=== PATIENT | male | born 2000 | race African-American/Black ===

== ENCOUNTER 2023-04-16 11:56 | Outpatient (OUT) | payer MEDICARE, MEDICAID, SELFPAY ==
[2023-04-16 12:46] LABS: Basophils Percent Auto 0.5 % (0.2-2.0); Eosinophils Percent Auto 0.3 % (0.9-7.0); Hematocrit 32.7 % (42.0-54.0); Hemoglobin 8.5 g/dL (14.0-18.0); Immature Granulocytes Abs Auto 0.02 10^3/uL (0.00-0.03); Immature Granulocytes Pct Auto 0.2 % (0.0-0.5); Lymphocytes Absolute Auto 1.8 10^3/uL (1.2-3.8); Lymphocytes Percent Auto 20.7 % (20.5-60.0); Mean Corpuscular Hemoglobin 15.6 pg (25.9-34.0); Mean Platelet Volume 9.3 fL (9.5-13.5); Monocytes Absolute Auto 0.9 10^3/uL (0.3-0.8); Monocytes Percent Auto 10.2 % (1.7-12.0); Neutrophils Percent Auto 68.1 % (43.0-75.0); Platelet Count 405 10^3/uL (150-450); Red Blood Count 5.44 10^6/uL (4.70-6.10); White Blood Count 8.9 10^3/uL (4.0-11.0)
[2023-04-16 12:59] LABS: Mean Corpuscular Volume 60.1 fL (80.0-94.0); Red Cell Distribution Width 22.6 % (11.0-15.0)
== END 2023-04-16 11:57 ==
LOC: LAB 12:01
PROVIDERS: PCP Family Medicine
DX: Z79.899 Other long term (current) drug therapy (principal)
CPT/HCPCS: 36415; 85025

== ENCOUNTER 2023-05-14 09:09 | Outpatient (OUT) | payer MEDICARE, MEDICAID, SELFPAY ==
[2023-05-14 10:25] LABS: Hematocrit 33.2 % (42.0-54.0); Hemoglobin 8.7 g/dL (14.0-18.0); Mean Corpuscular HGB Conc 26.2 g/dL (29.9-35.2); Mean Corpuscular Hemoglobin 15.7 pg (25.9-34.0); Mean Corpuscular Volume 59.9 fL (80.0-94.0); Platelet Count 377 10^3/uL (150-450); Red Blood Count 5.54 10^6/uL (4.70-6.10); Red Cell Distribution Width 22.2 % (11.0-15.0); White Blood Count 4.6 10^3/uL (4.0-11.0)
[2023-05-14 10:46] LABS: Eosinophils Absolute Manual 0.04 10^3/uL (0.00-0.70); Lymphocytes Absolute Manual 0.82 10^3/uL (1.20-3.80); Monocytes Absolute Manual 0.55 10^3/uL (0.30-0.80); Segmented Neut Absolute Manual 3.08 10^3/uL (1.4-6.5)
[2023-05-14 10:47] LABS: Acanthocytes 1+; Anisocytosis 2+; Hypochromasia 3+; Microcytosis 3+; Ovalocytes 2+
== END 2023-05-14 09:10 | disposition home or self-care (01) ==
LOC: LAB 09:11
PROVIDERS: PCP Family Medicine
DX: Z79.899 Other long term (current) drug therapy (principal)
CPT/HCPCS: 36415; 85007; 85025; 85027

== ENCOUNTER 2023-06-18 10:48 | Outpatient (OUT) | payer MEDICARE, MEDICAID, SELFPAY ==
[2023-06-18 11:33] LABS: Basophils Percent Auto 0.4 % (0.2-2.0); Eosinophils Percent Auto 0.2 % (0.9-7.0); Hematocrit 31.6 % (42.0-54.0); Hemoglobin 8.2 g/dL (14.0-18.0); Immature Granulocytes Abs Auto 0.02 10^3/uL (0.00-0.03); Immature Granulocytes Pct Auto 0.4 % (0.0-0.5); Lymphocytes Absolute Auto 0.9 10^3/uL (1.2-3.8); Lymphocytes Percent Auto 16.3 % (20.5-60.0); Mean Corpuscular HGB Conc 25.9 g/dL (29.9-35.2); Mean Platelet Volume 9.9 fL (9.5-13.5); Monocytes Absolute Auto 0.6 10^3/uL (0.3-0.8); Monocytes Percent Auto 11.4 % (1.7-12.0); Neutrophils Absolute Auto 3.9 10^3/uL (1.4-6.5); Neutrophils Percent Auto 71.3 % (43.0-75.0); Platelet Count 365 10^3/uL (150-450); Red Blood Count 5.13 10^6/uL (4.70-6.10); White Blood Count 5.5 10^3/uL (4.0-11.0)
[2023-06-18 11:37] LABS: Mean Corpuscular Volume 61.6 fL (80.0-94.0); Red Cell Distribution Width 22.6 % (11.0-15.0)
== END 2023-06-18 10:49 | disposition home or self-care (01) ==
PROVIDERS: PCP Family Medicine
DX: Z79.899 Other long term (current) drug therapy (principal)
CPT/HCPCS: 36415; 85025

== ENCOUNTER 2023-07-28 15:38 | Outpatient (OUT) | payer MEDICARE, MEDICAID, SELFPAY ==
[2023-07-28 16:18] LABS: Basophils Percent Auto 0.4 % (0.2-2.0); Eosinophils Percent Auto 0.6 % (0.9-7.0); Hematocrit 33.6 % (42.0-54.0); Hemoglobin 8.7 g/dL (14.0-18.0); Immature Granulocytes Abs Auto 0.01 10^3/uL (0.00-0.03); Immature Granulocytes Pct Auto 0.1 % (0.0-0.5); Lymphocytes Absolute Auto 1.6 10^3/uL (1.2-3.8); Lymphocytes Percent Auto 22.9 % (20.5-60.0); Mean Corpuscular HGB Conc 25.9 g/dL (29.9-35.2); Mean Platelet Volume 8.9 fL (9.5-13.5); Monocytes Absolute Auto 0.7 10^3/uL (0.3-0.8); Monocytes Percent Auto 10.6 % (1.7-12.0); Neutrophils Absolute Auto 4.5 10^3/uL (1.4-6.5); Neutrophils Percent Auto 65.4 % (43.0-75.0); Platelet Count 355 10^3/uL (150-450); Red Blood Count 5.41 10^6/uL (4.70-6.10); Red Cell Distribution Width 21.5 % (11.0-15.0); White Blood Count 6.9 10^3/uL (4.0-11.0)
[2023-07-28 16:19] LABS: Mean Corpuscular Hemoglobin 16.1 pg (25.9-34.0); Mean Corpuscular Volume 62.1 fL (80.0-94.0)
== END 2023-07-28 15:39 | disposition home or self-care (01) ==
LOC: LAB 15:39
PROVIDERS: PCP Family Medicine
DX: Z79.899 Other long term (current) drug therapy (principal)
CPT/HCPCS: 36415; 85025

== ENCOUNTER 2023-09-03 11:34 | Outpatient (OUT) | payer MEDICARE, MEDICAID, SELFPAY ==
[2023-09-03 11:49] LABS: Basophils Percent Auto 0.4 % (0.2-2.0); Eosinophils Percent Auto 0.4 % (0.9-7.0); Hematocrit 33.7 % (42.0-54.0); Hemoglobin 8.8 g/dL (14.0-18.0); Immature Granulocytes Abs Auto 0.05 10^3/uL (0.00-0.03); Immature Granulocytes Pct Auto 0.5 % (0.0-0.5); Lymphocytes Absolute Auto 1.4 10^3/uL (1.2-3.8); Lymphocytes Percent Auto 14.2 % (20.5-60.0); Mean Corpuscular Hemoglobin 16.1 pg (25.9-34.0); Mean Platelet Volume 9.2 fL (9.5-13.5); Monocytes Absolute Auto 1.1 10^3/uL (0.3-0.8); Neutrophils Absolute Auto 7.1 10^3/uL (1.4-6.5); Neutrophils Percent Auto 73.5 % (43.0-75.0); Platelet Count 387 10^3/uL (150-450); Red Blood Count 5.47 10^6/uL (4.70-6.10); White Blood Count 9.6 10^3/uL (4.0-11.0)
[2023-09-03 12:15] LABS: Mean Corpuscular HGB Conc 26.1 g/dL (29.9-35.2); Mean Corpuscular Volume 61.6 fL (80.0-94.0); Red Cell Distribution Width 21.9 % (11.0-15.0)
== END 2023-09-03 11:35 | disposition home or self-care (01) ==
LOC: LAB 11:36
PROVIDERS: PCP Family Medicine
DX: Z79.899 Other long term (current) drug therapy (principal)
CPT/HCPCS: 36415; 85025

== ENCOUNTER 2023-10-11 09:45 | Outpatient (OUT) | payer MEDICARE, MEDICAID, SELFPAY ==
[2023-10-11 10:04] LABS: Basophils Percent Auto 0.5 % (0.2-2.0); Eosinophils Percent Auto 0.2 % (0.9-7.0); Hematocrit 34.6 % (42.0-54.0); Hemoglobin 8.9 g/dL (14.0-18.0); Immature Granulocytes Abs Auto 0.01 10^3/uL (0.00-0.03); Immature Granulocytes Pct Auto 0.2 % (0.0-0.5); Lymphocytes Absolute Auto 1.5 10^3/uL (1.2-3.8); Lymphocytes Percent Auto 26.7 % (20.5-60.0); Mean Corpuscular HGB Conc 25.7 g/dL (29.9-35.2); Mean Platelet Volume 9.7 fL (9.5-13.5); Monocytes Absolute Auto 0.7 10^3/uL (0.3-0.8); Monocytes Percent Auto 12.9 % (1.7-12.0); Neutrophils Absolute Auto 3.3 10^3/uL (1.4-6.5); Neutrophils Percent Auto 59.5 % (43.0-75.0); Platelet Count 313 10^3/uL (150-450); Red Blood Count 5.48 10^6/uL (4.70-6.10); White Blood Count 5.6 10^3/uL (4.0-11.0)
[2023-10-11 10:05] LABS: Mean Corpuscular Hemoglobin 16.2 pg (25.9-34.0)
[2023-10-11 10:06] LABS: Mean Corpuscular Volume 63.1 fL (80.0-94.0); Red Cell Distribution Width 22.2 % (11.0-15.0)
== END 2023-10-11 09:46 | disposition home or self-care (01) ==
PROVIDERS: PCP Family Medicine
DX: Z79.899 Other long term (current) drug therapy (principal)
CPT/HCPCS: 36415; 85025

== ENCOUNTER 2023-11-26 15:49 | Outpatient (OUT) | payer MEDICARE, MEDICAID, SELFPAY ==
--- OUTSIDE RECORDS SUMMARY | 2023-11-26 15:55 | XMS_ITS | CCD ---
Author Name Unknown Address [email or web address] [place] [address] Organization [facility] Care Team Providers Care Overhead Foreman Name Role Phone Salam, Shaw Unavailable Unavailable Salam, Shaw Unavailable Unavailable Salam, Shaw Unavailable Unavailable NADERER, ANGEL~[phone] UNKNOWN Unavailable Unavailable Salam, Shaw Unavailable Unavailable Salam, Shaw Unavailable Unavailable Salam, Shaw Unavailable Unavailable NADERER, ANGEL~[phone] UNKNOWN Unavailable Unavailable Unavailable Primary Care Provider Unavailabl e MISC, DR DOCTOR Attending Unavailable MISC, DR DOCTOR Admitting Unavailable MISC, DR DOCTOR Consulting Unavailable NADERER, DR ORTIZ A Primary Care Unavailable MISC, DR VALDOVINOS Consulting Unavailable MISC, DOCTOR Attending Unavailable NADERER, DR ORTIZ A Primary Care Unavailable MISC, DOCTOR Admitting Unavailable MISC, DOCTOR Attending Unavailable MISC, DR VALDOVINOS Admitting Unavailable MISC, DR DOCTOR Consulting Unavailable NADERER, DR ORTIZ A Primary Care Unavailable MISC, DR DOCTOR Attending Unavailable MISC, DOCTOR Admitting Unavailable MISC, DOCTOR Consulting Unavailable NADERER, DR ORTIZ A Primary Care Unavailable MISC, DOCTOR Attending Unavailable MISC, DOCTOR Admitting Unavailable MISC, DOCTOR Consulting Unavailable NADERERoxana, DR ORTIZ A Primary Care Unavailable MISC, DOCTOR Consulting Unavailable NADERER, DR ORTIZ A Primary Care Unavailable MISC, DOCTOR Admitting Unavailable MISC, DOCTOR Attending Unavailable MISC, DOCTOR Consulting Unavailable NADERER, DR ANGEL Gregory Attending Unavailable NADERER, DR ORTIZ A Admitting Unavailable NADERER, DR ORTIZ A Primary Care Unavailable MISC, DOCTOR Consulting Unavailable NADERER, DR ORTIZ A Primary Care Unavailable MISC, DR DOCTOR Admitting Unavailable MISC, DOCTOR Attending Unavailable MISC, DOCTOR Consulting Unavailable NADERER, DR ANGEL Gregory Attending Unavailable NADERER, DR ANGEL Gregory Admitting Unavailable NADERER, DR ANGEL Gregory Primary Care Unavailable MISC, DR VALDOVINOS Consulting Unavailable NADERERoxana, DR ANGEL Gregory Attending Unavailable NADERER, DR ANGEL Gregory Admitting Unavailable NADERER, DR ANGEL Gregory Primary Care Unavailable MISC, DR VALDOVINOS Consulting Unavailable NADERERoxana, DR ANGEL Gregory Primary Care Unavailable MISC, DOCTOR Admitting Unavailable MISC, DOCTOR Attending Unavailable MISC, DOCTOR Attending Unavailable MISC, DOCTOR Admitting Unavailable MISC, DR VALDOVINOS Consulting Unavailable NADERERoxana, DR ANGEL Gregory Primary Care Unavailable Jean Carlos Hdez Attending Unavailab Jean Carlos Powell Admitting Unavailab le NO FAMILY, PHYSICIAN Primary Care Unavailable Allergies Allergy Classification Reported Allergen(s) Allergy Type Date of Onset Reaction(s) Facility (1 source) No Known Medication Allergies; Translations: [No Known Medication Allergies] Propensity to adverse reactions (disorder) [facility] Repository Medications Current Medications Medication Drug Class(es) Dates Sig (Normalized) Sig (Original) Magnesium Carbonate powd (3 sources) Start: 03-28-2022 End: 06-26-2022 Magnesium Carbonate powd 4 g daily at bedtime. Used for constipation 28 g 3 03/28/2022 06/26/2022 Active Comment on above: 4 g daily at bedtime . Used for constipation Completed/Discontinued Medications Medication Drug Class(es) Dates Sig (Normalized) Sig (Original) acetaminophen 325 mg oral tablet (3 sources) Start: 10-17-2021 take 2 tablets by mouth every six hours acetaminophen (TYLENOL) 325 mg tablet Take 2 tablets by mouth every 6 hours. 0 10/17/2021 Active Comment on above: Take 2 tablets by [facility] every 6 hours. benztropine mesylate 2 mg oral tablet (3 sources) Anticholinergic, Antihistamine take 1 tablet by mouth twice daily benztropine (COGENTIN) 2 mg tablet Take 2 mg by mouth twice daily. 0 Active Comment on above: Take 2 mg by mouth t wice daily. calcium polycarbophil 625 mg oral tablet (3 sources) calcium polycarbophil (FIBERCON) 625 mg tablet Take 625 mg by mouth. 0 Active Comment on above: Take 625 mg by mouth . clonazePAM 1 mg oral tablet (3 sources) Benzodiazepine take 1 tablet by mouth every twelve hours as needed clonazePAM (KLONOPIN) 1 mg tablet Take 1 mg by mouth twice daily as needed. 0 Active Comment on above: Take 1 mg by mouth t wice daily as needed. cloZAPine 100 mg oral tablet (3 sources) Atypical Antipsychotic Start: 06-07-2021 cloZAPine (CLOZARIL) 100 mg tablet docusate sodium 100 mg oral capsule (3 sources) take 1 capsule by mouth twice daily docusate sodium (COLACE) 100 mg capsule Take 100 mg by mouth twice daily. 0 Active Comment on above: Take 100 mg by mouth twice daily. FLUoxetine 40 mg oral capsule (3 sources) Serotonin Reuptake Inhibitor take 1 capsule by mouth once daily FLUoxetine HCl (PROZAC) 40 mg capsule Take 40 mg by mouth once daily. 0 Active Comment on above: Take 40 mg by mouth once daily. haloperidol 10 mg oral tablet (3 sources) Typical Antipsychotic take 1 tablet by mouth four times daily haloperidol (HALDOL) 10 mg tablet Take 10 mg by mouth four times daily. 0 Active Comment on above: Take 10 mg by mouth four times daily. ibuprofen 200 mg oral tablet (3 sources) Nonsteroidal Anti-inflammatory Drug Start: 10-17-2021 take 2 tablets by mouth every four hours as needed ibuprofen (MOTRIN) 200 mg tablet Take 2 tablets by mouth every 4 hours as needed for pain. 0 10/17/2021 Active Comment on above: Take 2 tablets by mo ut every 4 hours as needed for pain. loratadine 10 mg oral tablet (3 sources) loratadine (CLARITIN) 10 mg tablet Take 10 mg by mouth. 0 Active Comment on above: Take 10 mg by mouth. polyethylene glycol 3350 67549 mg powder for oral solution (3 sources) Osmotic Laxative Start: 06-02-2018 take 1 dose by mouth once daily polyethylene glycol 3350 (MIRALAX) 17 gram packet Indications: Rectal ulcer Take 1 Packet by mouth once daily. 30 Packet 5 06/02/2018 Active Comment on above: Take 1 Packet by claribel th once daily. risperiDONE 1 mg oral tablet (3 sources) Atypical Antipsychotic risperiDONE (RISPERDAL) 1 mg tablet Take 1 mg by mouth. 0 Active Comment on above: Take 1 mg by mouth. 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] Onset: 02-19-2023 Episodic Schizophrenia and other psychotic disorders (3 sources) Schizophrenia; Translations: [Schizophrenia, unspecified] Onset: 07-10-2021 07-10-2021 Chronic Past or Other Problems Problem Classification Problem Date Documented Date Episodic/Chronic Hemorrhoids (3 sources) Hemorrhoids; Translations: [Unspecified hemorrhoids] Onset: 10-17-2021 10-17-2021 Episodic Other nutritional; endocrine; and metabolic disorders (3 sources) Developmental delay; Translations: [Unspecified lack of expected normal physiological development in childhood] Onset: 07-10-2021 07-10-2021 Episodic Results Test Name Value Interpretation Reference Range Facility CBC AUTO DIFFon 03-26-2023 BASO # 0.0 103/ul Normal 0.0-0.1 [facility] Comment on above: Performed By: #### C BC #### [facility] [address] [place] [address] Dr. Sonido Bejarano Basophils/100 WBC (Bld) 0.7 % Normal 0.2-2.0 [facility] Comment on above: Performed By: #### C BC #### [facility] [address] [place] [address] Dr. Sonido Bejarano EO # 0.1 103/ul Normal 0.0-0.7 [facility] Comment on above: Performed By: #### C BC #### [facility] [address] [place] [address] Dr. Sonido Bejarano Eosinophils/100 WBC (Bld) 1.0 % Normal 0.9-7.0 [facility] Comment on above: Performed By: #### C BC #### [facility] [address] [place] [address] Dr. Sonido Bejarano Erythrocyte distribution width (RBC) [Ratio] 22.3 % Critically high 11.0-15.0 [facility] Comment on above: Performed By: #### C BC #### [facility] [address] [place] [address] Dr. Sonido Bejarano Hematocrit (Bld) [Volume fraction] 32.0 % Critically low 42.0-54.0 [facility] Comment on above: Performed By: #### C BC #### [facility] [address] [place] [address] Dr. Sonido Bejarano Hemoglobin (Bld) [Mass/Vol] 8.3 g/dL Critically low 14.0-18.0 [facility] Comment on above: Performed By: #### C BC #### [facility] [address] [place] [address] Dr. Sonido Bejarano IG # 0.01 10e3/ul Normal 0.00-0.03 [facility] Comment on above: Performed By: #### C BC #### [facility] [address] [place] [address] Dr. Sonido Bejarano IG % 0.2 % Normal 0.0-0.5 [facility] Comment on above: Performed By: #### C BC #### [facility] [address] [place] [address] Dr. Sonido Bejarano LYMPH # 1.2 103/ul Normal 1.2-3.8 [facility] Comment on above: Performed By: #### C BC #### [facility] [address] [place] [address] Dr. Sonido Bejarano Lymphocytes/100 WBC (Bld) 20.1 % Critically low 20.5-60.0 [facility] Comment on above: Performed By: #### C BC #### [facility] [address] [place] [address] Dr. Sonido Bejarano MANUAL DIFF REQ NO Normal [facility] Comment on above: Performed By: #### C BC #### [facility] [address] [place] [address] Dr. Sonido Bejarano MCH (RBC) [Entitic mass] 15.7 pg Critically low 25.9-34.0 [facility] Comment on above: Performed By: #### C BC #### [facility] [address] [place] [address] Dr. Sonido Bejarano MCHC (RBC) [Mass/Vol] 25.9 g/dL Critically low 29.9-35.2 [facility] Comment on above: Performed By: #### C BC #### [facility] [address] [place] [address] Dr. Sonido Bejarano MCV (RBC) [Entitic vol] 60.6 fL Critically low 80.0-94.0 [facility] Comment on above: Performed By: #### C BC #### [facility] [address] [address] [address] Sonido Bejarano MONO # 0.7 103/ul Normal 0.3-0.8 [facility] Comment on above: Performed By: #### C BC #### [facility] [address] [place] [address] Dr. Sonido Bejarano Monocytes/100 WBC (Bld) 12.2 % Critically high 1.7-12.0 [facility] Comment on above: Performed By: #### C BC #### [facility] [address] [place] [address] Dr. Sonido Bejarano NEUT # 3.8 103/ul Normal 1.4-6.5 [facility] Comment on above: Performed By: #### C BC #### [facility] [address] [place] [address] Dr. Sonido Bejarano Neutrophils/100 WBC (Bld) 65.8 % Normal 43.0-75.0 [facility] Comment on above: Performed By: #### C BC #### [facility] [address] [place] [address] Dr. Sonido Bejarano Platelet mean volume (Bld) [Entitic vol] 9.2 fL Critically low 9.5-13.5 [facility] Comment on above: Performed By: #### C BC #### [facility] [address] [place] [address] Dr. Sonido Bejarano PLT 369 103/ul Normal 150-450 [facility] Comment on above: Performed By: #### C BC #### [facility] [address] [place] [address] Dr. Sonido Bejarano RBC 5.28 106/ul Normal 4.70-6.10 [facility] Comment on above: Performed By: #### C BC #### [facility] [address] [place] [address] Dr. Sonido Bejarano WBC 5.8 103/ul Normal 4.0-11.0 [facility] Comment on above: Performed By: #### C BC #### [facility] [address] [place] [address] Dr. Sonido Bejarano CBC AUTO DIFFon 02-19-2023 BASO # 0.0 103/ul Normal 0.0-0.1 [facility] Comment on above: Performed By: #### C BC #### [facility] [address] [place] [address] Dr. Sonido Bejarano Basophils/100 WBC (Bld) 0.7 % Normal 0.2-2.0 [facility] Comment on above: Performed By: #### C BC #### [facility] [address] [place] [address] Dr. Sonido Bejarano EO # 0.1 103/ul Normal 0.0-0.7 [facility] Comment on above: Performed By: #### C BC #### [facility] [address] [place] [address] Dr. Sonido Bejarano Eosinophils/100 WBC (Bld) 1.1 % Normal 0.9-7.0 [facility] Comment on above: Performed By: #### C BC #### [facility] [address] [place] [address] Dr. Sonido Bejarano Erythrocyte distribution width (RBC) [Ratio] 22.7 % Critically high 11.0-15.0 [facility] Comment on above: Performed By: #### C BC #### [facility] [address] [place] [address] Dr. Sonido Bejarano Hematocrit (Bld) [Volume fraction] 32.9 % Critically low 42.0-54.0 [facility] Comment on above: Performed By: #### C BC #### [facility] [address] [place] [address] Dr. Sonido Bejarano Hemoglobin (Bld) [Mass/Vol] 8.2 g/dL Critically low 14.0-18.0 [facility] Comment on above: Performed By: #### C BC #### [facility] [address] [place] [address] Dr. Sonido Bejarano IG # 0.02 10e3/ul Normal 0.00-0.03 [facility] Comment on above: Performed By: #### C BC #### [facility] [address] [place] [address] Dr. Sonido Bejarano IG % 0.3 % Normal 0.0-0.5 [facility] Comment on above: Performed By: #### C BC #### [facility] [address] [place] [address] Dr. Sonido Bejarano LYMPH # 1.4 103/ul Normal 1.2-3.8 [facility] Comment on above: Performed By: #### C BC #### [facility] [address] [place] [address] Dr. Sonido Bejarano Lymphocytes/100 WBC (Bld) 22.8 % Normal 20.5-60.0 [facility] Comment on above: Performed By: #### C BC #### [facility] [address] [place] [address] Dr. Sonido Bejarano MANUAL DIFF REQ NO Normal [facility] Comment on above: Performed By: #### C BC #### [facility] [address] [place] [address] Dr. Sonido Bejarano MCH (RBC) [Entitic mass] 15.3 pg Critically low 25.9-34.0 [facility] Comment on above: Performed By: #### C BC #### [facility] [address] [place] [address] Dr. Sonido Bejarano MCHC (RBC) [Mass/Vol] 24.9 g/dL Critically low 29.9-35.2 [facility] Comment on above: Performed By: #### C BC #### [facility] [address] [place] [address] Dr. Sonido Bejarano MCV (RBC) [Entitic vol] 61.3 fL Critically low 80.0-94.0 [facility] Comment on above: Performed By: #### C BC #### [facility] [address] [place] [address] Dr. Sonido Bejarano MONO # 0.7 103/ul Normal 0.3-0.8 [facility] Comment on above: Performed By: #### C BC #### [facility] [address] [place] [address] Dr. Sonido Bejarano Monocytes/100 WBC (Bld) 11.6 % Normal 1.7-12.0 [facility] Comment on above: Performed By: #### C BC #### [facility] [address] [place] [address] Dr. Sonido Bejarano NEUT # 3.9 103/ul Normal 1.4-6.5 [facility] Comment on above: Performed By: #### C BC #### [facility] [address] [place] [address] Dr. Sonido Bejarano Neutrophils/100 WBC (Bld) 63.5 % Normal 43.0-75.0 [facility] Comment on above: Performed By: #### C BC #### [facility] [address] [place] [address] Dr. Sonido eBjarano Platelet mean volume (Bld) [Entitic vol] 9.3 fL Critically low 9.5-13.5 [facility] Comment on above: Performed By: #### C BC #### [facility] [address] [place] [address] Dr. Sonido Bejarano PLT 394 103/ul Normal 150-450 [facility] Comment on above: Performed By: #### C BC #### [facility] [address] [place] [address] Dr. Sonido Bejarano RBC 5.37 106/ul Normal 4.70-6.10 [facility] Comment on above: Performed By: #### C BC #### [facility] [address] [place] [address] Dr. Sonido Bejarano WBC 6.1 103/ul Normal 4.0-11.0 [facility] Comment on above: Performed By: #### C BC #### [facility] [address] [address] [address] Sonido Bejarano CBC AUTO DIFFon 01-15-2023 BASO # 0.0 103/ul Normal 0.0-0.1 [facility] Comment on above: Performed By: #### C BC #### [facility] [address] [address] [address] Sonido Bejarano Basophils/100 WBC (Bld) 0.3 % Normal 0.2-2.0 [facility] Comment on above: Performed By: #### C BC #### [facility] [address] [address] [address] Sonido Bejarano EO # 0.0 103/ul Normal 0.0-0.7 [facility] Comment on above: Performed By: #### C BC #### [facility] [address] [place] [address] Dr. Sonido Bejarano Eosinophils/100 WBC (Bld) 0.4 % Critically low 0.9-7.0 [facility] Comment on above: Performed By: #### C BC #### [facility] [address] [place] [address] Dr. Sonido Bejarano Erythrocyte distribution width (RBC) [Ratio] 22.4 % Critically high 11.0-15.0 [facility] Comment on above: Performed By: #### C BC #### [facility] [address] [place] [address] Dr. Sonido Bejarano Hematocrit (Bld) [Volume fraction] 31.5 % Critically low 42.0-54.0 [facility] Comment on above: Performed By: #### C BC #### [facility] [address] [place] [address] Dr. Sonido Bejarano Hemoglobin (Bld) [Mass/Vol] 8.1 g/dL Critically low 14.0-18.0 [facility] Comment on above: Performed By: #### C BC #### [facility] [address] [place] [address] Dr. Sonido Bejarano IG # 0.02 10e3/ul Normal 0.00-0.03 [facility] Comment on above: Performed By: #### C BC #### [facility] [address] [address] [address] Sonido Bejarano IG % 0.3 % Normal 0.0-0.5 [facility] Comment on above: Performed By: #### C BC #### [facility] [address] [address] [address] Sonido Bejarano LYMPH # 1.3 103/ul Normal 1.2-3.8 [facility] Comment on above: Performed By: #### C BC #### [facility] [address] [place] [address] Dr. Sonido Bejarano Lymphocytes/100 WBC (Bld) 19.4 % Critically low 20.5-60.0 [facility] Comment on above: Performed By: #### C BC #### [facility] [address] [place] [address] Dr. Sonido Bejarano MANUAL DIFF REQ NO Normal [facility] Comment on above: Performed By: #### C BC #### [facility] [address] [place] [address] Dr. Sonido Bejarano MCH (RBC) [Entitic mass] 15.5 pg Critically low 25.9-34.0 [facility] Comment on above: Performed By: #### C BC #### [facility] [address] [place] [address] Dr. Sonido Bejarano MCHC (RBC) [Mass/Vol] 25.7 g/dL Critically low 29.9-35.2 [facility] Comment on above: Performed By: #### C BC #### [facility] [address] [place] [address] Dr. Sonido Bejarano MCV (RBC) [Entitic vol] 60.2 fL Critically low 80.0-94.0 [facility] Comment on above: Performed By: #### C BC #### [facility] [address] [place] [address] Dr. Sonido Bejarano MONO # 0.9 103/ul Critically high 0.3-0.8 [facility] Comment on above: Performed By: #### C BC #### [facility] [address] [place], [place] [address] Dr. Sonido Bejarano Monocytes/100 WBC (Bld) 12.9 % Critically high 1.7-12.0 [facility] Comment on above: Performed By: #### C BC #### [facility] [address] [address] [address] Sonido Bejarano NEUT # 4.5 103/ul Normal 1.4-6.5 [facility] Comment on above: Performed By: #### C BC #### [facility] [address] [address] [address] Sonido Bejarano Neutrophils/100 WBC (Bld) 66.7 % Normal 43.0-75.0 [facility] Comment on above: Performed By: #### C BC #### [facility] [address] [place] [address] Dr. Sonido Bejarano Platelet mean volume (Bld) [Entitic vol] 9.2 fL Critically low 9.5-13.5 [facility] Comment on above: Performed By: #### C BC #### [facility] [address] [address] [address] Sonido Bejarano PLT 356 103/ul Normal 150-450 [facility] Comment on above: Performed By: #### C BC #### [facility] [address] [place] [address] Dr. Sonido Bejarano RBC 5.23 106/ul Normal 4.70-6.10 [facility] Comment on above: Result Comment: 2+ P OIKILOCYTOSIS 2+ ANISOCYTOSIS 2+ OVALOCYTE 1+ TEAR DROP CELL 2+ ACANTHOCYTE Performed By: #### C BC #### [facility] [address] [place] [address] Dr. Sonido Bejarano WBC 6.8 103/ul Normal 4.0-11.0 [facility] Comment on above: Performed By: #### C BC #### [facility] [address] [address] [address] Sonido Bejarano CBC AUTO DIFFon 02-24-2023 BASO # 0.0 103/ul Normal 0.0-0.1 [facility] Comment on above: Performed By: #### C BC #### [facility] [address] [place] [address] Dr. Sonido Bejarano Basophils/100 WBC (Bld) 0.5 % Normal 0.2-2.0 [facility] Comment on above: Performed By: #### C BC #### [facility] [address] [place] [address] Dr. Sonido Bejarano EO # 0.1 103/ul Normal 0.0-0.7 [facility] Comment on above: Performed By: #### C BC #### [facility] [address] [place] [address] Dr. Sonido Bejarano Eosinophils/100 WBC (Bld) 1.3 % Normal 0.9-7.0 [facility] Comment on above: Performed By: #### C BC #### [facility] [address] [place] [address] Dr. Sonido Bejarano Erythrocyte distribution width (RBC) [Ratio] 22.8 % Critically high 11.0-15.0 [facility] Comment on above: Performed By: #### C BC #### [facility] [address] [place] [address] Dr. Sonido Bejarano Hematocrit (Bld) [Volume fraction] 34.5 % Critically low 42.0-54.0 [facility] Comment on above: Performed By: #### C BC #### [facility] [address] [place] [address] Dr. Sonido Bejarano Hemoglobin (Bld) [Mass/Vol] 8.9 g/dL Critically low 14.0-18.0 [facility] Comment on above: Performed By: #### C BC #### [facility] [address] [place] [address] Dr. Sonido Bejarano IG # 0.01 10e3/ul Normal 0.00-0.03 [facility] Comment on above: Performed By: #### C BC #### [facility] [address] [place] [address] Dr. oSnido Bejarano IG % 0.2 % Normal 0.0-0.5 [facility] Comment on above: Performed By: #### C BC #### [facility] [address] [place] [address] Dr. Sonido Bejarano LYMPH # 1.0 103/ul Critically low 1.2-3.8 [facility] Comment on above: Performed By: #### C BC #### [facility] [address] [place] [address] Dr. Sonido Bejarano Lymphocytes/100 WBC (Bld) 18.3 % Critically low 20.5-60.0 [facility] Comment on above: Performed By: #### C BC #### [facility] [address] [place] [address] Dr. Sonido Bejarano MANUAL DIFF REQ NO Normal [facility] Comment on above: Performed By: #### C BC #### [facility] [address] [place] [address] Dr. Sonido Bejarano MCH (RBC) [Entitic mass] 15.6 pg Critically low 25.9-34.0 [facility] Comment on above: Performed By: #### C BC #### [facility] [address] [place] [address] Dr. Sonido Bejarano MCHC (RBC) [Mass/Vol] 25.8 g/dL Critically low 29.9-35.2 [facility] Comment on above: Performed By: #### C BC #### [facility] [address] [place] [address] Dr. Sonido Bejarano MCV (RBC) [Entitic vol] 60.6 fL Critically low 80.0-94.0 [facility] Comment on above: Performed By: #### C BC #### [facility] [address] [place] [address] Dr. Sonido Bejarano MONO # 0.7 103/ul Normal 0.3-0.8 [facility] Comment on above: Performed By: #### C BC #### [facility] [address] [place] [address] Dr. Sonido Bejarano Monocytes/100 WBC (Bld) 13.2 % Critically high 1.7-12.0 [facility] Comment on above: Performed By: #### C BC #### [facility] [address] [place] [address] Dr. Sonido Bejarano NEUT # 3.7 103/ul Normal 1.4-6.5 [facility] Comment on above: Performed By: #### C BC #### [facility] [address] [place] [address] Dr. Sonido Bejarano Neutrophils/100 WBC (Bld) 66.5 % Normal 43.0-75.0 [facility] Comment on above: Performed By: #### C BC #### [facility] [address] [place] [address] Dr. Sonido Bejarano Platelet mean volume (Bld) [Entitic vol] 9.6 fL Normal 9.5-13.5 [facility] Comment on above: Performed By: #### C BC #### [facility] [address] [place] [address] Dr. Sonido Bejarano PLT 441 103/ul Normal 150-450 [facility] Comment on above: Performed By: #### C BC #### [facility] [address] [place] [address] Dr. Sonido Bejarano RBC 5.69 106/ul Normal 4.70-6.10 [facility] Comment on above: Result Comment: Anis ocytosis 2+ Hypochromasia 2+ Poikilocytosis 2+ Ovalocytes 1+ Tear drop cells 1+ Acanthocytes 1+ Performed By: #### C BC #### [facility] [address] [place] [address] Dr. Sonido Bejarano WBC 5.5 103/ul Normal 4.0-11.0 [facility] Comment on above: Performed By: #### C BC #### [facility] [address] [place] [address] Dr. Sonido Bejarano CBC AUTO DIFFon 11-20-2022 BASO # 0.1 103/ul Normal 0.0-0.1 [facility] Comment on above: Performed By: #### C BC #### [facility] [address] [place] [address] Dr. Sonido Bejarano Basophils/100 WBC (Bld) 1.0 % Normal 0.2-2.0 [facility] Comment on above: Performed By: #### C BC #### [facility] [address] [place] [address] Dr. Sonido Bejarano EO # 0.1 103/ul Normal 0.0-0.7 [facility] Comment on above: Performed By: #### C BC #### [facility] [address] [place] [address] Dr. Sonido Bejarano Eosinophils/100 WBC (Bld) 2.1 % Normal 0.9-7.0 [facility] Comment on above: Performed By: #### C BC #### [facility] [address] [place] [address] Dr. Sonido Bejarano Erythrocyte distribution width (RBC) [Ratio] 23.0 % Critically high 11.0-15.0 [facility] Comment on above: Performed By: #### C BC #### [facility] [address] [place] [address] Dr. oSnido Bejarano Hematocrit (Bld) [Volume fraction] 32.6 % Critically low 42.0-54.0 [facility] Comment on above: Performed By: #### C BC #### [facility] [address] [place] [address] Dr. Sonido Bejarano Hemoglobin (Bld) [Mass/Vol] 8.0 g/dL Critically low 14.0-18.0 [facility] Comment on above: Performed By: #### C BC #### [facility] [address] [place] [address] Dr. Sonido Bejarano IG # 0.01 10e3/ul Normal 0.00-0.03 [facility] Comment on above: Performed By: #### C BC #### [facility] [address] [place] [address] Dr. Sonido Bejarano IG % 0.2 % Normal 0.0-0.5 [facility] Comment on above: Performed By: #### C BC #### [facility] [address] [place] [address] Dr. Sonido Bejarano LYMPH # 1.1 103/ul Critically low 1.2-3.8 [facility] Comment on above: Performed By: #### C BC #### [facility] [address] [place] [address] Dr. Sonido Bejarano Lymphocytes/100 WBC (Bld) 22.0 % Normal 20.5-60.0 [facility] Comment on above: Performed By: #### C BC #### [facility] [address] [place] [address] Dr. Sonido Bejarano MANUAL DIFF REQ NO Normal [facility] Comment on above: Performed By: #### C BC #### [facility] [address] [place] [address] Dr. Sonido Bejarano MCH (RBC) [Entitic mass] 15.6 pg Critically low 25.9-34.0 [facility] Comment on above: Performed By: #### C BC #### [facility] [address] [place] [address] Dr. Sonido Bejarano MCHC (RBC) [Mass/Vol] 24.5 g/dL Critically low 29.9-35.2 [facility] Comment on above: Performed By: #### C BC #### [facility] [address] [place] [address] Dr. Sonido Bejarano MCV (RBC) [Entitic vol] 63.4 fL Critically low 80.0-94.0 [facility] Comment on above: Performed By: #### C BC #### [facility] [address] [place] [address] Dr. Sonido Bejarano MONO # 0.6 103/ul Normal 0.3-0.8 [facility] Comment on above: Performed By: #### C BC #### [facility] [address] [place] [address] Dr. Sonido Bejarano Monocytes/100 WBC (Bld) 13.0 % Critically high 1.7-12.0 [facility] Comment on above: Performed By: #### C BC #### [facility] [address] [place] [address] Dr. Sonido Bejarano NEUT # 3.0 103/ul Normal 1.4-6.5 [facility] Comment on above: Performed By: #### C BC #### [facility] [address] [place] [address] Dr. Sonido Bjearano Neutrophils/100 WBC (Bld) 61.7 % Normal 43.0-75.0 [facility] Comment on above: Performed By: #### C BC #### [facility] [address] [place] [address] Dr. Sonido Bejarano Platelet mean volume (Bld) [Entitic vol] 8.6 fL Critically low 9.5-13.5 [facility] Comment on above: Performed By: #### C BC #### [facility] [address] [place] [address] Dr. Sonido Bejarano PLT 333 103/ul Normal 150-450 [facility] Comment on above: Performed By: #### C BC #### [facility] [address] [place] [address] Dr. Sonido Bejarano RBC 5.14 106/ul Normal 4.70-6.10 [facility] Comment on above: Performed By: #### C BC #### [facility] [address] [place] [address] Dr. Sonido Bejarano WBC 4.9 103/ul Normal 4.0-11.0 [facility] Comment on above: Performed By: #### C BC #### [facility] [address] [place] [address] Dr. Sonido Bejarano CBC AUTO DIFFon 10-11-2022 BASO # 0.0 103/ul Normal 0.0-0.1 [facility] Comment on above: Performed By: #### C BC #### [facility] [address] [place] [address] Dr. Sonido Bejarano Basophils/100 WBC (Bld) 0.8 % Normal 0.2-2.0 [facility] Comment on above: Performed By: #### C BC #### [facility] [address] [place] [address] Dr. Sonido Bejarano EO # 0.1 103/ul Normal 0.0-0.7 [facility] Comment on above: Performed By: #### C BC #### [facility] [address] [place] [address] Dr. Sonido Bejarano Eosinophils/100 WBC (Bld) 1.5 % Normal 0.9-7.0 [facility] Comment on above: Performed By: #### C BC #### [facility] [address] [place] [address] Dr. Sonido Bejarano Erythrocyte distribution width (RBC) [Ratio] 22.4 % Critically high 11.0-15.0 [facility] Comment on above: Performed By: #### C BC #### [facility] [address] [place] [address] Dr. Sonido Bejarano Hematocrit (Bld) [Volume fraction] 32.3 % Critically low 42.0-54.0 [facility] Comment on above: Performed By: #### C BC #### [facility] [address] [place] [address] Dr. Sonido Bejarano Hemoglobin (Bld) [Mass/Vol] 8.1 g/dL Critically low 14.0-18.0 [facility] Comment on above: Performed By: #### C BC #### [facility] [address] [place] [address] Dr. Sonido Bejarano IG # 0.01 10e3/ul Normal 0.00-0.03 [facility] Comment on above: Performed By: #### C BC #### [facility] [address] [place] [address] Dr. Sonido Bejarano IG % 0.2 % Normal 0.0-0.5 [facility] Comment on above: Performed By: #### C BC #### [facility] [address] [place] [address] Dr. Sonido Bejarano LYMPH # 1.2 103/ul Normal 1.2-3.8 [facility] Comment on above: Performed By: #### C BC #### [facility] [address] [place] [address] Dr. Sonido Bejarano Lymphocytes/100 WBC (Bld) 22.8 % Normal 20.5-60.0 [facility] Comment on above: Performed By: #### C BC #### [facility] [address] [place] [address] Dr. Sonido Bejarano MANUAL DIFF REQ NO Normal [facility] Comment on above: Performed By: #### C BC #### [facility] [address] [place] [address] Dr. Sonido Bejarano MCH (RBC) [Entitic mass] 15.1 pg Critically low 25.9-34.0 [facility] Comment on above: Performed By: #### C BC #### [facility] [address] [place] [address] Dr. Sonido Bejarano MCHC (RBC) [Mass/Vol] 25.1 g/dL Critically low 29.9-35.2 [facility] Comment on above: Performed By: #### C BC #### [facility] [address] [place] [address] Dr. Sonido Bejarano MCV (RBC) [Entitic vol] 60.0 fL Critically low 80.0-94.0 [facility] Comment on above: Performed By: #### C BC #### [facility] [address] [place] [address] Dr. Sonido Bejarano MONO # 0.7 103/ul Normal 0.3-0.8 [facility] Comment on above: Performed By: #### C BC #### [facility] [address] [place] [address] Dr. Sonido Bejarano Monocytes/100 WBC (Bld) 12.5 % Critically high 1.7-12.0 [facility] Comment on above: Performed By: #### C BC #### [facility] [address] [place] [address] Dr. Sonido Bejarano NEUT # 3.2 103/ul Normal 1.4-6.5 [facility] Comment on above: Performed By: #### C BC #### [facility] [address] [place] [address] Dr. Sonido Bejarano Neutrophils/100 WBC (Bld) 62.2 % Normal 43.0-75.0 [facility] Comment on above: Performed By: #### C BC #### [facility] [address] [place] [address] Dr. Sonido Bejarano Platelet mean volume (Bld) [Entitic vol] 8.6 fL Critically low 9.5-13.5 [facility] Comment on above: Performed By: #### C BC #### [facility] [address] [place] [address] Dr. Sonido Bejarano PLT 345 103/ul Normal 150-450 [facility] Comment on above: Performed By: #### C BC #### [facility] [address] [place] [address] Dr. Sonido Bejarano RBC 5.38 106/ul Normal 4.70-6.10 [facility] Comment on above: Performed By: #### C BC #### [facility] [address] [place] [address] Dr. Sonido Bejarano WBC 5.2 103/ul Normal 4.0-11.0 [facility] Comment on above: Performed By: #### C BC #### [facility] [address] [place] [address] Dr. Sonido Bejarano CBC W MANUAL DIFFon 09-18-20 ANISOCYTOSIS 3+ Normal [facility] Comment on above: Performed By: #### C BCMAN #### [facility] [address] [place] [address] Dr. Sonido Bejarano ATYPICAL LYMPH # Normal [facility] Comment on above: Performed By: #### C BCMAN #### [facility] [address] [place] [address] Dr. Sonido Bejarano ATYPICAL LYMPH % Normal [facility] Comment on above: Performed By: #### C BCMAN #### [facility] [address] [place] [address] Dr. Sonido Bejarano BAND # Normal 0.0-0.3 [facility] Comment on above: Performed By: #### C BCMAN #### [facility] [address] [place] [address] Dr. Sonido Bejarano BAND % Normal 0-5 [facility] Comment on above: Performed By: #### C BCMAN #### [facility] [address] [place] [address] Dr. Sonido Bejarano BASOM # 0.00 103/ul Normal 0.00-0.10 [facility] Comment on above: Performed By: #### C BCKATHERINE #### [facility] [address] [place] [address] Dr. Sonido Bejarano BASOM % 0.0 % Critically low 0.2-2.0 [facility] Comment on above: Performed By: #### C BCKATHERINE #### [facility] [address] [place] [address] Dr. Sonido Bejarano BLAST # Normal [facility] Comment on above: Performed By: #### C RAMILA #### [facility] [address] [place] [address] Dr. Sonido Bejarano BLAST % Normal [facility] Comment on above: Performed By: #### C RAMILA #### [facility] [address] [place] [address] Dr. Sonido Bejarano CORRECTED WBC Normal 4.0-11.0 [facility] Comment on above: Performed By: #### C BCKATHERINE #### [facility] [address] [place] [address] Dr. Sonido Bejarano EOS # 0.08 103/ul Normal 0.00-0.70 [facility] Comment on above: Performed By: #### C BCKATHERINE #### [facility] [address] [place] [address] Dr. Sonido Bejarano EOS% 2.0 % Normal 0.9-7.0 [facility] Comment on above: Performed By: #### C RAMILA #### [facility] [address] [place] [address] Dr. Sonido Bejarano HCT 31.1 % Critically low 42.0-54.0 [facility] Comment on above: Performed By: #### C BCKATHERINE #### [facility] [address] [place] [address] Dr. Sonido Bejarano HGB 8.3 g/dl Critically low 14.0-18.0 [facility] Comment on above: Performed By: #### C RAMILA #### [facility] [address] [address] [address] Sonido Bejarano HYPOCHROMASIA SLIGHT Normal [facility] Comment on above: Performed By: #### C RAMILA #### [facility] [address] [address] [address] Sonido Bejarano LYMPHM # 1.13 103/ul Critically low 1.20-3.80 [facility] Comment on above: Performed By: #### C RAMILA #### [facility] [address] [address] [address] Sonido Bejarano LYMPHM% 27.0 % Normal 20.5-60.0 [facility] Comment on above: Performed By: #### C RAMILA #### [facility] [address] [place] [address] Dr. Sonido Bejarano MCH 15.9 pg Critically low 25.9-34.0 [facility] Comment on above: Performed By: #### C RAMILA #### [facility] [address] [address] [address] Sonido Bejarano MCHC 26.7 g/dl Critically low 29.9-35.2 [facility] Comment on above: Performed By: #### C RAMILA #### [facility] [address] [address] [address] Sonido Bejarano MCV 59.5 fL Critically low 80.0-94.0 [facility] Comment on above: Performed By: #### C RAMILA #### [facility] [address] [place] [address] Dr. Sonido Bejarano METAMYELOCYTE # Normal [facility] Comment on above: Performed By: #### C RAMILA #### [facility] [address] [place] [address] Dr. Sonido Bejarano METAMYELOCYTE % Normal [facility] Comment on above: Performed By: #### C RAMILA #### [facility] [address] [address] [address] Sonido Bejarano MICROCYTOSIS 3+ Normal [facility] Comment on above: Performed By: #### C RAMILA #### [facility] [address] [place] [address] Dr. Sonido Bejarano MONOM# 0.55 103/ul Normal 0.30-0.80 [facility] Comment on above: Performed By: #### C RAMILA #### [facility] [address] [place] [address] Dr. Sonido Bejarano MONOM% 13.0 % Critically high 1.7-12.0 [facility] Comment on above: Performed By: #### C RAMILA #### [facility] [address] [place] [address] Dr. Sonido Bejarano MPV 9.7 fL Normal 9.5-13.5 [facility] Comment on above: Performed By: #### C RAMILA #### [facility] [address] [place] [address] Dr. Sonido Bejarano MYELOCYTE # Normal [facility] Comment on above: Performed By: #### C RAMILA #### [facility] [address] [place] [address] Dr. Sonido Bejarano MYELOCYTE % Normal [facility] Comment on above: Performed By: #### C RAMILA #### [facility] [address] [place] [address] Dr. Sonido Bejarano NRBC Normal [facility] Comment on above: Performed By: #### C RAMILA #### [facility] [address] [place] [address] Dr. Sonido Bejarano PLT 421 103/ul Normal 150-450 [facility] Comment on above: Performed By: #### C RAMILA #### [facility] [address] [place] [address] Dr. Sonido Bejarano RBC 5.23 106/ul Normal 4.70-6.10 [facility] Comment on above: Performed By: #### C RAMILA #### [facility] [address] [place] [address] Dr. Sonido Bejarano RDW 22.2 % Critically high 11.0-15.0 [facility] Comment on above: Performed By: #### C BCMAN #### [facility] [address] [place] [address] Dr. Sonido Bejarano SEG # 2.44 103/ul Normal 1.40-6.50 [facility] Comment on above: Performed By: #### C BCMAN #### [facility] [address] [place] [address] Dr. Sonido Bejarano SEG % 58.0 % Normal 43.0-75.0 [facility] Comment on above: Performed By: #### C BCMAN #### [facility] [address] [place] [address] Dr. Sonido Bejarano WBC 4.2 103/ul Normal 4.0-11.0 [facility] Comment on above: Performed By: #### C BCMAN #### [facility] [address] [place] [address] Dr. Sonido Bejarano CBC AUTO DIFFon 08-21-2022 BASO # 0.0 103/ul Normal 0.0-0.1 [facility] Comment on above: Performed By: #### C BC #### [facility] [address] [place] [address] Dr. Sonido Bejarano Basophils/100 WBC (Bld) 0.6 % Normal 0.2-2.0 [facility] Comment on above: Performed By: #### C BC #### [facility] [address] [place] [address] Dr. Sonido Bejarano EO # 0.1 103/ul Normal 0.0-0.7 [facility] Comment on above: Performed By: #### C BC #### [facility] [address] [place] [address] Dr. Sonido Bejarano Eosinophils/100 WBC (Bld) 1.0 % Normal 0.9-7.0 [facility] Comment on above: Performed By: #### C BC #### [facility] [address] [place] [address] Dr. Sonido Bejarano Erythrocyte distribution width (RBC) [Ratio] 21.9 % Critically high 11.0-15.0 [facility] Comment on above: Result Comment: anis ocytosis 2+ Performed By: #### C BC #### [facility] [address] [place] [address] Dr. Sonido Bejarano Hematocrit (Bld) [Volume fraction] 32.7 % Critically low 42.0-54.0 [facility] Comment on above: Performed By: #### C BC #### [facility] [address] [place] [address] Dr. Sonido Bejarano Hemoglobin (Bld) [Mass/Vol] 8.4 g/dL Critically low 14.0-18.0 [facility] Comment on above: Performed By: #### C BC #### [facility] [address] [place] [address] Dr. Sonido Bejarano IG # 0.01 10e3/ul Normal 0.00-0.03 [facility] Comment on above: Performed By: #### C BC #### [facility] [address] [place] [address] Dr. Sonido Bejarano IG % 0.2 % Normal 0.0-0.5 [facility] Comment on above: Performed By: #### C BC #### [facility] [address] [place] [address] Dr. Sonido Bejarano LYMPH # 1.1 103/ul Critically low 1.2-3.8 [facility] Comment on above: Performed By: #### C BC #### [facility] [address] [place] [address] Dr. Sonido Bejarano Lymphocytes/100 WBC (Bld) 22.3 % Normal 20.5-60.0 [facility] Comment on above: Performed By: #### C BC #### [facility] [address] [place] [address] Dr. Sonido Bejarano MANUAL DIFF REQ NO Normal [facility] Comment on above: Performed By: #### C BC #### [facility] [address] [place] [address] Dr. Sonido Bejarano MCH (RBC) [Entitic mass] 15.3 pg Critically low 25.9-34.0 [facility] Comment on above: Performed By: #### C BC #### [facility] [address] [place] [address] Dr. Sonido Bejarano MCHC (RBC) [Mass/Vol] 25.7 g/dL Critically low 29.9-35.2 [facility] Comment on above: Result Comment: hypo chromasia 2+ Performed By: #### C BC #### [facility] [address] [place] [address] Dr. Sonido Bejarano MCV (RBC) [Entitic vol] 59.6 fL Critically low 80.0-94.0 [facility] Comment on above: Result Comment: micr ocytosis 3+ Performed By: #### C BC #### [facility] [address] [place] [address] Dr. Sonido Bejarano MONO # 0.5 103/ul Normal 0.3-0.8 [facility] Comment on above: Performed By: #### C BC #### [facility] [address] [place] [address] Dr. Sonido Bejarano Monocytes/100 WBC (Bld) 10.8 % Normal 1.7-12.0 [facility] Comment on above: Performed By: #### C BC #### [facility] [address] [place] [address] Dr. Sonido Bejarano NEUT # 3.2 103/ul Normal 1.4-6.5 [facility] Comment on above: Performed By: #### C BC #### [facility] [address] [place] [address] Dr. Sonido Bejarano Neutrophils/100 WBC (Bld) 65.1 % Normal 43.0-75.0 [facility] Comment on above: Performed By: #### C BC #### [facility] [address] [place] [address] Dr. Sonido Bejarano Platelet mean volume (Bld) [Entitic vol] 9.5 fL Normal 9.5-13.5 [facility] Comment on above: Performed By: #### C BC #### [facility] [address] [place] [address] Dr. Sonido Bejarano PLT 415 103/ul Normal 150-450 [facility] Comment on above: Performed By: #### C BC #### [facility] [address] [place] [address] Dr. Sonido Bejarano RBC 5.49 106/ul Normal 4.70-6.10 [facility] Comment on above: Performed By: #### C BC #### [facility] [address] [place] [address] Dr. Sonido Bejarano WBC 5.0 103/ul Normal 4.0-11.0 [facility] Comment on above: Performed By: #### C BC #### [facility] [address] [place] [address] Dr. Sonido Bejarano CBC AUTO DIFFon 08-02-2022 BASO # 0.0 103/ul Normal 0.0-0.1 [facility] Comment on above: Performed By: #### C BC #### [facility] [address] [place] [address] Dr. Sonido Bejarano Basophils/100 WBC (Bld) 0.3 % Normal 0.2-2.0 [facility] Comment on above: Performed By: #### C BC #### [facility] [address] [place] [address] Dr. Sonido Bejarano EO # 0.0 103/ul Normal 0.0-0.7 [facility] Comment on above: Performed By: #### C BC #### [facility] [address] [place] [address] Dr. Sonido Bejarano Eosinophils/100 WBC (Bld) 0.7 % Critically low 0.9-7.0 [facility] Comment on above: Performed By: #### C BC #### [facility] [address] [place] [address] Dr. Sonido Bejarano Erythrocyte distribution width (RBC) [Ratio] 21.9 % Critically high 11.0-15.0 [facility] Comment on above: Performed By: #### C BC #### [facility] [address] [place] [address] Dr. Sonido Bejarano Hematocrit (Bld) [Volume fraction] 30.0 % Critically low 42.0-54.0 [facility] Comment on above: Performed By: #### C BC #### [facility] [address] [address] [address] Sonido Bejarano Hemoglobin (Bld) [Mass/Vol] 7.8 g/dL Critically low 14.0-18.0 [facility] Comment on above: Performed By: #### C BC #### [facility] [address] [address] [address] Sonido Bejarano IG # 0.01 10e3/ul Normal 0.00-0.03 [facility] Comment on above: Performed By: #### C BC #### [facility] [address] [place] [address] Dr. Sonido Bejarano IG % 0.2 % Normal 0.0-0.5 [facility] Comment on above: Performed By: #### C BC #### [facility] [address] [address] [address] Sonido Bejarano LYMPH # 1.0 103/ul Critically low 1.2-3.8 [facility] Comment on above: Performed By: #### C BC #### [facility] [address] [place] [address] Dr. Sonido Bejarano Lymphocytes/100 WBC (Bld) 18.0 % Critically low 20.5-60.0 [facility] Comment on above: Performed By: #### C BC #### [facility] [address] [place] [address] Dr. Sonido Bejarano MANUAL DIFF REQ NO Normal [facility] Comment on above: Performed By: #### C BC #### [facility] [address] [address] [address] Sonido Bejarano MCH (RBC) [Entitic mass] 15.9 pg Critically low 25.9-34.0 [facility] Comment on above: Performed By: #### C BC #### [facility] [address] [place] [address] Dr. Sonido Bejarano MCHC (RBC) [Mass/Vol] 26.0 g/dL Critically low 29.9-35.2 [facility] Comment on above: Performed By: #### C BC #### [facility] [address] [place] [address] Dr. Sonido Bejarano MCV (RBC) [Entitic vol] 61.2 fL Critically low 80.0-94.0 [facility] Comment on above: Performed By: #### C BC #### [facility] [address] [place] [address] Dr. Sonido Bejarano MONO # 0.5 103/ul Normal 0.3-0.8 [facility] Comment on above: Performed By: #### C BC #### [facility] [address] [place] [address] Dr. Sonido Bejarano Monocytes/100 WBC (Bld) 8.7 % Normal 1.7-12.0 [facility] Comment on above: Performed By: #### C BC #### [facility] [address] [place] [address] Dr. Sonido Bejarano NEUT # 4.1 103/ul Normal 1.4-6.5 [facility] Comment on above: Performed By: #### C BC #### [facility] [address] [place] [address] Dr. Sonido Bejarano Neutrophils/100 WBC (Bld) 72.1 % Normal 43.0-75.0 [facility] Comment on above: Performed By: #### C BC #### [facility] [address] [place] [address] Dr. Sonido Bejarano Platelet mean volume (Bld) [Entitic vol] 9.3 fL Critically low 9.5-13.5 [facility] Comment on above: Performed By: #### C BC #### [facility] [address] [place] [address] Dr. Sonido Bejarano PLT 339 103/ul Normal 150-450 [facility] Comment on above: Performed By: #### C BC #### [facility] [address] [place] [address] Dr. Sonido Bejarano RBC 4.90 106/ul Normal 4.70-6.10 [facility] Comment on above: Performed By: #### C BC #### [facility] [address] [place] [address] Dr. Sonido Bejarano WBC 5.7 103/ul Normal 4.0-11.0 [facility] Comment on above: Performed By: #### C BC #### [facility] [address] [place] [address] Dr. Sonido Bejarano CBC AUTO DIFFon 06-17-2022 BASO # 0.0 103/ul Normal 0.0-0.1 [facility] Comment on above: Performed By: #### C BC #### [facility] [address] [place] [address] Dr. Sonido Bejarano Basophils/100 WBC (Bld) 0.7 % Normal 0.2-2.0 [facility] Comment on above: Performed By: #### C BC #### [facility] [address] [place] [address] Dr. Sonido Bejarano EO # 0.3 103/ul Normal 0.0-0.7 [facility] Comment on above: Performed By: #### C BC #### [facility] [address] [place] [address] Dr. Sonido Bejarano Eosinophils/100 WBC (Bld) 5.3 % Normal 0.9-7.0 [facility] Comment on above: Performed By: #### C BC #### [facility] [address] [place] [address] Dr. Sonido Bejarano Erythrocyte distribution width (RBC) [Ratio] 22.1 % Critically high 11.0-15.0 [facility] Comment on above: Performed By: #### C BC #### [facility] [address] [place] [address] Dr. Sonido Bejarano Hematocrit (Bld) [Volume fraction] 32.2 % Critically low 42.0-54.0 [facility] Comment on above: Performed By: #### C BC #### [facility] [address] [place] [address] Dr. Sonido Bejarano Hemoglobin (Bld) [Mass/Vol] 8.2 g/dL Critically low 14.0-18.0 [facility] Comment on above: Performed By: #### C BC #### [facility] [address] [place] [address] Dr. Sonido Bejarano IG # 0.01 10e3/ul Normal 0.00-0.03 [facility] Comment on above: Performed By: #### C BC #### [facility] [address] [place] [address] Dr. Sonido Bejarano IG % 0.2 % Normal 0.0-0.5 [facility] Comment on above: Performed By: #### C BC #### [facility] [address] [place] [address] Dr. Sonido Bejarano LYMPH # 1.1 103/ul Critically low 1.2-3.8 [facility] Comment on above: Performed By: #### C BC #### [facility] [address] [place] [address] Dr. Sonido Bejarano Lymphocytes/100 WBC (Bld) 19.3 % Critically low 20.5-60.0 [facility] Comment on above: Performed By: #### C BC #### [facility] [address] [place] [address] Dr. Sonido Bejarano MANUAL DIFF REQ NO Normal [facility] Comment on above: Performed By: #### C BC #### [facility] [address] [place] [address] Dr. Sonido Bejarano MCH (RBC) [Entitic mass] 15.8 pg Critically low 25.9-34.0 [facility] Comment on above: Performed By: #### C BC #### [facility] [address] [place] [address] Dr. Sonido Bejarano MCHC (RBC) [Mass/Vol] 25.5 g/dL Critically low 29.9-35.2 [facility] Comment on above: Performed By: #### C BC #### [facility] [address] [place] [address] Dr. Sonido Bejarano MCV (RBC) [Entitic vol] 62.0 fL Critically low 80.0-94.0 [facility] Comment on above: Performed By: #### C BC #### [facility] [address] [address] [address] Sonido Bejarano MONO # 0.9 103/ul Critically high 0.3-0.8 [facility] Comment on above: Performed By: #### C BC #### [facility] [address] [address] [address] Sonido Bejarano Monocytes/100 WBC (Bld) 16.0 % Critically high 1.7-12.0 [facility] Comment on above: Performed By: #### C BC #### [facility] [address] [place] [address] Dr. Sonido Bejarano NEUT # 3.2 103/ul Normal 1.4-6.5 [facility] Comment on above: Performed By: #### C BC #### [facility] [address] [place] [address] Dr. Sonido Bejarano Neutrophils/100 WBC (Bld) 58.5 % Normal 43.0-75.0 [facility] Comment on above: Performed By: #### C BC #### [facility] [address] [place] [address] Dr. Sonido Bejarano Platelet mean volume (Bld) [Entitic vol] 9.3 fL Critically low 9.5-13.5 [facility] Comment on above: Performed By: #### C BC #### [facility] [address] [place] [address] Dr. Sonido Bejarano PLT 335 103/ul Normal 150-450 [facility] Comment on above: Performed By: #### C BC #### [facility] [address] [place] [address] Dr. Sonido Bejarano RBC 5.19 106/ul Normal 4.70-6.10 [facility] Comment on above: Performed By: #### C BC #### [facility] [address] [place] [address] Dr. Sonido Bejarano WBC 5.5 103/ul Normal 4.0-11.0 [facility] Comment on above: Performed By: #### C BC #### [facility] [address] [address] [address] Sonido Bejarano CBC AUTO DIFFon 05-15-2022 BASO # 0.0 103/ul Normal 0.0-0.1 [facility] Comment on above: Performed By: #### C BC #### [facility] [address] [address] [address] Sonido Bejarano Basophils/100 WBC (Bld) 0.8 % Normal 0.2-2.0 [facility] Comment on above: Performed By: #### C BC #### [facility] [address] [address] [address] Sonido Bejarano EO # 0.1 103/ul Normal 0.0-0.7 [facility] Comment on above: Performed By: #### C BC #### [facility] [address] [place] [address] Dr. Sonido Bejarano Eosinophils/100 WBC (Bld) 2.3 % Normal 0.9-7.0 [facility] Comment on above: Performed By: #### C BC #### [facility] [address] [place] [address] Dr. Sonido Bejarano Erythrocyte distribution width (RBC) [Ratio] 21.5 % Critically high 11.0-15.0 [facility] Comment on above: Performed By: #### C BC #### [facility] [address] [place] [address] Dr. Sonido Bejarano Hematocrit (Bld) [Volume fraction] 30.5 % Critically low 42.0-54.0 [facility] Comment on above: Performed By: #### C BC #### [facility] [address] [address] [address] Sonido Bejaarno Hemoglobin (Bld) [Mass/Vol] 7.9 g/dL Critically low 14.0-18.0 [facility] Comment on above: Performed By: #### C BC #### [facility] [address] [place] [address] Dr. Sonido Bejarano IG # 0.01 10e3/ul Normal 0.00-0.03 [facility] Comment on above: Performed By: #### C BC #### [facility] [address] [place] [address] Dr. Sonido Bejarano IG % 0.2 % Normal 0.0-0.5 [facility] Comment on above: Performed By: #### C BC #### [facility] [address] [place] [address] Dr. Sonido Bejarano LYMPH # 1.3 103/ul Normal 1.2-3.8 [facility] Comment on above: Performed By: #### C BC #### [facility] [address] [place] [address] Dr. Sonido Bejarano Lymphocytes/100 WBC (Bld) 24.6 % Normal 20.5-60.0 [facility] Comment on above: Performed By: #### C BC #### [facility] [address] [place] [address] Dr. Sonido Bejarano MANUAL DIFF REQ NO Normal [facility] Comment on above: Performed By: #### C BC #### [facility] [address] [place] [address] Dr. Sonido Bejarano MCH (RBC) [Entitic mass] 15.6 pg Critically low 25.9-34.0 [facility] Comment on above: Performed By: #### C BC #### [facility] [address] [place] [address] Dr. Sonido Bejarano MCHC (RBC) [Mass/Vol] 25.9 g/dL Critically low 29.9-35.2 [facility] Comment on above: Performed By: #### C BC #### [facility] [address] [place] [address] Dr. Sonido Bejarano MCV (RBC) [Entitic vol] 60.4 fL Critically low 80.0-94.0 [facility] Comment on above: Performed By: #### C BC #### [facility] [address] [place] [address] Dr. Sonido Bejarano MONO # 0.6 103/ul Normal 0.3-0.8 [facility] Comment on above: Performed By: #### C BC #### [facility] [address] [place] [address] Dr. Sonido Bejarano Monocytes/100 WBC (Bld) 12.1 % Critically high 1.7-12.0 [facility] Comment on above: Performed By: #### C BC #### [facility] [address] [place] [address] Dr. Sonido Bejarano NEUT # 3.1 103/ul Normal 1.4-6.5 [facility] Comment on above: Performed By: #### C BC #### [facility] [address] [place] [address] Dr. Sonido Bejarano Neutrophils/100 WBC (Bld) 60.0 % Normal 43.0-75.0 [facility] Comment on above: Performed By: #### C BC #### [facility] [address] [place] [address] Dr. Sonido Bejarano Platelet mean volume (Bld) [Entitic vol] 9.6 fL Normal 9.5-13.5 [facility] Comment on above: Performed By: #### C BC #### [facility] [address] [place] [address] Dr. Sonido Bejarano PLT 399 103/ul Normal 150-450 [facility] Comment on above: Performed By: #### C BC #### [facility] [address] [place] [address] Dr. Sonido Bejarano RBC 5.05 106/ul Normal 4.70-6.10 [facility] Comment on above: Performed By: #### C BC #### [facility] [address] [place] [address] Dr. Sonido Bejarano WBC 5.1 103/ul Normal 4.0-11.0 [facility] Comment on above: Performed By: #### C BC #### [facility] [address] [place] [address] Dr. Sonido Bejarano CBC AUTO DIFFon 04-15-2022 BASO # 0.0 103/ul Normal 0.0-0.1 [facility] Comment on above: Performed By: #### C BC #### [facility] [address] [address] [address] Sonido Bejarano Basophils/100 WBC (Bld) 0.3 % Normal 0.2-2.0 [facility] Comment on above: Performed By: #### C BC #### [facility] [address] [address] [address] Sonido Bejarano EO # 0.1 103/ul Normal 0.0-0.7 [facility] Comment on above: Performed By: #### C BC #### [facility] [address] [address] [address] Sonido Bejarano Eosinophils/100 WBC (Bld) 1.0 % Normal 0.9-7.0 [facility] Comment on above: Performed By: #### C BC #### [facility] [address] [place] [address] Dr. Sonido Bejarano Erythrocyte distribution width (RBC) [Ratio] 21.2 % Critically high 11.0-15.0 [facility] Comment on above: Performed By: #### C BC #### [facility] [address] [place] [address] Dr. Sonido Bejarano Hematocrit (Bld) [Volume fraction] 32.2 % Critically low 42.0-54.0 [facility] Comment on above: Performed By: #### C BC #### [facility] [address] [place] [address] Dr. Sonido Bejarano Hemoglobin (Bld) [Mass/Vol] 8.3 g/dL Critically low 14.0-18.0 [facility] Comment on above: Performed By: #### C BC #### [facility] [address] [place] [address] Dr. Sonido Bejarano IG # 0.03 10e3/ul Normal 0.00-0.03 [facility] Comment on above: Performed By: #### C BC #### [facility] [address] [place] [address] Dr. Sonido Bejarano IG % 0.4 % Normal 0.0-0.5 [facility] Comment on above: Performed By: #### C BC #### [facility] [address] [address] [address] Sonido Bejarano LYMPH # 1.0 103/ul Critically low 1.2-3.8 [facility] Comment on above: Performed By: #### C BC #### [facility] [address] [address] [address] Sonido Bejarano Lymphocytes/100 WBC (Bld) 15.2 % Critically low 20.5-60.0 [facility] Comment on above: Performed By: #### C BC #### [facility] [address] [address] [address] Sonido Bejarano MANUAL DIFF REQ NO Normal [facility] Comment on above: Performed By: #### C BC #### [facility] [address] [address] [address] Sonido Bejarano MCH (RBC) [Entitic mass] 16.1 pg Critically low 25.9-34.0 [facility] Comment on above: Performed By: #### C BC #### [facility] [address] [address] [address] Sonido Bejarano MCHC (RBC) [Mass/Vol] 25.8 g/dL Critically low 29.9-35.2 [facility] Comment on above: Performed By: #### C BC #### [facility] [address] [address] [address] Sonido Bejarano MCV (RBC) [Entitic vol] 62.4 fL Critically low 80.0-94.0 [facility] Comment on above: Performed By: #### C BC #### [facility] [address] [address] [address] Sonido Bejarano MONO # 0.6 103/ul Normal 0.3-0.8 [facility] Comment on above: Performed By: #### C BC #### [facility] [address] [address] [address] Sonido Bejarano Monocytes/100 WBC (Bld) 8.5 % Normal 1.7-12.0 [facility] Comment on above: Performed By: #### C BC #### [facility] [address] [place] [address] Dr. Sonido Bejarano NEUT # 5.0 103/ul Normal 1.4-6.5 [facility] Comment on above: Performed By: #### C BC #### [facility] [address] [place] [address] Dr. Sonido Bejarano Neutrophils/100 WBC (Bld) 74.6 % Normal 43.0-75.0 [facility] Comment on above: Performed By: #### C BC #### [facility] [address] [place] [address] Dr. Sonido Bejarano Platelet mean volume (Bld) [Entitic vol] 9.9 fL Normal 9.5-13.5 [facility] Comment on above: Performed By: #### C BC #### [facility] [address] [place] [address] Dr. Sonido Bejarano PLT 355 103/ul Normal 150-450 [facility] Comment on above: Performed By: #### C BC #### [facility] [address] [place] [address] Dr. Sonido Bejarano RBC 5.16 106/ul Normal 4.70-6.10 [facility] Comment on above: Result Comment: 1+ o valocytes slight hypochromic slight microchromic Performed By: #### C BC #### [facility] [address] [place] [address] Dr. Sonido Bejarano WBC 6.7 103/ul Normal 4.0-11.0 [facility] Comment on above: Performed By: #### C BC #### [facility] [address] [place] [address] Dr. Sonido BENNETTOVon 03-28-2022 CNOV Office Visit ([facility] ) -------- RJ GONZALES ([id number]) 2000 [address] Date Time Provider Department 03/28/22 11:20 AM ARNOLD GERMAIN [facility] During your visit today, we recorded the following information about you: Pulse Blood pressure Weight Height 80/minute 108/65 90.3 kg 1.803 m Yamile JACOBY Berrios 03/28/2022 11:17 AM Signed What is the reason for your visit today? Established patient presents for hematochezia. Who is your referring physician? Are you having poor oral intake? NO Have you had unintentional weight loss of 15 lbs/7 Kg in the last 3-6 months? NO Bowels: regular Wound: None Temperature: No Drains: No Arnold Germain MD 03/28/2022 11:58 AM Signed COLORECTAL SURGERY March 28, 2022 Rj Gonzales 21 year old Chief Complaint: hematochezia History of Present Illness: Rj Gonzales is a 21 year old male presents to the office for evaluation of hematochezia. Last seen in the office on 11/16/21 with Cristal Suarez MANIPULATOR OPERATOR for follow up visit after he underwent an ablation of internal hemorrhoids in 2 columns on 10/17/21. PAST MEDICAL HISTORY Diagnosis Date - Attention deficit hyperactivity disorder - MR (mental retardation) - Schizophrenia (HCC) - Tic disorder PAST SURGICAL HISTORY Procedure Laterality Date - ABDOMINAL SURGERY HX - HEMORRHOID;BAND LIGAT, SNGL/MUL 07/12/2021 Current Outpatient Medications Medication Sig Dispense Refill - acetaminophen (TYLENOL) 325 mg tablet Take 2 tablets by mouth every 6 hours. - ibuprofen (MOTRIN) 200 mg tablet Take 2 tablets by mouth every 4 hours as needed for pain. - risperiDONE (RISPERDAL) 1 mg tablet Take 1 mg by mouth. - loratadine (CLARITIN) 10 mg tablet Take 10 mg by mouth. - calcium polycarbophil (FIBERCON) 625 mg tablet Take 625 mg by mouth. - docusate sodium (COLACE) 100 mg capsule Take 100 mg by mouth twice daily. - cloZAPine (CLOZARIL) 100 mg tablet - polyethylene glycol 3350 (MIRALAX) 17 gram packet Take 1 Packet by mouth once daily. 30 Packet 5 - benztropine (COGENTIN) 2 mg tablet Take 2 mg by mouth twice daily. - clonazePAM (KLONOPIN) 1 mg tablet Take 1 mg by mouth twice daily as needed. - FLUoxetine HCl (PROZAC) 40 mg capsule Take 40 mg by mouth once daily. - haloperidol (HALDOL) 10 mg tablet Take 10 mg by mouth four times daily. No current facility-administered medications for this visit. ALLERGIES No Known Allergies No family history on file. Social History Tobacco Use - Smoking status: Never Smoker - Smokeless tobacco: Never Used Substance Use Topics - Alcohol use: No - Drug use: No Physical Exam: There were no vitals taken for this visit. General Appearance: Well appearing, alert, in no acute distress, well-hydrated, well nourished. Skin: Skin color, texture, turgor normal Head: Normocephalic Oropharynx: Lips, mucosa, and tongue normal Neck: Supple Lungs: breathing unlabored on room air Extremities: No deformities, no weakness Neuro: Gait normal Abdomen: Normal abdominal exam Anorectal: External exam reveals: see below Diesel Scoop Operator present: yes Assessment Assessment and Plan: Rj Gonzales is a 21 year old male with straining and occasional rectal bleeding. Today, we talked about adding a magnesium supplement CALM to his regimen to decrease straining. I am of the opinion that more surgery is not the best option at this time. Arnold Gemrain MD Colorectal Surgery Charley Mcclelland RN 03/28/2022 12:12 PM Signed Calm education given for constipation. Charley Mcclelland RN 03/28/2022 2:47 PM Signed Addended by: CHARLEY MCCLELLAND on: 03/28/2022 02:47 PM Modules accepted: Orders Arnold Germain MD 03/28/2022 3:11 PM Signed Addended by: ARNOLD GERMAIN on: 03/28/2022 03:11 PM Modules accepted: Orders Referring Provider: SELF [200] Allergies As of Date: 03/28/2022 (No Known Allergies) Date Reviewed: 03/28/2022 Reviewed by: Yamile Berrios MA - Fully Assessed Reason for Visit: Established Patient Follow-Up [[id number]] Rectal Bleeding [202] Primary Visit Diagnosis:Hematochezia [K92.1] Order(s):Magnesium Carbonate powd4 g daily at bedtime. Used for constipationDisp: 28 gRfl: 3 Prescriptions as of 03/28/2022 - Magnesium Carbonate powd 4 g daily at bedtime. Used for constipation - acetaminophen (TYLENOL) 325 mg tablet Take 2 tablets by mouth every 6 hours. - ibuprofen (MOTRIN) 200 mg tablet Take 2 tablets by mouth every 4 hours as needed for pain. - risperiDONE (RISPERDAL) 1 mg tablet Take 1 mg by mouth. - loratadine (CLARITIN) 10 mg tablet Take 10 mg by mouth. - calcium polycarbophil (FIBERCON) 625 mg tablet Take 625 mg by mouth. - docusate sodium (COLACE) 100 mg capsule Take 100 mg by mouth twice daily. - cloZAPine (CLOZARIL) 100 mg tablet - polyethylene glycol 3350 (MIRALAX) 17 gram packet Take 1 Packet by mouth once daily. - benztropine (C (more content not included)... Normal [facility] 03-28-2022 CNPN Telephone ([facility]) -------- RJ GONZALES ([id number]) 2000 [address] Date Time Provider Department 03/28/22 ARNOLD GERMAIN [facility] During your visit today, we recorded the following information about you: Essiealbert Pickard Pss 03/28/2022 1:41 PM Signed Patient called and left message regarding prescription from today's visit return call to [phone] Charley Mcclelland RN 03/28/2022 2:49 PM Signed Returned call. Spoke with Rj's nurse. She states she needs a script sent to his pharmacy for the magnesium supplement for constipation. Script will be sent. No other questions or concerns at this time. Allergies As of Date: 03/28/2022 (No Known Allergies) Date Reviewed: 03/28/2022 Reviewed by: Yamile Berrios MA - Fully Assessed Reason for Visit: Patient Question [7176] Prescriptions as of 03/28/2022 - acetaminophen (TYLENOL) 325 mg tablet Take 2 tablets by mouth every 6 hours. - ibuprofen (MOTRIN) 200 mg tablet Take 2 tablets by mouth every 4 hours as needed for pain. - risperiDONE (RISPERDAL) 1 mg tablet Take 1 mg by mouth. - loratadine (CLARITIN) 10 mg tablet Take 10 mg by mouth. - calcium polycarbophil (FIBERCON) 625 mg tablet Take 625 mg by mouth. - docusate sodium (COLACE) 100 mg capsule Take 100 mg by mouth twice daily. - cloZAPine (CLOZARIL) 100 mg tablet - polyethylene glycol 3350 (MIRALAX) 17 gram packet Take 1 Packet by mouth once daily. - benztropine (COGENTIN) 2 mg tablet Take 2 mg by mouth twice daily. - clonazePAM (KLONOPIN) 1 mg tablet Take 1 mg by mouth twice daily as needed. - FLUoxetine HCl (PROZAC) 40 mg capsule Take 40 mg by mouth once daily. - haloperidol (HALDOL) 10 mg tablet Take 10 mg by mouth four times daily. Problem List As Of Date 03/28/2022 Noted Resolved Developmental delay [R62.50] 07/10/2021 Schizophrenia (HCC) [F20.9] 07/10/2021 Hemorrhoids [K64.9] 10/17/2021 Encounter Status:Closed by CHARLEY MCCLELLAND on 03/28/22 [facility] Telephone ([id number]) -------- RJ GONZALES ([id number]) 2000 Genia Reyez* Date Time Provider Department 03/28/22 ARNOLD GERMAIN [id number] During your visit today, we recorded the following information about you: Sara Rose ADM 03/28/2022 3:45 PM Signed Pharmacy, [facility], [facility], phone , any pharmacist to clarify about carbonate? CALM is snf able to order as food item? Please call to discuss. Charley Mcclelland RN 03/28/2022 4:14 PM Signed Spoke with the pharmacist and she states that she does not provide food items. She will speak with the nurse at the snf. Allergies As of Date: 03/28/2022 (No Known Allergies) Date Reviewed: 03/28/2022 Reviewed by: Yamile Berrios MA - Fully Assessed Reason for Visit: Medication Problem [65] Cmt: magnesium carbonate? vs? CALM Prescriptions as of 03/28/2022 - Magnesium Carbonate powd 4 g daily at bedtime. Used for constipation - acetaminophen (TYLENOL) 325 mg tablet Take 2 tablets by mouth every 6 hours. - ibuprofen (MOTRIN) 200 mg tablet Take 2 tablets by mouth every 4 hours as needed for pain. - risperiDONE (RISPERDAL) 1 mg tablet Take 1 mg by mouth. - loratadine (CLARITIN) 10 mg tablet Take 10 mg by mouth. - calcium polycarbophil (FIBERCON) 625 mg tablet Take 625 mg by mouth. - docusate sodium (COLACE) 100 mg capsule Take 100 mg by mouth twice daily. - cloZAPine (CLOZARIL) 100 mg tablet - polyethylene glycol 3350 (MIRALAX) 17 gram packet Take 1 Packet by mouth once daily. - benztropine (COGENTIN) 2 mg tablet Take 2 mg by mouth twice daily. - clonazePAM (KLONOPIN) 1 mg tablet Take 1 mg by mouth twice daily as needed. - FLUoxetine HCl (PROZAC) 40 mg capsule Take 40 mg by mouth once daily. - haloperidol (HALDOL) 10 mg tablet Take 10 mg by mouth four times daily. Problem List As Of Date 03/28/2022 Noted Resolved Developmental delay [R62.50] 07/10/2021 Schizophrenia (HCC) [F20.9] 07/10/2021 Hemorrhoids [K64.9] 10/17/2021 Encounter Status:Closed by CHARLEY MCCLELLAND on 03/28/22 [facility] 11-16-2021 CNOV Office Visit ([facility] ) -------- RJ GONZALES ([id number]) 2000 M [address] [place]* Date Time Provider Department 11/16/21 1:30 PM CRISTAL SUAREZ During your visit today, we recorded the following information about you: Pulse Blood pressure Weight Height 60/minute 136/80 96.2 kg 1.803 m Cristal Suarez APRN.PLUMBER 11/16/2021 12:59 PM Signed COLORECTAL SURGERY November 16, 2021 Rj Gonzales 21 year old Chief Complaint: Postop visit History of Present Illness: Rj Gonzales is a 21 year old male status post ablation of internal hemorrhoids in [address] Germain on 10/17/2021.He reports doing well since procedure. He is no longer having episodes of hemorrhoidal rectal bleeding. He reports an occasional BRB on the toilet paper after bowel movements. Patient denies anorectal pain. He continues his colace and Miralax every other day. Patient reports that he no longer has the urge to strain with a bowel movement. PAST MEDICAL HISTORY Diagnosis Date - Attention deficit hyperactivity disorder - MR (mental retardation) - Schizophrenia (HCC) - Tic disorder PAST SURGICAL HISTORY Procedure Laterality Date - ABDOMINAL SURGERY HX - HEMORRHOID;BAND LIGAT, SNGL/MUL 07/12/2021 Current Outpatient Medications Medication Sig Dispense Refill - acetaminophen (TYLENOL) 325 mg tablet Take 2 tablets by mouth every 6 hours. - ibuprofen (MOTRIN) 200 mg tablet Take 2 tablets by mouth every 4 hours as needed for pain. - risperiDONE (RISPERDAL) 1 mg tablet Take 1 mg by mouth. - loratadine (CLARITIN) 10 mg tablet Take 10 mg by mouth. - calcium polycarbophil (FIBERCON) 625 mg tablet Take 625 mg by mouth. - docusate sodium (COLACE) 100 mg capsule Take 100 mg by mouth twice daily. - cloZAPine (CLOZARIL) 100 mg tablet - polyethylene glycol 3350 (MIRALAX) 17 gram packet Take 1 Packet by mouth once daily. 30 Packet 5 - benztropine (COGENTIN) 2 mg tablet Take 2 mg by mouth twice daily. - clonazePAM (KLONOPIN) 1 mg tablet Take 1 mg by mouth twice daily as needed. - FLUoxetine HCl (PROZAC) 40 mg capsule Take 40 mg by mouth once daily. - haloperidol (HALDOL) 10 mg tablet Take 10 mg by mouth four times daily. No current facility-administered medications for this visit. ALLERGIES No Known Allergies No family history on file. Social History Tobacco Use - Smoking status: Never Smoker - Smokeless tobacco: Never Used Substance Use Topics - Alcohol use: No - Drug use: No Physical Exam: BP 136/80 Pulse 60 Ht 180.3 cm (5' 11 ) Wt 96.2 kg (212 lb) BMI 29.57 kg/m? General Appearance: Well appearing, alert, in no acute distress, well-hydrated, well nourished. Skin: Skin color, texture, turgor normal Head: Normocephalic Oropharynx: Lips, mucosa, and tongue normal Neck: Supple Lungs: breathing unlabored on room air Extremities: No deformities, no weakness Neuro: Gait normal Abdomen: deferred Anorectal: deferred Assessment Assessment and Plan: Rj Gonzales is a 21 year old male patient recovering as expected after recent hemorrhoid procedure. We discussed continuing to keep his bowels soft and drinking at least 8 to 10 glasses of water a day. He will plan to follow-up in the office in the future as needed. Medical Decision Making: Data Reviewed: - Tests AND Documents Reviewed/ordered: Review of prior operative reports - I have discussed Rj Gonzales's treatment plan and/or results with patient and POA. Cristal Suarez APRN.HUSAM Colorectal Surgery Referring Provider: ARNOLD GERMAIN [[id number]] Allergies As of Date: 11/16/2021 (No Known Allergies) Date Reviewed: 11/16/2021 Reviewed by: Cristal Suarez APRN.[facility] - Fully Assessed Reason for Visit: Post Op [174] Primary Visit Diagnosis:Hemorrhoids, internal, with bleeding [K64.8] Prescriptions as of 11/16/2021 - acetaminophen (TYLENOL) 325 mg tablet Take 2 tablets by mouth every 6 hours. - ibuprofen (MOTRIN) 200 mg tablet Take 2 tablets by mouth every 4 hours as needed for pain. - risperiDONE (RISPERDAL) 1 mg tablet Take 1 mg by mouth. - loratadine (CLARITIN) 10 mg tablet Take 10 mg by mouth. - calcium polycarbophil (FIBERCON) 625 mg tablet Take 625 mg by mouth. - docusate sodium (COLACE) 100 mg capsule Take 100 mg by mouth twice daily. - cloZAPine (CLOZARIL) 100 mg tablet - polyethylene glycol 3350 (MIRALAX) 17 gram packet Take 1 Packet by mouth once daily. - benztropine (COGENTIN) 2 mg tablet Take 2 mg by mouth twice daily. - clonazePAM (KLONOPIN) 1 mg tablet Take 1 mg by mouth twice daily as needed. - FLUoxetine HCl (PROZAC) 40 mg capsule Take 40 mg by mouth once daily. - haloperidol (HALDOL) 10 mg tablet Take 10 mg by mouth four times daily. Problem List As Of Date 11/16/2021 Noted Resolved Developmental delay [R62.50] 07/10/2021 Schizophrenia (HCC) [F20.9] 07/10/2021 Hemorrho (more content not included)... Normal [facility] ANES POSTPROC EVALon 021 ANES POSTPROC EVAL HNO ID: [id number] Author: Michael Martínez MD Service: Anesthesiology Author Type: Anesthesiologist Type: Anesthesia Postprocedure Evaluation Filed: 10/17/2021 10:23 AM Note Text: POST ANESTHESIA EVALUATION NOTE : 2000 Procedure Summary Date: 10/17/21 Room / Location: [address] Anesthesia Start: 841 Anesthesia Stop: 913 Procedure: HEMORRHOIDECTOMY EXTERNAL > 2 COLUMNS/GROUPS (N/A Anus) Diagnosis: Hemorrhoids, unspecified hemorrhoid type (Hemorrhoids, unspecified hemorrhoid type [K64.9]) Surgeons: Arnold Germain MD Responsible Provider: Michael Martínez MD Anesthesia Type: general ASA Status: 2 Anesthesia Type: general Airway Type: LMA Last Vitals Vitals Value Taken Time BP 129/88 10/17/21954 Temp 36.3 ?C (97.3 ?F) 10/17/21910 Pulse 84 10/17/21954 Resp 16 10/17/21954 SpO2 100 % 10/17/21954 Post Anesthesia Patient Status Patient Evaluation: PACU. PACU/ICU Patient Condition: stable. Anticipated Disposition: phase 2 then home. Neurological Status: aware and responsive. Pulmonary Status: breathing comfortably on room air Airway Control: returned to baseline unsupported. Cardiovascular Status: stable. Pain Management: clinically adequate - multimodal analgesia pain management approach Postoperative Hydration: acceptable. Intraoperative Events: no significant anesthesia events Post Operative Nausea/Vomiting Status: no significant post operative nausea or vomiting Anesthetic Observations: Recommendation: further care per PACU/ICU/floor team. Anesthesia Observations No Documentation SIGNATURE: Michael Martínez MD PATIENT NAME: Rj Gonzales DATE: October 17, 2021 TIME: 10:23 AM CSN: [id number] [facility] ANES PRE-OPon 10-17-2021 ANES PRE-OP HNO ID: [id number] Author: Michael Martínez MD Service: Anesthesiology Author Type: Anesthesiologist Type: Anesthesia Preprocedure Evaluation Filed: 10/17/2021 8:32 AM Note Text: ANESTHESIOLOGY DAY OF SURGERY NOTE : 2000 Procedure Information Date/Time: 10/17/21729 Procedure: HEMORRHOIDECTOMY EXTERNAL > 2 COLUMNS/GROUPS (N/A ) Location: [address] Surgeons: Arnold Germain MD Estimated body mass index is 29.7 kg/m? as calculated from the following: Height as of this encounter: 180.3 cm (5' 11 ). Weight as of this encounter: 96.6 kg (212 lb 15.4 oz). Most recent hematocrit and potassium results: Hematocrit 42.0 03/01/2015 Potassium 4.4 03/01/2015 Relevant Problems No relevant active problems I - PHYSICAL EVALUATION AIRWAY Patient intubated: No. Tracheostomy tube not present Mallampati: II. Neck ROM: full ROM without neurological symptoms. Mouth opening: adequate. Short neck: no. Thick neck: no DENTAL Dental findings: teeth intact. Additional exam findings: yes. CARDIOVASCULAR Normal cardiovascular observations. PULMONARY Normal pulmonary observations. II - ANESTHESIA PLAN ASA Score: 2 Anesthetic Plan: general Airway type: LMA Anesthetic plan additional comments: Surgical team obtained phone consent from patient's POA, Soren Pinedamalik. I placed a phone call to Mr. Duke to discuss anesthesia and address any questions, but was directed to voicemail. . The patient is not a current smoker. NPO Status: adequate Monitoring plan: standard ASA. Postoperative analgesic plan: multimodal analgesia. Anesthetic Risks, Benefits, Alternatives, Personnel Discussed. Consent obtained from: patient.Patient / Surrogate agrees to blood products: blood products not planned DNR status not reviewed with patient and/or family prior to surgery. Potential Anesthesia issues that may suggest increased risk of complications or contraindication to planned procedure: none. Vitals Value Taken Time BP 120/80 10/17/21654 Pulse 80 10/17/21654 Resp 16 10/17/21654 Temp 36.2 ?C (97.2 ?F) 10/17/21654 SpO2 100 % 10/17/21654 Facility-Administered Medications as of 10/17/2021 Medication Dose Route Frequency - lidocaine 10 mg/mL (1 %) 1-2 mg injection (XYLOCAINE) 0.1-0.2 mL INTRADERMAL PRN - lactated ringers iv infusion 5-30 mL/hr INTRAVENOUS CONTINUOUS - [COMPLETED] acetaminophen 1,000 mg tab(s) (TYLENOL) 1,000 mg ORAL ONCE Outpatient Medications as of 10/17/2021 Medication Sig - risperiDONE (RISPERDAL) 1 mg tablet Take 1 mg by mouth. - loratadine (CLARITIN) 10 mg tablet Take 10 mg by mouth. - calcium polycarbophil (FIBERCON) 625 mg tablet Take 625 mg by mouth. - docusate sodium (COLACE) 100 mg capsule Take 100 mg by mouth twice daily. - clonazePAM (KLONOPIN) 1 mg tablet Take 1 mg by mouth twice daily as needed. - FLUoxetine HCl (PROZAC) 40 mg capsule Take 40 mg by mouth once daily. - haloperidol (HALDOL) 10 mg tablet Take 10 mg by mouth four times daily. - cloZAPine (CLOZARIL) 100 mg tablet - polyethylene glycol 3350 (MIRALAX) 17 gram packet Take 1 Packet by mouth once daily. - benztropine (COGENTIN) 2 mg tablet Take 2 mg by mouth twice daily. I have interviewed and examined the patient. I have reviewed the medical record and/or the pre-anesthesia evaluation, pertinent labs, and test results. This contains updated information obtained within 48 hours of Surgery/Procedure. SIGNATURE: Michael Martínez MD PATIENT NAME: Rj Gonzales DATE: October 17, 2021 TIME: 8:27 AM CSN: [id number] [facility] BRIEF OP NOTon 10-17-2021 BRIEF OP NOT HNO ID: [id number] Author: Jared Rowe MD Service: Colorectal Author Type: Resident Type: Brief Op Note Filed: 10/17/2021 9:15 AM Note Text: BRIEF OPERATIVE / PROCEDURE NOTE LOG ID: [id number] SURGERY/PROCEDURE DATE: 10/17/2021 INCISION/PROCEDURE START TIME: 8:55 AM INCISION CLOSE/PROCEDURE END TIME: 9:02 AM SURGEON(S)/PROCEDURALIST (S) AND APPRAISAL COORDINATOR(S): Surgeon(s) and Role: * Arnold Germain MD - Primary * Jared Rowe MD - Resident - Assisting No Additional Staff SURGERY/PROCEDURE(S): Ablation of internal hemorrhoids (R posterior, L lateral) ANESTHESIA: General FINDINGS: grade 1-2 internal hemorrhoids. Mild rectal prolapse. ESTIMATED BLOOD LOSS: 2 mls SPECIMENS: None COMPLICATIONS: None PRE-OP/PRE-PROCEDURE DIAGNOSIS: rectal bleeding, hemorrhoids POST-OP/POST-PROCEDURE DIAGNOSIS: Same as Preop SIGNATURE: Jared Rowe MD PATIENT NAME: Rj Gonzales DATE: October 17, 2021 TIME: 9:13 AM [facility] HISTORY PHYSICALon HISTORY PHYSICAL HNO ID: [id number] Author: Jared Rowe MD Service: Colorectal Author Type: Resident Type: HANDP Filed: 10/17/2021 7:22 AM Note Text: -------- Attestation signed by Arnold Germain MD at 10/30/2021 11:18 AM hp -------- UPDATED HISTORY AND PHYSICAL EXAMINATION SERVICE DATE: 10/17/2021 SERVICE TIME: 7:22 AM PHYSICAL EXAM MUST BE COMPLETED ON ADMISSION The History and Physical (completed in the past 30 days) has been reviewed and the patient has been examined. The contents accurately reflect the patient's condition with the following additions or revisions since the HANDP was completed. Examination indicates no changes. This HANDP can be found in the attached. SIGNATURE: Jared Rowe MD PATIENT NAME: Rj Gonzales DATE: October 17, 2021 TIME: 7:22 AM Normal [facility] OPERATIVE NOon 10-17-2021 OPERATIVE NO HNO ID: [id number] Author: Arnold Germain MD Service: Colorectal Author Type: Physician Type: Operative Report Filed: 10/30/2021 11:21 AM Note Text: [facility] - Operative Report RJ GONZALES : 2000 AGE: 21. SEX: M PATIENT TYPE: A HOSP SVC: [facility] LOCATION: [facility] ATTENDING PHYSICIAN: Arnold Germain M.D. CSN NUMBER: [id number] DATE OF SURGERY/PROCEDURE: 10/17/2021 INCISION/PROCEDURE START TIME: 8:55 AM INCISION CLOSE/PROCEDURE END TIME: 9:02 AM PREOPERATIVE DIAGNOSIS: Hemorrhoids. POSTOPERATIVE DIAGNOSIS: Hemorrhoids. SURGEON: Arnold Germain M.D. APPRAISAL COORDINATOR: Jared. SURGERY/PROCEDURE: Ablation. ANESTHESIA: General ESTIMATED BLOOD LOSS: 2. INTRAVENOUS FLUIDS: Per Anesthesia. DESCRIPTION OF PROCEDURE: The patient was brought to the operating room, placed in lithotomy position. After anesthesia was induced, he had some mucosal prolapse of the distal aspect of the rectum and 2 engorged internal hemorrhoids, left lateral and right posterolateral position. Using the bipolar energy LigaSure, these were both ablated successfully and there was no other additional surgery at that time and the disease was overall very minor. Arnold Germain M.D. BC:[id number] [facility] HISTORY PHYSICALon HISTORY PHYSICAL HNO ID: [id number] Author: Zahira Heath APRN.PLUMBER Service: ? Author Type: Nurse Practitioner Type: HANDP Filed: 10/11/2021 11:31 AM Note Text: HISTORY AND PHYSICAL EXAMINATION SERVICE DATE: 10/11/2021 SERVICE TIME: 11:13 AM PRIMARY CARE PHYSICIAN: No primary care provider on file. REASON FOR VISIT: Rj Gonzales is a 21 year old male who is scheduled for HEMORRHOIDECTOMY EXTERNAL > 2 COLUMNS/GROUPS at the request of Dr. Arnold Germain for consultation. My final recommendation will be communicated back to the requesting physician by way of shared medical record or letter. The patient has the following: ACTIVE PROBLEM LIST Developmental Delay Schizophrenia (Hcc) Subjective CHIEF COMPLAINT: Hemorrhoids HPI: 21 year old male with a history of MR/DD and schizophrenia presents for PAT today with a caregiver from his snf. States he is having around 5 bowel movements daily. Rj denies diarrhea, but his caregiver states that he will spend a long time in the restroom, grunting and straining. He states that there is always blood in the toilet and when he wipes. Denies rectal pain. His caregiver feels that it has been getting worse recently and Rj asked to return to the office for evaluation Patient had surgery In June PAST MEDICAL HISTORY Diagnosis Date - Attention deficit hyperactivity disorder - MR (mental retardation) - Schizophrenia (HCC) - Tic disorder PAST SURGICAL HISTORY Procedure Laterality Date - ABDOMINAL SURGERY HX - HEMORRHOID;BAND LIGAT, SNGL/MUL 07/12/2021 No family history on file. SOCIAL HISTORY: Social History Tobacco Use - Smoking status: Never Smoker - Smokeless tobacco: Never Used Substance Use Topics - Alcohol use: No - Drug use: No MEDICATIONS: Prior to Admission medications as of 10/11/21 1113 Medication Sig Last Dose Taking risperiDONE (RISPERDAL) 1 mg tablet Take 1 mg by mouth. Taking Yes loratadine (CLARITIN) 10 mg tablet Take 10 mg by mouth. Taking Yes calcium polycarbophil (FIBERCON) 625 mg tablet Take 625 mg by mouth. Taking Yes docusate sodium (COLACE) 100 mg capsule Take 100 mg by mouth twice daily. Taking Yes cloZAPine (CLOZARIL) 100 mg tablet Taking Yes polyethylene glycol 3350 (MIRALAX) 17 gram packet Take 1 Packet by mouth once daily. Taking Yes benztropine (COGENTIN) 2 mg tablet Take 2 mg by mouth twice daily. Taking Yes clonazePAM (KLONOPIN) 1 mg tablet Take 1 mg by mouth twice daily as needed. Taking Yes FLUoxetine HCl (PROZAC) 40 mg capsule Take 40 mg by mouth once daily. Taking Yes haloperidol (HALDOL) 10 mg tablet Take 10 mg by mouth four times daily. Taking Yes No medication comments found. CURRENT ALLERGIES: ALLERGIES No Known Allergies COVID VACCINATION STATUS: Fully vaccinated REVIEW OF SYSTEMS: PAIN ASSESSMENT: General: No weight loss, malaise or fevers. Neuro: No history of TIA's, stroke, ENVELOPE FOLDER tumor, impaired sensorium, hemiplegia, paraplegia or quadraplegia. No neurological symptoms or problems. Respiratory: No history of current cough or dyspnea, or pneumonia in the past 6 weeks. No history of respiratory/pulmonary symptoms or problems. Cardiovascular: No history of HTN requiring medication, no history of angina, CHF, DC, cardiac surgery or stents. Denies rest pain, gangrene or revascularization/amputa tion for PVD. No history of cardiovascular symptoms or problems. GI: See HPI : No history of dysuria, frequency or incontinence,, stones or chronic kidney disease, No difficulty urinating, nocturia > 1 time per night or hematuria Endocrine: No history of diabetes. Has not taken steroids within the past 30 days. No history of endocrinological symptoms or problems. Hematology: No history of bleeding or clotting disorder. Pt is not taking anti-coagulation or platelet medications. No history of hematological symptoms or problems. Oncology: No history of CA metastasis, chemo within 30 days, or radiotherapy within 90 days. Has not lost 10% of body wt in 6 months. No history of oncological symptoms or problems. Psych: ADHD, Schizophrenia and MR Musculoskeletal: Negative for joint pain or swelling, back pain or muscle pain. Skin: Negative for lesions, rash and itching. Objective PHYSICAL EXAM: VITALS: BP 120/76 Pulse 86 Temp (Src) 97.4 (Temporal) Resp 16 Ht 5' 11 (1.80m) Wt 213 lb (96.6kg) SpO2 100% BMI 29.72 kg/(m2). General: Alert and oriented, No acute distress Skin: Normal color, no rash, no lesions. HEENT: EOM, pupils equal, round and reactive., No carotid bruits Cardiovascular: Normal S1 AND S2, no rubs, murmurs or gallops. No JVD. Pulse regular. Lungs: Normal breath sounds, no wheezes or crackles. Abdomen: Soft, non-tender, no rigidity., Positive bowel sounds Extremities: No deformity, no edema or tenderness, no joint swelling or clubbing. Neurological: Normal cognition and motor skills. Pulse (more content not included)... Normal [facility] CNOVon 08-31-2021 CNOV Office Visit (COFHAM ) -------- RJ GONZALES ([id number]) 2000 Genia Reyez* Date Time Provider Department 08/31/21 1:30 PM ARNOLD GERMAIN [facility] During your visit today, we recorded the following information about you: Pulse Blood pressure Weight 91/minute 131/80 97.5 kg Arnold Germain MD 09/02/2021 7:18 AM Signed COLORECTAL SURGERY August 31, 2021 Rj Gonzales 21 year old Chief Complaint: post op History of Present Illness: Rj Gonzales is a 21 year old male presents in the office for a post op visit after hemorrhoid banding 07/12/21. PAST MEDICAL HISTORY Diagnosis Date - Attention deficit hyperactivity disorder - MR (mental retardation) - Schizophrenia (HCC) - Tic disorder PAST SURGICAL HISTORY Procedure Laterality Date - ABDOMINAL SURGERY HX Current Outpatient Medications Medication Sig Dispense Refill - risperiDONE (RISPERDAL) 1 mg tablet Take 1 mg by mouth. - loratadine (CLARITIN) 10 mg tablet Take 10 mg by mouth. - calcium polycarbophil (FIBERCON) 625 mg tablet Take 625 mg by mouth. - docusate sodium (COLACE) 100 mg capsule Take 100 mg by mouth twice daily. - cloZAPine (CLOZARIL) 100 mg tablet - polyethylene glycol 3350 (MIRALAX) 17 gram packet Take 1 Packet by mouth once daily. 30 Packet 5 - benztropine (COGENTIN) 2 mg tablet Take 2 mg by mouth twice daily. - clonazePAM (KLONOPIN) 1 mg tablet Take 1 mg by mouth twice daily as needed. - FLUoxetine HCl (PROZAC) 40 mg capsule Take 40 mg by mouth once daily. - haloperidol (HALDOL) 10 mg tablet Take 10 mg by mouth four times daily. No current facility-administered medications for this visit. ALLERGIES No Known Allergies No family history on file. Social History Tobacco Use - Smoking status: Never Smoker - Smokeless tobacco: Never Used Substance Use Topics - Alcohol use: No - Drug use: No Physical Exam: There were no vitals taken for this visit. General Appearance: Well appearing, alert, in no acute distress, well-hydrated, well nourished. Skin: Skin color, texture, turgor normal Head: Normocephalic Oropharynx: Lips, mucosa, and tongue normal Neck: Supple Lungs: breathing unlabored on room air Extremities: No deformities, no weakness Neuro: Gait normal Abdomen: Normal abdominal exam Anorectal: External exam reveals : see below Diesel Scoop Operator present: yes Assessment Assessment and Plan: Rj Gonzales is a 21 year old male who is doing relatively well after his recent rubber band ligation. He still has some rectal bleeding and it is difficult to assess the exact amount. If the bleeding persists we will consider internal hemorrhoidectomy. Arnold Germain MD Colorectal Surgery Referring Provider: ELHAM VAN [[id number]] Allergies As of Date: 08/31/2021 (No Known Allergies) Date Reviewed: 08/31/2021 Reviewed by: Leida Ozuna Ma - Fully Assessed Reason for Visit: Post Op [174] Rectal Problem [93] Primary Visit Diagnosis:Hemorrhoids, unspecified hemorrhoid type [K64.9] Prescriptions as of 09/02/2021 - risperiDONE (RISPERDAL) 1 mg tablet Take 1 mg by mouth. - loratadine (CLARITIN) 10 mg tablet Take 10 mg by mouth. - calcium polycarbophil (FIBERCON) 625 mg tablet Take 625 mg by mouth. - docusate sodium (COLACE) 100 mg capsule Take 100 mg by mouth twice daily. - cloZAPine (CLOZARIL) 100 mg tablet - polyethylene glycol 3350 (MIRALAX) 17 gram packet Take 1 Packet by mouth once daily. - benztropine (COGENTIN) 2 mg tablet Take 2 mg by mouth twice daily. - clonazePAM (KLONOPIN) 1 mg tablet Take 1 mg by mouth twice daily as needed. - FLUoxetine HCl (PROZAC) 40 mg capsule Take 40 mg by mouth once daily. - haloperidol (HALDOL) 10 mg tablet Take 10 mg by mouth four times daily. Problem List As Of Date 08/31/2021 Noted Resolved Developmental delay [R62.50] 07/10/2021 Schizophrenia (HCC) [F20.9] 07/10/2021 Encounter Status:Closed by ARNOLD GERMAIN on 09/02/21 [facility] OPERATIVE NOon 07-17-2021 OPERATIVE NO HNO ID: [id number] Author: Arnold Germain MD Service: Colorectal Author Type: Physician Type: Operative Report Filed: 08/01/2021 1:12 PM Note Text: [facility] - Operative Report RJ GONZALES : 2000 AGE: 21. SEX: M PATIENT TYPE: A HOSP SV: [facility] LOCATION: [facility] - [place] ATTENDING PHYSICIAN: Arnold Germain M.D. CSN NUMBER: [id number] DATE OF SURGERY/PROCEDURE: 07/12/2021 INCISION/PROCEDURE START TIME: 10:55 AM INCISION CLOSE/PROCEDURE END TIME: 10:58 AM PREOPERATIVE DIAGNOSIS: Rectal bleeding. POSTOPERATIVE DIAGNOSIS: Rectal bleeding. SURGEON: Arnold Germain M.D. APPRAISAL COORDINATOR: None. SURGERY/PROCEDURE: Rubber-band ligation hemorrhoidectomy. ANESTHESIA: General DESCRIPTION OF PROCEDURE: The patient was brought to the operating room, this was actually done on July 12. He was brought to the operating room and placed in lithotomy position. The anorectal region was prepped and draped in standard surgical fashion. Attention was turned to the anal canal. At this point, we inspected the anorectal ring. He has some mildly engorged prolapsing internal hemorrhoids. Rubber band ligation was done in 2 different quadrants. There was prolapsing internal hemorrhoidal tissue. He was then transferred to recovery room in good condition. Arnold Germain M.D. BC:[id number] /[id number] [facility] 07-13-2021 [facility] Telephone ([facility]) -------- RJ GONZALES ([id number]) 2000 [place]* Date Time Provider Department 07/13/21 ARNOLD GERMAIN [facility] During your visit today, we recorded the following information about you: Essie Pryorle Pss 07/13/2021 3:27 PM Signed Patient's caregiver called with post operative hemorrhoidectomy questions and concerns of bands falling off return call to [phone] Sara Rose [facility] 07/16/2021 12:22 PM Signed Kasia, caregiver called. Patient banding undone. Called last Friday, waiting to talk to nurse about care. [phone] Nona Banks RN 07/16/2021 4:56 PM Signed Call returned to caregiver. Pt continues to have large amounts of rectal bleeding after bowel movement. It is able to stop after a few minutes. She has noticed the bands fell off the day after surgery and again this weekend. Advised to keep stools loose, continue daily miralax. Advised to make follow up appt in office for discussion/evaluation. Discussed amounts of bleeding to be concerned about. Advised if bleeding occurs again, it is recommended to go to local ED for evaluation. Allergies As of Date: 07/13/2021 (No Known Allergies) Date Reviewed: 07/12/2021 Reviewed by: Kaitlin Manzanares RN - Fully Assessed Reason for Visit: Post Op [174] Prescriptions as of 07/16/2021 - risperiDONE (RISPERDAL) 1 mg tablet Take 1 mg by mouth. - loratadine (CLARITIN) 10 mg tablet Take 10 mg by mouth. - calcium polycarbophil (FIBERCON) 625 mg tablet Take 625 mg by mouth. - docusate sodium (COLACE) 100 mg capsule Take 100 mg by mouth twice daily. - cloZAPine (CLOZARIL) 100 mg tablet - polyethylene glycol 3350 (MIRALAX) 17 gram packet Take 1 Packet by mouth once daily. - benztropine (COGENTIN) 2 mg tablet Take 2 mg by mouth twice daily. - clonazePAM (KLONOPIN) 1 mg tablet Take 1 mg by mouth twice daily as needed. - FLUoxetine HCl (PROZAC) 40 mg capsule Take 40 mg by mouth once daily. - haloperidol (HALDOL) 10 mg tablet Take 10 mg by mouth four times daily. Problem List As Of Date 07/13/2021 Noted Resolved Developmental delay [R62.50] 07/10/2021 Schizophrenia (HCC) [F20.9] 07/10/2021 Encounter Status:Closed by NONA BANKS on 07/16/21 Normal [facility] ANES POSTPROC EVALon 021 ANES POSTPROC EVAL HNO ID: [id number] Author: Jared Arriaga MD Service: Anesthesiology Author Type: Anesthesiologist Type: Anesthesia Postprocedure Evaluation Filed: 07/12/2021 12:05 PM Note Text: POST ANESTHESIA EVALUATION NOTE : 2000 Procedure Summary Date: 07/12/21 Room / Location: [address] / [facility] Anesthesia Start: 1044 Anesthesia Stop: 1110 Procedures: EXAM UNDER ANESTHESIA RECTAL (N/A Anus) BANDING HEMORRHOID (N/A Anus) Diagnosis: Grade I hemorrhoids (Grade I hemorrhoids [K64.0]) Surgeons: Arnold Germain MD Responsible Provider: Jared Arriaga MD Anesthesia Type: general ASA Status: 2 Anesthesia Type: general Last vitals Vitals Value Taken Time BP 108/79 07/12/21 1150 Temp 36.4 ?C (97.5 ?F) 07/12/21 1150 Pulse 77 07/12/21 1150 Resp 18 07/12/21 1150 SpO2 99 % 07/12/21 1150 Post Anesthesia Patient Status Patient Evaluation: PACU. PACU/ICU Patient Condition: stable. Anticipated Disposition: phase 2 then home. Neurological Status: aware and responsive. Pulmonary Status: breathing comfortably on room air Airway Control: returned to baseline unsupported. Cardiovascular Status: stable. Pain Management: clinically adequate Postoperative Hydration: acceptable. Intraoperative Events: no significant anesthesia events Recommendation: continue current plan of care. No complications documented. SIGNATURE: Jared Arriaga MD PATIENT NAME: Rj Gonzales DATE: July 12, 2021 TIME: 12:05 PM CSN: [id number] [facility] ANES PRE-OPon 07-12-2021 ANES PRE-OP HNO ID: [id number] Author: Jared Arriaga MD Service: Anesthesiology Author Type: Anesthesiologist Type: Anesthesia Preprocedure Evaluation Filed: 07/12/2021 9:21 AM Note Text: ANESTHESIOLOGY DAY OF SURGERY NOTE : 2000 Procedure(s) (LRB): EXAM UNDER ANESTHESIA RECTAL (N/A) BANDING HEMORRHOID (N/A) Surgeon(s): Arnold Germain MD Estimated body mass index is 32.14 kg/m? as calculated from the following: Height as of 07/10/21: 177.8 cm (5' 10 ). Weight as of 07/10/21: 101.6 kg (224 lb). Most recent hematocrit and potassium results: Hematocrit 42.0 03/01/2015 Potassium 4.4 03/01/2015 Relevant Problems Other (+) Developmental delay (+) Schizophrenia (HCC) I - PHYSICAL EVALUATION AIRWAY Patient intubated: No. Tracheostomy tube not present Mallampati: II. TM distance: >3 FB. Neck ROM: full ROM without neurological symptoms. Mouth opening: adequate. DENTAL Dental findings: teeth intact. II - ANESTHESIA PLAN ASA Score: 2 Anesthetic Plan: general Airway type: LMA NPO Status: adequate Monitoring plan: standard ASA. Postoperative analgesic plan: multimodal analgesia and per surgical service. Anesthetic Risks, Benefits, Alternatives, Personnel Discussed. Consent obtained from: patient.Patient / Surrogate agrees to blood products: Yes Significant changes in the patient condition since the History and Physical, not otherwise documented in primary service progress note: no. Potential Anesthesia issues that may suggest increased risk of complications or contraindication to planned procedure: none. Vitals Value Taken Time BP 118/83 07/12/21 0856 Pulse 77 07/12/21 0856 Resp 16 07/12/21 0856 Temp 36.6 ?C (97.9 ?F) 07/12/21 0856 SpO2 100 % 07/12/21 0856 Facility-Administered Medications as of 07/12/2021 Medication Dose Route Frequency - acetaminophen 1,000 mg tab(s) (TYLENOL) 1,000 mg ORAL ONCE - promethazine 12.5 mg tab(s) (PHENERGAN) 12.5 mg ORAL NOW - lactated ringers iv infusion 30 mL/hr INTRAVENOUS CONTINUOUS - lidocaine 10 mg/mL (1 %) 1-2 mg injection (XYLOCAINE) 0.1-0.2 mL INTRADERMAL PRN - lactated ringers iv infusion 5-30 mL/hr INTRAVENOUS CONTINUOUS Outpatient Medications as of 07/12/2021 Medication Sig - docusate sodium (COLACE) 100 mg capsule Take 100 mg by mouth twice daily. - cloZAPine (CLOZARIL) 100 mg tablet - polyethylene glycol 3350 (MIRALAX) 17 gram packet Take 1 Packet by mouth once daily. - benztropine (COGENTIN) 2 mg tablet Take 2 mg by mouth twice daily. - clonazePAM (KLONOPIN) 1 mg tablet Take 1 mg by mouth twice daily as needed. - FLUoxetine HCl (PROZAC) 40 mg capsule Take 40 mg by mouth once daily. - haloperidol (HALDOL) 10 mg tablet Take 10 mg by mouth four times daily. I have interviewed and examined the patient. I have reviewed the medical record and/or the pre-anesthesia evaluation, pertinent labs, and test results. This contains updated information obtained within 48 hours of Surgery/Procedure. SIGNATURE: Jared Arriaga MD PATIENT NAME: Rj Gonzales DATE: July 12, 2021 TIME: 9:18 AM CSN: [id number] [facility] HISTORY PHYSICALon HISTORY PHYSICAL HNO ID: [id number] Author: Arnold Germain MD Service: Colorectal Author Type: Physician Type: HANDP Filed: 07/12/2021 10:39 AM Note Text: PROCEDURAL SEDATION HISTORY AND PHYSICAL EXAM SERVICE DATE: 07/12/2021 SERVICE TIME: Subjective HPI: This is a 21 year old male who presents with PAST ANESTHESIA HISTORY: No history of adverse event PAST MEDICAL HISTORY Diagnosis Date - Attention deficit hyperactivity disorder - MR (mental retardation) - Schizophrenia (HCC) - Tic disorder PAST SURGICAL HISTORY Procedure Laterality Date - ABDOMINAL SURGERY HX Prior to Admission medications as of 07/12/21 0853 Medication Sig Last Dose Taking risperiDONE (RISPERDAL) 1 mg tablet Take 1 mg by mouth. 07/12/2021 at Unknown time Yes loratadine (CLARITIN) 10 mg tablet Take 10 mg by mouth. 07/11/2021 at Unknown time Yes calcium polycarbophil (FIBERCON) 625 mg tablet Take 625 mg by mouth. 07/12/2021 at Unknown time Yes docusate sodium (COLACE) 100 mg capsule Take 100 mg by mouth twice daily. 07/11/2021 at Unknown time Yes cloZAPine (CLOZARIL) 100 mg tablet 07/12/2021 at Unknown time Yes polyethylene glycol 3350 (MIRALAX) 17 gram packet Take 1 Packet by mouth once daily. 07/11/2021 at Unknown time Yes benztropine (COGENTIN) 2 mg tablet Take 2 mg by mouth twice daily. 07/12/2021 at Unknown time Yes clonazePAM (KLONOPIN) 1 mg tablet Take 1 mg by mouth twice daily as needed. 07/12/2021 at Unknown time Yes FLUoxetine HCl (PROZAC) 40 mg capsule Take 40 mg by mouth once daily. 07/12/2021 at Unknown time Yes haloperidol (HALDOL) 10 mg tablet Take 10 mg by mouth four times daily. 07/12/2021 at Unknown time Yes ALLERGIES No Known Allergies Objective PHYSICAL EXAM: The remainder of the physical exam is noncontributory. AIRWAY: LUNGS: Lungs clear to auscultation, Good diaphragmatic excursion CARDIAC: Normal S1 and S2; no rubs, murmurs, or gallops Assessment/Plan ASA Class: Active Problems: * No active hospital problems. * Resolved Problems: * No resolved hospital problems. * Provisional Diagnosis/Treatment Plan: SIGNATURE: Arnold Germain MD PATIENT NAME: Rj Gonzales DATE: July 12, 2021 TIME: 10:39 AM [facility] HISTORY PHYSICALon HISTORY PHYSICAL HNO ID: [id number] Author: Zahira Ivy PA-C Service: ? Author Type: Physician Greens Picker Type: HANDP Filed: 07/10/2021 2:28 PM Note Text: HISTORY AND PHYSICAL EXAMINATION SERVICE DATE: 07/10/2021 SERVICE TIME: 1:55 PM PRIMARY CARE PHYSICIAN: No primary care provider on file. REASON FOR VISIT: Rj Gonzales is a 21 year old male who is scheduled for RECTAL EXAM UNDER ANESTHESIA AND BANDING OF HEMORRHOID at the request of Dr. Arnold Germain for consultation. My final recommendation will be communicated back to the requesting physician by way of shared medical record or letter. The patient has the following: ACTIVE PROBLEM LIST Developmental Delay Schizophrenia (Hcc) Subjective CHIEF COMPLAINT: Rectal Bleeding HPI: 21 year old male with a history of MR/DD and schizophrenia presents for PAT today with a caregiver from his snf. States he is having around 5 bowel movements daily. Rj denies diarrhea, but his caregiver states that he will spend a long time in the restroom, grunting and straining. He states that there is always blood in the toilet and when he wipes. Denies rectal pain. His caregiver feels that it has been getting worse recently and Rj asked to return to the office for evaluation. PAST MEDICAL HISTORY Diagnosis Date - Attention deficit hyperactivity disorder - MR (mental retardation) - Schizophrenia (HCC) - Tic disorder PAST SURGICAL HISTORY Procedure Laterality Date - ABDOMINAL SURGERY HX No family history on file. SOCIAL HISTORY: Social History Tobacco Use - Smoking status: Never Smoker - Smokeless tobacco: Never Used Substance Use Topics - Alcohol use: No - Drug use: No MEDICATIONS: Prior to Admission medications as of 07/10/21 1354 Medication Sig Last Dose Taking risperiDONE (RISPERDAL) 1 mg tablet Take 1 mg by mouth. Taking Yes loratadine (CLARITIN) 10 mg tablet Take 10 mg by mouth. Taking Yes calcium polycarbophil (FIBERCON) 625 mg tablet Take 625 mg by mouth. Taking Yes docusate sodium (COLACE) 100 mg capsule Take 100 mg by mouth twice daily. Taking Yes cloZAPine (CLOZARIL) 100 mg tablet Taking Yes polyethylene glycol 3350 (MIRALAX) 17 gram packet Take 1 Packet by mouth once daily. Taking Yes benztropine (COGENTIN) 2 mg tablet Take 2 mg by mouth twice daily. Taking Yes clonazePAM (KLONOPIN) 1 mg tablet Take 1 mg by mouth twice daily as needed. Taking Yes FLUoxetine HCl (PROZAC) 40 mg capsule Take 40 mg by mouth once daily. Taking Yes haloperidol (HALDOL) 10 mg tablet Take 10 mg by mouth four times daily. Taking Yes No medication comments found. CURRENT ALLERGIES: ALLERGIES No Known Allergies COVID VACCINATION STATUS: Fully vaccinated REVIEW OF SYSTEMS: PAIN ASSESSMENT: General: No weight loss, malaise or fevers. Neuro: No history of TIA's, stroke, ENVELOPE FOLDER tumor, impaired sensorium, hemiplegia, paraplegia or quadraplegia. No neurological symptoms or problems. + MR / DD Respiratory: No history of current cough or dyspnea, or pneumonia in the past 6 weeks. No history of respiratory/pulmonary symptoms or problems. Cardiovascular: No history of HTN requiring medication, no history of angina, CHF, DC, cardiac surgery or stents. Denies rest pain, gangrene or revascularization/amputa tion for PVD. No history of cardiovascular symptoms or problems. GI: No history of GI symptoms or problems. No history of esophageal varices, recent ascites, or ETOH greater than 2 drinks per day. : No history of dysuria, frequency or incontinence,, stones or chronic kidney disease Endocrine: No history of diabetes. Has not taken steroids within the past 30 days. No history of endocrinological symptoms or problems. Hematology: No history of bleeding or clotting disorder. Pt is not taking anti-coagulation or platelet medications. No history of hematological symptoms or problems. Oncology: No history of CA metastasis, chemo within 30 days, or radiotherapy within 90 days. Has not lost 10% of body wt in 6 months. No history of oncological symptoms or problems. Psych: No history of psychiatric symptoms or problems. Musculoskeletal: Negative for joint pain or swelling, back pain or muscle pain. Skin: Negative for lesions, rash and itching. Objective PHYSICAL EXAM: VITALS: Ht 5' 10 (1.78m) Wt 224 lb (101.6kg) BMI 32.14 kg/(m2). General: Alert and oriented, No acute distress Skin: Normal color, no rash, no lesions. HEENT: EOM, pupils equal, round and reactive. Cardiovascular: Normal S1 AND S2, no rubs, murmurs or gallops. No JVD. Pulse regular. Lungs: Normal breath sounds, no wheezes or crackles. Abdomen: Soft, non-tender, no rigidity. Extremities: No deformity, no edema or tenderness, no joint swelling or clubbing. Neurological: Normal cognition and motor skills. Pulses: Carotid and radial pulses normal +2. Diagnostic tests reviewed for today's visit: No results found for: (more content not included)... 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 Call to discuss [phone] Sara Rose ADM 07/06/2021 11:12 AM Signed Ksaia nurse aware of 07/12 procedure date. Would like the nurse to call to advise any prep instructions other than fasting after midnight. Call Nurse Kasia mgr [phone] Cristal Suarez APRN.[facility] 07/06/2021 12:27 PM Signed Call returned. Reviewed NPO after midnight and scheduled PACCs appointment. Allergies As of Date: 07/05/2021 (No Known Allergies) Date Reviewed: 06/29/2021 Reviewed by: Arnold Germain MD - Fully Assessed Reason for Visit: procedure info [Other] Cmt: discuss plan Primary Visit Diagnosis:Hemorrhoids, internal, with bleeding [K64.8] Order(s):VIRTUAL CONSULT TO PACC [1650630] Order #: [id number]: 1 FUTURE Prescriptions as of 07/06/2021 - docusate sodium (COLACE) 100 mg capsule Take 100 mg by mouth twice daily. - cloZAPine (CLOZARIL) 100 mg tablet - polyethylene glycol 3350 (MIRALAX) 17 gram packet Take 1 Packet by mouth once daily. - benztropine (COGENTIN) 2 mg tablet Take 2 mg by mouth twice daily. - clonazePAM (KLONOPIN) 1 mg tablet Take 1 mg by mouth twice daily as needed. - FLUoxetine HCl (PROZAC) 40 mg capsule Take 40 mg by mouth once daily. - haloperidol (HALDOL) 10 mg tablet Take 10 mg by mouth four times daily. 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 They relate that he is having around 5 bowel movements daily. Rj denies diarrhea, but his caregiver states that he will spend a long time in the restroom, grunting and straining. He states that there is always blood in the toilet and when he wipes. It makes him very nervous and he will wipe the blood on the hebert. His caregiver feels that it has been getting worse recently and Rj asked to return to the office for evaluation PAST MEDICAL HISTORY Diagnosis Date - Attention deficit hyperactivity disorder - MR (mental retardation) - Schizophrenia (HCC) - Tic disorder PAST SURGICAL HISTORY Procedure Laterality Date - ABDOMINAL SURGERY HX Current Outpatient Medications Medication Sig Dispense Refill - docusate sodium (COLACE) 100 mg capsule Take 100 mg by mouth twice daily. - cloZAPine (CLOZARIL) 100 mg tablet - polyethylene glycol 3350 (MIRALAX) 17 gram packet Take 1 Packet by mouth once daily. 30 Packet 5 - benztropine (COGENTIN) 2 mg tablet Take 2 mg by mouth twice daily. - clonazePAM (KLONOPIN) 1 mg tablet Take 1 mg by mouth twice daily as needed. - FLUoxetine HCl (PROZAC) 40 mg capsule Take 40 mg by mouth once daily. - haloperidol (HALDOL) 10 mg tablet Take 10 mg by mouth four times daily. No current facility-administered medications for this visit. ALLERGIES No Known Allergies No family history on file. Social History Tobacco Use - Smoking status: Never Smoker - Smokeless tobacco: Never Used Substance Use Topics - Alcohol use: No - Drug use: No Physical Exam: BP 125/77 Pulse 88 Ht 177.8 cm (5' 10 ) Wt 100.8 kg (222 lb 4.8 oz) BMI 31.90 kg/m? 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 Our plan is to perform an EUA and rubber band ligation of internal hemorrhoids at the [facility]. Medical Decision Making: Arnold Germain MD Colorectal Surgery Referring Provider: ELHAM VAN [[id number]] Allergies As of Date: 06/29/2021 (No Known Allergies) Date Reviewed: 06/29/2021 Reviewed by: Arnold Germain MD - Fully Assessed Reason for Visit: Rectal Problem [93] Cmt: Rectal bleeding Primary Visit Diagnosis:Grade I hemorrhoids [K64.0] Prescriptions as of 06/29/2021 - docusate sodium (COLACE) 100 mg capsule Take 100 mg by mouth twice daily. - cloZAPine (CLOZARIL) 100 mg tablet - polyethylene glycol 3350 (MIRALAX) 17 gram packet Take 1 Packet by mouth once daily. - benztropine (COGENTIN) 2 mg tablet Take 2 mg by mouth twice daily. - clonazePAM (KLONOPIN) 1 mg tablet Take 1 mg by mouth twice daily as needed. - FLUoxetine HCl (PROZAC) 40 mg capsule Take 40 mg by mouth once daily. - haloperidol (HALDOL) 10 mg tablet Take 10 mg by mouth four times daily. Problem List As Of Date: 06/29/2021 (None) Encounter Status:Closed by ARNOLD GERMAIN on 06/29/21 [facility] -------- RJ GONZALES ([id number]) 2000 M Date Time Provider Department 05/22/21 ARNOLD GERMAIN [facility] During your visit today, we recorded the following information about you: Tamiko Sweeney 05/22/2021 3:28 PM Signed Ph. [phone] Alivia, who works for [employer], was transferred to Dr. Van's office from the appt line. Alivia needs to schedule Ryheam for rectal prolapse. Upon speaking with Alivia, Rj's prolapse only happens occasionally when he is constipated and/or sitting on the commode straining for long periods of time, sometimes for 2 hours. She stated that he is taking Miralax but is still straining. Dr. Germain, would you like me to schedule Ryheam for ARM, or would you like to follow up with him? Thank you Nona Banks RN 05/23/2021 2:21 PM Signed Will assist in scheduling pt for follow up. 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 - benztropine (COGENTIN) 2 mg tablet Take 2 mg by mouth twice daily. - clonazePAM (KLONOPIN) 1 mg tablet Take 1 mg by mouth twice daily as needed. - FLUoxetine HCl (PROZAC) 40 mg capsule Take 40 mg by mouth once daily. - haloperidol (HALDOL) 10 mg tablet Take 10 mg by mouth four times daily. Problem List As Of Date: 05/22/2021 (None) Encounter Status:Closed by NONA BANKS on 05/23/21 Normal [facility] Coding Summary.on 05-01-2018 Coding Summary. CODING DATE: 018 FINAL [facility] STATUS: Home (Routine DC) PAYOR: Medicaid EAPG DESCRIPTION 0390 LEVEL I PATHOLOGY 0149 SCREENING COLORECTAL SERVICES 0380 ANESTHESIA ADMIT DX: REASON FOR VISIT DX: K62.5 Hemorrhage of anus and rectum FINAL DX: PRINCIPAL: K62.5 Hemorrhage of anus and rectum SECONDARY: K62.3 Rectal prolapse K62.89 Other specified diseases of anus and rectum K59.00 Constipation, unspecified Z53.8 Procedure and treatment not carried out for other reasons F99 Mental disorder, not otherwise specified PYMT PROC EAPG STAT DESCRIPTION DOCTOR NAME DATE 96841 0149 Colonoscopy, flexible; Colin Shirley MD 04/17/2018 with biopsy, single or multiple 74 Discontinued [facility] Procedure After Administration of Anesthe 85696 Anesthesia for Colin Peñaloza MD 04/17/2018 intestinal endoscopic procedures, endoscope introduced distal to duodenum; not otherwise specified NOTE: The code number assigned matches the documented diagnosis and / or procedure in the patient's chart. However, the narrative phrase printed from the coding software may appear abbreviated, or result in slightly different terminology. Coded By: Sary Little Date Saved: 05/01/2018 08:02 am Normal [facility] Coding Summary. CODING DATE: 018 FINAL [facility] STATUS: Home (Routine DC) PAYOR: Medicaid EAPG DESCRIPTION 0390 LEVEL I PATHOLOGY 0149 SCREENING COLORECTAL SERVICES 0380 ANESTHESIA ADMIT DX: REASON FOR VISIT DX: K62.5 Hemorrhage of anus and rectum FINAL DX: PRINCIPAL: K62.5 Hemorrhage of anus and rectum SECONDARY: K62.3 Rectal prolapse K62.89 Other specified diseases of anus and rectum K59.00 Constipation, unspecified F99 Mental disorder, not otherwise specified PYMT PROC EAPG STAT DESCRIPTION DOCTOR NAME DATE 12262 0149 Colonoscopy, flexible; Colin Shirley MD 04/17/2018 with biopsy, single or multiple 74 Discontinued [facility] Procedure After Administration of Anesthe 48732 Anesthesia for Colin Peñaloza MD 04/17/2018 intestinal endoscopic procedures, endoscope introduced distal to duodenum; not otherwise specified NOTE: The code number assigned matches the documented diagnosis and / or procedure in the patient's chart. However, the narrative phrase printed from the coding software may appear abbreviated, or result in slightly different terminology. Coded By: Sary Little Date Saved: 04/23/2018 11:46 am Normal [facility] Progress Note-Physicianon Progress Note-Physician Patient: RJ GONZALES Age: 17 years Sex: Male : 2000 Associated Diagnoses: None Author: Quincy Ojeda Jr, DO Preoperative Information Anesthesia results Review of Systems Cardiovascular: Negative. Respiratory: Negative. Health Status Allergies: Allergic Reactions (Selected)No Known Medication Allergies Current medications: (Selected) Documented MedicationsDocumentedCol chad: 100 mg, Oral, Daily, Refills(s) 0, Constipationbenztropine: 2 mg, Oral, BID, Refills(s) 0, Spasmclonazepam: 0.5 mg, Oral, BID, Refills(s) 0, Seizureclozapine 100 mg oral tablet: 100 mg = 1 tab(s), Oral, BID, # 21 tab(s), Refills(s) 0, Psychosisfluoxetine: 40 mg, Oral, BID, Refills(s) 0, Depressionhaloperidol: 10 mg, Oral, BID, Refills(s) 0, Psychosisrisperidone: 1 mg, Oral, BID, Refills(s) 0, Psychosis, Home Medications (7) Activebenztropine 2 mg, Oral, BIDclonazepam 0.5 mg, Oral, BIDclozapine 100 mg oral tablet 100 mg = 1 tab(s), Oral, BIDColace 100 mg, Oral, Dailyfluoxetine 40 mg, Oral, BIDhaloperidol 10 mg, Oral, BIDrisperidone 1 mg, Oral, BID Problem list: No problem items selected or recorded. Histories Past Medical History: No active or resolved past medical history items have been selected or recorded. Social History Social & Psychosocial HabitsNo Data Available. Physical Examination Airway: Mallampati classification: II (soft palate, fauces, uvula visible). Respiratory: Lungs are clear to auscultation. Cardiovascular: Regular rhythm. Neurologic: Alert, Oriented. Plan [place] [employer] Anesthesiologists (ASA) physical status classification: Class II. Anesthetic Preoperative Plan Anesthesia: General. . Anesthetic plan, risks, benefits, and alternatives discussed with the patient and/or family. Communication: face to face with (patient 5 minutes, Patient educated on smoking cesstation). [facility] Comment on above: Result Comment: Elec tronically Signed By: Rusty Fagan DO, Quincy Gregory\.karen\Date and Time Signed: 04/28/18 08:15 EDT Main OR Intraoperative Recor don 04-20-2018 Main OR Intraoperative Record IntraOp Document Type FT Summary Primary Physician: Colin Shirley MD Finalized Date/Time: 04/20/18 09:38:35 Pt. Name: RJ GONZALESO.B./Sex: 2000 Male Med Rec #: [id number] Physician: Colin Shirley MD Financial #: [id number] Pt. 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 Case Attendance FT Entry 1 Entry 2 Entry 3 Case Attendee Casper GAUTAM, Colin Rene RN, Ashlee Boyd CST, Troi Role Performed Surgeon - Primary Securities Sales Associate - Primary Scrub - Primary Time In 04/17/18 13:14:00 04/17/18 13:14:00 04/17/18 13:14:00 Time Out 04/17/18 13:32:00 04/17/18 13:32:00 04/17/18 13:32:00 Procedure COLONOSCOPY(.) COLONOSCOPY(.) COLONOSCOPY(.) Comments Last Modified By: Anju RN, Ashlee Rene RN, Ashlee Rene RN, Ashlee 04/17/18 13:32:29 04/17/18 13:32:29 04/17/18 13:32:29 Entry 4 Entry 5 Entry 6 Case Attendee [facility] Zenaida Palomares Carly C Tech, Amy C Role Performed Scrub - Other Scrub - Other Anesthesiologist Greens Picker Time In 04/17/18 13:14:00 04/17/18 13:14:00 04/17/18 13:14:00 Time Out 04/17/18 13:32:00 04/17/18 13:32:00 04/17/18 13:32:00 Procedure COLONOSCOPY(.) COLONOSCOPY(.) COLONOSCOPY(.) Comments ORIENTING help in room Dr. Pineda supervising Last Modified By: Anju RN, Ashlee Rene RN, Ashlee Rene RN, Ashlee 04/17/18 13:32:29 04/17/18 13:32:29 04/17/18 13:32:29 Perioperative Protocols FT Pre-Care Text: Implements protective measures prior to operative or invasive procedure, confirms identity before the operative or invasive procedure, verifies operative procedure, surgical site, and laterality Entry 1 Procedure(s) COLONOSCOPY(.) Patient Identity Birthday, ID Band Verified (select at Check, Patient least 2): Participation Consents / H and P Anesthesia Consent, Operative Site N/A Verified HandP, Surgery/Procedure Marking Verified Consent Surgical Site Yes Laterality Verified n/a Verified Procedure Verified Yes Correct Patient Yes Position Verified Availability Equipment, Medication Prep Dry n/a Verified (If Applicable) PreOp Antibiotic No Time Out Casper GAUTAM, Colin, Given Participants Ashlee Rene RN, Brown CAA, Carly C, Rice CST, Molly, [facility] Magi Hammond Miles, Kirstyn K Time Out Complete 04/17/18 13:16:00 Outcomes Met? Yes Last Modified By: Ashlee Rene RN 04/17/18 13:22:01 Post-Care Text: The patient is free from signs and symptoms of injury caused by extraneous objects Allergy Information FT Pre-Care Text: Verifies allergies Entry 1 Allergies Reviewed? Yes Allergies Reviewed Self/Patient With Outcomes Met? Yes Last Modified By: Ashlee Rene RN 04/17/18 07:22:46 Post-Care Text: The patient received appropriate medication(s) safely administered during the perioperative period Surgical Procedures FT Entry 1 Procedure Description Procedure COLONOSCOPY Modifiers . Surgeon Description COLONOSCOPY performed up to ascending colon only d/t poor prep on right side of colon , biopsy of nodular mucosa in sigmoid colon and rectal biopsy. Primary Procedure Yes Primary Surgeon Colin Shirley MD 04/17/18 13:18:00 Stop 04/17/18 13:29:00 Anesthesia Type General Surgical Service Gastroenterology Wound Class 2 - Clean-Contaminated Last Modified By: Ashlee Rene RN 04/17/18 13:31:19 General Case Data FT Pre-Care Text: Classifies surgical wound, implements aseptic technique, initiates traffic control Entry 1 Case Information OR ENDO 1 FT Case Level Level 2 Wound Class 2 - Clean-Contaminated Specialty Gastroenterology ASA Class 2 Preop Diagnosis RECTAL HEMORRHAGE Postop Same As Preop No Postop Diagnosis Nodular mucosa in Outcomes Met? Yes sigmoid colon, proctitis, decreased anal tone and poor prep in the right side of colon. Last Modified By: Addie Oreilly CST 04/20/18 09:38:33 Post-Care Text: The patient is free from signs and symptoms of infection Skin Assessment (Pre Procedure) FT Pre-Care Text: Implements protective measures to prevent skin/ tissue injury due to thermal or mechanical sources Evaluates for signs and symptoms of physical injury to skin and tissue Entry 1 Skin Integrity Intact, Marmet, Warm, and Skin Abnormality No Dry Outcomes Met? Yes Last Modified By: Ashlee Rene RN 04/17/18 07:23:14 Post-Care Text: The patient is free from signs and symptoms of injury caused by extraneous objects Patient Positioning FT Pre-Care Text: Identifies physical alterations that require additional precautions for procedure-specific positioning, verifies presence of prosthetics or corrective devices, positions the patient, evaluates the patient for signs and symptoms of injury as a result of positioning Entry 1 Procedure COLONOSCOPY(.) Body Position Lateral, right side up Feet Uncrossed? Yes Left Arm Position Resting at Side Right Arm Position Resting at Side Left Leg Position Extended Right Leg Position Extended Positioning Device Pillow Under Head Large, Safety Strap Press Points Checked Yes By Ashlee Rene RN, Brown CAA, Carly C Outcomes Met? Yes Last Modified By: Ashlee Rene RN 04/17/18 13:22:37 Post-Care Text: The patient is free from signs and symptoms of injury related to positioning Patient Care Devices FT Pre-Care Text: Implements protective measures to prevent skin/ tissue injury due to thermal or mechanical sources Entry 1 Entry 2 Equipment Type ENDOSCOPY VIDEO MONITOR CHARGE SURGERY SYSTEM[F] [F] Equipment Number [id number] [id number] Equipment Setting Outcomes Met? Yes Yes Last Modified By: Ashlee Rene RN, RN, Angela 04/17/18 07:23:36 04/17/18 07:23:36 Post-Care Text: The patient is free from signs and symptoms of injury caused by extraneous objects Transport To OR FT Pre-Care Text: Transports according to individual needs. Evaluates for signs and symptoms of skin and tissue injury as a result of transfer or transport Entry 1 Via Cart By Ashlee Rene RN Safety Precautions Safety Strap, Side Outcomes Met? Yes Rails Up Last Modified By: Ashlee Rene RN 04/17/18 07:23:42 Post-Care Text: The patient is free from signs and symptoms of injury related to transfer/transport Departure From OR FT Pre-Care Text: Transports according to individual needs. Evaluates for signs and symptoms of skin and tissue injury as a result of transfer or transport. Entry 1 Via Cart Safety Precautions Safety Strap, Side Rails Up PostOp Destination PACU Transported By Ashlee Rene RN Patient Status Stable Skin. Condition Intact, Marmet, Warm, and Dry Airway Maintenance Oxygen in Use? No Airway Device N/A Outcomes Met? 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 Yes Verified Last Modified By: Ashlee Rene RN 04/17/18 07:24:05 Post-Care Text: The patient received appropriate medication(s) safely administered during the perioperative period For [place] please see scanned medication reconcilliation form for medications used at the field during the procedure. Cultures and Specimens FT Pre-Care Text: Manages specimen handling and disposition Manages culture specimen collection Entry 1 Cultures Ordered n/a Specimens Ordered Yes Specimen Disposition Designated OR Area Frozen Section Times Outcomes Met? Yes Last Modified By: Ashlee Rene RN 04/17/18 13:26:46 Post-Care Text: The patient is free from signs and symptoms of injury caused by extraneous objects The patient is free from signs and symptoms of infection Case Comments Finalized By: Addie Oreilly CST Document Signatures Signed By: Ashlee Rene RN 04/17/18 13:32 Addie Oreilly CST 04/20/18 09:38 Normal [facility] History and Physicalon 04-17 History and Physical Date: 03/10/2018 2:15 PMPatient Name: Rj GonzalesAccount #: [id number]: MaleDOB (age): 2000 (17)Provider: Annie Benton Complaint: Change in Bowel habits Blood in StoolHistory of Present Illness:17 years old -[place] male with multiple psychiatric problems, lives in a snf, referred to me to be evaluatedfor rectal bleeding, patient reports feeling it to show protruding out of the anal area after straining for bowel movement,typically he pushes it back in, he reports sporadic rectal bleeding, no nausea or vomiting, no fever or chills, he is on Colacedaily for chronic constipationPast Medical HistoryMedical Conditions: No Known ConditionsSurgical Procedures: No Prior ProceduresDx Studies: No Prior Diagnostic StudiesMedications: benztropine 2 mg Take 1 tablet by mouth twice a dayclonazepam 0.5 mg Take 1 tablet by mouth twice a dayclozapine 100 mg Take 1 tablet by mouth twice a dayColace 100 mg Take capsule by mouth as neededfluoxetine 40 mg Take 1 capsule by mouth twice a dayhaloperidol 10 mg Take 1 tablet by mouth twice a dayrisperidone 1 mg Take 1 tablet by mouth twice a dayAllergies: Patient has no known allergiesImmunizations: No ImmunizationsSocial HistoryAlcohol: NoneTobacco: Never smokerDrugs: NoneExercise: NoneCaffeine: NoneMarital Status: SingleFamily History No Knowledge Of Family HistoryReview of Systems:Allergic/Immunol ogic: Denies strong allergic reactions or urticaria, HIV exposure, Immune Deficiency, persistentinfections.Car diovascular: Denies chest pain, dyspnea with exercise, irregular heart beat, orthopnea, palpitations,peripheral edema, syncope.Constitutional: Denies fatigue, fever, loss of appetite, malaise, sweats, weight gain, Arthritis, weight loss,exhaustion, chills.ENMT: Denies difficulty swallowing, dizziness, ear pain, nasal obstruction, nose bleeds, sore throat, eardischarge, frequent infections, hearing loss, high pitched ringing, hoarseness, nasal discharge.Endocrine: Denies cold intolerance, excessive eating, excessive thirst, excessive urination, hair loss, heatintolerance.Eyes: Denies double vision, loss of vision, photophobia, blurred vision, pain, wearing glasses/contacts.Gastroi ntestinal: Complains of black stools, bloating, blood in stools, change in bowel habits,constipation, diarrhea, rectal bleeding, rectal urgency, stool incontinence, stomachPrinted on 04/10/2018 Rj Gonzales, [id number], 2000 Page 1 of 4Printed on 04/10/2018 Rj Gonzales, [id number], 2000cramps, straining. Denies abdominal pain, abdominal swelling, gas, heartburn, jaundice,nausea, vomiting.Genitourinary: Denies dark urine, decrease in urine flow, dysuria, frequent urinary infections, frequenturination, hematuria, impotence, nocturia, urethral discharge or incontinence, sexual difficulty,sexual transmitted diseases, kidney disease, kidney stones, pain with urination.Hematologic/Ly mphatic: Denies bleeding gums or palpable lymph nodes, easy bruising, prolonged bleeding, swollenglands.Integument ashia: Denies allergies, dryness, hives, itching, jaundice, lesions, rashes.Musculoskeletal: Denies arthritis, back pain, gout, joint deformity, joint pain, muscle weakness, stiffness, jointswelling, muscle pain.Neurological: Denies dizziness, fainting, frequent headaches, migraine, numbness or tingling, seizures,tremors, vertigo, memory disturbance.Psychiatric: Denies anxiety, depression, difficulty sleeping, hallucinations, nervousness, panic attacks,paranoia, abnormal stress, inability to concentrate, suicidal ideation.Respiratory: Denies asthma, cough, dyspnea, excessive sputum, hemoptisis, shortness of breath withexercise, wheezing, coughing up blood.Vital Signs:BP(mmHg)Pulse(ppm) Rhythm Weight (lbs/oz) Resp/min Agro619/68 82 Regular 191 / 12 98.3 (F)Physical Exam:Constitutional:Appmalik hutsonnce: well developed, well nourished, normal habitus, no deformities, in no acute distress..Skin:Inspectio n: no rashes, ulcers, icterus or other lesions; no clubbing or telangiectasias..Palpati on: no induration or subcutaneos nodules..Eyes:Conjunctiv ae/lids: normal conjunctivae and lids..Pupils/irises: symmetrical, normoreactive to light, normal accommodation and size..ENMT:Hearing: within normal limits.Lips/teeth/gums: normal oral mucosa,lips and gums; good dentition.Neck:Neck: normal motion, central trachea.Respiratory:Perc ussion: thorax normoresonant.Auscultati on: normal breath sounds; no rubs, wheezes, rale or ronchi.Cardiovascular:Au scultation: normal rhythm, S1 and S2; no rubs, murmurs or gallop.Peripheral: no edema, varicocities or cyanosis..Gastrointestin al/Abdomen:Abdomen: normal consistency and bowel sounds; no tenderness or masses..Liver/Spleen: normal size and consistency, not palpable.Hernias: no hernias appreciated.Rectal: deferred.Musculoskeletal :Gait/station: normal gait and station.Digits/nails: no clubbing, cyanosis, petechiae or other inflammatory conditions.Psychiatric:J udgment/insight: within normal limits.Orientation: oriented to time, space and person.Memory: within normal limits for recent and remote events.Mood and affect: no evidence of depression, anxiety or agitation.Impressions: Rectal hemorrhageConstipationPl an: Colonoscopy will be performed at [facility] .Printed on 04/10/2018 Rj Gonzales, [id number], 2000 Page 2 of 4Printed on 04/10/2018 Rj Gonzales, [id number], 2000Risk & Medical Necessity: Diagnosis and management options are Extensive. The amount of data reviewedand/or ordered is Moderate. The level of risk is Moderate.Colin Shirley MD Rj Gonzales, [id number], 2000 Page 3 of 4Printed on 04/10/2018 Rj Gonzales, [id number], 2000Printed on 04/10/2018 [place], 2000 Page 4 of 4Printed on 04/10/2018 Rj Gonzales, [id number], 2000no change Normal [facility] Comment on above: Result Comment: Elec tronically Signed By: Colin Shirley MD\.br\Date and Time Signed: 04/17/18 13:15 EDT Inpatient Patient Summaryon 04-17-2018 In[facility] InstructionsPERSON INFORMATION Name: RJ GONZALES PHYSICIANS Ad[facility] Phys[facility] Physician: Colin Shirley MD PCP: Murphy WEISS MD Diagnosis: Rectal prolapse Comment: PATIENT EDUCATION INFORMATIONInstructions: Medication Leaflets:Follow up:With: Address: When: Colin Shirley [facility], [address] [place], [place] [address] [address] [facility] (1) Within 1 to 2 weeks MEDICATION LISTComment: [facility] Main OR PACU I Recordon 03-28 Main OR PACU I Record PACU Phase I Document Type FT Summary Primary Physician: Colin Shirley MD Finalized Date/Time: 04/17/18 14:14:33 Pt. Name: RJ GONZALES /Sex: 2000 Male Med Rec #: [id number] Physician: Colin Shirley MD Financial #: [id number] Pt. Type: O Room/Bed: / Admit/Disch: 04/17/18 09:21:54 - Institution: Case Times PACU I FT Pre-Care Text: Identifies barriers to communication and implements measures to provide psychological support Develops individualized plan of care, and ensures continuity of care Maintains patient's dignity and privacy, and maintains patient confidentiality Identifies and reports philosophical, cultural, and spiritual beliefs and values Identifies individual values and wishes concerning care Implements aseptic technique, and administers prescribed antibiotic therapy and immunizing agents as ordered Evaluates postoperative tissue perfusion Implements thermoregulation measures, and monitors body temperature Evaluates postoperative respiratory status Evaluates postoperative cardiac status Evaluates postoperative neurological status Assesses pain control, collaborated in initiating patient-controlled analgesia and implements alternative methods of pain control Verifies allergies, administers prescribed medications and solutions, evaluates response to medications Entry 1 In PACU I 04/17/18 13:30:00 Discharge from PACU 04/17/18 14:00:00 I Outcomes Met? Yes Last Modified By: Essie Guzman RN 04/17/18 14:14:21 Post-Care Text: The patient demonstrates knowledge of the expected response to the operative or invasive procedure The patient's care is consistent with the individualized perioperative plan of care The patient's right to privacy is maintained The patient's value system, lifestyle, ethnicity, and culture are considered, respected, and incorporated into the perioperative plan of care The patient participates in decisions affecting his or her perioperative plan of care The patient is free from signs and symptoms of infection The patient has wound/tissue perfusion consistent with or improved from baseline levels established preoperatively The patient is at or returning to normothermia at the conclusion of the immediate postoperative period The patient's respiratory function is consistent with or improved from baseline levels established preoperatively The patient's cardiovascular status is consistent with or improved from baseline levels established preoperatively The patient's cardiovascular status is consistent with or improved from baseline levels established preoperatively The patient demonstrates and/or reports adequate pain control throughout the perioperative period The patient received appropriate medication(s), safely administered during the perioperative period Acuity Level PACU I FT Entry 1 Start Time 04/17/18 13:30:00 Stop Time 04/17/18 14:00:00 Acuity Level Acuity Level I Last Modified By: Essie Guzman RN 04/17/18 14:14:32 Finalized By: Essie Guzman RN Document Signatures Signed By: Essie Guzman RN 04/17/18 14:14 [facility] Main OR Preoperative Recordo n 04-17-2018 Main OR Preoperative Record Holding Area Document Type FT Summary Primary Physician: Colin Shirley MD Finalized Date/Time: 04/17/18 09:56:12 Pt. Name: RJ GONZALES /Sex: 2000 Male Med Rec #: [id number] Physician: Colin Shirley MD Financial #: [id number] Pt. Type: O Room/Bed: / Admit/Disch: 04/17/18 09:21:54 - Institution: Case Times Holding FT Pre-Care Text: Verifies consent for planned procedure, identifies individual values and wishes concerning care, includes family members in perioperative teaching Secures patient's records' belongings, and valuables, maintains patient's dignity and privacy, and maintains patient confidentiality Entry 1 In Holding 04/17/18 09:30:00 Outcomes Met? 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 CODING DATE: 018 FINAL [facility] STATUS: Home (Routine DC) PAYOR: Medicaid EAPG DESCRIPTION 0390 LEVEL I PATHOLOGY 0490 INCIDENTAL TO MEDICAL, SIGNIFICANT PROCEDURE OR THERAPY VISIT 0496 MINOR PHARMACOTHERAPY 0133 PROCTOSIGMOIDOSCOPY WITH EXCISION OR BIOPSY 0380 ANESTHESIA ADMIT DX: REASON FOR VISIT DX: K62.5 Hemorrhage of anus and rectum FINAL DX: PRINCIPAL: K62.6 Ulcer of anus and rectum SECONDARY: K62.5 Hemorrhage of anus and rectum Z53.8 Procedure and treatment not carried out for other reasons PYMT PROC EAPG STAT DESCRIPTION DOCTOR NAME DATE 27422 0133 Sigmoidoscopy, flexible; Colin Shirley MD 03/30/2018 with biopsy, single or multiple 74 Discontinued [facility] Procedure After Administration of Anesthe 90316 Anesthesia for lower Colin Shirley MD 03/30/2018 intestinal endoscopic procedures, endoscope introduced distal to duodenum; not otherwise specified NOTE: The code number assigned matches the documented diagnosis and / or procedure in the patient's chart. However, the narrative phrase printed from the coding software may appear abbreviated, or result in slightly different terminology. Coded By: Sary Little Date Saved: 04/02/2018 04:16 pm Normal [facility] Progress Note-Physicianon Progress Note-Physician Patient: RJ GONZALES Age: 17 years Sex: Male : 2000 Associated Diagnoses: None Author: Quincy Ojeda Jr, DO Preoperative Information Anesthesia results Review of Systems Cardiovascular: Negative. Respiratory: Negative. Health Status Allergies: Allergic Reactions (Selected)No Known Medication Allergies Current medications: (Selected) Inpatient MedicationsOrderedSodium Chloride 0.9% IV Madonna 1000 mL 1,000 mL: 1,000 mL, IV, 20 mL/hr, Routine, Start date 03/30/18 9:43:00 EDT, 50 hour(s), Total volume (mL): 1,000Documented MedicationsDocumentedCol chad: 100 mg, Oral, Daily, Refills(s) 0, Constipationbenztropine: 2 mg, Oral, BID, Refills(s) 0, Spasmclonazepam: 0.5 mg, Oral, BID, Refills(s) 0, Seizureclozapine 100 mg oral tablet: 100 mg = 1 tab(s), Oral, BID, # 21 tab(s), Refills(s) 0, Psychosisfluoxetine: 40 mg, Oral, BID, Refills(s) 0, Depressionhaloperidol: 10 mg, Oral, BID, Refills(s) 0, Psychosisrisperidone: 1 mg, Oral, BID, Refills(s) 0, Psychosis, Home Medications (7) Activebenztropine 2 mg, Oral, BIDclonazepam 0.5 mg, Oral, BIDclozapine 100 mg oral tablet 100 mg = 1 tab(s), Oral, BIDColace 100 mg, Oral, Dailyfluoxetine 40 mg, Oral, BIDhaloperidol 10 mg, Oral, BIDrisperidone 1 mg, Oral, BID Problem list: No problem items selected or recorded. Histories Past Medical History: No active or resolved past medical history items have been selected or recorded. Social History Social & Psychosocial HabitsNo Data Available. Physical Examination Airway: Mallampati classification: II (soft palate, fauces, uvula visible). Respiratory: Lungs are clear to auscultation. Cardiovascular: Regular rhythm. Neurologic: Alert, Oriented. Plan [place] [employer] Anesthesiologists (ASA) physical status classification: Class II. Anesthetic Preoperative Plan Anesthesia: General. . Anesthetic plan, risks, benefits, and alternatives discussed with the patient and/or family. Communication: face to face with (patient 5 minutes, Patient educated on smoking cesstation). Normal [facility] Comment on above: Result Comment: Elec tronically Signed By: Quincy Ojeda Jr, DO\.br\Date and Time Signed: 04/01/18 07:53 EDT History and Physicalon 03-30 History and Physical Date: 03/10/2018 2:15 PMPatient Name: Rj GonzalesAccount #: [id number]: MaleDOB (age): 2000 (17)Provider: Annie Benton Complaint: Change in Bowel habits Blood in StoolHistory of Present Illness:17 years old -[place] male with multiple psychiatric problems, lives in a snf, referred to me to be evaluatedfor rectal bleeding, patient reports feeling it to show protruding out of the anal area after straining for bowel movement,typically he pushes it back in, he reports sporadic rectal bleeding, no nausea or vomiting, no fever or chills, he is on Colacedaily for chronic constipationPast Medical HistoryMedical Conditions: No Known ConditionsSurgical Procedures: No Prior ProceduresDx Studies: No Prior Diagnostic StudiesMedications: benztropine 2 mg Take 1 tablet by mouth twice a dayclonazepam 0.5 mg Take 1 tablet by mouth twice a dayclozapine 100 mg Take 1 tablet by mouth twice a dayColace 100 mg Take capsule by mouth as neededfluoxetine 40 mg Take 1 capsule by mouth twice a dayhaloperidol 10 mg Take 1 tablet by mouth twice a dayrisperidone 1 mg Take 1 tablet by mouth twice a dayAllergies: Patient has no known allergiesImmunizations: No ImmunizationsSocial HistoryAlcohol: NoneTobacco: Never smokerDrugs: NoneExercise: NoneCaffeine: NoneMarital Status: SingleFamily History No Knowledge Of Family HistoryReview of Systems:Allergic/Immunol ogic: Denies strong allergic reactions or urticaria, HIV exposure, Immune Deficiency, persistentinfections.Car diovascular: Denies chest pain, dyspnea with exercise, irregular heart beat, orthopnea, palpitations,peripheral edema, syncope.Constitutional: Denies fatigue, fever, loss of appetite, malaise, sweats, weight gain, Arthritis, weight loss,exhaustion, chills.ENMT: Denies difficulty swallowing, dizziness, ear pain, nasal obstruction, nose bleeds, sore throat, eardischarge, frequent infections, hearing loss, high pitched ringing, hoarseness, nasal discharge.Endocrine: Denies cold intolerance, excessive eating, excessive thirst, excessive urination, hair loss, heatintolerance.Eyes: Denies double vision, loss of vision, photophobia, blurred vision, pain, wearing glasses/contacts.Gastroi ntestinal: Complains of black stools, bloating, blood in stools, change in bowel habits,constipation, diarrhea, rectal bleeding, rectal urgency, stool incontinence, stomachPrinted on 03/26/2018 Rj Gonzales, [id number], 2000 Page 1 of 4Printed on 03/26/2018 Rj Gonzales [id number], 2000cramps, straining. Denies abdominal pain, abdominal swelling, gas, heartburn, jaundice,nausea, vomiting.Genitourinary: Denies dark urine, decrease in urine flow, dysuria, frequent urinary infections, frequenturination, hematuria, impotence, nocturia, urethral discharge or incontinence, sexual difficulty,sexual transmitted diseases, kidney disease, kidney stones, pain with urination.Hematologic/Ly mphatic: Denies bleeding gums or palpable lymph nodes, easy bruising, prolonged bleeding, swollenglands.Integument ashia: Denies allergies, dryness, hives, itching, jaundice, lesions, rashes.Musculoskeletal: Denies arthritis, back pain, gout, joint deformity, joint pain, muscle weakness, stiffness, jointswelling, muscle pain.Neurological: Denies dizziness, fainting, frequent headaches, migraine, numbness or tingling, seizures,tremors, vertigo, memory disturbance.Psychiatric: Denies anxiety, depression, difficulty sleeping, hallucinations, nervousness, panic attacks,paranoia, abnormal stress, inability to concentrate, suicidal ideation.Respiratory: Denies asthma, cough, dyspnea, excessive sputum, hemoptisis, shortness of breath withexercise, wheezing, coughing up blood.Vital Signs:BP(mmHg)Pulse(ppm) Rhythm Weight (lbs/oz) Resp/min Rfah301/68 82 Regular 191 / 12 98.3 (F)Physical Exam:Constitutional:Appe arance: well developed, well nourished, normal habitus, no deformities, in no acute distress..Skin:Inspectio n: no rashes, ulcers, icterus or other lesions; no clubbing or telangiectasias..Palpati on: no induration or subcutaneos nodules..Eyes:Conjunctiv ae/lids: normal conjunctivae and lids..Pupils/irises: symmetrical, normoreactive to light, normal accommodation and size..ENMT:Hearing: within normal limits.Lips/teeth/gums: normal oral mucosa,lips and gums; good dentition.Neck:Neck: normal motion, central trachea.Respiratory:Perc ussion: thorax normoresonant.Auscultati on: normal breath sounds; no rubs, wheezes, rale or ronchi.Cardiovascular:Au scultation: normal rhythm, S1 and S2; no rubs, murmurs or gallop.Peripheral: no edema, varicocities or cyanosis..Gastrointestin al/Abdomen:Abdomen: normal consistency and bowel sounds; no tenderness or masses..Liver/Spleen: normal size and consistency, not palpable.Hernias: no hernias appreciated.Rectal: deferred.Musculoskeletal :Gait/station: normal gait and station.Digits/nails: no clubbing, cyanosis, petechiae or other inflammatory conditions.Psychiatric:J udgment/insight: within normal limits.Orientation: oriented to time, space and person.Memory: within normal limits for recent and remote events.Mood and affect: no evidence of depression, anxiety or agitation.Impressions: Rectal hemorrhageConstipationPl an: Colonoscopy will be performed at [facility] .Printed on 03/26/2018 Cooper Coto, 2000 Page 2 of 4Printed on 03/26/2018 Rj Gonzales, [id number], 2000Risk & Medical Necessity: Diagnosis and management options are Extensive. The amount of data reviewedand/or ordered is Moderate. The level of risk is Moderate.Colin Shirley MD Rj Gonzales, [id number], 2000 Page 3 of 4Printed on 03/26/2018 Rj Gonzales, [id number], 2000Printed on 03/26/2018 Rj Gonzales, [id number], 2000 Page 4 of 4Printed on 03/26/2018 Rj Gonzales, [id number], 2000No change Normal [facility] Comment on above: Result Comment: Elec tronically Signed By: Colin Shirley MD\.br\Date and Time Signed: 03/30/18 10:52 EDT Inpatient Patient Summaryon 03-30-2018 In[facility] InstructionsPERSON INFORMATION Name: RJ GONZALES PHYSICIANS Ad[facility] Phys[facility] Physician: Colin Shirley MD PCP: Murphy WEISS MD Diagnosis: Internal hemorrhoids Comment: PATIENT EDUCATION INFORMATIONInstructions: Medication Leaflets:Follow up:With: Address: When: Colin Shirley [facility], [address] [place] [address] Pat [facility] [place] [address] Business (1) Within 1 to 2 weeks MEDICATION LISTComment: Normal [facility] Main OR Intraoperative Recor don 03-30-2018 Main OR Intraoperative Record IntraOp Document Type FT Summary Primary Physician: Colin Shirley MD Finalized Date/Time: 03/30/18 11:37:17 Pt. Name: RJ GONZALES /Sex: 2000 Male Med Rec #: [id number] Physician: Colin Shirley MD Financial #: [id number] Pt. 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 Case Attendance FT Entry 1 Entry 2 Entry 3 Case Attendee Rusty Fagan DO, uQincy Miller RN, Tori Capellan CST Role Performed Anesthesiologist of Securities Sales Associate - Primary Scrub - Primary Record Time In 03/30/18 10:56:00 03/30/18 10:56:00 03/30/18 10:56:00 Time Out 03/30/18 11:13:00 03/30/18 11:13:00 03/30/18 11:13:00 Procedure COLONOSCOPY(.) COLONOSCOPY(.) COLONOSCOPY(.) Comments Last Modified By: Paul RN, Francy Miller RN, Francy Miller RN, Francy Gregory 03/30/18 11:14:48 03/30/18 11:14:48 03/30/18 11:14:48 Entry 4 Entry 5 Case Attendee Colin Shirley MD [place] Product Promoter Sales PersonMagi Role Performed Surgeon - Primary Scrub - Other Time In 03/30/18 10:56:00 03/30/18 10:56:00 Time Out 03/30/18 11:13:00 03/30/18 11:13:00 Procedure COLONOSCOPY(.) COLONOSCOPY(.) Comments Orienting Last Modified By: Francy Miller RN, RN, Trisha A 03/30/18 11:14:48 03/30/18 11:14:48 Perioperative Protocols FT Pre-Care Text: Implements protective measures prior to operative or invasive procedure, confirms identity before the operative or invasive procedure, verifies operative procedure, surgical site, and laterality Entry 1 Procedure(s) COLONOSCOPY(.) Patient Identity Birthday, ID Band Verified (select at Check, Patient least 2): Participation Consents / H and P Anesthesia Consent, Operative Site N/A Verified HandP, Surgery/Procedure Marking Verified Consent Surgical Site Yes Laterality Verified n/a Verified Procedure Verified Yes Correct Patient Yes Position Verified Availability Equipment, Medication Prep Dry n/a Verified (If Applicable) PreOp Antibiotic No Time Out Rusty Fagan DO, Quincy Gregory, Given Participants Francy Miller RN, Colin Shirley MD [facility], Oliver Bess CST, Tori Time Out Complete 03/30/18 10:57:00 Outcomes Met? Yes Last Modified By: Francy Miller RN 03/30/18 10:58:28 Post-Care Text: The patient is free from signs and symptoms of injury caused by extraneous objects Allergy Information FT Pre-Care Text: Verifies allergies Entry 1 Allergies Reviewed? Yes Allergies Reviewed Self/Patient With Outcomes Met? Yes Last Modified By: Francy Miller RN 03/30/18 07:35:41 Post-Care Text: The patient received appropriate medication(s) safely administered during the perioperative period Surgical Procedures FT Entry 1 Procedure Description Procedure COLONOSCOPY Modifiers . Surgeon Description Rectal ulcer biopsy, unable to complete colonoscopy due to poor bowel prep. Primary Procedure Yes Primary Surgeon Colin Shirley MD Start 03/30/18 10:59:00 Stop 03/30/18 11:09:00 Anesthesia Type General Surgical Service Gastroenterology Wound Class 2 - Clean-Contaminated Last Modified By: Francy Miller RN 03/30/18 11:11:50 General Case Data FT Pre-Care Text: Classifies surgical wound, implements aseptic technique, initiates traffic control Entry 1 Case Information OR ENDO 1 FT Case Level Level 2 Wound Class 2 - Clean-Contaminated Specialty Gastroenterology ASA Class 2 Preop Diagnosis RECTAL HEMORRHAGE, Postop Same As Preop No CONSTIPATION Postop Diagnosis Rectal ulcers, poor Outcomes Met? Yes bowel prep. Last Modified By: Francy Miller RN 03/30/18 11:10:27 Post-Care Text: The patient is free from signs and symptoms of infection Skin Assessment (Pre Procedure) FT Pre-Care Text: Implements protective measures to prevent skin/ tissue injury due to thermal or mechanical sources Evaluates for signs and symptoms of physical injury to skin and tissue Entry 1 Skin Integrity Intact, Marmet, Warm, and Skin Abnormality No Dry Outcomes Met? Yes Last Modified By: Francy Miller RN 03/30/18 07:36:08 Post-Care Text: The patient is free from signs and symptoms of injury caused by extraneous objects Patient Positioning FT Pre-Care Text: Identifies physical alterations that require additional precautions for procedure-specific positioning, verifies presence of prosthetics or corrective devices, positions the patient, evaluates the patient for signs and symptoms of injury as a result of positioning Entry 1 Procedure COLONOSCOPY(.) Body Position Lateral, right side up Feet Uncrossed? Yes Left Arm Position Resting at Side Right Arm Position Resting at Side Left Leg Position Extended Right Leg Position Extended Positioning Device Pillow Under Head Large, Safety Strap Press Points Checked Yes By Francy Miller RN, Marsh Jr DO, James A Outcomes Met? Yes Last Modified By: Francy Miller RN 03/30/18 07:36:22 Post-Care Text: The patient is free from signs and symptoms of injury related to positioning Patient Care Devices FT Pre-Care Text: Implements protective measures to prevent skin/ tissue injury due to thermal or mechanical sources Entry 1 Entry 2 Equipment Type ENDOSCOPY VIDEO MONITOR CHARGE SURGERY SYSTEM[F] [F] Equipment Number [id number] Equipment Setting Outcomes Met? Yes Yes Last Modified By: Francy Miller RN, RN, Trisha A 03/30/18 07:36:38 03/30/18 07:36:38 Post-Care Text: The patient is free from signs and symptoms of injury caused by extraneous objects Transport To OR FT Pre-Care Text: Transports according to individual needs. Evaluates for signs and symptoms of skin and tissue injury as a result of transfer or transport Entry 1 Via Cart By Francy Miller RN Safety Precautions Safety Strap, Side Outcomes Met? Yes Rails Up Last Modified By: Francy Miller RN 03/30/18 07:36:46 Post-Care Text: The patient is free from signs and symptoms of injury related to transfer/transport Departure From OR FT Pre-Care Text: Transports according to individual needs. Evaluates for signs and symptoms of skin and tissue injury as a result of transfer or transport. Entry 1 Via Cart Safety Precautions Safety Strap, Side Rails Up PostOp Destination PACU Transported By Francy Miller RN Patient Status Stable Skin. Condition Intact, Marmet, Warm, and Dry Airway Maintenance Oxygen in Use? No Airway Device N/A Outcomes Met? Yes Last Modified By: Francy Miller RN 03/30/18 07:37:17 Post-Care Text: The patient is free from signs and symptoms of injury related to transfer/transport General Comments: Report given to PACU,RN./TE,[employer] attendant Administration FT Pre-Care Text: Verifies allergies, administers prescribed medications and solutions, administers prescribed antibiotic therapy and immunizing agents as ordered, evaluates response to medications Administers prescribed medications and solutions Entry 1 Expiration Date Yes Outcomes Met? Yes Verified Last Modified By: Francy Miller RN 03/30/18 07:37:26 Post-Care Text: The patient received appropriate medication(s) safely administered during the perioperative period For [facility] please see scanned medication reconcilliation form for medications used at the field during the procedure. Cultures and Specimens FT Pre-Care Text: Manages specimen handling and disposition Manages culture specimen collection Entry 1 Cultures Ordered n/a Specimens Ordered Yes Specimen Disposition Designated OR Area Frozen Section Times Outcomes Met? Yes Last Modified By: Francy Miller RN 03/30/18 11:06:46 Post-Care Text: The patient is free from signs and symptoms of injury caused by extraneous objects The patient is free from signs and symptoms of infection Case Comments Finalized By: Addie Oreilly CST Document Signatures Signed By: Francy Miller RN 03/30/18 11:14 Addie Oreilly CST 03/30/18 11:37 [facility] Main OR PACU I Recordon Main OR PACU I Record PACU Phase I Document Type FT Summary Primary Physician: Colin Shirley MD Finalized Date/Time: 03/30/18 11:29:28 Pt. Name: RJ GONZALES /Sex: 2000 Male Med Rec #: [id number] Physician: Colin Shirley MD Financial #: [id number] Pt. Type: O Room/Bed: / Admit/Disch: 03/30/18 09:32:43 - Institution: Case Times PACU I FT Pre-Care Text: Identifies barriers to communication and implements measures to provide psychological support Develops individualized plan of care, and ensures continuity of care Maintains patient's dignity and privacy, and maintains patient confidentiality Identifies and reports philosophical, cultural, and spiritual beliefs and values Identifies individual values and wishes concerning care Implements aseptic technique, and administers prescribed antibiotic therapy and immunizing agents as ordered Evaluates postoperative tissue perfusion Implements thermoregulation measures, and monitors body temperature Evaluates postoperative respiratory status Evaluates postoperative cardiac status Evaluates postoperative neurological status Assesses pain control, collaborated in initiating patient-controlled analgesia and implements alternative methods of pain control Verifies allergies, administers prescribed medications and solutions, evaluates response to medications Entry 1 In PACU I 03/30/18 11:15:00 Discharge from PACU 03/30/18 11:45:00 I Outcomes Met? Yes Last Modified By: Essie Guzman RN 03/30/18 11:29:16 Post-Care Text: The patient demonstrates knowledge of the expected response to the operative or invasive procedure The patient's care is consistent with the individualized perioperative plan of care The patient's right to privacy is maintained The patient's value system, lifestyle, ethnicity, and culture are considered, respected, and incorporated into the perioperative plan of care The patient participates in decisions affecting his or her perioperative plan of care The patient is free from signs and symptoms of infection The patient has wound/tissue perfusion consistent with or improved from baseline levels established preoperatively The patient is at or returning to normothermia at the conclusion of the immediate postoperative period The patient's respiratory function is consistent with or improved from baseline levels established preoperatively The patient's cardiovascular status is consistent with or improved from baseline levels established preoperatively The patient's cardiovascular status is consistent with or improved from baseline levels established preoperatively The patient demonstrates and/or reports adequate pain control throughout the perioperative period The patient received appropriate medication(s), safely administered during the perioperative period Acuity Level PACU I FT Entry 1 Start Time 03/30/18 11:15:00 Stop Time 03/30/18 11:45:00 Acuity Level Acuity Level I Last Modified By: Essie Guzman RN 03/30/18 11:29:26 Finalized By: Essie Guzman RN Document Signatures Signed By: Essie Guzman RN 03/30/18 11:29 Normal [facility] Main OR Preoperative Recordo n 03-30-2018 Main OR Preoperative Record Holding Area Document Type FT Summary Primary Physician: Colin Shirley MD Finalized Date/Time: 03/30/18 10:16:59 Pt. Name: RJ GONZALES /Sex: 2000 Male Med Rec #: [id number] Physician: Colin Shirley MD Financial #: [id number] Pt. Type: O Room/Bed: / Admit/Disch: 03/30/18 09:32:43 - Institution: Case Times Holding FT Pre-Care Text: Verifies consent for planned procedure, identifies individual values and wishes concerning care, includes family members in perioperative teaching Secures patient's records' belongings, and valuables, maintains patient's dignity and privacy, and maintains patient confidentiality Entry 1 In Holding 03/30/18 09:49:00 Outcomes Met? Yes Last Modified By: Kathleen Gómez RN 03/30/18 09:51:50 Post-Care Text: The patient participates in decisions affecting his or her perioperative plan of care The patient's right to privacy is maintained Surgery Checklist FT Entry 1 Patient Birthday, ID Band Procedure History and Physical, Identification: Check, Patient Verification: Surgical Consent, With Participation Patient NPO after Midnight: Yes Results Reviewed n/a Comments: Personal Items: Jewelry Personal Items Bracelet Comment: Complaints of Pain: No Pain Comment: None Operative Site n/a Marking: Does Patient Smoke No Patient states Yes Comment - Adult Beth- care provider postop adult Supervision supervision available Case Cancelled in No Holding Area see comments below for reason Last Modified By: Kathleen Gómez RN 03/30/18 09:54:58 General Comments: Pt completed prep at 0540 and remained NPO/JANET,RN Finalized By: Kathleen Gómez RN Document Signatures Signed By: Kathleen Gómez RN 03/30/18 10:16 Normal [facility] Patient Education - Texton 0 03-30-2018 Patient Education - Text [facility] Progress Note-Physicianon Progress Note-Physician Patient: RJ GONZALES Age: 17 years Sex: Male : 2000 Associated Diagnoses: None Author: Quincy Ojeda Jr, DO Postoperative Information Post Operative Note: Post Anesthesia Care Unit. Anesthetic utilized: Monitored anesthesia care. Health Status Allergies: Allergic Reactions (Selected)No Known Medication Allergies Problem list: No problem items selected or recorded. Physical Examination Vital Signs 03/30/2018 11:30 EDT Heart Rate Monitored 72 bpm Respiratory Rate Monitored 16 br/min SpO2 99 % 03/30/2018 11:25 EDT Heart Rate Monitored 72 bpm Respiratory Rate Monitored 10 br/min Systolic Blood Pressure 122 mmHg Diastolic Blood Pressure 83 mmHg SpO2 97 % 03/30/2018 11:20 EDT Heart Rate Monitored 71 bpm Respiratory Rate Monitored 9 br/min Systolic Blood Pressure 120 mmHg Diastolic Blood Pressure 75 mmHg SpO2 98 % 03/30/2018 11:15 EDT Temperature Temporal Artery 36.5 DegC Heart Rate Monitored 67 bpm Respiratory Rate Monitored 10 br/min Systolic Blood Pressure 121 mmHg Diastolic Blood Pressure 82 mmHg Blood Pressure Location Left arm SpO2 100 % 03/30/2018 11:10 EDT Heart Rate Monitored 68 bpm bpm SpO2 100 % % 03/30/2018 11:05 EDT Heart Rate Monitored 69 bpm bpm Systolic Blood Pressure 112 mmHg mmHg Diastolic Blood Pressure 74 mmHg mmHg SpO2 100 % % 03/30/2018 11:00 EDT Heart Rate Monitored 71 bpm bpm Systolic Blood Pressure 109 mmHg mmHg Diastolic Blood Pressure 71 mmHg mmHg SpO2 100 % % 03/30/2018 10:56 EDT Systolic Blood Pressure 120 mmHg mmHg Diastolic Blood Pressure 82 mmHg mmHg 03/30/2018 10:05 EDT Temperature Temporal Artery 36.3 DegC Heart Rate Monitored 76 bpm Respiratory Rate 20 br/min Systolic Blood Pressure 127 mmHg Diastolic Blood Pressure 83 mmHg Blood Pressure Location Left arm SpO2 99 % Vitals Signs (last 24 hrs) Last Charted Minimum MaximumTemp 36.5 (MAR 30 11:15) 36.3 (MAR 30 10:05) 36.5 (MAR 30 11:15)Heart Rate 72 (MAR 30 11:30) 67 (MAR 30 11:15) 76 (MAR 30 10:05)Resp Rate 16 (MAR 30:30) 9 (MAR 30 11:20) 20 (MAR 30 10:05)SBP 122 (MAR 30:25) 109 (MAR 30 11:00) 127 (MAR 30 10:05)DBP 83 (MAR 30:25) 71 (MAR 30 11:00) 83 (MAR 30 10:05)SpO2 99 (MAR 30:30) 97 (MAR 30 11:25) 100 (MAR 30:00) Documented vital signs General: Alert and oriented, No acute distress. Respiratory: Lungs are clear to auscultation. Cardiovascular: Normal rate, Regular rhythm. Neurologic: Normal sensory. Review / Management Condition: Stable. Assessment Anesthetic outcome No anesthetic complications noted. Adequate pain relief. TOLERATING PO INTAKE. voiding w/o diff.. No Complaint of nausea and vomiting. Plan Transfer/ Discharge: Condition stable. Normal [facility] Comment on above: Result Comment: Elec tronically Signed By: Quincy Ojeda Jr, DO\.karen\Date and Time Signed: 03/30/18 11:55 EDT Vital Signs Date Time Vital Sign Value Performing Clinician Pauline mustafa 03-28-2022 11:11-0400 Body height 180.3 cm Arnold Germain MD Work Phone: [facility] 03-28-2022 11:11-0400 Body weight 90.27 kg Arnold Germain MD Work Phone: [facility] 03-28-2022 11:11-0400 Diastolic blood pressure 65 mm[Hg] Arnold Germain MD Work Phone: [facility] 03-28-2022 11:11-0400 Heart rate 80 /min Arnold Germain MD Work Phone: [facility] 03-28-2022 11:11-0400 SaO2% (BldA) [Mass fraction] 100 % Arnold Germain MD Work Phone: [facility] 03-28-2022 11:11-0400 Systolic blood pressure 108 mm[Hg] Arnold Germain MD Work Phone: [facility] Encounters Encounter Date Encounter Type Care Provider Facility Start: 09-04-2023 ambulatory Jean Carlos Boudreaux acility:[facility] Start: 03-26-[address] DOCTOR MISC Facility :[facility] Start: 02-19-2023 End: 02-20-[address] DOCTOR MISC Facility:[facility] Start: 01-15-2023 End: 01-16-[address] DOCTOR MISC Facility:[facility] Start: 12-20-2022 End: 12-21-[address] DOCTOR MISC Facility:[facility] Start: 11-20-2022 End: 11-21-[address] DOCTOR MISC Facility:[facility] Start: 10-11-2022 End: 10-12-[address] DOCTOR MISC Facility:[facility] Start: 09-18-2022 End: 09-19-[address] DOCTOR MISC Facility:[facility] Start: 08-21-2022 End: 08-22-[address] DOCTOR MISC Facility:[facility] Start: 08-02-2022 End: 08-03-[address] DOCTOR MISC Facility:[facility] Start: 06-17-2022 End: 06-18-[address] DOCTOR MISC Facility:[facility] Start: 05-15-2022 End: 05-16-[address] DOCTOR MISC Facility:[facility] Start: 04-15-2022 End: 04-16-[address] DOCTOR MISC Facility:[facility] Start: 03-28-2022 Telephone encounter Arnold Skinner MD Work Phone: Colorectal Surgery Comment on above: Opened In Error (no documentation-error) Medication Problem ( magnesium carbonate? vs? CALM) Start: 03-28-2022 End: 03-28-2022 Patient encounter procedure Arnold Germain MD Work Phone: Colorectal Surgery Comment on above: Hematochezia (Primar y Dx) Start: 04-17-2018 End: 04-18-2018 Ambulatory [facility] Facility:[facility] Start: 03-30-2018 End: 03-31-2018 Ambulatory [facility] Facility:[facility] Plan of Treatment Date Care Activity Detail Author Start: 2017 Urine microalbumin profile DTAP,TDAP ,TD (1 - Tdap) [facility] Start: 2016 HEPATITIS C SCREENING HEPATITIS C SC JORGE [facility] Start: 2016 HIV SCREENING HIV SCREENING [facility] Start: 2012 PEDS TO ADULT TRANSI TION ANNUAL ASSESSMENT PEDS TO ADULT TRANSITION ANNUAL ASSESSMENT [facility] Start: 2010 Adult depression scr eening assessment DEPRESSION SCREENING [facility] Start: 2010 PEDS TO ADULT TRANSI TION INITIAL DISCUSSION PEDS TO ADULT TRANSITION INITIAL DISCUSSION [facility] Start: 2009 HPV VACCINE (1 - Mal e 2-dose series) HPV VACCINE (1 - Male 2-dose series) 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 Payers Date Payer Category Payer Self-pay 2021 [place] [id number] 2021-Present [phone] [address] [place] [address] Medicaid [id number] 2018 Medicare MEDICARE MEDICAR E A AND B [id number] 2018-Present [phone] [address] [address] [place] [address] Medicare [id number] 1998 Unknown [id number] 2000 Unknown [id number] 1998 Unknown [id number] 1998 Unknown [id number] 1998 Unknown [id number] 1998 Unknown [id number] 1998 Unknown [id number] 1998 Unknown [id number] 1998 Unknown [id number] 1998 Unknown [id number] 1998 Unknown [id number] 1998 Unknown [id number] 1961 Medicaid [id number] 1961 Medicare [id number] Social History Date Type Detail Facility Start: 03-01-2015 Tobacco smoking stat [facility] Never smoked tobacco [facility] Start: 03-01-2015 Tobacco use and exposure Smoke less tobacco non-user [facility] Start: 03-28-2022 Alcohol intake Current non-dr shrestha of alcohol (finding) [facility] Start: 2000 Sex Assigned At Not on file C [facility] Start: 03-18-2022 End: 03-28-2022 Exposure to SARS-CoV-2 (event) Not sure [facility] Clinical Notes 06-29-2021 to 03-28-2022 Telephone Encounter - Charley Mcclelland RN - 03/28/2022 4:13 PM EDTTelephone Encounter - Sara BAEZA - 03/28/2022 3:43 PM EDTAddendum Note - Arnold Germain MD - 03/28/2022 3:11 PM EDT Note Date & Type Note Facility 03-28-2022 Miscellaneous Notes Spoke with the pharmacist and she states that she does not provide food items. She will speak with the nurse at the snf. Pharmacy, [facility], phone , any pharmacist to clarify about carbonate? CALM is snf able to order as food item? Please call to discuss. documented in this encounter [facility] 03-28-2022 Miscellaneous Notes Opened in error documented in this encounter [facility] 03-28-2022 Miscellaneous Notes Addended by: ARNOLD GERMAIN on: 03/28/2022 03:11 PM Modules accepted: Orders Addended by: CHARLEY MCCLELLAND on: 03/28/2022 02:47 PM Modules accepted: Orders documented in this encounter [facility] 03-28-2022 Note HNO ID: [id number] Author: Arnold Germain MD Service: ? Author Type: Physician Type: Progress Notes Filed: 03/28/2022 11:58 AM Note Text: COLORECTAL SURGERY March 28, 2022 Rj Gonzales 21 year old Chief Complaint: hematochezia History of Present Illness: Rj Gonzales is a 21 year old male presents to the office for evaluation of hematochezia. Last seen in the office on 11/16/21 with Cristal Suarez NP for follow up visit after he underwent an ablation of internal hemorrhoids in 2 columns on 10/17/21. PAST MEDICAL HISTORY Diagnosis Date - Attention deficit hyperactivity disorder - MR (mental retardation) - Schizophrenia (HCC) - Tic disorder PAST SURGICAL HISTORY Procedure Laterality Date - ABDOMINAL SURGERY HX - HEMORRHOID;BAND LIGMARCELL, JENNIFER/YASSINE 07/12/2021 Current Outpatient Medications Medication Sig Dispense Refill - acetaminophen (TYLENOL) 325 mg tablet Take 2 tablets by mouth every 6 hours. - ibuprofen (MOTRIN) 200 mg tablet Take 2 tablets by mouth every 4 hours as needed for pain. - risperiDONE (RISPERDAL) 1 mg tablet Take 1 mg by mouth. - loratadine (CLARITIN) 10 mg tablet Take 10 mg by mouth. - calcium polycarbophil (FIBERCON) 625 mg tablet Take 625 mg by mouth. - docusate sodium (COLACE) 100 mg capsule Take 100 mg by mouth twice daily. - cloZAPine (CLOZARIL) 100 mg tablet - polyethylene glycol 3350 (MIRALAX) 17 gram packet Take 1 Packet by mouth once daily. 30 Packet 5 - benztropine (COGENTIN) 2 mg tablet Take 2 mg by mouth twice daily. - clonazePAM (KLONOPIN) 1 mg tablet Take 1 mg by mouth twice daily as needed. - FLUoxetine HCl (PROZAC) 40 mg capsule Take 40 mg by mouth once daily. - haloperidol (HALDOL) 10 mg tablet Take 10 mg by mouth four times daily. No current facility-administered medications for this visit. ALLERGIES No Known Allergies No family history on file. Social History Tobacco Use - Smoking status: Never Smoker - Smokeless tobacco: Never Used Substance Use Topics - Alcohol use: No - Drug use: No Physical Exam: There were no vitals taken for this visit. General Appearance: Well appearing, alert, in no acute distress, well-hydrated, well nourished. Skin: Skin color, texture, turgor normal Head: Normocephalic Oropharynx: Lips, mucosa, and tongue normal Neck: Supple Lungs: breathing unlabored on room air Extremities: No deformities, no weakness Neuro: Gait normal Abdomen: Normal abdominal exam Anorectal: External exam reveals: see below Diesel Scoop Operator present: yes Assessment Assessment and Plan: Rj Gonzales is a 21 year old male with straining and occasional rectal bleeding. Today, we talked about adding a magnesium supplement CALM to his regimen to decrease straining. I am of the opinion that more surgery is not the best option at this time. Arnold Germain MD Colorectal Surgery [facility] 03-28-2022 Nurse Note Calm education given for constipation. What is the reason for your visit today? Established patient presents for hematochezia. Who is your referring physician? Are you having poor oral intake? NO Have you had unintentional weight loss of 15 lbs/7 Kg in the last 3-6 months? NO Bowels: regular Wound: None Temperature: No Drains: No documented in this encounter [facility] 03-28-2022 History of Presen t illness Narrative COLORECTAL SURGERY March 28, 2022 Rj Gonzales 21 year old Chief Complaint: hematochezia History of Present Illness: Rj Gonzales is a 21 year old male presents to the office for evaluation of hematochezia. Last seen in the office on 11/16/21 with Cristal Suarez MANIPULATOR OPERATOR for follow up visit after he underwent an ablation of internal hemorrhoids in 2 columns on 10/17/21. PAST MEDICAL HISTORY Diagnosis Date Attention deficit hyperactivity disorder MR (mental retardation) Schizophrenia (HCC) Tic disorder PAST SURGICAL HISTORY Procedure Laterality Date ABDOMINAL SURGERY HX HEMORRHOID;BAND LIGAT, SNGL/MUL 07/12/2021 Current Outpatient Medications Medication Sig Dispense Refill acetaminophen (TYLENOL) 325 mg tablet Take 2 tablets by mouth every 6 hours. ibuprofen (MOTRIN) 200 mg tablet Take 2 tablets by mouth every 4 hours as needed for pain. risperiDONE (RISPERDAL) 1 mg tablet Take 1 mg by mouth. loratadine (CLARITIN) 10 mg tablet Take 10 mg by mouth. calcium polycarbophil (FIBERCON) 625 mg tablet Take 625 mg by mouth. docusate sodium (COLACE) 100 mg capsule Take 100 mg by mouth twice daily. cloZAPine (CLOZARIL) 100 mg tablet polyethylene glycol 3350 (MIRALAX) 17 gram packet Take 1 Packet by mouth once daily. 30 Packet 5 benztropine (COGENTIN) 2 mg tablet Take 2 mg by mouth twice daily. clonazePAM (KLONOPIN) 1 mg tablet Take 1 mg by mouth twice daily as needed. FLUoxetine HCl (PROZAC) 40 mg capsule Take 40 mg by mouth once daily. haloperidol (HALDOL) 10 mg tablet Take 10 mg by mouth four times daily. No current facility-administered medications for this visit. ALLERGIES No Known Allergies No family history on file. Social History Tobacco Use Smoking status: Never Smoker Smokeless tobacco: Never Used Substance Use Topics Alcohol use: No Drug use: No Physical Exam: There were no vitals taken for this visit. General Appearance: Well appearing, alert, in no acute distress, well-hydrated, well nourished. Skin: Skin color, texture, turgor normal Head: Normocephalic Oropharynx: Lips, mucosa, and tongue normal Neck: Supple Lungs: breathing unlabored on room air Extremities: No deformities, no weakness Neuro: Gait normal Abdomen: Normal abdominal exam Anorectal: External exam reveals: see below Diesel Scoop Operator present: yes Assessment Assessment and Plan: Rj Gonzales is a 21 year old male with straining and occasional rectal bleeding. Today, we talked about adding a magnesium supplement CALM to his regimen to decrease straining. I am of the opinion that more surgery is not the best option at this time. Arnold Germain MD Colorectal Surgery documented in this encounter [facility] 11-16-2021 Note HNO ID: [id number] Author: Cristal Suarez APRN.PLUMBER Service: ? Author Type: Nurse Practitioner Type: Progress Notes Filed: 11/16/2021 12:59 PM Note Text: COLORECTAL SURGERY November 16, 2021 Rj Gonzales 21 year old Chief Complaint: Postop visit History of Present Illness: Rj Gonzales is a 21 year old male status post ablation of internal hemorrhoids in [address] Germain on 10/17/2021.He reports doing well since procedure. He is no longer having episodes of hemorrhoidal rectal bleeding. He reports an occasional BRB on the toilet paper after bowel movements. Patient denies anorectal pain. He continues his colace and Miralax every other day. Patient reports that he no longer has the urge to strain with a bowel movement. PAST MEDICAL HISTORY Diagnosis Date - Attention deficit hyperactivity disorder - MR (mental retardation) - Schizophrenia (HCC) - Tic disorder PAST SURGICAL HISTORY Procedure Laterality Date - ABDOMINAL SURGERY HX - HEMORRHOID;BAND ANTONIO, JENNIFER/YASSINE 07/12/2021 Current Outpatient Medications Medication Sig Dispense Refill - acetaminophen (TYLENOL) 325 mg tablet Take 2 tablets by mouth every 6 hours. - ibuprofen (MOTRIN) 200 mg tablet Take 2 tablets by mouth every 4 hours as needed for pain. - risperiDONE (RISPERDAL) 1 mg tablet Take 1 mg by mouth. - loratadine (CLARITIN) 10 mg tablet Take 10 mg by mouth. - calcium polycarbophil (FIBERCON) 625 mg tablet Take 625 mg by mouth. - docusate sodium (COLACE) 100 mg capsule Take 100 mg by mouth twice daily. - cloZAPine (CLOZARIL) 100 mg tablet - polyethylene glycol 3350 (MIRALAX) 17 gram packet Take 1 Packet by mouth once daily. 30 Packet 5 - benztropine (COGENTIN) 2 mg tablet Take 2 mg by mouth twice daily. - clonazePAM (KLONOPIN) 1 mg tablet Take 1 mg by mouth twice daily as needed. - FLUoxetine HCl (PROZAC) 40 mg capsule Take 40 mg by mouth once daily. - haloperidol (HALDOL) 10 mg tablet Take 10 mg by mouth four times daily. No current facility-administered medications for this visit. ALLERGIES No Known Allergies No family history on file. Social History Tobacco Use - Smoking status: Never Smoker - Smokeless tobacco: Never Used Substance Use Topics - Alcohol use: No - Drug use: No Physical Exam: BP 136/80 Pulse 60 Ht 180.3 cm (5' 11 ) Wt 96.2 kg (212 lb) BMI 29.57 kg/m? General Appearance: Well appearing, alert, in no acute distress, well-hydrated, well nourished. Skin: Skin color, texture, turgor normal Head: Normocephalic Oropharynx: Lips, mucosa, and tongue normal Neck: Supple Lungs: breathing unlabored on room air Extremities: No deformities, no weakness Neuro: Gait normal Abdomen: deferred Anorectal: deferred Assessment Assessment and Plan: Rj Gonzales is a 21 year old male patient recovering as expected after recent hemorrhoid procedure. We discussed continuing to keep his bowels soft and drinking at least 8 to 10 glasses of water a day. He will plan to follow-up in the office in the future as needed. Medical Decision Making: Data Reviewed: - Tests AND Documents Reviewed/ordered: Review of prior operative reports - I have discussed Rj Gonzales's treatment plan and/or results with patient and POA. Cristal Suarez APRN.PLUMBER Colorectal Surgery [facility] 10-17-2021 Note HNO ID: [id number] Author: Hunter Massey APRN.CRNA Service: Anesthesiology Author Type: Nurse Foreign Exchange Dealer Type: Anesthesia Procedure Notes Filed: 10/17/2021 8:55 AM Note Text: ANESTHESIOLOGY PROCEDURE NOTE Airway General Information Procedure Start Time/Medication Administration: 10/17/2021 8:49 AM Patient location during procedure: OR Timeout Performed Pre-procedure: timeout performed Consent Obtained: Yes Patient identity confirmed: arm band, care steam meter reader and patient Staffing Anesthesiologist: Michael Martínez MD VEGETABLE PREPARER: Hunter Massey APRN.VEGETABLE PREPARER Performed by: SAMAN Indications and Patient Condition Preoxygenated: yes Patient position: sniffing Manual In-Line Stabilization: No Difficult Mask: No Indications for airway management: anesthesia anesthesia circuit Method: asleep Cricoid Pressure: No Final Airway Details Final airway type: supraglottic airway Number of attempts at approach: 1 Final Supraglottic Airway: i-gel Size 4 Seal Adequate: yes Airway not difficult SIGNATURE: Hunter Massey APRN.CRNA PATIENT NAME: Rj Gonzales DATE: October 17, 2021 TIME: 8:54 AM CSN: [id number] [facility] 08-31-2021 Note HNO ID: [id number] Author: Arnold Germain MD Service: ? Author Type: Physician Type: Progress Notes Filed: 09/02/2021 7:18 AM Note Text: COLORECTAL SURGERY August 31, 2021 Rj Gonzales 21 year old Chief Complaint: post op History of Present Illness: Rj Gonzales is a 21 year old male presents in the office for a post op visit after hemorrhoid banding 07/12/21. PAST MEDICAL HISTORY Diagnosis Date - Attention deficit hyperactivity disorder - MR (mental retardation) - Schizophrenia (HCC) - Tic disorder PAST SURGICAL HISTORY Procedure Laterality Date - ABDOMINAL SURGERY HX Current Outpatient Medications Medication Sig Dispense Refill - risperiDONE (RISPERDAL) 1 mg tablet Take 1 mg by mouth. - loratadine (CLARITIN) 10 mg tablet Take 10 mg by mouth. - calcium polycarbophil (FIBERCON) 625 mg tablet Take 625 mg by mouth. - docusate sodium (COLACE) 100 mg capsule Take 100 mg by mouth twice daily. - cloZAPine (CLOZARIL) 100 mg tablet - polyethylene glycol 3350 (MIRALAX) 17 gram packet Take 1 Packet by mouth once daily. 30 Packet 5 - benztropine (COGENTIN) 2 mg tablet Take 2 mg by mouth twice daily. - clonazePAM (KLONOPIN) 1 mg tablet Take 1 mg by mouth twice daily as needed. - FLUoxetine HCl (PROZAC) 40 mg capsule Take 40 mg by mouth once daily. - haloperidol (HALDOL) 10 mg tablet Take 10 mg by mouth four times daily. No current facility-administered medications for this visit. ALLERGIES No Known Allergies No family history on file. Social History Tobacco Use - Smoking status: Never Smoker - Smokeless tobacco: Never Used Substance Use Topics - Alcohol use: No - Drug use: No Physical Exam: There were no vitals taken for this visit. General Appearance: Well appearing, alert, in no acute distress, well-hydrated, well nourished. Skin: Skin color, texture, turgor normal Head: Normocephalic Oropharynx: Lips, mucosa, and tongue normal Neck: Supple Lungs: breathing unlabored on room air Extremities: No deformities, no weakness Neuro: Gait normal Abdomen: Normal abdominal exam Anorectal: External exam reveals : see below Diesel Scoop Operator present: yes Assessment Assessment and Plan: Rj Gonzales is a 21 year old male who is doing relatively well after his recent rubber band ligation. He still has some rectal bleeding and it is difficult to assess the exact amount. If the bleeding persists we will consider internal hemorrhoidectomy. Arnold Germain MD Colorectal Surgery [facility] 07-12-2021 Note HNO ID: [id number] Author: Shanthi Chapman APRN.VEGETABLE PREPARER Service: Anesthesiology Author Type: Nurse Foreign Exchange Dealer Type: Anesthesia Procedure Notes Filed: 07/12/2021 10:54 AM Note Text: ANESTHESIOLOGY PROCEDURE NOTE Airway General Information Procedure Start Time/Medication Administration: 07/12/2021 10:48 AM Patient location during procedure: OR Patient identity confirmed: arm band, care steam meter reader and patient Staffing VEGETABLE PREPARER: Shanthi Chapman APRN.VEGETABLE PREPARER Performed by: SAMAN Indications and Patient Condition Preoxygenated: yes Patient position: sniffing Manual In-Line Stabilization: No Difficult Mask: No Indications for airway management: anesthesia anesthesia circuit Method: asleep Cricoid Pressure: No Final Airway Details Final airway type: supraglottic airway Number of attempts at approach: 1 Final Supraglottic Airway: IGEL Size 4 Seal Adequate: yes Airway trauma: none. Failed airway: no Unrecognized esophageal intubation: no Airway not difficult SIGNATURE: Shanthi Chapman APRN.VEGETABLE PREPARER PATIENT NAME: Rj Gonzales DATE: July 12, 2021 TIME: 10:53 AM CSN: [id number] [facility] 06-29-2021 Note HNO ID: [id number] Author: Arnold Germain MD Service: ? 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 They relate that he is having around 5 bowel movements daily. Rj denies diarrhea, but his caregiver states that he will spend a long time in the restroom, grunting and straining. He states that there is always blood in the toilet and when he wipes. It makes him very nervous and he will wipe the blood on the hebert. His caregiver feels that it has been getting worse recently and Rj asked to return to the office for evaluation PAST MEDICAL HISTORY Diagnosis Date - Attention deficit hyperactivity disorder - MR (mental retardation) - Schizophrenia (HCC) - Tic disorder PAST SURGICAL HISTORY Procedure Laterality Date - ABDOMINAL SURGERY HX Current Outpatient Medications Medication Sig Dispense Refill - docusate sodium (COLACE) 100 mg capsule Take 100 mg by mouth twice daily. - cloZAPine (CLOZARIL) 100 mg tablet - polyethylene glycol 3350 (MIRALAX) 17 gram packet Take 1 Packet by mouth once daily. 30 Packet 5 - benztropine (COGENTIN) 2 mg tablet Take 2 mg by mouth twice daily. - clonazePAM (KLONOPIN) 1 mg tablet Take 1 mg by mouth twice daily as needed. - FLUoxetine HCl (PROZAC) 40 mg capsule Take 40 mg by mouth once daily. - haloperidol (HALDOL) 10 mg tablet Take 10 mg by mouth four times daily. No current facility-administered medications for this visit. ALLERGIES No Known Allergies No family history on file. Social History Tobacco Use - Smoking status: Never Smoker - Smokeless tobacco: Never Used Substance Use Topics - Alcohol use: No - Drug use: No Physical Exam: BP 125/77 Pulse 88 Ht 177.8 cm (5' 10 ) Wt 100.8 kg (222 lb 4.8 oz) BMI 31.90 kg/m? 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 Our plan is to perform an EUA and rubber band ligation of internal hemorrhoids at the [facility]. Medical Decision Making: Arnold Germain MD Colorectal Surgery [facility] Evaluation note Diagnosis Hematochezia- Primary Blood in stool documented in this encounter [facility] Summary Purpose Family History No Family History Records FoundNo Family History Records FoundNo Family History Records FoundNo Family History Records FoundNo Family History Records Found Advance Directives No Advanced Directives Records FoundDocuments on File Type Date Recorded Patient Nursing Staff Development Coordinator Expl anation Advance Directive(s) 07/09/2021 9:04 AM Additional Source Comments (unrecognized sect ion and content) No Status Records FoundNo Status Records FoundNo Status Records FoundNo Status Records FoundNo Status Records Found INFORMATION SOURCE (unrecogn ized section and content) DATE CREATED AUTHOR 05/01/2018 [facility] DATE CREATED AUTHOR AUTHOR'S ORGANIZ ATION 10/31/2021 [facility] DATE CREATED AUTHOR AUTHOR'S ORGANIZ ATION 03/29/2022 [facility] DATE CREATED AUTHOR AUTHOR'S ORGANIZ ATION 04/04/2023 [facility] DATE CREATED AUTHOR AUTHOR'S ORGANIZ ATION 11/24/2023 [facility] Source Comments (unrecognize d section and content) In the event this informatio n is protected by the Federal Confidentiality of Alcohol and Drug Abuse Patient Records regulations: The Federal rules restrict any use of the information to criminally investigate or prosecute any alcohol or drug abuse patient.[facility] the event this information is protected by the Federal Confidentiality of Alcohol and Drug Abuse Patient Records regulations: The Federal rules restrict any use of the information to criminally investigate or prosecute any alcohol or drug abuse patient.[facility] the event this information is protected by the Federal Confidentiality of Alcohol and Drug Abuse Patient Records regulations: The Federal rules restrict any use of the information to criminally investigate or prosecute any alcohol or drug abuse patient.[facility] Reason for Visit (unrecogniz ed section and content) Reason Comments Established Patient Follow-Up Rectal Bleeding Reason Comments Opened In Error no documentation-err or Reason Comments Medication Problem magnesium carbonate? vs? CALM FOR RECORDS PERTAINING TO PATIENTS WHO ARE OR HAVE BEEN ENROLLED IN A CHEMICAL DEPENDENCY/SUBSTANCEABUSE PROGRAM, SOME INFORMATION MAY BE OMITTED. This clinical summary was aggregated from multiple sources. Caution should be exercised in using it in the provision of clinical care. This summary normalizes information from multiple sources, and as a consequence, information in this document may materially change the coding, format and clinical context of patient data. In addition, data may be omitted in some cases. CLINICAL DECISIONS SHOULD BE BASED ON THE PRIMARY CLINICAL RECORDS. [facility] [employer] [facility]. provides no warranty or guarantee of the accuracy or completeness of information in this document.
[2023-11-26 16:25] LABS: Hematocrit 34.1 % (42.0-54.0); Hemoglobin 8.9 g/dL (14.0-18.0); Mean Corpuscular HGB Conc 26.1 g/dL (29.9-35.2); Mean Corpuscular Hemoglobin 16.5 pg (25.9-34.0); Mean Corpuscular Volume 63.3 fL (80.0-94.0); Mean Platelet Volume 9.1 fL (9.5-13.5); Platelet Count 371 10^3/uL (150-450); Red Blood Count 5.39 10^6/uL (4.70-6.10); Red Cell Distribution Width 21.9 % (11.0-15.0); White Blood Count 6.4 10^3/uL (4.0-11.0)
[2023-11-26 18:09] LABS: Lymphocytes Absolute Manual 1.47 10^3/uL (1.20-3.80); Monocytes Absolute Manual 0.57 10^3/uL (0.30-0.80); Segmented Neut Absolute Manual 4.28 10^3/uL (1.4-6.5)
[2023-11-26 18:10] LABS: Eosinophils Absolute Manual 0.06 10^3/uL (0.00-0.70); Hypochromasia 3+
[2023-11-26 18:11] LABS: Anisocytosis 2+; Microcytosis 3+; Poikilocytosis 2+
[2023-11-26 18:17] LABS: Ovalocytes 1+
== END 2023-11-26 15:50 | disposition home or self-care (01) ==
PROVIDERS: PCP Family Medicine
DX: Z79.899 Other long term (current) drug therapy (principal)
CPT/HCPCS: 36415; 85007; 85027

== ENCOUNTER 2023-12-26 15:39 | Outpatient (OUT) | payer MEDICARE, MEDICAID, SELFPAY ==
--- OUTSIDE RECORDS SUMMARY | 2023-12-26 15:49 | XMS_ITS | CCD ---
Author Name Unknown Address [address] [place] [address] Organization [facility] Care Team Providers Care Packing Room Supervisor Name Role Phone Salam, Shaw Unavailable Unavailable Salam, Shaw Unavailable Unavailable Salam, Shaw Unavailable Unavailable NADERER, ANGEL~[phone] UNKNOWN Unavailable Unavailable Salam, Shaw Unavailable Unavailable Salam, Shaw Unavailable Unavailable Salam, Shaw Unavailable Unavailable NADERER, ANGEL~[phone] UNKNOWN Unavailable Unavailable Unavailable Primary Care Provider Unavailabl e MISC, DR DOCTOR Attending Unavailable MISC, DR DOCTOR Admitting Unavailable MISC, DR DOCTOR Consulting Unavailable NADERER, DR ORTIZ A Primary Care Unavailable MISC, DOCTOR Consulting Unavailable MISC, DOCTOR Attending Unavailable NADERER, [...] Medication Allergies] Propensity to adverse reactions (disorder) [facility] Medications Current Medications Medication Drug Class(es) [...] Comment on above: Take 2 tablets by [facility] every 6 hours. benztropine mesylate 2 mg [...] 10 mg by mouth. 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 Sonido eBjarano Basophils/100 WBC (Bld) 0.7 % Normal 0.2-2.0 [facility] Comment on above: Performed By: #### C BC #### [facility] [address] [place] [address] Dr. Sonido Bejarano EO # 0.1 103/ul Normal 0.0-0.7 [facility] Comment on above: Performed By: #### C BC #### [facility] [address] [place] [address] Dr. Sonido Bejarano Eosinophils/100 WBC (Bld) 1.0 % Normal 0.9-7.0 [facility] Comment on above: Performed By: #### C BC #### [facility] [address] [place] [address] Dr. Sonido Bejarano Erythrocyte distribution width (RBC) [Ratio] 22.3 % Critically high 11.0-15.0 [facility] Comment on above: Performed By: #### C BC #### [facility] [address] [place] [address] Dr. Sonido Bejarano Hematocrit (Bld) [Volume fraction] 32.0 % Critically low 42.0-54.0 [facility] Comment on above: Performed By: #### C BC #### [facility] [address] [place] [address] Dr. Sonido Bejarano Hemoglobin (Bld) [Mass/Vol] 8.3 g/dL Critically low 14.0-18.0 [facility] Comment on above: Performed By: #### C BC #### [facility] [address] [place] [address] Dr. Soniod Bejarano IG # 0.01 10e3/ul Normal 0.00-0.03 [facility] Comment on above: Performed By: #### C BC #### [facility] [address] [place] [address] Dr. Sonido Bejarano IG % 0.2 % Normal 0.0-0.5 [facility] Comment on above: Performed By: #### C BC #### [facility] [address] [place] [address] Dr. Sonido Bejarano LYMPH # 1.2 103/ul Normal 1.2-3.8 [facility] Comment on above: Performed By: #### C BC #### [facility] [address] [place] [address] Dr. Sonido Bejarano Lymphocytes/100 WBC (Bld) 20.1 % Critically low 20.5-60.0 [facility] Comment on above: Performed By: #### C BC #### [facility] [address] [place] [address] Dr. Sonido Bejarano MANUAL DIFF REQ NO Normal [facility] Comment on above: Performed By: #### C BC #### [facility] [address] [place] [address] Dr. Sonido Bejarano MCH (RBC) [Entitic mass] 15.7 pg Critically low 25.9-34.0 [facility] Comment on above: Performed By: #### C BC #### [facility] [address] [place] [address] Dr. Sonido Bejarano MCHC (RBC) [Mass/Vol] 25.9 g/dL Critically low 29.9-35.2 [facility] Comment on above: Performed By: #### C BC #### [facility] [address] [place] [address] Dr. Sonido Bejarano MCV (RBC) [Entitic vol] 60.6 fL Critically low 80.0-94.0 [facility] Comment on above: Performed By: #### C BC #### [facility] [address] [address] [address] Sonido Bejarano MONO # 0.7 103/ul Normal 0.3-0.8 [facility] Comment on above: Performed By: #### C BC #### [facility] [address] [place] [address] Dr. Sonido Bejarano Monocytes/100 WBC (Bld) 12.2 % Critically high 1.7-12.0 [facility] Comment on above: Performed By: #### C BC #### [facility] [address] [place] [address] Dr. Sonido Bejarano NEUT # 3.8 103/ul Normal 1.4-6.5 [facility] Comment on above: Performed By: #### C BC #### [facility] [address] [place] [address] Dr. Sonido Bejarano Neutrophils/100 WBC (Bld) 65.8 % Normal 43.0-75.0 [facility] Comment on above: Performed By: #### C BC #### [facility] [address] [place] [address] Dr. Sonido Bejarano Platelet mean volume (Bld) [Entitic vol] 9.2 fL Critically low 9.5-13.5 [facility] Comment on above: Performed By: #### C BC #### [facility] [address] [place] [address] Dr. Sonido Bejarano PLT 369 103/ul Normal 150-450 [facility] Comment on above: Performed By: #### C BC #### [facility] [address] [place] [address] Dr. Sonido Bejarano RBC 5.28 106/ul Normal 4.70-6.10 [facility] Comment on above: Performed By: #### C BC #### [facility] [address] [place] [address] Dr. Sonido Bejarano WBC 5.8 103/ul Normal 4.0-11.0 [facility] Comment on above: Performed By: #### C BC #### [facility] [address] [place] [address] Dr. Sonido Bejarano CBC AUTO DIFFon 02-19-2023 BASO # 0.0 103/ul Normal 0.0-0.1 [facility] Comment on above: Performed By: #### C BC #### [facility] [address] [place] [address] Dr. Sonido Bejarano Basophils/100 WBC (Bld) 0.7 % Normal 0.2-2.0 [facility] Comment on above: Performed By: #### C BC #### [facility] [address] [place] [address] Dr. Sonido Bejarano EO # 0.1 103/ul Normal 0.0-0.7 [facility] Comment on above: Performed By: #### C BC #### [facility] [address] [place] [address] Dr. Sonido Bejarano Eosinophils/100 WBC (Bld) 1.1 % Normal 0.9-7.0 [facility] Comment on above: Performed By: #### C BC #### [facility] [address] [place] [address] Dr. Sonido Bejarano Erythrocyte distribution width (RBC) [Ratio] 22.7 % Critically high 11.0-15.0 [facility] Comment on above: Performed By: #### C BC #### [facility] [address] [place] [address] Dr. Sonido Bejarano Hematocrit (Bld) [Volume fraction] 32.9 % Critically low 42.0-54.0 [facility] Comment on above: Performed By: #### C BC #### [facility] [address] [place] [address] Dr. Sonido Bejarano Hemoglobin (Bld) [Mass/Vol] 8.2 g/dL Critically low 14.0-18.0 [facility] Comment on above: Performed By: #### C BC #### [facility] [address] [place] [address] Dr. Sonido Bejarano IG # 0.02 10e3/ul Normal 0.00-0.03 [facility] Comment on above: Performed By: #### C BC #### [facility] [address] [place] [address] Dr. Sonido Bejarano IG % 0.3 % Normal 0.0-0.5 [facility] Comment on above: Performed By: #### C BC #### [facility] [address] [place] [address] Dr. Sonido Bejarano LYMPH # 1.4 103/ul Normal 1.2-3.8 [facility] Comment on above: Performed By: #### C BC #### [facility] [address] [place] [address] Dr. Sonido Bejarano Lymphocytes/100 WBC (Bld) 22.8 % Normal 20.5-60.0 [facility] Comment on above: Performed By: #### C BC #### [facility] [address] [place] [address] Dr. Sonido Bejarano MANUAL DIFF REQ NO Normal [facility] Comment on above: Performed By: #### C BC #### [facility] [address] [place] [address] Dr. Sonido Bejarano MCH (RBC) [Entitic mass] 15.3 pg Critically low 25.9-34.0 [facility] Comment on above: Performed By: #### C BC #### [facility] [address] [place] [address] Dr. Sonido Bejarano MCHC (RBC) [Mass/Vol] 24.9 g/dL Critically low 29.9-35.2 [facility] Comment on above: Performed By: #### C BC #### [facility] [address] [place] [address] Dr. Sonido Bejarano MCV (RBC) [Entitic vol] 61.3 fL Critically low 80.0-94.0 [facility] Comment on above: Performed By: #### C BC #### [facility] [address] [place] [address] Dr. Sonido Bejarano MONO # 0.7 103/ul Normal 0.3-0.8 [facility] Comment on above: Performed By: #### C BC #### [facility] [address] [place] [address] Dr. Sonido Bejarano Monocytes/100 WBC (Bld) 11.6 % Normal 1.7-12.0 [facility] Comment on above: Performed By: #### C BC #### [facility] [address] [place] [address] Dr. Sonido Bejarano NEUT # 3.9 103/ul Normal 1.4-6.5 [facility] Comment on above: Performed By: #### C BC #### [facility] [address] [place] [address] Dr. Sonido Bejarano Neutrophils/100 WBC (Bld) 63.5 % Normal 43.0-75.0 [facility] Comment on above: Performed By: #### C BC #### [facility] [address] [place] [address] Dr. Sonido Bejarano Platelet mean volume (Bld) [Entitic vol] 9.3 fL Critically low 9.5-13.5 [facility] Comment on above: Performed By: #### C BC #### [facility] [address] [place] [address] Dr. Sonido Bejarano PLT 394 103/ul Normal 150-450 [facility] Comment on above: Performed By: #### C BC #### [facility] [address] [place] [address] Dr. Sonido Bejarano RBC 5.37 106/ul Normal 4.70-6.10 [facility] Comment on above: Performed By: #### C BC #### [facility] [address] [place] [address] Dr. Sonido Bejarano WBC 6.1 103/ul Normal 4.0-11.0 [facility] Comment on above: Performed By: #### C BC #### [facility] [address] [address] [address] Sonido Bejarano CBC AUTO DIFFon 01-15-2023 BASO # 0.0 103/ul Normal 0.0-0.1 [facility] Comment on above: Performed By: #### C BC #### [facility] [address] [address] [address] Sonido Bejarano Basophils/100 WBC (Bld) 0.3 % Normal 0.2-2.0 [facility] Comment on above: Performed By: #### C BC #### [facility] [address] [address] [address] Sonido Bejarano EO # 0.0 103/ul Normal 0.0-0.7 [facility] Comment on above: Performed By: #### C BC #### [facility] [address] [place] [address] Dr. Sonido Bejarano Eosinophils/100 WBC (Bld) 0.4 % Critically low 0.9-7.0 [facility] Comment on above: Performed By: #### C BC #### [facility] [address] [place] [address] Dr. Sonido Bejarano Erythrocyte distribution width (RBC) [Ratio] 22.4 % Critically high 11.0-15.0 [facility] Comment on above: Performed By: #### C BC #### [facility] [address] [place] [address] Dr. Sonido Bejarano Hematocrit (Bld) [Volume fraction] 31.5 % Critically low 42.0-54.0 [facility] Comment on above: Performed By: #### C BC #### [facility] [address] [place] [address] Dr. Sonido Bejarano Hemoglobin (Bld) [Mass/Vol] 8.1 g/dL Critically low 14.0-18.0 [facility] Comment on above: Performed By: #### C BC #### [facility] [address] [place] [address] Dr. Sonido Bejarano IG # 0.02 10e3/ul Normal 0.00-0.03 [facility] Comment on above: Performed By: #### C BC #### [facility] [address] [address] [address] Sonido Bejarano IG % 0.3 % Normal 0.0-0.5 [facility] Comment on above: Performed By: #### C BC #### [facility] [address] [address] [address] Sonido Bejarano LYMPH # 1.3 103/ul Normal 1.2-3.8 [facility] Comment on above: Performed By: #### C BC #### [facility] [address] [place] [address] Dr. Sonido Bejarano Lymphocytes/100 WBC (Bld) 19.4 % Critically low 20.5-60.0 [facility] Comment on above: Performed By: #### C BC #### [facility] [address] [place] [address] Dr. Sonido Bejarano MANUAL DIFF REQ NO Normal [facility] Comment on above: Performed By: #### C BC #### [facility] [address] [place] [address] Dr. Sonido Bejarano MCH (RBC) [Entitic mass] 15.5 pg Critically low 25.9-34.0 [facility] Comment on above: Performed By: #### C BC #### [facility] [address] [place] [address] Dr. Sonido Bejarano MCHC (RBC) [Mass/Vol] 25.7 g/dL Critically low 29.9-35.2 [facility] Comment on above: Performed By: #### C BC #### [facility] [address] [place] [address] Dr. Sonido Bejarano MCV (RBC) [Entitic vol] 60.2 fL Critically low 80.0-94.0 [facility] Comment on above: Performed By: #### C BC #### [facility] [address] [place] [address] Dr. Sonido Bejarano MONO # 0.9 103/ul Critically high 0.3-0.8 [facility] Comment on above: Performed By: #### C BC #### [facility] [address] [place], [place] [address] Dr. Sonido Bejarano Monocytes/100 WBC (Bld) 12.9 % Critically high 1.7-12.0 [facility] Comment on above: Performed By: #### C BC #### [facility] [address] [address] [address] Sonido Bejarano NEUT # 4.5 103/ul Normal 1.4-6.5 [facility] Comment on above: Performed By: #### C BC #### [facility] [address] [address] [address] Sonido Bejarano Neutrophils/100 WBC (Bld) 66.7 % Normal 43.0-75.0 [facility] Comment on above: Performed By: #### C BC #### [facility] [address] [place] [address] Dr. Sonido Bejarano Platelet mean volume (Bld) [Entitic vol] 9.2 fL Critically low 9.5-13.5 [facility] Comment on above: Performed By: #### C BC #### [facility] [address] [address] [address] Sonido Bejarano PLT 356 103/ul Normal 150-450 [facility] Comment on above: Performed By: #### C BC #### [facility] [address] [place] [address] Dr. Sonido Bejarano RBC 5.23 106/ul Normal 4.70-6.10 [facility] Comment on above: Result Comment: 2+ P OIKILOCYTOSIS 2+ ANISOCYTOSIS 2+ OVALOCYTE 1+ TEAR DROP CELL 2+ ACANTHOCYTE Performed By: #### C BC #### [facility] [address] [place] [address] Dr. Sonido Bejarano WBC 6.8 103/ul Normal 4.0-11.0 [facility] Comment on above: Performed By: #### C BC #### [facility] [address] [address] [address] Sonido Bejarano CBC AUTO DIFFon 02-24-2023 BASO # 0.0 103/ul Normal 0.0-0.1 [facility] Comment on above: Performed By: #### C BC #### [facility] [address] [place] [address] Dr. Sonido Bejarano Basophils/100 WBC (Bld) 0.5 % Normal 0.2-2.0 [facility] Comment on above: Performed By: #### C BC #### [facility] [address] [place] [address] Dr. Sonido Bejarano EO # 0.1 103/ul Normal 0.0-0.7 [facility] Comment on above: Performed By: #### C BC #### [facility] [address] [place] [address] Dr. Sonido Bejarano Eosinophils/100 WBC (Bld) 1.3 % Normal 0.9-7.0 [facility] Comment on above: Performed By: #### C BC #### [facility] [address] [place] [address] Dr. Sonido Bejarano Erythrocyte distribution width (RBC) [Ratio] 22.8 % Critically high 11.0-15.0 [facility] Comment on above: Performed By: #### C BC #### [facility] [address] [place] [address] Dr. Sonido Bejarano Hematocrit (Bld) [Volume fraction] 34.5 % Critically low 42.0-54.0 [facility] Comment on above: Performed By: #### C BC #### [facility] [address] [place] [address] Dr. Sonido Bejarano Hemoglobin (Bld) [Mass/Vol] 8.9 g/dL Critically low 14.0-18.0 [facility] Comment on above: Performed By: #### C BC #### [facility] [address] [place] [address] Dr. Sonido Bejarano IG # 0.01 10e3/ul Normal 0.00-0.03 [facility] Comment on above: Performed By: #### C BC #### [facility] [address] [place] [address] Dr. Sonido Bejarano IG % 0.2 % Normal 0.0-0.5 [facility] Comment on above: Performed By: #### C BC #### [facility] [address] [place] [address] Dr. Sonido Bejarano LYMPH # 1.0 103/ul Critically low 1.2-3.8 [facility] Comment on above: Performed By: #### C BC #### [facility] [address] [place] [address] Dr. Sonido Bejarano Lymphocytes/100 WBC (Bld) 18.3 % Critically low 20.5-60.0 [facility] Comment on above: Performed By: #### C BC #### [facility] [address] [place] [address] Dr. Sonido Bejarano MANUAL DIFF REQ NO Normal [facility] Comment on above: Performed By: #### C BC #### [facility] [address] [place] [address] Dr. Sonido Bejarano MCH (RBC) [Entitic mass] 15.6 pg Critically low 25.9-34.0 [facility] Comment on above: Performed By: #### C BC #### [facility] [address] [place] [address] Dr. Sonido Bejarano MCHC (RBC) [Mass/Vol] 25.8 g/dL Critically low 29.9-35.2 [facility] Comment on above: Performed By: #### C BC #### [facility] [address] [place] [address] Dr. Sonido Bejarano MCV (RBC) [Entitic vol] 60.6 fL Critically low 80.0-94.0 [facility] Comment on above: Performed By: #### C BC #### [facility] [address] [place] [address] Dr. Sonido Bejarano MONO # 0.7 103/ul Normal 0.3-0.8 [facility] Comment on above: Performed By: #### C BC #### [facility] [address] [place] [address] Dr. Sonido Bejarano Monocytes/100 WBC (Bld) 13.2 % Critically high 1.7-12.0 [facility] Comment on above: Performed By: #### C BC #### [facility] [address] [place] [address] Dr. Sonido Bejarano NEUT # 3.7 103/ul Normal 1.4-6.5 [facility] Comment on above: Performed By: #### C BC #### [facility] [address] [place] [address] Dr. Sonido Bejarano Neutrophils/100 WBC (Bld) 66.5 % Normal 43.0-75.0 [facility] Comment on above: Performed By: #### C BC #### [facility] [address] [place] [address] Dr. Sonido Bejarano Platelet mean volume (Bld) [Entitic vol] 9.6 fL Normal 9.5-13.5 [facility] Comment on above: Performed By: #### C BC #### [facility] [address] [place] [address] Dr. Sonido Bejarano PLT 441 103/ul Normal 150-450 [facility] Comment on above: Performed By: #### C BC #### [facility] [address] [place] [address] Dr. Sonido Bejarano RBC 5.69 106/ul Normal 4.70-6.10 [facility] Comment on above: Result Comment: Anis ocytosis 2+ Hypochromasia 2+ Poikilocytosis 2+ Ovalocytes 1+ Tear drop cells 1+ Acanthocytes 1+ Performed By: #### C BC #### [facility] [address] [place] [address] Dr. Sonido Bejarano WBC 5.5 103/ul Normal 4.0-11.0 [facility] Comment on above: Performed By: #### C BC #### [facility] [address] [place] [address] Dr. Sonido Bejarano CBC AUTO DIFFon 11-20-2022 BASO # 0.1 103/ul Normal 0.0-0.1 [facility] Comment on above: Performed By: #### C BC #### [facility] [address] [place] [address] Dr. Sonido Bejarano Basophils/100 WBC (Bld) 1.0 % Normal 0.2-2.0 [facility] Comment on above: Performed By: #### C BC #### [facility] [address] [place] [address] Dr. Sonido Bejarano EO # 0.1 103/ul Normal 0.0-0.7 [facility] Comment on above: Performed By: #### C BC #### [facility] [address] [place] [address] Dr. Sonido Bejarano Eosinophils/100 WBC (Bld) 2.1 % Normal 0.9-7.0 [facility] Comment on above: Performed By: #### C BC #### [facility] [address] [place] [address] Dr. Sonido Bejarano Erythrocyte distribution width (RBC) [Ratio] 23.0 % Critically high 11.0-15.0 [facility] Comment on above: Performed By: #### C BC #### [facility] [address] [place] [address] Dr. Sonido Bejarano Hematocrit (Bld) [Volume fraction] 32.6 % Critically low 42.0-54.0 [facility] Comment on above: Performed By: #### C BC #### [facility] [address] [place] [address] Dr. Sonido Bejarano Hemoglobin (Bld) [Mass/Vol] 8.0 g/dL Critically low 14.0-18.0 [facility] Comment on above: Performed By: #### C BC #### [facility] [address] [place] [address] Dr. Sonido Bejarano IG # 0.01 10e3/ul Normal 0.00-0.03 [facility] Comment on above: Performed By: #### C BC #### [facility] [address] [place] [address] Dr. Sonido Bejarano IG % 0.2 % Normal 0.0-0.5 [facility] Comment on above: Performed By: #### C BC #### [facility] [address] [place] [address] Dr. Sonido Bejarano LYMPH # 1.1 103/ul Critically low 1.2-3.8 [facility] Comment on above: Performed By: #### C BC #### [facility] [address] [place] [address] Dr. Sonido Bejarano Lymphocytes/100 WBC (Bld) 22.0 % Normal 20.5-60.0 [facility] Comment on above: Performed By: #### C BC #### [facility] [address] [place] [address] Dr. Sonido Bejarano MANUAL DIFF REQ NO Normal [facility] Comment on above: Performed By: #### C BC #### [facility] [address] [place] [address] Dr. Sonido Bejarano MCH (RBC) [Entitic mass] 15.6 pg Critically low 25.9-34.0 [facility] Comment on above: Performed By: #### C BC #### [facility] [address] [place] [address] Dr. Sonido Bejarano MCHC (RBC) [Mass/Vol] 24.5 g/dL Critically low 29.9-35.2 [facility] Comment on above: Performed By: #### C BC #### [facility] [address] [place] [address] Dr. Sonido Bejarano MCV (RBC) [Entitic vol] 63.4 fL Critically low 80.0-94.0 [facility] Comment on above: Performed By: #### C BC #### [facility] [address] [place] [address] Dr. Sonido Bejarano MONO # 0.6 103/ul Normal 0.3-0.8 [facility] Comment on above: Performed By: #### C BC #### [facility] [address] [place] [address] Dr. Sonido Bejarano Monocytes/100 WBC (Bld) 13.0 % Critically high 1.7-12.0 [facility] Comment on above: Performed By: #### C BC #### [facility] [address] [place] [address] Dr. Sonido Bejarano NEUT # 3.0 103/ul Normal 1.4-6.5 [facility] Comment on above: Performed By: #### C BC #### [facility] [address] [place] [address] Dr. Sonido Bejarano Neutrophils/100 WBC (Bld) 61.7 % Normal 43.0-75.0 [facility] Comment on above: Performed By: #### C BC #### [facility] [address] [place] [address] Dr. Sonido Bejarano Platelet mean volume (Bld) [Entitic vol] 8.6 fL Critically low 9.5-13.5 [facility] Comment on above: Performed By: #### C BC #### [facility] [address] [place] [address] Dr. Sonido Bejarano PLT 333 103/ul Normal 150-450 [facility] Comment on above: Performed By: #### C BC #### [facility] [address] [place] [address] Dr. Sonido Bejarano RBC 5.14 106/ul Normal 4.70-6.10 [facility] Comment on above: Performed By: #### C BC #### [facility] [address] [place] [address] Dr. Sonido Bejarano WBC 4.9 103/ul Normal 4.0-11.0 [facility] Comment on above: Performed By: #### C BC #### [facility] [address] [place] [address] Dr. Sonido Bejarano CBC AUTO DIFFon 10-11-2022 BASO # 0.0 103/ul Normal 0.0-0.1 [facility] Comment on above: Performed By: #### C BC #### [facility] [address] [place] [address] Dr. Sonido Bejarano Basophils/100 WBC (Bld) 0.8 % Normal 0.2-2.0 [facility] Comment on above: Performed By: #### C BC #### [facility] [address] [place] [address] Dr. Sonido Bejarano EO # 0.1 103/ul Normal 0.0-0.7 [facility] Comment on above: Performed By: #### C BC #### [facility] [address] [place] [address] Dr. Sonido Bejarano Eosinophils/100 WBC (Bld) 1.5 % Normal 0.9-7.0 [facility] Comment on above: Performed By: #### C BC #### [facility] [address] [place] [address] Dr. Sonido Bejarano Erythrocyte distribution width (RBC) [Ratio] 22.4 % Critically high 11.0-15.0 [facility] Comment on above: Performed By: #### C BC #### [facility] [address] [place] [address] Dr. Sonido Bejarano Hematocrit (Bld) [Volume fraction] 32.3 % Critically low 42.0-54.0 [facility] Comment on above: Performed By: #### C BC #### [facility] [address] [place] [address] Dr. Sonido Bejarano Hemoglobin (Bld) [Mass/Vol] 8.1 g/dL Critically low 14.0-18.0 [facility] Comment on above: Performed By: #### C BC #### [facility] [address] [place] [address] Dr. Sonido Bejarano IG # 0.01 10e3/ul Normal 0.00-0.03 [facility] Comment on above: Performed By: #### C BC #### [facility] [address] [place] [address] Dr. Sonido Bejarano IG % 0.2 % Normal 0.0-0.5 [facility] Comment on above: Performed By: #### C BC #### [facility] [address] [place] [address] Dr. Sonido Bejarano LYMPH # 1.2 103/ul Normal 1.2-3.8 [facility] Comment on above: Performed By: #### C BC #### [facility] [address] [place] [address] Dr. Sonido Bejarano Lymphocytes/100 WBC (Bld) 22.8 % Normal 20.5-60.0 [facility] Comment on above: Performed By: #### C BC #### [facility] [address] [place] [address] Dr. Sonido Bejarano MANUAL DIFF REQ NO Normal [facility] Comment on above: Performed By: #### C BC #### [facility] [address] [place] [address] Dr. Sonido Bejarano MCH (RBC) [Entitic mass] 15.1 pg Critically low 25.9-34.0 [facility] Comment on above: Performed By: #### C BC #### [facility] [address] [place] [address] Dr. Sonido Bejarano MCHC (RBC) [Mass/Vol] 25.1 g/dL Critically low 29.9-35.2 [facility] Comment on above: Performed By: #### C BC #### [facility] [address] [place] [address] Dr. Sonido Bejarano MCV (RBC) [Entitic vol] 60.0 fL Critically low 80.0-94.0 [facility] Comment on above: Performed By: #### C BC #### [facility] [address] [place] [address] Dr. Sonido Bejarano MONO # 0.7 103/ul Normal 0.3-0.8 [facility] Comment on above: Performed By: #### C BC #### [facility] [address] [place] [address] Dr. Sonido Bejarano Monocytes/100 WBC (Bld) 12.5 % Critically high 1.7-12.0 [facility] Comment on above: Performed By: #### C BC #### [facility] [address] [place] [address] Dr. Sonido Bejarano NEUT # 3.2 103/ul Normal 1.4-6.5 [facility] Comment on above: Performed By: #### C BC #### [facility] [address] [place] [address] Dr. Sonido Bejarano Neutrophils/100 WBC (Bld) 62.2 % Normal 43.0-75.0 [facility] Comment on above: Performed By: #### C BC #### [facility] [address] [place] [address] Dr. Sonido Bejarano Platelet mean volume (Bld) [Entitic vol] 8.6 fL Critically low 9.5-13.5 [facility] Comment on above: Performed By: #### C BC #### [facility] [address] [place] [address] Dr. Sonido Bejarano PLT 345 103/ul Normal 150-450 [facility] Comment on above: Performed By: #### C BC #### [facility] [address] [place] [address] Dr. Sonido Bejarano RBC 5.38 106/ul Normal 4.70-6.10 [facility] Comment on above: Performed By: #### C BC #### [facility] [address] [place] [address] Dr. Sonido Bejarano WBC 5.2 103/ul Normal 4.0-11.0 [facility] Comment on above: Performed By: #### C BC #### [facility] [address] [place] [address] Dr. Sonido Bejarano CBC W MANUAL DIFFon 09-18-20 ANISOCYTOSIS 3+ Normal [facility] Comment on above: Performed By: #### C BCMAN #### [facility] [address] [place] [address] Dr. Sonido Bejarano ATYPICAL LYMPH # Normal [facility] Comment on above: Performed By: #### C BCMAN #### [facility] [address] [place] [address] Dr. Sonido Bejarano ATYPICAL LYMPH % Normal [facility] Comment on above: Performed By: #### C BCMAN #### [facility] [address] [place] [address] Dr. Sonido Bejarano BAND # Normal 0.0-0.3 [facility] Comment on above: Performed By: #### C BCMAN #### [facility] [address] [place] [address] Dr. Sonido Bejarano BAND % Normal 0-5 [facility] Comment on above: Performed By: #### C BCMAN #### [facility] [address] [place] [address] Dr. Sonido Bejarano BASOM # 0.00 103/ul Normal 0.00-0.10 [facility] Comment on above: Performed By: #### C BCKATHERINE #### [facility] [address] [place] [address] Dr. Sonido Bejarano BASOM % 0.0 % Critically low 0.2-2.0 [facility] Comment on above: Performed By: #### C BCKATHERINE #### [facility] [address] [place] [address] Dr. Sonido Bejarano BLAST # Normal [facility] Comment on above: Performed By: #### C RAMILA #### [facility] [address] [place] [address] Dr. Sonido Bejarano BLAST % Normal [facility] Comment on above: Performed By: #### C RAMILA #### [facility] [address] [place] [address] Dr. Sonido Bejarano CORRECTED WBC Normal 4.0-11.0 [facility] Comment on above: Performed By: #### C BCKATHERINE #### [facility] [address] [place] [address] Dr. Sonido Bejarano EOS # 0.08 103/ul Normal 0.00-0.70 [facility] Comment on above: Performed By: #### C BCKATHERINE #### [facility] [address] [place] [address] Dr. Sonido Bejarano EOS% 2.0 % Normal 0.9-7.0 [facility] Comment on above: Performed By: #### C RAMILA #### [facility] [address] [place] [address] Dr. Sonido Bejarano HCT 31.1 % Critically low 42.0-54.0 [facility] Comment on above: Performed By: #### C BCKATHERINE #### [facility] [address] [place] [address] Dr. Sonido Bejarano HGB 8.3 g/dl Critically low 14.0-18.0 [facility] Comment on above: Performed By: #### C RAMILA #### [facility] [address] [address] [address] Sonido Bejarano HYPOCHROMASIA SLIGHT Normal [facility] Comment on above: Performed By: #### C RAMILA #### [facility] [address] [address] [address] Sonido Bejarano LYMPHM # 1.13 103/ul Critically low 1.20-3.80 [facility] Comment on above: Performed By: #### C RAMILA #### [facility] [address] [address] [address] Sonido Bejarano LYMPHM% 27.0 % Normal 20.5-60.0 [facility] Comment on above: Performed By: #### C RAMILA #### [facility] [address] [place] [address] Dr. Sonido Bejarano MCH 15.9 pg Critically low 25.9-34.0 [facility] Comment on above: Performed By: #### C RAMILA #### [facility] [address] [address] [address] Sonido Bejarano MCHC 26.7 g/dl Critically low 29.9-35.2 [facility] Comment on above: Performed By: #### C RAMILA #### [facility] [address] [address] [address] Sonido Bejarano MCV 59.5 fL Critically low 80.0-94.0 [facility] Comment on above: Performed By: #### C RAMILA #### [facility] [address] [place] [address] Dr. Sonido Bejarano METAMYELOCYTE # Normal [facility] Comment on above: Performed By: #### C RAMILA #### [facility] [address] [place] [address] Dr. Sonido Bejarano METAMYELOCYTE % Normal [facility] Comment on above: Performed By: #### C RAMILA #### [facility] [address] [address] [address] Sonido Bejarano MICROCYTOSIS 3+ Normal [facility] Comment on above: Performed By: #### C RAMILA #### [facility] [address] [place] [address] Dr. Sonido Bejarano MONOM# 0.55 103/ul Normal 0.30-0.80 [facility] Comment on above: Performed By: #### C RAMILA #### [facility] [address] [place] [address] Dr. Sonido Bejarano MONOM% 13.0 % Critically high 1.7-12.0 [facility] Comment on above: Performed By: #### C RAMILA #### [facility] [address] [place] [address] Dr. Sonido Bejarano MPV 9.7 fL Normal 9.5-13.5 [facility] Comment on above: Performed By: #### C RAMILA #### [facility] [address] [place] [address] Dr. Sonido Bejarano MYELOCYTE # Normal [facility] Comment on above: Performed By: #### C RAMILA #### [facility] [address] [place] [address] Dr. Sonido Bejarano MYELOCYTE % Normal [facility] Comment on above: Performed By: #### C RAMILA #### [facility] [address] [place] [address] Dr. Sonido Bejarano NRBC Normal [facility] Comment on above: Performed By: #### C RAMILA #### [facility] [address] [place] [address] Dr. Sonido Bejarano PLT 421 103/ul Normal 150-450 [facility] Comment on above: Performed By: #### C RAMILA #### [facility] [address] [place] [address] Dr. Sonido Bejarano RBC 5.23 106/ul Normal 4.70-6.10 [facility] Comment on above: Performed By: #### C RAMILA #### [facility] [address] [place] [address] Dr. Sonido Bejarano RDW 22.2 % Critically high 11.0-15.0 [facility] Comment on above: Performed By: #### C BCMAN #### [facility] [address] [place] [address] Dr. Sonido Bejarano SEG # 2.44 103/ul Normal 1.40-6.50 [facility] Comment on above: Performed By: #### C BCMAN #### [facility] [address] [place] [address] Dr. Sonido Bejarano SEG % 58.0 % Normal 43.0-75.0 [facility] Comment on above: Performed By: #### C BCMAN #### [facility] [address] [place] [address] Dr. Sonido Bejarano WBC 4.2 103/ul Normal 4.0-11.0 [facility] Comment on above: Performed By: #### C BCMAN #### [facility] [address] [place] [address] Dr. Sonido Bejarano CBC AUTO DIFFon 08-21-2022 BASO # 0.0 103/ul Normal 0.0-0.1 [facility] Comment on above: Performed By: #### C BC #### [facility] [address] [place] [address] Dr. Sonido Bejarano Basophils/100 WBC (Bld) 0.6 % Normal 0.2-2.0 [facility] Comment on above: Performed By: #### C BC #### [facility] [address] [place] [address] Dr. Sonido Bejarano EO # 0.1 103/ul Normal 0.0-0.7 [facility] Comment on above: Performed By: #### C BC #### [facility] [address] [place] [address] Dr. Sonido Bejarano Eosinophils/100 WBC (Bld) 1.0 % Normal 0.9-7.0 [facility] Comment on above: Performed By: #### C BC #### [facility] [address] [place] [address] Dr. Sonido Bejarano Erythrocyte distribution width (RBC) [Ratio] 21.9 % Critically high 11.0-15.0 [facility] Comment on above: Result Comment: anis ocytosis 2+ Performed By: #### C BC #### [facility] [address] [place] [address] Dr. Sonido Bejarano Hematocrit (Bld) [Volume fraction] 32.7 % Critically low 42.0-54.0 [facility] Comment on above: Performed By: #### C BC #### [facility] [address] [place] [address] Dr. Sonido Bejarano Hemoglobin (Bld) [Mass/Vol] 8.4 g/dL Critically low 14.0-18.0 [facility] Comment on above: Performed By: #### C BC #### [facility] [address] [place] [address] Dr. Sonido Bejarano IG # 0.01 10e3/ul Normal 0.00-0.03 [facility] Comment on above: Performed By: #### C BC #### [facility] [address] [place] [address] Dr. Sonido Bejarano IG % 0.2 % Normal 0.0-0.5 [facility] Comment on above: Performed By: #### C BC #### [facility] [address] [place] [address] Dr. Sonido Bejarano LYMPH # 1.1 103/ul Critically low 1.2-3.8 [facility] Comment on above: Performed By: #### C BC #### [facility] [address] [place] [address] Dr. Sonido Bejarano Lymphocytes/100 WBC (Bld) 22.3 % Normal 20.5-60.0 [facility] Comment on above: Performed By: #### C BC #### [facility] [address] [place] [address] Dr. Sonido Bejarano MANUAL DIFF REQ NO Normal [facility] Comment on above: Performed By: #### C BC #### [facility] [address] [place] [address] Dr. Sonido Bejarano MCH (RBC) [Entitic mass] 15.3 pg Critically low 25.9-34.0 [facility] Comment on above: Performed By: #### C BC #### [facility] [address] [place] [address] Dr. Sonido Bejarano MCHC (RBC) [Mass/Vol] 25.7 g/dL Critically low 29.9-35.2 [facility] Comment on above: Result Comment: hypo chromasia 2+ Performed By: #### C BC #### [facility] [address] [place] [address] Dr. Sonido Bejarano MCV (RBC) [Entitic vol] 59.6 fL Critically low 80.0-94.0 [facility] Comment on above: Result Comment: micr ocytosis 3+ Performed By: #### C BC #### [facility] [address] [place] [address] Dr. Sonido Bejarano MONO # 0.5 103/ul Normal 0.3-0.8 [facility] Comment on above: Performed By: #### C BC #### [facility] [address] [place] [address] Dr. Sonido Bejarano Monocytes/100 WBC (Bld) 10.8 % Normal 1.7-12.0 [facility] Comment on above: Performed By: #### C BC #### [facility] [address] [place] [address] Dr. Sonido Bejarano NEUT # 3.2 103/ul Normal 1.4-6.5 [facility] Comment on above: Performed By: #### C BC #### [facility] [address] [place] [address] Dr. Sonido Bejarano Neutrophils/100 WBC (Bld) 65.1 % Normal 43.0-75.0 [facility] Comment on above: Performed By: #### C BC #### [facility] [address] [place] [address] Dr. Sonido Bejarano Platelet mean volume (Bld) [Entitic vol] 9.5 fL Normal 9.5-13.5 [facility] Comment on above: Performed By: #### C BC #### [facility] [address] [place] [address] Dr. Sonido Bejarano PLT 415 103/ul Normal 150-450 [facility] Comment on above: Performed By: #### C BC #### [facility] [address] [place] [address] Dr. Sonido Bejarano RBC 5.49 106/ul Normal 4.70-6.10 [facility] Comment on above: Performed By: #### C BC #### [facility] [address] [place] [address] Dr. Sonido Bejarano WBC 5.0 103/ul Normal 4.0-11.0 [facility] Comment on above: Performed By: #### C BC #### [facility] [address] [place] [address] Dr. Sonido Bejarano CBC AUTO DIFFon 08-02-2022 BASO # 0.0 103/ul Normal 0.0-0.1 [facility] Comment on above: Performed By: #### C BC #### [facility] [address] [place] [address] Dr. Sonido Bejarano Basophils/100 WBC (Bld) 0.3 % Normal 0.2-2.0 [facility] Comment on above: Performed By: #### C BC #### [facility] [address] [place] [address] Dr. Sonido Bejarano EO # 0.0 103/ul Normal 0.0-0.7 [facility] Comment on above: Performed By: #### C BC #### [facility] [address] [place] [address] Dr. Sonido Bejarano Eosinophils/100 WBC (Bld) 0.7 % Critically low 0.9-7.0 [facility] Comment on above: Performed By: #### C BC #### [facility] [address] [place] [address] Dr. Sonido Bejarano Erythrocyte distribution width (RBC) [Ratio] 21.9 % Critically high 11.0-15.0 [facility] Comment on above: Performed By: #### C BC #### [facility] [address] [place] [address] Dr. Sonido Bejarano Hematocrit (Bld) [Volume fraction] 30.0 % Critically low 42.0-54.0 [facility] Comment on above: Performed By: #### C BC #### [facility] [address] [address] [address] Sonido Bejarano Hemoglobin (Bld) [Mass/Vol] 7.8 g/dL Critically low 14.0-18.0 [facility] Comment on above: Performed By: #### C BC #### [facility] [address] [address] [address] Sonido Bejarano IG # 0.01 10e3/ul Normal 0.00-0.03 [facility] Comment on above: Performed By: #### C BC #### [facility] [address] [place] [address] Dr. Sonido Bejarano IG % 0.2 % Normal 0.0-0.5 [facility] Comment on above: Performed By: #### C BC #### [facility] [address] [address] [address] Sonido Bejarano LYMPH # 1.0 103/ul Critically low 1.2-3.8 [facility] Comment on above: Performed By: #### C BC #### [facility] [address] [place] [address] Dr. Sonido Bejarano Lymphocytes/100 WBC (Bld) 18.0 % Critically low 20.5-60.0 [facility] Comment on above: Performed By: #### C BC #### [facility] [address] [place] [address] Dr. Sonido Bejarano MANUAL DIFF REQ NO Normal [facility] Comment on above: Performed By: #### C BC #### [facility] [address] [address] [address] Sonido Bejarano MCH (RBC) [Entitic mass] 15.9 pg Critically low 25.9-34.0 [facility] Comment on above: Performed By: #### C BC #### [facility] [address] [place] [address] Dr. Sonido Bejarano MCHC (RBC) [Mass/Vol] 26.0 g/dL Critically low 29.9-35.2 [facility] Comment on above: Performed By: #### C BC #### [facility] [address] [place] [address] Dr. Sonido Bejarano MCV (RBC) [Entitic vol] 61.2 fL Critically low 80.0-94.0 [facility] Comment on above: Performed By: #### C BC #### [facility] [address] [place] [address] Dr. Sonido Bejarano MONO # 0.5 103/ul Normal 0.3-0.8 [facility] Comment on above: Performed By: #### C BC #### [facility] [address] [place] [address] Dr. Sonido Bejarano Monocytes/100 WBC (Bld) 8.7 % Normal 1.7-12.0 [facility] Comment on above: Performed By: #### C BC #### [facility] [address] [place] [address] Dr. Sonido Bejarano NEUT # 4.1 103/ul Normal 1.4-6.5 [facility] Comment on above: Performed By: #### C BC #### [facility] [address] [place] [address] Dr. Sonido Bejarano Neutrophils/100 WBC (Bld) 72.1 % Normal 43.0-75.0 [facility] Comment on above: Performed By: #### C BC #### [facility] [address] [place] [address] Dr. Sonido Bejarano Platelet mean volume (Bld) [Entitic vol] 9.3 fL Critically low 9.5-13.5 [facility] Comment on above: Performed By: #### C BC #### [facility] [address] [place] [address] Dr. Sonido Bejarano PLT 339 103/ul Normal 150-450 [facility] Comment on above: Performed By: #### C BC #### [facility] [address] [place] [address] Dr. Sonido Bejarano RBC 4.90 106/ul Normal 4.70-6.10 [facility] Comment on above: Performed By: #### C BC #### [facility] [address] [place] [address] Dr. Sonido Bejarano WBC 5.7 103/ul Normal 4.0-11.0 [facility] Comment on above: Performed By: #### C BC #### [facility] [address] [place] [address] Dr. Sonido Bejarano CBC AUTO DIFFon 06-17-2022 BASO # 0.0 103/ul Normal 0.0-0.1 [facility] Comment on above: Performed By: #### C BC #### [facility] [address] [place] [address] Dr. Sonido Bejarano Basophils/100 WBC (Bld) 0.7 % Normal 0.2-2.0 [facility] Comment on above: Performed By: #### C BC #### [facility] [address] [place] [address] Dr. Sonido Bejarano EO # 0.3 103/ul Normal 0.0-0.7 [facility] Comment on above: Performed By: #### C BC #### [facility] [address] [place] [address] Dr. Sonido Bejarano Eosinophils/100 WBC (Bld) 5.3 % Normal 0.9-7.0 [facility] Comment on above: Performed By: #### C BC #### [facility] [address] [place] [address] Dr. Sonido Bejarano Erythrocyte distribution width (RBC) [Ratio] 22.1 % Critically high 11.0-15.0 [facility] Comment on above: Performed By: #### C BC #### [facility] [address] [place] [address] Dr. Sonido Bejarano Hematocrit (Bld) [Volume fraction] 32.2 % Critically low 42.0-54.0 [facility] Comment on above: Performed By: #### C BC #### [facility] [address] [place] [address] Dr. Sonido Bejarano Hemoglobin (Bld) [Mass/Vol] 8.2 g/dL Critically low 14.0-18.0 [facility] Comment on above: Performed By: #### C BC #### [facility] [address] [place] [address] Dr. Sonido Bejarano IG # 0.01 10e3/ul Normal 0.00-0.03 [facility] Comment on above: Performed By: #### C BC #### [facility] [address] [place] [address] Dr. Sonido Bejarano IG % 0.2 % Normal 0.0-0.5 [facility] Comment on above: Performed By: #### C BC #### [facility] [address] [place] [address] Dr. Sonido Bejarano LYMPH # 1.1 103/ul Critically low 1.2-3.8 [facility] Comment on above: Performed By: #### C BC #### [facility] [address] [place] [address] Dr. Sonido Bejarano Lymphocytes/100 WBC (Bld) 19.3 % Critically low 20.5-60.0 [facility] Comment on above: Performed By: #### C BC #### [facility] [address] [place] [address] Dr. Sonido Bejarano MANUAL DIFF REQ NO Normal [facility] Comment on above: Performed By: #### C BC #### [facility] [address] [place] [address] Dr. Sonido Bejarano MCH (RBC) [Entitic mass] 15.8 pg Critically low 25.9-34.0 [facility] Comment on above: Performed By: #### C BC #### [facility] [address] [place] [address] Dr. Sonido Bejarano MCHC (RBC) [Mass/Vol] 25.5 g/dL Critically low 29.9-35.2 [facility] Comment on above: Performed By: #### C BC #### [facility] [address] [place] [address] Dr. Sonido Bejarano MCV (RBC) [Entitic vol] 62.0 fL Critically low 80.0-94.0 [facility] Comment on above: Performed By: #### C BC #### [facility] [address] [address] [address] Sonido Bejarano MONO # 0.9 103/ul Critically high 0.3-0.8 [facility] Comment on above: Performed By: #### C BC #### [facility] [address] [address] [address] Sonido Bejarano Monocytes/100 WBC (Bld) 16.0 % Critically high 1.7-12.0 [facility] Comment on above: Performed By: #### C BC #### [facility] [address] [place] [address] Dr. Sonido Bejarano NEUT # 3.2 103/ul Normal 1.4-6.5 [facility] Comment on above: Performed By: #### C BC #### [facility] [address] [place] [address] Dr. Soniod Bejarano Neutrophils/100 WBC (Bld) 58.5 % Normal 43.0-75.0 [facility] Comment on above: Performed By: #### C BC #### [facility] [address] [place] [address] Dr. Sonido Bejarano Platelet mean volume (Bld) [Entitic vol] 9.3 fL Critically low 9.5-13.5 [facility] Comment on above: Performed By: #### C BC #### [facility] [address] [place] [address] Dr. Sonido Bejarano PLT 335 103/ul Normal 150-450 [facility] Comment on above: Performed By: #### C BC #### [facility] [address] [place] [address] Dr. Sonido Bejarano RBC 5.19 106/ul Normal 4.70-6.10 [facility] Comment on above: Performed By: #### C BC #### [facility] [address] [place] [address] Dr. Sonido Bejarano WBC 5.5 103/ul Normal 4.0-11.0 [facility] Comment on above: Performed By: #### C BC #### [facility] [address] [address] [address] Sonido Bejarano CBC AUTO DIFFon 05-15-2022 BASO # 0.0 103/ul Normal 0.0-0.1 [facility] Comment on above: Performed By: #### C BC #### [facility] [address] [address] [address] Sonido Bejarano Basophils/100 WBC (Bld) 0.8 % Normal 0.2-2.0 [facility] Comment on above: Performed By: #### C BC #### [facility] [address] [address] [address] Sonido Bejarano EO # 0.1 103/ul Normal 0.0-0.7 [facility] Comment on above: Performed By: #### C BC #### [facility] [address] [place] [address] Dr. Sonido Bejarano Eosinophils/100 WBC (Bld) 2.3 % Normal 0.9-7.0 [facility] Comment on above: Performed By: #### C BC #### [facility] [address] [place] [address] Dr. Sonido Bejarano Erythrocyte distribution width (RBC) [Ratio] 21.5 % Critically high 11.0-15.0 [facility] Comment on above: Performed By: #### C BC #### [facility] [address] [place] [address] Dr. Sonido Bejarano Hematocrit (Bld) [Volume fraction] 30.5 % Critically low 42.0-54.0 [facility] Comment on above: Performed By: #### C BC #### [facility] [address] [address] [address] Sonido Bejarano Hemoglobin (Bld) [Mass/Vol] 7.9 g/dL Critically low 14.0-18.0 [facility] Comment on above: Performed By: #### C BC #### [facility] [address] [place] [address] Dr. Sonido Bejarano IG # 0.01 10e3/ul Normal 0.00-0.03 [facility] Comment on above: Performed By: #### C BC #### [facility] [address] [place] [address] Dr. Sonido Bejarano IG % 0.2 % Normal 0.0-0.5 [facility] Comment on above: Performed By: #### C BC #### [facility] [address] [place] [address] Dr. Sonido Bejarano LYMPH # 1.3 103/ul Normal 1.2-3.8 [facility] Comment on above: Performed By: #### C BC #### [facility] [address] [place] [address] Dr. Sonido Bejarano Lymphocytes/100 WBC (Bld) 24.6 % Normal 20.5-60.0 [facility] Comment on above: Performed By: #### C BC #### [facility] [address] [place] [address] Dr. Sonido Bejarano MANUAL DIFF REQ NO Normal [facility] Comment on above: Performed By: #### C BC #### [facility] [address] [place] [address] Dr. Sonido Bejarano MCH (RBC) [Entitic mass] 15.6 pg Critically low 25.9-34.0 [facility] Comment on above: Performed By: #### C BC #### [facility] [address] [place] [address] Dr. Sonido Bejarano MCHC (RBC) [Mass/Vol] 25.9 g/dL Critically low 29.9-35.2 [facility] Comment on above: Performed By: #### C BC #### [facility] [address] [place] [address] Dr. Sonido Bejarano MCV (RBC) [Entitic vol] 60.4 fL Critically low 80.0-94.0 [facility] Comment on above: Performed By: #### C BC #### [facility] [address] [place] [address] Dr. Sonido Bejarano MONO # 0.6 103/ul Normal 0.3-0.8 [facility] Comment on above: Performed By: #### C BC #### [facility] [address] [place] [address] Dr. Sonido Bejarano Monocytes/100 WBC (Bld) 12.1 % Critically high 1.7-12.0 [facility] Comment on above: Performed By: #### C BC #### [facility] [address] [place] [address] Dr. Sonido Bejarano NEUT # 3.1 103/ul Normal 1.4-6.5 [facility] Comment on above: Performed By: #### C BC #### [facility] [address] [place] [address] Dr. Sonido Bejarano Neutrophils/100 WBC (Bld) 60.0 % Normal 43.0-75.0 [facility] Comment on above: Performed By: #### C BC #### [facility] [address] [place] [address] Dr. Sonido Bejarano Platelet mean volume (Bld) [Entitic vol] 9.6 fL Normal 9.5-13.5 [facility] Comment on above: Performed By: #### C BC #### [facility] [address] [place] [address] Dr. Sonido Bejarano PLT 399 103/ul Normal 150-450 [facility] Comment on above: Performed By: #### C BC #### [facility] [address] [place] [address] Dr. Sonido Bejarano RBC 5.05 106/ul Normal 4.70-6.10 [facility] Comment on above: Performed By: #### C BC #### [facility] [address] [place] [address] Dr. Sonido Bejarano WBC 5.1 103/ul Normal 4.0-11.0 [facility] Comment on above: Performed By: #### C BC #### [facility] [address] [place] [address] Dr. Sonido Bejarano CBC AUTO DIFFon 04-15-2022 BASO # 0.0 103/ul Normal 0.0-0.1 [facility] Comment on above: Performed By: #### C BC #### [facility] [address] [address] [address] Sonido Bejarano Basophils/100 WBC (Bld) 0.3 % Normal 0.2-2.0 [facility] Comment on above: Performed By: #### C BC #### [facility] [address] [address] [address] Sonido Bejarano EO # 0.1 103/ul Normal 0.0-0.7 [facility] Comment on above: Performed By: #### C BC #### [facility] [address] [address] [address] Sonido Bejarano Eosinophils/100 WBC (Bld) 1.0 % Normal 0.9-7.0 [facility] Comment on above: Performed By: #### C BC #### [facility] [address] [place] [address] Dr. Sonido Bejarano Erythrocyte distribution width (RBC) [Ratio] 21.2 % Critically high 11.0-15.0 [facility] Comment on above: Performed By: #### C BC #### [facility] [address] [place] [address] Dr. Sonido Bejarano Hematocrit (Bld) [Volume fraction] 32.2 % Critically low 42.0-54.0 [facility] Comment on above: Performed By: #### C BC #### [facility] [address] [place] [address] Dr. Sonido Bejarano Hemoglobin (Bld) [Mass/Vol] 8.3 g/dL Critically low 14.0-18.0 [facility] Comment on above: Performed By: #### C BC #### [facility] [address] [place] [address] Dr. Sonido Bejarano IG # 0.03 10e3/ul Normal 0.00-0.03 [facility] Comment on above: Performed By: #### C BC #### [facility] [address] [place] [address] Dr. Sonido Bejarano IG % 0.4 % Normal 0.0-0.5 [facility] Comment on above: Performed By: #### C BC #### [facility] [address] [address] [address] Sonido Bejarano LYMPH # 1.0 103/ul Critically low 1.2-3.8 [facility] Comment on above: Performed By: #### C BC #### [facility] [address] [address] [address] Sonido Bejarano Lymphocytes/100 WBC (Bld) 15.2 % Critically low 20.5-60.0 [facility] Comment on above: Performed By: #### C BC #### [facility] [address] [address] [address] Sonido Bejarano MANUAL DIFF REQ NO Normal [facility] Comment on above: Performed By: #### C BC #### [facility] [address] [address] [address] Sonido Bejarano MCH (RBC) [Entitic mass] 16.1 pg Critically low 25.9-34.0 [facility] Comment on above: Performed By: #### C BC #### [facility] [address] [address] [address] Sonido Bejarano MCHC (RBC) [Mass/Vol] 25.8 g/dL Critically low 29.9-35.2 [facility] Comment on above: Performed By: #### C BC #### [facility] [address] [address] [address] Sonido Bejarano MCV (RBC) [Entitic vol] 62.4 fL Critically low 80.0-94.0 [facility] Comment on above: Performed By: #### C BC #### [facility] [address] [address] [address] Sonido Bejarano MONO # 0.6 103/ul Normal 0.3-0.8 [facility] Comment on above: Performed By: #### C BC #### [facility] [address] [address] [address] Sonido Bejarano Monocytes/100 WBC (Bld) 8.5 % Normal 1.7-12.0 [facility] Comment on above: Performed By: #### C BC #### [facility] [address] [place] [address] Dr. Sonido Bejarano NEUT # 5.0 103/ul Normal 1.4-6.5 [facility] Comment on above: Performed By: #### C BC #### [facility] [address] [place] [address] Dr. Sonido Bejarano Neutrophils/100 WBC (Bld) 74.6 % Normal 43.0-75.0 [facility] Comment on above: Performed By: #### C BC #### [facility] [address] [place] [address] Dr. Sonido Bejarano Platelet mean volume (Bld) [Entitic vol] 9.9 fL Normal 9.5-13.5 [facility] Comment on above: Performed By: #### C BC #### [facility] [address] [place] [address] Dr. Sonido Bejarano PLT 355 103/ul Normal 150-450 [facility] Comment on above: Performed By: #### C BC #### [facility] [address] [place] [address] Dr. Sonido Bejarano RBC 5.16 106/ul Normal 4.70-6.10 [facility] Comment on above: Result Comment: 1+ o valocytes slight hypochromic slight microchromic Performed By: #### C BC #### [facility] [address] [place] [address] Dr. Sonido Bejarano WBC 6.7 103/ul Normal 4.0-11.0 [facility] Comment on above: Performed By: #### C BC #### [facility] [address] [place] [address] Dr. Sonido BENNETTOVon 03-28-2022 CNOV Office Visit ([facility] ) -------- RJ GONZALES ([id number]) 2000 [address] [place] Date Time Provider Department 03/28/22 11:20 AM ARNOLD GERMAIN [facility] During your visit today, we recorded the [...] the office on 11/16/21 with Cristal Suarez MONOTYPE MECHANIC for follow up visit after he underwent [...] exam Anorectal: External exam reveals: see below Machine Attendant present: yes Assessment Assessment and Plan: Rj Gonzales is a 21 year old male with straining and occasional rectal bleeding. Today, we talked about adding a magnesium supplement CALM to his regimen to decrease straining. I am of the opinion that more surgery is not the best option at this time. Arnold Germain MD Colorectal Surgery Charley Mcclelland RN 03/28/2022 [...] Assessed Reason for Visit: Established Patient Follow-Up [[id number]] Rectal Bleeding [202] Primary Visit Diagnosis:Hematochezia [K92.1] [...] benztropine (C (more content not included)... Normal [facility] 03-28-2022 CNPN Telephone ([facility]) -------- RJ GONZALES ([id number]) 2000 [address] Date Time Provider Department 03/28/22 ARNOLD GERMAIN [facility] During your visit today, we recorded the following information about you: Essiealbert Pickard Pss 03/28/2022 1:41 PM Signed Patient called and left message regarding prescription from today's visit return call to [phone] Charley Mcclelland RN 03/28/2022 2:49 PM Signed [...] Fully Assessed Reason for Visit: Patient Question [7196] Prescriptions as of 03/28/2022 - acetaminophen (TYLENOL) [...] Encounter Status:Closed by CHARLEY MCCLELLAND on 03/28/22 [facility] Telephone ([id number]) -------- RJ GONZALES ([id number]) 2000 [address] [place]* Date Time Provider Department 03/28/22 ARNOLD GERMAIN [id number] During your visit today, we recorded the following information about you: Sara Rose ADM 03/28/2022 3:45 PM Signed Pharmacy, [facility], phone , any pharmacist to clarify about carbonate? CALM is care home able to order as food item? Please call to discuss. Charley Mcclelland RN 03/28/2022 4:14 PM Signed Spoke with the pharmacist and she states that she does not provide food items. She will speak with the nurse at the care home. Allergies As of Date: 03/28/2022 (No Known [...] Encounter Status:Closed by CHARLEY MCCLELLAND on 03/28/22 [facility] 11-16-2021 CNOV Office Visit ([facility] ) -------- RJ GONZALES ([id number]) 2000 [place] Date Time Provider Department 11/16/21 1:30 PM CIRSTAL SUAREZ During your visit today, we recorded the following information about you: Pulse Blood pressure Weight Height 60/minute 136/80 96.2 kg 1.803 m Cristal Suarez APRN.CONSULTING DATABASE ADMINISTRATOR 11/16/2021 12:59 PM Signed COLORECTAL SURGERY November [...] APRN.HUSAM Colorectal Surgery Referring Provider: ARNOLD GERMAIN [[id number]] Allergies As of Date: 11/16/2021 (No Known Allergies) Date Reviewed: 11/16/2021 Reviewed by: Cristal Suarez APRN.[facility] - Fully Assessed Reason for Visit: [...] 07/10/2021 Hemorrho (more content not included)... Normal [facility] ANES POSTPROC EVALon 021 ANES POSTPROC EVAL HNO ID: [id number] Author: Michael Martínez MD Service: Anesthesiology Author Type: Anesthesiologist Type: Anesthesia Postprocedure Evaluation Filed: 10/17/2021 10:23 AM Note Text: POST ANESTHESIA EVALUATION NOTE : 2000 Procedure Summary Date: 10/17/21 Room / Location: [address] Anesthesia Start: 841 Anesthesia Stop: 913 [...] October 17, 2021 TIME: 10:23 AM CSN: [id number] [facility] ANES PRE-OPon 10-17-2021 ANES PRE-OP HNO ID: [id number] Author: Michael Martínez MD Service: Anesthesiology Author Type: Anesthesiologist Type: Anesthesia Preprocedure Evaluation Filed: 10/17/2021 8:32 AM Note Text: ANESTHESIOLOGY DAY OF SURGERY NOTE : 2000 Procedure Information Date/Time: 10/17/21729 Procedure: HEMORRHOIDECTOMY EXTERNAL > 2 COLUMNS/GROUPS (N/A ) Location: [address] Surgeons: Arnold Germain MD Estimated body [...] October 17, 2021 TIME: 8:27 AM CSN: [id number] [facility] BRIEF OP NOTon 10-17-2021 BRIEF OP NOT HNO ID: [id number] Author: Jared Rowe MD Service: Colorectal Author Type: Resident Type: Brief Op Note Filed: 10/17/2021 9:15 AM Note Text: BRIEF OPERATIVE / PROCEDURE NOTE LOG ID: [id number] SURGERY/PROCEDURE DATE: 10/17/2021 INCISION/PROCEDURE START TIME: 8:55 AM INCISION CLOSE/PROCEDURE END TIME: 9:02 AM SURGEON(S)/PROCEDURALIST (S) AND CLINIC MGR(S): Surgeon(s) and Role: * Arnold Germain MD [...] DATE: October 17, 2021 TIME: 9:13 AM [facility] HISTORY PHYSICALon HISTORY PHYSICAL HNO ID: [id number] Author: Jared Rowe MD Service: Colorectal Author [...] October 17, 2021 TIME: 7:22 AM Normal [facility] OPERATIVE NOon 10-17-2021 OPERATIVE NO HNO ID: [id number] Author: Arnold Germain MD Service: Colorectal Author Type: Physician Type: Operative Report Filed: 10/30/2021 11:21 AM Note Text: [facility] - Operative Report RJ GONZALES : 2000 AGE: 21. SEX: M PATIENT TYPE: A HOSP SVC: [facility] LOCATION: [facility] [place] ATTENDING PHYSICIAN: Arnold Germain M.D. CSN NUMBER: [id number] DATE OF SURGERY/PROCEDURE: 10/17/2021 INCISION/PROCEDURE START TIME: 8:55 AM INCISION CLOSE/PROCEDURE END TIME: 9:02 AM PREOPERATIVE DIAGNOSIS: Hemorrhoids. POSTOPERATIVE DIAGNOSIS: Hemorrhoids. SURGEON: Arnold Germain M.D. CLINIC MGR: Jared. SURGERY/PROCEDURE: Ablation. ANESTHESIA: General ESTIMATED BLOOD [...] was overall very minor. Arnold Germain M.D. BC:[id number] /[id number] [facility] HISTORY PHYSICALon HISTORY PHYSICAL HNO ID: [id number] Author: Zahira Heath APRN.CONSULTING DATABASE ADMINISTRATOR Service: ? Author Type: Nurse Practitioner Type: HANDP Filed: 10/11/2021 11:31 AM Note Text: HISTORY AND PHYSICAL EXAMINATION SERVICE DATE: 10/11/2021 SERVICE TIME: 11:13 AM PRIMARY CARE PHYSICIAN: No primary care provider on file. REASON FOR VISIT: jR Gonzales is a 21 year old male [...] PAT today with a caregiver from his care home. States he is having around 5 bowel [...] fevers. Neuro: No history of TIA's, stroke, CLEANING PROFESSIONAL tumor, impaired sensorium, hemiplegia, paraplegia or quadraplegia. No neurological symptoms or problems. Respiratory: No history of current cough or dyspnea, or pneumonia in the past 6 weeks. No history of respiratory/pulmonary symptoms or problems. Cardiovascular: No history of HTN requiring medication, no history of angina, CHF, PA, cardiac surgery or stents. Denies rest pain, [...] skills. Pulse (more content not included)... Normal [facility] CNOVon 08-31-2021 CNOV Office Visit (COFHAM ) -------- RJ GONZALES ([id number]) 2000 Genia Reyez* Date Time Provider Department 08/31/21 1:30 PM ARNOLD GERMAIN [facility] During your visit today, we recorded the [...] Anorectal: External exam reveals : see below Machine Attendant present: yes Assessment Assessment and Plan: Rj Gonzales is a 21 year old male who is doing relatively well after his recent rubber band ligation. He still has some rectal bleeding and it is difficult to assess the exact amount. If the bleeding persists we will consider internal hemorrhoidectomy. Arnold Germain MD Colorectal Surgery Referring Provider: ELHAM VAN [[id number]] Allergies As of Date: 08/31/2021 (No Known [...] Encounter Status:Closed by ARNOLD GERMAIN on 09/02/21 [facility] OPERATIVE NOon 07-17-2021 OPERATIVE NO HNO ID: [id number] Author: Arnold Germain MD Service: Colorectal Author Type: Physician Type: Operative Report Filed: 08/01/2021 1:12 PM Note Text: [facility] - Operative Report RJ GONZALES : 2000 AGE: 21. SEX: M PATIENT TYPE: A HOSP SV: [facility] LOCATION: [facility] ATTENDING PHYSICIAN: Arnold Germain M.D. CSN NUMBER: [id number] DATE OF SURGERY/PROCEDURE: 07/12/2021 INCISION/PROCEDURE START TIME: 10:55 AM INCISION CLOSE/PROCEDURE END TIME: 10:58 AM PREOPERATIVE DIAGNOSIS: Rectal bleeding. POSTOPERATIVE DIAGNOSIS: Rectal bleeding. SURGEON: Arnold Germain M.D. CLINIC MGR: None. SURGERY/PROCEDURE: Rubber-band ligation hemorrhoidectomy. ANESTHESIA: General [...] room in good condition. Arnold Germain M.D. BC:[id number] /[id number] [facility] 07-13-2021 [facility] Telephone ([facility]) -------- RJ GONZALES ([id number]) 2000 Genia Leigh Co* Date Time Provider Department 07/13/21 ARNOLD GERMAIN [facility] During your visit today, we recorded the following information about you: Essie Pryorle Pss 07/13/2021 3:27 PM Signed Patient's caregiver called with post operative hemorrhoidectomy questions and concerns of bands falling off return call to [phone] Sara Rose [facility] 07/16/2021 12:22 PM Signed Kasia, caregiver called. Patient banding undone. Called last Friday, waiting to talk to nurse about care. [phone] Nona Banks RN 07/16/2021 4:56 PM Signed [...] Status:Closed by NONA BANKS on 07/16/21 Normal [facility] ANES POSTPROC EVALon 021 ANES POSTPROC EVAL HNO ID: [id number] Author: Jared Arriaga MD Service: Anesthesiology Author Type: Anesthesiologist Type: Anesthesia Postprocedure Evaluation Filed: 07/12/2021 12:05 PM Note Text: POST ANESTHESIA EVALUATION NOTE : 2000 Procedure Summary Date: 07/12/21 Room / Location: [address] / [facility] Anesthesia Start: 1044 Anesthesia Stop: 1110 Procedures: [...] July 12, 2021 TIME: 12:05 PM CSN: [id number] [facility] ANES PRE-OPon 07-12-2021 ANES PRE-OP HNO ID: [id number] Author: Jared Arriaga MD Service: Anesthesiology Author [...] July 12, 2021 TIME: 9:18 AM CSN: [id number] [facility] HISTORY PHYSICALon HISTORY PHYSICAL HNO ID: [id number] Author: Arnold Germain MD Service: Colorectal Author [...] DATE: July 12, 2021 TIME: 10:39 AM [facility] HISTORY PHYSICALon HISTORY PHYSICAL HNO ID: [id number] Author: Zahira Ivy PA-C Service: ? Author Type: Physician Stereoplotter Operator Type: HANDP Filed: 07/10/2021 2:28 PM Note [...] PAT today with a caregiver from his care home. States he is having around 5 bowel [...] fevers. Neuro: No history of TIA's, stroke, CLEANING PROFESSIONAL tumor, impaired sensorium, hemiplegia, paraplegia or quadraplegia. No neurological symptoms or problems. + MR / DD Respiratory: No history of current cough or dyspnea, or pneumonia in the past 6 weeks. No history of respiratory/pulmonary symptoms or problems. Cardiovascular: No history of HTN requiring medication, no history of angina, CHF, PA, cardiac surgery or stents. Denies rest pain, [...] found for: (more content not included)... [facility] Telephone ([id number]) -------- RJ GONZALES ([id number]) 2000 M Date Time Provider Department 07/05/21 ARNOLD GERMAIN [id number] During your visit today, we recorded the following information about you: Sara Rose ADM 07/05/2021 3:26 PM Signed Kasia Nurse Licensed Veterinary Technician at care home where patient resides called to discuss procedure information and date. Call to discuss [phone] Sara Rose ADM 07/06/2021 11:12 AM Signed Kasia nurse aware of 07/12 procedure date. Would like the nurse to call to advise any prep instructions other than fasting after midnight. Call Nurse Kasia mgr [phone] Cristal Suarez APRN.[facility] 07/06/2021 12:27 PM Signed Call returned. Reviewed NPO after midnight and scheduled PACCs appointment. Allergies As of Date: 07/05/2021 (No Known Allergies) Date Reviewed: 06/29/2021 Reviewed by: Arnold Germain MD - Fully Assessed Reason for Visit: procedure info [Other] Cmt: discuss plan Primary Visit Diagnosis:Hemorrhoids, internal, with bleeding [K64.8] Order(s):VIRTUAL CONSULT TO PACC [[id number]] Order #: [id number]: 1 FUTURE Prescriptions as of 07/06/2021 - [...] Encounter Status:Closed by CRISTAL SUAREZ on 07/06/21 [facility] 06-29-2021 CNOV Office Visit (COFHAM ) -------- RJ GONZALES ([id number]) 2000 M Date Time Provider Department 06/29/21 [...] clinic today with a caregiver from his care home. They relate that he is having around [...] (222 lb 4.8 oz) BMI 31.90 kg/m? Machine Attendant present: Yes Rj Gonzales is a 21 year old male presents with complaint of rectal bleeding with prolapsing Grade 3 internal hemorrhoids on exam. Our plan is to perform an EUA and rubber band ligation of internal hemorrhoids at the [facility]. Medical Decision Making: Arnold Germain MD Colorectal Surgery Referring Provider: ELHAM VAN [[id number]] Allergies As of Date: 06/29/2021 (No Known [...] Encounter Status:Closed by ARNOLD GERMAIN on 06/29/21 [facility] 05-22-2021 [facility] -------- RJ GONZALES ([id number]) 2000 M Date Time Provider Department 05/22/21 ARNOLD GERMAIN [facility] During your visit today, we recorded the following information about you: Tamiko Sweeney 05/22/2021 3:28 PM Signed Ph. [phone] Alivia, who works for [email or web address], was transferred to Dr. Van's [...] Known Allergies) Date Reviewed: 06/02/2018 Reviewed by: Arnold Germain - Fully Assessed Reason for Visit: Ring Sewer - Other [[id number]] Cmt: appointment Prescriptions as of 05/23/2021 - [...] Status:Closed by NONA BANKS on 05/23/21 Normal [facility] Coding Summary.on 05-01-2018 Coding Summary. CODING DATE: 018 FINAL [facility] STATUS: Home (Routine DC) PAYOR: Medicaid EAPG [...] PROC EAPG STAT DESCRIPTION DOCTOR NAME DATE 76127 0149 Colonoscopy, flexible; Colin Shirley MD 04/17/2018 with biopsy, single or multiple 74 Discontinued [facility] Procedure After Administration of Anesthe 06387 Anesthesia for Colin Peñaloza MD 04/17/2018 intestinal endoscopic procedures, endoscope introduced distal to duodenum; not otherwise specified NOTE: The code number assigned matches the documented diagnosis and / or procedure in the patient's chart. However, the narrative phrase printed from the coding software may appear abbreviated, or result in slightly different terminology. Coded By: Sary Little Date Saved: 05/01/2018 08:02 am Normal [facility] Coding Summary. CODING DATE: 018 FINAL [facility] STATUS: Home (Routine DC) PAYOR: Medicaid EAPG [...] PROC EAPG STAT DESCRIPTION DOCTOR NAME DATE 91249 0149 Colonoscopy, flexible; Colin Shirley MD 04/17/2018 with biopsy, single or multiple 74 Discontinued [facility] ([facility] Procedure After Administration of Anesthe 14372 Anesthesia for Colin Peñaloza MD 04/17/2018 intestinal endoscopic procedures, endoscope introduced distal to duodenum; not otherwise specified NOTE: The code number assigned matches the documented diagnosis and / or procedure in the patient's chart. However, the narrative phrase printed from the coding software may appear abbreviated, or result in slightly different terminology. Coded By: Sary Little Date Saved: 04/23/2018 11:46 am Normal [facility] Progress Note-Physicianon Progress Note-Physician Patient: RJ GONZALES [...] Cardiovascular: Regular rhythm. Neurologic: Alert, Oriented. Plan [place] Society of Anesthesiologists (ASA) physical status classification: Class II. Anesthetic Preoperative Plan Anesthesia: General. . Anesthetic plan, risks, benefits, and alternatives discussed with the patient and/or family. Communication: face to face with (patient 5 minutes, Patient educated on smoking cesstation). [facility] Comment on above: Result Comment: Elec tronically Signed By: Rusty Fagan DO, Quincy Gregory\.karen\Date and Time Signed: 04/28/18 08:15 EDT Main OR Intraoperative Recor don 04-20-2018 Main OR Intraoperative Record IntraOp Document Type FT Summary Primary Physician: Colin Shirley MD Finalized Date/Time: 04/20/18 09:38:35 Pt. Name: RJ GONZALESO.B./Sex: 2000 Male Med Rec #: [id number] Physician: Colin Shirley MD Financial #: [id number] Pt. Type: O Room/Bed: / Admit/Disch: 04/17/18 09:21:54 - 04/17/18 23:59:59 Institution: Case Times FT Entry 1 Patient Times In Room 04/17/18 13:14:00 Out Room 04/17/18 13:32:00 Procedure Times Start 04/17/18 13:18:00 Stop 04/17/18 13:29:00 Anesthesia Times Start 04/17/18 13:14:00 Stop 04/17/18 13:32:00 Last Modified By: Addie Oreilly CST 04/17/18 13:32:23 General Comments: 04/20/2018 Chart opened to review and send charges Marika Pineda COLOR GRINDER Case Attendance FT Entry 1 Entry 2 Entry 3 Case Attendee Casper GAUTAM, Colin Rene RN, Ashlee Boyd CST, Tori Role Performed Surgeon - Primary Supervisor Metalizing - Primary Scrub - Primary Time In 04/17/18 13:14:00 04/17/18 13:14:00 04/17/18 13:14:00 Time Out 04/17/18 13:32:00 04/17/18 13:32:00 04/17/18 13:32:00 Procedure COLONOSCOPY(.) COLONOSCOPY(.) COLONOSCOPY(.) Comments Last Modified By: Anju RN, Ashlee Rene RN, Ashlee Rene RN, Ashlee 04/17/18 13:32:29 04/17/18 13:32:29 04/17/18 13:32:29 Entry 4 Entry 5 Entry 6 Case Attendee [facility] Zenaida Palomares Carly C Tech, Amy C Role Performed Scrub - Other Scrub - Other Anesthesiologist Stereoplotter Operator Time In 04/17/18 13:14:00 04/17/18 13:14:00 04/17/18 [...] Brown CAA, Carly C, Rice CST, Molly, [facility] Magi Hammond Miles, Kirstyn K Time [...] and tissue Entry 1 Skin Integrity Intact, [place], Warm, and Skin Abnormality No Dry Outcomes [...] RN Patient Status Stable Skin. Condition Intact, [place], Warm, and Dry Airway Maintenance Oxygen in Use? No Airway Device N/A Outcomes Met? Yes Last Modified By: Ashlee Rene RN 04/17/18 07:23:58 Post-Care Text: The patient is free from signs and symptoms of injury related to transfer/transport General Comments: REPORT GIVEN TO REPORTS DEVELOPER/ AW career counselor Administration FT Pre-Care Text: Verifies allergies, administers prescribed medications and solutions, administers prescribed antibiotic therapy and immunizing agents as ordered, evaluates response to medications Administers prescribed medications and solutions Entry 1 Expiration Date Yes Outcomes Met? Yes Verified Last Modified By: Ashlee Rene RN 04/17/18 07:24:05 Post-Care Text: The patient received appropriate medication(s) safely administered during the perioperative period For [place] please see scanned medication reconcilliation form for medications used at the field during the procedure. Cultures and Specimens FT Pre-Care Text: Manages specimen handling and disposition Manages culture specimen collection Entry 1 Cultures Ordered n/a Specimens Ordered Yes Specimen Disposition Designated OR Area Frozen Section Times Outcomes Met? Yes Last Modified By: Ashlee Rnee RN 04/17/18 13:26:46 Post-Care Text: The patient is free from signs and symptoms of injury caused by extraneous objects The patient is free from signs and symptoms of infection Case Comments Finalized By: Addie Oreilly CST Document Signatures Signed By: Ashlee Rene RN 04/17/18 13:32 Addie Oreilly CST 04/20/18 09:38 Normal [facility] History and Physicalon 04-17 History and Physical Date: 03/10/2018 2:15 PMPatient Name: Rj GonzalesAccount #: [id number]: MaleDOB (age): 2000 (17)Provider: Annie Benton Complaint: Change in Bowel habits Blood in StoolHistory of Present Illness:17 years old -Israeli male with multiple psychiatric problems, lives in a care home, referred to me to be evaluatedfor rectal [...] stool incontinence, stomachPrinted on 04/10/2018 Rj Gonzales, 34025, 2000 Page 1 of 4Printed on 04/10/2018 Rj Gonzales, 56577, 1998cramps, straining. Denies abdominal pain, abdominal swelling, [...] up blood.Vital Signs:BP(mmHg)Pulse(ppm) Rhythm Weight (lbs/oz) Resp/min Ptbx536/68 82 Regular 191 / 12 98.3 (F)Physical [...] hemorrhageConstipationPl an: Colonoscopy will be performed at [facility] .Printed on 04/10/2018 Rj Gonzales, 80232, 2000 Page 2 of 4Printed on 04/10/2018 Rj Gonzales, 47229, 2000Risk & Medical Necessity: Diagnosis and management options are Extensive. The amount of data reviewedand/or ordered is Moderate. The level of risk is Moderate.Colin Shirley MD Rj Gonzales, 79670, 2000 Page 3 of 4Printed on 04/10/2018 Rj Gonzales, 64056, 1998Printed on 04/10/2018 [place], 2000 Page 4 of 4Printed on 04/10/2018 Rj Gonzales, 92227, 1998no change Normal [facility] Comment on above: Result Comment: Elec tronically Signed By: Colin Shirley MD\.br\Date and Time Signed: 04/17/18 13:15 EDT Inpatient Patient Summaryon 04-17-2018 Inpatient [facility] InstructionsPERSON INFORMATION Name: RJ GONZALES PHYSICIANS Admitting Physician: [facility] Physician: Colin Shirley MD PCP: Murphy WEISS MD Diagnosis: Rectal prolapse Comment: PATIENT EDUCATION INFORMATIONInstructions: Medication Leaflets:Follow up:With: Address: When: Colin Shirley [facility], [address] [place], [place] [address], [place] [address] [facility] (1) Within 1 to 2 weeks MEDICATION LISTComment: [facility] Main OR PACU I Recordon 03-28 Main OR PACU I Record PACU Phase I Document Type FT Summary Primary Physician: Colin Shirley MD Finalized Date/Time: 04/17/18 14:14:33 Pt. Name: RJ GONZALES /Sex: 2000 Male Med Rec #: [id number] Physician: Colin Shirley MD Financial #: [id number] Pt. Type: O Room/Bed: / Admit/Disch: 04/17/18 [...] Signed By: Essie Guzman RN 04/17/18 14:14 [facility] Main OR Preoperative Recordo n 04-17-2018 Main OR Preoperative Record Holding Area Document Type FT Summary Primary Physician: Colin Shirley MD Finalized Date/Time: 04/17/18 09:56:12 Pt. Name: RJ GONZALES /Sex: 2000 Male Med Rec #: [id number] Physician: Colin Shirley MD Financial #: [id number] Pt. Type: O Room/Bed: / Admit/Disch: 04/17/18 [...] By: Viki James RN 04/17/18 09:56 Normal [facility] Patient Education - Texton 0 04-17-2018 Patient Education - Text Normal [facility] Coding Summary.on 04-02-2018 Coding Summary. CODING DATE: 018 FINAL [facility] STATUS: Home (Routine DC) PAYOR: Medicaid EAPG [...] PROC EAPG STAT DESCRIPTION DOCTOR NAME DATE 76996 0133 Sigmoidoscopy, flexible; Colin Shirley MD 03/30/2018 with biopsy, single or multiple 74 Discontinued [facility] ([facility]) Procedure After Administration of Anesthe 07984 Anesthesia for lower Colin Shirley MD 03/30/2018 intestinal endoscopic procedures, endoscope introduced distal to duodenum; not otherwise specified NOTE: The code number assigned matches the documented diagnosis and / or procedure in the patient's chart. However, the narrative phrase printed from the coding software may appear abbreviated, or result in slightly different terminology. Coded By: Sary Little Date Saved: 04/02/2018 04:16 pm Normal [facility] Progress Note-Physicianon Progress Note-Physician Patient: RJ GONZALES [...] Cardiovascular: Regular rhythm. Neurologic: Alert, Oriented. Plan [place] Society of Anesthesiologists (ASA) physical status classification: Class II. Anesthetic Preoperative Plan Anesthesia: General. . Anesthetic plan, risks, benefits, and alternatives discussed with the patient and/or family. Communication: face to face with (patient 5 minutes, Patient educated on smoking cesstation). Normal [facility] Comment on above: Result Comment: Elec tronically Signed By: Quincy Ojeda Jr, DO\.br\Date and Time Signed: 04/01/18 07:53 EDT History and Physicalon 03-30 History and Physical Date: 03/10/2018 2:15 PMPatient Name: Rj GonzalesAccount #: [id number]: MaleDOB (age): 2000 (17)Provider: Annie Benton Complaint: Change in Bowel habits Blood in StoolHistory of Present Illness:17 years old -Israeli male with multiple psychiatric problems, lives in a care home, referred to me to be evaluatedfor rectal [...] stool incontinence, stomachPrinted on 03/26/2018 Rj Gonzales, 86237, 2000 Page 1 of 4Printed on 03/26/2018 Rj Gonzales 08215, 1998cramps, straining. Denies abdominal pain, abdominal swelling, [...] up blood.Vital Signs:BP(mmHg)Pulse(ppm) Rhythm Weight (lbs/oz) Resp/min Ohkn227/68 82 Regular 191 / 12 98.3 (F)Physical [...] hemorrhageConstipationPl an: Colonoscopy will be performed at [facility] .Printed on 03/26/2018 [place], 2000 Page 2 of 4Printed on 03/26/2018 Rj Gonzales, 57435, 2000Risk & Medical Necessity: Diagnosis and management options are Extensive. The amount of data reviewedand/or ordered is Moderate. The level of risk is Moderate.Colin Shirley MD Rj Gonzales, 46960, 2000 Page 3 of 4Printed on 03/26/2018 Rj Gonzales, 75586, 1998Printed on 03/26/2018 Rj Gonzales, 71574, 2000 Page 4 of 4Printed on 03/26/2018 Rj Gonzales, 33912, 1998No change Normal [facility] Comment on above: Result Comment: Elec tronically Signed By: Colin Shirley MD\.br\Date and Time Signed: 03/30/18 10:52 EDT Inpatient Patient Summaryon 03-30-2018 Inpatient Patient Summary [facility] Dis[facility] InstructionsPERSON INFORMATION Name: RJ GONZALES PHYSICIANS Admitting Physician: Debbi [facility] Physician: Colin Shirley MD PCP: Murphy WEISS MD Diagnosis: Internal hemorrhoids Comment: PATIENT EDUCATION INFORMATIONInstructions: Medication Leaflets:Follow up:With: Address: When: Colin Shirley [facility], [address] [place] [address] [facility] [place] [address] Business (1) Within 1 to 2 weeks MEDICATION LISTComment: Normal [facility] Main OR Intraoperative Recor don 03-30-2018 Main OR Intraoperative Record IntraOp Document Type FT Summary Primary Physician: Colin Shirley MD Finalized Date/Time: 03/30/18 11:37:17 Pt. Name: RJ GONZALES /Sex: 2000 Male Med Rec #: [id number] Physician: Colin Shirley MD Financial #: [id number] Pt. Type: O Room/Bed: / Admit/Disch: 03/30/18 09:32:43 - Institution: Case Times FT Entry 1 Patient Times In Room 03/30/18 10:56:00 Out Room 03/30/18 11:13:00 Procedure Times Start 03/30/18 10:59:00 Stop 03/30/18 11:09:00 Anesthesia Times Start 03/30/18 10:56:00 Stop 03/30/18 11:13:00 Last Modified By: Addie Oreilly CST 03/30/18 11:14:43 General Comments: 03/30/2018 Chart opened to review and send charges Marika Pineda COLOR GRINDER Case Attendance FT Entry 1 Entry 2 Entry 3 Case Attendee Rusty Fagan DO, Quincy Miller RN, Tori Capellan CST Role Performed Anesthesiologist of Supervisor Metalizing - Primary Scrub - Primary Record Time In 03/30/18 10:56:00 03/30/18 10:56:00 03/30/18 10:56:00 Time Out 03/30/18 11:13:00 03/30/18 11:13:00 03/30/18 11:13:00 Procedure COLONOSCOPY(.) COLONOSCOPY(.) COLONOSCOPY(.) Comments Last Modified By: Paul RN, Francy Miller RN, Francy Miller RN, Francy Gregory 03/30/18 11:14:48 03/30/18 11:14:48 03/30/18 11:14:48 Entry 4 Entry 5 Case Attendee Colin Shirley MD [employer] TeacherMagi Role Performed Surgeon - Primary Scrub - [...] Participants Francy Miller RN, Colin Shirley MD [facility], Oliver Bess CST, Tori Time Out Complete [...] and tissue Entry 1 Skin Integrity Intact, [place], Warm, and Skin Abnormality No Dry Outcomes [...] RN Patient Status Stable Skin. Condition Intact, [place], Warm, and Dry Airway Maintenance Oxygen in Use? No Airway Device N/A Outcomes Met? Yes Last Modified By: Francy Miller RN 03/30/18 07:37:17 Post-Care Text: The patient is free from signs and symptoms of injury related to transfer/transport General Comments: Report given to PACU,RN./TE,career counselor Administration FT Pre-Care Text: Verifies allergies, administers prescribed medications and solutions, administers prescribed antibiotic therapy and immunizing agents as ordered, evaluates response to medications Administers prescribed medications and solutions Entry 1 Expiration Date Yes Outcomes Met? Yes Verified Last Modified By: Francy Miller RN 03/30/18 07:37:26 Post-Care Text: The patient received appropriate medication(s) safely administered during the perioperative period For [facility] please see scanned medication reconcilliation form [...] 03/30/18 11:14 Addie Oreilly CST 03/30/18 11:37 [facility] Main OR PACU I Recordon Main OR PACU I Record PACU Phase I Document Type FT Summary Primary Physician: Colin Shirley MD Finalized Date/Time: 03/30/18 11:29:28 Pt. Name: RJ GONZALES /Sex: 2000 Male Med Rec #: [id number] Physician: Colin Shirley MD Financial #: [id number] Pt. Type: O Room/Bed: / Admit/Disch: 03/30/18 [...] By: Essie Guzman RN 03/30/18 11:29 Normal [facility] Main OR Preoperative Recordo n 03-30-2018 Main OR Preoperative Record Holding Area Document Type FT Summary Primary Physician: Colin Shirley MD Finalized Date/Time: 03/30/18 10:16:59 Pt. Name: RJ GONZALES /Sex: 2000 Male Med Rec #: [id number] Physician: Colin Shirley MD Financial #: [id number] Pt. Type: O Room/Bed: / Admit/Disch: 03/30/18 [...] By: Kathleen Gómez RN 03/30/18 10:16 Normal [facility] Patient Education - Texton 0 03-30-2018 Patient Education - Text [facility] Progress Note-Physicianon Progress Note-Physician Patient: RJ GONZALES [...] vomiting. Plan Transfer/ Discharge: Condition stable. Normal [facility] Comment on above: Result Comment: Elec tronically Signed By: Quincy Ojeda Jr, DO\.karen\Date and Time Signed: 03/30/18 11:55 EDT Vital Signs Date Time Vital Sign Value Performing Clinician Pauline mustafa 03-28-2022 11:11-0400 Body height 180.3 cm Arnold Germain MD Work Phone: [facility] 03-28-2022 11:11-0400 Body weight 90.27 kg Arnold Germain MD Work Phone: [facility] 03-28-2022 11:11-0400 Diastolic blood pressure 65 mm[Hg] Arnold Germain MD Work Phone: [facility] 03-28-2022 11:11-0400 Heart rate 80 /min Arnold Germain MD Work Phone: [facility] 03-28-2022 11:11-0400 SaO2% (BldA) [Mass fraction] 100 % Arnold Geramin MD Work Phone: [facility] 03-28-2022 11:11-0400 Systolic blood pressure 108 mm[Hg] Arnold Germain MD Work Phone: [facility] Encounters Encounter Date Encounter Type Care Provider Facility Start: 09-04-2023 ambulatory Jean Carlos Boudreaux acility:[facility] Start: 03-26-[address] DOCTOR MISC [...] y Dx) Start: 04-17-2018 End: 04-18-2018 Ambulatory [facility] Facility:[facility] Start: 03-30-2018 End: 03-31-2018 Ambulatory [facility] Facility:[facility] Plan of Treatment Date Care Activity Detail Author Start: 2017 Urine microalbumin profile DTAP,TDAP ,TD (1 - Tdap) [facility] Start: 2016 HEPATITIS C SCREENING HEPATITIS C SC JORGE [facility] Start: 2016 HIV SCREENING HIV SCREENING [facility] Start: 2012 PEDS TO ADULT TRANSI TION ANNUAL ASSESSMENT PEDS TO ADULT TRANSITION ANNUAL ASSESSMENT [facility] Start: 2010 Adult depression scr eening assessment DEPRESSION SCREENING [facility] Start: 2010 PEDS TO ADULT TRANSI TION INITIAL DISCUSSION PEDS TO ADULT TRANSITION INITIAL DISCUSSION [facility] Start: 2009 HPV VACCINE (1 - Mal e 2-dose series) HPV VACCINE (1 - Male 2-dose series) [facility] Start: 2008 MENINGOCOCCAL 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 based 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 (1 of 2 - Risk Bexsero 2-dose series) MENINGOCOCCAL B: Consider based on risk (1 of 2 - Risk Bexsero 2-dose series) [facility] Payers Date Payer Category Payer Self-pay 2021 [place] [id number] 2021-Present [phone] [address] [place] [address] Medicaid [id number] 2018 Medicare MEDICARE MEDICAR E A AND B [id number] 2018-Present [phone] [address] [address] [place] [address] Medicare [id number] 1998 Unknown [id number] 1998 Unknown [id number] 1998 Unknown [id number] [id number] 1998 Unknown [id number] [id number] 1998 Unknown [id number] [id number] 1998 Unknown [id number] [id number] 1998 Unknown [id number] [id number] 1998 Unknown [id number] [id number] 1998 Unknown [id number] 2.16.840.1.840654.3.579.2.593 1998 Unknown [id number] [id number] 1998 Unknown [id number] [id number] 1998 Unknown [id number] 1959 Medicaid [id number] 1961 Medicare [id number] Social History Date Type Detail Facility Start: 03-01-2015 Tobacco smoking stat [facility] Never smoked tobacco [facility] Start: 03-01-2015 Tobacco use and exposure Smoke less tobacco non-user [facility] Start: 03-28-2022 Alcohol intake Current non-dr shrestha of alcohol (finding) [facility] Start: 1998 Sex Assigned At Not on file [facility] Start: 03-18-2022 End: 03-28-2022 Exposure to SARS-CoV-2 (event) Not sure [facility] Clinical Notes 06-29-2021 to 03-28-2022 Telephone [...] will speak with the nurse at the care home. Pharmacy, [facility], phone , any pharmacist to clarify about carbonate? CALM is care home able to order as food item? Please call to discuss. documented in this encounter [facility] 03-28-2022 Miscellaneous Notes Opened in error documented in this encounter [facility] 03-28-2022 Miscellaneous Notes Addended by: ARNOLD GERMAIN on: 03/28/2022 03:11 PM Modules accepted: Orders Addended by: CHARLEY MCCLELLAND on: 03/28/2022 02:47 PM Modules accepted: Orders documented in this encounter [facility] 03-28-2022 Note HNO ID: [id number] Author: Arnold Germain MD Service: ? Author [...] exam Anorectal: External exam reveals: see below Machine Attendant present: yes Assessment Assessment and Plan: Rj Gonzales is a 21 year old male with straining and occasional rectal bleeding. Today, we talked about adding a magnesium supplement CALM to his regimen to decrease straining. I am of the opinion that more surgery is not the best option at this time. Arnold Germain MD Colorectal Surgery [facility] 03-28-2022 Nurse Note Calm education given for constipation. What is the reason for your visit today? Established patient presents for hematochezia. Who is your referring physician? Are you having poor oral intake? NO Have you had unintentional weight loss of 15 lbs/7 Kg in the last 3-6 months? NO Bowels: regular Wound: None Temperature: No Drains: No documented in this encounter [facility] 03-28-2022 History of Presen t illness Narrative COLORECTAL SURGERY March 28, 2022 Rj Gonzales 21 year old Chief Complaint: hematochezia History of Present Illness: Rj Gonzales is a 21 year old male presents to the office for evaluation of hematochezia. Last seen in the office on 11/16/21 with Cristal Suarez MONOTYPE MECHANIC for follow up visit after he underwent [...] exam Anorectal: External exam reveals: see below Machine Attendant present: yes Assessment Assessment and Plan: Rj Gonzales is a 21 year old male with straining and occasional rectal bleeding. Today, we talked about adding a magnesium supplement CALM to his regimen to decrease straining. I am of the opinion that more surgery is not the best option at this time. Arnold Germain MD Colorectal Surgery documented in this encounter [facility] 11-16-2021 Note HNO ID: [id number] Author: Cristal Suarez APRN.CONSULTING DATABASE ADMINISTRATOR Service: ? Author Type: Nurse Practitioner Type: [...] results with patient and POA. Cristal Suarez APRN.CONSULTING DATABASE ADMINISTRATOR Colorectal Surgery [facility] 10-17-2021 Note HNO ID: [id number] Author: Hunter Massey APRN.CRNA Service: Anesthesiology Author Type: Nurse Beading Machine Operator Type: Anesthesia Procedure Notes Filed: 10/17/2021 8:55 AM Note Text: ANESTHESIOLOGY PROCEDURE NOTE Airway General Information Procedure Start Time/Medication Administration: 10/17/2021 8:49 AM Patient location during procedure: OR Timeout Performed Pre-procedure: timeout performed Consent Obtained: Yes Patient identity confirmed: arm band, care call center team leader and patient Staffing Anesthesiologist: Michael Martínez MD BUFFERER: Hunter Massey APRN.BUFFERER Performed by: SAMAN Indications and Patient Condition [...] October 17, 2021 TIME: 8:54 AM CSN: [id number] [facility] 08-31-2021 Note HNO ID: [id number] Author: Arnold Germain MD Service: ? Author [...] Anorectal: External exam reveals : see below Machine Attendant present: yes Assessment Assessment and Plan: Rj Gonzales is a 21 year old male who is doing relatively well after his recent rubber band ligation. He still has some rectal bleeding and it is difficult to assess the exact amount. If the bleeding persists we will consider internal hemorrhoidectomy. Arnold Germain MD Colorectal Surgery [facility] 07-12-2021 Note HNO ID: [id number] Author: Shanthi Chapman APRN.BUFFERER Service: Anesthesiology Author Type: Nurse Beading Machine Operator Type: Anesthesia Procedure Notes Filed: 07/12/2021 10:54 AM Note Text: ANESTHESIOLOGY PROCEDURE NOTE Airway General Information Procedure Start Time/Medication Administration: 07/12/2021 10:48 AM Patient location during procedure: OR Patient identity confirmed: arm band, care call center team leader and patient Staffing BUFFERER: Shanthi Chapman APRN.BUFFERER Performed by: SAMAN Indications and Patient Condition [...] no Airway not difficult SIGNATURE: Shanthi Chapman APRN.BUFFERER PATIENT NAME: Rj Gonzales DATE: July 12, 2021 TIME: 10:53 AM CSN: [id number] [facility] 06-29-2021 Note HNO ID: [id number] Author: Arnold Germain MD Service: ? 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 They relate that he is having around [...] (222 lb 4.8 oz) BMI 31.90 kg/m? Machine Attendant present: Yes Rj Gonzales is a 21 year old male presents with complaint of rectal bleeding with prolapsing Grade 3 internal hemorrhoids on exam. Our plan is to perform an EUA and rubber band ligation of internal hemorrhoids at the [facility]. Medical Decision Making: Arnold Germain MD Colorectal Surgery [facility] Evaluation note Diagnosis Hematochezia- Primary Blood in stool documented in this encounter [facility] Summary Purpose Family History No Family History Records FoundNo Family History Records FoundNo Family History Records FoundNo Family History Records FoundNo Family History Records Found Advance Directives No Advanced Directives Records FoundDocuments on File Type Date Recorded Patient Toe Former [employer] Expl anation Advance Directive(s) 07/09/2021 9:04 AM Additional Source Comments (unrecognized sect ion and content) No Status Records FoundNo Status Records FoundNo Status Records FoundNo Status Records FoundNo Status Records Found INFORMATION SOURCE (unrecogn ized section and content) DATE CREATED AUTHOR 05/01/2018 [facility] DATE CREATED AUTHOR AUTHOR'S ORGANIZ ATION 10/31/2021 [facility] DATE CREATED AUTHOR AUTHOR'S ORGANIZ ATION 03/29/2022 [facility] DATE CREATED AUTHOR AUTHOR'S ORGANIZ ATION 04/04/2023 [facility] DATE CREATED AUTHOR AUTHOR'S ORGANIZ ATION 11/24/2023 [facility] Source Comments (unrecognize d section and content) In the event this informatio n is protected by the Federal Confidentiality of Alcohol and Drug Abuse Patient Records regulations: The Federal rules restrict any use of the information to criminally investigate or prosecute any alcohol or drug abuse patient.[facility] the event this information is protected by the Federal Confidentiality of Alcohol and Drug Abuse Patient Records regulations: The Federal rules restrict any use of the information to criminally investigate or prosecute any alcohol or drug abuse patient.[facility] the event this information is protected by the Federal Confidentiality of Alcohol and Drug Abuse Patient Records regulations: The Federal rules restrict any use of the information to criminally investigate or prosecute any alcohol or drug abuse patient.[facility] Reason for Visit (unrecogniz ed section [...] BE BASED ON THE PRIMARY CLINICAL RECORDS. [facility] provides no warranty or guarantee of the accuracy or completeness of information in this document.
[2023-12-26 15:57] LABS: Hematocrit 38.3 % (42.0-54.0); Mean Corpuscular HGB Conc 26.1 g/dL (29.9-35.2); Mean Corpuscular Hemoglobin 16.6 pg (25.9-34.0); Mean Corpuscular Volume 63.6 fL (80.0-94.0); Mean Platelet Volume 9.4 fL (9.5-13.5); Platelet Count 342 10^3/uL (150-450); Red Blood Count 6.02 10^6/uL (4.70-6.10); Red Cell Distribution Width 21.5 % (11.0-15.0); White Blood Count 5.4 10^3/uL (4.0-11.0)
[2023-12-26 17:08] LABS: Monocytes Absolute Manual 0.54 10^3/uL (0.30-0.80); Segmented Neut Absolute Manual 3.45 10^3/uL (1.4-6.5)
[2023-12-26 17:11] LABS: Anisocytosis 2+; Hypochromasia 2+; Microcytosis 2+; Ovalocytes 1+; Poikilocytosis 2+
== END 2023-12-26 15:40 | disposition home or self-care (01) ==
PROVIDERS: PCP Family Medicine
DX: Z79.899 Other long term (current) drug therapy (principal)
CPT/HCPCS: 36415; 85007; 85027

== ENCOUNTER 2024-01-23 11:03 | Outpatient (OUT) | payer MEDICARE, MEDICAID, SELFPAY ==
--- OUTSIDE RECORDS SUMMARY | 2024-01-23 11:15 | XMS_ITS | CCD ---
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 Name Role Phone Salam, Shaw Unavailable Unavailable Salam, Shaw Unavailable Unavailable Salam, Shaw Unavailable Unavailable NADERER ANGEL~[phone] UNKNOWN Unavailable Unavailable Salam, Shaw Unavailable Unavailable Salam, Shaw Unavailable Unavailable Salam, Shaw Unavailable Unavailable NADERER, ANGEL~[phone] UNKNOWN Unavailable Unavailable Unavailable Primary Care Provider Unavailabl e MISC, DR DOCTOR Attending Unavailable MISC, DR DOCTOR Admitting Unavailable MISC, DOCTOR Consulting Unavailable NADERER, DR ORTIZ A Primary Care Unavailable MISC, DOCTOR Consulting Unavailable MISC, DOCTOR Attending Unavailable NADERER, DR ORTIZ A Primary Care Unavailable MISC, DOCTOR Admitting Unavailable MISC, DOCTOR Attending Unavailable MISC, DOCTOR Admitting Unavailable MISC, DR VALDOVINOS Consulting Unavailable NADERER, DR ANGEL Gregory Primary Care Unavailable MISC, DOCTOR Attending Unavailable MISC, DOCTOR Admitting Unavailable MISC, DOCTOR Consulting Unavailable NADERERoxana, DR ANGEL Gregory Primary Care Unavailable MISC, DOCTOR Attending Unavailable MISC, DOCTOR Admitting Unavailable MISC, DOCTOR Consulting Unavailable NADERER, DR ORTIZ A Primary Care Unavailable MISC, DOCTOR Consulting Unavailable NADERER, DR ANGEL Gregory Primary Care Unavailable MISC, DOCTOR Admitting Unavailable MISC, DOCTOR Attending Unavailable MISC, DOCTOR Consulting Unavailable NADERER, DR ANGEL Gregory Attending Unavailable NADERER, DR ANGEL Gregory Admitting Unavailable NADERER, DR ANGEL Gregory Primary Care Unavailable MISC, DOCTOR Consulting Unavailable NADERERoxana, DR ANGEL Gregory Primary Care Unavailable MISC, DOCTOR Admitting Unavailable MISC, DR DOCTOR Attending Unavailable MISC, DR DOCTOR Consulting Unavailable NADERER, DR ANGEL Gregory Attending Unavailable NADERER, DR ANGEL Gregory Admitting Unavailable NADERER, DR ANGEL Gregory Primary Care Unavailable MISC, DR VALDOVINOS Consulting Unavailable NADERERoxana, DR ANGEL Gregory Attending Unavailable NADERER, DR ANGEL Gregory Admitting Unavailable NADERER, DR ANGEL Gregory Primary Care Unavailable MISC, DR VALDOVINOS Consulting Unavailable NADERER, DR ANGEL Gregory Primary Care Unavailable MISC, DOCTOR Admitting Unavailable MISC, DOCTOR Attending Unavailable MISC, DOCTOR Attending Unavailable MISC, DOCTOR Admitting Unavailable MISC, DR VALDOVINOS Consulting Unavailable NADERER, DR ANGEL Gregory Primary Care Unavailable Ketty, Jean Carlos Attending Unavailab le Ketty, Jean Carlos Admitting Unavailab le NO FAMILY, PHYSICIAN Primary Care Unavailable NADMALIHA, ANGEL Attending Unavailable NADERERoxana, ANGEL Primary Care Unavailable ZOË POOL Attending Unavailable NADERER, ANGEL Primary Care Unavailable TABITHA MERINO Attending Unavailable DARLINGPUSHPA Knight Admitting Unavailable PAUL, JOHN DEL ROSARIO Attending Unavailable NADERER, ANGEL Primary Care Unavailable Allergies Allergy Classification Reported Allergen(s) Allergy Type Date of Onset Reaction(s) Facility (1 source) No Known Medication Allergies; Translations: [No Known Medication Allergies] Propensity to adverse reactions (disorder) [facility] Medications Current Medications Medication Drug Class(es) [...] on above: Take 2 tablets by [facility] every 6 hours. benztropine mesylate 2 mg [...] on above: Take 2 tablets by [facility] every 4 hours as needed for pain. loratadine 10 mg oral tablet (3 sources) loratadine (CLARITIN) 10 mg tablet Take 10 mg by mouth. 0 Active Comment on above: Take 10 mg by mouth. polyethylene glycol 3350 10798 mg powder for oral solution (3 sources) Osmotic Laxative Start: 06-02-2018 take 1 dose by mouth once daily polyethylene glycol 3350 (MIRALAX) 17 gram packet Indications: Rectal ulcer Take 1 Packet by mouth once daily. 30 Packet 5 06/02/2018 Active Comment on above: Take 1 Packet by claribel once daily. risperiDONE 1 mg oral tablet (3 sources) Atypical Antipsychotic risperiDONE (RISPERDAL) 1 mg tablet Take 1 mg by mouth. 0 Active Comment on above: Take 1 mg by mouth. Problems Active Problems Problem Classification Problem Date Documented Da te Episodic/Chronic Anal and rectal conditions (4 sources) Rectal prolapse; Translations: [Rectal pain] Onset: 01-08-2024 Episodic Gastrointestinal hemorrhage (1 source) Blood-tinged feces; Translations: [Melena] Episodic Other aftercare (4 sources) Other residential (current) drug therapy; Translations: [OTH [facility] CURRENT DRUG THERAPY] Onset: 02-19-2023 Episodic Schizophrenia and other psychotic disorders (3 sources) Schizophrenia; Translations: [Schizophrenia, unspecified] Onset: 07-10-2021 07-10-2021 Chronic Unclassified (1 source) Bowel Issue Onset: 01-08-2024 Unclassified (1 source) Medical Problem Onset: 01-09-2024 Unclassified (1 source) [place] transfer Onset: 01-09-2024 Past or Other Problems Problem Classification Problem Date Documented Date Episodic/Chronic Hemorrhoids (3 sources) Hemorrhoids; Translations: [Unspecified hemorrhoids] Onset: 10-17-2021 10-17-2021 Episodic Other nutritional; endocrine; and metabolic disorders (3 sources) Developmental delay; Translations: [Unspecified lack of expected normal physiological development in childhood] Onset: 07-10-2021 07-10-2021 Episodic Results Test Name Value Interpretation Reference Range Facility BASIC METABOLIC PANLon 01-09 Anion gap [Moles/Vol] 8 mmol/L Normal 5-15 [facility] Comment on above: Performed By: #### C ANDRES BRYANT, 49004-1 #### [facility] ([id number]) [address] [place] [address] Calcium [Mass/Vol] 8.5 mg/dL Normal 8.5-10.5 [facility] Comment on above: Performed By: #### C ANDRES BRYANT, 72161-8 #### [facility] ([id number]) [address] [place] [address] Chloride [Moles/Vol] 106 mmol/L Normal 98-109 [facility] Comment on above: Performed By: #### C MANNY [facility], #### [facility] ([id number]) [address], [address] [place] [address] CO2 [Moles/Vol] 28 mmol/L Normal 22-32 [facility] Comment on above: Performed By: #### C MANNY [facility], #### [facility] ([id number]) [address], [address] [place] [address] Creatinine [Mass/Vol] 0.93 mg/dL Normal 0.60-1.30 [facility] Comment on above: Result Comment: METH OD TRACEABLE TO IDMS STANDARD Performed By: #### C ANDRES BRYANT, #### [facility] ([id number]) [address], [address] [place] [address] eGFR (CKD-EPI) NON-RACE DEPENDENT >90 Normal >59 [facility] Comment on above: Result Comment: Reported eGFR is based on the CKD-EPI 2020 equation that does not use a race coefficient. Performed By: #### C ANDRES BRYANT, #### [facility] ([id number]) [address], [address] [place] [address] Glucose [Mass/Vol] 87 mg/dL Normal 65-99 [facility] Comment on above: Performed By: #### C ANDRES BRYANT, #### [facility] ([id number]) [address], [address] [place] [address] Potassium [Moles/Vol] 3.9 mmol/L Normal 3.5-5.0 [facility] Comment on above: Performed By: #### C ANDRES BRYANT, #### [facility] ([id number]) [address], [address] [place] [address] Sodium [Moles/Vol] 142 mmol/L Normal 134-146 [facility] Comment on above: Performed By: #### C ANDRES BRYANT, #### [facility] ([id number]) [address], [address] [place] [address] Urea nitrogen [Mass/Vol] 13 mg/dL Normal 5-23 [facility] Comment on above: Performed By: #### C ANDRES BRYANT, #### [facility] ([id number]) [address], [address] [place] [address] CBC AND AUTO DIFFon 01-10-20 24 ABSOLUTE BASOPHIL 0.0 X10E9/L Normal 0.0-0.2 [facility] Comment on above: Performed By: #### C ANDRES BRYANT, #### [facility] ([id number]) [address], [address] [place] [address] ABSOLUTE NEUTROPHIL 7.9 X10E9/L High 1.5-6.6 [facility] Comment on above: Performed By: #### Brigitte BRYANT BMP, #### [facility] ([id number]) [address], [address] [place] [address] Basophils/100 WBC (Bld) 0.2 % Normal [facility] Comment on above: Performed By: #### ANDRES Briggs BCA, #### [facility] ([id number]) [address], [address] [place] [address] Eosinophils (Bld) [#/Vol] 0.0 10*3/uL Normal 0.0-0.4 [facility] Comment on above: Performed By: #### C MANNY BMP, #### [facility] ([id number]) [address], [address] [place] [address] Eosinophils/100 WBC (Bld) 0.2 % Normal [facility] Comment on above: Performed By: #### Brigitte BRYANT BMP, #### [facility] ([id number]) [address], [address] [place] [address] Erythrocyte distribution width (RBC) [Ratio] 20.7 % High 11.5-15.0 [facility] Comment on above: Performed By: #### ANDRES Briggs BCA, #### [facility] ([id number]) [address], [address] [place] [address] FRAGMENT 1+ Abnormal NONE [facility] Comment on above: Performed By: #### ANDRES Briggs BCA, #### [facility] ([id number]) [address], [address] [place] [address] Hematocrit (Bld) [Volume fraction] 30.0 % Low 39-49 [facility] Comment on above: Performed By: #### ANDRES Briggs BCA, #### [facility] ([id number]) [address], [address] [place] [address] Hemoglobin (Bld) [Mass/Vol] 8.7 g/dL Low 13.0-17.0 [facility] Comment on above: Performed By: #### ANDRES Briggs BCA, #### [facility] ([id number]) [address], [address] [place] [address] HYPOCHROMIA 2+ Abnormal NONE [facility] Comment on above: Performed By: #### ANDRES Briggs BCA, #### [facility] ([id number]) [address], [address] [place] [address] Lymphocytes (Bld) [#/Vol] 2.6 10*3/uL Normal 1.0-3.5 [facility] Comment on above: Performed By: #### ANDRES Briggs BCA, #### [facility] ([id number]) [address], [address] [place] [address] Lymphocytes/100 WBC (Bld) 22.1 % Normal [facility] Comment on above: Performed By: #### C ANDRES BRYANT, #### [facility] ([id number]) [address], [address] [place] [address] MCH (RBC) [Entitic mass] 16.7 pg Low 27-34 [facility] Comment on above: Performed By: #### ANDRES Briggs BCA, #### [facility] ([id number]) [address], [address] [place] [address] MCHC (RBC) [Mass/Vol] 29.1 g/dL Low 32-36 [facility] Comment on above: Performed By: #### ANDRES Briggs BCA, #### [facility] ([id number]) [address], [address] [place] [address] MCV (RBC) [Entitic vol] 58 fL Low 80-100 [facility] Comment on above: Performed By: #### ANDRES Briggs BCA, #### [facility] ([id number]) [address], [address] [place] [address] Monocytes (Bld) [#/Vol] 1.3 10*3/uL High 0-0.9 [facility] Comment on above: Performed By: #### ANDRES Briggs BCA, #### [facility] ([id number]) [address], [address] [place] [address] Monocytes/100 WBC (Bld) 11.2 % Normal [facility] Comment on above: Performed By: #### ANDRES Briggs BCA, #### [facility] ([id number]) [address], [address] [place] [address] Neutrophils/100 WBC (Bld) 66.3 % Normal [facility] Comment on above: Performed By: #### ANDRES Briggs BCA, #### [facility] ([id number]) [address], [address] [place] [address] OVALOCYTE 2+ Abnormal NONE [facility] Comment on above: Performed By: #### C ANDRES BRYANT, #### [facility] ([id number]) [address], [address] [place] [address] Platelet mean volume (Bld) [Entitic vol] 8.7 fL Normal 7-12 [facility] Comment on above: Performed By: #### C ANDRES BRYANT, #### [facility] ([id number]) [address], [address] [place] [address] Platelets (Bld) [#/Vol] 326 10*3/uL Normal 150-450 [facility] Comment on above: Performed By: #### ANDRES Briggs BCA, #### [facility] ([id number]) [address], [address] [place] [address] RBC COUNT 5.21 X10E12/L Normal 4.10-5.70 [facility] Comment on above: Performed By: #### ANDRES Briggs BCA, #### [facility] ([id number]) [address], [address] [place] [address] WBC (Bld) [#/Vol] 11.9 10*3/uL High 4.0-11.0 [facility] Comment on above: Performed By: #### ANDRES Briggs BCA, #### [facility] ([id number]) [address], [address] [place] [address] MAGNESIUMon 01-10-2024 Magnesium [Mass/Vol] 2.0 mg/dL Normal 1.8-2.6 [facility] Comment on above: Performed By: #### ANDRES Briggs BCA, #### [facility] ([id number]) [address], [address] [place] [address] BASIC METABOLIC PANLon 01-08 Anion gap [Moles/Vol] 9 mmol/L Normal 5-15 [facility] Comment on above: Performed By: #### C MANNY BMP, #### [facility] ([id number]) [address], [address] [place] [address] Calcium [Mass/Vol] 8.8 mg/dL Normal 8.5-10.5 [facility] Comment on above: Performed By: #### C MANNY BMP, #### [facility] ([id number]) [address], [address] [place] [address] Chloride [Moles/Vol] 107 mmol/L Normal 98-109 [facility] Comment on above: Performed By: #### C MANNY BMP, #### [facility] ([id number]) [address], [address] [place] [address] CO2 [Moles/Vol] 25 mmol/L Normal 22-32 [facility] Comment on above: Performed By: #### C MANNY BMP, #### [facility] ([id number]) [address] [facility] [address] [place] [address] Creatinine [Mass/Vol] 0.96 mg/dL Normal 0.60-1.30 [facility] Comment on above: Result Comment: METH OD TRACEABLE TO IDMS STANDARD Performed By: #### C MANNY, BMP, #### [facility] ([id number]) [address] [address] [place] [address] eGFR (CKD-EPI) NON-RACE DEPENDENT >90 Normal >59 [facility] Comment on above: Result Comment: Reported eGFR is based on the CKD-EPI 2020 equation that does not use a race coefficient. Performed By: #### C MANNY BMP, #### [facility] ([id number]) [address], [address] [place] [address] Glucose [Mass/Vol] 117 mg/dL High 65-99 [facility] Comment on above: Performed By: #### C MANNY [facility], #### [facility] ([id number]) [address], [address] [place] [address] Potassium [Moles/Vol] 4.5 mmol/L Normal 3.5-5.0 [facility] Comment on above: Performed By: #### C MANNY [facility], #### [facility] ([id number]) [address], [address] [place] [address] Sodium [Moles/Vol] 141 mmol/L Normal 134-146 [facility] Comment on above: Performed By: #### Brigitte BRYANT [facility], #### [facility] ([id number]) [address], [address] [place] [address] Urea nitrogen [Mass/Vol] 19 mg/dL Normal 5-23 [facility] Comment on above: Performed By: #### Brigitte BRYANT [facility], #### [facility] ([id number]) [address], [address] [place] [address] CBC AND AUTO DIFFon 01-09-20 24 ACANTHOCYTE 2+ Abnormal NONE [facility] Comment on above: Performed By: #### C MANNY [facility], #### [facility] ([id number]) [address], [address] [place] [address] Erythrocyte distribution width (RBC) [Ratio] 21.0 % High 11.5-15.0 [facility] Comment on above: Performed By: #### ANDRES Briggs BCA, #### [facility] ([id number]) [address], [address] [place] [address] FRAGMENT 1+ Abnormal NONE [facility] Comment on above: Performed By: #### C ANDRES BRYANT, #### [facility] ([id number]) [address], [address] [place] [address] Hematocrit (Bld) [Volume fraction] 32.9 % Low 39-49 [facility] Comment on above: Performed By: #### ANDRES Briggs BCA, #### [facility] ([id number]) [address], [facility] [address] [place] [address] Hemoglobin (Bld) [Mass/Vol] 9.4 g/dL Low 13.0-17.0 [facility] Comment on above: Performed By: #### ANDRES Briggs BCA, #### [facility] ([id number]) [address], [facility] [address] [place] [address] HYPOCHROMIA 2+ Abnormal NONE [facility] Comment on above: Performed By: #### ANDRES Briggs BCA, #### [facility] ([id number]) [address], [facility] [address] [place] [address] Lymphocytes (Bld) [#/Vol] 0.6 10*3/uL Low 1.0-3.5 [facility] Comment on above: Performed By: #### ANDRES Briggs BCA, #### [facility] ([id number]) [address], [facility] [address] [place] [address] Lymphocytes/100 WBC (Bld) 4.0 % Normal [facility] Comment on above: Performed By: #### ANDRES Briggs BCA, #### [facility] ([id number]) [address], [address] [place] [address] MCH (RBC) [Entitic mass] 16.4 pg Low 27-34 [facility] Comment on above: Performed By: #### C ANDRES BRYANT, #### [facility] ([id number]) [address], [address] [place] [address] MCHC (RBC) [Mass/Vol] 28.6 g/dL Low 32-36 [facility] Comment on above: Performed By: #### C MANNY BMP, #### [facility] ([id number]) [address], [address] [place] [address] MCV (RBC) [Entitic vol] 57 fL Low 80-100 [facility] Comment on above: Performed By: #### C MANNY BMP, #### [facility] ([id number]) [address], [address] [place] [address] Monocytes (Bld) [#/Vol] 0.5 10*3/uL Normal 0-0.9 [facility] Comment on above: Performed By: #### Brigitte BRYANT BMP, #### [facility] ([id number]) [address], [address] [place] [address] Monocytes/100 WBC (Bld) 3.0 % Normal [facility] Comment on above: Performed By: #### Brigitte BRYANT BMP, #### [facility] ([id number]) [address], [address] [place] [address] Neutrophils (Bld) [#/Vol] 14.5 10*3/uL High 1.5-6.6 [facility] Comment on above: Performed By: #### Brigitte BRYANT, BMP, #### [facility] ([id number]) [address], [address] [place] [address] OVALOCYTE 2+ Abnormal NONE [facility] Comment on above: Performed By: #### Brigitte BRYANT, BMP, #### [facility] ([id number]) [address], [address] [place] [address] Platelet mean volume (Bld) [Entitic vol] 8.7 fL Normal 7-12 [facility] Comment on above: Performed By: #### ANDRES Briggs BCA, #### [facility] ([id number]) [address], [address] [place] [address] Platelets (Bld) [#/Vol] 347 10*3/uL Normal 150-450 [facility] Comment on above: Performed By: #### ANDRES Briggs BCA, #### [facility] ([id number]) [address], [address] [place] [address] POLYCHROMASIA 1+ Abnormal NONE [facility] Comment on above: Performed By: #### ANDRES Briggs BCA, #### [facility] ([id number]) [address], [address] [place] [address] RBC COUNT 5.76 X10E12/L High 4.10-5.70 [facility] Comment on above: Performed By: #### ANDRES Briggs BCA, #### [facility] ([id number]) [address], [address] [place] [address] SEG NEUTROPHIL 93.0 % Normal [facility] Comment on above: Performed By: #### ANDRES Briggs BCA, #### [facility] ([id number]) [address] [place] [address] TEARDROP 1+ Abnormal NONE [facility] Comment on above: Performed By: #### ANDRES Briggs BCA, #### [facility] ([id number]) [address], [address] [place] [address] WBC (Bld) [#/Vol] 15.6 10*3/uL High 4.0-11.0 [facility] Comment on above: Performed By: #### Brigitte BRYANT BMP, 14682-8 #### [facility] ([id number]) [address] [place] [address], [address] [place] [address] MAGNESIUMon 01-09-2024 Magnesium [Mass/Vol] 2.0 mg/dL Normal 1.8-2.6 [facility] Comment on above: Performed By: #### C BCA, BMP, 84418-9 #### [facility] ([id number]) [address] [place] [address], [address] [place] [address] Surgical Pathologyon 024 Surgical Pathology Normal [facility] Comment on above: Result Comment: [facility] [address] [place] [address] Surgical Pathology Consultation Patient Name:SASCHA COLBERTMDOB:2000 (Age: 23)Gender:MTaken:01/09/2024eported:01/13/2024hysician(s):Pushpa Silva MD ([phone])Copy To: Rec. #:[id number]: #[id number] Final Pathologic Diagnosis Rectosigmoidectomy: Mucosal ischemic change with superficial mucosal necrosis, acute inflammation, hyalinization of lamina propria and atrophic crypts. Strands of smooth muscle extending into lamina propria with surface erosion compatible with prolapse changes. No malignancy identified. Report Electronically Signed Out ssi/01/13/2024Calvin Cortez M.D. Interpretation performed at [facility], [address] [place] [address], License number: [id number]. Clinical History Rectal prolapse, ischemic rectum. Gross Description Received in formalin labeled FILEMON, rectum, sigmoid is an unoriented prolapsed segment of colon, received opened at both ends. The specimen is received inverted with red-brown dull and dusky mucosa on the outer aspect. The specimen is then flipped upright to reveal pale pink serosa. The specimen is 22 cm in length ranging from 3 cm to 15 cm in diameter. The distal aspect of the specimen exhibits a rim of possible mcbride skin up to 0.1 cm in thickness. The 15 distal centimeters of mucosa is entirely red-brown dull and dusky however the proximal 7.5 cm exhibits glistening folded mucosa. The colon wall is 0.2 cm at the proximal aspect and up to 2.5 cm in thickness within the distal aspect. Within the thickest aspect, the wall is markedly edematous. No lesions or perforations are identified. Cassettes A-B perpendicular sections of distal margin C-E dull/dusky mucosa with adjacent smooth and glistening mucosa F perpendicular sections of proximal margin G edematous wall (7,ss,[id number], m1) /01/09/2024 Specimen(s) Received Rectum and sigmoid Fee Codes(s): 1; 67585 CBC AND AUTO DIFFon 01-08-20 24 ABSOLUTE BASOPHIL 0.1 X10E9/L Normal 0.0-0.2 [facility] Comment on above: Performed By: #### P INR, 57367-3, CMP, CBCA #### [facility] ([id number]) [address] [place] [address] ABSOLUTE NEUTROPHIL 14.8 X10E9/L High 1.5-6.6 [facility] Comment on above: Performed By: #### P INR, 90392-8, CMP, CBCA #### [facility] ([id number]) [address] [place] [address] Basophils/100 WBC (Bld) 0.3 % Normal [facility] Comment on above: Performed By: #### P INR, 28757-3, CMP, CBCA #### [facility] ([id number]) [address] [place] [address] Eosinophils (Bld) [#/Vol] 0.0 10*3/uL Normal 0.0-0.4 [facility] Comment on above: Performed By: #### P INR, 66073-0, CMP, CBCA #### [facility] [facility] ([id number]) [address] [place] [address] 62776 Eosinophils/100 WBC (Bld) 0.0 % Normal [facility] Comment on above: Performed By: #### P INR, 12221-9, CMP, CBCA #### [facility] ([id number]) [address] [place] [address] 27055 Erythrocyte distribution width (RBC) [Ratio] 20.9 % High 11.5-15.0 [facility] Comment on above: Performed By: #### P INR, 09984-9, CMP, CBCA #### [facility] ([id number]) [address] [place] [address] 68992 Hematocrit (Bld) [Volume fraction] 33.4 % Low 39-49 [facility] Comment on above: Performed By: #### P INR, 69337-9, CMP, CBCA #### [facility] ([id number]) [address] [place] [address] 11554 Hemoglobin (Bld) [Mass/Vol] 9.5 g/dL Low 13.0-17.0 [facility] Comment on above: Performed By: #### P INR, 59539-7, CMP, CBCA #### [facility] ([id number]) [address] [place] [address] 87086 Lymphocytes (Bld) [#/Vol] 0.4 10*3/uL Low 1.0-3.5 [facility] Comment on above: Performed By: #### P INR, 12493-0, CMP, CBCA #### [facility] ([id number]) [address] [place] [address] 25294 Lymphocytes/100 WBC (Bld) 2.6 % Normal [facility] Comment on above: Performed By: #### P INR, 01237-5, CMP, CBCA #### [facility] ([id number]) [address] [place] [address] 00602 MCH (RBC) [Entitic mass] 16.4 pg Low 27-34 [facility] Comment on above: Performed By: #### P INR, 21371-5, CMP, CBCA #### [facility] ([id number]) [address] [place] [address] 84597 MCHC (RBC) [Mass/Vol] 28.6 g/dL Low 32-36 [facility] Comment on above: Performed By: #### P INR, 33951-7, CMP, CBCA #### [facility] ([id number]) [address] [place] [address] 67720 MCV (RBC) [Entitic vol] 58 fL Low 80-100 [facility] Comment on above: Performed By: #### P INR, 99630-6, CMP, CBCA #### [facility] ([id number]) [address] [place] [address] 03453 Monocytes (Bld) [#/Vol] 1.4 10*3/uL High 0-0.9 [facility] Comment on above: Performed By: #### P INR, 65408-6, CMP, CBCA #### [facility] ([id number]) [address] [place] [address] 26990 Monocytes/100 WBC (Bld) 8.5 % Normal [facility] Comment on above: Performed By: #### P INR, 57174-7, CMP, CBCA #### [facility] ([id number]) [address] [place] [address] 72941 Neutrophils/100 WBC (Bld) 88.6 % Normal [facility] Comment on above: Performed By: #### P INR, 11129-6, CMP, CBCA #### [facility] ([id number]) [address] [place] [address] 11650 Platelet mean volume (Bld) [Entitic vol] 8.7 fL Normal 7-12 [facility] Comment on above: Performed By: #### P INR, 19849-0, CMP, CBCA #### [facility] ([id number]) [address] [place] [address] 49480 Platelets (Bld) [#/Vol] 366 10*3/uL Normal 150-450 [facility] Comment on above: Performed By: #### P INR, 95272-2, CMP, CBCA #### [facility] ([id number]) [address] [place] [address] 14151 RBC COUNT 5.81 X10E12/L High 4.10-5.70 [facility] Comment on above: Performed By: #### P INR, 96214-4, CMP, CBCA #### [facility] ([id number]) [address] [place] [address] 55247 WBC (Bld) [#/Vol] 16.7 10*3/uL High 4.0-11.0 [facility] Comment on above: Performed By: #### P INR, 24059-3, CMP, CBCA #### [facility] ([id number]) [address] [place] [address] 15900 COMPREHENSIVE METABOLIC PANE Angel 01-08-2024 Albumin [Mass/Vol] 4.3 g/dL Normal 3.2-5.3 [facility] Comment on above: Performed By: #### P INR, 77548-4, CMP, CBCA #### [facility] ([id number]) [address] [place] [address] 20541 ALP [Catalytic activity/Vol] 67 U/L Normal 39-130 [facility] Comment on above: Performed By: #### P INR, 04375-5, CMP, CBCA #### [facility] ([id number]) [address] [place] [address] 00887 ALT [Catalytic activity/Vol] 19 U/L Normal 0-40 [facility] Comment on above: Performed By: #### P INR, 48233-2, CMP, CBCA #### [facility] ([id number]) [address] [place] [address] 38733 Anion gap [Moles/Vol] 6 mmol/L Normal 5-15 [facility] Comment on above: Performed By: #### P INR, 28409-3, CMP, CBCA #### [facility] ([id number]) [address] [place] [address] 13438 AST [Catalytic activity/Vol] 26 U/L Normal 0-41 [facility] Comment on above: Performed By: #### P INR, 79524-1, CMP, CBCA #### [facility] ([id number]) [address] [place] [address] 00063 Bilirubin [Mass/Vol] 0.5 mg/dL Normal 0.3-1.2 [facility] Comment on above: Performed By: #### P INR, 98838-2, CMP, CBCA #### [facility] ([id number]) [address] [place] [address] 71136 Calcium [Mass/Vol] 8.8 mg/dL Normal 8.5-10.5 [facility] Comment on above: Performed By: #### P INR, 44596-8, CMP, CBCA #### [facility] ([id number]) [address] [place] [address] 96888 Chloride [Moles/Vol] 102 mmol/L Normal 98-109 [facility] Comment on above: Performed By: #### P INR, 36888-7, CMP, CBCA #### [facility] ([id number]) [address] [place] [address] 07082 CO2 [Moles/Vol] 23 mmol/L Normal 22-32 [facility] Comment on above: Performed By: #### P INR, 48151-2, CMP, CBCA #### [facility] ([id number]) [address] [place] [address] 00035 Creatinine [Mass/Vol] 1.03 mg/dL Normal 0.70-1.20 [facility] Comment on above: Result Comment: METH OD TRACEABLE TO IDMS STANDARD Performed By: #### P INR, 33663-7, CMP, CBCA #### [facility] ([id number]) [address] [place] [address] 98307 eGFR (CKD-EPI) NON-RACE DEPENDENT >90 Normal >59 [facility] Comment on above: Result Comment: Reported eGFR is based on the CKD-EPI 2020 equation that does not use a race coefficient. Performed By: #### P INR, 61410-8, CMP, CBCA #### [facility] ([id number]) [address] [place] [address] 61027 Glucose [Mass/Vol] 114 mg/dL High 65-99 [facility] Comment on above: Performed By: #### P INR, 85099-8, CMP, CBCA #### [facility] ([id number]) [address] [place] [address] 66022 Potassium [Moles/Vol] 4.0 mmol/L Normal 3.5-5.0 [facility] Comment on above: Performed By: #### P INR, 64975-7, CMP, CBCA #### [facility] ([id number]) [address] [place] [address] 81196 Protein [Mass/Vol] 6.9 g/dL Normal 6.0-8.0 [facility] Comment on above: Performed By: #### P INR, 88043-7, CMP, CBCA #### [facility] ([id number]) [address] [place] [address] 20804 Sodium [Moles/Vol] 131 mmol/L Low 134-146 [facility] Comment on above: Performed By: #### P INR, 97637-1, CMP, CBCA #### [facility] ([id number]) [address] [place] [address] 64871 Urea nitrogen [Mass/Vol] 17 mg/dL Normal 5-23 [facility] Comment on above: Performed By: #### P INR, 70508-9, CMP, CBCA #### [facility] ([id number]) [address] [place] [address] 09491 PROTIME AND INRon 01-08-2024 INR Coag (PPP) [Relative time] 1.0 {INR} Normal 0.8-1.1 [facility] Comment on above: Performed By: #### P INR, 80746-0, CMP, CBCA #### [facility] ([id number]) [address] [place] [address] 12104 PT Coag (PPP) [Time] 12.0 s Normal 9.8-13.2 [facility] Comment on above: Result Comment: NEW REFERENCE RANGE Performed By: #### P INR, 81449-3, CMP, CBCA #### [facility] ([id number]) [address] [place] [address] 43299 aPTT Coag (PPP) [Time]on aPTT Coag (Bld) [Time] 37 s Normal 26-37 [facility] Comment on above: Result Comment: NEW REFERENCE RANGE Performed By: #### P INR, 16246-3, CMP, CBCA #### [facility] ([id number]) [address] [place] [address] 91827 CBC AUTO DIFFon 03-26-2023 BASO # 0.0 103/ul Normal 0.0-0.1 [facility] Comment on above: Performed By: #### C BC #### [facility] [address] [place] [address] Dr. Sonido Bejarano Basophils/100 WBC (Bld) 0.7 % Normal 0.2-2.0 [facility] Comment on above: Performed By: #### C BC #### [facility] [address] [place] [address] Dr. Sonido Bejarano EO # 0.1 103/ul Normal 0.0-0.7 [facility] Comment on above: Performed By: #### C BC #### [facility] [address] [place] [address] Dr. Sonido Bejarano Eosinophils/100 WBC (Bld) 1.0 % Normal 0.9-7.0 [facility] Comment on above: Performed By: #### C BC #### [facility] [address] [place] [address] Dr. Sonido Bejarano Erythrocyte distribution width (RBC) [Ratio] 22.3 % Critically high 11.0-15.0 [facility] Comment on above: Performed By: #### C BC #### [facility] [address] [place] [address] Dr. Sonido Bejarano Hematocrit (Bld) [Volume fraction] 32.0 % Critically low 42.0-54.0 [facility] Comment on above: Performed By: #### C BC #### [facility] [address] [place] [address] Dr. Sonido Bejarano Hemoglobin (Bld) [Mass/Vol] 8.3 g/dL Critically low 14.0-18.0 [facility] Comment on above: Performed By: #### C BC #### [facility] [address] [place] [address] Dr. Sonido Bejarano IG # 0.01 10e3/ul Normal 0.00-0.03 [facility] Comment on above: Performed By: #### C BC #### [facility] [address] [place] [address] Dr. Sonido Bejarano IG % 0.2 % Normal 0.0-0.5 [facility] Comment on above: Performed By: #### C BC #### [facility] [address] [address] [address] Sonido Bejarano LYMPH # 1.2 103/ul Normal 1.2-3.8 [facility] Comment on above: Performed By: #### C BC #### [facility] [address] [place] [address] Dr. Sonido Bejarano Lymphocytes/100 WBC (Bld) 20.1 % Critically low 20.5-60.0 [facility] Comment on above: Performed By: #### C BC #### [facility] [address] [place] [address] Dr. Sonido Bejarano MANUAL DIFF REQ NO Normal [facility] Comment on above: Performed By: #### C BC #### [facility] [address] [place] [address] Dr. Sonido Bejarano MCH (RBC) [Entitic mass] 15.7 pg Critically low 25.9-34.0 [facility] Comment on above: Performed By: #### C BC #### [facility] [address] [place] [address] Dr. Sonido Bejarano MCHC (RBC) [Mass/Vol] 25.9 g/dL Critically low 29.9-35.2 [facility] Comment on above: Performed By: #### C BC #### [facility] [address] [place] [address] Dr. Sonido Bejarano MCV (RBC) [Entitic vol] 60.6 fL Critically low 80.0-94.0 [facility] Comment on above: Performed By: #### C BC #### [facility] [address] [place] [address] Dr. Sonido Bejarano MONO # 0.7 103/ul Normal 0.3-0.8 [facility] Comment on above: Performed By: #### C BC #### [facility] [address] [place] [address] Dr. Sonido Bejarano Monocytes/100 WBC (Bld) 12.2 % Critically high 1.7-12.0 [facility] Comment on above: Performed By: #### C BC #### [facility] [address] [place] [address] Dr. Sonido Bejarano NEUT # 3.8 103/ul Normal 1.4-6.5 [facility] Comment on above: Performed By: #### C BC #### [facility] [address] [place] [address] Dr. Sonido Bejarano Neutrophils/100 WBC (Bld) 65.8 % Normal 43.0-75.0 [facility] Comment on above: Performed By: #### C BC #### [facility] [address] [place] [address] Dr. Sonido Bejarano Platelet mean volume (Bld) [Entitic vol] 9.2 fL Critically low 9.5-13.5 [facility] Comment on above: Performed By: #### C BC #### [facility] [address] [place] [address] Dr. Sonido Bejarano PLT 369 103/ul Normal 150-450 [facility] Comment on above: Performed By: #### C BC #### [facility] [address] [place] [address] Dr. Sonido Bejarano RBC 5.28 106/ul Normal 4.70-6.10 [facility] Comment on above: Performed By: #### C BC #### [facility] [address] [place] [address] Dr. Sonido Bejarano WBC 5.8 103/ul Normal 4.0-11.0 [facility] Comment on above: Performed By: #### C BC #### [facility] [address] [place] [address] Dr. Sonido Bejarano CBC AUTO DIFFon 02-19-2023 BASO # 0.0 103/ul Normal 0.0-0.1 [facility] Comment on above: Performed By: #### C BC #### [facility] [address] [place] [address] Dr. Sonido Bejarano Basophils/100 WBC (Bld) 0.7 % Normal 0.2-2.0 [facility] Comment on above: Performed By: #### C BC #### [facility] [address] [place] [address] Dr. Sonido Bejarano EO # 0.1 103/ul Normal 0.0-0.7 [facility] Comment on above: Performed By: #### C BC #### [facility] [address] [place] [address] Dr. Sonido Bejarano Eosinophils/100 WBC (Bld) 1.1 % Normal 0.9-7.0 [facility] Comment on above: Performed By: #### C BC #### [facility] [address] [place] [address] Dr. Sonido Bejarano Erythrocyte distribution width (RBC) [Ratio] 22.7 % Critically high 11.0-15.0 [facility] Comment on above: Performed By: #### C BC #### [facility] [address] [place] [address] Dr. Sonido Bejarano Hematocrit (Bld) [Volume fraction] 32.9 % Critically low 42.0-54.0 [facility] Comment on above: Performed By: #### C BC #### [facility] [address] [place] [address] Dr. Sonido Bejarano Hemoglobin (Bld) [Mass/Vol] 8.2 g/dL Critically low 14.0-18.0 [facility] Comment on above: Performed By: #### C BC #### [facility] [address] [place] [address] Dr. Sonido Bejarano IG # 0.02 10e3/ul Normal 0.00-0.03 [facility] Comment on above: Performed By: #### C BC #### [facility] [address] [place] [address] Dr. Sonido Bejarano IG % 0.3 % Normal 0.0-0.5 [facility] Comment on above: Performed By: #### C BC #### [facility] [address] [place] [address] Dr. Sonido Bejarano LYMPH # 1.4 103/ul Normal 1.2-3.8 [facility] Comment on above: Performed By: #### C BC #### [facility] [address] [place] [address] Dr. Sonido Bejarano Lymphocytes/100 WBC (Bld) 22.8 % Normal 20.5-60.0 [facility] Comment on above: Performed By: #### C BC #### [facility] [address] [place] [address] Dr. Sonido Bejarano MANUAL DIFF REQ NO Normal [facility] Comment on above: Performed By: #### C BC #### [facility] [address] [place] [address] Dr. Sonido Bejarano MCH (RBC) [Entitic mass] 15.3 pg Critically low 25.9-34.0 [facility] Comment on above: Performed By: #### C BC #### [facility] [address] [place] [address] Dr. Sonido Bejarano MCHC (RBC) [Mass/Vol] 24.9 g/dL Critically low 29.9-35.2 [facility] Comment on above: Performed By: #### C BC #### [facility] [address] [place] [address] Dr. Sonido Bejarano MCV (RBC) [Entitic vol] 61.3 fL Critically low 80.0-94.0 [facility] Comment on above: Performed By: #### C BC #### [facility] [address] [place] [address] Dr. Sonido Bejarano MONO # 0.7 103/ul Normal 0.3-0.8 [facility] Comment on above: Performed By: #### C BC #### [facility] [address] [place] [address] Dr. Sonido Bejarano Monocytes/100 WBC (Bld) 11.6 % Normal 1.7-12.0 [facility] Comment on above: Performed By: #### C BC #### [facility] [address] [place] [address] Dr. Sonido Bejarano NEUT # 3.9 103/ul Normal 1.4-6.5 [facility] Comment on above: Performed By: #### C BC #### [facility] [address] [place] [address] Dr. Sonido Bejarano Neutrophils/100 WBC (Bld) 63.5 % Normal 43.0-75.0 [facility] Comment on above: Performed By: #### C BC #### [facility] [address] [place] [address] Dr. Sonido Bejarano Platelet mean volume (Bld) [Entitic vol] 9.3 fL Critically low 9.5-13.5 [facility] Comment on above: Performed By: #### C BC #### [facility] [address] [place] [address] Dr. Sonido Bejarano PLT 394 103/ul Normal 150-450 [facility] Comment on above: Performed By: #### C BC #### [facility] [address] [place] [address] Dr. Sonido Bejarano RBC 5.37 106/ul Normal 4.70-6.10 [facility] Comment on above: Performed By: #### C BC #### [facility] [address] [place] [address] Dr. Sonido Bejarano WBC 6.1 103/ul Normal 4.0-11.0 [facility] Comment on above: Performed By: #### C BC #### [facility] [address] [place] [address] Dr. Sonido Bejarano CBC AUTO DIFFon 01-15-2023 BASO # 0.0 103/ul Normal 0.0-0.1 [facility] Comment on above: Performed By: #### C BC #### [facility] [address] [place] [address] Dr. Sonido Bejarano Basophils/100 WBC (Bld) 0.3 % Normal 0.2-2.0 [facility] Comment on above: Performed By: #### C BC #### [facility] [address] [place] [address] Dr. Sonido Bejarano EO # 0.0 103/ul Normal 0.0-0.7 [facility] Comment on above: Performed By: #### C BC #### [facility] [address] [place] [address] Dr. Sonido Bejarano Eosinophils/100 WBC (Bld) 0.4 % Critically low 0.9-7.0 [facility] Comment on above: Performed By: #### C BC #### [facility] [address] [place] [address] Dr. Sonido Bejarano Erythrocyte distribution width (RBC) [Ratio] 22.4 % Critically high 11.0-15.0 [facility] Comment on above: Performed By: #### C BC #### [facility] [address] [place] [address] Dr. Sonido Bejarano Hematocrit (Bld) [Volume fraction] 31.5 % Critically low 42.0-54.0 [facility] Comment on above: Performed By: #### C BC #### [facility] [address] [place] [address] Dr. Sonido Bejarano Hemoglobin (Bld) [Mass/Vol] 8.1 g/dL Critically low 14.0-18.0 [facility] Comment on above: Performed By: #### C BC #### [facility] [address] [place] [address] Dr. Sonido Bejarano IG # 0.02 10e3/ul Normal 0.00-0.03 [facility] Comment on above: Performed By: #### C BC #### [facility] [address] [place] [address] Dr. Sonido Bejarano IG % 0.3 % Normal 0.0-0.5 [facility] Comment on above: Performed By: #### C BC #### [facility] [address] [place] [address] Dr. Sonido Bejarano LYMPH # 1.3 103/ul Normal 1.2-3.8 [facility] Comment on above: Performed By: #### C BC #### [facility] [address] [place] [address] Dr. Sonido Bejarano Lymphocytes/100 WBC (Bld) 19.4 % Critically low 20.5-60.0 [facility] Comment on above: Performed By: #### C BC #### [facility] [address] [place] [address] Dr. Sonido Bejarano MANUAL DIFF REQ NO Normal [facility] Comment on above: Performed By: #### C BC #### [facility] [address] [address] [address] Sonido Bejarano MCH (RBC) [Entitic mass] 15.5 pg Critically low 25.9-34.0 [facility] Comment on above: Performed By: #### C BC #### [facility] [address] [place] [address] Dr. Sonido Bejarano MCHC (RBC) [Mass/Vol] 25.7 g/dL Critically low 29.9-35.2 [facility] Comment on above: Performed By: #### C BC #### [facility] [address] [place] [address] Dr. Sonido Bejarano MCV (RBC) [Entitic vol] 60.2 fL Critically low 80.0-94.0 [facility] Comment on above: Performed By: #### C BC #### [facility] [address] [place] [address] Dr. Sonido Bejarano MONO # 0.9 103/ul Critically high 0.3-0.8 [facility] Comment on above: Performed By: #### C BC #### [facility] [address] [place] [address] Dr. Sonido Bejarano Monocytes/100 WBC (Bld) 12.9 % Critically high 1.7-12.0 [facility] Comment on above: Performed By: #### C BC #### [facility] [address] [place] [address] Dr. Sonido Bejarano NEUT # 4.5 103/ul Normal 1.4-6.5 [facility] Comment on above: Performed By: #### C BC #### [facility] [address] [place] [address] Dr. Sonido Bejarano Neutrophils/100 WBC (Bld) 66.7 % Normal 43.0-75.0 [facility] Comment on above: Performed By: #### C BC #### [facility] [address] [place] [address] Dr. Sonido Bejarano Platelet mean volume (Bld) [Entitic vol] 9.2 fL Critically low 9.5-13.5 [facility] Comment on above: Performed By: #### C BC #### [facility] [address] [place] [address] Dr. Sonido Bejarano PLT 356 103/ul Normal 150-450 [facility] Comment on above: Performed By: #### C BC #### [facility] [address] [place] [address] Dr. Sonido Bejarano RBC 5.23 106/ul Normal 4.70-6.10 [facility] Comment on above: Result Comment: 2+ P OIKILOCYTOSIS 2+ ANISOCYTOSIS 2+ OVALOCYTE 1+ TEAR DROP CELL 2+ ACANTHOCYTE Performed By: #### C BC #### [facility] [address] [place] [address] Dr. Sonido Bejarano WBC 6.8 103/ul Normal 4.0-11.0 [facility] Comment on above: Performed By: #### C BC #### [facility] [address] [place] [address] Dr. Sonido Bejarano CBC AUTO DIFFon 12-20-2022 BASO # 0.0 103/ul Normal 0.0-0.1 [facility] Comment on above: Performed By: #### C BC #### [facility] [address] [place] [address] Dr. Sonido Bejarano Basophils/100 WBC (Bld) 0.5 % Normal 0.2-2.0 [facility] Comment on above: Performed By: #### C BC #### [facility] [address] [place] [address] Dr. Sonido Bejarano EO # 0.1 103/ul Normal 0.0-0.7 [facility] Comment on above: Performed By: #### C BC #### [facility] [address] [place] [address] Dr. Sonido Bejarano Eosinophils/100 WBC (Bld) 1.3 % Normal 0.9-7.0 [facility] Comment on above: Performed By: #### C BC #### [facility] Laboratory [address] [place] [address] Dr. Sonido Bejarano Erythrocyte distribution width (RBC) [Ratio] 22.8 % Critically high 11.0-15.0 [facility] Comment on above: Performed By: #### C BC #### [facility] [address] [place] [address] Dr. Sonido Bejarano Hematocrit (Bld) [Volume fraction] 34.5 % Critically low 42.0-54.0 [facility] Comment on above: Performed By: #### C BC #### [facility] [address] [place] [address] Dr. Sonido Bejarano Hemoglobin (Bld) [Mass/Vol] 8.9 g/dL Critically low 14.0-18.0 [facility] Comment on above: Performed By: #### C BC #### [facility] [address] [place] [address] Dr. Sonido Bejarano IG # 0.01 10e3/ul Normal 0.00-0.03 [facility] Comment on above: Performed By: #### C BC #### [facility] [address] [place] [address] Dr. Sonido Bejarano IG % 0.2 % Normal 0.0-0.5 [facility] Comment on above: Performed By: #### C BC #### [facility] [address] [place] [address] Dr. Sonido Bejarano LYMPH # 1.0 103/ul Critically low 1.2-3.8 [facility] Comment on above: Performed By: #### C BC #### [facility] [address] [place] [address] Dr. Sonido Bejarano Lymphocytes/100 WBC (Bld) 18.3 % Critically low 20.5-60.0 [facility] Comment on above: Performed By: #### C BC #### [facility] [address] [place] [address] Dr. Sonido Bejarano MANUAL DIFF REQ NO Normal [facility] Comment on above: Performed By: #### C BC #### [facility] [address] [place] [address] Dr. Sonido Bejarano MCH (RBC) [Entitic mass] 15.6 pg Critically low 25.9-34.0 [facility] Comment on above: Performed By: #### C BC #### [facility] [address] [place] [address] Dr. Sonido Bejarano MCHC (RBC) [Mass/Vol] 25.8 g/dL Critically low 29.9-35.2 [facility] Comment on above: Performed By: #### C BC #### [facility] [address] [place] [address] Dr. Sonido Bejarano MCV (RBC) [Entitic vol] 60.6 fL Critically low 80.0-94.0 [facility] Comment on above: Performed By: #### C BC #### [facility] [address] [place] [address] Dr. Sonido Bejarano MONO # 0.7 103/ul Normal 0.3-0.8 [facility] Comment on above: Performed By: #### C BC #### [facility] [address] [place] [address] Dr. Sonido Bejarano Monocytes/100 WBC (Bld) 13.2 % Critically high 1.7-12.0 [facility] Comment on above: Performed By: #### C BC #### [facility] [address] [place] [address] Dr. Sonido Bejarano NEUT # 3.7 103/ul Normal 1.4-6.5 [facility] Comment on above: Performed By: #### C BC #### [facility] [address] [place] [address] Dr. Sonido Bejarano Neutrophils/100 WBC (Bld) 66.5 % Normal 43.0-75.0 [facility] Comment on above: Performed By: #### C BC #### [facility] [address] [place] [address] Dr. Sonido Bejarano Platelet mean volume (Bld) [Entitic vol] 9.6 fL Normal 9.5-13.5 [facility] Comment on above: Performed By: #### C BC #### [facility] [address] [place] [address] Dr. Sonido Bejarano PLT 441 103/ul Normal 150-450 [facility] Comment on above: Performed By: #### C BC #### [facility] [address] [place] [address] Dr. Sonido Bejarano RBC 5.69 106/ul Normal 4.70-6.10 [facility] Comment on above: Result Comment: Anis ocytosis 2+ Hypochromasia 2+ Poikilocytosis 2+ Ovalocytes 1+ Tear drop cells 1+ Acanthocytes 1+ Performed By: #### C BC #### [facility] [address] [place] [address] Dr. Sonido Bejarano WBC 5.5 103/ul Normal 4.0-11.0 [facility] Comment on above: Performed By: #### C BC #### [facility] [address] [place] [address] Dr. Sonido Bejarano CBC AUTO DIFFon 11-20-2022 BASO # 0.1 103/ul Normal 0.0-0.1 [facility] Comment on above: Performed By: #### C BC #### [facility] [address] [place] [address] Dr. Sonido Bejarano Basophils/100 WBC (Bld) 1.0 % Normal 0.2-2.0 [facility] Comment on above: Performed By: #### C BC #### [facility] [address] [place] [address] Dr. Sonido Bejarano EO # 0.1 103/ul Normal 0.0-0.7 [facility] Comment on above: Performed By: #### C BC #### [facility] [address] [place] [address] Dr. Sonido Bejarano Eosinophils/100 WBC (Bld) 2.1 % Normal 0.9-7.0 [facility] Comment on above: Performed By: #### C BC #### [facility] [address] [place] [address] Dr. Sonido Bejarano Erythrocyte distribution width (RBC) [Ratio] 23.0 % Critically high 11.0-15.0 [facility] Comment on above: Performed By: #### C BC #### [facility] [address] [address] [address] Sonido Bejarano Hematocrit (Bld) [Volume fraction] 32.6 % Critically low 42.0-54.0 [facility] Comment on above: Performed By: #### C BC #### [facility] [address] [place] [address] Dr. Sonido Bejarano Hemoglobin (Bld) [Mass/Vol] 8.0 g/dL Critically low 14.0-18.0 [facility] Comment on above: Performed By: #### C BC #### [facility] [address] [place] [address] Dr. Sonido Bejarano IG # 0.01 10e3/ul Normal 0.00-0.03 [facility] Comment on above: Performed By: #### C BC #### [facility] [address] [place] [address] Dr. Sonido Bejarano IG % 0.2 % Normal 0.0-0.5 [facility] Comment on above: Performed By: #### C BC #### [facility] [address] [place] [address] Dr. Sonido Bejarano LYMPH # 1.1 103/ul Critically low 1.2-3.8 [facility] Comment on above: Performed By: #### C BC #### [facility] [address] [place] [address] Dr. Sonido Bejarano Lymphocytes/100 WBC (Bld) 22.0 % Normal 20.5-60.0 [facility] Comment on above: Performed By: #### C BC #### [facility] [address] [place] [address] Dr. Sonido Bejarano MANUAL DIFF REQ NO Normal [facility] Comment on above: Performed By: #### C BC #### [facility] [address] [place] [address] Dr. Sonido Bejarano MCH (RBC) [Entitic mass] 15.6 pg Critically low 25.9-34.0 [facility] Comment on above: Performed By: #### C BC #### [facility] [address] [place] [address] Dr. Sonido Bejarano MCHC (RBC) [Mass/Vol] 24.5 g/dL Critically low 29.9-35.2 [facility] Comment on above: Performed By: #### C BC #### [facility] [address] [place] [address] Dr. Sonido Bejarano MCV (RBC) [Entitic vol] 63.4 fL Critically low 80.0-94.0 [facility] Comment on above: Performed By: #### C BC #### [facility] [address] [place] [address] Dr. Sonido Bejarano MONO # 0.6 103/ul Normal 0.3-0.8 [facility] Comment on above: Performed By: #### C BC #### [facility] [address] [place] [address] Dr. Sonido Bejarano Monocytes/100 WBC (Bld) 13.0 % Critically high 1.7-12.0 [facility] Comment on above: Performed By: #### C BC #### [facility] [address] [place] [address] Dr. Sonido Bejarano NEUT # 3.0 103/ul Normal 1.4-6.5 [facility] Comment on above: Performed By: #### C BC #### [facility] [address] [place] [address] Dr. Sonido Bejarano Neutrophils/100 WBC (Bld) 61.7 % Normal 43.0-75.0 [facility] Comment on above: Performed By: #### C BC #### [facility] [address] [place] [address] Dr. Sonido Bejarano Platelet mean volume (Bld) [Entitic vol] 8.6 fL Critically low 9.5-13.5 [facility] Comment on above: Performed By: #### C BC #### [facility] [address] [place] [address] Dr. Sonido Bejarano PLT 333 103/ul Normal 150-450 [facility] Comment on above: Performed By: #### C BC #### [facility] [address] [place] [address] Dr. Sonido Bejarano RBC 5.14 106/ul Normal 4.70-6.10 [facility] Comment on above: Performed By: #### C BC #### [facility] [address] [place] [address] Dr. Sonido Bejarano WBC 4.9 103/ul Normal 4.0-11.0 [facility] Comment on above: Performed By: #### C BC #### [facility] [address] [place] [address] Dr. Sonido Bejarano CBC AUTO DIFFon 10-11-2022 BASO # 0.0 103/ul Normal 0.0-0.1 [facility] Comment on above: Performed By: #### C BC #### [facility] [address] [place] [address] Dr. Sonido Bejarano Basophils/100 WBC (Bld) 0.8 % Normal 0.2-2.0 [facility] Comment on above: Performed By: #### C BC #### [facility] [address] [place] [address] Dr. Sonido Bejarano EO # 0.1 103/ul Normal 0.0-0.7 [facility] Comment on above: Performed By: #### C BC #### [facility] [address] [place] [address] Dr. oSnido Bejarano Eosinophils/100 WBC (Bld) 1.5 % Normal 0.9-7.0 [facility] Comment on above: Performed By: #### C BC #### [facility] [address] [place] [address] Dr. Sonido Bejarano Erythrocyte distribution width (RBC) [Ratio] 22.4 % Critically high 11.0-15.0 [facility] Comment on above: Performed By: #### C BC #### [facility] [address] [place] [address] Dr. Sonido Bejarano Hematocrit (Bld) [Volume fraction] 32.3 % Critically low 42.0-54.0 [facility] Comment on above: Performed By: #### C BC #### [facility] [address] [place] [address] Dr. Sonido Bejarano Hemoglobin (Bld) [Mass/Vol] 8.1 g/dL Critically low 14.0-18.0 [facility] Comment on above: Performed By: #### C BC #### [facility] [address] [place] [address] Dr. Sonido Bejarano IG # 0.01 10e3/ul Normal 0.00-0.03 [facility] Comment on above: Performed By: #### C BC #### [facility] [address] [place] [address] Dr. Sonido Bejarano IG % 0.2 % Normal 0.0-0.5 [facility] Comment on above: Performed By: #### C BC #### [facility] [address] [place] [address] Dr. Sonido Bejarano LYMPH # 1.2 103/ul Normal 1.2-3.8 [facility] Comment on above: Performed By: #### C BC #### [facility] [address] [place] [address] Dr. Sonido Bejarano Lymphocytes/100 WBC (Bld) 22.8 % Normal 20.5-60.0 [facility] Comment on above: Performed By: #### C BC #### [facility] [address] [place] [address] Dr. Sonido Bejarano MANUAL DIFF REQ NO Normal [facility] Comment on above: Performed By: #### C BC #### [facility] [address] [place] [address] Dr. Sonido Bejarano MCH (RBC) [Entitic mass] 15.1 pg Critically low 25.9-34.0 [facility] Comment on above: Performed By: #### C BC #### [facility] [address] [place] [address] Dr. Sonido Bejarano MCHC (RBC) [Mass/Vol] 25.1 g/dL Critically low 29.9-35.2 [facility] Comment on above: Performed By: #### C BC #### [facility] [address] [place] [address] Dr. Sonido Bejarano MCV (RBC) [Entitic vol] 60.0 fL Critically low 80.0-94.0 [facility] Comment on above: Performed By: #### C BC #### [facility] [address] [place] [address] Dr. Sonido Bejarano MONO # 0.7 103/ul Normal 0.3-0.8 [facility] Comment on above: Performed By: #### C BC #### [facility] [address] [place] [address] Dr. Sonido Bejarano Monocytes/100 WBC (Bld) 12.5 % Critically high 1.7-12.0 [facility] Comment on above: Performed By: #### C BC #### [facility] [address] [place] [address] Dr. Sonido Bejarano NEUT # 3.2 103/ul Normal 1.4-6.5 [facility] Comment on above: Performed By: #### C BC #### [facility] [address] [place] [address] Dr. Sonido Bejarano Neutrophils/100 WBC (Bld) 62.2 % Normal 43.0-75.0 [facility] Comment on above: Performed By: #### C BC #### [facility] [address] [place] [address] Dr. Sonido Bejarano Platelet mean volume (Bld) [Entitic vol] 8.6 fL Critically low 9.5-13.5 [facility] Comment on above: Performed By: #### C BC #### [facility] [address] [place] [address] Dr. Sonido Bejarano PLT 345 103/ul Normal 150-450 [facility] Comment on above: Performed By: #### C BC #### [facility] [address] [place] [address] Dr. Sonido Bejarano RBC 5.38 106/ul Normal 4.70-6.10 [facility] Comment on above: Performed By: #### C BC #### [facility] [address] [place] [address] Dr. Sonido Bejarano WBC 5.2 103/ul Normal 4.0-11.0 [facility] Comment on above: Performed By: #### C BC #### [facility] [address] [address] [address] Sonido Bejarano CBC W MANUAL DIFFon 09-18-20 ANISOCYTOSIS 3+ Normal [facility] Comment on above: Performed By: #### C BCMAN #### [facility] [address] [place] [address] Dr. Sonido Bejarano ATYPICAL LYMPH # Normal [facility] Comment on above: Performed By: #### C BCMAN #### [facility] [address] [place] [address] Dr. Sonido Bejarano ATYPICAL LYMPH % Normal [facility] Comment on above: Performed By: #### C BCMAN #### [facility] [address] [place] [address] Dr. Sonido Bejarano BAND # Normal 0.0-0.3 [facility] Comment on above: Performed By: #### C BCMAN #### [facility] [address] [place] [address] Dr. Sonido Bejarano BAND % Normal 0-5 [facility] Comment on above: Performed By: #### C RAMILA #### [facility] [address] [place] [address] Dr. Sonido Bejarano BASOM # 0.00 103/ul Normal 0.00-0.10 [facility] Comment on above: Performed By: #### C RAMILA #### [facility] [address] [place] [address] Dr. Sonido Bejarano BASOM % 0.0 % Critically low 0.2-2.0 [facility] Comment on above: Performed By: #### C BCKATHERINE #### [facility] [address] [place] [address] Dr. Sonido Bejarano BLAST # Normal [facility] Comment on above: Performed By: #### C BCMAN #### [facility] [address] [place] [address] Dr. Sonido Bejarano BLAST % Normal [facility] Comment on above: Performed By: #### C BCMAN #### [facility] [address] [address] [address] Sonido Bejarano CORRECTED WBC Normal 4.0-11.0 [facility] Comment on above: Performed By: #### C RAMILA #### [facility] [address] [place] [address] Dr. Sonido Bejarano EOS # 0.08 103/ul Normal 0.00-0.70 [facility] Comment on above: Performed By: #### C RAMILA #### [facility] [address] [address] [address] Sonido Bejarano EOS% 2.0 % Normal 0.9-7.0 [facility] Comment on above: Performed By: #### C RAMILA #### [facility] [address] [place] [address] Dr. Sonido Bejarano HCT 31.1 % Critically low 42.0-54.0 [facility] Comment on above: Performed By: #### C RAMILA #### [facility] [address] [place] [address] Dr. Sonido Bejarano HGB 8.3 g/dl Critically low 14.0-18.0 [facility] Comment on above: Performed By: #### C RAMILA #### [facility] [address] [place] [address] Dr. Sonido Bejarano HYPOCHROMASIA SLIGHT Normal [facility] Comment on above: Performed By: #### C RAMILA #### [facility] [address] [place] [address] Dr. Sonido Bejarano LYMPHM # 1.13 103/ul Critically low 1.20-3.80 [facility] Comment on above: Performed By: #### C RAMILA #### [facility] [address] [place] [address] Dr. Sonido Bejarano LYMPHM% 27.0 % Normal 20.5-60.0 [facility] Comment on above: Performed By: #### C RAMILA #### [facility] [address] [place] [address] Dr. Sonido Bejarano MCH 15.9 pg Critically low 25.9-34.0 [facility] Comment on above: Performed By: #### C BCKATHERINE #### [facility] [address] [address] [address] Sonido Bejarano MCHC 26.7 g/dl Critically low 29.9-35.2 [facility] Comment on above: Performed By: #### C BCKATHERINE #### [facility] [address] [address] [address] Sonido Bejarano MCV 59.5 fL Critically low 80.0-94.0 [facility] Comment on above: Performed By: #### C BCKATHERINE #### [facility] [address] [place] [address] Dr. Sonido Bejarano METAMYELOCYTE # Normal [facility] Comment on above: Performed By: #### C RAMILA #### [facility] [address] [place] [address] Dr. Sonido Bejarano METAMYELOCYTE % Normal [facility] Comment on above: Performed By: #### C RAMILA #### [facility] [address] [place] [address] Dr. Sonido Bejarano MICROCYTOSIS 3+ Normal [facility] Comment on above: Performed By: #### C BCKATHERINE #### [facility] [address] [place] [address] Dr. Sonido Bejarano MONOM# 0.55 103/ul Normal 0.30-0.80 [facility] Comment on above: Performed By: #### C BCKATHERINE #### [facility] [address] [place] [address] Dr. Sonido Bejarano MONOM% 13.0 % Critically high 1.7-12.0 [facility] Comment on above: Performed By: #### C BCKATHERINE #### [facility] [address] [place] [address] Dr. Sonido Bejarano MPV 9.7 fL Normal 9.5-13.5 [facility] Comment on above: Performed By: #### C BCKATHERINE #### [facility] [address] [place] [address] Dr. Sonido Bejarano MYELOCYTE # Normal [facility] Comment on above: Performed By: #### C RAMILA #### [facility] [address] [address] [address] Sonido Bejarano MYELOCYTE % Normal [facility] Comment on above: Performed By: #### C RAMILA #### [facility] [address] [place] [address] Dr. Sonido Bejarano NRBC Normal [facility] Comment on above: Performed By: #### C RAMILA #### [facility] [address] [place] [address] Dr. Sonido Bejarano PLT 421 103/ul Normal 150-450 [facility] Comment on above: Performed By: #### C RAMILA #### [facility] [address] [place] [address] Dr. Sonido Bejarano RBC 5.23 106/ul Normal 4.70-6.10 [facility] Comment on above: Performed By: #### C RAMILA #### [facility] [address] [place] [address] Dr. Sonido Bejarano RDW 22.2 % Critically high 11.0-15.0 [facility] Comment on above: Performed By: #### C RAMILA #### [facility] [address] [place] [address] Dr. Sonido Bejarano SEG # 2.44 103/ul Normal 1.40-6.50 [facility] Comment on above: Performed By: #### C RAMILA #### [facility] [address] [place] [address] Dr. Sonido Bejarano SEG % 58.0 % Normal 43.0-75.0 [facility] Comment on above: Performed By: #### C RAMILA #### [facility] [address] [place] [address] Dr. Sonido Bejarano WBC 4.2 103/ul Normal 4.0-11.0 [facility] Comment on above: Performed By: #### C RAMILA #### [facility] [address] [place] [address] Dr. Sonido Bejarano CBC AUTO DIFFon 08-21-2022 BASO # 0.0 103/ul Normal 0.0-0.1 [facility] Comment on above: Performed By: #### C BC #### [facility] [address] [place] [address] Dr. Sonido Bejarano Basophils/100 WBC (Bld) 0.6 % Normal 0.2-2.0 [facility] Comment on above: Performed By: #### C BC #### [facility] [address] [place] [address] Dr. Sonido Bejarano EO # 0.1 103/ul Normal 0.0-0.7 [facility] Comment on above: Performed By: #### C BC #### [facility] [address] [place] [address] Dr. Sonido Bejarano Eosinophils/100 WBC (Bld) 1.0 % Normal 0.9-7.0 [facility] Comment on above: Performed By: #### C BC #### [facility] [address] [place] [address] Dr. Sonido Bejarano Erythrocyte distribution width (RBC) [Ratio] 21.9 % Critically high 11.0-15.0 [facility] Comment on above: Result Comment: anis ocytosis 2+ Performed By: #### C BC #### [facility] [address] [place] [address] Dr. Sonido Bejarano Hematocrit (Bld) [Volume fraction] 32.7 % Critically low 42.0-54.0 [facility] Comment on above: Performed By: #### C BC #### [facility] [address] [place] [address] Dr. Sonido Bejarano Hemoglobin (Bld) [Mass/Vol] 8.4 g/dL Critically low 14.0-18.0 [facility] Comment on above: Performed By: #### C BC #### [facility] [address] [place] [address] Dr. Sonido Bejarano IG # 0.01 10e3/ul Normal 0.00-0.03 [facility] Comment on above: Performed By: #### C BC #### [facility] [address] [place] [address] Dr. Sonido Bejarano IG % 0.2 % Normal 0.0-0.5 [facility] Comment on above: Performed By: #### C BC #### [facility] [address] [place] [address] Dr. Sonido Bejarano LYMPH # 1.1 103/ul Critically low 1.2-3.8 [facility] Comment on above: Performed By: #### C BC #### [facility] [address] [address] [address] Sonido Bejarano Lymphocytes/100 WBC (Bld) 22.3 % Normal 20.5-60.0 [facility] Comment on above: Performed By: #### C BC #### [facility] [address] [place] [address] Dr. Sonido Bejarano MANUAL DIFF REQ NO Normal [facility] Comment on above: Performed By: #### C BC #### [facility] [address] [place] [address] Dr. Sonido Bejarano MCH (RBC) [Entitic mass] 15.3 pg Critically low 25.9-34.0 [facility] Comment on above: Performed By: #### C BC #### [facility] [address] [place] [address] Dr. Sonido Bejarano MCHC (RBC) [Mass/Vol] 25.7 g/dL Critically low 29.9-35.2 [facility] Comment on above: Result Comment: hypo chromasia 2+ Performed By: #### C BC #### [facility] [address] [place] [address] Dr. Sonido Bejarano MCV (RBC) [Entitic vol] 59.6 fL Critically low 80.0-94.0 [facility] Comment on above: Result Comment: micr ocytosis 3+ Performed By: #### C BC #### [facility] [address] [place] [address] Dr. Sonido Bejarano MONO # 0.5 103/ul Normal 0.3-0.8 [facility] Comment on above: Performed By: #### C BC #### [facility] [address] [place] [address] Dr. Sonido Bejarano Monocytes/100 WBC (Bld) 10.8 % Normal 1.7-12.0 [facility] Comment on above: Performed By: #### C BC #### [facility] [address] [place] [address] Dr. Sonido Bejarano NEUT # 3.2 103/ul Normal 1.4-6.5 [facility] Comment on above: Performed By: #### C BC #### [facility] [address] [place] [address] Dr. Sonido Bejarano Neutrophils/100 WBC (Bld) 65.1 % Normal 43.0-75.0 [facility] Comment on above: Performed By: #### C BC #### [facility] [address] [place] [address] Dr. Sonido Bejarano Platelet mean volume (Bld) [Entitic vol] 9.5 fL Normal 9.5-13.5 [facility] Comment on above: Performed By: #### C BC #### [facility] [address] [place] [address] Dr. Sonido Bejarano PLT 415 103/ul Normal 150-450 [facility] Comment on above: Performed By: #### C BC #### [facility] [address] [place] [address] Dr. Sonido Bejarano RBC 5.49 106/ul Normal 4.70-6.10 [facility] Comment on above: Performed By: #### C BC #### [facility] [address] [place] [address] Dr. Sonido Bejarano WBC 5.0 103/ul Normal 4.0-11.0 [facility] Comment on above: Performed By: #### C BC #### [facility] [address] [place] [address] Dr. Sonido Bejarano CBC AUTO DIFFon 08-02-2022 BASO # 0.0 103/ul Normal 0.0-0.1 [facility] Comment on above: Performed By: #### C BC #### [facility] [address] [place] [address] Dr. Sonido Bejarano Basophils/100 WBC (Bld) 0.3 % Normal 0.2-2.0 [facility] Comment on above: Performed By: #### C BC #### [facility] [address] [place] [address] Dr. Sonido Bejarano EO # 0.0 103/ul Normal 0.0-0.7 [facility] Comment on above: Performed By: #### C BC #### [facility] [address] [place] [address] Dr. Sonido Bejarano Eosinophils/100 WBC (Bld) 0.7 % Critically low 0.9-7.0 [facility] Comment on above: Performed By: #### C BC #### [facility] [address] [place] [address] Dr. Sonido Bejarano Erythrocyte distribution width (RBC) [Ratio] 21.9 % Critically high 11.0-15.0 [facility] Comment on above: Performed By: #### C BC #### [facility] [address] [place] [address] Dr. Sonido Bejarano Hematocrit (Bld) [Volume fraction] 30.0 % Critically low 42.0-54.0 [facility] Comment on above: Performed By: #### C BC #### [facility] [address] [place] [address] Dr. Sonido Bejarano Hemoglobin (Bld) [Mass/Vol] 7.8 g/dL Critically low 14.0-18.0 [facility] Comment on above: Performed By: #### C BC #### [facility] [address] [place] [address] Dr. Sonido Bejarano IG # 0.01 10e3/ul Normal 0.00-0.03 [facility] Comment on above: Performed By: #### C BC #### [facility] [address] [place] [address] Dr. Sonido Bejarano IG % 0.2 % Normal 0.0-0.5 [facility] Comment on above: Performed By: #### C BC #### [facility] [address] [place] [address] Dr. Sonido Bejarano LYMPH # 1.0 103/ul Critically low 1.2-3.8 [facility] Comment on above: Performed By: #### C BC #### [facility] [address] [place] [address] Dr. Sonido Bejarano Lymphocytes/100 WBC (Bld) 18.0 % Critically low 20.5-60.0 [facility] Comment on above: Performed By: #### C BC #### [facility] [address] [place] [address] Dr. Sonido Bejarano MANUAL DIFF REQ NO Normal [facility] Comment on above: Performed By: #### C BC #### [facility] [address] [place] [address] Dr. Sonido Bejarano MCH (RBC) [Entitic mass] 15.9 pg Critically low 25.9-34.0 [facility] Comment on above: Performed By: #### C BC #### [facility] [address] [place] [address] Dr. Sonido Bejarano MCHC (RBC) [Mass/Vol] 26.0 g/dL Critically low 29.9-35.2 [facility] Comment on above: Performed By: #### C BC #### [facility] [address] [place] [address] Dr. Sonido Bejarano MCV (RBC) [Entitic vol] 61.2 fL Critically low 80.0-94.0 [facility] Comment on above: Performed By: #### C BC #### [facility] [address] [place] [address] Dr. Sonido Bejarano MONO # 0.5 103/ul Normal 0.3-0.8 [facility] Comment on above: Performed By: #### C BC #### [facility] [address] [place] [address] Dr. Sonido Bejarano Monocytes/100 WBC (Bld) 8.7 % Normal 1.7-12.0 [facility] Comment on above: Performed By: #### C BC #### [facility] [address] [place] [address] Dr. Sonido Bejarano NEUT # 4.1 103/ul Normal 1.4-6.5 [facility] Comment on above: Performed By: #### C BC #### [facility] [address] [place] [address] Dr. Sonido Bejarano Neutrophils/100 WBC (Bld) 72.1 % Normal 43.0-75.0 [facility] Comment on above: Performed By: #### C BC #### [facility] [address] [place] [address] Dr. Sonido Bejarano Platelet mean volume (Bld) [Entitic vol] 9.3 fL Critically low 9.5-13.5 [facility] Comment on above: Performed By: #### C BC #### [facility] [address] [place] [address] Dr. Sonido Bejarano PLT 339 103/ul Normal 150-450 [facility] Comment on above: Performed By: #### C BC #### [facility] [address] [place] [address] Dr. Sonido Bejarano RBC 4.90 106/ul Normal 4.70-6.10 [facility] Comment on above: Performed By: #### C BC #### [facility] [address] [place] [address] Dr. Sonido Bejarano WBC 5.7 103/ul Normal 4.0-11.0 [facility] Comment on above: Performed By: #### C BC #### [facility] [address] [place] [address] Dr. Sonido Bejarano CBC AUTO DIFFon 06-17-2022 BASO # 0.0 103/ul Normal 0.0-0.1 [facility] Comment on above: Performed By: #### C BC #### [facility] [address] [place] [address] Dr. Sonido Bejarano Basophils/100 WBC (Bld) 0.7 % Normal 0.2-2.0 [facility] Comment on above: Performed By: #### C BC #### [facility] [address] [place] [address] Dr. Sonido Bejarano EO # 0.3 103/ul Normal 0.0-0.7 [facility] Comment on above: Performed By: #### C BC #### [facility] [address] [place] [address] Dr. Sonido Bejarano Eosinophils/100 WBC (Bld) 5.3 % Normal 0.9-7.0 [facility] Comment on above: Performed By: #### C BC #### [facility] [address] [place] [address] Dr. Sonido Bejarano Erythrocyte distribution width (RBC) [Ratio] 22.1 % Critically high 11.0-15.0 [facility] Comment on above: Performed By: #### C BC #### [facility] [address] [place] [address] Dr. Sonido Bejarano Hematocrit (Bld) [Volume fraction] 32.2 % Critically low 42.0-54.0 [facility] Comment on above: Performed By: #### C BC #### [facility] [address] [place] [address] Dr. Sonido Bejarano Hemoglobin (Bld) [Mass/Vol] 8.2 g/dL Critically low 14.0-18.0 [facility] Comment on above: Performed By: #### C BC #### [facility] [address] [place] [address] Dr. Sonido Bejarano IG # 0.01 10e3/ul Normal 0.00-0.03 [facility] Comment on above: Performed By: #### C BC #### [facility] [address] [place] [address] Dr. Sonido Bejarano IG % 0.2 % Normal 0.0-0.5 [facility] Comment on above: Performed By: #### C BC #### [facility] [address] [place] [address] Dr. Sonido Bejarano LYMPH # 1.1 103/ul Critically low 1.2-3.8 [facility] Comment on above: Performed By: #### C BC #### [facility] [address] [place] [address] Dr. Sonido Bejarano Lymphocytes/100 WBC (Bld) 19.3 % Critically low 20.5-60.0 [facility] Comment on above: Performed By: #### C BC #### [facility] [address] [place] [address] Dr. Sonido Bejarano MANUAL DIFF REQ NO Normal [facility] Comment on above: Performed By: #### C BC #### [facility] [address] [place] [address] Dr. Sonido Bejarano MCH (RBC) [Entitic mass] 15.8 pg Critically low 25.9-34.0 [facility] Comment on above: Performed By: #### C BC #### [facility] [address] [place] [address] Dr. Sonido Bejarano MCHC (RBC) [Mass/Vol] 25.5 g/dL Critically low 29.9-35.2 [facility] Comment on above: Performed By: #### C BC #### [facility] [address] [place] [address] Dr. Sonido Bejarano MCV (RBC) [Entitic vol] 62.0 fL Critically low 80.0-94.0 [facility] Comment on above: Performed By: #### C BC #### [facility] [address] [place] [address] Dr. Sonido Bejarano MONO # 0.9 103/ul Critically high 0.3-0.8 [facility] Comment on above: Performed By: #### C BC #### [facility] [address] [place] [address] Dr. Sonido Bejarano Monocytes/100 WBC (Bld) 16.0 % Critically high 1.7-12.0 [facility] Comment on above: Performed By: #### C BC #### [facility] [address] [place] [address] Dr. Sonido Bejarano NEUT # 3.2 103/ul Normal 1.4-6.5 [facility] Comment on above: Performed By: #### C BC #### [facility] [address] [place] [address] Dr. Sonido Bejarano Neutrophils/100 WBC (Bld) 58.5 % Normal 43.0-75.0 [facility] Comment on above: Performed By: #### C BC #### [facility] [address] [place] [address] Dr. Sonido Bejarano Platelet mean volume (Bld) [Entitic vol] 9.3 fL Critically low 9.5-13.5 [facility] Comment on above: Performed By: #### C BC #### [facility] [address] [place] [address] Dr. Sonido Bejarano PLT 335 103/ul Normal 150-450 [facility] Comment on above: Performed By: #### C BC #### [facility] [address] [place] [address] Dr. Sonido Bejarano RBC 5.19 106/ul Normal 4.70-6.10 [facility] Comment on above: Performed By: #### C BC #### [facility] [address] [place] [address] Dr. Sonido Bejarano WBC 5.5 103/ul Normal 4.0-11.0 [facility] Comment on above: Performed By: #### C BC #### [facility] [address] [place] [address] Dr. Sonido Bejarano CBC AUTO DIFFon 05-15-2022 BASO # 0.0 103/ul Normal 0.0-0.1 [facility] Comment on above: Performed By: #### C BC #### [facility] [address] [place] [address] Dr. Sonido Bejarano Basophils/100 WBC (Bld) 0.8 % Normal 0.2-2.0 [facility] Comment on above: Performed By: #### C BC #### [facility] [address] [place] [address] Dr. Sonido Bejarano EO # 0.1 103/ul Normal 0.0-0.7 [facility] Comment on above: Performed By: #### C BC #### [facility] [address] [place] [address] Dr. Sonido Bejarano Eosinophils/100 WBC (Bld) 2.3 % Normal 0.9-7.0 [facility] Comment on above: Performed By: #### C BC #### [facility] [address] [place] [address] Dr. Sonido Bejarano Erythrocyte distribution width (RBC) [Ratio] 21.5 % Critically high 11.0-15.0 [facility] Comment on above: Performed By: #### C BC #### [facility] [address] [place] [address] Dr. Sonido Bejarano Hematocrit (Bld) [Volume fraction] 30.5 % Critically low 42.0-54.0 [facility] Comment on above: Performed By: #### C BC #### [facility] [address] [place] [address] Dr. Sonido Bejarano Hemoglobin (Bld) [Mass/Vol] 7.9 g/dL Critically low 14.0-18.0 [facility] Comment on above: Performed By: #### C BC #### [facility] [address] [place] [address] Dr. Sonido Bejarano IG # 0.01 10e3/ul Normal 0.00-0.03 [facility] Comment on above: Performed By: #### C BC #### [facility] [address] [place] [address] Dr. Sonido Bejarano IG % 0.2 % Normal 0.0-0.5 [facility] Comment on above: Performed By: #### C BC #### [facility] [address] [place] [address] Dr. Sonido Bejarano LYMPH # 1.3 103/ul Normal 1.2-3.8 [facility] Comment on above: Performed By: #### C BC #### [facility] [address] [place] [address] Dr. Sonido Bejarano Lymphocytes/100 WBC (Bld) 24.6 % Normal 20.5-60.0 [facility] Comment on above: Performed By: #### C BC #### [facility] [address] [place] [address] Dr. Sonido Bejarano MANUAL DIFF REQ NO Normal [facility] Comment on above: Performed By: #### C BC #### [facility] [address] [address] [address] Sonido Bejarano MCH (RBC) [Entitic mass] 15.6 pg Critically low 25.9-34.0 [facility] Comment on above: Performed By: #### C BC #### [facility] [address] [place] [address] Dr. Sonido Bejarano MCHC (RBC) [Mass/Vol] 25.9 g/dL Critically low 29.9-35.2 [facility] Comment on above: Performed By: #### C BC #### [facility] [address] [place] [address] Dr. Sonido Bejarano MCV (RBC) [Entitic vol] 60.4 fL Critically low 80.0-94.0 [facility] Comment on above: Performed By: #### C BC #### [facility] [address] [place] [address] Dr. Sonido Bejarano MONO # 0.6 103/ul Normal 0.3-0.8 [facility] Comment on above: Performed By: #### C BC #### [facility] [address] [place] [address] Dr. Sonido Bejarano Monocytes/100 WBC (Bld) 12.1 % Critically high 1.7-12.0 [facility] Comment on above: Performed By: #### C BC #### [facility] [address] [place] [address] Dr. Sonido Bejarano NEUT # 3.1 103/ul Normal 1.4-6.5 [facility] Comment on above: Performed By: #### C BC #### [facility] [address] [place] [address] Dr. Sonido Bejarano Neutrophils/100 WBC (Bld) 60.0 % Normal 43.0-75.0 [facility] Comment on above: Performed By: #### C BC #### [facility] [address] [place] [address] Dr. Sonido Bejarano Platelet mean volume (Bld) [Entitic vol] 9.6 fL Normal 9.5-13.5 [facility] Comment on above: Performed By: #### C BC #### [facility] [address] [place] [address] Dr. Sonido Bejarano PLT 399 103/ul Normal 150-450 [facility] Comment on above: Performed By: #### C BC #### [facility] [address] [place] [address] Dr. Sonido Bejarano RBC 5.05 106/ul Normal 4.70-6.10 [facility] Comment on above: Performed By: #### C BC #### [facility] [address] [place] [address] Dr. Sonido Bejarano WBC 5.1 103/ul Normal 4.0-11.0 [facility] Comment on above: Performed By: #### C BC #### [facility] [address] [place] [address] Dr. Sonido Bejarano CBC AUTO DIFFon 04-15-2022 BASO # 0.0 103/ul Normal 0.0-0.1 [facility] Comment on above: Performed By: #### C BC #### [facility] [address] [place] [address] Dr. Sonido Bejarano Basophils/100 WBC (Bld) 0.3 % Normal 0.2-2.0 [facility] Comment on above: Performed By: #### C BC #### [facility] [address] [place] [address] Dr. Sonido Bejarano EO # 0.1 103/ul Normal 0.0-0.7 [facility] Comment on above: Performed By: #### C BC #### [facility] [address] [place] [address] Dr. Sonido Bejarano Eosinophils/100 WBC (Bld) 1.0 % Normal 0.9-7.0 [facility] Comment on above: Performed By: #### C BC #### [facility] [address] [place] [address] Dr. Sonido Bejarano Erythrocyte distribution width (RBC) [Ratio] 21.2 % Critically high 11.0-15.0 [facility] Comment on above: Performed By: #### C BC #### [facility] [address] [address] [address] Sonido Bejarano Hematocrit (Bld) [Volume fraction] 32.2 % Critically low 42.0-54.0 [facility] Comment on above: Performed By: #### C BC #### [facility] [address] [address] [address] Sonido Bejarano Hemoglobin (Bld) [Mass/Vol] 8.3 g/dL Critically low 14.0-18.0 [facility] Comment on above: Performed By: #### C BC #### [facility] [address] [place] [address] Dr. Sonido Bejarano IG # 0.03 10e3/ul Normal 0.00-0.03 [facility] Comment on above: Performed By: #### C BC #### [facility] [address] [place] [address] Dr. Sonido Bejarano IG % 0.4 % Normal 0.0-0.5 [facility] Comment on above: Performed By: #### C BC #### [facility] [address] [place] [address] Dr. Sonido Bejarano LYMPH # 1.0 103/ul Critically low 1.2-3.8 [facility] Comment on above: Performed By: #### C BC #### [facility] [address] [place] [address] Dr. Sonido Bejarano Lymphocytes/100 WBC (Bld) 15.2 % Critically low 20.5-60.0 [facility] Comment on above: Performed By: #### C BC #### [facility] [address] [place] [address] Dr. Sonido Bejarano MANUAL DIFF REQ NO Normal [facility] Comment on above: Performed By: #### C BC #### [facility] [address] [place] [address] Dr. Sonido Bejarano MCH (RBC) [Entitic mass] 16.1 pg Critically low 25.9-34.0 [facility] Comment on above: Performed By: #### C BC #### [facility] [address] [address] [address] Sonido Bejarano MCHC (RBC) [Mass/Vol] 25.8 g/dL Critically low 29.9-35.2 [facility] Comment on above: Performed By: #### C BC #### [facility] [address] [place] [address] Dr. Sonido Bejarano MCV (RBC) [Entitic vol] 62.4 fL Critically low 80.0-94.0 [facility] Comment on above: Performed By: #### C BC #### [facility] [address] [place] [address] Dr. Sonido Bejarano MONO # 0.6 103/ul Normal 0.3-0.8 [facility] Comment on above: Performed By: #### C BC #### [facility] [address] [place] [address] Dr. Sonido Bejarano Monocytes/100 WBC (Bld) 8.5 % Normal 1.7-12.0 [facility] Comment on above: Performed By: #### C BC #### [facility] [address] [place] [address] Dr. Sonido Bejarano NEUT # 5.0 103/ul Normal 1.4-6.5 [facility] Comment on above: Performed By: #### C BC #### [facility] [address] [place] [address] Dr. Sonido Bejarano Neutrophils/100 WBC (Bld) 74.6 % Normal 43.0-75.0 [facility] Comment on above: Performed By: #### C BC #### [facility] [address] [place] [address] Dr. Sonido Bejarano Platelet mean volume (Bld) [Entitic vol] 9.9 fL Normal 9.5-13.5 [facility] Comment on above: Performed By: #### C BC #### [facility] [address] [place] [address] Dr. Sonido Bejarano PLT 355 103/ul Normal 150-450 [facility] Comment on above: Performed By: #### C BC #### [facility] [address] [place], [place] [address] Dr. Sonido Bejarano RBC 5.16 106/ul Normal 4.70-6.10 [facility] Comment on above: Result Comment: 1+ o valocytes slight hypochromic slight microchromic Performed By: #### C BC #### [facility] [address] [address] [address] Sonido Bejarano WBC 6.7 103/ul Normal 4.0-11.0 [facility] Comment on above: Performed By: #### C BC #### [facility] [address] [address] [address] Sonido BENNETTOVon 03-28-2022 CNOV Office Visit ([facility] ) -------- RJ COLBERT ([id number]) [address] Date Time Provider Department 03/28/22 11:20 AM ARNOLD GENAO [facility] During your visit today, we recorded the following information about you: Pulse Blood pressure Weight Height 80/minute 108/65 90.3 kg 1.803 m Yamile Berrios MA 03/28/2022 11:17 AM Signed What is the reason for your visit today? Established patient presents for hematochezia. Who is your referring physician? Are you having poor oral intake? NO Have you had unintentional weight loss of 15 lbs/7 Kg in the last 3-6 months? NO Bowels: regular Wound: None Temperature: No Drains: No Arnold Genao MD 03/28/2022 11:58 AM Signed COLORECTAL SURGERY March 28, 2022 Rj Colbert 21 year old Chief Complaint: hematochezia History of Present Illness: Rj Colbert is a 21 year old male presents to the office for evaluation of hematochezia. Last seen in the office on 11/16/21 with Cristal Nava NP for follow up visit after he underwent an ablation of internal hemorrhoids in 2 columns on 10/17/21. PAST MEDICAL HISTORY Diagnosis Date - Attention deficit hyperactivity disorder - MR (mental retardation) - Schizophrenia (HCC) - Tic disorder PAST SURGICAL HISTORY Procedure Laterality Date - ABDOMINAL SURGERY HX - HEMORRHOID;BAND LIGAT, JENNIFER/MUL 07/12/2021 Current Outpatient Medications Medication Sig Dispense [...] exam Anorectal: External exam reveals: see below Child Day Care Provider present: yes Assessment Assessment and Plan: Rj Colbert is a 21 year old male with straining and occasional rectal bleeding. Today, we talked about adding a magnesium supplement CALM to his regimen to decrease straining. I am of the opinion that more surgery is not the best option at this time. Arnold Genao MD Colorectal Surgery Charley Mcclelland RN 03/28/2022 12:12 PM Signed Calm education given for constipation. Charley Mcclelland RN 03/28/2022 2:47 PM Signed Addended by: CHARLEY MCCLELLAND on: 03/28/2022 02:47 PM Modules accepted: Orders Arnold Genao MD 03/28/2022 3:11 PM Signed Addended by: ARNOLD GENAO on: 03/28/2022 03:11 PM Modules accepted: Orders Referring Provider: SELF [200] Allergies As of Date: 03/28/2022 (No Known Allergies) Date Reviewed: 03/28/2022 Reviewed by: Yamile Berrios MA - Fully Assessed Reason for Visit: Established Patient Follow-Up [[id number]] Rectal Bleeding [202] Primary Visit Diagnosis:Hematochezia [K92.1] [...] benztropine (C (more content not included)... Normal [facility] Lisa 03-28-2022 CNPN Telephone ([facility]) -------- FILEMONRJ ([id number]) [address] Date Time Provider Department 03/28/22 [facility] GE[facility]O [facility] HEALTH CARE During your visit today, we recorded the following information about you: Essie Pickard Pss 03/28/2022 1:41 PM Signed Patient called and left message regarding prescription from today's visit return call to [phone] Charley Mcclelland RN 03/28/2022 2:49 PM Signed Returned call. Spoke with Jamieginger's nurse. She states she needs a script sent to his pharmacy for the magnesium supplement for constipation. Script will be sent. No other questions or concerns at this time. Allergies As of Date: 03/28/2022 (No Known Allergies) Date Reviewed: 03/28/2022 Reviewed by: Yamile Berrios MA - Fully Assessed Reason for Visit: Patient Question [2944] Prescriptions as of 03/28/2022 - acetaminophen (TYLENOL) [...] Encounter Status:Closed by CHARLEY MCCLELLAND on 03/28/[address] [facility] Telephone ([id number]) -------- RJ COLBERT ([id number]) 2000 Genia Reyez* Date Time Provider Department 03/28/22 ARNOLD GENAO [id number] During your visit today, we recorded the following information about you: Sara Rose [facility] 03/28/2022 3:45 PM Signed Pharmacy, [facility], phone , any pharmacist to clarify about carbonate? CALM is shelter able to order as food item? Please call to discuss. Charley Mcclelland, RN 03/28/2022 4:14 PM Signed Spoke with the pharmacist and she states that she does not provide food items. She will speak with the nurse at the shelter. Allergies As of Date: 03/28/2022 (No Known [...] Encounter Status:Closed by CHARLEY MCCLELLAND on 03/28/22 [facility] CNOVdavid 11-16-2021 CNOV Office Visit (COFHAM ) -------- RJ COLBERT ([id number]) 2000 Genia Joseph Date Time Provider Department 11/16/21 1:30 PM CRISTAL NAVA During your visit today, we recorded the following information about you: Pulse Blood pressure Weight Height 60/minute 136/80 96.2 kg 1.803 m Cristal Nava APRN.FILENET DEVELOPER 11/16/2021 12:59 PM Signed COLORECTAL SURGERY November 16, 2021 Rj Colbert 21 year old Chief Complaint: Postop visit History of Present Illness: Rj Colbert is a 21 year old male status post ablation of internal hemorrhoids in [address] Genao on 10/17/2021.He reports doing well since procedure. [...] Anorectal: deferred Assessment Assessment and Plan: Rj Colbert is a 21 year old male patient [...] operative reports - I have discussed Rj Colbert's treatment plan and/or results with patient and POA. Cristal Nava APRN.HUSAM Colorectal Surgery Referring Provider: ARNOLD GENAO [[id number]] Allergies As of Date: 11/16/2021 (No Known Allergies) Date Reviewed: 11/16/2021 Reviewed by: Cristal Nava APRN.[facility] - Fully Assessed Reason for Visit: Post [...] 07/10/2021 Hemorrho (more content not included)... Normal [facility] ANES POSTPROC EVALon 021 ANES POSTPROC EVAL HNO ID: [id number] Author: Michael Martínez MD Service: Anesthesiology Author Type: Anesthesiologist Type: Anesthesia Postprocedure Evaluation Filed: 10/17/2021 10:23 AM Note Text: POST ANESTHESIA EVALUATION NOTE : 2000 Procedure Summary Date: 10/17/21 Room / Location: [address] / [facility] Anesthesia Start: 841 Anesthesia Stop: 913 Procedure: HEMORRHOIDECTOMY EXTERNAL > 2 COLUMNS/GROUPS (N/A Anus) Diagnosis: Hemorrhoids, unspecified hemorrhoid type (Hemorrhoids, unspecified hemorrhoid type [K64.9]) Surgeons: Arnold Genao MD Responsible Provider: Michael Martínez MD Anesthesia Type: general ASA Status: 2 Anesthesia Type: general Airway Type: LMA Last Vitals Vitals Value Taken Time BP 129/88 10/17/21 0955 Temp 36.3 ?C (97.3 ?F) 10/17/21910 Pulse 84 10/17/21 0955 Resp 16 10/17/21 09 SpO2 100 % 10/17/21954 Post Anesthesia Patient [...] SIGNATURE: Michael Martínez MD PATIENT NAME: Rj Colbert DATE: October 17, 2021 TIME: 10:23 AM CSN: [id number] [facility] ANES PRE-OPon 10-17-2021 ANES PRE-OP HNO ID: [id number] Author: Michael Martíenz MD Service: Anesthesiology Author Type: Anesthesiologist Type: Anesthesia Preprocedure Evaluation Filed: 10/17/2021 8:32 AM Note Text: ANESTHESIOLOGY DAY OF SURGERY NOTE : 2000 Procedure Information Date/Time: 10/17/21 0730 Procedure: HEMORRHOIDECTOMY EXTERNAL > 2 COLUMNS/GROUPS (N/A ) Location: [address] / [facility] Surgeons: Arnold Genao MD Estimated body mass index is 29.7 [...] obtained phone consent from patient's POA, Soren Duke. I placed a phone call to Mr. [...] none. Vitals Value Taken Time BP 120/80 10/17/21 0655 Pulse 80 10/17/21 0655 Resp 16 10/17/21 0655 Temp 36.2 ?C (97.2 ?F) 10/17/21 0655 SpO2 100 % 10/17/21 0655 Facility-Administered Medications as of 10/17/2021 Medication Dose [...] SIGNATURE: Michael Martínez MD PATIENT NAME: Rj Colbert DATE: October 17, 2021 TIME: 8:27 AM CSN: [id number] [facility] BRIEF OP NOTon 10-17-2021 BRIEF OP NOT HNO ID: [id number] Author: Jared Rowe MD Service: Colorectal Author Type: Resident Type: Brief Op Note Filed: 10/17/2021 9:15 AM Note Text: BRIEF OPERATIVE / PROCEDURE NOTE LOG ID: [id number] SURGERY/PROCEDURE DATE: 10/17/2021 INCISION/PROCEDURE START TIME: 8:55 AM INCISION CLOSE/PROCEDURE END TIME: 9:02 AM SURGEON(S)/PROCEDURALIST (S) AND CROSS CUT SAWYER(S): Surgeon(s) and Role: * Arnold Genao MD - Primary * Jared Rowe MD - Resident - Assisting No Additional Staff SURGERY/PROCEDURE(S): Ablation of internal hemorrhoids (R posterior, L lateral) ANESTHESIA: General FINDINGS: grade 1-2 internal hemorrhoids. Mild rectal prolapse. ESTIMATED BLOOD LOSS: 2 mls SPECIMENS: None COMPLICATIONS: None PRE-OP/PRE-PROCEDURE DIAGNOSIS: rectal bleeding, hemorrhoids POST-OP/POST-PROCEDURE DIAGNOSIS: Same as Preop SIGNATURE: Jraed Rowe MD PATIENT NAME: Rj Colbert DATE: October 17, 2021 TIME: 9:13 AM [facility] HISTORY PHYSICALon HISTORY PHYSICAL HNO ID: [id number] Author: Jared Rowe MD Service: Colorectal Author Type: Resident Type: HANDP Filed: 10/17/2021 7:22 AM Note Text: -------- Attestation signed by Arnold Genao MD at 10/30/2021 11:18 AM hp -------- [...] SIGNATURE: Jared Rowe MD PATIENT NAME: Rj Colbert DATE: October 17, 2021 TIME: 7:22 AM [facility] OPERATIVE NOon 10-17-2021 OPERATIVE NO HNO ID: [id number] Author: Arnold Genao MD Service: Colorectal Author Type: Physician Type: Operative Report Filed: 10/30/2021 11:21 AM Note Text: [facility] - Operative Report RJ COLBERT : 2000 AGE: 21. SEX: M PATIENT TYPE: A HOSP SVC: [facility] LOCATION: [facility] ATTENDING PHYSICIAN: Arnold Genao M.D. CSN NUMBER: [id number] DATE OF SURGERY/PROCEDURE: 10/17/2021 INCISION/PROCEDURE START TIME: 8:55 AM INCISION CLOSE/PROCEDURE END TIME: 9:02 AM PREOPERATIVE DIAGNOSIS: Hemorrhoids. POSTOPERATIVE DIAGNOSIS: Hemorrhoids. SURGEON: Arnold Genao M.D. CROSS CUT SAWYER: Jared. SURGERY/PROCEDURE: Ablation. ANESTHESIA: General ESTIMATED BLOOD [...] the disease was overall very minor. Arnold Genao M.D. BC:[id number] /[id number] Normal [facility] HISTORY PHYSICALon HISTORY PHYSICAL HNO ID: [id number] Author: Zahira Heath APRN.FILENET DEVELOPER Service: ? Author Type: Nurse Practitioner Type: HANDP Filed: 10/11/2021 11:31 AM Note Text: HISTORY AND PHYSICAL EXAMINATION SERVICE DATE: 10/11/2021 SERVICE TIME: 11:13 AM PRIMARY CARE PHYSICIAN: No primary care provider on file. REASON FOR VISIT: Rj Colbert is a 21 year old male who is scheduled for HEMORRHOIDECTOMY EXTERNAL > 2 COLUMNS/GROUPS at the request of Dr. Arnold Genao for consultation. My final recommendation will be communicated back to the requesting physician by way of shared medical record or letter. The patient has the following: ACTIVE PROBLEM LIST Developmental Delay Schizophrenia (Hcc) Subjective CHIEF COMPLAINT: Hemorrhoids HPI: 21 year old male with a history of MR/DD and schizophrenia presents for PAT today with a caregiver from his shelter. States he is having around 5 bowel [...] fevers. Neuro: No history of TIA's, stroke, BOOK CLEANER tumor, impaired sensorium, hemiplegia, paraplegia or quadraplegia. No neurological symptoms or problems. Respiratory: No history of current cough or dyspnea, or pneumonia in the past 6 weeks. No history of respiratory/pulmonary symptoms or problems. Cardiovascular: No history of HTN requiring medication, no history of angina, CHF, AR, cardiac surgery or stents. Denies rest pain, [...] skills. Pulse (more content not included)... Normal [facility] CNOVon 08-31-2021 CNOV Office Visit (COFHAM ) -------- RJ COLBERT ([id number]) 2000 Genia Joseph Date Time Provider Department 08/31/21 1:30 PM ARNOLD GENAO COKYLER During your visit today, we recorded the following information about you: Pulse Blood pressure Weight 91/minute 131/80 97.5 kg Arnold Genao MD 09/02/2021 7:18 AM Signed COLORECTAL SURGERY August 31, 2021 Rj Colbert 21 year old Chief Complaint: post op History of Present Illness: Rj Colbert is a 21 year old male presents [...] Anorectal: External exam reveals : see below Child Day Care Provider present: yes Assessment Assessment and Plan: Rj Colbert is a 21 year old male who is doing relatively well after his recent rubber band ligation. He still has some rectal bleeding and it is difficult to assess the exact amount. If the bleeding persists we will consider internal hemorrhoidectomy. Arnold Genao MD Colorectal Surgery Referring Provider: ELHAM VAN [[id number]] Allergies As of Date: 08/31/2021 (No Known [...] (HCC) [F20.9] 07/10/2021 Encounter Status:Closed by ARNOLD GENAO on 09/02/21 [facility] OPERATIVE NOon 07-17-2021 OPERATIVE NO HNO ID: [id number] Author: Arnold Genao MD Service: Colorectal Author Type: Physician Type: Operative Report Filed: 08/01/2021 1:12 PM Note Text: [facility] - Operative Report RJ COLBERT : 2000 AGE: 21. SEX: M PATIENT TYPE: A HOSP SVC: [facility] LOCATION: [facility] ATTENDING PHYSICIAN: Arnold Genao M.D. CSN NUMBER: [id number] DATE OF SURGERY/PROCEDURE: 07/12/2021 INCISION/PROCEDURE START TIME: 10:55 AM INCISION CLOSE/PROCEDURE END TIME: 10:58 AM PREOPERATIVE DIAGNOSIS: Rectal bleeding. POSTOPERATIVE DIAGNOSIS: Rectal bleeding. SURGEON: Arnold Genao M.D. CROSS CUT SAWYER: None. SURGERY/PROCEDURE: Rubber-band ligation hemorrhoidectomy. ANESTHESIA: General [...] to recovery room in good condition. Arnold Genao M.D. BC:[id number] /[phone] [facility] 07-13-2021 [facility] Telephone ([facility]) -------- JAMIE COLBERTGINGER ([id number]) 2000 Genia Joseph Date Time Provider Department 07/13/21 ARNOLD GENAO [facility] During your visit today, we recorded the following information about you: Essie Pickard Pss 07/13/2021 3:27 PM Signed Patient's caregiver called with post operative hemorrhoidectomy questions and concerns of bands falling off return call to [phone] Sara Rose [facility] 07/16/2021 12:22 PM Signed Kasia caregiver called. Patient banding undone. Called last Friday, waiting to talk to nurse about care. [phone] Nona Banks RN 07/16/2021 4:56 PM Signed [...] Status:Closed by NONA BANKS on 07/16/21 Normal [facility] ANES POSTPROC EVALon 021 ANES POSTPROC EVAL HNO ID: [id number] Author: Jared Arriaga MD Service: Anesthesiology Author Type: Anesthesiologist Type: Anesthesia Postprocedure Evaluation Filed: 07/12/2021 12:05 PM Note Text: POST ANESTHESIA EVALUATION NOTE : 2000 Procedure Summary Date: 07/12/21 Room / Location: [address] / [facility] Anesthesia Start: 1044 Anesthesia Stop: 1110 Procedures: EXAM UNDER ANESTHESIA RECTAL (N/A Anus) BANDING HEMORRHOID (N/A Anus) Diagnosis: Grade I hemorrhoids (Grade I hemorrhoids [K64.0]) Surgeons: Arnold Genao MD Responsible Provider: Jared Arriaga MD Anesthesia [...] SIGNATURE: Jared Arriaga MD PATIENT NAME: Rj Colbert DATE: July 12, 2021 TIME: 12:05 PM CSN: [id number] [facility] ANES PRE-OPon 07-12-2021 ANES PRE-OP HNO ID: [id number] Author: Jared Arriaga MD Service: Anesthesiology Author Type: Anesthesiologist Type: Anesthesia Preprocedure Evaluation Filed: 07/12/2021 9:21 AM Note Text: ANESTHESIOLOGY DAY OF SURGERY NOTE : 2000 Procedure(s) (LRB): EXAM UNDER ANESTHESIA RECTAL (N/A) BANDING HEMORRHOID (N/A) Surgeon(s): Arnold Genao MD Estimated body mass index is 32.14 [...] Vitals Value Taken Time BP 118/83 07/12/21 08 Pulse 77 07/12/21855 Resp 16 07/12/21855 Temp 36.6 ?C (97.9 ?F) 07/12/21855 SpO2 100 % 07/12/21855 Facility-Administered Medications as of 07/12/2021 Medication Dose [...] SIGNATURE: Jared Arriaga MD PATIENT NAME: Rj Colbert DATE: July 12, 2021 TIME: 9:18 AM CSN: [id number] [facility] HISTORY PHYSICALon HISTORY PHYSICAL HNO ID: [id number] Author: Arnold Genao MD Service: Colorectal Author Type: Physician Type: [...] problems. * Provisional Diagnosis/Treatment Plan: SIGNATURE: Arnold Genao MD PATIENT NAME: Rj Colbert DATE: July 12, 2021 TIME: 10:39 AM [facility] HISTORY PHYSICALon HISTORY PHYSICAL HNO ID: [id number] Author: Zahira Ivy PA-C Service: ? Author Type: Physician Business Applications Analyst Type: HANDP Filed: 07/10/2021 2:28 PM Note Text: HISTORY AND PHYSICAL EXAMINATION SERVICE DATE: 07/10/2021 SERVICE TIME: 1:55 PM PRIMARY CARE PHYSICIAN: No primary care provider on file. REASON FOR VISIT: Rj Colbert is a 21 year old male who is scheduled for RECTAL EXAM UNDER ANESTHESIA AND BANDING OF HEMORRHOID at the request of Dr. Arnold Genao for consultation. My final recommendation will be communicated back to the requesting physician by way of shared medical record or letter. The patient has the following: ACTIVE PROBLEM LIST Developmental Delay Schizophrenia (Hcc) Subjective CHIEF COMPLAINT: Rectal Bleeding HPI: 21 year old male with a history of MR/DD and schizophrenia presents for PAT today with a caregiver from his shelter. States he is having around 5 bowel [...] fevers. Neuro: No history of TIA's, stroke, BOOK CLEANER tumor, impaired sensorium, hemiplegia, paraplegia or quadraplegia. No neurological symptoms or problems. + MR / DD Respiratory: No history of current cough or dyspnea, or pneumonia in the past 6 weeks. No history of respiratory/pulmonary symptoms or problems. Cardiovascular: No history of HTN requiring medication, no history of angina, CHF, AR, cardiac surgery or stents. Denies rest pain, [...] found for: (more content not included)... Normal [facility] 07-05-2021 [facility] Telephone ([id number]) -------- RJ COLBERT ([id number]) 2000 Date Time Provider Department 07/05/21 ARNOLD GENAO [id number] During your visit today, we recorded the following information about you: Sara Rose [facility] 07/05/2021 3:26 PM Signed Nurse Kasia Sales Representative [employer] at shelter where patient resides called to discuss procedure information and date. Call to discuss [phone] Sara Rose [facility] 07/06/2021 11:12 AM Signed Kasia nurse aware of 07/12 procedure date. Would like the nurse to call to advise any prep instructions other than fasting after midnight. Call Nurse Kasia mgr [phone] Cristal Nava APRN.[facility] 07/06/2021 12:27 PM Signed Call returned. Reviewed NPO after midnight and scheduled PACCs appointment. Allergies As of Date: 07/05/2021 (No Known Allergies) Date Reviewed: 06/29/2021 Reviewed by: Arnold Genao MD - Fully Assessed Reason for Visit: procedure info [Other] Cmt: discuss plan Primary Visit Diagnosis:Hemorrhoids, internal, with bleeding [K64.8] Order(s):VIRTUAL CONSULT TO PACC [[id number]] Order #: [id number]: 1 FUTURE Prescriptions as of 07/06/2021 - [...] Date: 07/05/2021 (None) Encounter Status:Closed by CRISTAL NAVA on 07/06/21 [facility] 06-29-2021 CNOV Office Visit (COFHAM ) -------- RJ COLBERT ([id number]) 2000 M Date Time Provider Department 06/29/21 12:45 PM ARNOLD GENAO During your visit today, we recorded the following information about you: Pulse Blood pressure Weight Height 88/minute 125/77 100.8 kg 1.778 m Arnold Genao MD 06/29/2021 1:29 PM Signed COLORECTAL SURGERY June 29, 2021 Rj Colbert is a 21 year old male presents with complaint of rectal bleeding 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 They relate that he is having around [...] (222 lb 4.8 oz) BMI 31.90 kg/m? Child Day Care Provider present: Yes Rj Colbert is a 21 year old male presents with complaint of rectal bleeding with prolapsing Grade 3 internal hemorrhoids on exam. Our plan is to perform an EUA and rubber band ligation of internal hemorrhoids at the [facility]. Medical Decision Making: Arnold Genao MD Colorectal Surgery Referring Provider: ELHAM VAN [[id number]] Allergies As of Date: 06/29/2021 (No Known Allergies) Date Reviewed: 06/29/2021 Reviewed by: Arnold Genao MD - Fully Assessed Reason for Visit: [...] Date: 06/29/2021 (None) Encounter Status:Closed by ARNOLD GENAO on 06/29/21 [facility] 05-22-2021 [facility] ([facility]) -------- RJ COLBERT ([id number]) 2000 M Date Time Provider Department 05/22/21 ARNOLD GENAO [facility] During your visit today, we recorded the following information about you: Tamikokofi Sweeney 05/22/2021 3:28 PM Signed Ph. [phone] Alivia, who works for [employer], was transferred to Dr. Van's office from the [facility] line. Alivia needs to schedule Ryheam for rectal prolapse. Upon speaking with Alivia, Rj's prolapse only happens occasionally when he is constipated and/or sitting on the commode straining for long periods of time, sometimes for 2 hours. She stated that he is taking Miralax but is still straining. Dr. Genao, would you like me to schedule Ryheam for ARM, or would you like to follow up with him? Thank you Nona Banks RN 05/23/2021 2:21 PM Signed Will assist in scheduling pt for follow up. Allergies As of Date: 05/22/2021 (No Known Allergies) Date Reviewed: 06/02/2018 Reviewed by: Arnold Genao - Fully Assessed Reason for Visit: Machine Lacer - Other [3602] Cmt: appointment Prescriptions as of 05/23/2021 - [...] Status:Closed by NONA BANKS on 05/23/21 Normal [facility] Coding Summary.on 05-01-2018 Coding Summary. CODING DATE: 018 FINAL [facility] STATUS: Home (Routine DC) PAYOR: Medicaid [...] PROC EAPG STAT DESCRIPTION DOCTOR NAME DATE 21276 0149 Colonoscopy, flexible; Colin Shirley MD 04/17/2018 with biopsy, single or multiple 74 Discontinued [facility] Procedure After Administration of Anesthe 03675 Anesthesia for lower Colin Shirley MD 04/17/2018 intestinal endoscopic procedures, endoscope introduced distal to duodenum; not otherwise specified NOTE: The code number assigned matches the documented diagnosis and / or procedure in the patient's chart. However, the narrative phrase printed from the coding software may appear abbreviated, or result in slightly different terminology. Coded By: Sary Little Date Saved: 05/01/2018 08:02 am [facility] Coding Summary. CODING DATE: 018 FINAL [facility] STATUS: Home (Routine DC) PAYOR: Medicaid EA DESCRIPTION 0390 LEVEL I PATHOLOGY 0149 SCREENING COLORECTAL SERVICES 0380 ANESTHESIA ADMIT DX: REASON FOR VISIT DX: K62.5 Hemorrhage of anus and rectum FINAL DX: PRINCIPAL: K62.5 Hemorrhage of anus and rectum SECONDARY: K62.3 Rectal prolapse K62.89 Other specified diseases of anus and rectum K59.00 Constipation, unspecified F99 Mental disorder, not otherwise specified PYMT PROC EA STAT DESCRIPTION DOCTOR NAME DATE 37789 0149 Colonoscopy, flexible; Colin Shirley MD 04/17/2018 with biopsy, single or multiple 74 Discontinued [facility] Procedure After Administration of Anesthe 16865 Anesthesia for lower Colin Shirley MD 04/17/2018 intestinal endoscopic procedures, endoscope introduced distal to duodenum; not otherwise specified NOTE: The code number assigned matches the documented diagnosis and / or procedure in the patient's chart. However, the narrative phrase printed from the coding software may appear abbreviated, or result in slightly different terminology. Coded By: Sary Little Date Saved: 04/23/2018 11:46 am [facility] Progress Note-Physicianon Progress Note-Physician Patient: RJ COLBERT Age: 17 years Sex: Male : 2000 [...] Cardiovascular: Regular rhythm. Neurologic: Alert, Oriented. Plan [place] Society of Anesthesiologists (ASA) physical status classification: Class II. Anesthetic Preoperative Plan Anesthesia: General. . Anesthetic plan, risks, benefits, and alternatives discussed with the patient and/or family. Communication: face to face with (patient 5 minutes, Patient educated on smoking cesstation). [facility] Comment on above: Result Comment: Elec tronically Signed By: Quincy Ojeda Jr, DO\.br\Date and Time Signed: 04/28/18 08:15 EDT Main OR Intraoperative Recor don 04-20-2018 Main OR Intraoperative Record IntraOp Document Type FT Summary Primary Physician: Colin Shirley MD Finalized Date/Time: 04/20/18 09:38:35 Pt. Name: RJ COLBERT/Sex: 2000 Male Med Rec #: [id number] Physician: Colin Shirley MD Financial #: [id number] Pt. Type: O Room/Bed: / Admit/Disch: 04/17/18 09:21:54 - 04/17/18 23:59:59 Institution: Case Times FT Entry 1 Patient Times In Room 04/17/18 13:14:00 Out Room 04/17/18 13:32:00 Procedure Times Start 04/17/18 13:18:00 Stop 04/17/18 13:29:00 Anesthesia Times Start 04/17/18 13:14:00 Stop 04/17/18 13:32:00 Last Modified By: Addie Oreilly CST 04/17/18 13:32:23 General Comments: 04/20/2018 Chart opened to review and send charges Marika Pineda STATISTICAL CONSULTANT Case Attendance FT Entry 1 Entry 2 Entry 3 Case Attendee Casper GAUTAM, Colin Rene RN, Ashlee Boyd CST, Tori Role Performed Surgeon - Primary Bone Drier - Primary Scrub - Primary Time In 04/17/18 13:14:00 04/17/18 13:14:00 04/17/18 13:14:00 Time Out 04/17/18 13:32:00 04/17/18 13:32:00 04/17/18 13:32:00 Procedure COLONOSCOPY(.) COLONOSCOPY(.) COLONOSCOPY(.) Comments Last Modified By: Anju RN, Ashlee Rene RN, Ashlee Rene RN, Ashlee 04/17/18 13:32:29 04/17/18 13:32:29 04/17/18 13:32:29 Entry 4 Entry 5 Entry 6 Case Attendee Stas Palomares, Zenaida Mortensen CAA, Yvonne Hammond, Magi Briggs Role Performed Scrub - Other Scrub - Other Anesthesiologist Business Applications Analyst Time In 04/17/18 13:14:00 04/17/18 13:14:00 04/17/18 [...] (If Applicable) PreOp Antibiotic No Time Out Colin Shirley MD, Given Participants Anju TREVINO, Ashlee, Festus DEVLIN, Oliver Krishna CST, Stas Valle Mortgage Banker, Jelani Bess Kirstyn K Time Out Complete 04/17/18 13:16:00 [...] Yes Primary Surgeon Colin Shirley MD Start 04/17/18 13:18:00 Stop 04/17/18 13:29:00 Anesthesia Type [...] right side of colon. Last Modified By: Addei Oreilly CST 04/20/18 09:38:33 Post-Care Text: The patient is free from signs and symptoms of infection Skin Assessment (Pre Procedure) FT Pre-Care Text: Implements protective measures to prevent skin/ tissue injury due to thermal or mechanical sources Evaluates for signs and symptoms of physical injury to skin and tissue Entry 1 Skin Integrity Intact, [place], Warm, and Skin Abnormality No Dry Outcomes [...] RN Patient Status Stable Skin. Condition Intact, [place], Warm, and Dry Airway Maintenance Oxygen in Use? No Airway Device N/A Outcomes Met? Yes Last Modified By: Ashlee Rene RN 04/17/18 07:23:58 Post-Care Text: The patient is free from signs and symptoms of injury related to transfer/transport General Comments: REPORT GIVEN TO RN ORTHOPAEDICS/ AW recycling attendant Administration FT Pre-Care Text: Verifies allergies, administers prescribed medications and solutions, administers prescribed antibiotic therapy and immunizing agents as ordered, evaluates response to medications Administers prescribed medications and solutions Entry 1 Expiration Date Yes Outcomes Met? Yes Verified Last Modified By: Ashlee Rene RN 04/17/18 07:24:05 Post-Care Text: The patient received appropriate medication(s) safely administered during the perioperative period For [facility] please see scanned medication reconcilliation form [...] 13:32 Addie Oreilly CST 04/20/18 09:38 Normal [facility] History and Physicalon 04-17 History and Physical Date: 03/10/2018 2:15 PMPatient Name: Rj Lepe #: [id number]: MaleDOB (age): 2000 (17)Provider: Annie Benton Complaint: Change in Bowel habits Blood in StoolHistory of Present Illness:17 years old -Finnish male with multiple psychiatric problems, lives in a shelter, referred to me to be evaluatedfor rectal [...] urgency, stool incontinence, stomachPrinted on 04/10/2018 Rj Colbert [id number], 2000 Page 1 of 4Printed on 04/10/2018 Rj Colbert 36284, 1998cramps, straining. Denies abdominal pain, abdominal swelling, [...] up blood.Vital Signs:BP(mmHg)Pulse(ppm) Rhythm Weight (lbs/oz) Resp/min Wjlt710/68 82 Regular 191 / 12 98.3 (F)Physical [...] hemorrhageConstipationPl an: Colonoscopy will be performed at [facility] .Printed on 04/10/2018 Rj Colbert, [id number], 2000 Page 2 of 4Printed on 04/10/2018 Rj Colbert, 14631, 2000Risk & Medical Necessity: Diagnosis and management options are Extensive. The amount of data reviewedand/or ordered is Moderate. The level of risk is Moderate.Colin Shirley MD Rj Colbert, 21610, 2000 Page 3 of 4Printed on 04/10/2018 Rj Colbert, 06806, 1998Printed on 04/10/2018 Rj Colbert, 51758, 2000 Page 4 of 4Printed on 04/10/2018 Rj Colbert, 76598, 1998no change Normal [facility] Comment on above: Result Comment: Elec tronically Signed By: Colin Shirley MD\.br\Date and Time Signed: 04/17/18 13:15 EDT Inpatient Patient Summaryon 04-17-2018 In[facility] InstructionsPERSON INFORMATION Name: RJ COLBERT PHYSICIANS Admitting Physician: Debbi Shirley MDending Physician: Colin Shirley MD PCP: Murphy WEISS MD Diagnosis: Rectal prolapse Comment: PATIENT EDUCATION INFORMATIONInstructions: Medication Leaflets:Follow up:With: Address: When: [facility], [address] [place] [address] Business (1) Within 1 to 2 weeks MEDICATION LISTComment: Normal [facility] Main OR PACU I Recordon 03-28 Main OR PACU I Record PACU Phase I Document Type FT Summary Primary Physician: Colin Shirley MD Finalized Date/Time: 04/17/18 14:14:33 Pt. Name: RJ COLBERT /Sex: 2000 Male Med Rec #: [id number] Physician: Colin Shirley MD Financial #: [id number] Pt. Type: O Room/Bed: / Admit/Disch: 04/17/18 [...] Signed By: Essie Guzman RN 04/17/18 14:14 Normal [facility] Main OR Preoperative Recordo n 04-17-2018 Main OR Preoperative Record Holding Area Document Type FT Summary Primary Physician: Colin Shirley MD Finalized Date/Time: 04/17/18 09:56:12 Pt. Name: RJ COLBERTO.B./Sex: 2000 Male Med Rec #: [id number] Physician: Colin Shirley MD Financial #: [id number] Pt. Type: O Room/Bed: / Admit/Disch: 04/17/18 09:21:54 - Institution: Case Times Holding FT Pre-Care Text: Verifies consent for planned procedure, identifies individual values and wishes concerning care, includes family members in perioperative teaching Secures patient's records' belongings, and valuables, maintains patient's dignity and privacy, and maintains patient confidentiality Entry 1 In Holding 04/17/18 09:30:00 Outcomes Met? Yes Last Modified By: Viki Jaems RN 04/17/18 09:52:43 Post-Care Text: The patient [...] Viki James RN 04/17/18 09:56:10 General Comments: drjuwan [address] to hospital, informed dr ojeda, placed at the Finalized By: Viki James RN Document Signatures Signed By: Viki James RN 04/17/18 09:56 Normal [facility] Patient Education - Texton 0 04-17-2018 Patient Education - Text [facility] Coding Summary.on 04-02-2018 Coding Summary. CODING DATE: 018 FINAL [facility] STATUS: Home (Routine DC) PAYOR: Medicaid [...] PROC EAPG STAT DESCRIPTION DOCTOR NAME DATE 17130 0133 Sigmoidoscopy, flexible; Colin Shirley MD 03/30/2018 with biopsy, single or multiple 74 Discontinued [facility] Procedure After Administration of Anesthe 60725 Anesthesia for lower Colin Shirley MD 03/30/2018 intestinal endoscopic procedures, endoscope introduced distal to duodenum; not otherwise specified NOTE: The code number assigned matches the documented diagnosis and / or procedure in the patient's chart. However, the narrative phrase printed from the coding software may appear abbreviated, or result in slightly different terminology. Coded By: Sary Little Date Saved: 04/02/2018 04:16 pm Normal [facility] Progress Note-Physicianon Progress Note-Physician Patient: RJ COLBERT Age: 17 years Sex: Male : 2000 [...] Cardiovascular: Regular rhythm. Neurologic: Alert, Oriented. Plan [place] Society [employer] Anesthesiologists (ASA) physical status classification: Class II. Anesthetic Preoperative Plan Anesthesia: General. . Anesthetic plan, risks, benefits, and alternatives discussed with the patient and/or family. Communication: face to face with (patient 5 minutes, Patient educated on smoking cesstation). Normal [facility] Comment on above: Result Comment: Elec tronically Signed By: Quincy Ojeda Jr, DO\alin\Date and Time Signed: 04/01/18 07:53 EDT History and Physicalon 03-30 History and Physical Date: 03/10/2018 2:15 PMPatient Name: Rj ColbertAccount #: [id number]: MaleDOB (age): 2000 (17)Provider: Annie Benton Complaint: Change in Bowel habits Blood in StoolHistory of Present Illness:17 years old -Finnish male with multiple psychiatric problems, lives in a shelter, referred to me to be evaluatedfor rectal [...] urgency, stool incontinence, stomachPrinted on 03/26/2018 Rj Colbert, 53613, 2000 Page 1 of 4Printed on 03/26/2018 Rj Colbert, 85330, 1998cramps, straining. Denies abdominal pain, abdominal swelling, [...] up blood.Vital Signs:BP(mmHg)Pulse(ppm) Rhythm Weight (lbs/oz) Resp/min Rzsj798/68 82 Regular 191 / 12 98.3 (F)Physical [...] hemorrhageConstipationPl an: Colonoscopy will be performed at [facility] .Printed on 03/26/2018 Rj Colbert 01837, 2000 Page 2 of 4Printed on 03/26/2018 Rj Colbert 07764, 2000Risk & Medical Necessity: Diagnosis and management options are Extensive. The amount of data reviewedand/or ordered is Moderate. The level of risk is Moderate.Colin Shirley MD Rj Colbert 40738, 2000 Page 3 of 4Printed on 03/26/2018 Brittaney Coto03, 1998Printed on 03/26/2018 Brittaney Coto03, 2000 Page 4 of 4Printed on 03/26/2018 Cooper Coto, 1998No change Normal [facility] Comment on above: Result Comment: Elec tronically Signed By: Colin Shirley MD\.br\Date and Time Signed: 03/30/18 10:52 EDT Inpatient Patient Summaryon 03-30-2018 Inpatient [facility] Dis[facility] InstructionsPERSON INFORMATION Name: RJ COLBERT PHYSICIANS Ad[facility] Phys[facility] Physician: Colin Shirley MD PCP: Murphy WEISS MD Diagnosis: Internal hemorrhoids Comment: PATIENT EDUCATION INFORMATIONInstructions: Medication Leaflets:Follow up:With: Address: When: [facility], [address] [place], [place] [id number] Business () Within 1 to 2 weeks MEDICATION LISTComment: [facility] Main OR Intraoperative Recor don 03-30-2018 Main OR Intraoperative Record IntraOp Document Type FT Summary Primary Physician: Colin Shirley MD Finalized Date/Time: 03/30/18 11:37:17 Pt. Name: RJ COLBERT /Sex: 2000 Male Med Rec #: [id number] Physician: Colin Shirley MD Financial #: [id number] Pt. Type: O Room/Bed: / Admit/Disch: 03/30/18 09:32:43 - Institution: Case Times FT Entry 1 Patient Times In Room 03/30/18 10:56:00 Out Room 03/30/18 11:13:00 Procedure Times Start 03/30/18 10:59:00 Stop 03/30/18 11:09:00 Anesthesia Times Start 03/30/18 10:56:00 Stop 03/30/18 11:13:00 Last Modified By: Addie Oreilly CST 03/30/18 11:14:43 General Comments: 03/30/2018 Chart opened to review and send charges Marika Pineda CST Case Attendance FT Entry 1 Entry 2 Entry 3 Case Attendee Quincy Ojeda Jr, DO, RN, Francy Boyd CST, Tori Role Performed Anesthesiologist of Bone Drier - Primary Scrub - Primary Record Time In 03/30/18 10:56:00 03/30/18 10:56:00 03/30/18 10:56:00 Time Out 03/30/18 11:13:00 03/30/18 11:13:00 03/30/18 11:13:00 Procedure COLONOSCOPY(.) COLONOSCOPY(.) COLONOSCOPY(.) Comments Last Modified By: Paul RN, Francy Miller RN, Francy Miller RN, Francy Gregory 03/30/18 11:14:48 03/30/18 11:14:48 03/30/18 11:14:48 Entry 4 Entry 5 Case Attendee Casper GAUTAM, Colin [place], Magi Briggs Role Performed Surgeon - Primary Scrub - Other Time In 03/30/18 10:56:00 03/30/18 10:56:00 Time Out 03/30/18 11:13:00 03/30/18 11:13:00 Procedure COLONOSCOPY(.) COLONOSCOPY(.) Comments Orienting Last Modified By: Paul TREVINO, Francy Miller RN, Francy Gregory 03/30/18 11:14:48 03/30/18 11:14:48 Perioperative Protocols FT [...] (If Applicable) PreOp Antibiotic No Time Out Quincy Ojeda Jr, DO, Given Participants Paul TREVINO, Casper Toussaint MD, Colin [employer] [employer], Oliver Bess CST, Tori Time Out Complete [...] Procedure Yes Primary Surgeon Colin Shirley MD 03/30/18 10:59:00 Stop 03/30/18 11:09:00 Anesthesia Type [...] and tissue Entry 1 Skin Integrity Intact, [place], Warm, and Skin Abnormality No Dry Outcomes [...] RN Patient Status Stable Skin. Condition Intact, [place], Warm, and Dry Airway Maintenance Oxygen in Use? No Airway Device N/A Outcomes Met? Yes Last Modified By: Francy Miller RN 03/30/18 07:37:17 Post-Care Text: The patient is free from signs and symptoms of injury related to transfer/transport General Comments: Report given to PACU,RN./TE,recycling attendant Administration FT Pre-Care Text: Verifies allergies, administers prescribed medications and solutions, administers prescribed antibiotic therapy and immunizing agents as ordered, evaluates response to medications Administers prescribed medications and solutions Entry 1 Expiration Date Yes Outcomes Met? Yes Verified Last Modified By: Francy Miller RN 03/30/18 07:37:26 Post-Care Text: The patient received appropriate medication(s) safely administered during the perioperative period [facility] please see scanned medication reconcilliation form for [...] 03/30/18 11:14 Addie Oreilly CST 03/30/18 11:37 Normal [facility] Main OR PACU I Recordon Main OR PACU I Record PACU Phase I Document Type FT Summary Primary Physician: Colin Shirley MD Finalized Date/Time: 03/30/18 11:29:28 Pt. Name: RJ COLBERT.O.B./Sex: 2000 Male Med Rec #: [id number] Physician: Colin Shirley MD Financial #: [id number] Pt. Type: O Room/Bed: / Admit/Disch: 03/30/18 [...] By: Essie Guzman RN 03/30/18 11:29 Normal [facility] Main OR Preoperative Recordo n 03-30-2018 Main OR Preoperative Record Holding Area Document Type FT Summary Primary Physician: Colin Shirley MD Finalized Date/Time: 03/30/18 10:16:59 Pt. Name: RJ COLBERT/Sex: 2000 Male Med Rec #: [id number] Physician: Colin Shirley MD Financial #: [id number] Pt. Type: O Room/Bed: / Admit/Disch: 03/30/18 [...] No Patient states Yes Comment - Adult [facility]- care provider postop adult Supervision supervision available Case Cancelled in No Holding Area see comments below for reason Last Modified By: Kathleen Gómez RN 03/30/18 09:54:58 General Comments: Pt completed prep at 0540 and remained NPO/KS,RN Finalized By: Kathleen Gómez RN Document Signatures Signed By: Kathleen Gómez RN 03/30/18 10:16 Normal [facility] Patient Education - Texton 0 03-30-2018 Patient Education - Text Normal [facility] Progress Note-Physicianon Progress Note-Physician Patient: RJ COLBERT Age: 17 years Sex: Male : 2000 [...] 76 (MAR 30 10:05)Resp Rate 16 (MAR 30 11:30) 9 (MAR 30 11:20) 20 (MAR 30 10:05)SBP 122 (MAR 30 11:25) 109 (MAR 30 11:00) 127 (MAR 30 10:05)DBP 83 (MAR 30 11:25) 71 (MAR 30 11:00) 83 (MAR 30 10:05)SpO2 99 (MAR 30 11:30) 97 (MAR 30 11:25) 100 (MAR 30 11:00) Documented vital signs General: Alert and oriented, No acute distress. Respiratory: Lungs are clear to auscultation. Cardiovascular: Normal rate, Regular rhythm. Neurologic: Normal sensory. Review / Management Condition: Stable. Assessment Anesthetic outcome No anesthetic complications noted. Adequate pain relief. TOLERATING PO INTAKE. voiding w/o diff.. No Complaint of nausea and vomiting. Plan Transfer/ Discharge: Condition stable. Normal [facility] Comment on above: Result Comment: Elec tronically Signed By: Quincy Ojeda Jr, DO\Date and Time Signed: 03/30/18 11:55 EDT Vital Signs Date Time Vital Sign Value Performing Clinician Pauline mustafa 03-28-2022 11:11-0400 Body height 180.3 cm Arnold Genao MD Work Phone: [facility] 03-28-2022 11:11-0400 Body weight 90.27 kg Arnold Genao MD Work Phone: [facility] 03-28-2022 11:11-0400 Diastolic blood pressure 65 mm[Hg] Arnold Genao MD Work Phone: [facility] 03-28-2022 11:11-0400 Heart rate 80 /min Arnold Genao MD Work Phone: [facility] 03-28-2022 11:11-0400 SaO2% (BldA) [Mass fraction] 100 % Arnold Genao MD Work Phone: [facility] 03-28-2022 11:11-0400 Systolic blood pressure 108 mm[Hg] Arnold Genao MD Work Phone: [facility] Encounters Encounter Date Encounter Type Care Provider Facility Start: 01-10-2024 End: 01-10-2024 Evaluation and management of inpatient JOHN DEL ROSARIO [facility] Start: 01-09-2024 End: 01-10-2024 [facility] Start: 01-08-2024 End: 01-08-2024 Emergency department patient visit ANGEL WEISS [facility] Start: 01-07-2024 End: 01-07-2024 ambulatory ANGEL WEISS Not Available Start: 09-04-2023 ambulatory Jean Carlos Boudreaux acility:[facility] Start: 03-26-[address] DOCTOR NEGRON Facility :[facility] Start: 02-19-2023 End: 02-20-[address] DOCTOR NEGRON Facility:[facility] Start: 01-15-2023 End: 01-16-[address] [...] 03-28-2022 End: 03-28-2022 Patient encounter procedure Arnold Genao MD Work Phone: Colorectal Surgery Comment on above: Hematochezia (Primar y Dx) Start: 04-17-2018 End: 04-18-2018 Ambulatory [facility] Facility:[facility] Start: 03-30-2018 End: 03-31-2018 Ambulatory [facility] Facility:[facility] Plan of Treatment Date Care Activity Detail Author Start: 2017 Urine microalbumin profile DTAP,TDAP ,TD (1 - Tdap) [facility] Start: 2016 HEPATITIS C SCREENING HEPATITIS C SC REENING [facility] Start: 2016 HIV SCREENING HIV SCREENING [facility] Start: 2012 PEDS TO ADULT TRANSI TION ANNUAL ASSESSMENT PEDS TO ADULT TRANSITION ANNUAL ASSESSMENT [facility] Start: 2010 Adult depression scr eening assessment DEPRESSION SCREENING [facility] Start: 2010 PEDS TO ADULT TRANSI TION INITIAL DISCUSSION PEDS TO ADULT TRANSITION INITIAL DISCUSSION [facility] Start: 2009 HPV VACCINE (1 - Mal e 2-dose series) HPV VACCINE (1 - Male 2-dose series) [facility] Start: 2008 MENINGOCOCCAL B: Con electrophysiology tech based on risk (1 of 2 - Risk Bexsero 2-dose series) MENINGOCOCCAL B: Consider based on risk (1 of 2 - Risk Bexsero 2-dose series) [facility] Payers Date Payer Category Payer Medicaid [id number] 2023 Self-pay 2021 Medicaid MEDICAID [facility] MEDICAID [id number] 2021-Present [phone] [address] [place] [address] Medicaid [id number] 2018 Medicare MEDICARE MEDICAR E A AND B [id number] 2018-Present [phone] [address] [address] [place] [address] Medicare [id number] 1998 Unknown [id number] 2.16.840.1.880131.3.579.2.593 1998 Unknown [id number] 2.16.840.1.461394.3.579.2.593 1998 Unknown [id number] 2.16.840.1.497924.3.579.2.593 1998 Unknown [id number] 2.16.840.1.779136.3.579.2.593 1998 Unknown [id number] 2.16.840.1.350077.3.579.2.593 1998 Unknown [id number] 2.16.840.1.304880.3.579.2.593 1998 Unknown [id number] 2.16.840.1.538258.3.579.2.593 1998 Unknown [id number] 2.16.840.1.179249.3.579.2.593 1998 Unknown [id number] 2.16.840.1.242718.3.579.2.593 1998 Unknown [id number] 2.16.840.1.279343.3.579.2.593 1998 Unknown [id number] 2.16.840.1.839770.3.579.2.593 1998 Unknown [id number] 2.16.840.1.530170.3.579.2.593 1998 Unknown [id number] 2.16.840.1.915461.3.579.2.1259 1998 Unknown [id number] 2.16.840.1.612983.3.579.2.1286 1998 Unknown [id number] 2.16.840.1.219282.3.579.2.1286 1998 Unknown [id number] 2.16.840.1.278652.3.579.2.1286 1998 Unknown [id number] 2.16.840.1.957473.3.579.2.1286 1961 Medicaid [id number] 1961 Medicare [id number] Social History Date Type Detail Facility [facility]: [facility]-01-[facility] Start: 03-01-2015 Tobacco use and exposure Smoke less tobacco non-user [facility] Start: 03-28-2022 Alcohol intake Current non-dr shrestha of alcohol (finding) [facility] Start: 2000 Sex Assigned At Not on file [facility] Start: 03-18-2022 End: 03-28-2022 Exposure to SARS-CoV-2 (event) Not sure [facility] Clinical Notes 06-29-2021 to 03-28-2022 Telephone Encounter - Charley Mcclelland RN - 03/28/2022 4:13 PM EDTTelephone Encounter - Sara Rose ADM - 03/28/2022 3:43 PM EDTAddendum Note - Arnold Genao MD - 03/28/2022 3:11 PM EDT Note Date & Type Note Facility 03-28-2022 Miscellaneous Notes Spoke with the pharmacist and she states that she does not provide food items. She will speak with the nurse at the shelter. Pharmacy, [facility], [facility], phone , any pharmacist to clarify about carbonate? CALM is shelter able to order as food item? Please call to discuss. documented in this encounter [facility] 03-28-2022 Miscellaneous Notes Opened in error documented in this encounter [facility] 03-28-2022 Miscellaneous Notes Addended by: ARNOLD GENAO on: 03/28/2022 03:11 PM Modules accepted: Orders Addended by: CHARLEY MCCLELLAND on: 03/28/2022 02:47 PM Modules accepted: Orders documented in this encounter [facility] 03-28-2022 Note HNO ID: [id number] Author: Arnold Genao MD Service: ? Author Type: Physician Type: Progress Notes Filed: 03/28/2022 11:58 AM Note Text: COLORECTAL SURGERY March 28, 2022 Rj Colbert 21 year old Chief Complaint: hematochezia History of Present Illness: Rj Colbert is a 21 year old male presents to the office for evaluation of hematochezia. Last seen in the office on 11/16/21 with Cristal Nava AVIATION OPERATIONS SPECIALIST for follow up visit after he underwent [...] exam Anorectal: External exam reveals: see below Child Day Care Provider present: yes Assessment Assessment and Plan: Rj Colbert is a 21 year old male with straining and occasional rectal bleeding. Today, we talked about adding a magnesium supplement CALM to his regimen to decrease straining. I am of the opinion that more surgery is not the best option at this time. Arnold Genao MD Colorectal Surgery [facility] 03-28-2022 Nurse Note Calm education given for constipation. What is the reason for your visit today? Established patient presents for hematochezia. Who is your referring physician? Are you having poor oral intake? NO Have you had unintentional weight loss of 15 lbs/7 Kg in the last 3-6 months? NO Bowels: regular Wound: None Temperature: No Drains: No documented in this encounter [facility] 03-28-2022 History of Presen t illness Narrative COLORECTAL SURGERY March 28, 2022 Rj Colbert 21 year old Chief Complaint: hematochezia History of Present Illness: Rj Colbert is a 21 year old male presents to the office for evaluation of hematochezia. Last seen in the office on 11/16/21 with Cristal Nava AVIATION OPERATIONS SPECIALIST for follow up visit after he underwent [...] exam Anorectal: External exam reveals: see below Child Day Care Provider present: yes Assessment Assessment and Plan: Rj Colbert is a 21 year old male with straining and occasional rectal bleeding. Today, we talked about adding a magnesium supplement CALM to his regimen to decrease straining. I am of the opinion that more surgery is not the best option at this time. Arnold Genao MD Colorectal Surgery documented in this encounter [facility] 11-16-2021 Note HNO ID: [id number] Author: Cristal Nava APRN.FILENET DEVELOPER Service: ? Author Type: Nurse Practitioner Type: Progress Notes Filed: 11/16/2021 12:59 PM Note Text: COLORECTAL SURGERY November 16, 2021 Rj Colbert 21 year old Chief Complaint: Postop visit History of Present Illness: Rj Colbert is a 21 year old male status post ablation of internal hemorrhoids in [address] Genao on 10/17/2021.He reports doing well since procedure. [...] Anorectal: deferred Assessment Assessment and Plan: Rj Colbert is a 21 year old male patient [...] operative reports - I have discussed Rj Colbert's treatment plan and/or results with patient and POA. 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 Anesthesiologist: Michael Martínez MD WINERY CELLAR HAND: Hunter Massey APRN.WINERY CELLAR HAND Performed by: WINERY CELLAR HAND Indications and Patient Condition Preoxygenated: yes Patient position: sniffing Manual In-Line Stabilization: No Difficult Mask: No Indications for airway management: anesthesia anesthesia circuit Method: asleep Cricoid Pressure: No Final Airway Details Final airway type: supraglottic airway Number of attempts at approach: 1 Final Supraglottic Airway: i-gel Size 4 Seal Adequate: yes Airway not difficult SIGNATURE: Hunter Massey APRN.CRNA PATIENT NAME: Rj Colbert DATE: October 17, 2021 TIME: 8:54 AM CSN: [id number] [facility] 08-31-2021 Note HNO ID: [id number] Author: Arnold Genao MD Service: ? Author Type: Physician Type: Progress Notes Filed: 09/02/2021 7:18 AM Note Text: COLORECTAL SURGERY August 31, 2021 Rj Colbert 21 year old Chief Complaint: post op History of Present Illness: Rj Colbert is a 21 year old male presents [...] Anorectal: External exam reveals : see below Child Day Care Provider present: yes Assessment Assessment and Plan: Rj Colbert is a 21 year old male who is doing relatively well after his recent rubber band ligation. He still has some rectal bleeding and it is difficult to assess the exact amount. If the bleeding persists we will consider internal hemorrhoidectomy. 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 They relate that he is having around [...] (222 lb 4.8 oz) BMI 31.90 kg/m? Child Day Care Provider present: Yes Rj Colbert is a 21 year old male presents with complaint of rectal bleeding with prolapsing Grade 3 internal hemorrhoids on exam. Our plan is to perform an EUA and rubber band ligation of internal hemorrhoids at the [facility]. 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 Advance Directive(s) 07/09/2021 9:04 AM Additional Source Comments (unrecognized sect ion and content) No Status Records FoundNo Status Records FoundNo Status Records FoundNo Status Records FoundNo Status Records FoundNo Status Records FoundNo Status Records FoundNo Status Records Found INFORMATION SOURCE (unrecogn ized section and content) DATE CREATED AUTHOR 05/01/2018 Elio Ordonez [facility] DATE CREATED AUTHOR AUTHOR'S ORGANIZ ATION 10/31/2021 [facility] DATE CREATED AUTHOR AUTHOR'S ORGANIZ ATION 03/29/2022 [facility] DATE CREATED AUTHOR AUTHOR'S ORGANIZ ATION 04/04/2023 [facility] DATE CREATED AUTHOR AUTHOR'S ORGANIZ ATION 11/24/2023 [facility] DATE CREATED AUTHOR AUTHOR'S ORGANIZ ATION 01/08/2024 [facility] DATE CREATED AUTHOR AUTHOR'S ORGANIZ ATION 01/10/2024 [facility] DATE CREATED AUTHOR AUTHOR'S ORGANIZ ATION 01/14/2024 [facility] Source Comments (unrecognize d section and content) In the event this informatio n is protected by the Federal Confidentiality of Alcohol and Drug Abuse Patient Records regulations: The Federal rules restrict any use of the information to criminally investigate or prosecute any alcohol or drug abuse patient.[facility] the event this information is protected by the Federal Confidentiality of Alcohol and Drug Abuse Patient Records regulations: The Federal rules restrict any use of the information to criminally investigate or prosecute any alcohol or drug abuse patient.[facility] the event this information is protected by the Federal Confidentiality of Alcohol and Drug Abuse Patient Records regulations: The Federal rules restrict any use of the information to criminally investigate or prosecute any alcohol or drug abuse patient.[facility] Reason for Visit (unrecogniz ed section [...] BE BASED ON THE PRIMARY CLINICAL RECORDS. [employer] provides no warranty or guarantee of the accuracy or completeness of information in this document.
[2024-01-23 11:40] LABS: Hematocrit 31.4 % (42.0-54.0); Mean Corpuscular HGB Conc 25.5 g/dL (29.9-35.2); Mean Corpuscular Hemoglobin 16.3 pg (25.9-34.0); Mean Corpuscular Volume 63.8 fL (80.0-94.0); Mean Platelet Volume 9.2 fL (9.5-13.5); Platelet Count 523 10^3/uL (150-450); Red Blood Count 4.92 10^6/uL (4.70-6.10); Red Cell Distribution Width 20.3 % (11.0-15.0); White Blood Count 16.3 10^3/uL (4.0-11.0)
[2024-01-23 12:05] LABS: Lymphocytes Absolute Manual 0.81 10^3/uL (1.20-3.80); Monocytes Absolute Manual 1.79 10^3/uL (0.30-0.80); Segmented Neut Absolute Manual 13.69 10^3/uL (1.4-6.5)
[2024-01-23 12:06] LABS: Anisocytosis 2+; Hypochromasia 2+; Microcytosis 2+; Ovalocytes 2+; Poikilocytosis 2+
== END 2024-01-23 11:04 | disposition home or self-care (01) ==
LOC: LAB 11:04
PROVIDERS: PCP Family Medicine
DX: Z79.899 Other long term (current) drug therapy (principal)
CPT/HCPCS: 36415; 85007; 85027

== ENCOUNTER 2024-03-02 15:27 | Outpatient (OUT) | payer MEDICARE, MEDICAID, SELFPAY ==
[2024-03-02 16:08] LABS: Basophils Percent Auto 0.4 % (0.2-2.0); Eosinophils Absolute Auto 0.1 10^3/uL (0.0-0.7); Eosinophils Percent Auto 0.6 % (0.9-7.0); Hematocrit 31.9 % (42.0-54.0); Hemoglobin 8.3 g/dL (14.0-18.0); Immature Granulocytes Abs Auto 0.03 10^3/uL (0.00-0.03); Immature Granulocytes Pct Auto 0.3 % (0.0-0.5); Lymphocytes Absolute Auto 1.5 10^3/uL (1.2-3.8); Lymphocytes Percent Auto 15.4 % (20.5-60.0); Mean Corpuscular Hemoglobin 16.1 pg (25.9-34.0); Mean Corpuscular Volume 61.7 fL (80.0-94.0); Mean Platelet Volume 9.2 fL (9.5-13.5); Monocytes Absolute Auto 0.8 10^3/uL (0.3-0.8); Monocytes Percent Auto 8.6 % (1.7-12.0); Neutrophils Absolute Auto 7.1 10^3/uL (1.4-6.5); Neutrophils Percent Auto 74.7 % (43.0-75.0); Platelet Count 334 10^3/uL (150-450); Red Blood Count 5.17 10^6/uL (4.70-6.10); White Blood Count 9.5 10^3/uL (4.0-11.0)
== END 2024-03-02 15:28 | disposition home or self-care (01) ==
PROVIDERS: PCP Family Medicine
DX: F20.9 Schizophrenia, unspecified (principal); Z79.899 Other long term (current) drug therapy
CPT/HCPCS: 36415; 85025

== ENCOUNTER 2024-04-16 15:55 | Outpatient (OUT) | payer MEDICARE, MEDICAID, SELFPAY ==
--- OUTSIDE RECORDS SUMMARY | 2024-04-16 16:01 | XMS_ITS | CCD ---
Author Organization [facility] Care Team Providers Care Lean Facilitator Name Role Phone Salam, Shaw Unavailable Unavailable Salam, Shaw Unavailable Unavailable Salam, Shaw Unavailable Unavailable NADERER BENSON~[phone] UNKNOWN Unavailable Unavailable Salam, Shaw Unavailable Unavailable Salam, Shaw Unavailable Unavailable Salam, Shaw Unavailable Unavailable NADERER BENSON~[phone] UNKNOWN Unavailable Unavailable Unavailable Primary Care Provider Unavailabl e MISC, DR DOCTOR Attending Unavailable MISC, DR DOCTOR Admitting Unavailable MISC, DR DOCTOR Consulting Unavailable NADERER, DR ORTIZ A Primary Care Unavailable MISC, DR DOCTOR Consulting Unavailable MISC, DR DOCTOR Attending Unavailable NADERER, DR ORTIZ A Primary Care Unavailable MISC, DOCTOR Admitting Unavailable MISC, DOCTOR Attending Unavailable MISC, DOCTOR Admitting Unavailable MISC, DR DOCTOR Consulting Unavailable NADERER, DR ORTIZ A Primary Care Unavailable MISC, DR DOCTOR Attending Unavailable MISC, DR DOCTOR Admitting Unavailable MISC, DR DOCTOR Consulting Unavailable NADERER, DR ORTIZ A Primary Care Unavailable MISC, DR DOCTOR Attending Unavailable MISC, DR DOCTOR Admitting Unavailable MISC, DR DOCTOR Consulting Unavailable NADERER, DR ORTIZ A Primary Care Unavailable MISC, DR DOCTOR Consulting Unavailable NADERER, DR ORTIZ A Primary Care Unavailable MISC, DOCTOR Admitting Unavailable MISC, DR DOCTOR Attending Unavailable MISC, DOCTOR Consulting Unavailable NADERER, DR ORTIZ A Attending Unavailable NADERER, DR BENSON Gregory Admitting Unavailable NADERER, DR ORTIZ A Primary Care Unavailable MISC, DOCTOR Consulting Unavailable NADERER, DR ORTIZ A Primary Care Unavailable MISC, DOCTOR Admitting Unavailable MISC, DR DOCTOR Attending Unavailable MISC, DR DOCTOR Consulting Unavailable NADERERoxana, DR BENSON Gregory Attending Unavailable NADERER, DR BENSON Gregory Admitting Unavailable NADERER, DR BENSON Gregory Primary Care Unavailable MISC, DR VALDOVINOS Consulting Unavailable NADERER, DR BENSON Gregory Attending Unavailable NADERER, DR BENSON Gregory Admitting Unavailable NADERER, DR BENSON Gregory Primary Care Unavailable MISC, DR VALDOVINOS Consulting Unavailable NADERER, DR BENSON Gregory Primary Care Unavailable MISC, DOCTOR Admitting Unavailable MISC, DOCTOR Attending Unavailable MISC, DOCTOR Attending Unavailable MISC, DOCTOR Admitting Unavailable MISC, DOCTOR Consulting Unavailable NADERER, DR BENSON Gregory Primary Care Unavailable NADERERoxana, BENSON Attending Unavailable NADERERoxana, BENSON Primary Care Unavailable ZOË POOL Attending Unavailable Benson Weiss MD Primary Care Provider [phone] ISELA, BENSON Primary Care Unavailable TABITHA MERINO Attending Unavailable DARLINGPUSHPA Admitting Unavailable PAUL, JOHN DEL ROSARIO Attending Unavailable ISELA, BENSON Primary Care Unavailable REYNOLD KUO Attending Unavailable NADERER, BENSON Referring Unavailable NADERERoxana, BENSON Primary Care Unavailable Jean Carlos Hdez Attending Unavailab Jean Carlos Powell Admitting Unavailab le NO FAMILY, PHYSICIAN Primary Care Unavailable Allergies Allergy Classification Reported Allergen(s) Allergy Type Date of Onset Reaction(s) Facility (1 source) No Known Medication Allergies; Translations: [No Known Medication Allergies] Propensity to adverse reactions (disorder) [facility] Repository Medications Current Medications Medication Drug Class(es) Dates Sig (Normalized) Sig (Original) acetaminophen 500 mg oral tablet (4 sources) Start: 01-10-2024 take 2 tablets by mouth every six hours as needed for pain acetaminophen (TYLENOL EXTRA STRENGTH) 500 mg tablet Take 2 tablets (1,000 mg total) by mouth every 6 (six) hours as needed for pain. 30 tablet 0 01/10/2024 Active Start: 10-17-2021 take 2 tablets by mo [facility] every six hours acetaminophen (TYLENOL) 325 mg tablet Take 2 tablets by mouth every 6 hours. 0 10/17/2021 Active Comment on above: Take 2 tablets by mo [facility] every 6 hours. benztropine mesylate 2 mg oral tablet (4 sources) Anticholinergic, Antihistamine take 1 tablet by mouth in the morning, then take 1 tablet by mouth at bedtime benztropine (COGENTIN) 2 mg tablet Take 1 tablet (2 mg total) by mouth in the morning and 1 tablet (2 mg total) before bedtime. 0 Active Comment on above: Take 2 mg by mouth t wice daily. calcium polycarbophil 625 mg oral tablet (4 sources) take 1 tablet by mouth in the morning, then take 1 tablet by mouth at bedtime polycarbophil (FIBERCON) 625 mg tablet Take 1 tablet (625 mg total) by mouth in the morning and 1 tablet (625 mg total) before bedtime. 0 Active Comment on above: Take 625 mg by mouth . clonazePAM 0.5 mg oral tablet (4 sources) Benzodiazepine take 1 tablet by mouth three times daily clonazePAM (KlonoPIN) 0.5 mg tablet Take 1 tablet (0.5 mg total) by mouth 3 (three) times a day. 0 Active take 1 tablet by claribel th every twelve hours as needed clonazePAM (KLONOPIN) 1 mg tablet Take 1 mg by mouth twice daily as needed. 0 Active Comment on above: Take 1 mg by mouth t wice daily as needed. docusate sodium 100 mg oral capsule (4 sources) take 1 capsule by mouth in the morning docusate sodium (COLACE) 100 mg capsule Take 1 capsule (100 mg total) by mouth in the morning. 0 Active Comment on above: Take 100 mg by mouth twice daily. FLUoxetine 40 mg oral capsule (4 sources) Serotonin Reuptake Inhibitor take 1 capsule by mouth twice daily FLUoxetine (PROzac) 40 MG capsule Take 40 mg by mouth 2 (two) times a day. 0 Active take 1 capsule by mouth once cathy ly FLUoxetine HCl (PROZAC) 40 mg capsule Take 40 mg by mouth once daily. 0 Active Comment on above: Take 40 mg by mouth once daily. haloperidol 10 mg oral tablet (4 sources) Typical Antipsychotic take 1 tablet by mouth twice daily haloperidol (HALDOL) 10 mg tablet Take 10 mg by mouth 2 (two) times a day. 0 Active take 1 tablet by mouth four time s daily haloperidol (HALDOL) 10 mg tablet Take 10 mg by mouth four times daily. 0 Active Comment on above: Take 10 mg by mouth four times daily. ibuprofen 800 mg oral tablet (4 sources) Nonsteroidal Anti-inflammatory Drug Start: 01-16-2023 take 1 tablet by mouth every eight hours as needed for pain ibuprofen (MOTRIN) 800 mg tablet Take 1 tablet (800 mg total) by mouth every 8 (eight) hours as needed for pain. 30 tablet 0 01/16/2023 Active Start: 10-17-2021 take 2 tablets by mo [facility] every four hours as needed ibuprofen (MOTRIN) 200 mg tablet Take 2 tablets by mouth every 4 hours as needed for pain. 0 10/17/2021 Active Comment on above: Take 2 tablets by mo [facility] every 4 hours as needed for pain. loratadine 10 mg oral tablet (4 sources) take 1 tablet by mouth in the morning loratadine (CLARITIN) 10 mg tablet Take 1 tablet (10 mg total) by mouth in the morning. 0 Active Comment on above: Take 10 mg by mouth. Magnesium Carbonate powd (3 sources) Start: 03-28-20 End: 06-26-20 Magnesium Carbonate powd 4 g daily at bedtime. Used for constipation 28 g 3 03/28/2022 06/26/2022 Active Comment on above: 4 g daily at bedtime . Used for constipation risperiDONE 1 mg oral tablet (4 sources) Atypical Antipsychotic take 1 tablet by mouth twice daily risperiDONE (RisperDAL) 1 mg tablet Take 1 mg by mouth 2 (two) times a day. 0 Active Comment on above: Take 1 mg by mouth. Completed/Discontinued Medications Medication Drug Class(es) Dates Sig (Normalized) Sig (Original) cloZAPine 100 mg oral tablet (4 sources) Atypical Antipsychotic Start: 06-07-2021 cloZAPine (CLOZARIL) 100 mg tablet take 1.5 tablets by mouth once d aily cloZAPine (CLOZARIL) 200 mg tablet Take 1.5 tablets (300 mg total) by mouth nightly. 0 Active polyethylene glycol 3350 51269 mg powder for oral solution (4 sources) Osmotic Laxative Start: 06-02-2018 take 1 dose by mouth once daily polyethylene glycol 3350 (MIRALAX) 17 gram packet Indications: Rectal ulcer Take 1 Packet by mouth once daily. 30 Packet 5 06/02/2018 Active polyethylene gly col (GLYCOLAX) 17 gram packet Take 17 g by mouth in the morning. 0 Active Comment on above: [facility] Problems Active Problems Problem Classification Problem Date Documented Da te Episodic/Chronic Anal and rectal conditions (6 sources) Rectal prolapse; Translations: [Rectal pain] Onset: 01-08-2024 01-26-2024 Episodic Gastrointestinal hemorrhage (1 source) Blood-tinged feces; Translations: [Melena] Episodic Other aftercare (4 sources) Other parts counterman (current) drug therapy; Translations: [OTH DIRECTOR OF ONLINE MERCHANDISING CURRENT DRUG THERAPY] Onset: 02-19-2023 Episodic Schizophrenia and other psychotic disorders (3 sources) Schizophrenia; Translations: [Schizophrenia, unspecified] Onset: 07-10-2021 07-10-2021 Chronic Unclassified (1 source) Bowel Issue Onset: 01-08-2024 Unclassified (1 source) Post-op Onset: 01-26-2024 Unclassified (1 source) Medical Problem Onset: 01-09-2024 [...] Anion gap [Moles/Vol] 8 mmol/L Normal 5-15 [facility] Comment on above: Performed By: #### C ANDRES BRYANT, 99846-0 #### [facility] ([id number]) [address], [address] [place] [address] Calcium [Mass/Vol] 8.5 mg/dL Normal 8.5-10.5 [facility] Comment on above: Performed By: #### C MANNY BMP, 32051-8 #### [facility] ([id number]) [address], [address] [place] [address] Chloride [Moles/Vol] 106 mmol/L Normal 98-109 [facility] Comment on above: Performed By: #### C MANNY BMP, 84662-5 #### [facility] ([id number]) [address], [address] [place] [address] CO2 [Moles/Vol] 28 mmol/L Normal 22-32 [facility] Comment on above: Performed By: #### C ANDRES BRYANT, #### [facility] ([id number]) [address], [address] [place] [address] Creatinine [Mass/Vol] 0.93 mg/dL Normal 0.60-1.30 [facility] Comment on above: Result Comment: METH OD TRACEABLE TO IDMS STANDARD Performed By: #### C ANDRES BRYANT, #### [facility] ([id number]) [address], [address] [place] [address] eGFR (CKD-EPI) NON-RACE DEPENDENT >90 Normal >59 [facility] Comment on above: Result Comment: Reported eGFR is based on the CKD-EPI 2020 equation that does not use a race coefficient. Performed By: #### C ANDRES BRYANT, #### [facility] ([id number]) [address], [address] [place] [address] Glucose [Mass/Vol] 87 mg/dL Normal 65-99 [facility] Comment on above: Performed By: #### C ANDRES BRYANT, #### [facility] ([id number]) [address], [address] [place] [address] Potassium [Moles/Vol] 3.9 mmol/L Normal 3.5-5.0 [facility] Comment on above: Performed By: #### C ANDRES BRYANT, #### [facility] ([id number]) [address], [address] [place] [address] Sodium [Moles/Vol] 142 mmol/L Normal 134-146 [facility] Comment on above: Performed By: #### C ANDRES BRYANT, #### [facility] ([id number]) [address], [address] [place] [address] Urea nitrogen [Mass/Vol] 13 mg/dL Normal 5-23 [facility] Comment on above: Performed By: #### C ANDRES BRYANT, #### [facility] ([id number]) [address], [address] [place] [address] CBC AND AUTO DIFFon 01-10-20 24 ABSOLUTE BASOPHIL 0.0 X10E9/L Normal 0.0-0.2 [facility] Comment on above: Performed By: #### ANDRES Briggs BCA, #### [facility] ([id number]) [address], [facility] [address] [place] [address] ABSOLUTE NEUTROPHIL 7.9 X10E9/L High 1.5-6.6 [facility] Comment on above: Performed By: #### ANDRES Briggs BCA, #### [facility] ([id number]) [address], [address] [place] [address] Basophils/100 WBC (Bld) 0.2 % Normal [facility] Comment on above: Performed By: #### ANDRES Briggs BCA, #### [facility] ([id number]) [address], [address] [place] [address] Eosinophils (Bld) [#/Vol] 0.0 10*3/uL Normal 0.0-0.4 [facility] Comment on above: Performed By: #### ANDRES Briggs BCA, #### [facility] ([id number]) [address], [address] [place] [address] Eosinophils/100 WBC (Bld) 0.2 % Normal [facility] Comment on above: Performed By: #### ANDRES Briggs BCA, #### [facility] ([id number]) [address], [address] [place] [address] Erythrocyte distribution width (RBC) [Ratio] 20.7 % High 11.5-15.0 [facility] Comment on above: Performed By: #### ANDRES Briggs BCA, #### [facility] ([id number]) [address], [address] [place] [address] FRAGMENT 1+ Abnormal NONE [facility] Comment on above: Performed By: #### ANDRES Briggs BCA, #### [facility] ([id number]) [address], [address] [place] [address] Hematocrit (Bld) [Volume fraction] 30.0 % Low 39-49 [facility] Comment on above: Performed By: #### ANDRES Briggs BCA, #### [facility] ([id number]) [address], [address] [place] [address] Hemoglobin (Bld) [Mass/Vol] 8.7 g/dL Low 13.0-17.0 [facility] Comment on above: Performed By: #### ANDRES Briggs BCA, #### [facility] ([id number]) [address], [address] [place] [address] HYPOCHROMIA 2+ Abnormal NONE [facility] Comment on above: Performed By: #### ANDRES Briggs BCA, #### [facility] ([id number]) [address], [address] [place] [address] Lymphocytes (Bld) [#/Vol] 2.6 10*3/uL Normal 1.0-3.5 [facility] Comment on above: Performed By: #### ANDRES Briggs BCA, #### [facility] ([id number]) [address], [address] [place] [address] Lymphocytes/100 WBC (Bld) 22.1 % Normal [facility] Comment on above: Performed By: #### ANDRES Briggs BCA, #### [facility] ([id number]) [address], [address] [place] [address] MCH (RBC) [Entitic mass] 16.7 pg Low 27-34 [facility] Comment on above: Performed By: #### C MANNY, BMP, #### [facility] ([id number]) [address], [address] [place] [address] MCHC (RBC) [Mass/Vol] 29.1 g/dL Low 32-36 [facility] Comment on above: Performed By: #### Brigitte BRYANT, BMP, #### [facility] ([id number]) [address], [address] [place] [address] MCV (RBC) [Entitic vol] 58 fL Low 80-100 [facility] Comment on above: Performed By: #### Brigitte BRYANT BMP, #### [facility] ([id number]) [address], [address] [place] [address] Monocytes (Bld) [#/Vol] 1.3 10*3/uL High 0-0.9 [facility] Comment on above: Performed By: #### Brigitte BRYANT BMP, #### [facility] ([id number]) [address], [address] [place] [address] Monocytes/100 WBC (Bld) 11.2 % Normal [facility] Comment on above: Performed By: #### Brigitte BRYANT, BMP, #### [facility] ([id number]) [address], [address] [place] [address] Neutrophils/100 WBC (Bld) 66.3 % Normal [facility] Comment on above: Performed By: #### Brigitte BRYANT, BMP, #### [facility] ([id number]) [address], [address] [place] [address] OVALOCYTE 2+ Abnormal NONE [facility] Comment on above: Performed By: #### ANDRES Briggs BCA, #### [facility] ([id number]) [address], [address] [place] [address] Platelet mean volume (Bld) [Entitic vol] 8.7 fL Normal 7-12 [facility] Comment on above: Performed By: #### ANDRES Briggs BCA, #### [facility] ([id number]) [address], [address] [place] [address] Platelets (Bld) [#/Vol] 326 10*3/uL Normal 150-450 [facility] Comment on above: Performed By: #### ANDRES Briggs BCA, #### [facility] ([id number]) [address], [address] [place] [address] RBC COUNT 5.21 X10E12/L Normal 4.10-5.70 [facility] Comment on above: Performed By: #### ANDRES Briggs BCA, #### [facility] ([id number]) [address], [address] [place] [address] WBC (Bld) [#/Vol] 11.9 10*3/uL High 4.0-11.0 [facility] Comment on above: Performed By: #### ANDRES Briggs BCA, #### [facility] ([id number]) [address], [address] [place] [address] MAGNESIUMon 01-10-2024 Magnesium [Mass/Vol] 2.0 mg/dL Normal 1.8-2.6 [facility] Comment on above: Performed By: #### ANDRES Briggs BCA, #### [facility] ([id number]) [address], [address] [place] [address] BASIC METABOLIC PANLon 01-08 Anion gap [Moles/Vol] 9 mmol/L Normal 5-15 [facility] Comment on above: Performed By: #### C ANDRES BRYANT, #### [facility] ([id number]) [address], [address] [place] [address] Calcium [Mass/Vol] 8.8 mg/dL Normal 8.5-10.5 [facility] Comment on above: Performed By: #### C MANNY BMP, #### [facility] ([id number]) [address], [address] [place] [address] Chloride [Moles/Vol] 107 mmol/L Normal 98-109 [facility] Comment on above: Performed By: #### C MANNY BMP, #### [facility] ([id number]) [address], [address] [place] [address] CO2 [Moles/Vol] 25 mmol/L Normal 22-32 [facility] Comment on above: Performed By: #### C MANNY BMP, #### [facility] ([id number]) [address], [address] [place] [address] Creatinine [Mass/Vol] 0.96 mg/dL Normal 0.60-1.30 [facility] Comment on above: Result Comment: METH OD TRACEABLE TO IDMS STANDARD Performed By: #### C MANNY BMP, #### [facility] ([id number]) [address], [address] [place] [address] eGFR (CKD-EPI) NON-RACE DEPENDENT >90 Normal >59 [facility] Comment on above: Result Comment: Reported eGFR is based on the CKD-EPI 2020 equation that does not use a race coefficient. Performed By: #### C MANNY, BMP, #### [facility] ([id number]) [address], [address] [place] [address] Glucose [Mass/Vol] 117 mg/dL High 65-99 [facility] Comment on above: Performed By: #### ANDRES Briggs BCA, #### [facility] ([id number]) [address], [address] [place] [address] Potassium [Moles/Vol] 4.5 mmol/L Normal 3.5-5.0 [facility] Comment on above: Performed By: #### ANDRES Briggs BCA, #### [facility] ([id number]) [address], [facility] [address] [place] [address] Sodium [Moles/Vol] 141 mmol/L Normal 134-146 [facility] Comment on above: Performed By: #### ANDRES Briggs BCA, #### [facility] ([id number]) [address], [facility] [address] [place] [address] Urea nitrogen [Mass/Vol] 19 mg/dL Normal 5-23 [facility] Comment on above: Performed By: #### ANDRES Briggs BCA, #### [facility] ([id number]) [address], [facility] [address] [place] [address] CBC AND AUTO DIFFon 15-20 24 ACANTHOCYTE 2+ Abnormal NONE [facility] Comment on above: Performed By: #### ANDRES Briggs BCA, #### [facility] ([id number]) [address], [facility] [address] [place] [address] Erythrocyte distribution width (RBC) [Ratio] 21.0 % High 11.5-15.0 [facility] Comment on above: Performed By: #### ANDRES Briggs BCA, #### [facility] ([id number]) [address], [facility] [address] [place] [address] FRAGMENT 1+ Abnormal NONE [facility] Comment on above: Performed By: #### ANDRES Briggs BCA, #### [facility] ([id number]) [address], [address] [place] [address] Hematocrit (Bld) [Volume fraction] 32.9 % Low 39-49 [facility] Comment on above: Performed By: #### C ANDRES BRYANT, #### [facility] ([id number]) [address], [address] [place] [address] Hemoglobin (Bld) [Mass/Vol] 9.4 g/dL Low 13.0-17.0 [facility] Comment on above: Performed By: #### ANDRES Briggs BCA, #### [facility] ([id number]) [address], [address] [place] [address] HYPOCHROMIA 2+ Abnormal NONE [facility] Comment on above: Performed By: #### ANDRES Briggs BCA, #### [facility] ([id number]) [address], [address] [place] [address] Lymphocytes (Bld) [#/Vol] 0.6 10*3/uL Low 1.0-3.5 [facility] Comment on above: Performed By: #### ANDRES Briggs BCA, #### [facility] ([id number]) [address], [address] [place] [address] Lymphocytes/100 WBC (Bld) 4.0 % Normal [facility] Comment on above: Performed By: #### ANDRES Briggs BCA, #### [facility] ([id number]) [address], [address] [place] [address] MCH (RBC) [Entitic mass] 16.4 pg Low 27-34 [facility] Comment on above: Performed By: #### Brigitte BRYANT BMP, #### [facility] ([id number]) [address], [address] [place] [address] MCHC (RBC) [Mass/Vol] 28.6 g/dL Low 32-36 [facility] Comment on above: Performed By: #### ANDRES Briggs BCA, #### [facility] ([id number]) [address], [address] [place] [address] MCV (RBC) [Entitic vol] 57 fL Low 80-100 [facility] Comment on above: Performed By: #### ANDRES Briggs BCA, #### [facility] ([id number]) [address], [address] [place] [address] Monocytes (Bld) [#/Vol] 0.5 10*3/uL Normal 0-0.9 [facility] Comment on above: Performed By: #### ANDRES Briggs BCA, #### [facility] ([id number]) [address], [address] [place] [address] Monocytes/100 WBC (Bld) 3.0 % Normal [facility] Comment on above: Performed By: #### ANDRES Briggs BCA, #### [facility] ([id number]) [address], [address] [place] [address] Neutrophils (Bld) [#/Vol] 14.5 10*3/uL High 1.5-6.6 [facility] Comment on above: Performed By: #### ANDRES Briggs BCA, #### [facility] ([id number]) [address], [address] [place] [address] OVALOCYTE 2+ Abnormal NONE [facility] Comment on above: Performed By: #### ANDRES Briggs BCA, #### [facility] ([id number]) [address], [address] [place] [address] Platelet mean volume (Bld) [Entitic vol] 8.7 fL Normal 7-12 [facility] Comment on above: Performed By: #### Brigitte BRYANT, BMP, #### [facility] ([id number]) [address], [address] [place] [address] Platelets (Bld) [#/Vol] 347 10*3/uL Normal 150-450 [facility] Comment on above: Performed By: #### Brigitte BRYANT, BMP, #### [facility] ([id number]) [address], [address] [place] [address] POLYCHROMASIA 1+ Abnormal NONE [facility] Comment on above: Performed By: #### Brigitte BRYANT, BMP, #### [facility] ([id number]) [address], [address] [place] [address] RBC COUNT 5.76 X10E12/L High 4.10-5.70 [facility] Comment on above: Performed By: #### Brigitte BRYANT, BMP, #### [facility] ([id number]) [address], [address] [place] [address] SEG NEUTROPHIL 93.0 % Normal [facility] Comment on above: Performed By: #### Brigitte BRYANT, BMP, #### [facility] ([id number]) [address], [address] [place] [address] TEARDROP 1+ Abnormal NONE [facility] Comment on above: Performed By: #### Brigitte BRYANT, BMP, #### [facility] ([id number]) [address], [address] [place] [address] WBC (Bld) [#/Vol] 15.6 10*3/uL High 4.0-11.0 [facility] Comment on above: Performed By: #### Brigitte BRYANT, BMP, #### [facility] ([id number]) [address], [address] [place] [address] MAGNESIUMon 01-09-2024 Magnesium [Mass/Vol] 2.0 mg/dL Normal 1.8-2.6 [facility] Comment on above: Performed By: #### C [facility], [facility], 62494-2 #### [facility] ([id number]) [address] [place] [address] Surgical Pathologyon 024 Surgical Pathology Normal [facility] Comment on above: Result Comment: [facility] [address] [place] [address] Surgical Pathology Consultation Patient Name:SASCHA COLBERTMDOB:2000 (Age: 23)Gender:MTaken:01/09/2024eported:01/13/2024hysician(s):Pushpa Silva MD ([phone])Copy To: Rec. #:[id number]: #[id number] Final Pathologic Diagnosis Rectosigmoidectomy: Mucosal ischemic change with superficial mucosal necrosis, acute inflammation, hyalinization of lamina propria and atrophic crypts. Strands of smooth muscle extending into lamina propria with surface erosion compatible with prolapse changes. No malignancy identified. Report Electronically Signed Out formerly [facility]/01/13/2024Suangelita Cortze M.D. [place] [address], License number: [id number]. Clinical History Rectal prolapse, ischemic rectum. Gross [...] sections of proximal margin G edematous wall (7,ss,J32-38144, m1) . /01/09/2024 Specimen(s) Received Rectum and sigmoid Fee Codes(s): 1; 90234 CBC AND AUTO DIFFon 01-08-20 24 ABSOLUTE BASOPHIL 0.1 X10E9/L Normal 0.0-0.2 [facility] Comment on above: Performed By: #### P INR, 28397-2, CMP, CBCA #### [facility] ([id number]) [address] [place] [address] ABSOLUTE NEUTROPHIL 14.8 X10E9/L High 1.5-6.6 [facility] Comment on above: Performed By: #### P INR, 37332-4, CMP, CBCA #### [facility] ([id number]) [address] [place] [address] 69480 Basophils/100 WBC (Bld) 0.3 % Normal [facility] Comment on above: Performed By: #### P INR, 01485-8, CMP, CBCA #### [facility] ([id number]) [address] [place] [address]182 Eosinophils (Bld) [#/Vol] 0.0 10*3/uL Normal 0.0-0.4 [facility] Comment on above: Performed By: #### P INR, 53665-3, CMP, CBCA #### [facility] ([id number]) [address] [place] [address] Eosinophils/100 WBC (Bld) 0.0 % Normal [facility] Comment on above: Performed By: #### P INR, 21601-7, CMP, CBCA #### [facility] ([id number]) [address] [place] [address] Erythrocyte distribution width (RBC) [Ratio] 20.9 % High 11.5-15.0 [facility] Comment on above: Performed By: #### P INR, 98457-9, CMP, CBCA #### [facility] ([id number]) [address] [place] [address] 84542 Hematocrit (Bld) [Volume fraction] 33.4 % Low 39-49 [facility] Comment on above: Performed By: #### P INR, 22665-9, CMP, CBCA #### [facility] ([id number]) [address] [place] [address] Hemoglobin (Bld) [Mass/Vol] 9.5 g/dL Low 13.0-17.0 [facility] Comment on above: Performed By: #### P INR, 79791-3, CMP, CBCA #### [facility] ([id number]) [address] [place] [address] 21649 Lymphocytes (Bld) [#/Vol] 0.4 10*3/uL Low 1.0-3.5 [facility] Comment on above: Performed By: #### P INR, 13626-9, CMP, CBCA #### [facility] ([id number]) [address] [place] [address] 95009 Lymphocytes/100 WBC (Bld) 2.6 % Normal [facility] Comment on above: Performed By: #### P INR, 77213-5, CMP, CBCA #### [facility] ([id number]) [address] [place] [address] 02810 MCH (RBC) [Entitic mass] 16.4 pg Low 27-34 [facility] Comment on above: Performed By: #### P INR, 39479-7, CMP, CBCA #### [facility] ([id number]) [address] [place] [address] 73205 MCHC (RBC) [Mass/Vol] 28.6 g/dL Low 32-36 [facility] Comment on above: Performed By: #### P INR, 50407-1, CMP, CBCA #### [facility] ([id number]) [address] [place] [address] 66305 MCV (RBC) [Entitic vol] 58 fL Low 80-100 [facility] Comment on above: Performed By: #### P INR, 27075-3, CMP, CBCA #### [facility] ([id number]) [address] [place] [address] 28812 Monocytes (Bld) [#/Vol] 1.4 10*3/uL High 0-0.9 [facility] Comment on above: Performed By: #### P INR, 88259-7, CMP, CBCA #### [facility] ([id number]) [address] [place] [address] 33376 Monocytes/100 WBC (Bld) 8.5 % Normal [facility] Comment on above: Performed By: #### P INR, 18263-6, CMP, CBCA #### [facility] ([id number]) [address] [place] [address] 12538 Neutrophils/100 WBC (Bld) 88.6 % Normal [facility] Comment on above: Performed By: #### P INR, 16767-6, CMP, CBCA #### [facility] ([id number]) [address] [place] [address] 27682 Platelet mean volume (Bld) [Entitic vol] 8.7 fL Normal 7-12 [facility] Comment on above: Performed By: #### P INR, 66069-6, CMP, CBCA #### [facility] ([id number]) [address] [place] [address] 54743 Platelets (Bld) [#/Vol] 366 10*3/uL Normal 150-450 [facility] Comment on above: Performed By: #### P INR, 77650-7, CMP, CBCA #### [facility] ([id number]) [address] [place] [address] 98005 RBC COUNT 5.81 X10E12/L High 4.10-5.70 [facility] Comment on above: Performed By: #### P INR, 46037-7, CMP, CBCA #### [facility] ([id number]) [address] [place] [address] 62452 WBC (Bld) [#/Vol] 16.7 10*3/uL High 4.0-11.0 [facility] Comment on above: Performed By: #### P INR, 81687-7, CMP, CBCA #### [facility] ([id number]) [address] [place] [address] 10060 COMPREHENSIVE METABOLIC PANE Angel 01-08-2024 Albumin [Mass/Vol] 4.3 g/dL Normal 3.2-5.3 [facility] Comment on above: Performed By: #### P INR, 66837-0, CMP, CBCA #### [facility] ([id number]) [address] [place] [address] 86811 ALP [Catalytic activity/Vol] 67 U/L Normal 39-130 [facility] Comment on above: Performed By: #### P INR, 83876-9, CMP, CBCA #### [facility] ([id number]) [address] [place] [address] 11353 ALT [Catalytic activity/Vol] 19 U/L Normal 0-40 [facility] Comment on above: Performed By: #### P INR, 45660-0, CMP, CBCA #### [facility] ([id number]) [address] [place] [address] 06316 Anion gap [Moles/Vol] 6 mmol/L Normal 5-15 [facility] Comment on above: Performed By: #### P INR, 31278-6, CMP, CBCA #### [facility] ([id number]) [address] [place] [address] 24193 AST [Catalytic activity/Vol] 26 U/L Normal 0-41 [facility] Comment on above: Performed By: #### P INR, 85809-9, CMP, CBCA #### [facility] ([id number]) [address] [place] [address] 11934 Bilirubin [Mass/Vol] 0.5 mg/dL Normal 0.3-1.2 [facility] Comment on above: Performed By: #### P INR, 66556-2, CMP, CBCA #### [facility] ([id number]) [address] [place] [address] 19500 Calcium [Mass/Vol] 8.8 mg/dL Normal 8.5-10.5 [facility] Comment on above: Performed By: #### P INR, 39318-8, CMP, CBCA #### [facility] ([id number]) [address] [place] [address] 54086 Chloride [Moles/Vol] 102 mmol/L Normal 98-109 [facility] Comment on above: Performed By: #### P INR, 18608-7, CMP, CBCA #### [facility] ([id number]) [address] [place] [address] 66459 CO2 [Moles/Vol] 23 mmol/L Normal 22-32 [facility] Comment on above: Performed By: #### P INR, 44446-0, CMP, CBCA #### [facility] ([id number]) [address] [place] [address] 82329 Creatinine [Mass/Vol] 1.03 mg/dL Normal 0.70-1.20 [facility] Comment on above: Result Comment: METH OD TRACEABLE TO IDMS STANDARD Performed By: #### P INR, 15924-7, CMP, CBCA #### [facility] ([id number]) [address] [place] [address] 26759 eGFR (CKD-EPI) NON-RACE DEPENDENT >90 Normal >59 [facility] Comment on above: Result Comment: Reported eGFR is based on the CKD-EPI 2020 equation that does not use a race coefficient. Performed By: #### P INR, 04369-7, CMP, CBCA #### [facility] ([id number]) [address] [place] [address] 89055 Glucose [Mass/Vol] 114 mg/dL High 65-99 [facility] Comment on above: Performed By: #### P INR, 22323-0, CMP, CBCA #### [facility] ([id number]) [address] [place] [address] 55120 Potassium [Moles/Vol] 4.0 mmol/L Normal 3.5-5.0 [facility] Comment on above: Performed By: #### P INR, 79839-9, CMP, CBCA #### [facility] ([id number]) [address] [place] [address] 85628 Protein [Mass/Vol] 6.9 g/dL Normal 6.0-8.0 [facility] Comment on above: Performed By: #### P INR, 62315-6, CMP, CBCA #### [facility] ([id number]) [address] [place] [address] 33045 Sodium [Moles/Vol] 131 mmol/L Low 134-146 [facility] Comment on above: Performed By: #### P INR, 42341-6, CMP, CBCA #### [facility] ([id number]) [address] [place] [address] 87677 Urea nitrogen [Mass/Vol] 17 mg/dL Normal 5-23 [facility] Comment on above: Performed By: #### P INR, 90586-9, CMP, CBCA #### [facility] ([id number]) [address] [place] [address] 60866 PROTIME AND INRon 01-08-2024 INR Coag (PPP) [Relative time] 1.0 {INR} Normal 0.8-1.1 [facility] Comment on above: Performed By: #### P INR, 38164-4, CMP, CBCA #### [facility] ([id number]) [address] [place] [address] 11151 PT Coag (PPP) [Time] 12.0 s Normal 9.8-13.2 [facility] Comment on above: Result Comment: NEW REFERENCE RANGE Performed By: #### P INR, 28556-7, CMP, CBCA #### [facility] ([id number]) [address] [place] [address] 03501 aPTT Coag (PPP) [Time]on aPTT Coag (Bld) [Time] 37 s Normal 26-37 [facility] Comment on above: Result Comment: NEW REFERENCE RANGE Performed By: #### P INR, 98602-9, CMP, CBCA #### [facility] ([id number]) [address] [place] [address] 10586 CBC AUTO DIFFon 03-26-2023 BASO # 0.0 103/ul Normal 0.0-0.1 [facility] Comment on above: Performed By: #### C BC #### [facility] [address] [address] [address] Sonido Bejarano Basophils/100 WBC (Bld) 0.7 % Normal 0.2-2.0 [facility] Comment on above: Performed By: #### C BC #### [facility] [address] [place] [address] Dr. Sonido Bejarano EO # 0.1 103/ul Normal 0.0-0.7 [facility] Comment on above: Performed By: #### C BC #### [facility] [address] [place] [address] Dr. Sonido Bejarano Eosinophils/100 WBC (Bld) 1.0 % Normal 0.9-7.0 [facility] Comment on above: Performed By: #### C BC #### [facility] [address] [place] [address] Dr. Sonido Bejarano Erythrocyte distribution width (RBC) [Ratio] 22.3 % Critically high 11.0-15.0 [facility] Comment on above: Performed By: #### C BC #### [facility] [address] [place] [address] Dr. Sonido Bejarano Hematocrit (Bld) [Volume fraction] 32.0 % Critically low 42.0-54.0 [facility] Comment on above: Performed By: #### C BC #### [facility] [address] [place] [address] Dr. Sonido Bejarano Hemoglobin (Bld) [Mass/Vol] 8.3 g/dL Critically low 14.0-18.0 [facility] Comment on above: Performed By: #### C BC #### [facility] [address] [place] [address] Dr. Sonido Bejarano IG # 0.01 10e3/ul Normal 0.00-0.03 [facility] Comment on above: Performed By: #### C BC #### [facility] [address] [place] [address] Dr. Sonido Bejarano IG % 0.2 % Normal 0.0-0.5 [facility] Comment on above: Performed By: #### C BC #### [facility] [address] [place] [address] Dr. Sonido Bejarano LYMPH # 1.2 103/ul Normal 1.2-3.8 [facility] Comment on above: Performed By: #### C BC #### [facility] [address] [place] [address] Dr. Sonido Bejarano Lymphocytes/100 WBC (Bld) 20.1 % Critically low 20.5-60.0 [facility] Comment on above: Performed By: #### C BC #### [facility] [address] [place] [address] Dr. Sonido Bejarano MANUAL DIFF REQ NO Normal [facility] Comment on above: Performed By: #### C BC #### [facility] [address] [place] [address] Dr. Sonido Bejarano MCH (RBC) [Entitic mass] 15.7 pg Critically low 25.9-34.0 [facility] Comment on above: Performed By: #### C BC #### [facility] [address] [place] [address] Dr. Sonido Bejarano MCHC (RBC) [Mass/Vol] 25.9 g/dL Critically low 29.9-35.2 [facility] Comment on above: Performed By: #### C BC #### [facility] [address] [place] [address] Dr. Sonido Bejarano MCV (RBC) [Entitic vol] 60.6 fL Critically low 80.0-94.0 [facility] Comment on above: Performed By: #### C BC #### [facility] [address] [place] [address] Dr. Sonido Bejarano MONO # 0.7 103/ul Normal 0.3-0.8 [facility] Comment on above: Performed By: #### C BC #### [facility] [address] [place] [address] Dr. Sonido Bejarano Monocytes/100 WBC (Bld) 12.2 % Critically high 1.7-12.0 [facility] Comment on above: Performed By: #### C BC #### [facility] [address] [place] [address] Dr. Sonido Bejarano NEUT # 3.8 103/ul Normal 1.4-6.5 [facility] Comment on above: Performed By: #### C BC #### [facility] [address] [place] [address] Dr. Sonido Bejarano Neutrophils/100 WBC (Bld) 65.8 % Normal 43.0-75.0 [facility] Comment on above: Performed By: #### C BC #### [facility] [address] [place] [address] Dr. Sonido Bejarano Platelet mean volume (Bld) [Entitic vol] 9.2 fL Critically low 9.5-13.5 [facility] Comment on above: Performed By: #### C BC #### [facility] [address] [place] [address] Dr. Sonido Bejarano PLT 369 103/ul Normal 150-450 [facility] Comment on above: Performed By: #### C BC #### [facility] [address] [place] [address] Dr. Sonido Bejarano RBC 5.28 106/ul Normal 4.70-6.10 [facility] Comment on above: Performed By: #### C BC #### [facility] [address] [place] [address] Dr. Sonido Bejarano WBC 5.8 103/ul Normal 4.0-11.0 [facility] Comment on above: Performed By: #### C BC #### [facility] [address] [place] [address] Dr. Sonido Bejarano CBC AUTO DIFFon 02-19-2023 BASO # 0.0 103/ul Normal 0.0-0.1 [facility] Comment on above: Performed By: #### C BC #### [facility] [address] [place] [address] Dr. Sonido Bejarano Basophils/100 WBC (Bld) 0.7 % Normal 0.2-2.0 [facility] Comment on above: Performed By: #### C BC #### [facility] [address] [place] [address] Dr. Sonido Bejarano EO # 0.1 103/ul Normal 0.0-0.7 [facility] Comment on above: Performed By: #### C BC #### [facility] [address] [place] [address] Dr. Sonido Bejarano Eosinophils/100 WBC (Bld) 1.1 % Normal 0.9-7.0 [facility] Comment on above: Performed By: #### C BC #### [facility] [address] [place] [address] Dr. Sonido Bejarano Erythrocyte distribution width (RBC) [Ratio] 22.7 % Critically high 11.0-15.0 [facility] Comment on above: Performed By: #### C BC #### [facility] [address] [place] [address] Dr. Sonido Bejarano Hematocrit (Bld) [Volume fraction] 32.9 % Critically low 42.0-54.0 [facility] Comment on above: Performed By: #### C BC #### [facility] [address] [place] [address] Dr. Sonido Bejarano Hemoglobin (Bld) [Mass/Vol] 8.2 g/dL Critically low 14.0-18.0 [facility] Comment on above: Performed By: #### C BC #### [facility] [address] [place] [address] Dr. Sonido Bejarano IG # 0.02 10e3/ul Normal 0.00-0.03 [facility] Comment on above: Performed By: #### C BC #### [facility] [address] [place] [address] Dr. Sonido Bejarano IG % 0.3 % Normal 0.0-0.5 [facility] Comment on above: Performed By: #### C BC #### [facility] [address] [place] [address] Dr. Sonido Bejarano LYMPH # 1.4 103/ul Normal 1.2-3.8 [facility] Comment on above: Performed By: #### C BC #### [facility] [address] [place] [address] Dr. Sonido Bejarano Lymphocytes/100 WBC (Bld) 22.8 % Normal 20.5-60.0 [facility] Comment on above: Performed By: #### C BC #### [facility] [address] [place] [address] Dr. Sonido Bejarano MANUAL DIFF REQ NO Normal [facility] Comment on above: Performed By: #### C BC #### [facility] [address] [place] [address] Dr. Sonido Bejarano MCH (RBC) [Entitic mass] 15.3 pg Critically low 25.9-34.0 [facility] Comment on above: Performed By: #### C BC #### [facility] [address] [place] [address] Dr. Sonido Bejarano MCHC (RBC) [Mass/Vol] 24.9 g/dL Critically low 29.9-35.2 [facility] Comment on above: Performed By: #### C BC #### [facility] [address] [place] [address] Dr. Sonido Bejarano MCV (RBC) [Entitic vol] 61.3 fL Critically low 80.0-94.0 [facility] Comment on above: Performed By: #### C BC #### [facility] [address] [place] [address] Dr. Sonido Bejarano MONO # 0.7 103/ul Normal 0.3-0.8 [facility] Comment on above: Performed By: #### C BC #### [facility] [address] [place] [address] Dr. Sonido Bejarano Monocytes/100 WBC (Bld) 11.6 % Normal 1.7-12.0 [facility] Comment on above: Performed By: #### C BC #### [facility] [address] [place] [address] Dr. Sonido Bejarano NEUT # 3.9 103/ul Normal 1.4-6.5 [facility] Comment on above: Performed By: #### C BC #### [facility] [address] [place] [address] Dr. Sonido Bejarano Neutrophils/100 WBC (Bld) 63.5 % Normal 43.0-75.0 [facility] Comment on above: Performed By: #### C BC #### [facility] [address] [place] [address] Dr. Sonido Bejarano Platelet mean volume (Bld) [Entitic vol] 9.3 fL Critically low 9.5-13.5 [facility] Comment on above: Performed By: #### C BC #### [facility] [address] [place] [address] Dr. Sonido Bejarano PLT 394 103/ul Normal 150-450 [facility] Comment on above: Performed By: #### C BC #### [facility] [address] [place] [address] Dr. Sonido Bejarano RBC 5.37 106/ul Normal 4.70-6.10 [facility] Comment on above: Performed By: #### C BC #### [facility] [address] [place] [address] Dr. Sonido Bejarano WBC 6.1 103/ul Normal 4.0-11.0 [facility] Comment on above: Performed By: #### C BC #### [facility] [address] [place] [address] Dr. Sonido Bejarano CBC AUTO DIFFon 01-15-2023 BASO # 0.0 103/ul Normal 0.0-0.1 [facility] Comment on above: Performed By: #### C BC #### [facility] [address] [place] [address] Dr. Sonido Bejarano Basophils/100 WBC (Bld) 0.3 % Normal 0.2-2.0 [facility] Comment on above: Performed By: #### C BC #### [facility] [address] [place] [address] Dr. Sonido Bejarano EO # 0.0 103/ul Normal 0.0-0.7 [facility] Comment on above: Performed By: #### C BC #### [facility] [address] [place] [address] Dr. Sonido Bejarano Eosinophils/100 WBC (Bld) 0.4 % Critically low 0.9-7.0 [facility] Comment on above: Performed By: #### C BC #### [facility] [address] [place] [address] Dr. Sonido Bejarano Erythrocyte distribution width (RBC) [Ratio] 22.4 % Critically high 11.0-15.0 [facility] Comment on above: Performed By: #### C BC #### [facility] [address] [place] [address] Dr. Sonido Bejarano Hematocrit (Bld) [Volume fraction] 31.5 % Critically low 42.0-54.0 [facility] Comment on above: Performed By: #### C BC #### [facility] [address] [place] [address] Dr. Sonido Bejarano Hemoglobin (Bld) [Mass/Vol] 8.1 g/dL Critically low 14.0-18.0 [facility] Comment on above: Performed By: #### C BC #### [facility] [address] [place] [address] Dr. Sonido Bejarano IG # 0.02 10e3/ul Normal 0.00-0.03 [facility] Comment on above: Performed By: #### C BC #### [facility] [address] [place] [address] Dr. Sonido Bejarano IG % 0.3 % Normal 0.0-0.5 [facility] Comment on above: Performed By: #### C BC #### [facility] [address] [place] [address] Dr. Sonido Bejarano LYMPH # 1.3 103/ul Normal 1.2-3.8 [facility] Comment on above: Performed By: #### C BC #### [facility] [address] [place] [address] Dr. Sonido Bejarano Lymphocytes/100 WBC (Bld) 19.4 % Critically low 20.5-60.0 [facility] Comment on above: Performed By: #### C BC #### [facility] [address] [place] [address] Dr. Sonido Bejarano MANUAL DIFF REQ NO Normal [facility] Comment on above: Performed By: #### C BC #### [facility] [address] [place] [address] Dr. Sonido Bejarano MCH (RBC) [Entitic mass] 15.5 pg Critically low 25.9-34.0 [facility] Comment on above: Performed By: #### C BC #### [facility] [address] [address] [address] Sonido Bejarano MCHC (RBC) [Mass/Vol] 25.7 g/dL Critically low 29.9-35.2 [facility] Comment on above: Performed By: #### C BC #### [facility] [address] [address] [address] Sonido Bejarano MCV (RBC) [Entitic vol] 60.2 fL Critically low 80.0-94.0 [facility] Comment on above: Performed By: #### C BC #### [facility] [address] [place] [address] Dr. Sonido Bejarano MONO # 0.9 103/ul Critically high 0.3-0.8 [facility] Comment on above: Performed By: #### C BC #### [facility] [address] [place] [address] Dr. Sonido Bejarano Monocytes/100 WBC (Bld) 12.9 % Critically high 1.7-12.0 [facility] Comment on above: Performed By: #### C BC #### [facility] [address] [place] [address] Dr. Sonido Bejarano NEUT # 4.5 103/ul Normal 1.4-6.5 [facility] Comment on above: Performed By: #### C BC #### [facility] [address] [place] [address] Dr. Sonido Bejarano Neutrophils/100 WBC (Bld) 66.7 % Normal 43.0-75.0 [facility] Comment on above: Performed By: #### C BC #### [facility] [address] [place] [address] Dr. Sonido Bejarano Platelet mean volume (Bld) [Entitic vol] 9.2 fL Critically low 9.5-13.5 [facility] Comment on above: Performed By: #### C BC #### [facility] [address] [place] [address] Dr. Sonido Bejarano PLT 356 103/ul Normal 150-450 [facility] Comment on above: Performed By: #### C BC #### [facility] [address] [place] [address] Dr. Sonido Bejarano RBC 5.23 106/ul Normal 4.70-6.10 [facility] Comment on above: Result Comment: 2+ P OIKILOCYTOSIS 2+ ANISOCYTOSIS 2+ OVALOCYTE 1+ TEAR DROP CELL 2+ ACANTHOCYTE Performed By: #### C BC #### [facility] [address] [place] [address] Dr. Sonido Bejarano WBC 6.8 103/ul Normal 4.0-11.0 [facility] Comment on above: Performed By: #### C BC #### [facility] [address] [place] [address] Dr. Sonido Bejarano CBC AUTO DIFFon 12-20-2022 BASO # 0.0 103/ul Normal 0.0-0.1 [facility] Comment on above: Performed By: #### C BC #### [facility] [address] [place] [address] Dr. Sonido Bejarano Basophils/100 WBC (Bld) 0.5 % Normal 0.2-2.0 [facility] Comment on above: Performed By: #### C BC #### [facility] [address] [place] [address] Dr. Sonido Bejarano EO # 0.1 103/ul Normal 0.0-0.7 [facility] Comment on above: Performed By: #### C BC #### [facility] [address] [place] [address] Dr. Sonido Bejarano Eosinophils/100 WBC (Bld) 1.3 % Normal 0.9-7.0 [facility] Comment on above: Performed By: #### C BC #### [facility] [address] [place] [address] Dr. Sonido Bejarano Erythrocyte distribution width (RBC) [Ratio] 22.8 % Critically high 11.0-15.0 [facility] Comment on above: Performed By: #### C BC #### [facility] [address] [place] [address] Dr. Sonido Bejarano Hematocrit (Bld) [Volume fraction] 34.5 % Critically low 42.0-54.0 [facility] Comment on above: Performed By: #### C BC #### [facility] [address] [place] [address] Dr. Sonido Bejarano Hemoglobin (Bld) [Mass/Vol] 8.9 g/dL Critically low 14.0-18.0 [facility] Comment on above: Performed By: #### C BC #### [facility] [address] [place] [address] Dr. Sonido Bejarano IG # 0.01 10e3/ul Normal 0.00-0.03 [facility] Comment on above: Performed By: #### C BC #### [facility] [address] [place] [address] Dr. Sonido Bejarano IG % 0.2 % Normal 0.0-0.5 [facility] Comment on above: Performed By: #### C BC #### [facility] [address] [place] [address] Dr. Sonido Bejarano LYMPH # 1.0 103/ul Critically low 1.2-3.8 [facility] Comment on above: Performed By: #### C BC #### [facility] [address] [place] [address] Dr. Sonido Bejarano Lymphocytes/100 WBC (Bld) 18.3 % Critically low 20.5-60.0 [facility] Comment on above: Performed By: #### C BC #### [facility] [address] [place] [address] Dr. Sonido Bejarano MANUAL DIFF REQ NO Normal [facility] Comment on above: Performed By: #### C BC #### [facility] [address] [place] [address] Dr. Sonido Bejarano MCH (RBC) [Entitic mass] 15.6 pg Critically low 25.9-34.0 [facility] Comment on above: Performed By: #### C BC #### [facility] [address] [address] [address] Sonido Bejarano MCHC (RBC) [Mass/Vol] 25.8 g/dL Critically low 29.9-35.2 [facility] Comment on above: Performed By: #### C BC #### [facility] [address] [place] [address] Dr. Sonido Bejarano MCV (RBC) [Entitic vol] 60.6 fL Critically low 80.0-94.0 [facility] Comment on above: Performed By: #### C BC #### [facility] [address] [place] [address] Dr. Sonido Bejarano MONO # 0.7 103/ul Normal 0.3-0.8 [facility] Comment on above: Performed By: #### C BC #### [facility] [address] [place] [address] Dr. Sondio Bejarano Monocytes/100 WBC (Bld) 13.2 % Critically high 1.7-12.0 [facility] Comment on above: Performed By: #### C BC #### [facility] [address] [place] [address] Dr. Sonido Bejarano NEUT # 3.7 103/ul Normal 1.4-6.5 [facility] Comment on above: Performed By: #### C BC #### [facility] [address] [place] [address] Dr. Sonido Bejarano Neutrophils/100 WBC (Bld) 66.5 % Normal 43.0-75.0 [facility] Comment on above: Performed By: #### C BC #### [facility] [address] [place] [address] Dr. Sonido Bejarano Platelet mean volume (Bld) [Entitic vol] 9.6 fL Normal 9.5-13.5 [facility] Comment on above: Performed By: #### C BC #### [facility] [address] [place] [address] Dr. Sonido Bejarano PLT 441 103/ul Normal 150-450 [facility] Comment on above: Performed By: #### C BC #### [facility] [address] [place] [address] Dr. Sonido Bejarano RBC 5.69 106/ul Normal 4.70-6.10 [facility] Comment on above: Result Comment: Anis ocytosis 2+ Hypochromasia 2+ Poikilocytosis 2+ Ovalocytes 1+ Tear drop cells 1+ Acanthocytes 1+ Performed By: #### C BC #### [facility] [address] [place] [address] Dr. Sonido Bejarano WBC 5.5 103/ul Normal 4.0-11.0 [facility] Comment on above: Performed By: #### C BC #### [facility] [address] [place] [address] Dr. Sonido Bejarano CBC AUTO DIFFon 11-20-2022 BASO # 0.1 103/ul Normal 0.0-0.1 [facility] Comment on above: Performed By: #### C BC #### [facility] [address] [place] [address] Dr. Sonido Bejarano Basophils/100 WBC (Bld) 1.0 % Normal 0.2-2.0 [facility] Comment on above: Performed By: #### C BC #### [facility] [address] [place] [address] Dr. Sonido Bejarano EO # 0.1 103/ul Normal 0.0-0.7 [facility] Comment on above: Performed By: #### C BC #### [facility] [address] [place] [address] Dr. Sonido Bejarano Eosinophils/100 WBC (Bld) 2.1 % Normal 0.9-7.0 [facility] Comment on above: Performed By: #### C BC #### [facility] [address] [place] [address] Dr. Sonido Bejarano Erythrocyte distribution width (RBC) [Ratio] 23.0 % Critically high 11.0-15.0 [facility] Comment on above: Performed By: #### C BC #### [facility] [address] [place] [address] Dr. Sonido Bejarano Hematocrit (Bld) [Volume fraction] 32.6 % Critically low 42.0-54.0 [facility] Comment on above: Performed By: #### C BC #### [facility] [address] [place] [address] Dr. Sonido Bejaarno Hemoglobin (Bld) [Mass/Vol] 8.0 g/dL Critically low 14.0-18.0 [facility] Comment on above: Performed By: #### C BC #### [facility] [address] [place] [address] Dr. Sonido Bejarano IG # 0.01 10e3/ul Normal 0.00-0.03 [facility] Comment on above: Performed By: #### C BC #### [facility] [address] [place] [address] Dr. Sonido Bejarano IG % 0.2 % Normal 0.0-0.5 [facility] Comment on above: Performed By: #### C BC #### [facility] [address] [place] [address] Dr. Sonido Bejarano LYMPH # 1.1 103/ul Critically low 1.2-3.8 [facility] Comment on above: Performed By: #### C BC #### [facility] [address] [place] [address] Dr. Sonido Bejarano Lymphocytes/100 WBC (Bld) 22.0 % Normal 20.5-60.0 [facility] Comment on above: Performed By: #### C BC #### [facility] [address] [place] [address] Dr. Sonido Bejarano MANUAL DIFF REQ NO Normal [facility] Comment on above: Performed By: #### C BC #### [facility] [address] [place] [address] Dr. Sonido Bejarano MCH (RBC) [Entitic mass] 15.6 pg Critically low 25.9-34.0 [facility] Comment on above: Performed By: #### C BC #### [facility] [address] [place] [address] Dr. Sonido Bejarano MCHC (RBC) [Mass/Vol] 24.5 g/dL Critically low 29.9-35.2 [facility] Comment on above: Performed By: #### C BC #### [facility] [address] [address] [address] Sonido Bejarano MCV (RBC) [Entitic vol] 63.4 fL Critically low 80.0-94.0 [facility] Comment on above: Performed By: #### C BC #### [facility] [address] [address] [address] Sonido Bejarano MONO # 0.6 103/ul Normal 0.3-0.8 [facility] Comment on above: Performed By: #### C BC #### [facility] [address] [place] [address] Dr. Sonido Bejarano Monocytes/100 WBC (Bld) 13.0 % Critically high 1.7-12.0 [facility] Comment on above: Performed By: #### C BC #### [facility] [address] [place] [address] Dr. Sonido Bejarano NEUT # 3.0 103/ul Normal 1.4-6.5 [facility] Comment on above: Performed By: #### C BC #### [facility] [address] [place] [address] Dr. Sonido Bejarano Neutrophils/100 WBC (Bld) 61.7 % Normal 43.0-75.0 [facility] Comment on above: Performed By: #### C BC #### [facility] [address] [place] [address] Dr. Sonido Bejarano Platelet mean volume (Bld) [Entitic vol] 8.6 fL Critically low 9.5-13.5 [facility] Comment on above: Performed By: #### C BC #### [facility] [address] [place] [address] Dr. Sonido Bejarano PLT 333 103/ul Normal 150-450 [facility] Comment on above: Performed By: #### C BC #### [facility] [address] [place] [address] Dr. Sonido Bejarano RBC 5.14 106/ul Normal 4.70-6.10 [facility] Comment on above: Performed By: #### C BC #### [facility] [address] [address] [address] Sonido Bejarano WBC 4.9 103/ul Normal 4.0-11.0 [facility] Comment on above: Performed By: #### C BC #### [facility] [address] [place], [place] [id number] Dr. Sonido Bejarano CBC AUTO DIFFon 10-11-2022 BASO # 0.0 103/ul Normal 0.0-0.1 [facility] Comment on above: Performed By: #### C BC #### [facility] [address] [place] [address] Dr. Sonido Bejarano Basophils/100 WBC (Bld) 0.8 % Normal 0.2-2.0 [facility] Comment on above: Performed By: #### C BC #### [facility] [address] [place] [address] Dr. Sonido Bejarano EO # 0.1 103/ul Normal 0.0-0.7 [facility] Comment on above: Performed By: #### C BC #### [facility] [address] [place] [address] Dr. Sonido Bejarano Eosinophils/100 WBC (Bld) 1.5 % Normal 0.9-7.0 [facility] Comment on above: Performed By: #### C BC #### [facility] [address] [place] [address] Dr. Sonido Bejarano Erythrocyte distribution width (RBC) [Ratio] 22.4 % Critically high 11.0-15.0 [facility] Comment on above: Performed By: #### C BC #### [facility] [address] [place] [address] Dr. Sonido Bejarano Hematocrit (Bld) [Volume fraction] 32.3 % Critically low 42.0-54.0 [facility] Comment on above: Performed By: #### C BC #### [facility] [address] [place] [address] Dr. Sonido Bejarano Hemoglobin (Bld) [Mass/Vol] 8.1 g/dL Critically low 14.0-18.0 [facility] Comment on above: Performed By: #### C BC #### [facility] [address] [place] [address] Dr. Sonido Bejarano IG # 0.01 10e3/ul Normal 0.00-0.03 [facility] Comment on above: Performed By: #### C BC #### [facility] [address] [place] [address] Dr. Sonido Bejarano IG % 0.2 % Normal 0.0-0.5 [facility] Comment on above: Performed By: #### C BC #### [facility] [address] [place] [address] Dr. Sonido Bejarano LYMPH # 1.2 103/ul Normal 1.2-3.8 [facility] Comment on above: Performed By: #### C BC #### [facility] [address] [place] [address] Dr. Sonido Bejarano Lymphocytes/100 WBC (Bld) 22.8 % Normal 20.5-60.0 [facility] Comment on above: Performed By: #### C BC #### [facility] [address] [place] [address] Dr. Sonido Bejarano MANUAL DIFF REQ NO Normal [facility] Comment on above: Performed By: #### C BC #### [facility] [address] [place] [address] Dr. Sonido Bejarano MCH (RBC) [Entitic mass] 15.1 pg Critically low 25.9-34.0 [facility] Comment on above: Performed By: #### C BC #### [facility] [address] [place] [address] Dr. Sonido Bejarano MCHC (RBC) [Mass/Vol] 25.1 g/dL Critically low 29.9-35.2 [facility] Comment on above: Performed By: #### C BC #### [facility] [address] [place] [address] Dr. Sonido Bejarano MCV (RBC) [Entitic vol] 60.0 fL Critically low 80.0-94.0 [facility] Comment on above: Performed By: #### C BC #### [facility] [address] [place] [address] Dr. Sonido Bejarano MONO # 0.7 103/ul Normal 0.3-0.8 [facility] Comment on above: Performed By: #### C BC #### [facility] [address] [place] [address] Dr. Sonido Bejarano Monocytes/100 WBC (Bld) 12.5 % Critically high 1.7-12.0 [facility] Comment on above: Performed By: #### C BC #### [facility] [address] [place] [address] Dr. Sonido Bejarano NEUT # 3.2 103/ul Normal 1.4-6.5 [facility] Comment on above: Performed By: #### C BC #### [facility] [address] [place] [address] Dr. Sonido Bejarano Neutrophils/100 WBC (Bld) 62.2 % Normal 43.0-75.0 [facility] Comment on above: Performed By: #### C BC #### [facility] [address] [place] [address] Dr. Sonido Bejarano Platelet mean volume (Bld) [Entitic vol] 8.6 fL Critically low 9.5-13.5 [facility] Comment on above: Performed By: #### C BC #### [facility] [address] [place] [address] Dr. Sonido Bejarano PLT 345 103/ul Normal 150-450 [facility] Comment on above: Performed By: #### C BC #### [facility] [address] [place] [address] Dr. Sonido Bejarano RBC 5.38 106/ul Normal 4.70-6.10 [facility] Comment on above: Performed By: #### C BC #### [facility] [address] [place] [address] Dr. Sonido Bejarano WBC 5.2 103/ul Normal 4.0-11.0 [facility] Comment on above: Performed By: #### C BC #### [facility] [address] [address] [address] Sonido Bejarano CBC W MANUAL DIFFon 09-18-20 ANISOCYTOSIS 3+ Normal [facility] Comment on above: Performed By: #### C BCMAN #### [facility] [address] [place] [address] Dr. Sonido Bejarano ATYPICAL LYMPH # Normal [facility] Comment on above: Performed By: #### C BCMAN #### [facility] [address] [place] [address] Dr. Sonido Bejarano ATYPICAL LYMPH % Normal [facility] Comment on above: Performed By: #### C BCMAN #### [facility] [address] [place] [address] Dr. Sonido Bejarano BAND # Normal 0.0-0.3 [facility] Comment on above: Performed By: #### C BCMAN #### [facility] [address] [place] [address] Dr. Sonido Bejarano BAND % Normal 0-5 [facility] Comment on above: Performed By: #### C BCMAN #### [facility] [address] [place] [address] Dr. Sonido Bejarano BASOM # 0.00 103/ul Normal 0.00-0.10 [facility] Comment on above: Performed By: #### C BCMAN #### [facility] [address] [place] [address] Dr. Sonido Bejarano BASOM % 0.0 % Critically low 0.2-2.0 [facility] Comment on above: Performed By: #### C BCMAN #### [facility] [address] [place] [address] Dr. Sonido Bejarano BLAST # Normal [facility] Comment on above: Performed By: #### C BCMAN #### [facility] [address] [place] [address] Dr. Sonido Bejarano BLAST % Normal [facility] Comment on above: Performed By: #### C BCMAN #### [facility] [address] [place] [address] Dr. Sonido Bejarano CORRECTED WBC Normal 4.0-11.0 [facility] Comment on above: Performed By: #### C BCKATHERINE #### [facility] [address] [address] [address] Sonido Bejarano EOS # 0.08 103/ul Normal 0.00-0.70 [facility] Comment on above: Performed By: #### C BCKATHERINE #### [facility] [address] [address] [address] Sonido Bejarano EOS% 2.0 % Normal 0.9-7.0 [facility] Comment on above: Performed By: #### C BCKATHERINE #### [facility] [address] [address] [address] Sonido Bejarano HCT 31.1 % Critically low 42.0-54.0 [facility] Comment on above: Performed By: #### C RAMILA #### [facility] [address] [place] [address] Dr. Sonido Bejarano HGB 8.3 g/dl Critically low 14.0-18.0 [facility] Comment on above: Performed By: #### C RAMILA #### [facility] [address] [address] [address] Sonido Bejarano HYPOCHROMASIA SLIGHT Normal [facility] Comment on above: Performed By: #### C BCKATHERINE #### [facility] [address] [address] [address] Sonido Bejarano LYMPHM # 1.13 103/ul Critically low 1.20-3.80 [facility] Comment on above: Performed By: #### C BCKATHERINE #### [facility] [address] [address] [address] Sonido Bejarano LYMPHM% 27.0 % Normal 20.5-60.0 [facility] Comment on above: Performed By: #### C BCKATHERINE #### [facility] [address] [place] [address] Dr. Sonido Bejarano MCH 15.9 pg Critically low 25.9-34.0 [facility] Comment on above: Performed By: #### C BCKATHERINE #### [facility] [address] [address] [address] Sonido Bejarano MCHC 26.7 g/dl Critically low 29.9-35.2 [facility] Comment on above: Performed By: #### C RAMILA #### [facility] [address] [place] [address] Dr. Sonido Bejarano MCV 59.5 fL Critically low 80.0-94.0 [facility] Comment on above: Performed By: #### C BCKATHERINE #### [facility] [address] [place] [address] Dr. Sonido Bejarano METAMYELOCYTE # Normal [facility] Comment on above: Performed By: #### C RAMILA #### [facility] [address] [place] [address] Dr. Sonido Bejarano METAMYELOCYTE % Normal [facility] Comment on above: Performed By: #### C RAMILA #### [facility] [address] [place] [address] Dr. Sonido Bejarano MICROCYTOSIS 3+ Normal [facility] Comment on above: Performed By: #### C RAMILA #### [facility] [address] [place] [address] Dr. Sonido Bejarano MONOM# 0.55 103/ul Normal 0.30-0.80 [facility] Comment on above: Performed By: #### C RAMILA #### [facility] [address] [place] [address] Dr. Sonido Bejarano MONOM% 13.0 % Critically high 1.7-12.0 [facility] Comment on above: Performed By: #### C RAMILA #### [facility] [address] [place] [address] Dr. Sonido Bejarano MPV 9.7 fL Normal 9.5-13.5 [facility] Comment on above: Performed By: #### C BCKATHERINE #### [facility] [address] [place] [address] Dr. Sonido Bejarano MYELOCYTE # Normal [facility] Comment on above: Performed By: #### C BCKATHERINE #### [facility] [address] [address] [address] Sonido Bejarano MYELOCYTE % Normal [facility] Comment on above: Performed By: #### C RAMILA #### [facility] [address] [place] [address] Dr. Sonido Bejarano NRBC Normal [facility] Comment on above: Performed By: #### C OSWALDOMAN #### [facility] [address] [address] [address] Sonido Bejarano PLT 421 103/ul Normal 150-450 [facility] Comment on above: Performed By: #### C RAMILA #### [facility] [address] [place] [address] Dr. Sonido Bejarano RBC 5.23 106/ul Normal 4.70-6.10 [facility] Comment on above: Performed By: #### C RAMILA #### [facility] [address] [place] [address] Dr. Sonido Bejarano RDW 22.2 % Critically high 11.0-15.0 [facility] Comment on above: Performed By: #### C RAMILA #### [facility] [address] [place] [address] Dr. Sonido Bejarano SEG # 2.44 103/ul Normal 1.40-6.50 [facility] Comment on above: Performed By: #### C OSWALDOMAN #### [facility] [address] [place] [address] Dr. Sonido Bejarano SEG % 58.0 % Normal 43.0-75.0 [facility] Comment on above: Performed By: #### C BCMAN #### [facility] [address] [place] [address] Dr. Sonido Bejarano WBC 4.2 103/ul Normal 4.0-11.0 [facility] Comment on above: Performed By: #### C OSWALDOMAN #### [facility] [address] [place] [address] Dr. Sonido Bejarano CBC AUTO DIFFon 08-21-2022 BASO # 0.0 103/ul Normal 0.0-0.1 [facility] Comment on above: Performed By: #### C BC #### [facility] [address] [place] [address] Dr. Sonido Bejarano Basophils/100 WBC (Bld) 0.6 % Normal 0.2-2.0 [facility] Comment on above: Performed By: #### C BC #### [facility] [address] [place] [address] Dr. Sonido Bejarano EO # 0.1 103/ul Normal 0.0-0.7 [facility] Comment on above: Performed By: #### C BC #### [facility] [address] [place] [address] Dr. Sonido Bejarano Eosinophils/100 WBC (Bld) 1.0 % Normal 0.9-7.0 [facility] Comment on above: Performed By: #### C BC #### [facility] [address] [place] [address] Dr. Sonido Bejarano Erythrocyte distribution width (RBC) [Ratio] 21.9 % Critically high 11.0-15.0 [facility] Comment on above: Result Comment: anis ocytosis 2+ Performed By: #### C BC #### [facility] [address] [place] [address] Dr. Sonido Bejarano Hematocrit (Bld) [Volume fraction] 32.7 % Critically low 42.0-54.0 [facility] Comment on above: Performed By: #### C BC #### [facility] [address] [place] [address] Dr. Sonido Bejarano Hemoglobin (Bld) [Mass/Vol] 8.4 g/dL Critically low 14.0-18.0 [facility] Comment on above: Performed By: #### C BC #### [facility] [address] [place] [address] Dr. Sonido Bejarano IG # 0.01 10e3/ul Normal 0.00-0.03 [facility] Comment on above: Performed By: #### C BC #### [facility] [address] [place] [address] Dr. Sonido Bejarano IG % 0.2 % Normal 0.0-0.5 [facility] Comment on above: Performed By: #### C BC #### [facility] [address] [address] [address] Sonido Bejarano LYMPH # 1.1 103/ul Critically low 1.2-3.8 [facility] Comment on above: Performed By: #### C BC #### [facility] [address] [address] [address] Sonido Bejarano Lymphocytes/100 WBC (Bld) 22.3 % Normal 20.5-60.0 [facility] Comment on above: Performed By: #### C BC #### [facility] [address] [address] [address] Sonido Bejarano MANUAL DIFF REQ NO Normal [facility] Comment on above: Performed By: #### C BC #### [facility] [address] [place] [address] Dr. Sonido Bejarano MCH (RBC) [Entitic mass] 15.3 pg Critically low 25.9-34.0 [facility] Comment on above: Performed By: #### C BC #### [facility] [address] [place] [address] Dr. Sonido Bejarano MCHC (RBC) [Mass/Vol] 25.7 g/dL Critically low 29.9-35.2 [facility] Comment on above: Result Comment: hypo chromasia 2+ Performed By: #### C BC #### [facility] [address] [place] [address] Dr. Sonido Bejarano MCV (RBC) [Entitic vol] 59.6 fL Critically low 80.0-94.0 [facility] Comment on above: Result Comment: micr ocytosis 3+ Performed By: #### C BC #### [facility] [address] [place] [address] Dr. Sonido Bejarano MONO # 0.5 103/ul Normal 0.3-0.8 [facility] Comment on above: Performed By: #### C BC #### [facility] [address] [place] [address] Dr. Sonido Bejarano Monocytes/100 WBC (Bld) 10.8 % Normal 1.7-12.0 [facility] Comment on above: Performed By: #### C BC #### [facility] [address] [place] [address] Dr. Sonido Bejarano NEUT # 3.2 103/ul Normal 1.4-6.5 [facility] Comment on above: Performed By: #### C BC #### [facility] [address] [place] [address] Dr. Sonido Bejarano Neutrophils/100 WBC (Bld) 65.1 % Normal 43.0-75.0 [facility] Comment on above: Performed By: #### C BC #### [facility] [address] [place] [address] Dr. Sonido Bejarano Platelet mean volume (Bld) [Entitic vol] 9.5 fL Normal 9.5-13.5 [facility] Comment on above: Performed By: #### C BC #### [facility] [address] [place] [address] Dr. Sonido Bejarano PLT 415 103/ul Normal 150-450 [facility] Comment on above: Performed By: #### C BC #### [facility] [address] [place] [address] Dr. Sonido Bejarano RBC 5.49 106/ul Normal 4.70-6.10 [facility] Comment on above: Performed By: #### C BC #### [facility] [address] [place] [address] Dr. Sonido Bejarano WBC 5.0 103/ul Normal 4.0-11.0 [facility] Comment on above: Performed By: #### C BC #### [facility] [address] [place] [address] Dr. Sonido Bejarano CBC AUTO DIFFon 08-02-2022 BASO # 0.0 103/ul Normal 0.0-0.1 [facility] Comment on above: Performed By: #### C BC #### [facility] [address] [place] [address] Dr. Sonido Bejarano Basophils/100 WBC (Bld) 0.3 % Normal 0.2-2.0 [facility] Comment on above: Performed By: #### C BC #### [facility] [address] [address] [address] Sonido Bejarano EO # 0.0 103/ul Normal 0.0-0.7 [facility] Comment on above: Performed By: #### C BC #### [facility] [address] [place] [address] Dr. Sonido Bejarano Eosinophils/100 WBC (Bld) 0.7 % Critically low 0.9-7.0 [facility] Comment on above: Performed By: #### C BC #### [facility] [address] [place] [address] Dr. Sonido Bejarano Erythrocyte distribution width (RBC) [Ratio] 21.9 % Critically high 11.0-15.0 [facility] Comment on above: Performed By: #### C BC #### [facility] [address] [place] [address] Dr. Sonido Bejarano Hematocrit (Bld) [Volume fraction] 30.0 % Critically low 42.0-54.0 [facility] Comment on above: Performed By: #### C BC #### [facility] [address] [place] [address] Dr. Sonido Bejarano Hemoglobin (Bld) [Mass/Vol] 7.8 g/dL Critically low 14.0-18.0 [facility] Comment on above: Performed By: #### C BC #### [facility] [address] [place] [address] Dr. Sonido Bejarano IG # 0.01 10e3/ul Normal 0.00-0.03 [facility] Comment on above: Performed By: #### C BC #### [facility] [address] [place] [address] Dr. Sonido Bejarano IG % 0.2 % Normal 0.0-0.5 [facility] Comment on above: Performed By: #### C BC #### [facility] [address] [place] [address] Dr. Sonido Bejarano LYMPH # 1.0 103/ul Critically low 1.2-3.8 [facility] Comment on above: Performed By: #### C BC #### [facility] [address] [address] [address] Sonido Bejarano Lymphocytes/100 WBC (Bld) 18.0 % Critically low 20.5-60.0 [facility] Comment on above: Performed By: #### C BC #### [facility] [address] [place] [address] Dr. Sonido Bejarano MANUAL DIFF REQ NO Normal [facility] Comment on above: Performed By: #### C BC #### [facility] [address] [address] [address] Sonido Bejarano MCH (RBC) [Entitic mass] 15.9 pg Critically low 25.9-34.0 [facility] Comment on above: Performed By: #### C BC #### [facility] [address] [place] [address] Dr. Sonido Bejarano MCHC (RBC) [Mass/Vol] 26.0 g/dL Critically low 29.9-35.2 [facility] Comment on above: Performed By: #### C BC #### [facility] [address] [place] [address] Dr. Sonido Bejarano MCV (RBC) [Entitic vol] 61.2 fL Critically low 80.0-94.0 [facility] Comment on above: Performed By: #### C BC #### [facility] [address] [place] [address] Dr. Sonido Bejarano MONO # 0.5 103/ul Normal 0.3-0.8 [facility] Comment on above: Performed By: #### C BC #### [facility] [address] [place] [address] Dr. Sonido Bejarano Monocytes/100 WBC (Bld) 8.7 % Normal 1.7-12.0 [facility] Comment on above: Performed By: #### C BC #### [facility] [address] [place] [address] Dr. Sonido Bejarano NEUT # 4.1 103/ul Normal 1.4-6.5 [facility] Comment on above: Performed By: #### C BC #### [facility] [address] [place] [address] Dr. Sonido Bejarano Neutrophils/100 WBC (Bld) 72.1 % Normal 43.0-75.0 [facility] Comment on above: Performed By: #### C BC #### [facility] [address] [place] [address] Dr. Sonido Bejarano Platelet mean volume (Bld) [Entitic vol] 9.3 fL Critically low 9.5-13.5 [facility] Comment on above: Performed By: #### C BC #### [facility] [address] [place] [address] Dr. Sonido Bejarano PLT 339 103/ul Normal 150-450 [facility] Comment on above: Performed By: #### C BC #### [facility] [address] [place] [address] Dr. Sonido Bejarano RBC 4.90 106/ul Normal 4.70-6.10 [facility] Comment on above: Performed By: #### C BC #### [facility] [address] [place] [address] Dr. Sonido Bejarano WBC 5.7 103/ul Normal 4.0-11.0 [facility] Comment on above: Performed By: #### C BC #### [facility] [address] [place] [address] Dr. Sonido Bejarano CBC AUTO DIFFon 06-17-2022 BASO # 0.0 103/ul Normal 0.0-0.1 [facility] Comment on above: Performed By: #### C BC #### [facility] [address] [place] [address] Dr. Sonido Bejarano Basophils/100 WBC (Bld) 0.7 % Normal 0.2-2.0 [facility] Comment on above: Performed By: #### C BC #### [facility] [address] [place] [address] Dr. Sonido Bejarano EO # 0.3 103/ul Normal 0.0-0.7 [facility] Comment on above: Performed By: #### C BC #### [facility] [address] [place] [address] Dr. Sonido Bejarano Eosinophils/100 WBC (Bld) 5.3 % Normal 0.9-7.0 [facility] Comment on above: Performed By: #### C BC #### [facility] [address] [place] [address] Dr. Sonido Bejarano Erythrocyte distribution width (RBC) [Ratio] 22.1 % Critically high 11.0-15.0 [facility] Comment on above: Performed By: #### C BC #### [facility] [address] [place] [address] Dr. Sonido Bejarano Hematocrit (Bld) [Volume fraction] 32.2 % Critically low 42.0-54.0 [facility] Comment on above: Performed By: #### C BC #### [facility] [address] [place] [address] Dr. Sonido Bejarano Hemoglobin (Bld) [Mass/Vol] 8.2 g/dL Critically low 14.0-18.0 [facility] Comment on above: Performed By: #### C BC #### [facility] [address] [place] [address] Dr. Sonido Bejarano IG # 0.01 10e3/ul Normal 0.00-0.03 [facility] Comment on above: Performed By: #### C BC #### [facility] [address] [place] [address] Dr. Sonido Bejarano IG % 0.2 % Normal 0.0-0.5 [facility] Comment on above: Performed By: #### C BC #### [facility] [address] [place] [address] Dr. Sonido Bejarano LYMPH # 1.1 103/ul Critically low 1.2-3.8 [facility] Comment on above: Performed By: #### C BC #### [facility] [address] [place] [address] Dr. Sonido Bejarano Lymphocytes/100 WBC (Bld) 19.3 % Critically low 20.5-60.0 [facility] Comment on above: Performed By: #### C BC #### [facility] [address] [address] [address] Sonido Bejarano MANUAL DIFF REQ NO Normal [facility] Comment on above: Performed By: #### C BC #### [facility] [address] [place] [address] Dr. Sonido Bejarano MCH (RBC) [Entitic mass] 15.8 pg Critically low 25.9-34.0 [facility] Comment on above: Performed By: #### C BC #### [facility] [address] [place] [address] Dr. Sonido Bejarano MCHC (RBC) [Mass/Vol] 25.5 g/dL Critically low 29.9-35.2 [facility] Comment on above: Performed By: #### C BC #### [facility] [address] [place] [address] Dr. Sonido Bejarano MCV (RBC) [Entitic vol] 62.0 fL Critically low 80.0-94.0 [facility] Comment on above: Performed By: #### C BC #### [facility] [address] [place] [address] Dr. Sonido Bejarano MONO # 0.9 103/ul Critically high 0.3-0.8 [facility] Comment on above: Performed By: #### C BC #### [facility] [address] [place] [address] Dr. Sonido Bejarano Monocytes/100 WBC (Bld) 16.0 % Critically high 1.7-12.0 [facility] Comment on above: Performed By: #### C BC #### [facility] [address] [place] [address] Dr. Sonido Bejarano NEUT # 3.2 103/ul Normal 1.4-6.5 [facility] Comment on above: Performed By: #### C BC #### [facility] [address] [place] [address] Dr. Sonido Bejarano Neutrophils/100 WBC (Bld) 58.5 % Normal 43.0-75.0 [facility] Comment on above: Performed By: #### C BC #### [facility] [address] [place] [address] Dr. Sonido Bejraano Platelet mean volume (Bld) [Entitic vol] 9.3 fL Critically low 9.5-13.5 [facility] Comment on above: Performed By: #### C BC #### [facility] [address] [place] [address] Dr. Sonido Bejarano PLT 335 103/ul Normal 150-450 [facility] Comment on above: Performed By: #### C BC #### [facility] [address] [place] [address] Dr. Sonido Bejarano RBC 5.19 106/ul Normal 4.70-6.10 [facility] Comment on above: Performed By: #### C BC #### [facility] [address] [place] [address] Dr. Sonido Bejarano WBC 5.5 103/ul Normal 4.0-11.0 [facility] Comment on above: Performed By: #### C BC #### [facility] [address] [place] [address] Dr. Sonido Bejraano CBC AUTO DIFFon 05-15-2022 BASO # 0.0 103/ul Normal 0.0-0.1 [facility] Comment on above: Performed By: #### C BC #### [facility] [address] [place] [address] Dr. Sonido Bejarano Basophils/100 WBC (Bld) 0.8 % Normal 0.2-2.0 [facility] Comment on above: Performed By: #### C BC #### [facility] [address] [place] [address] Dr. Sonido Bejarano EO # 0.1 103/ul Normal 0.0-0.7 [facility] Comment on above: Performed By: #### C BC #### [facility] [address] [place] [address] Dr. Sonido Bejarano Eosinophils/100 WBC (Bld) 2.3 % Normal 0.9-7.0 [facility] Comment on above: Performed By: #### C BC #### [facility] [address] [place] [address] Dr. Sonido Bejarano Erythrocyte distribution width (RBC) [Ratio] 21.5 % Critically high 11.0-15.0 [facility] Comment on above: Performed By: #### C BC #### [facility] [address] [place] [address] Dr. Sonido Bejarano Hematocrit (Bld) [Volume fraction] 30.5 % Critically low 42.0-54.0 [facility] Comment on above: Performed By: #### C BC #### [facility] [address] [place] [address] Dr. Sonido Bejarano Hemoglobin (Bld) [Mass/Vol] 7.9 g/dL Critically low 14.0-18.0 [facility] Comment on above: Performed By: #### C BC #### [facility] [address] [place] [address] Dr. Sonido Bejarano IG # 0.01 10e3/ul Normal 0.00-0.03 [facility] Comment on above: Performed By: #### C BC #### [facility] [address] [place] [address] Dr. Sonido Bejarano IG % 0.2 % Normal 0.0-0.5 [facility] Comment on above: Performed By: #### C BC #### [facility] [address] [place] [address] Dr. Sonido Bejarano LYMPH # 1.3 103/ul Normal 1.2-3.8 [facility] Comment on above: Performed By: #### C BC #### [facility] [address] [place] [address] Dr. Sonido Bejarano Lymphocytes/100 WBC (Bld) 24.6 % Normal 20.5-60.0 [facility] Comment on above: Performed By: #### C BC #### [facility] [address] [place] [address] Dr. Sonido Bejarano MANUAL DIFF REQ NO Normal [facility] Comment on above: Performed By: #### C BC #### [facility] [address] [place] [address] Dr. Sonido Bejarano MCH (RBC) [Entitic mass] 15.6 pg Critically low 25.9-34.0 [facility] Comment on above: Performed By: #### C BC #### [facility] [address] [place] [address] Dr. Sonido Bejarano MCHC (RBC) [Mass/Vol] 25.9 g/dL Critically low 29.9-35.2 [facility] Comment on above: Performed By: #### C BC #### [facility] [address] [place] [address] Dr. Sonido Bejarano MCV (RBC) [Entitic vol] 60.4 fL Critically low 80.0-94.0 [facility] Comment on above: Performed By: #### C BC #### [facility] [address] [place] [address] Dr. Sonido Bejarano MONO # 0.6 103/ul Normal 0.3-0.8 [facility] Comment on above: Performed By: #### C BC #### [facility] [address] [place] [address] Dr. Sonido Bejarano Monocytes/100 WBC (Bld) 12.1 % Critically high 1.7-12.0 [facility] Comment on above: Performed By: #### C BC #### [facility] [address] [place] [address] Dr. Sonido Bejarano NEUT # 3.1 103/ul Normal 1.4-6.5 [facility] Comment on above: Performed By: #### C BC #### [facility] [address] [place] [address] Dr. Sonido Bejarano Neutrophils/100 WBC (Bld) 60.0 % Normal 43.0-75.0 [facility] Comment on above: Performed By: #### C BC #### [facility] [address] [place] [address] Dr. Sonido Bejarano Platelet mean volume (Bld) [Entitic vol] 9.6 fL Normal 9.5-13.5 [facility] Comment on above: Performed By: #### C BC #### [facility] [address] [place] [address] Dr. Sonido Bejarano PLT 399 103/ul Normal 150-450 [facility] Comment on above: Performed By: #### C BC #### [facility] [address] [place] [address] Dr. Sonido Bejarano RBC 5.05 106/ul Normal 4.70-6.10 [facility] Comment on above: Performed By: #### C BC #### [facility] [address] [place] [address] Dr. Sonido Bejarano WBC 5.1 103/ul Normal 4.0-11.0 [facility] Comment on above: Performed By: #### C BC #### [facility] [address] [place] [address] Dr. Sonido Bejarano CBC AUTO DIFFon 04-15-2022 BASO # 0.0 103/ul Normal 0.0-0.1 [facility] Comment on above: Performed By: #### C BC #### [facility] [address] [place] [address] Dr. Sonido Bejarano Basophils/100 WBC (Bld) 0.3 % Normal 0.2-2.0 [facility] Comment on above: Performed By: #### C BC #### [facility] [address] [place] [address] Dr. Sonido Bejarano EO # 0.1 103/ul Normal 0.0-0.7 [facility] Comment on above: Performed By: #### C BC #### [facility] [address] [place] [address] Dr. Sonido Bejarano Eosinophils/100 WBC (Bld) 1.0 % Normal 0.9-7.0 [facility] Comment on above: Performed By: #### C BC #### [facility] [address] [place] [address] Dr. Sonido Bejarano Erythrocyte distribution width (RBC) [Ratio] 21.2 % Critically high 11.0-15.0 [facility] Comment on above: Performed By: #### C BC #### [facility] [address] [place] [address] Dr. Sonido Bejarano Hematocrit (Bld) [Volume fraction] 32.2 % Critically low 42.0-54.0 [facility] Comment on above: Performed By: #### C BC #### [facility] [address] [place] [address] Dr. Sonido Bejarano Hemoglobin (Bld) [Mass/Vol] 8.3 g/dL Critically low 14.0-18.0 [facility] Comment on above: Performed By: #### C BC #### [facility] [address] [address] [address] Sonido Bejarano IG # 0.03 10e3/ul Normal 0.00-0.03 [facility] Comment on above: Performed By: #### C BC #### [facility] [address] [place] [address] Dr. Sonido Bejarano IG % 0.4 % Normal 0.0-0.5 [facility] Comment on above: Performed By: #### C BC #### [facility] [address] [place] [address] Dr. Sonido Bejarano LYMPH # 1.0 103/ul Critically low 1.2-3.8 [facility] Comment on above: Performed By: #### C BC #### [facility] [address] [place] [address] Dr. Sonido Bejarano Lymphocytes/100 WBC (Bld) 15.2 % Critically low 20.5-60.0 [facility] Comment on above: Performed By: #### C BC #### [facility] [address] [place] [address] Dr. Sonido Bejarano MANUAL DIFF REQ NO Normal [facility] Comment on above: Performed By: #### C BC #### [facility] [address] [place] [address] Dr. Sonido Bejarano MCH (RBC) [Entitic mass] 16.1 pg Critically low 25.9-34.0 [facility] Comment on above: Performed By: #### C BC #### [facility] [address] [place] [address] Dr. Sonido Bejarano MCHC (RBC) [Mass/Vol] 25.8 g/dL Critically low 29.9-35.2 [facility] Comment on above: Performed By: #### C BC #### [facility] [address] [place] [address] Dr. Sonido Bejarano MCV (RBC) [Entitic vol] 62.4 fL Critically low 80.0-94.0 [facility] Comment on above: Performed By: #### C BC #### [facility] [address] [place] [address] Dr. Sonido Bejarano MONO # 0.6 103/ul Normal 0.3-0.8 [facility] Comment on above: Performed By: #### C BC #### [facility] [address] [place] [address] Dr. Sonido Bejarano Monocytes/100 WBC (Bld) 8.5 % Normal 1.7-12.0 [facility] Comment on above: Performed By: #### C BC #### [facility] [address] [place] [address] Dr. Sonido Bejarano NEUT # 5.0 103/ul Normal 1.4-6.5 [facility] Comment on above: Performed By: #### C BC #### [facility] [address] [place] [address] Dr. Sonido Bejarano Neutrophils/100 WBC (Bld) 74.6 % Normal 43.0-75.0 [facility] Comment on above: Performed By: #### C BC #### [facility] [address] [place] [address] Dr. Sonido Bejarano Platelet mean volume (Bld) [Entitic vol] 9.9 fL Normal 9.5-13.5 [facility] Comment on above: Performed By: #### C BC #### [facility] [address] [place] [address] Dr. Sonido Bejarano PLT 355 103/ul Normal 150-450 [facility] Comment on above: Performed By: #### C BC #### [facility] [address] [place] [address] Dr. Sonido Bejarano RBC 5.16 106/ul Normal 4.70-6.10 [facility] Comment on above: Result Comment: 1+ o valocytes slight hypochromic slight microchromic Performed By: #### C BC #### [facility] [address] [address] [address] Sonido Bejarano WBC 6.7 103/ul Normal 4.0-11.0 [facility] Comment on above: Performed By: #### C BC #### [facility] [address] [id number] [address] Sonido Diana 03-28-2022 CNOV Office Visit ([facility] ) -------- RJ COLBERT ([id number]) 2000 [address] [facility] Date Time Provider Department 03/28/22 11:20 AM ARNOLD GENAO [facility] During your visit today, we recorded [...] Laterality Date - ABDOMINAL SURGERY HX - HEMORRHOID;WILL ALVAREZ, JENNIFER/YASSINE 07/12/2021 Current Outpatient Medications Medication Sig [...] exam Anorectal: External exam reveals: see below Sanitary Landfill Supervisor present: yes Assessment Assessment and Plan: Rj [...] Assessed Reason for Visit: Established Patient Follow-Up [[id number]] Rectal Bleeding [202] Primary Visit Diagnosis:Hematochezia [K92.1] [...] benztropine (C (more content not included)... Normal [facility] Lisa 03-28-2022 CNPN Telephone ([facility]) -------- RJ COLBERT ([id number]) 2000 [place] Date Time Provider Department 03/28/22 ARNOLD GENAO [facility] During your visit today, we recorded the following information about you: Essie Pickard Pss 03/28/2022 1:41 PM Signed Patient called and left message regarding prescription from today's visit return call to [phone] Charley Mcclelland RN 03/28/2022 2:49 PM Signed [...] Fully Assessed Reason for Visit: Patient Question [1440] Prescriptions as of 03/28/2022 - acetaminophen (TYLENOL) [...] Encounter Status:Closed by CHARLEY MCCLELLAND on 03/28/22 [id number] -------- RJ COLBERT ([id number]) 2000 Genia Reyez* Date Time Provider Department 03/28/22 ARNOLD GENAO [id number] During your visit today, we recorded the following information about you: Sara Rose ADM 03/28/2022 3:45 PM Signed Pharmacy, [facility], [facility], phone , any pharmacist to clarify about carbonate? CALM is detention able to order as food item? Please call to discuss. Charley Mcclelland, RN 03/28/2022 4:14 PM Signed Spoke with the pharmacist and she states that she does not provide food items. She will speak with the nurse at the detention. Allergies As of Date: 03/28/2022 (No Known [...] Encounter Status:Closed by CHARLEY MCCLELLAND on 03/28/22 [facility] CNOVon 11-16-2021 CNOV Office Visit ([facility] ) -------- RJ COLBERT ([id number]) 2000 [place] Date Time Provider Department 11/16/21 1:30 PM CRISTAL NAVA During your visit today, we recorded the following information about you: Pulse Blood pressure Weight Height 60/minute 136/80 96.2 kg 1.803 m Cristal Nava APRN.MANAGER VAN 11/16/2021 12:59 PM Signed COLORECTAL SURGERY November [...] results with patient and POA. Cristal Nava APRN.UHSAM Colorectal Surgery Referring Provider: ARNOLD GENAO [[id number]] Allergies As of Date: 11/16/2021 (No Known Allergies) Date Reviewed: 11/16/2021 Reviewed by: Cristal Nava APRN.MANAGER VAN - Fully Assessed Reason for Visit: Post [...] 07/10/2021 Hemorrho (more content not included)... Normal [facility] ANES POSTPROC EVALon 021 ANES POSTPROC EVAL HNO ID: [id number] Author: Michael Martínez MD Service: Anesthesiology Author Type: Anesthesiologist Type: Anesthesia Postprocedure Evaluation Filed: 10/17/2021 10:23 AM Note Text: POST ANESTHESIA EVALUATION NOTE : 2000 Procedure Summary Date: 10/17/21 Room / Location: [address] / [facility] Anesthesia Start: 841 Anesthesia Stop: 913 Procedure: [...] October 17, 2021 TIME: 10:23 AM CSN: [id number] [facility] ANES PRE-OPon 10-17-2021 ANES PRE-OP HNO ID: [id number] Author: Michael Martínez MD Service: Anesthesiology Author Type: Anesthesiologist Type: Anesthesia Preprocedure Evaluation Filed: 10/17/2021 8:32 AM Note Text: ANESTHESIOLOGY DAY OF SURGERY NOTE : 2000 Procedure Information Date/Time: 10/17/21729 Procedure: HEMORRHOIDECTOMY EXTERNAL > 2 COLUMNS/GROUPS (N/A ) Location: [address] / [facility] Surgeons: Arnold Genao MD Estimated body mass [...] ?F) 10/17/21 0655 SpO2 100 % 10/17/21 06 Facility-Administered Medications as of 10/17/2021 Medication Dose [...] October 17, 2021 TIME: 8:27 AM CSN: [id number] [facility] BRIEF OP NOTon 10-17-2021 BRIEF OP NOT HNO ID: [id number] Author: Jared Rowe MD Service: Colorectal Author Type: Resident Type: Brief Op Note Filed: 10/17/2021 9:15 AM Note Text: BRIEF OPERATIVE / PROCEDURE NOTE LOG ID: [id number] SURGERY/PROCEDURE DATE: 10/17/2021 INCISION/PROCEDURE START TIME: 8:55 AM INCISION CLOSE/PROCEDURE END TIME: 9:02 AM SURGEON(S)/PROCEDURALIST (S) AND PUBLICATION DESIGNER(S): Surgeon(s) and Role: * Arnold Genao MD [...] DATE: October 17, 2021 TIME: 9:13 AM [facility] HISTORY PHYSICALon HISTORY PHYSICAL HNO ID: [id number] Author: Jared Rowe MD Service: Colorectal Author [...] October 17, 2021 TIME: 7:22 AM Normal [facility] OPERATIVE NOon 10-17-2021 OPERATIVE NO HNO ID: [id number] Author: Arnold Genao MD Service: Colorectal Author Type: Physician Type: Operative Report Filed: 10/30/2021 11:21 AM Note Text: [facility] - Operative Report RJ COLBERT : 2000 AGE: 21. SEX: M PATIENT TYPE: A HOSP SVC: CORS LOCATION: [facility] ATTENDING PHYSICIAN: Arnold Genao M.D. CSN NUMBER: [id number] DATE OF SURGERY/PROCEDURE: 10/17/2021 INCISION/PROCEDURE START TIME: 8:55 AM INCISION CLOSE/PROCEDURE END TIME: 9:02 AM PREOPERATIVE DIAGNOSIS: Hemorrhoids. POSTOPERATIVE DIAGNOSIS: Hemorrhoids. SURGEON: Arnold Genao M.D. PUBLICATION DESIGNER: Jared. SURGERY/PROCEDURE: Ablation. ANESTHESIA: General ESTIMATED BLOOD [...] was overall very minor. Arnold Genao M.D. BC:[id number] /[id number] Normal [facility] HISTORY PHYSICALon HISTORY PHYSICAL HNO ID: [id number] Author: Zahira Heath APRN.MANAGER VAN Service: ? Author Type: Nurse Practitioner Type: [...] PAT today with a caregiver from his detention. States he is having around 5 bowel [...] - ABDOMINAL SURGERY HX - HEMORRHOID;BAND ANTONIO, SNJERSON/MUL 07/12/2021 No family history on file. SOCIAL [...] fevers. Neuro: No history of TIA's, stroke, LABELER tumor, impaired sensorium, hemiplegia, paraplegia or quadraplegia. [...] skills. Pulse (more content not included)... Normal [facility] CNOVon 08-31-2021 CNOV Office Visit ([facility] ) -------- RJ COLBERT ([id number]) 2000 [place] Date Time Provider Department 08/31/21 1:30 PM ARNOLD GENAO [facility] During your visit today, we recorded [...] Anorectal: External exam reveals : see below Sanitary Landfill Supervisor present: yes Assessment Assessment and Plan: Rj Colbert is a 21 year old male who is doing relatively well after his recent rubber band ligation. He still has some rectal bleeding and it is difficult to assess the exact amount. If the bleeding persists we will consider internal hemorrhoidectomy. Arnold Genao MD Colorectal Surgery Referring Provider: ELHAM VAN [[id number]] Allergies As of Date: 08/31/2021 (No Known [...] Encounter Status:Closed by ARNOLD GENAO on 09/02/21 [facility] OPERATIVE NOon 07-17-2021 OPERATIVE NO HNO ID: [id number] Author: Arnold Genao MD Service: Colorectal Author Type: Physician Type: Operative Report Filed: 08/01/2021 1:12 PM Note Text: [facility] - Operative Report RJ COLBERT : 2000 AGE: 21. SEX: M PATIENT TYPE: A HOSP SVC: CORS LOCATION: [facility] ATTENDING PHYSICIAN: Arnold Genao M.D. CSN NUMBER: [id number] DATE OF SURGERY/PROCEDURE: 07/12/2021 INCISION/PROCEDURE START TIME: 10:55 AM INCISION CLOSE/PROCEDURE END TIME: 10:58 AM PREOPERATIVE DIAGNOSIS: Rectal bleeding. POSTOPERATIVE DIAGNOSIS: Rectal bleeding. SURGEON: Arnold Genao M.D. PUBLICATION DESIGNER: None. SURGERY/PROCEDURE: Rubber-band ligation hemorrhoidectomy. ANESTHESIA: General [...] room in good condition. Arnold Genao M.D. BC:[id number] /[id number] [facility] 07-13-2021 [facility] Telephone ([facility]) -------- RJ COLBERT ([id number]) 2000 Genia Reyez* Date Time Provider Department 07/13/21 ARNOLD GENAO [facility] During your visit today, we recorded the following information about you: Essie Pickard Pss 07/13/2021 3:27 PM Signed Patient's caregiver called with post operative hemorrhoidectomy questions and concerns of bands falling off return call to [phone] Sara Rose ADM 07/16/2021 12:22 PM Signed Kasia, caregiver called. Patient banding undone. Called last Friday, waiting to talk to nurse about care. [phone] Nona Banks RN 07/16/2021 4:56 PM Signed [...] Encounter Status:Closed by NONA BANKS on 07/16/21 [facility] ANES POSTPROC EVALon 021 ANES POSTPROC EVAL HNO ID: [id number] Author: Jared Arriaga MD Service: Anesthesiology Author Type: Anesthesiologist Type: Anesthesia Postprocedure Evaluation Filed: 07/12/2021 12:05 PM Note Text: POST ANESTHESIA EVALUATION NOTE : 2000 Procedure Summary Date: 07/12/21 Room / Location: [address] / [facility] Anesthesia Start: 1044 Anesthesia Stop: 1110 [...] of care. No complications documented. SIGNATURE: Jared Arriaag MD PATIENT NAME: Rj Colbert DATE: July 12, 2021 TIME: 12:05 PM CSN: [id number] [facility] ANES PRE-OPon 07-12-2021 ANES PRE-OP HNO ID: [id number] Author: Jared Arriaga MD Service: Anesthesiology Author [...] none. Vitals Value Taken Time BP 118/83 07/12/21855 Pulse 77 07/12/21855 Resp 16 07/12/21855 Temp [...] July 12, 2021 TIME: 9:18 AM CSN: [id number] Normal [facility] HISTORY PHYSICALon HISTORY PHYSICAL HNO ID: [id number] Author: Arnold Genao MD Service: Colorectal Author [...] DATE: July 12, 2021 TIME: 10:39 AM [facility] HISTORY PHYSICALon HISTORY PHYSICAL HNO ID: [id number] Author: Zahira Ivy PA-C Service: ? Author Type: Physician Inhalation Therapy Aides Teacher Type: HANDP Filed: 07/10/2021 2:28 PM Note [...] PAT today with a caregiver from his detention. States he is having around 5 bowel [...] fevers. Neuro: No history of TIA's, stroke, LABELER tumor, impaired sensorium, hemiplegia, paraplegia or quadraplegia. [...] found for: (more content not included)... Normal [facility] 07-05-2021 [facility] Telephone ([id number]) -------- RJ COLBERT ([id number]) 2000 M Date Time Provider Department 07/05/21 ARNOLD GENAO [id number] During your visit today, we recorded the following information about you: Sara Rose [facility] 07/05/2021 3:26 PM Signed Kasia Nurse Cost Controller at detention where patient resides called to discuss procedure information and date. Call to discuss [phone] Sara Rose [facility] 07/06/2021 11:12 AM Signed Kasia nurse aware of 07/12 procedure date. Would like the nurse to call to advise any prep instructions other than fasting after midnight. Call Nurse Kasia mgr [phone] Cristal Nava APRN.[facility] 07/06/2021 12:27 PM Signed Call returned. Reviewed NPO after midnight and scheduled PACCs appointment. Allergies As of Date: 07/05/2021 (No Known Allergies) Date Reviewed: 06/29/2021 Reviewed by: Arnold Genao MD - Fully Assessed Reason for Visit: procedure info [Other] Cmt: discuss plan Primary Visit Diagnosis:Hemorrhoids, internal, with bleeding [K64.8] Order(s):VIRTUAL CONSULT TO [facility] [[id number]] Order #: [id number]: 1 FUTURE Prescriptions as of 07/06/2021 - [...] Encounter Status:Closed by CRISTAL NAVA on 07/06/21 [facility] CNOVon 06-29-2021 CNOV Office Visit ([facility] ) -------- RJ COLBERT ([id number]) 2000 M Date Time Provider Department 06/29/21 12:45 PM ARNOLD GENAO COJOHANA During your visit today, we recorded the [...] clinic today with a caregiver from his detention. They relate that he is having around [...] (222 lb 4.8 oz) BMI 31.90 kg/m? Sanitary Landfill Supervisor present: Yes Rj Colbert is a 21 year old male presents with complaint of rectal bleeding with prolapsing Grade 3 internal hemorrhoids on exam. Our plan is to perform an EUA and rubber band ligation of internal hemorrhoids at the [facility]. Medical Decision Making: Arnold Genao MD Colorectal Surgery Referring Provider: ELHAM VAN [[id number]] Allergies As of Date: 06/29/2021 (No Known [...] Encounter Status:Closed by ARNOLD GENAO on 06/29/21 [facility] -------- RJ COLBERT ([id number]) 2000 M Date Time Provider Department 05/22/21 ARNOLD GENAO [facility] During your visit today, we recorded the following information about you: Tamiko Sweeney 05/22/2021 3:28 PM Signed Ph. [phone] Alivia, who works for [employer], [facility]. 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 CODING DATE: 018 FINAL [facility] STATUS: Home (Routine [place]) PAYOR: Medicaid EAPG DESCRIPTION 0390 LEVEL I [...] PROC EAPG STAT DESCRIPTION DOCTOR NAME DATE 19805 0149 Colonoscopy, flexible; Colin Shirley MD 04/17/2018 with biopsy, single or multiple 74 Discontinued [facility] Procedure After Administration of Anesthe 05464 Anesthesia for lower Colin Shirley MD 04/17/2018 [...] Saved: 05/01/2018 08:02 am Normal [facility] Coding Summary. CODING DATE: 018 FINAL [facility] STATUS: Home (Routine [place]) PAYOR: Medicaid EAPG [...] PROC EAPG STAT DESCRIPTION DOCTOR NAME DATE 55597 0149 Colonoscopy, flexible; Colin Shirley MD 04/17/2018 with biopsy, single or multiple 74 Discontinued [facility] Procedure After Administration of Anesthe 34234 Anesthesia for lower Colin Shirley MD 04/17/2018 intestinal endoscopic procedures, endoscope introduced distal to duodenum; not otherwise specified NOTE: The code number assigned matches the documented diagnosis and / or procedure in the patient's chart. However, the narrative phrase printed from the coding software may appear abbreviated, or result in slightly different terminology. Coded By: Sary Little Date Saved: 04/23/2018 11:46 am [facility] Progress Note-Physicianon Progress Note-Physician Patient: RJ COLBERT [...] Cardiovascular: Regular rhythm. Neurologic: Alert, Oriented. Plan [place] [employer] Anesthesiologists (ASA) physical status classification: Class II. Anesthetic Preoperative Plan Anesthesia: General. . Anesthetic plan, risks, benefits, and alternatives discussed with the patient and/or family. Communication: face to face with (patient 5 minutes, Patient educated on smoking cesstation). Normal [facility] Comment on above: Result Comment: Elec tronically Signed By: Quincy Ojeda Jr, DO\.br\Date and Time Signed: 04/28/18 08:15 EDT Main OR Intraoperative Recor don 04-20-2018 Main OR Intraoperative Record IntraOp Document Type FT Summary Primary Physician: Colin Shirley MD Finalized Date/Time: 04/20/18 09:38:35 Pt. Name: RJ COLBERT/Sex: 2000 Male Med Rec #: [id number] Physician: Colin Shirley MD Financial #: [id number] Pt. Type: O Room/Bed: / Admit/Disch: 04/17/18 09:21:54 - 04/17/18 23:59:59 Institution: Case Times FT Entry 1 Patient Times In Room 04/17/18 13:14:00 Out Room 04/17/18 13:32:00 Procedure Times Start 04/17/18 13:18:00 Stop 04/17/18 13:29:00 Anesthesia Times Start 04/17/18 13:14:00 Stop 04/17/18 13:32:00 Last Modified By: Addie Oreilly CST 04/17/18 13:32:23 General Comments: 04/20/2018 Chart opened to review and send charges Marika Pineda PARAPROFESSIONAL AIDE TEACHER Case Attendance FT Entry 1 Entry 2 Entry 3 Case Attendee Casper GAUTAM, Colin Rene RN, Ashlee Boyd CST, Tori Role Performed Surgeon - Primary Outpatient Program Coordinator - Primary Scrub - Primary Time In 04/17/18 13:14:00 04/17/18 13:14:00 04/17/18 13:14:00 Time Out 04/17/18 13:32:00 04/17/18 13:32:00 04/17/18 13:32:00 Procedure COLONOSCOPY(.) COLONOSCOPY(.) COLONOSCOPY(.) Comments Last Modified By: Anju RN, Ashlee Rene RN, Ashlee Rene RN, Ashlee 04/17/18 13:32:29 04/17/18 13:32:29 04/17/18 13:32:29 Entry 4 Entry 5 Entry 6 Case Attendee Stas Palomares, Zenaida Mortensen CAA, Magi Garrett Role Performed Scrub - Other Scrub - Other Anesthesiologist Inhalation Therapy Aides Teacher Time In 04/17/18 13:14:00 04/17/18 13:14:00 04/17/18 [...] Time Out Colin Shirley MD, Given Participants Ashlee Rene RN, Brown CAA, Yvonne Briggs, Oliver ZARATE, Stas Valle Cigar Head Piercer, Jelani Bess Kirstyn K Time Out Complete [...] and tissue Entry 1 Skin Integrity Intact, [place], Warm, and Skin Abnormality No Dry Outcomes [...] caused by extraneous objects Transport To OR Pre-Care Text: Transports according to individual needs. Evaluates for signs and symptoms of skin and tissue injury as a result of transfer or transport Entry 1 Via Cart By Ashlee Rene RN Safety Precautions Safety Strap, Side Outcomes Met? Yes Rails Up Last Modified By: Ahslee Rene RN 04/17/18 07:23:42 Post-Care Text: The patient is free from signs and symptoms of injury related to transfer/transport Departure From OR Pre-Care Text: Transports according to individual needs. Evaluates for signs and symptoms of skin and tissue injury as a result of transfer or transport. Entry 1 Via Cart Safety Precautions Safety Strap, Side Rails Up PostOp Destination PACU Transported By Ashlee Rene RN Patient Status Stable Skin. Condition Intact, [place], Warm, and Dry Airway Maintenance Oxygen in Use? No Airway Device N/A Outcomes Met? Yes Last Modified By: Ashlee Rene RN 04/17/18 07:23:58 Post-Care Text: The patient is free from signs and symptoms of injury related to transfer/transport General Comments: REPORT GIVEN TO ACETYLENE TORCH BURNER/ AW computer networker Administration FT Pre-Care Text: Verifies allergies, administers prescribed medications and solutions, administers prescribed antibiotic therapy and immunizing agents as ordered, evaluates response to medications Administers prescribed medications and solutions Entry 1 Expiration Date Yes Outcomes Met? Yes Verified Last Modified By: Ashlee Rene RN 04/17/18 07:24:05 Post-Care Text: The patient received appropriate medication(s) safely administered during the perioperative period For [facility] please see scanned medication reconcilliation form [...] Oreilly CST 04/20/18 09:38 Normal [facility] History and Physicalon 04-17 History and Physical Date: 03/10/2018 2:15 PMPatient Name: Rj ColbertAccopallavi #: [id number]: MaleDOB (age): 2000 (17)Provider: Annie Benton Complaint: Change in Bowel habits Blood in StoolHistory of Present Illness:17 years old -[place] male with multiple psychiatric problems, lives in a detention, referred to me to be evaluatedfor rectal [...] urgency, stool incontinence, stomachPrinted on 04/10/2018 Rj Colbert, [id number], 2000 Page 1 of 4Printed on 04/10/2018 Rj Colbert, [id number], 1998cramps, straining. Denies abdominal pain, abdominal swelling, [...] up blood.Vital Signs:BP(mmHg)Pulse(ppm) Rhythm Weight (lbs/oz) Resp/min Zapn042/68 82 Regular 191 / 12 98.3 (F)Physical [...] Colonoscopy will be performed at [facility] .Printed on 04/10/2018 [place], 2000 Page 2 of 4Printed on 04/10/2018 Rj Colbert, 92275, 2000Risk & Medical Necessity: Diagnosis and management options are Extensive. The amount of data reviewedand/or ordered is Moderate. The level of risk is Moderate.Colin Shirley MD Rj Colbert, 05333, 2000 Page 3 of 4Printed on 04/10/2018 Rj Colbert, 79608, 1998Printed on 04/10/2018 Rj Colbert, 26577, 2000 Page 4 of 4Printed on 04/10/2018 Rj Colbert, 15373, 1998no change Normal [facility] Comment on above: Result Comment: Elec tronically Signed By: Colin Shirley MD\.br\Date and Time Signed: 04/17/18 13:15 EDT Inpatient Patient Summaryon 04-17-2018 Inpatient [facility] Instructions[facility] INFORMATION Name: RJ COLBERT PHYSICIANS Admitting Physician: Javier Shirley MD Physician: Colin Shirley MD PCP: Murphy WEISS MD Diagnosis: Rectal prolapse Comment: PATIENT EDUCATION INFORMATIONInstructions: Medication Leaflets:Follow up:With: Address: When: [facility], [address] [place] [address] Business (1) Within 1 to 2 weeks MEDICATION LISTComment: [place] [facility] Main OR PACU I Recordon 03-28 Main OR PACU I Record PACU Phase I Document Type FT Summary Primary Physician: Colin Shirley MD Finalized Date/Time: 04/17/18 14:14:33 Pt. Name: RJ COLBERT /Sex: 2000 Male Med Rec #: [id number] Physician: Colin Shirley MD Financial #: [id number] Pt. Type: O Room/Bed: / Admit/Disch: 04/17/18 [...] By: Essie Guzman RN 04/17/18 14:14 Normal [facility] Main OR Preoperative Recordo n 04-17-2018 Main OR Preoperative Record Holding Area Document Type FT Summary Primary Physician: Colin Shirley MD Finalized Date/Time: 04/17/18 09:56:12 Pt. Name: SASCHA COLBRETGenia TrimbleB./Sex: 2000 Male Med Rec #: [id number] Physician: Colin Shirley MD Financial #: [id number] Pt. Type: O Room/Bed: / Admit/Disch: 04/17/18 [...] Signed By: Viki James RN 04/17/18 09:56 [facility] Patient Education - Texton 0 04-17-2018 Patient Education - Text [facility] Coding Summary.on 04-02-2018 Coding Summary. CODING DATE: 018 [facility] STATUS: Home (Routine DC) PAYOR: Medicaid EAPG [...] PROC EAPG STAT DESCRIPTION DOCTOR NAME DATE 06507 0133 Sigmoidoscopy, flexible; Colin Shirley MD 03/30/2018 with biopsy, single or multiple 74 Discontinued [facility] Procedure After Administration of Anesthe 07590 Anesthesia for lower Colin Shirley MD 03/30/2018 intestinal endoscopic procedures, endoscope introduced distal to duodenum; not otherwise specified NOTE: The code number assigned matches the documented diagnosis and / or procedure in the patient's chart. However, the narrative phrase printed from the coding software may appear abbreviated, or result in slightly different terminology. Coded By: Sary Little Date Saved: 04/02/2018 04:16 pm [facility] Progress Note-Physicianon Progress Note-Physician Patient: RJ COLBERT [...] Cardiovascular: Regular rhythm. Neurologic: Alert, Oriented. Plan [place] [employer] Anesthesiologists (ASA) physical status classification: Class II. Anesthetic Preoperative Plan Anesthesia: General. . Anesthetic plan, risks, benefits, and alternatives discussed with the patient and/or family. Communication: face to face with (patient 5 minutes, Patient educated on smoking cesstation). Normal [facility] Comment on above: Result Comment: Elec tronically Signed By: Quincy Ojeda Jr, DO\Date and Time Signed: 04/01/18 07:53 EDT History and Physicalon 03-30 History and Physical Date: 03/10/2018 2:15 PMPatient Name: Rj Lepe #: [id number]: MaleDOB (age): 2000 (17)Provider: Annie Benton Complaint: Change in Bowel habits Blood in StoolHistory of Present Illness:17 years old -[place] male with multiple psychiatric problems, lives in a detention, referred to me to be evaluatedfor rectal [...] stool incontinence, stomachPrinted on 03/26/2018 Rj Colbert, 23305, 2000 Page 1 of 4Printed on 03/26/2018 Rj Colbert, 86755, 1998cramps, straining. Denies abdominal pain, abdominal swelling, [...] up blood.Vital Signs:BP(mmHg)Pulse(ppm) Rhythm Weight (lbs/oz) Resp/min Eqsy817/68 82 Regular 191 / 12 98.3 (F)Physical [...] Colonoscopy will be performed at [facility] .Printed on 03/26/2018 Rj Colbert [id number], 2000 Page 2 of 4Printed on 03/26/2018 Rj Colbert [id number], 1998Risk & Medical Necessity: Diagnosis and management options are Extensive. The amount of data reviewedand/or ordered is Moderate. The level of risk is Moderate.Colin Shirley MD Rj Colbert [id number], 2000 Page 3 of 4Printed on 03/26/2018 Rj Colbert [id number], 1998Printed on 03/26/2018 Rj Colbert [id number], 2000 Page 4 of 4Printed on 03/26/2018 Rj Colbert, 93422, 1998No change Normal [facility] Comment on above: Result Comment: Elec tronically Signed By: Colin Shirley MD\.br\Date and Time Signed: 03/30/18 10:52 EDT Inpatient Patient Summaryon 03-30-2018 [facility] Instructions[facility]ERSON INFORMATION Name: RJ COLBERT PHYSICIANS Admitting Physician: Debbi Shirley MDending Physician: Colin Shirley MD PCP: Murphy WEISS MD Diagnosis: Internal hemorrhoids Comment: PATIENT EDUCATION INFORMATIONInstructions: Medication Leaflets:Follow up:With: Address: When: [facility], [address] [place] [address], [place] [phone] Business (1) Within 1 to 2 weeks MEDICATION LISTComment: Normal [facility] Main OR Intraoperative Recor don 03-30-2018 Main OR Intraoperative Record IntraOp Document Type FT Summary Primary Physician: Colin Shirley MD Finalized Date/Time: 03/30/18 11:37:17 Pt. Name: RJ COLBERT /Sex: 2000 Male Med Rec #: [id number] Physician: Colin Shirley MD Financial #: [id number] Pt. Type: O Room/Bed: / Admit/Disch: 03/30/18 [...] Boyd CST, Tori Role Performed Anesthesiologist of Outpatient Program Coordinator - Primary Scrub - Primary Record Time In 03/30/18 10:56:00 03/30/18 10:56:00 03/30/18 10:56:00 Time Out 03/30/18 11:13:00 03/30/18 11:13:00 03/30/18 11:13:00 Procedure COLONOSCOPY(.) COLONOSCOPY(.) COLONOSCOPY(.) Comments Last Modified By: Paul RN, Francy Miller RN, Francy Miller RN, Francy Gregory 03/30/18 11:14:48 03/30/18 11:14:48 03/30/18 11:14:48 Entry 4 Entry 5 Case Attendee Casper GAUTAM, Colin [facility] Tech, Magi Briggs Role Performed Surgeon - Primary [...] Participants Paul TREVINO, Casper Toussaint MD, Colin Hyder Cigar Head Piercer, Oliver Bess CST, Tori Time Out Complete [...] and tissue Entry 1 Skin Integrity Intact, [place], Warm, and Skin Abnormality No Dry Outcomes [...] Safety Strap Press Points Checked Yes By Paul Francy TREVINO Marsh Jr DO, James A Outcomes Met? [...] RN Patient Status Stable Skin. Condition Intact, [place], Warm, and Dry Airway Maintenance Oxygen in Use? No Airway Device N/A Outcomes Met? Yes Last Modified By: Francy Miller RN 03/30/18 07:37:17 Post-Care Text: The patient is free from signs and symptoms of injury related to transfer/transport General Comments: Report given to PACU,RN./RICHARD,computer networker Administration FT Pre-Care Text: Verifies allergies, administers prescribed medications and solutions, administers prescribed antibiotic therapy and immunizing agents as ordered, evaluates response to medications Administers prescribed medications and solutions Entry 1 Expiration Date Yes Outcomes Met? Yes Verified Last Modified By: Francy Miller RN 03/30/18 07:37:26 Post-Care Text: The patient received appropriate medication(s) safely administered during the perioperative period For [place] please see scanned medication reconcilliation form for [...] 11:14 Addie Oreilly CST 03/30/18 11:37 Normal [facility] Main OR PACU I Recordon Main OR PACU I Record PACU Phase I Document Type FT Summary Primary Physician: Colin Shirley MD Finalized Date/Time: 03/30/18 11:29:28 Pt. Name: RJ COLBERT /Sex: 2000 Male Med Rec #: [id number] Physician: Colin Shirley MD Financial #: [id number] Pt. Type: O Room/Bed: / Admit/Disch: 03/30/18 [...] Guzman RN 03/30/18 11:29 Normal [facility] Main OR Preoperative Recordo n 03-30-2018 Main OR Preoperative Record Holding Area Document Type FT Summary Primary Physician: Colin Shirley MD Finalized Date/Time: 03/30/18 10:16:59 Pt. Name: RJ COLBERT/Sex: 2000 Male Med Rec #: [id number] Physician: Colin Shirley MD Financial #: [id number] Pt. Type: O Room/Bed: / Admit/Disch: 03/30/18 [...] Gómez RN 03/30/18 10:16 Normal [facility] Patient Education - Texton 0 03-30-2018 Patient Education - Text [facility] Progress Note-Physicianon Progress Note-Physician Patient: RJ COLBERT [...] Transfer/ Discharge: Condition stable. Normal [facility] Comment on above: Result Comment: Elec tronically Signed By: Rusty Fagan DO, Quincy Gregory\.karen\Date and Time Signed: 03/30/18 11:55 EDT Vital Signs Date Time Vital Sign Value Performing Clinician Faci lity 01-26-2024 14:240400 Body height 177.8 cm Reynold Kuo MD Work Phone: [facility] 01-26-2024 14:24-0400 Body mass index (BMI) [Ratio] 25.75 kg/m2 Reynold Kuo MD Work Phone: [facility] 01-26-2024 14:24040 Body weight 81.4 kg Reynold Kuo MD Work Phone: [facility] 03-28-2022 11:11-0400 Body height 180.3 cm Arnold Genao MD Work Phone: [facility] 03-28-2022 11:11-0400 Body weight 90.27 kg Arnold Genao MD Work Phone: [facility] 03-28-2022 11:11-0400 Diastolic blood pressure 65 mm[Hg] Arnold Genao MD Work Phone: [facility] 03-28-2022 11:11-0400 Heart rate 80 /min Arnold Genao MD Work Phone: [facility] 03-28-2022 11:11-0400 SaO2% (BldA) [Mass fraction] 100 % Arnold Genao MD Work Phone: [facility] 03-28-2022 11:11-0400 Systolic blood pressure 108 mm[Hg] Arnold Genao MD Work Phone: [facility] Encounters Encounter Date Encounter Type Care Provider Facility Start: 04-08-2024 ambulatory Jean Carlos Boudreaux [facility]ility[facility] Start: 01-26-2024 End: 01-26-2024 ambulatory REYNOLD KUO [facility] Start: 01-26-2024 End: 01-26-2024 Postop follow up visit related to original px Reynold Kuo MD Work Phone: [facility] Comment on above: Rectal prolapse (Charlee hortensia Dx) Start: 01-10-2024 End: 01-10-2024 [facility] Start: 01-09-2024 End: 01-10-2024 Evaluation and management of inpatient BENSON WEISS [facility] Start: 01-08-2024 End: 01-08-2024 Emergency department patient visit BENSON WEISS [facility] Start: 01-07-2024 End: 01-07-2024 ambulatory BENSON WEISS Not Available Start: 03-26-[address] DOCTOR MISC Facility [...] y Dx) Start: 04-17-2018 End: 04-18-2018 Ambulatory [facility] Start: 03-30-2018 End: 03-31-2018 Ambulatory [facility] Plan of Treatment Date Care Activity Detail Author Start: 08-05-2029 DTaP,Tdap and Td Vaccines (8 - Td or Tdap) DTaP,Tdap and Td Vaccines (8 - Td or Tdap) [facility] Start: 01-25-2025 Adult BMI Screening Adult BMI Screening [facility] Start: 01-25-2025 Tobacco Screening Tobacco Screening [facility] Start: 06-27-2024 Influenza vaccination Influenza Vaccine [facility] Start: 06-27-2023 COVID-19 Vaccine ( season) COVID-19 Vaccine ( season) [facility] Start: 2017 Urine microalbumin profile DTAP,TDAP,TD (1 - Tdap) [facility] Start: 2016 Adult BMI Follow Up Plan Adult BMI Follow Up Plan [facility] Start: 2016 HEPATITIS C SCREENING HEPATITIS C SCREENING [facility] Start: 2016 HIV SCREENING HIV SCREENING [facility] Start: 2012 PEDS TO ADULT TRANSITION ANNUAL ASSESSMENT PEDS TO ADULT TRANSITION ANNUAL ASSESSMENT [facility] Start: 2010 Adult depression screening assessment DEPRESSION SCREENING [facility] Start: 2010 PEDS TO ADULT TRANSITION INITIAL DISCUSSION PEDS TO ADULT TRANSITION INITIAL DISCUSSION [facility] Start: 2009 HPV VACCINE (1 - Male 2-dose series) HPV VACCINE (1 - Male 2-dose series) [facility] Start: 2008 MENINGOCOCCAL B: Consider based on risk (1 of 2 - Risk Bexsero 2-dose series) MENINGOCOCCAL B: Consider based on risk (1 of 2 - Risk Bexsero 2-dose series) [facility] Immunizations Immunization Date Immunization Notes Care Provider Fa jordin 12-08-2020 COVID-19, mRNA, LNP- S, PF, 30mcg/0.3mL Dose Reynold Kuo MD Work Phone: [facility] 11-17-2020 COVID-19, mRNA, LNP- S, PF, 30mcg/0.3mL Dose Reynold Kuo MD Work Phone: [facility] 08-31-2020 influenza, injectabl e, quadrivalent, preservative free Reynold Kuo MD Work Phone: [facility] 08-31-2020 influenza virus vacc ine, unspecified formulation Reynold Kuo MD Work Phone: [facility] 08-18-2019 influenza, injectabl e, quadrivalent, preservative free Reynold Kuo MD Work Phone: [facility] 08-05-2019 tetanus toxoid, redu diamond diphtheria toxoid, and acellular pertussis vaccine, adsorbed Reynold Kuo MD Work Phone: [facility] 12-02-2017 tetanus toxoid, redu diamond diphtheria toxoid, and acellular pertussis vaccine, adsorbed Reynold Kuo MD Work Phone: [facility] 08-21-2017 influenza, injectabl e, quadrivalent, preservative free Reynold Kuo MD Work Phone: [facility] 08-28-2016 influenza, injectable,quadrivalent, preservative free, pediatric Reynold Kuo MD Work Phone: [facility] 08-28-2016 meningococcal polysaccharide (groups A, C, Y and W-135) diphtheria toxoid conjugate vaccine (MCV4P) Reynold Kuo MD Work Phone: [facility] 08-16-2015 influenza, seasonal, injectable Reynold Kuo MD Work Phone: [facility] 08-07-2011 tetanus toxoid, redu diamond diphtheria toxoid, and acellular pertussis vaccine, adsorbed Reynold Kuo MD Work Phone: [facility] 08-17-2008 hepatitis A vaccine, pediatric/adolescent dosage, 2 dose schedule Reynold Kou MD Work Phone: [facility] 02-02-2008 hepatitis A vaccine, pediatric/adolescent dosage, 2 dose schedule Reynold Kuo MD Work Phone: [facility] 02-02-2008 varicella virus vaccine Edwin Kuo MD Work Phone: [facility] 01-18-2005 diphtheria, tetanus toxoids and acellular pertussis vaccine Reynold Kuo MD Work Phone: [facility] 07-18-2004 DTaP-hepatitis B and poliovirus vaccine Reynold Kuo MD Work Phone: [facility] 07-17-2004 measles, mumps and rubella virus vaccine Reynold Kuo MD Work Phone: [facility] 02-08-2003 diphtheria, tetanus toxoids and acellular pertussis vaccine, unspecified formulation Reynold Kuo MD Work Phone: [facility] 02-08-2003 haemophilus influenz ae type b vaccine, conjugate unspecified formulation Reynold Kuo MD Work Phone: [facility] 02-08-2003 hepatitis B vaccine, pediatric or pediatric/adolescent dosage Reynold Kuo MD Work Phone: [facility] 02-08-2003 measles, mumps and rubella virus vaccine Reynold Kuo MD Work Phone: [facility] 02-08-2003 poliovirus vaccine, unspecified formulation Reynold Kuo MD Work Phone: [facility] 02-08-2003 varicella virus vaccine Edwin Kuo MD Work Phone: [facility] 2000 diphtheria, tetanus toxoids and acellular pertussis vaccine, unspecified formulation Reynold Kuo MD Work Phone: [facility] 2000 haemophilus influenz ae type b vaccine, conjugate unspecified formulation Reynold Kuo MD Work Phone: [facility] 2000 poliovirus vaccine, unspecified formulation Reynold Kuo MD Work Phone: [facility] 2000 hepatitis B vaccine, pediatric or pediatric/adolescent dosage Reynold Kuo MD Work Phone: [facility] 2000 hepatitis B vaccine, pediatric or pediatric/adolescent dosage Reynold Kuo MD Work Phone: [facility] Payers Date Payer Category Payer Medicaid [id number] 2023 Self-pay 2021 [place] [id number] 2021-Present [phone] [address] [place] [address] Medicaid [id number] 2018 Medicare MEDICARE MEDICAR E A AND B [id number] 2018-Present [phone] [address] [address] [place] [address] Medicare [id number] 2018 Medicare MEDICARE MEDICAR E PART A & B [id number] 2018-Present [phone] [address] [place] [address] [id number] 2018 [place] [id number] 2018-Present [phone] [address] [place] [address] [id number] 1998 Unknown [id number] 1998 Unknown [id number] [id number] 1998 Unknown [id number] [id number] 1998 Unknown [id number] [id number] 1998 Unknown [id number] [id number] 1998 Unknown [id number] [id number] 1998 Unknown [id number] 2.16.840.1.459925.3.579.2.593 1998 Unknown [id number] 2.16.840.1.714411.3.579.2.593 1998 Unknown [id number] 2.16.840.1.476518.3.579.2.593 1998 Unknown [id number] 2.16.840.1.019323.3.579.2.593 1998 Unknown [id number] 2.16.840.1.994273.3.579.2.593 1998 Unknown [id number] 2.16.840.1.078206.3.579.2.593 1998 Unknown [id number] 2.16.840.1.504505.3.579.2.1259 1998 Unknown [id number] 2.16.840.1.107668.3.579.2.1286 1998 Unknown [id number] 2.16.840.1.714893.3.579.2.1286 1998 Unknown [id number] 2.16.840.1.362333.3.579.2.1286 1998 Unknown [id number] 2.16.840.1.902347.3.579.2.1286 1998 Unknown [id number] 1961 Medicaid [id number] 1961 Medicare [id number] Social History Date Type Detail Facility Start: 03-01-2015 End: 01-26-2024 Tobacco smoking status NHIS Never smoked tobacco [facility] Start: 03-01-2015 End: 01-26-2024 Tobacco use and exposure Smokeless tobacco non-user [facility] Start: 03-28-2022 Alcohol intake 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 (finding) [facility] Start: 2000 Sex Assigned At Not on file [facility] Start: 03-18-2022 End: 03-28-2022 Exposure to SARS-CoV-2 (event) Not sure [facility] Start: 01-26-2024 Alcohol intake Lifetime non-d juan (finding) [facility] Start: 11-20-2020 End: 01-09-2024 History of Social function [facility] Start: 11-20-2020 End: 01-09-2024 [facility] Utilities [facility] Has the electric, [employer], oil, or water [employer] threatened to shut off services in your home in past 12Mo [facility] How often to you hav e a drink containing alcohol? Never [facility] How many standard drinks containing alcohol do you have on a typical day? Patient does not drink [facility] Goals Date Patient Goal Desired Activity /State Personal health goal Comment on above: Formatting of this n ote might be different from the original. Evaluation of progress towards goal: Soren Conner, back to detention. Clinical Notes 06-29-2021 to 01-26-2024 Reynold Kuo MD - 01/26/2024 3:15 PM EDTTelephone Encounter - Charley Mcclelland RN - 03/28/2022 4:13 PM EDTTelephone Encounter - Sara BAEZA - 03/28/2022 3:43 PM EDT Note Date & Type Note Facility 01-26-2024 History of Presen t illness Narrative Images from the original note were not included. [facility] [address] [id number] Patient: Rj Colbert Date of : 2000 Encounter Date: 01/26/2024 History of Present Illness: The patient is 23 y.o. male and presents for postoperative follow-up s/p repair of rectal prolapse. Patient presented with incarcerated prolapse. He underwent Altemeier procedure. Patient now follows up. Patient is accompanied by quality assurance supervisor. He is doing well. He denies any abdominal pain. He reports he is having good bowel function. He has no complaints. Physical Exam: No evidence of prolapse Assessment and Plan: There are no diagnoses linked to this encounter. Follow-up: Patient follows up after surgery. Patient is doing well at this time. I discussed that bowel function will continue to change with some time. He can return to full activity Reynold Kuo MD documented in this encounter [facility] 03-28-2022 Miscellaneous Notes Spoke with the pharmacist and she states that she does not provide food items. She will speak with the nurse at the detention. Pharmacy, [facility], [facility], phone , any pharmacist to clarify about carbonate? CALM is detention able to order as food item? Please call to discuss. documented in this encounter [facility] 03-28-2022 Miscellaneous Notes Opened in error documented in this encounter [facility] 03-28-2022 Miscellaneous Notes Addended by: ARNOLD GENAO on: 03/28/2022 03:11 PM Modules accepted: Orders Addended by: CHARLEY MCCLELLAND on: 03/28/2022 02:47 PM Modules accepted: Orders documented in this encounter [facility] 03-28-2022 Note HNO ID: [id number] Author: Arnold Genao MD Service: ? Author Type: Physician Type: Progress Notes Filed: 03/28/2022 11:58 AM Note Text: COLORECTAL SURGERY March 28, 2022 Rj Colbert 21 year old Chief Complaint: hematochezia History of Present Illness: Rj Colbert is a 21 year old male presents to the office for evaluation of hematochezia. Last seen in the office on 11/16/21 with Cristal Nava SPECIAL EDUCATION RESOURCE ROOM TEACHER for follow up visit after he underwent [...] exam Anorectal: External exam reveals: see below Sanitary Landfill Supervisor present: yes Assessment Assessment and Plan: Rj Colbert is a 21 year old male with straining and occasional rectal bleeding. Today, we talked about adding a magnesium supplement CALM to his regimen to decrease straining. I am of the opinion that more surgery is not the best option at this time. Arnold Genao MD Colorectal Surgery [facility] 03-28-2022 Nurse Note Calm education given for constipation. What is the reason for your visit today? Established patient presents for hematochezia. Who is your referring physician? Are you having poor oral intake? NO Have you had unintentional weight loss of 15 lbs/7 Kg in the last 3-6 months? NO Bowels: regular Wound: None Temperature: No Drains: No documented in this encounter [facility] 03-28-2022 History of Presen t [...] exam Anorectal: External exam reveals: see below Sanitary Landfill Supervisor present: yes Assessment Assessment and Plan: Rj Colbert is a 21 year old male with straining and occasional rectal bleeding. Today, we talked about adding a magnesium supplement CALM to his regimen to decrease straining. I am of the opinion that more surgery is not the best option at this time. Arnold Genao MD Colorectal Surgery documented in this encounter [facility] 11-16-2021 Note HNO ID: [id number] Author: Cristal Nava APRN.MANAGER VAN Service: ? Author Type: Nurse Practitioner Type: [...] results with patient and POA. Cristal Nava APRN.MANAGER VAN Colorectal Surgery [facility] 10-17-2021 Note HNO ID: [id number] Author: Hunter Massey APRN.AVIATION PROGRAM MANAGER Service: Anesthesiology Author Type: Nurse Swimming Pool Serviceperson Type: Anesthesia Procedure Notes Filed: 10/17/2021 8:55 AM Note Text: ANESTHESIOLOGY PROCEDURE NOTE Airway General Information Procedure Start Time/Medication Administration: 10/17/2021 8:49 AM Patient location during procedure: OR Timeout Performed Pre-procedure: timeout performed Consent Obtained: Yes Patient identity confirmed: arm band, care juice bar team member and patient Staffing Anesthesiologist: Michael Martínez MD AVIATION PROGRAM MANAGER: Hunter Massey APRN.AVIATION PROGRAM MANAGER Performed by: SAMAN Indications and Patient Condition Preoxygenated: yes Patient position: sniffing Manual In-Line Stabilization: No Difficult Mask: No Indications for airway management: anesthesia anesthesia circuit Method: asleep Cricoid Pressure: No Final Airway Details Final airway type: supraglottic airway Number of attempts at approach: 1 Final Supraglottic Airway: i-gel Size 4 Seal Adequate: yes Airway not difficult SIGNATURE: Hunter Massey APRN.AVIATION PROGRAM MANAGER PATIENT NAME: Rj Colbert DATE: October 17, 2021 TIME: 8:54 AM CSN: [id number] [facility] 08-31-2021 Note HNO ID: [id number] Author: Arnold Genao MD Service: ? Author [...] Anorectal: External exam reveals : see below Sanitary Landfill Supervisor present: yes Assessment Assessment and Plan: Rj Colbert is a 21 year old male who is doing relatively well after his recent rubber band ligation. He still has some rectal bleeding and it is difficult to assess the exact amount. If the bleeding persists we will consider internal hemorrhoidectomy. Arnold Genao MD Colorectal Surgery [facility] 07-12-2021 Note HNO ID: [id number] Author: Shanthi Chapman APRN.AVIATION PROGRAM MANAGER Service: Anesthesiology Author Type: Nurse Swimming Pool Serviceperson Type: Anesthesia Procedure Notes Filed: 07/12/2021 10:54 AM Note Text: ANESTHESIOLOGY PROCEDURE NOTE Airway General Information Procedure Start Time/Medication Administration: 07/12/2021 10:48 AM Patient location during procedure: OR Patient identity confirmed: arm band, care juice bar team member and patient Staffing AVIATION PROGRAM MANAGER: Shanthi Chapman APRN.AVIATION PROGRAM MANAGER Performed by: AVIATION PROGRAM MANAGER Indications and Patient Condition Preoxygenated: yes Patient [...] no Airway not difficult SIGNATURE: Shanthi Chapman APRN.CRNA PATIENT NAME: Rj Colbert DATE: July 12, 2021 TIME: 10:53 AM CSN: [id number] [facility] 06-29-2021 Note HNO ID: [id number] Author: Arnold Genao MD Service: ? 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 They relate that he is having around [...] (222 lb 4.8 oz) BMI 31.90 kg/m? Sanitary Landfill Supervisor present: Yes Rj Colbert is a 21 year old male presents with complaint of rectal bleeding with prolapsing Grade 3 internal hemorrhoids on exam. Our plan is to perform an EUA and rubber band ligation of internal hemorrhoids at the [facility]. Medical Decision Making: Arnold Genao MD Colorectal Surgery [facility] Evaluation note Diagnosis Hematochezia- Primary Blood in stool [facility] Rectal prolapse- Primary [facility] filed[facility] Summary Purpose Family History No Family History Records FoundNo Family History Records FoundNo Family History Records FoundNo Family History Records FoundNo Family History Records FoundNo Family History Records FoundNo Family History Records FoundNo Family History Records Found Advance Directives No Advanced Directives Records FoundDocuments on File Type Date 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 Advance Directive(s) 07/09/2021 9:04 AM Latest Code Status on File Code Status Date Activated Date Inactivated Comments Full Code 01/09/2024 4:52 AM 01/10/2024 3:12 PM Additional Source Comments (unrecognized sect ion and content) No Status Records FoundNo Status Records FoundNo Status Records FoundNo Status Records FoundNo Status Records FoundNo Status Records FoundNo Status Records FoundNo Status Records Found INFORMATION SOURCE (unrecogn ized section and content) DATE CREATED AUTHOR 05/01/2018 Elio Ordonez [facility] DATE CREATED AUTHOR AUTHOR'S ORGANIZ ATION [facility] DATE CREATED AUTHOR AUTHOR'S ORGANIZ ATION 03/29/2022 [facility] DATE CREATED AUTHOR AUTHOR'S ORGANIZ ATION 04/04/2023 [facility] DATE CREATED AUTHOR AUTHOR'S ORGANIZ ATION 01/08/2024 [facility] EPIC DATE CREATED AUTHOR AUTHOR'S ORGANIZ ATION 01/10/2024 [facility] DATE CREATED AUTHOR AUTHOR'S ORGANIZ ATION 01/27/2024 [facility] DATE CREATED AUTHOR AUTHOR'S ORGANIZ ATION 04/09/2024 [facility] Source Comments (unrecognize d section and content) In the event this informatio n is protected by the Federal Confidentiality of Alcohol and Drug Abuse Patient Records regulations: The Federal rules restrict any use of the information to criminally investigate or prosecute any alcohol or drug abuse patient.[facility] the event this information is protected by the Federal Confidentiality of Alcohol and Drug Abuse Patient Records regulations: The Federal rules restrict any use of the information to criminally investigate or prosecute any alcohol or drug abuse patient.[facility] the event this information is protected by the Federal Confidentiality of Alcohol and Drug Abuse Patient Records regulations: The Federal rules restrict any use of the information to criminally investigate or prosecute any alcohol or drug abuse patient.[facility] Reason for Visit (unrecogniz ed section and content) Reason Comments Established Patient Follow-Up Rectal Bleeding Reason Comments Opened In Error no documentation-err or Reason Comments Medication Problem magnesium carbonate? vs? CALM Reason Comments Post-op 2 week Care Teams (unrecognized sec tion and content) Lean Facilitator Relationship Specialty Start Date End Date Benson Weiss MD [address] [place] [address] PCP - General Family Medicine 01/08/24 FOR RECORDS PERTAINING TO PATIENTS WHO ARE [...] BE BASED ON THE PRIMARY CLINICAL RECORDS. [employer] [facility]. provides no warranty or guarantee of the accuracy or completeness of information in this document.
[2024-04-16 16:30] LABS: Basophils Percent Auto 0.4 % (0.2-2.0); Eosinophils Absolute Auto 0.1 10^3/uL (0.0-0.7); Eosinophils Percent Auto 0.8 % (0.9-7.0); Hematocrit 34.3 % (42.0-54.0); Hemoglobin 8.9 g/dL (14.0-18.0); Immature Granulocytes Abs Auto 0.02 10^3/uL (0.00-0.03); Immature Granulocytes Pct Auto 0.3 % (0.0-0.5); Lymphocytes Absolute Auto 1.7 10^3/uL (1.2-3.8); Lymphocytes Percent Auto 22.9 % (20.5-60.0); Mean Corpuscular HGB Conc 25.9 g/dL (29.9-35.2); Mean Corpuscular Volume 61.8 fL (80.0-94.0); Mean Platelet Volume 9.4 fL (9.5-13.5); Monocytes Percent Auto 12.7 % (1.7-12.0); Neutrophils Absolute Auto 4.7 10^3/uL (1.4-6.5); Neutrophils Percent Auto 62.9 % (43.0-75.0); Platelet Count 321 10^3/uL (150-450); Red Cell Distribution Width 21.7 % (11.0-15.0); White Blood Count 7.5 10^3/uL (4.0-11.0)
[2024-04-16 17:13] LABS: Red Blood Count 5.55 10^6/uL (4.70-6.10)
== END 2024-04-16 15:56 | disposition home or self-care (01) ==
LOC: LAB 15:57
PROVIDERS: PCP Family Medicine
DX: F20.9 Schizophrenia, unspecified (principal)
CPT/HCPCS: 36415; 85025

== ENCOUNTER 2024-05-29 08:07 | Outpatient (OUT) | payer MEDICARE, MEDICAID, SELFPAY ==
--- OUTSIDE RECORDS SUMMARY | 2024-05-29 08:11 | XMS_ITS ---
Patient Summarization (C-CDA 2.1 CCD) Created on: May 29, 2024 Rj Colbert : 2000 Sex: Male Author Organization Sample organization Care Team Providers Care Data Processing Systems Project Planner Name Role Phone Salam, Shaw Unavailable Unavailable Salam, Shaw Unavailable Unavailable Salam, Shaw Unavailable Unavailable NADERER, BENSON~[phone] UNKNOWN Unavailable Unavailable Salam, Shaw Unavailable Unavailable Salam, Shaw Unavailable Unavailable Salam, Shaw Unavailable Unavailable NADERER, BENSON~[id number] UNKNOWN Unavailable Unavailable Unavailable Primary Care Provider [...] MISC, DR VALDOVINOS Consulting Unavailable NADERER, DR ORTIZ A Primary [...] DOCTOR Consulting Unavailable NADERER, DR BENSON Gregory Attending Unavailable NADERER, DR BENSON Gregory Admitting Unavailable NADERER, DR BENSON Gregory Primary Care Unavailable MISC, DOCTOR Consulting Unavailable NADERER, DR BENSON Gregory Primary Care Unavailable MISC, DOCTOR Admitting Unavailable MISC, DR DOCTOR Attending Unavailable MISC, DR DOCTOR Consulting Unavailable NADERER, DR BENSON Gregory Attending Unavailable NADERER, DR BENSON Gregory Admitting Unavailable NADERER, DR BENSON Gregory Primary Care Unavailable MISC, DR VALDOVINOS Consulting Unavailable NADERER, DR BENSON Gregory Attending Unavailable NADERER, DR BENSON Gregory Admitting Unavailable NADERER, DR BENSON Gregory Primary Care Unavailable MISC, DR VALDOVINOS Consulting Unavailable NADERER, DR BENSON Gregory Primary Care Unavailable MISC, DR VALDOVINOS Admitting Unavailable MISC, DOCTOR Attending Unavailable MISC, DOCTOR Attending Unavailable MISC, DOCTOR Admitting Unavailable MISC, DR VALDOVINOS Consulting Unavailable NADERER, DR BENSON Gregory Primary Care Unavailable NADERER, BENSON Attending Unavailable NADERER, BENSON Primary Care Unavailable CORINE, ZOË Schmidt Attending Unavailable Isela GAUTAM, Benson Primary Care Provider [phone] ISELA, BENSON Primary Care Unavailable TABITHA MERINO Attending Unavailable DARLING, PUSHPA Kong Admitting Unavailable PAUL, JOHN MIGUEL ÁNGEL Attending Unavailable NADERERoxana, BENSON Primary Care Unavailable REYNOLD KUO Attending Unavailable NADERER, BENSON Referring Unavailable NADERER, BENSON Primary Care Unavailable Jean Carlos Hdez Attending Unavailab Jean Carlos Powell Admitting Unavailab karen NO FAMILY, PHYSICIAN Primary Care Unavailable Allergies Allergy Classification Reported Allergen(s) Allergy Type Date of Onset Reaction(s) Facility (1 source) No Known Medication Allergies; Translations: [No Known Medication Allergies] Propensity to adverse reactions (disorder) [facility] Repository Encounters Encounter Date Encounter Type Care Provider Facility Start: 04-08-2024 ambulatory Jean Carlos Boudreaux acility:[facility] Start: 01-26-2024 End: 01-26-2024 ambulatory REYNOLD KUO [facility] Start: 01-26-2024 End: 01-26-2024 Postop follow up visit related to original px Reynold Kuo MD Work Phone: [facility] Comment on above: Rectal prolapse (Charlee hortensia Dx) Start: 01-10-2024 End: 01-10-2024 Evaluation and management of inpatient JOHN MIGUEL ÁNGEL PAUL [facility] Start: 01-09-2024 End: 01-10-2024 Evaluation and management of inpatient BENSON MIGUEL ANGELR [facility] Start: 01-08-2024 End: 01-08-2024 Emergency department patient visit BENSON WEISS [facility] Start: 01-07-2024 End: 01-07-2024 ambulatory BENSON WEISS [...] Dx) Start: 04-17-2018 End: 04-18-2018 Ambulatory [facility] Facility:[facility] Start: 03-30-2018 End: 03-31-2018 Ambulatory [facility] Facility:[facility] Goals Date Patient Goal Desired Activity /State Personal health goal Comment on above: Formatting of this n ote might be different from the original. Evaluation of progress towards goal: Guardian, Soren, states [facility]. Immunizations Immunization Date Immunization Notes Care Provider Fa cility 12-08-2020 COVID-19, mRNA, LNP- S, PF, 30mcg/0.3mL Dose Reynold Kuo MD Work Phone: [facility] 11-17-2020 COVID-19, mRNA, LNP- S, PF, 30mcg/0.3mL Dose Reynold Kuo MD Work Phone: [facility] 08-31-2020 influenza, injectabl e, quadrivalent, preservative free Reynold Kuo MD Work Phone: [facility] 08-31-2020 influenza virus vacc ine, unspecified formulation Reynold Kuo MD Work Phone: [facility] 08-18-2019 influenza, injectabl e, quadrivalent, preservative free Reynold Kuo MD Work Phone: [facility] 08-05-2019 tetanus toxoid, redu diamond diphtheria toxoid, and acellular pertussis vaccine, adsorbed Reynold Kuo MD Work Phone: [facility] 12-02-2017 tetanus toxoid, redu diamond diphtheria toxoid, and acellular pertussis vaccine, adsorbed Reynold Kuo MD Work Phone: [facility] 08-21-2017 influenza, injectabl e, quadrivalent, preservative free Reynold Kuo MD Work Phone: [facility] 08-28-2016 influenza, injectable,quadrivalent, preservative free, pediatric Reynold Kuo MD Work Phone: [facility] 08-28-2016 meningococcal polysaccharide (groups A, C, Y and W-135) diphtheria toxoid conjugate vaccine (MCV4P) Reynold Kuo MD Work Phone: [facility] 08-16-2015 influenza, seasonal, injectable Reynold Kuo MD Work Phone: [facility] 08-07-2011 tetanus toxoid, redu diamond diphtheria toxoid, and acellular pertussis vaccine, adsorbed Reynold Kuo MD Work Phone: [facility] 08-17-2008 hepatitis A vaccine, pediatric/adolescent dosage, 2 dose schedule Reynold Kuo MD Work Phone: [facility] 02-02-2008 hepatitis A vaccine, pediatric/adolescent dosage, 2 dose schedule Reynold Kuo MD Work Phone: [facility] 02-02-2008 varicella virus vaccine Edwin Kuo MD Work Phone: [facility] 01-18-2005 diphtheria, tetanus toxoids and acellular pertussis vaccine Reynold Kuo MD Work Phone: [facility] 07-18-2004 DTaP-hepatitis B and poliovirus vaccine Reynold Kuo MD Work Phone: [facility] 07-17-2004 measles, mumps and rubella virus vaccine Reynold Kuo MD Work Phone: [facility] 02-08-2003 diphtheria, tetanus toxoids and acellular pertussis vaccine, unspecified formulation Reynold Kuo MD Work Phone: [facility] 02-08-2003 haemophilus influenz ae type b vaccine, conjugate unspecified formulation Reynold Kuo MD Work Phone: [facility] 02-08-2003 hepatitis B vaccine, pediatric or pediatric/adolescent dosage Reynold Kuo MD Work Phone: [facility] 02-08-2003 measles, mumps and rubella virus vaccine Reynold Kuo MD Work Phone: [facility] 02-08-2003 poliovirus vaccine, unspecified formulation Reynold Kuo MD Work Phone: [facility] 02-08-2003 varicella virus vaccine Edwin Kuo MD Work Phone: [facility] 2000 diphtheria, tetanus toxoids and acellular pertussis vaccine, unspecified formulation Reynold Kuo MD Work Phone: [facility] 2000 haemophilus influenz ae type b vaccine, conjugate unspecified formulation Reynold Kuo MD Work Phone: [facility] 2000 poliovirus vaccine, unspecified formulation Reynold Kuo MD Work Phone: [facility] 2000 hepatitis B vaccine, pediatric or pediatric/adolescent dosage Reynold Kuo MD Work Phone: [facility] 2000 hepatitis B vaccine, pediatric or pediatric/adolescent dosage Reynold Kuo MD Work Phone: [facility] Medications Current Medications Medication Drug Class(es) Dates [...] Start: 10-17-2021 take 2 tablets by mo [facility] every six hours acetaminophen (TYLENOL) 325 mg tablet Take 2 tablets by mouth every 6 hours. 0 10/17/2021 Active Comment on above: Take 2 tablets by mo ut every 6 hours. benztropine mesylate 2 mg [...] day. 0 Active [facility] needed clonazePAM (KLONOPIN) [...] Start: 10-17-2021 take 2 tablets by mo [facility] every four hours as needed ibuprofen (MOTRIN) 200 mg tablet Take 2 tablets by mouth every 4 hours as needed for pain. 0 10/17/2021 Active Comment on above: Take 2 tablets by mo uth every 4 hours as needed for pain. [...] mouth nightly. 0 Active polyethylene glycol 3350 94849 mg powder for oral solution (4 sources) [...] 1 Packet by claribel th once daily. Payers Date Payer Category Payer Medicaid [id number] 2023 Self-pay 2021 [place] [id number] 2021-Present [phone] [address] [place] [address] Medicaid [id number] 2018 Medicare MEDICARE MEDICAR E A AND B [id number] 2018-Present [phone] [address] [address] [place] [address] Medicare [id number] 2018 Medicare MEDICARE MEDICAR E PART A & B [id number] 2018-Present [phone] [address] [place] [address] [id number] 2018 Medicaid MEDICAID [facility] EDICAID [id number] 2018-Present [phone] [address] [place] [address] [id number] 1998 Unknown [id number] 1998 Unknown [id number] 2.16.840.1.974985.3.579.2.593 1998 Unknown [id number] 2.16.840.1.562814.3.579.2.593 1998 Unknown [id number] 2.16.840.1.268271.3.579.2.593 1998 Unknown [id number] 2.16.840.1.516141.3.579.2.593 1998 Unknown [id number] 2.16.840.1.665093.3.579.2.593 1998 Unknown [id number] 2.16.840.1.679379.3.579.2.593 1998 Unknown [id number] 2.16.840.1.870574.3.579.2.593 1998 Unknown [id number] 2.16.840.1.848828.3.579.2.593 1998 Unknown [id number] 2.16.840.1.295485.3.579.2.593 1998 Unknown [id number] 2.16.840.1.655512.3.579.2.593 1998 Unknown [id number] 2.16.840.1.133643.3.579.2.593 1998 Unknown [id number] 2.16.840.1.723357.3.579.2.1259 1998 Unknown [id number] 2.16.840.1.065683.3.579.2.1286 1998 Unknown [id number] 2.16.840.1.765895.3.579.2.1286 1998 Unknown [id number] 2.16.840.1.679666.3.579.2.1286 1998 Unknown [id number] 2.16.840.1.372147.3.579.2.1286 1998 Unknown [id number] 2.16.840.1.109807.3.579.2.1286 1961 Medicaid [id number] 1961 Medicare [id number] Plan of Treatment Date Care Activity Detail Author Start: 08-05-2029 DTaP,Tdap and Td Vaccines (8 - Td or Tdap) DTaP,Tdap and Td Vaccines (8 - Td or Tdap) [facility] Start: 01-25-2025 Adult BMI Screening Adult BMI Screening [facility] Start: 01-25-2025 Tobacco Screening Tobacco Screening [facility] Start: 06-27-2024 Influenza vaccination Influenza Vaccine [facility] Start: 06-27-2023 COVID-19 Vaccine ( season) COVID-19 Vaccine ( season) [facility] Start: 2017 Urine microalbumin profile DTAP,TDAP,TD (1 - Tdap) [facility] Start: 2016 Adult BMI Follow Up Plan Adult BMI Follow Up Plan [facility] Start: 2016 HEPATITIS C SCREENING HEPATITIS C SCREENING [facility] Start: 2016 HIV SCREENING HIV SCREENING [facility] Start: 2012 PEDS TO ADULT TRANSITION ANNUAL ASSESSMENT PEDS TO ADULT TRANSITION ANNUAL ASSESSMENT [facility] Start: 2010 Adult depression screening assessment DEPRESSION SCREENING [facility] Start: 2010 PEDS TO ADULT TRANSITION INITIAL DISCUSSION PEDS TO ADULT TRANSITION INITIAL DISCUSSION [facility] Start: 2009 HPV VACCINE (1 - Male 2-dose series) HPV VACCINE (1 - Male 2-dose series) [facility] Start: 2008 MENINGOCOCCAL B: Consider based on risk (1 of 2 - Risk Bexsero 2-dose series) MENINGOCOCCAL B: Consider based on risk (1 of 2 - Risk Bexsero 2-dose series) [facility] Problems Active Problems Problem Classification Problem Date Documented Da te Episodic/Chronic Anal and rectal conditions (6 sources) Rectal prolapse; Translations: [Rectal pain] Onset: 01-08-2024 01-26-2024 Episodic Gastrointestinal hemorrhage (1 source) Blood-tinged feces; Translations: [Melena] Episodic Other aftercare (4 sources) Other alf (current) drug therapy; Translations: [[employer] CURRENT DRUG THERAPY] Onset: 02-19-2023 Episodic Schizophrenia [...] Anion gap [Moles/Vol] 8 mmol/L Normal 5-15 [facility] Comment on above: Performed By: #### C ANDRES BRYANT, #### [facility] ([id number]) [address], [address] [place] [address] Calcium [Mass/Vol] 8.5 mg/dL Normal 8.5-10.5 [facility] Comment on above: Performed By: #### C ANDRES BRYANT, #### [facility] ([id number]) [address], [address] [place] [address] Chloride [Moles/Vol] 106 mmol/L Normal 98-109 [facility] Comment on above: Performed By: #### C MANNY [facility], #### [facility] ([id number]) [address], [address] [place] [address] CO2 [Moles/Vol] 28 mmol/L Normal 22-32 [facility] Comment on above: Performed By: #### C MANNY [facility], #### [facility] ([id number]) [address], [address] [place] [address] Creatinine [Mass/Vol] 0.93 mg/dL Normal 0.60-1.30 [facility] Comment on above: Result Comment: METH OD TRACEABLE TO IDMS STANDARD Performed By: #### C MANNY [facility], #### [facility] ([id number]) [address], [address] [place] [address] eGFR (CKD-EPI) NON-RACE DEPENDENT >90 Normal >59 [facility] Comment on above: Result Comment: Reported eGFR is based on the CKD-EPI 1 equation that does not use a race coefficient. Performed By: #### C ANDRES BRYANT, #### [facility] ([id number]) [address], [address] [place] [address] Glucose [Mass/Vol] 87 mg/dL Normal 65-99 [facility] Comment on above: Performed By: #### C ANDRES BRYANT, #### [facility] ([id number]) [address], [address] [place] [address] Potassium [Moles/Vol] 3.9 mmol/L Normal 3.5-5.0 [facility] Comment on above: Performed By: #### C ANDRES BRYANT, #### [facility] ([id number]) [address], [address] [place] [address] Sodium [Moles/Vol] 142 mmol/L Normal 134-146 [facility] Comment on above: Performed By: #### C ANDRES BRYANT, #### [facility] ([id number]) [address], [address] [place] [address] Urea nitrogen [Mass/Vol] 13 mg/dL Normal 5-23 [facility] Comment on above: Performed By: #### ANDRES Briggs BCA, #### [facility] ([id number]) [address], [address] [place] [address] CBC AND AUTO DIFFon 1620 24 ABSOLUTE BASOPHIL 0.0 X10E9/L Normal 0.0-0.2 [facility] Comment on above: Performed By: #### Brigitte BRYANT [facility], #### [facility] ([id number]) [address], [address] [place] [address] ABSOLUTE NEUTROPHIL 7.9 X10E9/L High 1.5-6.6 [facility] Comment on above: Performed By: #### ANDRES Briggs BCA, #### [facility] ([id number]) [address], [address] [place] [address] Basophils/100 WBC (Bld) 0.2 % Normal [facility] Comment on above: Performed By: #### ANDRES Briggs BCA, [id number] #### [facility] ([id number]) [address] [place] [address] Eosinophils (Bld) [#/Vol] 0.0 10*3/uL Normal 0.0-0.4 [facility] Comment on above: Performed By: #### ANDRES Briggs BCA, #### [facility] ([id number]) [address] [place] [address] Eosinophils/100 WBC (Bld) 0.2 % Normal [facility] Comment on above: Performed By: #### ANDRES Briggs BCA, #### [facility] ([id number]) [address], [address] [place] [address] Erythrocyte distribution width (RBC) [Ratio] 20.7 % High 11.5-15.0 [facility] Comment on above: Performed By: #### ANDRES Briggs BCA, #### [facility] ([id number]) [address], [address] [place] [address] FRAGMENT 1+ Abnormal NONE [facility] Comment on above: Performed By: #### ANDRES Briggs BCA, #### [facility] ([id number]) [address] [place] [address] Hematocrit (Bld) [Volume fraction] 30.0 % Low 39-49 [facility] Comment on above: Performed By: #### ANDRES Briggs BCA, #### [facility] ([id number]) [address], [address] [place] [address] Hemoglobin (Bld) [Mass/Vol] 8.7 g/dL Low 13.0-17.0 [facility] Comment on above: Performed By: #### ANDRES Briggs BCA, #### [facility] ([id number]) [address], [address] [place] [address] HYPOCHROMIA 2+ Abnormal NONE [facility] Comment on above: Performed By: #### ANDRES Briggs BCA, #### [facility] ([id number]) [address] [place] [address] Lymphocytes (Bld) [#/Vol] 2.6 10*3/uL Normal 1.0-3.5 [facility] Comment on above: Performed By: #### ANDRES Briggs BCA, #### [facility] ([id number]) [address], [address] [place] [address] Lymphocytes/100 WBC (Bld) 22.1 % Normal [facility] Comment on above: Performed By: #### ANDRES Briggs BCA, #### [facility] ([id number]) [address] [place] [address] MCH (RBC) [Entitic mass] 16.7 pg Low 27-34 [facility] Comment on above: Performed By: #### ANDRES Briggs BCA, #### [facility] ([id number]) [address], [address] [place] [address] MCHC (RBC) [Mass/Vol] 29.1 g/dL Low 32-36 [facility] Comment on above: Performed By: #### C ANDRES BRYANT, #### [facility] ([id number]) [address] [place] [address] MCV (RBC) [Entitic vol] 58 fL Low 80-100 [facility] Comment on above: Performed By: #### ANDRES Briggs BCA, #### [facility] ([id number]) [address] [place] [address] Monocytes (Bld) [#/Vol] 1.3 10*3/uL High 0-0.9 [facility] Comment on above: Performed By: #### ANDRES Briggs BCA, #### [facility] ([id number]) [address], [address] [place] [address] Monocytes/100 WBC (Bld) 11.2 % Normal [facility] Comment on above: Performed By: #### ANDRES Briggs BCA, #### [facility] ([id number]) [address], [address] [place] [address] Neutrophils/100 WBC (Bld) 66.3 % Normal [facility] Comment on above: Performed By: #### ANDRES Briggs BCA, #### [facility] ([id number]) [address], [address] [place] [address] OVALOCYTE 2+ Abnormal NONE [facility] Comment on above: Performed By: #### ANDRES Briggs BCA, #### [facility] ([id number]) [address], [address] [place] [address] Platelet mean volume (Bld) [Entitic vol] 8.7 fL Normal 7-12 [facility] Comment on above: Performed By: #### ANDRES Briggs BCA, #### [facility] ([id number]) [address], [address] [place] [address] Platelets (Bld) [#/Vol] 326 10*3/uL Normal 150-450 [facility] Comment on above: Performed By: #### ANDRES Briggs BCA, #### [facility] ([id number]) [address], [address] [place] [address] RBC COUNT 5.21 X10E12/L Normal 4.10-5.70 [facility] Comment on above: Performed By: #### ANDRES Briggs BCA, #### [facility] ([id number]) [address], [address] [place] [address] WBC (Bld) [#/Vol] 11.9 10*3/uL High 4.0-11.0 [facility] Comment on above: Performed By: #### ANDRES Briggs BCA, #### [facility] ([id number]) [address], [address] [place] [address] MAGNESIUMon 01-10-2024 Magnesium [Mass/Vol] 2.0 mg/dL Normal 1.8-2.6 [facility] Comment on above: Performed By: #### C ANDRES BRYANT, #### [facility] ([id number]) [address], [address] [place] [address] BASIC METABOLIC PANLon 01-08 Anion gap [Moles/Vol] 9 mmol/L Normal 5-15 [facility] Comment on above: Performed By: #### C ANDRES BRYANT, #### [facility] ([id number]) [address], [address] [place] [address] Calcium [Mass/Vol] 8.8 mg/dL Normal 8.5-10.5 [facility] Comment on above: Performed By: #### C ANDRES BRYANT, #### [facility] ([id number]) [address], [address] [place] [address] Chloride [Moles/Vol] 107 mmol/L Normal 98-109 [facility] Comment on above: Performed By: #### C ANDRSE BRYANT, #### [facility] ([id number]) [address], [address] [place] [address] CO2 [Moles/Vol] 25 mmol/L Normal 22-32 [facility] Comment on above: Performed By: #### C MANNY BMP, #### [facility] ([id number]) [address], [address] [place] [address] Creatinine [Mass/Vol] 0.96 mg/dL Normal 0.60-1.30 [facility] Comment on above: Result Comment: METH OD TRACEABLE TO IDMS STANDARD Performed By: #### C ANDRES BRYANT, #### [facility] ([id number]) [address], [address] [place] [address] eGFR (CKD-EPI) NON-RACE DEPENDENT >90 Normal >59 [facility] Comment on above: Result Comment: Reported eGFR is based on the CKD-EPI 2020 equation that does not use a race coefficient. Performed By: #### C ANDRES BRYANT, #### [facility] ([id number]) [address] [place] [address] Glucose [Mass/Vol] 117 mg/dL High 65-99 [facility] Comment on above: Performed By: #### C ANDRES BRYANT, #### [facility] ([id number]) [address] [address] Potassium [Moles/Vol] 4.5 mmol/L Normal 3.5-5.0 [facility] Comment on above: Performed By: #### ANDRES Briggs BCA, #### [facility] ([id number]) [address] [address] Sodium [Moles/Vol] 141 mmol/L Normal 134-146 [facility] Comment on above: Performed By: #### Brigitte BRYANT [facility], #### [facility] ([id number]) [address] [address] Urea nitrogen [Mass/Vol] 19 mg/dL Normal 5-23 [facility] Comment on above: Performed By: #### Brigitte BRYANT [facility], #### [facility] ([id number]) [address] [address] CBC AND AUTO DIFFon 01-09-20 24 ACANTHOCYTE 2+ Abnormal NONE [facility] Comment on above: Performed By: #### ANDRES Briggs BCA, #### [facility] ([id number]) [address] [address] Erythrocyte distribution width (RBC) [Ratio] 21.0 % High 11.5-15.0 [facility] Comment on above: Performed By: #### C ANDRES BRYANT, #### [facility] ([id number]) [address], [address] [place] [address] FRAGMENT 1+ Abnormal NONE [facility] Comment on above: Performed By: #### C ANDRES BRYANT, #### [facility] ([id number]) [address] [place] [address] Hematocrit (Bld) [Volume fraction] 32.9 % Low 39-49 [facility] Comment on above: Performed By: #### ANDRES Briggs BCA, #### [facility] ([id number]) [address] [place] [address] Hemoglobin (Bld) [Mass/Vol] 9.4 g/dL Low 13.0-17.0 [facility] Comment on above: Performed By: #### ANDRES Briggs BCA, #### [facility] ([id number]) [address] [place] [address] HYPOCHROMIA 2+ Abnormal NONE [facility] Comment on above: Performed By: #### ANDRES Briggs BCA, #### [facility] ([id number]) [address] [place] [address] Lymphocytes (Bld) [#/Vol] 0.6 10*3/uL Low 1.0-3.5 [facility] Comment on above: Performed By: #### ANDRES Briggs BCA, #### [facility] ([id number]) [address], [address] [place] [address] Lymphocytes/100 WBC (Bld) 4.0 % Normal [facility] Comment on above: Performed By: #### ANDRES Briggs BCA, #### [facility] ([id number]) [address], [address] [place] [address] MCH (RBC) [Entitic mass] 16.4 pg Low 27-34 [facility] Comment on above: Performed By: #### C ANDRES BRYANT, #### [facility] ([id number]) [address] [place] [address] MCHC (RBC) [Mass/Vol] 28.6 g/dL Low 32-36 [facility] Comment on above: Performed By: #### ANDRES Briggs BCA, #### [facility] ([id number]) [address], [address] [place] [address] MCV (RBC) [Entitic vol] 57 fL Low 80-100 [facility] Comment on above: Performed By: #### ANDRES Briggs BCA, #### [facility] ([id number]) [address] [place] [address] Monocytes (Bld) [#/Vol] 0.5 10*3/uL Normal 0-0.9 [facility] Comment on above: Performed By: #### ANDRES Briggs BCA, #### [facility] ([id number]) [address], [address] [place] [address] Monocytes/100 WBC (Bld) 3.0 % Normal [facility] Comment on above: Performed By: #### ANDRES Briggs BCA, #### [facility] ([id number]) [address] [place] [address] Neutrophils (Bld) [#/Vol] 14.5 10*3/uL High 1.5-6.6 [facility] Comment on above: Performed By: #### ANDRES Briggs BCA, #### [facility] ([id number]) [address], [address] [place] [address] OVALOCYTE 2+ Abnormal NONE [facility] Comment on above: Performed By: #### ANDRES Briggs BCA, #### [facility] ([id number]) [address] [place] [address] Platelet mean volume (Bld) [Entitic vol] 8.7 fL Normal 7-12 [facility] Comment on above: Performed By: #### ANDRES Briggs BCA, #### [facility] ([id number]) [address] [place] [address] Platelets (Bld) [#/Vol] 347 10*3/uL Normal 150-450 [facility] Comment on above: Performed By: #### ANDRES Briggs BCA, #### [facility] ([id number]) [address] [place] [address] POLYCHROMASIA 1+ Abnormal NONE [facility] Comment on above: Performed By: #### ANDRES Briggs BCA, #### [facility] ([id number]) [address] [place] [address] RBC COUNT 5.76 X10E12/L High 4.10-5.70 [facility] Comment on above: Performed By: #### ANDRES Briggs BCA, #### [facility] ([id number]) [address] [place] [address] SEG NEUTROPHIL 93.0 % Normal [facility] Comment on above: Performed By: #### ANDRES Briggs BCA, #### [facility] ([id number]) [address] [place] [address] TEARDROP 1+ Abnormal NONE [facility] Comment on above: Performed By: #### ANDRES Briggs BCA, #### [facility] ([id number]) [address] [place] [address] WBC (Bld) [#/Vol] 15.6 10*3/uL High 4.0-11.0 [facility] Comment on above: Performed By: #### C BCA, BMP, 30684-1 #### [facility] ([id number]) [address] [place] [address] MAGNESIUMon 01-09-2024 Magnesium [Mass/Vol] 2.0 mg/dL Normal 1.8-2.6 [facility] Comment on above: Performed By: #### C BCA, BMP, 70176-2 #### [facility] ([id number]) [address] [place] [address] Surgical Pathologyon 024 Surgical Pathology Normal [facility] Comment on above: Result Comment: [facility] [address] [place] [address] Surgical Pathology Consultation Patient Name:SASCHA COLBERTMDOB:2000 (Age: 23)Gender:MTaken:4Reported:01/13/2024hysician(s):Pushpa Silva MD ([phone])Copy To: Rec. #:[id number]: #[id number] Final Pathologic Diagnosis Rectosigmoidectomy: Mucosal ischemic change with superficial mucosal necrosis, acute inflammation, hyalinization of lamina propria and atrophic crypts. Strands of smooth muscle extending into lamina propria with surface erosion compatible with prolapse changes. No malignancy identified. Report Electronically Signed Out ssi/01/13/2024Calvin Cortez M.D. Interpretation performed at [facility], [address] [place], [place] [address], License number: [id number]. Clinical History Rectal prolapse, ischemic rectum. Gross [...] sections of proximal margin G edematous wall (7,ss,Q40-28568, m1) . /01/09/2024 Specimen(s) Received Rectum and sigmoid Fee Codes(s): 1; 18876 CBC AND AUTO DIFFon 01-08-20 24 ABSOLUTE BASOPHIL 0.1 X10E9/L Normal 0.0-0.2 [facility] Comment on above: Performed By: #### P INR, 33037-8, CMP, CBCA #### [facility] ([id number]) [address] [place] [address] ABSOLUTE NEUTROPHIL 14.8 X10E9/L High 1.5-6.6 [facility] Comment on above: Performed By: #### P INR, 88638-6, CMP, CBCA #### [facility] ([id number]) [address] [place] [address] Basophils/100 WBC (Bld) 0.3 % Normal [facility] Comment on above: Performed By: #### P INR, 79943-7, CMP, CBCA #### [facility] ([id number]) [address] [place] [address] Eosinophils (Bld) [#/Vol] 0.0 10*3/uL Normal 0.0-0.4 [facility] Comment on above: Performed By: #### P INR, 54611-1, CMP, CBCA #### [facility] ([id number]) [address] [place] [address] Eosinophils/100 WBC (Bld) 0.0 % Normal [facility] Comment on above: Performed By: #### P INR, 63328-0, CMP, CBCA #### [facility] ([id number]) [address] [place] [address] Erythrocyte distribution width (RBC) [Ratio] 20.9 % High 11.5-15.0 [facility] Comment on above: Performed By: #### P INR, 09006-4, CMP, CBCA #### [facility] ([id number]) [address] [place] [address] Hematocrit (Bld) [Volume fraction] 33.4 % Low 39-49 [facility] Comment on above: Performed By: #### P INR, 05126-3, CMP, CBCA #### [facility] ([id number]) [address] [place] [address] Hemoglobin (Bld) [Mass/Vol] 9.5 g/dL Low 13.0-17.0 [facility] Comment on above: Performed By: #### P INR, 06726-3, CMP, CBCA #### [facility] ([id number]) [address] [place] [address] Lymphocytes (Bld) [#/Vol] 0.4 10*3/uL Low 1.0-3.5 [facility] Comment on above: Performed By: #### P INR, 35350-0, CMP, CBCA #### [facility] ([id number]) [address] [place] [address] Lymphocytes/100 WBC (Bld) 2.6 % Normal [facility] Comment on above: Performed By: #### P INR, 58188-4, CMP, CBCA #### [facility] ([id number]) [address] [place] [address] MCH (RBC) [Entitic mass] 16.4 pg Low 27-34 [facility] Comment on above: Performed By: #### P INR, 00166-2, CMP, CBCA #### [facility] ([id number]) [address] [place] [address] MCHC (RBC) [Mass/Vol] 28.6 g/dL Low 32-36 [facility] Comment on above: Performed By: #### P INR, 41727-4, CMP, CBCA #### [facility] ([id number]) [address] [place] [address] MCV (RBC) [Entitic vol] 58 fL Low 80-100 [facility] Comment on above: Performed By: #### P INR, 03416-3, CMP, CBCA #### [facility] ([id number]) [address] [place] [address] Monocytes (Bld) [#/Vol] 1.4 10*3/uL High 0-0.9 [facility] Comment on above: Performed By: #### P INR, 73462-3, CMP, CBCA #### [facility] ([id number]) [address] [place] [address] Monocytes/100 WBC (Bld) 8.5 % Normal [facility] Comment on above: Performed By: #### P INR, 81151-4, CMP, CBCA #### [facility] ([id number]) [address] [place] [address]385 Neutrophils/100 WBC (Bld) 88.6 % Normal [facility] Comment on above: Performed By: #### P INR, 62042-8, CMP, CBCA #### [facility] ([id number]) [address] [place] [address] 39195 Platelet mean volume (Bld) [Entitic vol] 8.7 fL Normal 7-12 [facility] Comment on above: Performed By: #### P INR, 67204-3, CMP, CBCA #### [facility] ([id number]) [address] [place] [address] 25663 Platelets (Bld) [#/Vol] 366 10*3/uL Normal 150-450 [facility] Comment on above: Performed By: #### P INR, 73392-0, CMP, CBCA #### [facility] ([id number]) [address] [place] [address] 55566 RBC COUNT 5.81 X10E12/L High 4.10-5.70 [facility] Comment on above: Performed By: #### P INR, 10947-7, CMP, CBCA #### [facility] ([id number]) [address] [place] [address] 61512 WBC (Bld) [#/Vol] 16.7 10*3/uL High 4.0-11.0 [place] Comment on above: Performed By: #### P INR, 30682-8, CMP, CBCA #### [facility] ([id number]) [address] [place] [address]237 COMPREHENSIVE METABOLIC PANE Angel 01-08-2024 Albumin [Mass/Vol] 4.3 g/dL Normal 3.2-5.3 [facility] Comment on above: Performed By: #### P INR, 81685-3, CMP, CBCA #### [facility] ([id number]) [address] [place] [address] 93402 ALP [Catalytic activity/Vol] 67 U/L Normal 39-130 [facility] Comment on above: Performed By: #### P INR, 94355-8, CMP, CBCA #### [facility] ([id number]) [address] [place] [address] 72305 ALT [Catalytic activity/Vol] 19 U/L Normal 0-40 [facility] Comment on above: Performed By: #### P INR, 53820-4, CMP, CBCA #### [facility] ([id number]) [address] [place] [address] 60483 Anion gap [Moles/Vol] 6 mmol/L Normal 5-15 [facility] Comment on above: Performed By: #### P INR, 29077-3, CMP, CBCA #### [facility] ([id number]) [address] [place] [address] 44759 AST [Catalytic activity/Vol] 26 U/L Normal 0-41 [facility] Comment on above: Performed By: #### P INR, 30037-6, CMP, CBCA #### [facility] ([id number]) [address] [place] [address] 07478 Bilirubin [Mass/Vol] 0.5 mg/dL Normal 0.3-1.2 [facility] Comment on above: Performed By: #### P INR, 31306-2, CMP, CBCA #### [facility] ([id number]) [address] [place] [address] 67801 Calcium [Mass/Vol] 8.8 mg/dL Normal 8.5-10.5 [facility] Comment on above: Performed By: #### P INR, 71353-1, CMP, CBCA #### [facility] ([id number]) [address] [place] [address] 42823 Chloride [Moles/Vol] 102 mmol/L Normal 98-109 [facility] Comment on above: Performed By: #### P INR, 56126-1, CMP, CBCA #### [facility] ([id number]) [address] [place] [address] 36574 CO2 [Moles/Vol] 23 mmol/L Normal 22-32 [facility] Comment on above: Performed By: #### P INR, 36160-4, CMP, CBCA #### [facility] ([id number]) [address] [place] [address] 42869 Creatinine [Mass/Vol] 1.03 mg/dL Normal 0.70-1.20 [facility] Comment on above: Result Comment: METH OD TRACEABLE TO IDMS STANDARD Performed By: #### P INR, 57068-7, CMP, CBCA #### [facility] ([id number]) [address] [place] [address] 72392 eGFR (CKD-EPI) NON-RACE DEPENDENT >90 Normal >59 [facility] Comment on above: Result Comment: Reported eGFR is based on the CKD-EPI 1 equation that does not use a race coefficient. Performed By: #### P INR, 42628-9, CMP, CBCA #### [facility] ([id number]) [address] [place] [address] 47605 Glucose [Mass/Vol] 114 mg/dL High 65-99 [facility] Comment on above: Performed By: #### P INR, 31033-6, CMP, CBCA #### [facility] ([id number]) [address] [place] [address] 10390 Potassium [Moles/Vol] 4.0 mmol/L Normal 3.5-5.0 [facility] Comment on above: Performed By: #### P INR, 60545-6, CMP, CBCA #### [facility] ([id number]) [address] [place] [address] 60328 Protein [Mass/Vol] 6.9 g/dL Normal 6.0-8.0 [facility] Comment on above: Performed By: #### P INR, 82433-0, CMP, CBCA #### [facility] ([id number]) [address] [place] [address] 15652 Sodium [Moles/Vol] 131 mmol/L Low 134-146 [facility] Comment on above: Performed By: #### P INR, 57628-2, CMP, CBCA #### [facility] ([id number]) [address] [place] [address] 93861 Urea nitrogen [Mass/Vol] 17 mg/dL Normal 5-23 [facility] Comment on above: Performed By: #### P INR, 03005-2, CMP, CBCA #### [facility] ([id number]) [address] [place] [address] 54204 PROTIME AND INRon 01-08-2024 INR Coag (PPP) [Relative time] 1.0 {INR} Normal 0.8-1.1 [facility] Comment on above: Performed By: #### P INR, 33669-5, CMP, CBCA #### [facility] ([id number]) [address] [place] [address] 24892 PT Coag (PPP) [Time] 12.0 s Normal 9.8-13.2 [facility] Comment on above: Result Comment: NEW REFERENCE RANGE Performed By: #### P INR, 44408-7, CMP, CBCA #### [facility] ([id number]) [address] [place] [address] [place] [address] aPTT Coag (PPP) [Time]on aPTT Coag (Bld) [Time] 37 s Normal 26-37 [facility] Comment on above: Result Comment: NEW REFERENCE RANGE Performed By: #### P INR, 00324-0, CMP, CBCA #### [facility] ([id number]) [address] [place] [address], [place] [address] CBC AUTO DIFFon 03-26-2023 BASO # 0.0 103/ul Normal 0.0-0.1 [facility] Comment on above: Performed By: #### C BC #### [facility] [address] [place] [address] Dr. Sonido Bejarano Basophils/100 WBC (Bld) 0.7 % Normal 0.2-2.0 [facility] Comment on above: Performed By: #### C BC #### [facility] [address] [place] [address] Dr. Sonido Bejarano EO # 0.1 103/ul Normal 0.0-0.7 [facility] Comment on above: Performed By: #### C BC #### [facility] [address] [place] [address] Dr. Sonido Bejarano Eosinophils/100 WBC (Bld) 1.0 % Normal 0.9-7.0 [facility] Comment on above: Performed By: #### C BC #### [facility] [address] [place] [address] Dr. Sonido Bejarano Erythrocyte distribution width (RBC) [Ratio] 22.3 % Critically high 11.0-15.0 [facility] Comment on above: Performed By: #### C BC #### [facility] [address] [place] [address] Dr. Sonido Bejarano Hematocrit (Bld) [Volume fraction] 32.0 % Critically low 42.0-54.0 [facility] Comment on above: Performed By: #### C BC #### [facility] [address] [place] [address] Dr. Sonido Bejarano Hemoglobin (Bld) [Mass/Vol] 8.3 g/dL Critically low 14.0-18.0 [facility] Comment on above: Performed By: #### C BC #### [facility] [address] [place] [address] Dr. Sonido Bejarano IG # 0.01 10e3/ul Normal 0.00-0.03 [facility] Comment on above: Performed By: #### C BC #### [facility] [address] [place] [address] Dr. Sonido Bejarano IG % 0.2 % Normal 0.0-0.5 [facility] Comment on above: Performed By: #### C BC #### [facility] [address] [place] [address] Dr. Sonido Bejarano LYMPH # 1.2 103/ul Normal 1.2-3.8 [facility] Comment on above: Performed By: #### C BC #### [facility] [address] [place] [address] Dr. Sonido Bejarano Lymphocytes/100 WBC (Bld) 20.1 % Critically low 20.5-60.0 [facility] Comment on above: Performed By: #### C BC #### [facility] [address] [place] [address] Dr. Sonido Bejarano MANUAL DIFF REQ NO Normal [facility] Comment on above: Performed By: #### C BC #### [facility] [address] [place] [address] Dr. Sonido Bejarano MCH (RBC) [Entitic mass] 15.7 pg Critically low 25.9-34.0 [facility] Comment on above: Performed By: #### C BC #### [facility] [address] [place] [address] Dr. Sonido Bejarano MCHC (RBC) [Mass/Vol] 25.9 g/dL Critically low 29.9-35.2 [facility] Comment on above: Performed By: #### C BC #### [facility] [address] [place] [address] Dr. Sonido Bejarano MCV (RBC) [Entitic vol] 60.6 fL Critically low 80.0-94.0 [facility] Comment on above: Performed By: #### C BC #### [facility] [address] [place] [address] Dr. Sonido Bejarano MONO # 0.7 103/ul Normal 0.3-0.8 [facility] Comment on above: Performed By: #### C BC #### [facility] [address] [place] [address] Dr. Sonido Bejarano Monocytes/100 WBC (Bld) 12.2 % Critically high 1.7-12.0 [facility] Comment on above: Performed By: #### C BC #### [facility] [address] [place] [address] Dr. Sonido Bejarano NEUT # 3.8 103/ul Normal 1.4-6.5 [facility] Comment on above: Performed By: #### C BC #### [facility] [address] [place] [address] Dr. Sonido Bejarano Neutrophils/100 WBC (Bld) 65.8 % Normal 43.0-75.0 [facility] Comment on above: Performed By: #### C BC #### [facility] [address] [place] [address] Dr. Sonido Bejarano Platelet mean volume (Bld) [Entitic vol] 9.2 fL Critically low 9.5-13.5 [facility] Comment on above: Performed By: #### C BC #### [facility] [address] [place] [address] Dr. Sonido Bejarano PLT 369 103/ul Normal 150-450 [facility] Comment on above: Performed By: #### C BC #### [facility] [address] [place] [address] Dr. Sonido Bejarano RBC 5.28 106/ul Normal 4.70-6.10 [facility] Comment on above: Performed By: #### C BC #### [facility] [address] [place] [address] Dr. Sonido Bejarano WBC 5.8 103/ul Normal 4.0-11.0 [facility] Comment on above: Performed By: #### C BC #### [facility] [address] [place] [address] Dr. Sonido Bejarano CBC AUTO DIFFon 02-19-2023 BASO # 0.0 103/ul Normal 0.0-0.1 [facility] Comment on above: Performed By: #### C BC #### [facility] [address] [place] [address] Dr. Sonido Bejarano Basophils/100 WBC (Bld) 0.7 % Normal 0.2-2.0 [facility] Comment on above: Performed By: #### C BC #### [facility] [address] [place] [address] Dr. Sonido Bejarano EO # 0.1 103/ul Normal 0.0-0.7 [facility] Comment on above: Performed By: #### C BC #### [facility] [address] [place] [address] Dr. Sonido Bejarano Eosinophils/100 WBC (Bld) 1.1 % Normal 0.9-7.0 [facility] Comment on above: Performed By: #### C BC #### [facility] [address] [place] [address] Dr. Sonido Bejarano Erythrocyte distribution width (RBC) [Ratio] 22.7 % Critically high 11.0-15.0 [facility] Comment on above: Performed By: #### C BC #### [facility] [address] [place] [address] Dr. Sonido Bejarano Hematocrit (Bld) [Volume fraction] 32.9 % Critically low 42.0-54.0 [facility] Comment on above: Performed By: #### C BC #### [facility] [address] [place] [address] Dr. Sonido Bejarano Hemoglobin (Bld) [Mass/Vol] 8.2 g/dL Critically low 14.0-18.0 [facility] Comment on above: Performed By: #### C BC #### [facility] [address] [place] [address] Dr. Sonido Bejarano IG # 0.02 10e3/ul Normal 0.00-0.03 [facility] Comment on above: Performed By: #### C BC #### [facility] [address] [place] [address] Dr. Sonido Bejarano IG % 0.3 % Normal 0.0-0.5 [facility] Comment on above: Performed By: #### C BC #### [facility] [address] [place] [address] Dr. Sonido Bejarano LYMPH # 1.4 103/ul Normal 1.2-3.8 [facility] Comment on above: Performed By: #### C BC #### [facility] [address] [place] [address] Dr. Sonido Bejarano Lymphocytes/100 WBC (Bld) 22.8 % Normal 20.5-60.0 [facility] Comment on above: Performed By: #### C BC #### [facility] [address] [place] [address] Dr. Sonido Bejarano MANUAL DIFF REQ NO Normal [facility] Comment on above: Performed By: #### C BC #### [facility] [address] [place] [address] Dr. Sonido Bejarano MCH (RBC) [Entitic mass] 15.3 pg Critically low 25.9-34.0 [facility] Comment on above: Performed By: #### C BC #### [facility] [address] [place] [address] Dr. Sonido Bejarano MCHC (RBC) [Mass/Vol] 24.9 g/dL Critically low 29.9-35.2 [facility] Comment on above: Performed By: #### C BC #### [facility] [address] [place] [address] Dr. Sonido Bejarano MCV (RBC) [Entitic vol] 61.3 fL Critically low 80.0-94.0 [facility] Comment on above: Performed By: #### C BC #### [facility] [address] [place] [address] Dr. Sonido Bejarano MONO # 0.7 103/ul Normal 0.3-0.8 [facility] Comment on above: Performed By: #### C BC #### [facility] [address] [place] [address] Dr. Sonido Bejarano Monocytes/100 WBC (Bld) 11.6 % Normal 1.7-12.0 [facility] Comment on above: Performed By: #### C BC #### [facility] [address] [place] [address] Dr. Sonido Bejarano NEUT # 3.9 103/ul Normal 1.4-6.5 [facility] Comment on above: Performed By: #### C BC #### [facility] [address] [place] [address] Dr. Sonido Bejarano Neutrophils/100 WBC (Bld) 63.5 % Normal 43.0-75.0 [facility] Comment on above: Performed By: #### C BC #### [facility] [address] [place] [address] Dr. Sonido Bejarano Platelet mean volume (Bld) [Entitic vol] 9.3 fL Critically low 9.5-13.5 [facility] Comment on above: Performed By: #### C BC #### [facility] [address] [place] [address] Dr. Sonido Bejarano PLT 394 103/ul Normal 150-450 [facility] Comment on above: Performed By: #### C BC #### [facility] [address] [place] [address] Dr. Sonido Bejarano RBC 5.37 106/ul Normal 4.70-6.10 [facility] Comment on above: Performed By: #### C BC #### [facility] [address] [place] [address] Dr. Sonido Bejarano WBC 6.1 103/ul Normal 4.0-11.0 [facility] Comment on above: Performed By: #### C BC #### [facility] [address] [place] [address] Dr. Sonido Bejarano CBC AUTO DIFFon 01-15-2023 BASO # 0.0 103/ul Normal 0.0-0.1 [facility] Comment on above: Performed By: #### C BC #### [facility] [address] [place] [address] Dr. Sonido Bejarano Basophils/100 WBC (Bld) 0.3 % Normal 0.2-2.0 [facility] Comment on above: Performed By: #### C BC #### [facility] [address] [place] [address] Dr. Sonido Bejarano EO # 0.0 103/ul Normal 0.0-0.7 [facility] Comment on above: Performed By: #### C BC #### [facility] [address] [place] [address] Dr. Sonido Bejarano Eosinophils/100 WBC (Bld) 0.4 % Critically low 0.9-7.0 [facility] Comment on above: Performed By: #### C BC #### [facility] [address] [place] [address] Dr. Sonido Bejarano Erythrocyte distribution width (RBC) [Ratio] 22.4 % Critically high 11.0-15.0 [facility] Comment on above: Performed By: #### C BC #### [facility] [address] [place] [address] Dr. Sonido Bejarano Hematocrit (Bld) [Volume fraction] 31.5 % Critically low 42.0-54.0 [facility] Comment on above: Performed By: #### C BC #### [facility] [address] [place] [address] Dr. Sonido Bejarano Hemoglobin (Bld) [Mass/Vol] 8.1 g/dL Critically low 14.0-18.0 [facility] Comment on above: Performed By: #### C BC #### [facility] [address] [place] [address] Dr. Sonido Bejarano IG # 0.02 10e3/ul Normal 0.00-0.03 [facility] Comment on above: Performed By: #### C BC #### [facility] [address] [place] [address] Dr. Sonido Bejarano IG % 0.3 % Normal 0.0-0.5 [facility] Comment on above: Performed By: #### C BC #### [facility] [address] [place] [address] Dr. Sonido Bejarano LYMPH # 1.3 103/ul Normal 1.2-3.8 [facility] Comment on above: Performed By: #### C BC #### [facility] [address] [place] [address] Dr. Sonido Bejarano Lymphocytes/100 WBC (Bld) 19.4 % Critically low 20.5-60.0 [facility] Comment on above: Performed By: #### C BC #### [facility] [address] [place] [address] Dr. Sonido Bejarano MANUAL DIFF REQ NO Normal [facility] Comment on above: Performed By: #### C BC #### [facility] [address] [place] [address] Dr. Sonido Bejarano MCH (RBC) [Entitic mass] 15.5 pg Critically low 25.9-34.0 [facility] Comment on above: Performed By: #### C BC #### [facility] [address] [place] [address] Dr. Sonido Bejarano MCHC (RBC) [Mass/Vol] 25.7 g/dL Critically low 29.9-35.2 [facility] Comment on above: Performed By: #### C BC #### [facility] [address] [place] [address] Dr. Sonido Bejarano MCV (RBC) [Entitic vol] 60.2 fL Critically low 80.0-94.0 [facility] Comment on above: Performed By: #### C BC #### [facility] [address] [place] [address] Dr. Sonido Bejarano MONO # 0.9 103/ul Critically high 0.3-0.8 [facility] Comment on above: Performed By: #### C BC #### [facility] [address] [place] [address] Dr. Sonido Bejarano Monocytes/100 WBC (Bld) 12.9 % Critically high 1.7-12.0 [facility] Comment on above: Performed By: #### C BC #### [facility] [address] [place] [address] Dr. Sonido Bejarano NEUT # 4.5 103/ul Normal 1.4-6.5 [facility] Comment on above: Performed By: #### C BC #### [facility] [address] [place] [address] Dr. Sonido Bejarano Neutrophils/100 WBC (Bld) 66.7 % Normal 43.0-75.0 [facility] Comment on above: Performed By: #### C BC #### [facility] [address] [place] [address] Dr. Sonido Bejarano Platelet mean volume (Bld) [Entitic vol] 9.2 fL Critically low 9.5-13.5 [facility] Comment on above: Performed By: #### C BC #### [facility] [address] [place] [address] Dr. Sonido Bejarano PLT 356 103/ul Normal 150-450 [facility] Comment on above: Performed By: #### C BC #### [facility] [address] [place] [address] Dr. Sonido Bejarano RBC 5.23 106/ul Normal 4.70-6.10 [facility] Comment on above: Result Comment: 2+ P OIKILOCYTOSIS 2+ ANISOCYTOSIS 2+ OVALOCYTE 1+ TEAR DROP CELL 2+ ACANTHOCYTE Performed By: #### C BC #### [facility] [address] [place] [address] Dr. Sonido Bejarano WBC 6.8 103/ul Normal 4.0-11.0 [facility] Comment on above: Performed By: #### C BC #### [facility] [address] [place] [address] Dr. Sonido Bejarano CBC AUTO DIFFon 12-20-2022 BASO # 0.0 103/ul Normal 0.0-0.1 [facility] Comment on above: Performed By: #### C BC #### [facility] [address] [place] [address] Dr. Sonido Bejraano Basophils/100 WBC (Bld) 0.5 % Normal 0.2-2.0 [facility] Comment on above: Performed By: #### C BC #### [facility] [address] [place] [address] Dr. Sonido Bejarano EO # 0.1 103/ul Normal 0.0-0.7 [facility] Comment on above: Performed By: #### C BC #### [facility] [address] [place] [address] Dr. Sonido Bejarano Eosinophils/100 WBC (Bld) 1.3 % Normal 0.9-7.0 [facility] Comment on above: Performed By: #### C BC #### [facility] [address] [place] [address] Dr. Sonido Bejarano Erythrocyte distribution width (RBC) [Ratio] 22.8 % Critically high 11.0-15.0 [facility] Comment on above: Performed By: #### C BC #### [facility] [address] [place] [address] Dr. Sonido Bejarano Hematocrit (Bld) [Volume fraction] 34.5 % Critically low 42.0-54.0 [facility] Comment on above: Performed By: #### C BC #### [facility] [address] [place] [address] Dr. oSnido Bejarano Hemoglobin (Bld) [Mass/Vol] 8.9 g/dL Critically low 14.0-18.0 [facility] Comment on above: Performed By: #### C BC #### [facility] [address] [place] [address] Dr. Sonido Bejarano IG # 0.01 10e3/ul Normal 0.00-0.03 [facility] Comment on above: Performed By: #### C BC #### [facility] [address] [place] [address] Dr. Sonido Bejarano IG % 0.2 % Normal 0.0-0.5 [facility] Comment on above: Performed By: #### C BC #### [facility] [address] [place] [address] Dr. Sonido Bejarano LYMPH # 1.0 103/ul Critically low 1.2-3.8 [facility] Comment on above: Performed By: #### C BC #### [facility] [address] [place] [address] Dr. Sonido Bejarano Lymphocytes/100 WBC (Bld) 18.3 % Critically low 20.5-60.0 [facility] Comment on above: Performed By: #### C BC #### [facility] [address] [place] [address] Dr. Sonido Bejarano MANUAL DIFF REQ NO Normal [facility] Comment on above: Performed By: #### C BC #### [facility] [address] [place] [address] Dr. Sonido Bejarano MCH (RBC) [Entitic mass] 15.6 pg Critically low 25.9-34.0 [facility] Comment on above: Performed By: #### C BC #### [facility] [address] [place] [address] Dr. Sonido Bejarano MCHC (RBC) [Mass/Vol] 25.8 g/dL Critically low 29.9-35.2 [facility] Comment on above: Performed By: #### C BC #### [facility] [address] [place] [address] Dr. Sonido Bejarano MCV (RBC) [Entitic vol] 60.6 fL Critically low 80.0-94.0 [facility] Comment on above: Performed By: #### C BC #### [facility] [address] [place] [address] Dr. Sonido Bejarano MONO # 0.7 103/ul Normal 0.3-0.8 [facility] Comment on above: Performed By: #### C BC #### [facility] [address] [place] [address] Dr. Sonido Bejarano Monocytes/100 WBC (Bld) 13.2 % Critically high 1.7-12.0 [facility] Comment on above: Performed By: #### C BC #### [facility] [address] [place] [address] Dr. Sonido Bejarano NEUT # 3.7 103/ul Normal 1.4-6.5 [facility] Comment on above: Performed By: #### C BC #### [facility] [address] [place] [address] Dr. Sonido Bejarano Neutrophils/100 WBC (Bld) 66.5 % Normal 43.0-75.0 [facility] Comment on above: Performed By: #### C BC #### [facility] [address] [place] [address] Dr. Sonido Bejarano Platelet mean volume (Bld) [Entitic vol] 9.6 fL Normal 9.5-13.5 [facility] Comment on above: Performed By: #### C BC #### [facility] [address] [place] [address] Dr. Sonido Bejarano PLT 441 103/ul Normal 150-450 [facility] Comment on above: Performed By: #### C BC #### [facility] [address] [place] [address] Dr. Sonido Bejarano RBC 5.69 106/ul Normal 4.70-6.10 [facility] Comment on above: Result Comment: Anis ocytosis 2+ Hypochromasia 2+ Poikilocytosis 2+ Ovalocytes 1+ Tear drop cells 1+ Acanthocytes 1+ Performed By: #### C BC #### [facility] [address] [place] [address] Dr. Sonido Bejarano WBC 5.5 103/ul Normal 4.0-11.0 [facility] Comment on above: Performed By: #### C BC #### [facility] [address] [place] [address] Dr. Sonido Bejarano CBC AUTO DIFFon 11-20-2022 BASO # 0.1 103/ul Normal 0.0-0.1 [facility] Comment on above: Performed By: #### C BC #### [facility] [address] [place] [address] Dr. Sonido Bejarano Basophils/100 WBC (Bld) 1.0 % Normal 0.2-2.0 [facility] Comment on above: Performed By: #### C BC #### [facility] [address] [place] [address] Dr. Sonido Bejarano EO # 0.1 103/ul Normal 0.0-0.7 [facility] Comment on above: Performed By: #### C BC #### [facility] [address] [place] [address] Dr. Sonido Bejarano Eosinophils/100 WBC (Bld) 2.1 % Normal 0.9-7.0 [facility] Comment on above: Performed By: #### C BC #### [facility] [address] [place] [address] Dr. Sonido Bejarano Erythrocyte distribution width (RBC) [Ratio] 23.0 % Critically high 11.0-15.0 [facility] Comment on above: Performed By: #### C BC #### [facility] [address] [place] [address] Dr. Sonido Bejarano Hematocrit (Bld) [Volume fraction] 32.6 % Critically low 42.0-54.0 [facility] Comment on above: Performed By: #### C BC #### [facility] [address] [place] [address] Dr. Sonido Bejarano Hemoglobin (Bld) [Mass/Vol] 8.0 g/dL Critically low 14.0-18.0 [facility] Comment on above: Performed By: #### C BC #### [facility] [address] [place] [address] Dr. Sonido Bejarano IG # 0.01 10e3/ul Normal 0.00-0.03 [facility] Comment on above: Performed By: #### C BC #### [facility] [address] [place] [address] Dr. Sonido Bejarano IG % 0.2 % Normal 0.0-0.5 [facility] Comment on above: Performed By: #### C BC #### [facility] [address] [place] [address] Dr. Sonido Bejarano LYMPH # 1.1 103/ul Critically low 1.2-3.8 [facility] Comment on above: Performed By: #### C BC #### [facility] [address] [place] [address] Dr. Sonido Bejarano Lymphocytes/100 WBC (Bld) 22.0 % Normal 20.5-60.0 [facility] Comment on above: Performed By: #### C BC #### [facility] [address] [place] [address] Dr. Sonido Bejarano MANUAL DIFF REQ NO Normal [facility] Comment on above: Performed By: #### C BC #### [facility] [address] [address] [address] Sonido Bejarano MCH (RBC) [Entitic mass] 15.6 pg Critically low 25.9-34.0 [facility] Comment on above: Performed By: #### C BC #### [facility] [address] [place] [address] Dr. Sonido Bejarano MCHC (RBC) [Mass/Vol] 24.5 g/dL Critically low 29.9-35.2 [facility] Comment on above: Performed By: #### C BC #### [facility] [address] [place] [address] Dr. Sonido Bejarano MCV (RBC) [Entitic vol] 63.4 fL Critically low 80.0-94.0 [facility] Comment on above: Performed By: #### C BC #### [facility] [address] [place] [address] Dr. Sonido Bejarano MONO # 0.6 103/ul Normal 0.3-0.8 [facility] Comment on above: Performed By: #### C BC #### [facility] [address] [place] [address] Dr. Sonido Bejarano Monocytes/100 WBC (Bld) 13.0 % Critically high 1.7-12.0 [facility] Comment on above: Performed By: #### C BC #### [facility] [address] [place] [address] Dr. Sonido Bejarano NEUT # 3.0 103/ul Normal 1.4-6.5 [facility] Comment on above: Performed By: #### C BC #### [facility] [address] [place] [address] Dr. Sonido Bejarano Neutrophils/100 WBC (Bld) 61.7 % Normal 43.0-75.0 [facility] Comment on above: Performed By: #### C BC #### [facility] [address] [place] [address] Dr. Sonido Bejarano Platelet mean volume (Bld) [Entitic vol] 8.6 fL Critically low 9.5-13.5 [facility] Comment on above: Performed By: #### C BC #### [facility] [address] [place] [address] Dr. Sonido Bejarano PLT 333 103/ul Normal 150-450 [facility] Comment on above: Performed By: #### C BC #### [facility] [address] [place] [address] Dr. Sonido Bejarano RBC 5.14 106/ul Normal 4.70-6.10 [facility] Comment on above: Performed By: #### C BC #### [facility] [address] [place] [address] Dr. Sonido Bejarano WBC 4.9 103/ul Normal 4.0-11.0 [facility] Comment on above: Performed By: #### C BC #### [facility] [address] [place] [address] Dr. Sonido Bejarano CBC AUTO DIFFon 10-11-2022 BASO # 0.0 103/ul Normal 0.0-0.1 [facility] Comment on above: Performed By: #### C BC #### [facility] [address] [place] [address] Dr. Sonido Bejarano Basophils/100 WBC (Bld) 0.8 % Normal 0.2-2.0 [facility] Comment on above: Performed By: #### C BC #### [facility] [address] [place] [address] Dr. Sonido Bejarano EO # 0.1 103/ul Normal 0.0-0.7 [facility] Comment on above: Performed By: #### C BC #### [facility] [address] [place] [address] Dr. Sonido Bejarano Eosinophils/100 WBC (Bld) 1.5 % Normal 0.9-7.0 [facility] Comment on above: Performed By: #### C BC #### [facility] [address] [place] [address] Dr. Sonido Bejarano Erythrocyte distribution width (RBC) [Ratio] 22.4 % Critically high 11.0-15.0 [facility] Comment on above: Performed By: #### C BC #### [facility] [address] [place] [address] Dr. Sonido Bejarano Hematocrit (Bld) [Volume fraction] 32.3 % Critically low 42.0-54.0 [facility] Comment on above: Performed By: #### C BC #### [facility] [address] [place] [address] Dr. Sonido Bejarano Hemoglobin (Bld) [Mass/Vol] 8.1 g/dL Critically low 14.0-18.0 [facility] Comment on above: Performed By: #### C BC #### [facility] [address] [place] [address] Dr. Sonido Bejarano IG # 0.01 10e3/ul Normal 0.00-0.03 [facility] Comment on above: Performed By: #### C BC #### [facility] [address] [place] [address] Dr. Sonido Bejarano IG % 0.2 % Normal 0.0-0.5 [facility] Comment on above: Performed By: #### C BC #### [facility] [address] [place] [address] Dr. Sonido Bejarano LYMPH # 1.2 103/ul Normal 1.2-3.8 [facility] Comment on above: Performed By: #### C BC #### [facility] [address] [place] [address] Dr. Sonido Bejarano Lymphocytes/100 WBC (Bld) 22.8 % Normal 20.5-60.0 [facility] Comment on above: Performed By: #### C BC #### [facility] [address] [place] [address] Dr. Sonido Bejarano MANUAL DIFF REQ NO Normal [facility] Comment on above: Performed By: #### C BC #### [facility] [address] [place] [address] Dr. Sonido Bejarano MCH (RBC) [Entitic mass] 15.1 pg Critically low 25.9-34.0 [facility] Comment on above: Performed By: #### C BC #### [facility] [address] [place] [address] Dr. Sonido Bejarano MCHC (RBC) [Mass/Vol] 25.1 g/dL Critically low 29.9-35.2 [facility] Comment on above: Performed By: #### C BC #### [facility] [address] [address] [address] Sonido Bejarano MCV (RBC) [Entitic vol] 60.0 fL Critically low 80.0-94.0 [facility] Comment on above: Performed By: #### C BC #### [facility] [address] [address] [address] Sonido Bejarano MONO # 0.7 103/ul Normal 0.3-0.8 [facility] Comment on above: Performed By: #### C BC #### [facility] [address] [place] [address] Dr. Sonido Bejarano Monocytes/100 WBC (Bld) 12.5 % Critically high 1.7-12.0 [facility] Comment on above: Performed By: #### C BC #### [facility] [address] [place] [address] Dr. Sonido Bejarano NEUT # 3.2 103/ul Normal 1.4-6.5 [facility] Comment on above: Performed By: #### C BC #### [facility] [address] [place] [address] Dr. Sonido Bejarano Neutrophils/100 WBC (Bld) 62.2 % Normal 43.0-75.0 [facility] Comment on above: Performed By: #### C BC #### [facility] [address] [place] [address] Dr. Sonido Bejarano Platelet mean volume (Bld) [Entitic vol] 8.6 fL Critically low 9.5-13.5 [facility] Comment on above: Performed By: #### C BC #### [facility] [address] [place] [address] Dr. Sonido Bejarano PLT 345 103/ul Normal 150-450 [facility] Comment on above: Performed By: #### C BC #### [facility] [address] [place] [address] Dr. Sonido Bejarano RBC 5.38 106/ul Normal 4.70-6.10 [facility] Comment on above: Performed By: #### C BC #### [facility] [address] [place] [address] Dr. Sonido Bejarano WBC 5.2 103/ul Normal 4.0-11.0 [facility] Comment on above: Performed By: #### C BC #### [facility] [address] [place] [address] Dr. Sonido Bejarano CBC W MANUAL DIFFon 09-18-20 22 ANISOCYTOSIS 3+ Normal [facility] Comment on above: Performed By: #### C BCMAN #### [facility] [address] [place] [address] Dr. Sonido Bejarano ATYPICAL LYMPH # Normal [facility] Comment on above: Performed By: #### C BCMAN #### [facility] [address] [place] [address] Dr. Sonido Bejarano ATYPICAL LYMPH % Normal [facility] Comment on above: Performed By: #### C BCMAN #### [facility] [address] [place] [address] Dr. Sonido Bejarano BAND # Normal 0.0-0.3 [facility] Comment on above: Performed By: #### C BCMAN #### [facility] [address] [place] [address] Dr. Sonido Bejarano BAND % Normal 0-5 [facility] Comment on above: Performed By: #### C BCMAN #### [facility] [address] [place] [address] Dr. Sonido Bejarano BASOM # 0.00 103/ul Normal 0.00-0.10 [facility] Comment on above: Performed By: #### C BCMAN #### [facility] [address] [place] [address] Dr. Sonido Bejarano BASOM % 0.0 % Critically low 0.2-2.0 [facility] Comment on above: Performed By: #### C BCMAN #### [facility] [address] [place] [address] Dr. Sonido Bejarano BLAST # Normal [facility] Comment on above: Performed By: #### C RAMILA #### [facility] [address] [address] [address] Sonido Bejarano BLAST % Normal [facility] Comment on above: Performed By: #### C RAMILA #### [facility] [address] [address] [address] Sonido Bejarano CORRECTED WBC Normal 4.0-11.0 [facility] Comment on above: Performed By: #### C RAMILA #### [facility] [address] [place] [address] Dr. Sonido Bejarano EOS # 0.08 103/ul Normal 0.00-0.70 [facility] Comment on above: Performed By: #### C RAMILA #### [facility] [address] [place] [address] Dr. Sonido Bejarano EOS% 2.0 % Normal 0.9-7.0 [facility] Comment on above: Performed By: #### Brigitte MCGRATH #### [facility] [address] [place] [address] Dr. Sonido Bejarano HCT 31.1 % Critically low 42.0-54.0 [facility] Comment on above: Performed By: #### C RAMILA #### [facility] [address] [place] [address] Dr. Sonido Bejarano HGB 8.3 g/dl Critically low 14.0-18.0 [facility] Comment on above: Performed By: #### C RAMILA #### [facility] [address] [place] [address] Dr. Sonido Bejarano HYPOCHROMASIA SLIGHT Normal [facility] Comment on above: Performed By: #### C RAMILA #### [facility] [address] [place] [address] Dr. Sonido Bejarano LYMPHM # 1.13 103/ul Critically low 1.20-3.80 [facility] Comment on above: Performed By: #### Brigitte MCGRATH #### [facility] [address] [place] [address] Dr. Sonido Bejarano LYMPHM% 27.0 % Normal 20.5-60.0 [facility] Comment on above: Performed By: #### C RAMILA #### [facility] [address] [place] [address] Dr. Sonido Bejarano MCH 15.9 pg Critically low 25.9-34.0 [facility] Comment on above: Performed By: #### C RAMILA #### [facility] [address] [place] [address] Dr. Sonido Bejarano MCHC 26.7 g/dl Critically low 29.9-35.2 [facility] Comment on above: Performed By: #### C RAMILA #### [facility] [address] [place] [address] Dr. Sonido Bejarano MCV 59.5 fL Critically low 80.0-94.0 [facility] Comment on above: Performed By: #### C RAMILA #### [facility] [address] [place] [address] Dr. Sonido Bejarano METAMYELOCYTE # Normal [facility] Comment on above: Performed By: #### C RAMILA #### [facility] [address] [place] [address] Dr. Sonido Bejarano METAMYELOCYTE % Normal [facility] Comment on above: Performed By: #### C RAMILA #### [facility] [address] [place] [address] Dr. Sonido Bejarano MICROCYTOSIS 3+ Normal [facility] Comment on above: Performed By: #### C BCKATHERINE #### [facility] [address] [place] [address] Dr. Sonido Bejarano MONOM# 0.55 103/ul Normal 0.30-0.80 [facility] Comment on above: Performed By: #### C RAMILA #### [facility] [address] [place] [address] Dr. Sonido Bejarano MONOM% 13.0 % Critically high 1.7-12.0 [facility] Comment on above: Performed By: #### C RAMILA #### [facility] [address] [place] [address] Dr. Sonido Bejarano MPV 9.7 fL Normal 9.5-13.5 [facility] Comment on above: Performed By: #### C RAMILA #### [facility] [address] [place] [address] Dr. Sonido Bejarano MYELOCYTE # Normal [facility] Comment on above: Performed By: #### C RAMILA #### [facility] [address] [place] [address] Dr. Sonido Bejarano MYELOCYTE % Normal [facility] Comment on above: Performed By: #### C RAMILA #### [facility] [address] [place] [address] Dr. Sonido Bejarano NRBC Normal [facility] Comment on above: Performed By: #### C RAMILA #### [facility] [address] [place] [address] Dr. Sonido Bejarano PLT 421 103/ul Normal 150-450 [facility] Comment on above: Performed By: #### C RAMILA #### [facility] [address] [place] [address] Dr. Sonido Bejarano RBC 5.23 106/ul Normal 4.70-6.10 [facility] Comment on above: Performed By: #### C RAMILA #### [facility] [address] [place] [address] Dr. Sonido Bejarano RDW 22.2 % Critically high 11.0-15.0 [facility] Comment on above: Performed By: #### C RAMILA #### [facility] [address] [place] [address] Dr. Sonido Bejarano SEG # 2.44 103/ul Normal 1.40-6.50 [facility] Comment on above: Performed By: #### C RAMILA #### [facility] [address] [place] [address] Dr. Sonido Bejarano SEG % 58.0 % Normal 43.0-75.0 [facility] Comment on above: Performed By: #### C RAMILA #### [facility] [address] [place] [address] Dr. Sonido Bejarano WBC 4.2 103/ul Normal 4.0-11.0 [facility] Comment on above: Performed By: #### C BCMAN #### [facility] [address] [place] [address] Dr. Sonido Bejarano CBC AUTO DIFFon 08-21-2022 BASO # 0.0 103/ul Normal 0.0-0.1 [facility] Comment on above: Performed By: #### C BC #### [facility] [address] [place] [address] Dr. Sonido Bejarano Basophils/100 WBC (Bld) 0.6 % Normal 0.2-2.0 [facility] Comment on above: Performed By: #### C BC #### [facility] [address] [place] [address] Dr. Sonido Bejarano EO # 0.1 103/ul Normal 0.0-0.7 [facility] Comment on above: Performed By: #### C BC #### [facility] [address] [place] [address] Dr. Sonido Bejarano Eosinophils/100 WBC (Bld) 1.0 % Normal 0.9-7.0 [facility] Comment on above: Performed By: #### C BC #### [facility] [address] [place] [address] Dr. Sonido Bejarano Erythrocyte distribution width (RBC) [Ratio] 21.9 % Critically high 11.0-15.0 [facility] Comment on above: Result Comment: anis ocytosis 2+ Performed By: #### C BC #### [facility] [address] [place] [address] Dr. Sonido Bejarano Hematocrit (Bld) [Volume fraction] 32.7 % Critically low 42.0-54.0 [facility] Comment on above: Performed By: #### C BC #### [facility] [address] [place] [address] Dr. Sonido Bejarano Hemoglobin (Bld) [Mass/Vol] 8.4 g/dL Critically low 14.0-18.0 [facility] Comment on above: Performed By: #### C BC #### [facility] [address] [address] [address] Sonido Bejarano IG # 0.01 10e3/ul Normal 0.00-0.03 [facility] Comment on above: Performed By: #### C BC #### [facility] [address] [place] [address] Dr. Sonido Bejarano IG % 0.2 % Normal 0.0-0.5 [facility] Comment on above: Performed By: #### C BC #### [facility] [address] [place] [address] Dr. Sonido Bejarano LYMPH # 1.1 103/ul Critically low 1.2-3.8 [facility] Comment on above: Performed By: #### C BC #### [facility] [address] [place] [address] Dr. Sonido Bejarano Lymphocytes/100 WBC (Bld) 22.3 % Normal 20.5-60.0 [facility] Comment on above: Performed By: #### C BC #### [facility] [address] [place] [address] Dr. Sonido Bejarano MANUAL DIFF REQ NO Normal [facility] Comment on above: Performed By: #### C BC #### [facility] [address] [place] [address] Dr. Sonido Bejarano MCH (RBC) [Entitic mass] 15.3 pg Critically low 25.9-34.0 [facility] Comment on above: Performed By: #### C BC #### [facility] [address] [place] [address] Dr. Sonido Bejarano MCHC (RBC) [Mass/Vol] 25.7 g/dL Critically low 29.9-35.2 [facility] Comment on above: Result Comment: hypo chromasia 2+ Performed By: #### C BC #### [facility] [address] [place] [address] Dr. Sonido Bejarano MCV (RBC) [Entitic vol] 59.6 fL Critically low 80.0-94.0 [facility] Comment on above: Result Comment: micr ocytosis 3+ Performed By: #### C BC #### [facility] [address] [place] [address] Dr. Sonido Bejarano MONO # 0.5 103/ul Normal 0.3-0.8 [facility] Comment on above: Performed By: #### C BC #### [facility] [address] [place] [address] Dr. Sonido Bejarano Monocytes/100 WBC (Bld) 10.8 % Normal 1.7-12.0 [facility] Comment on above: Performed By: #### C BC #### [facility] [address] [place] [address] Dr. Sonido Bejarano NEUT # 3.2 103/ul Normal 1.4-6.5 [facility] Comment on above: Performed By: #### C BC #### [facility] [address] [place] [address] Dr. Sonido Bejarano Neutrophils/100 WBC (Bld) 65.1 % Normal 43.0-75.0 [facility] Comment on above: Performed By: #### C BC #### [facility] [address] [place] [address] Dr. Sonido Bejarano Platelet mean volume (Bld) [Entitic vol] 9.5 fL Normal 9.5-13.5 [facility] Comment on above: Performed By: #### C BC #### [facility] [address] [place] [address] Dr. Sonido Bejarano PLT 415 103/ul Normal 150-450 [facility] Comment on above: Performed By: #### C BC #### [facility] [address] [place] [address] Dr. Sonido Bejarano RBC 5.49 106/ul Normal 4.70-6.10 [facility] Comment on above: Performed By: #### C BC #### [facility] [address] [place] [address] Dr. Sonido Bejarano WBC 5.0 103/ul Normal 4.0-11.0 [facility] Comment on above: Performed By: #### C BC #### [facility] [address] [place] [address] Dr. Sonido Bejarano CBC AUTO DIFFon 08-02-2022 BASO # 0.0 103/ul Normal 0.0-0.1 [facility] Comment on above: Performed By: #### C BC #### [facility] [address] [place] [address] Dr. Sonido Bejarano Basophils/100 WBC (Bld) 0.3 % Normal 0.2-2.0 [facility] Comment on above: Performed By: #### C BC #### [facility] [address] [place] [address] Dr. Sonido Bejarano EO # 0.0 103/ul Normal 0.0-0.7 [facility] Comment on above: Performed By: #### C BC #### [facility] [address] [place] [address] Dr. Sonido Bejarano Eosinophils/100 WBC (Bld) 0.7 % Critically low 0.9-7.0 [facility] Comment on above: Performed By: #### C BC #### [facility] [address] [place] [address] Dr. Sonido Bejarano Erythrocyte distribution width (RBC) [Ratio] 21.9 % Critically high 11.0-15.0 [facility] Comment on above: Performed By: #### C BC #### [facility] [address] [place] [address] Dr. Sonido Bejarano Hematocrit (Bld) [Volume fraction] 30.0 % Critically low 42.0-54.0 [facility] Comment on above: Performed By: #### C BC #### [facility] [address] [place] [address] Dr. Sonido Bejarano Hemoglobin (Bld) [Mass/Vol] 7.8 g/dL Critically low 14.0-18.0 [facility] Comment on above: Performed By: #### C BC #### [facility] [address] [place] [address] Dr. Sonido Bejarano IG # 0.01 10e3/ul Normal 0.00-0.03 [facility] Comment on above: Performed By: #### C BC #### [facility] [address] [place] [address] Dr. Sonido Bejarano IG % 0.2 % Normal 0.0-0.5 [facility] Comment on above: Performed By: #### C BC #### [facility] [address] [place] [address] Dr. Sonido Bejarano LYMPH # 1.0 103/ul Critically low 1.2-3.8 [facility] Comment on above: Performed By: #### C BC #### [facility] [address] [place] [address] Dr. Sonido Bejarano Lymphocytes/100 WBC (Bld) 18.0 % Critically low 20.5-60.0 [facility] Comment on above: Performed By: #### C BC #### [facility] [address] [place] [address] Dr. Sonido Bejarano MANUAL DIFF REQ NO Normal [facility] Comment on above: Performed By: #### C BC #### [facility] [address] [place] [address] Dr. Sonido Bejarano MCH (RBC) [Entitic mass] 15.9 pg Critically low 25.9-34.0 [facility] Comment on above: Performed By: #### C BC #### [facility] [address] [place] [address] Dr. Sonido Bejarano MCHC (RBC) [Mass/Vol] 26.0 g/dL Critically low 29.9-35.2 [facility] Comment on above: Performed By: #### C BC #### [facility] [address] [place] [address] Dr. Sonido Bejarano MCV (RBC) [Entitic vol] 61.2 fL Critically low 80.0-94.0 [facility] Comment on above: Performed By: #### C BC #### [facility] [address] [place] [address] Dr. Sonido Bejarano MONO # 0.5 103/ul Normal 0.3-0.8 [facility] Comment on above: Performed By: #### C BC #### [facility] [address] [place] [address] Dr. Sonido Bejarano Monocytes/100 WBC (Bld) 8.7 % Normal 1.7-12.0 [facility] Comment on above: Performed By: #### C BC #### [facility] [address] [place] [address] Dr. Sonido Bejarano NEUT # 4.1 103/ul Normal 1.4-6.5 [facility] Comment on above: Performed By: #### C BC #### [facility] [address] [place] [address] Dr. Sonido Bejarano Neutrophils/100 WBC (Bld) 72.1 % Normal 43.0-75.0 [facility] Comment on above: Performed By: #### C BC #### [facility] [address] [place] [address] Dr. Sonido Bejarano Platelet mean volume (Bld) [Entitic vol] 9.3 fL Critically low 9.5-13.5 [facility] Comment on above: Performed By: #### C BC #### [facility] [address] [place] [address] Dr. Sonido Bejarano PLT 339 103/ul Normal 150-450 [facility] Comment on above: Performed By: #### C BC #### [facility] [address] [place] [address] Dr. Sonido Bejarano RBC 4.90 106/ul Normal 4.70-6.10 [facility] Comment on above: Performed By: #### C BC #### [facility] [address] [place] [address] Dr. Sonido Bejarano WBC 5.7 103/ul Normal 4.0-11.0 [facility] Comment on above: Performed By: #### C BC #### [facility] [address] [place] [address] Dr. Sonido Bejarano CBC AUTO DIFFon 06-17-2022 BASO # 0.0 103/ul Normal 0.0-0.1 [facility] Comment on above: Performed By: #### C BC #### [facility] [address] [place] [address] Dr. Sonido Bejarano Basophils/100 WBC (Bld) 0.7 % Normal 0.2-2.0 [facility] Comment on above: Performed By: #### C BC #### [facility] [address] [place] [address] Dr. Sonido Bejarano EO # 0.3 103/ul Normal 0.0-0.7 [facility] Comment on above: Performed By: #### C BC #### [facility] [address] [place] [address] Dr. Sonido Bejarano Eosinophils/100 WBC (Bld) 5.3 % Normal 0.9-7.0 [facility] Comment on above: Performed By: #### C BC #### [facility] [address] [place] [address] Dr. Sonido Bejarano Erythrocyte distribution width (RBC) [Ratio] 22.1 % Critically high 11.0-15.0 [facility] Comment on above: Performed By: #### C BC #### [facility] [address] [place] [address] Dr. Sonido Bejarano Hematocrit (Bld) [Volume fraction] 32.2 % Critically low 42.0-54.0 [facility] Comment on above: Performed By: #### C BC #### [facility] [address] [place] [address] Dr. Sonido Bejarano Hemoglobin (Bld) [Mass/Vol] 8.2 g/dL Critically low 14.0-18.0 [facility] Comment on above: Performed By: #### C BC #### [facility] [address] [place] [address] Dr. Sonido Bejarano IG # 0.01 10e3/ul Normal 0.00-0.03 [facility] Comment on above: Performed By: #### C BC #### [facility] [address] [place] [address] Dr. Sonido Bejarano IG % 0.2 % Normal 0.0-0.5 [facility] Comment on above: Performed By: #### C BC #### [facility] [address] [place] [address] Dr. Sonido Bejarano LYMPH # 1.1 103/ul Critically low 1.2-3.8 [facility] Comment on above: Performed By: #### C BC #### [facility] [address] [place] [address] Dr. Sonido Bejarano Lymphocytes/100 WBC (Bld) 19.3 % Critically low 20.5-60.0 [facility] Comment on above: Performed By: #### C BC #### [facility] [address] [place] [address] Dr. Sonido Bejarano MANUAL DIFF REQ NO Normal [facility] Comment on above: Performed By: #### C BC #### [facility] [address] [place] [address] Dr. Sonido Bejarano MCH (RBC) [Entitic mass] 15.8 pg Critically low 25.9-34.0 [facility] Comment on above: Performed By: #### C BC #### [facility] [address] [place] [address] Dr. Sonido Bejarano MCHC (RBC) [Mass/Vol] 25.5 g/dL Critically low 29.9-35.2 [facility] Comment on above: Performed By: #### C BC #### [facility] [address] [place] [address] Dr. Sonido Bejarano MCV (RBC) [Entitic vol] 62.0 fL Critically low 80.0-94.0 [facility] Comment on above: Performed By: #### C BC #### [facility] [address] [place] [address] Dr. Sonido Bejarano MONO # 0.9 103/ul Critically high 0.3-0.8 [facility] Comment on above: Performed By: #### C BC #### [facility] [address] [place] [address] Dr. Sonido Bejarano Monocytes/100 WBC (Bld) 16.0 % Critically high 1.7-12.0 [facility] Comment on above: Performed By: #### C BC #### [facility] [address] [place] [address] Dr. Sonido Bejarano NEUT # 3.2 103/ul Normal 1.4-6.5 [facility] Comment on above: Performed By: #### C BC #### [facility] [address] [place] [address] Dr. Sonido Bejarano Neutrophils/100 WBC (Bld) 58.5 % Normal 43.0-75.0 [facility] Comment on above: Performed By: #### C BC #### [facility] [address] [place] [address] Dr. Sonido Bejarano Platelet mean volume (Bld) [Entitic vol] 9.3 fL Critically low 9.5-13.5 [facility] Comment on above: Performed By: #### C BC #### [facility] [address] [place] [address] Dr. Sonido Bejarano PLT 335 103/ul Normal 150-450 [facility] Comment on above: Performed By: #### C BC #### [facility] [address] [place] [address] Dr. Sonido Bejarano RBC 5.19 106/ul Normal 4.70-6.10 [facility] Comment on above: Performed By: #### C BC #### [facility] [address] [place] [address] Dr. Sonido Bejarano WBC 5.5 103/ul Normal 4.0-11.0 [facility] Comment on above: Performed By: #### C BC #### [facility] [address] [place] [address] Dr. Sonido Bejarano CBC AUTO DIFFon 05-15-2022 BASO # 0.0 103/ul Normal 0.0-0.1 [facility] Comment on above: Performed By: #### C BC #### [facility] [address] [place] [address] Dr. Sonido Bejarano Basophils/100 WBC (Bld) 0.8 % Normal 0.2-2.0 [facility] Comment on above: Performed By: #### C BC #### [facility] [address] [place] [address] Dr. Sonido Bejarano EO # 0.1 103/ul Normal 0.0-0.7 [facility] Comment on above: Performed By: #### C BC #### [facility] [address] [place] [address] Dr. Sonido Bejarano Eosinophils/100 WBC (Bld) 2.3 % Normal 0.9-7.0 [facility] Comment on above: Performed By: #### C BC #### [facility] [address] [place] [address] Dr. Sonido Bejarano Erythrocyte distribution width (RBC) [Ratio] 21.5 % Critically high 11.0-15.0 [facility] Comment on above: Performed By: #### C BC #### [facility] [address] [place] [address] Dr. Sonido Bejarano Hematocrit (Bld) [Volume fraction] 30.5 % Critically low 42.0-54.0 [facility] Comment on above: Performed By: #### C BC #### [facility] [address] [place] [address] Dr. Sonido Bejarano Hemoglobin (Bld) [Mass/Vol] 7.9 g/dL Critically low 14.0-18.0 [facility] Comment on above: Performed By: #### C BC #### [facility] [address] [place] [address] Dr. Sonido Bejarano IG # 0.01 10e3/ul Normal 0.00-0.03 [facility] Comment on above: Performed By: #### C BC #### [facility] [address] [place] [address] Dr. Sonido Bejarano IG % 0.2 % Normal 0.0-0.5 [facility] Comment on above: Performed By: #### C BC #### [facility] [address] [place] [address] Dr. Sonido Bejarano LYMPH # 1.3 103/ul Normal 1.2-3.8 [facility] Comment on above: Performed By: #### C BC #### [facility] [address] [place] [address] Dr. Sonido Bejarano Lymphocytes/100 WBC (Bld) 24.6 % Normal 20.5-60.0 [facility] Comment on above: Performed By: #### C BC #### [facility] [address] [place] [address] Dr. Sonido Bejarano MANUAL DIFF REQ NO Normal [facility] Comment on above: Performed By: #### C BC #### [facility] [address] [place] [address] Dr. Sonido Bejarano MCH (RBC) [Entitic mass] 15.6 pg Critically low 25.9-34.0 [facility] Comment on above: Performed By: #### C BC #### [facility] [address] [place] [address] Dr. Sonido Bejarnao MCHC (RBC) [Mass/Vol] 25.9 g/dL Critically low 29.9-35.2 [facility] Comment on above: Performed By: #### C BC #### [facility] [address] [place] [address] Dr. Sonido Bejarano MCV (RBC) [Entitic vol] 60.4 fL Critically low 80.0-94.0 [facility] Comment on above: Performed By: #### C BC #### [facility] [address] [place] [address] Dr. Sonido Bejarano MONO # 0.6 103/ul Normal 0.3-0.8 [facility] Comment on above: Performed By: #### C BC #### [facility] [address] [place] [address] Dr. Sonido Bejarano Monocytes/100 WBC (Bld) 12.1 % Critically high 1.7-12.0 [facility] Comment on above: Performed By: #### C BC #### [facility] [address] [place] [address] Dr. Sonido Bejarano NEUT # 3.1 103/ul Normal 1.4-6.5 [facility] Comment on above: Performed By: #### C BC #### [facility] [address] [place] [address] Dr. Sonido Bejarano Neutrophils/100 WBC (Bld) 60.0 % Normal 43.0-75.0 [facility] Comment on above: Performed By: #### C BC #### [facility] [address] [place] [address] Dr. Sonido Bejarano Platelet mean volume (Bld) [Entitic vol] 9.6 fL Normal 9.5-13.5 [facility] Comment on above: Performed By: #### C BC #### [facility] [address] [place] [address] Dr. Sonido Bejarano PLT 399 103/ul Normal 150-450 [facility] Comment on above: Performed By: #### C BC #### [facility] [address] [place] [address] Dr. Sonido Bejarano RBC 5.05 106/ul Normal 4.70-6.10 [facility] Comment on above: Performed By: #### C BC #### [facility] [address] [place] [address] Dr. Sonido Bejarano WBC 5.1 103/ul Normal 4.0-11.0 [facility] Comment on above: Performed By: #### C BC #### [facility] [address] [place] [address] Dr. Sonido Bejarano CBC AUTO DIFFon 04-15-2022 BASO # 0.0 103/ul Normal 0.0-0.1 [facility] Comment on above: Performed By: #### C BC #### [facility] [address] [place] [address] Dr. Sonido Bejarano Basophils/100 WBC (Bld) 0.3 % Normal 0.2-2.0 [facility] Comment on above: Performed By: #### C BC #### [facility] [address] [place] [address] Dr. Sonido Bejarano EO # 0.1 103/ul Normal 0.0-0.7 [facility] Comment on above: Performed By: #### C BC #### [facility] [address] [place] [address] Dr. Sonido Bejarano Eosinophils/100 WBC (Bld) 1.0 % Normal 0.9-7.0 [facility] Comment on above: Performed By: #### C BC #### [facility] [address] [place] [address] Dr. Sonido Bejarano Erythrocyte distribution width (RBC) [Ratio] 21.2 % Critically high 11.0-15.0 [facility] Comment on above: Performed By: #### C BC #### [facility] [address] [place] [address] Dr. Sonido Bejarano Hematocrit (Bld) [Volume fraction] 32.2 % Critically low 42.0-54.0 [facility] Comment on above: Performed By: #### C BC #### [facility] [address] [place] [address] Dr. Sonido Bejarano Hemoglobin (Bld) [Mass/Vol] 8.3 g/dL Critically low 14.0-18.0 [facility] Comment on above: Performed By: #### C BC #### [facility] [address] [place] [address] Dr. Sonido Bejarano IG # 0.03 10e3/ul Normal 0.00-0.03 [facility] Comment on above: Performed By: #### C BC #### [facility] [address] [place] [address] Dr. Sonido Bejarano IG % 0.4 % Normal 0.0-0.5 [facility] Comment on above: Performed By: #### C BC #### [facility] [address] [place] [address] Dr. Sonido Bejarano LYMPH # 1.0 103/ul Critically low 1.2-3.8 The [facility] Comment on above: Performed By: #### C BC #### [facility] [address] [place] [address] Dr. Sonido Bejarano Lymphocytes/100 WBC (Bld) 15.2 % Critically low 20.5-60.0 [facility] Comment on above: Performed By: #### C BC #### [facility] [address] [place] [address] Dr. Sondio Bejarano MANUAL DIFF REQ NO Normal [facility] Comment on above: Performed By: #### C BC #### [facility] [address] [place] [address] Dr. Sonido Bejarano MCH (RBC) [Entitic mass] 16.1 pg Critically low 25.9-34.0 [facility] Comment on above: Performed By: #### C BC #### [facility] [address] [place] [address] Dr. Sonido Bejarano MCHC (RBC) [Mass/Vol] 25.8 g/dL Critically low 29.9-35.2 [facility] Comment on above: Performed By: #### C BC #### [facility] [address] [place] [address] Dr. Sonido Bejarano MCV (RBC) [Entitic vol] 62.4 fL Critically low 80.0-94.0 [facility] Comment on above: Performed By: #### C BC #### [facility] [address] [place] [address] Dr. Sonido Bejarano MONO # 0.6 103/ul Normal 0.3-0.8 [facility] Comment on above: Performed By: #### C BC #### [facility] [address] [place] [address] Dr. Sonido Bejarano Monocytes/100 WBC (Bld) 8.5 % Normal 1.7-12.0 [facility] Comment on above: Performed By: #### C BC #### [facility] [address] [place] [address] Dr. Sonido Bejarano NEUT # 5.0 103/ul Normal 1.4-6.5 [facility] Comment on above: Performed By: #### C BC #### [facility] [address] [place] [address] Dr. Sonido Bejarano Neutrophils/100 WBC (Bld) 74.6 % Normal 43.0-75.0 [facility] Comment on above: Performed By: #### C BC #### [facility] [address] [place] [address] Dr. Sonido Bejarano Platelet mean volume (Bld) [Entitic vol] 9.9 fL Normal 9.5-13.5 [facility] Comment on above: Performed By: #### C BC #### [facility] [address] [address] [address] Sonido Bejarano PLT 355 103/ul Normal 150-450 [facility] Comment on above: Performed By: #### C BC #### [facility] [address] [address] [address] Sonido Bejarano RBC 5.16 106/ul Normal 4.70-6.10 [facility] Comment on above: Result Comment: 1+ o valocytes slight hypochromic slight microchromic Performed By: #### C BC #### [facility] [address] [address] [address] Sonido Bejarano WBC 6.7 103/ul Normal 4.0-11.0 [facility] Comment on above: Performed By: #### C BC #### [facility] [address] [address] [address] Sonido Bejarano CNOVon 03-28-2022 CNOV Office Visit ([facility] ) -------- RJ COLBERT ([id number]) 2000 M Reese De* Date Time Provider Department 03/28/22 11:20 AM ARNOLD GENAO [facility] During your visit today, we recorded the [...] the office on 11/16/21 with Cristal Nava [employer] for follow up visit after he underwent [...] exam Anorectal: External exam reveals: see below Montessori Teacher present: yes Assessment Assessment and Plan: Rj [...] Assessed Reason for Visit: Established Patient Follow-Up [35903903] Rectal Bleeding [202] Primary Visit Diagnosis:Hematochezia [K92.1] [...] benztropine (C (more content not included)... Normal [facility] Lisa 03-28-2022 [facility] Tele[facility] ([facility]) -------- RJ COLBERT ([id number]) 2000 Genia Reyez* Date Time Provider Department 03/28/22 ARNOLD GENAO [facility] During your visit today, we recorded the following information about you: Essie Pryorle Pss 03/28/2022 1:41 PM Signed Patient called and left message regarding prescription from today's visit return call to [phone] Charley Mcclelland, BELINDA 03/28/2022 2:49 PM Signed Returned call. Spoke with Rj's nurse. She states she needs a script sent to his pharmacy for the magnesium supplement for constipation. Script will be sent. No other questions or concerns at this time. Allergies As of Date: 03/28/2022 (No Known Allergies) Date Reviewed: 03/28/2022 Reviewed by: Yamile Berrios MA - Fully Assessed Reason for Visit: Patient Question [7037] Prescriptions as of 03/28/2022 - acetaminophen (TYLENOL) [...] Encounter Status:Closed by CHARLEY MCCLELLAND on 03/28/22 [facility] Telephone ([id number]) -------- RJ COLBERT ([id number]) 2000 Genia Reyez* Date Time Provider Department 03/28/22 ARNOLD GENAO [id number] During your visit today, we recorded the following information about you: Sara Rose [facility] 03/28/2022 3:45 PM Signed Pharmacy, [facility], [facility], phone , any pharmacist to clarify about carbonate? [place] [facility] able to order as food item? Please call to discuss. Charley Mcclelland, RN 03/28/2022 4:14 PM Signed Spoke with the pharmacist and she states that she does not provide food items. She will speak with the nurse at the [place] [facility]. Allergies As of Date: 03/28/2022 (No Known [...] by CHARLEY MCCLELLAND on 03/28/22 [facility] CNOVon 11-16-2021 CNOV Office Visit ([facility] ) -------- RJ COLBERT ([id number]) 2000 Genia Reyez* Date Time Provider Department 11/16/21 1:30 PM CRISTAL NAVA During your visit today, we recorded the following information about you: Pulse Blood pressure Weight Height 60/minute 136/80 96.2 kg 1.803 m Cristal Nava APRN.SENIOR SCHEDULER 11/16/2021 12:59 PM Signed COLORECTAL SURGERY November [...] results with patient and POA. Cristal Nava APRN.SENIOR SCHEDULER Colorectal Surgery Referring Provider: ARNOLD GENAO [[id number]] Allergies As of Date: 11/16/2021 (No Known Allergies) Date Reviewed: 11/16/2021 Reviewed by: Cristal Nava APRN.SENIOR SCHEDULER - Fully Assessed Reason for Visit: Post [...] 07/10/2021 Hemorrho (more content not included)... Normal [facility] ANES POSTPROC EVALon 021 ANES POSTPROC EVAL HNO ID: [id number] Author: Michael Martínez MD Service: Anesthesiology Author Type: Anesthesiologist Type: Anesthesia Postprocedure Evaluation Filed: 10/17/2021 10:23 AM Note Text: POST ANESTHESIA EVALUATION NOTE : 2000 Procedure Summary Date: 10/17/21 Room / Location: [address] Anesthesia Start: 841 Anesthesia Stop: 913 Procedure: HEMORRHOIDECTOMY EXTERNAL > 2 COLUMNS/GROUPS (N/A Anus) Diagnosis: Hemorrhoids, unspecified hemorrhoid type (Hemorrhoids, unspecified hemorrhoid type [K64.9]) Surgeons: Arnold Genao MD Responsible Provider: Michael Martínez MD Anesthesia Type: general ASA Status: 2 Anesthesia Type: general Airway Type: LMA Last Vitals Vitals Value Taken Time BP 129/88 10/17/21 0955 Temp 36.3 ?C (97.3 ?F) 10/17/21 0911 Pulse 84 10/17/21 0955 Resp 16 10/17/21 0955 SpO2 100 % 10/17/21 0955 Post Anesthesia Patient Status Patient Evaluation: PACU. [...] October 17, 2021 TIME: 10:23 AM CSN: [id number] [facility] ANES PRE-OPon 10-17-2021 ANES PRE-OP HNO ID: [id number] Author: Michael Martínez MD Service: Anesthesiology Author Type: Anesthesiologist Type: Anesthesia Preprocedure Evaluation Filed: 10/17/2021 8:32 AM Note Text: ANESTHESIOLOGY DAY OF SURGERY NOTE : 2000 Procedure Information Date/Time: 10/17/21729 Procedure: HEMORRHOIDECTOMY EXTERNAL > 2 COLUMNS/GROUPS (N/A ) Location: [address] / [facility] Surgeons: Arnold Genao MD Estimated [...] BP 120/80 10/17/21 0655 Pulse 80 10/17/21 06 Resp 16 10/17/21 06 Temp 36.2 ?C (97.2 ?F) 10/17/21 06 SpO2 100 % 10/17/21 06 Facility-Administered Medications [...] October 17, 2021 TIME: 8:27 AM CSN: [id number] [facility] BRIEF OP NOTon 10-17-2021 BRIEF OP NOT HNO ID: [id number] Author: Jared Rowe MD Service: Colorectal Author Type: Resident Type: Brief Op Note Filed: 10/17/2021 9:15 AM Note Text: BRIEF OPERATIVE / PROCEDURE NOTE LOG ID: [id number] SURGERY/PROCEDURE DATE: 10/17/2021 INCISION/PROCEDURE START TIME: 8:55 AM INCISION CLOSE/PROCEDURE END TIME: 9:02 AM SURGEON(S)/PROCEDURALIST (S) AND SOURCING INTERN(S): Surgeon(s) and Role: * Arnold Genao MD [...] DATE: October 17, 2021 TIME: 9:13 AM Normal [facility] HISTORY PHYSICALon HISTORY PHYSICAL HNO ID: [id number] Author: Jared Rowe MD Service: Colorectal Author [...] October 17, 2021 TIME: 7:22 AM Normal [facility] OPERATIVE NOon 10-17-2021 OPERATIVE NO HNO ID: [id number] Author: Arnold Genao MD Service: Colorectal Author Type: Physician Type: Operative Report Filed: 10/30/2021 11:21 AM Note Text: [facility] - Operative Report RJ COLBERT : 2000 AGE: 21. SEX: M PATIENT [place]: [place] [facility] [place] [facility] LOCATION: [facility] ATTENDING PHYSICIAN: Arnold Genao M.D. [facility] NUMBER: [id number] DATE OF SURGERY/PROCEDURE: 10/17/2021 INCISION/PROCEDURE START TIME: 8:55 AM INCISION CLOSE/PROCEDURE END TIME: 9:02 AM PREOPERATIVE DIAGNOSIS: Hemorrhoids. POSTOPERATIVE DIAGNOSIS: Hemorrhoids. SURGEON: Arnold Genao M.D. SOURCING INTERN: Jared. SURGERY/PROCEDURE: Ablation. ANESTHESIA: General ESTIMATED BLOOD [...] was overall very minor. Arnold Genao M.D. BC:[id number] /[id number] Normal [facility] HISTORY PHYSICALon HISTORY PHYSICAL HNO ID: [id number] Author: Zahira Heath APRN.HUSAM Service: ? Author Type: Nurse Practitioner Type: [...] PAT today with a caregiver from [place] [facility] [place]. States he is having around 5 bowel [...] fevers. Neuro: No history of TIA's, stroke, POWERHOUSE OPERATOR tumor, impaired sensorium, hemiplegia, paraplegia or quadraplegia. No neurological symptoms or problems. Respiratory: No history of current cough or dyspnea, or pneumonia in the past 6 weeks. No history of respiratory/pulmonary symptoms or problems. Cardiovascular: No history of HTN requiring medication, no history of angina, CHF, LA, cardiac surgery or stents. Denies rest pain, [...] skills. Pulse (more content not included)... Normal [facility] CNOVon 08-31-2021 CNOV Office Visit ([facility] ) -------- RJ COLBERT ([id number]) 2000 Genia [place] Co* Date Time Provider Department 08/31/21 1:30 PM ARNOLD GENAO During your visit today, we recorded the following information about you: Pulse Blood pressure Weight 91/minute 131/80 97.5 kg Arnold Genao MD 09/02/2021 7:18 AM Signed COLORECTAL SURGERY August 31, 2021 Rj Colbert 21 year old Chief Complaint: post op History of Present Illness: Rj Clobert is a 21 year old male presents [...] Anorectal: External exam reveals : see below Montessori Teacher present: yes Assessment Assessment and Plan: Rj Colbert is a 21 year old male who is doing relatively well after his recent rubber band ligation. He still has some rectal bleeding and it is difficult to assess the exact amount. If the bleeding persists we will consider internal hemorrhoidectomy. Arnold Genao MD Colorectal Surgery Referring Provider: ELHAM VAN [[id number]] Allergies As of Date: 08/31/2021 (No Known [...] Encounter Status:Closed by ARNOLD GENAO on 09/02/21 Normal [facility] OPERATIVE NOon 07-17-2021 OPERATIVE NO HNO ID: [id number] Author: Arnold Genao MD Service: Colorectal Author Type: Physician Type: Operative Report Filed: 08/01/2021 1:12 PM Note Text: [facility] - Operative Report RJ COLBERT : 2000 AGE: 21. SEX: M PATIENT TYPE: [place] [facility] [place] [facility] LOCATION: [facility] ATTENDING PHYSICIAN: Arnold Genao M.D. CSN NUMBER: [id number] DATE OF SURGERY/PROCEDURE: 07/12/2021 INCISION/PROCEDURE START TIME: 10:55 AM INCISION CLOSE/PROCEDURE END TIME: 10:58 AM PREOPERATIVE DIAGNOSIS: Rectal bleeding. POSTOPERATIVE DIAGNOSIS: Rectal bleeding. SURGEON: Arnold Genao M.D. SOURCING INTERN: None. SURGERY/PROCEDURE: Rubber-band ligation hemorrhoidectomy. ANESTHESIA: General [...] room in good condition. Arnold Genao M.D. BC:[id number] /[id number] [facility] 07-13-2021 [facility] Telephone ([facility]) -------- FILEMONRJ ([id number]) 2000 Genia Joseph Date Time Provider Department 07/13/21 ARNOLD GENAO [facility] During your visit today, we recorded the following information about you: Essie Pickard Pss 07/13/2021 3:27 PM Signed Patient's caregiver called with post operative hemorrhoidectomy questions and concerns of bands falling off return call to [phone] Sara Rose ADM 07/16/2021 12:22 PM Signed Kasia, caregiver called. Patient banding undone. Called last Friday, waiting to talk to nurse about care. [phone] Nona Banks RN 07/16/2021 4:56 PM Signed [...] Status:Closed by NONA BANKS on 07/16/21 Normal [facility] ANES POSTPROC EVALon 021 ANES POSTPROC EVAL HNO ID: [id number] Author: Jared Arriaga MD Service: Anesthesiology Author Type: Anesthesiologist Type: Anesthesia Postprocedure Evaluation Filed: 07/12/2021 12:05 PM Note Text: POST ANESTHESIA EVALUATION NOTE : 2000 Procedure Summary Date: 07/12/21 Room / Location: [address] Anesthesia Start: 1044 Anesthesia Stop: 1110 Procedures: [...] July 12, 2021 TIME: 12:05 PM CSN: [id number] [facility] ANES PRE-OPon 07-12-2021 ANES PRE-OP HNO ID: [id number] Author: Jared Arriaga MD Service: Anesthesiology Author [...] July 12, 2021 TIME: 9:18 AM CSN: [id number] [facility] HISTORY PHYSICALon HISTORY PHYSICAL HNO ID: [id number] Author: Arnold Genao MD Service: Colorectal Author [...] DATE: July 12, 2021 TIME: 10:39 AM [facility] HISTORY PHYSICALon HISTORY PHYSICAL HNO ID: [id number] Author: Zahira Ivy PA-C Service: ? Author Type: Physician Accounts Specialist Type: HANDP Filed: 07/10/2021 2:28 PM Note [...] PAT today with a caregiver from [place]. States he is having around 5 bowel [...] fevers. Neuro: No history of TIA's, stroke, POWERHOUSE OPERATOR tumor, impaired sensorium, hemiplegia, paraplegia or quadraplegia. No neurological symptoms or problems. + MR / DD Respiratory: No history of current cough or dyspnea, or pneumonia in the past 6 weeks. No history of respiratory/pulmonary symptoms or problems. Cardiovascular: No history of HTN requiring medication, no history of angina, CHF, LA, cardiac surgery or stents. Denies rest pain, [...] found for: (more content not included)... Normal [facility] 07-05-2021 [facility] Telephone ([id number]) -------- RJ COLBERT ([id number]) 2000 M Date Time Provider Department 07/05/21 ARNOLD GENAO [id number] During your visit today, we recorded the following information about you: Sara Rose ADM 07/05/2021 3:26 PM Signed Kasia Nurse [employer] Ax Consultant at [place] [facility] called to discuss procedure information and date. Call to discuss [phone] Sara Rose ADM 07/06/2021 11:12 AM Signed Kasia nurse aware of 07/12 procedure date. Would like the nurse to call to advise any prep instructions other than fasting after midnight. Call Nurse Kasia mgr [phone] Cristal Nava APRN.CNP 07/06/2021 12:27 PM Signed Call returned. Reviewed NPO after midnight and scheduled PACCs appointment. Allergies As of Date: 07/05/2021 (No Known Allergies) Date Reviewed: 06/29/2021 Reviewed by: Arnold Genao MD - Fully Assessed Reason for Visit: procedure info [Other] Cmt: discuss plan Primary Visit Diagnosis:Hemorrhoids, internal, with bleeding [K64.8] Order(s):VIRTUAL CONSULT TO PACC [[id number]] Order #: [id number]: 1 FUTURE Prescriptions as of 07/06/2021 - [...] Encounter Status:Closed by CRISTAL NAVA on 07/06/21 [facility] CNOVon 06-29-2021 CNOV Office Visit ([facility] ) -------- RJ COLBERT ([id number]) 2000 M Date Time Provider Department 06/29/21 [...] clinic today with a caregiver from [place]. They relate that he is having around [...] (222 lb 4.8 oz) BMI 31.90 kg/m? Montessori Teacher present: Yes Rj Colbert is a 21 year old male presents with complaint of rectal bleeding with prolapsing Grade 3 internal hemorrhoids on exam. Our plan is to perform an EUA and rubber band ligation of internal hemorrhoids at the [facility]. Medical Decision Making: Arnold Genao MD Colorectal Surgery Referring Provider: ELHAM VAN [[id number]] Allergies As of Date: 06/29/2021 (No Known [...] Encounter Status:Closed by ARNOLD GENAO on 06/29/21 [facility] 05-22-2021 [facility] Telephone ([facility]) -------- RJ COLBERT ([id number]) 2000 M Date Time Provider Department 05/22/21 ARNOLD GENAO [facility] During your visit today, we recorded the following information about you: Tamiko Sweeney 05/22/2021 3:28 PM Signed Ph. [phone] Alivia, who works for [employer], was transferred to Dr. Van's office [...] Genao - Fully Assessed Reason for Visit: Caster Helper - Other [2875] Cmt: appointment Prescriptions as of 05/23/2021 - [...] Status:Closed by NONA BANKS on 05/23/21 Normal [facility] Coding Summary.on 05-01-2018 Coding Summary. CODING DATE: 018 FINAL [facility] STATUS: Home (Routine OR) PAYOR: Medicaid EAPG DESCRIPTION 0390 LEVEL I [...] PROC EAPG STAT DESCRIPTION DOCTOR NAME DATE 10157 0149 Colonoscopy, flexible; Colin Shirley MD 04/17/2018 with biopsy, single or multiple 74 Discontinued [facility] Procedure After Administration of Anesthe 27215 Anesthesia for Colin Peñaloza MD 04/17/2018 intestinal endoscopic procedures, endoscope introduced distal to duodenum; not otherwise specified NOTE: The code number assigned matches the documented diagnosis and / or procedure in the patient's chart. However, the narrative phrase printed from the coding software may appear abbreviated, or result in slightly different terminology. Coded By: Sary Little Date Saved: 04/23/2018 11:46 am Normal [facility] Coding Summary. CODING DATE: 018 FINAL [facility] STATUS: Home (Routine DC) PAYOR: Medicaid EA [...] PROC EAPG STAT DESCRIPTION DOCTOR NAME DATE 64145 0149 Colonoscopy, flexible; Colin Shirley MD 04/17/2018 with biopsy, single or multiple 74 Discontinued [facility] Procedure After Administration of Anesthe 85504 Anesthesia for Colin Peñaloza MD 04/17/2018 intestinal endoscopic procedures, endoscope introduced distal to duodenum; not otherwise specified NOTE: The code number assigned matches the documented diagnosis and / or procedure in the patient's chart. However, the narrative phrase printed from the coding software may appear abbreviated, or result in slightly different terminology. Coded By: Sary Little Date Saved: 05/01/2018 08:02 am Normal [facility] Progress Note-Physicianon Progress Note-Physician Patient: RJ COLBERT [...] Cardiovascular: Regular rhythm. Neurologic: Alert, Oriented. Plan [place] Society of Anesthesiologists (ASA) physical status classification: Class II. Anesthetic Preoperative Plan Anesthesia: General. . Anesthetic plan, risks, benefits, and alternatives discussed with the patient and/or family. Communication: face to face with (patient 5 minutes, Patient educated on smoking cesstation). Normal [facility] Comment on above: Result Comment: Elec tronically Signed By: Quincy Ojeda Jr, DO\.karen\Date and Time Signed: 04/28/18 08:15 EDT Main OR Intraoperative Recor sheila 04-20-2018 Main OR Intraoperative Record IntraOp Document Type FT Summary Primary Physician: Colin Shirley MD Finalized Date/Time: 04/20/18 09:38:35 Pt. Name: RJ COLBERT/Sex: 2000 Male Med Rec #: [id number] Physician: Colin Shirley MD Financial #: [id number] Pt. Type: O Room/Bed: / Admit/Disch: 04/17/18 09:21:54 - 04/17/18 23:59:59 Institution: Case Times FT Entry 1 Patient Times In Room 04/17/18 13:14:00 Out Room 04/17/18 13:32:00 Procedure Times Start 04/17/18 13:18:00 Stop 04/17/18 13:29:00 Anesthesia Times Start 04/17/18 13:14:00 Stop 04/17/18 13:32:00 Last Modified By: Addie Oreilly CST 04/17/18 13:32:23 General Comments: 04/20/2018 Chart opened to review and send charges Marika Pineda PLAYERS ASSISTANT Case Attendance FT Entry 1 Entry 2 Entry 3 Case Attendee Casper GAUTAM, Colin Rene RN, Ashlee Boyd CST, Tori Role Performed Surgeon - Primary Infertility Medical Assistant - Primary Scrub - Primary Time In 04/17/18 13:14:00 04/17/18 13:14:00 04/17/18 13:14:00 Time Out 04/17/18 13:32:00 04/17/18 13:32:00 04/17/18 13:32:00 Procedure COLONOSCOPY(.) COLONOSCOPY(.) COLONOSCOPY(.) Comments Last Modified By: Anju RN, Ashlee Rene RN, Ashlee Jeffers RN 04/17/18 13:32:29 04/17/18 13:32:29 04/17/18 13:32:29 Entry 4 Entry 5 Entry [address] [facility], Zenaida Mortensen CAA, Magi Garrett C Role Performed Scrub - Other Scrub - Other Anesthesiologist Accounts Specialist Time In 04/17/18 13:14:00 04/17/18 13:14:00 04/17/18 13:14:00 Time Out 04/17/18 13:32:00 04/17/18 13:32:00 04/17/18 13:32:00 Procedure COLONOSCOPY(.) COLONOSCOPY(.) COLONOSCOPY(.) Comments ORIENTING help in room Dr. Pineda supervising Last Modified By: Ashlee Rene RN, RN, Ashlee Jeffers RN 04/17/18 13:32:29 04/17/18 13:32:29 04/17/18 13:32:29 Perioperative [...] MD, Given Participants Anju TREVINO, Ashlee, Festus CAA, Yvonne Briggs, Oliver ZARATE, Stas Valel Chemical Production Machine Operator, Jelani Bess Kirstyn K Time Out Complete [...] and tissue Entry 1 Skin Integrity Intact, [employer], Warm, and Skin Abnormality No Dry Outcomes [...] RN Patient Status Stable Skin. Condition Intact, [employer], Warm, and Dry Airway Maintenance Oxygen in Use? No Airway Device N/A Outcomes Met? Yes Last Modified By: Ashlee Rene RN 04/17/18 07:23:58 Post-Care Text: The patient is free from signs and symptoms of injury related to transfer/transport General Comments: REPORT GIVEN TO EMERGENCY SERVICES DIRECTOR/ AW neon electrician Administration FT Pre-Care Text: Verifies allergies, administers prescribed medications and solutions, administers prescribed antibiotic therapy and immunizing agents as ordered, evaluates response to medications Administers prescribed medications and solutions Entry 1 Expiration Date Yes Outcomes Met? Yes Verified Last Modified By: Ashlee Rene RN 04/17/18 07:24:05 Post-Care Text: The patient received appropriate medication(s) safely administered during the perioperative period For [facility] please see scanned medication reconcilliation form [...] 13:32 Addie Oreilly CST 04/20/18 09:38 Normal [facility] History and Physicalon 04-17 History and Physical Date: 03/10/2018 2:15 PMPatient Name: Rj Lepe #: [id number]: MaleDOB (age): 2000 (17)Provider: Annie Benton Complaint: Change in Bowel habits Blood in StoolHistory of Present Illness:17 years old -[place] male with multiple psychiatric problems, lives [place], referred to me to be evaluatedfor rectal [...] stool incontinence, stomachPrinted on 04/10/2018 Rj Colbert, [id number], 2000 Page 1 of 4Printed on 04/10/2018 Rj Colbert 13934, 2000cramps, straining. Denies abdominal pain, abdominal swelling, [...] up blood.Vital Signs:BP(mmHg)Pulse(ppm) Rhythm Weight (lbs/oz) Resp/min Bhgj207/68 82 Regular 191 / 12 98.3 (F)Physical [...] hemorrhageConstipationPl an: Colonoscopy will be performed at [facility] .Printed on 04/10/2018 Rj Filemon, [id number], 2000 Page 2 of 4Printed on 04/10/2018 Rj Colbert, [id number], 2000Risk & Medical Necessity: Diagnosis and management options are Extensive. The amount of data reviewedand/or ordered is Moderate. The level of risk is Moderate.Colin Shirley MD Rj Colbert, [id number], 2000 Page 3 of 4Printed on 04/10/2018 Rj Colbert, [id number], 2000Printed on 04/10/2018 Rj Filemon, 18641, 2000 Page 4 of 4Printed on 04/10/2018 Rj Colbert, [id number], 2000no change Normal [facility] Comment on above: Result Comment: Elec tronically Signed By: Casper GAUTAM, Colin\.br\Date and Time Signed: 04/17/18 13:15 EDT Inpatient Patient Summaryon 04-17-2018 [facility] InstructionsPERSON INFORMATION Name: RJ COLBERT PHYSICIANS Admitting Physician: Ronnell Shirley MDttending Physician: Colin Shirley MD PCP: Murphy WEISS MD Diagnosis: Rectal prolapse Comment: PATIENT EDUCATION INFORMATIONInstructions: Medication Leaflets:Follow up:With: Address: When: [facility], [address], [place] [address] Business (1) Within 1 to 2 weeks MEDICATION LISTComment: Normal [facility] Main OR PACU I Recordon 03-28 Main OR PACU I Record PACU Phase I Document Type FT Summary Primary Physician: Colin Shirley MD Finalized Date/Time: 04/17/18 14:14:33 Pt. Name: RJ COLBERT /Sex: 2000 Male Med Rec #: [id number] Physician: Colin Shirley MD Financial #: [id number] Pt. Type: O Room/Bed: / Admit/Disch: 04/17/18 [...] By: Essie Guzman RN 04/17/18 14:14 Normal [facility] Main OR Preoperative Recordo n 04-17-2018 Main OR Preoperative Record Holding Area Document Type FT Summary Primary Physician: Colin Shirley MD Finalized Date/Time: 04/17/18 09:56:12 Pt. Name: RJ COLBERT/Sex: 2000 Male Med Rec #: [id number] Physician: Colin Shirley MD Financial #: [id number] Pt. Type: O Room/Bed: / Admit/Disch: 04/17/18 [...] By: Viki James RN 04/17/18 09:56 Normal [facility] Patient Education - Texton 0 04-17-2018 Patient Education - Text [facility] Coding Summary.on 04-02-2018 Coding Summary. CODING DATE: 018 FINAL [facility] STATUS: Home (Routine DC) PAYOR: [...] PROC EAPG STAT DESCRIPTION DOCTOR NAME DATE [id number] Sigmoidoscopy, flexible; Colin Shirley MD 03/30/2018 with biopsy, single or multiple 74 Discontinued [facility] Procedure After Administration of Anesthe 69577 Anesthesia for lower Colin Shirley MD 03/30/2018 intestinal endoscopic procedures, endoscope introduced distal to duodenum; not otherwise specified NOTE: The code number assigned matches the documented diagnosis and / or procedure in the patient's chart. However, the narrative phrase printed from the coding software may appear abbreviated, or result in slightly different terminology. Coded By: Sary Little Date Saved: 04/02/2018 04:16 pm Normal [facility] Progress Note-Physicianon Progress Note-Physician Patient: RJ COLBERT [...] Cardiovascular: Regular rhythm. Neurologic: Alert, Oriented. Plan [place] Society of Anesthesiologists (ASA) physical status classification: Class II. Anesthetic Preoperative Plan Anesthesia: General. . Anesthetic plan, risks, benefits, and alternatives discussed with the patient and/or family. Communication: face to face with (patient 5 minutes, Patient educated on smoking cesstation). Normal [facility] Comment on above: Result Comment: Elec tronically Signed By: Quincy Ojeda Jr, DO\.karen\Date and Time Signed: 04/01/18 07:53 EDT History and Physicalon 03-30 History and Physical Date: 03/10/2018 2:15 PMPatient Name: Rj ColbertAccount #: [id number]: MaleDOB (age): 2000 (17)Provider: Annie Benton Complaint: Change in Bowel habits Blood in StoolHistory of Present Illness:17 years old -[place] male with multiple psychiatric problems, [place], referred to me to be evaluatedfor rectal [...] stool incontinence, stomachPrinted on 03/26/2018 Rj Colbert, [id number], 2000 Page 1 of 4Printed on 03/26/2018 Rj Colbert, [id number], 2000cramps, straining. Denies abdominal pain, abdominal swelling, [...] up blood.Vital Signs:BP(mmHg)Pulse(ppm) Rhythm Weight (lbs/oz) Resp/min Hhmx138/68 82 Regular 191 / 12 98.3 (F)Physical [...] hemorrhageConstipationPl an: Colonoscopy will be performed at [facility] .Printed on 03/26/2018 Rj Colbert [address], 2000 Page 2 of 4Printed on 03/26/2018 Rj Colbert 100[address], 2000Risk & Medical Necessity: Diagnosis and management options are Extensive. The amount of data reviewedand/or ordered is Moderate. The level of risk is Moderate.Colin Shirley MD Rj Colbert, [id number], 2000 Page 3 of 4Printed on 03/26/2018 Rj Colbert, [id number], 2000Printed on 03/26/2018 o[place]oper [place], 2000 Page 4 of 4Printed on 03/26/2018 Rj Colbert, [id number], 2000No change [facility] Comment on above: Result Comment: Elec tronically Signed By: Colin Shirley MD\.br\Date and Time Signed: 03/30/18 10:52 EDT Inpatient Patient Summaryon 03-30-2018 Inpatient [facility] InstructionsPERSON INFORMATION Name: RJ COLBERT PHYSICIANS Admitting Physician: Javier Shirley MD Physician: Colin Shirley MD PCP: Murphy WEISS MD Diagnosis: Internal hemorrhoids Comment: PATIENT EDUCATION INFORMATIONInstructions: Medication Leaflets:Follow up:With: Address: When: Colin Shirley [facility], [address] [place] [phone] Business (1) Within 1 to 2 weeks MEDICATION LISTComment: [facility] Main OR Intraoperative Recor don 03-30-2018 Main OR Intraoperative Record IntraOp Document Type FT Summary Primary Physician: Colin Shirley MD Finalized Date/Time: 03/30/18 11:37:17 Pt. Name: RJ COLBERT /Sex: 2000 Male Med Rec #: [id number] Physician: Colin Shirley MD Financial #: [id number] Pt. Type: O Room/Bed: / Admit/Disch: 03/30/18 09:32:43 - Institution: Case Times FT Entry 1 Patient Times In Room 03/30/18 10:56:00 Out Room 03/30/18 11:13:00 Procedure Times Start 03/30/18 10:59:00 Stop 03/30/18 11:09:00 Anesthesia Times Start 03/30/18 10:56:00 Stop 03/30/18 11:13:00 Last Modified By: Addie Oreilly CST 03/30/18 11:14:43 General Comments: 03/30/2018 Chart opened to review and send charges Marika Pineda PLAYERS ASSISTANT Case Attendance FT Entry 1 Entry 2 Entry 3 Case Attendee Rusty Fagan DO, Quincy Miller RN, Tori Capellan CST Role Performed Anesthesiologist of Infertility Medical Assistant - Primary Scrub - Primary Record Time In 03/30/18 10:56:00 03/30/18 10:56:00 03/30/18 10:56:00 Time Out 03/30/18 11:13:00 03/30/18 11:13:00 03/30/18 11:13:00 Procedure COLONOSCOPY(.) COLONOSCOPY(.) COLONOSCOPY(.) Comments Last Modified By: Paul RN, Francy Miller RN, Francy Miller RN, Francy Gregory 03/30/18 11:14:48 03/30/18 11:14:48 03/30/18 11:14:48 Entry 4 Entry 5 Case Attendee Casper GAUTAM, [facility] Role Performed Surgeon - Primary Scrub - Other Time In 03/30/18 10:56:00 03/30/18 10:56:00 Time Out 03/30/18 11:13:00 03/30/18 11:13:00 Procedure COLONOSCOPY(.) COLONOSCOPY(.) Comments Orienting Last Modified By: Paul RN, Francy Miller RN, Francy Gregory 03/30/18 [...] No Time Out Rusty Fagan DO, Quincy A, Given Participants Francy Miller RN, Casper GAUTAM, Colin [facility], Oliver Bess CST, Molly Time Out Complete 03/30/18 10:57:00 Outcomes Met? [...] and tissue Entry 1 Skin Integrity Intact, [employer], Warm, and Skin Abnormality No Dry Outcomes [...] RN Patient Status Stable Skin. Condition Intact, [employer], Warm, and Dry Airway Maintenance Oxygen in Use? No Airway Device N/A Outcomes Met? Yes Last Modified By: Francy Miller RN 03/30/18 07:37:17 Post-Care Text: The patient is free from signs and symptoms of injury related to transfer/transport General Comments: Report given to PACU,RN./RICHARD,neon electrician Administration FT Pre-Care Text: Verifies allergies, administers prescribed medications and solutions, administers prescribed antibiotic therapy and immunizing agents as ordered, evaluates response to medications Administers prescribed medications and solutions Entry 1 Expiration Date Yes Outcomes Met? Yes Verified Last Modified By: Francy Miller RN 03/30/18 07:37:26 Post-Care Text: The patient received appropriate medication(s) safely administered during the perioperative period For [facility] please see scanned medication reconcilliation form [...] 11:14 Addie Oreilly CST 03/30/18 11:37 Normal [facility] Main OR PACU I Recordon Main OR PACU I Record PACU Phase I Document Type FT Summary Primary Physician: Colin Shirley MD Finalized Date/Time: 03/30/18 11:29:28 Pt. Name: RJ COLBERT/Sex: 2000 Male Med Rec #: [id number] Physician: Colin Shirley MD Financial #: [id number] Pt. Type: O Room/Bed: / Admit/Disch: 03/30/18 [...] Guzman RN Document Signatures Signed By: Essie Guzmna RN 03/30/18 11:29 Normal [facility] Main OR Preoperative Recordo n 03-30-2018 Main OR Preoperative Record Holding Area Document Type FT Summary Primary Physician: Colin Shirley MD Finalized Date/Time: 03/30/18 10:16:59 Pt. Name: RJ COLBERT /Sex: 2000 Male Med Rec #: [id number] Physician: Colin Shirley MD Financial #: [id number] Pt. Type: O Room/Bed: / Admit/Disch: 03/30/18 [...] No Patient states Yes Comment - Adult [facility]- care provider postop adult Supervision supervision available Case Cancelled in No Holding Area see comments below for reason Last Modified By: Kathleen Gómez RN 03/30/18 09:54:58 General Comments: Pt completed prep at 0540 and remained NPO/JANET,RN Finalized By: Kathleen Gómez RN Document Signatures Signed By: Kathleen Gómez RN 03/30/18 10:16 Normal [facility] Patient Education - Texton 0 03-30-2018 Patient Education - Text [facility] Progress Note-Physicianon Progress Note-Physician Patient: RJ COLBERT [...] vomiting. Plan Transfer/ Discharge: Condition stable. 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 non-dr baker chef of alcohol (finding) [facility] Start: 03-18-2022 End: 03-28-2022 Exposure to SARS-CoV-2 (event) Not sure [facility] Start: 03-01-2015 End: 01-26-2024 Tobacco smoking status NHIS Never smoked tobacco [facility] Start: 03-01-2015 End: 01-26-2024 Tobacco use and exposure Smokeless tobacco non-user [facility] Start: 2000 Sex Assigned At Not on file [facility] Has the [employer], [employer], [employer], or [employer] threatened to shut off services in your home in past 12Mo No [facility] [employer] How often to you hav e a drink containing alcohol? Never [facility] [employer] [facility] How many standard drinks containing alcohol do you have on a typical day? Patient does not drink [facility] Vital Signs Date Time Vital Sign Value Performing Clinician Faci lity 01-26-2024 14: Body height 177.8 cm Reynold Kuo MD [facility] 01-26-2024 14:24-040 Body mass index (BMI) [Ratio] 25.75 kg/m2 Reynold Kuo MD [facility] 01-26-2024 14:24-040 Body weight 81.4 kg Reynold Kuo MD Work Phone: [facility] 03-28-2022 11:110400 Body height 180.3 cm Arnold Genao MD Work Phone: [facility] 03-28-2022 11:11-0400 Body weight 90.27 kg Arnold Genao MD Work Phone: [facility] 03-28-2022 11:11-0400 Diastolic blood pressure 65 mm[Hg] Arnold Genao MD Work Phone: [facility] 03-28-2022 11:11-0400 Heart rate 80 /min Arnold Genao MD Work Phone: [facility] 03-28-2022 11:11-0400 SaO2% (BldA) [Mass fraction] 100 % Arnold Genao MD Work Phone: [facility] 03-28-2022 11:11-0400 Systolic blood pressure 108 mm[Hg] Arnold Genao MD Work Phone: [facility] Clinical Notes 06-29-2021 to 01-26-2024 Reynold Kuo MD - 01/26/2024 3:15 PM EDTTelephone Encounter - Charley Mcclelland RN - 03/28/2022 4:13 PM EDTTelephone Encounter - Sara BAEZA - 03/28/2022 3:43 PM EDT Note Date & Type Note Facility 01-26-2024 History of Presen t illness Narrative Images from the original note were not included. [facility] [address] [place] [address] [phone] Patient: Rj Colbert Date of : 2000 Encounter Date: 01/26/2024 History of Present Illness: The patient is 23 y.o. male and presents for postoperative follow-up s/p repair of rectal prolapse. Patient presented with incarcerated prolapse. He underwent Altemeier procedure. Patient now follows up. Patient is accompanied by caustic pump operator. He is doing well. He denies any [...] Reynold Kuo MD documented in this encounter [facility] 03-28-2022 Miscellaneous Notes Spoke with the pharmacist and she states that she does not provide food items. She will speak with the nurse at the [place] [facility] [place]. [facility], [facility], phone , any pharmacist to clarify about carbonate? [place] [facility] [place] able to order as food item? Please call to discuss. documented in this encounter [facility] 03-28-2022 Miscellaneous Notes Opened in error documented in this encounter [facility] 03-28-2022 Miscellaneous Notes Addended by: ARNOLD GENAO on: 03/28/2022 03:11 PM Modules accepted: Orders Addended by: CHARLEY MCCLELLAND on: 03/28/2022 02:47 PM Modules accepted: Orders documented in this encounter [facility] 03-28-2022 Note HNO ID: [id number] Author: Arnold Genao MD Service: ? Author Type: Physician Type: Progress Notes Filed: 03/28/2022 11:58 AM Note Text: COLORECTAL SURGERY March 28, 2022 Rj Colbert 21 year old Chief Complaint: hematochezia History of Present Illness: Rj Colbert is a 21 year old male presents to the office for evaluation of hematochezia. Last seen in the office on 11/16/21 with Cristal [address] [employer]IATE JUSTICE for follow up visit after he underwent [...] exam Anorectal: External exam reveals: see below Montessori Teacher present: yes Assessment Assessment and Plan: Rj Colbert is a 21 year old male with straining and occasional rectal bleeding. Today, we talked about adding a magnesium supplement CALM to his regimen to decrease straining. I am of the opinion that more surgery is not the best option at this time. Arnold Genao MD Colorectal Surgery [facility] 03-28-2022 Nurse Note Calm education given for constipation. What is the reason for your visit today? Established patient presents for hematochezia. Who is your referring physician? Are you having poor oral intake? NO Have you had unintentional weight loss of 15 lbs/7 Kg in the last 3-6 months? NO Bowels: regular Wound: None Temperature: No Drains: No documented in this encounter [facility] 03-28-2022 History of Presen t illness Narrative [...] exam Anorectal: External exam reveals: see below Montessori Teacher present: yes Assessment Assessment and Plan: Rj Colbert is a 21 year old male with straining and occasional rectal bleeding. Today, we talked about adding a magnesium supplement CALM to his regimen to decrease straining. I am of the opinion that more surgery is not the best option at this time. Arnold Genao MD Colorectal Surgery documented in this encounter [facility] 11-16-2021 Note HNO ID: [id number] Author: Cristal Nava APRN.SENIOR SCHEDULER Service: ? Author Type: Nurse Practitioner Type: [...] results with patient and POA. Cristal Nava APRN.[facility] Colorectal Surgery [facility] 10-17-2021 Note HNO ID: [id number] Author: Hunter Massey APRN.CRNA Service: Anesthesiology Author Type: Nurse Blocker [employer] Forms Type: Anesthesia Procedure Notes Filed: 10/17/2021 8:55 AM Note Text: ANESTHESIOLOGY PROCEDURE NOTE Airway General Information Procedure Start Time/Medication Administration: 10/17/2021 8:49 AM Patient location during procedure: OR Timeout Performed Pre-procedure: timeout performed Consent Obtained: Yes Patient identity confirmed: arm band, care team supervisor and patient Staffing Anesthesiologist: Michael Martínez MD TECH INTERN: Hunter Massey APRN.TECH INTERN Performed by: SAMAN Indications and Patient Condition Preoxygenated: yes Patient position: sniffing Manual In-Line Stabilization: No Difficult Mask: No Indications for airway management: anesthesia anesthesia circuit Method: asleep Cricoid Pressure: No Final Airway Details Final airway type: supraglottic airway Number of attempts at approach: 1 Final Supraglottic Airway: i-gel Size 4 Seal Adequate: yes Airway not difficult SIGNATURE: Hunter Massey APRN.TECH INTERN PATIENT NAME: Rj Colbert DATE: October 17, 2021 TIME: 8:54 AM CSN: [id number] [facility] 08-31-2021 Note HNO ID: [id number] Author: Arnold Genao MD Service: ? Author [...] Anorectal: External exam reveals : see below Montessori Teacher present: yes Assessment Assessment and Plan: Rj Colbert is a 21 year old male who is doing relatively well after his recent rubber band ligation. He still has some rectal bleeding and it is difficult to assess the exact amount. If the bleeding persists we will consider internal hemorrhoidectomy. Arnold Genao MD Colorectal Surgery [facility] 07-12-2021 Note HNO ID: [id number] Author: Shanthi Chapman APRN.TECH INTERN Service: Anesthesiology Author Type: Nurse Blocker [employer]ated [employer] Forms Type: Anesthesia Procedure Notes Filed: 07/12/2021 10:54 AM Note Text: ANESTHESIOLOGY PROCEDURE NOTE Airway General Information Procedure Start Time/Medication Administration: 07/12/2021 10:48 AM Patient location during procedure: OR Patient identity confirmed: arm band, care team supervisor and patient Staffing TECH INTERN: Shanthi Chapman APRN.TECH INTERN Performed by: TECH INTERN Indications and Patient Condition Preoxygenated: yes Patient [...] no Airway not difficult SIGNATURE: Shanthi Chapman APRN.TECH INTERN PATIENT NAME: Rj Colbert DATE: July 12, 2021 TIME: 10:53 AM CSN: [id number] [facility] 06-29-2021 Note HNO ID: [id number] Author: Arnold Genao MD Service: ? 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 They relate that he is having around [...] (222 lb 4.8 oz) BMI 31.90 kg/m? Montessori Teacher present: Yes Rj Colbert is a 21 year old male presents with complaint of rectal bleeding with prolapsing Grade 3 internal hemorrhoids on exam. Our plan is to perform an EUA and rubber band ligation of internal hemorrhoids at the [facility]. Medical Decision Making: Arnold Genao MD Colorectal Surgery [facility] Evaluation note Diagnosis Hematochezia- Primary Blood in stool documented [facility] Diagnosis Rectal prolapse- Primary documented in this encounter [facility] SystemInstructionsNot on filedocumented in this encounter [facility] Summary Purpose Family History No Family History Records FoundNo Family History Records FoundNo Family History Records FoundNo Family History Records FoundNo Family History Records FoundNo Family History Records FoundNo Family History Records FoundNo Family History Records Found Advance Directives No Advanced Directives Records FoundDocuments on File Type Date Recorded Patient Psychologist Private Practice Expl anation Advance Directive(s) 07/09/2021 9:04 AM [...] Elio Ordonez [facility] DATE CREATED AUTHOR AUTHOR'S ORGANIZ ATION 10/31/2021 [facility] DATE CREATED AUTHOR AUTHOR'S ORGANIZ ATION 03/29/2022 [facility] DATE CREATED AUTHOR AUTHOR'S ORGANIZ ATION 04/04/2023 [facility] DATE CREATED AUTHOR AUTHOR'S ORGANIZ ATION 01/08/2024 [facility] EPIC DATE CREATED AUTHOR AUTHOR'S ORGANIZ ATION [facility] DATE CREATED AUTHOR AUTHOR'S ORGANIZ ATION 01/27/2024 [facility] DATE CREATED AUTHOR AUTHOR'S ORGANIZ ATION 04/09/2024 [facility] ysician Group Source Comments (unrecognize d section and content) In the event this informatio n is protected by the Federal Confidentiality of Alcohol and Drug Abuse Patient Records regulations: The Federal rules restrict any use of the information to criminally investigate or prosecute any alcohol or drug abuse patient.[facility] the event this information is protected by the Federal Confidentiality of Alcohol and Drug Abuse Patient Records regulations: The Federal rules restrict any use of the information to criminally investigate or prosecute any alcohol or drug abuse patient.[facility] Center[facility] the event this information is protected by the Federal Confidentiality of Alcohol and Drug Abuse Patient Records regulations: The Federal rules restrict any use of the information to criminally investigate or prosecute any alcohol or drug abuse patient.[facility] Reason for Visit (unrecogniz ed section and content) Reason Comments Established Patient Follow-Up Rectal Bleeding Reason Comments Opened In Error no documentation-err or Reason Comments Medication Problem magnesium carbonate? vs? CALM Reason Comments Post-op 2 week Care Teams (unrecognized sec tion and content) [employer] Project Planner Relationship Specialty Start Date End Date Benson Weiss MD [address] [place] [address] PCP - General Family Medicine 01/08/24 FOR [...] BE BASED ON THE PRIMARY CLINICAL RECORDS. [facility]. provides no warranty or guarantee of the accuracy or completeness of information in this document.
[2024-05-29 08:28] LABS: Basophils Percent Auto 0.5 % (0.2-2.0); Eosinophils Percent Auto 0.7 % (0.9-7.0); Hematocrit 38.2 % (42.0-54.0); Hemoglobin 9.9 g/dL (14.0-18.0); Immature Granulocytes Abs Auto 0.01 10^3/uL (0.00-0.03); Immature Granulocytes Pct Auto 0.2 % (0.0-0.5); Lymphocytes Absolute Auto 1.4 10^3/uL (1.2-3.8); Mean Corpuscular HGB Conc 25.9 g/dL (29.9-35.2); Mean Corpuscular Hemoglobin 16.4 pg (25.9-34.0); Mean Corpuscular Volume 63.3 fL (80.0-94.0); Mean Platelet Volume 8.9 fL (9.5-13.5); Monocytes Absolute Auto 0.9 10^3/uL (0.3-0.8); Monocytes Percent Auto 14.2 % (1.7-12.0); Neutrophils Absolute Auto 3.8 10^3/uL (1.4-6.5); Neutrophils Percent Auto 61.4 % (43.0-75.0); Platelet Count 263 10^3/uL (150-450); Red Blood Count 6.03 10^6/uL (4.70-6.10); White Blood Count 6.1 10^3/uL (4.0-11.0)
[2024-05-29 09:12] LABS: Red Cell Distribution Width 22.2 % (11.0-15.0)
== END 2024-05-29 08:08 | disposition home or self-care (01) ==
PROVIDERS: PCP Family Medicine
DX: F20.9 Schizophrenia, unspecified (principal)
CPT/HCPCS: 36415; 85025

== ENCOUNTER 2024-06-18 15:47 | Outpatient (RCR) | payer MEDICARE, MEDICAID, SELFPAY ==
[2024-06-18 16:01] LABS: Basophils Percent Auto 0.5 % (0.2-2.0); Eosinophils Percent Auto 0.2 % (0.9-7.0); Hematocrit 36.2 % (42.0-54.0); Hemoglobin 9.7 g/dL (14.0-18.0); Immature Granulocytes Abs Auto 0.01 10^3/uL (0.00-0.03); Immature Granulocytes Pct Auto 0.2 % (0.0-0.5); Lymphocytes Absolute Auto 1.6 10^3/uL (1.2-3.8); Lymphocytes Percent Auto 26.3 % (20.5-60.0); Mean Corpuscular HGB Conc 26.8 g/dL (29.9-35.2); Mean Corpuscular Hemoglobin 16.8 pg (25.9-34.0); Mean Corpuscular Volume 62.7 fL (80.0-94.0); Mean Platelet Volume 9.3 fL (9.5-13.5); Monocytes Absolute Auto 0.7 10^3/uL (0.3-0.8); Neutrophils Absolute Auto 3.6 10^3/uL (1.4-6.5); Neutrophils Percent Auto 60.8 % (43.0-75.0); Platelet Count 331 10^3/uL (150-450); Red Cell Distribution Width 22.5 % (11.0-15.0)
[2024-06-18 16:49] LABS: Red Blood Count 5.77 10^6/uL (4.70-6.10)
== END 2024-06-26 23:59 | disposition home or self-care (01) ==
LOC: LAB 15:47
PROVIDERS: PCP Family Medicine
DX: F20.9 Schizophrenia, unspecified (principal); Z79.899 Other long term (current) drug therapy
CPT/HCPCS: 36415; 85025

== ENCOUNTER 2024-07-23 16:29 | Outpatient (OUT) | payer MEDICARE, MEDICAID, SELFPAY ==
--- OUTSIDE RECORDS SUMMARY | 2024-07-23 16:43 | XMS_ITS | CCD ---
Author Organization [facility] Care Team Providers Care Transportation Economics Teacher Name Role Phone Salam, Shaw Unavailable Unavailable Salam, Shaw Unavailable Unavailable Salam, Shaw Unavailable Unavailable NADERERBENSON~[phone] UNKNOWN Unavailable Unavailable Salam, Shaw Unavailable Unavailable Salam, Shaw Unavailable Unavailable Salam, Shaw Unavailable Unavailable NADERER BENSON~[phone] UNKNOWN Unavailable Unavailable Unavailable Primary Care Provider Unavailabl e MISC, DR DOCTOR Attending Unavailable MISC, DOCTOR Admitting Unavailable MISC, DOCTOR Consulting Unavailable NADERER, DR OTRIZ A Primary Care Unavailable MISC, DR VALDOVINOS Consulting Unavailable MISC, DOCTOR Attending Unavailable NADERER, DR ORTIZ A Primary Care Unavailable MISC, DOCTOR Admitting Unavailable MISC, DOCTOR Attending Unavailable MISC, DOCTOR Admitting Unavailable MISC, DR VALDOVINOS Consulting Unavailable NADERER, DR BENSON Gregory Primary Care Unavailable MISC, DOCTOR Attending [...] Unavailable NADERER, DR BENSON Gregory Attending Unavailable NADERERoxana, DR BENSON Gregory Admitting Unavailable NADERER, DR BENSON Gregory Primary Care Unavailable MISC, DOCTOR Consulting Unavailable NADERERoxana, DR BENSON Gregory Attending Unavailable NADERER, DR BENSON Gregory Admitting Unavailable NADERER, DR BENSON Gregory Primary Care Unavailable MISC, DOCTOR Consulting Unavailable NADERER, DR BENSON Gregory Primary Care Unavailable MISC, DOCTOR Admitting Unavailable MISC, DOCTOR Attending Unavailable MISC, DOCTOR Attending Unavailable MISC, DOCTOR Admitting Unavailable MISC, DOCTOR Consulting Unavailable NADERERoxana, DR BENSON Gregory Primary Care Unavailable NADERERoxana, BENSON Primary Care Unavailable ZOË POOL Attending Unavailable Benson Weiss MD Primary Care Provider BENSON WEISS Primary Care Unavailable TABITHA MERINO Attending Unavailable PUSHPA SILVA Admitting Unavailable PAUL, JOHN DEL ROSARIO Attending Unavailable ISELA, BENSON Primary Care Unavailable REYNOLD KUO Attending Unavailable ISELA, BENSON Referring Unavailable ISELA, BENSON Primary Care Unavailable Jean Carlos Hdez Attending Unavailab Jean Carlos Powell Admitting Unavailab karen NO FAMILY, PHYSICIAN Primary Care Unavailable ISELA, BENSON Attending Unavailable NADERERoxana, BENSON Attending Unavailable Allergies Allergy Classification Reported Allergen(s) Allergy Type Date of Onset Reaction(s) Facility (1 source) No Known Medication Allergies; Translations: [No Known Medication Allergies] Propensity to adverse reactions (disorder) [facility] Repository Medications Current Medications Medication Drug [...] Start: 10-17-2021 take 2 tablets by mo ut every six hours acetaminophen (TYLENOL) 325 mg tablet Take 2 tablets by mouth every 6 hours. 0 10/17/2021 Active Comment on above: Take 2 tablets by mo [facility] every 6 hours. benztropine mesylate 2 [...] Active take 1 capsule by mouth once catyh ly FLUoxetine HCl (PROZAC) 40 mg capsule [...] Start: 10-17-2021 take 2 tablets by mo [facility] every four hours as needed ibuprofen (MOTRIN) 200 mg tablet Take 2 tablets by mouth every 4 hours as needed for pain. 0 10/17/2021 Active Comment on above: Take 2 tablets by mo [facility] every 4 hours as needed for [...] mouth nightly. 0 Active polyethylene glycol 3350 69366 mg powder for oral solution (4 sources) [...] Comment on above: [facility]. 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] Onset: 02-19-2023 Episodic Schizophrenia [...] Anion gap [Moles/Vol] 8 mmol/L Normal 5-15 [facility] Comment on above: Performed By: #### C ANDRES BRYANT, 95903-4 #### [facility] ([id number]) [address], [address] [place] [address] Calcium [Mass/Vol] 8.5 mg/dL Normal 8.5-10.5 [facility] Comment on above: Performed By: #### C MANNY BMP, 17608-8 #### [facility] ([id number]) [address], [address] [place] [address] Chloride [Moles/Vol] 106 mmol/L Normal 98-109 [facility] Comment on above: Performed By: #### C MANNY BMP, 90358-5 #### [facility] ([id number]) [address], [address] [place] [address] CO2 [Moles/Vol] 28 mmol/L Normal 22-32 [facility] Comment on above: Performed By: #### C ANDRES BRYANT, #### [facility] ([id number]) [address], [address] [place] [address] Creatinine [Mass/Vol] 0.93 mg/dL Normal 0.60-1.30 [facility] Comment on above: Result Comment: METH OD TRACEABLE TO IDMS STANDARD Performed By: #### C ANDRES BRYANT, #### [facility] ([id number]) [address], [address] [place] [address] eGFR (CKD-EPI) NON-RACE DEPENDENT >90 Normal >59 [facility] Comment on above: Result Comment: Reported eGFR is based on the CKD-EPI 2020 equation that does not use a race coefficient. Performed By: #### C ANDRES BRYANT, #### [facility] ([id number]) [address], [address] [place] [address] Glucose [Mass/Vol] 87 mg/dL Normal 65-99 [facility] Comment on above: Performed By: #### C ANDRES BRYANT, #### [facility] ([id number]) [address], [address] [place] [address] Potassium [Moles/Vol] 3.9 mmol/L Normal 3.5-5.0 [facility] Comment on above: Performed By: #### C ANDRES BRYANT, #### [facility] ([id number]) [address], [address] [place] [address] Sodium [Moles/Vol] 142 mmol/L Normal 134-146 [facility] Comment on above: Performed By: #### C ANDRES BRYANT, #### [facility] ([id number]) [address], [address] [place] [address] Urea nitrogen [Mass/Vol] 13 mg/dL Normal 5-23 [facility] Comment on above: Performed By: #### C ANDRES BRYANT, #### [facility] ([id number]) [address], [address] [place] [address] CBC AND AUTO DIFFon 01-10-20 24 ABSOLUTE BASOPHIL 0.0 X10E9/L Normal 0.0-0.2 [facility] Comment on above: Performed By: #### ANDRES Briggs BCA, #### [facility] ([id number]) [address], [facility] [address] [place] [address] ABSOLUTE NEUTROPHIL 7.9 X10E9/L High 1.5-6.6 [facility] Comment on above: Performed By: #### ANDRES Briggs BCA, #### [facility] ([id number]) [address], [address] [place] [address] Basophils/100 WBC (Bld) 0.2 % Normal [facility] Comment on above: Performed By: #### ANDRES Briggs BCA, #### [facility] ([id number]) [address], [address] [place] [address] Eosinophils (Bld) [#/Vol] 0.0 10*3/uL Normal 0.0-0.4 [facility] Comment on above: Performed By: #### ANDRES Briggs BCA, #### [facility] ([id number]) [address], [address] [place] [address] Eosinophils/100 WBC (Bld) 0.2 % Normal [facility] Comment on above: Performed By: #### ANDRES Briggs BCA, #### [facility] ([id number]) [address], [address] [place] [address] Erythrocyte distribution width (RBC) [Ratio] 20.7 % High 11.5-15.0 [facility] Comment on above: Performed By: #### ANDRES Briggs BCA, #### [facility] ([id number]) [address], [address] [place] [address] FRAGMENT 1+ Abnormal NONE [facility] Comment on above: Performed By: #### ANDRES Briggs BCA, #### [facility] ([id number]) [address], [address] [place] [address] Hematocrit (Bld) [Volume fraction] 30.0 % Low 39-49 [facility] Comment on above: Performed By: #### ANDRES Briggs BCA, #### [facility] ([id number]) [address], [address] [place] [address] Hemoglobin (Bld) [Mass/Vol] 8.7 g/dL Low 13.0-17.0 [facility] Comment on above: Performed By: #### ANDRES Briggs BCA, #### [facility] ([id number]) [address], [address] [place] [address] HYPOCHROMIA 2+ Abnormal NONE [facility] Comment on above: Performed By: #### ANDRES Briggs BCA, #### [facility] ([id number]) [address], [address] [place] [address] Lymphocytes (Bld) [#/Vol] 2.6 10*3/uL Normal 1.0-3.5 [facility] Comment on above: Performed By: #### ANDRES Briggs BCA, #### [facility] ([id number]) [address], [address] [place] [address] Lymphocytes/100 WBC (Bld) 22.1 % Normal [facility] Comment on above: Performed By: #### ANDRES Briggs BCA, #### [facility] ([id number]) [address], [address] [place] [address] MCH (RBC) [Entitic mass] 16.7 pg Low 27-34 [facility] Comment on above: Performed By: #### C MANNY, BMP, #### [facility] ([id number]) [address], [address] [place] [address] MCHC (RBC) [Mass/Vol] 29.1 g/dL Low 32-36 [facility] Comment on above: Performed By: #### Brigitte BRYANT, BMP, #### [facility] ([id number]) [address], [address] [place] [address] MCV (RBC) [Entitic vol] 58 fL Low 80-100 [facility] Comment on above: Performed By: #### Brigitte BRYANT BMP, #### [facility] ([id number]) [address], [address] [place] [address] Monocytes (Bld) [#/Vol] 1.3 10*3/uL High 0-0.9 [facility] Comment on above: Performed By: #### Brigitte BRYANT BMP, #### [facility] ([id number]) [address], [address] [place] [address] Monocytes/100 WBC (Bld) 11.2 % Normal [facility] Comment on above: Performed By: #### Brigitte BRYANT, BMP, #### [facility] ([id number]) [address], [address] [place] [address] Neutrophils/100 WBC (Bld) 66.3 % Normal [facility] Comment on above: Performed By: #### Brigitte BRYANT, BMP, #### [facility] ([id number]) [address], [address] [place] [address] OVALOCYTE 2+ Abnormal NONE [facility] Comment on above: Performed By: #### ANDRES Briggs BCA, #### [facility] ([id number]) [address], [address] [place] [address] Platelet mean volume (Bld) [Entitic vol] 8.7 fL Normal 7-12 [facility] Comment on above: Performed By: #### ANDRES Briggs BCA, #### [facility] ([id number]) [address], [address] [place] [address] Platelets (Bld) [#/Vol] 326 10*3/uL Normal 150-450 [facility] Comment on above: Performed By: #### ANDRES Briggs BCA, #### [facility] ([id number]) [address], [address] [place] [address] RBC COUNT 5.21 X10E12/L Normal 4.10-5.70 [facility] Comment on above: Performed By: #### ANDRES Briggs BCA, #### [facility] ([id number]) [address], [address] [place] [address] WBC (Bld) [#/Vol] 11.9 10*3/uL High 4.0-11.0 [facility] Comment on above: Performed By: #### ANDRES Briggs BCA, #### [facility] ([id number]) [address], [address] [place] [address] MAGNESIUMon 01-10-2024 Magnesium [Mass/Vol] 2.0 mg/dL Normal 1.8-2.6 [facility] Comment on above: Performed By: #### ANDRES Briggs BCA, #### [facility] ([id number]) [address], [address] [place] [address] BASIC METABOLIC PANLon 01-08 Anion gap [Moles/Vol] 9 mmol/L Normal 5-15 [facility] Comment on above: Performed By: #### C ANDRES BRYANT, #### [facility] ([id number]) [address], [address] [place] [address] Calcium [Mass/Vol] 8.8 mg/dL Normal 8.5-10.5 [facility] Comment on above: Performed By: #### C MANNY BMP, #### [facility] ([id number]) [address], [address] [place] [address] Chloride [Moles/Vol] 107 mmol/L Normal 98-109 [facility] Comment on above: Performed By: #### C MANNY BMP, #### [facility] ([id number]) [address], [address] [place] [address] CO2 [Moles/Vol] 25 mmol/L Normal 22-32 [facility] Comment on above: Performed By: #### C MANNY BMP, #### [facility] ([id number]) [address], [address] [place] [address] Creatinine [Mass/Vol] 0.96 mg/dL Normal 0.60-1.30 [facility] Comment on above: Result Comment: METH OD TRACEABLE TO IDMS STANDARD Performed By: #### C MANNY BMP, #### [facility] ([id number]) [address], [address] [place] [address] eGFR (CKD-EPI) NON-RACE DEPENDENT >90 Normal >59 [facility] Comment on above: Result Comment: Reported eGFR is based on the CKD-EPI 2020 equation that does not use a race coefficient. Performed By: #### C MANNY, BMP, #### [facility] ([id number]) [address], [address] [place] [address] Glucose [Mass/Vol] 117 mg/dL High 65-99 [facility] Comment on above: Performed By: #### ANDRES Briggs BCA, #### [facility] ([id number]) [address], [address] [place] [address] Potassium [Moles/Vol] 4.5 mmol/L Normal 3.5-5.0 [facility] Comment on above: Performed By: #### ANDRES Briggs BCA, #### [facility] ([id number]) [address], [facility] [address] [place] [address] Sodium [Moles/Vol] 141 mmol/L Normal 134-146 [facility] Comment on above: Performed By: #### ANDRES Briggs BCA, #### [facility] ([id number]) [address], [facility] [address] [place] [address] Urea nitrogen [Mass/Vol] 19 mg/dL Normal 5-23 [facility] Comment on above: Performed By: #### ANDRES Briggs BCA, #### [facility] ([id number]) [address], [facility] [address] [place] [address] CBC AND AUTO DIFFon 15-20 24 ACANTHOCYTE 2+ Abnormal NONE [facility] Comment on above: Performed By: #### ANDRES Briggs BCA, #### [facility] ([id number]) [address], [facility] [address] [place] [address] Erythrocyte distribution width (RBC) [Ratio] 21.0 % High 11.5-15.0 [facility] Comment on above: Performed By: #### ANDRES Briggs BCA, #### [facility] ([id number]) [address], [facility] [address] [place] [address] FRAGMENT 1+ Abnormal NONE [facility] Comment on above: Performed By: #### ANDRES Briggs BCA, #### [facility] ([id number]) [address], [address] [place] [address] Hematocrit (Bld) [Volume fraction] 32.9 % Low 39-49 [facility] Comment on above: Performed By: #### C ANDRES BRYANT, #### [facility] ([id number]) [address], [address] [place] [address] Hemoglobin (Bld) [Mass/Vol] 9.4 g/dL Low 13.0-17.0 [facility] Comment on above: Performed By: #### ANDRES Briggs BCA, #### [facility] ([id number]) [address], [address] [place] [address] HYPOCHROMIA 2+ Abnormal NONE [facility] Comment on above: Performed By: #### ANDRES Briggs BCA, #### [facility] ([id number]) [address], [address] [place] [address] Lymphocytes (Bld) [#/Vol] 0.6 10*3/uL Low 1.0-3.5 [facility] Comment on above: Performed By: #### ANDRES Briggs BCA, #### [facility] ([id number]) [address], [address] [place] [address] Lymphocytes/100 WBC (Bld) 4.0 % Normal [facility] Comment on above: Performed By: #### ANDRES Briggs BCA, #### [facility] ([id number]) [address], [address] [place] [address] MCH (RBC) [Entitic mass] 16.4 pg Low 27-34 [facility] Comment on above: Performed By: #### Brigitte BRYANT BMP, #### [facility] ([id number]) [address], [address] [place] [address] MCHC (RBC) [Mass/Vol] 28.6 g/dL Low 32-36 [facility] Comment on above: Performed By: #### ANDRES Briggs BCA, #### [facility] ([id number]) [address], [address] [place] [address] MCV (RBC) [Entitic vol] 57 fL Low 80-100 [facility] Comment on above: Performed By: #### ANDRES Briggs BCA, #### [facility] ([id number]) [address], [address] [place] [address] Monocytes (Bld) [#/Vol] 0.5 10*3/uL Normal 0-0.9 [facility] Comment on above: Performed By: #### ANDRES Briggs BCA, #### [facility] ([id number]) [address], [address] [place] [address] Monocytes/100 WBC (Bld) 3.0 % Normal [facility] Comment on above: Performed By: #### ANDRES Briggs BCA, #### [facility] ([id number]) [address], [address] [place] [address] Neutrophils (Bld) [#/Vol] 14.5 10*3/uL High 1.5-6.6 [facility] Comment on above: Performed By: #### ANDRES Briggs BCA, #### [facility] ([id number]) [address], [address] [place] [address] OVALOCYTE 2+ Abnormal NONE [facility] Comment on above: Performed By: #### ANDRES Briggs BCA, #### [facility] ([id number]) [address], [address] [place] [address] Platelet mean volume (Bld) [Entitic vol] 8.7 fL Normal 7-12 [facility] Comment on above: Performed By: #### Brigitte BRYANT, BMP, #### [facility] ([id number]) [address], [address] [place] [address] Platelets (Bld) [#/Vol] 347 10*3/uL Normal 150-450 [facility] Comment on above: Performed By: #### Brigitte BRYANT, BMP, #### [facility] ([id number]) [address], [address] [place] [address] POLYCHROMASIA 1+ Abnormal NONE [facility] Comment on above: Performed By: #### Brigitte BRYANT, BMP, #### [facility] ([id number]) [address], [address] [place] [address] RBC COUNT 5.76 X10E12/L High 4.10-5.70 [facility] Comment on above: Performed By: #### Brigitte BRYANT, BMP, #### [facility] ([id number]) [address], [address] [place] [address] SEG NEUTROPHIL 93.0 % Normal [facility] Comment on above: Performed By: #### Brigitte BRYANT, BMP, #### [facility] ([id number]) [address], [address] [place] [address] TEARDROP 1+ Abnormal NONE [facility] Comment on above: Performed By: #### Brigitte BRYANT, BMP, #### [facility] ([id number]) [address], [address] [place] [address] WBC (Bld) [#/Vol] 15.6 10*3/uL High 4.0-11.0 [facility] Comment on above: Performed By: #### Brigitte BRYANT, BMP, #### [facility] ([id number]) [address] [place] [address] MAGNESIUMon 01-09-2024 Magnesium [Mass/Vol] 2.0 mg/dL Normal 1.8-2.6 [facility] Comment on above: Performed By: #### C BCA, [facility], [address]-3 #### [facility] ([id number]) [address] [place] [address] Surgical Pathologyon 024 Surgical Pathology Normal [facility] Comment on above: Result Comment: [facility] [address] [place] [id number] Surgical Pathology Consultation Patient Name:SASCHA COLBERTMDOB:2000 (Age: 23)Gender:MTaken:01/09/2024eported:01/13/2024hysician(s):Pushpa Silva MD ([phone])Copy To: Rec. #:[id number]: #[id number] Final Pathologic Diagnosis Rectosigmoidectomy: Mucosal ischemic change with superficial mucosal necrosis, acute inflammation, hyalinization of lamina propria and atrophic crypts. Strands of smooth muscle extending into lamina propria with surface erosion compatible with prolapse changes. No malignancy identified. Report Electronically Signed [facility]/01/13/2024Suangelita Cortez M.D. [place] [address], License number: [id number]. Clinical History Rectal prolapse, ischemic rectum. Gross [...] sections of proximal margin G edematous wall (7,ss,[id number], m1) . /01/09/2024 Specimen(s) Received Rectum and sigmoid Fee Codes(s): 1; 18817 CBC AND AUTO DIFFon 01-08-20 24 ABSOLUTE BASOPHIL 0.1 X10E9/L Normal 0.0-0.2 [facility] Comment on above: Performed By: #### P INR, 63852-7, CMP, CBCA #### [facility] ([id number]) [address] [place] [address] ABSOLUTE NEUTROPHIL 14.8 X10E9/L High 1.5-6.6 [facility] Comment on above: Performed By: #### P INR, 21832-6, CMP, CBCA #### [facility] ([id number]) [address] [place] [address] Basophils/100 WBC (Bld) 0.3 % Normal [facility] Comment on above: Performed By: #### P INR, 30694-3, CMP, CBCA #### [facility] ([id number]) [address] [place] [address] Eosinophils (Bld) [#/Vol] 0.0 10*3/uL Normal 0.0-0.4 [facility] Comment on above: Performed By: #### P INR, 61232-7, CMP, CBCA #### [facility] ([id number]) [address] [place] [address] Eosinophils/100 WBC (Bld) 0.0 % Normal [facility] Comment on above: Performed By: #### P INR, 27458-5, CMP, CBCA #### [facility] ([id number]) [address] [place] [address] Erythrocyte distribution width (RBC) [Ratio] 20.9 % High 11.5-15.0 [facility] Comment on above: Performed By: #### P INR, 27128-6, CMP, CBCA #### [facility] ([id number]) [address] [place] [address] Hematocrit (Bld) [Volume fraction] 33.4 % Low 39-49 [facility] Comment on above: Performed By: #### P INR, 40725-6, CMP, CBCA #### [facility] ([id number]) [address] [place] [address] Hemoglobin (Bld) [Mass/Vol] 9.5 g/dL Low 13.0-17.0 [facility] Comment on above: Performed By: #### P INR, 50135-1, CMP, CBCA #### [facility] ([id number]) [address] [place] [address] Lymphocytes (Bld) [#/Vol] 0.4 10*3/uL Low 1.0-3.5 [facility] Comment on above: Performed By: #### P INR, 74430-9, CMP, CBCA #### [facility] ([id number]) [address] [place] [address] 58324 Lymphocytes/100 WBC (Bld) 2.6 % Normal [facility] Comment on above: Performed By: #### P INR, 83765-8, CMP, CBCA #### [facility] ([id number]) [address] [place] [address] 57304 MCH (RBC) [Entitic mass] 16.4 pg Low 27-34 [facility] Comment on above: Performed By: #### P INR, 38206-6, CMP, CBCA #### [facility] ([id number]) [address] [place] [address] 97759 MCHC (RBC) [Mass/Vol] 28.6 g/dL Low 32-36 [facility] Comment on above: Performed By: #### P INR, 67146-7, CMP, CBCA #### [facility] ([id number]) [address] [place] [address] 31955 MCV (RBC) [Entitic vol] 58 fL Low 80-100 [facility] Comment on above: Performed By: #### P INR, 00158-9, CMP, CBCA #### [facility] ([id number]) [address] [place] [address] 80937 Monocytes (Bld) [#/Vol] 1.4 10*3/uL High 0-0.9 [facility] Comment on above: Performed By: #### P INR, 31970-0, CMP, CBCA #### [facility] ([id number]) [address] [place] [address] 17545 Monocytes/100 WBC (Bld) 8.5 % Normal [facility] Comment on above: Performed By: #### P INR, 85085-1, CMP, CBCA #### [facility] ([id number]) [address] [place] [address] 36749 Neutrophils/100 WBC (Bld) 88.6 % Normal [facility] Comment on above: Performed By: #### P INR, 77517-7, CMP, CBCA #### [facility] ([id number]) [address] [place] [address] 57284 Platelet mean volume (Bld) [Entitic vol] 8.7 fL Normal 7-12 [facility] Comment on above: Performed By: #### P INR, 48838-5, CMP, CBCA #### [facility] ([id number]) [address] [place] [address] 33822 Platelets (Bld) [#/Vol] 366 10*3/uL Normal 150-450 [facility] Comment on above: Performed By: #### P INR, 90304-9, CMP, CBCA #### [facility] ([id number]) [address] [place] [address] 93822 RBC COUNT 5.81 X10E12/L High 4.10-5.70 [facility] Comment on above: Performed By: #### P INR, 16801-0, CMP, CBCA #### [facility] ([id number]) [address] [place] [address] 98014 WBC (Bld) [#/Vol] 16.7 10*3/uL High 4.0-11.0 [facility] Comment on above: Performed By: #### P INR, 36401-2, CMP, CBCA #### [facility] ([id number]) [address] [place] [address] 57109 COMPREHENSIVE METABOLIC PANE [place] 01-08-2024 Albumin [Mass/Vol] 4.3 g/dL Normal 3.2-5.3 [facility] Comment on above: Performed By: #### P INR, 79961-5, CMP, CBCA #### [facility] ([id number]) [address] [place] [address] 57521 ALP [Catalytic activity/Vol] 67 U/L Normal 39-130 [facility] Comment on above: Performed By: #### P INR, 45745-5, CMP, CBCA #### [facility] ([id number]) [address] [place] [address] 95475 ALT [Catalytic activity/Vol] 19 U/L Normal 0-40 [facility] Comment on above: Performed By: #### P INR, 62832-8, CMP, CBCA #### [facility] ([id number]) [address] [place] [address] 84747 Anion gap [Moles/Vol] 6 mmol/L Normal 5-15 [facility] Comment on above: Performed By: #### P INR, 10825-3, CMP, CBCA #### [facility] ([id number]) [address] [place] [address] 14837 AST [Catalytic activity/Vol] 26 U/L Normal 0-41 [facility] Comment on above: Performed By: #### P INR, 09106-8, CMP, CBCA #### [facility] ([id number]) [address] [place] [address] 46340 Bilirubin [Mass/Vol] 0.5 mg/dL Normal 0.3-1.2 [facility] Comment on above: Performed By: #### P INR, 55436-3, CMP, CBCA #### [facility] ([id number]) [address] [place] [address] 63916 Calcium [Mass/Vol] 8.8 mg/dL Normal 8.5-10.5 [facility] Comment on above: Performed By: #### P INR, 98584-8, CMP, CBCA #### [facility] ([id number]) [address] [place] [address] 58479 Chloride [Moles/Vol] 102 mmol/L Normal 98-109 [facility] Comment on above: Performed By: #### P INR, 24034-8, CMP, CBCA #### [facility] ([id number]) [address] [place] [address] 67864 CO2 [Moles/Vol] 23 mmol/L Normal 22-32 [facility] Comment on above: Performed By: #### P INR, 18511-9, CMP, CBCA #### [facility] ([id number]) [address] [place] [address] 51603 Creatinine [Mass/Vol] 1.03 mg/dL Normal 0.70-1.20 [facility] Comment on above: Result Comment: METH OD TRACEABLE TO IDMS STANDARD Performed By: #### P INR, 82644-9, CMP, CBCA #### [facility] ([id number]) [address] [place] [address] 12751 eGFR (CKD-EPI) NON-RACE DEPENDENT >90 Normal >59 [facility] Comment on above: Result Comment: Reported eGFR is based on the CKD-EPI 2020 equation that does not use a race coefficient. Performed By: #### P INR, 33344-6, CMP, CBCA #### [facility] ([id number]) [address] [place] [address] 95552 Glucose [Mass/Vol] 114 mg/dL High 65-99 [facility] Comment on above: Performed By: #### P INR, 39170-5, CMP, CBCA #### [facility] ([id number]) [address] [place] [address] 42619 Potassium [Moles/Vol] 4.0 mmol/L Normal 3.5-5.0 [facility] Comment on above: Performed By: #### P INR, 68274-7, CMP, CBCA #### [facility] ([id number]) [address] [place] [address] 03981 Protein [Mass/Vol] 6.9 g/dL Normal 6.0-8.0 [facility] Comment on above: Performed By: #### P INR, 98502-2, CMP, CBCA #### [facility] ([id number]) [address] [place] [address] 82516 Sodium [Moles/Vol] 131 mmol/L Low 134-146 [facility] Comment on above: Performed By: #### P INR, 47384-6, CMP, CBCA #### [facility] ([id number]) [address] [place] [address] 65614 Urea nitrogen [Mass/Vol] 17 mg/dL Normal 5-23 [facility] Comment on above: Performed By: #### P INR, 03243-5, CMP, CBCA #### [facility] ([id number]) [address] [place] [address] 04688 PROTIME AND INRon 01-08-2024 INR Coag (PPP) [Relative time] 1.0 {INR} Normal 0.8-1.1 [facility] Comment on above: Performed By: #### P INR, 61067-4, CMP, CBCA #### [facility] ([id number]) [address] [place] [address] 41609 PT Coag (PPP) [Time] 12.0 s Normal 9.8-13.2 [facility] Comment on above: Result Comment: NEW REFERENCE RANGE Performed By: #### P INR, 56041-0, CMP, CBCA #### [facility] ([id number]) [address] [place] [address] 75727 aPTT Coag (PPP) [Time]on aPTT Coag (Bld) [Time] 37 s Normal 26-37 [facility] Comment on above: Result Comment: NEW REFERENCE RANGE Performed By: #### P INR, 32409-9, CMP, CBCA #### [facility] ([id number]) [address] [place] [address] 12479 CBC AUTO DIFFon 03-26-2023 BASO # 0.0 103/ul Normal 0.0-0.1 [facility] Comment on above: Performed By: #### C BC #### [facility] [address] [address] [address] Sonido Bejarano Basophils/100 WBC (Bld) 0.7 % Normal 0.2-2.0 [facility] Comment on above: Performed By: #### C BC #### [facility] [address] [place] [address] Dr. Sonido Bejarano EO # 0.1 103/ul Normal 0.0-0.7 [facility] Comment on above: Performed By: #### C BC #### [facility] [address] [place] [address] Dr. Sonido Bejarano Eosinophils/100 WBC (Bld) 1.0 % Normal 0.9-7.0 [facility] Comment on above: Performed By: #### C BC #### [facility] [address] [place] [address] Dr. Sonido Bejarano Erythrocyte distribution width (RBC) [Ratio] 22.3 % Critically high 11.0-15.0 [facility] Comment on above: Performed By: #### C BC #### [facility] [address] [place] [address] Dr. Sonido Bejarano Hematocrit (Bld) [Volume fraction] 32.0 % Critically low 42.0-54.0 [facility] Comment on above: Performed By: #### C BC #### [facility] [address] [place] [address] Dr. Sonido Bejarano Hemoglobin (Bld) [Mass/Vol] 8.3 g/dL Critically low 14.0-18.0 [facility] Comment on above: Performed By: #### C BC #### [facility] [address] [place] [address] Dr. Sonido Bejarano IG # 0.01 10e3/ul Normal 0.00-0.03 [facility] Comment on above: Performed By: #### C BC #### [facility] [address] [place] [address] Dr. Sonido Bejarano IG % 0.2 % Normal 0.0-0.5 [facility] Comment on above: Performed By: #### C BC #### [facility] [address] [place] [address] Dr. Sonido Bejarano LYMPH # 1.2 103/ul Normal 1.2-3.8 [facility] Comment on above: Performed By: #### C BC #### [facility] [address] [place] [address] Dr. Sonido Bejarano Lymphocytes/100 WBC (Bld) 20.1 % Critically low 20.5-60.0 [facility] Comment on above: Performed By: #### C BC #### [facility] [address] [place] [address] Dr. Sonido Bejarano MANUAL DIFF REQ NO Normal [facility] Comment on above: Performed By: #### C BC #### [facility] [address] [place] [address] Dr. Sonido Bejarano MCH (RBC) [Entitic mass] 15.7 pg Critically low 25.9-34.0 [facility] Comment on above: Performed By: #### C BC #### [facility] [address] [place] [address] Dr. Sonido Bejarano MCHC (RBC) [Mass/Vol] 25.9 g/dL Critically low 29.9-35.2 [facility] Comment on above: Performed By: #### C BC #### [facility] [address] [place] [address] Dr. Sonido Bejarano MCV (RBC) [Entitic vol] 60.6 fL Critically low 80.0-94.0 [facility] Comment on above: Performed By: #### C BC #### [facility] [address] [place] [address] Dr. Sonido Bejarano MONO # 0.7 103/ul Normal 0.3-0.8 [facility] Comment on above: Performed By: #### C BC #### [facility] [address] [place] [address] Dr. Sonido Bejarano Monocytes/100 WBC (Bld) 12.2 % Critically high 1.7-12.0 [facility] Comment on above: Performed By: #### C BC #### [facility] [address] [place] [address] Dr. Sonido Bejarano NEUT # 3.8 103/ul Normal 1.4-6.5 [facility] Comment on above: Performed By: #### C BC #### [facility] [address] [place] [address] Dr. Sonido Bejarano Neutrophils/100 WBC (Bld) 65.8 % Normal 43.0-75.0 [facility] Comment on above: Performed By: #### C BC #### [facility] [address] [place] [address] Dr. Sonido Bejarano Platelet mean volume (Bld) [Entitic vol] 9.2 fL Critically low 9.5-13.5 [facility] Comment on above: Performed By: #### C BC #### [facility] [address] [place] [address] Dr. Sonido Bejarano PLT 369 103/ul Normal 150-450 [facility] Comment on above: Performed By: #### C BC #### [facility] [address] [place] [address] Dr. Sonido Bejarano RBC 5.28 106/ul Normal 4.70-6.10 [facility] Comment on above: Performed By: #### C BC #### [facility] [address] [place] [address] Dr. Sonido Bejarano WBC 5.8 103/ul Normal 4.0-11.0 [facility] Comment on above: Performed By: #### C BC #### [facility] [address] [place] [address] Dr. Sonido Bejarano CBC AUTO DIFFon 02-19-2023 BASO # 0.0 103/ul Normal 0.0-0.1 [facility] Comment on above: Performed By: #### C BC #### [facility] [address] [place] [address] Dr. Sonido Bejarano Basophils/100 WBC (Bld) 0.7 % Normal 0.2-2.0 [facility] Comment on above: Performed By: #### C BC #### [facility] [address] [place] [address] Dr. Sonido Bejarano EO # 0.1 103/ul Normal 0.0-0.7 [facility] Comment on above: Performed By: #### C BC #### [facility] [address] [place] [address] Dr. Sonido Bejarano Eosinophils/100 WBC (Bld) 1.1 % Normal 0.9-7.0 [facility] Comment on above: Performed By: #### C BC #### [facility] [address] [place] [address] Dr. Sonido Bejarano Erythrocyte distribution width (RBC) [Ratio] 22.7 % Critically high 11.0-15.0 [facility] Comment on above: Performed By: #### C BC #### [facility] [address] [place] [address] Dr. Sonido Bejarano Hematocrit (Bld) [Volume fraction] 32.9 % Critically low 42.0-54.0 [facility] Comment on above: Performed By: #### C BC #### [facility] [address] [place] [address] Dr. Sonido Bejarano Hemoglobin (Bld) [Mass/Vol] 8.2 g/dL Critically low 14.0-18.0 [facility] Comment on above: Performed By: #### C BC #### [facility] [address] [place] [address] Dr. Sonido Bejarano IG # 0.02 10e3/ul Normal 0.00-0.03 [facility] Comment on above: Performed By: #### C BC #### [facility] [address] [place] [address] Dr. Sonido Bejarano IG % 0.3 % Normal 0.0-0.5 [facility] Comment on above: Performed By: #### C BC #### [facility] [address] [place] [address] Dr. Sonido Bejarano LYMPH # 1.4 103/ul Normal 1.2-3.8 [facility] Comment on above: Performed By: #### C BC #### [facility] [address] [place] [address] Dr. Sonido Bejarano Lymphocytes/100 WBC (Bld) 22.8 % Normal 20.5-60.0 [facility] Comment on above: Performed By: #### C BC #### [facility] [address] [place] [address] Dr. Sonido Bejarano MANUAL DIFF REQ NO Normal [facility] Comment on above: Performed By: #### C BC #### [facility] [address] [place] [address] Dr. Sonido Bejarano MCH (RBC) [Entitic mass] 15.3 pg Critically low 25.9-34.0 [facility] Comment on above: Performed By: #### C BC #### [facility] [address] [place] [address] Dr. Sonido Bejarano MCHC (RBC) [Mass/Vol] 24.9 g/dL Critically low 29.9-35.2 [facility] Comment on above: Performed By: #### C BC #### [facility] [address] [place] [address] Dr. Sonido Bejarano MCV (RBC) [Entitic vol] 61.3 fL Critically low 80.0-94.0 [facility] Comment on above: Performed By: #### C BC #### [facility] [address] [place] [address] Dr. Sonido Bejarano MONO # 0.7 103/ul Normal 0.3-0.8 [facility] Comment on above: Performed By: #### C BC #### [facility] [address] [place] [address] Dr. Sonido Bejarano Monocytes/100 WBC (Bld) 11.6 % Normal 1.7-12.0 [facility] Comment on above: Performed By: #### C BC #### [facility] [address] [place] [address] Dr. Sonido Bejarano NEUT # 3.9 103/ul Normal 1.4-6.5 [facility] Comment on above: Performed By: #### C BC #### [facility] [address] [place] [address] Dr. Sonido Bejarano Neutrophils/100 WBC (Bld) 63.5 % Normal 43.0-75.0 [facility] Comment on above: Performed By: #### C BC #### [facility] [address] [place] [address] Dr. Sonido Bejarano Platelet mean volume (Bld) [Entitic vol] 9.3 fL Critically low 9.5-13.5 [facility] Comment on above: Performed By: #### C BC #### [facility] [address] [place] [address] Dr. Sonido Bejarano PLT 394 103/ul Normal 150-450 [facility] Comment on above: Performed By: #### C BC #### [facility] [address] [place] [address] Dr. Sonido Bejarano RBC 5.37 106/ul Normal 4.70-6.10 [facility] Comment on above: Performed By: #### C BC #### [facility] [address] [place] [address] Dr. Sonido Bejarano WBC 6.1 103/ul Normal 4.0-11.0 [facility] Comment on above: Performed By: #### C BC #### [facility] [address] [place] [address] Dr. Sonido Bejarano CBC AUTO DIFFon 01-15-2023 BASO # 0.0 103/ul Normal 0.0-0.1 [facility] Comment on above: Performed By: #### C BC #### [facility] [address] [place] [address] Dr. Sonido Bejarano Basophils/100 WBC (Bld) 0.3 % Normal 0.2-2.0 [facility] Comment on above: Performed By: #### C BC #### [facility] [address] [place] [address] Dr. Sonido Bejarano EO # 0.0 103/ul Normal 0.0-0.7 [facility] Comment on above: Performed By: #### C BC #### [facility] [address] [place] [address] Dr. Sonido Bejarano Eosinophils/100 WBC (Bld) 0.4 % Critically low 0.9-7.0 [facility] Comment on above: Performed By: #### C BC #### [facility] [address] [place] [address] Dr. Sonido Bejarano Erythrocyte distribution width (RBC) [Ratio] 22.4 % Critically high 11.0-15.0 [facility] Comment on above: Performed By: #### C BC #### [facility] [address] [place] [address] Dr. Sonido Bejarano Hematocrit (Bld) [Volume fraction] 31.5 % Critically low 42.0-54.0 [facility] Comment on above: Performed By: #### C BC #### [facility] [address] [place] [address] Dr. Sonido Bejarano Hemoglobin (Bld) [Mass/Vol] 8.1 g/dL Critically low 14.0-18.0 [facility] Comment on above: Performed By: #### C BC #### [facility] [address] [place] [address] Dr. Sonido Bejarano IG # 0.02 10e3/ul Normal 0.00-0.03 [facility] Comment on above: Performed By: #### C BC #### [facility] [address] [place] [address] Dr. Sonido Bejarano IG % 0.3 % Normal 0.0-0.5 [facility] Comment on above: Performed By: #### C BC #### [facility] [address] [place] [address] Dr. Sonido Bejarano LYMPH # 1.3 103/ul Normal 1.2-3.8 [facility] Comment on above: Performed By: #### C BC #### [facility] [address] [place] [address] Dr. Sonido Bejarano Lymphocytes/100 WBC (Bld) 19.4 % Critically low 20.5-60.0 [facility] Comment on above: Performed By: #### C BC #### [facility] [address] [place] [address] Dr. Sonido Bejarano MANUAL DIFF REQ NO Normal [facility] Comment on above: Performed By: #### C BC #### [facility] [address] [place] [address] Dr. Sonido Bejarano MCH (RBC) [Entitic mass] 15.5 pg Critically low 25.9-34.0 [facility] Comment on above: Performed By: #### C BC #### [facility] [address] [address] [address] Sonido Bejarano MCHC (RBC) [Mass/Vol] 25.7 g/dL Critically low 29.9-35.2 [facility] Comment on above: Performed By: #### C BC #### [facility] [address] [address] [address] Sonido Bejarano MCV (RBC) [Entitic vol] 60.2 fL Critically low 80.0-94.0 [facility] Comment on above: Performed By: #### C BC #### [facility] [address] [place] [address] Dr. Sonido Bejarano MONO # 0.9 103/ul Critically high 0.3-0.8 [facility] Comment on above: Performed By: #### C BC #### [facility] [address] [place] [address] Dr. Sonido Bejarano Monocytes/100 WBC (Bld) 12.9 % Critically high 1.7-12.0 [facility] Comment on above: Performed By: #### C BC #### [facility] [address] [place] [address] Dr. Sonido Bejarano NEUT # 4.5 103/ul Normal 1.4-6.5 [facility] Comment on above: Performed By: #### C BC #### [facility] [address] [place] [address] Dr. Sonido Bejarano Neutrophils/100 WBC (Bld) 66.7 % Normal 43.0-75.0 [facility] Comment on above: Performed By: #### C BC #### [facility] [address] [place] [address] Dr. Sonido Bejarano Platelet mean volume (Bld) [Entitic vol] 9.2 fL Critically low 9.5-13.5 [facility] Comment on above: Performed By: #### C BC #### [facility] [address] [place] [address] Dr. Sonido Bejarano PLT 356 103/ul Normal 150-450 [facility] Comment on above: Performed By: #### C BC #### [facility] [address] [place] [address] Dr. Sonido Bejarano RBC 5.23 106/ul Normal 4.70-6.10 [facility] Comment on above: Result Comment: 2+ P OIKILOCYTOSIS 2+ ANISOCYTOSIS 2+ OVALOCYTE 1+ TEAR DROP CELL 2+ ACANTHOCYTE Performed By: #### C BC #### [facility] [address] [place] [address] Dr. Sonido Bejarano WBC 6.8 103/ul Normal 4.0-11.0 [facility] Comment on above: Performed By: #### C BC #### [facility] [address] [place] [address] Dr. Sonido Bejarano CBC AUTO DIFFon 12-20-2022 BASO # 0.0 103/ul Normal 0.0-0.1 [facility] Comment on above: Performed By: #### C BC #### [facility] [address] [place] [address] Dr. Sonido Bejarano Basophils/100 WBC (Bld) 0.5 % Normal 0.2-2.0 [facility] Comment on above: Performed By: #### C BC #### [facility] [address] [place] [address] Dr. Sonido Bejarano EO # 0.1 103/ul Normal 0.0-0.7 [facility] Comment on above: Performed By: #### C BC #### [facility] [address] [place] [address] Dr. Sonido Bejarano Eosinophils/100 WBC (Bld) 1.3 % Normal 0.9-7.0 [facility] Comment on above: Performed By: #### C BC #### [facility] [address] [place] [address] Dr. Sonido Bejarano Erythrocyte distribution width (RBC) [Ratio] 22.8 % Critically high 11.0-15.0 [facility] Comment on above: Performed By: #### C BC #### [facility] [address] [place] [address] Dr. Sonido Bejarano Hematocrit (Bld) [Volume fraction] 34.5 % Critically low 42.0-54.0 [facility] Comment on above: Performed By: #### C BC #### [facility] [address] [place] [address] Dr. Sonido Bejarano Hemoglobin (Bld) [Mass/Vol] 8.9 g/dL Critically low 14.0-18.0 [facility] Comment on above: Performed By: #### C BC #### [facility] [address] [place] [address] Dr. Sonido Bejarano IG # 0.01 10e3/ul Normal 0.00-0.03 [facility] Comment on above: Performed By: #### C BC #### [facility] [address] [place] [address] Dr. Sonido Bejarano IG % 0.2 % Normal 0.0-0.5 [facility] Comment on above: Performed By: #### C BC #### [facility] [address] [place] [address] Dr. Sonido Bejarano LYMPH # 1.0 103/ul Critically low 1.2-3.8 [facility] Comment on above: Performed By: #### C BC #### [facility] [address] [place] [address] Dr. Sonido Bejarano Lymphocytes/100 WBC (Bld) 18.3 % Critically low 20.5-60.0 [facility] Comment on above: Performed By: #### C BC #### [facility] Laboratory [address] [place] [address] Dr. Sonido Bejarano MANUAL DIFF REQ NO Normal [facility] Comment on above: Performed By: #### C BC #### [facility] [address] [place] [address] Dr. Sonido Bejarano MCH (RBC) [Entitic mass] 15.6 pg Critically low 25.9-34.0 [facility] Comment on above: Performed By: #### C BC #### [facility] [address] [address] [address] Sonido Bejarano MCHC (RBC) [Mass/Vol] 25.8 g/dL Critically low 29.9-35.2 [facility] Comment on above: Performed By: #### C BC #### [facility] [address] [place] [address] Dr. Sonido Bejarano MCV (RBC) [Entitic vol] 60.6 fL Critically low 80.0-94.0 [facility] Comment on above: Performed By: #### C BC #### [facility] [address] [place] [address] Dr. Sonido Bejarano MONO # 0.7 103/ul Normal 0.3-0.8 [facility] Comment on above: Performed By: #### C BC #### [facility] [address] [place] [address] Dr. Sonido Bejarano Monocytes/100 WBC (Bld) 13.2 % Critically high 1.7-12.0 [facility] Comment on above: Performed By: #### C BC #### [facility] [address] [place] [address] Dr. Sonido Bejarano NEUT # 3.7 103/ul Normal 1.4-6.5 [facility] Comment on above: Performed By: #### C BC #### [facility] [address] [place] [address] Dr. Sonido Bejarano Neutrophils/100 WBC (Bld) 66.5 % Normal 43.0-75.0 [facility] Comment on above: Performed By: #### C BC #### [facility] [address] [place] [address] Dr. Sonido Bejarano Platelet mean volume (Bld) [Entitic vol] 9.6 fL Normal 9.5-13.5 [facility] Comment on above: Performed By: #### C BC #### [facility] [address] [place] [address] Dr. Sonido Bejarano PLT 441 103/ul Normal 150-450 [facility] Comment on above: Performed By: #### C BC #### [facility] [address] [place] [address] Dr. Sonido Bejarano RBC 5.69 106/ul Normal 4.70-6.10 [facility] Comment on above: Result Comment: Anis ocytosis 2+ Hypochromasia 2+ Poikilocytosis 2+ Ovalocytes 1+ Tear drop cells 1+ Acanthocytes 1+ Performed By: #### C BC #### [facility] [address] [place] [address] Dr. Sonido Bejarano WBC 5.5 103/ul Normal 4.0-11.0 [facility] Comment on above: Performed By: #### C BC #### [facility] [address] [place] [address] Dr. Sonido eBjarano CBC AUTO DIFFon 11-20-2022 BASO # 0.1 103/ul Normal 0.0-0.1 [facility] Comment on above: Performed By: #### C BC #### [facility] [address] [place] [address] Dr. Sonido Bejarano Basophils/100 WBC (Bld) 1.0 % Normal 0.2-2.0 [facility] Comment on above: Performed By: #### C BC #### [facility] [address] [place] [address] Dr. Sonido Bejarano EO # 0.1 103/ul Normal 0.0-0.7 [facility] Comment on above: Performed By: #### C BC #### [facility] [address] [place] [address] Dr. Sonido Bejarano Eosinophils/100 WBC (Bld) 2.1 % Normal 0.9-7.0 [facility] Comment on above: Performed By: #### C BC #### [facility] [address] [place] [address] Dr. Sonido Bejarano Erythrocyte distribution width (RBC) [Ratio] 23.0 % Critically high 11.0-15.0 [facility] Comment on above: Performed By: #### C BC #### [facility] [address] [place] [address] Dr. Sonido Bejarano Hematocrit (Bld) [Volume fraction] 32.6 % Critically low 42.0-54.0 [facility] Comment on above: Performed By: #### C BC #### [facility] [address] [place] [address] Dr. Sonido Bejarano Hemoglobin (Bld) [Mass/Vol] 8.0 g/dL Critically low 14.0-18.0 [facility] Comment on above: Performed By: #### C BC #### [facility] [address] [place] [address] Dr. Sonido Bejarano IG # 0.01 10e3/ul Normal 0.00-0.03 [facility] Comment on above: Performed By: #### C BC #### [facility] [address] [place] [address] Dr. Sonido Bejarano IG % 0.2 % Normal 0.0-0.5 [facility] Comment on above: Performed By: #### C BC #### [facility] [address] [place] [address] Dr. Sonido Bejarano LYMPH # 1.1 103/ul Critically low 1.2-3.8 [facility] Comment on above: Performed By: #### C BC #### [facility] [address] [place] [address] Dr. Sonido Bejarano Lymphocytes/100 WBC (Bld) 22.0 % Normal 20.5-60.0 [facility] Comment on above: Performed By: #### C BC #### [facility] [address] [place] [address] Dr. Sonido Bejarano MANUAL DIFF REQ NO Normal [facility] Comment on above: Performed By: #### C BC #### [facility] [address] [place] [address] Dr. Sonido Bejarano MCH (RBC) [Entitic mass] 15.6 pg Critically low 25.9-34.0 [facility] Comment on above: Performed By: #### C BC #### [facility] [address] [place] [address] Dr. Sonido Bejarano MCHC (RBC) [Mass/Vol] 24.5 g/dL Critically low 29.9-35.2 [facility] Comment on above: Performed By: #### C BC #### [facility] [address] [address] [address] Sonido Bejarano MCV (RBC) [Entitic vol] 63.4 fL Critically low 80.0-94.0 [facility] Comment on above: Performed By: #### C BC #### [facility] [address] [address] [address] Sonido Bejarano MONO # 0.6 103/ul Normal 0.3-0.8 [facility] Comment on above: Performed By: #### C BC #### [facility] [address] [place] [address] Dr. Sonido Bejarano Monocytes/100 WBC (Bld) 13.0 % Critically high 1.7-12.0 [facility] Comment on above: Performed By: #### C BC #### [facility] [address] [place] [address] Dr. Sonido Bejarano NEUT # 3.0 103/ul Normal 1.4-6.5 [facility] Comment on above: Performed By: #### C BC #### [facility] [address] [place] [address] Dr. Sonido Bejarano Neutrophils/100 WBC (Bld) 61.7 % Normal 43.0-75.0 [facility] Comment on above: Performed By: #### C BC #### [facility] [address] [place] [address] Dr. Sonido Bejarano Platelet mean volume (Bld) [Entitic vol] 8.6 fL Critically low 9.5-13.5 [facility] Comment on above: Performed By: #### C BC #### [facility] [address] [place] [address] Dr. Sonido Bejarano PLT 333 103/ul Normal 150-450 [facility] Comment on above: Performed By: #### C BC #### [facility] [address] [place] [address] Dr. Sonido Bejarano RBC 5.14 106/ul Normal 4.70-6.10 [facility] Comment on above: Performed By: #### C BC #### [facility] [address] [address] [address] Sonido Bejarano WBC 4.9 103/ul Normal 4.0-11.0 [facility] Comment on above: Performed By: #### C BC #### [facility] [address] [place], [place] [id number] Dr. Sonido Bejarano CBC AUTO DIFFon 10-11-2022 BASO # 0.0 103/ul Normal 0.0-0.1 [facility] Comment on above: Performed By: #### C BC #### [facility] [address] [place] [address] Dr. Sonido Bejarano Basophils/100 WBC (Bld) 0.8 % Normal 0.2-2.0 [facility] Comment on above: Performed By: #### C BC #### [facility] [address] [place] [address] Dr. Sonido Bejarano EO # 0.1 103/ul Normal 0.0-0.7 [facility] Comment on above: Performed By: #### C BC #### [facility] [address] [place] [address] Dr. Sonido Bejarano Eosinophils/100 WBC (Bld) 1.5 % Normal 0.9-7.0 [facility] Comment on above: Performed By: #### C BC #### [facility] [address] [place] [address] Dr. Sonido Bejarano Erythrocyte distribution width (RBC) [Ratio] 22.4 % Critically high 11.0-15.0 [facility] Comment on above: Performed By: #### C BC #### [facility] [address] [place] [address] Dr. Sonido Bejarano Hematocrit (Bld) [Volume fraction] 32.3 % Critically low 42.0-54.0 [facility] Comment on above: Performed By: #### C BC #### [facility] [address] [place] [address] Dr. Sonido Bejarano Hemoglobin (Bld) [Mass/Vol] 8.1 g/dL Critically low 14.0-18.0 [facility] Comment on above: Performed By: #### C BC #### [facility] [address] [place] [address] Dr. Sonido Bejarano IG # 0.01 10e3/ul Normal 0.00-0.03 [facility] Comment on above: Performed By: #### C BC #### [facility] [address] [place] [address] Dr. Sonido Bejarano IG % 0.2 % Normal 0.0-0.5 [facility] Comment on above: Performed By: #### C BC #### [facility] [address] [place] [address] Dr. Sonido Bejarano LYMPH # 1.2 103/ul Normal 1.2-3.8 [facility] Comment on above: Performed By: #### C BC #### [facility] [address] [place] [address] Dr. Sonido Bejarano Lymphocytes/100 WBC (Bld) 22.8 % Normal 20.5-60.0 [facility] Comment on above: Performed By: #### C BC #### [facility] [address] [place] [address] Dr. Sonido Bejarano MANUAL DIFF REQ NO Normal [facility] Comment on above: Performed By: #### C BC #### [facility] [address] [place] [address] Dr. Sonido Bejarano MCH (RBC) [Entitic mass] 15.1 pg Critically low 25.9-34.0 [facility] Comment on above: Performed By: #### C BC #### [facility] [address] [place] [address] Dr. Sonido Bejarano MCHC (RBC) [Mass/Vol] 25.1 g/dL Critically low 29.9-35.2 [facility] Comment on above: Performed By: #### C BC #### [facility] [address] [place] [address] Dr. Sonido Bejarano MCV (RBC) [Entitic vol] 60.0 fL Critically low 80.0-94.0 [facility] Comment on above: Performed By: #### C BC #### [facility] [address] [place] [address] Dr. Sonido Bejarano MONO # 0.7 103/ul Normal 0.3-0.8 [facility] Comment on above: Performed By: #### C BC #### [facility] [address] [place] [address] Dr. Sonido Bejarano Monocytes/100 WBC (Bld) 12.5 % Critically high 1.7-12.0 [facility] Comment on above: Performed By: #### C BC #### [facility] [address] [place] [address] Dr. Sonido Bejarano NEUT # 3.2 103/ul Normal 1.4-6.5 [facility] Comment on above: Performed By: #### C BC #### [facility] [address] [place] [address] Dr. Sonido Bejarano Neutrophils/100 WBC (Bld) 62.2 % Normal 43.0-75.0 [facility] Comment on above: Performed By: #### C BC #### [facility] [address] [place] [address] Dr. Sonido Bejarano Platelet mean volume (Bld) [Entitic vol] 8.6 fL Critically low 9.5-13.5 [facility] Comment on above: Performed By: #### C BC #### [facility] [address] [place] [address] Dr. Sonido Bejarano PLT 345 103/ul Normal 150-450 [facility] Comment on above: Performed By: #### C BC #### [facility] [address] [place] [address] Dr. Sonido Bejarano RBC 5.38 106/ul Normal 4.70-6.10 [facility] Comment on above: Performed By: #### C BC #### [facility] [address] [place] [address] Dr. Sonido Bejarano WBC 5.2 103/ul Normal 4.0-11.0 [facility] Comment on above: Performed By: #### C BC #### [facility] [address] [address] [address] Sonido Bejarano CBC W MANUAL DIFFon 09-18-20 ANISOCYTOSIS 3+ Normal [facility] Comment on above: Performed By: #### C BCMAN #### [facility] [address] [place] [address] Dr. Sonido Bejarano ATYPICAL LYMPH # Normal [facility] Comment on above: Performed By: #### C BCMAN #### [facility] [address] [place] [address] Dr. Sonido Bejarano ATYPICAL LYMPH % Normal [facility] Comment on above: Performed By: #### C BCMAN #### [facility] [address] [place] [address] Dr. Sonido Bejarano BAND # Normal 0.0-0.3 [facility] Comment on above: Performed By: #### C BCMAN #### [facility] [address] [place] [address] Dr. Sonido Bejarano BAND % Normal 0-5 [facility] Comment on above: Performed By: #### C BCMAN #### [facility] [address] [place] [address] Dr. Sonido Bejarano BASOM # 0.00 103/ul Normal 0.00-0.10 [facility] Comment on above: Performed By: #### C BCMAN #### [facility] [address] [place] [address] Dr. Sonido Bejarano BASOM % 0.0 % Critically low 0.2-2.0 [facility] Comment on above: Performed By: #### C BCMAN #### [facility] [address] [place] [address] Dr. Sonido Bejarano BLAST # Normal [facility] Comment on above: Performed By: #### C BCMAN #### [facility] [address] [place] [address] Dr. Sonido Bejarano BLAST % Normal [facility] Comment on above: Performed By: #### C BCMAN #### [facility] [address] [place] [address] Dr. Sonido Bejarano CORRECTED WBC Normal 4.0-11.0 [facility] Comment on above: Performed By: #### C BCKATHERINE #### [facility] [address] [address] [address] Sonido Bejarano EOS # 0.08 103/ul Normal 0.00-0.70 [facility] Comment on above: Performed By: #### C BCKATHERINE #### [facility] [address] [address] [address] Sonido Bejarano EOS% 2.0 % Normal 0.9-7.0 [facility] Comment on above: Performed By: #### C BCKATHERINE #### [facility] [address] [address] [address] Sonido Bejarano HCT 31.1 % Critically low 42.0-54.0 [facility] Comment on above: Performed By: #### C RAMILA #### [facility] [address] [place] [address] Dr. Sonido Bejarano HGB 8.3 g/dl Critically low 14.0-18.0 [facility] Comment on above: Performed By: #### C RAMILA #### [facility] [address] [address] [address] Sonido Bejarano HYPOCHROMASIA SLIGHT Normal [facility] Comment on above: Performed By: #### C BCKATHERINE #### [facility] [address] [address] [address] Sonido Bejarano LYMPHM # 1.13 103/ul Critically low 1.20-3.80 [facility] Comment on above: Performed By: #### C BCKATHERINE #### [facility] [address] [address] [address] Sonido Bejarano LYMPHM% 27.0 % Normal 20.5-60.0 [facility] Comment on above: Performed By: #### C BCKATHERINE #### [facility] [address] [place] [address] Dr. Sonido Bejarano MCH 15.9 pg Critically low 25.9-34.0 [facility] Comment on above: Performed By: #### C BCKATHERINE #### [facility] [address] [address] [address] Sonido Bejarano MCHC 26.7 g/dl Critically low 29.9-35.2 [facility] Comment on above: Performed By: #### C RAMILA #### [facility] [address] [place] [address] Dr. Sonido Bejarano MCV 59.5 fL Critically low 80.0-94.0 [facility] Comment on above: Performed By: #### C BCKATHERINE #### [facility] [address] [place] [address] Dr. Sonido Bejarano METAMYELOCYTE # Normal [facility] Comment on above: Performed By: #### C RAMILA #### [facility] [address] [place] [address] Dr. Sonido Bejarano METAMYELOCYTE % Normal [facility] Comment on above: Performed By: #### C RAMILA #### [facility] [address] [place] [address] Dr. Sonido Bejarano MICROCYTOSIS 3+ Normal [facility] Comment on above: Performed By: #### C RAMILA #### [facility] [address] [place] [address] Dr. Sonido Bejarano MONOM# 0.55 103/ul Normal 0.30-0.80 [facility] Comment on above: Performed By: #### C RAMILA #### [facility] [address] [place] [address] Dr. Sonido Bejarano MONOM% 13.0 % Critically high 1.7-12.0 [facility] Comment on above: Performed By: #### C RAMILA #### [facility] [address] [place] [address] Dr. Sonido Bejarano MPV 9.7 fL Normal 9.5-13.5 [facility] Comment on above: Performed By: #### C BCKATHERINE #### [facility] [address] [place] [address] Dr. Sonido Bejarano MYELOCYTE # Normal [facility] Comment on above: Performed By: #### C BCKATHERINE #### [facility] [address] [address] [address] Sonido Bejarano MYELOCYTE % Normal [facility] Comment on above: Performed By: #### C RAMILA #### [facility] [address] [place] [address] Dr. Sonido Bejarano NRBC Normal [facility] Comment on above: Performed By: #### C OSWALDOMAN #### [facility] [address] [address] [address] Sonido Bejarano PLT 421 103/ul Normal 150-450 [facility] Comment on above: Performed By: #### C RAMILA #### [facility] [address] [place] [address] Dr. Sonido Bejarano RBC 5.23 106/ul Normal 4.70-6.10 [facility] Comment on above: Performed By: #### C RAMILA #### [facility] [address] [place] [address] Dr. Sonido Bejarano RDW 22.2 % Critically high 11.0-15.0 [facility] Comment on above: Performed By: #### C RAMILA #### [facility] [address] [place] [address] Dr. Sonido Bejarano SEG # 2.44 103/ul Normal 1.40-6.50 [facility] Comment on above: Performed By: #### C OSWALDOMAN #### [facility] [address] [place] [address] Dr. Sonido Bejarano SEG % 58.0 % Normal 43.0-75.0 [facility] Comment on above: Performed By: #### C BCMAN #### [facility] [address] [place] [address] Dr. Sonido Bejarano WBC 4.2 103/ul Normal 4.0-11.0 [facility] Comment on above: Performed By: #### C OSWALDOMAN #### [facility] [address] [place] [address] Dr. Sonido Bejarano CBC AUTO DIFFon 08-21-2022 BASO # 0.0 103/ul Normal 0.0-0.1 [facility] Comment on above: Performed By: #### C BC #### [facility] [address] [place] [address] Dr. Sonido Bejarano Basophils/100 WBC (Bld) 0.6 % Normal 0.2-2.0 [facility] Comment on above: Performed By: #### C BC #### [facility] [address] [place] [address] Dr. Sonido Bejarano EO # 0.1 103/ul Normal 0.0-0.7 [facility] Comment on above: Performed By: #### C BC #### [facility] [address] [place] [address] Dr. Sonido Bejarano Eosinophils/100 WBC (Bld) 1.0 % Normal 0.9-7.0 [facility] Comment on above: Performed By: #### C BC #### [facility] [address] [place] [address] Dr. Sonido Bejarano Erythrocyte distribution width (RBC) [Ratio] 21.9 % Critically high 11.0-15.0 [facility] Comment on above: Result Comment: anis ocytosis 2+ Performed By: #### C BC #### [facility] [address] [place] [address] Dr. Sonido Bejarano Hematocrit (Bld) [Volume fraction] 32.7 % Critically low 42.0-54.0 [facility] Comment on above: Performed By: #### C BC #### [facility] [address] [place] [address] Dr. Sonido Bejarano Hemoglobin (Bld) [Mass/Vol] 8.4 g/dL Critically low 14.0-18.0 [facility] Comment on above: Performed By: #### C BC #### [facility] [address] [place] [address] Dr. Sonido Bejarano IG # 0.01 10e3/ul Normal 0.00-0.03 [facility] Comment on above: Performed By: #### C BC #### [facility] [address] [place] [address] Dr. Sonido Bejarano IG % 0.2 % Normal 0.0-0.5 [facility] Comment on above: Performed By: #### C BC #### [facility] [address] [address] [address] Sonido Bejarano LYMPH # 1.1 103/ul Critically low 1.2-3.8 [facility] Comment on above: Performed By: #### C BC #### [facility] [address] [address] [address] Sonido Bejarano Lymphocytes/100 WBC (Bld) 22.3 % Normal 20.5-60.0 [facility] Comment on above: Performed By: #### C BC #### [facility] [address] [address] [address] Sonido Bejarano MANUAL DIFF REQ NO Normal [facility] Comment on above: Performed By: #### C BC #### [facility] [address] [place] [address] Dr. Sonido Bejarano MCH (RBC) [Entitic mass] 15.3 pg Critically low 25.9-34.0 [facility] Comment on above: Performed By: #### C BC #### [facility] [address] [place] [address] Dr. Sonido Bejarano MCHC (RBC) [Mass/Vol] 25.7 g/dL Critically low 29.9-35.2 [facility] Comment on above: Result Comment: hypo chromasia 2+ Performed By: #### C BC #### [facility] [address] [place] [address] Dr. Sonido Bejarano MCV (RBC) [Entitic vol] 59.6 fL Critically low 80.0-94.0 [facility] Comment on above: Result Comment: micr ocytosis 3+ Performed By: #### C BC #### [facility] [address] [place] [address] Dr. Sonido Bejarano MONO # 0.5 103/ul Normal 0.3-0.8 [facility] Comment on above: Performed By: #### C BC #### [facility] [address] [place] [address] Dr. Sonido Bejarano Monocytes/100 WBC (Bld) 10.8 % Normal 1.7-12.0 [facility] Comment on above: Performed By: #### C BC #### [facility] [address] [place] [address] Dr. Sonido Bejarano NEUT # 3.2 103/ul Normal 1.4-6.5 [facility] Comment on above: Performed By: #### C BC #### [facility] [address] [place] [address] Dr. Sonido Bejarano Neutrophils/100 WBC (Bld) 65.1 % Normal 43.0-75.0 [facility] Comment on above: Performed By: #### C BC #### [facility] [address] [place] [address] Dr. Sonido Bejarano Platelet mean volume (Bld) [Entitic vol] 9.5 fL Normal 9.5-13.5 [facility] Comment on above: Performed By: #### C BC #### [facility] [address] [place] [address] Dr. Sonido Bejarano PLT 415 103/ul Normal 150-450 [facility] Comment on above: Performed By: #### C BC #### [facility] [address] [place] [address] Dr. Sonido Bejarano RBC 5.49 106/ul Normal 4.70-6.10 [facility] Comment on above: Performed By: #### C BC #### [facility] [address] [place] [address] Dr. Sonido Bejarano WBC 5.0 103/ul Normal 4.0-11.0 [facility] Comment on above: Performed By: #### C BC #### [facility] [address] [place] [address] Dr. Sonido Bejarano CBC AUTO DIFFon 08-02-2022 BASO # 0.0 103/ul Normal 0.0-0.1 [facility] Comment on above: Performed By: #### C BC #### [facility] [address] [place] [address] Dr. Sonido Bejarano Basophils/100 WBC (Bld) 0.3 % Normal 0.2-2.0 [facility] Comment on above: Performed By: #### C BC #### [facility] [address] [address] Dr. Sonido Bejarano EO # 0.0 103/ul Normal 0.0-0.7 [facility] Comment on above: Performed By: #### C BC #### [facility] [address] [place] [address] Dr. Sonido Bejarano Eosinophils/100 WBC (Bld) 0.7 % Critically low 0.9-7.0 [facility] Comment on above: Performed By: #### C BC #### [facility] [address] [place] [address] Dr. Sonido Bejarano Erythrocyte distribution width (RBC) [Ratio] 21.9 % Critically high 11.0-15.0 [facility] Comment on above: Performed By: #### C BC #### [facility] [address] [place] [address] Dr. Sonido Bejarano Hematocrit (Bld) [Volume fraction] 30.0 % Critically low 42.0-54.0 [facility] Comment on above: Performed By: #### C BC #### [facility] [address] [place] [address] Dr. Sonido Bejarano Hemoglobin (Bld) [Mass/Vol] 7.8 g/dL Critically low 14.0-18.0 [facility] Comment on above: Performed By: #### C BC #### [facility] [address] [place] [address] Dr. Sonido Bejarano IG # 0.01 10e3/ul Normal 0.00-0.03 [facility] Comment on above: Performed By: #### C BC #### [facility] [address] [place] [address] Dr. Sonido Bejarano IG % 0.2 % Normal 0.0-0.5 [facility] Comment on above: Performed By: #### C BC #### [facility] [address] [place] [address] Dr. Sonido Bejarano LYMPH # 1.0 103/ul Critically low 1.2-3.8 [facility] Comment on above: Performed By: #### C BC #### [facility] [address] [address] [address] Sonido Bejarano Lymphocytes/100 WBC (Bld) 18.0 % Critically low 20.5-60.0 [facility] Comment on above: Performed By: #### C BC #### [facility] [address] [place] [address] Dr. Sonido Bejarano MANUAL DIFF REQ NO Normal [facility] Comment on above: Performed By: #### C BC #### [facility] [address] [address] [address] Sonido Bejarano MCH (RBC) [Entitic mass] 15.9 pg Critically low 25.9-34.0 [facility] Comment on above: Performed By: #### C BC #### [facility] [address] [place] [address] Dr. Sonido Bejarano MCHC (RBC) [Mass/Vol] 26.0 g/dL Critically low 29.9-35.2 [facility] Comment on above: Performed By: #### C BC #### [facility] [address] [place] [address] Dr. Sonido Bejarano MCV (RBC) [Entitic vol] 61.2 fL Critically low 80.0-94.0 [facility] Comment on above: Performed By: #### C BC #### [facility] [address] [place] [address] Dr. Sonido Bejarano MONO # 0.5 103/ul Normal 0.3-0.8 [facility] Comment on above: Performed By: #### C BC #### [facility] [address] [place] [address] Dr. Sonido Bejarano Monocytes/100 WBC (Bld) 8.7 % Normal 1.7-12.0 [facility] Comment on above: Performed By: #### C BC #### [facility] [address] [place] [address] Dr. Sonido Bejarano NEUT # 4.1 103/ul Normal 1.4-6.5 [facility] Comment on above: Performed By: #### C BC #### [facility] [address] [place] [address] Dr. Sonido Bejarano Neutrophils/100 WBC (Bld) 72.1 % Normal 43.0-75.0 [facility] Comment on above: Performed By: #### C BC #### [facility] [address] [place] [address] Dr. Sonido Bejarano Platelet mean volume (Bld) [Entitic vol] 9.3 fL Critically low 9.5-13.5 [facility] Comment on above: Performed By: #### C BC #### [facility] [address] [place] [address] Dr. Sonido Bejarano PLT 339 103/ul Normal 150-450 [facility] Comment on above: Performed By: #### C BC #### [facility] [address] [place] [address] Dr. Sonido Bejarano RBC 4.90 106/ul Normal 4.70-6.10 [facility] Comment on above: Performed By: #### C BC #### [facility] [address] [place] [address] Dr. Sonido Bejarano WBC 5.7 103/ul Normal 4.0-11.0 [facility] Comment on above: Performed By: #### C BC #### [facility] [address] [place] [address] Dr. Sonido Bejarano CBC AUTO DIFFon 06-17-2022 BASO # 0.0 103/ul Normal 0.0-0.1 [facility] Comment on above: Performed By: #### C BC #### [facility] [address] [place] [address] Dr. Sonido Bejarano Basophils/100 WBC (Bld) 0.7 % Normal 0.2-2.0 [facility] Comment on above: Performed By: #### C BC #### [facility] [address] [place] [address] Dr. Sonido Bejarano EO # 0.3 103/ul Normal 0.0-0.7 [facility] Comment on above: Performed By: #### C BC #### [facility] [address] [place] [address] Dr. Sonido Bejarano Eosinophils/100 WBC (Bld) 5.3 % Normal 0.9-7.0 [facility] Comment on above: Performed By: #### C BC #### [facility] [address] [place] [address] Dr. Sonido Bejarano Erythrocyte distribution width (RBC) [Ratio] 22.1 % Critically high 11.0-15.0 [facility] Comment on above: Performed By: #### C BC #### [facility] [address] [place] [address] Dr. Sonido Bejarano Hematocrit (Bld) [Volume fraction] 32.2 % Critically low 42.0-54.0 [facility] Comment on above: Performed By: #### C BC #### [facility] [address] [place] [address] Dr. Sonido Bejarano Hemoglobin (Bld) [Mass/Vol] 8.2 g/dL Critically low 14.0-18.0 [facility] Comment on above: Performed By: #### C BC #### [facility] [address] [place] [address] Dr. Sonido Bejarano IG # 0.01 10e3/ul Normal 0.00-0.03 [facility] Comment on above: Performed By: #### C BC #### [facility] [address] [place] [address] Dr. Sonido Bejarano IG % 0.2 % Normal 0.0-0.5 [facility] Comment on above: Performed By: #### C BC #### [facility] [address] [place] [address] Dr. Sonido Bejarano LYMPH # 1.1 103/ul Critically low 1.2-3.8 [facility] Comment on above: Performed By: #### C BC #### [facility] [address] [place] [address] Dr. Sonido Bejarano Lymphocytes/100 WBC (Bld) 19.3 % Critically low 20.5-60.0 [facility] Comment on above: Performed By: #### C BC #### [facility] [address] [address] [address] Sonido Bejarano MANUAL DIFF REQ NO Normal [facility] Comment on above: Performed By: #### C BC #### [facility] [address] [place] [address] Dr. Sonido Bejarano MCH (RBC) [Entitic mass] 15.8 pg Critically low 25.9-34.0 [facility] Comment on above: Performed By: #### C BC #### [facility] [address] [place] [address] Dr. Sonido Bejarano MCHC (RBC) [Mass/Vol] 25.5 g/dL Critically low 29.9-35.2 [facility] Comment on above: Performed By: #### C BC #### [facility] [address] [place] [address] Dr. Sonido Bejarano MCV (RBC) [Entitic vol] 62.0 fL Critically low 80.0-94.0 [facility] Comment on above: Performed By: #### C BC #### [facility] [address] [place] [address] Dr. Sonido Bejarano MONO # 0.9 103/ul Critically high 0.3-0.8 [facility] Comment on above: Performed By: #### C BC #### [facility] [address] [place] [address] Dr. Sonido Bejarano Monocytes/100 WBC (Bld) 16.0 % Critically high 1.7-12.0 [facility] Comment on above: Performed By: #### C BC #### [facility] [address] [place] [address] Dr. Sonido Bejarano NEUT # 3.2 103/ul Normal 1.4-6.5 [facility] Comment on above: Performed By: #### C BC #### [facility] [address] [place] [address] Dr. Sonido Bejarano Neutrophils/100 WBC (Bld) 58.5 % Normal 43.0-75.0 [facility] Comment on above: Performed By: #### C BC #### [facility] [address] [place] [address] Dr. Sonido Bejarano Platelet mean volume (Bld) [Entitic vol] 9.3 fL Critically low 9.5-13.5 [facility] Comment on above: Performed By: #### C BC #### [facility] [address] [place] [address] Dr. Sonido Bejarano PLT 335 103/ul Normal 150-450 [facility] Comment on above: Performed By: #### C BC #### [facility] [address] [place] [address] Dr. Sonido Bejarano RBC 5.19 106/ul Normal 4.70-6.10 [facility] Comment on above: Performed By: #### C BC #### [facility] [address] [place] [address] Dr. Sonido Bejarano WBC 5.5 103/ul Normal 4.0-11.0 [facility] Comment on above: Performed By: #### C BC #### [facility] [address] [place] [address] Dr. Sonido Bejarano CBC AUTO DIFFon 05-15-2022 BASO # 0.0 103/ul Normal 0.0-0.1 [facility] Comment on above: Performed By: #### C BC #### [facility] [address] [place] [address] Dr. Sonido Bejarano Basophils/100 WBC (Bld) 0.8 % Normal 0.2-2.0 [facility] Comment on above: Performed By: #### C BC #### [facility] [address] [place] [address] Dr. Sonido Bejarano EO # 0.1 103/ul Normal 0.0-0.7 [facility] Comment on above: Performed By: #### C BC #### [facility] [address] [place] [address] Dr. Sonido Bejarano Eosinophils/100 WBC (Bld) 2.3 % Normal 0.9-7.0 [facility] Comment on above: Performed By: #### C BC #### [facility] [address] [place] [address] Dr. Sonido Bejarano Erythrocyte distribution width (RBC) [Ratio] 21.5 % Critically high 11.0-15.0 [facility] Comment on above: Performed By: #### C BC #### [facility] [address] [place] [address] Dr. Sonido Bejarano Hematocrit (Bld) [Volume fraction] 30.5 % Critically low 42.0-54.0 [facility] Comment on above: Performed By: #### C BC #### [facility] [address] [place] [address] Dr. Sonido Bejarano Hemoglobin (Bld) [Mass/Vol] 7.9 g/dL Critically low 14.0-18.0 [facility] Comment on above: Performed By: #### C BC #### [facility] [address] [place] [address] Dr. Sonido Bejarano IG # 0.01 10e3/ul Normal 0.00-0.03 [facility] Comment on above: Performed By: #### C BC #### [facility] [address] [place] [address] Dr. Sonido Bejarano IG % 0.2 % Normal 0.0-0.5 [facility] Comment on above: Performed By: #### C BC #### [facility] [address] [place] [address] Dr. Sonido Bejarano LYMPH # 1.3 103/ul Normal 1.2-3.8 [facility] Comment on above: Performed By: #### C BC #### [facility] [address] [place] [address] Dr. Sonido Bejarano Lymphocytes/100 WBC (Bld) 24.6 % Normal 20.5-60.0 [facility] Comment on above: Performed By: #### C BC #### [facility] [address] [place] [address] Dr. Sonido Bejarano MANUAL DIFF REQ NO Normal [facility] Comment on above: Performed By: #### C BC #### [facility] [address] [place] [address] Dr. Sonido Bejarano MCH (RBC) [Entitic mass] 15.6 pg Critically low 25.9-34.0 [facility] Comment on above: Performed By: #### C BC #### [facility] [address] [place] [address] Dr. Sonido Bejarano MCHC (RBC) [Mass/Vol] 25.9 g/dL Critically low 29.9-35.2 [facility] Comment on above: Performed By: #### C BC #### [facility] [address] [place] [address] Dr. Sonido Bejarano MCV (RBC) [Entitic vol] 60.4 fL Critically low 80.0-94.0 [facility] Comment on above: Performed By: #### C BC #### [facility] [address] [place] [address] Dr. Sonido Bejarano MONO # 0.6 103/ul Normal 0.3-0.8 [facility] Comment on above: Performed By: #### C BC #### [facility] [address] [place] [address] Dr. Sonido Bejarano Monocytes/100 WBC (Bld) 12.1 % Critically high 1.7-12.0 [facility] Comment on above: Performed By: #### C BC #### [facility] [address] [place] [address] Dr. Sonido Bejarano NEUT # 3.1 103/ul Normal 1.4-6.5 [facility] Comment on above: Performed By: #### C BC #### [facility] [address] [place] [address] Dr. Sonido Bejarano Neutrophils/100 WBC (Bld) 60.0 % Normal 43.0-75.0 [facility] Comment on above: Performed By: #### C BC #### [facility] [address] [place] [address] Dr. Sonido Bejarano Platelet mean volume (Bld) [Entitic vol] 9.6 fL Normal 9.5-13.5 [facility] Comment on above: Performed By: #### C BC #### [facility] [address] [place] [address] Dr. Sonido Bejarano PLT 399 103/ul Normal 150-450 [facility] Comment on above: Performed By: #### C BC #### [facility] [address] [place] [address] Dr. Sonido Bejarano RBC 5.05 106/ul Normal 4.70-6.10 [facility] Comment on above: Performed By: #### C BC #### [facility] [address] [place] [address] Dr. Sonido Bejarano WBC 5.1 103/ul Normal 4.0-11.0 [facility] Comment on above: Performed By: #### C BC #### [facility] [address] [place] [address] Dr. Sonido Bejarano CBC AUTO DIFFon 04-15-2022 BASO # 0.0 103/ul Normal 0.0-0.1 [facility] Comment on above: Performed By: #### C BC #### [facility] [address] [place] [address] Dr. Sonido Bejarano Basophils/100 WBC (Bld) 0.3 % Normal 0.2-2.0 [facility] Comment on above: Performed By: #### C BC #### [facility] [address] [place] [address] Dr. Sonido Bejarano EO # 0.1 103/ul Normal 0.0-0.7 [facility] Comment on above: Performed By: #### C BC #### [facility] [address] [place] [address] Dr. Sonido Bejarano Eosinophils/100 WBC (Bld) 1.0 % Normal 0.9-7.0 [facility] Comment on above: Performed By: #### C BC #### [facility] [address] [place] [address] Dr. Sonido Bejarano Erythrocyte distribution width (RBC) [Ratio] 21.2 % Critically high 11.0-15.0 [facility] Comment on above: Performed By: #### C BC #### [facility] [address] [place] [address] Dr. Sonido Bejarano Hematocrit (Bld) [Volume fraction] 32.2 % Critically low 42.0-54.0 [facility] Comment on above: Performed By: #### C BC #### [facility] [address] [place] [address] Dr. Sonido Bejarano Hemoglobin (Bld) [Mass/Vol] 8.3 g/dL Critically low 14.0-18.0 [facility] Comment on above: Performed By: #### C BC #### [facility] [address] [address] [address] Sonido Bejarano IG # 0.03 10e3/ul Normal 0.00-0.03 [facility] Comment on above: Performed By: #### C BC #### [facility] [address] [place] [address] Dr. Sonido Bejarano IG % 0.4 % Normal 0.0-0.5 [facility] Comment on above: Performed By: #### C BC #### [facility] [address] [place] [address] Dr. Sonido Bejarano LYMPH # 1.0 103/ul Critically low 1.2-3.8 [facility] Comment on above: Performed By: #### C BC #### [facility] [address] [place] [address] Dr. Sonido Bejarano Lymphocytes/100 WBC (Bld) 15.2 % Critically low 20.5-60.0 [facility] Comment on above: Performed By: #### C BC #### [facility] [address] [place] [address] Dr. Sonido Bejarano MANUAL DIFF REQ NO Normal [facility] Comment on above: Performed By: #### C BC #### [facility] [address] [place] [address] Dr. Sonido Bejarano MCH (RBC) [Entitic mass] 16.1 pg Critically low 25.9-34.0 [facility] Comment on above: Performed By: #### C BC #### [facility] [address] [place] [address] Dr. Sonido Bejarano MCHC (RBC) [Mass/Vol] 25.8 g/dL Critically low 29.9-35.2 [facility] Comment on above: Performed By: #### C BC #### [facility] [address] [place] [address] Dr. Sonido Bejarano MCV (RBC) [Entitic vol] 62.4 fL Critically low 80.0-94.0 [facility] Comment on above: Performed By: #### C BC #### [facility] [address] [place] [address] Dr. Sonido Bejarano MONO # 0.6 103/ul Normal 0.3-0.8 [facility] Comment on above: Performed By: #### C BC #### [facility] [address] [place] [address] Dr. Sonido Bejarano Monocytes/100 WBC (Bld) 8.5 % Normal 1.7-12.0 [facility] Comment on above: Performed By: #### C BC #### [facility] [address] [place] [address] Dr. Sonido Bejarano NEUT # 5.0 103/ul Normal 1.4-6.5 [facility] Comment on above: Performed By: #### C BC #### [facility] [address] [place] [address] Dr. Sonido Bejarano Neutrophils/100 WBC (Bld) 74.6 % Normal 43.0-75.0 [facility] Comment on above: Performed By: #### C BC #### [facility] [address] [place] [address] Dr. Sonido Bejarano Platelet mean volume (Bld) [Entitic vol] 9.9 fL Normal 9.5-13.5 [facility] Comment on above: Performed By: #### C BC #### [facility] [address] [place] [address] Dr. Sonido Bejarano PLT 355 103/ul Normal 150-450 [facility] Comment on above: Performed By: #### C BC #### [facility] [address] [place] [address] Dr. Sonido Bejarano RBC 5.16 106/ul Normal 4.70-6.10 [facility] Comment on above: Result Comment: 1+ o valocytes slight hypochromic slight microchromic Performed By: #### C BC #### [facility] [address] [address] [address] Sonido Bejarano WBC 6.7 103/ul Normal 4.0-11.0 [facility] Comment on above: Performed By: #### C BC #### [facility] [address] [address] [address] Sonido Diana 03-28-2022 CNOV Office Visit ([facility] ) -------- RJ COLBERT ([id number]) 2000 [place] [facility] [place] Department 03/28/22 11:20 AM ARNOLD GENAO [facility] During your visit today, we recorded [...] exam Anorectal: External exam reveals: see below Supervisor Pile Driving present: yes Assessment Assessment and Plan: Rj [...] Assessed Reason for Visit: Established Patient Follow-Up [[id number]] Rectal Bleeding [202] Primary Visit Diagnosis:Hematochezia [K92.1] [...] benztropine (C (more content not included)... Normal [facility] Lisa 03-28-2022 CNPN Telephone ([facility]) -------- RJ COLBERT ([id number]) 2000 [place] Date Time Provider Department 03/28/22 ARNOLD GENAO [facility] During your visit today, we recorded the following information about you: Essie Pickard Pss 03/28/2022 1:41 PM Signed Patient called and left message regarding prescription from today's visit return call to [phone] Charley Mcclelland RN 03/28/2022 2:49 PM Signed Returned call. Spoke with Rj's nurse. She states she needs a script sent to his pharmacy for the magnesium supplement for constipation. Script will be sent. No other questions or concerns at this time. Allergies As of Date: 03/28/2022 (No Known Allergies) Date Reviewed: 03/28/2022 Reviewed by: Yamiel Berrios MA - Fully Assessed Reason for Visit: Patient Question [2188] Prescriptions as of 03/28/2022 - acetaminophen (TYLENOL) [...] Status:Closed by CHARLEY MCCLELLAND on 03/28/22 [id number] RJ COLBERT ([id number]) 2000 [address]* Date Time Provider Department 03/28/22 ARNOLD GENAO [id number] During your visit today, we recorded the following information about you: Sara Rose ADM 03/28/2022 3:45 PM Signed Pharmacy, [facility], [facility], phone , any pharmacist to clarify about carbonate? CALM is retirement able to order as food item? Please call to discuss. Charley Mcclelland, RN 03/28/2022 4:14 PM Signed Spoke with the pharmacist and she states that she does not provide food items. She will speak with the nurse at the retirement. Allergies As of Date: 03/28/2022 (No Known [...] by CHARLEY MCCLELLAND on 03/28/22 [facility] CNOVon 11-16-2021 CNOV Office Visit ([facility] ) -------- RJ COLBERT ([id number]) 2000 [place] Date Time Provider Department 11/16/21 1:30 PM CRISTAL NAVA During your visit today, we recorded the following information about you: Pulse Blood pressure Weight Height 60/minute 136/80 96.2 kg 1.803 m Cristal Nava APRN.STAVE LOG RIPSAW OPERATOR 11/16/2021 12:59 PM Signed COLORECTAL SURGERY November [...] APRN.HUSAM Colorectal Surgery Referring Provider: ARNOLD GENAO [[id number]] Allergies As of Date: 11/16/2021 (No Known Allergies) Date Reviewed: 11/16/2021 Reviewed by: Cristal Nava APRN.STAVE LOG RIPSAW OPERATOR - Fully Assessed Reason for Visit: Post [...] 07/10/2021 Hemorrho (more content not included)... Normal [facility] ANES POSTPROC EVALon 021 ANES POSTPROC EVAL HNO ID: [id number] Author: Michael Martínez MD Service: Anesthesiology Author Type: Anesthesiologist Type: Anesthesia Postprocedure Evaluation Filed: 10/17/2021 10:23 AM Note Text: POST ANESTHESIA EVALUATION NOTE : 2000 Procedure Summary Date: 10/17/21 Room / Location: [address] / [facility] Anesthesia Start: 841 Anesthesia Stop: 913 Procedure: [...] October 17, 2021 TIME: 10:23 AM CSN: [id number] [facility] ANES PRE-OPon 10-17-2021 ANES PRE-OP HNO ID: [id number] Author: Michael Martínez MD Service: Anesthesiology Author Type: Anesthesiologist Type: Anesthesia Preprocedure Evaluation Filed: 10/17/2021 8:32 AM Note Text: ANESTHESIOLOGY DAY OF SURGERY NOTE : 2000 Procedure Information Date/Time: 10/17/21729 Procedure: HEMORRHOIDECTOMY EXTERNAL > 2 COLUMNS/GROUPS (N/A ) Location: [address] / [facility] Surgeons: Arnold Genao MD Estimated body mass [...] October 17, 2021 TIME: 8:27 AM CSN: [id number] [facility] BRIEF OP NOTon 10-17-2021 BRIEF OP NOT HNO ID: [id number] Author: Jared Rowe MD Service: Colorectal Author Type: Resident Type: Brief Op Note Filed: 10/17/2021 9:15 AM Note Text: BRIEF OPERATIVE / PROCEDURE NOTE LOG ID: [id number] SURGERY/PROCEDURE DATE: 10/17/2021 INCISION/PROCEDURE START TIME: 8:55 AM INCISION CLOSE/PROCEDURE END TIME: 9:02 AM SURGEON(S)/PROCEDURALIST (S) AND EDGE INKER UPPERS(S): Surgeon(s) and Role: * Arnold Genao MD [...] DATE: October 17, 2021 TIME: 9:13 AM [facility] HISTORY PHYSICALon HISTORY PHYSICAL HNO ID: [id number] Author: Jared Rowe MD Service: Colorectal Author [...] October 17, 2021 TIME: 7:22 AM Normal [facility] OPERATIVE NOon 10-17-2021 OPERATIVE NO HNO ID: [id number] Author: Arnold Genao MD Service: Colorectal Author Type: Physician Type: Operative Report Filed: 10/30/2021 11:21 AM Note Text: [facility] - Operative Report RJ COLBERT : 2000 AGE: 21. SEX: M PATIENT TYPE: A HOSP SVC: CORS LOCATION: [facility] ATTENDING PHYSICIAN: Arnold Genao M.D. CSN NUMBER: [id number] DATE OF SURGERY/PROCEDURE: 10/17/2021 INCISION/PROCEDURE START TIME: 8:55 AM INCISION CLOSE/PROCEDURE END TIME: 9:02 AM PREOPERATIVE DIAGNOSIS: Hemorrhoids. POSTOPERATIVE DIAGNOSIS: Hemorrhoids. SURGEON: Arnold Genao M.D. EDGE INKER UPPERS: Jared. SURGERY/PROCEDURE: Ablation. ANESTHESIA: General ESTIMATED BLOOD [...] was overall very minor. Arnold Genao M.D. BC:[id number] /[id number] Normal [facility] HISTORY PHYSICALon HISTORY PHYSICAL HNO ID: [id number] Author: Zahira Heath APRN.STAVE LOG RIPSAW OPERATOR Service: ? Author Type: Nurse Practitioner Type: [...] PAT today with a caregiver from his retirement. States he is having around 5 bowel [...] fevers. Neuro: No history of TIA's, stroke, GRANT COORDINATOR tumor, impaired sensorium, hemiplegia, paraplegia or quadraplegia. No neurological symptoms or problems. Respiratory: No history of current cough or dyspnea, or pneumonia in the past 6 weeks. No history of respiratory/pulmonary symptoms or problems. Cardiovascular: No history of HTN requiring medication, no history of angina, CHF, UT, cardiac surgery or stents. Denies rest pain, [...] skills. Pulse (more content not included)... Normal [facility] CNOVon 08-31-2021 CNOV Office Visit (COFHAM ) -------- RJ COLBERT ([id number]) 2000 [place]* Date Time Provider Department 08/31/21 1:30 PM ARNOLD GENAO [facility] During your visit today, we recorded [...] Anorectal: External exam reveals : see below Supervisor Pile Driving present: yes Assessment Assessment and Plan: Rj Colbert is a 21 year old male who is doing relatively well after his recent rubber band ligation. He still has some rectal bleeding and it is difficult to assess the exact amount. If the bleeding persists we will consider internal hemorrhoidectomy. Arnold Genao MD Colorectal Surgery Referring Provider: ELHAM VAN [[id number]] Allergies As of Date: 08/31/2021 (No Known [...] Encounter Status:Closed by ARNOLD GENAO on 09/02/21 [facility] OPERATIVE NOon 07-17-2021 OPERATIVE NO HNO ID: [id number] Author: Arnold Genao MD Service: Colorectal Author Type: Physician Type: Operative Report Filed: 08/01/2021 1:12 PM Note Text: [facility] - Operative Report RJ COLBERT : 2000 AGE: 21. SEX: M PATIENT TYPE: A HOSP SVC: CORS LOCATION: [facility] ATTENDING PHYSICIAN: Arnold Genao M.D. CSN NUMBER: [id number] DATE OF SURGERY/PROCEDURE: 07/12/2021 INCISION/PROCEDURE START TIME: 10:55 AM INCISION CLOSE/PROCEDURE END TIME: 10:58 AM PREOPERATIVE DIAGNOSIS: Rectal bleeding. POSTOPERATIVE DIAGNOSIS: Rectal bleeding. SURGEON: Arnold Genao M.D. EDGE INKER UPPERS: None. SURGERY/PROCEDURE: Rubber-band ligation hemorrhoidectomy. ANESTHESIA: General [...] room in good condition. Arnold Genao M.D. BC:[id number] /[id number] [facility] 07-13-2021 [facility] Telephone ([facility]) -------- RJ COLBERT ([id number]) 2000 Genia Reyez* Date Time Provider Department 07/13/21 ARNOLD GENAO [facility] During your visit today, we recorded the following information about you: Essie Pickard Pss 07/13/2021 3:27 PM Signed Patient's caregiver called with post operative hemorrhoidectomy questions and concerns of bands falling off return call to [phone] Sara Rose ADM 07/16/2021 12:22 PM Signed Kasia, caregiver called. Patient banding undone. Called last Friday, waiting to talk to nurse about care. [phone] Nona Banks RN 07/16/2021 4:56 PM Signed [...] Encounter Status:Closed by NONA BANKS on 07/16/21 [facility] ANES POSTPROC EVALon 021 ANES POSTPROC EVAL HNO ID: [id number] Author: Jared Arriaga MD Service: Anesthesiology Author Type: Anesthesiologist Type: Anesthesia Postprocedure Evaluation Filed: 07/12/2021 12:05 PM Note Text: POST ANESTHESIA EVALUATION NOTE : 2000 Procedure Summary Date: 07/12/21 Room / Location: [address] / [facility] Anesthesia Start: 1044 Anesthesia Stop: 1110 Procedures: [...] July 12, 2021 TIME: 12:05 PM CSN: [id number] [facility] ANES PRE-OPon 07-12-2021 ANES PRE-OP HNO ID: [id number] Author: Jared Arriaga MD Service: Anesthesiology Author [...] July 12, 2021 TIME: 9:18 AM CSN: [id number] Normal [facility] HISTORY PHYSICALon HISTORY PHYSICAL HNO ID: [id number] Author: Arnold Genao MD Service: Colorectal Author [...] DATE: July 12, 2021 TIME: 10:39 AM [facility] HISTORY PHYSICALon HISTORY PHYSICAL HNO ID: [id number] Author: Zahira Ivy PA-C Service: ? Author Type: Physician Electrical Assembler Type: HANDP Filed: 07/10/2021 2:28 PM Note [...] PAT today with a caregiver from his retirement. States he is having around 5 bowel [...] fevers. Neuro: No history of TIA's, stroke, GRANT COORDINATOR tumor, impaired sensorium, hemiplegia, paraplegia or quadraplegia. No neurological symptoms or problems. + MR / DD Respiratory: No history of current cough or dyspnea, or pneumonia in the past 6 weeks. No history of respiratory/pulmonary symptoms or problems. Cardiovascular: No history of HTN requiring medication, no history of angina, CHF, UT, cardiac surgery or stents. Denies rest pain, [...] for: (more content not included)... Normal [facility] 07-05-2021 [facility] Telephone ([id number]) -------- RJ COLBERT ([id number]) 2000 M Date Time Provider Department 07/05/21 ARNOLD GENAO [id number] During your visit today, we recorded the following information about you: Sara Rose [facility] 07/05/2021 3:26 PM Signed Kasia Nurse Second Shift Supervisor at retirement where patient resides called to discuss procedure information and date. Call to discuss [phone] Sara Rose [facility] 07/06/2021 11:12 AM Signed Kasia nurse aware of 07/12 procedure date. Would like the nurse to call to advise any prep instructions other than fasting after midnight. Call Nurse Kasia mgr [phone] Cristal Nava APRN.[facility] 07/06/2021 12:27 PM Signed Call returned. Reviewed NPO after midnight and scheduled PACCs appointment. Allergies As of Date: 07/05/2021 (No Known Allergies) Date Reviewed: 06/29/2021 Reviewed by: Arnold Genao MD - Fully Assessed Reason for Visit: procedure info [Other] Cmt: discuss plan Primary Visit Diagnosis:Hemorrhoids, internal, with bleeding [K64.8] Order(s):VIRTUAL CONSULT TO [facility] [[id number]] Order #: [id number]: 1 FUTURE Prescriptions as of 07/06/2021 - [...] by CRISTAL NAVA on 07/06/21 [facility] CNOVon 06-29-2021 CNOV Office Visit (COFHAM ) -------- RJ COLBERT ([id number]) 2000 M Date Time Provider Department 06/29/21 [...] clinic today with a caregiver from his retirement. They relate that he is having around [...] (222 lb 4.8 oz) BMI 31.90 kg/m? Supervisor Pile Driving present: Yes Rj Colbert is a 21 year old male presents with complaint of rectal bleeding with prolapsing Grade 3 internal hemorrhoids on exam. Our plan is to perform an EUA and rubber band ligation of internal hemorrhoids at the [facility]. Medical Decision Making: Arnold Genao MD Colorectal Surgery Referring Provider: ELHAM VAN [[id number]] Allergies As of Date: 06/29/2021 (No Known [...] Encounter Status:Closed by ARNOLD GENAO on 06/29/21 [facility]22-20[facility] -------- RJ COLBERT ([id number]) 2000 M Date Time Provider Department 05/22/21 ARNOLD GENAO [facility] During your visit today, we recorded the following information about you: Tamiko Sweeney 05/22/2021 3:28 PM Signed Ph. [phone] Alivia, who works for [employer], was transferred to Dr. Van's office [facility]. 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 CODING DATE: 018 FINAL [facility] STATUS: Home [place]Routine [place] PAYOR: Medicaid EAPG DESCRIPTION 0390 LEVEL I [...] PROC EAPG STAT DESCRIPTION DOCTOR NAME DATE 71384 0149 Colonoscopy, flexible; Colin Shirley MD 04/17/2018 with biopsy, single or multiple 74 Discontinued [facility] Procedure After Administration of Anesthe 80041 Anesthesia for lower Colin Shirley MD 04/17/2018 intestinal endoscopic procedures, endoscope introduced distal to duodenum; not otherwise specified NOTE: The code number assigned matches the documented diagnosis and / or procedure in the patient's chart. However, the narrative phrase printed from the coding software may appear abbreviated, or result in slightly different terminology. Coded By: Sary Little Date Saved: 05/01/2018 08:02 am Normal [facility] Coding Summary. CODING DATE: 018 FINAL [facility] STATUS: Home (Routine [place]) PAYOR: [...] PROC EAPG STAT DESCRIPTION DOCTOR NAME DATE 03757 0149 Colonoscopy, flexible; Colin Shirley MD 04/17/2018 with biopsy, single or multiple 74 Discontinued [facility] Procedure After Administration of Anesthe 32725 Anesthesia for lower Colin Shirley MD 04/17/2018 intestinal endoscopic procedures, endoscope introduced distal to duodenum; not otherwise specified NOTE: The code number assigned matches the documented diagnosis and / or procedure in the patient's chart. However, the narrative phrase printed from the coding software may appear abbreviated, or result in slightly different terminology. Coded By: Sary Little Date Saved: 04/23/2018 11:46 am [facility] Progress Note-Physicianon Progress Note-Physician Patient: RJ COLBERT [...] Cardiovascular: Regular rhythm. Neurologic: Alert, Oriented. Plan [place] Society of Anesthesiologists (ASA) physical status classification: Class II. Anesthetic Preoperative Plan Anesthesia: General. . Anesthetic plan, risks, benefits, and alternatives discussed with the patient and/or family. Communication: face to face with (patient 5 minutes, Patient educated on smoking cesstation). Normal [facility] Comment on above: Result Comment: Elec tronically Signed By: Quincy Ojeda Jr, DO\.br\Date and Time Signed: 04/28/18 08:15 EDT Main OR Intraoperative Recor don 04-20-2018 Main OR Intraoperative Record IntraOp Document Type FT Summary Primary Physician: Colin Shirley MD Finalized Date/Time: 04/20/18 09:38:35 Pt. Name: RJ COLBERT/Sex: 2000 Male Med Rec #: [id number] Physician: Colin Shirley MD Financial #: [id number] Pt. Type: O Room/Bed: / Admit/Disch: 04/17/18 09:21:54 - 04/17/18 23:59:59 Institution: Case Times FT Entry 1 Patient Times In Room 04/17/18 13:14:00 Out Room 04/17/18 13:32:00 Procedure Times Start 04/17/18 13:18:00 Stop 04/17/18 13:29:00 Anesthesia Times Start 04/17/18 13:14:00 Stop 04/17/18 13:32:00 Last Modified By: Addie Oreilly CST 04/17/18 13:32:23 General Comments: 04/20/2018 Chart opened to review and send charges Marika Pineda SKIVER WELT END Case Attendance FT Entry 1 Entry 2 Entry 3 Case Attendee Casper GAUTAM, Colin Rene RN, Ashlee Boyd CST, Tori Role Performed Surgeon - Primary Station Chief - Primary Scrub - Primary Time In [...] Scrub - Other Scrub - Other Anesthesiologist Electrical Assembler Time In 04/17/18 13:14:00 04/17/18 13:14:00 04/17/18 [...] CAA, Yvonne Briggs, Oliver ZARATE, Stas Valle Adjunct English Instructor, Jelani Bess Kirstyn K Time Out Complete [...] and tissue Entry 1 Skin Integrity Intact, Seeley, Warm, and Skin Abnormality No Dry Outcomes [...] RN Patient Status Stable Skin. Condition Intact, Seeley, Warm, and Dry Airway Maintenance Oxygen in Use? No Airway Device N/A Outcomes Met? 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 Administration FT Pre-Care Text: Verifies allergies, administers [...] 13:32 Addie Oreilly CST 04/20/18 09:38 Normal [facility] History and Physicalon 04-17 History and Physical Date: 03/10/2018 2:15 PMPatient Name: Rj ColbertAccopallavi #: [id number]: MaleDOB (age): 2000 (17)Provider: Annie Benton Complaint: Change in Bowel habits Blood in StoolHistory of Present Illness:17 years old -[place] male with multiple psychiatric problems, lives in a retirement, referred to me to be evaluatedfor rectal [...] stool incontinence, stomachPrinted on 04/10/2018 Rj Colbert, 10582, 2000 Page 1 of 4Printed on 04/10/2018 Rj oClbert, 09362, 1998cramps, straining. Denies abdominal pain, abdominal swelling, [...] up blood.Vital Signs:BP(mmHg)Pulse(ppm) Rhythm Weight (lbs/oz) Resp/min Zbmq077/68 82 Regular 191 / 12 98.3 (F)Physical [...] hemorrhageConstipationPl an: Colonoscopy will be performed at [facility] .Printed on 04/10/2018 [place], 2000 Page 2 of 4Printed on 04/10/2018 Rj Colbert, 70340, 2000Risk & Medical Necessity: Diagnosis and management options are Extensive. The amount of data reviewedand/or ordered is Moderate. The level of risk is Moderate.Colin Shirley MD Rj Colbert, 42423, 2000 Page 3 of 4Printed on 04/10/2018 Rj Colbert, 57564, 1998Printed on 04/10/2018 Rj Colbert, 73737, 2000 Page 4 of 4Printed on 04/10/2018 Rj Colbert, 55320, 1998no change Normal [facility] Comment on above: Result Comment: Elec tronically Signed By: Colin Shirley MD\.br\Date and Time Signed: 04/17/18 13:15 EDT Inpatient Patient Summaryon 04-17-2018 Inpatient [facility] InstructionsPERSON INFORMATION Name: RJ COLBERT PHYSICIANS Admitting Physician: Javier Shirley MD Physician: Colin Shirley MD PCP: Murphy WEISS MD Diagnosis: Rectal prolapse Comment: PATIENT EDUCATION INFORMATIONInstructions: Medication Leaflets:Follow up:With: Address: When: [facility], [address] [place] [address] Business (1) Within 1 to 2 weeks MEDICATION LISTComment: Irlanda [facility] Main OR PACU I Recordon 03-28 Main OR PACU I Record PACU Phase I Document Type FT Summary Primary Physician: Colin Shirley MD Finalized Date/Time: 04/17/18 14:14:33 Pt. Name: RJ COLBERT /Sex: 2000 Male Med Rec #: [id number] Physician: Colin Shirley MD Financial #: [id number] Pt. Type: O Room/Bed: / Admit/Disch: 04/17/18 [...] By: Essie Guzman RN 04/17/18 14:14 Normal [facility] Main OR Preoperative Recordo n 04-17-2018 Main OR Preoperative Record Holding Area Document Type FT Summary Primary Physician: Colin Shirley MD Finalized Date/Time: 04/17/18 09:56:12 Pt. Name: SASCHA COLBERTGenia TrimbleB./Sex: 2000 Male Med Rec #: [id number] Physician: Colin Shirley MD Financial #: [id number] Pt. Type: O Room/Bed: / Admit/Disch: 04/17/18 [...] Signed By: Viki James RN 04/17/18 09:56 [facility] Patient Education - Texton 0 04-17-2018 Patient Education - Text [facility] Coding Summary.on 04-02-2018 Coding Summary. CODING DATE: 018 [facility] STATUS: Home (Routine [place]) PAYOR: Medicaid EAPG [...] PROC EAPG STAT DESCRIPTION DOCTOR NAME DATE 84657 0133 Sigmoidoscopy, flexible; Colin Shirley MD 03/30/2018 with biopsy, single or multiple 74 Discontinued [facility] Procedure After Administration of Anesthe 31963 Anesthesia for lower Colin Shirley MD 03/30/2018 intestinal endoscopic procedures, endoscope introduced distal to duodenum; not otherwise specified NOTE: The code number assigned matches the documented diagnosis and / or procedure in the patient's chart. However, the narrative phrase printed from the coding software may appear abbreviated, or result in slightly different terminology. Coded By: Sary Little Date Saved: 04/02/2018 04:16 pm [facility] Progress Note-Physicianon Progress Note-Physician Patient: RJ COLBERT [...] Cardiovascular: Regular rhythm. Neurologic: Alert, Oriented. Plan [place] Society of Anesthesiologists (ASA) physical status classification: Class II. Anesthetic Preoperative Plan Anesthesia: General. . Anesthetic plan, risks, benefits, and alternatives discussed with the patient and/or family. Communication: face to face with (patient 5 minutes, Patient educated on smoking cesstation). Normal [facility] Comment on above: Result Comment: Elec tronically Signed By: Quincy Ojeda Jr, DO\Date and Time Signed: 04/01/18 07:53 EDT History and Physicalon 03-30 History and Physical Date: 03/10/2018 2:15 PMPatient Name: Rj Lepe #: [id number]: MaleDOB (age): 2000 (17)Provider: Annie Benton Complaint: Change in Bowel habits Blood in StoolHistory of Present Illness:17 years old -[place] male with multiple psychiatric problems, lives in a retirement, referred to me to be evaluatedfor rectal [...] stool incontinence, stomachPrinted on 03/26/2018 Rj Colbert, 69564, 2000 Page 1 of 4Printed on 03/26/2018 Rj Colbert, 83664, 1998cramps, straining. Denies abdominal pain, abdominal swelling, [...] up blood.Vital Signs:BP(mmHg)Pulse(ppm) Rhythm Weight (lbs/oz) Resp/min Bwjm866/68 82 Regular 191 / 12 98.3 (F)Physical [...] hemorrhageConstipationPl an: Colonoscopy will be performed at [facility] .Printed on 03/26/2018 Rj Colbert 76190, 2000 Page 2 of 4Printed on 03/26/2018 Rj Colbert 43511, 2000Risk & Medical Necessity: Diagnosis and management options are Extensive. The amount of data reviewedand/or ordered is Moderate. The level of risk is Moderate.Colin Shirley MD Rj Colbert 85029, 2000 Page 3 of 4Printed on 03/26/2018 Rj Colbert 44619, 1998Printed on 03/26/2018 Rj Colbert 15490, 2000 Page 4 of 4Printed on 03/26/2018 Rj Colbert, 64771, 2000No change Normal [facility] Comment on above: Result Comment: Elec tronically Signed By: Colin Shirley MD\.br\Date and Time Signed: 03/30/18 10:52 EDT Inpatient Patient Summaryon 03-30-2018 Inpatient Patient Summary [facility]Clinical Dis[facility] InstructionsPERSON INFORMATION Name: RJ COLBERT PHYSICIANS Admitting Physician: Debbi Shirley MDending Physician: Colin Shirley MD PCP: Murphy WEISS MD Diagnosis: Internal hemorrhoids Comment: PATIENT EDUCATION INFORMATIONInstructions: Medication Leaflets:Follow up:With: Address: When: [facility], [address] [place] [address], [place] [phone] Business (1) Within 1 to 2 weeks MEDICATION LISTComment: Normal [facility] Main OR Intraoperative Recor don 03-30-2018 Main OR Intraoperative Record IntraOp Document Type FT Summary Primary Physician: Colin Shirley MD Finalized Date/Time: 03/30/18 11:37:17 Pt. Name: RJ COLBERT /Sex: 2000 Male Med Rec #: [id number] Physician: oClin Shirley MD Financial #: [id number] Pt. Type: O Room/Bed: / Admit/Disch: 03/30/18 [...] Boyd CST, Tori Role Performed Anesthesiologist of Station Chief - Primary Scrub - Primary Record Time In 03/30/18 10:56:00 03/30/18 10:56:00 03/30/18 10:56:00 Time Out 03/30/18 11:13:00 03/30/18 11:13:00 03/30/18 11:13:00 Procedure COLONOSCOPY(.) COLONOSCOPY(.) COLONOSCOPY(.) Comments Last Modified By: Paul RN, Francy Miller RN, Francy Miller RN, Francy Gregory 03/30/18 11:14:48 03/30/18 11:14:48 03/30/18 11:14:48 Entry 4 Entry 5 Case Attendee Casper GAUTAM, Colin [facility] Tech, Magi Briggs Role Performed Surgeon - [...] Participants Paul TREVINO, Casper Toussaint MD, Colin [place] Adjunct English Instructor, Oliver Bess CST, Tori Time Out Complete [...] and tissue Entry 1 Skin Integrity Intact, Seeley, Warm, and Skin Abnormality No Dry Outcomes [...] RN Patient Status Stable Skin. Condition Intact, Seeley, Warm, and Dry Airway Maintenance Oxygen in Use? No Airway Device N/A Outcomes Met? 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 Yes Verified Last Modified By: Francy Miller RN 03/30/18 07:37:26 Post-Care Text: The patient received appropriate medication(s) safely administered during the perioperative period For [place] please see scanned medication reconcilliation form for [...] 11:14 Addie Oreilly CST 03/30/18 11:37 Normal [facility] Main OR PACU I Recordon Main OR PACU I Record PACU Phase I Document Type FT Summary Primary Physician: Colin Shirley MD Finalized Date/Time: 03/30/18 11:29:28 Pt. Name: RJ COLBERT /Sex: 2000 Male Med Rec #: [id number] Physician: Colin Shirley MD Financial #: [id number] Pt. Type: O Room/Bed: / Admit/Disch: 03/30/18 [...] By: Essie Guzman RN 03/30/18 11:29 Normal [facility] Main OR Preoperative Recordo n 03-30-2018 Main OR Preoperative Record Holding Area Document Type FT Summary Primary Physician: Colin Shirley MD Finalized Date/Time: 03/30/18 10:16:59 Pt. Name: RJ COLBERT/Sex: 2000 Male Med Rec #: [id number] Physician: Colin Shirley MD Financial #: [id number] Pt. Type: O Room/Bed: / Admit/Disch: 03/30/18 [...] By: Kathleen Gómez RN 03/30/18 10:16 Normal [facility] Patient Education - Texton 0 03-30-2018 Patient Education - Text [facility] Progress Note-Physicianon Progress Note-Physician Patient: RJ COLBERT [...] vomiting. Plan Transfer/ Discharge: Condition stable. Normal [facility] Comment on above: Result Comment: Elec tronically Signed By: Rusty Fagan DO, Quincy Gregory\.karen\Date and Time Signed: 03/30/18 11:55 EDT Vital Signs Date Time Vital Sign Value Performing Clinician Faci lity 01-26-2024 14:240400 Body height 177.8 cm Reynold Kuo MD Work Phone: [facility] 01-26-2024 14:24-0400 Body mass index (BMI) [Ratio] 25.75 kg/m2 Reynold Kuo MD Work Phone: [facility] 01-26-2024 14:240400 Body weight 81.4 kg Reynold Kuo MD Work Phone: [facility] 03-28-2022 11:11-0400 Body height 180.3 cm Arnold Genao MD Work Phone: [facility] 03-28-2022 11:11-0400 Body weight 90.27 kg Arnold Genao MD Work Phone: [facility] 03-28-2022 11:11-0400 Diastolic blood pressure 65 mm[Hg] Arnold Genao MD Work Phone: [facility] 03-28-2022 11:11-0400 Heart rate 80 /min Arnlod Genao MD Work Phone: [facility] 03-28-2022 11:11-0400 SaO2% (BldA) [Mass fraction] 100 % Arnold Genao MD Work Phone: [facility] 03-28-2022 11:11-0400 Systolic blood pressure 108 mm[Hg] Arnold Genao MD Work Phone: [facility] Encounters Encounter Date Encounter Type Care Provider Facility Start: 07-14-2024 End: 07-14-2024 ambulatory BENSON WEISS Not Available Start: 04-08-2024 ambulatory Jean Carlos Boudreaux acility:[facility] Start: 01-26-2024 End: 01-26-2024 ambulatory REYNOLD KUO [facility] Start: 01-26-2024 End: 01-26-2024 Postop follow up visit related to original px Reynold Kuo MD Work Phone: [facility] Comment on above: Rectal prolapse (Charlee hortensia Dx) Start: 01-10-2024 End: 01-10-2024 Evaluation and management of inpatient JOHN MILLER [facility] Start: 01-09-2024 End: 01-10-2024 Evaluation and management of inpatient BENSON WEISS [facility] Start: 01-08-2024 End: 01-08-2024 Emergency department patient visit BENSON WEISS [facility] Start: 01-07-2024 End: 01-07-2024 ambulatory BENSON WEISS [...] y Dx) Start: 04-17-2018 End: 04-18-2018 Ambulatory [facility] Facility:[facility] [place] Start: 03-30-2018 End: 03-31-2018 [facility] Facility:[facility] Plan of Treatment Date Care Activity Detail Author Start: 08-05-2029 DTaP,Tdap and Td Vaccines (8 - Td or Tdap) DTaP,Tdap and Td Vaccines (8 - Td or Tdap) [facility] Start: 01-25-2025 Adult BMI Screening Adult BMI Screening [facility] Start: 01-25-2025 Tobacco Screening Tobacco Screening [facility] Start: 06-27-2024 Influenza vaccination Influenza Vaccine [facility] Start: 06-27-2023 COVID-19 Vaccine ( season) COVID-19 Vaccine () [facility] Start: 2017 Urine microalbumin profile DTAP,TDAP,TD (1 - Tdap) [facility] Start: 2016 Adult BMI Follow Up Plan Adult BMI Follow Up Plan [facility] Start: 2016 HEPATITIS C SCREENING HEPATITIS C SCREENING [facility] Start: 2016 HIV SCREENING HIV SCREENING [facility] Start: 2012 PEDS TO ADULT TRANSITION ANNUAL ASSESSMENT PEDS TO ADULT TRANSITION ANNUAL ASSESSMENT [facility] Start: 2010 Adult depression screening assessment DEPRESSION SCREENING [facility] Start: 2010 PEDS TO ADULT TRANSITION INITIAL DISCUSSION PEDS TO ADULT TRANSITION INITIAL DISCUSSION [facility] Start: 2009 HPV VACCINE (1 - Male 2-dose series) HPV VACCINE (1 - Male 2-dose series) [facility] Start: 2008 MENINGOCOCCAL B: Consider based on risk (1 of 2 - Risk Bexsero 2-dose series) MENINGOCOCCAL B: Consider based on risk (1 of 2 - Risk Bexsero 2-dose series) [facility] Immunizations Immunization Date Immunization Notes Care Provider Fa cility 12-08-2020 COVID-19, mRNA, LNP- S, PF, 30mcg/0.3mL Dose Reynold Kuo MD Work Phone: [facility] 11-17-2020 COVID-19, mRNA, LNP- S, PF, 30mcg/0.3mL Dose Reynold Kuo MD Work Phone: [facility] 08-31-2020 influenza, injectabl e, quadrivalent, preservative free Reynold Kuo MD Work Phone: [facility] 08-31-2020 influenza virus vacc ine, unspecified formulation Reynold Kuo MD Work Phone: [facility] 08-18-2019 influenza, injectabl e, quadrivalent, preservative free Reynold Kuo MD Work Phone: [facility] 08-05-2019 tetanus toxoid, redu diamond diphtheria toxoid, and acellular pertussis vaccine, adsorbed Reynold Kuo MD Work Phone: [facility] 12-02-2017 tetanus toxoid, redu diamond diphtheria toxoid, and acellular pertussis vaccine, adsorbed Reynold Kuo MD Work Phone: [facility] 08-21-2017 influenza, injectabl e, quadrivalent, preservative free Reynold Kuo MD Work Phone: [facility] 08-28-2016 influenza, injectable,quadrivalent, preservative free, pediatric Reynold Kuo MD Work Phone: [facility] 08-28-2016 meningococcal polysaccharide (groups A, C, Y and W-135) diphtheria toxoid conjugate vaccine (MCV4P) Reynold Kuo MD Work Phone: [facility] 08-16-2015 influenza, seasonal, injectable Reynold Kuo MD Work Phone: [facility] 08-07-2011 tetanus toxoid, redu diamond diphtheria toxoid, and acellular pertussis vaccine, adsorbed Reynold Kuo MD Work Phone: [facility] 08-17-2008 hepatitis A vaccine, pediatric/adolescent dosage, 2 dose schedule Reynold Kuo MD Work Phone: [facility] 02-02-2008 hepatitis A vaccine, pediatric/adolescent dosage, 2 dose schedule Reynold Kuo MD Work Phone: [facility] 02-02-2008 varicella virus vaccine Edwin Kuo MD Work Phone: [facility] 01-18-2005 diphtheria, tetanus toxoids and acellular pertussis vaccine Reynold Kuo MD Work Phone: [facility] 07-18-2004 DTaP-hepatitis B and poliovirus vaccine Reynold Kuo MD Work Phone: [facility] 07-17-2004 measles, mumps and rubella virus vaccine Reynold Kuo MD Work Phone: [facility] 02-08-2003 diphtheria, tetanus toxoids and acellular pertussis vaccine, unspecified formulation Reynold Kuo MD Work Phone: [facility] 02-08-2003 haemophilus influenz ae type b vaccine, conjugate unspecified formulation Reynold Kuo MD Work Phone: [facility] 02-08-2003 hepatitis B vaccine, pediatric or pediatric/adolescent dosage Reynold Kuo MD Work Phone: [facility] 02-08-2003 measles, mumps and rubella virus vaccine Reynold Kuo MD Work Phone: [facility] 02-08-2003 poliovirus vaccine, unspecified formulation Reynold Kuo MD Work Phone: [facility] 02-08-2003 varicella virus vaccine Edwin Kuo MD Work Phone: [facility] 1998 diphtheria, tetanus toxoids and acellular pertussis vaccine, unspecified formulation Reynold Kuo MD Work Phone: [facility] 1998 haemophilus influenz ae type b vaccine, conjugate unspecified formulation Reynold Kuo MD Work Phone: [facility] 1998 poliovirus vaccine, unspecified formulation Reynold Kuo MD Work Phone: [facility] 1998 hepatitis B vaccine, pediatric or pediatric/adolescent dosage Reynold Kuo MD Work Phone: [facility] 1998 hepatitis B vaccine, pediatric or pediatric/adolescent dosage Reynold Kuo MD [facility] Payers Date Payer Category Payer Medicaid [id number] 2023 Self-pay 2021 Medicaid MEDICAID [facility] MEDICAID [id number] 2021-Present [phone] [address] [place] [address] Medicaid [id number] 2018 Medicare MEDICARE MEDICAR E A AND B [id number] 2018-Present [phone] [address] [address] [place] [address] Medicare [id number] 2018 Medicare MEDICARE MEDICAR E PART A & B [id number] 2018-Present [phone] [address] [place] [address] [id number] 2018 Medicaid [place] EDICAID [id number] 2018-Present [phone] [address] [place] [address] [id number] 1998 Unknown [id number] 1998 Unknown [id number] 2.16.840.1.210089.3.579.2.593 1998 Unknown [id number] 2.16.840.1.348788.3.579.2.593 1998 Unknown [id number] 2.16.840.1.736445.3.579.2.593 1998 Unknown [id number] 2.16.840.1.547459.3.579.2.593 1998 Unknown [id number] 2.16.840.1.323867.3.579.2.593 1998 Unknown [id number] 2.16.840.1.843436.3.579.2.593 1998 Unknown [id number] 2.16.840.1.285906.3.579.2.593 1998 Unknown [id number] 2.16.840.1.885067.3.579.2.593 1998 Unknown [id number] 2.16.840.1.396223.3.579.2.593 1998 Unknown [id number] 2.16.840.1.541376.3.579.2.593 1998 Unknown [id number] 2.16.840.1.805830.3.579.2.593 1998 Unknown [id number] 2.16.840.1.536496.3.579.2.1286 1998 Unknown [id number] 2.16.840.1.498121.3.579.2.1286 1998 Unknown [id number] 2.16.840.1.009353.3.579.2.1286 1998 Unknown [id number] 2.16.840.1.532444.3.579.2.1286 1998 Unknown [id number] 2.16.840.1.521520.3.579.2.1286 1998 Unknown [id number] 2.16.840.1.971430.3.579.2.1259 1998 Unknown [id number] 2.16.840.1.655745.3.579.2.1259 1959 Medicaid [id number] 1961 Medicare [id number] Social History Date Type Detail Facility Start: 03-01-2015 End: 01-26-2024 Tobacco smoking status NHIS Never smoked tobacco [facility] Start: 03-01-2015 End: 01-26-2024 Tobacco use and exposure Smokeless tobacco non-user [facility] Start: 03-28-2022 Alcohol intake Current non-dr mail examiner of alcohol (finding) [facility] Start: 2000 Sex Assigned At Not on file [facility] Start: 03-18-2022 End: 03-28-2022 Exposure to SARS-CoV-2 (event) Not sure [facility] Start: 01-26-2024 Alcohol intake Lifetime non-d juan (finding) [facility] Start: 11-20-2020 End: 01-09-2024 History of Social function [facility] Start: 11-20-2020 End: 01-09-2024 [facility] Utilities [facility] Has the electric, [employer], oil, or water company threatened to shut off services in your home in past 12Mo No [facility] How often to you hav e a drink containing alcohol? Never [facility] How many standard drinks containing alcohol do you have on a typical day? Patient does not drink [facility] Goals Date Patient Goal Desired Activity /State Personal health goal Comment on above: Formatting of this n ote might be different from the original. Evaluation of progress towards goal: Soren Conner, back to retirement. Clinical Notes 06-29-2021 to 01-26-2024 Reynold Kuo MD - 01/26/2024 3:15 PM EDTTelephone Encounter - Charley Mcclelland RN - 03/28/2022 4:13 PM EDTTelephone Encounter - Sara BAEZA - 03/28/2022 3:43 PM EDT Note Date & Type Note Facility 01-26-2024 History of Presen t illness Narrative Images from the original note were not included. [facility] Colorectal Surgery [address] [place] [id number] Patient: Rj Colbert Date of : 2000 Encounter Date: 01/26/2024 History of Present Illness: The patient is 23 y.o. male and presents for postoperative follow-up s/p repair of rectal prolapse. Patient presented with incarcerated prolapse. He underwent Altemeier procedure. Patient now follows up. Patient is accompanied by hadoop engineer. He is doing well. He denies any [...] Reynold Kuo MD documented in this encounter [facility] 03-28-2022 Miscellaneous Notes Spoke with the pharmacist and she states that she does not provide food items. She will speak with the nurse at the retirement. Pharmacy, [facility], [facility], phone , any pharmacist to clarify about carbonate? CALM is retirement able to order as food item? Please call to discuss. documented in this encounter [facility] 03-28-2022 Miscellaneous Notes Opened in error documented in this encounter [facility] 03-28-2022 Miscellaneous Notes Addended by: ARNOLD GENAO on: 03/28/2022 03:11 PM Modules accepted: Orders Addended by: CHARLEY MCCLELLAND on: 03/28/2022 02:47 PM Modules accepted: Orders documented in this encounter [facility] 03-28-2022 Note HNO ID: [id number] Author: Arnold Genao MD Service: ? Author Type: Physician Type: Progress Notes Filed: 03/28/2022 11:58 AM Note Text: COLORECTAL SURGERY March 28, 2022 Rj Colbert 21 year old Chief Complaint: hematochezia History of Present Illness: Rj Colbert is a 21 year old male presents to the office for evaluation of hematochezia. Last seen in the office on 11/16/21 with Cristal Nava GARNETT MACHINE OPERATOR for follow up visit after he [...] exam Anorectal: External exam reveals: see below Supervisor Pile Driving present: yes Assessment Assessment and Plan: Rj Colbert is a 21 year old male with straining and occasional rectal bleeding. Today, we talked about adding a magnesium supplement CALM to his regimen to decrease straining. I am of the opinion that more surgery is not the best option at this time. Arnold Genao MD Colorectal Surgery [facility] 03-28-2022 Nurse Note Calm education given for constipation. What is the reason for your visit today? Established patient presents for hematochezia. Who is your referring physician? Are you having poor oral intake? NO Have you had unintentional weight loss of 15 lbs/7 Kg in the last 3-6 months? NO Bowels: regular Wound: None Temperature: No Drains: No documented in this encounter [facility] 03-28-2022 History of Presen t illness [...] exam Anorectal: External exam reveals: see below Supervisor Pile Driving present: yes Assessment Assessment and Plan: Rj Colbert is a 21 year old male with straining and occasional rectal bleeding. Today, we talked about adding a magnesium supplement CALM to his regimen to decrease straining. I am of the opinion that more surgery is not the best option at this time. Arnold Genao MD Colorectal Surgery documented in this encounter [facility] 11-16-2021 Note HNO ID: [id number] Author: Cristal Nava APRN.[employer] RIPSAW OPERATOR Service: ? Author Type: Nurse Practitioner Type: [...] results with patient and POA. Cristal Nava APRN.[facility] Colorectal Surgery [facility] 10-17-2021 Note HNO ID: [id number] Author: Hunter Massey APRN.CRNA Service: Anesthesiology Author Type: Nurse Potable Water Treatment Operator Type: Anesthesia Procedure Notes Filed: 10/17/2021 8:55 AM Note Text: ANESTHESIOLOGY PROCEDURE NOTE Airway General Information Procedure Start Time/Medication Administration: 10/17/2021 8:49 AM Patient location during procedure: OR Timeout Performed Pre-procedure: timeout performed Consent Obtained: Yes Patient identity confirmed: arm band, care service team leader and patient Staffing Anesthesiologist: Michael Martínez MD EMPLOYMENT PROGRAM REPRESENTATIVE: Hunter Massey APRN.EMPLOYMENT PROGRAM REPRESENTATIVE Performed by: SAMAN Indications and Patient Condition [...] October 17, 2021 TIME: 8:54 AM CSN: [id number] [facility] 08-31-2021 Note HNO ID: [id number] Author: Arnold Genao MD Service: ? Author Type: Physician Type: Progress Notes Filed: 09/02/2021 7:18 AM Note Text: COLORECTAL SURGERY August 31, 2021 Rj Colbetr 21 year old Chief Complaint: post op [...] Anorectal: External exam reveals : see below Supervisor Pile Driving present: yes Assessment Assessment and Plan: Rj Colbert is a 21 year old male who is doing relatively well after his recent rubber band ligation. He still has some rectal bleeding and it is difficult to assess the exact amount. If the bleeding persists we will consider internal hemorrhoidectomy. Arnold Genao MD Colorectal Surgery [facility] 07-12-2021 Note HNO ID: [id number] Author: Shanthi Chapman APRN.EMPLOYMENT PROGRAM REPRESENTATIVE Service: Anesthesiology Author Type: Nurse Potable Water Treatment Operator Type: Anesthesia Procedure Notes Filed: 07/12/2021 10:54 AM Note Text: ANESTHESIOLOGY PROCEDURE NOTE Airway General Information Procedure Start Time/Medication Administration: 07/12/2021 10:48 AM Patient location during procedure: OR Patient identity confirmed: arm band, care service team leader and patient Staffing EMPLOYMENT PROGRAM REPRESENTATIVE: Shanthi Chapman APRN.EMPLOYMENT PROGRAM REPRESENTATIVE Performed by: SAMAN Indications and Patient Condition [...] no Airway not difficult SIGNATURE: Shanthi Chapman APRN.EMPLOYMENT PROGRAM REPRESENTATIVE PATIENT NAME: Rj Colbert DATE: July 12, 2021 TIME: 10:53 AM CSN: [id number] [facility] 06-29-2021 Note HNO ID: [id number] Author: Arnold Genao MD Service: ? 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 They relate that he is having around [...] (222 lb 4.8 oz) BMI 31.90 kg/m? Supervisor Pile Driving present: Yes Rj Colbert is a 21 year old male presents with complaint of rectal bleeding with prolapsing Grade 3 internal hemorrhoids on exam. Our plan is to perform an EUA and rubber band ligation of internal hemorrhoids at the [facility]. Medical Decision Making: Arnold Genao MD Colorectal Surgery [facility] Evaluation note Diagnosis Hematochezia- Primary Blood in stool [facility] Rectal prolapse- Primary [facility]Not on filedocumented in this encounter [facility] Summary Purpose Family History No Family History Records FoundNo Family History Records FoundNo Family History Records FoundNo Family History Records FoundNo Family History Records FoundNo Family History Records FoundNo Family History Records FoundNo Family History Records Found Advance Directives No Advanced Directives Records FoundDocuments on File Type Date Recorded Patient Concrete Rubber Expl anation Advance Directive(s) 07/09/2021 9:04 AM [...] section and content) DATE CREATED AUTHOR 05/01/2018 [facility] DATE CREATED AUTHOR AUTHOR'S ORGANIZ ATION 10/31/2021 [facility] DATE CREATED AUTHOR AUTHOR'S ORGANIZ ATION 03/29/2022 [facility] DATE CREATED AUTHOR AUTHOR'S ORGANIZ ATION 04/04/2023 [facility] DATE CREATED AUTHOR AUTHOR'S ORGANIZ ATION 01/10/2024 [facility] DATE CREATED AUTHOR AUTHOR'S ORGANIZ ATION 01/27/2024 [facility] DATE CREATED AUTHOR AUTHOR'S ORGANIZ ATION 04/09/2024 [facility] DATE CREATED AUTHOR AUTHOR'S ORGANIZ ATION 07/16/2024 [facility] EPIC Source Comments (unrecognize d section and content) In the event this informatio n is protected by the Federal Confidentiality of Alcohol and Drug Abuse Patient Records regulations: The Federal rules restrict any use of the information to criminally investigate or prosecute any alcohol or drug abuse patient.[facility] the event this information is protected by the Federal Confidentiality of Alcohol and Drug Abuse Patient Records regulations: The Federal rules restrict any use of the information to criminally investigate or prosecute any alcohol or drug abuse patient.[facility] the event this information is protected by the Federal Confidentiality of Alcohol and Drug Abuse Patient Records regulations: The Federal rules restrict any use of the information to criminally investigate or prosecute any alcohol or drug abuse patient.[facility] Reason for Visit (unrecogniz ed section and content) Reason Comments Established Patient Follow-Up Rectal Bleeding Reason Comments Opened In Error no documentation-err or Reason Comments Medication Problem magnesium carbonate? vs? CALM Reason Comments Post-op 2 week Care Teams (unrecognized sec tion and content) Transportation Economics Teacher Relationship Specialty Start Date End Date Benson Weiss MD [address] [place] [address] PCP - General Family Medicine 01/08/24 FOR [...] BE BASED ON THE PRIMARY CLINICAL RECORDS. [facility]. provides no warranty or guarantee of the accuracy or completeness of information in this document.
[2024-07-23 16:47] LABS: Basophils Percent Auto 0.4 % (0.2-2.0); Eosinophils Percent Auto 0.4 % (0.9-7.0); Hematocrit 38.7 % (42.0-54.0); Hemoglobin 10.5 g/dL (14.0-18.0); Immature Granulocytes Abs Auto 0.01 10^3/uL (0.00-0.03); Immature Granulocytes Pct Auto 0.2 % (0.0-0.5); Lymphocytes Absolute Auto 1.8 10^3/uL (1.2-3.8); Lymphocytes Percent Auto 31.6 % (20.5-60.0); Mean Corpuscular HGB Conc 27.1 g/dL (29.9-35.2); Mean Corpuscular Hemoglobin 17.5 pg (25.9-34.0); Mean Corpuscular Volume 64.4 fL (80.0-94.0); Mean Platelet Volume 9.2 fL (9.5-13.5); Monocytes Absolute Auto 0.7 10^3/uL (0.3-0.8); Monocytes Percent Auto 11.5 % (1.7-12.0); Neutrophils Absolute Auto 3.2 10^3/uL (1.4-6.5); Neutrophils Percent Auto 55.9 % (43.0-75.0); Platelet Count 284 10^3/uL (150-450); Red Blood Count 6.01 10^6/uL (4.70-6.10); Red Cell Distribution Width 22.1 % (11.0-15.0); White Blood Count 5.7 10^3/uL (4.0-11.0)
== END 2024-07-23 16:30 | disposition home or self-care (01) ==
PROVIDERS: PCP Family Medicine
DX: Z79.899 Other long term (current) drug therapy (principal)
CPT/HCPCS: 36415; 85025

== ENCOUNTER 2024-08-18 16:04 | Outpatient (OUT) | payer MEDICARE, MEDICAID, SELFPAY ==
--- OUTSIDE RECORDS SUMMARY | 2024-08-18 16:15 | XMS_ITS | CCD ---
Author Organization [facility] Care Team Providers [employer] Counterperson Name Role Phone Salam, Shaw Unavailable Unavailable Salam, Shaw Unavailable Unavailable Salam, Shaw Unavailable Unavailable NADERERBENSON~[phone] UNKNOWN Unavailable Unavailable Salam, Shaw Unavailable Unavailable Salam, Shaw Unavailable Unavailable Salam, Shaw Unavailable Unavailable NADERER BENSON~[phone] UNKNOWN Unavailable Unavailable Unavailable Primary Care Provider [...] Medication Allergies] Propensity to adverse reactions (disorder) [facility] Repository Medications Current Medications Medication Drug Class(es) [...] Take 2 tablets by mo [facility] every 6 hours. benztropine mesylate 2 mg [...] Start: 10-17-2021 take 2 tablets by mo [facility] every four hours as needed ibuprofen (MOTRIN) 200 mg tablet Take 2 tablets by mouth every 4 hours as needed for pain. 0 10/17/2021 Active Comment on above: Take 2 tablets by mo [facility] every 4 hours as needed for pain. [...] mouth nightly. 0 Active polyethylene glycol 3350 38991 mg powder for oral solution (4 sources) [...] Comment on above: [facility]. 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; Translations: [OTH FCI CURRENT [...] Anion gap [Moles/Vol] 8 mmol/L Normal 5-15 [facility] Comment on above: Performed By: #### C ANDRES BRYANT, 46565-5 #### [facility] ([id number]) [address], [address] [place] [address] Calcium [Mass/Vol] 8.5 mg/dL Normal 8.5-10.5 [facility] Comment on above: Performed By: #### C MANNY BMP, 55431-3 #### [facility] ([id number]) [address], [address] [place] [address] Chloride [Moles/Vol] 106 mmol/L Normal 98-109 [facility] Comment on above: Performed By: #### C MANNY BMP, 11332-8 #### [facility] ([id number]) [address], [address] [place] [address] CO2 [Moles/Vol] 28 mmol/L Normal 22-32 [facility] Comment on above: Performed By: #### C ANDRES BRYANT, #### [facility] ([id number]) [address], [address] [place] [address] Creatinine [Mass/Vol] 0.93 mg/dL Normal 0.60-1.30 [facility] Comment on above: Result Comment: METH OD TRACEABLE TO IDMS STANDARD Performed By: #### C ANDRES BRYANT, #### [facility] ([id number]) [address], [address] [place] [address] eGFR (CKD-EPI) NON-RACE DEPENDENT >90 Normal >59 [facility] Comment on above: Result Comment: Reported eGFR is based on the CKD-EPI 2020 equation that does not use a race coefficient. Performed By: #### C ANDRES BRYANT, #### [facility] ([id number]) [address], [address] [place] [address] Glucose [Mass/Vol] 87 mg/dL Normal 65-99 [facility] Comment on above: Performed By: #### C ANDRES BRYANT, #### [facility] ([id number]) [address], [address] [place] [address] Potassium [Moles/Vol] 3.9 mmol/L Normal 3.5-5.0 [facility] Comment on above: Performed By: #### C ANDRES BRYANT, #### [facility] ([id number]) [address], [address] [place] [address] Sodium [Moles/Vol] 142 mmol/L Normal 134-146 [facility] Comment on above: Performed By: #### C ANDRES BRYANT, #### [facility] ([id number]) [address], [address] [place] [address] Urea nitrogen [Mass/Vol] 13 mg/dL Normal 5-23 [facility] Comment on above: Performed By: #### C ANDRES BRYANT, #### [facility] ([id number]) [address], [address] [place] [address] CBC AND AUTO DIFFon 01-10-20 24 ABSOLUTE BASOPHIL 0.0 X10E9/L Normal 0.0-0.2 [facility] Comment on above: Performed By: #### ANDRES Briggs BCA, #### [facility] ([id number]) [address], [facility] [address] [place] [address] ABSOLUTE NEUTROPHIL 7.9 X10E9/L High 1.5-6.6 [facility] Comment on above: Performed By: #### ANDRES Briggs BCA, #### [facility] ([id number]) [address], [address] [place] [address] Basophils/100 WBC (Bld) 0.2 % Normal [facility] Comment on above: Performed By: #### ANDRES Briggs BCA, #### [facility] ([id number]) [address], [address] [place] [address] Eosinophils (Bld) [#/Vol] 0.0 10*3/uL Normal 0.0-0.4 [facility] Comment on above: Performed By: #### ANDRES Briggs BCA, #### [facility] ([id number]) [address], [address] [place] [address] Eosinophils/100 WBC (Bld) 0.2 % Normal [facility] Comment on above: Performed By: #### ANDRES Briggs BCA, #### [facility] ([id number]) [address], [address] [place] [address] Erythrocyte distribution width (RBC) [Ratio] 20.7 % High 11.5-15.0 [facility] Comment on above: Performed By: #### ANDRES Briggs BCA, #### [facility] ([id number]) [address], [address] [place] [address] FRAGMENT 1+ Abnormal NONE [facility] Comment on above: Performed By: #### ANDRES Briggs BCA, #### [facility] ([id number]) [address], [address] [place] [address] Hematocrit (Bld) [Volume fraction] 30.0 % Low 39-49 [facility] Comment on above: Performed By: #### ANDRES Briggs BCA, #### [facility] ([id number]) [address], [address] [place] [address] Hemoglobin (Bld) [Mass/Vol] 8.7 g/dL Low 13.0-17.0 [facility] Comment on above: Performed By: #### ANDRES Briggs BCA, #### [facility] ([id number]) [address], [address] [place] [address] HYPOCHROMIA 2+ Abnormal NONE [facility] Comment on above: Performed By: #### ANDRES Briggs BCA, #### [facility] ([id number]) [address] [place] [address] Lymphocytes (Bld) [#/Vol] 2.6 10*3/uL Normal 1.0-3.5 [facility] Comment on above: Performed By: #### ANDRES Briggs BCA, #### [facility] ([id number]) [address], [address] [place] [address] Lymphocytes/100 WBC (Bld) 22.1 % Normal [facility] Comment on above: Performed By: #### ANDRES Briggs BCA, #### [facility] ([id number]) [address], [address] [place] [address] MCH (RBC) [Entitic mass] 16.7 pg Low 27-34 [facility] Comment on above: Performed By: #### C MANNY, BMP, #### [facility] ([id number]) [address], [address] [place] [address] MCHC (RBC) [Mass/Vol] 29.1 g/dL Low 32-36 [facility] Comment on above: Performed By: #### Brigitte BRYANT, BMP, #### [facility] ([id number]) [address], [address] [place] [address] MCV (RBC) [Entitic vol] 58 fL Low 80-100 [facility] Comment on above: Performed By: #### Brigitte BRYANT BMP, #### [facility] ([id number]) [address], [address] [place] [address] Monocytes (Bld) [#/Vol] 1.3 10*3/uL High 0-0.9 [facility] Comment on above: Performed By: #### Brigitte BRYANT BMP, #### [facility] ([id number]) [address] [place] [address] Monocytes/100 WBC (Bld) 11.2 % Normal [facility] Comment on above: Performed By: #### Brigitte BRYANT, BMP, #### [facility] ([id number]) [address], [address] [place] [address] Neutrophils/100 WBC (Bld) 66.3 % Normal [facility] Comment on above: Performed By: #### Brigitte BRYANT, BMP, #### [facility] ([id number]) [address], [address] [place] [address] OVALOCYTE 2+ Abnormal NONE [facility] Comment on above: Performed By: #### ANDRES Briggs BCA, #### [facility] ([id number]) [address], [address] [place] [address] Platelet mean volume (Bld) [Entitic vol] 8.7 fL Normal 7-12 [facility] Comment on above: Performed By: #### ANDRES Briggs BCA, #### [facility] ([id number]) [address], [address] [place] [address] Platelets (Bld) [#/Vol] 326 10*3/uL Normal 150-450 [facility] Comment on above: Performed By: #### ANDRES Briggs BCA, #### [facility] ([id number]) [address], [address] [place] [address] RBC COUNT 5.21 X10E12/L Normal 4.10-5.70 [facility] Comment on above: Performed By: #### ANDRES Briggs BCA, #### [facility] ([id number]) [address], [address] [place] [address] WBC (Bld) [#/Vol] 11.9 10*3/uL High 4.0-11.0 [facility] Comment on above: Performed By: #### ANDRES Briggs BCA, #### [facility] ([id number]) [address], [address] [place] [address] MAGNESIUMon 01-10-2024 Magnesium [Mass/Vol] 2.0 mg/dL Normal 1.8-2.6 [facility] Comment on above: Performed By: #### ANDRES Briggs BCA, #### [facility] ([id number]) [address], [address] [place] [address] BASIC METABOLIC PANLon 01-08 Anion gap [Moles/Vol] 9 mmol/L Normal 5-15 [facility] Comment on above: Performed By: #### C ANDRES BRYANT, #### [facility] ([id number]) [address], [address] [place] [address] Calcium [Mass/Vol] 8.8 mg/dL Normal 8.5-10.5 [facility] Comment on above: Performed By: #### C MANNY BMP, #### [facility] ([id number]) [address], [address] [place] [address] Chloride [Moles/Vol] 107 mmol/L Normal 98-109 [facility] Comment on above: Performed By: #### C MANNY BMP, #### [facility] ([id number]) [address], [address] [place] [address] CO2 [Moles/Vol] 25 mmol/L Normal 22-32 [facility] Comment on above: Performed By: #### C MANNY BMP, #### [facility] ([id number]) [address], [address] [place] [address] Creatinine [Mass/Vol] 0.96 mg/dL Normal 0.60-1.30 [facility] Comment on above: Result Comment: METH OD TRACEABLE TO IDMS STANDARD Performed By: #### C MANNY BMP, #### [facility] ([id number]) [address], [address] [place] [address] eGFR (CKD-EPI) NON-RACE DEPENDENT >90 Normal >59 [facility] Comment on above: Result Comment: Reported eGFR is based on the CKD-EPI 2020 equation that does not use a race coefficient. Performed By: #### C MANNY, BMP, #### [facility] ([id number]) [address], [address] [place] [address] Glucose [Mass/Vol] 117 mg/dL High 65-99 [facility] Comment on above: Performed By: #### ANDRES Briggs BCA, #### [facility] ([id number]) [address], [address] [place] [address] Potassium [Moles/Vol] 4.5 mmol/L Normal 3.5-5.0 [facility] Comment on above: Performed By: #### ANDRES Briggs BCA, #### [facility] ([id number]) [address], [facility] [address] [place] [address] Sodium [Moles/Vol] 141 mmol/L Normal 134-146 [facility] Comment on above: Performed By: #### ANDRES Briggs BCA, #### [facility] ([id number]) [address], [facility] [address] [place] [address] Urea nitrogen [Mass/Vol] 19 mg/dL Normal 5-23 [facility] Comment on above: Performed By: #### ANDRES Briggs BCA, #### [facility] ([id number]) [address], [facility] [address] [place] [address] CBC AND AUTO DIFFon 15-20 24 ACANTHOCYTE 2+ Abnormal NONE [facility] Comment on above: Performed By: #### ANDRES Briggs BCA, #### [facility] ([id number]) [address], [facility] [address] [place] [address] Erythrocyte distribution width (RBC) [Ratio] 21.0 % High 11.5-15.0 [facility] Comment on above: Performed By: #### ANDRES Briggs BCA, #### [facility] ([id number]) [address], [facility] [address] [place] [address] FRAGMENT 1+ Abnormal NONE [facility] Comment on above: Performed By: #### ANDRES Briggs BCA, #### [facility] ([id number]) [address], [address] [place] [address] Hematocrit (Bld) [Volume fraction] 32.9 % Low 39-49 [facility] Comment on above: Performed By: #### C ANDRES BRYANT, #### [facility] ([id number]) [address], [address] [place] [address] Hemoglobin (Bld) [Mass/Vol] 9.4 g/dL Low 13.0-17.0 [facility] Comment on above: Performed By: #### ANDRES Briggs BCA, #### [facility] ([id number]) [address], [address] [place] [address] HYPOCHROMIA 2+ Abnormal NONE [facility] Comment on above: Performed By: #### ANDRES Briggs BCA, #### [facility] ([id number]) [address], [address] [place] [address] Lymphocytes (Bld) [#/Vol] 0.6 10*3/uL Low 1.0-3.5 [facility] Comment on above: Performed By: #### ANDRES Briggs BCA, #### [facility] ([id number]) [address], [address] [place] [address] Lymphocytes/100 WBC (Bld) 4.0 % Normal [facility] Comment on above: Performed By: #### ANDRES Briggs BCA, #### [facility] ([id number]) [address], [address] [place] [address] MCH (RBC) [Entitic mass] 16.4 pg Low 27-34 [facility] Comment on above: Performed By: #### Brigitte BRYANT BMP, #### [facility] ([id number]) [address], [address] [place] [address] MCHC (RBC) [Mass/Vol] 28.6 g/dL Low 32-36 [facility] Comment on above: Performed By: #### ANDRES Briggs BCA, #### [facility] ([id number]) [address], [address] [place] [address] MCV (RBC) [Entitic vol] 57 fL Low 80-100 [facility] Comment on above: Performed By: #### ANDRES Briggs BCA, #### [facility] ([id number]) [address], [address] [place] [address] Monocytes (Bld) [#/Vol] 0.5 10*3/uL Normal 0-0.9 [facility] Comment on above: Performed By: #### ANDRES Briggs BCA, #### [facility] ([id number]) [address], [address] [place] [address] Monocytes/100 WBC (Bld) 3.0 % Normal [facility] Comment on above: Performed By: #### ANDRES Briggs BCA, #### [facility] ([id number]) [address], [address] [place] [address] Neutrophils (Bld) [#/Vol] 14.5 10*3/uL High 1.5-6.6 [facility] Comment on above: Performed By: #### ANDRES Briggs BCA, #### [facility] ([id number]) [address], [address] [place] [address] OVALOCYTE 2+ Abnormal NONE [facility] Comment on above: Performed By: #### ANDRES Briggs BCA, #### [facility] ([id number]) [address] [place] [address] Platelet mean volume (Bld) [Entitic vol] 8.7 fL Normal 7-12 [facility] Comment on above: Performed By: #### Brigitte BRYANT, BMP, #### [facility] ([id number]) [address] [place] [address] Platelets (Bld) [#/Vol] 347 10*3/uL Normal 150-450 [facility] Comment on above: Performed By: #### Brigitte BRYANT, BMP, #### [facility] ([id number]) [address] [place] [address] POLYCHROMASIA 1+ Abnormal NONE [facility] Comment on above: Performed By: #### Brigitte BRYANT, BMP, #### [facility] ([id number]) [address], [address] [place] [address] RBC COUNT 5.76 X10E12/L High 4.10-5.70 [facility] Comment on above: Performed By: #### Brigitte BRYANT, BMP, #### [facility] ([id number]) [address] [place] [address] SEG NEUTROPHIL 93.0 % Normal [facility] Comment on above: Performed By: #### Brigitte BRYANT, BMP, #### [facility] ([id number]) [address] [place] [address] TEARDROP 1+ Abnormal NONE [facility] Comment on above: Performed By: #### Brigitte BRYANT, BMP, #### [facility] ([id number]) [address], [address] [place] [address] WBC (Bld) [#/Vol] 15.6 10*3/uL High 4.0-11.0 [facility] Comment on above: Performed By: #### Brigitte BRYANT, BMP, #### [facility] ([id number]) [address] [place] [address] MAGNESIUMon 01-09-2024 Magnesium [Mass/Vol] 2.0 mg/dL Normal 1.8-2.6 [facility] Comment on above: Performed By: #### C BCA, [facility], 36528-1 #### [facility] ([id number]) [address] [place] [address] Surgical Pathologyon 024 Surgical Pathology Normal [facility] Comment on above: Result Comment: [facility] [address] [place] [address] Surgical Pathology Consultation Patient Name:SASCHA COLBERTMDOB:2000 (Age: 23)Gender:MTaken:01/09/2024eported:01/13/2024hysician(s):Pushpa Silva MD ([phone])Copy To: Rec. #:[id number]: #[id number] Final Pathologic Diagnosis Rectosigmoidectomy: Mucosal ischemic change with superficial mucosal necrosis, acute inflammation, hyalinization of lamina propria and atrophic crypts. Strands of smooth muscle extending into lamina propria with surface erosion compatible with prolapse changes. No malignancy identified. Report Electronically Signed Out [facility]/01/13/2024Suangelita Cortez M.D. [place] [address], License number: [id number]. Clinical History Rectal prolapse, ischemic rectum. Gross [...] sections of proximal margin G edematous wall (7,ss,[id number], m1) . /01/09/2024 Specimen(s) Received Rectum and sigmoid Fee Codes(s): 1; 34965 CBC AND AUTO DIFFon 01-08-20 24 ABSOLUTE BASOPHIL 0.1 X10E9/L Normal 0.0-0.2 [facility] Comment on above: Performed By: #### P INR, 65015-1, CMP, CBCA #### [facility] ([id number]) [address] [place] [address] ABSOLUTE NEUTROPHIL 14.8 X10E9/L High 1.5-6.6 [facility] Comment on above: Performed By: #### P INR, 84267-3, CMP, CBCA #### [facility] ([id number]) [address] [place] [address] Basophils/100 WBC (Bld) 0.3 % Normal [facility] Comment on above: Performed By: #### P INR, 44495-8, CMP, CBCA #### [facility] ([id number]) [address] [place] [address] Eosinophils (Bld) [#/Vol] 0.0 10*3/uL Normal 0.0-0.4 [facility] Comment on above: Performed By: #### P INR, 37882-9, CMP, CBCA #### [facility] ([id number]) [address] [place] [address] Eosinophils/100 WBC (Bld) 0.0 % Normal [facility] Comment on above: Performed By: #### P INR, 27672-4, CMP, CBCA #### [facility] ([id number]) [address] [place] [address] Erythrocyte distribution width (RBC) [Ratio] 20.9 % High 11.5-15.0 [facility] Comment on above: Performed By: #### P INR, 02221-7, CMP, CBCA #### [facility] ([id number]) [address] [place] [address] Hematocrit (Bld) [Volume fraction] 33.4 % Low 39-49 [facility] Comment on above: Performed By: #### P INR, 10653-7, CMP, CBCA #### [facility] ([id number]) [address] [place] [address] Hemoglobin (Bld) [Mass/Vol] 9.5 g/dL Low 13.0-17.0 [facility] Comment on above: Performed By: #### P INR, 37745-2, CMP, CBCA #### [facility] ([id number]) [address] [place] [address] Lymphocytes (Bld) [#/Vol] 0.4 10*3/uL Low 1.0-3.5 [facility] Comment on above: Performed By: #### P INR, 06269-0, CMP, CBCA #### [facility] ([id number]) [address] [place] [address] Lymphocytes/100 WBC (Bld) 2.6 % Normal [facility] Comment on above: Performed By: #### P INR, 74428-9, CMP, CBCA #### [facility] ([id number]) [address] [place] [address] MCH (RBC) [Entitic mass] 16.4 pg Low 27-34 [facility] Comment on above: Performed By: #### P INR, 85590-3, CMP, CBCA #### [facility] ([id number]) [address] [place] [address] MCHC (RBC) [Mass/Vol] 28.6 g/dL Low 32-36 [facility] Comment on above: Performed By: #### P INR, 64542-6, CMP, CBCA #### [facility] ([id number]) [address] [place] [address] MCV (RBC) [Entitic vol] 58 fL Low 80-100 [facility] Comment on above: Performed By: #### P INR, 57790-5, CMP, CBCA #### [facility] ([id number]) [address] [place] [address] Monocytes (Bld) [#/Vol] 1.4 10*3/uL High 0-0.9 [facility] Comment on above: Performed By: #### P INR, 39715-1, CMP, CBCA #### [facility] ([id number]) [address] [place] [address] Monocytes/100 WBC (Bld) 8.5 % Normal [facility] Comment on above: Performed By: #### P INR, 58808-6, CMP, CBCA #### [facility] ([id number]) [address] [place] [address] Neutrophils/100 WBC (Bld) 88.6 % Normal [facility] Comment on above: Performed By: #### P INR, 17520-9, CMP, CBCA #### [facility] ([id number]) [address] [place] [address] Platelet mean volume (Bld) [Entitic vol] 8.7 fL Normal 7-12 [facility] Comment on above: Performed By: #### P INR, 81829-4, CMP, CBCA #### [facility] ([id number]) [address] [place] [address] Platelets (Bld) [#/Vol] 366 10*3/uL Normal 150-450 [facility] Comment on above: Performed By: #### P INR, 84618-4, CMP, CBCA #### [facility] ([id number]) [address] [place] [address] 40994 RBC COUNT 5.81 X10E12/L High 4.10-5.70 [facility] Comment on above: Performed By: #### P INR, 78292-7, CMP, CBCA #### [facility] ([id number]) [address] [place] [address] 47263 WBC (Bld) [#/Vol] 16.7 10*3/uL High 4.0-11.0 [facility] Comment on above: Performed By: #### P INR, 86173-8, CMP, CBCA #### [facility] ([id number]) [address] [place] [address] 10357 COMPREHENSIVE METABOLIC PANE Angel 01-08-2024 Albumin [Mass/Vol] 4.3 g/dL Normal 3.2-5.3 [facility] Comment on above: Performed By: #### P INR, 51233-1, CMP, CBCA #### [facility] ([id number]) [address] [place] [address] 47611 ALP [Catalytic activity/Vol] 67 U/L Normal 39-130 [facility] Comment on above: Performed By: #### P INR, 73685-6, CMP, CBCA #### [facility] ([id number]) [address] [place] [address] 35933 ALT [Catalytic activity/Vol] 19 U/L Normal 0-40 [facility] Comment on above: Performed By: #### P INR, 15958-2, CMP, CBCA #### [facility] ([id number]) [address] [place] [address] 99190 Anion gap [Moles/Vol] 6 mmol/L Normal 5-15 [facility] Comment on above: Performed By: #### P INR, 50809-7, CMP, CBCA #### [facility] ([id number]) [address] [place] [address] 79816 AST [Catalytic activity/Vol] 26 U/L Normal 0-41 [facility] Comment on above: Performed By: #### P INR, 67683-2, CMP, CBCA #### [facility] ([id number]) [address] [place] [address] 90264 Bilirubin [Mass/Vol] 0.5 mg/dL Normal 0.3-1.2 [facility] Comment on above: Performed By: #### P INR, 79371-0, CMP, CBCA #### [facility] ([id number]) [address] [place] [address] 53093 Calcium [Mass/Vol] 8.8 mg/dL Normal 8.5-10.5 [facility] Comment on above: Performed By: #### P INR, 93632-8, CMP, CBCA #### [facility] ([id number]) [address] [place] [address] 19882 Chloride [Moles/Vol] 102 mmol/L Normal 98-109 [facility] Comment on above: Performed By: #### P INR, 53812-8, CMP, CBCA #### [facility] ([id number]) [address] [place] [address] 16079 CO2 [Moles/Vol] 23 mmol/L Normal 22-32 [facility] Comment on above: Performed By: #### P INR, 90947-6, CMP, CBCA #### [facility] ([id number]) [address] [place] [address] 04764 Creatinine [Mass/Vol] 1.03 mg/dL Normal 0.70-1.20 [facility] Comment on above: Result Comment: METH OD TRACEABLE TO IDMS STANDARD Performed By: #### P INR, 69819-0, CMP, CBCA #### [facility] ([id number]) [address] [place] [address] 74009 eGFR (CKD-EPI) NON-RACE DEPENDENT >90 Normal >59 [facility] Comment on above: Result Comment: Reported eGFR is based on the CKD-EPI 2020 equation that does not use a race coefficient. Performed By: #### P INR, 05858-1, CMP, CBCA #### [facility] ([id number]) [address] [place] [address] 12452 Glucose [Mass/Vol] 114 mg/dL High 65-99 [facility] Comment on above: Performed By: #### P INR, 08369-6, CMP, CBCA #### [facility] ([id number]) [address] [place] [address] 65965 Potassium [Moles/Vol] 4.0 mmol/L Normal 3.5-5.0 [facility] Comment on above: Performed By: #### P INR, 09456-0, CMP, CBCA #### [facility] ([id number]) [address] [place] [address] 87330 Protein [Mass/Vol] 6.9 g/dL Normal 6.0-8.0 [facility] Comment on above: Performed By: #### P INR, 07032-9, CMP, CBCA #### [facility] ([id number]) [address] [place] [address] 87496 Sodium [Moles/Vol] 131 mmol/L Low 134-146 [facility] Comment on above: Performed By: #### P INR, 08425-6, CMP, CBCA #### [facility] ([id number]) [address] [place] [address] 17109 Urea nitrogen [Mass/Vol] 17 mg/dL Normal 5-23 [facility] Comment on above: Performed By: #### P INR, 95102-3, CMP, CBCA #### [facility] ([id number]) [address] [place] [address] 81323 PROTIME AND INRon 01-08-2024 INR Coag (PPP) [Relative time] 1.0 {INR} Normal 0.8-1.1 [facility] Comment on above: Performed By: #### P INR, 61732-2, CMP, CBCA #### [facility] ([id number]) [address] [place] [address] 48609 PT Coag (PPP) [Time] 12.0 s Normal 9.8-13.2 [facility] Comment on above: Result Comment: NEW REFERENCE RANGE Performed By: #### P INR, 25201-5, CMP, CBCA #### [facility] ([id number]) [address] [place] [address] 03840 aPTT Coag (PPP) [Time]on aPTT Coag (Bld) [Time] 37 s Normal 26-37 [facility] Comment on above: Result Comment: NEW REFERENCE RANGE Performed By: #### P INR, 88227-8, CMP, CBCA #### [facility] ([id number]) [address] [place] [address] 40485 CBC AUTO DIFFon 03-26-2023 BASO # 0.0 103/ul Normal 0.0-0.1 [facility] Comment on above: Performed By: #### C BC #### [facility] [address] [address] [address] Sonido Bejarano Basophils/100 WBC (Bld) 0.7 % Normal 0.2-2.0 [facility] Comment on above: Performed By: #### C BC #### [facility] [address] [place] [address] Dr. Sonido Bejarano EO # 0.1 103/ul Normal 0.0-0.7 [facility] Comment on above: Performed By: #### C BC #### [facility] [address] [place] [address] Dr. Sonido Bejarano Eosinophils/100 WBC (Bld) 1.0 % Normal 0.9-7.0 [facility] Comment on above: Performed By: #### C BC #### [facility] [address] [place] [address] Dr. Sonido Bejarano Erythrocyte distribution width (RBC) [Ratio] 22.3 % Critically high 11.0-15.0 [facility] Comment on above: Performed By: #### C BC #### [facility] [address] [place] [address] Dr. Sonido Bejarano Hematocrit (Bld) [Volume fraction] 32.0 % Critically low 42.0-54.0 [facility] Comment on above: Performed By: #### C BC #### [facility] [address] [place] [address] Dr. Sonido Bejarano Hemoglobin (Bld) [Mass/Vol] 8.3 g/dL Critically low 14.0-18.0 [facility] Comment on above: Performed By: #### C BC #### [facility] [address] [place] [address] Dr. Sonido Bejarano IG # 0.01 10e3/ul Normal 0.00-0.03 [facility] Comment on above: Performed By: #### C BC #### [facility] [address] [place] [address] Dr. Sonido Bejarano IG % 0.2 % Normal 0.0-0.5 [facility] Comment on above: Performed By: #### C BC #### [facility] [address] [place] [address] Dr. Sonido Bejarano LYMPH # 1.2 103/ul Normal 1.2-3.8 [facility] Comment on above: Performed By: #### C BC #### [facility] [address] [place] [address] Dr. Sonido Bejarano Lymphocytes/100 WBC (Bld) 20.1 % Critically low 20.5-60.0 [facility] Comment on above: Performed By: #### C BC #### [facility] [address] [place] [address] Dr. Sonido Bejarano MANUAL DIFF REQ NO Normal [facility] Comment on above: Performed By: #### C BC #### [facility] [address] [place] [address] Dr. Sonido Bejarano MCH (RBC) [Entitic mass] 15.7 pg Critically low 25.9-34.0 [facility] Comment on above: Performed By: #### C BC #### [facility] [address] [place] [address] Dr. Sonido Bejarano MCHC (RBC) [Mass/Vol] 25.9 g/dL Critically low 29.9-35.2 [facility] Comment on above: Performed By: #### C BC #### [facility] [address] [place] [address] Dr. Sonido Bejarano MCV (RBC) [Entitic vol] 60.6 fL Critically low 80.0-94.0 [facility] Comment on above: Performed By: #### C BC #### [facility] [address] [place] [address] Dr. Sonido Bejarano MONO # 0.7 103/ul Normal 0.3-0.8 [facility] Comment on above: Performed By: #### C BC #### [facility] [address] [place] [address] Dr. Sonido Bejarano Monocytes/100 WBC (Bld) 12.2 % Critically high 1.7-12.0 [facility] Comment on above: Performed By: #### C BC #### [facility] [address] [place] [address] Dr. Sonido Bejarano NEUT # 3.8 103/ul Normal 1.4-6.5 [facility] Comment on above: Performed By: #### C BC #### [facility] [address] [place] [address] Dr. Sonido eBjarano Neutrophils/100 WBC (Bld) 65.8 % Normal 43.0-75.0 [facility] Comment on above: Performed By: #### C BC #### [facility] [address] [place] [address] Dr. Sonido Bejarano Platelet mean volume (Bld) [Entitic vol] 9.2 fL Critically low 9.5-13.5 [facility] Comment on above: Performed By: #### C BC #### [facility] [address] [place] [address] Dr. Sonido Bejarano PLT 369 103/ul Normal 150-450 [facility] Comment on above: Performed By: #### C BC #### [facility] [address] [place] [address] Dr. Sonido Bejarano RBC 5.28 106/ul Normal 4.70-6.10 [facility] Comment on above: Performed By: #### C BC #### [facility] [address] [place] [address] Dr. Sonido Bejarano WBC 5.8 103/ul Normal 4.0-11.0 [facility] Comment on above: Performed By: #### C BC #### [facility] [address] [place] [address] Dr. Sonido Bejarano CBC AUTO DIFFon 02-19-2023 BASO # 0.0 103/ul Normal 0.0-0.1 [facility] Comment on above: Performed By: #### C BC #### [facility] [address] [place] [address] Dr. Sonido Bejarano Basophils/100 WBC (Bld) 0.7 % Normal 0.2-2.0 [facility] Comment on above: Performed By: #### C BC #### [facility] [address] [place] [address] Dr. Sonido Bejarano EO # 0.1 103/ul Normal 0.0-0.7 [facility] Comment on above: Performed By: #### C BC #### [facility] [address] [place] [address] Dr. Sonido Bejarano Eosinophils/100 WBC (Bld) 1.1 % Normal 0.9-7.0 [facility] Comment on above: Performed By: #### C BC #### [facility] [address] [place] [address] Dr. Sonido Bejarano Erythrocyte distribution width (RBC) [Ratio] 22.7 % Critically high 11.0-15.0 [facility] Comment on above: Performed By: #### C BC #### [facility] [address] [place] [address] Dr. Sonido Bejarano Hematocrit (Bld) [Volume fraction] 32.9 % Critically low 42.0-54.0 [facility] Comment on above: Performed By: #### C BC #### [facility] [address] [place] [address] Dr. Sonido Bejarano Hemoglobin (Bld) [Mass/Vol] 8.2 g/dL Critically low 14.0-18.0 [facility] Comment on above: Performed By: #### C BC #### [facility] [address] [place] [address] Dr. Sonido Bejarano IG # 0.02 10e3/ul Normal 0.00-0.03 [facility] Comment on above: Performed By: #### C BC #### [facility] [address] [place] [address] Dr. Sonido Bejarano IG % 0.3 % Normal 0.0-0.5 [facility] Comment on above: Performed By: #### C BC #### [facility] [address] [place] [address] Dr. Sonido Bejarano LYMPH # 1.4 103/ul Normal 1.2-3.8 [facility] Comment on above: Performed By: #### C BC #### [facility] [address] [place] [address] Dr. Sonido Bejarano Lymphocytes/100 WBC (Bld) 22.8 % Normal 20.5-60.0 [facility] Comment on above: Performed By: #### C BC #### [facility] [address] [place] [address] Dr. Sonido Bejarano MANUAL DIFF REQ NO Normal [facility] Comment on above: Performed By: #### C BC #### [facility] [address] [place] [address] Dr. Sonido Bejarano MCH (RBC) [Entitic mass] 15.3 pg Critically low 25.9-34.0 [facility] Comment on above: Performed By: #### C BC #### [facility] [address] [place] [address] Dr. Sonido Bejarano MCHC (RBC) [Mass/Vol] 24.9 g/dL Critically low 29.9-35.2 [facility] Comment on above: Performed By: #### C BC #### [facility] [address] [place] [address] Dr. Sonido Bejarano MCV (RBC) [Entitic vol] 61.3 fL Critically low 80.0-94.0 [facility] Comment on above: Performed By: #### C BC #### [facility] [address] [place] [address] Dr. Sonido Bejarano MONO # 0.7 103/ul Normal 0.3-0.8 [facility] Comment on above: Performed By: #### C BC #### [facility] [address] [place] [address] Dr. Sonido Bejarano Monocytes/100 WBC (Bld) 11.6 % Normal 1.7-12.0 [facility] Comment on above: Performed By: #### C BC #### [facility] [address] [place] [address] Dr. Sonido Bejarano NEUT # 3.9 103/ul Normal 1.4-6.5 [facility] Comment on above: Performed By: #### C BC #### [facility] [address] [place] [address] Dr. Sonido Bejarano Neutrophils/100 WBC (Bld) 63.5 % Normal 43.0-75.0 [facility] Comment on above: Performed By: #### C BC #### [facility] [address] [place] [address] Dr. Sonido Bejarano Platelet mean volume (Bld) [Entitic vol] 9.3 fL Critically low 9.5-13.5 [facility] Comment on above: Performed By: #### C BC #### [facility] [address] [place] [address] Dr. Sonido Bejarano PLT 394 103/ul Normal 150-450 [facility] Comment on above: Performed By: #### C BC #### [facility] [address] [place] [address] Dr. Sonido Bejarano RBC 5.37 106/ul Normal 4.70-6.10 [facility] Comment on above: Performed By: #### C BC #### [facility] [address] [place] [address] Dr. Sonido Bejarano WBC 6.1 103/ul Normal 4.0-11.0 [facility] Comment on above: Performed By: #### C BC #### [facility] [address] [place] [address] Dr. Sonido Bejarano CBC AUTO DIFFon 01-15-2023 BASO # 0.0 103/ul Normal 0.0-0.1 [facility] Comment on above: Performed By: #### C BC #### [facility] [address] [place] [address] Dr. Sonido Bejarano Basophils/100 WBC (Bld) 0.3 % Normal 0.2-2.0 [facility] Comment on above: Performed By: #### C BC #### [facility] [address] [place] [address] Dr. Sonido Bejarano EO # 0.0 103/ul Normal 0.0-0.7 [facility] Comment on above: Performed By: #### C BC #### [facility] [address] [place] [address] Dr. Sonido Bejarano Eosinophils/100 WBC (Bld) 0.4 % Critically low 0.9-7.0 [facility] Comment on above: Performed By: #### C BC #### [facility] [address] [place] [address] Dr. Snoido Bejarano Erythrocyte distribution width (RBC) [Ratio] 22.4 % Critically high 11.0-15.0 [facility] Comment on above: Performed By: #### C BC #### [facility] [address] [place] [address] Dr. Sonido Bejarano Hematocrit (Bld) [Volume fraction] 31.5 % Critically low 42.0-54.0 [facility] Comment on above: Performed By: #### C BC #### [facility] [address] [place] [address] Dr. Sonido Bejarano Hemoglobin (Bld) [Mass/Vol] 8.1 g/dL Critically low 14.0-18.0 [facility] Comment on above: Performed By: #### C BC #### [facility] [address] [place] [address] Dr. Sonido Bejarano IG # 0.02 10e3/ul Normal 0.00-0.03 [facility] Comment on above: Performed By: #### C BC #### [facility] [address] [place] [address] Dr. Sonido Bejarano IG % 0.3 % Normal 0.0-0.5 [facility] Comment on above: Performed By: #### C BC #### [facility] [address] [place] [address] Dr. Sonido Bejarano LYMPH # 1.3 103/ul Normal 1.2-3.8 [facility] Comment on above: Performed By: #### C BC #### [facility] [address] [place] [address] Dr. Sonido Bejarano Lymphocytes/100 WBC (Bld) 19.4 % Critically low 20.5-60.0 [facility] Comment on above: Performed By: #### C BC #### [facility] [address] [place] [address] Dr. Sonido Bejarano MANUAL DIFF REQ NO Normal [facility] Comment on above: Performed By: #### C BC #### [facility] [address] [place] [address] Dr. Sonido Bejarano MCH (RBC) [Entitic mass] 15.5 pg Critically low 25.9-34.0 [facility] Comment on above: Performed By: #### C BC #### [facility] [address] [address] [address] Sonido Bejarano MCHC (RBC) [Mass/Vol] 25.7 g/dL Critically low 29.9-35.2 [facility] Comment on above: Performed By: #### C BC #### [facility] [address] [address] [address] Sonido Bejarano MCV (RBC) [Entitic vol] 60.2 fL Critically low 80.0-94.0 [facility] Comment on above: Performed By: #### C BC #### [facility] [address] [place] [address] Dr. Sonido Bejarano MONO # 0.9 103/ul Critically high 0.3-0.8 [facility] Comment on above: Performed By: #### C BC #### [facility] [address] [place] [address] Dr. Sonido Bejarano Monocytes/100 WBC (Bld) 12.9 % Critically high 1.7-12.0 [facility] Comment on above: Performed By: #### C BC #### [facility] [address] [place] [address] Dr. Sonido Bejarano NEUT # 4.5 103/ul Normal 1.4-6.5 [facility] Comment on above: Performed By: #### C BC #### [facility] [address] [place] [address] Dr. Sonido Bejarano Neutrophils/100 WBC (Bld) 66.7 % Normal 43.0-75.0 [facility] Comment on above: Performed By: #### C BC #### [facility] [address] [place] [address] Dr. Sonido Bejarano Platelet mean volume (Bld) [Entitic vol] 9.2 fL Critically low 9.5-13.5 [facility] Comment on above: Performed By: #### C BC #### [facility] [address] [place] [address] Dr. Sonido Bejarano PLT 356 103/ul Normal 150-450 [facility] Comment on above: Performed By: #### C BC #### [facility] [address] [place] [address] Dr. Sonido Bejarano RBC 5.23 106/ul Normal 4.70-6.10 [facility] Comment on above: Result Comment: 2+ P OIKILOCYTOSIS 2+ ANISOCYTOSIS 2+ OVALOCYTE 1+ TEAR DROP CELL 2+ ACANTHOCYTE Performed By: #### C BC #### [facility] [address] [place] [address] Dr. Sonido Bejarano WBC 6.8 103/ul Normal 4.0-11.0 [facility] Comment on above: Performed By: #### C BC #### [facility] [address] [place] [address] Dr. Sonido Bejarano CBC AUTO DIFFon 12-20-2022 BASO # 0.0 103/ul Normal 0.0-0.1 [facility] Comment on above: Performed By: #### C BC #### [facility] [address] [place] [address] Dr. Sonido Bejarano Basophils/100 WBC (Bld) 0.5 % Normal 0.2-2.0 [facility] Comment on above: Performed By: #### C BC #### [facility] [address] [place] [address] Dr. Sonido Bejarano EO # 0.1 103/ul Normal 0.0-0.7 [facility] Comment on above: Performed By: #### C BC #### [facility] [address] [place] [address] Dr. Sonido Bejarano Eosinophils/100 WBC (Bld) 1.3 % Normal 0.9-7.0 [facility] Comment on above: Performed By: #### C BC #### [facility] [address] [place] [address] Dr. Sonido Bejarano Erythrocyte distribution width (RBC) [Ratio] 22.8 % Critically high 11.0-15.0 [facility] Comment on above: Performed By: #### C BC #### [facility] [address] [place] [address] Dr. Sonido Bejarano Hematocrit (Bld) [Volume fraction] 34.5 % Critically low 42.0-54.0 [facility] Comment on above: Performed By: #### C BC #### [facility] [address] [place] [address] Dr. Sonido Bejarano Hemoglobin (Bld) [Mass/Vol] 8.9 g/dL Critically low 14.0-18.0 [facility] Comment on above: Performed By: #### C BC #### [facility] [address] [place] [address] Dr. Sonido Bejarano IG # 0.01 10e3/ul Normal 0.00-0.03 [facility] Comment on above: Performed By: #### C BC #### [facility] [address] [place] [address] Dr. Sonido Bejarano IG % 0.2 % Normal 0.0-0.5 [facility] Comment on above: Performed By: #### C BC #### [facility] [address] [place] [address] Dr. Sonido Bejarano LYMPH # 1.0 103/ul Critically low 1.2-3.8 [facility] Comment on above: Performed By: #### C BC #### [facility] [address] [place] [address] Dr. Sonido Bejarano Lymphocytes/100 WBC (Bld) 18.3 % Critically low 20.5-60.0 [facility] Comment on above: Performed By: #### C BC #### [facility] [address] [place] [address] Dr. Sonido Bejarano MANUAL DIFF REQ NO Normal [facility] Comment on above: Performed By: #### C BC #### [facility] [address] [place] [address] Dr. Sonido Bejarano MCH (RBC) [Entitic mass] 15.6 pg Critically low 25.9-34.0 [facility] Comment on above: Performed By: #### C BC #### [facility] [address] [address] [address] Sonido Bejarano MCHC (RBC) [Mass/Vol] 25.8 g/dL Critically low 29.9-35.2 [facility] Comment on above: Performed By: #### C BC #### [facility] [address] [place] [address] Dr. Sonido Bejarano MCV (RBC) [Entitic vol] 60.6 fL Critically low 80.0-94.0 [facility] Comment on above: Performed By: #### C BC #### [facility] [address] [place] [address] Dr. Sonido Bejarano MONO # 0.7 103/ul Normal 0.3-0.8 [facility] Comment on above: Performed By: #### C BC #### [facility] [address] [place] [address] Dr. Sonido Bejarano Monocytes/100 WBC (Bld) 13.2 % Critically high 1.7-12.0 [facility] Comment on above: Performed By: #### C BC #### [facility] [address] [place] [address] Dr. Sonido Bejarano NEUT # 3.7 103/ul Normal 1.4-6.5 [facility] Comment on above: Performed By: #### C BC #### [facility] [address] [place] [address] Dr. Sonido Bejarano Neutrophils/100 WBC (Bld) 66.5 % Normal 43.0-75.0 [facility] Comment on above: Performed By: #### C BC #### [facility] [address] [place] [address] Dr. Sonido Bejarano Platelet mean volume (Bld) [Entitic vol] 9.6 fL Normal 9.5-13.5 [facility] Comment on above: Performed By: #### C BC #### [facility] [address] [place] [address] Dr. Sonido Bejarano PLT 441 103/ul Normal 150-450 [facility] Comment on above: Performed By: #### C BC #### [facility] [address] [place] [address] Dr. Sonido Bejarano RBC 5.69 106/ul Normal 4.70-6.10 [facility] Comment on above: Result Comment: Anis ocytosis 2+ Hypochromasia 2+ Poikilocytosis 2+ Ovalocytes 1+ Tear drop cells 1+ Acanthocytes 1+ Performed By: #### C BC #### [facility] [address] [place] [address] Dr. Sonido Bejarano WBC 5.5 103/ul Normal 4.0-11.0 [facility] Comment on above: Performed By: #### C BC #### [facility] [address] [place] [address] Dr. Sonido Bejarano CBC AUTO DIFFon 11-20-2022 BASO # 0.1 103/ul Normal 0.0-0.1 [facility] Comment on above: Performed By: #### C BC #### [facility] [address] [place] [address] Dr. Sonido Bejarano Basophils/100 WBC (Bld) 1.0 % Normal 0.2-2.0 [facility] Comment on above: Performed By: #### C BC #### [facility] [address] [place] [address] Dr. Sonido Bejarano EO # 0.1 103/ul Normal 0.0-0.7 [facility] Comment on above: Performed By: #### C BC #### [facility] [address] [place] [address] Dr. Sonido Bejarano Eosinophils/100 WBC (Bld) 2.1 % Normal 0.9-7.0 [facility] Comment on above: Performed By: #### C BC #### [facility] [address] [place] [address] Dr. Sonido Bejarano Erythrocyte distribution width (RBC) [Ratio] 23.0 % Critically high 11.0-15.0 [facility] Comment on above: Performed By: #### C BC #### [facility] [address] [place] [address] Dr. Sonido Bejarano Hematocrit (Bld) [Volume fraction] 32.6 % Critically low 42.0-54.0 [facility] Comment on above: Performed By: #### C BC #### [facility] [address] [place] [address] Dr. Sonido Bejarano Hemoglobin (Bld) [Mass/Vol] 8.0 g/dL Critically low 14.0-18.0 [facility] Comment on above: Performed By: #### C BC #### [facility] [address] [place] [address] Dr. Sonido Bejarano IG # 0.01 10e3/ul Normal 0.00-0.03 [facility] Comment on above: Performed By: #### C BC #### [facility] [address] [place] [address] Dr. Sonido Bejarano IG % 0.2 % Normal 0.0-0.5 [facility] Comment on above: Performed By: #### C BC #### [facility] [address] [place] [address] Dr. Sonido Bejarano LYMPH # 1.1 103/ul Critically low 1.2-3.8 [facility] Comment on above: Performed By: #### C BC #### [facility] [address] [place] [address] Dr. Sonido Bejarano Lymphocytes/100 WBC (Bld) 22.0 % Normal 20.5-60.0 [facility] Comment on above: Performed By: #### C BC #### [facility] [address] [place] [address] Dr. Sonido Bejarano MANUAL DIFF REQ NO Normal [facility] Comment on above: Performed By: #### C BC #### [facility] [address] [place] [address] Dr. Sonido Bejarano MCH (RBC) [Entitic mass] 15.6 pg Critically low 25.9-34.0 [facility] Comment on above: Performed By: #### C BC #### [facility] [address] [place] [address] Dr. Sonido Bejarano MCHC (RBC) [Mass/Vol] 24.5 g/dL Critically low 29.9-35.2 [facility] Comment on above: Performed By: #### C BC #### [facility] [address] [address] [address] Sonido Bejarano MCV (RBC) [Entitic vol] 63.4 fL Critically low 80.0-94.0 [facility] Comment on above: Performed By: #### C BC #### [facility] [address] [address] [address] Sonido Bejarano MONO # 0.6 103/ul Normal 0.3-0.8 [facility] Comment on above: Performed By: #### C BC #### [facility] [address] [place] [address] Dr. Sonido Bejarano Monocytes/100 WBC (Bld) 13.0 % Critically high 1.7-12.0 [facility] Comment on above: Performed By: #### C BC #### [facility] [address] [place] [address] Dr. Sonido Bejarano NEUT # 3.0 103/ul Normal 1.4-6.5 [facility] Comment on above: Performed By: #### C BC #### [facility] [address] [place] [address] Dr. Sonido Bejarano Neutrophils/100 WBC (Bld) 61.7 % Normal 43.0-75.0 [facility] Comment on above: Performed By: #### C BC #### [facility] [address] [place] [address] Dr. Sonido Bejarano Platelet mean volume (Bld) [Entitic vol] 8.6 fL Critically low 9.5-13.5 [facility] Comment on above: Performed By: #### C BC #### [facility] [address] [place] [address] Dr. Sonido Bejarano PLT 333 103/ul Normal 150-450 [facility] Comment on above: Performed By: #### C BC #### [facility] [address] [place] [address] Dr. Sonido Bejarano RBC 5.14 106/ul Normal 4.70-6.10 [facility] Comment on above: Performed By: #### C BC #### [facility] [address] [address] [address] Sonido Bejarano WBC 4.9 103/ul Normal 4.0-11.0 [facility] Comment on above: Performed By: #### C BC #### [facility] [address] [place], [place] [id number] Dr. Sonido Bejarano CBC AUTO DIFFon 10-11-2022 BASO # 0.0 103/ul Normal 0.0-0.1 [facility] Comment on above: Performed By: #### C BC #### [facility] [address] [place] [address] Dr. Sonido Bejarano Basophils/100 WBC (Bld) 0.8 % Normal 0.2-2.0 [facility] Comment on above: Performed By: #### C BC #### [facility] [address] [place] [address] Dr. Sonido Bejarano EO # 0.1 103/ul Normal 0.0-0.7 [facility] Comment on above: Performed By: #### C BC #### [facility] [address] [place] [address] Dr. Sonido Bejarano Eosinophils/100 WBC (Bld) 1.5 % Normal 0.9-7.0 [facility] Comment on above: Performed By: #### C BC #### [facility] [address] [place] [address] Dr. Sonido Bejarano Erythrocyte distribution width (RBC) [Ratio] 22.4 % Critically high 11.0-15.0 [facility] Comment on above: Performed By: #### C BC #### [facility] [address] [place] [address] Dr. Sonido Bejarano Hematocrit (Bld) [Volume fraction] 32.3 % Critically low 42.0-54.0 [facility] Comment on above: Performed By: #### C BC #### [facility] [address] [place] [address] Dr. Sonido Bejarano Hemoglobin (Bld) [Mass/Vol] 8.1 g/dL Critically low 14.0-18.0 [facility] Comment on above: Performed By: #### C BC #### [facility] [address] [place] [address] Dr. Sonido Bejarano IG # 0.01 10e3/ul Normal 0.00-0.03 [facility] Comment on above: Performed By: #### C BC #### [facility] [address] [place] [address] Dr. Sonido Bejarano IG % 0.2 % Normal 0.0-0.5 [facility] Comment on above: Performed By: #### C BC #### [facility] [address] [place] [address] Dr. Sonido Bejarano LYMPH # 1.2 103/ul Normal 1.2-3.8 [facility] Comment on above: Performed By: #### C BC #### [facility] [address] [place] [address] Dr. Sonido Bejarano Lymphocytes/100 WBC (Bld) 22.8 % Normal 20.5-60.0 [facility] Comment on above: Performed By: #### C BC #### [facility] [address] [place] [address] Dr. Sonido Bejarano MANUAL DIFF REQ NO Normal [facility] Comment on above: Performed By: #### C BC #### [facility] [address] [place] [address] Dr. Sonido Bejarano MCH (RBC) [Entitic mass] 15.1 pg Critically low 25.9-34.0 [facility] Comment on above: Performed By: #### C BC #### [facility] [address] [place] [address] Dr. Sonido Bejarano MCHC (RBC) [Mass/Vol] 25.1 g/dL Critically low 29.9-35.2 [facility] Comment on above: Performed By: #### C BC #### [facility] [address] [place] [address] Dr. Sonido Bejarano MCV (RBC) [Entitic vol] 60.0 fL Critically low 80.0-94.0 [facility] Comment on above: Performed By: #### C BC #### [facility] [address] [place] [address] Dr. Sonido Bejarano MONO # 0.7 103/ul Normal 0.3-0.8 [facility] Comment on above: Performed By: #### C BC #### [facility] [address] [place] [address] Dr. Sonido Bejarano Monocytes/100 WBC (Bld) 12.5 % Critically high 1.7-12.0 [facility] Comment on above: Performed By: #### C BC #### [facility] [address] [place] [address] Dr. Sonido Bejarano NEUT # 3.2 103/ul Normal 1.4-6.5 [facility] Comment on above: Performed By: #### C BC #### [facility] [address] [place] [address] Dr. Sonido Bejarano Neutrophils/100 WBC (Bld) 62.2 % Normal 43.0-75.0 [facility] Comment on above: Performed By: #### C BC #### [facility] [address] [place] [address] Dr. Sonido Bejarano Platelet mean volume (Bld) [Entitic vol] 8.6 fL Critically low 9.5-13.5 [facility] Comment on above: Performed By: #### C BC #### [facility] [address] [place] [address] Dr. Sonido Bejarano PLT 345 103/ul Normal 150-450 [facility] Comment on above: Performed By: #### C BC #### [facility] [address] [place] [address] Dr. Sonido Bejarano RBC 5.38 106/ul Normal 4.70-6.10 [facility] Comment on above: Performed By: #### C BC #### [facility] [address] [place] [address] Dr. Sonido Bejarano WBC 5.2 103/ul Normal 4.0-11.0 [facility] Comment on above: Performed By: #### C BC #### [facility] [address] [address] [address] Sonido Bejarano CBC W MANUAL DIFFon 09-18-20 ANISOCYTOSIS 3+ Normal [facility] Comment on above: Performed By: #### C BCMAN #### [facility] [address] [place] [address] Dr. Sonido Bejarano ATYPICAL LYMPH # Normal [facility] Comment on above: Performed By: #### C BCMAN #### [facility] [address] [place] [address] Dr. Sonido Bejarano ATYPICAL LYMPH % Normal [facility] Comment on above: Performed By: #### C BCMAN #### [facility] [address] [place] [address] Dr. Sonido Bejarano BAND # Normal 0.0-0.3 [facility] Comment on above: Performed By: #### C BCMAN #### [facility] [address] [place] [address] Dr. Sonido Bejarano BAND % Normal 0-5 [facility] Comment on above: Performed By: #### C BCMAN #### [facility] [address] [place] [address] Dr. Sonido Bejarano BASOM # 0.00 103/ul Normal 0.00-0.10 [facility] Comment on above: Performed By: #### C BCMAN #### [facility] [address] [place] [address] Dr. Sonido Bejarano BASOM % 0.0 % Critically low 0.2-2.0 [facility] Comment on above: Performed By: #### C BCMAN #### [facility] [address] [place] [address] Dr. Sonido Bejarano BLAST # Normal [facility] Comment on above: Performed By: #### C BCMAN #### [facility] [address] [place] [address] Dr. Sonido Bejarano BLAST % Normal [facility] Comment on above: Performed By: #### C BCMAN #### [facility] [address] [place] [address] Dr. Sonido Bejarano CORRECTED WBC Normal 4.0-11.0 [facility] Comment on above: Performed By: #### C BCKATHERINE #### [facility] [address] [address] [address] Sonido Bejarano EOS # 0.08 103/ul Normal 0.00-0.70 [facility] Comment on above: Performed By: #### C BCKATHERINE #### [facility] [address] [address] [address] Sonido Bejarano EOS% 2.0 % Normal 0.9-7.0 [facility] Comment on above: Performed By: #### C BCKATHERINE #### [facility] [address] [address] [address] Sonido Bejarano HCT 31.1 % Critically low 42.0-54.0 [facility] Comment on above: Performed By: #### C RAMILA #### [facility] [address] [place] [address] Dr. Sonido Bejarano HGB 8.3 g/dl Critically low 14.0-18.0 [facility] Comment on above: Performed By: #### C RAMILA #### [facility] [address] [address] [address] Sonido Bejarano HYPOCHROMASIA SLIGHT Normal [facility] Comment on above: Performed By: #### C BCKATHERINE #### [facility] [address] [address] [address] Sonido Bejarano LYMPHM # 1.13 103/ul Critically low 1.20-3.80 [facility] Comment on above: Performed By: #### C BCKATHERINE #### [facility] [address] [address] [address] Sonido Bejarano LYMPHM% 27.0 % Normal 20.5-60.0 [facility] Comment on above: Performed By: #### C BCKATHERINE #### [facility] [address] [place] [address] Dr. Sonido Bejarano MCH 15.9 pg Critically low 25.9-34.0 [facility] Comment on above: Performed By: #### C BCKATHERINE #### [facility] [address] [address] [address] Sonido Bejarano MCHC 26.7 g/dl Critically low 29.9-35.2 [facility] Comment on above: Performed By: #### C RAMILA #### [facility] [address] [place] [address] Dr. Sonido Bejarano MCV 59.5 fL Critically low 80.0-94.0 [facility] Comment on above: Performed By: #### C BCKATHERINE #### [facility] [address] [place] [address] Dr. Sonido Bejarano METAMYELOCYTE # Normal [facility] Comment on above: Performed By: #### C RAMILA #### [facility] [address] [place] [address] Dr. Sonido Bejarano METAMYELOCYTE % Normal [facility] Comment on above: Performed By: #### C RAMILA #### [facility] [address] [place] [address] Dr. Sonido Bejarano MICROCYTOSIS 3+ Normal [facility] Comment on above: Performed By: #### C RAMILA #### [facility] [address] [place] [address] Dr. Sonido Bejarano MONOM# 0.55 103/ul Normal 0.30-0.80 [facility] Comment on above: Performed By: #### C RAMILA #### [facility] [address] [place] [address] Dr. Sonido Bejarano MONOM% 13.0 % Critically high 1.7-12.0 [facility] Comment on above: Performed By: #### C RAMILA #### [facility] [address] [place] [address] Dr. Sonido Bejarano MPV 9.7 fL Normal 9.5-13.5 [facility] Comment on above: Performed By: #### C BCKATHERINE #### [facility] [address] [place] [address] Dr. Sonido Bejarano MYELOCYTE # Normal [facility] Comment on above: Performed By: #### C BCKATHERINE #### [facility] [address] [address] [address] Sonido Bejarano MYELOCYTE % Normal [facility] Comment on above: Performed By: #### C RAMILA #### [facility] [address] [place] [address] Dr. Sonido Bejarano NRBC Normal [facility] Comment on above: Performed By: #### C OSWALDOMAN #### [facility] [address] [address] [address] Sonido Bejarano PLT 421 103/ul Normal 150-450 [facility] Comment on above: Performed By: #### C RAMILA #### [facility] [address] [place] [address] Dr. Sonido Bejarano RBC 5.23 106/ul Normal 4.70-6.10 [facility] Comment on above: Performed By: #### C RAMILA #### [facility] [address] [place] [address] Dr. Sonido Bejarano RDW 22.2 % Critically high 11.0-15.0 [facility] Comment on above: Performed By: #### C RAMIAL #### [facility] [address] [place] [address] Dr. Sonido Bejarano SEG # 2.44 103/ul Normal 1.40-6.50 [facility] Comment on above: Performed By: #### C OSWALDOMAN #### [facility] [address] [place] [address] Dr. Sonido Bejarano SEG % 58.0 % Normal 43.0-75.0 [facility] Comment on above: Performed By: #### C BCMAN #### [facility] [address] [place] [address] Dr. Sonido Bejarano WBC 4.2 103/ul Normal 4.0-11.0 [facility] Comment on above: Performed By: #### C OSWALDOMAN #### [facility] [address] [place] [address] Dr. Sonido Bejarano CBC AUTO DIFFon 08-21-2022 BASO # 0.0 103/ul Normal 0.0-0.1 [facility] Comment on above: Performed By: #### C BC #### [facility] [address] [place] [address] Dr. Sonido Bejarano Basophils/100 WBC (Bld) 0.6 % Normal 0.2-2.0 [facility] Comment on above: Performed By: #### C BC #### [facility] [address] [place] [address] Dr. Sonido Bejarano EO # 0.1 103/ul Normal 0.0-0.7 [facility] Comment on above: Performed By: #### C BC #### [facility] [address] [place] [address] Dr. Sonido Bejarano Eosinophils/100 WBC (Bld) 1.0 % Normal 0.9-7.0 [facility] Comment on above: Performed By: #### C BC #### [facility] [address] [place] [address] Dr. Sonido Bejarano Erythrocyte distribution width (RBC) [Ratio] 21.9 % Critically high 11.0-15.0 [facility] Comment on above: Result Comment: anis ocytosis 2+ Performed By: #### C BC #### [facility] [address] [place] [address] Dr. Sonido Bejarano Hematocrit (Bld) [Volume fraction] 32.7 % Critically low 42.0-54.0 [facility] Comment on above: Performed By: #### C BC #### [facility] [address] [place] [address] Dr. Sonido Bejarano Hemoglobin (Bld) [Mass/Vol] 8.4 g/dL Critically low 14.0-18.0 [facility] Comment on above: Performed By: #### C BC #### [facility] [address] [place] [address] Dr. Sonido Bejarano IG # 0.01 10e3/ul Normal 0.00-0.03 [facility] Comment on above: Performed By: #### C BC #### [facility] [address] [place] [address] Dr. Sonido Bejarano IG % 0.2 % Normal 0.0-0.5 [facility] Comment on above: Performed By: #### C BC #### [facility] [address] [address] [address] Sonido Bejarano LYMPH # 1.1 103/ul Critically low 1.2-3.8 [facility] Comment on above: Performed By: #### C BC #### [facility] [address] [address] [address] Sonido Bejarano Lymphocytes/100 WBC (Bld) 22.3 % Normal 20.5-60.0 [facility] Comment on above: Performed By: #### C BC #### [facility] [address] [address] [address] Sonido Bejarano MANUAL DIFF REQ NO Normal [facility] Comment on above: Performed By: #### C BC #### [facility] [address] [place] [address] Dr. Sonido Bejarano MCH (RBC) [Entitic mass] 15.3 pg Critically low 25.9-34.0 [facility] Comment on above: Performed By: #### C BC #### [facility] [address] [place] [address] Dr. Sonido Bejarano MCHC (RBC) [Mass/Vol] 25.7 g/dL Critically low 29.9-35.2 [facility] Comment on above: Result Comment: hypo chromasia 2+ Performed By: #### C BC #### [facility] [address] [place] [address] Dr. Sonido Bejarano MCV (RBC) [Entitic vol] 59.6 fL Critically low 80.0-94.0 [facility] Comment on above: Result Comment: micr ocytosis 3+ Performed By: #### C BC #### [facility] [address] [place] [address] Dr. Sonido Bejarano MONO # 0.5 103/ul Normal 0.3-0.8 [facility] Comment on above: Performed By: #### C BC #### [facility] [address] [place] [address] Dr. Sonido Bejarano Monocytes/100 WBC (Bld) 10.8 % Normal 1.7-12.0 [facility] Comment on above: Performed By: #### C BC #### [facility] [address] [place] [address] Dr. Sonido Bejarano NEUT # 3.2 103/ul Normal 1.4-6.5 [facility] Comment on above: Performed By: #### C BC #### [facility] [address] [place] [address] Dr. Sonido Bejarano Neutrophils/100 WBC (Bld) 65.1 % Normal 43.0-75.0 [facility] Comment on above: Performed By: #### C BC #### [facility] [address] [place] [address] Dr. Sonido Bejarano Platelet mean volume (Bld) [Entitic vol] 9.5 fL Normal 9.5-13.5 [facility] Comment on above: Performed By: #### C BC #### [facility] [address] [place] [address] Dr. Sonido Bejarano PLT 415 103/ul Normal 150-450 [facility] Comment on above: Performed By: #### C BC #### [facility] [address] [place] [address] Dr. Sonido Bejarano RBC 5.49 106/ul Normal 4.70-6.10 [facility] Comment on above: Performed By: #### C BC #### [facility] [address] [place] [address] Dr. Sonido Bejarano WBC 5.0 103/ul Normal 4.0-11.0 [facility] Comment on above: Performed By: #### C BC #### [facility] [address] [place] [address] Dr. Sonido Bejarano CBC AUTO DIFFon 08-02-2022 BASO # 0.0 103/ul Normal 0.0-0.1 [facility] Comment on above: Performed By: #### C BC #### [facility] [address] [place] [address] Dr. Sonido Bejarano Basophils/100 WBC (Bld) 0.3 % Normal 0.2-2.0 [facility] Comment on above: Performed By: #### C BC #### [facility] [address] [address] [address] Sonido Bejarano EO # 0.0 103/ul Normal 0.0-0.7 [facility] Comment on above: Performed By: #### C BC #### [facility] [address] [place] [address] Dr. Sonido Bejarano Eosinophils/100 WBC (Bld) 0.7 % Critically low 0.9-7.0 [facility] Comment on above: Performed By: #### C BC #### [facility] [address] [place] [address] Dr. Sonido Bejarano Erythrocyte distribution width (RBC) [Ratio] 21.9 % Critically high 11.0-15.0 [facility] Comment on above: Performed By: #### C BC #### [facility] [address] [place] [address] Dr. Sonido Bejarano Hematocrit (Bld) [Volume fraction] 30.0 % Critically low 42.0-54.0 [facility] Comment on above: Performed By: #### C BC #### [facility] [address] [place] [address] Dr. Sonido Bejarano Hemoglobin (Bld) [Mass/Vol] 7.8 g/dL Critically low 14.0-18.0 [facility] Comment on above: Performed By: #### C BC #### [facility] [address] [place] [address] Dr. Sonido Bejarano IG # 0.01 10e3/ul Normal 0.00-0.03 [facility] Comment on above: Performed By: #### C BC #### [facility] [address] [place] [address] Dr. Sonido Bejarano IG % 0.2 % Normal 0.0-0.5 [facility] Comment on above: Performed By: #### C BC #### [facility] [address] [place] [address] Dr. Sonido Bejarano LYMPH # 1.0 103/ul Critically low 1.2-3.8 [facility] Comment on above: Performed By: #### C BC #### [facility] [address] [address] [address] Sonido Bejarano Lymphocytes/100 WBC (Bld) 18.0 % Critically low 20.5-60.0 [facility] Comment on above: Performed By: #### C BC #### [facility] [address] [place] [address] Dr. Sonido Bejarano MANUAL DIFF REQ NO Normal [facility] Comment on above: Performed By: #### C BC #### [facility] [address] [address] [address] Sonido Bejarano MCH (RBC) [Entitic mass] 15.9 pg Critically low 25.9-34.0 [facility] Comment on above: Performed By: #### C BC #### [facility] [address] [place] [address] Dr. Sonido Bejarano MCHC (RBC) [Mass/Vol] 26.0 g/dL Critically low 29.9-35.2 [facility] Comment on above: Performed By: #### C BC #### [facility] [address] [place] [address] Dr. Sonido Bejarano MCV (RBC) [Entitic vol] 61.2 fL Critically low 80.0-94.0 [facility] Comment on above: Performed By: #### C BC #### [facility] [address] [place] [address] Dr. Sonido Bejarano MONO # 0.5 103/ul Normal 0.3-0.8 [facility] Comment on above: Performed By: #### C BC #### [facility] [address] [place] [address] Dr. Sonido Bejarano Monocytes/100 WBC (Bld) 8.7 % Normal 1.7-12.0 [facility] Comment on above: Performed By: #### C BC #### [facility] [address] [place] [address] Dr. Sonido Bejarano NEUT # 4.1 103/ul Normal 1.4-6.5 [facility] Comment on above: Performed By: #### C BC #### [facility] [address] [place] [address] Dr. Sonido Bejarano Neutrophils/100 WBC (Bld) 72.1 % Normal 43.0-75.0 [facility] Comment on above: Performed By: #### C BC #### [facility] [address] [place] [address] Dr. Sonido Bejarano Platelet mean volume (Bld) [Entitic vol] 9.3 fL Critically low 9.5-13.5 [facility] Comment on above: Performed By: #### C BC #### [facility] [address] [place] [address] Dr. Sonido Bejarano PLT 339 103/ul Normal 150-450 [facility] Comment on above: Performed By: #### C BC #### [facility] [address] [place] [address] Dr. Sonido Bejarano RBC 4.90 106/ul Normal 4.70-6.10 [facility] Comment on above: Performed By: #### C BC #### [facility] [address] [place] [address] Dr. Sonido Bejarano WBC 5.7 103/ul Normal 4.0-11.0 [facility] Comment on above: Performed By: #### C BC #### [facility] [address] [place] [address] Dr. Sonido Bejarano CBC AUTO DIFFon 06-17-2022 BASO # 0.0 103/ul Normal 0.0-0.1 [facility] Comment on above: Performed By: #### C BC #### [facility] [address] [place] [address] Dr. Sonido Bejarano Basophils/100 WBC (Bld) 0.7 % Normal 0.2-2.0 [facility] Comment on above: Performed By: #### C BC #### [facility] [address] [place] [address] Dr. Sonido Bejarano EO # 0.3 103/ul Normal 0.0-0.7 [facility] Comment on above: Performed By: #### C BC #### [facility] [address] [place] [address] Dr. Sonido Bejarano Eosinophils/100 WBC (Bld) 5.3 % Normal 0.9-7.0 [facility] Comment on above: Performed By: #### C BC #### [facility] [address] [place] [address] Dr. Sonido Bejarano Erythrocyte distribution width (RBC) [Ratio] 22.1 % Critically high 11.0-15.0 [facility] Comment on above: Performed By: #### C BC #### [facility] [address] [place] [address] Dr. Sonido Bejarano Hematocrit (Bld) [Volume fraction] 32.2 % Critically low 42.0-54.0 [facility] Comment on above: Performed By: #### C BC #### [facility] [address] [place] [address] Dr. Sonido Bejarano Hemoglobin (Bld) [Mass/Vol] 8.2 g/dL Critically low 14.0-18.0 [facility] Comment on above: Performed By: #### C BC #### [facility] [address] [place] [address] Dr. Sonido Bejarano IG # 0.01 10e3/ul Normal 0.00-0.03 [facility] Comment on above: Performed By: #### C BC #### [facility] [address] [place] [address] Dr. Sonido Bejarano IG % 0.2 % Normal 0.0-0.5 [facility] Comment on above: Performed By: #### C BC #### [facility] [address] [place] [address] Dr. Sonido Bejarano LYMPH # 1.1 103/ul Critically low 1.2-3.8 [facility] Comment on above: Performed By: #### C BC #### [facility] [address] [place] [address] Dr. Sonido Bejarano Lymphocytes/100 WBC (Bld) 19.3 % Critically low 20.5-60.0 [facility] Comment on above: Performed By: #### C BC #### [facility] [address] [address] [address] Sonido Bejarano MANUAL DIFF REQ NO Normal [facility] Comment on above: Performed By: #### C BC #### [facility] [address] [place] [address] Dr. Sonido Bejarano MCH (RBC) [Entitic mass] 15.8 pg Critically low 25.9-34.0 [facility] Comment on above: Performed By: #### C BC #### [facility] [address] [place] [address] Dr. Sonido Bejarano MCHC (RBC) [Mass/Vol] 25.5 g/dL Critically low 29.9-35.2 [facility] Comment on above: Performed By: #### C BC #### [facility] [address] [place] [address] Dr. Sonido Bejarano MCV (RBC) [Entitic vol] 62.0 fL Critically low 80.0-94.0 [facility] Comment on above: Performed By: #### C BC #### [facility] [address] [place] [address] Dr. Sonido Bejarano MONO # 0.9 103/ul Critically high 0.3-0.8 [facility] Comment on above: Performed By: #### C BC #### [facility] [address] [place] [address] Dr. Sonido Bejarano Monocytes/100 WBC (Bld) 16.0 % Critically high 1.7-12.0 [facility] Comment on above: Performed By: #### C BC #### [facility] [address] [place] [address] Dr. Sonido Bejarano NEUT # 3.2 103/ul Normal 1.4-6.5 [facility] Comment on above: Performed By: #### C BC #### [facility] [address] [place] [address] Dr. Sonido Bejarano Neutrophils/100 WBC (Bld) 58.5 % Normal 43.0-75.0 [facility] Comment on above: Performed By: #### C BC #### [facility] [address] [place] [address] Dr. Sonido Bejarano Platelet mean volume (Bld) [Entitic vol] 9.3 fL Critically low 9.5-13.5 [facility] Comment on above: Performed By: #### C BC #### [facility] [address] [place] [address] Dr. Sonido Bejarano PLT 335 103/ul Normal 150-450 [facility] Comment on above: Performed By: #### C BC #### [facility] [address] [place] [address] Dr. Sonido Bejarano RBC 5.19 106/ul Normal 4.70-6.10 [facility] Comment on above: Performed By: #### C BC #### [facility] [address] [place] [address] Dr. Sonido Bejarano WBC 5.5 103/ul Normal 4.0-11.0 [facility] Comment on above: Performed By: #### C BC #### [facility] [address] [place] [address] Dr. Sonido Bejarano CBC AUTO DIFFon 05-15-2022 BASO # 0.0 103/ul Normal 0.0-0.1 [facility] Comment on above: Performed By: #### C BC #### [facility] [address] [place] [address] Dr. Sonido Bejarano Basophils/100 WBC (Bld) 0.8 % Normal 0.2-2.0 [facility] Comment on above: Performed By: #### C BC #### [facility] [address] [place] [address] Dr. Sonido Bejarano EO # 0.1 103/ul Normal 0.0-0.7 [facility] Comment on above: Performed By: #### C BC #### [facility] [address] [place] [address] Dr. Sonido Bejarano Eosinophils/100 WBC (Bld) 2.3 % Normal 0.9-7.0 [facility] Comment on above: Performed By: #### C BC #### [facility] [address] [place] [address] Dr. Sonido Bejarano Erythrocyte distribution width (RBC) [Ratio] 21.5 % Critically high 11.0-15.0 [facility] Comment on above: Performed By: #### C BC #### [facility] [address] [place] [address] Dr. Sonido Bejarano Hematocrit (Bld) [Volume fraction] 30.5 % Critically low 42.0-54.0 [facility] Comment on above: Performed By: #### C BC #### [facility] [address] [place] [address] Dr. Sonido Bejarano Hemoglobin (Bld) [Mass/Vol] 7.9 g/dL Critically low 14.0-18.0 [facility] Comment on above: Performed By: #### C BC #### [facility] [address] [place] [address] Dr. Sonido Bejarano IG # 0.01 10e3/ul Normal 0.00-0.03 [facility] Comment on above: Performed By: #### C BC #### [facility] [address] [place] [address] Dr. Sonido Bejarano IG % 0.2 % Normal 0.0-0.5 [facility] Comment on above: Performed By: #### C BC #### [facility] [address] [place] [address] Dr. Sonido Bejarano LYMPH # 1.3 103/ul Normal 1.2-3.8 [facility] Comment on above: Performed By: #### C BC #### [facility] [address] [place] [address] Dr. Sonido Bejarano Lymphocytes/100 WBC (Bld) 24.6 % Normal 20.5-60.0 [facility] Comment on above: Performed By: #### C BC #### [facility] [address] [place] [address] Dr. Sonido Bejarano MANUAL DIFF REQ NO Normal [facility] Comment on above: Performed By: #### C BC #### [facility] [address] [place] [address] Dr. Sonido Bejarano MCH (RBC) [Entitic mass] 15.6 pg Critically low 25.9-34.0 [facility] Comment on above: Performed By: #### C BC #### [facility] [address] [place] [address] Dr. Sonido Bejarano MCHC (RBC) [Mass/Vol] 25.9 g/dL Critically low 29.9-35.2 [facility] Comment on above: Performed By: #### C BC #### [facility] [address] [place] [address] Dr. Sonido Bejarano MCV (RBC) [Entitic vol] 60.4 fL Critically low 80.0-94.0 [facility] Comment on above: Performed By: #### C BC #### [facility] [address] [place] [address] Dr. Sonido Bejarano MONO # 0.6 103/ul Normal 0.3-0.8 [facility] Comment on above: Performed By: #### C BC #### [facility] [address] [place] [address] Dr. Sonido Bejarano Monocytes/100 WBC (Bld) 12.1 % Critically high 1.7-12.0 [facility] Comment on above: Performed By: #### C BC #### [facility] [address] [place] [address] Dr. Sonido Bejarano NEUT # 3.1 103/ul Normal 1.4-6.5 [facility] Comment on above: Performed By: #### C BC #### [facility] [address] [place] [address] Dr. Sonido Bejarano Neutrophils/100 WBC (Bld) 60.0 % Normal 43.0-75.0 [facility] Comment on above: Performed By: #### C BC #### [facility] [address] [place] [address] Dr. Sonido Bejarano Platelet mean volume (Bld) [Entitic vol] 9.6 fL Normal 9.5-13.5 [facility] Comment on above: Performed By: #### C BC #### [facility] [address] [place] [address] Dr. Sonido Bejarano PLT 399 103/ul Normal 150-450 [facility] Comment on above: Performed By: #### C BC #### [facility] [address] [place] [address] Dr. Sonido Bejarano RBC 5.05 106/ul Normal 4.70-6.10 [facility] Comment on above: Performed By: #### C BC #### [facility] [address] [place] [address] Dr. Sonido Bejarano WBC 5.1 103/ul Normal 4.0-11.0 [facility] Comment on above: Performed By: #### C BC #### [facility] [address] [place] [address] Dr. Sonido Bejarano CBC AUTO DIFFon 04-15-2022 BASO # 0.0 103/ul Normal 0.0-0.1 [facility] Comment on above: Performed By: #### C BC #### [facility] [address] [place] [address] Dr. Sonido Bejarano Basophils/100 WBC (Bld) 0.3 % Normal 0.2-2.0 [facility] Comment on above: Performed By: #### C BC #### [facility] [address] [place] [address] Dr. Sonido Bejarano EO # 0.1 103/ul Normal 0.0-0.7 [facility] Comment on above: Performed By: #### C BC #### [facility] [address] [place] [address] Dr. Sonido Bejarano Eosinophils/100 WBC (Bld) 1.0 % Normal 0.9-7.0 [facility] Comment on above: Performed By: #### C BC #### [facility] [address] [place] [address] Dr. Sonido Bejarano Erythrocyte distribution width (RBC) [Ratio] 21.2 % Critically high 11.0-15.0 [facility] Comment on above: Performed By: #### C BC #### [facility] [address] [place] [address] Dr. Sonido Bejarano Hematocrit (Bld) [Volume fraction] 32.2 % Critically low 42.0-54.0 [facility] Comment on above: Performed By: #### C BC #### [facility] [address] [place] [address] Dr. Sonido Bejarano Hemoglobin (Bld) [Mass/Vol] 8.3 g/dL Critically low 14.0-18.0 [facility] Comment on above: Performed By: #### C BC #### [facility] [address] [address] [address] Sonido Bejarano IG # 0.03 10e3/ul Normal 0.00-0.03 [facility] Comment on above: Performed By: #### C BC #### [facility] [address] [place] [address] Dr. Sonido Bejarano IG % 0.4 % Normal 0.0-0.5 [facility] Comment on above: Performed By: #### C BC #### [facility] [address] [place] [address] Dr. Sonido Bejarano LYMPH # 1.0 103/ul Critically low 1.2-3.8 [facility] Comment on above: Performed By: #### C BC #### [facility] [address] [place] [address] Dr. Soindo Bejarano Lymphocytes/100 WBC (Bld) 15.2 % Critically low 20.5-60.0 [facility] Comment on above: Performed By: #### C BC #### [facility] [address] [place] [address] Dr. Sonido Bejarano MANUAL DIFF REQ NO Normal [facility] Comment on above: Performed By: #### C BC #### [facility] [address] [place] [address] Dr. Sonido Bejarano MCH (RBC) [Entitic mass] 16.1 pg Critically low 25.9-34.0 [facility] Comment on above: Performed By: #### C BC #### [facility] [address] [place] [address] Dr. Sonido Bejarano MCHC (RBC) [Mass/Vol] 25.8 g/dL Critically low 29.9-35.2 [facility] Comment on above: Performed By: #### C BC #### [facility] [address] [place] [address] Dr. Sonido Bejarano MCV (RBC) [Entitic vol] 62.4 fL Critically low 80.0-94.0 [facility] Comment on above: Performed By: #### C BC #### [facility] [address] [place] [address] Dr. Sonido Bejarano MONO # 0.6 103/ul Normal 0.3-0.8 [facility] Comment on above: Performed By: #### C BC #### [facility] [address] [place] [address] Dr. Sonido Bejarano Monocytes/100 WBC (Bld) 8.5 % Normal 1.7-12.0 [facility] Comment on above: Performed By: #### C BC #### [facility] [address] [place] [address] Dr. Sonido Bejarano NEUT # 5.0 103/ul Normal 1.4-6.5 [facility] Comment on above: Performed By: #### C BC #### [facility] [address] [place] [address] Dr. Sonido Bejarano Neutrophils/100 WBC (Bld) 74.6 % Normal 43.0-75.0 [facility] Comment on above: Performed By: #### C BC #### [facility] [address] [place] [address] Dr. Sonido Bejarano Platelet mean volume (Bld) [Entitic vol] 9.9 fL Normal 9.5-13.5 [facility] Comment on above: Performed By: #### C BC #### [facility] [address] [place] [address] Dr. Sonido Bejarano PLT 355 103/ul Normal 150-450 [facility] Comment on above: Performed By: #### C BC #### [facility] [address] [place] [address] Dr. Sonido Bejarano RBC 5.16 106/ul Normal 4.70-6.10 [facility] Comment on above: Result Comment: 1+ o valocytes slight hypochromic slight microchromic Performed By: #### C BC #### [facility] [address] [address] [address] Sonido Bjearano WBC 6.7 103/ul Normal 4.0-11.0 [facility] Comment on above: Performed By: #### C BC #### [facility] [address] [address] [address] Sonido Diana 03-28-2022 CNOV Office Visit ([facility] ) -------- RJ COLBERT ([id number]) 2000 [address] [facility] Date Time Provider Department 03/28/22 11:20 AM ARNOLD GENAO [facility] During your visit today, we recorded [...] exam Anorectal: External exam reveals: see below Miner present: yes Assessment Assessment and Plan: Rj [...] Assessed Reason for Visit: Established Patient Follow-Up [86128840] Rectal Bleeding [202] Primary Visit Diagnosis:Hematochezia [K92.1] [...] benztropine (C (more content not included)... Normal [facility] Lisa 03-28-2022 CNPN Telephone ([facility]) -------- RJ COLBERT ([id number]) 2000 [place]* Date Time Provider Department 03/28/22 ARNOLD GENAO [facility] During your visit today, we recorded the following information about you: Essie Pickard Pss 03/28/2022 1:41 PM Signed Patient called and left message regarding prescription from today's visit return call to [phone] Charley Mcclelland RN 03/28/2022 2:49 PM Signed [...] Fully Assessed Reason for Visit: Patient Question [1479] Prescriptions as of 03/28/2022 - acetaminophen (TYLENOL) [...] Status:Closed by CHARLEY MCCLELLAND on 03/28/22 [id number] RJ COLBERT ([id number]) 2000 Genia Reyez* Date Time Provider Department 03/28/22 ARNOLD GENAO [id number] During your visit today, we recorded the following information about you: Sara Rose ADM 03/28/2022 3:45 PM Signed Pharmacy, [facility], [facility], phone , any pharmacist to clarify about carbonate? CALM is residential able to order as food item? Please call to discuss. Charley Mcclelland, RN 03/28/2022 4:14 PM Signed Spoke with the pharmacist and she states that she does not provide food items. She will speak with the nurse at the residential. Allergies As of Date: 03/28/2022 (No Known [...] Encounter Status:Closed by CHARLEY MCCLELLAND on 03/28/22 [facility] CNOVon 11-16-2021 CNOV Office Visit ([facility] ) -------- RJ COLBERT ([id number]) 2000 [place]* Date Time Provider Department 11/16/21 1:30 PM CRISTAL NAVA During your visit today, we recorded the following information about you: Pulse Blood pressure Weight Height 60/minute 136/80 96.2 kg 1.803 m Cristal Nava APRN.CREDIT INTERVIEWER 11/16/2021 12:59 PM Signed COLORECTAL SURGERY November [...] APRN.HUSAM Colorectal Surgery Referring Provider: ARNOLD GENAO [[id number]] Allergies As of Date: 11/16/2021 (No Known Allergies) Date Reviewed: 11/16/2021 Reviewed by: Cristal Nava APRN.CREDIT INTERVIEWER - Fully Assessed Reason for Visit: Post [...] 07/10/2021 Hemorrho (more content not included)... Normal [facility] ANES POSTPROC EVALon 021 ANES POSTPROC EVAL HNO ID: [id number] Author: Michael Martínez MD Service: Anesthesiology Author Type: Anesthesiologist Type: Anesthesia Postprocedure Evaluation Filed: 10/17/2021 10:23 AM Note Text: POST ANESTHESIA EVALUATION NOTE : 2000 Procedure Summary Date: 10/17/21 Room / Location: [address] / [facility] Anesthesia Start: 841 Anesthesia Stop: 913 [...] October 17, 2021 TIME: 10:23 AM CSN: [id number] [facility] ANES PRE-OPon 10-17-2021 ANES PRE-OP HNO ID: [id number] Author: Michael Martínez MD Service: Anesthesiology Author Type: Anesthesiologist Type: Anesthesia Preprocedure Evaluation Filed: 10/17/2021 8:32 AM Note Text: ANESTHESIOLOGY DAY OF SURGERY NOTE : 2000 Procedure Information Date/Time: 10/17/21729 Procedure: HEMORRHOIDECTOMY EXTERNAL > 2 COLUMNS/GROUPS (N/A ) Location: [address] / [facility] Surgeons: Arnold Genao MD Estimated body [...] October 17, 2021 TIME: 8:27 AM CSN: [id number] [facility] BRIEF OP NOTon 10-17-2021 BRIEF OP NOT HNO ID: [id number] Author: Jared Rowe MD Service: Colorectal Author Type: Resident Type: Brief Op Note Filed: 10/17/2021 9:15 AM Note Text: BRIEF OPERATIVE / PROCEDURE NOTE LOG ID: [id number] SURGERY/PROCEDURE DATE: 10/17/2021 INCISION/PROCEDURE START TIME: 8:55 AM INCISION CLOSE/PROCEDURE END TIME: 9:02 AM SURGEON(S)/PROCEDURALIST (S) AND ALMOND CUTTING MACHINE TENDER(S): Surgeon(s) and Role: * Arnold Genao MD [...] DATE: October 17, 2021 TIME: 9:13 AM [facility] HISTORY PHYSICALon HISTORY PHYSICAL HNO ID: [id number] Author: Jared Rowe MD Service: Colorectal Author [...] October 17, 2021 TIME: 7:22 AM Normal [facility] OPERATIVE NOon 10-17-2021 OPERATIVE NO HNO ID: [id number] Author: Arnold Genao MD Service: Colorectal Author Type: Physician Type: Operative Report Filed: 10/30/2021 11:21 AM Note Text: [facility] - Operative Report RJ COLBERT : 2000 AGE: 21. SEX: M PATIENT TYPE: A HOSP SVC: CORS LOCATION: [facility] ATTENDING PHYSICIAN: Arnold Genao M.D. CSN NUMBER: [id number] DATE OF SURGERY/PROCEDURE: 10/17/2021 INCISION/PROCEDURE START TIME: 8:55 AM INCISION CLOSE/PROCEDURE END TIME: 9:02 AM PREOPERATIVE DIAGNOSIS: Hemorrhoids. POSTOPERATIVE DIAGNOSIS: Hemorrhoids. SURGEON: Arnold Genao M.D. ALMOND CUTTING MACHINE TENDER: Jared. SURGERY/PROCEDURE: Ablation. ANESTHESIA: General ESTIMATED BLOOD [...] was overall very minor. Arnold Genao M.D. BC:[id number] /[id number] Normal [facility] HISTORY PHYSICALon HISTORY PHYSICAL HNO ID: [id number] Author: Zahira Heath APRN.CREDIT INTERVIEWER Service: ? Author Type: Nurse Practitioner Type: [...] PAT today with a caregiver from his residential. States he is having around 5 bowel [...] fevers. Neuro: No history of TIA's, stroke, CHINCHILLA MACHINE OPERATOR tumor, impaired sensorium, hemiplegia, paraplegia or quadraplegia. No neurological symptoms or problems. Respiratory: No history of current cough or dyspnea, or pneumonia in the past 6 weeks. No history of respiratory/pulmonary symptoms or problems. Cardiovascular: No history of HTN requiring medication, no history of angina, CHF, CO, cardiac surgery or stents. Denies rest pain, [...] skills. Pulse (more content not included)... Normal [facility] CNOVon 08-31-2021 CNOV Office Visit ([facility] ) -------- RJ COLBERT ([id number]) 2000 [place] [place]* Date Time Provider Department 08/31/21 1:30 PM [facility] During your visit today, we recorded [...] Anorectal: External exam reveals : see below Miner present: yes Assessment Assessment and Plan: Rj Colbert is a 21 year old male who is doing relatively well after his recent rubber band ligation. He still has some rectal bleeding and it is difficult to assess the exact amount. If the bleeding persists we will consider internal hemorrhoidectomy. Arnold Genao MD Colorectal Surgery Referring Provider: ELHAM VAN [[id number]] Allergies As of Date: 08/31/2021 (No Known [...] Encounter Status:Closed by ARNOLD GENAO on 09/02/21 [facility] OPERATIVE NOon 07-17-2021 OPERATIVE NO HNO ID: [id number] Author: Arnold Genao MD Service: Colorectal Author Type: Physician Type: Operative Report Filed: 08/01/2021 1:12 PM Note Text: [facility] - Operative Report RJ COLBERT : 2000 AGE: 21. SEX: M PATIENT TYPE: A HOSP SVC: CORS LOCATION: [facility] ATTENDING PHYSICIAN: Arnold Genao M.D. CSN NUMBER: [id number] DATE OF SURGERY/PROCEDURE: 07/12/2021 INCISION/PROCEDURE START TIME: 10:55 AM INCISION CLOSE/PROCEDURE END TIME: 10:58 AM PREOPERATIVE DIAGNOSIS: Rectal bleeding. POSTOPERATIVE DIAGNOSIS: Rectal bleeding. SURGEON: Arnold Genao M.D. ALMOND CUTTING MACHINE TENDER: None. SURGERY/PROCEDURE: Rubber-band ligation hemorrhoidectomy. ANESTHESIA: General [...] room in good condition. Arnold Genao M.D. BC:[id number] /[id number] [facility] 07-13-2021 [facility] Telephone ([facility]) -------- RJ COLBERT ([id number]) 2000 [place] Reyez* Date Time Provider Department 07/13/21 ARNOLD GENAO [facility] During your visit today, we recorded the following information about you: Essie Pickard Pss 07/13/2021 3:27 PM Signed Patient's caregiver called with post operative hemorrhoidectomy questions and concerns of bands falling off return call to [phone] Sara Rose ADM 07/16/2021 12:22 PM Signed Kasia, caregiver called. Patient banding undone. Called last Friday, waiting to talk to nurse about care. [phone] Nona Banks RN 07/16/2021 4:56 PM Signed [...] Encounter Status:Closed by NONA BANKS on 07/16/21 [facility] ANES POSTPROC EVALon 021 ANES POSTPROC EVAL HNO ID: [id number] Author: Jared Arriaga MD Service: Anesthesiology Author Type: Anesthesiologist Type: Anesthesia Postprocedure Evaluation Filed: 07/12/2021 12:05 PM Note Text: POST ANESTHESIA EVALUATION NOTE : 2000 Procedure Summary Date: 07/12/21 Room / Location: [address] / [facility] Anesthesia Start: 1044 Anesthesia Stop: 1110 [...] July 12, 2021 TIME: 12:05 PM CSN: [id number] [facility] ANES PRE-OPon 07-12-2021 ANES PRE-OP HNO ID: [id number] Author: Jared Arriaga MD Service: Anesthesiology Author [...] July 12, 2021 TIME: 9:18 AM CSN: [id number] Normal [facility] HISTORY PHYSICALon HISTORY PHYSICAL HNO ID: [id number] Author: Arnold Genao MD Service: Colorectal Author [...] DATE: July 12, 2021 TIME: 10:39 AM [facility] HISTORY PHYSICALon HISTORY PHYSICAL HNO ID: [id number] Author: Zahira Ivy PA-C Service: ? Author Type: Physician Parking Assistant Type: HANDP Filed: 07/10/2021 2:28 PM Note [...] PAT today with a caregiver from his residential. States he is having around 5 bowel [...] fevers. Neuro: No history of TIA's, stroke, CHINCHILLA MACHINE OPERATOR tumor, impaired sensorium, hemiplegia, paraplegia or quadraplegia. No neurological symptoms or problems. + MR / DD Respiratory: No history of current cough or dyspnea, or pneumonia in the past 6 weeks. No history of respiratory/pulmonary symptoms or problems. Cardiovascular: No history of HTN requiring medication, no history of angina, CHF, CO, cardiac surgery or stents. Denies rest pain, [...] found for: (more content not included)... Normal [facility] 07-05-2021 [facility] Telephone ([id number]) -------- RJ COLBERT ([id number]) 2000 M Date Time Provider Department 07/05/21 ARNOLD GENAO [id number] During your visit today, we recorded the following information about you: Sara Rose [facility] 07/05/2021 3:26 PM Signed Kasia Nurse Branding Machine Tender at residential where patient resides called to discuss procedure information and date. Call to discuss [phone] Sara Rose [facility] 07/06/2021 11:12 AM Signed Kasia nurse aware of 07/12 procedure date. Would like the nurse to call to advise any prep instructions other than fasting after midnight. Call Nurse Kasia mgr [phone] Cristal Nava APRN.[facility] 07/06/2021 12:27 PM Signed Call returned. Reviewed NPO after midnight and scheduled PACCs appointment. Allergies As of Date: 07/05/2021 (No Known Allergies) Date Reviewed: 06/29/2021 Reviewed by: Arnold Genao MD - Fully Assessed Reason for Visit: procedure info [Other] Cmt: discuss plan Primary Visit Diagnosis:Hemorrhoids, internal, with bleeding [K64.8] Order(s):[facility] [[id number]] Order #: [id number]: 1 FUTURE Prescriptions as of 07/06/2021 - [...] Encounter Status:Closed by CRISTAL NAVA on 07/06/21 [facility] CNOVon 06-29-2021 CNOV Office Visit ([facility] ) -------- RJ COLBERT ([id number]) 2000 M Date Time Provider Department 06/29/21 [...] clinic today with a caregiver from his residential. They relate that he is having around [...] (222 lb 4.8 oz) BMI 31.90 kg/m? Miner present: Yes Rj Colbert is a 21 year old male presents with complaint of rectal bleeding with prolapsing Grade 3 internal hemorrhoids on exam. Our plan is to perform an EUA and rubber band ligation of internal hemorrhoids at the [facility]. Medical Decision Making: Arnold Genao MD Colorectal Surgery Referring Provider: ELHAM VAN [[id number]] Allergies As of Date: 06/29/2021 (No Known [...] Encounter Status:Closed by ARNOLD GENAO on 06/29/21 [facility] 05-22-2021 [facility]) -------- RJ COLBERT ([id number]) 2000 M Date Time Provider Department 05/22/21 ARNOLD GENAO [facility] During your visit today, we recorded the following information about you: Tamiko Sweeney 05/22/2021 3:28 PM Signed Ph. [phone] Alivia, who works for [employer], [facility]. Alivia needs to schedule [place] for [...] Genao - Fully Assessed Reason for Visit: Lab Head - Other [3602] Cmt: appointment Prescriptions as [...] Status:Closed by NONA BANKS on 05/23/21 Normal [facility] Coding Summary.on 05-01-2018 Coding Summary. CODING DATE: 018 FINAL [facility] STATUS: Home (Routine MD) PAYOR: Medicaid EAPG DESCRIPTION 0390 LEVEL I [...] PROC EAPG STAT DESCRIPTION DOCTOR NAME DATE 75024 0149 Colonoscopy, flexible; Colin Shirley MD 04/17/2018 with biopsy, single or multiple 74 Discontinued [facility] Procedure After Administration of Anesthe 93617 Anesthesia for lower Colin Shirley MD 04/17/2018 intestinal endoscopic procedures, endoscope introduced distal to duodenum; not otherwise specified NOTE: The code number assigned matches the documented diagnosis and / or procedure in the patient's chart. However, the narrative phrase printed from the coding software may appear abbreviated, or result in slightly different terminology. Coded By: Sary Little Date Saved: 05/01/2018 08:02 am Normal [facility] Coding Summary. CODING DATE: 018 FINAL [facility] STATUS: Home (Routine DC) PAYOR: Medicaid [...] PROC EAPG STAT DESCRIPTION DOCTOR NAME DATE 70104 0149 Colonoscopy, flexible; Colin Shirley MD 04/17/2018 with biopsy, single or multiple 74 Discontinued [facility] Procedure After Administration of Anesthe 85489 Anesthesia for lower Colin Shirley MD 04/17/2018 intestinal endoscopic procedures, endoscope introduced distal to duodenum; not otherwise specified NOTE: The code number assigned matches the documented diagnosis and / or procedure in the patient's chart. However, the narrative phrase printed from the coding software may appear abbreviated, or result in slightly different terminology. Coded By: Sary Little Date Saved: 04/23/2018 11:46 am [facility] Progress Note-Physicianon Progress Note-Physician Patient: [...] Cardiovascular: Regular rhythm. Neurologic: Alert, Oriented. Plan [place] Society of Anesthesiologists (ASA) physical status classification: Class II. Anesthetic Preoperative Plan Anesthesia: General. . Anesthetic plan, risks, benefits, and alternatives discussed with the patient and/or family. Communication: face to face with (patient 5 minutes, Patient educated on smoking cesstation). Normal [facility] Comment on above: Result Comment: Elec tronically Signed By: Quincy Ojeda Jr, DO\.br\Date and Time Signed: 04/28/18 08:15 EDT Main OR Intraoperative Recor don 04-20-2018 Main OR Intraoperative Record IntraOp Document Type FT Summary Primary Physician: Colin Shirley MD Finalized Date/Time: 04/20/18 09:38:35 Pt. Name: RJ COLBERT/Sex: 2000 Male Med Rec #: [id number] Physician: Colin Shirley MD Financial #: [id number] Pt. Type: O Room/Bed: / Admit/Disch: 04/17/18 09:21:54 - 04/17/18 23:59:59 Institution: Case Times FT Entry 1 Patient Times In Room 04/17/18 13:14:00 Out Room 04/17/18 13:32:00 Procedure Times Start 04/17/18 13:18:00 Stop 04/17/18 13:29:00 Anesthesia Times Start 04/17/18 13:14:00 Stop 04/17/18 13:32:00 Last Modified By: Addie Oreilly CST 04/17/18 13:32:23 General Comments: 04/20/2018 Chart opened to review and send charges Marika Pineda PENSION ADVISER Case Attendance FT Entry 1 Entry 2 Entry 3 Case Attendee Casper GAUTAM, Colin Rene RN, Ashlee Boyd CST, Tori Role Performed Surgeon - Primary Automated Access Systems Technician - Primary Scrub - Primary Time In [...] Scrub - Other Scrub - Other Anesthesiologist Parking Assistant Time In 04/17/18 13:14:00 04/17/18 13:14:00 04/17/18 13:14:00 Time Out 04/17/18 13:32:00 04/17/18 13:32:00 04/17/18 13:32:00 Procedure COLONOSCOPY(.) COLONOSCOPY(.) COLONOSCOPY(.) Comments ORIENTING help in room Dr. Pineda supervising Last Modified By: Anju RN, Ashlee Rene RN, Aslhee Rene RN, Ashlee 04/17/18 13:32:29 04/17/18 13:32:29 [...] CAA, Yvonne Briggs, Oliver ZARATE, Stas Valle Certified Green Building Engineer, Jelani Bess Kirstyn K Time Out Complete [...] and tissue Entry 1 Skin Integrity Intact, [place], Warm, and Skin Abnormality No Dry Outcomes [...] RN Patient Status Stable Skin. Condition Intact, [place], Warm, and Dry Airway Maintenance Oxygen in Use? No Airway Device N/A Outcomes Met? Yes Last Modified By: Ashlee Rene RN 04/17/18 07:23:58 Post-Care Text: The patient is free from signs and symptoms of injury related to transfer/transport General Comments: REPORT GIVEN TO NET APPLICATIONS DEVELOPER/ AW magnetic healer Administration FT Pre-Care Text: Verifies allergies, administers prescribed medications and solutions, administers prescribed antibiotic therapy and immunizing agents as ordered, evaluates response to medications Administers prescribed medications and solutions Entry 1 Expiration Date Yes Outcomes Met? Yes Verified Last Modified By: Ashlee Rene RN 04/17/18 07:24:05 Post-Care Text: The patient received appropriate medication(s) safely administered during the perioperative period For [facility] please see scanned medication reconcilliation form for [...] 13:32 Addie Oreilly CST 04/20/18 09:38 Normal [facility] History and Physicalon 04-17 History and Physical Date: 03/10/2018 2:15 PMPatient Name: Rj ColbertAccopallavi #: [id number]: MaleDOB (age): 2000 (17)Provider: Annie Benton Complaint: Change in Bowel habits Blood in StoolHistory of Present Illness:17 years old -[place] male with multiple psychiatric problems, lives in a residential, referred to me to be evaluatedfor rectal [...] stool incontinence, stomachPrinted on 04/10/2018 Rj Colbert, 76771, 2000 Page 1 of 4Printed on 04/10/2018 Rj Colbert, 73721, 1998cramps, straining. Denies abdominal pain, abdominal swelling, [...] up blood.Vital Signs:BP(mmHg)Pulse(ppm) Rhythm Weight (lbs/oz) Resp/min Ubth981/68 82 Regular 191 / 12 98.3 (F)Physical [...] hemorrhageConstipationPl an: Colonoscopy will be performed at [facility] .Printed on 04/10/2018 [place], 2000 Page 2 of 4Printed on 04/10/2018 Rj Colbert, [id number], 2000Risk & Medical Necessity: Diagnosis and management options are Extensive. The amount of data reviewedand/or ordered is Moderate. The level of risk is Moderate.Colin Shirley MD Rj Colbert, 32402, 2000 Page 3 of 4Printed on 04/10/2018 Rj Colbert, 05795, 1998Printed on 04/10/2018 Rj Colbert, 26301, 2000 Page 4 of 4Printed on 04/10/2018 Rj Colbert, 73895, 1998no change Normal [facility] Comment on above: Result Comment: Elec tronically Signed By: Colin Shirley MD\.br\Date and Time Signed: 04/17/18 13:15 EDT Inpatient Patient Summaryon 04-17-2018 Inpatient [facility] InstructionsPERSON INFORMATION Name: RJ COLBERT PHYSICIANS Admitting Physician: Javier Shirley MD Physician: Colin Shirley MD PCP: Murphy WEISS MD Diagnosis: Rectal prolapse Comment: PATIENT EDUCATION INFORMATIONInstructions: Medication Leaflets:Follow up:With: Address: When: [facility], [address] [place] [address] Business (1) Within 1 to 2 weeks MEDICATION LISTComment: Irlanda [facility] Main OR PACU I Recordon 03-28 Main OR PACU I Record PACU Phase I Document Type FT Summary Primary Physician: Colin Shirley MD Finalized Date/Time: 04/17/18 14:14:33 Pt. Name: RJ COLBERT /Sex: 2000 Male Med Rec #: [id number] Physician: Colin Shirley MD Financial #: [id number] Pt. Type: O Room/Bed: / Admit/Disch: 04/17/18 [...] By: Essie Guzman RN 04/17/18 14:14 Normal [facility] Main OR Preoperative Recordo n 04-17-2018 Main OR Preoperative Record Holding Area Document Type FT Summary Primary Physician: Colin Shirley MD Finalized Date/Time: 04/17/18 09:56:12 Pt. Name: SASCHA COLBERTGenia TrimbleB./Sex: 2000 Male Med Rec #: [id number] Physician: Colin Shirley MD Financial #: [id number] Pt. Type: O Room/Bed: / Admit/Disch: 04/17/18 [...] Signed By: Viki James RN 04/17/18 09:56 [facility] Patient Education - Texton 0 04-17-2018 Patient Education - Text [facility] Coding Summary.on 04-02-2018 Coding Summary. CODING DATE: 018 [facility] STATUS: Home (Routine DC) PAYOR: Medicaid [...] PROC EAPG STAT DESCRIPTION DOCTOR NAME DATE 59633 0133 Sigmoidoscopy, flexible; Colin Shirley MD 03/30/2018 with biopsy, single or multiple 74 Discontinued [facility] Procedure After Administration of Anesthe 01084 Anesthesia for lower Colin Shirley MD 03/30/2018 intestinal endoscopic procedures, endoscope introduced distal to duodenum; not otherwise specified NOTE: The code number assigned matches the documented diagnosis and / or procedure in the patient's chart. However, the narrative phrase printed from the coding software may appear abbreviated, or result in slightly different terminology. Coded By: Sary Little Date Saved: 04/02/2018 04:16 pm [facility] Progress Note-Physicianon Progress Note-Physician Patient: [...] Cardiovascular: Regular rhythm. Neurologic: Alert, Oriented. Plan [place] Society of Anesthesiologists (ASA) physical status classification: Class II. Anesthetic Preoperative Plan Anesthesia: General. . Anesthetic plan, risks, benefits, and alternatives discussed with the patient and/or family. Communication: face to face with (patient 5 minutes, Patient educated on smoking cesstation). Normal [facility] Comment on above: Result Comment: Elec tronically Signed By: Quincy Ojeda Jr, DO\Date and Time Signed: 04/01/18 07:53 EDT History and Physicalon 03-30 History and Physical Date: 03/10/2018 2:15 PMPatient Name: Rj Lepe #: [id number]: MaleDOB (age): 2000 (17)Provider: Annie Benton Complaint: Change in Bowel habits Blood in StoolHistory of Present Illness:17 years old -[place] male with multiple psychiatric problems, lives in a residential, referred to me to be evaluatedfor rectal [...] stool incontinence, stomachPrinted on 03/26/2018 Rj Colbert, 71701, 2000 Page 1 of 4Printed on 03/26/2018 Rj Colbert, 84149, 1998cramps, straining. Denies abdominal pain, abdominal swelling, [...] up blood.Vital Signs:BP(mmHg)Pulse(ppm) Rhythm Weight (lbs/oz) Resp/min Iwni654/68 82 Regular 191 / 12 98.3 (F)Physical [...] hemorrhageConstipationPl an: Colonoscopy will be performed at [facility] .Printed on 03/26/2018 Rj Colbert 97240, 2000 Page 2 of 4Printed on 03/26/2018 Rj Colbert 76513, 2000Risk & Medical Necessity: Diagnosis and management options are Extensive. The amount of data reviewedand/or ordered is Moderate. The level of risk is Moderate.Colin Shirley MD Rj Colbert [id number], 2000 Page 3 of 4Printed on 03/26/2018 Rj Colbert [id number], 1998Printed on 03/26/2018 Rj Colbert [id number], 2000 Page 4 of 4Printed on 03/26/2018 Rj Colbert, [id number], 1998No change Normal [facility] Comment on above: Result Comment: Elec tronically Signed By: Colin Shirley MD\.br\Date and Time Signed: 03/30/18 10:52 EDT Inpatient Patient Summaryon 03-30-2018 [facility] InstructionsPERSON INFORMATION Name: RJ COLBERT PHYSICIANS Admitting Physician: Debbi Shirley MDending Physician: Colin Shirley MD PCP: Murphy WEISS MD Diagnosis: Internal hemorrhoids Comment: PATIENT EDUCATION INFORMATIONInstructions: Medication Leaflets:Follow up:With: Address: When: [facility], [address] [place] [address], [place] [phone] Business (1) Within 1 to 2 weeks MEDICATION LISTComment: Normal [facility] Main OR Intraoperative Recor don 03-30-2018 Main OR Intraoperative Record IntraOp Document Type FT Summary Primary Physician: Colin Shirley MD Finalized Date/Time: 03/30/18 11:37:17 Pt. Name: RJ COLBERT /Sex: 2000 Male Med Rec #: [id number] Physician: Colin Shirley MD Financial #: [id number] Pt. Type: O Room/Bed: / Admit/Disch: 03/30/18 [...] Boyd CST, Tori Role Performed Anesthesiologist of Automated Access Systems Technician - Primary Scrub - Primary Record Time In 03/30/18 10:56:00 03/30/18 10:56:00 03/30/18 10:56:00 Time Out 03/30/18 11:13:00 03/30/18 11:13:00 03/30/18 11:13:00 Procedure COLONOSCOPY(.) COLONOSCOPY(.) COLONOSCOPY(.) Comments Last Modified By: Paul RN, Francy Miller RN, Francy Miller RN, Francy Gregory 03/30/18 11:14:48 03/30/18 11:14:48 03/30/18 11:14:48 Entry 4 Entry 5 Case Attendee Casper GAUTAM, Colin [facility] Tech, Magi Briggs Role Performed [...] Participants Paul TREVINO, Casper Toussaint MD, Colin [place] Certified Green Building Engineer, Oliver Bess CST, Tori Time Out Complete [...] and tissue Entry 1 Skin Integrity Intact, [place], Warm, and Skin Abnormality No Dry Outcomes [...] RN Patient Status Stable Skin. Condition Intact, [place], Warm, and Dry Airway Maintenance Oxygen in Use? No Airway Device N/A Outcomes Met? Yes Last Modified By: Francy Miller RN 03/30/18 07:37:17 Post-Care Text: The patient is free from signs and symptoms of injury related to transfer/transport General Comments: Report given to PACU,RN./RICHARD,magnetic healer Administration FT Pre-Care Text: Verifies allergies, administers prescribed medications and solutions, administers prescribed antibiotic therapy and immunizing agents as ordered, evaluates response to medications Administers prescribed medications and solutions Entry 1 Expiration Date Yes Outcomes Met? Yes Verified Last Modified By: Francy Miller RN 03/30/18 07:37:26 Post-Care Text: The patient received appropriate medication(s) safely administered during the perioperative period For [place] please see scanned medication reconcilliation form for [...] 11:14 Addie Oreilly CST 03/30/18 11:37 Normal [facility] Main OR PACU I Recordon Main OR PACU I Record PACU Phase I Document Type FT Summary Primary Physician: Colin Shirley MD Finalized Date/Time: 03/30/18 11:29:28 Pt. Name: RJ COLBERT /Sex: 2000 Male Med Rec #: [id number] Physician: Colin Shirley MD Financial #: [id number] Pt. Type: O Room/Bed: / Admit/Disch: 03/30/18 [...] By: Essie Guzman RN 03/30/18 11:29 Normal [facility] Main OR Preoperative Recordo n 03-30-2018 Main OR Preoperative Record Holding Area Document Type FT Summary Primary Physician: Colin Shirley MD Finalized Date/Time: 03/30/18 10:16:59 Pt. Name: RJ COLBERT/Sex: 2000 Male Med Rec #: [id number] Physician: Colin Shirley MD Financial #: [id number] Pt. Type: O Room/Bed: / Admit/Disch: 03/30/18 [...] By: Kathleen Gómez RN 03/30/18 10:16 Normal [facility] Patient Education - Texton 0 03-30-2018 Patient Education - Text [facility] Progress Note-Physicianon Progress Note-Physician Patient: [...] vomiting. Plan Transfer/ Discharge: Condition stable. Normal [facility] Comment on above: Result Comment: Elec tronically Signed By: Rusty Fagan DO, Quincy Gregory\.karen\Date and Time Signed: 03/30/18 11:55 EDT Vital Signs Date Time Vital Sign Value Performing Clinician Faci lity 01-26-2024 14:240400 Body height 177.8 cm Reynold Kuo MD Work Phone: [facility] 01-26-2024 14:24-0400 Body mass index (BMI) [Ratio] 25.75 kg/m2 Reynold Kuo MD Work Phone: [facility] 01-26-2024 14:240400 Body weight 81.4 kg Reynold Kuo MD Work Phone: [facility] 03-28-2022 11:11-0400 Body height 180.3 cm Arnold Genao MD Work Phone: [facility] 03-28-2022 11:11-0400 Body weight 90.27 kg Arnold Genao MD Work Phone: [facility] 03-28-2022 11:11-0400 Diastolic blood pressure 65 mm[Hg] Arnold Genao MD Work Phone: [facility] 03-28-2022 11:11-0400 Heart rate 80 /min Arnold Genao MD Work Phone: [facility] 03-28-2022 11:11-0400 SaO2% (BldA) [Mass fraction] 100 % Arnold Genao MD Work Phone: [facility] 03-28-2022 11:11-0400 Systolic blood pressure 108 mm[Hg] Arnold Genao MD Work Phone: [facility] Encounters Encounter Date Encounter Type Care Provider Facility Start: 07-14-2024 End: 07-14-2024 ambulatory BENSON WEISS Not Available Start: 04-08-2024 ambulatory Jean Carlos Boudreaux acility: Start: 01-26-2024 End: 01-26-2024 ambulatory REYNOLD KUO [facility] Start: 01-26-2024 End: 01-26-2024 Postop follow up visit related to original px Reynold Kuo MD Work Phone: [facility] Comment on above: Rectal prolapse (Charlee hortensia Dx) Start: 01-10-2024 End: 01-10-2024 Evaluation and management of inpatient JOHN MILLER [facility] Start: 01-09-2024 End: 01-10-2024 Evaluation and management of inpatient BENSON WEISS [facility] Start: 01-08-2024 End: 01-08-2024 Emergency department patient visit BENSON WEISS [facility] Start: 01-07-2024 End: 01-07-2024 ambulatory BENSON [...] y Dx) Start: 04-17-2018 End: 04-18-2018 Ambulatory [facility] Start: 03-30-2018 End: 03-31-2018 [facility] Facility:[facility] Plan of Treatment Date Care Activity Detail Author Start: 08-05-2029 DTaP,Tdap and Td Vaccines (8 - Td or Tdap) DTaP,Tdap and Td Vaccines (8 - Td or Tdap) [facility] Start: 01-25-2025 Adult BMI Screening Adult BMI Screening [facility] Start: 01-25-2025 Tobacco Screening Tobacco Screening [facility] Start: 06-27-2024 Influenza vaccination Influenza Vaccine [facility] Start: 06-27-2023 COVID-19 Vaccine ( season) COVID-19 Vaccine () [facility] Start: 2017 Urine microalbumin profile DTAP,TDAP,TD (1 - Tdap) [facility] Start: 2016 Adult BMI Follow Up Plan Adult BMI Follow Up Plan [facility] Start: 2016 HEPATITIS C SCREENING HEPATITIS C SCREENING [facility] Start: 2016 HIV SCREENING HIV SCREENING [facility] Start: 2012 PEDS TO ADULT TRANSITION ANNUAL ASSESSMENT PEDS TO ADULT TRANSITION ANNUAL ASSESSMENT [facility] Start: 2010 Adult depression screening assessment DEPRESSION SCREENING [facility] Start: 2010 PEDS TO ADULT TRANSITION INITIAL DISCUSSION PEDS TO ADULT TRANSITION INITIAL DISCUSSION [facility] Start: 2009 HPV VACCINE (1 - Male 2-dose series) HPV VACCINE (1 - Male 2-dose series) [facility] Start: 2008 MENINGOCOCCAL B: Consider based on risk (1 of 2 - Risk Bexsero 2-dose series) MENINGOCOCCAL B: Consider based on risk (1 of 2 - Risk Bexsero 2-dose series) [facility] Immunizations Immunization Date Immunization Notes Care Provider Fa cility 12-08-2020 COVID-19, mRNA, LNP- S, PF, 30mcg/0.3mL Dose Reynold Kuo MD Work Phone: [facility] 11-17-2020 COVID-19, mRNA, LNP- S, PF, 30mcg/0.3mL Dose Reynold Kuo MD Work Phone: [facility] 08-31-2020 influenza, injectabl e, quadrivalent, preservative free Reynold Kuo MD Work Phone: [facility] 08-31-2020 influenza virus vacc ine, unspecified formulation Reynold Kuo MD Work Phone: [facility] 08-18-2019 influenza, injectabl e, quadrivalent, preservative free Reynold Kuo MD Work Phone: [facility] 08-05-2019 tetanus toxoid, redu diamond diphtheria toxoid, and acellular pertussis vaccine, adsorbed Reynold Kuo MD Work Phone: [facility] 12-02-2017 tetanus toxoid, redu diamond diphtheria toxoid, and acellular pertussis vaccine, adsorbed Reynold Kuo MD Work Phone: [facility] 08-21-2017 influenza, injectabl e, quadrivalent, preservative free Reynold Kuo MD Work Phone: [facility] 08-28-2016 influenza, injectable,quadrivalent, preservative free, pediatric Reynold Kuo MD Work Phone: [facility] 08-28-2016 meningococcal polysaccharide (groups A, C, Y and W-135) diphtheria toxoid conjugate vaccine (MCV4P) Reynold Kuo MD Work Phone: [facility] 08-16-2015 influenza, seasonal, injectable Reynold Kuo MD Work Phone: [facility] 08-07-2011 tetanus toxoid, redu diamond diphtheria toxoid, and acellular pertussis vaccine, adsorbed Reynold Kuo MD Work Phone: [facility] 08-17-2008 hepatitis A vaccine, pediatric/adolescent dosage, 2 dose schedule Reynold Kuo MD Work Phone: [facility] 02-02-2008 hepatitis A vaccine, pediatric/adolescent dosage, 2 dose schedule Reynold Kuo MD Work Phone: [facility] 02-02-2008 varicella virus vaccine Edwin Kuo MD Work Phone: [facility] 01-18-2005 diphtheria, tetanus toxoids and acellular pertussis vaccine Reynold Kuo MD Work Phone: [facility] 07-18-2004 DTaP-hepatitis B and poliovirus vaccine Reynold Kuo MD Work Phone: [facility] 07-17-2004 measles, mumps and rubella virus vaccine Reynold Kuo MD Work Phone: [facility] 02-08-2003 diphtheria, tetanus toxoids and acellular pertussis vaccine, unspecified formulation Reynold Kuo MD Work Phone: [facility] 02-08-2003 haemophilus influenz ae type b vaccine, conjugate unspecified formulation Reynold Kuo MD Work Phone: [facility] 02-08-2003 hepatitis B vaccine, pediatric or pediatric/adolescent dosage Reynold Kuo MD Work Phone: [facility] 02-08-2003 measles, mumps and rubella virus vaccine Reynold Kuo MD Work Phone: [facility] 02-08-2003 poliovirus vaccine, unspecified formulation Reynold Kuo MD Work Phone: [facility] 02-08-2003 varicella virus vaccine Edwin Kuo MD Work Phone: [facility] 2000 diphtheria, tetanus toxoids and acellular pertussis vaccine, unspecified formulation Reynold Kuo MD Work Phone: [facility] 2000 haemophilus influenz ae type b vaccine, conjugate unspecified formulation Reynold Kuo MD Work Phone: [facility] 2000 poliovirus vaccine, unspecified formulation Reynold Kuo MD Work Phone: [facility] 2000 hepatitis B vaccine, pediatric or pediatric/adolescent dosage Reynold Kuo MD Work Phone: [facility] 2000 hepatitis B vaccine, pediatric or pediatric/adolescent dosage Reynold Kuo MD [facility] Payers Date Payer Category Payer Medicaid [id number] 2023 Self-pay 2021 Medicaid MEDICAID [facility] MEDICAID [id number] 2021-Present [phone] [address] [place] [address] Medicaid [id number] 2018 Medicare MEDICARE MEDICAR E A AND B [id number] 2018-Present [phone] [address] [address] [place] [address] Medicare [id number] 2018 Medicare MEDICARE MEDICAR E PART A & B [id number] 2018-Present [phone] [address] [place] [address] [id number] 2018 [place] ED[place] [id number] 2018-Present [phone] [address] [place] [address] [id number] 1998 Unknown [id number] [id number] 1998 Unknown [id number] [id number]3 1998 Unknown [id number] 2.16.840.1.439784.3.579.2.593 1998 Unknown [id number] 2.16.840.1.056654.3.579.2.593 1998 Unknown [id number] 2.16.840.1.230623.3.579.2.593 1998 Unknown [id number] 2.16.840.1.579330.3.579.2.593 1998 Unknown [id number] 2.16.840.1.888424.3.579.2.593 1998 Unknown [id number] 2.16.840.1.161786.3.579.2.593 1998 Unknown [id number] 2.16.840.1.220568.3.579.2.593 1998 Unknown [id number] 2.16.840.1.980474.3.579.2.593 1998 Unknown [id number] 2.16.840.1.286413.3.579.2.593 1998 Unknown [id number] 2.16.840.1.046270.3.579.2.593 1998 Unknown [id number] 2.16.840.1.498712.3.579.2.1286 1998 Unknown [id number] 2.16.840.1.001426.3.579.2.1286 1998 Unknown [id number] 2.16.840.1.719506.3.579.2.1286 1998 Unknown [id number] 2.16.840.1.847213.3.579.2.1286 1998 Unknown [id number] 2.16.840.1.924607.3.579.2.1286 1998 Unknown [id number] 2.16.840.1.894627.3.579.2.1259 1998 Unknown [id number] 2.16.840.1.377163.3.579.2.1259 1961 Medicaid [id number] 1961 Medicare [id number] Social History Date Type Detail Facility Start: 03-01-2015 End: 01-26-2024 Tobacco smoking status NHIS Never smoked tobacco [facility] Start: 03-01-2015 End: 01-26-2024 Tobacco use and exposure Smokeless tobacco non-user [facility] Start: 03-28-2022 Alcohol intake 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 dumping of alcohol (finding) [facility] Start: 2000 Sex Assigned At Not on file [facility] Start: 03-18-2022 End: 03-28-2022 Exposure to SARS-CoV-2 (event) Not sure [facility] Start: 01-26-2024 Alcohol intake Lifetime non-d juan (finding) [facility] Start: 11-20-2020 End: 01-09-2024 History of Social function [facility] Start: 11-20-2020 End: 01-09-2024 [facility] Utilities [facility] Has the electric, [employer], oil, or water company threatened to shut off services in your home in past 12Mo No [facility] [employer] [facility] How often to you hav e a drink containing alcohol? Never [facility] How many standard drinks containing alcohol do you have on a typical day? Patient does not drink [facility] Goals Date Patient Goal Desired Activity /State Personal health goal Comment on above: Formatting of this n ote might be different from the original. Evaluation of progress towards goal: Soren Conner, back to residential. Clinical Notes 06-29-2021 to 01-26-2024 Reynold Kuo MD - 01/26/2024 3:15 PM EDTTelephone Encounter - Charley Mcclelland RN - 03/28/2022 4:13 PM EDTTelephone Encounter - Sara BAEZA - 03/28/2022 3:43 PM EDT Note Date & Type Note Facility 01-26-2024 History of Presen t illness Narrative Images from the original note were not included. [facility] [address] [place] [id number] Patient: Rj Colbert Date of : 2000 Encounter Date: 01/26/2024 History of Present Illness: The patient is 23 y.o. male and presents for postoperative follow-up s/p repair of rectal prolapse. Patient presented with incarcerated prolapse. He underwent Altemeier procedure. Patient now follows up. 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 He is doing well. He denies [...] Reynold Kuo MD documented in this encounter [facility] 03-28-2022 Miscellaneous Notes Spoke with the pharmacist and she states that she does not provide food items. She will speak with the nurse at the residential. Pharmacy, [facility], phone , any pharmacist to clarify about carbonate? CALM is residential able to order as food item? Please call to discuss. documented in this encounter [facility] 03-28-2022 Miscellaneous Notes Opened in error documented in this encounter [facility] 03-28-2022 Miscellaneous Notes Addended by: ARNOLD GENAO on: 03/28/2022 03:11 PM Modules accepted: Orders Addended by: CHARLEY MCCLELLAND on: 03/28/2022 02:47 PM Modules accepted: Orders documented in this encounter [facility] 03-28-2022 Note HNO ID: [id number] Author: Arnold Genao MD Service: ? Author Type: Physician Type: Progress Notes Filed: 03/28/2022 11:58 AM Note Text: COLORECTAL SURGERY March 28, 2022 Rj Colbert 21 year old Chief Complaint: hematochezia History of Present Illness: Rj Colbert is a 21 year old male presents to the office for evaluation of hematochezia. Last seen in the office on 11/16/21 with Cristal Nava EGG SORTER for follow up visit after he underwent [...] exam Anorectal: External exam reveals: see below Miner present: yes Assessment Assessment and Plan: Rj Colbert is a 21 year old male with straining and occasional rectal bleeding. Today, we talked about adding a magnesium supplement CALM to his regimen to decrease straining. I am of the opinion that more surgery is not the best option at this time. Arnold Genao MD Colorectal Surgery [facility] 03-28-2022 Nurse Note Calm education given for constipation. What is the reason for your visit today? Established patient presents for hematochezia. Who is your referring physician? Are you having poor oral intake? NO Have you had unintentional weight loss of 15 lbs/7 Kg in the last 3-6 months? NO Bowels: regular Wound: None Temperature: No Drains: No documented in this encounter [facility] 03-28-2022 History of Presen t [...] exam Anorectal: External exam reveals: see below Miner present: yes Assessment Assessment and Plan: Rj Colbert is a 21 year old male with straining and occasional rectal bleeding. Today, we talked about adding a magnesium supplement CALM to his regimen to decrease straining. I am of the opinion that more surgery is not the best option at this time. Arnold Genao MD Colorectal Surgery documented in this encounter [facility] 11-16-2021 Note HNO ID: [id number] Author: Cristal Nava APRN.CREDIT INTERVIEWER Service: ? Author Type: Nurse Practitioner Type: [...] results with patient and POA. 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 Author [...] Anorectal: External exam reveals : see below Miner present: yes Assessment Assessment and Plan: Rj Colbert is a 21 year old male who is doing relatively well after his recent rubber band ligation. He still has some rectal bleeding and it is difficult to assess the exact amount. If the bleeding persists we will consider internal hemorrhoidectomy. 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 They relate that he is having around [...] (222 lb 4.8 oz) BMI 31.90 kg/m? Miner present: Yes Rj Colbert is a 21 year old male presents with complaint of rectal bleeding with prolapsing Grade 3 internal hemorrhoids on exam. Our plan is to perform an EUA and rubber band ligation of internal hemorrhoids at the [facility]. Medical Decision Making: Arnold eGnao MD Colorectal Surgery [facility] Evaluation note Diagnosis Hematochezia- Primary Blood in stool [facility] Rectal prolapse- Primary [facility]Not on filedocumented in this encounter [facility] Summary Purpose Family History No Family History Records FoundNo Family History Records FoundNo Family History Records FoundNo Family History Records FoundNo Family History Records FoundNo Family History Records FoundNo Family History Records FoundNo Family History Records Found Advance Directives No Advanced Directives Records FoundDocuments on File Type Date Recorded 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 Advance Directive(s) 07/09/2021 9:04 AM [...] section and content) DATE CREATED AUTHOR 05/01/2018 [facility] DATE CREATED AUTHOR AUTHOR'S ORGANIZ ATION 10/31/2021 [facility] DATE CREATED AUTHOR AUTHOR'S ORGANIZ ATION 03/29/2022 [facility] DATE CREATED AUTHOR AUTHOR'S ORGANIZ ATION 04/04/2023 [facility] DATE CREATED AUTHOR AUTHOR'S ORGANIZ ATION 01/10/2024 [facility] DATE CREATED AUTHOR AUTHOR'S ORGANIZ ATION 01/27/2024 [facility] DATE CREATED AUTHOR AUTHOR'S ORGANIZ ATION 04/09/2024 [facility] DATE CREATED AUTHOR AUTHOR'S ORGANIZ ATION 07/16/2024 [facility] EPIC Source Comments (unrecognize d section and content) In the event this informatio n is protected by the Federal Confidentiality of Alcohol and Drug Abuse Patient Records regulations: The Federal rules restrict any use of the information to criminally investigate or prosecute any alcohol or drug abuse patient.[facility] the event this information is protected by the Federal Confidentiality of Alcohol and Drug Abuse Patient Records regulations: The Federal rules restrict any use of the information to criminally investigate or prosecute any alcohol or drug abuse patient.[facility] the event this information is protected by the Federal Confidentiality of Alcohol and Drug Abuse Patient Records regulations: The Federal rules restrict any use of the information to criminally investigate or prosecute any alcohol or drug abuse patient.[facility] Reason for Visit (unrecogniz ed section and content) Reason Comments Established Patient Follow-Up Rectal Bleeding Reason Comments Opened In Error no documentation-err or Reason Comments Medication Problem magnesium carbonate? vs? CALM Reason Comments Post-op 2 week Care Teams (unrecognized sec tion and content) [employer] Counter[employer] Relationship Specialty Start Date End Date Benson Weiss MD [address] [place] [address] PCP - General Family Medicine 01/08/24 FOR [...] BE BASED ON THE PRIMARY CLINICAL RECORDS. [employer] [facility]. provides no warranty or guarantee of the accuracy or completeness of information in this document.
[2024-08-18 16:24] LABS: Basophils Percent Auto 0.3 % (0.2-2.0); Eosinophils Percent Auto 0.6 % (0.9-7.0); Hematocrit 39.7 % (42.0-54.0); Hemoglobin 10.7 g/dL (14.0-18.0); Immature Granulocytes Abs Auto 0.01 10^3/uL (0.00-0.03); Immature Granulocytes Pct Auto 0.1 % (0.0-0.5); Lymphocytes Absolute Auto 1.8 10^3/uL (1.2-3.8); Lymphocytes Percent Auto 27.6 % (20.5-60.0); Mean Corpuscular Hemoglobin 17.5 pg (25.9-34.0); Mean Corpuscular Volume 64.8 fL (80.0-94.0); Mean Platelet Volume 9.6 fL (9.5-13.5); Monocytes Absolute Auto 0.9 10^3/uL (0.3-0.8); Monocytes Percent Auto 13.8 % (1.7-12.0); Neutrophils Absolute Auto 3.8 10^3/uL (1.4-6.5); Neutrophils Percent Auto 57.6 % (43.0-75.0); Platelet Count 316 10^3/uL (150-450); Red Cell Distribution Width 21.9 % (11.0-15.0); White Blood Count 6.7 10^3/uL (4.0-11.0)
[2024-08-18 16:31] LABS: Red Blood Count 6.13 10^6/uL (4.70-6.10)
== END 2024-08-18 16:05 | disposition home or self-care (01) ==
PROVIDERS: PCP Family Medicine
DX: Z79.899 Other long term (current) drug therapy (principal)
CPT/HCPCS: 36415; 85025

== ENCOUNTER 2024-09-13 08:19 | Outpatient (OUT) | payer MEDICARE, MEDICAID, SELFPAY ==
--- OUTSIDE RECORDS SUMMARY | 2024-09-13 08:31 | XMS_ITS | CCD ---
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 Name Role Phone Salam, Shaw Unavailable Unavailable Salam, Shaw Unavailable Unavailable Salam, Shaw Unavailable Unavailable NADERER BENSON~[phone] UNKNOWN Unavailable Unavailable Salam, Shaw Unavailable Unavailable Salam, Shaw Unavailable Unavailable Salam, Shaw Unavailable Unavailable NADERER BENSON~[phone] UNKNOWN Unavailable Unavailable Unavailable Primary Care Provider [...] BENSON Gregory Primary Care Unavailable NADERER, BENSON Primary Care Unavailable ZOË POOL Attending Unavailable Benson Weiss MD Primary Care Provider [phone] BENSON WEISS Primary Care Unavailable TABITHA MERINO Attending Unavailable DARLINGPUSHPA Admitting Unavailable PAUL, JOHN DEL ROSARIO Attending Unavailable NADERERoxana, BENSON Primary Care Unavailable REYNOLD KUO Attending Unavailable KENANERERoxana, BENSON Referring Unavailable NADERERoxana, BENSON Primary Care Unavailable NADERERoxana, BENSON Attending Unavailable NADERERoxana, BENSON Attending Unavailable Naderer Benson GAUTAM Primary Care Provider [phone] Jean Carlos Hdez Attending Unavailab Jean Carlos Powell Admitting Unavailab karen NO FAMILY, PHYSICIAN Primary Care Unavailable Allergies Allergy Classification Reported Allergen(s) Allergy Type Date of Onset Reaction(s) Facility (1 source) No Known Medication Allergies; Translations: [No Known Medication Allergies] Propensity to adverse reactions (disorder) [facility] Repository Medications Current Medications Medication Drug Class(es) Dates Sig (Normalized) Sig (Original) acetaminophen 500 mg oral tablet (5 sources) Start: 01-10-2024 End: 01-12-2025 take 2 tablets by mouth every six hours as needed for pain and fever and fever acetaminophen (Tylenol) 500 MG tablet Indications: Fever, unspecified fever cause Take 2 tablets (1,000 mg) by mouth every 6 (six) hours if needed for mild pain 30 tablet 11 01/13/2024 01/12/2025 Active Start: 10-17-2021 take 2 tablets by [facility] every six hours acetaminophen (TYLENOL) 325 mg tablet Take 2 tablets by mouth every 6 hours. 0 10/17/2021 Active Comment on above: Take 2 tablets by [facility] every 6 hours. benztropine mesylate 2 mg oral tablet (5 sources) Anticholinergic, Antihistamine take 1 tablet by mouth in the morning benztropine (Cogentin) 2 MG tablet Take 2 mg by mouth in the morning and 2 mg in the evening. Active Comment on above: Take 2 mg by mouth t wice daily. calcium polycarbophil 625 mg oral tablet (5 sources) Start: 04-07-20 24 take 1 tablet by mouth once daily polycarbophil (Fiber-Lax) 625 MG tablet Indications: Chronic constipation Take 1 tablet (625 mg) by mouth Daily 30 tablet 5 04/07/2024 Active take 1 tablet by claribel th in the morning, then take 1 tablet by mouth at bedtime polycarbophil (FIBERCON) 625 mg tablet Take 1 tablet (625 mg total) by mouth in the morning and 1 tablet (625 mg total) before bedtime. 0 Active Comment on above: Take 625 mg by mouth . clonazePAM 0.5 mg oral tablet (5 sources) Benzodiazepine take 1 tablet by mouth in the morning clonazePAM (KlonoPIN) 0.5 MG tablet Take 0.5 mg by mouth in the morning and 0.5 mg in the evening. Active take 1 tablet by claribel every twelve hours as needed clonazePAM (KLONOPIN) 1 mg tablet Take 1 mg by mouth twice daily as needed. 0 Active Comment on above: Take 1 mg by mouth t wice daily as needed. docusate sodium 100 mg oral capsule (5 sources) Start: 4 take 1 capsule by mouth in the morning Docusate Sodium (DSS) 100 MG capsule Indications: Chronic constipation Take 1 capsule (100 mg) by mouth in the morning. 60 capsule 5 11/04/2023 Active Comment on above: Take 100 mg by mouth twice daily. FLUoxetine 40 mg oral capsule (5 sources) Serotonin Reuptake Inhibitor take 1 capsule by mouth in the morning FLUoxetine (PROzac) 40 MG capsule Take 40 mg by mouth in the morning and 40 mg in the evening. Active take 1 capsule by mouth once cathy ly FLUoxetine HCl (PROZAC) 40 mg capsule Take 40 mg by mouth once daily. 0 Active Comment on above: Take 40 mg by mouth once daily. haloperidol 10 mg oral tablet (5 sources) Typical Antipsychotic take 1 tablet by mouth in the morning haloperidol (Haldol) 10 MG tablet Take 10 mg by mouth in the morning and 10 mg in the evening. Active take 1 tablet by mouth four [...] for pain. loratadine 10 mg oral tablet (5 sources) Start: 12-18-19 End: 12-17-19 take 1 tablet by mouth in the morning loratadine (Claritin) 10 MG tablet Indications: Seasonal allergic rhinitis due to pollen Take 1 tablet (10 mg) by mouth in the morning. 30 tablet 11 12/18/2023 12/17/2024 Active Comment on above: Take 10 mg [...] mouth nightly. 0 Active polyethylene glycol 3350 75549 mg powder for oral solution (4 sources) [...] Take 1 Packet by claribel once daily. Problems Active Problems Problem Classification Problem Date Documented Da te Episodic/Chronic Anal and rectal conditions (6 sources) Rectal prolapse; Translations: [Rectal pain] Onset: 01-08-2024 01-26-2024 Episodic Attention-deficit, conduct, and disruptive behavior disorders (1 source) Oppositional defiant disorder; Translations: [Oppositional defiant disorder] Onset: 01-07-2024 01-07-2024 Chronic Developmental disorders (1 source) Mild intellectual disability; Translations: [Mild intellectual disabilities] Onset: 01-07-2024 01-07-2024 Chronic Disorders usually diagnosed in infancy, childhood, or adolescence (1 source) Tic disorder; Translations: [Tic disorder, unspecified] Onset: 01-07-2024 01-07-2024 Chronic Gastrointestinal hemorrhage (1 source) Blood-tinged feces; Translations: [Melena] Episodic Other aftercare (4 sources) 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; Translations: [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] Onset: 02-19-2023 Episodic Other upper respiratory disease (1 source) Allergic rhinitis due to pollen; Translations: [Allergic rhinitis due to pollen] Onset: 01-07-2024 01-07-2024 Chronic Schizophrenia and other psychotic disorders (4 sources) Schizophrenia; Translations: [Schizophrenia, unspecified] Onset: 07-10-2021 07-10-2021 Chronic Unclassified (1 source) Bowel Issue Onset: 01-08-2024 Unclassified (1 source) Post-op Onset: 01-26-2024 Unclassified (1 source) Medical Problem Onset: 01-09-2024 Unclassified (1 source) [place] transfer Onset: 01-09-2024 Past or Other Problems Problem Classification Problem Date Documented Da te Episodic/Chronic Hemorrhoids (3 sources) Hemorrhoids; Translations: [Unspecified hemorrhoids] Onset: 10-17-2021 10-17-2021 Episodic Malaise and fatigue (1 source) Fatigue; Translations: [Other fatigue] Onset: 01-07-2024 01-07-2024 Episodic Other gastrointestinal disorders (1 source) Chronic constipation; Translations: [Other constipation] Onset: 01-07-2024 01-07-2024 Episodic Other nutritional; endocrine; and metabolic disorders (4 sources) Developmental delay; Translations: [Unspecified lack of expected normal physiological development in childhood] Onset: 07-10-2021 07-10-2021 Episodic Results Test Name Value Interpretation Reference Range Facility ALL CBC WITH AUTO DIFFon BASOPHILS ABSOLUTE AUTO 0 [facility] Basophils/100 WBC (Bld) 0.3 % 0.2 - 2.0 % [facility] Eosinophils/100 WBC (Bld) 0.6 % Low 0.9 - 7.0 % [facility] Erythrocyte distribution width (RBC) [Ratio] 21.9 % High 11.0 - 15.0 % [facility] Hematocrit (Bld) [Volume fraction] 39.7 % Low 42.0 - 54.0 % [facility] Hemoglobin (Bld) [Mass/Vol] 10.7 g/dL Low 14.0 - 18.0 g/dL [facility] IMMATURE GRANULOCYTES ABS AUTO 0.01 [facility] Immature granulocytes/100 WBC (Bld) 0.1 % 0.0 - 0.5 % [facility] Interpretation and review of laboratory results Abnormal [facility] LYMPHOCYTES ABSOLUTE AUTO 1.8 [facility] Lymphocytes/100 WBC (Bld) 27.6 % 20.5 - 60.0 % [facility] MCH (RBC) [Entitic mass] 17.5 pg Low 25.9 - 34.[address] [facility] MCHC (RBC) [Mass/Vol] 27 g/dL Low 29.9 - 35.2 g/dL [facility] MCV (RBC) [Entitic vol] 64.8 fL Low 80.0 - 94.[address] [facility] MONOCYTES ABSOLUTE AUTO 0.[address] [facility] Monocytes/100 WBC (Bld) 13.8 % High 1.7 - 12.0 % [facility] NEUTROPHILS ABSOLUTE AUTO 3.8 [facility] Neutrophils/100 WBC (Bld) 57.6 % 43.0 - 75.0 % [facility] Platelet mean volume (Bld) [Entitic vol] 9.6 fL 9.5 - 13.[address] [facility] TBH EO # 0 [facility] PLT [address] [facility] RBC 6.[address] [facility] Comment on above: HYPOCHROMASIA 1+ MICROCYTOSIS 2+ ANISOCYTOSIS 2+ OVALOCYTES 1+ TBH WBC 6.7 [facility] BASIC METABOLIC PANLon 01-09 Anion gap [Moles/Vol] 8 mmol/L Normal 5-15 [facility] Comment on above: Performed By: #### C ANDRES BRYANT, #### [facility] ([id number]) [address], [address] [place] [address] Calcium [Mass/Vol] 8.5 mg/dL Normal 8.5-10.5 [facility] Comment on above: Performed By: #### ANDRES Briggs BCA, #### [facility] ([id number]) [address], [address] [place] [address] Chloride [Moles/Vol] 106 mmol/L Normal 98-109 [facility] Comment on above: Performed By: #### Brigitte BRYANT BMP, #### [facility] ([id number]) [address], [address] [place] [address] CO2 [Moles/Vol] 28 mmol/L Normal 22-32 [facility] Comment on above: Performed By: #### Brigitte BRYANT BMP, #### [facility] ([id number]) [address], [address] [place] [address] Creatinine [Mass/Vol] 0.93 mg/dL Normal 0.60-1.30 [facility] Comment on above: Result Comment: METH OD TRACEABLE TO IDMS STANDARD Performed By: #### C MANNY BMP, #### [facility] ([id number]) [address], [address] [place] [address] eGFR (CKD-EPI) NON-RACE DEPENDENT >90 Normal >59 [facility] Comment on above: Result Comment: Reported eGFR is based on the CKD-EPI 2020 equation that does not use a race coefficient. Performed By: #### C ANDRES BRYANT, #### [facility] ([id number]) [address], [address] [place] [address] Glucose [Mass/Vol] 87 mg/dL Normal 65-99 [facility] Comment on above: Performed By: #### C ANDRES BRYANT, #### [facility] ([id number]) [address], [facility] [address] [place] [address] Potassium [Moles/Vol] 3.9 mmol/L Normal 3.5-5.0 [facility] Comment on above: Performed By: #### ANDRES Briggs BCA, #### [facility] ([id number]) [address], [address] [place] [address] Sodium [Moles/Vol] 142 mmol/L Normal 134-146 [facility] Comment on above: Performed By: #### Brigitte BRYANT [facility], #### [facility] ([id number]) [address], [address] [place] [address] Urea nitrogen [Mass/Vol] 13 mg/dL Normal 5-23 [facility] Comment on above: Performed By: #### Brigitte BRYANT [facility], #### [facility] ([id number]) [address] [address] [place] [address] CBC AND AUTO DIFFon 16 24 ABSOLUTE BASOPHIL 0.0 X10E9/L Normal 0.0-0.2 [facility] Comment on above: Performed By: #### ANDRES Briggs BCA, #### [facility] ([id number]) [address] [address] [place] [address] ABSOLUTE NEUTROPHIL 7.9 X10E9/L High 1.5-6.6 [facility] Comment on above: Performed By: #### ANDRES Briggs BCA, #### [facility] ([id number]) [address], [address] [place] [address] Basophils/100 WBC (Bld) 0.2 % Normal [facility] Comment on above: Performed By: #### ANDRES Briggs BCA, #### [facility] ([id number]) [address] [place] [address] Eosinophils (Bld) [#/Vol] 0.0 10*3/uL Normal 0.0-0.4 [facility] Comment on above: Performed By: #### ANDRES Briggs BCA, #### [facility] ([id number]) [address] [place] [address] Eosinophils/100 WBC (Bld) 0.2 % Normal [facility] Comment on above: Performed By: #### ANDRES Briggs BCA, #### [facility] ([id number]) [address] [place] [address] Erythrocyte distribution width (RBC) [Ratio] 20.7 % High 11.5-15.0 [facility] Comment on above: Performed By: #### ANDRES Briggs BCA, #### [facility] ([id number]) [address] [place] [address] FRAGMENT 1+ Abnormal NONE [facility] Comment on above: Performed By: #### ANDRES Briggs BCA, #### [facility] ([id number]) [address], [address] [place] [address] Hematocrit (Bld) [Volume fraction] 30.0 % Low 39-49 [facility] Comment on above: Performed By: #### ANDRES Briggs BCA, #### [facility] ([id number]) [address] [place] [address] Hemoglobin (Bld) [Mass/Vol] 8.7 g/dL Low 13.0-17.0 [facility] Comment on above: Performed By: #### Brigitte BRYANT, BMP, #### [facility] ([id number]) [address] [place] [address] HYPOCHROMIA 2+ Abnormal NONE [facility] Comment on above: Performed By: #### Brigitte BRYANT BMP, #### [facility] ([id number]) [address], [facility] [address] [place] [address] Lymphocytes (Bld) [#/Vol] 2.6 10*3/uL Normal 1.0-3.5 [facility] Comment on above: Performed By: #### Brigitte BRYANT [facility], #### [facility] ([id number]) [address], [facility] [address] [place] [address] Lymphocytes/100 WBC (Bld) 22.1 % Normal [facility] Comment on above: Performed By: #### Brigitte BRYANT BMP, #### [facility] ([id number]) [address], [address] [place] [address] MCH (RBC) [Entitic mass] 16.7 pg Low 27-34 [facility] Comment on above: Performed By: #### Brigitte BRYANT, BMP, #### [facility] ([id number]) [address], [address] [place] [address] MCHC (RBC) [Mass/Vol] 29.1 g/dL Low 32-36 [facility] Comment on above: Performed By: #### Brigitte BRYANT, BMP, #### [facility] ([id number]) [address], [address] [place] [address] MCV (RBC) [Entitic vol] 58 fL Low 80-100 [facility] Comment on above: Performed By: #### ANDRES Briggs BCA, #### [facility] ([id number]) [address] [place] [address] Monocytes (Bld) [#/Vol] 1.3 10*3/uL High 0-0.9 [facility] Comment on above: Performed By: #### ANDRES Briggs BCA, #### [facility] ([id number]) [address] [place] [address] Monocytes/100 WBC (Bld) 11.2 % Normal [facility] Comment on above: Performed By: #### ANDRES Briggs BCA, #### [facility] ([id number]) [address], [address] [place] [address] Neutrophils/100 WBC (Bld) 66.3 % Normal [facility] Comment on above: Performed By: #### ANDRES Briggs BCA, #### [facility] ([id number]) [address], [address] [place] [address] OVALOCYTE 2+ Abnormal NONE [facility] Comment on above: Performed By: #### ANDRES Briggs BCA, #### [facility] ([id number]) [address], [address] [place] [address] Platelet mean volume (Bld) [Entitic vol] 8.7 fL Normal 7-12 [facility] Comment on above: Performed By: #### ANDRES Briggs BCA, #### [facility] ([id number]) [address], [address] [place] [address] Platelets (Bld) [#/Vol] 326 10*3/uL Normal 150-450 [facility] Comment on above: Performed By: #### C ANDRES BRYANT, #### [facility] ([id number]) [address] [place] [address] RBC COUNT 5.21 X10E12/L Normal 4.10-5.70 [facility] Comment on above: Performed By: #### ANDRES Briggs BCA, #### [facility] ([id number]) [address] [place] [address] WBC (Bld) [#/Vol] 11.9 10*3/uL High 4.0-11.0 [facility] Comment on above: Performed By: #### ANDRES Briggs BCA, #### [facility] ([id number]) [address], [address] [place] [address] MAGNESIUMon 01-10-2024 Magnesium [Mass/Vol] 2.0 mg/dL Normal 1.8-2.6 [facility] Comment on above: Performed By: #### ANDRES Briggs BCA, #### [facility] ([id number]) [address], [address] [place] [address] BASIC METABOLIC PANLon 01-08 Anion gap [Moles/Vol] 9 mmol/L Normal 5-15 [facility] Comment on above: Performed By: #### ANDRES Briggs BCA, #### [facility] ([id number]) [address], [address] [place] [address] Calcium [Mass/Vol] 8.8 mg/dL Normal 8.5-10.5 [facility] Comment on above: Performed By: #### ANDRES Briggs BCA, #### [facility] ([id number]) [address], [address] [place] [address] Chloride [Moles/Vol] 107 mmol/L Normal 98-109 [facility] Comment on above: Performed By: #### C MANNY [facility], #### [facility] ([id number]) [address] [address] [place] [address] CO2 [Moles/Vol] 25 mmol/L Normal 22-32 [facility] Comment on above: Performed By: #### C MANNY [facility], #### [facility] ([id number]) [address], [facility] [address] [place] [address] Creatinine [Mass/Vol] 0.96 mg/dL Normal 0.60-1.30 [facility] Comment on above: Result Comment: METH OD TRACEABLE TO IDMS STANDARD Performed By: #### C ANDRES BRYANT, #### [facility] ([id number]) [address] [address] [place] [address] eGFR (CKD-EPI) NON-RACE DEPENDENT >90 Normal >59 [facility] Comment on above: Result Comment: Reported eGFR is based on the CKD-EPI 2020 equation that does not use a race coefficient. Performed By: #### C MANNY [facility], #### [facility] ([id number]) [address] [place] [address] Glucose [Mass/Vol] 117 mg/dL High 65-99 [facility] Comment on above: Performed By: #### C ANDRES BRYANT, #### [facility] ([id number]) [address] [address] [place] [address] Potassium [Moles/Vol] 4.5 mmol/L Normal 3.5-5.0 [facility] Comment on above: Performed By: #### C ANDRES BRYANT, #### [facility] ([id number]) [address], [facility] [address] [place] [address] Sodium [Moles/Vol] 141 mmol/L Normal 134-146 [facility] Comment on above: Performed By: #### C ANDRES BRYANT, #### [facility] ([id number]) [address], [address] [place] [address] Urea nitrogen [Mass/Vol] 19 mg/dL Normal 5-23 [facility] Comment on above: Performed By: #### Brigitte BRYANT BMP, #### [facility] ([id number]) [address], [address] [place] [address] CBC AND AUTO DIFFon 01-09-20 24 ACANTHOCYTE 2+ Abnormal NONE [facility] Comment on above: Performed By: #### Brigitte BRYANT, BMP, #### [facility] ([id number]) [address] [place] [address] Erythrocyte distribution width (RBC) [Ratio] 21.0 % High 11.5-15.0 [facility] Comment on above: Performed By: #### Brigitte BRYANT BMP, #### [facility] ([id number]) [address] [place] [address] FRAGMENT 1+ Abnormal NONE [facility] Comment on above: Performed By: #### ANDRES Briggs BCA, #### [facility] ([id number]) [address] [place] [address] Hematocrit (Bld) [Volume fraction] 32.9 % Low 39-49 [facility] Comment on above: Performed By: #### Brigitte BRYANT, BMP, #### [facility] ([id number]) [address], [address] [place] [address] Hemoglobin (Bld) [Mass/Vol] 9.4 g/dL Low 13.0-17.0 [facility] Comment on above: Performed By: #### Brigitte BRYANT, BMP, #### [facility] ([id number]) [address] [place] [address] HYPOCHROMIA 2+ Abnormal NONE [facility] Comment on above: Performed By: #### ANDRES Briggs BCA, #### [facility] ([id number]) [address] [place] [address] Lymphocytes (Bld) [#/Vol] 0.6 10*3/uL Low 1.0-3.5 [facility] Comment on above: Performed By: #### ANDRES Briggs BCA, #### [facility] ([id number]) [address] [place] [address] Lymphocytes/100 WBC (Bld) 4.0 % Normal [facility] Comment on above: Performed By: #### ANDRES Briggs BCA, #### [facility] ([id number]) [address] [place] [address] MCH (RBC) [Entitic mass] 16.4 pg Low 27-34 [facility] Comment on above: Performed By: #### ANDRES Briggs BCA, #### [facility] ([id number]) [address] [place] [address] MCHC (RBC) [Mass/Vol] 28.6 g/dL Low 32-36 [facility] Comment on above: Performed By: #### ANDRES Briggs BCA, #### [facility] ([id number]) [address] [place] [address] MCV (RBC) [Entitic vol] 57 fL Low 80-100 [facility] Comment on above: Performed By: #### ANDRES Briggs BCA, #### [facility] ([id number]) [address], [address] [place] [address] Monocytes (Bld) [#/Vol] 0.5 10*3/uL Normal 0-0.9 [facility] Comment on above: Performed By: #### C ANDRES BRYANT, #### [facility] ([id number]) [address] [place] [address] Monocytes/100 WBC (Bld) 3.0 % Normal [facility] Comment on above: Performed By: #### ANDRES Briggs BCA, #### [facility] ([id number]) [address], [address] [place] [address] Neutrophils (Bld) [#/Vol] 14.5 10*3/uL High 1.5-6.6 [facility] Comment on above: Performed By: #### ANDRES Briggs BCA, #### [facility] ([id number]) [address], [address] [place] [address] OVALOCYTE 2+ Abnormal NONE [facility] Comment on above: Performed By: #### ANDRES Briggs BCA, #### [facility] ([id number]) [address], [address] [place] [address] Platelet mean volume (Bld) [Entitic vol] 8.7 fL Normal 7-12 [facility] Comment on above: Performed By: #### ANDRES Briggs BCA, #### [facility] ([id number]) [address] [place] [address] Platelets (Bld) [#/Vol] 347 10*3/uL Normal 150-450 [facility] Comment on above: Performed By: #### ANDRES Briggs BCA, #### [facility] ([id number]) [address], [address] [place] [address] POLYCHROMASIA 1+ Abnormal NONE [facility] Comment on above: Performed By: #### ANDRES Briggs BCA, #### [facility] ([id number]) [address], [address] [place] [address] RBC COUNT 5.76 X10E12/L High 4.10-5.70 [facility] Comment on above: Performed By: #### Brigitte BRYANT BMP, [id number] #### [facility] ([id number]) [address] [place] [address] SEG NEUTROPHIL 93.0 % Normal [facility] Comment on above: Performed By: #### Brigitte BRYANT BMP, [id number] #### [facility] ([id number]) [address], [address] [place] [address] TEARDROP 1+ Abnormal NONE [facility] Comment on above: Performed By: #### Brigitte BRYANT BMP, 12096-5 #### [facility] ([id number]) [address], [address] [place] [address] WBC (Bld) [#/Vol] 15.6 10*3/uL High 4.0-11.0 [facility] Comment on above: Performed By: #### Brigitte BRYANT, BMP, 12044-9 #### [facility] ([id number]) [address], [address] [place] [address] MAGNESIUMon 01-09-2024 Magnesium [Mass/Vol] 2.0 mg/dL Normal 1.8-2.6 [facility] Comment on above: Performed By: #### Brigitte BRYANT BMP, 93929-6 #### [facility] ([id number]) [address], [address] [place] [address] Surgical Pathologyon 024 Surgical Pathology Normal [facility] Comment on above: Result Comment: [facility] [address] [place] [address] Surgical Pathology Consultation Patient Name:ADDIE COLBERTOB:2000 (Age: 23)Gender:MTaken:01/09/2024eported:01/13/2024hysician(s):Pushpa Silva MD ([phone])Copy To: Rec. #:[id number]: #[id number] Final Pathologic Diagnosis Rectosigmoidectomy: Mucosal ischemic change with superficial mucosal necrosis, acute inflammation, hyalinization of lamina propria and atrophic crypts. Strands of smooth muscle extending into lamina propria with surface erosion compatible with prolapse changes. No malignancy identified. Report Electronically Signed Out [facility]/01/13/2024Suangelita Cortez M.D. [place] [address], License number: [id number]. Clinical History Rectal prolapse, ischemic rectum. Gross [...] sections of proximal margin G edematous wall (7,ss,S20-29655, m1) . /01/09/2024 Specimen(s) Received Rectum and sigmoid Fee Codes(s): 1; 36962 CBC AND AUTO DIFFon 01-08-20 ABSOLUTE BASOPHIL 0.1 X10E9/L Normal 0.0-0.2 [facility] Comment on above: Performed By: #### P INR, 36642-4, CMP, CBCA #### [facility] ([id number]) [address] [place] [address] ABSOLUTE NEUTROPHIL 14.8 X10E9/L High 1.5-6.6 [facility] Comment on above: Performed By: #### P INR, 65087-0, CMP, CBCA #### [facility] ([id number]) [address] [place] [address] 46870 Basophils/100 WBC (Bld) 0.3 % Normal [facility] Comment on above: Performed By: #### P INR, 52593-5, CMP, CBCA #### [facility] ([id number]) [address] [place] [address] 42676 Eosinophils (Bld) [#/Vol] 0.0 10*3/uL Normal 0.0-0.4 [facility] Comment on above: Performed By: #### P INR, 06499-2, CMP, CBCA #### [facility] ([id number]) [address] [place] [address] 84172 Eosinophils/100 WBC (Bld) 0.0 % Normal [facility] Comment on above: Performed By: #### P INR, 11223-2, CMP, CBCA #### [facility] ([id number]) [address] [place] [address] 20765 Erythrocyte distribution width (RBC) [Ratio] 20.9 % High 11.5-15.0 [facility] Comment on above: Performed By: #### P INR, 78729-8, CMP, CBCA #### [facility] ([id number]) [address] [place] [address] 53761 Hematocrit (Bld) [Volume fraction] 33.4 % Low 39-49 [facility] Comment on above: Performed By: #### P INR, 73703-6, CMP, CBCA #### [facility] ([id number]) [address] [place] [address] 51591 Hemoglobin (Bld) [Mass/Vol] 9.5 g/dL Low 13.0-17.0 [facility] Comment on above: Performed By: #### P INR, 17081-0, CMP, CBCA #### [facility] ([id number]) [address] [place] [address] 08012 Lymphocytes (Bld) [#/Vol] 0.4 10*3/uL Low 1.0-3.5 [facility] Comment on above: Performed By: #### P INR, 11008-2, CMP, CBCA #### [facility] ([id number]) [address] [place] [address] 89509 Lymphocytes/100 WBC (Bld) 2.6 % Normal [facility] Comment on above: Performed By: #### P INR, 73771-8, CMP, CBCA #### [facility] ([id number]) [address] [place] [address] 88049 MCH (RBC) [Entitic mass] 16.4 pg Low 27-34 [facility] Comment on above: Performed By: #### P INR, 68241-2, CMP, CBCA #### [facility] ([id number]) [address] [place] [address] 03999 MCHC (RBC) [Mass/Vol] 28.6 g/dL Low 32-36 [facility] Comment on above: Performed By: #### P INR, 41196-9, CMP, CBCA #### [facility] ([id number]) [address] [place] [address] 92367 MCV (RBC) [Entitic vol] 58 fL Low 80-100 [facility] Comment on above: Performed By: #### P INR, 13903-6, CMP, CBCA #### [facility] ([id number]) [address] [place] [address] 17437 Monocytes (Bld) [#/Vol] 1.4 10*3/uL High 0-0.9 [facility] Comment on above: Performed By: #### P INR, 55911-9, CMP, CBCA #### [facility] ([id number]) [address] [place] [address] 90959 Monocytes/100 WBC (Bld) 8.5 % Normal [facility] Comment on above: Performed By: #### P INR, 84146-8, CMP, CBCA #### [facility] ([id number]) [address] [place] [address] 57826 Neutrophils/100 WBC (Bld) 88.6 % Normal [facility] Comment on above: Performed By: #### P INR, 57079-1, CMP, CBCA #### [facility] ([id number]) [address] [place] [address] 90763 Platelet mean volume (Bld) [Entitic vol] 8.7 fL Normal 7-12 [facility] Comment on above: Performed By: #### P INR, 61800-5, CMP, CBCA #### [facility] ([id number]) [address] [place] [address] 39789 Platelets (Bld) [#/Vol] 366 10*3/uL Normal 150-450 [facility] Comment on above: Performed By: #### P INR, 32851-7, CMP, CBCA #### [facility] ([id number]) [address] [place] [address] 44624 RBC COUNT 5.81 X10E12/L High 4.10-5.70 [facility] Comment on above: Performed By: #### P INR, 57078-2, CMP, CBCA #### [facility] ([id number]) [address] [place] [address] 73054 WBC (Bld) [#/Vol] 16.7 10*3/uL High 4.0-11.0 [facility] Comment on above: Performed By: #### P INR, 44861-7, CMP, CBCA #### [facility] ([id number]) [address] [place] [address] 19513 COMPREHENSIVE METABOLIC PANE Angel 01-08-2024 Albumin [Mass/Vol] 4.3 g/dL Normal 3.2-5.3 [facility] Comment on above: Performed By: #### P INR, 48246-1, CMP, CBCA #### [facility] ([id number]) [address] [place] [address] 01504 ALP [Catalytic activity/Vol] 67 U/L Normal 39-130 [facility] Comment on above: Performed By: #### P INR, 07614-5, CMP, CBCA #### [facility] ([id number]) [address] [place] [address] 59864 ALT [Catalytic activity/Vol] 19 U/L Normal 0-40 [facility] Comment on above: Performed By: #### P INR, 95736-8, CMP, CBCA #### [facility] ([id number]) [address] [place] [address] 20716 Anion gap [Moles/Vol] 6 mmol/L Normal 5-15 [facility] Comment on above: Performed By: #### P INR, 26059-0, CMP, CBCA #### [facility] ([id number]) [address] [place] [address] 36907 AST [Catalytic activity/Vol] 26 U/L Normal 0-41 [facility] Comment on above: Performed By: #### P INR, 78718-6, CMP, CBCA #### [facility] ([id number]) [address] [place] [address] 30385 Bilirubin [Mass/Vol] 0.5 mg/dL Normal 0.3-1.2 [facility] Comment on above: Performed By: #### P INR, 33238-5, CMP, CBCA #### [facility] ([id number]) [address] [place] [address] 30721 Calcium [Mass/Vol] 8.8 mg/dL Normal 8.5-10.5 [facility] Comment on above: Performed By: #### P INR, 76270-7, CMP, CBCA #### [facility] ([id number]) [address] [place] [address] 26360 Chloride [Moles/Vol] 102 mmol/L Normal 98-109 [facility] Comment on above: Performed By: #### P INR, 26314-6, CMP, CBCA #### [facility] ([id number]) [address] [place] [address] 09089 CO2 [Moles/Vol] 23 mmol/L Normal 22-32 [facility] Comment on above: Performed By: #### P INR, 52880-9, CMP, CBCA #### [facility] ([id number]) [address] [place] [address] 47117 Creatinine [Mass/Vol] 1.03 mg/dL Normal 0.70-1.20 [facility] Comment on above: Result Comment: METH OD TRACEABLE TO IDMS STANDARD Performed By: #### P INR, 83231-4, CMP, CBCA #### [facility] ([id number]) [address] [place] [address] 10484 eGFR (CKD-EPI) NON-RACE DEPENDENT >90 Normal >59 [facility] Comment on above: Result Comment: Reported eGFR is based on the CKD-EPI 2020 equation that does not use a race coefficient. Performed By: #### P INR, 69678-4, CMP, CBCA #### [facility] ([id number]) [address] [place] [address] 81773 Glucose [Mass/Vol] 114 mg/dL High 65-99 [facility] Comment on above: Performed By: #### P INR, 42985-6, CMP, CBCA #### [facility] ([id number]) [address] [place] [address] 15173 Potassium [Moles/Vol] 4.0 mmol/L Normal 3.5-5.0 [facility] Comment on above: Performed By: #### P INR, 86231-9, CMP, CBCA #### [facility] ([id number]) [address] [place] [address] 69911 Protein [Mass/Vol] 6.9 g/dL Normal 6.0-8.0 [facility] Comment on above: Performed By: #### P INR, 16297-6, CMP, CBCA #### [facility] ([id number]) [address] [place] [address] 24563 Sodium [Moles/Vol] 131 mmol/L Low 134-146 [facility] Comment on above: Performed By: #### P INR, 60607-1, CMP, CBCA #### [facility] ([id number]) [address] [place] [address] 49898 Urea nitrogen [Mass/Vol] 17 mg/dL Normal 5-23 [facility] Comment on above: Performed By: #### P INR, 32740-0, CMP, CBCA #### [facility] ([id number]) [address] [place] [address] 50098 PROTIME AND INRon 01-08-2024 INR Coag (PPP) [Relative time] 1.0 {INR} Normal 0.8-1.1 [facility] Comment on above: Performed By: #### P INR, 42493-5, CMP, CBCA #### [facility] ([id number]) [address] [place] [address] 29556 PT Coag (PPP) [Time] 12.0 s Normal 9.8-13.2 [facility] Comment on above: Result Comment: NEW REFERENCE RANGE Performed By: #### P INR, 72920-4, CMP, CBCA #### [facility] ([id number]) [address] [place] [address] 06749 aPTT Coag (PPP) [Time]on aPTT Coag (Bld) [Time] 37 s Normal 26-37 [facility] Comment on above: Result Comment: NEW REFERENCE RANGE Performed By: #### P INR, 25253-9, CMP, CBCA #### [facility] ([id number]) [address] [place] [address] 46271 CBC AUTO DIFFon 03-26-2023 BASO # 0.0 103/ul Normal 0.0-0.1 [facility] Comment on above: Performed By: #### C BC #### [facility] [address] [place] [address] Dr. Sonido Bejarano Basophils/100 WBC (Bld) 0.7 % Normal 0.2-2.0 [facility] Comment on above: Performed By: #### C BC #### [facility] [address] [place] [address] Dr. Sonido Bejarano EO # 0.1 103/ul Normal 0.0-0.7 [facility] Comment on above: Performed By: #### C BC #### [facility] [address] [place] [address] Dr. Sonido Bejarano Eosinophils/100 WBC (Bld) 1.0 % Normal 0.9-7.0 [facility] Comment on above: Performed By: #### C BC #### [facility] [address] [place] [address] Dr. Sonido Bejarano Erythrocyte distribution width (RBC) [Ratio] 22.3 % Critically high 11.0-15.0 [facility] Comment on above: Performed By: #### C BC #### [facility] [address] [place] [address] Dr. Sonido Bejarano Hematocrit (Bld) [Volume fraction] 32.0 % Critically low 42.0-54.0 [facility] Comment on above: Performed By: #### C BC #### [facility] [address] [place] [address] Dr. Sonido Bejarano Hemoglobin (Bld) [Mass/Vol] 8.3 g/dL Critically low 14.0-18.0 [facility] Comment on above: Performed By: #### C BC #### [facility] [address] [place] [address] Dr. Sonido Bejarano IG # 0.01 10e3/ul Normal 0.00-0.03 [facility] Comment on above: Performed By: #### C BC #### [facility] [address] [place] [address] Dr. Sonido Bejarano IG % 0.2 % Normal 0.0-0.5 [facility] Comment on above: Performed By: #### C BC #### [facility] [address] [place] [address] Dr. Sonido Bejarano LYMPH # 1.2 103/ul Normal 1.2-3.8 [facility] Comment on above: Performed By: #### C BC #### [facility] [address] [place] [address] Dr. Sonido Bejarano Lymphocytes/100 WBC (Bld) 20.1 % Critically low 20.5-60.0 [facility] Comment on above: Performed By: #### C BC #### [facility] [address] [place] [address] Dr. Sonido Bejarano MANUAL DIFF REQ NO Normal [facility] Comment on above: Performed By: #### C BC #### [facility] [address] [place] [address] Dr. Sonido Bejarano MCH (RBC) [Entitic mass] 15.7 pg Critically low 25.9-34.0 [facility] Comment on above: Performed By: #### C BC #### [facility] [address] [address] [address] Sonido Bejarano MCHC (RBC) [Mass/Vol] 25.9 g/dL Critically low 29.9-35.2 [facility] Comment on above: Performed By: #### C BC #### [facility] [address] [address] [address] Sonido Bejarano MCV (RBC) [Entitic vol] 60.6 fL Critically low 80.0-94.0 [facility] Comment on above: Performed By: #### C BC #### [facility] [address] [address] [address] Sonido Bejarano MONO # 0.7 103/ul Normal 0.3-0.8 [facility] Comment on above: Performed By: #### C BC #### [facility] [address] [address] [address] Sonido Bejarano Monocytes/100 WBC (Bld) 12.2 % Critically high 1.7-12.0 [facility] Comment on above: Performed By: #### C BC #### [facility] [address] [place] [address] Dr. Sonido Bejarano NEUT # 3.8 103/ul Normal 1.4-6.5 [facility] Comment on above: Performed By: #### C BC #### [facility] [address] [address] [address] Sonido Bejarano Neutrophils/100 WBC (Bld) 65.8 % Normal 43.0-75.0 [facility] Comment on above: Performed By: #### C BC #### [facility] [address] [address] [address] Sonido Bejarano Platelet mean volume (Bld) [Entitic vol] 9.2 fL Critically low 9.5-13.5 [facility] Comment on above: Performed By: #### C BC #### [facility] [address] [address] [address] Sonido Bejarano PLT 369 103/ul Normal 150-450 [facility] Comment on above: Performed By: #### C BC #### [facility] [address] [place] [address] Dr. Sonido Bejarano RBC 5.28 106/ul Normal 4.70-6.10 [facility] Comment on above: Performed By: #### C BC #### [facility] [address] [place] [address] Dr. Sonido Bejarano WBC 5.8 103/ul Normal 4.0-11.0 [facility] Comment on above: Performed By: #### C BC #### [facility] [address] [place] [address] Dr. Sonido Bejarano CBC AUTO DIFFon 02-19-2023 BASO # 0.0 103/ul Normal 0.0-0.1 [facility] Comment on above: Performed By: #### C BC #### [facility] [address] [place] [address] Dr. Sonido Bejarano Basophils/100 WBC (Bld) 0.7 % Normal 0.2-2.0 [facility] Comment on above: Performed By: #### C BC #### [facility] [address] [place] [address] Dr. Sonido Bejarano EO # 0.1 103/ul Normal 0.0-0.7 [facility] Comment on above: Performed By: #### C BC #### [facility] [address] [place] [address] Dr. Sonido Bejarano Eosinophils/100 WBC (Bld) 1.1 % Normal 0.9-7.0 [facility] Comment on above: Performed By: #### C BC #### [facility] [address] [place] [address] Dr. Sonido Bejarano Erythrocyte distribution width (RBC) [Ratio] 22.7 % Critically high 11.0-15.0 [facility] Comment on above: Performed By: #### C BC #### [facility] [address] [place] [address] Dr. Sonido Bejarano Hematocrit (Bld) [Volume fraction] 32.9 % Critically low 42.0-54.0 [facility] Comment on above: Performed By: #### C BC #### [facility] [address] [address] [address] Sonido Bejarano Hemoglobin (Bld) [Mass/Vol] 8.2 g/dL Critically low 14.0-18.0 [facility] Comment on above: Performed By: #### C BC #### [facility] [address] [address] [address] Sonido Bejarano IG # 0.02 10e3/ul Normal 0.00-0.03 [facility] Comment on above: Performed By: #### C BC #### [facility] [address] [address] [address] Sonido Bejarano IG % 0.3 % Normal 0.0-0.5 [facility] Comment on above: Performed By: #### C BC #### [facility] [address] [place] [address] Dr. Sonido Bejarano LYMPH # 1.4 103/ul Normal 1.2-3.8 [facility] Comment on above: Performed By: #### C BC #### [facility] [address] [place] [address] Dr. Sonido Bejarano Lymphocytes/100 WBC (Bld) 22.8 % Normal 20.5-60.0 [facility] Comment on above: Performed By: #### C BC #### [facility] [address] [place] [address] Dr. Sonido Bejarano MANUAL DIFF REQ NO Normal [facility] Comment on above: Performed By: #### C BC #### [facility] [address] [address] [address] Sonido Bejarano MCH (RBC) [Entitic mass] 15.3 pg Critically low 25.9-34.0 [facility] Comment on above: Performed By: #### C BC #### [facility] [address] [place] [address] Dr. Sonido Bejarano MCHC (RBC) [Mass/Vol] 24.9 g/dL Critically low 29.9-35.2 [facility] Comment on above: Performed By: #### C BC #### [facility] [address] [address] [address] Sonido Bejarano MCV (RBC) [Entitic vol] 61.3 fL Critically low 80.0-94.0 [facility] Comment on above: Performed By: #### C BC #### [facility] [address] [address] [address] Sonido Bejarano MONO # 0.7 103/ul Normal 0.3-0.8 [facility] Comment on above: Performed By: #### C BC #### [facility] [address] [address] [address] Sonido Bejarano Monocytes/100 WBC (Bld) 11.6 % Normal 1.7-12.0 [facility] Comment on above: Performed By: #### C BC #### [facility] [address] [place] [address] Dr. Sonido Bejarano NEUT # 3.9 103/ul Normal 1.4-6.5 [facility] Comment on above: Performed By: #### C BC #### [facility] [address] [place] [address] Dr. Sonido Bejarano Neutrophils/100 WBC (Bld) 63.5 % Normal 43.0-75.0 [facility] Comment on above: Performed By: #### C BC #### [facility] [address] [place] [address] Dr. Sonido Bejarano Platelet mean volume (Bld) [Entitic vol] 9.3 fL Critically low 9.5-13.5 [facility] Comment on above: Performed By: #### C BC #### [facility] [address] [place] [address] Dr. Sonido Bejarano PLT 394 103/ul Normal 150-450 [facility] Comment on above: Performed By: #### C BC #### [facility] [address] [address] [address] Sonido Bejarano RBC 5.37 106/ul Normal 4.70-6.10 [facility] Comment on above: Performed By: #### C BC #### [facility] [address] [address] [address] Sonido Bejarano WBC 6.1 103/ul Normal 4.0-11.0 [facility] Comment on above: Performed By: #### C BC #### [facility] [address] [place] [address] Dr. Sonido Bejarano CBC AUTO DIFFon 01-15-2023 BASO # 0.0 103/ul Normal 0.0-0.1 [facility] Comment on above: Performed By: #### C BC #### [facility] [address] [place] [address] Dr. Sonido Bejarano Basophils/100 WBC (Bld) 0.3 % Normal 0.2-2.0 [facility] Comment on above: Performed By: #### C BC #### [facility] [address] [place] [address] Dr. Sonido Bejarano EO # 0.0 103/ul Normal 0.0-0.7 [facility] Comment on above: Performed By: #### C BC #### [facility] [address] [place] [address] Dr. Sonido Bejarano Eosinophils/100 WBC (Bld) 0.4 % Critically low 0.9-7.0 [facility] Comment on above: Performed By: #### C BC #### [facility] [address] [place] [address] Dr. Sonido Bejarano Erythrocyte distribution width (RBC) [Ratio] 22.4 % Critically high 11.0-15.0 [facility] Comment on above: Performed By: #### C BC #### [facility] [facility] [address] [place] [address] Dr. Sonido Bejarano Hematocrit (Bld) [Volume fraction] 31.5 % Critically low 42.0-54.0 [facility] Comment on above: Performed By: #### C BC #### [facility] [address] [place] [address] Dr. Sonido Bejarano Hemoglobin (Bld) [Mass/Vol] 8.1 g/dL Critically low 14.0-18.0 [facility] Comment on above: Performed By: #### C BC #### [facility] [address] [address] [address] Sonido Bejarano IG # 0.02 10e3/ul Normal 0.00-0.03 [facility] Comment on above: Performed By: #### C BC #### [facility] [address] [address] [address] Sonido Bejarano IG % 0.3 % Normal 0.0-0.5 [facility] Comment on above: Performed By: #### C BC #### [facility] [address] [place] [address] Dr. Sonido Bejarano LYMPH # 1.3 103/ul Normal 1.2-3.8 [facility] Comment on above: Performed By: #### C BC #### [facility] [address] [place] [address] Dr. Sonido Bejarano Lymphocytes/100 WBC (Bld) 19.4 % Critically low 20.5-60.0 [facility] Comment on above: Performed By: #### C BC #### [facility] [address] [place] [address] Dr. Sonido Bejarano MANUAL DIFF REQ NO Normal [facility] Comment on above: Performed By: #### C BC #### [facility] [address] [place] [address] Dr. Sonido Bejarano MCH (RBC) [Entitic mass] 15.5 pg Critically low 25.9-34.0 [facility] Comment on above: Performed By: #### C BC #### [facility] [address] [place] [address] Dr. Sonido Bejarano MCHC (RBC) [Mass/Vol] 25.7 g/dL Critically low 29.9-35.2 [facility] Comment on above: Performed By: #### C BC #### [facility] [address] [place] [address] Dr. Sonido Bejarano MCV (RBC) [Entitic vol] 60.2 fL Critically low 80.0-94.0 [facility] Comment on above: Performed By: #### C BC #### [facility] [id number] Sonido Bejarano MONO # 0.9 103/ul Critically high 0.3-0.8 [facility] Comment on above: Performed By: #### C BC #### [facility] [id number] Sonido Bejarano Monocytes/100 WBC (Bld) 12.9 % Critically high 1.7-12.0 [facility] Comment on above: Performed By: #### C BC #### [facility] [address] [address] [address] Sonido Bejarano NEUT # 4.5 103/ul Normal 1.4-6.5 [facility] Comment on above: Performed By: #### C BC #### [facility] [address] [place] [address] Dr. Sonido Bejarano Neutrophils/100 WBC (Bld) 66.7 % Normal 43.0-75.0 [facility] Comment on above: Performed By: #### C BC #### [facility] [address] [place] [address] Dr. Sonido Bejarano Platelet mean volume (Bld) [Entitic vol] 9.2 fL Critically low 9.5-13.5 [facility] Comment on above: Performed By: #### C BC #### [facility] [address] [address] [address] Sonido Bejarano PLT 356 103/ul Normal 150-450 [facility] Comment on above: Performed By: #### C BC #### [facility] [address] [place] [address] Dr. Sonido Bejarano RBC 5.23 106/ul Normal 4.70-6.10 [facility] Comment on above: Result Comment: 2+ P OIKILOCYTOSIS 2+ ANISOCYTOSIS 2+ OVALOCYTE 1+ TEAR DROP CELL 2+ ACANTHOCYTE Performed By: #### C BC #### [facility] [id number] Sonido Bejarano WBC 6.8 103/ul Normal 4.0-11.0 [facility] Comment on above: Performed By: #### C BC #### [facility] [address] [address] [address] Sonido Bejarano CBC AUTO DIFFon 12-20-2022 BASO # 0.0 103/ul Normal 0.0-0.1 [facility] Comment on above: Performed By: #### C BC #### [facility] [address] [address] [address] Sonido Bejarano Basophils/100 WBC (Bld) 0.5 % Normal 0.2-2.0 [facility] Comment on above: Performed By: #### C BC #### [facility] [address] [place] [address] Dr. Sonido Bejarano EO # 0.1 103/ul Normal 0.0-0.7 [facility] Comment on above: Performed By: #### C BC #### [facility] [address] [place] [address] Dr. Sonido Bejarano Eosinophils/100 WBC (Bld) 1.3 % Normal 0.9-7.0 [facility] Comment on above: Performed By: #### C BC #### [facility] [address] [place] [address] Dr. Sonido Bejarano Erythrocyte distribution width (RBC) [Ratio] 22.8 % Critically high 11.0-15.0 [facility] Comment on above: Performed By: #### C BC #### [facility] [address] [place] [address] Dr. Sonido Bejarano Hematocrit (Bld) [Volume fraction] 34.5 % Critically low 42.0-54.0 [facility] Comment on above: Performed By: #### C BC #### [facility] [address] [place] [address] Dr. Sonido Bejarano Hemoglobin (Bld) [Mass/Vol] 8.9 g/dL Critically low 14.0-18.0 [facility] Comment on above: Performed By: #### C BC #### [facility] [address] [place] [address] Dr. Sonido Bejarano IG # 0.01 10e3/ul Normal 0.00-0.03 [facility] Comment on above: Performed By: #### C BC #### [facility] [address] [address] [address] Sonido Bejarano IG % 0.2 % Normal 0.0-0.5 [facility] Comment on above: Performed By: #### C BC #### [facility] [address] [place] [address] Dr. Sonido Bejarano LYMPH # 1.0 103/ul Critically low 1.2-3.8 [facility] Comment on above: Performed By: #### C BC #### [facility] [address] [place] [address] Dr. Sonido Bejarano Lymphocytes/100 WBC (Bld) 18.3 % Critically low 20.5-60.0 [facility] Comment on above: Performed By: #### C BC #### [facility] [address] [place] [address] Dr. Sonido Bejarano MANUAL DIFF REQ NO Normal [facility] Comment on above: Performed By: #### C BC #### [facility] [address] [place] [address] Dr. Sonido Bejarano MCH (RBC) [Entitic mass] 15.6 pg Critically low 25.9-34.0 [facility] Comment on above: Performed By: #### C BC #### [facility] [address] [place] [address] Dr. Sonido Bejarano MCHC (RBC) [Mass/Vol] 25.8 g/dL Critically low 29.9-35.2 [facility] Comment on above: Performed By: #### C BC #### [facility] [address] [place] [address] Dr. Sonido Bejarano MCV (RBC) [Entitic vol] 60.6 fL Critically low 80.0-94.0 [facility] Comment on above: Performed By: #### C BC #### [facility] [address] [place] [address] Dr. Sonido Bejarano MONO # 0.7 103/ul Normal 0.3-0.8 [facility] Comment on above: Performed By: #### C BC #### [facility] [address] [address] [address] Sonido Bejarano Monocytes/100 WBC (Bld) 13.2 % Critically high 1.7-12.0 [facility] Comment on above: Performed By: #### C BC #### [facility] [address] [address] [address] Sonido Bejarano NEUT # 3.7 103/ul Normal 1.4-6.5 [facility] Comment on above: Performed By: #### C BC #### [facility] [address] [place] [address] Dr. Sonido Bejarano Neutrophils/100 WBC (Bld) 66.5 % Normal 43.0-75.0 [facility] Comment on above: Performed By: #### C BC #### [facility] [address] [place] [address] Dr. Sonido Bejarano Platelet mean volume (Bld) [Entitic vol] 9.6 fL Normal 9.5-13.5 [facility] Comment on above: Performed By: #### C BC #### [facility] [address] [place] [address] Dr. Sonido Bejarano PLT 441 103/ul Normal 150-450 [facility] Comment on above: Performed By: #### C BC #### [facility] [address] [place] [address] Dr. Sonido Bejarano RBC 5.69 106/ul Normal 4.70-6.10 [facility] Comment on above: Result Comment: Anis ocytosis 2+ Hypochromasia 2+ Poikilocytosis 2+ Ovalocytes 1+ Tear drop cells 1+ Acanthocytes 1+ Performed By: #### C BC #### [facility] [address] [place] [address] Dr. Sonido Bejarano WBC 5.5 103/ul Normal 4.0-11.0 [facility] Comment on above: Performed By: #### C BC #### [facility] [address] [place] [address] Dr. Sonido Bejarano CBC AUTO DIFFon 11-20-2022 BASO # 0.1 103/ul Normal 0.0-0.1 [facility] Comment on above: Performed By: #### C BC #### [facility] [address] [place] [address] Dr. Sonido Bejarano Basophils/100 WBC (Bld) 1.0 % Normal 0.2-2.0 [facility] Comment on above: Performed By: #### C BC #### [facility] [address] [place] [address] Dr. Sonido Bejarano EO # 0.1 103/ul Normal 0.0-0.7 [facility] Comment on above: Performed By: #### C BC #### [facility] [address] [place] [address] Dr. Sonido Bejarano Eosinophils/100 WBC (Bld) 2.1 % Normal 0.9-7.0 [facility] Comment on above: Performed By: #### C BC #### [facility] [address] [place] [address] Dr. Sonido Bejarano Erythrocyte distribution width (RBC) [Ratio] 23.0 % Critically high 11.0-15.0 [facility] Comment on above: Performed By: #### C BC #### [facility] [address] [place] [address] Dr. Sonido Bejarano Hematocrit (Bld) [Volume fraction] 32.6 % Critically low 42.0-54.0 [facility] Comment on above: Performed By: #### C BC #### [facility] [address] [place] [address] Dr. Sonido Bejarano Hemoglobin (Bld) [Mass/Vol] 8.0 g/dL Critically low 14.0-18.0 [facility] Comment on above: Performed By: #### C BC #### [facility] [address] [place] [address] Dr. Sonido Bejarano IG # 0.01 10e3/ul Normal 0.00-0.03 [facility] Comment on above: Performed By: #### C BC #### [facility] [address] [place] [address] Dr. Sonido Bejarano IG % 0.2 % Normal 0.0-0.5 [facility] Comment on above: Performed By: #### C BC #### [facility] [address] [place] [address] Dr. Sonido Bejarano LYMPH # 1.1 103/ul Critically low 1.2-3.8 [facility] Comment on above: Performed By: #### C BC #### [facility] [address] [place] [address] Dr. Sonido Bejarano Lymphocytes/100 WBC (Bld) 22.0 % Normal 20.5-60.0 [facility] Comment on above: Performed By: #### C BC #### [facility] [address] [place] [address] Dr. Sonido Bejarano MANUAL DIFF REQ NO Normal [facility] Comment on above: Performed By: #### C BC #### [facility] [address] [place] [address] Dr. Sonido Bejarano MCH (RBC) [Entitic mass] 15.6 pg Critically low 25.9-34.0 [facility] Comment on above: Performed By: #### C BC #### [facility] [address] [place] [address] Dr. Sonido Bejarano MCHC (RBC) [Mass/Vol] 24.5 g/dL Critically low 29.9-35.2 [facility] Comment on above: Performed By: #### C BC #### [facility] [address] [place] [address] Dr. Sonido Bejarano MCV (RBC) [Entitic vol] 63.4 fL Critically low 80.0-94.0 [facility] Comment on above: Performed By: #### C BC #### [facility] [address] [place] [address] Dr. Sonido Bejarano MONO # 0.6 103/ul Normal 0.3-0.8 [facility] Comment on above: Performed By: #### C BC #### [facility] [address] [place] [address] Dr. Sonido Bejarano Monocytes/100 WBC (Bld) 13.0 % Critically high 1.7-12.0 [facility] Comment on above: Performed By: #### C BC #### [facility] [address] [place] [address] Dr. Sonido Bejarano NEUT # 3.0 103/ul Normal 1.4-6.5 [facility] Comment on above: Performed By: #### C BC #### [facility] [address] [place] [address] Dr. Sonido Bejarano Neutrophils/100 WBC (Bld) 61.7 % Normal 43.0-75.0 [facility] Comment on above: Performed By: #### C BC #### [facility] [address] [place] [address] Dr. Sonido Bejarano Platelet mean volume (Bld) [Entitic vol] 8.6 fL Critically low 9.5-13.5 [facility] Comment on above: Performed By: #### C BC #### [facility] [address] [place] [address] Dr. Sonido Bejarano PLT 333 103/ul Normal 150-450 [facility] Comment on above: Performed By: #### C BC #### [facility] [address] [place] [address] Dr. Sonido Bejarano RBC 5.14 106/ul Normal 4.70-6.10 [facility] Comment on above: Performed By: #### C BC #### [facility] [address] [place] [address] Dr. Sonido Bejarano WBC 4.9 103/ul Normal 4.0-11.0 [facility] Comment on above: Performed By: #### C BC #### [facility] [address] [place] [address] Dr. Sonido Bejarano CBC AUTO DIFFon 10-11-2022 BASO # 0.0 103/ul Normal 0.0-0.1 [facility] Comment on above: Performed By: #### C BC #### [facility] [address] [place] [address] Dr. Sonido Bejarano Basophils/100 WBC (Bld) 0.8 % Normal 0.2-2.0 [facility] Comment on above: Performed By: #### C BC #### [facility] [address] [place] [address] Dr. Sonido Bejarano EO # 0.1 103/ul Normal 0.0-0.7 [facility] Comment on above: Performed By: #### C BC #### [facility] [address] [place] [address] Dr. oSnido Bejarano Eosinophils/100 WBC (Bld) 1.5 % Normal 0.9-7.0 [facility] Comment on above: Performed By: #### C BC #### [facility] [address] [place] [address] Dr. Sonido Bejarano Erythrocyte distribution width (RBC) [Ratio] 22.4 % Critically high 11.0-15.0 [facility] Comment on above: Performed By: #### C BC #### [facility] [address] [place] [address] Dr. Sonido Bejarano Hematocrit (Bld) [Volume fraction] 32.3 % Critically low 42.0-54.0 [facility] Comment on above: Performed By: #### C BC #### [facility] [address] [place] [address] Dr. Sonido Bejarano Hemoglobin (Bld) [Mass/Vol] 8.1 g/dL Critically low 14.0-18.0 [facility] Comment on above: Performed By: #### C BC #### [facility] [address] [place] [address] Dr. Sonido Bejarano IG # 0.01 10e3/ul Normal 0.00-0.03 [facility] Comment on above: Performed By: #### C BC #### [facility] [address] [place] [address] Dr. Sonido Bejarano IG % 0.2 % Normal 0.0-0.5 [facility] Comment on above: Performed By: #### C BC #### [facility] [address] [place] [address] Dr. Sonido Bejarano LYMPH # 1.2 103/ul Normal 1.2-3.8 [facility] Comment on above: Performed By: #### C BC #### [facility] [address] [address] [address] Sonido Bejarano Lymphocytes/100 WBC (Bld) 22.8 % Normal 20.5-60.0 [facility] Comment on above: Performed By: #### C BC #### [facility] [address] [place] [address] Dr. Sonido Bejarano MANUAL DIFF REQ NO Normal [facility] Comment on above: Performed By: #### C BC #### [facility] [address] [place] [address] Dr. Sonido Bejarano MCH (RBC) [Entitic mass] 15.1 pg Critically low 25.9-34.0 [facility] Comment on above: Performed By: #### C BC #### [facility] [address] [place] [address] Dr. Sonido Bejarano MCHC (RBC) [Mass/Vol] 25.1 g/dL Critically low 29.9-35.2 [facility] Comment on above: Performed By: #### C BC #### [facility] [address] [place] [address] Dr. Sonido Bejarano MCV (RBC) [Entitic vol] 60.0 fL Critically low 80.0-94.0 [facility] Comment on above: Performed By: #### C BC #### [facility] [address] [place] [address] Dr. Sonido Bejarano MONO # 0.7 103/ul Normal 0.3-0.8 [facility] Comment on above: Performed By: #### C BC #### [facility] [address] [place] [address] Dr. Sonido Bejarano Monocytes/100 WBC (Bld) 12.5 % Critically high 1.7-12.0 [facility] Comment on above: Performed By: #### C BC #### [facility] [address] [place] [address] Dr. Sonido Bejarano NEUT # 3.2 103/ul Normal 1.4-6.5 [facility] Comment on above: Performed By: #### C BC #### [facility] [address] [place] [address] Dr. Sonido Bejarano Neutrophils/100 WBC (Bld) 62.2 % Normal 43.0-75.0 [facility] Comment on above: Performed By: #### C BC #### [facility] [address] [place] [address] Dr. Sonido Bejarano Platelet mean volume (Bld) [Entitic vol] 8.6 fL Critically low 9.5-13.5 [facility] Comment on above: Performed By: #### C BC #### [facility] [address] [place] [address] Dr. Sonido Bejarano PLT 345 103/ul Normal 150-450 [facility] Comment on above: Performed By: #### C BC #### [facility] [address] [place] [address] Dr. Sonido Bejarano RBC 5.38 106/ul Normal 4.70-6.10 [facility] Comment on above: Performed By: #### C BC #### [facility] [address] [place] [address] Dr. Sonido Bejarano WBC 5.2 103/ul Normal 4.0-11.0 [facility] Comment on above: Performed By: #### C BC #### [facility] [address] [place] [address] Dr. Sonido Bejarano CBC W MANUAL DIFFon 09-18-20 22 ANISOCYTOSIS 3+ Normal [facility] Comment on above: Performed By: #### C BCMAN #### [facility] [address] [place] [address] Dr. Sonido Bejarano ATYPICAL LYMPH # Normal [facility] Comment on above: Performed By: #### C BCMAN #### [facility] [address] [place] [address] Dr. Sonido Bejarano ATYPICAL LYMPH % Normal [facility] Comment on above: Performed By: #### C BCMAN #### [facility] [address] [place] [address] Dr. Sonido Bejarano BAND # Normal 0.0-0.3 [facility] Comment on above: Performed By: #### C BCMAN #### [facility] [address] [place] [address] Dr. Sonido Bejarano BAND % Normal 0-5 [facility] Comment on above: Performed By: #### C BCMAN #### [facility] [address] [place] [address] Dr. Sonido Bejarano BASOM # 0.00 103/ul Normal 0.00-0.10 [facility] Comment on above: Performed By: #### C BCMAN #### [facility] [address] [place] [address] Dr. Sonido Bejarano BASOM % 0.0 % Critically low 0.2-2.0 [facility] Comment on above: Performed By: #### C BCMAN #### [facility] [address] [place] [address] Dr. Sonido Bejarano BLAST # Normal [facility] Comment on above: Performed By: #### C BCKATHERINE #### [facility] [address] [place] [address] Dr. Sonido Bejarano BLAST % Normal [facility] Comment on above: Performed By: #### C BCKATHERINE #### [facility] [address] [place] [address] Dr. Sonido Bejarano CORRECTED WBC Normal 4.0-11.[address] [facility] Comment on above: Performed By: #### C BCKATHERINE #### [facility] [address] [place] [address] Dr. Sonido Bejarano EOS # 0.08 103/ul Normal 0.00-0.70 [facility] Comment on above: Performed By: #### C BCMAN #### [facility] [facility] [address] [place] [address] Dr. oSnido Bejarano EOS% 2.0 % Normal 0.9-7.0 [facility] Comment on above: Performed By: #### C BCKATHERINE #### [facility] [address] [place] [address] Dr. Sonido Bejarano HCT 31.1 % Critically low 42.0-54.0 [facility] Comment on above: Performed By: #### C RAMILA #### [facility] [address] [address] [address] Sonido Bejarano HGB 8.3 g/dl Critically low 14.0-18.0 [facility] Comment on above: Performed By: #### C RAMILA #### [facility] [address] [address] [address] Sonido Bejarano HYPOCHROMASIA SLIGHT Normal [facility] Comment on above: Performed By: #### C RAMILA #### [facility] [address] [address] [address] Sonido Bejarano LYMPHM # 1.13 103/ul Critically low 1.20-3.80 [facility] Comment on above: Performed By: #### C RAMILA #### [facility] [address] [place] [address] Dr. Sonido Bejarano LYMPHM% 27.0 % Normal 20.5-60.0 [facility] Comment on above: Performed By: #### C RAMILA #### [facility] [address] [address] [address] Sonido Bejarano MCH 15.9 pg Critically low 25.9-34.0 [facility] Comment on above: Performed By: #### C RAMILA #### [facility] [address] [address] [address] Sonido Bejarano MCHC 26.7 g/dl Critically low 29.9-35.2 [facility] Comment on above: Performed By: #### C RAMILA #### [facility] [address] [address] [address] Sonido Bejarano MCV 59.5 fL Critically low 80.0-94.0 [facility] Comment on above: Performed By: #### C RAMILA #### [facility] [address] [place] [address] Dr. Sonido Bejarano METAMYELOCYTE # Normal [facility] Comment on above: Performed By: #### C RAMILA #### [facility] [address] [address] [address] Sonido Bejarano METAMYELOCYTE % Normal [facility] Comment on above: Performed By: #### C RAMILA #### [facility] [address] [place] [address] Dr. Sonido Bejarano MICROCYTOSIS 3+ Normal [facility] Comment on above: Performed By: #### C RAMILA #### [facility] [address] [address] [address] Sonido Bejarano MONOM# 0.55 103/ul Normal 0.30-0.80 [facility] Comment on above: Performed By: #### C RAMILA #### [facility] [address] [place] [address] Dr. Sonido Bejarano MONOM% 13.0 % Critically high 1.7-12.0 [facility] Comment on above: Performed By: #### C RAMILA #### [facility] [address] [place] [address] Dr. Sonido Bejarano MPV 9.7 fL Normal 9.5-13.5 [facility] Comment on above: Performed By: #### C RAMILA #### [facility] [address] [place] [address] Dr. Sonido Bejarano MYELOCYTE # Normal [facility] Comment on above: Performed By: #### C RAMILA #### [facility] [address] [place] [address] Dr. Sonido Bejarano MYELOCYTE % Normal [facility] Comment on above: Performed By: #### C RAMILA #### [facility] [address] [place] [address] Dr. Sonido Bejarano NRBC Normal [facility] Comment on above: Performed By: #### C RAMILA #### [facility] [address] [address] [address] Sonido Bejarano PLT 421 103/ul Normal 150-450 [facility] Comment on above: Performed By: #### C RAMILA #### [facility] [address] [place] [address] Dr. Sonido Bejarano RBC 5.23 106/ul Normal 4.70-6.10 [facility] Comment on above: Performed By: #### C BCMAN #### [facility] [address] [address] [address] Sonido Bejarano RDW 22.2 % Critically high 11.0-15.0 [facility] Comment on above: Performed By: #### C BCMAN #### [facility] [address] [place] [address] Dr. Sonido Bejarano SEG # 2.44 103/ul Normal 1.40-6.50 [facility] Comment on above: Performed By: #### C BCMAN #### [facility] [address] [place] [address] Dr. Sonido Bejarano SEG % 58.0 % Normal 43.0-75.0 [facility] Comment on above: Performed By: #### C OSWALDOMAN #### [facility] [address] [place] [address] Dr. Sonido Bejarano WBC 4.2 103/ul Normal 4.0-11.0 [facility] Comment on above: Performed By: #### C OSWALDOMAN #### [facility] [address] [place] [address] Dr. Sonido Bejarano CBC AUTO DIFFon 08-21-2022 BASO # 0.0 103/ul Normal 0.0-0.1 [facility] Comment on above: Performed By: #### C BC #### [facility] [address] [place] [address] Dr. Sonido Bejarano Basophils/100 WBC (Bld) 0.6 % Normal 0.2-2.0 [facility] Comment on above: Performed By: #### C BC #### [facility] [address] [place] [address] Dr. Sonido Bejarano EO # 0.1 103/ul Normal 0.0-0.7 [facility] Comment on above: Performed By: #### C BC #### [facility] [address] [place] [address] Dr. Sonido Bejarano Eosinophils/100 WBC (Bld) 1.0 % Normal 0.9-7.0 [facility] Comment on above: Performed By: #### C BC #### [facility] [address] [place] [address] Dr. Sonido Bejarano Erythrocyte distribution width (RBC) [Ratio] 21.9 % Critically high 11.0-15.0 [facility] Comment on above: Result Comment: anis ocytosis 2+ Performed By: #### C BC #### [facility] [address] [place] [address] Dr. Sonido Bejarano Hematocrit (Bld) [Volume fraction] 32.7 % Critically low 42.0-54.0 [facility] Comment on above: Performed By: #### C BC #### [facility] [address] [place] [address] Dr. Sonido Bejarano Hemoglobin (Bld) [Mass/Vol] 8.4 g/dL Critically low 14.0-18.0 [facility] Comment on above: Performed By: #### C BC #### [facility] [address] [place] [address] Dr. Sonido Bejarano IG # 0.01 10e3/ul Normal 0.00-0.03 [facility] Comment on above: Performed By: #### C BC #### [facility] [address] [place] [address] Dr. Sonido Bejarano IG % 0.2 % Normal 0.0-0.5 [facility] Comment on above: Performed By: #### C BC #### [facility] [address] [place] [address] Dr. Sonido Bejarano LYMPH # 1.1 103/ul Critically low 1.2-3.8 [facility] Comment on above: Performed By: #### C BC #### [facility] [address] [place] [address] Dr. Sonido Bejarano Lymphocytes/100 WBC (Bld) 22.3 % Normal 20.5-60.0 [facility] Comment on above: Performed By: #### C BC #### [facility] [address] [place] [address] Dr. Sonido Bejarano MANUAL DIFF REQ NO Normal [facility] Comment on above: Performed By: #### C BC #### [facility] [address] [place] [address] Dr. Sonido Bejarano MCH (RBC) [Entitic mass] 15.3 pg Critically low 25.9-34.0 [facility] Comment on above: Performed By: #### C BC #### [facility] [address] [place] [address] Dr. Sonido Bejarano MCHC (RBC) [Mass/Vol] 25.7 g/dL Critically low 29.9-35.2 [facility] Comment on above: Result Comment: hypo chromasia 2+ Performed By: #### C BC #### [facility] [address] [place] [address] Dr. Sonido Bejarano MCV (RBC) [Entitic vol] 59.6 fL Critically low 80.0-94.0 [facility] Comment on above: Result Comment: micr ocytosis 3+ Performed By: #### C BC #### [facility] [address] [place] [address] Dr. Sonido Bejarano MONO # 0.5 103/ul Normal 0.3-0.8 [facility] Comment on above: Performed By: #### C BC #### [facility] [address] [place] [address] Dr. Sonido Bejarano Monocytes/100 WBC (Bld) 10.8 % Normal 1.7-12.0 [facility] Comment on above: Performed By: #### C BC #### [facility] [address] [place] [address] Dr. Sonido Bejarano NEUT # 3.2 103/ul Normal 1.4-6.5 [facility] Comment on above: Performed By: #### C BC #### [facility] [address] [place] [address] Dr. Sonido Bejarano Neutrophils/100 WBC (Bld) 65.1 % Normal 43.0-75.0 [facility] Comment on above: Performed By: #### C BC #### [facility] [address] [place] [address] Dr. Sonido Bejarano Platelet mean volume (Bld) [Entitic vol] 9.5 fL Normal 9.5-13.5 [facility] Comment on above: Performed By: #### C BC #### [facility] [address] [place] [address] Dr. Sonido Bejarano PLT 415 103/ul Normal 150-450 [facility] Comment on above: Performed By: #### C BC #### [facility] [address] [place] [address] Dr. Sonido Bejarano RBC 5.49 106/ul Normal 4.70-6.10 [facility] Comment on above: Performed By: #### C BC #### [facility] [address] [place] [address] Dr. Sonido Bejarano WBC 5.0 103/ul Normal 4.0-11.0 [facility] Comment on above: Performed By: #### C BC #### [facility] [address] [place] [address] Dr. Sonido Bejarano CBC AUTO DIFFon 08-02-2022 BASO # 0.0 103/ul Normal 0.0-0.1 [facility] Comment on above: Performed By: #### C BC #### [facility] [address] [place] [address] Dr. Sonido Bejarano Basophils/100 WBC (Bld) 0.3 % Normal 0.2-2.0 [facility] Comment on above: Performed By: #### C BC #### [facility] [address] [place] [address] Dr. Sonido Bejarano EO # 0.0 103/ul Normal 0.0-0.7 [facility] Comment on above: Performed By: #### C BC #### [facility] [address] [place] [address] Dr. Sonido Bejarano Eosinophils/100 WBC (Bld) 0.7 % Critically low 0.9-7.0 [facility] Comment on above: Performed By: #### C BC #### [facility] [address] [place] [address] Dr. Sonido Bejarano Erythrocyte distribution width (RBC) [Ratio] 21.9 % Critically high 11.0-15.0 [facility] Comment on above: Performed By: #### C BC #### [facility] [address] [address] [address] Sonido Bejarano Hematocrit (Bld) [Volume fraction] 30.0 % Critically low 42.0-54.0 [facility] Comment on above: Performed By: #### C BC #### [facility] [address] [place] [address] Dr. Sonido Bejarano Hemoglobin (Bld) [Mass/Vol] 7.8 g/dL Critically low 14.0-18.0 [facility] Comment on above: Performed By: #### C BC #### [facility] [address] [place] [address] Dr. Sonido Bejarano IG # 0.01 10e3/ul Normal 0.00-0.03 [facility] Comment on above: Performed By: #### C BC #### [facility] [address] [place] [address] Dr. Sonido Bejarano IG % 0.2 % Normal 0.0-0.5 [facility] Comment on above: Performed By: #### C BC #### [facility] [address] [place] [address] Dr. Sonido Bejarano LYMPH # 1.0 103/ul Critically low 1.2-3.8 [facility] Comment on above: Performed By: #### C BC #### [facility] [address] [place] [address] Dr. Sonido Bejarano Lymphocytes/100 WBC (Bld) 18.0 % Critically low 20.5-60.0 [facility] Comment on above: Performed By: #### C BC #### [facility] [address] [place] [address] Dr. Sonido Bejarano MANUAL DIFF REQ NO Normal [facility] Comment on above: Performed By: #### C BC #### [facility] [address] [place] [address] Dr. Sonido Bejarano MCH (RBC) [Entitic mass] 15.9 pg Critically low 25.9-34.0 [facility] Comment on above: Performed By: #### C BC #### [facility] [address] [address] [address] Sonido Bejarano MCHC (RBC) [Mass/Vol] 26.0 g/dL Critically low 29.9-35.2 [facility] Comment on above: Performed By: #### C BC #### [facility] [address] [address] [address] Sonido Bejarano MCV (RBC) [Entitic vol] 61.2 fL Critically low 80.0-94.0 [facility] Comment on above: Performed By: #### C BC #### [facility] [address] [address] [address] Sonido Bejarano MONO # 0.5 103/ul Normal 0.3-0.8 [facility] Comment on above: Performed By: #### C BC #### [facility] [address] [place] [address] Dr. Sonido Bejarano Monocytes/100 WBC (Bld) 8.7 % Normal 1.7-12.0 [facility] Comment on above: Performed By: #### C BC #### [facility] [address] [address] [address] Sonido Bejarano NEUT # 4.1 103/ul Normal 1.4-6.5 [facility] Comment on above: Performed By: #### C BC #### [facility] [address] [place] [address] Dr. Sonido Bejarano Neutrophils/100 WBC (Bld) 72.1 % Normal 43.0-75.0 [facility] Comment on above: Performed By: #### C BC #### [facility] [address] [address] [address] Sonido Bejarano Platelet mean volume (Bld) [Entitic vol] 9.3 fL Critically low 9.5-13.5 [facility] Comment on above: Performed By: #### C BC #### [facility] [address] [place] [address] Dr. Sonido Bejarano PLT 339 103/ul Normal 150-450 [facility] Comment on above: Performed By: #### C BC #### [facility] [address] [place] [address] Dr. Sonido Bejarano RBC 4.90 106/ul Normal 4.70-6.10 [facility] Comment on above: Performed By: #### C BC #### [facility] [address] [place] [address] Dr. Sonido Bejarano WBC 5.7 103/ul Normal 4.0-11.0 [facility] Comment on above: Performed By: #### C BC #### [facility] [address] [place] [address] Dr. Sonido Bejarano CBC AUTO DIFFon 06-17-2022 BASO # 0.0 103/ul Normal 0.0-0.1 [facility] Comment on above: Performed By: #### C BC #### [facility] [address] [place] [address] Dr. Sonido Bejarano Basophils/100 WBC (Bld) 0.7 % Normal 0.2-2.0 [facility] Comment on above: Performed By: #### C BC #### [facility] [address] [place] [address] Dr. Sonido Bejarano EO # 0.3 103/ul Normal 0.0-0.7 [facility] Comment on above: Performed By: #### C BC #### [facility] [address] [place] [address] Dr. Sonido Bejarano Eosinophils/100 WBC (Bld) 5.3 % Normal 0.9-7.0 [facility] Comment on above: Performed By: #### C BC #### [facility] [address] [place] [address] Dr. Sonido Bejarano Erythrocyte distribution width (RBC) [Ratio] 22.1 % Critically high 11.0-15.0 [facility] Comment on above: Performed By: #### C BC #### [facility] [address] [place] [address] Dr. Sonido Bejarano Hematocrit (Bld) [Volume fraction] 32.2 % Critically low 42.0-54.0 [facility] Comment on above: Performed By: #### C BC #### [facility] [address] [place] [address] Dr. Sonido Bejarano Hemoglobin (Bld) [Mass/Vol] 8.2 g/dL Critically low 14.0-18.0 [facility] Comment on above: Performed By: #### C BC #### [facility] [address] [place] [address] Dr. Sonido Bejarano IG # 0.01 10e3/ul Normal 0.00-0.03 [facility] Comment on above: Performed By: #### C BC #### [facility] [address] [place] [address] Dr. Sonido Bejarano IG % 0.2 % Normal 0.0-0.5 [facility] Comment on above: Performed By: #### C BC #### [facility] [address] [place] [address] Dr. Sonido Bejarano LYMPH # 1.1 103/ul Critically low 1.2-3.8 [facility] Comment on above: Performed By: #### C BC #### [facility] [address] [place] [address] Dr. Sonido Bejarano Lymphocytes/100 WBC (Bld) 19.3 % Critically low 20.5-60.0 [facility] Comment on above: Performed By: #### C BC #### [facility] [address] [place] [address] Dr. Sonido Bejarano MANUAL DIFF REQ NO Normal [facility] Comment on above: Performed By: #### C BC #### [facility] [address] [place] [address] Dr. Sonido Bejarano MCH (RBC) [Entitic mass] 15.8 pg Critically low 25.9-34.0 [facility] Comment on above: Performed By: #### C BC #### [facility] [address] [place] [address] Dr. Sonido Bejarano MCHC (RBC) [Mass/Vol] 25.5 g/dL Critically low 29.9-35.2 [facility] Comment on above: Performed By: #### C BC #### [facility] [address] [address] [address] Sonido Bejarano MCV (RBC) [Entitic vol] 62.0 fL Critically low 80.0-94.0 [facility] Comment on above: Performed By: #### C BC #### [facility] [address] [address] [address] Sonido Bejarano MONO # 0.9 103/ul Critically high 0.3-0.8 [facility] Comment on above: Performed By: #### C BC #### [facility] [address] [address] [address] Sonido Bejarano Monocytes/100 WBC (Bld) 16.0 % Critically high 1.7-12.0 [facility] Comment on above: Performed By: #### C BC #### [facility] [address] [place] [address] Dr. Sonido Bejarano NEUT # 3.2 103/ul Normal 1.4-6.5 [facility] Comment on above: Performed By: #### C BC #### [facility] [address] [place] [address] Dr. Sonido Bejarano Neutrophils/100 WBC (Bld) 58.5 % Normal 43.0-75.0 [facility] Comment on above: Performed By: #### C BC #### [facility] [address] [place] [address] Dr. Sonido Bejarano Platelet mean volume (Bld) [Entitic vol] 9.3 fL Critically low 9.5-13.5 [facility] Comment on above: Performed By: #### C BC #### [facility] [address] [place] [address] Dr. Sonido Bejarano PLT 335 103/ul Normal 150-450 [facility] Comment on above: Performed By: #### C BC #### [facility] [address] [place] [address] Dr. Sonido Bejarano RBC 5.19 106/ul Normal 4.70-6.10 [facility] Comment on above: Performed By: #### C BC #### [facility] [address] [address] [address] Sonido Bejarano WBC 5.5 103/ul Normal 4.0-11.0 [facility] Comment on above: Performed By: #### C BC #### [facility] [address] [place] [address] Dr. Sonido Bejarano CBC AUTO DIFFon 05-15-2022 BASO # 0.0 103/ul Normal 0.0-0.1 [facility] Comment on above: Performed By: #### C BC #### [facility] [address] [place] [address] Dr. Sonido Bejarano Basophils/100 WBC (Bld) 0.8 % Normal 0.2-2.0 [facility] Comment on above: Performed By: #### C BC #### [facility] [address] [place] [address] Dr. Sonido Bejarano EO # 0.1 103/ul Normal 0.0-0.7 [facility] Comment on above: Performed By: #### C BC #### [facility] [address] [place] [address] Dr. Sonido Bejarano Eosinophils/100 WBC (Bld) 2.3 % Normal 0.9-7.0 [facility] Comment on above: Performed By: #### C BC #### [facility] [address] [place] [address] Dr. Sonido Bejarano Erythrocyte distribution width (RBC) [Ratio] 21.5 % Critically high 11.0-15.0 [facility] Comment on above: Performed By: #### C BC #### [facility] [address] [place] [address] Dr. Sonido Bejarano Hematocrit (Bld) [Volume fraction] 30.5 % Critically low 42.0-54.0 [facility] Comment on above: Performed By: #### C BC #### [facility] [address] [place] [address] Dr. Sonido Bejarano Hemoglobin (Bld) [Mass/Vol] 7.9 g/dL Critically low 14.0-18.0 [facility] Comment on above: Performed By: #### C BC #### [facility] [address] [address] [address] Sonido Bejarano IG # 0.01 10e3/ul Normal 0.00-0.03 [facility] Comment on above: Performed By: #### C BC #### [facility] [address] [address] [address] Sonido Bejarano IG % 0.2 % Normal 0.0-0.5 [facility] Comment on above: Performed By: #### C BC #### [facility] [address] [place] [address] Dr. Sonido Bejarano LYMPH # 1.3 103/ul Normal 1.2-3.8 [facility] Comment on above: Performed By: #### C BC #### [facility] [address] [place] [address] Dr. Sonido Bejarano Lymphocytes/100 WBC (Bld) 24.6 % Normal 20.5-60.0 [facility] Comment on above: Performed By: #### C BC #### [facility] [address] [place] [address] Dr. Sonido Bejarano MANUAL DIFF REQ NO Normal [facility] Comment on above: Performed By: #### C BC #### [facility] [address] [place] [address] Dr. Sonido Bejarano MCH (RBC) [Entitic mass] 15.6 pg Critically low 25.9-34.0 [facility] Comment on above: Performed By: #### C BC #### [facility] [address] [place] [address] Dr. Sonido Bejarano MCHC (RBC) [Mass/Vol] 25.9 g/dL Critically low 29.9-35.2 [facility] Comment on above: Performed By: #### C BC #### [facility] [address] [place] [address] Dr. Sonido Bejarano MCV (RBC) [Entitic vol] 60.4 fL Critically low 80.0-94.0 [facility] Comment on above: Performed By: #### C BC #### [facility] [address] [place] [address] Dr. Sonido Bejarano MONO # 0.6 103/ul Normal 0.3-0.8 [facility] Comment on above: Performed By: #### C BC #### [facility] [address] [place] [address] Dr. Sonido Bejarano Monocytes/100 WBC (Bld) 12.1 % Critically high 1.7-12.0 [facility] Comment on above: Performed By: #### C BC #### [facility] [address] [place] [address] Dr. Sonido Bejarano NEUT # 3.1 103/ul Normal 1.4-6.5 [facility] Comment on above: Performed By: #### C BC #### [facility] [address] [place] [address] Dr. Sonido Bejarano Neutrophils/100 WBC (Bld) 60.0 % Normal 43.0-75.0 [facility] Comment on above: Performed By: #### C BC #### [facility] [address] [place] [address] Dr. Sonido Bejarano Platelet mean volume (Bld) [Entitic vol] 9.6 fL Normal 9.5-13.5 [facility] Comment on above: Performed By: #### C BC #### [facility] [address] [place] [address] Dr. Sonido Bejarano PLT 399 103/ul Normal 150-450 [facility] Comment on above: Performed By: #### C BC #### [facility] [address] [place] [address] Dr. Sonido Bejarano RBC 5.05 106/ul Normal 4.70-6.10 [facility] Comment on above: Performed By: #### C BC #### [facility] [address] [place] [address] Dr. Sonido Bejarano WBC 5.1 103/ul Normal 4.0-11.0 [facility] Comment on above: Performed By: #### C BC #### [facility] [address] [place] [address] Dr. Sonido Bejarano CBC AUTO DIFFon 04-15-2022 BASO # 0.0 103/ul Normal 0.0-0.1 [facility] Comment on above: Performed By: #### C BC #### [facility] [address] [place] [address] Dr. Sonido Bejarano Basophils/100 WBC (Bld) 0.3 % Normal 0.2-2.0 [facility] Comment on above: Performed By: #### C BC #### [facility] [address] [place] [address] Dr. Sonido Bejarano EO # 0.1 103/ul Normal 0.0-0.7 [facility] Comment on above: Performed By: #### C BC #### [facility] [address] [place] [address] Dr. Sonido Bejarano Eosinophils/100 WBC (Bld) 1.0 % Normal 0.9-7.0 [facility] Comment on above: Performed By: #### C BC #### [facility] [address] [place] [address] Dr. Sonido Bejarano Erythrocyte distribution width (RBC) [Ratio] 21.2 % Critically high 11.0-15.0 [facility] Comment on above: Performed By: #### C BC #### [facility] [address] [place] [address] Dr. Sonido Bejarano Hematocrit (Bld) [Volume fraction] 32.2 % Critically low 42.0-54.0 [facility] Comment on above: Performed By: #### C BC #### [facility] [address] [place] [address] Dr. Sonido Bejarano Hemoglobin (Bld) [Mass/Vol] 8.3 g/dL Critically low 14.0-18.0 [facility] Comment on above: Performed By: #### C BC #### [facility] [address] [place] [address] Dr. Sonido Bejarano IG # 0.03 10e3/ul Normal 0.00-0.03 [facility] Comment on above: Performed By: #### C BC #### [facility] [address] [place] [address] Dr. Sonido Bejarano IG % 0.4 % Normal 0.0-0.5 [facility] Comment on above: Performed By: #### C BC #### [facility] [address] [place] [address] Dr. Sonido Bejarano LYMPH # 1.0 103/ul Critically low 1.2-3.8 [facility] Comment on above: Performed By: #### C BC #### [facility] [address] [place] [address] Dr. Sonido Bejarano Lymphocytes/100 WBC (Bld) 15.2 % Critically low 20.5-60.0 [facility] Comment on above: Performed By: #### C BC #### [facility] [address] [place] [address] Dr. Sonido Bejarano MANUAL DIFF REQ NO Normal [facility] Comment on above: Performed By: #### C BC #### [facility] [address] [place] [address] Dr. Sonido Bejarano MCH (RBC) [Entitic mass] 16.1 pg Critically low 25.9-34.0 [facility] Comment on above: Performed By: #### C BC #### [facility] [address] [place] [address] Dr. Sonido Bejarano MCHC (RBC) [Mass/Vol] 25.8 g/dL Critically low 29.9-35.2 [facility] Comment on above: Performed By: #### C BC #### [facility] [address] [place] [address] Dr. Sonido Bejarano MCV (RBC) [Entitic vol] 62.4 fL Critically low 80.0-94.0 [facility] Comment on above: Performed By: #### C BC #### [facility] [address] [place] [address] Dr. Sonido Bejarano MONO # 0.6 103/ul Normal 0.3-0.8 [facility] Comment on above: Performed By: #### C BC #### [facility] [address] [place] [address] Dr. Sonido Bejarano Monocytes/100 WBC (Bld) 8.5 % Normal 1.7-12.0 [facility] Comment on above: Performed By: #### C BC #### [facility] [address] [place] [address] Dr. Sonido Bejarano NEUT # 5.0 103/ul Normal 1.4-6.5 [facility] Comment on above: Performed By: #### C BC #### [facility] [address] [place] [address] Dr. Sonido Bejarano Neutrophils/100 WBC (Bld) 74.6 % Normal 43.0-75.0 [facility] Comment on above: Performed By: #### C BC #### [facility] [address] [place] [address] Dr. Sonido Bejarano Platelet mean volume (Bld) [Entitic vol] 9.9 fL Normal 9.5-13.5 [facility] Comment on above: Performed By: #### C BC #### [facility] [address] [place] [address] Dr. Sonido Bejarano PLT 355 103/ul Normal 150-450 [facility] Comment on above: Performed By: #### C BC #### [facility] [address] [place] [address] Dr. Sonido Bejarano RBC 5.16 106/ul Normal 4.70-6.10 [facility] Comment on above: Result Comment: 1+ o valocytes slight hypochromic slight microchromic Performed By: #### C BC #### [facility] [address] [place] [address] Dr. Sonido Bejarano WBC 6.7 103/ul Normal 4.0-11.0 [facility] Comment on above: Performed By: #### C BC #### [facility] [address] [place] [address] Dr. 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 Normal [facility] RJ COLBERT ([id number]) 2000 Genia Reyez* Date Time Provider Department 03/28/22 ARNOLD GENAO [facility] During your visit today, we recorded the following information about you: Essie Pickard Pss 03/28/2022 1:41 PM Signed Patient called and left message regarding prescription from today's visit return call to [phone] Charley Mcclelland, RN 03/28/2022 2:49 PM Signed Returned call. Spoke with Rj's nurse. She states she needs a script sent to his pharmacy for the magnesium supplement for constipation. Script will be sent. No other questions or concerns at this time. Allergies As of Date: 03/28/2022 (No Known Allergies) Date Reviewed: 03/28/2022 Reviewed by: Yamile Berrios MA - Fully Assessed Reason for Visit: Patient Question [8472] Prescriptions as of 03/28/2022 - acetaminophen (TYLENOL) [...] Encounter Status:Closed by CHARLEY MCCLELLAND on 03/28/22 [facility] Telephone ([id number]) RJ COLBERT ([id number]) 2000 [address]ia Reyez* Date Time Provider Department 03/28/22 ARNOLD GENAO [id number] During your visit today, we recorded the following information about you: Sara Rose ADM 03/28/2022 3:45 PM Signed Pharmacy, [facility], [facility], phone , any pharmacist to clarify about carbonate? CALM is long term able to order as food item? Please call to discuss. Charley Mcclelland RN 03/28/2022 4:14 PM Signed Spoke with the pharmacist and she states that she does not provide food items. She will speak with the nurse at the long term. Allergies As of Date: 03/28/2022 (No Known [...] Encounter Status:Closed by CHARLEY MCCLELLAND on 03/28/22 [facility] CNOVon 11-16-2021 CNOV Office Visit ([facility] ) RJ COLBERT ([id number]) 2000 [address]ia [place] Date Time Provider Department 11/16/21 1:30 PM CRISTAL NAVA During your visit today, we recorded the following information about you: Pulse Blood pressure Weight Height 60/minute 136/80 96.2 kg 1.803 m Cristal Nava APRN.CALL OR CONTACT CENTRE OPERATOR 11/16/2021 12:59 PM Signed COLORECTAL SURGERY [...] results with patient and POA. Cristal Nava APRN.[facility] Colorectal Surgery Referring Provider: ARNOLD GENAO [[id number]] Allergies As of Date: 11/16/2021 (No Known Allergies) Date Reviewed: 11/16/2021 Reviewed by: Cristal Nava APRN.[facility] - Fully Assessed Reason for Visit: [...] Hemorrho (more content not included)... Normal [facility] ANES POSTPROC EVALon 021 ANES POSTPROC EVAL HNO ID: [id number] Author: Michael Martínez MD Service: Anesthesiology Author Type: Anesthesiologist Type: Anesthesia Postprocedure Evaluation Filed: 10/17/2021 10:23 AM Note Text: POST ANESTHESIA EVALUATION NOTE : 2000 Procedure Summary Date: 10/17/21 Room / Location: [address] Anesthesia Start: 841 Anesthesia Stop: 913 [...] 10/17/21954 Resp 16 10/17/21954 SpO2 100 % 12/22/21 0955 Post Anesthesia Patient Status Patient Evaluation: [...] team. Anesthesia Observations No Documentation SIGNATURE: Michael aMrtínez MD PATIENT NAME: Rj Colbert DATE: October 17, 2021 TIME: 10:23 AM CSN: [id number] [facility] ANES PRE-OPon 10-17-2021 ANES PRE-OP HNO ID: [id number] Author: Michael Martínez MD Service: Anesthesiology Author Type: Anesthesiologist Type: Anesthesia Preprocedure Evaluation Filed: 10/17/2021 8:32 AM Note Text: ANESTHESIOLOGY DAY OF SURGERY NOTE : 2000 Procedure Information Date/Time: 10/17/21729 Procedure: HEMORRHOIDECTOMY EXTERNAL > 2 COLUMNS/GROUPS (N/A ) Location: [address] Surgeons: Arnold Genao MD Estimated body mass [...] October 17, 2021 TIME: 8:27 AM CSN: [id number] [facility] BRIEF OP NOTon 10-17-2021 BRIEF OP NOT HNO ID: [id number] Author: Jared Rowe MD Service: Colorectal Author Type: Resident Type: Brief Op Note Filed: 10/17/2021 9:15 AM Note Text: BRIEF OPERATIVE / PROCEDURE NOTE LOG ID: [id number] SURGERY/PROCEDURE DATE: 10/17/2021 INCISION/PROCEDURE START TIME: 8:55 AM INCISION CLOSE/PROCEDURE END TIME: 9:02 AM SURGEON(S)/PROCEDURALIS T(S) AND [employer](S): Surgeon(s) and Role: * Arnold Genao MD [...] DATE: October 17, 2021 TIME: 9:13 AM [facility] HISTORY PHYSICALon HISTORY PHYSICAL HNO ID: [id number] Author: Jared Rowe MD Service: Colorectal Author Type: Resident Type: HANDP Filed: 10/17/2021 7:22 AM Note Text: Attestation signed by Arnold Genao MD at 10/30/2021 11:18 AM hp UPDATED HISTORY AND PHYSICAL EXAMINATION SERVICE DATE: [...] October 17, 2021 TIME: 7:22 AM Normal [facility] OPERATIVE NOon 10-17-2021 OPERATIVE NO HNO ID: [id number] Author: Arnold Genao MD Service: Colorectal Author Type: Physician Type: Operative Report Filed: 10/30/2021 11:21 AM Note Text: [facility] - Operative Report RJ COLBERT : 2000 AGE: 21. SEX: M PATIENT TYPE: [place] [facility] [facility] LOCATION: [facility] ATTENDING PHYSICIAN: Arnold Genao M.D. CSN NUMBER: [id number] DATE OF SURGERY/PROCEDURE: 10/17/2021 INCISION/PROCEDURE START TIME: 8:55 AM INCISION CLOSE/PROCEDURE END TIME: 9:02 AM PREOPERATIVE DIAGNOSIS: Hemorrhoids. POSTOPERATIVE DIAGNOSIS: Hemorrhoids. SURGEON: Arnold Genao M.D. [employer]: Jared. SURGERY/PROCEDURE: Ablation. ANESTHESIA: General ESTIMATED BLOOD [...] was overall very minor. Arnold Genao M.D. BC:[id number] /[id number] Normal [facility] HISTORY PHYSICALon 1 HISTORY PHYSICAL HNO ID: [id number] Author: Zahira Heath APRN.HUSAM Service: ? Author [...] PAT today with a caregiver from his long term. States he is having around 5 bowel [...] fevers. Neuro: No history of TIA's, stroke, BROKE WORKER tumor, impaired sensorium, hemiplegia, paraplegia or quadraplegia. No neurological symptoms or problems. Respiratory: No history of current cough or dyspnea, or pneumonia in the past 6 weeks. No history of respiratory/pulmonary symptoms or problems. Cardiovascular: No history of HTN requiring medication, no history of angina, CHF, MT, cardiac surgery or stents. Denies rest pain, gangrene or revascularization/amput ation for PVD. No history of cardiovascular symptoms [...] Pulse (more content not included)... Normal [facility] CNOVon 08-31-2021 CNOV Office Visit ([facility] ) RJ COLBERT ([id number]) 2000 [place] [facility] Date Time Provider Department 08/31/21 1:30 PM ARNOLD GENAO [facility] During your visit today, we [...] Anorectal: External exam reveals : see below Presidential Support Specialist present: yes Assessment Assessment and Plan: Rj Colbert is a 21 year old male who is doing relatively well after his recent rubber band ligation. He still has some rectal bleeding and it is difficult to assess the exact amount. If the bleeding persists we will consider internal hemorrhoidectomy. Arnold Genao MD Colorectal Surgery Referring Provider: ELHAM VAN [[id number]] Allergies As of Date: 08/31/2021 (No Known [...] Encounter Status:Closed by ARNOLD GENAO on 09/02/21 [facility] OPERATIVE NOon 07-17-2021 OPERATIVE NO HNO ID: [id number] Author: Arnold Genao MD Service: Colorectal Author Type: Physician Type: Operative Report Filed: 08/01/2021 1:12 PM Note Text: [facility] - Operative Report RJ COLBERT : 2000 AGE: 21. SEX: M PATIENT TYPE: A [facility] LOCATION: [facility] ATTENDING PHYSICIAN: Arnold Genao M.D. CSN NUMBER: [id number] DATE OF SURGERY/PROCEDURE: 07/12/2021 INCISION/PROCEDURE START TIME: 10:55 AM INCISION CLOSE/PROCEDURE END TIME: 10:58 AM PREOPERATIVE DIAGNOSIS: Rectal bleeding. POSTOPERATIVE DIAGNOSIS: Rectal bleeding. SURGEON: Arnold Genao M.D. [employer]: None. SURGERY/PROCEDURE: Rubber-band ligation hemorrhoidectomy. ANESTHESIA: General [...] room in good condition. Arnold Genao M.D. BC:[id number] /[id number] [facility] 07-13-2021 CNPN Telephone ([facility]) RJ COLBERT ([id number]) 2000 [place]* Date Time Provider Department 07/13/21 ARNOLD GENAO [facility] During your visit today, we recorded the following information about you: Essie Pickard Pss 07/13/2021 3:27 PM Signed Patient's caregiver called with post operative hemorrhoidectomy questions and concerns of bands falling off return call to [phone] Sara Rose [facility] 07/16/2021 12:22 PM Signed Kasia, caregiver called. Patient banding undone. Called last Friday, waiting to talk to nurse about care. [phone] Nona Banks RN 07/16/2021 4:56 PM Signed [...] by NONA BANKS on 07/16/21 Normal [facility] ANES POSTPROC EVALon 021 ANES POSTPROC EVAL HNO ID: [id number] Author: Jared Arriaga MD Service: Anesthesiology Author Type: Anesthesiologist Type: Anesthesia Postprocedure Evaluation Filed: 07/12/2021 12:05 PM Note Text: POST ANESTHESIA EVALUATION NOTE : 2000 Procedure Summary Date: 07/12/21 Room / Location: [address] / [facility] Anesthesia Start: 1044 Anesthesia Stop: [...] July 12, 2021 TIME: 12:05 PM CSN: [id number] [facility] ANES PRE-OPon 07-12-2021 ANES PRE-OP HNO ID: [id number] Author: Jared Arriaga MD Service: Anesthesiology Author [...] (97.9 ?F) 07/12/21 0856 SpO2 100 % 07/12/2156 Facility-Administered Medications as of 07/12/2021 Medication Dose [...] July 12, 2021 TIME: 9:18 AM CSN: [id number] [facility] HISTORY PHYSICALon HISTORY PHYSICAL HNO ID: [id number] Author: Arnold Genao MD Service: Colorectal Author [...] DATE: July 12, 2021 TIME: 10:39 AM [facility] HISTORY PHYSICALon HISTORY PHYSICAL HNO ID: [id number] Author: Zahira Ivy PA-C Service: ? Author Type: Physician Patent Chemist Type: HANDP Filed: 07/10/2021 2:28 PM Note [...] PAT today with a caregiver from his long term. States he is having around 5 bowel [...] fevers. Neuro: No history of TIA's, stroke, BROKE WORKER tumor, impaired sensorium, hemiplegia, paraplegia or quadraplegia. No neurological symptoms or problems. + MR / DD Respiratory: No history of current cough or dyspnea, or pneumonia in the past 6 weeks. No history of respiratory/pulmonary symptoms or problems. Cardiovascular: No history of HTN requiring medication, no history of angina, CHF, MT, cardiac surgery or stents. Denies rest pain, gangrene or revascularization/amput ation for PVD. No history of cardiovascular symptoms [...] found for: (more content not included)... 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 Call to discuss [phone] Sara Rose [facility] 07/06/2021 11:12 AM Signed Kasia nurse aware of 07/12 procedure date. Would like the nurse to call to advise any prep instructions other than fasting after midnight. Call Nurse Kasia mgr [phone] Cristal Nava APRN.[facility] 07/06/2021 12:27 PM Signed Call returned. Reviewed NPO after midnight and scheduled PACCs appointment. Allergies As of Date: 07/05/2021 (No Known Allergies) Date Reviewed: 06/29/2021 Reviewed by: Arnold Genao MD - Fully Assessed Reason for Visit: procedure info [Other] Cmt: discuss plan Primary Visit Diagnosis:Hemorrhoids, internal, with bleeding [K64.8] Order(s):VIRTUAL CONSULT TO PACC [[id number]] Order #: [id number]: 1 FUTURE Prescriptions as of 07/06/2021 - [...] Encounter Status:Closed by CRISTAL NAVA on 07/06/21 [facility] CNOVon 06-29-2021 CNOV Office Visit ([facility] ) RJ COLBERT ([id number]) 2000 M Date Time Provider Department [facility] 12[facility] we [...] clinic today with a caregiver from his long term. They relate that he is having around [...] (222 lb 4.8 oz) BMI 31.90 kg/m? Presidential Support Specialist present: Yes Rj Colbert is a 21 year old male presents with complaint of rectal bleeding with prolapsing Grade 3 internal hemorrhoids on exam. Our plan is to perform an EUA and rubber band ligation of internal hemorrhoids at the [facility]. Medical Decision Making: Arnold Genao MD Colorectal Surgery Referring Provider: ELHAM VAN [[id number]] Allergies As of Date: 06/29/2021 (No Known [...] Encounter Status:Closed by ARNOLD GENAO on 06/29/21 [facility] 05-22-2021 CNPN Telephone ([facility]) RJ COLBERT ([id number]) 2000 M Date Time Provider Department 05/22/21 ARNOLD GENAO [facility] During your visit today, we recorded the following information about you: Tamiko Sweeney 05/22/2021 3:28 PM Signed Ph. [phone] Alivia, who works for [employer], was transferred to Dr. Van's [...] follow up with him? Thank you Nona Banks, RN 05/23/2021 2:21 PM Signed Will assist in scheduling pt for follow up. 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 CODING DATE: FINAL [facility] STATUS: Home (Routine DC) PAYOR: Medicaid EAPG [...] PROC EAPG STAT DESCRIPTION DOCTOR NAME DATE 24686 0149 Colonoscopy, flexible; Colin Shirley MD 04/17/2018 with biopsy, single or multiple 74 Discontinued [facility] Procedure After Administration of Anesthe 75417 Anesthesia for lower Colin Shirley MD 04/17/2018 intestinal endoscopic procedures, endoscope introduced distal to duodenum; not otherwise specified NOTE: The code number assigned matches the documented diagnosis and / or procedure in the patient's chart. However, the narrative phrase printed from the coding software may appear abbreviated, or result in slightly different terminology. Coded By: Sary Little Date Saved: 05/01/2018 08:02 am Normal [facility] Coding Summary. CODING DATE: FINAL [facility] STATUS: Home (Routine DC) PAYOR: Medicaid EA [...] PROC EAPG STAT DESCRIPTION DOCTOR NAME DATE 99782 0149 Colonoscopy, flexible; Colin Shirley MD 04/17/2018 with biopsy, single or multiple 74 Discontinued [facility] Procedure After Administration of Anesthe 36322 Anesthesia for Colin Peñaloza MD 04/17/2018 intestinal endoscopic procedures, endoscope introduced distal to duodenum; not otherwise specified NOTE: The code number assigned matches the documented diagnosis and / or procedure in the patient's chart. However, the narrative phrase printed from the coding software may appear abbreviated, or result in slightly different terminology. Coded By: Sary Little Date Saved: 04/23/2018 11:46 am Normal [facility] Progress Note-Physicianon Progress Note-Physician Patient: RJ COLBERT Age: 17 years Sex: Male : 2000 Associated Diagnoses: None Author: Quincy Ojeda Jr, DO Preoperative Information Anesthesia results Review of Systems Cardiovascular: Negative. Respiratory: Negative. Health Status Allergies: Allergic Reactions (Selected)No Known Medication Allergies Current medications: (Selected) Documented MedicationsDocumentedCo lace: 100 mg, Oral, Daily, Refills(s) 0, Constipationbenztropine : 2 mg, Oral, BID, Refills(s) 0, Spasmclonazepam: [...] Cardiovascular: Regular rhythm. Neurologic: Alert, Oriented. Plan [place] [employer]hesiologists (ASA) physical status classification: Class II. Anesthetic Preoperative Plan Anesthesia: General. . Anesthetic plan, risks, benefits, and alternatives discussed with the patient and/or family. Communication: face to face with (patient 5 minutes, Patient educated on smoking cesstation). Normal [facility] Comment on above: Result Comment: Elec tronically Signed By: Quincy Ojeda Jr, DO\.br\Date and Time Signed: 04/28/18 08:15 EDT Main OR Intraoperative Recor don 04-20-2018 Main OR Intraoperative Record IntraOp Document Type FT Summary Primary Physician: Colin Shirley MD Finalized Date/Time: 04/20/18 09:38:35 Pt. Name: RJ COLBERT./Sex: 2000 Male Med Rec #: [id number] Physician: Colin Shirley MD Financial #: [id number] Pt. Type: O Room/Bed: / Admit/Disch: 04/17/18 [...] Case Attendee Casper GAUTAM, Colin Rene RN, Tori Felix CST Role Performed Surgeon - Primary Senior Accountant - Primary Scrub - Primary Time In [...] Scrub - Other Scrub - Other Anesthesiologist Patent Chemist Time In 04/17/18 13:14:00 04/17/18 13:14:00 04/17/18 13:14:00 Time Out 04/17/18 13:32:00 04/17/18 13:32:00 04/17/18 13:32:00 Procedure COLONOSCOPY(.) COLONOSCOPY(.) COLONOSCOPY(.) Comments ORIENTING help in room Dr. Pineda supervising Last Modified By: Anju TREVINO, Ashlee Rene RN, Ashlee Rene RN, Ashlee [...] Time Out Casper GAUTAM, Colin, Given Participants Anju TREVINO, Festus Rosado Carly C, Oliver ZARATE, Tori [facility] Magi [...] and tissue Entry 1 Skin Integrity Intact, [place], Warm, and Skin Abnormality No Dry Outcomes [...] RN Patient Status Stable Skin. Condition Intact, [place], Warm, and Dry Airway Maintenance Oxygen in Use? No Airway Device N/A Outcomes Met? Yes Last Modified By: Ashlee Rene RN 04/17/18 07:23:58 Post-Care Text: The patient is free from signs and symptoms of injury related to transfer/transport General Comments: REPORT GIVEN TO HEAD WOOD GRINDER/ AW ct technologist Administration FT Pre-Care Text: Verifies allergies, administers prescribed medications and solutions, administers prescribed antibiotic therapy and immunizing agents as ordered, evaluates response to medications Administers prescribed medications and solutions Entry 1 Expiration Date Yes Outcomes Met? Yes Verified Last Modified By: Ashlee Rene RN 04/17/18 07:24:05 Post-Care Text: The patient received appropriate medication(s) safely administered during the perioperative period For [facility] please see scanned medication reconcilliation form for [...] 13:32 Addie Oreilly CST 04/20/18 09:38 Normal [facility] History and Physicalon 04-17 History and Physical Date: 03/10/2018 2:15 PMPatient Name: Rj Lepe #: [id number]: MaleDOB (age): 2000 (17)Provider: Annie Benton Complaint: Change in Bowel habits Blood in StoolHistory of Present Illness:17 years old -[place]renadian male with multiple psychiatric problems, lives in a long term, referred to me to be evaluatedfor rectal [...] History No Knowledge Of Family HistoryReview of Systems:Allergic/Immuno logic: Denies strong allergic reactions or urticaria, HIV exposure, Immune Deficiency, persistentinfections.Ca rdiovascular: Denies chest pain, dyspnea with exercise, irregular [...] of vision, photophobia, blurred vision, pain, wearing glasses/contacts.Gastro intestinal: Complains of black stools, bloating, blood in stools, change in bowel habits,constipation, diarrhea, rectal bleeding, rectal urgency, stool incontinence, stomachPrinted on 04/10/2018 Rj Colbert, 05905, 2000 Page 1 of 4Printed on 04/10/2018 Rj Colbert, [id number], 1998cramps, straining. Denies abdominal pain, abdominal swelling, gas, heartburn, jaundice,nausea, vomiting.Genitourinary: Denies dark urine, decrease in urine flow, dysuria, frequent urinary infections, frequenturination, hematuria, impotence, nocturia, urethral discharge or incontinence, sexual difficulty,sexual transmitted diseases, kidney disease, kidney stones, pain with urination.Hematologic/L ymphatic: Denies bleeding gums or palpable lymph nodes, easy bruising, prolonged bleeding, swollenglands.Integumen tary: Denies allergies, dryness, hives, itching, jaundice, lesions, rashes.Musculoskeletal: Denies arthritis, back pain, gout, joint deformity, joint pain, muscle weakness, stiffness, jointswelling, muscle pain.Neurological: Denies dizziness, fainting, frequent headaches, migraine, numbness or tingling, seizures,tremors, vertigo, memory disturbance.Psychiatric : Denies anxiety, depression, difficulty sleeping, hallucinations, nervousness, panic attacks,paranoia, abnormal stress, inability to concentrate, suicidal ideation.Respiratory: Denies asthma, cough, dyspnea, excessive sputum, hemoptisis, shortness of breath withexercise, wheezing, coughing up blood.Vital Signs:BP(mmHg)Pulse(ppm )Rhythm Weight (lbs/oz) Resp/min Bgxn504/68 82 Regular 191 / 12 98.3 (F)Physical Exam:Constitutional:Huan earance: well developed, well nourished, normal habitus, no deformities, in no acute distress..Skin:Inspecti on: no rashes, ulcers, icterus or other lesions; no clubbing or telangiectasias..Palpat ion: no induration or subcutaneos nodules..Eyes:Conjuncti vae/lids: normal conjunctivae and lids..Pupils/irises: symmetrical, normoreactive to light, normal accommodation and size..ENMT:Hearing: within normal limits.Lips/teeth/gums: normal oral mucosa,lips and gums; good dentition.Neck:Neck: normal motion, central trachea.Respiratory:Per cussion: thorax normoresonant.Auscultat ion: normal breath sounds; no rubs, wheezes, rale or ronchi.Cardiovascular:A uscultation: normal rhythm, S1 and S2; no rubs, murmurs or gallop.Peripheral: no edema, varicocities or cyanosis..Gastrointesti nal/Abdomen:Abdomen: normal consistency and bowel sounds; no tenderness or masses..Liver/Spleen: normal size and consistency, not palpable.Hernias: no hernias appreciated.Rectal: deferred.Musculoskeleta l:Gait/station: normal gait and station.Digits/nails: no clubbing, cyanosis, petechiae or other inflammatory conditions.Psychiatric: Judgment/insight: within normal limits.Orientation: oriented to time, space and person.Memory: within normal limits for recent and remote events.Mood and affect: no evidence of depression, anxiety or agitation.Impressions: Rectal hemorrhageConstipationP brian: Colonoscopy will be performed at [facility] .Printed on 04/10/2018 Rj Colbert, 72988, 2000 Page 2 of 4Printed on 04/10/2018 Rj Colbert, 89359, 2000Risk & Medical Necessity: Diagnosis and management options are Extensive. The amount of data reviewedand/or ordered is Moderate. The level of risk is Moderate.Colin Shirley MD Rj Colbert, 74848, 2000 Page 3 of 4Printed on 04/10/2018 Rj Colbert, 97019, 2000Printed on 04/10/2018 Rj Colbert, 98927, 2000 Page 4 of 4Printed on 04/10/2018 Rj Colbert, 98034, 2000no change [facility] Comment on above: Result Comment: Elec tronically Signed By: Colin Shirley MD\.br\Date and Time Signed: 04/17/18 13:15 EDT Inpatient Patient Summaryon 04-17-2018 Inpatient [facility] Dis[facility] InstructionsPERSON INFORMATION Name: RJ COLBERT PHYSICIANS Admitting Physician: [facility] Physician: Colin Shirley MD PCP: Murphy WEISS MD Diagnosis: Rectal prolapse Comment: PATIENT EDUCATION INFORMATIONInstructions :Medication Leaflets:Follow up:With: Address: When: [facility], [address] [place], [place] [id number] Business (1) Within 1 to 2 weeks MEDICATION LISTComment: [facility] Main OR PACU I Recordon 03-28 Main OR PACU I Record PACU Phase I Document Type FT Summary Primary Physician: Colin Shirley MD Finalized Date/Time: 04/17/18 14:14:33 Pt. Name: RJ COLBERT /Sex: 2000 Male Med Rec #: [id number] Physician: Colin Shirley MD Financial #: [id number] Pt. Type: O Room/Bed: / Admit/Disch: 04/17/18 [...] Signed By: Essie Guzman RN 04/17/18 14:14 [facility] Main OR Preoperative Recordo n 04-17-2018 Main OR Preoperative Record Holding Area Document Type FT Summary Primary Physician: Colin Shirley MD Finalized Date/Time: 04/17/18 09:56:12 Pt. Name: RJ COLBERT /Sex: 2000 Male Med Rec #: [id number] Physician: Colin Shirley MD Financial #: [id number] Pt. Type: O Room/Bed: / Admit/Disch: 04/17/18 [...] Signed By: Viki James RN 04/17/18 09:56 [facility] Patient Education - Texton 0 04-17-2018 Patient Education - Text [facility] Coding Summary.on 04-02-2018 Coding Summary. CODING DATE: 018 FINAL [facility] STATUS: Home (Routine DC) PAYOR: Medicaid EAPG [...] PROC EAPG STAT DESCRIPTION DOCTOR NAME DATE 132 Sigmoidoscopy, flexible; Colin Shirley MD 03/30/2018 with biopsy, single or multiple 74 Discontinued [facility] Procedure After Administration of Anesthe 01763 Anesthesia for lower Colin Shirley MD 03/30/2018 intestinal endoscopic procedures, endoscope introduced distal to duodenum; not otherwise specified NOTE: The code number assigned matches the documented diagnosis and / or procedure in the patient's chart. However, the narrative phrase printed from the coding software may appear abbreviated, or result in slightly different terminology. Coded By: Sary Little Date Saved: 04/02/2018 04:16 pm Normal [facility] Progress Note-Physicianon Progress Note-Physician Patient: RJ COLBERT Age: 17 years Sex: Male : 2000 Associated Diagnoses: None Author: Quincy Ojeda Jr, DO Preoperative Information Anesthesia results Review of Systems Cardiovascular: Negative. Respiratory: Negative. Health Status Allergies: Allergic Reactions (Selected)No Known Medication Allergies Current medications: (Selected) Inpatient MedicationsOrderedSodiu m Chloride 0.9% IV Madonna 1000 mL 1,000 mL: 1,000 mL, IV, 20 mL/hr, Routine, Start date 03/30/18 9:43:00 EDT, 50 hour(s), Total volume (mL): 1,000Documented MedicationsDocumentedCo lace: 100 mg, Oral, Daily, Refills(s) 0, Constipationbenztropine : 2 mg, Oral, BID, Refills(s) 0, Spasmclonazepam: [...] Cardiovascular: Regular rhythm. Neurologic: Alert, Oriented. Plan [place] [employer]esthesiologists (ASA) physical status classification: Class II. Anesthetic Preoperative Plan Anesthesia: General. . Anesthetic plan, risks, benefits, and alternatives discussed with the patient and/or family. Communication: face to face with (patient 5 minutes, Patient educated on smoking cesstation). [facility] Comment on above: Result Comment: Elec tronically Signed By: Rusty Fagan DO, Quincy Gregory\.karen\Date and Time Signed: 04/01/18 07:53 EDT History and Physicalon 03-30 History and Physical Date: 03/10/2018 2:15 PMPatient Name: Rj ColbertAccount #: [id number]: MaleDOB (age): 2000 (17)Provider: Annie Benton Complaint: Change in Bowel habits Blood in StoolHistory of Present Illness:17 years old -[place] male with multiple psychiatric problems, lives in a long term, referred to me to be evaluatedfor rectal [...] History No Knowledge Of Family HistoryReview of Systems:Allergic/Immuno logic: Denies strong allergic reactions or urticaria, HIV exposure, Immune Deficiency, persistentinfections.Ca rdiovascular: Denies chest pain, dyspnea with exercise, irregular [...] of vision, photophobia, blurred vision, pain, wearing glasses/contacts.Gastro intestinal: Complains of black stools, bloating, blood in stools, change in bowel habits,constipation, diarrhea, rectal bleeding, rectal urgency, stool incontinence, stomachPrinted on 03/26/2018 Rj Colbert, 17075, 2000 Page 1 of 4Printed on 03/26/2018 Rj Colbert, 33375, 1998cramps, straining. Denies abdominal pain, abdominal swelling, gas, heartburn, jaundice,nausea, vomiting.Genitourinary: Denies dark urine, decrease in urine flow, dysuria, frequent urinary infections, frequenturination, hematuria, impotence, nocturia, urethral discharge or incontinence, sexual difficulty,sexual transmitted diseases, kidney disease, kidney stones, pain with urination.Hematologic/L ymphatic: Denies bleeding gums or palpable lymph nodes, easy bruising, prolonged bleeding, swollenglands.Integumen tary: Denies allergies, dryness, hives, itching, jaundice, lesions, rashes.Musculoskeletal: Denies arthritis, back pain, gout, joint deformity, joint pain, muscle weakness, stiffness, jointswelling, muscle pain.Neurological: Denies dizziness, fainting, frequent headaches, migraine, numbness or tingling, seizures,tremors, vertigo, memory disturbance.Psychiatric : Denies anxiety, depression, difficulty sleeping, hallucinations, nervousness, panic attacks,paranoia, abnormal stress, inability to concentrate, suicidal ideation.Respiratory: Denies asthma, cough, dyspnea, excessive sputum, hemoptisis, shortness of breath withexercise, wheezing, coughing up blood.Vital Signs:BP(mmHg)Pulse(ppm )Rhythm Weight (lbs/oz) Resp/min Mcrm272/68 82 Regular 191 / 12 98.3 (F)Physical Exam:Constitutional:Huan earance: well developed, well nourished, normal habitus, no deformities, in no acute distress..Skin:Inspecti on: no rashes, ulcers, icterus or other lesions; no clubbing or telangiectasias..Palpat ion: no induration or subcutaneos nodules..Eyes:Conjuncti vae/lids: normal conjunctivae and lids..Pupils/irises: symmetrical, normoreactive to light, normal accommodation and size..ENMT:Hearing: within normal limits.Lips/teeth/gums: normal oral mucosa,lips and gums; good dentition.Neck:Neck: normal motion, central trachea.Respiratory:Per cussion: thorax normoresonant.Auscultat ion: normal breath sounds; no rubs, wheezes, rale or ronchi.Cardiovascular:A uscultation: normal rhythm, S1 and S2; no rubs, murmurs or gallop.Peripheral: no edema, varicocities or cyanosis..Gastrointesti nal/Abdomen:Abdomen: normal consistency and bowel sounds; no tenderness or masses..Liver/Spleen: normal size and consistency, not palpable.Hernias: no hernias appreciated.Rectal: deferred.Musculoskeleta l:Gait/station: normal gait and station.Digits/nails: no clubbing, cyanosis, petechiae or other inflammatory conditions.Psychiatric: Judgment/insight: within normal limits.Orientation: oriented to time, space and person.Memory: within normal limits for recent and remote events.Mood and affect: no evidence of depression, anxiety or agitation.Impressions: Rectal hemorrhageConstipationP brian: Colonoscopy will be performed at [facility] .Printed on 03/26/2018 Cooper Coto, 2000 Page 2 of 4Printed on 03/26/2018 Brittaney Coto03, 2000Risk & Medical Necessity: Diagnosis and management options are Extensive. The amount of data reviewedand/or ordered is Moderate. The level of risk is Moderate.Colin Shirley MD Rj Colbert, 45628, 2000 Page 3 of 4Printed on 03/26/2018 Rj Colbert, 46899, 2000Printed on 03/26/2018 Rj Colbert, 64926, 2000 Page 4 of 4Printed on 03/26/2018 Rj Colbert, 39865, 2000No change Normal [facility] Comment on above: Result Comment: Elec tronically Signed By: Colin Shirley MD\.br\Date and Time Signed: 03/30/18 10:52 EDT Inpatient Patient Summaryon 03-30-2018 Inpatient [facility] Dis[facility] InstructionsPERSON INFORMATION Name: RJ COLBERT PHYSICIANS Admitting Physician: Ronnell Shirley MDttending Physician: Colin Shirley MD PCP: Murphy WEISS MD Diagnosis: Internal hemorrhoids Comment: PATIENT EDUCATION INFORMATIONInstructions :Medication Leaflets:Follow up:With: Address: When: [facility], [address] [place] [address] Business (1) Within 1 to 2 weeks MEDICATION LISTComment: Normal [facility] Main OR Intraoperative Recor don 03-30-2018 Main OR Intraoperative Record IntraOp Document Type FT Summary Primary Physician: Colin Shirley MD Finalized Date/Time: 03/30/18 11:37:17 Pt. Name: RJ COLBERT /Sex: 2000 Male Med Rec #: [id number] Physician: Colin Shirley MD Financial #: [id number] Pt. Type: O Room/Bed: / Admit/Disch: 03/30/18 [...] Tori Capellan CST Role Performed Anesthesiologist of Senior Accountant - Primary Scrub - Primary Record Time In 03/30/18 10:56:00 03/30/18 10:56:00 03/30/18 10:56:00 Time Out 03/30/18 11:13:00 03/30/18 11:13:00 03/30/18 11:13:00 Procedure COLONOSCOPY(.) COLONOSCOPY(.) COLONOSCOPY(.) Comments Last Modified By: Paul RN, Francy Miller RN, Francy Miller RN, Francy Gregory 03/30/18 11:14:48 03/30/18 11:14:48 03/30/18 11:14:48 Entry 4 Entry 5 Case Attendee SalColin miller MD [place] [employer] Administrator, Magi Briggs Role Performed Surgeon - Primary [...] Participants Francy Miller RN, Colin Shirley MD [place] [employer], Magi Briggs, Oliver ZARATE, Tori Time Out Complete 03/30/18 10:57:00 Outcomes [...] and tissue Entry 1 Skin Integrity Intact, [place], Warm, and Skin Abnormality No Dry Outcomes [...] RN Patient Status Stable Skin. Condition Intact, [place], Warm, and Dry Airway Maintenance Oxygen in Use? No Airway Device N/A Outcomes Met? Yes Last Modified By: Francy Miller RN 03/30/18 07:37:17 Post-Care Text: The patient is free from signs and symptoms of injury related to transfer/transport General Comments: Report given to PACU,RN./RICHARD,ct technologist Administration FT Pre-Care Text: Verifies allergies, administers prescribed medications and solutions, administers prescribed antibiotic therapy and immunizing agents as ordered, evaluates response to medications Administers prescribed medications and solutions Entry 1 Expiration Date Yes Outcomes Met? Yes Verified Last Modified By: Francy Miller RN 03/30/18 07:37:26 Post-Care Text: The patient received appropriate medication(s) safely administered during the perioperative period For [facility] please see scanned medication reconcilliation form [...] 11:14 Addie Oreilly CST 03/30/18 11:37 Normal [facility] Main OR PACU I Recordon Main OR PACU I Record PACU Phase I Document Type FT Summary Primary Physician: Colin Shirley MD Finalized Date/Time: 03/30/18 11:29:28 Pt. Name: RJ COLBERT /Sex: 2000 Male Med Rec #: [id number] Physician: Colin Shirley MD Financial #: [id number] Pt. Type: O Room/Bed: / Admit/Disch: 03/30/18 [...] By: Essie Guzman RN 03/30/18 11:29 Normal [facility] Main OR Preoperative Recordo n 03-30-2018 Main OR Preoperative Record Holding Area Document Type FT Summary Primary Physician: Colin Shirley MD Finalized Date/Time: 03/30/18 10:16:59 Pt. Name: RJ COLBERT /Sex: 2000 Male Med Rec #: [id number] Physician: Colin Shirley MD Financial #: [id number] Pt. Type: O Room/Bed: / Admit/Disch: 03/30/18 [...] No Patient states Yes Comment - Adult [facility]- care provider postop adult Supervision supervision available Case Cancelled in No Holding Area see comments below for reason Last Modified By: Kathleen Gómez RN 03/30/18 09:54:58 General Comments: Pt completed prep at 0540 and remained NPO/KS,RN Finalized By: Kathleen Gómez RN Document Signatures Signed By: Kathleen Gómez RN 03/30/18 10:16 [facility] Patient Education - Texton 0 03-30-2018 Patient Education - Text [facility] Progress Note-Physicianon Progress Note-Physician Patient: RJ COLBERT [...] 30 10:05)SpO2 99 (MAR 30:30) 97 (MAR 30:25) 100 (MAR 30:00) Documented vital signs General: Alert and oriented, No acute distress. Respiratory: Lungs are clear to auscultation. Cardiovascular: Normal rate, Regular rhythm. Neurologic: Normal sensory. Review / Management Condition: Stable. Assessment Anesthetic outcome No anesthetic complications noted. Adequate pain relief. TOLERATING PO INTAKE. voiding w/o diff.. No Complaint of nausea and vomiting. Plan Transfer/ Discharge: Condition stable. Normal [facility] Comment on above: Result Comment: Elec tronically Signed By: Rusty Fagan DO, Quincy Gregory\.br\Date and Time Signed: 03/30/18 11:55 EDT Vital Signs Date Time Vital Sign Value Performing Clinician Michaeli moon 01-26-2024 14: Body height 177.8 cm Reynold Kuo MD Work Phone: [facility] 01-26-2024 14:040 Body mass index (BMI) [Ratio] 25.75 kg/m2 Reynold Kuo MD [facility] 01-26-2024 14: Body weight 81.4 kg Reynold Kuo MD Work Phone: [facility] 03-28-2022 11:110400 Body height 180.3 cm Arnold Genao MD Work Phone: [facility] 03-28-2022 11:11-0400 Body weight 90.27 kg Arnold Genao MD Work Phone: [facility] 03-28-2022 11:110400 Diastolic blood pressure 65 mm[Hg] Arnold Genao MD Work Phone: [facility] 03-28-2022 11:110400 Heart rate 80 /min Arnold Genao MD Work Phone: [facility] 03-28-2022 11:11-0400 SaO2% (BldA) [Mass fraction] 100 % Arnold Genao MD Work Phone: [facility] 03-28-2022 11:110400 Systolic blood pressure 108 mm[Hg] Arnold Genao MD Work Phone: [facility] Encounters Encounter Date Encounter Type Care Provider Facility Start: 09-09-2024 ambulatory Jean Carlos Boudreaux acility:[facility] Start: 08-18-2024 End: 08-19-2024 Clinisync Result Encounter Generic External Data Provider [facility] External Department Unsolicited Start: 08-18-2024 End: 08-19-2024 Clinisync Result Encounter Generic External Data Provider [facility] External Department Unsolicited Start: 07-14-2024 End: 07-14-2024 ambulatory BENSON WEISS Not Available Start: 01-26-2024 End: 01-26-2024 ambulatory REYNOLD KUO [facility] Start: 01-26-2024 End: 01-26-2024 Postop follow up visit related to original px Reynold Kuo MD Work Phone: [facility] Comment on above: Rectal prolapse (Charlee hortensia Dx) Start: 01-10-2024 End: 01-10-2024 Evaluation and management of inpatient [facility] Start: 01-09-2024 End: 01-10-2024 [facility] Start: 01-08-2024 End: 01-08-2024 Emergency department patient visit BENSON ISELA [facility] Start: 01-07-2024 End: 01-07-2024 ambulatory BENSON WEISS [...] y Dx) Start: 04-17-2018 End: 04-18-2018 Ambulatory [facility] Start: 03-30-2018 End: 03-31-2018 Ambulatory [facility] Facility:[facility] Procedures Date Procedure Procedure Detail Performing Clinician Start: 08-18-2024 ALL CBC WITH AUTO DIFF Generic External Data Provider Plan of Treatment Date Care Activity Detail Author Start: 08-05-2029 DTaP,Tdap and Td Vaccines (8 - Td or Tdap) DTaP,Tdap and Td Vaccines (8 - Td or Tdap) [facility] Start: 01-25-2025 Adult BMI Screening Adult BMI Screening [facility] Start: 01-25-2025 Tobacco Screening Tobacco Screening [facility] Start: 01-12-2025 End: 01-12-2025 Patient encounter procedure 01/12/2025 9:30 AM EDT Office Visit [facility] [address] [place] [address] Benson Weiss MD [address] [place] [address] [facility] Start: 06-27-2024 Influenza vaccination [facility] Start: 06-27-2023 COVID-19 Vaccine ( season) COVID-19 Vaccine () [facility] Start: 2017 Urine microalbumin profile DTAP,TDAP,TD (1 - Tdap) [facility] Start: 2016 Adult BMI Follow Up Plan Adult BMI Follow Up Plan [facility] Start: 2016 HEPATITIS C SCREENING HEPATITIS C SCREENING [facility] Start: 2016 HIV SCREENING HIV SCREENING [facility] Start: 2012 PEDS TO ADULT TRANSITION ANNUAL ASSESSMENT PEDS TO ADULT TRANSITION ANNUAL ASSESSMENT [facility] Start: 2010 Adult depression screening assessment DEPRESSION SCREENING [facility] Start: 2010 PEDS TO ADULT TRANSITION INITIAL DISCUSSION PEDS TO ADULT TRANSITION INITIAL DISCUSSION [facility] Start: 2009 HPV VACCINE (1 - Male 2-dose series) HPV VACCINE (1 - Male 2-dose series) [facility] Start: 2008 MENINGOCOCCAL B: Consider based on risk (1 of 2 - Risk Bexsero 2-dose series) MENINGOCOCCAL B: Consider based on risk (1 of 2 - Risk Bexsero 2-dose series) [facility] Start: 1998 Medicare Annual Wellness (AWV) Medicare Annual Wellness (AWV) [facility] Immunizations Immunization Date Immunization Notes Care Provider Fa cility 12-08-2020 COVID-19, mRNA, LNP- S, PF, 30mcg/0.3mL Dose Reynold Kuo MD Work Phone: [facility] 11-17-2020 COVID-19, mRNA, LNP- S, PF, 30mcg/0.3mL Dose Reynold Kuo MD Work Phone: [facility] 08-31-2020 influenza, injectabl e, quadrivalent, preservative free Reynold Kuo MD Work Phone: [facility] 08-31-2020 influenza virus vacc ine, unspecified formulation Reynold Kuo MD Work Phone: [facility] 08-18-2019 influenza, injectabl e, quadrivalent, preservative free Reynold Kuo MD Work Phone: [facility] 08-05-2019 tetanus toxoid, redu diamond diphtheria toxoid, and acellular pertussis vaccine, adsorbed Reynold Kuo MD Work Phone: [facility] 12-02-2017 tetanus toxoid, redu diamond diphtheria toxoid, and acellular pertussis vaccine, adsorbed Reynold Kuo MD Work Phone: [facility] 08-21-2017 influenza, injectabl e, quadrivalent, preservative free Reynold Kuo MD Work Phone: [facility] 08-28-2016 influenza, injectable,quadrivalent, preservative free, pediatric Reynold Kuo MD Work Phone: [facility] 08-28-2016 meningococcal polysaccharide (groups A, C, Y and W-135) diphtheria toxoid conjugate vaccine (MCV4P) Reynold Kuo MD Work Phone: [facility] 08-16-2015 influenza, seasonal, injectable Reynold Kuo MD Work Phone: [facility] 08-07-2011 tetanus toxoid, redu diamond diphtheria toxoid, and acellular pertussis vaccine, adsorbed Reynold Kuo MD Work Phone: [facility] 08-17-2008 hepatitis A vaccine, pediatric/adolescent dosage, 2 dose schedule Reynold Kuo MD Work Phone: [facility] 02-02-2008 hepatitis A vaccine, pediatric/adolescent dosage, 2 dose schedule Reynold Kuo MD Work Phone: [facility] 02-02-2008 varicella virus vaccine Edwin Kuo MD Work Phone: [facility] 01-18-2005 diphtheria, tetanus toxoids and acellular pertussis vaccine Reynold Kuo MD Work Phone: [facility] 07-18-2004 DTaP-hepatitis B and poliovirus vaccine Reynold Kuo MD Work Phone: [facility] 07-17-2004 measles, mumps and rubella virus vaccine Reynold Kuo MD Work Phone: [facility] 02-08-2003 diphtheria, tetanus toxoids and acellular pertussis vaccine, unspecified formulation Reynold Kuo MD Work Phone: [facility] 02-08-2003 haemophilus influenz ae type b vaccine, conjugate unspecified formulation Reynold Kuo MD Work Phone: [facility] 02-08-2003 hepatitis B vaccine, pediatric or pediatric/adolescent dosage Reynold Kuo MD Work Phone: [facility] 02-08-2003 measles, mumps and rubella virus vaccine Reynold Kuo MD Work Phone: [facility] 02-08-2003 poliovirus vaccine, unspecified formulation Reynold Kuo MD Work Phone: [facility] 02-08-2003 varicella virus vaccine Edwin Kuo MD Work Phone: [facility] 1998 diphtheria, tetanus toxoids and acellular pertussis vaccine, unspecified formulation Reynold Kuo MD Work Phone: [facility] 1998 haemophilus influenz ae type b vaccine, conjugate unspecified formulation Reynold Kuo MD Work Phone: [facility] 1998 poliovirus vaccine, unspecified formulation Reynold Kuo MD Work Phone: [facility] 1998 hepatitis B vaccine, pediatric or pediatric/adolescent dosage Reynold Ku[facility] MD [facility] 1998 hepatitis B vaccine, pediatric or pediatric/adolescent dosage Reynold Kuo MD Work Phone: [facility] Payers Date Payer Category Payer Medicaid [id number] 2023 Self-pay 2021 Medicaid MEDICAID [facility] MEDICAID [id number] 2021-Present [phone] [address] [place] [address] Medicaid [id number] 2018 Medicare MEDICARE MEDICAR E A AND B [id number] 2018-Present [phone] [address] [address] [place] [address] Medicare [id number] 2018 Medicare [id number] 2018 [place] EDICAID [id number] 2018-Present [phone] [address] [place] [address] [id number] 1998 Unknown [id number] [id number] 1998 Unknown [id number] 2.16.840.1.487786.3.579.2.593 1998 Unknown [id number] 2.16.840.1.701363.3.579.2.593 1998 Unknown [id number] 2.16.840.1.007514.3.579.2.593 1998 Unknown [id number] 2.16.840.1.514690.3.579.2.593 1998 Unknown [id number] 2.16.840.1.606206.3.579.2.593 1998 Unknown [id number] 2.16.840.1.173000.3.579.2.593 1998 Unknown [id number] 2.16.840.1.943555.3.579.2.593 1998 Unknown [id number] 2.16.840.1.096281.3.579.2.593 1998 Unknown [id number] 2.16.840.1.218597.3.579.2.593 1998 Unknown [id number] 2.16.840.1.834403.3.579.2.593 1998 Unknown [id number] 2.16.840.1.249671.3.579.2.593 1998 Unknown [id number] 2.16.840.1.130786.3.579.2.1286 1998 Unknown [id number] 2.16.840.1.043700.3.579.2.1286 1998 Unknown [id number] 2.16.840.1.869912.3.579.2.1286 1998 Unknown [id number] 2.16.840.1.193848.3.579.2.1286 1998 Unknown [id number] 2.16.840.1.213017.3.579.2.1286 1998 Unknown [id number] 2.16.840.1.735419.3.579.2.1259 1998 Unknown [id number] 2.16.840.1.728607.3.579.2.1259 1959 Medicaid [id number] 1961 Medicare [id number] Social History Date Type Detail Facility Start: 03-01-2015 End: 05-12-2023 Tobacco smoking status NHIS Never smoked tobacco [facility] Start: 03-01-2015 End: 01-26-2024 Tobacco use and exposure Smokeless tobacco non-user [facility] Start: 03-28-2022 Alcohol intake Current non-dr die sinker of alcohol (finding) [facility] Start: 2000 Sex Assigned At Not on file [facility] Start: 03-18-2022 End: 03-28-2022 Exposure to SARS-CoV-2 (event) Not sure [facility] Start: 01-26-2024 Alcohol intake Lifetime non-d juan (finding) [facility] Start: 01-09-2024 End: 07-14-2024 History of Social function [facility] Start: 01-09-2024 End: 07-14-2024 [facility] Utilities [facility] Has the [employer], [employer], [employer], or water [employer] threatened to shut off services in your home in past 12Mo No [facility] How often to you hav e a drink containing alcohol? Never [facility] How many standard drinks containing alcohol do you have on a typical day? Patient does not drink [facility] Start: 07-14-2024 Alcoholic beverage intake Ex-drinker (finding) [facility] Goals Date Patient Goal Desired Activity /State Personal health goal Comment on above: Formatting of this n ote might be different from the original. Evaluation of progress towards goal: Soren Conner, back to long term. Clinical Notes 06-29-2021 to 01-26-2024 Reynold Kuo MD - 01/26/2024 3:15 PM EDTTelephone Encounter - Charley Mcclelland RN - 03/28/2022 4:13 PM EDTTelephone Encounter - Sara BAEZA - 03/28/2022 3:43 PM EDT Note Date & Type Note Facility 01-26-2024 History of Presen t illness Narrative Images from the original note were not included. [facility] Col[facility] [address] [address] Patient: Rj Colbert Date of : 2000 Encounter Date: 01/26/2024 History of Present Illness: The patient is 23 y.o. male and presents for postoperative follow-up s/p repair of rectal prolapse. Patient presented with incarcerated prolapse. He underwent Altemeier procedure. Patient now follows up. Patient is accompanied by offshore wind turbine technician. He is doing well. He denies any [...] Reynold Kuo MD documented in this encounter [facility] 03-28-2022 Miscellaneous Notes Spoke with the pharmacist and she states that she does not provide food items. She will speak with the nurse at the long term. Pharmacy, [facility], [facility], phone , any pharmacist to clarify about carbonate? CALM is long term able to order as food item? Please call to discuss. documented in this encounter [facility] 03-28-2022 Miscellaneous Notes Opened in error documented in this encounter [facility] 03-28-2022 Miscellaneous Notes Addended by: ARNOLD GENAO on: 03/28/2022 03:11 PM Modules accepted: Orders Addended by: CHARLEY MCCLELLAND on: 03/28/2022 02:47 PM Modules accepted: Orders documented in this encounter [facility] 03-28-2022 Note HNO ID: [id number] Author: Arnold Genao MD Service: ? Author Type: Physician Type: Progress Notes Filed: 03/28/2022 11:58 AM Note Text: COLORECTAL SURGERY March 28, 2022 Rj Colbert 21 year old Chief Complaint: hematochezia History of Present Illness: Rj Colbert is a 21 year old male presents to the office for evaluation of hematochezia. Last seen in the office on 11/16/21 with Cristal Nava FOUNDRY EQUIPMENT MECHANIC for follow up visit after he [...] exam Anorectal: External exam reveals: see below Presidential Support Specialist present: yes Assessment Assessment and Plan: Rj Colbert is a 21 year old male with straining and occasional rectal bleeding. Today, we talked about adding a magnesium supplement CALM to his regimen to decrease straining. I am of the opinion that more surgery is not the best option at this time. Arnold Genao MD Colorectal Surgery [facility] 03-28-2022 Nurse Note Calm education given for constipation. What is the reason for your visit today? Established patient presents for hematochezia. Who is your referring physician? Are you having poor oral intake? NO Have you had unintentional weight loss of 15 lbs/7 Kg in the last 3-6 months? NO Bowels: regular Wound: None Temperature: No Drains: No documented in this encounter [facility] 03-28-2022 History of Presen t [...] exam Anorectal: External exam reveals: see below Presidential Support Specialist present: yes Assessment Assessment and Plan: Rj Colbert is a 21 year old male with straining and occasional rectal bleeding. Today, we talked about adding a magnesium supplement CALM to his regimen to decrease straining. I am of the opinion that more surgery is not the best option at this time. Arnold Genao MD Colorectal Surgery documented in this encounter [facility] 11-16-2021 Note HNO ID: [id number] Author: Cristal Nava APRN.[facility] Service: ? Author Type: Nurse Practitioner Type: [...] results with patient and POA. Cristal Nava APRN.CALL OR CONTACT CENTRE OPERATOR Colorectal Surgery [facility] 10-17-2021 Note HNO ID: [id number] Author: Hunter Massey APRN.INVESTIGATION MANAGER Service: Anesthesiology Author Type: Nurse Communications Clerk Type: Anesthesia Procedure Notes Filed: 10/17/2021 8:55 AM Note Text: ANESTHESIOLOGY PROCEDURE NOTE Airway General Information Procedure Start Time/Medication Administration: 10/17/2021 8:49 AM Patient location during procedure: OR Timeout Performed Pre-procedure: timeout performed Consent Obtained: Yes Patient identity confirmed: arm band, care sales team recruiter and patient Staffing Anesthesiologist: Michael Martínez MD INVESTIGATION MANAGER: Hunter Massey APRN.INVESTIGATION MANAGER Performed by: SAMAN Indications and Patient Condition Preoxygenated: yes Patient position: sniffing Manual In-Line Stabilization: No Difficult Mask: No Indications for airway management: anesthesia anesthesia circuit Method: asleep Cricoid Pressure: No Final Airway Details Final airway type: supraglottic airway Number of attempts at approach: 1 Final Supraglottic Airway: i-gel Size 4 Seal Adequate: yes Airway not difficult SIGNATURE: Hunter Massey APRN.INVESTIGATION MANAGER PATIENT NAME: Rj Colbert DATE: October 17, 2021 TIME: 8:54 AM CSN: [id number] [facility] 08-31-2021 Note HNO ID: [id number] Author: Arnold Genao MD Service: ? Author [...] Anorectal: External exam reveals : see below Presidential Support Specialist present: yes Assessment Assessment and Plan: Rj Colbert is a 21 year old male who is doing relatively well after his recent rubber band ligation. He still has some rectal bleeding and it is difficult to assess the exact amount. If the bleeding persists we will consider internal hemorrhoidectomy. Arnold Genao MD Colorectal Surgery [facility] 07-12-2021 Note HNO ID: [id number] Author: Shanthi Chapman APRN.INVESTIGATION MANAGER Service: Anesthesiology Author Type: Nurse Communications Clerk Type: Anesthesia Procedure Notes Filed: 07/12/2021 10:54 AM Note Text: ANESTHESIOLOGY PROCEDURE NOTE Airway General Information Procedure Start Time/Medication Administration: 07/12/2021 10:48 AM Patient location during procedure: OR Patient identity confirmed: arm band, care sales team recruiter and patient Staffing INVESTIGATION MANAGER: Shanthi Chapman APRN.INVESTIGATION MANAGER Performed by: INVESTIGATION MANAGER Indications and Patient Condition Preoxygenated: yes [...] July 12, 2021 TIME: 10:53 AM CSN: [id number] [facility] 06-29-2021 Note HNO ID: [id number] Author: Arnold Genao MD Service: ? 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 They relate that he is having around [...] (222 lb 4.8 oz) BMI 31.90 kg/m? Presidential Support Specialist present: Yes Rj Colbert is a 21 year old male presents with complaint of rectal bleeding with prolapsing Grade 3 internal hemorrhoids on exam. Our plan is to perform an EUA and rubber band ligation of internal hemorrhoids at the [facility]. Medical Decision Making: Arnold Genao MD Colorectal Surgery [facility] Evaluation note Diagnosis Hematochezia- Primary Blood in stool [facility] Rectal prolapse- Primary documented in [facility] encounter [facility] System[facility]ructionsNot on filedocumented in this encounter [facility] Summary Purpose Family History No Family History Records FoundNo Family History Records FoundNo Family History Records FoundNo Family History Records FoundNo Family History Records FoundNo Family History Records FoundNo Family History Records FoundNo Family History Records Found Advance Directives No Advanced Directives Records FoundDocuments on File Type Date Recorded 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[employer] Advance Directive(s) 07/09/2021 9:04 AM [...] section and content) DATE CREATED AUTHOR 05/01/2018 [facility] DATE CREATED AUTHOR AUTHOR'S ORGANIZ ATION 10/31/2021 [facility] DATE CREATED AUTHOR AUTHOR'S ORGANIZ ATION 03/29/2022 [facility] DATE CREATED AUTHOR AUTHOR'S ORGANIZ ATION 04/04/2023 [facility] DATE CREATED AUTHOR AUTHOR'S ORGANIZ ATION 01/10/2024 [facility] DATE CREATED AUTHOR AUTHOR'S ORGANIZ ATION 01/27/2024 [facility] DATE CREATED AUTHOR AUTHOR'S ORGANIZ ATION 07/16/2024 [facility] DATE CREATED AUTHOR AUTHOR'S ORGANIZ ATION 09/11/2024 [facility] ys[facility] Source Comments (unrecognize d section and content) In the event this informatio n is protected by the Federal Confidentiality of Alcohol and Drug Abuse Patient Records regulations: The Federal rules restrict any use of the information to criminally investigate or prosecute any alcohol or drug abuse patient.[facility] the event this information is protected by the Federal Confidentiality of Alcohol and Drug Abuse Patient Records regulations: The Federal rules restrict any use of the information to criminally investigate or prosecute any alcohol or drug abuse patient.[facility] the event this information is protected by the Federal Confidentiality of Alcohol and Drug Abuse Patient Records regulations: The Federal rules restrict any use of the information to criminally investigate or prosecute any alcohol or drug abuse patient.[facility] Reason for Visit (unrecogniz ed section and content) Reason Comments Established Patient Follow-Up Rectal Bleeding Reason Comments Opened In Error no documentation-err or Reason Comments Medication Problem magnesium carbonate? vs? CALM Reason Comments Post-op 2 week Care Teams (unrecognized sec tion and content) Slitter Scorer Cut Off Operator Relationship Specialty Start Date End Date Benson Weiss MD [address] [place] [address] PCP - General Family Medicine 01/08/24 Slitter Scorer Cut Off Operator Relationship Specialty Start Date End Date Benson Weiss MD [address] [place] [address] PCP - General Family Medicine 01/07/24 FOR RECORDS PERTAINING TO PATIENTS WHO ARE [...] BE BASED ON THE PRIMARY CLINICAL RECORDS. [facility] provides no warranty or guarantee of the accuracy or completeness of information in this document.
[2024-09-13 09:16] LABS: Basophils Percent Auto 0.8 % (0.2-2.0); Eosinophils Absolute Auto 0.1 10^3/uL (0.0-0.7); Hematocrit 38.6 % (42.0-54.0); Hemoglobin 10.5 g/dL (14.0-18.0); Immature Granulocytes Abs Auto 0.01 10^3/uL (0.00-0.03); Immature Granulocytes Pct Auto 0.2 % (0.0-0.5); Lymphocytes Absolute Auto 1.3 10^3/uL (1.2-3.8); Lymphocytes Percent Auto 25.9 % (20.5-60.0); Mean Corpuscular HGB Conc 27.2 g/dL (29.9-35.2); Mean Corpuscular Hemoglobin 18.1 pg (25.9-34.0); Mean Corpuscular Volume 66.4 fL (80.0-94.0); Monocytes Absolute Auto 0.7 10^3/uL (0.3-0.8); Monocytes Percent Auto 13.7 % (1.7-12.0); Neutrophils Absolute Auto 2.9 10^3/uL (1.4-6.5); Neutrophils Percent Auto 58.4 % (43.0-75.0); Platelet Count 269 10^3/uL (150-450); Red Cell Distribution Width 21.2 % (11.0-15.0); White Blood Count 4.9 10^3/uL (4.0-11.0)
[2024-09-13 12:29] LABS: Red Blood Count 5.81 10^6/uL (4.70-6.10)
== END 2024-09-13 08:20 | disposition home or self-care (01) ==
PROVIDERS: PCP Family Medicine; Visit Provider Registered Nurse Psychiatric/Mental Health
DX: Z79.899 Other long term (current) drug therapy (principal)
CPT/HCPCS: 36415; 85025

== ENCOUNTER 2024-10-14 15:51 | Outpatient (OUT) | payer MEDICARE, MEDICAID, SELFPAY ==
[2024-10-14 16:06] LABS: Hematocrit 40.1 % (42.0-54.0); Hemoglobin 11.1 g/dL (14.0-18.0); Mean Corpuscular HGB Conc 27.7 g/dL (29.9-35.2); Mean Corpuscular Hemoglobin 18.6 pg (25.9-34.0); Mean Corpuscular Volume 67.1 fL (80.0-94.0); Mean Platelet Volume 9.5 fL (9.5-13.5); Platelet Count 269 10^3/uL (150-450); Red Blood Count 5.98 10^6/uL (4.70-6.10); Red Cell Distribution Width 21.2 % (11.0-15.0); White Blood Count 6.3 10^3/uL (4.0-11.0)
--- OUTSIDE RECORDS SUMMARY | 2024-10-14 16:13 | XMS_ITS | CCD ---
Author Organization [facility] Care Team Providers Care Resort Host Name Role Phone Salam, Shaw Unavailable Unavailable Salam, Shaw Unavailable Unavailable Salam, Shaw Unavailable Unavailable NADERER, [phone] UNKNOWN Unavailable Unavailable Salam, Shaw Unavailable Unavailable Salam, Shaw Unavailable Unavailable Salam, Shaw Unavailable Unavailable NADERER, BENSON~[phone] UNKNOWN Unavailable Unavailable Unavailable Primary Care Provider [...] BENSON Gregory Primary Care Unavailable MISC, DR DOCTOR Attending [...] Referring Unavailable ISELA, BENSON Primary Care Unavailable ISELA, BENSON Attending Unavailable ISELA, BENSON Attending Unavailable Benson Weiss MD Primary Care Provider Jean Carlos Hdez Attending Unavailab le Jean Carlos Hdez Admitting Unavailab le NO FAMILY, PHYSICIAN Primary Care Unavailable Allergies Allergy Classification Reported Allergen(s) Allergy Type Date of Onset Reaction(s) Facility (1 source) No Known Medication Allergies; Translations: [No Known Medication Allergies] Propensity to adverse reactions (disorder) [facility] Repository Medications Current Medications Medication Drug Class(es) Dates Sig (Normalized) Sig (Original) acetaminophen 500 mg oral tablet (9 sources) Start: 01-10-2024 End: 01-12-2025 take 2 [...] Take 2 tablets by mo uth every 6 hours. benztropine mesylate 2 mg oral tablet (9 sources) Anticholinergic, Antihistamine take 1 tablet by mouth in the morning benztropine (Cogentin) 2 MG tablet Take 2 mg by mouth in the morning and 2 mg in the evening. Active Comment on above: Take 2 mg by mouth t wice daily. calcium polycarbophil 625 mg oral tablet (9 sources) Start: 09-01-20 24 take 1 tablet by mouth once daily polycarbophil (Fiber-Lax) 625 MG tablet Indications: Chronic constipation Take 1 tablet (625 mg) by mouth Daily 30 tablet 5 09/01/2024 Active Start: 04-07-2024 take 1 tablet by claribel th once daily polycarbophil (Fiber-Lax) 625 MG tablet [...] mouth . clonazePAM 0.5 mg oral tablet (9 sources) Benzodiazepine take 1 tablet by mouth in the morning clonazePAM (KlonoPIN) 0.5 MG tablet Take 0.5 mg by mouth in the morning and 0.5 mg in the evening. Active take 1 tablet by claribel th every twelve hours as needed clonazePAM (KLONOPIN) 1 mg tablet Take 1 mg by mouth twice daily as needed. 0 Active Comment on above: Take 1 mg by mouth t wice daily as needed. docusate sodium 100 mg oral capsule (9 sources) Start: 4 take 1 capsule by mouth in the morning Docusate Sodium (DSS) 100 MG capsule Indications: Chronic constipation Take 1 capsule (100 mg) by mouth in the morning. 60 capsule 5 11/04/2023 Active Comment on above: Take 100 mg by mouth twice daily. FLUoxetine 40 mg oral capsule (9 sources) Serotonin Reuptake Inhibitor take 1 capsule [...] once daily. haloperidol 10 mg oral tablet (9 sources) Typical Antipsychotic take 1 tablet by [...] for pain. loratadine 10 mg oral tablet (9 sources) Start: 12-18-19 24 End: 12-17-19 25 take 1 tablet by mouth in the [...] mouth nightly. 0 Active polyethylene glycol 3350 07082 mg powder for oral solution (4 sources) [...] 1 Packet by claribel th once daily. Problems Active Problems Problem Classification Problem Date Documented Da te Episodic/Chronic Anal and rectal conditions (6 sources) Rectal prolapse; Translations: [Rectal pain] Onset: 01-08-2024 01-26-2024 Episodic Attention-deficit, conduct, and disruptive behavior disorders (5 sources) Oppositional defiant disorder; Translations: [Oppositional defiant disorder] Onset: 01-07-2024 01-07-2024 Chronic Developmental disorders (5 sources) Mild intellectual disability; Translations: [Mild intellectual disabilities] Onset: 01-07-2024 01-07-2024 Chronic Disorders usually diagnosed in infancy, childhood, or adolescence (5 sources) Tic disorder; Translations: [Tic disorder, unspecified] Onset: 01-07-2024 01-07-2024 Chronic Gastrointestinal hemorrhage (1 source) Blood-tinged feces; Translations: [Melena] Episodic Other aftercare (4 sources) Other watermaster (current) drug therapy; Translations: [OTH ENGRAVER PICTURE CURRENT DRUG THERAPY] Onset: 02-19-2023 Episodic Other upper respiratory disease (7 sources) Allergic rhinitis due to pollen; Translations: [Allergic rhinitis due to pollen] Onset: 01-07-2024 01-07-2024 Chronic Schizophrenia and other psychotic disorders (10 sources) Schizophrenia; Translations: [Schizophrenia, unspecified] Onset: 07-10-2021 07-10-2021 Chronic Unclassified (1 source) Bowel Issue Onset: 01-08-2024 Unclassified (1 source) Post-op Onset: 01-26-2024 Unclassified (1 source) Medical Problem Onset: 01-09-2024 Unclassified (1 source) [place] transfer Onset: 01-09-2024 Past or Other Problems Problem Classification Problem Date Documented Da te Episodic/Chronic Hemorrhoids (3 sources) Hemorrhoids; Translations: [Unspecified hemorrhoids] Onset: 10-17-2021 10-17-2021 Episodic Malaise and fatigue (5 sources) Fatigue; Translations: [Other fatigue] Onset: 01-07-2024 01-07-2024 Episodic Other gastrointestinal disorders (7 sources) Chronic constipation; Translations: [Other constipation] Onset: 01-07-2024 01-07-2024 Episodic Other nutritional; endocrine; and metabolic disorders (8 sources) Developmental delay; Translations: [Unspecified lack of expected normal physiological development in childhood] Onset: 07-10-2021 07-10-2021 Episodic Results Test Name Value Interpretation Reference Range Facility ALL CBC WITH AUTO DIFFon BASOPHILS ABSOLUTE AUTO 0 [facility] Basophils/100 WBC (Bld) 0.8 % 0.2 - 2.0 % [facility] Eosinophils/100 WBC (Bld) 1 % 0.9 - 7.0 % [facility] Erythrocyte distribution width (RBC) [Ratio] 21.2 % High 11.0 - 15.0 % [facility] Hematocrit (Bld) [Volume fraction] 38.6 % Low 42.0 - 54.0 % [facility] Hemoglobin (Bld) [Mass/Vol] 10.5 g/dL Low 14.0 - 18.0 g/dL [facility] IMMATURE GRANULOCYTES ABS AUTO 0.01 [facility] Immature granulocytes/100 WBC (Bld) 0.2 % 0.0 - 0.5 % [facility] Interpretation and review of laboratory results Abnormal [facility] LYMPHOCYTES ABSOLUTE AUTO 1.3 [facility] Lymphocytes/100 WBC (Bld) 25.9 % 20.5 - 60.0 % [facility] MCH (RBC) [Entitic mass] 18.1 pg Low 25.9 - 34.0 pg [facility] MCHC (RBC) [Mass/Vol] 27.2 g/dL Low 29.9 - 35.2 g/dL [facility] MCV (RBC) [Entitic vol] 66.4 fL Low 80.0 - 94.0 fL [facility] MONOCYTES ABSOLUTE AUTO 0.7 [facility] Monocytes/100 WBC (Bld) 13.7 % High 1.7 - 12.0 % [facility] NEUTROPHILS ABSOLUTE AUTO 2.9 [facility] Neutrophils/100 WBC (Bld) 58.4 % 43.0 - 75.0 % [facility] TBH EO # 0.1 [facility] TB PLT 269 [facility] RBC 5.81 [facility] Comment on above: HYPOCHROMASIA 2+ OVALOCYTOSIS 2+ ANISOCYTOSIS 2+ TBH WBC 4.9 [facility] ALL CBC WITH AUTO DIFFon BASOPHILS ABSOLUTE AUTO 0 [facility] Basophils/100 WBC (Bld) 0.3 % 0.2 - 2.0 % [facility] Eosinophils/100 WBC (Bld) 0.6 % Low 0.9 - 7.0 % [facility] Erythrocyte distribution width (RBC) [Ratio] 21.9 % High 11.0 - 15.0 % [facility] Hematocrit (Bld) [Volume fraction] 39.7 % Low 42.0 - 54.0 % [facility] Hemoglobin (Bld) [Mass/Vol] 10.7 g/dL Low 14.0 - 18.0 g/dL [facility] IMMATURE GRANULOCYTES ABS AUTO 0.01 [facility] Immature granulocytes/100 WBC (Bld) 0.1 % 0.0 - 0.5 % [facility] Interpretation and review of laboratory results Abnormal [facility] LYMPHOCYTES ABSOLUTE AUTO 1.8 [facility] Lymphocytes/100 WBC (Bld) 27.6 % 20.5 - 60.0 % [facility] MCH (RBC) [Entitic mass] 17.5 pg Low 25.9 - 34.0 pg [facility] MCHC (RBC) [Mass/Vol] 27 g/dL Low 29.9 - 35.2 g/dL [facility] MCV (RBC) [Entitic vol] 64.8 fL Low 80.0 - 94.0 fL [facility] MONOCYTES ABSOLUTE AUTO 0.9 High [facility] Monocytes/100 WBC (Bld) 13.8 % High 1.7 - 12.0 % [facility] NEUTROPHILS ABSOLUTE AUTO 3.8 [facility] Neutrophils/100 WBC (Bld) 57.6 % 43.0 - 75.0 % [facility] Platelet mean volume (Bld) [Entitic vol] 9.6 fL 9.5 - 13.5 fL [facility] TBH EO # 0 [facility] TB PLT 316 [facility] RBC 6.13 High [facility] Comment on above: HYPOCHROMASIA 1+ MICROCYTOSIS 2+ ANISOCYTOSIS 2+ OVALOCYTES 1+ TBH WBC 6.7 [facility] BASIC METABOLIC PANLon 01-09 Anion gap [Moles/Vol] 8 mmol/L Normal 5-15 [facility] Comment on above: Performed By: #### C ANDRES BRYANT, #### [facility] ([id number]) [address], [facility] [address] [place] [address] Calcium [Mass/Vol] 8.5 mg/dL Normal 8.5-10.5 [facility] Comment on above: Performed By: #### C ANDRES BRYANT, #### [facility] ([id number]) [address], [facility] [address] [place] [address] Chloride [Moles/Vol] 106 mmol/L Normal 98-109 [facility] Comment on above: Performed By: #### C ANDRES BRYANT, #### [facility] ([id number]) [address], [facility] [address] [place] [address] CO2 [Moles/Vol] 28 mmol/L Normal 22-32 [facility] Comment on above: Performed By: #### C ANDRES BRYANT, #### [facility] ([id number]) [address], [facility] [address] [place] [address] Creatinine [Mass/Vol] 0.93 mg/dL Normal 0.60-1.30 [facility] Comment on above: Result Comment: METH OD TRACEABLE TO IDMS STANDARD Performed By: #### C ANDRES BRYANT, #### [facility] ([id number]) [address], [facility] [address] [place] [address] eGFR (CKD-EPI) NON-RACE DEPENDENT >90 Normal >59 [facility] Comment on above: Result Comment: Reported eGFR is based on the CKD-EPI 2020 equation that does not use a race coefficient. Performed By: #### C ANDRES BRYANT, #### [facility] ([id number]) [address], [address] [place] [address] Glucose [Mass/Vol] 87 mg/dL Normal 65-99 [facility] Comment on above: Performed By: #### C MANNY BMP, #### [facility] ([id number]) [address], [address] [place] [address] Potassium [Moles/Vol] 3.9 mmol/L Normal 3.5-5.0 [facility] Comment on above: Performed By: #### C MANNY BMP, #### [facility] ([id number]) [address], [address] [place] [address] Sodium [Moles/Vol] 142 mmol/L Normal 134-146 [facility] Comment on above: Performed By: #### Brigitte BRYANT BMP, #### [facility] ([id number]) [address], [address] [place] [address] Urea nitrogen [Mass/Vol] 13 mg/dL Normal 5-23 [facility] Comment on above: Performed By: #### C MANNY BMP, #### [facility] ([id number]) [address], [address] [place] [address] CBC AND AUTO DIFFon 01-10-20 24 ABSOLUTE BASOPHIL 0.0 X10E9/L Normal 0.0-0.2 [facility] Comment on above: Performed By: #### C MANNY, BMP, #### [facility] ([id number]) [address], [address] [place] [address] ABSOLUTE NEUTROPHIL 7.9 X10E9/L High 1.5-6.6 [facility] Comment on above: Performed By: #### Brigitte BRYANT BMP, #### [facility] ([id number]) [address], [address] [place] [address] Basophils/100 WBC (Bld) 0.2 % Normal [facility] Comment on above: Performed By: #### ANDRES Briggs BCA, #### [facility] ([id number]) [address] [place] [address] Eosinophils (Bld) [#/Vol] 0.0 10*3/uL Normal 0.0-0.4 [facility] Comment on above: Performed By: #### ANDRES Briggs BCA, #### [facility] ([id number]) [address] [place] [address] Eosinophils/100 WBC (Bld) 0.2 % Normal [facility] Comment on above: Performed By: #### ANDRES Briggs BCA, #### [facility] ([id number]) [address], [address] [place] [address] Erythrocyte distribution width (RBC) [Ratio] 20.7 % High 11.5-15.0 [facility] Comment on above: Performed By: #### ANDRES Briggs BCA, #### [facility] ([id number]) [address], [address] [place] [address] FRAGMENT 1+ Abnormal NONE [facility] Comment on above: Performed By: #### ANDRES Briggs BCA, #### [facility] ([id number]) [address] [place] [address] Hematocrit (Bld) [Volume fraction] 30.0 % Low 39-49 [facility] Comment on above: Performed By: #### ANDRES Briggs BCA, #### [facility] ([id number]) [address], [address] [place] [address] Hemoglobin (Bld) [Mass/Vol] 8.7 g/dL Low 13.0-17.0 [facility] Comment on above: Performed By: #### ANDRES Briggs BCA, #### [facility] ([id number]) [address] [place] [address] HYPOCHROMIA 2+ Abnormal NONE [facility] Comment on above: Performed By: #### C ANDRES BRYANT, #### [facility] ([id number]) [address] [place] [address] Lymphocytes (Bld) [#/Vol] 2.6 10*3/uL Normal 1.0-3.5 [facility] Comment on above: Performed By: #### ANDRES Briggs BCA, #### [facility] ([id number]) [address], [facility] [address] [place] [address] Lymphocytes/100 WBC (Bld) 22.1 % Normal [facility] Comment on above: Performed By: #### ANDRES Briggs BCA, #### [facility] ([id number]) [address] [place] [address] MCH (RBC) [Entitic mass] 16.7 pg Low 27-34 [facility] Comment on above: Performed By: #### ANDRES Briggs BCA, #### [facility] ([id number]) [address] [place] [address] MCHC (RBC) [Mass/Vol] 29.1 g/dL Low 32-36 [facility] Comment on above: Performed By: #### ANDRES Briggs BCA, #### [facility] ([id number]) [address], [address] [place] [address] MCV (RBC) [Entitic vol] 58 fL Low 80-100 [facility] Comment on above: Performed By: #### ANDRES Briggs BCA, #### [facility] ([id number]) [address], [address] [place] [address] Monocytes (Bld) [#/Vol] 1.3 10*3/uL High 0-0.9 [facility] Comment on above: Performed By: #### ANDRES Briggs BCA, #### [facility] ([id number]) [address], [address] [place] [address] Monocytes/100 WBC (Bld) 11.2 % Normal [facility] Comment on above: Performed By: #### Brigitte BRYANT, ANDRES, #### [facility] ([id number]) [address] [place] [address] Neutrophils/100 WBC (Bld) 66.3 % Normal [facility] Comment on above: Performed By: #### ANDRES Briggs BCA, #### [facility] ([id number]) [address], [address] [place] [address] OVALOCYTE 2+ Abnormal NONE [facility] Comment on above: Performed By: #### Brigitte BRYANT, BMP, #### [facility] ([id number]) [address], [address] [place] [address] Platelet mean volume (Bld) [Entitic vol] 8.7 fL Normal 7-12 [facility] Comment on above: Performed By: #### ANDRES Briggs BCA, #### [facility] ([id number]) [address] [place] [address] Platelets (Bld) [#/Vol] 326 10*3/uL Normal 150-450 [facility] Comment on above: Performed By: #### Brigitte BRYANT BMP, #### [facility] ([id number]) [address], [address] [place] [address] RBC COUNT 5.21 X10E12/L Normal 4.10-5.70 [facility] Comment on above: Performed By: #### C ANDRES BRYANT, #### [facility] ([id number]) [address] [place] [address] WBC (Bld) [#/Vol] 11.9 10*3/uL High 4.0-11.0 [facility] Comment on above: Performed By: #### ANDRES Briggs BCA, #### [facility] ([id number]) [address], [address] [place] [address] MAGNESIUMon 01-10-2024 Magnesium [Mass/Vol] 2.0 mg/dL Normal 1.8-2.6 [facility] Comment on above: Performed By: #### ANDRES Briggs BCA, #### [facility] ([id number]) [address], [address] [place] [address] BASIC METABOLIC PANLon 01-08 Anion gap [Moles/Vol] 9 mmol/L Normal 5-15 [facility] Comment on above: Performed By: #### ANDRES Briggs BCA, #### [facility] ([id number]) [address], [address] [place] [address] Calcium [Mass/Vol] 8.8 mg/dL Normal 8.5-10.5 [facility] Comment on above: Performed By: #### ANDRES Briggs BCA, #### [facility] ([id number]) [address] [place] [address] Chloride [Moles/Vol] 107 mmol/L Normal 98-109 [facility] Comment on above: Performed By: #### ANDRES Briggs BCA, #### [facility] ([id number]) [address], [address] [place] [address] CO2 [Moles/Vol] 25 mmol/L Normal 22-32 [facility] Comment on above: Performed By: #### C MANNY [facility], #### [facility] ([id number]) [address] [facility] [address] [place] [address] Creatinine [Mass/Vol] 0.96 mg/dL Normal 0.60-1.30 [facility] Comment on above: Result Comment: METH OD TRACEABLE TO IDMS STANDARD Performed By: #### C MANNY [facility], #### [facility] ([id number]) [address] [address] eGFR (CKD-EPI) NON-RACE DEPENDENT >90 Normal >59 [facility] Comment on above: Result Comment: Reported eGFR is based on the CKD-EPI 2020 equation that does not use a race coefficient. Performed By: #### C ANDRES BRYANT, #### [facility] ([id number]) [address] [facility] [address] [place] [address] Glucose [Mass/Vol] 117 mg/dL High 65-99 [facility] Comment on above: Performed By: #### C MANNY [facility], #### [facility] ([id number]) [address] [facility] [address] [place] [address] Potassium [Moles/Vol] 4.5 mmol/L Normal 3.5-5.0 [facility] Comment on above: Performed By: #### C MANNY [facility], #### [facility] ([id number]) [address] [facility] [address] [place] [address] Sodium [Moles/Vol] 141 mmol/L Normal 134-146 [facility] Comment on above: Performed By: #### C ANDRES BRYANT, #### [facility] ([id number]) [address] [facility] [address] [place] [address] Urea nitrogen [Mass/Vol] 19 mg/dL Normal 5-23 [facility] Comment on above: Performed By: #### C ANDRES BRYANT, #### [facility] ([id number]) [address] [place] [address] CBC AND AUTO DIFFon 01-09-20 24 ACANTHOCYTE 2+ Abnormal NONE [facility] Comment on above: Performed By: #### ANDRES Briggs BCA, #### [facility] ([id number]) [address] [facility] [address] [place] [address] Erythrocyte distribution width (RBC) [Ratio] 21.0 % High 11.5-15.0 [facility] Comment on above: Performed By: #### ANDRES Briggs BCA, #### [facility] ([id number]) [address] [place] [address] FRAGMENT 1+ Abnormal [facility] Comment on above: Performed By: #### ANDRES Briggs BCA, #### [facility] ([id number]) [address] [place] [address] Hematocrit (Bld) [Volume fraction] 32.9 % Low 39-49 [facility] Comment on above: Performed By: #### ANDRES Briggs BCA, #### [facility] ([id number]) [address] [place] [address] Hemoglobin (Bld) [Mass/Vol] 9.4 g/dL Low 13.0-17.0 [facility] Comment on above: Performed By: #### ANDRES Briggs BCA, #### [facility] ([id number]) [address] [facility] [address] [place] [address] HYPOCHROMIA 2+ Abnormal [facility] Comment on above: Performed By: #### ANDRES Briggs BCA, #### [facility] ([id number]) [address] [place] [address] Lymphocytes (Bld) [#/Vol] 0.6 10*3/uL Low 1.0-3.5 [facility] Comment on above: Performed By: #### ANDRES Briggs BCA, #### [facility] ([id number]) [address] [facility] [address] [place] [address] Lymphocytes/100 WBC (Bld) 4.0 % Normal [facility] Comment on above: Performed By: #### ANDRES Briggs BCA, #### [facility] ([id number]) [address] [facility] [address] [place] [address] MCH (RBC) [Entitic mass] 16.4 pg Low 27-34 [facility] Comment on above: Performed By: #### ANDRES Briggs BCA, #### [facility] ([id number]) [address], [address] [place] [address] MCHC (RBC) [Mass/Vol] 28.6 g/dL Low 32-36 [facility] Comment on above: Performed By: #### ANDRES Briggs BCA, #### [facility] ([id number]) [address] [facility] [address] [place] [address] MCV (RBC) [Entitic vol] 57 fL Low 80-100 [facility] Comment on above: Performed By: #### ANDRES Briggs BCA, #### [facility] ([id number]) [address], [address] [place] [address] Monocytes (Bld) [#/Vol] 0.5 10*3/uL Normal 0-0.9 [facility] Comment on above: Performed By: #### ANDRES Briggs BCA, #### [facility] ([id number]) [address], [address] [place] [address] Monocytes/100 WBC (Bld) 3.0 % Normal [facility] Comment on above: Performed By: #### ANDRES Briggs BCA, #### [facility] ([id number]) [address] [place] [address] Neutrophils (Bld) [#/Vol] 14.5 10*3/uL High 1.5-6.6 [facility] Comment on above: Performed By: #### ANDRES Briggs BCA, #### [facility] ([id number]) [address] [place] [address] OVALOCYTE 2+ Abnormal NONE [facility] Comment on above: Performed By: #### ANDRES Briggs BCA, #### [facility] ([id number]) [address] [place] [address] Platelet mean volume (Bld) [Entitic vol] 8.7 fL Normal 7-12 [facility] Comment on above: Performed By: #### ANDRES Briggs BCA, #### [facility] ([id number]) [address] [place] [address] Platelets (Bld) [#/Vol] 347 10*3/uL Normal 150-450 [facility] Comment on above: Performed By: #### ANDRES Briggs BCA, #### [facility] ([id number]) [address], [address] [place] [address] POLYCHROMASIA 1+ Abnormal NONE [facility] Comment on above: Performed By: #### ANDRES Briggs BCA, #### [facility] ([id number]) [address], [address] [place] [address] RBC COUNT 5.76 X10E12/L High 4.10-5.70 [facility] Comment on above: Performed By: #### C MANNY, BMP, 12260-3 #### [facility] ([id number]) [address], [address] [place] [address] SEG NEUTROPHIL 93.0 % Normal [facility] Comment on above: Performed By: #### C MANNY, BMP, 41277-0 #### [facility] ([id number]) [address], [address] [place] [address] TEARDROP 1+ Abnormal NONE [facility] Comment on above: Performed By: #### C MANNY, BMP, 71319-9 #### [facility] ([id number]) [address], [address] [place] [address] WBC (Bld) [#/Vol] 15.6 10*3/uL High 4.0-11.0 [facility] Comment on above: Performed By: #### Brigitte BRYANT, BMP, 30902-8 #### [facility] ([id number]) [address], [address] [place] [address] MAGNESIUMon 01-09-2024 Magnesium [Mass/Vol] 2.0 mg/dL Normal 1.8-2.6 [facility] Comment on above: Performed By: #### Brigitte BRYANT, BMP, 89657-6 #### [facility] ([id number]) [address] [place] [address] Surgical Pathologyon 024 Surgical Pathology Normal [facility] Comment on above: Result Comment: [facility] [address] [place] [address] Surgical Pathology Consultation Patient Name:SASCHA COLBERTMDOB:2000 (Age: 23)Gender:MTaken:4Reported:4Physician(s):Pushpa Silva MD ([phone])Copy To: Rec. #:[id number]: #[id number] Final Pathologic Diagnosis Rectosigmoidectomy: Mucosal ischemic change with superficial mucosal necrosis, acute inflammation, hyalinization of lamina propria and atrophic crypts. Strands of smooth muscle extending into lamina propria with surface erosion compatible with prolapse changes. No malignancy identified. Report Electronically Signed [facility]/01/13/2024Calvin Cortez M.D. [place] [address], License number: [id number]. Clinical History Rectal prolapse, ischemic rectum. Gross [...] sections of proximal margin G edematous wall (7,ss,[id number], m1) . /01/09/2024 Specimen(s) Received Rectum and sigmoid Fee Codes(s): 1; 53966 CBC AND AUTO DIFFon 01-08-20 ABSOLUTE BASOPHIL 0.1 X10E9/L Normal 0.0-0.2 [facility] Comment on above: Performed By: #### P INR, 92371-6, CMP, CBCA #### [facility] ([id number]) [address] [place] [address], [place] [address] ABSOLUTE NEUTROPHIL 14.8 X10E9/L High 1.5-6.6 [facility] Comment on above: Performed By: #### P INR, 00625-4, CMP, CBCA #### [facility] ([id number]) [address] [place] [address] 20085 Basophils/100 WBC (Bld) 0.3 % Normal [facility] Comment on above: Performed By: #### P INR, 08483-9, CMP, CBCA #### [facility] ([id number]) [address] [place] [address] 47902 Eosinophils (Bld) [#/Vol] 0.0 10*3/uL Normal 0.0-0.4 [facility] Comment on above: Performed By: #### P INR, 85606-5, CMP, CBCA #### [facility] ([id number]) [address] [place] [address] 44169 Eosinophils/100 WBC (Bld) 0.0 % Normal [facility] Comment on above: Performed By: #### P INR, 75334-5, CMP, CBCA #### [facility] ([id number]) [address] [place] [address] 40798 Erythrocyte distribution width (RBC) [Ratio] 20.9 % High 11.5-15.0 [facility] Comment on above: Performed By: #### P INR, 02250-8, CMP, CBCA #### [facility] ([id number]) [address] [place] [address] 96794 Hematocrit (Bld) [Volume fraction] 33.4 % Low 39-49 [facility] Comment on above: Performed By: #### P INR, 47781-5, CMP, CBCA #### [facility] ([id number]) [address] [place] [address] 12543 Hemoglobin (Bld) [Mass/Vol] 9.5 g/dL Low 13.0-17.0 [facility] Comment on above: Performed By: #### P INR, 89614-0, CMP, CBCA #### [facility] ([id number]) [address] [place] [address] 60671 Lymphocytes (Bld) [#/Vol] 0.4 10*3/uL Low 1.0-3.5 [facility] Comment on above: Performed By: #### P INR, 69284-0, CMP, CBCA #### [facility] ([id number]) [address] [place] [address] 76378 Lymphocytes/100 WBC (Bld) 2.6 % Normal [facility] Comment on above: Performed By: #### P INR, 98785-5, CMP, CBCA #### [facility] ([id number]) [address] [place] [address] 72881 MCH (RBC) [Entitic mass] 16.4 pg Low 27-34 [facility] Comment on above: Performed By: #### P INR, 47687-7, CMP, CBCA #### [facility] ([id number]) [address] [place] [address] 26595 MCHC (RBC) [Mass/Vol] 28.6 g/dL Low 32-36 [facility] Comment on above: Performed By: #### P INR, 67329-3, CMP, CBCA #### [facility] ([id number]) [address] [place] [address] 08201 MCV (RBC) [Entitic vol] 58 fL Low 80-100 [facility] Comment on above: Performed By: #### P INR, 29477-8, CMP, CBCA #### [facility] ([id number]) [address] [place] [address] 95805 Monocytes (Bld) [#/Vol] 1.4 10*3/uL High 0-0.9 [facility] Comment on above: Performed By: #### P INR, 44596-9, CMP, CBCA #### [facility] ([id number]) [address] [place] [address] 99266 Monocytes/100 WBC (Bld) 8.5 % Normal [facility] Comment on above: Performed By: #### P INR, 22305-8, CMP, CBCA #### [facility] ([id number]) [address] [place] [address] 41806 Neutrophils/100 WBC (Bld) 88.6 % Normal [facility] Comment on above: Performed By: #### P INR, 22646-1, CMP, CBCA #### [facility] ([id number]) [address] [place] [address] 29115 Platelet mean volume (Bld) [Entitic vol] 8.7 fL Normal 7-12 [facility] Comment on above: Performed By: #### P INR, 99808-7, CMP, CBCA #### [facility] ([id number]) [address] [place] [address], [place] [address] Platelets (Bld) [#/Vol] 366 10*3/uL Normal 150-450 [facility] Comment on above: Performed By: #### P INR, 29452-1, CMP, CBCA #### [facility] ([id number]) [address] [place] [address] 20053 RBC COUNT 5.81 X10E12/L High 4.10-5.70 [facility] Comment on above: Performed By: #### P INR, 92460-5, CMP, CBCA #### [facility] ([id number]) [address] [place] [address] 34508 WBC (Bld) [#/Vol] 16.7 10*3/uL High 4.0-11.0 [facility] Comment on above: Performed By: #### P INR, 89824-2, CMP, CBCA #### [facility] ([id number]) [address] [place] [address] 31405 COMPREHENSIVE METABOLIC PANE Angel 01-08-2024 Albumin [Mass/Vol] 4.3 g/dL Normal 3.2-5.3 [facility] Comment on above: Performed By: #### P INR, 89510-6, CMP, CBCA #### [facility] ([id number]) [address] [place] [address] 59090 ALP [Catalytic activity/Vol] 67 U/L Normal 39-130 [facility] Comment on above: Performed By: #### P INR, 43867-5, CMP, CBCA #### [facility] ([id number]) [address] [place] [address] 04325 ALT [Catalytic activity/Vol] 19 U/L Normal 0-40 [facility] Comment on above: Performed By: #### P INR, 82439-9, CMP, CBCA #### [facility] ([id number]) [address] [place] [address] 35162 Anion gap [Moles/Vol] 6 mmol/L Normal 5-15 [facility] Comment on above: Performed By: #### P INR, 89476-8, CMP, CBCA #### [facility] ([id number]) [address] [place] [address] 87647 AST [Catalytic activity/Vol] 26 U/L Normal 0-41 [facility] Comment on above: Performed By: #### P INR, 80535-4, CMP, CBCA #### [facility] ([id number]) [address] [place] [address] 62640 Bilirubin [Mass/Vol] 0.5 mg/dL Normal 0.3-1.2 [facility] Comment on above: Performed By: #### P INR, 70936-8, CMP, CBCA #### [facility] ([id number]) [address] [place] [address] 33160 Calcium [Mass/Vol] 8.8 mg/dL Normal 8.5-10.5 [facility] Comment on above: Performed By: #### P INR, 03760-2, CMP, CBCA #### [facility] ([id number]) [address] [place] [address] 63565 Chloride [Moles/Vol] 102 mmol/L Normal 98-109 [facility] Comment on above: Performed By: #### P INR, 44963-2, CMP, CBCA #### [facility] ([id number]) [address] [place] [address] 45109 CO2 [Moles/Vol] 23 mmol/L Normal 22-32 [facility] Comment on above: Performed By: #### P INR, 21080-4, CMP, CBCA #### [facility] ([id number]) [address] [place] [address] 10574 Creatinine [Mass/Vol] 1.03 mg/dL Normal 0.70-1.20 [facility] Comment on above: Result Comment: METH OD TRACEABLE TO IDMS STANDARD Performed By: #### P INR, 96794-6, CMP, CBCA #### [facility] ([id number]) [address] [place] [address] 19222 eGFR (CKD-EPI) NON-RACE DEPENDENT >90 Normal >59 [facility] Comment on above: Result Comment: Reported eGFR is based on the CKD-EPI 2020 equation that does not use a race coefficient. Performed By: #### P INR, 02964-6, CMP, CBCA #### [facility] ([id number]) [address] [place] [address] 61361 Glucose [Mass/Vol] 114 mg/dL High 65-99 [facility] Comment on above: Performed By: #### P INR, 05870-0, CMP, CBCA #### [facility] ([id number]) [address] [place] [address] 99132 Potassium [Moles/Vol] 4.0 mmol/L Normal 3.5-5.0 [facility] Comment on above: Performed By: #### P INR, 78172-6, CMP, CBCA #### [facility] ([id number]) [address] [place] [address] 21834 Protein [Mass/Vol] 6.9 g/dL Normal 6.0-8.0 [facility] Comment on above: Performed By: #### P INR, 24211-7, CMP, CBCA #### [facility] ([id number]) [address] [place] [address] 59164 Sodium [Moles/Vol] 131 mmol/L Low 134-146 [facility] Comment on above: Performed By: #### P INR, 17502-3, CMP, CBCA #### [facility] ([id number]) [address] [place] [address] 99570 Urea nitrogen [Mass/Vol] 17 mg/dL Normal 5-23 [facility] Comment on above: Performed By: #### P INR, 07488-6, CMP, CBCA #### [facility] ([id number]) [address] [place] [address] 49763 PROTIME AND INRon 01-08-2024 INR Coag (PPP) [Relative time] 1.0 {INR} Normal 0.8-1.1 [facility] Comment on above: Performed By: #### P INR, 92744-7, CMP, CBCA #### [facility] ([id number]) [address] [place] [address] 42853 PT Coag (PPP) [Time] 12.0 s Normal 9.8-13.2 [facility] Comment on above: Result Comment: NEW REFERENCE RANGE Performed By: #### P INR, 00470-3, CMP, CBCA #### [facility] ([id number]) [address] [place] [address] 44957 aPTT Coag (PPP) [Time]on aPTT Coag (Bld) [Time] 37 s Normal 26-37 [facility] Comment on above: Result Comment: NEW REFERENCE RANGE Performed By: #### P INR, 97011-9, CMP, CBCA #### [facility] ([id number]) [address] [place] [address] 16553 CBC AUTO DIFFon 03-26-2023 BASO # 0.0 103/ul Normal 0.0-0.1 [facility] Comment on above: Performed By: #### C BC #### [facility] [address] [place] [address] Dr. Sonido Bejarano Basophils/100 WBC (Bld) 0.7 % Normal 0.2-2.0 [facility] Comment on above: Performed By: #### C BC #### [facility] [address] [place] [address] Dr. Sonido Bejarano EO # 0.1 103/ul Normal 0.0-0.7 [facility] Comment on above: Performed By: #### C BC #### [facility] [address] [place] [address] Dr. Sonido Bejarano Eosinophils/100 WBC (Bld) 1.0 % Normal 0.9-7.0 [facility] Comment on above: Performed By: #### C BC #### [facility] [address] [place] [address] Dr. Sonido Bejarano Erythrocyte distribution width (RBC) [Ratio] 22.3 % Critically high 11.0-15.0 [facility] Comment on above: Performed By: #### C BC #### [facility] [address] [place] [address] Dr. Sonido Bejarano Hematocrit (Bld) [Volume fraction] 32.0 % Critically low 42.0-54.0 [facility] Comment on above: Performed By: #### C BC #### [facility] [address] [place] [address] Dr. Sonido Bejarano Hemoglobin (Bld) [Mass/Vol] 8.3 g/dL Critically low 14.0-18.0 [facility] Comment on above: Performed By: #### C BC #### [facility] [address] [place] [address] Dr. Sonido Bejarano IG # 0.01 10e3/ul Normal 0.00-0.03 [facility] Comment on above: Performed By: #### C BC #### [facility] [address] [place] [address] Dr. Sonido Bejarano IG % 0.2 % Normal 0.0-0.5 [facility] Comment on above: Performed By: #### C BC #### [facility] [address] [place] [address] Dr. Sonido Bejarano LYMPH # 1.2 103/ul Normal 1.2-3.8 [facility] Comment on above: Performed By: #### C BC #### [facility] [address] [place] [address] Dr. Sonido Bejarano Lymphocytes/100 WBC (Bld) 20.1 % Critically low 20.5-60.0 [facility] Comment on above: Performed By: #### C BC #### [facility] [address] [place] [address] Dr. Sonido Bejarano MANUAL DIFF REQ NO Normal [facility] Comment on above: Performed By: #### C BC #### [facility] [address] [place] [address] Dr. Sonido Bejarano MCH (RBC) [Entitic mass] 15.7 pg Critically low 25.9-34.0 [facility] Comment on above: Performed By: #### C BC #### [facility] [address] [place] [address] Dr. Sonido Bejarano MCHC (RBC) [Mass/Vol] 25.9 g/dL Critically low 29.9-35.2 [facility] Comment on above: Performed By: #### C BC #### [facility] [address] [address] [address] Sonido Bejarano MCV (RBC) [Entitic vol] 60.6 fL Critically low 80.0-94.0 [facility] Comment on above: Performed By: #### C BC #### [facility] [address] [address] [address] Sonido Bejarano MONO # 0.7 103/ul Normal 0.3-0.8 [facility] Comment on above: Performed By: #### C BC #### [facility] [address] [place] [address] Dr. Sonido Bejarano Monocytes/100 WBC (Bld) 12.2 % Critically high 1.7-12.0 [facility] Comment on above: Performed By: #### C BC #### [facility] [address] [place] [address] Dr. Sonido Bejarano NEUT # 3.8 103/ul Normal 1.4-6.5 [facility] Comment on above: Performed By: #### C BC #### [facility] [address] [place] [address] Dr. Sonido Bejarano Neutrophils/100 WBC (Bld) 65.8 % Normal 43.0-75.0 [facility] Comment on above: Performed By: #### C BC #### [facility] [address] [place] [address] Dr. Sonido Bejarano Platelet mean volume (Bld) [Entitic vol] 9.2 fL Critically low 9.5-13.5 [facility] Comment on above: Performed By: #### C BC #### [facility] [address] [place] [address] Dr. Sonido Bejarano PLT 369 103/ul Normal 150-450 [facility] Comment on above: Performed By: #### C BC #### [facility] [address] [place] [address] Dr. Sonido Bejarano RBC 5.28 106/ul Normal 4.70-6.10 [facility] Comment on above: Performed By: #### C BC #### [facility] [address] [address] [address] Sonido Bejarano WBC 5.8 103/ul Normal 4.0-11.0 [facility] Comment on above: Performed By: #### C BC #### [facility] [address] [address] [address] Sonido Bejarano CBC AUTO DIFFon 02-19-2023 BASO # 0.0 103/ul Normal 0.0-0.1 [facility] Comment on above: Performed By: #### C BC #### [facility] [address] [place] [address] Dr. Sonido Bejarano Basophils/100 WBC (Bld) 0.7 % Normal 0.2-2.0 [facility] Comment on above: Performed By: #### C BC #### [facility] [address] [place] [address] Dr. Sonido Bejarano EO # 0.1 103/ul Normal 0.0-0.7 [facility] Comment on above: Performed By: #### C BC #### [facility] [address] [place] [address] Dr. Sonido Bejarano Eosinophils/100 WBC (Bld) 1.1 % Normal 0.9-7.0 [facility] Comment on above: Performed By: #### C BC #### [facility] [address] [place] [address] Dr. Sonido Bejarano Erythrocyte distribution width (RBC) [Ratio] 22.7 % Critically high 11.0-15.0 [facility] Comment on above: Performed By: #### C BC #### [facility] [address] [place] [address] Dr. Sonido Bejarano Hematocrit (Bld) [Volume fraction] 32.9 % Critically low 42.0-54.0 [facility] Comment on above: Performed By: #### C BC #### [facility] [address] [place] [address] Dr. Sonido Bejarano Hemoglobin (Bld) [Mass/Vol] 8.2 g/dL Critically low 14.0-18.0 [facility] Comment on above: Performed By: #### C BC #### [facility] [address] [address] [address] Sonido Bejarano IG # 0.02 10e3/ul Normal 0.00-0.03 [facility] Comment on above: Performed By: #### C BC #### [facility] [address] [address] [address] Sonido Bejarano IG % 0.3 % Normal 0.0-0.5 [facility] Comment on above: Performed By: #### C BC #### [facility] [address] [place] [address] Dr. Sonido Bejarano LYMPH # 1.4 103/ul Normal 1.2-3.8 [facility] Comment on above: Performed By: #### C BC #### [facility] [address] [place] [address] Dr. Sonido Bejarano Lymphocytes/100 WBC (Bld) 22.8 % Normal 20.5-60.0 [facility] Comment on above: Performed By: #### C BC #### [facility] [address] [place] [address] Dr. Sonido Bejarano MANUAL DIFF REQ NO Normal [facility] Comment on above: Performed By: #### C BC #### [facility] [address] [place] [address] Dr. Sonido Bejarano MCH (RBC) [Entitic mass] 15.3 pg Critically low 25.9-34.0 [facility] Comment on above: Performed By: #### C BC #### [facility] [address] [place] [address] Dr. Sonido Bejarano MCHC (RBC) [Mass/Vol] 24.9 g/dL Critically low 29.9-35.2 [facility] Comment on above: Performed By: #### C BC #### [facility] [address] [place] [address] Dr. Sonido Bejarano MCV (RBC) [Entitic vol] 61.3 fL Critically low 80.0-94.0 [facility] Comment on above: Performed By: #### C BC #### [facility] [address] [place] [address] Dr. Sonido Bejarano MONO # 0.7 103/ul Normal 0.3-0.8 [facility] Comment on above: Performed By: #### C BC #### [facility] [address] [place] [address] Dr. Sonido Bejarano Monocytes/100 WBC (Bld) 11.6 % Normal 1.7-12.0 [facility] Comment on above: Performed By: #### C BC #### [facility] [address] [place] [address] Dr. Sonido Bejarano NEUT # 3.9 103/ul Normal 1.4-6.5 [facility] Comment on above: Performed By: #### C BC #### [facility] [address] [place] [address] Dr. Sonido Bejarano Neutrophils/100 WBC (Bld) 63.5 % Normal 43.0-75.0 [facility] Comment on above: Performed By: #### C BC #### [facility] [address] [place] [address] Dr. Sonido Bejarano Platelet mean volume (Bld) [Entitic vol] 9.3 fL Critically low 9.5-13.5 [facility] Comment on above: Performed By: #### C BC #### [facility] [address] [place] [address] Dr. Sonido Bejarano PLT 394 103/ul Normal 150-450 [facility] Comment on above: Performed By: #### C BC #### [facility] [address] [place] [address] Dr. Sonido Bejarano RBC 5.37 106/ul Normal 4.70-6.10 [facility] Comment on above: Performed By: #### C BC #### [facility] [address] [place] [address] Dr. Sonido Bejarano WBC 6.1 103/ul Normal 4.0-11.0 [facility] Comment on above: Performed By: #### C BC #### [facility] [address] [place] [address] Dr. Sonido Bejarano CBC AUTO DIFFon 01-15-2023 BASO # 0.0 103/ul Normal 0.0-0.1 [facility] Comment on above: Performed By: #### C BC #### [facility] [address] [place] [address] Dr. Sonido Bejarano Basophils/100 WBC (Bld) 0.3 % Normal 0.2-2.0 [facility] Comment on above: Performed By: #### C BC #### [facility] [address] [place] [address] Dr. Sonido Bejarano EO # 0.0 103/ul Normal 0.0-0.7 [facility] Comment on above: Performed By: #### C BC #### [facility] [address] [place] [address] Dr. Sonido Bejarano Eosinophils/100 WBC (Bld) 0.4 % Critically low 0.9-7.0 [facility] Comment on above: Performed By: #### C BC #### [facility] [address] [place] [address] Dr. Sonido Bejarano Erythrocyte distribution width (RBC) [Ratio] 22.4 % Critically high 11.0-15.0 [facility] Comment on above: Performed By: #### C BC #### [facility] [address] [place] [address] Dr. Sonido Bejarano Hematocrit (Bld) [Volume fraction] 31.5 % Critically low 42.0-54.0 [facility] Comment on above: Performed By: #### C BC #### [facility] [address] [place] [address] Dr. Sonido Bejarano Hemoglobin (Bld) [Mass/Vol] 8.1 g/dL Critically low 14.0-18.0 [facility] Comment on above: Performed By: #### C BC #### [facility] [address] [place] [address] Dr. Sonido Bejarano IG # 0.02 10e3/ul Normal 0.00-0.03 [facility] Comment on above: Performed By: #### C BC #### [facility] [address] [address] [address] Sonido Bejarano IG % 0.3 % Normal 0.0-0.5 [facility] Comment on above: Performed By: #### C BC #### [facility] [address] [address] [address] Sonido Bejarano LYMPH # 1.3 103/ul Normal 1.2-3.8 [facility] Comment on above: Performed By: #### C BC #### [facility] [address] [place] [address] Dr. Sonido Bejarano Lymphocytes/100 WBC (Bld) 19.4 % Critically low 20.5-60.0 [facility] Comment on above: Performed By: #### C BC #### [facility] [address] [place] [address] Dr. Sonido Bejarano MANUAL DIFF REQ NO Normal [facility] Comment on above: Performed By: #### C BC #### [facility] Laboratory [address] [place] [address] Dr. Sonido Bejarano MCH (RBC) [Entitic mass] 15.5 pg Critically low 25.9-34.0 [facility] Comment on above: Performed By: #### C BC #### [facility] [address] [place] [address] Dr. Sonido Bejarano MCHC (RBC) [Mass/Vol] 25.7 g/dL Critically low 29.9-35.2 [facility] Comment on above: Performed By: #### C BC #### [facility] [address] [place] [address] Dr. Sonido Bejarano MCV (RBC) [Entitic vol] 60.2 fL Critically low 80.0-94.0 [facility] Comment on above: Performed By: #### C BC #### [facility] [address] [place] [address] Dr. Sonido Bejarano MONO # 0.9 103/ul Critically high 0.3-0.[address] [facility] Comment on above: Performed By: #### C BC #### [facility] [address] [address] [address] Sonido Bejarano Monocytes/100 WBC (Bld) 12.9 % Critically high 1.7-12.0 [facility] Comment on above: Performed By: #### C BC #### [facility] [address] [address] [address] Sonido Bejarano NEUT # 4.5 103/ul Normal 1.4-6.5 [facility] Comment on above: Performed By: #### C BC #### [facility] [address] [place] [address] Dr. Sonido Bejarano Neutrophils/100 WBC (Bld) 66.7 % Normal 43.0-75.0 [facility] Comment on above: Performed By: #### C BC #### [facility] [address] [place] [address] Dr. Sonido Bejarano Platelet mean volume (Bld) [Entitic vol] 9.2 fL Critically low 9.5-13.5 [facility] Comment on above: Performed By: #### C BC #### [facility] [address] [place] [address] Dr. Sonido Bejarano PLT 356 103/ul Normal 150-450 [facility] Comment on above: Performed By: #### C BC #### [facility] [address] [place] [address] Dr. Sonido Bejarano RBC 5.23 106/ul Normal 4.70-6.10 [facility] Comment on above: Result Comment: 2+ P OIKILOCYTOSIS 2+ ANISOCYTOSIS 2+ OVALOCYTE 1+ TEAR DROP CELL 2+ ACANTHOCYTE Performed By: #### C BC #### [facility] [address] [place] [address] Dr. Sonido Bejarano WBC 6.8 103/ul Normal 4.0-11.0 [facility] Comment on above: Performed By: #### C BC #### [facility] [address] [place] [address] Dr. Sonido Bejarano CBC AUTO DIFFon 12-20-2022 BASO # 0.0 103/ul Normal 0.0-0.1 [facility] Comment on above: Performed By: #### C BC #### [facility] [address] [address] [address] Sonido Bejarano Basophils/100 WBC (Bld) 0.5 % Normal 0.2-2.0 [facility] Comment on above: Performed By: #### C BC #### [facility] [address] [address] [address] Sonido Bejarano EO # 0.1 103/ul Normal 0.0-0.7 [facility] Comment on above: Performed By: #### C BC #### [facility] [address] [address] [address] Sonido Bejarano Eosinophils/100 WBC (Bld) 1.3 % Normal 0.9-7.0 [facility] Comment on above: Performed By: #### C BC #### [facility] [address] [place] [address] Dr. Sonido Bejarano Erythrocyte distribution width (RBC) [Ratio] 22.8 % Critically high 11.0-15.0 [facility] Comment on above: Performed By: #### C BC #### [facility] [address] [place] [address] Dr. Sonido Bejarano Hematocrit (Bld) [Volume fraction] 34.5 % Critically low 42.0-54.0 [facility] Comment on above: Performed By: #### C BC #### [facility] [address] [place] [address] Dr. Sonido Bejarano Hemoglobin (Bld) [Mass/Vol] 8.9 g/dL Critically low 14.0-18.0 [facility] Comment on above: Performed By: #### C BC #### [facility] [address] [place] [address] Dr. Sonido Bejarano IG # 0.01 10e3/ul Normal 0.00-0.03 [facility] Comment on above: Performed By: #### C BC #### [facility] [address] [place] [address] Dr. Sonido Bejarano IG % 0.2 % Normal 0.0-0.5 [facility] Comment on above: Performed By: #### C BC #### [facility] [address] [address] [address] Sonido Bejarano LYMPH # 1.0 103/ul Critically low 1.2-3.8 [facility] Comment on above: Performed By: #### C BC #### [facility] [address] [place] [address] Dr. Sonido Bejarano Lymphocytes/100 WBC (Bld) 18.3 % Critically low 20.5-60.0 [facility] Comment on above: Performed By: #### C BC #### [facility] [address] [place] [address] Dr. Sonido Bejarano MANUAL DIFF REQ NO Normal [facility] Comment on above: Performed By: #### C BC #### [facility] [address] [place] [address] Dr. Sonido Bejarano MCH (RBC) [Entitic mass] 15.6 pg Critically low 25.9-34.0 [facility] Comment on above: Performed By: #### C BC #### [facility] [address] [place] [address] Dr. Sonido Bejarano MCHC (RBC) [Mass/Vol] 25.8 g/dL Critically low 29.9-35.2 [facility] Comment on above: Performed By: #### C BC #### [facility] [address] [place] [address] Dr. Sonido Bejarano MCV (RBC) [Entitic vol] 60.6 fL Critically low 80.0-94.0 [facility] Comment on above: Performed By: #### C BC #### [facility] [address] [place] [address] Dr. Sonido Bejarano MONO # 0.7 103/ul Normal 0.3-0.8 [facility] Comment on above: Performed By: #### C BC #### [facility] [address] [place] [address] Dr. Sonido Bejarano Monocytes/100 WBC (Bld) 13.2 % Critically high 1.7-12.0 [facility] Comment on above: Performed By: #### C BC #### [facility] [address] [place] [address] Dr. Sonido Bejarano NEUT # 3.7 103/ul Normal 1.4-6.5 [facility] Comment on above: Performed By: #### C BC #### [facility] [address] [place] [address] Dr. Sonido Bejarano Neutrophils/100 WBC (Bld) 66.5 % Normal 43.0-75.0 [facility] Comment on above: Performed By: #### C BC #### [facility] [address] [place] [address] Dr. Sonido Bejarano Platelet mean volume (Bld) [Entitic vol] 9.6 fL Normal 9.5-13.5 [facility] Comment on above: Performed By: #### C BC #### [facility] [address] [place] [address] Dr. Sonido Bejarano PLT 441 103/ul Normal 150-450 [facility] Comment on above: Performed By: #### C BC #### [facility] [address] [place] [address] Dr. Sonido Bejarano RBC 5.69 106/ul Normal 4.70-6.10 [facility] Comment on above: Result Comment: Anis ocytosis 2+ Hypochromasia 2+ Poikilocytosis 2+ Ovalocytes 1+ Tear drop cells 1+ Acanthocytes 1+ Performed By: #### C BC #### [facility] [address] [place] [address] Dr. Sonido Bejarano WBC 5.5 103/ul Normal 4.0-11.0 [facility] Comment on above: Performed By: #### C BC #### [facility] [address] [place] [address] Dr. Sonido Bejarano CBC AUTO DIFFon 11-20-2022 BASO # 0.1 103/ul Normal 0.0-0.1 [facility] Comment on above: Performed By: #### C BC #### [facility] [address] [place] [address] Dr. Sonido Bejarano Basophils/100 WBC (Bld) 1.0 % Normal 0.2-2.0 [facility] Comment on above: Performed By: #### C BC #### [facility] [address] [place] [address] Dr. Sonido Bejarano EO # 0.1 103/ul Normal 0.0-0.7 [facility] Comment on above: Performed By: #### C BC #### [facility] [address] [place] [address] Dr. Sonido Bejarano Eosinophils/100 WBC (Bld) 2.1 % Normal 0.9-7.0 [facility] Comment on above: Performed By: #### C BC #### [facility] [address] [place] [address] Dr. Sonido Bejarano Erythrocyte distribution width (RBC) [Ratio] 23.0 % Critically high 11.0-15.0 [facility] Comment on above: Performed By: #### C BC #### [facility] [address] [place] [address] Dr. Sonido Bejarano Hematocrit (Bld) [Volume fraction] 32.6 % Critically low 42.0-54.0 [facility] Comment on above: Performed By: #### C BC #### [facility] [address] [place] [address] Dr. Sonido Bejarano Hemoglobin (Bld) [Mass/Vol] 8.0 g/dL Critically low 14.0-18.0 [facility] Comment on above: Performed By: #### C BC #### [facility] [address] [place] [address] Dr. Sonido Bejarano IG # 0.01 10e3/ul Normal 0.00-0.03 [facility] Comment on above: Performed By: #### C BC #### [facility] [address] [place] [address] Dr. Sonido Bejarano IG % 0.2 % Normal 0.0-0.5 [facility] Comment on above: Performed By: #### C BC #### [facility] [address] [place] [address] Dr. Sonido Bejarano LYMPH # 1.1 103/ul Critically low 1.2-3.8 [facility] Comment on above: Performed By: #### C BC #### [facility] [address] [place] [address] Dr. Sonido Bejarano Lymphocytes/100 WBC (Bld) 22.0 % Normal 20.5-60.0 [facility] Comment on above: Performed By: #### C BC #### [facility] [address] [place] [address] Dr. Sonido Bejarano MANUAL DIFF REQ NO Normal [facility] Comment on above: Performed By: #### C BC #### [facility] [address] [place] [address] Dr. Sonido Bejarano MCH (RBC) [Entitic mass] 15.6 pg Critically low 25.9-34.0 [facility] Comment on above: Performed By: #### C BC #### [facility] [address] [place] [address] Dr. Sonido Bejarano MCHC (RBC) [Mass/Vol] 24.5 g/dL Critically low 29.9-35.2 [facility] Comment on above: Performed By: #### C BC #### [facility] [address] [place] [address] Dr. Sonido Bejarano MCV (RBC) [Entitic vol] 63.4 fL Critically low 80.0-94.0 [facility] Comment on above: Performed By: #### C BC #### [facility] [address] [place] [address] Dr. Sonido Bejarano MONO # 0.6 103/ul Normal 0.3-0.8 [facility] Comment on above: Performed By: #### C BC #### [facility] [address] [place] [address] Dr. Sonido Bejarano Monocytes/100 WBC (Bld) 13.0 % Critically high 1.7-12.0 [facility] Comment on above: Performed By: #### C BC #### [facility] [address] [place] [address] Dr. Sonido Bejarano NEUT # 3.0 103/ul Normal 1.4-6.5 [facility] Comment on above: Performed By: #### C BC #### [facility] [address] [place] [address] Dr. Sonido Bejarano Neutrophils/100 WBC (Bld) 61.7 % Normal 43.0-75.0 [facility] Comment on above: Performed By: #### C BC #### [facility] [address] [place] [address] Dr. Sonido Bejarano Platelet mean volume (Bld) [Entitic vol] 8.6 fL Critically low 9.5-13.5 [facility] Comment on above: Performed By: #### C BC #### [facility] [address] [place] [address] Dr. Sonido Bejarano PLT 333 103/ul Normal 150-450 [facility] Comment on above: Performed By: #### C BC #### [facility] [address] [place] [address] Dr. Sonido Bejarano RBC 5.14 106/ul Normal 4.70-6.10 [facility] Comment on above: Performed By: #### C BC #### [facility] [address] [place] [address] Dr. Sonido Bejarano WBC 4.9 103/ul Normal 4.0-11.0 [facility] Comment on above: Performed By: #### C BC #### [facility] [address] [place] [address] Dr. Sonido Bejarano CBC AUTO DIFFon 10-11-2022 BASO # 0.0 103/ul Normal 0.0-0.1 [facility] Comment on above: Performed By: #### C BC #### [facility] [address] [place] [address] Dr. Sonido Bejarano Basophils/100 WBC (Bld) 0.8 % Normal 0.2-2.0 [facility] Comment on above: Performed By: #### C BC #### [facility] [address] [place] [address] Dr. Sonido Bejarano EO # 0.1 103/ul Normal 0.0-0.7 [facility] Comment on above: Performed By: #### C BC #### [facility] [address] [place] [address] Dr. Sonido Bejarano Eosinophils/100 WBC (Bld) 1.5 % Normal 0.9-7.0 [facility] Comment on above: Performed By: #### C BC #### [facility] [address] [place] [address] Dr. Sonido Bejarano Erythrocyte distribution width (RBC) [Ratio] 22.4 % Critically high 11.0-15.0 [facility] Comment on above: Performed By: #### C BC #### [facility] [address] [place] [address] Dr. Sonido Bejarano Hematocrit (Bld) [Volume fraction] 32.3 % Critically low 42.0-54.0 [facility] Comment on above: Performed By: #### C BC #### [facility] [address] [place] [address] Dr. Sonido Bejarano Hemoglobin (Bld) [Mass/Vol] 8.1 g/dL Critically low 14.0-18.0 [facility] Comment on above: Performed By: #### C BC #### [facility] [address] [place] [address] Dr. Sonido Bejarano IG # 0.01 10e3/ul Normal 0.00-0.03 [facility] Comment on above: Performed By: #### C BC #### [facility] [address] [place] [address] Dr. Sonido Bejarano IG % 0.2 % Normal 0.0-0.5 [facility] Comment on above: Performed By: #### C BC #### [facility] [address] [place] [address] Dr. Sonido Bejarano LYMPH # 1.2 103/ul Normal 1.2-3.8 [facility] Comment on above: Performed By: #### C BC #### [facility] [address] [place] [address] Dr. Sonido Bejarano Lymphocytes/100 WBC (Bld) 22.8 % Normal 20.5-60.0 [facility] Comment on above: Performed By: #### C BC #### [facility] [address] [place] [address] Dr. Sonido Bejarano MANUAL DIFF REQ NO Normal [facility] Comment on above: Performed By: #### C BC #### [facility] [address] [place] [address] Dr. Sonido Bejarano MCH (RBC) [Entitic mass] 15.1 pg Critically low 25.9-34.0 [facility] Comment on above: Performed By: #### C BC #### [facility] [address] [place] [address] Dr. Sonido Bejarano MCHC (RBC) [Mass/Vol] 25.1 g/dL Critically low 29.9-35.2 [facility] Comment on above: Performed By: #### C BC #### [facility] [address] [place] [address] Dr. Sonido Bejarano MCV (RBC) [Entitic vol] 60.0 fL Critically low 80.0-94.0 [facility] Comment on above: Performed By: #### C BC #### [facility] [address] [place] [address] Dr. Sonido Bejarano MONO # 0.7 103/ul Normal 0.3-0.8 [facility] Comment on above: Performed By: #### C BC #### [facility] [address] [place] [address] Dr. Sonido Bejarano Monocytes/100 WBC (Bld) 12.5 % Critically high 1.7-12.0 [facility] Comment on above: Performed By: #### C BC #### [facility] [address] [place] [address] Dr. Sonido Bejarano NEUT # 3.2 103/ul Normal 1.4-6.5 [facility] Comment on above: Performed By: #### C BC #### [facility] [address] [place] [address] Dr. Sonido Bejarano Neutrophils/100 WBC (Bld) 62.2 % Normal 43.0-75.0 [facility] Comment on above: Performed By: #### C BC #### [facility] [address] [place] [address] Dr. Sonido Bejarano Platelet mean volume (Bld) [Entitic vol] 8.6 fL Critically low 9.5-13.5 [facility] Comment on above: Performed By: #### C BC #### [facility] [address] [place] [address] Dr. Sonido Bejarano PLT 345 103/ul Normal 150-450 [facility] Comment on above: Performed By: #### C BC #### [facility] [address] [place] [address] Dr. Sonido Bejarano RBC 5.38 106/ul Normal 4.70-6.10 [facility] Comment on above: Performed By: #### C BC #### [facility] [address] [place] [address] Dr. Sonido Bejarano WBC 5.2 103/ul Normal 4.0-11.0 [facility] Comment on above: Performed By: #### C BC #### [facility] [address] [place] [address] Dr. Sonido Bejarano CBC W MANUAL DIFFon 09-18-20 ANISOCYTOSIS 3+ Normal [facility] Comment on above: Performed By: #### C BCMAN #### [facility] [address] [place] [address] Dr. Sonido Bejarano ATYPICAL LYMPH # Normal [facility] Comment on above: Performed By: #### C BCMAN #### [facility] [address] [place] [address] Dr. Sonido Bejarano ATYPICAL LYMPH % Normal [facility] Comment on above: Performed By: #### C BCMAN #### [facility] [address] [place] [address] Dr. Sonido Bejarano BAND # Normal 0.0-0.3 [facility] Comment on above: Performed By: #### C BCMAN #### [facility] [address] [place] [address] Dr. Sonido Bejarano BAND % Normal 0-5 [facility] Comment on above: Performed By: #### C BCMAN #### [facility] [address] [address] [address] Sonido Bejarano BASOM # 0.00 103/ul Normal 0.00-0.10 [facility] Comment on above: Performed By: #### C BCMAN #### [facility] [address] [address] [address] Sonido Bejarano BASOM % 0.0 % Critically low 0.2-2.0 [facility] Comment on above: Performed By: #### C BCMAN #### [facility] [address] [place] [address] Dr. Sonido Bejarano BLAST # Normal [facility] Comment on above: Performed By: #### C BCMAN #### [facility] [address] [place] [address] Dr. Sonido Bejarano BLAST % Normal [facility] Comment on above: Performed By: #### C BCKATHERINE #### [facility] [address] [place] [address] Dr. Sonido Bejarano CORRECTED WBC Normal 4.0-11.0 [facility] Comment on above: Performed By: #### C BCKATHERINE #### [facility] [address] [place] [address] Dr. Sonido Bejarano EOS # 0.08 103/ul Normal 0.00-0.70 [facility] Comment on above: Performed By: #### C BCKATHERINE #### [facility] [address] [place] [address] Dr. Sonido Bejarano EOS% 2.0 % Normal 0.9-7.0 [facility] Comment on above: Performed By: #### C BCKATHERINE #### [facility] [address] [place] [address] Dr. Sonido Bejarano HCT 31.1 % Critically low 42.0-54.0 [facility] Comment on above: Performed By: #### C BCKATHERINE #### [facility] [address] [place] [address] Dr. Sonido Bejarano HGB 8.3 g/dl Critically low 14.0-18.0 [facility] Comment on above: Performed By: #### C RAMILA #### [facility] [address] [address] [address] Sonido Bejarano HYPOCHROMASIA SLIGHT Normal [facility] Comment on above: Performed By: #### C RAMILA #### [facility] [address] [address] [address] Sonido Bejarano LYMPHM # 1.13 103/ul Critically low 1.20-3.80 [facility] Comment on above: Performed By: #### C RAMILA #### [facility] [address] [address] [address] Sonido Bejarano LYMPHM% 27.0 % Normal 20.5-60.0 [facility] Comment on above: Performed By: #### C RAMILA #### [facility] [address] [address] [address] Sonido Bejarano MCH 15.9 pg Critically low 25.9-34.0 [facility] Comment on above: Performed By: #### C RAMILA #### [facility] [address] [address] [address] Sonido Bejarano MCHC 26.7 g/dl Critically low 29.9-35.2 [facility] Comment on above: Performed By: #### C RAMILA #### [facility] [address] [address] [address] Sonido Bejarano MCV 59.5 fL Critically low 80.0-94.0 [facility] Comment on above: Performed By: #### C RAMILA #### [facility] [address] [address] [address] Sonido Bejarano METAMYELOCYTE # Normal [facility] Comment on above: Performed By: #### C RAMILA #### [facility] [address] [address] [address] Sonido Bejarano METAMYELOCYTE % Normal [facility] Comment on above: Performed By: #### C RAMILA #### [facility] [address] [address] [address] Sonido Bejarano MICROCYTOSIS 3+ Normal [facility] Comment on above: Performed By: #### C BCMAN #### [facility] [address] [address] [address] Sonido Bejarano MONOM# 0.55 103/ul Normal 0.30-0.80 [facility] Comment on above: Performed By: #### C RAMILA #### [facility] [address] [address] [address] Sonido Bejarano MONOM% 13.0 % Critically high 1.7-12.0 [facility] Comment on above: Performed By: #### C RAMILA #### [facility] [address] [place] [address] Dr. Sonido Bejarano MPV 9.7 fL Normal 9.5-13.5 [facility] Comment on above: Performed By: #### C RAMILA #### [facility] [address] [place] [address] Dr. Sonido Bejarano MYELOCYTE # Normal [facility] Comment on above: Performed By: #### C RAMILA #### [facility] [address] [place] [address] Dr. Sonido Bejarano MYELOCYTE % Normal [facility] Comment on above: Performed By: #### C RAMILA #### [facility] [address] [place] [address] Dr. Sonido Bejarano NRBC Normal [facility] Comment on above: Performed By: #### C RAMILA #### [facility] [address] [place] [address] Dr. Sonido Bejarano PLT 421 103/ul Normal 150-450 [facility] Comment on above: Performed By: #### C RAMILA #### [facility] [address] [place] [address] Dr. Sonido Bejarano RBC 5.23 106/ul Normal 4.70-6.10 [facility] Comment on above: Performed By: #### C RAMILA #### [facility] [address] [place] [address] Dr. Sonido Bejarano RDW 22.2 % Critically high 11.0-15.0 [facility] Comment on above: Performed By: #### C BCMAN #### [facility] [address] [address] [address] Sonido Bejarano SEG # 2.44 103/ul Normal 1.40-6.50 [facility] Comment on above: Performed By: #### C BCMAN #### [facility] [address] [place] [address] Dr. Sonido Bejarano SEG % 58.0 % Normal 43.0-75.0 [facility] Comment on above: Performed By: #### C BCMAN #### [facility] [address] [place] [address] Dr. Sonido Bejarano WBC 4.2 103/ul Normal 4.0-11.0 [facility] Comment on above: Performed By: #### C BCMAN #### [facility] [address] [place] [address] Dr. Sonido Bejarano CBC AUTO DIFFon 08-21-2022 BASO # 0.0 103/ul Normal 0.0-0.1 [facility] Comment on above: Performed By: #### C BC #### [facility] [address] [place] [address] Dr. Sonido Bejarano Basophils/100 WBC (Bld) 0.6 % Normal 0.2-2.0 [facility] Comment on above: Performed By: #### C BC #### [facility] [address] [place] [address] Dr. Sonido Bejarano EO # 0.1 103/ul Normal 0.0-0.7 [facility] Comment on above: Performed By: #### C BC #### [facility] [address] [place] [address] Dr. Sonido Bejarano Eosinophils/100 WBC (Bld) 1.0 % Normal 0.9-7.0 [facility] Comment on above: Performed By: #### C BC #### [facility] [address] [place] [address] Dr. Sonido Bejarano Erythrocyte distribution width (RBC) [Ratio] 21.9 % Critically high 11.0-15.0 [facility] Comment on above: Result Comment: anis ocytosis 2+ Performed By: #### C BC #### [facility] [address] [place] [address] Dr. Sonido Bejarano Hematocrit (Bld) [Volume fraction] 32.7 % Critically low 42.0-54.0 [facility] Comment on above: Performed By: #### C BC #### [facility] [address] [place] [address] Dr. Sonido Bejarano Hemoglobin (Bld) [Mass/Vol] 8.4 g/dL Critically low 14.0-18.0 [facility] Comment on above: Performed By: #### C BC #### [facility] [address] [place] [address] Dr. Sonido Bejarano IG # 0.01 10e3/ul Normal 0.00-0.03 [facility] Comment on above: Performed By: #### C BC #### [facility] [address] [place] [address] Dr. Sonido Bejarano IG % 0.2 % Normal 0.0-0.5 [facility] Comment on above: Performed By: #### C BC #### [facility] [address] [place] [address] Dr. Sonido Bejarano LYMPH # 1.1 103/ul Critically low 1.2-3.8 [facility] Comment on above: Performed By: #### C BC #### [facility] [address] [place] [address] Dr. Sonido Bejarano Lymphocytes/100 WBC (Bld) 22.3 % Normal 20.5-60.0 [facility] Comment on above: Performed By: #### C BC #### [facility] [address] [place] [address] Dr. Sonido Bejarano MANUAL DIFF REQ NO Normal [facility] Comment on above: Performed By: #### C BC #### [facility] [address] [place] [address] Dr. Sonido Bejarano MCH (RBC) [Entitic mass] 15.3 pg Critically low 25.9-34.0 [facility] Comment on above: Performed By: #### C BC #### [facility] [address] [place] [address] Dr. Sonido Bejarano MCHC (RBC) [Mass/Vol] 25.7 g/dL Critically low 29.9-35.2 [facility] Comment on above: Result Comment: hypo chromasia 2+ Performed By: #### C BC #### [facility] [address] [place] [address] Dr. Sonido Bejarano MCV (RBC) [Entitic vol] 59.6 fL Critically low 80.0-94.0 [facility] Comment on above: Result Comment: micr ocytosis 3+ Performed By: #### C BC #### [facility] [address] [place] [address] Dr. Sonido Bejarano MONO # 0.5 103/ul Normal 0.3-0.8 [facility] Comment on above: Performed By: #### C BC #### [facility] [address] [place] [address] Dr. Sonido Bejarano Monocytes/100 WBC (Bld) 10.8 % Normal 1.7-12.0 [facility] Comment on above: Performed By: #### C BC #### [facility] [address] [place] [address] Dr. Sonido Bejarano NEUT # 3.2 103/ul Normal 1.4-6.5 [facility] Comment on above: Performed By: #### C BC #### [facility] [address] [place] [address] Dr. Sonido Bejarano Neutrophils/100 WBC (Bld) 65.1 % Normal 43.0-75.0 [facility] Comment on above: Performed By: #### C BC #### [facility] [address] [place] [address] Dr. Sonido Bejarano Platelet mean volume (Bld) [Entitic vol] 9.5 fL Normal 9.5-13.5 [facility] Comment on above: Performed By: #### C BC #### [facility] [address] [place] [address] Dr. Sonido Bejarano PLT 415 103/ul Normal 150-450 [facility] Comment on above: Performed By: #### C BC #### [facility] [address] [place] [address] Dr. Sonido Bejarano RBC 5.49 106/ul Normal 4.70-6.10 [facility] Comment on above: Performed By: #### C BC #### [facility] [address] [place] [address] Dr. Sonido Bejarano WBC 5.0 103/ul Normal 4.0-11.0 [facility] Comment on above: Performed By: #### C BC #### [facility] [address] [place] [address] Dr. Sonido Bejarano CBC AUTO DIFFon 08-02-2022 BASO # 0.0 103/ul Normal 0.0-0.1 [facility] Comment on above: Performed By: #### C BC #### [facility] [address] [place] [address] Dr. Sonido Bejarano Basophils/100 WBC (Bld) 0.3 % Normal 0.2-2.0 [facility] Comment on above: Performed By: #### C BC #### [facility] [address] [place] [address] Dr. Sonido Bejarano EO # 0.0 103/ul Normal 0.0-0.7 [facility] Comment on above: Performed By: #### C BC #### [facility] [address] [place] [address] Dr. Sonido Bejarano Eosinophils/100 WBC (Bld) 0.7 % Critically low 0.9-7.0 [facility] Comment on above: Performed By: #### C BC #### [facility] [address] [place] [address] Dr. Sonido Bejarano Erythrocyte distribution width (RBC) [Ratio] 21.9 % Critically high 11.0-15.0 [facility] Comment on above: Performed By: #### C BC #### [facility] [address] [place] [address] Dr. Sonido Bejarano Hematocrit (Bld) [Volume fraction] 30.0 % Critically low 42.0-54.0 [facility] Comment on above: Performed By: #### C BC #### [facility] [address] [address] [address] Sonido Bejarano Hemoglobin (Bld) [Mass/Vol] 7.8 g/dL Critically low 14.0-18.0 [facility] Comment on above: Performed By: #### C BC #### [facility] [address] [address] [address] Sonido Bejarano IG # 0.01 10e3/ul Normal 0.00-0.03 [facility] Comment on above: Performed By: #### C BC #### [facility] [address] [place] [address] Dr. Sonido Bejarano IG % 0.2 % Normal 0.0-0.5 [facility] Comment on above: Performed By: #### C BC #### [facility] [address] [place] [address] Dr. Sonido Bejarano LYMPH # 1.0 103/ul Critically low 1.2-3.8 [facility] Comment on above: Performed By: #### C BC #### [facility] [address] [place] [address] Dr. Sonido Bejarano Lymphocytes/100 WBC (Bld) 18.0 % Critically low 20.5-60.0 [facility] Comment on above: Performed By: #### C BC #### [facility] [address] [place] [address] Dr. Sonido Bejarano MANUAL DIFF REQ NO Normal [facility] Comment on above: Performed By: #### C BC #### [facility] [address] [place] [address] Dr. Sonido Bejarano MCH (RBC) [Entitic mass] 15.9 pg Critically low 25.9-34.0 [facility] Comment on above: Performed By: #### C BC #### [facility] [address] [place] [address] Dr. Sonido Bejarano MCHC (RBC) [Mass/Vol] 26.0 g/dL Critically low 29.9-35.2 [facility] Comment on above: Performed By: #### C BC #### [facility] [address] [address] [address] Sonido Bejarano MCV (RBC) [Entitic vol] 61.2 fL Critically low 80.0-94.0 [facility] Comment on above: Performed By: #### C BC #### [facility] [address] [address] [address] Sonido Bejarano MONO # 0.5 103/ul Normal 0.3-0.8 [facility] Comment on above: Performed By: #### C BC #### [facility] [address] [address] [address] Sonido Bejarano Monocytes/100 WBC (Bld) 8.7 % Normal 1.7-12.0 [facility] Comment on above: Performed By: #### C BC #### [facility] [address] [address] [address] Sonido Bejarano NEUT # 4.1 103/ul Normal 1.4-6.5 [facility] Comment on above: Performed By: #### C BC #### [facility] [address] [address] [address] Sonido Bejarano Neutrophils/100 WBC (Bld) 72.1 % Normal 43.0-75.0 [facility] Comment on above: Performed By: #### C BC #### [facility] [address] [address] [address] Sonido Bejarano Platelet mean volume (Bld) [Entitic vol] 9.3 fL Critically low 9.5-13.5 [facility] Comment on above: Performed By: #### C BC #### [facility] [address] [address] [address] Sonido Bejarano PLT 339 103/ul Normal 150-450 [facility] Comment on above: Performed By: #### C BC #### [facility] [address] [id number] Sonido Bejarano RBC 4.90 106/ul Normal 4.70-6.10 [facility] Comment on above: Performed By: #### C BC #### [facility] [address] [address] [address] Sonido Bejarano WBC 5.7 103/ul Normal 4.0-11.0 [facility] Comment on above: Performed By: #### C BC #### [facility] [address] [place] [address] Dr. Sonido Bejarano CBC AUTO DIFFon 06-17-2022 BASO # 0.0 103/ul Normal 0.0-0.1 [facility] Comment on above: Performed By: #### C BC #### [facility] [address] [place] [address] Dr. Sonido Bejarano Basophils/100 WBC (Bld) 0.7 % Normal 0.2-2.0 [facility] Comment on above: Performed By: #### C BC #### [facility] [address] [place] [address] Dr. Sonido Bejarano EO # 0.3 103/ul Normal 0.0-0.7 [facility] Comment on above: Performed By: #### C BC #### [facility] [address] [place] [address] Dr. Sonido Bejarano Eosinophils/100 WBC (Bld) 5.3 % Normal 0.9-7.0 [facility] Comment on above: Performed By: #### C BC #### [facility] [address] [place] [address] Dr. Sonido Bejarano Erythrocyte distribution width (RBC) [Ratio] 22.1 % Critically high 11.0-15.0 [facility] Comment on above: Performed By: #### C BC #### [facility] [address] [place] [address] Dr. Sonido Bejarano Hematocrit (Bld) [Volume fraction] 32.2 % Critically low 42.0-54.0 [facility] Comment on above: Performed By: #### C BC #### [facility] [address] [place] [address] Dr. Sonido Bejarano Hemoglobin (Bld) [Mass/Vol] 8.2 g/dL Critically low 14.0-18.0 [facility] Comment on above: Performed By: #### C BC #### [facility] [address] [address] [address] Sonido Bejarano IG # 0.01 10e3/ul Normal 0.00-0.03 [facility] Comment on above: Performed By: #### C BC #### [facility] [address] [place] [address] Dr. Sonido Bejarano IG % 0.2 % Normal 0.0-0.5 [facility] Comment on above: Performed By: #### C BC #### [facility] [address] [place] [address] Dr. Sonido Bejarano LYMPH # 1.1 103/ul Critically low 1.2-3.8 [facility] Comment on above: Performed By: #### C BC #### [facility] [address] [place] [address] Dr. Sonido Bejarano Lymphocytes/100 WBC (Bld) 19.3 % Critically low 20.5-60.0 [facility] Comment on above: Performed By: #### C BC #### [facility] [address] [place] [address] Dr. Sonido Bejarano MANUAL DIFF REQ NO Normal [facility] Comment on above: Performed By: #### C BC #### [facility] [address] [place] [address] Dr. Sonido Bejarano MCH (RBC) [Entitic mass] 15.8 pg Critically low 25.9-34.0 [facility] Comment on above: Performed By: #### C BC #### [facility] [address] [place] [address] Dr. Sonido Bejarano MCHC (RBC) [Mass/Vol] 25.5 g/dL Critically low 29.9-35.2 [facility] Comment on above: Performed By: #### C BC #### [facility] [address] [place] [address] Dr. Sonido Bejarano MCV (RBC) [Entitic vol] 62.0 fL Critically low 80.0-94.0 [facility] Comment on above: Performed By: #### C BC #### [facility] [address] [address] [address] Sonido Bejarano MONO # 0.9 103/ul Critically high 0.3-0.8 [facility] Comment on above: Performed By: #### C BC #### [facility] [address] [address] [address] Sonido Bejarano Monocytes/100 WBC (Bld) 16.0 % Critically high 1.7-12.0 [facility] Comment on above: Performed By: #### C BC #### [facility] [address] [address] [address] Sonido Bejarano NEUT # 3.2 103/ul Normal 1.4-6.5 [facility] Comment on above: Performed By: #### C BC #### [facility] [address] [place] [address] Dr. Sonido Bejarano Neutrophils/100 WBC (Bld) 58.5 % Normal 43.0-75.0 [facility] Comment on above: Performed By: #### C BC #### [facility] [address] [place] [address] Dr. Sonido Bejarano Platelet mean volume (Bld) [Entitic vol] 9.3 fL Critically low 9.5-13.5 [facility] Comment on above: Performed By: #### C BC #### [facility] [address] [place] [address] Dr. Sonido Bejarano PLT 335 103/ul Normal 150-450 [facility] Comment on above: Performed By: #### C BC #### [facility] [address] [place] [address] Dr. Sonido Bejarano RBC 5.19 106/ul Normal 4.70-6.10 [facility] Comment on above: Performed By: #### C BC #### [facility] [address] [place] [address] Dr. Sonido Bejarano WBC 5.5 103/ul Normal 4.0-11.0 [facility] Comment on above: Performed By: #### C BC #### [facility] [address] [place], [place] [id number] Dr. Sonido Bejarano CBC AUTO DIFFon 05-15-2022 BASO # 0.0 103/ul Normal 0.0-0.1 [facility] Comment on above: Performed By: #### C BC #### [facility] [address] [place] [address] Dr. Sonido Bejarano Basophils/100 WBC (Bld) 0.8 % Normal 0.2-2.0 [facility] Comment on above: Performed By: #### C BC #### [facility] [address] [place] [address] Dr. Sonido Bejarano EO # 0.1 103/ul Normal 0.0-0.7 [facility] Comment on above: Performed By: #### C BC #### [facility] [address] [place] [address] Dr. Sonido Bejarano Eosinophils/100 WBC (Bld) 2.3 % Normal 0.9-7.0 [facility] Comment on above: Performed By: #### C BC #### [facility] [address] [place] [address] Dr. Sonido Bejarano Erythrocyte distribution width (RBC) [Ratio] 21.5 % Critically high 11.0-15.0 [facility] Comment on above: Performed By: #### C BC #### [facility] [address] [place] [address] Dr. Sonido Bejarano Hematocrit (Bld) [Volume fraction] 30.5 % Critically low 42.0-54.0 [facility] Comment on above: Performed By: #### C BC #### [facility] [address] [place] [address] Dr. Sonido Bejarano Hemoglobin (Bld) [Mass/Vol] 7.9 g/dL Critically low 14.0-18.0 [facility] Comment on above: Performed By: #### C BC #### [facility] [address] [place] [address] Dr. Sonido Bejarano IG # 0.01 10e3/ul Normal 0.00-0.03 [facility] Comment on above: Performed By: #### C BC #### [facility] [address] [place] [address] Dr. Sonido Bejarano IG % 0.2 % Normal 0.0-0.5 [facility] Comment on above: Performed By: #### C BC #### [facility] [address] [place] [address] Dr. Sonido Bejarano LYMPH # 1.3 103/ul Normal 1.2-3.8 [facility] Comment on above: Performed By: #### C BC #### [facility] [address] [place] [address] Dr. Sonido Bejarano Lymphocytes/100 WBC (Bld) 24.6 % Normal 20.5-60.0 [facility] Comment on above: Performed By: #### C BC #### [facility] [address] [place] [address] Dr. Sonido Bejarano MANUAL DIFF REQ NO Normal [facility] Comment on above: Performed By: #### C BC #### [facility] [address] [place] [address] Dr. Sonido Bejarano MCH (RBC) [Entitic mass] 15.6 pg Critically low 25.9-34.0 [facility] Comment on above: Performed By: #### C BC #### [facility] [address] [place] [address] Dr. Sonido Bejarano MCHC (RBC) [Mass/Vol] 25.9 g/dL Critically low 29.9-35.2 [facility] Comment on above: Performed By: #### C BC #### [facility] [address] [place] [address] Dr. Sonido Bejarano MCV (RBC) [Entitic vol] 60.4 fL Critically low 80.0-94.0 [facility] Comment on above: Performed By: #### C BC #### [facility] [address] [place] [address] Dr. Sonido Bejarano MONO # 0.6 103/ul Normal 0.3-0.8 [facility] Comment on above: Performed By: #### C BC #### [facility] [address] [place] [address] Dr. Sonido Bejarano Monocytes/100 WBC (Bld) 12.1 % Critically high 1.7-12.0 [facility] Comment on above: Performed By: #### C BC #### [facility] [address] [place] [address] Dr. Sonido Bejarano NEUT # 3.1 103/ul Normal 1.4-6.5 [facility] Comment on above: Performed By: #### C BC #### [facility] [address] [place] [address] Dr. Sonido Bejarano Neutrophils/100 WBC (Bld) 60.0 % Normal 43.0-75.0 [facility] Comment on above: Performed By: #### C BC #### [facility] [address] [place] [address] Dr. Sonido Bejarano Platelet mean volume (Bld) [Entitic vol] 9.6 fL Normal 9.5-13.5 [facility] Comment on above: Performed By: #### C BC #### [facility] [address] [place] [address] Dr. Sonido Bejarano PLT 399 103/ul Normal 150-450 [facility] Comment on above: Performed By: #### C BC #### [facility] [address] [place] [address] Dr. Sonido Bejarano RBC 5.05 106/ul Normal 4.70-6.10 [facility] Comment on above: Performed By: #### C BC #### [facility] [address] [place] [address] Dr. Sonido Bejarano WBC 5.1 103/ul Normal 4.0-11.0 [facility] Comment on above: Performed By: #### C BC #### [facility] [address] [place] [address] Dr. Sonido Bejarano CBC AUTO DIFFon 04-15-2022 BASO # 0.0 103/ul Normal 0.0-0.1 [facility] Comment on above: Performed By: #### C BC #### [facility] [address] [place] [address] Dr. Sonido Bejarano Basophils/100 WBC (Bld) 0.3 % Normal 0.2-2.0 [facility] Comment on above: Performed By: #### C BC #### [facility] [address] [place] [address] Dr. Sonido Bejarano EO # 0.1 103/ul Normal 0.0-0.7 [facility] Comment on above: Performed By: #### C BC #### [facility] [address] [place] [address] Dr. Sonido Bejarano Eosinophils/100 WBC (Bld) 1.0 % Normal 0.9-7.0 [facility] Comment on above: Performed By: #### C BC #### [facility] [address] [place] [address] Dr. Sonido Bejarano Erythrocyte distribution width (RBC) [Ratio] 21.2 % Critically high 11.0-15.0 [facility] Comment on above: Performed By: #### C BC #### [facility] [address] [place] [address] Dr. Sonido Bejarano Hematocrit (Bld) [Volume fraction] 32.2 % Critically low 42.0-54.0 [facility] Comment on above: Performed By: #### C BC #### [facility] [address] [place] [address] Dr. Sonido Bejarano Hemoglobin (Bld) [Mass/Vol] 8.3 g/dL Critically low 14.0-18.0 [facility] Comment on above: Performed By: #### C BC #### [facility] [address] [place] [address] Dr. Sonido Bejarano IG # 0.03 10e3/ul Normal 0.00-0.03 [facility] Comment on above: Performed By: #### C BC #### [facility] [address] [place] [address] Dr. Sonido Bejarano IG % 0.4 % Normal 0.0-0.5 [facility] Comment on above: Performed By: #### C BC #### [facility] [address] [place] [address] Dr. Sonido Bejarano LYMPH # 1.0 103/ul Critically low 1.2-3.8 [facility] Comment on above: Performed By: #### C BC #### [facility] [address] [place] [address] Dr. Sonido Bejarano Lymphocytes/100 WBC (Bld) 15.2 % Critically low 20.5-60.0 [facility] Comment on above: Performed By: #### C BC #### [facility] [address] [place] [address] Dr. Sonido Bejarano MANUAL DIFF REQ NO Normal [facility] Comment on above: Performed By: #### C BC #### [facility] [address] [place] [address] Dr. Sonido Bejarano MCH (RBC) [Entitic mass] 16.1 pg Critically low 25.9-34.0 [facility] Comment on above: Performed By: #### C BC #### [facility] [address] [place] [address] Dr. Sonido Bejarano MCHC (RBC) [Mass/Vol] 25.8 g/dL Critically low 29.9-35.2 [facility] Comment on above: Performed By: #### C BC #### [facility] [address] [place] [address] Dr. Sonido Bejarano MCV (RBC) [Entitic vol] 62.4 fL Critically low 80.0-94.0 [facility] Comment on above: Performed By: #### C BC #### [facility] [address] [place] [address] Dr. Sonido Bejarano MONO # 0.6 103/ul Normal 0.3-0.8 [facility] Comment on above: Performed By: #### C BC #### [facility] [address] [place] [address] Dr. Sonido Bejarano Monocytes/100 WBC (Bld) 8.5 % Normal 1.7-12.0 [facility] Comment on above: Performed By: #### C BC #### [facility] [address] [place] [address] Dr. Sonido Bejarano NEUT # 5.0 103/ul Normal 1.4-6.5 [facility] Comment on above: Performed By: #### C BC #### [facility] [address] [place] [address] Dr. Sonido Bejarano Neutrophils/100 WBC (Bld) 74.6 % Normal 43.0-75.0 [facility] Comment on above: Performed By: #### C BC #### [facility] [address] [place] [address] Dr. Sonido Bejarano Platelet mean volume (Bld) [Entitic vol] 9.9 fL Normal 9.5-13.5 [facility] Comment on above: Performed By: #### C BC #### [facility] [address] [place] [address] Dr. Sonido Bejarano PLT 355 103/ul Normal 150-450 [facility] Comment on above: Performed By: #### C BC #### [facility] [address] [place] [address] Dr. Sonido Bejarano RBC 5.16 106/ul Normal 4.70-6.10 [facility] Comment on above: Result Comment: 1+ o valocytes slight hypochromic slight microchromic Performed By: #### C BC #### [facility] [address] [place] [address] Dr. Sonido Bejarano WBC 6.7 103/ul Normal 4.0-11.0 [facility] Comment on above: Performed By: #### C BC #### [facility] [address] [place] [address] Dr. Sonido Bejarano CNOVon 03-28-2022 CNOV Office Visit ([facility] ) RJ COLBERT ([id number]) 2000 Tima Joseph Date Time Provider Department 03/28/22 11:20 AM ARNOLD GENAO [facility] During your visit [...] the office on 11/16/21 with Cristal Nava DIRECT MAIL MARKETER for follow up visit after he underwent an ablation of internal hemorrhoids in 2 columns on 10/17/21. PAST MEDICAL HISTORY Diagnosis Date - Attention deficit hyperactivity disorder - MR (mental retardation) - Schizophrenia (HCC) - Tic disorder PAST SURGICAL HISTORY Procedure Laterality Date - ABDOMINAL SURGERY HX - HEMORRHOID;BAND LIGAT, SNJERSON/MUL 07/12/2021 Current Outpatient Medications Medication Sig Dispense [...] exam Anorectal: External exam reveals: see below Ammonia Refrigeration Worker present: yes Assessment Assessment and Plan: Rj [...] Assessed Reason for Visit: Established Patient Follow-Up [10835427] Rectal Bleeding [202] Primary Visit Diagnosis:Hematochezia [K92.1] [...] (more content not included)... Normal [facility] 03-28-2022 CNPN Telephone ([facility]) RJ COLBERT ([id number]) 2000 Tima Reyez* Date Time Provider Department 03/28/22 ARNOLD GENAO [facility] During your visit today, we recorded the following information about you: Essie Pickard Pss 03/28/2022 1:41 PM Signed Patient called and left message regarding prescription from today's visit return call to [phone] Charley Mcclelland RN 03/28/2022 2:49 PM Signed [...] Fully Assessed Reason for Visit: Patient Question [3007] Prescriptions as of 03/28/2022 - acetaminophen (TYLENOL) [...] CHARLEY MCCLELLAND on 03/28/22 [facility] Telephone ([id number]) RJ COLBERT ([id number]) 2000 Tima Reyez* Date Time Provider Department 03/28/22 ARNOLD GENAO [id number] During your visit today, we recorded the following information about you: Sara Rose ADM 03/28/2022 3:45 PM Signed Pharmacy, [facility], phone , any pharmacist to clarify about carbonate? CALM is intermediate able to order as food item? Please call to discuss. Charley Mcclelland RN 03/28/2022 4:14 PM Signed Spoke with the pharmacist and she states that she does not provide food items. She will speak with the nurse at the intermediate. Allergies As of Date: 03/28/2022 (No Known [...] Encounter Status:Closed by CHARLEY MCCLELLAND on 03/28/22 [facility] CNOVon 11-16-2021 CNOV Office Visit ([facility] ) RJ [id number]) 2000 Tima Leigh Co* Date Time Provider Department 11/16/21 1:30 PM CRISTAL NAVA During your visit today, we recorded the following information about you: Pulse Blood pressure Weight Height 60/minute 136/80 96.2 kg 1.803 m Cristal Nava APRN.CNP 11/16/2021 12:59 PM Signed COLORECTAL SURGERY November [...] results with patient and POA. Cristal Nava APRN.[facility] Colorectal Surgery Referring Provider: ARNOLD GENAO [[id number]] Allergies As of Date: 11/16/2021 (No Known Allergies) Date Reviewed: 11/16/2021 Reviewed by: Cristal Nava APRN.[facility] - Fully Assessed Reason for Visit: [...] 07/10/2021 Hemorrho (more content not included)... Normal [facility] ANES POSTPROC EVALon 021 ANES POSTPROC EVAL HNO ID: [id number] Author: Michael Martínez MD Service: Anesthesiology Author Type: Anesthesiologist Type: Anesthesia Postprocedure Evaluation Filed: 10/17/2021 10:23 AM Note Text: POST ANESTHESIA EVALUATION NOTE : 2000 Procedure Summary Date: 10/17/21 Room / Location: [address] Anesthesia Start: 841 Anesthesia Stop: 913 Procedure: HEMORRHOIDECTOMY EXTERNAL > 2 COLUMNS/GROUPS (N/A Anus) Diagnosis: Hemorrhoids, unspecified hemorrhoid type (Hemorrhoids, unspecified hemorrhoid type [K64.9]) Surgeons: Arnold Genao MD Responsible Provider: Michael Martínez MD Anesthesia Type: general ASA Status: 2 Anesthesia Type: general Airway Type: LMA Last Vitals Vitals Value Taken Time BP 129/88 10/17/21954 Temp 36.3 ?C (97.3 ?F) 10/17/21 09 Pulse 84 10/17/21954 Resp 16 10/17/21 09 SpO2 100 % [...] October 17, 2021 TIME: 10:23 AM CSN: [id number] [facility] ANES PRE-OPon 10-17-2021 ANES PRE-OP HNO ID: [id number] Author: Michael Martínez MD Service: Anesthesiology Author Type: Anesthesiologist Type: Anesthesia Preprocedure Evaluation Filed: 10/17/2021 8:32 AM Note Text: ANESTHESIOLOGY DAY OF SURGERY NOTE : 2000 Procedure Information Date/Time: 10/17/21729 Procedure: HEMORRHOIDECTOMY EXTERNAL > 2 COLUMNS/GROUPS (N/A ) Location: [address] Surgeons: Arnold Genao MD Estimated body [...] obtained phone consent from patient's POA, Soren Miriammalik. I placed a phone call to Mr. [...] October 17, 2021 TIME: 8:27 AM CSN: [id number] [facility] BRIEF OP NOTon 10-17-2021 BRIEF OP NOT HNO ID: [id number] Author: Jared Rowe MD Service: Colorectal Author Type: Resident Type: Brief Op Note Filed: 10/17/2021 9:15 AM Note Text: BRIEF OPERATIVE / PROCEDURE NOTE LOG ID: [id number] SURGERY/PROCEDURE DATE: 10/17/2021 INCISION/PROCEDURE START TIME: 8:55 AM INCISION CLOSE/PROCEDURE END TIME: 9:02 AM SURGEON(S)/PROCEDURALIS T(S) AND PARKING LOT SUPERVISOR(S): Surgeon(s) and Role: * Arnold Genao MD [...] DATE: October 17, 2021 TIME: 9:13 AM [facility] HISTORY PHYSICALon HISTORY PHYSICAL HNO ID: [id number] Author: Jared Rowe MD Service: Colorectal Author [...] October 17, 2021 TIME: 7:22 AM Normal [facility] OPERATIVE NOon 10-17-2021 OPERATIVE NO HNO ID: [id number] Author: Arnold Genao MD Service: Colorectal Author Type: Physician Type: Operative Report Filed: 10/30/2021 11:21 AM Note Text: [facility] - Operative Report RJ COLBERT : 2000 AGE: 21. SEX: M PATIENT TYPE: A HOSP [facility]: [facility] LOCATION: [facility] ATTENDING PHYSICIAN: Arnold Genao M.D. CSN NUMBER: [id number] DATE OF SURGERY/PROCEDURE: 10/17/2021 INCISION/PROCEDURE START TIME: 8:55 AM INCISION CLOSE/PROCEDURE END TIME: 9:02 AM PREOPERATIVE DIAGNOSIS: Hemorrhoids. POSTOPERATIVE DIAGNOSIS: Hemorrhoids. SURGEON: Arnold Genao M.D. PARKING LOT SUPERVISOR: Jared. SURGERY/PROCEDURE: Ablation. ANESTHESIA: General ESTIMATED BLOOD [...] was overall very minor. Arnold Genao M.D. BC:[id number] /[id number] [facility] HISTORY PHYSICALon HISTORY PHYSICAL HNO ID: [id number] Author: Zahira Heath APRN.COUNT[facility] DEMONSTRATOR Service: ? Author Type: Nurse Practitioner Type: [...] PAT today with a caregiver from his intermediate. States he is having around 5 bowel [...] fevers. Neuro: No history of TIA's, stroke, EYEGLASS FITTER tumor, impaired sensorium, hemiplegia, paraplegia or quadraplegia. No neurological symptoms or problems. Respiratory: No history of current cough or dyspnea, or pneumonia in the past 6 weeks. No history of respiratory/pulmonary symptoms or problems. Cardiovascular: No history of HTN requiring medication, no history of angina, CHF, [place], cardiac surgery or stents. Denies rest pain, [...] skills. Pulse (more content not included)... Normal [facility] CNOVon 08-31-2021 CNOV Office Visit ([facility] ) RJ COLBERT ([id number]) 2000 Tima Joseph Date Time Provider Department 08/31/21 1:30 PM [facility] your visit today, we recorded the [...] Anorectal: External exam reveals : see below Ammonia Refrigeration Worker present: yes Assessment Assessment and Plan: Rj Colbert is a 21 year old male who is doing relatively well after his recent rubber band ligation. He still has some rectal bleeding and it is difficult to assess the exact amount. If the bleeding persists we will consider internal hemorrhoidectomy. Arnold Genao MD Colorectal Surgery Referring Provider: ELHAM VAN [[id number]] Allergies As of Date: 08/31/2021 (No Known [...] Encounter Status:Closed by ARNOLD GENAO on 09/02/21 [facility] OPERATIVE NOon 07-17-2021 OPERATIVE NO HNO ID: [id number] Author: Arnold Genao MD Service: Colorectal Author Type: Physician Type: Operative Report Filed: 08/01/2021 1:12 PM Note Text: [facility] - Operative Report RJ COLBERT : 2000 AGE: 21. SEX: M PATIENT TYPE: A HOSP SVC: [facility] LOCATION: [facility] ATTENDING PHYSICIAN: Arnold Genao M.D. CSN NUMBER: [id number] DATE OF SURGERY/PROCEDURE: 07/12/2021 INCISION/PROCEDURE START TIME: 10:55 AM INCISION CLOSE/PROCEDURE END TIME: 10:58 AM PREOPERATIVE DIAGNOSIS: Rectal bleeding. POSTOPERATIVE DIAGNOSIS: Rectal bleeding. SURGEON: Arnold Genao M.D. PARKING LOT SUPERVISOR: None. SURGERY/PROCEDURE: Rubber-band ligation hemorrhoidectomy. ANESTHESIA: General [...] room in good condition. Arnold Genao M.D. BC:[id number] /[id number] [facility] 07-13-2021 [facility] Telephone ([facility]) RJ COLBERT ([id number]) 2000 Tima Reyez* Date Time Provider Department 07/13/21 ARNOLD GENAO [facility] During your visit today, we recorded the following information about you: Essie Pickard Pss 07/13/2021 3:27 PM Signed Patient's caregiver called with post operative hemorrhoidectomy questions and concerns of bands falling off return call to [phone] Sara Rose [facility] 07/16/2021 12:22 PM Signed Kasia, caregiver called. Patient banding undone. Called last Friday, waiting to talk to nurse about care. [phone] Nona Banks RN 07/16/2021 4:56 PM Signed [...] Status:Closed by NONA BANKS on 07/16/21 Normal [facility] ANES POSTPROC EVALon 021 ANES POSTPROC EVAL HNO ID: [id number] Author: Jared Arriaga MD Service: Anesthesiology Author Type: Anesthesiologist Type: Anesthesia Postprocedure Evaluation Filed: 07/12/2021 12:05 PM Note Text: POST ANESTHESIA EVALUATION NOTE : 2000 Procedure Summary Date: 07/12/21 Room / Location: [address] Anesthesia Start: 1044 Anesthesia Stop: 1110 [...] July 12, 2021 TIME: 12:05 PM CSN: [id number] [facility] ANES PRE-OPon 07-12-2021 ANES PRE-OP HNO ID: [id number] Author: Jared Arriaga MD Service: Anesthesiology Author [...] July 12, 2021 TIME: 9:18 AM CSN: [id number] [facility] HISTORY PHYSICALon HISTORY PHYSICAL HNO ID: [id number] Author: Arnold Genao MD Service: Colorectal Author [...] DATE: July 12, 2021 TIME: 10:39 AM [facility] HISTORY PHYSICALon HISTORY PHYSICAL HNO ID: [id number] Author: Zahira Ivy PA-C Service: ? Author Type: Physician Planner Type: HANDP Filed: 07/10/2021 2:28 PM Note [...] PAT today with a caregiver from his intermediate. States he is having around 5 bowel [...] fevers. Neuro: No history of TIA's, stroke, EYEGLASS FITTER tumor, impaired sensorium, hemiplegia, paraplegia or quadraplegia. No neurological symptoms or problems. + MR / DD Respiratory: No history of current cough or dyspnea, or pneumonia in the past 6 weeks. No history of respiratory/pulmonary symptoms or problems. Cardiovascular: No history of HTN requiring medication, no history of angina, CHF, [place], cardiac surgery or stents. Denies rest pain, [...] found for: (more content not included)... Normal [facility] Lisa 07-05-2021 [facility] Telephone ([id number]) RJ COLBERT ([id number]) 2000 M Date Time Provider Department 07/05/21 ARNOLD GENAO [id number] During your visit today, we recorded the following information about you: Sara Rose ADM 07/05/2021 3:26 PM Signed Kasia Nurse Caramel Cutter Helper at intermediate where patient resides called to discuss procedure information and date. Call to discuss [phone] Sara Rose ADM 07/06/2021 11:12 AM Signed Kasia nurse aware of 07/12 procedure date. Would like the nurse to call to advise any prep instructions other than fasting after midnight. Call Nurse Kasia mgr [phone] Cristal Nava APRN.[facility] 07/06/2021 12:27 PM Signed Call returned. Reviewed NPO after midnight and scheduled PACCs appointment. Allergies As of Date: 07/05/2021 (No Known Allergies) Date Reviewed: 06/29/2021 Reviewed by: Arnold Genao MD - Fully Assessed Reason for Visit: procedure info [Other] Cmt: discuss plan Primary Visit Diagnosis:Hemorrhoids, internal, with bleeding [K64.8] Order(s):VIRTUAL CONSULT TO PACC [[id number]] Order #: [id number]: 1 FUTURE Prescriptions as of 07/06/2021 - [...] Encounter Status:Closed by CRISTAL NAVA on 07/06/21 [facility] CNOVon 06-29-2021 CNOV Office Visit ([facility] ) RJ COLBERT ([id number]) 2000 M Date Time Provider Department 06/29/21 [...] clinic today with a caregiver from his intermediate. They relate that he is having around [...] (222 lb 4.8 oz) BMI 31.90 kg/m? 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 Our plan is to perform an EUA and rubber band ligation of internal hemorrhoids at the [facility]. Medical Decision Making: Arnold Genao MD Colorectal Surgery Referring Provider: ELHAM VAN [[id number]] Allergies As of Date: 06/29/2021 (No Known [...] Encounter Status:Closed by ARNOLD GENAO on 06/29/21 [facility] RJ COLBERT ([id number]) 2000 M Date Time Provider Department 05/22/21 ARNOLD GENAO [facility] During your visit today, we recorded the following information about you: Tamiko Sweeney 05/22/2021 3:28 PM Signed Ph. [phone] Alivia, who works for [employer], was transferred to Dr. Van's [...] Genao - Fully Assessed Reason for Visit: Technical Coordinator - Other [3798] Cmt: appointment Prescriptions as of 05/23/2021 - [...] Status:Closed by NONA BANKS on 05/23/21 Normal [facility] Coding Summary.on 05-01-2018 Coding Summary. CODING DATE: 018 FINAL [facility] STATUS: Home (Routine DC) PAYOR: [...] PROC EAPG STAT DESCRIPTION DOCTOR NAME DATE 48487 0149 Colonoscopy, flexible; Colin Shirley MD 04/17/2018 with biopsy, single or multiple 74 Discontinued [facility] ([facility] Procedure After Administration of Anesthe 95602 Anesthesia for lower Colin Shirley MD 04/17/2018 intestinal endoscopic procedures, endoscope introduced distal to duodenum; not otherwise specified NOTE: The code number assigned matches the documented diagnosis and / or procedure in the patient's chart. However, the narrative phrase printed from the coding software may appear abbreviated, or result in slightly different terminology. Coded By: Sary Little Date Saved: 05/01/2018 08:02 am Normal [facility] Coding Summary. CODING DATE: FINAL [facility] STATUS: Home (Routine DC) PAYOR: [...] PROC EAPG STAT DESCRIPTION DOCTOR NAME DATE 39285 0149 Colonoscopy, flexible; Colin Shirley MD 04/17/2018 with biopsy, single or multiple 74 Discontinued [facility] Procedure After Administration of Anesthe 10757 Anesthesia for lower Colin Shirley MD 04/17/2018 intestinal endoscopic procedures, endoscope introduced distal to duodenum; not otherwise specified NOTE: The code number assigned matches the documented diagnosis and / or procedure in the patient's chart. However, the narrative phrase printed from the coding software may appear abbreviated, or result in slightly different terminology. Coded By: Sary Little Date Saved: 04/23/2018 11:46 am Normal [facility] Progress Note-Physicianon Progress Note-Physician Patient: RJ COLBERT [...] Cardiovascular: Regular rhythm. Neurologic: Alert, Oriented. Plan [place] [employer] Anesthesiologists (ASA) physical status classification: Class II. Anesthetic Preoperative Plan Anesthesia: General. . Anesthetic plan, risks, benefits, and alternatives discussed with the patient and/or family. Communication: face to face with (patient 5 minutes, Patient educated on smoking cesstation). [facility] Comment on above: Result Comment: Elec tronically Signed By: Quincy Ojeda Jr, DO\.karen\Date and Time Signed: 04/28/18 08:15 EDT Main OR Intraoperative Recor don 04-20-2018 Main OR Intraoperative Record IntraOp Document Type FT Summary Primary Physician: Colin Shirley MD Finalized Date/Time: 04/20/18 09:38:35 Pt. Name: FILEMON NUNUMARGARET /Sex: 2000 Male Med Rec #: [id number] Physician: Colin Shirley MD Financial #: [id number] Pt. Type: O Room/Bed: / Admit/Disch: 04/17/18 09:21:54 - 04/17/18 23:59:59 Institution: Case Times FT Entry 1 Patient Times In Room 04/17/18 13:14:00 Out Room 04/17/18 13:32:00 Procedure Times Start 04/17/18 13:18:00 Stop 04/17/18 13:29:00 Anesthesia Times Start 04/17/18 13:14:00 Stop 04/17/18 13:32:00 Last Modified By: Addie Oreilly CST 04/17/18 13:32:23 General Comments: 04/20/2018 Chart opened to review and send charges Marika Pineda [employer]CH[employer] Case Attendance FT Entry 1 Entry 2 Entry 3 Case Attendee Casper GAUTAM, Colin Rene RN, Tori Felix CST Role Performed Surgeon - Primary Cork Grinder - Primary Scrub - Primary Time In 04/17/18 13:14:00 04/17/18 13:14:00 04/17/18 13:14:00 Time Out 04/17/18 13:32:00 04/17/18 13:32:00 04/17/18 13:32:00 Procedure COLONOSCOPY(.) COLONOSCOPY(.) COLONOSCOPY(.) Comments Last Modified By: Anju RN, Ashlee Rene RN, Ashlee Jeffers RN 04/17/18 13:32:29 04/17/18 13:32:29 04/17/18 13:32:29 Entry 4 Entry 5 Entry 6 Case Attendee Williamson Zenaida Joshi Carly C Tech, Amy C Role Performed Scrub - Other Scrub - Other Anesthesiologist Planner Time In 04/17/18 13:14:00 04/17/18 13:14:00 04/17/18 13:14:00 Time Out 04/17/18 13:32:00 04/17/18 13:32:00 04/17/18 13:32:00 Procedure COLONOSCOPY(.) COLONOSCOPY(.) COLONOSCOPY(.) Comments ORIENTING help in room Dr. Pineda supervising Last Modified By: Anju RTEVINO, Ashlee Rene RN, Ashlee Jeffers RN 04/17/18 [...] Brown CAA, Carly C, Rice CST, Molly, [facility] Magi Hammond Miles, Kirstyn K Time Out [...] and tissue Entry 1 Skin Integrity Intact, Hoover, Warm, and Skin Abnormality No Dry Outcomes [...] RN Patient Status Stable Skin. Condition Intact, Hoover, Warm, and Dry Airway Maintenance Oxygen in Use? No Airway Device N/A Outcomes Met? Yes Last Modified By: Ashlee Rene RN 04/17/18 07:23:58 Post-Care Text: The patient is free from signs and symptoms of injury related to transfer/transport General Comments: REPORT GIVEN TO SALESPERSON BURIAL NEEDS/ AW hammer operator Administration FT Pre-Care Text: Verifies allergies, administers prescribed medications and solutions, administers prescribed antibiotic therapy and immunizing agents as ordered, evaluates response to medications Administers prescribed medications and solutions Entry 1 Expiration Date Yes Outcomes Met? Yes Verified Last Modified By: Ashlee Rene RN 04/17/18 07:24:05 Post-Care Text: The patient received appropriate medication(s) safely administered during the perioperative period For [place] please see scanned medication reconcilliation form for [...] 13:32 Addie Oreilly CST 04/20/18 09:38 Normal [facility] History and Physicalon 04-17 History and Physical Date: 03/10/2018 2:15 PMPatient Name: Rj ColbertAccount #: [id number]: MaleDOB (age): 2000 (17)Provider: Annie Benton Complaint: Change in Bowel habits Blood in StoolHistory of Present Illness:17 years old -[place] male with multiple psychiatric problems, lives in a intermediate, referred to me to be evaluatedfor rectal [...] urgency, stool incontinence, stomachPrinted on 04/10/2018 Rj Filemon, [id number], 2000 Page 1 of 4Printed on 04/10/2018 [place], [id number], 1998cramps, straining. Denies abdominal pain, abdominal swelling, [...] up blood.Vital Signs:BP(mmHg)Pulse(ppm )Rhythm Weight (lbs/oz) Resp/min Hegj576/68 82 Regular 191 / 12 98.3 (F)Physical [...] hemorrhageConstipationP brian: Colonoscopy will be performed at [facility] .Printed on 04/10/2018 Rj Colbert [id number], 2000 Page 2 of 4Printed on 04/10/2018 Rj Colbert [id number], 2000Risk & Medical Necessity: Diagnosis and management options are Extensive. The amount of data reviewedand/or ordered is Moderate. The level of risk is Moderate.Colin Shirley MD Rj Colbert [id number], 2000 Page 3 of 4Printed on 04/10/2018 Brittaney Coto03, 1998Printed on 04/10/2018 Rj Colbert, [id number], 2000 Page 4 of 4Printed on 04/10/2018 Rj Colbert, [id number], 1998no change [facility] Comment on above: Result Comment: Elec tronically Signed By: Colin Shirley MD\.br\Date and Time Signed: 04/17/18 13:15 EDT Inpatient Patient Summaryon 04-17-2018 In[facility] Inst[facility] INFORMATION Name: RJ COLBERT PHYSICIANS Admitting Physician: Ronnell Shirley MDttending Physician: Colin Shirley MD PCP: Murphy WEISS MD Diagnosis: Rectal prolapse Comment: PATIENT EDUCATION INFORMATIONInstructions :Medication Leaflets:Follow up:With: Address: When: Colin Shirley [facility], [address] [place], [place] [id number] [facility] (1) Within 1 to 2 weeks MEDICATION LISTComment: [facility] System Main OR PACU I Recordon 03-28 Main OR PACU I Record PACU Phase I Document Type FT Summary Primary Physician: Colin Shirley MD Finalized Date/Time: 04/17/18 14:14:33 Pt. Name: RJ COLBERT /Sex: 2000 Male Med Rec #: [id number] Physician: Colin Shirley MD Financial #: [id number] Pt. Type: O Room/Bed: / Admit/Disch: 04/17/18 [...] Signed By: Essie Guzman RN 04/17/18 14:14 [facility] Main OR Preoperative Recordo n 04-17-2018 Main OR Preoperative Record Holding Area Document Type FT Summary Primary Physician: Colin Shirley MD Finalized Date/Time: 04/17/18 09:56:12 Pt. Name: RJ COLBERT /Sex: 2000 Male Med Rec #: [id number] Physician: Colin Shirley MD Financial #: [id number] Pt. Type: O Room/Bed: / Admit/Disch: 04/17/18 [...] By: Viki James RN 04/17/18 09:56 Normal [facility] Patient Education - Texton 0 04-17-2018 Patient Education - Text Normal [facility] Coding Summary.on 04-02-2018 Coding Summary. CODING DATE: 018 FINAL [facility] STATUS: Home (Routine DC) PAYOR: [...] carried out for other reasons PYMT PROC [facility] STAT DESCRIPTION DOCTOR NAME DATE 76366 [id number] Sigmoidoscopy, flexible; Colin Shirley MD 03/30/2018 with biopsy, single or multiple 74 Discontinued [facility] Procedure After Administration of Anesthe 61881 Anesthesia for lower Colin Shirley MD 03/30/2018 intestinal endoscopic procedures, endoscope introduced distal to duodenum; not otherwise specified NOTE: The code number assigned matches the documented diagnosis and / or procedure in the patient's chart. However, the narrative phrase printed from the coding software may appear abbreviated, or result in slightly different terminology. Coded By: Sary Little Date Saved: 04/02/2018 04:16 pm Normal [facility] Progress Note-Physicianon Progress Note-Physician Patient: RJ COLBERT [...] Cardiovascular: Regular rhythm. Neurologic: Alert, Oriented. Plan [place] [employer] Anesthesiologists (ASA) physical status classification: Class II. Anesthetic Preoperative Plan Anesthesia: General. . Anesthetic plan, risks, benefits, and alternatives discussed with the patient and/or family. Communication: face to face with (patient 5 minutes, Patient educated on smoking cesstation). Normal [facility] Comment on above: Result Comment: Elec tronically Signed By: Rusty Fagan DO, Quincy Gregory\.br\Date and Time Signed: 04/01/18 07:53 EDT History and Physicalon 03-30 History and Physical Date: 03/10/2018 2:15 PMPatient Name: Rj Lepe #: [id number]: MaleDOB (age): 2000 (17)Provider: Annie Benton Complaint: Change in Bowel habits Blood in StoolHistory of Present Illness:17 years old -[place] male with multiple psychiatric problems, lives in a intermediate, referred to me to be evaluatedfor rectal [...] stool incontinence, stomachPrinted on 03/26/2018 Rj Colbert, [id number], 2000 Page 1 of 4Printed on 03/26/2018 Rj Colbert, [id number], 2000cramps, straining. Denies abdominal pain, abdominal swelling, [...] up blood.Vital Signs:BP(mmHg)Pulse(ppm )Rhythm Weight (lbs/oz) Resp/min Bnst936/68 82 Regular 191 / 12 98.3 (F)Physical [...] hemorrhageConstipationP brian: Colonoscopy will be performed at [facility] .Printed on 03/26/2018 Cooper Coto, 2000 Page 2 of 4Printed on 03/26/2018 Brittaney Coto03, 2000Risk & Medical Necessity: Diagnosis and management options are Extensive. The amount of data reviewedand/or ordered is Moderate. The level of risk is Moderate.Colin Shirley MD Rj Colbert, [id number], 2000 Page 3 of 4Printed on 03/26/2018 Rj Colbert, [id number], 2000Printed on 03/26/2018 Rj Colbert, 43560, 2000 Page 4 of 4Printed on 03/26/2018 Rj Colbert, 93843, 2000No change Normal [facility] Comment on above: Result Comment: Elec tronically Signed By: Casper GAUTAM, Colin\.br\Date and Time Signed: 03/30/18 10:52 EDT Inpatient Patient Summaryon 03-30-2018 [facility] Inst[facility] INFORMATION Name: RJ COLBERT PHYSICIANS Admitting Physician: Casper GAUTAM, Javier Physician: Colin Shirley MD PCP: Murphy WEISS MD Diagnosis: Internal hemorrhoids Comment: PATIENT EDUCATION INFORMATIONInstructions :Medication Leaflets:Follow up:With: Address: When: Colin Shirley [facility], [address], [place] [id number] Business (1) Within 1 to 2 weeks MEDICATION LISTComment: Normal [facility] Main OR Intraoperative Recor don 03-30-2018 Main OR Intraoperative Record IntraOp Document Type FT Summary Primary Physician: Colin Shirley MD Finalized Date/Time: 03/30/18 11:37:17 Pt. Name: RJ COLBERT /Sex: 2000 Male Med Rec #: [id number] Physician: Colin Shirley MD Financial #: [id number] Pt. Type: O Room/Bed: / Admit/Disch: 03/30/18 [...] Tori Capellan CST Role Performed Anesthesiologist of Cork Grinder - Primary Scrub - Primary Record Time In 03/30/18 10:56:00 03/30/18 10:56:00 03/30/18 10:56:00 Time Out 03/30/18 11:13:00 03/30/18 11:13:00 03/30/18 11:13:00 Procedure COLONOSCOPY(.) COLONOSCOPY(.) COLONOSCOPY(.) Comments Last Modified By: Paul RN, Francy Miller RN, Francy Miller RN, Francy Gregory 03/30/18 11:14:48 03/30/18 11:14:48 03/30/18 11:14:48 Entry 4 Entry 5 Case Attendee Colin Shirley MDhy Restaurant Area DirectorMagi Role Performed Surgeon - Primary Scrub - Other Time In 03/30/18 10:56:00 03/30/18 10:56:00 Time Out 03/30/18 11:13:00 03/30/18 11:13:00 Procedure COLONOSCOPY(.) COLONOSCOPY(.) Comments Orienting Last Modified By: Francy Milelr RN, RN, Trisha A 03/30/18 11:14:48 03/30/18 [...] Participants Francy Miller RN, Colin Shirley MD Williamson Restaurant Area Director, Oliver Bess CST, Molly Time Out Complete [...] and tissue Entry 1 Skin Integrity Intact, Hoover, Warm, and Skin Abnormality No Dry Outcomes [...] RN Patient Status Stable Skin. Condition Intact, Hoover, Warm, and Dry Airway Maintenance Oxygen in Use? No Airway Device N/A Outcomes Met? Yes Last Modified By: Francy Miller RN 03/30/18 07:37:17 Post-Care Text: The patient is free from signs and symptoms of injury related to transfer/transport General Comments: Report given to PACU,RN./RICHARD,hammer operator Administration FT Pre-Care Text: Verifies allergies, administers prescribed medications and solutions, administers prescribed antibiotic therapy and immunizing agents as ordered, evaluates response to medications Administers prescribed medications and solutions Entry 1 Expiration Date Yes Outcomes Met? Yes Verified Last Modified By: Francy Miller RN 03/30/18 07:37:26 Post-Care Text: The patient received appropriate medication(s) safely administered during the perioperative period For [facility] please see scanned medication reconcilliation form for [...] 11:14 Addie Oreilly CST 03/30/18 11:37 Normal [facility] Main OR PACU I Recordon Main OR PACU I Record PACU Phase I Document Type FT Summary Primary Physician: Colin Shirley MD Finalized Date/Time: 03/30/18 11:29:28 Pt. Name: RJ COLBERT Bonnie/Sex: 2000 Male Med Rec #: [id number] Physician: Colin Shirley MD Financial #: [id number] Pt. Type: O Room/Bed: / Admit/Disch: 03/30/18 [...] Signed By: Essie Guzman RN 03/30/18 11:29 [facility] Main OR Preoperative Recordo n 03-30-2018 Main OR Preoperative Record Holding Area Document Type FT Summary Primary Physician: Colin Shirley MD Finalized Date/Time: 03/30/18 10:16:59 Pt. Name: RJ COLBERT /Sex: 2000 Male Med Rec #: [id number] Physician: Colin Shirley MD Financial #: [id number] Pt. Type: O Room/Bed: / Admit/Disch: 03/30/18 [...] By: Kathleen Gómez RN 03/30/18 10:16 Normal [facility] Patient Education - Texton 0 03-30-2018 Patient Education - Text Normal [facility] Progress Note-Physicianon Progress Note-Physician Patient: RJ COLBERT [...] 30:30) 97 (MAR 30 11:25) 100 (MAR 30 [...] vomiting. Plan Transfer/ Discharge: Condition stable. Normal [facility] Comment on above: Result Comment: Elec tronically Signed By: Quincy Ojeda Jr, DO\.karen\Date and Time Signed: 03/30/18 11:55 EDT Vital Signs Date Time Vital Sign Value Performing Clinician Facility 07-14-2024 09:26-0400 Body height 177.8 cm Benson Weiss MD Work Phone: [facility] 07-14-2024 09:26-0400 Body mass index (BMI) [Ratio] 28.84 kg/m2 Benson Weiss MD Work Phone: [facility] 07-14-2024 09:26-0400 Body temperature 97.5 [degF] Benson Weiss MD Work Phone: [facility] 07-14-2024 09:26-0400 Body weight 91.17 kg Benson Weiss MD Work Phone: [facility] 07-14-2024 09:26-0400 Diastolic blood pressure 70 mm[Hg] Benson Weiss MD Work Phone: [facility] 07-14-2024 09:26-0400 Heart rate 88 /min Benson Weiss MD Work Phone: [facility] 07-14-2024 09:26-0400 Respiratory rate 20 /min Benson Weiss MD Work Phone: [facility] 07-14-2024 09:26-0400 SaO2% (BldA) [Mass fraction] 99 % Benson Weiss MD Work Phone: [facility] 07-14-2024 09:26-0400 Systolic blood pressure 118 mm[Hg] Benson Weiss MD Work Phone: [facility] 01-26-2024 14:24-0400 Body height 177.8 cm Reynold Kuo MD Work Phone: [facility] 01-26-2024 14:24-0400 Body mass index (BMI) [Ratio] 25.75 kg/m2 Reynold Kuo MD Work Phone: [facility] 01-26-2024 14:24-0400 Body weight 81.4 kg Reynold Kuo MD Work Phone: [facility] 03-28-2022 11:11-0400 Body height 180.3 cm Arnold Genao MD Work Phone: [facility] 03-28-2022 11:11-0400 Body weight 90.27 kg Arnold Genao MD Work Phone: [facility] 03-28-2022 11:11-0400 Diastolic blood pressure 65 mm[Hg] Arnold Genao MD Work Phone: [facility] 03-28-2022 11:11-0400 Heart rate 80 /min Arnold Genao MD Work Phone: [facility] 03-28-2022 11:11-0400 SaO2% (BldA) [Mass fraction] 100 % Arnold Genao MD Work Phone: [facility] 03-28-2022 11:11-0400 Systolic blood pressure 108 mm[Hg] Arnold Genao MD Work Phone: [facility] Encounters Encounter Date Encounter Type Care Provider Facility Start: 09-13-2024 End: 09-13-2024 Clinisync Result Encounter Generic External Data Provider [facility] External [facility] Unsolicited Start: 09-13-2024 End: 09-13-2024 Clinisync Result Encounter Generic External Data Provider [facility] External Department Unsolicited Start: 09-09-2024 ambulatory Jean Carlos Boudreaux acility:[facility] Start: 08-18-2024 End: 08-19-2024 Clinisync Result Encounter Generic External Data Provider [facility] External Department Unsolicited Start: 08-18-2024 End: 08-19-2024 Clinisync Result Encounter Generic External Data Provider [facility] External Department Unsolicited Start: 07-14-2024 End: 07-14-2024 Bamboo flowsheet Benson Weiss MD Work Phone: [facility] Start: 07-14-2024 End: 07-14-2024 Garrison Weiss MD Work Phone: [facility] Start: 07-14-2024 End: 07-14-2024 Office outpatient visit 15 minutes Benson Weiss MD Work Phone: [facility] Comment on above: Seasonal allergic rh initis due to pollen (Primary Dx); Chronic constipation; Chronic schizophrenia ([facility]) Start: 07-14-2024 End: 07-14-2024 ambulatory BENSON WEISS Not Available Start: 01-26-2024 End: 01-26-2024 ambulatory REYNOLD KUO [facility] Start: 01-26-2024 End: 01-26-2024 Postop follow up visit related to original px Reynold Kuo MD Work Phone: [facility] Comment on above: Rectal prolapse (Charlee hortensia Dx) Start: 01-10-2024 End: 01-10-2024 Evaluation and management of inpatient JOHN MIGUEL ÁNGEL [facility] Start: 01-09-2024 End: 01-10-2024 Evaluation and management of inpatient BENSON WEISS [facility] Start: 01-08-2024 End: 01-08-2024 Emergency department patient visit BENSON WEISS [facility] Start: 01-07-2024 End: 01-07-2024 ambulatory [...] Dx) Start: 04-17-2018 End: 04-18-2018 Ambulatory [facility] Facility:[facility] Start: 03-30-2018 End: 03-31-2018 Ambulatory [facility] Facility:[facility] Procedures Date Procedure Procedure Detail Performing Clinician Start: 09-13-2024 ALL CBC WITH AUTO DIFF Generic External Data Provider Start: 08-18-2024 ALL CBC WITH AUTO DIFF Generic External Data Provider Plan of Treatment Date Care Activity Detail Author Start: 08-05-2029 DTaP,Tdap and Td Vaccines (8 - Td or Tdap) DTaP,Tdap and Td Vaccines (8 - Td or Tdap) [facility] Start: 01-25-2025 Adult BMI Screening Adult BMI Screen ing [facility] Start: 01-25-2025 Tobacco Screening Tobacco Screening [facility] Start: 01-12-2025 End: 01-12-2025 Patient encounter procedure 01/12/2025 9:30 AM EDT Office Visit [facility] [address] [place] [address] Benson Weiss MD [address] [place] [phone] [facility] Start: 07-14-2024 End: 07-14-2024 Patient encounter procedure 07/14/2024 9:30 AM EDT Office Visit [facility] [address] [place] [address] Benson Weiss MD [address] [place] [phone] Arrived [facility] Comment on above: Arrived Start: 06-27-2024 Influenza vaccination [facility] Start: 06-27-2023 COVID-19 Vaccine ( season) COVID-19 Vaccine ( season) [facility] Start: 2017 Urine microalbumin profile DTAP,TDAP,TD (1 - Tdap) [facility] Start: 2016 Adult BMI Follow Up Plan Adult BMI Follow Up Plan [facility] Start: 2016 HEPATITIS C SCREENING HEPATITIS C SC REENING [facility] Start: 2016 HIV SCREENING HIV SCREENING [facility] Start: 2012 PEDS TO ADULT TRANSI TION ANNUAL ASSESSMENT PEDS TO ADULT TRANSITION ANNUAL ASSESSMENT [facility] Start: 2010 Adult depression screening assessment DEPRESSION SCREENING [facility] Start: 2010 PEDS TO ADULT TRANSI TION INITIAL DISCUSSION PEDS TO ADULT TRANSITION INITIAL DISCUSSION [facility] Start: 2009 HPV VACCINE (1 - Mal e 2-dose series) HPV VACCINE (1 - Male 2-dose series) [facility] Start: 2008 MENINGOCOCCAL B: Consider based on risk (1 of 2 - Risk Bexsero 2-dose series) MENINGOCOCCAL B: Consider based on risk (1 of 2 - Risk Bexsero 2-dose series) [facility] Start: 1998 Medicare Annual Well ness (AWV) Medicare Annual Wellness (AWV) [facility] Immunizations Immunization Date Immunization Notes Care Provider Fa cili 12-08-2020 COVID-19, mRNA, LNP- S, PF, 30mcg/0.3mL [...] Kuo MD Work Phone: [facility] Payers Date Payer Category Payer Medicaid [id number] 2023 Self-pay 2021 Medicaid MEDICAID [facility] MEDICAID [id number] 2021-Present [phone] [address] [place] [address] Medicaid [id number] 2018 Medicare MEDICARE MEDICAR E A AND B [id number] 2018-Present [phone] [address] [address] [place] [address] Medicare [id number] 2018 Medicare [id number] 2018 Medicaid MEDICAID [facility] M EDICAID [id number] 2018-Present [phone] [address] [place] [address] [id number] 1998 Unknown [id number] [id number]3 1998 Unknown [id number] 2.16.840.1.367672.3.579.2.593 1998 Unknown [id number] 2.16.840.1.582199.3.579.2.593 1998 Unknown [id number] 2.16.840.1.781856.3.579.2.593 1998 Unknown [id number] 2.16.840.1.800265.3.579.2.593 1998 Unknown [id number] 2.16.840.1.954718.3.579.2.593 1998 Unknown [id number] 2.16.840.1.699457.3.579.2.593 1998 Unknown [id number] 2.16.840.1.914151.3.579.2.593 1998 Unknown [id number] 2.16.840.1.438601.3.579.2.593 1998 Unknown [id number] 2.16.840.1.389944.3.579.2.593 1998 Unknown [id number] 2.16.840.1.377227.3.579.2.593 1998 Unknown [id number] 2.16.840.1.466807.3.579.2.593 1998 Unknown [id number] 2.16.840.1.794730.3.579.2.1286 1998 Unknown [id number] 2.16.840.1.245291.3.579.2.1286 1998 Unknown [id number] 2.16.840.1.248389.3.579.2.1286 1998 Unknown [id number] 2.16.840.1.211169.3.579.2.1286 1998 Unknown [id number] 2.16.840.1.690165.3.579.2.1286 1998 Unknown [id number] 2.16.840.1.751503.3.579.2.1259 1998 Unknown [id number] 2.16.840.1.890035.3.579.2.1259 1961 Medicaid [id number] 1961 Medicare [id number] Social History Date Type Detail Facility Start: 03-01-2015 End: 05-12-2023 Tobacco smoking status NHIS Never smoked tobacco [facility] Start: 03-01-2015 End: 01-26-2024 Tobacco use and exposure Smokeless tobacco non-user [facility] Start: 03-28-2022 Alcohol intake Current non-dr [employer] of alcohol (finding) [facility] Start: 2000 Sex Assigned At Not on file [facility] Start: 03-18-2022 End: 03-28-2022 Exposure to SARS-CoV-2 (event) Not sure [facility] Start: 01-26-2024 Alcohol intake Lifetime non-d juan (finding) [facility] Start: 01-09-2024 End: 07-14-2024 History of Social function [facility] Start: 01-09-2024 End: 07-14-2024 [facility] Utilities [facility] Has the [employer] or [employer] threatened to shut off services in your home in past 12Mo No [employer] [facility] How often to you hav e a drink containing alcohol? Never [employer] [facility] How many standard drinks containing alcohol do you have on a typical day? Patient does not drink [employer] [facility] Start: 01-07-2024 End: 07-14-2024 Alcoholic beverage intake Ex-drinker (finding) [facility] Goals Date Patient Goal Desired Activity /State Personal health goal Comment on above: Formatting of this n ote might be different from the original. Evaluation of progress towards goal: Soren Conner, states back to intermediate. Clinical Notes 06-29-2021 to 07-14-2024 Benson Weiss MD - 07/14/2024 10:07 AM Maggy Weiss MD - 07/14/2024 10:07 AM Maggy eWiss MD - 07/14/2024 10:07 AM Maggy Weiss MD - 07/14/2024 9:30 AM EDT Note Date & Type Note Facility 07-14-2024 History of Presen t illness Narrative Associated Problem(s): Seasonal allergic rhinitis due to pollen Symptoms controlled with medication and continue. Associated Problem(s): Chronic schizophrenia (CMS/HCC) No behavior problems and follow up with psychiatry. Associated Problem(s): Chronic constipation BM every few days and resume daily fiber supplement. Images from the original note were not included. Subjective Patient ID: Rj Colbert is a 24 y.o. male who presents for Follow-up (6m f/up). Follow up allergies, constipation, and schizophrenia. History of MR and lives in intermediate, accompanied by caregiver. Patient doing well today. Allergies controlled with medication. No congestion or rhinorrhea. No GREEN or sinus pressure. Ears not plugged or popping. Reports constipation recently worse. BM every 1-2 days. Not straining or passing hard stool. Not taking fiber daily. Behavior controlled and no outbursts or problems. Following with psychiatry. Review of Systems Constitutional: Negative for fatigue. Respiratory: Negative for cough, shortness of breath and wheezing. Cardiovascular: Negative for chest pain and palpitations. Gastrointestinal: Negative for abdominal pain, diarrhea, nausea and vomiting. Genitourinary: Negative for dysuria. Objective Physical Exam Constitutional: General: He is not in acute distress. Appearance: Normal appearance. HENT: Head: Normocephalic. Right Ear: Tympanic membrane and ear canal normal. Left Ear: Tympanic membrane and ear canal normal. Eyes: Extraocular Movements: Extraocular movements intact. Pupils: Pupils are equal, round, and reactive to light. Cardiovascular: Rate and Rhythm: Normal rate and regular rhythm. Heart sounds: No murmur heard. No friction rub. No gallop. Pulmonary: Breath sounds: Normal breath sounds. No wheezing, rhonchi or rales. Abdominal: General: Bowel sounds are normal. There is no distension. Palpations: Abdomen is soft. Tenderness: There is no abdominal tenderness. There is no guarding or rebound. Musculoskeletal: Left lower leg: No edema. Neurological: Mental Status: He is alert. Assessment/Plan Problem List Items Addressed This Visit Chronic constipation BM every few days and resume daily fiber supplement. Chronic schizophrenia (CMS/HCC) No behavior problems and follow up with psychiatry. Seasonal allergic rhinitis due to pollen - Primary Symptoms controlled with medication and continue. documented in this encounter [facility] 01-26-2024 History of Presen t illness Narrative Images from the original note were not included. [facility] [address] [place] [phone] Patient: Rj Colbert Date of : 2000 Encounter Date: 01/26/2024 History of Present Illness: The patient is 23 y.o. male and presents for postoperative follow-up s/p repair of rectal prolapse. Patient presented with incarcerated prolapse. He underwent Altemeier procedure. Patient now follows up. Patient is accompanied by accountant helper. He is doing well. He denies any [...] will speak with the nurse at the intermediate. Pharmacy, [facility], [facility], phone , any pharmacist to clarify about carbonate? CALM is intermediate able to order as food item? Please call to discuss. documented in this encounter [facility] 03-28-2022 Miscellaneous Notes Opened in error documented in this encounter [facility] 03-28-2022 Miscellaneous Notes Addended by: ARNOLD GENAO on: 03/28/2022 03:11 PM Modules accepted: Orders Addended by: CHARLEY MCCLELLAND on: 03/28/2022 02:47 PM Modules accepted: Orders documented in this encounter [facility] 03-28-2022 Note HNO ID: [id number] Author: Arnold Genao MD Service: ? Author [...] - ABDOMINAL SURGERY HX - HEMORRHOID;BAND ANTONIO, JENNIFER/MUL 07/12/2021 Current Outpatient Medications Medication Sig [...] exam Anorectal: External exam reveals: see below Ammonia Refrigeration Worker present: yes Assessment Assessment and Plan: Rj Colbert is a 21 year old male with straining and occasional rectal bleeding. Today, we talked about adding a magnesium supplement CALM to his regimen to decrease straining. I am of the opinion that more surgery is not the best option at this time. Arnold Genao MD Colorectal Surgery [facility] 03-28-2022 Nurse Note Calm education given for constipation. What is the reason for your visit today? Established patient presents for hematochezia. Who is your referring physician? Are you having poor oral intake? NO Have you had unintentional weight loss of 15 lbs/7 Kg in the last 3-6 months? NO Bowels: regular Wound: None Temperature: No Drains: No documented in this encounter [facility] 03-28-2022 History of Presen t illness Narrative COLORECTAL SURGERY March 28, 2022 Rj Colbert 21 year old Chief Complaint: hematochezia History of Present Illness: Rj Colbert is a 21 year old male presents to the office for evaluation of hematochezia. Last seen in the office on 11/16/21 with Cristal Nava DIRECT MAIL MARKETER for follow up visit after he underwent [...] exam Anorectal: External exam reveals: see below Ammonia Refrigeration Worker present: yes Assessment Assessment and Plan: Rj Colbert is a 21 year old male with straining and occasional rectal bleeding. Today, we talked about adding a magnesium supplement CALM to his regimen to decrease straining. I am of the opinion that more surgery is not the best option at this time. Arnold Genao MD Colorectal Surgery documented in this encounter [facility] 11-16-2021 Note HNO ID: [id number] Author: Cristal Nava APRN.COUNTY DEMONSTRATOR Service: ? Author Type: Nurse Practitioner Type: [...] results with patient and POA. Cristal Nava APRN.COUNTY DEMONSTRATOR Colorectal Surgery [facility] 10-17-2021 Note HNO ID: [id number] Author: Hunter Massey APRN.CRNA Service: Anesthesiology Author Type: Nurse Bond Underwriter Type: Anesthesia Procedure Notes Filed: 10/17/2021 8:55 AM Note Text: ANESTHESIOLOGY PROCEDURE NOTE Airway General Information Procedure Start Time/Medication Administration: 10/17/2021 8:49 AM Patient location during procedure: OR Timeout Performed Pre-procedure: timeout performed Consent Obtained: Yes Patient identity confirmed: arm band, care submarine advisory team watch officer and patient Staffing Anesthesiologist: Michael Martínez MD CLAIM BENEFIT SPECIALIST: Hunter Massey APRN.CLAIM BENEFIT SPECIALIST Performed by: CLAIM BENEFIT SPECIALIST Indications and Patient Condition Preoxygenated: yes Patient [...] October 17, 2021 TIME: 8:54 AM CSN: [id number] [facility] 08-31-2021 Note HNO ID: [id number] Author: Arnold Genao MD Service: ? Author [...] Anorectal: External exam reveals : see below Ammonia Refrigeration Worker present: yes Assessment Assessment and Plan: Rj Colbert is a 21 year old male who is doing relatively well after his recent rubber band ligation. He still has some rectal bleeding and it is difficult to assess the exact amount. If the bleeding persists we will consider internal hemorrhoidectomy. Arnold Genao MD Colorectal Surgery [facility] 07-12-2021 Note HNO ID: [id number] Author: Shanthi Chapman APRN.CLAIM BENEFIT SPECIALIST Service: Anesthesiology Author Type: Nurse Bond Underwriter Type: Anesthesia Procedure Notes Filed: 07/12/2021 10:54 AM Note Text: ANESTHESIOLOGY PROCEDURE NOTE Airway General Information Procedure Start Time/Medication Administration: 07/12/2021 10:48 AM Patient location during procedure: OR Patient identity confirmed: arm band, care submarine advisory team watch officer and patient Staffing CLAIM BENEFIT SPECIALIST: Shanthi Chapman APRN.CLAIM BENEFIT SPECIALIST Performed by: CLAIM BENEFIT SPECIALIST Indications and Patient Condition Preoxygenated: yes Patient [...] no Airway not difficult SIGNATURE: Shanthi Chapman APRN.CLAIM BENEFIT SPECIALIST PATIENT NAME: Rj Colbert DATE: July 12, 2021 TIME: 10:53 AM CSN: [id number] [facility] 06-29-2021 Note HNO ID: [id number] Author: Arnold Genao MD Service: ? 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 They relate that he is having around [...] (222 lb 4.8 oz) BMI 31.90 kg/m? 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 Our plan is to perform an EUA and rubber band ligation of internal hemorrhoids at the [facility]. Medical Decision Making: Arnold Genao MD Colorectal Surgery [facility] Evaluation note Diagnosis Hematochezia- Primary Blood in stool [facility] Rectal prolapse- Primary [facility] Diagnosis Seasonal allergic rhinitis due to pollen- Primary Chronic constipation Unspecified constipation Chronic schizophrenia (CMS/HCC) Unspecified schizophrenia, chronic condition documented in this encounter [facility]ructionsNot on filedocumented in this encounterProSelect [facility] Purpose Family History No Family History Records FoundNo Family History Records FoundNo Family History Records FoundNo Family History Records FoundNo Family History Records FoundNo Family History Records FoundNo Family History Records FoundNo Family History Records Found Advance Directives Documents on File Type Date Recorded 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 Advance Directive(s) 07/09/2021 9:04 AM [...] and content) DATE CREATED AUTHOR [facility]01/[facility] DATE CREATED AUTHOR AUTHOR'S ORGANIZ ATION 10/31/2021 [facility] DATE CREATED AUTHOR AUTHOR'S ORGANIZ ATION 03/29/2022 [facility] DATE CREATED AUTHOR AUTHOR'S ORGANIZ ATION 04/04/2023 [facility] DATE CREATED AUTHOR AUTHOR'S ORGANIZ ATION 01/10/2024 [facility] DATE CREATED AUTHOR AUTHOR'S ORGANIZ ATION 01/27/2024 [facility] DATE CREATED AUTHOR AUTHOR'S ORGANIZ ATION 07/16/2024 [facility] DATE CREATED AUTHOR AUTHOR'S ORGANIZ ATION 09/11/2024 [facility] Source Comments (unrecognize d section and content) In the event this informatio n is protected by the Federal Confidentiality of Alcohol and Drug Abuse Patient Records regulations: The Federal rules restrict any use of the information to criminally investigate or prosecute any alcohol or drug abuse patient.[facility] the event this information is protected by the Federal Confidentiality of Alcohol and Drug Abuse Patient Records regulations: The Federal rules restrict any use of the information to criminally investigate or prosecute any alcohol or drug abuse patient.[facility] System[facility] the event this information is protected by the Federal Confidentiality of Alcohol and Drug Abuse Patient Records regulations: The Federal rules restrict any use of the information to criminally investigate or prosecute any alcohol or drug abuse patient.[facility] Reason for Visit (unrecogniz ed section and content) Reason Comments Established Patient Follow-Up Rectal Bleeding Reason Comments Opened In Error no documentation-err or Reason Comments Medication Problem magnesium carbonate? vs? CALM Reason Comments Post-op 2 week Reason Comments Follow-up 6m f/up Care Teams (unrecognized sec tion and content) Resort Host Relationship Specialty Start Date End Date Benson Weiss MD [address] [facility] [place] [address] PCP - General Family Medicine 01/08/24 Resort Host Relationship Specialty Start Date End Date Benson Weiss MD [address] [place] [phone] PCP - General Family Medicine 01/07/24 Resort Host Relationship Specialty Start Date End Date Benson Weiss MD [address] [place] [phone] PCP - General [facility] Medicine 01/07/24 Resort Host Relationship Specialty Start Date End Date Benson Weiss MD [address] [place] [phone] PCP - General Family Medicine 01/07/24 FOR [...] BE BASED ON THE PRIMARY CLINICAL RECORDS. [facility] [employer] [facility]. provides no warranty or guarantee of the accuracy or completeness of information in this document.
[2024-10-14 16:38] LABS: Band Neutrophils Absolute 0.1 10^3/uL (0.0-0.3); Lymphocytes Absolute Manual 1.51 10^3/uL (1.20-3.80); Segmented Neut Absolute Manual 4.03 10^3/uL (1.4-6.5)
[2024-10-14 16:39] LABS: Acanthocytes 1+; Anisocytosis 1+; Basophils Abs Manual 0.06 10^3/uL (0.00-0.10); Hypochromasia 1+; Microcytosis 1+; Monocytes Absolute Manual 0.63 10^3/uL (0.30-0.80); Ovalocytes 1+; Poikilocytosis 1+
== END 2024-10-14 15:52 | disposition home or self-care (01) ==
LOC: LAB 15:52
PROVIDERS: PCP Family Medicine; Visit Provider Registered Nurse Psychiatric/Mental Health
DX: Z79.899 Other long term (current) drug therapy (principal)
CPT/HCPCS: 36415; 85007; 85027

== ENCOUNTER 2024-11-08 09:43 | Outpatient (OUT) | payer MEDICARE, MEDICAID, SELFPAY ==
[2024-11-08 10:29] LABS: Basophils Percent Auto 0.7 % (0.2-2.0); Eosinophils Percent Auto 0.5 % (0.9-7.0); Hematocrit 40.4 % (42.0-54.0); Hemoglobin 11.3 g/dL (14.0-18.0); Immature Granulocytes Abs Auto 0.02 10^3/uL (0.00-0.03); Immature Granulocytes Pct Auto 0.3 % (0.0-0.5); Lymphocytes Absolute Auto 1.6 10^3/uL (1.2-3.8); Lymphocytes Percent Auto 26.3 % (20.5-60.0); Mean Corpuscular Hemoglobin 18.8 pg (25.9-34.0); Mean Corpuscular Volume 67.1 fL (80.0-94.0); Mean Platelet Volume 10.3 fL (9.5-13.5); Neutrophils Absolute Auto 3.5 10^3/uL (1.4-6.5); Neutrophils Percent Auto 56.2 % (43.0-75.0); Platelet Count 291 10^3/uL (150-450); Red Cell Distribution Width 20.8 % (11.0-15.0); White Blood Count 6.1 10^3/uL (4.0-11.0)
[2024-11-08 11:00] LABS: Red Blood Count 6.02 10^6/uL (4.70-6.10)
== END 2024-11-08 09:44 | disposition home or self-care (01) ==
LOC: LAB 09:45
PROVIDERS: PCP Family Medicine; Visit Provider Registered Nurse Psychiatric/Mental Health
DX: Z79.899 Other long term (current) drug therapy (principal)
CPT/HCPCS: 36415; 85025

== ENCOUNTER 2024-12-08 15:52 | Outpatient (OUT) | payer MEDICARE, MEDICAID, SELFPAY ==
[2024-12-08 16:01] LABS: Basophils Percent Auto 0.5 % (0.2-2.0); Eosinophils Absolute Auto 0.1 10^3/uL (0.0-0.7); Eosinophils Percent Auto 1.5 % (0.9-7.0); Hematocrit 40.5 % (42.0-54.0); Hemoglobin 11.3 g/dL (14.0-18.0); Immature Granulocytes Abs Auto 0.02 10^3/uL (0.00-0.03); Immature Granulocytes Pct Auto 0.3 % (0.0-0.5); Lymphocytes Percent Auto 26.4 % (20.5-60.0); Mean Corpuscular HGB Conc 27.9 g/dL (29.9-35.2); Mean Corpuscular Hemoglobin 18.8 pg (25.9-34.0); Mean Corpuscular Volume 67.5 fL (80.0-94.0); Mean Platelet Volume 9.9 fL (9.5-13.5); Monocytes Absolute Auto 0.8 10^3/uL (0.3-0.8); Monocytes Percent Auto 10.6 % (1.7-12.0); Neutrophils Absolute Auto 4.5 10^3/uL (1.4-6.5); Neutrophils Percent Auto 60.7 % (43.0-75.0); Platelet Count 284 10^3/uL (150-450); Red Cell Distribution Width 20.7 % (11.0-15.0); White Blood Count 7.4 10^3/uL (4.0-11.0)
--- OUTSIDE RECORDS SUMMARY | 2024-12-08 16:09 | XMS_ITS | CCD ---
Author Organization [facility] Care Team Providers Care Grinder Setup Operator Name Role Phone Salam, Shaw Unavailable Unavailable Salam, Shaw Unavailable Unavailable Salam, Shaw Unavailable Unavailable NADERER, [phone] UNKNOWN Unavailable Unavailable Salam, Shaw Unavailable Unavailable Salam, Shaw Unavailable Unavailable Salam, Shaw Unavailable Unavailable NADERER, [phone] UNKNOWN Unavailable Unavailable Unavailable Primary Care Provider [...] Unavailable Benson Weiss MD Primary Care Provider [phone] BENSON WEISS Primary Care Unavailable TABITHA MERINO [...] Medication Allergies] Propensity to adverse reactions (disorder) [facility] Repository Medications Current Medications Medication Drug Class(es) Dates Sig (Normalized) Sig (Original) acetaminophen 500 mg oral tablet (12 sources) Start: 01-10-2024 End: 01-12-2025 take 2 [...] hours. benztropine mesylate 2 mg oral tablet (12 sources) Anticholinergic, Antihistamine take 1 tablet by mouth in the morning benztropine (Cogentin) 2 MG tablet Take 2 mg by mouth in the morning and 2 mg in the evening. Active Comment on above: Take 2 mg by mouth t wice daily. calcium polycarbophil 625 mg oral tablet (12 sources) Start: 09-01-20 take 1 tablet by mouth once daily [...] mouth . clonazePAM 0.5 mg oral tablet (12 sources) Benzodiazepine take 1 tablet by mouth [...] needed. docusate sodium 100 mg oral capsule (12 sources) Start: 09-28-2024 take 1 capsule by mouth in the morning Docusate Sodium (DSS) 100 MG capsule Indications: Chronic constipation Take 1 capsule (100 mg) by mouth in the morning. 60 capsule 5 09/28/2024 Active Start: 11-04-2023 take 1 capsule by mo [facility] in the morning Docusate Sodium (DSS) 100 MG capsule Indications: Chronic constipation Take 1 capsule (100 mg) by mouth in the morning. 60 capsule 5 11/04/2023 Active Comment on above: Take 100 mg by mouth twice daily. FLUoxetine 40 mg oral capsule (12 sources) Serotonin Reuptake Inhibitor take 1 capsule [...] once daily. haloperidol 10 mg oral tablet (12 sources) Typical Antipsychotic take 1 tablet by [...] for pain. loratadine 10 mg oral tablet (12 sources) Start: 12-18-19 24 End: 12-17-19 25 take 1 tablet by mouth in the morning loratadine (Claritin) 10 MG tablet Indications: Seasonal allergic rhinitis due to pollen Take 1 tablet (10 mg) by mouth in the morning. 30 tablet 11 12/18/2023 12/17/2024 Active Comment on above: Take 10 mg by mouth. Magnesium Carbonate powd (3 sources) Start: 03-28-20 End: 06-26-20 22 Magnesium Carbonate powd 4 g daily at [...] mouth nightly. 0 Active polyethylene glycol 3350 23631 mg powder for oral solution (4 sources) [...] Episodic Attention-deficit, conduct, and disruptive behavior disorders (8 sources) Oppositional defiant disorder; Translations: [Oppositional defiant disorder] Onset: 01-07-2024 01-07-2024 Chronic Developmental disorders (8 sources) Mild intellectual disability; Translations: [Mild intellectual disabilities] Onset: 01-07-2024 01-07-2024 Chronic Disorders usually diagnosed in infancy, childhood, or adolescence (8 sources) Tic disorder; Translations: [Tic disorder, unspecified] Onset: 01-07-2024 01-07-2024 Chronic Gastrointestinal hemorrhage (1 source) Blood-tinged feces; Translations: [Melena] Episodic Other aftercare (4 sources) Other usp (current) drug therapy; Translations: [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] Onset: 02-19-2023 Episodic Other upper respiratory disease (10 sources) Allergic rhinitis due to pollen; Translations: [Allergic rhinitis due to pollen] Onset: 01-07-2024 01-07-2024 Chronic Schizophrenia and other psychotic disorders (13 sources) Schizophrenia; Translations: [Schizophrenia, unspecified] Onset: 07-10-2021 07-10-2021 Chronic Unclassified (1 source) Bowel Issue Onset: 01-08-2024 Unclassified (1 source) Post-op Onset: 01-26-2024 Unclassified (1 source) Medical Problem Onset: 01-09-2024 Unclassified (1 source) [place] transfer Onset: 01-09-2024 Past or Other Problems Problem Classification Problem Date Documented Da te Episodic/Chronic Hemorrhoids (3 sources) Hemorrhoids; Translations: [Unspecified hemorrhoids] Onset: 10-17-2021 10-17-2021 Episodic Malaise and fatigue (8 sources) Fatigue; Translations: [Other fatigue] Onset: 01-07-2024 01-07-2024 Episodic Other gastrointestinal disorders (10 sources) Chronic constipation; Translations: [Other constipation] Onset: 01-07-2024 01-07-2024 Episodic Other nutritional; endocrine; and metabolic disorders (11 sources) Developmental delay; Translations: [Unspecified lack of expected normal physiological development in childhood] Onset: 07-10-2021 07-10-2021 Episodic Results Test Name Value Interpretation Reference Range Facility ALL CBC WITH AUTO DIFFon BASOPHILS ABSOLUTE AUTO 0 [facility] Basophils/100 WBC (Bld) 0.7 % 0.2 - 2.0 % [facility] Eosinophils/100 WBC (Bld) 0.5 % Low 0.9 - 7.0 % [facility] Erythrocyte distribution width (RBC) [Ratio] 20.8 % High 11.0 - 15.0 % [facility] Hematocrit (Bld) [Volume fraction] 40.4 % Low 42.0 - 54.0 % [facility] Hemoglobin (Bld) [Mass/Vol] 11.3 g/dL Low 14.0 - 18.0 g/dL [facility] IMMATURE GRANULOCYTES ABS AUTO 0.02 [facility] Immature granulocytes/100 WBC (Bld) 0.3 % 0.0 - 0.5 % [facility] Interpretation and review of laboratory results Abnormal [facility] LYMPHOCYTES ABSOLUTE AUTO 1.6 [facility] Lymphocytes/100 WBC (Bld) 26.3 % 20.5 - 60.0 % [facility] MCH (RBC) [Entitic mass] 18.8 pg Low 25.9 - 34.0 pg [facility] MCHC (RBC) [Mass/Vol] 28 g/dL Low 29.9 - 35.2 g/dL [facility] MCV (RBC) [Entitic vol] 67.1 fL Low 80.0 - 94.0 fL [facility] MONOCYTES ABSOLUTE AUTO 1 High [facility] Monocytes/100 WBC (Bld) 16 % High 1.7 - 12.0 % [facility] NEUTROPHILS ABSOLUTE AUTO 3.5 [facility] Neutrophils/100 WBC (Bld) 56.2 % 43.0 - 75.0 % [facility] Platelet mean volume (Bld) [Entitic vol] 10.3 fL 9.5 - 13.5 fL [facility] EO # 0 [facility] PLT 291 [facility] RBC 6.02 [facility] Comment on above: 2+ OVALOCYTES [facility] WBC 6.1 [facility] ALL CBC WITH AUTO DIFFon Erythrocyte distribution width (RBC) [Ratio] 21.2 % High 11.0 - 15.0 % [facility] Hematocrit (Bld) [Volume fraction] 40.1 % Low 42.0 - 54.0 % [facility] Hemoglobin (Bld) [Mass/Vol] 11.1 g/dL Low 14.0 - 18.0 g/dL [facility] Interpretation and review of laboratory results Abnormal [facility] MCH (RBC) [Entitic mass] 18.6 pg Low 25.9 - 34.0 pg [facility] MCHC (RBC) [Mass/Vol] 27.7 g/dL Low 29.9 - 35.2 g/dL [facility] MCV (RBC) [Entitic vol] 67.1 fL Low 80.0 - 94.0 fL [facility] Platelet mean volume (Bld) [Entitic vol] 9.5 fL 9.5 - 13.5 fL [facility] PLT 269 [facility] RBC 5.98 [facility] WBC 6.3 [facility] ALL CBC WITH AUTO DIFFon BASOPHILS ABSOLUTE AUTO 0 [facility] Basophils/100 WBC (Bld) 0.8 % 0.2 - 2.0 % [facility] Eosinophils/100 WBC (Bld) 1 % 0.9 - 7.0 % [facility] Erythrocyte distribution width (RBC) [Ratio] 21.2 % High 11.0 - 15.0 % [facility] Hematocrit (Bld) [Volume fraction] 38.6 % Low 42.0 - 54.0 % [facility] Hemoglobin (Bld) [Mass/Vol] 10.5 g/dL Low 14.0 - 18.0 g/dL [facility] IMMATURE GRANULOCYTES ABS AUTO 0.01 [facility] Immature granulocytes/100 WBC (Bld) 0.2 % 0.0 - 0.5 % [facility] Interpretation and review of laboratory results Abnormal [facility] LYMPHOCYTES ABSOLUTE AUTO 1.3 [facility] Lymphocytes/100 WBC (Bld) 25.9 % 20.5 - 60.0 % [facility] MCH (RBC) [Entitic mass] 18.1 pg Low 25.9 - 34.0 pg [facility] MCHC (RBC) [Mass/Vol] 27.2 g/dL Low 29.9 - 35.2 g/dL [facility] MCV (RBC) [Entitic vol] 66.4 fL Low 80.0 - 94.0 fL [facility] MONOCYTES ABSOLUTE AUTO 0.7 [facility] Monocytes/100 WBC (Bld) 13.7 % High 1.7 - 12.0 % [facility] NEUTROPHILS ABSOLUTE AUTO 2.9 [facility] Neutrophils/100 WBC (Bld) 58.4 % 43.0 - 75.0 % [facility] EO # 0.1 [facility] PLT 269 [facility] TB RBC 5.81 [facility] Comment on above: HYPOCHROMASIA 2+ OVALOCYTOSIS 2+ ANISOCYTOSIS 2+ TBH WBC 4.9 [facility] ALL CBC WITH AUTO DIFFon BASOPHILS ABSOLUTE AUTO 0 [facility] Basophils/100 WBC (Bld) 0.3 % 0.2 - 2.0 % [facility] Eosinophils/100 WBC (Bld) 0.6 % Low 0.9 - 7.0 % [facility] Erythrocyte distribution width (RBC) [Ratio] 21.9 % High 11.0 - 15.0 % [facility] Hematocrit (Bld) [Volume fraction] 39.7 % Low 42.0 - 54.0 % [facility] Hemoglobin (Bld) [Mass/Vol] 10.7 g/dL Low 14.0 - 18.0 g/dL [facility] IMMATURE GRANULOCYTES ABS AUTO 0.01 [facility] Immature granulocytes/100 WBC (Bld) 0.1 % 0.0 - 0.5 % [facility] Interpretation and review of laboratory results Abnormal [facility] LYMPHOCYTES ABSOLUTE AUTO 1.8 [facility] Lymphocytes/100 WBC (Bld) 27.6 % 20.5 - 60.0 % [facility] MCH (RBC) [Entitic mass] 17.5 pg Low 25.9 - 34.0 pg [facility] MCHC (RBC) [Mass/Vol] 27 g/dL Low 29.9 - 35.2 g/dL [facility] MCV (RBC) [Entitic vol] 64.8 fL Low 80.0 - 94.0 fL [facility] MONOCYTES ABSOLUTE AUTO 0.9 High [facility] Monocytes/100 WBC (Bld) 13.8 % High 1.7 - 12.0 % [facility] NEUTROPHILS ABSOLUTE AUTO 3.8 [facility] Neutrophils/100 WBC (Bld) 57.6 % 43.0 - 75.0 % [facility] Platelet mean volume (Bld) [Entitic vol] 9.6 fL 9.5 - 13.5 fL [facility] EO # 0 [facility] PLT 316 [facility] RBC 6.13 High [facility] Comment on above: HYPOCHROMASIA 1+ MICROCYTOSIS 2+ ANISOCYTOSIS 2+ OVALOCYTES 1+ TBH WBC 6.7 [facility] ALL CBC WITH AUTO DIFFon BASOPHILS ABSOLUTE AUTO 0.0 [facility] Basophils/100 WBC (Bld) 0.4 % 0.2 - 2.0 % [facility] Eosinophils/100 WBC (Bld) 0.4 % Low 0.9 - 7.0 % [facility] Erythrocyte distribution width (RBC) [Ratio] 22.1 % High 11.0 - 15.0 % [facility] Hematocrit (Bld) [Volume fraction] 38.7 % Low 42.0 - 54.0 % [facility] Hemoglobin (Bld) [Mass/Vol] 10.5 g/dL Low 14.0 - 18.0 g/dL [facility] IMMATURE GRANULOCYTES ABS AUTO 0.01 [facility] Immature granulocytes/100 WBC (Bld) 0.2 % 0.0 - 0.5 % [facility] Interpretation and review of laboratory results Abnormal [facility] LYMPHOCYTES ABSOLUTE AUTO 1.8 [facility] Lymphocytes/100 WBC (Bld) 31.6 % 20.5 - 60.0 % [facility] MCH (RBC) [Entitic mass] 17.5 pg Low 25.9 - 34.0 pg [facility] MCHC (RBC) [Mass/Vol] 27.1 g/dL Low 29.9 - 35.2 g/dL [facility] MCV (RBC) [Entitic vol] 64.4 fL Low 80.0 - 94.0 fL [facility] MONOCYTES ABSOLUTE AUTO 0.7 [facility] Monocytes/100 WBC (Bld) 11.5 % 1.7 - 12.0 % [facility] NEUTROPHILS ABSOLUTE AUTO 3.2 [facility] Neutrophils/100 WBC (Bld) 55.9 % 43.0 - 75.0 % [facility] Platelet mean volume (Bld) [Entitic vol] 9.2 fL Low 9.5 - 13.5 fL [facility] TBH EO # 0.0 [facility] TB PLT 284 [facility] RBC 6.01 [facility] WBC 5.7 [facility] BASIC METABOLIC PANLon 01-09 Anion gap [Moles/Vol] 8 mmol/L Normal 5-15 [facility] Comment on above: Performed By: #### Brigitte BRYANT [facility], #### [facility] ([id number]) [address], [address] [place] [address] Calcium [Mass/Vol] 8.5 mg/dL Normal 8.5-10.5 [facility] Comment on above: Performed By: #### ANDRES Briggs [facility], #### [facility] ([id number]) [address], [address] [place] [address] Chloride [Moles/Vol] 106 mmol/L Normal 98-109 [facility] Comment on above: Performed By: #### ANDRES Briggs BCA, #### [facility] ([id number]) [address], [address] [place] [address] CO2 [Moles/Vol] 28 mmol/L Normal 22-32 [facility] Comment on above: Performed By: #### ANDRES Briggs BCA, #### [facility] ([id number]) [address], [facility] [address] [place] [address] Creatinine [Mass/Vol] 0.93 mg/dL Normal 0.60-1.30 [facility] Comment on above: Result Comment: METH OD TRACEABLE TO IDMS STANDARD Performed By: #### C ANDRES BRYANT, #### [facility] ([id number]) [address], [facility] [address] [place] [address] eGFR (CKD-EPI) NON-RACE DEPENDENT >90 Normal >59 [facility] Comment on above: Result Comment: Reported eGFR is based on the CKD-EPI 2020 equation that does not use a race coefficient. Performed By: #### C ANDRES BRYANT, #### [facility] ([id number]) [address], [facility] [address] [place] [address] Glucose [Mass/Vol] 87 mg/dL Normal 65-99 [facility] Comment on above: Performed By: #### Brigitte BRYANT [facility], #### [facility] ([id number]) [address] [address] [place] [address] Potassium [Moles/Vol] 3.9 mmol/L Normal 3.5-5.0 [facility] Comment on above: Performed By: #### C ANDRES BRYANT, #### [facility] ([id number]) [address] [address] [place] [address] Sodium [Moles/Vol] 142 mmol/L Normal 134-146 [facility] Comment on above: Performed By: #### C ANDRES BRYANT, #### [facility] ([id number]) [address] [address] [place] [address] Urea nitrogen [Mass/Vol] 13 mg/dL Normal 5-23 [facility] Comment on above: Performed By: #### C ANDRES BRYANT, #### [facility] ([id number]) [address], [address] [place] [address] CBC AND AUTO DIFFon 01-10-20 ABSOLUTE BASOPHIL 0.0 X10E9/L Normal 0.0-0.2 [facility] Comment on above: Performed By: #### ANDRES Briggs BCA, #### [facility] ([id number]) [address], [address] [place] [address] ABSOLUTE NEUTROPHIL 7.9 X10E9/L High 1.5-6.6 [facility] Comment on above: Performed By: #### ANDRES Briggs BCA, #### [facility] ([id number]) [address], [address] [place] [address] Basophils/100 WBC (Bld) 0.2 % Normal [facility] Comment on above: Performed By: #### ANDRES Briggs BCA, #### [facility] ([id number]) [address], [address] [place] [address] Eosinophils (Bld) [#/Vol] 0.0 10*3/uL Normal 0.0-0.4 [facility] Comment on above: Performed By: #### ANDRES Briggs BCA, #### [facility] ([id number]) [address], [address] [place] [address] Eosinophils/100 WBC (Bld) 0.2 % Normal [facility] Comment on above: Performed By: #### ANDRES Briggs BCA, #### [facility] ([id number]) [address], [address] [place] [address] Erythrocyte distribution width (RBC) [Ratio] 20.7 % High 11.5-15.0 [facility] Comment on above: Performed By: #### Brigitte BRYANT [facility], #### [facility] ([id number]) [address], [address] [place] [address] FRAGMENT 1+ Abnormal NONE [facility] Comment on above: Performed By: #### C ANDRES BRYANT, #### [facility] ([id number]) [address], [facility] [address] [place] [address] Hematocrit (Bld) [Volume fraction] 30.0 % Low 39-49 [facility] Comment on above: Performed By: #### ANDRES Briggs BCA, #### [facility] ([id number]) [address], [facility] [address] [place] [address] Hemoglobin (Bld) [Mass/Vol] 8.7 g/dL Low 13.0-17.0 [facility] Comment on above: Performed By: #### ANDRES Briggs BCA, #### [facility] ([id number]) [address], [facility] [address] [place] [address] HYPOCHROMIA 2+ Abnormal NONE [facility] Comment on above: Performed By: #### ANDRES Briggs BCA, #### [facility] ([id number]) [address], [facility] [address] [place] [address] Lymphocytes (Bld) [#/Vol] 2.6 10*3/uL Normal 1.0-3.5 [facility] Comment on above: Performed By: #### ANDRES Briggs BCA, #### [facility] ([id number]) [address], [facility] [address] [place] [address] Lymphocytes/100 WBC (Bld) 22.1 % Normal [facility] Comment on above: Performed By: #### ANDRES Briggs BCA, #### [facility] ([id number]) [address], [address] [place] [address] MCH (RBC) [Entitic mass] 16.7 pg Low 27-34 [facility] Comment on above: Performed By: #### C ANDRES BRYANT, #### [facility] ([id number]) [address], [address] [place] [address] MCHC (RBC) [Mass/Vol] 29.1 g/dL Low 32-36 [facility] Comment on above: Performed By: #### C MANNY, BMP, #### [facility] ([id number]) [address], [address] [place] [address] MCV (RBC) [Entitic vol] 58 fL Low 80-100 [facility] Comment on above: Performed By: #### Brigitte BRYANT, BMP, #### [facility] ([id number]) [address], [address] [place] [address] Monocytes (Bld) [#/Vol] 1.3 10*3/uL High 0-0.9 [facility] Comment on above: Performed By: #### Brigitte BRYANT, BMP, #### [facility] ([id number]) [address], [address] [place] [address] Monocytes/100 WBC (Bld) 11.2 % Normal [facility] Comment on above: Performed By: #### C MANNY, BMP, #### [facility] ([id number]) [address], [address] [place] [address] Neutrophils/100 WBC (Bld) 66.3 % Normal [facility] Comment on above: Performed By: #### Brigitte BRYANT, BMP, #### [facility] ([id number]) [address], [address] [place] [address] OVALOCYTE 2+ Abnormal NONE [facility] Comment on above: Performed By: #### Brigitte BRYANT, BMP, #### [facility] ([id number]) [address], [address] [place] [address] Platelet mean volume (Bld) [Entitic vol] 8.7 fL Normal 7-12 [facility] Comment on above: Performed By: #### ANDRES Briggs BCA, #### [facility] ([id number]) [address], [address] [place] [address] Platelets (Bld) [#/Vol] 326 10*3/uL Normal 150-450 [facility] Comment on above: Performed By: #### ANDRES Briggs BCA, #### [facility] ([id number]) [address], [facility] [address] [place] [address] RBC COUNT 5.21 X10E12/L Normal 4.10-5.70 [facility] Comment on above: Performed By: #### ANDRES Briggs BCA, #### [facility] ([id number]) [address], [facility] [address] [place] [address] WBC (Bld) [#/Vol] 11.9 10*3/uL High 4.0-11.0 [facility] Comment on above: Performed By: #### ANDRES Briggs BCA, #### [facility] ([id number]) [address], [address] [place] [address] MAGNESIUMon 01-10-2024 Magnesium [Mass/Vol] 2.0 mg/dL Normal 1.8-2.6 [facility] Comment on above: Performed By: #### ANDRES Briggs BCA, #### [facility] ([id number]) [address], [address] [place] [address] BASIC METABOLIC PANLon 01-08 Anion gap [Moles/Vol] 9 mmol/L Normal 5-15 [facility] Comment on above: Performed By: #### ANDRES Briggs BCA, #### [facility] ([id number]) [address], [address] [place] [address] Calcium [Mass/Vol] 8.8 mg/dL Normal 8.5-10.5 [facility] Comment on above: Performed By: #### C ANDRES BRYANT, #### [facility] ([id number]) [address], [facility] [address] [place] [address] Chloride [Moles/Vol] 107 mmol/L Normal 98-109 [facility] Comment on above: Performed By: #### C MANNY [facility], #### [facility] ([id number]) [address], [facility] [address] [place] [address] CO2 [Moles/Vol] 25 mmol/L Normal 22-32 [facility] Comment on above: Performed By: #### C ANDRES BRYANT, #### [facility] ([id number]) [address], [facility] [address] [place] [address] Creatinine [Mass/Vol] 0.96 mg/dL Normal 0.60-1.30 [facility] Comment on above: Result Comment: METH OD TRACEABLE TO IDMS STANDARD Performed By: #### C ANDRES BRYANT, #### [facility] ([id number]) [address], [facility] [address] [place] [address] eGFR (CKD-EPI) NON-RACE DEPENDENT >90 Normal >59 [facility] Comment on above: Result Comment: Reported eGFR is based on the CKD-EPI 2020 equation that does not use a race coefficient. Performed By: #### C ANDRES BRYANT, #### [facility] ([id number]) [address], [facility] [address] [place] [address] Glucose [Mass/Vol] 117 mg/dL High 65-99 [facility] Comment on above: Performed By: #### C MANNY BMP, #### [facility] ([id number]) [address], [address] [place] [address] Potassium [Moles/Vol] 4.5 mmol/L Normal 3.5-5.0 [facility] Comment on above: Performed By: #### ANDRES Briggs BCA, #### [facility] ([id number]) [address], [address] [place] [address] Sodium [Moles/Vol] 141 mmol/L Normal 134-146 [facility] Comment on above: Performed By: #### ANDRES Briggs BCA, #### [facility] ([id number]) [address], [address] [place] [address] Urea nitrogen [Mass/Vol] 19 mg/dL Normal 5-23 [facility] Comment on above: Performed By: #### ANDRES Briggs BCA, #### [facility] ([id number]) [address], [address] [place] [address] CBC AND AUTO DIFFon 01-09-20 24 ACANTHOCYTE 2+ Abnormal NONE [facility] Comment on above: Performed By: #### ANDRES Briggs BCA, #### [facility] ([id number]) [address], [address] [place] [address] Erythrocyte distribution width (RBC) [Ratio] 21.0 % High 11.5-15.0 [facility] Comment on above: Performed By: #### ANDRES Briggs BCA, #### [facility] ([id number]) [address], [address] [place] [address] FRAGMENT 1+ Abnormal NONE [facility] Comment on above: Performed By: #### ANDRES Briggs BCA, #### [facility] ([id number]) [address], [address] [place] [address] Hematocrit (Bld) [Volume fraction] 32.9 % Low 39-49 [facility] Comment on above: Performed By: #### ANDRES Briggs BCA, #### [facility] ([id number]) [address], [address] [place] [address] Hemoglobin (Bld) [Mass/Vol] 9.4 g/dL Low 13.0-17.0 [facility] Comment on above: Performed By: #### Brigitte BRYANT, BMP, #### [facility] ([id number]) [address], [address] [place] [address] HYPOCHROMIA 2+ Abnormal NONE [facility] [facility] Comment on above: Performed By: #### Brigitte BRYANT BMP, #### [facility] ([id number]) [address], [facility] [address] [place] [address] Lymphocytes (Bld) [#/Vol] 0.6 10*3/uL Low 1.0-3.5 [facility] Comment on above: Performed By: #### Brigitte BRYANT [facility], #### [facility] ([id number]) [address], [address] [place] [address] Lymphocytes/100 WBC (Bld) 4.0 % Normal [facility] Comment on above: Performed By: #### Brigitte BRYANT BMP, #### [facility] ([id number]) [address], [address] [place] [address] MCH (RBC) [Entitic mass] 16.4 pg Low 27-34 [facility] Comment on above: Performed By: #### Brigitte BRYANT, BMP, #### [facility] ([id number]) [address], [address] [place] [address] MCHC (RBC) [Mass/Vol] 28.6 g/dL Low 32-36 [facility] Comment on above: Performed By: #### Brigitte BRYANT, BMP, #### [facility] ([id number]) [address], [address] [place] [address] MCV (RBC) [Entitic vol] 57 fL Low 80-100 [facility] Comment on above: Performed By: #### ANDRES Briggs BCA, #### [facility] ([id number]) [address], [address] [place] [address] Monocytes (Bld) [#/Vol] 0.5 10*3/uL Normal 0-0.9 [facility] Comment on above: Performed By: #### ANDRES Briggs BCA, #### [facility] ([id number]) [address], [address] [place] [address] Monocytes/100 WBC (Bld) 3.0 % Normal [facility] Comment on above: Performed By: #### ANDRES Briggs BCA, #### [facility] ([id number]) [address], [address] [place] [address] Neutrophils (Bld) [#/Vol] 14.5 10*3/uL High 1.5-6.6 [facility] Comment on above: Performed By: #### ANDRES Briggs BCA, #### [facility] ([id number]) [address], [address] [place] [address] OVALOCYTE 2+ Abnormal NONE [facility] Comment on above: Performed By: #### ANDRES Briggs BCA, #### [facility] ([id number]) [address], [address] [place] [address] Platelet mean volume (Bld) [Entitic vol] 8.7 fL Normal 7-12 [facility] Comment on above: Performed By: #### ANDRES Briggs BCA, #### [facility] ([id number]) [address], [address] [place] [address] Platelets (Bld) [#/Vol] 347 10*3/uL Normal 150-450 [facility] Comment on above: Performed By: #### ANDRES Briggs BCA, #### [facility] ([id number]) [address], [address] [place] [address] POLYCHROMASIA 1+ Abnormal NONE [facility] Comment on above: Performed By: #### ANDRES Briggs BCA, #### [facility] ([id number]) [address], [address] [place] [address] RBC COUNT 5.76 X10E12/L High 4.10-5.70 [facility] Comment on above: Performed By: #### ANDRES Briggs BCA, #### [facility] ([id number]) [address], [address] [place] [address] SEG NEUTROPHIL 93.0 % Normal [facility] Comment on above: Performed By: #### ANDRES Briggs BCA, #### [facility] ([id number]) [address], [address] [place] [address] TEARDROP 1+ Abnormal NONE [facility] Comment on above: Performed By: #### ANDRES Briggs BCA, #### [facility] ([id number]) [address], [address] [place] [address] WBC (Bld) [#/Vol] 15.6 10*3/uL High 4.0-11.0 [facility] Comment on above: Performed By: #### ANDRES Briggs BCA, #### [facility] ([id number]) [address], [address] [place] [address] MAGNESIUMon 01-09-2024 Magnesium [Mass/Vol] 2.0 mg/dL Normal 1.8-2.6 [facility] Comment on above: Performed By: #### ANDRES Briggs BCA, #### [facility] ([id number]) [address] [place] [address], [address] [place] [address] Surgical Pathologyon 024 Surgical Pathology Normal [facility] Comment on above: Result Comment: [facility] [address] [place] [address] Surgical Pathology Consultation Patient Name:ADDIE COLBERTOB:2000 (Age: 23)Gender:MTaken:01/09/2024eported:01/13/2024hysician(s):Pushpa Silva MD ([phone])Copy To: Rec. #:[id number]: #[id number] Final Pathologic Diagnosis Rectosigmoidectomy: Mucosal ischemic change with superficial mucosal necrosis, acute inflammation, hyalinization of lamina propria and atrophic crypts. Strands of smooth muscle extending into lamina propria with surface erosion compatible with prolapse changes. No malignancy identified. Report Electronically Signed Out ssi/01/13/2024Suangelita Cortez M.D. Interpretation performed at [facility], [address] [place] [address], License number: [id number]. Clinical History Rectal prolapse, ischemic rectum. Gross [...] sections of proximal margin G edematous wall (7,ss,[id number], m1) MD. pacheco/01/09/2024GP Specimen(s) Received Rectum and sigmoid Fee Codes(s): 1; 81668 CBC AND AUTO DIFFon 01-08-20 24 ABSOLUTE BASOPHIL 0.1 X10E9/L Normal 0.0-0.2 [facility] Comment on above: Performed By: #### P INR, 94935-4, CMP, CBCA #### [facility] ([id number]) [address] [place] [address] ABSOLUTE NEUTROPHIL 14.8 X10E9/L High 1.5-6.6 [facility] Comment on above: Performed By: #### P INR, 74812-1, CMP, CBCA #### [facility] ([id number]) [address] [place] [address] Basophils/100 WBC (Bld) 0.3 % Normal [facility] Comment on above: Performed By: #### P INR, 17092-1, CMP, CBCA #### [facility] ([id number]) [address] [place] [address] Eosinophils (Bld) [#/Vol] 0.0 10*3/uL Normal 0.0-0.4 [facility] Comment on above: Performed By: #### P INR, 75566-1, CMP, CBCA #### [facility] ([id number]) [address] [place] [address] Eosinophils/100 WBC (Bld) 0.0 % Normal [facility] Comment on above: Performed By: #### P INR, 13406-6, CMP, CBCA #### [facility] ([id number]) [address] [place] [address] Erythrocyte distribution width (RBC) [Ratio] 20.9 % High 11.5-15.0 [facility] Comment on above: Performed By: #### P INR, 55492-2, CMP, CBCA #### [facility] ([id number]) [address] [place] [address] Hematocrit (Bld) [Volume fraction] 33.4 % Low 39-49 [facility] Comment on above: Performed By: #### P INR, 06954-9, CMP, CBCA #### [facility] ([id number]) [address] [place] [address] Hemoglobin (Bld) [Mass/Vol] 9.5 g/dL Low 13.0-17.0 [facility] Comment on above: Performed By: #### P INR, 85219-7, CMP, CBCA #### [facility] ([id number]) [address] [place] [address] Lymphocytes (Bld) [#/Vol] 0.4 10*3/uL Low 1.0-3.5 [facility] Comment on above: Performed By: #### P INR, 58568-6, CMP, CBCA #### [facility] ([id number]) [address] [place] [address] Lymphocytes/100 WBC (Bld) 2.6 % Normal [facility] Comment on above: Performed By: #### P INR, 30836-4, CMP, CBCA #### [facility] ([id number]) [address] [place] [address] MCH (RBC) [Entitic mass] 16.4 pg Low 27-34 [facility] Comment on above: Performed By: #### P INR, 52485-5, CMP, CBCA #### [facility] ([id number]) [address] [place] [address] MCHC (RBC) [Mass/Vol] 28.6 g/dL Low 32-36 [facility] Comment on above: Performed By: #### P INR, 60298-1, CMP, CBCA #### [facility] ([id number]) [address] [place] [address] MCV (RBC) [Entitic vol] 58 fL Low 80-100 [facility] Comment on above: Performed By: #### P INR, 34095-0, CMP, CBCA #### [facility] ([id number]) [address] [place] [address] Monocytes (Bld) [#/Vol] 1.4 10*3/uL High 0-0.9 [facility] Comment on above: Performed By: #### P INR, 50676-2, CMP, CBCA #### [facility] ([id number]) [address] [place] [address] Monocytes/100 WBC (Bld) 8.5 % Normal [facility] Comment on above: Performed By: #### P INR, 63206-1, CMP, CBCA #### [facility] ([id number]) [address] [place] [address] Neutrophils/100 WBC (Bld) 88.6 % Normal [facility] Comment on above: Performed By: #### P INR, 66151-8, CMP, CBCA #### [facility] ([id number]) [address] [place] [address] Platelet mean volume (Bld) [Entitic vol] 8.7 fL Normal 7-12 [facility] Comment on above: Performed By: #### P INR, 74049-3, CMP, CBCA #### [facility] ([id number]) [address] [place] [address] Platelets (Bld) [#/Vol] 366 10*3/uL Normal 150-450 [facility] Comment on above: Performed By: #### P INR, 31523-5, CMP, CBCA #### [facility] ([id number]) [address] [place] [address] 65[address] RBC COUNT 5.81 X10E12/L High 4.10-5.70 [facility] Comment on above: Performed By: #### P INR, 26180-2, CMP, CBCA #### [facility] ([id number]) [address] [place] [address]687 WBC (Bld) [#/Vol] 16.7 10*3/uL High 4.0-11.0 [facility] Comment on above: Performed By: #### P INR, 02827-2, CMP, CBCA #### [facility] ([id number]) [address] [place] [address] COMPREHENSIVE METABOLIC PANE Angel 01-08-2024 Albumin [Mass/Vol] 4.3 g/dL Normal 3.2-5.3 [facility] Comment on above: Performed By: #### P INR, 89514-7, CMP, CBCA #### [facility] ([id number]) [address] [place] [address] 25123 ALP [Catalytic activity/Vol] 67 U/L Normal 39-130 [facility] Comment on above: Performed By: #### P INR, 93473-3, CMP, CBCA #### [facility] ([id number]) [address] [place] [address] 07652 ALT [Catalytic activity/Vol] 19 U/L Normal 0-40 [facility] Comment on above: Performed By: #### P INR, 70399-0, CMP, CBCA #### [facility] ([id number]) [address] [place] [address] 30812 Anion gap [Moles/Vol] 6 mmol/L Normal 5-15 [facility] Comment on above: Performed By: #### P INR, 81006-6, CMP, CBCA #### [facility] ([id number]) [address] [place] [address] 93888 AST [Catalytic activity/Vol] 26 U/L Normal 0-41 [facility] Comment on above: Performed By: #### P INR, 86300-7, CMP, CBCA #### [facility] ([id number]) [address] [place] [address] 87562 Bilirubin [Mass/Vol] 0.5 mg/dL Normal 0.3-1.2 [facility] Comment on above: Performed By: #### P INR, 60069-8, CMP, CBCA #### [facility] ([id number]) [address] [place] [address] 65833 Calcium [Mass/Vol] 8.8 mg/dL Normal 8.5-10.5 [facility] Comment on above: Performed By: #### P INR, 28108-1, CMP, CBCA #### [facility] ([id number]) [address] [place] [address] 93352 Chloride [Moles/Vol] 102 mmol/L Normal 98-109 [facility] Comment on above: Performed By: #### P INR, 90171-0, CMP, CBCA #### [facility] ([id number]) [address] [place] [address] 77164 CO2 [Moles/Vol] 23 mmol/L Normal 22-32 [facility] Comment on above: Performed By: #### P INR, 47549-0, CMP, CBCA #### [facility] ([id number]) [address] [place] [address] 10527 Creatinine [Mass/Vol] 1.03 mg/dL Normal 0.70-1.20 [facility] Comment on above: Result Comment: METH OD TRACEABLE TO IDMS STANDARD Performed By: #### P INR, 60026-6, CMP, CBCA #### [facility] ([id number]) [address] [place] [address] 38652 eGFR (CKD-EPI) NON-RACE DEPENDENT >90 Normal >59 [facility] Comment on above: Result Comment: Reported eGFR is based on the CKD-EPI 2020 equation that does not use a race coefficient. Performed By: #### P INR, 32716-3, CMP, CBCA #### [facility] ([id number]) [address] [place] [address] 48158 Glucose [Mass/Vol] 114 mg/dL High 65-99 [facility] Comment on above: Performed By: #### P INR, 19740-1, CMP, CBCA #### [facility] ([id number]) [address] [place] [address] 04092 Potassium [Moles/Vol] 4.0 mmol/L Normal 3.5-5.0 [facility] Comment on above: Performed By: #### P INR, 05189-9, CMP, CBCA #### [facility] ([id number]) [address] [place] [address] 23464 Protein [Mass/Vol] 6.9 g/dL Normal 6.0-8.0 [facility] Comment on above: Performed By: #### P INR, 78362-5, CMP, CBCA #### [facility] ([id number]) [address] [place] [address] 33807 Sodium [Moles/Vol] 131 mmol/L Low 134-146 [facility] Comment on above: Performed By: #### P INR, 72525-4, CMP, CBCA #### [facility] ([id number]) [address] [place] [address] 55594 Urea nitrogen [Mass/Vol] 17 mg/dL Normal 5-23 [facility] Comment on above: Performed By: #### P INR, 26524-4, CMP, CBCA #### [facility] ([id number]) [address] [place] [address] 60622 PROTIME AND INRon 01-08-2024 INR Coag (PPP) [Relative time] 1.0 {INR} Normal 0.8-1.1 [facility] Comment on above: Performed By: #### P INR, 06834-4, CMP, CBCA #### [facility] ([id number]) [address] [place] [address] 47612 PT Coag (PPP) [Time] 12.0 s Normal 9.8-13.2 [facility] Comment on above: Result Comment: NEW REFERENCE RANGE Performed By: #### P INR, 07534-7, CMP, CBCA #### [facility] ([id number]) [address] [place] [address] 90661 aPTT Coag (PPP) [Time]on aPTT Coag (Bld) [Time] 37 s Normal 26-37 [facility] Comment on above: Result Comment: NEW REFERENCE RANGE Performed By: #### P INR, 80255-5, CMP, CBCA #### [facility] ([id number]) [address] [place] [address] 15561 CBC AUTO DIFFon 03-26-2023 BASO # 0.0 103/ul Normal 0.0-0.1 [facility] Comment on above: Performed By: #### C BC #### [facility] [address] [address] [address] Sonido Bejarano Basophils/100 WBC (Bld) 0.7 % Normal 0.2-2.0 [facility] Comment on above: Performed By: #### C BC #### [facility] [address] [address] [address] Sonido Bejarano EO # 0.1 103/ul Normal 0.0-0.7 [facility] Comment on above: Performed By: #### C BC #### [facility] [address] [place] [address] Dr. Sonido Bejraano Eosinophils/100 WBC (Bld) 1.0 % Normal 0.9-7.0 [facility] Comment on above: Performed By: #### C BC #### [facility] [address] [place] [address] Dr. Sonido Bejarano Erythrocyte distribution width (RBC) [Ratio] 22.3 % Critically high 11.0-15.0 [facility] Comment on above: Performed By: #### C BC #### [facility] [address] [place] [address] Dr. Sonido Bejarano Hematocrit (Bld) [Volume fraction] 32.0 % Critically low 42.0-54.0 [facility] Comment on above: Performed By: #### C BC #### [facility] [address] [place] [address] Dr. Sonido Bejarano Hemoglobin (Bld) [Mass/Vol] 8.3 g/dL Critically low 14.0-18.0 [facility] Comment on above: Performed By: #### C BC #### [facility] [address] [place] [address] Dr. Sonido Bejarano IG # 0.01 10e3/ul Normal 0.00-0.03 [facility] Comment on above: Performed By: #### C BC #### [facility] [address] [place] [address] Dr. Sonido Bejarano IG % 0.2 % Normal 0.0-0.5 [facility] Comment on above: Performed By: #### C BC #### [facility] [address] [place] [address] Dr. Sonido Bejarano LYMPH # 1.2 103/ul Normal 1.2-3.8 [facility] Comment on above: Performed By: #### C BC #### [facility] [address] [place] [address] Dr. Sonido Bejarano Lymphocytes/100 WBC (Bld) 20.1 % Critically low 20.5-60.0 [facility] Comment on above: Performed By: #### C BC #### [facility] [address] [place] [address] Dr. Sonido Bejarano MANUAL DIFF REQ NO Normal [facility] Comment on above: Performed By: #### C BC #### [facility] [address] [place] [address] Dr. Sonido Bejarano MCH (RBC) [Entitic mass] 15.7 pg Critically low 25.9-34.0 [facility] Comment on above: Performed By: #### C BC #### [facility] [address] [place] [address] Dr. Sonido Bejarano MCHC (RBC) [Mass/Vol] 25.9 g/dL Critically low 29.9-35.2 [facility] Comment on above: Performed By: #### C BC #### [facility] [address] [place] [address] Dr. Sonido Bejarano MCV (RBC) [Entitic vol] 60.6 fL Critically low 80.0-94.0 [facility] Comment on above: Performed By: #### C BC #### [facility] [address] [place] [address] Dr. Sonido Bejarano MONO # 0.7 103/ul Normal 0.3-0.8 [facility] Comment on above: Performed By: #### C BC #### [facility] [address] [place] [address] Dr. Sonido Bejarano Monocytes/100 WBC (Bld) 12.2 % Critically high 1.7-12.0 [facility] Comment on above: Performed By: #### C BC #### [facility] [address] [place] [address] Dr. Sonido Bejarano NEUT # 3.8 103/ul Normal 1.4-6.5 [facility] Comment on above: Performed By: #### C BC #### [facility] [address] [place] [address] Dr. Sonido Bejarano Neutrophils/100 WBC (Bld) 65.8 % Normal 43.0-75.0 [facility] Comment on above: Performed By: #### C BC #### [facility] [address] [place] [address] Dr. Sonido Bejarano Platelet mean volume (Bld) [Entitic vol] 9.2 fL Critically low 9.5-13.5 [facility] Comment on above: Performed By: #### C BC #### [facility] [address] [place] [address] Dr. Sonido Bejarano PLT 369 103/ul Normal 150-450 [facility] Comment on above: Performed By: #### C BC #### [facility] [address] [place] [address] Dr. Sonido Bejarano RBC 5.28 106/ul Normal 4.70-6.10 [facility] Comment on above: Performed By: #### C BC #### [facility] [address] [place] [address] Dr. Sonido Bejarano WBC 5.8 103/ul Normal 4.0-11.0 [facility] Comment on above: Performed By: #### C BC #### [facility] [address] [place] [address] Dr. Sonido Bejarano CBC AUTO DIFFon 02-19-2023 BASO # 0.0 103/ul Normal 0.0-0.1 [facility] Comment on above: Performed By: #### C BC #### [facility] [address] [place] [address] Dr. Sonido Bejarano Basophils/100 WBC (Bld) 0.7 % Normal 0.2-2.0 [facility] Comment on above: Performed By: #### C BC #### [facility] [address] [place] [address] Dr. Sonido Bejarano EO # 0.1 103/ul Normal 0.0-0.7 [facility] Comment on above: Performed By: #### C BC #### [facility] [address] [place] [address] Dr. Sonido Bejarano Eosinophils/100 WBC (Bld) 1.1 % Normal 0.9-7.0 [facility] Comment on above: Performed By: #### C BC #### [facility] [address] [place] [address] Dr. Sonido Bejarano Erythrocyte distribution width (RBC) [Ratio] 22.7 % Critically high 11.0-15.0 [facility] Comment on above: Performed By: #### C BC #### [facility] [address] [place] [address] Dr. Sonido Bejarano Hematocrit (Bld) [Volume fraction] 32.9 % Critically low 42.0-54.0 [facility] Comment on above: Performed By: #### C BC #### [facility] [address] [place] [address] Dr. Sonido Bejarano Hemoglobin (Bld) [Mass/Vol] 8.2 g/dL Critically low 14.0-18.0 [facility] Comment on above: Performed By: #### C BC #### [facility] [address] [place] [address] Dr. Sonido Bejarano IG # 0.02 10e3/ul Normal 0.00-0.03 [facility] Comment on above: Performed By: #### C BC #### [facility] [address] [place] [address] Dr. Sonido Bejarano IG % 0.3 % Normal 0.0-0.5 [facility] Comment on above: Performed By: #### C BC #### [facility] [address] [place] [address] Dr. Sonido Bejarano LYMPH # 1.4 103/ul Normal 1.2-3.8 [facility] Comment on above: Performed By: #### C BC #### [facility] [address] [place] [address] Dr. Sonido Bejarano Lymphocytes/100 WBC (Bld) 22.8 % Normal 20.5-60.0 [facility] Comment on above: Performed By: #### C BC #### [facility] [address] [place] [address] Dr. Sonido Bejarano MANUAL DIFF REQ NO Normal [facility] Comment on above: Performed By: #### C BC #### [facility] [address] [place] [address] Dr. Sonido Bejarano MCH (RBC) [Entitic mass] 15.3 pg Critically low 25.9-34.0 [facility] Comment on above: Performed By: #### C BC #### [facility] [address] [place] [address] Dr. Sonido Bejarano MCHC (RBC) [Mass/Vol] 24.9 g/dL Critically low 29.9-35.2 [facility] Comment on above: Performed By: #### C BC #### [facility] [address] [place] [address] Dr. Sonido Bejarnao MCV (RBC) [Entitic vol] 61.3 fL Critically low 80.0-94.0 [facility] Comment on above: Performed By: #### C BC #### [facility] [address] [place] [address] Dr. Sonido Bejarano MONO # 0.7 103/ul Normal 0.3-0.8 [facility] Comment on above: Performed By: #### C BC #### [facility] [address] [place] [address] Dr. Sonido Bejarano Monocytes/100 WBC (Bld) 11.6 % Normal 1.7-12.0 [facility] Comment on above: Performed By: #### C BC #### [facility] [address] [place] [address] Dr. Sonido Bejarano NEUT # 3.9 103/ul Normal 1.4-6.5 [facility] Comment on above: Performed By: #### C BC #### [facility] [address] [place] [address] Dr. Sonido Bejarano Neutrophils/100 WBC (Bld) 63.5 % Normal 43.0-75.0 [facility] Comment on above: Performed By: #### C BC #### [facility] [address] [place] [address] Dr. Sonido Bejarano Platelet mean volume (Bld) [Entitic vol] 9.3 fL Critically low 9.5-13.5 [facility] Comment on above: Performed By: #### C BC #### [facility] [address] [place] [address] Dr. Sonido Bejarano PLT 394 103/ul Normal 150-450 [facility] Comment on above: Performed By: #### C BC #### [facility] [address] [place] [address] Dr. Sonido Bejarano RBC 5.37 106/ul Normal 4.70-6.10 [facility] Comment on above: Performed By: #### C BC #### [facility] [address] [place] [address] Dr. Sonido Bejarano WBC 6.1 103/ul Normal 4.0-11.0 [facility] Comment on above: Performed By: #### C BC #### [facility] [address] [place] [address] Dr. Sonido Bejarano CBC AUTO DIFFon 01-15-2023 BASO # 0.0 103/ul Normal 0.0-0.1 [facility] Comment on above: Performed By: #### C BC #### [facility] [address] [place] [address] Dr. Sonido Bejarano Basophils/100 WBC (Bld) 0.3 % Normal 0.2-2.0 [facility] Comment on above: Performed By: #### C BC #### [facility] [address] [place] [address] Dr. Sonido Bejarano EO # 0.0 103/ul Normal 0.0-0.7 [facility] Comment on above: Performed By: #### C BC #### [facility] [address] [place] [address] Dr. Sonido Bejarano Eosinophils/100 WBC (Bld) 0.4 % Critically low 0.9-7.0 [facility] Comment on above: Performed By: #### C BC #### [facility] [address] [place] [address] Dr. Sonido Bejarano Erythrocyte distribution width (RBC) [Ratio] 22.4 % Critically high 11.0-15.0 [facility] Comment on above: Performed By: #### C BC #### [facility] [address] [place] [address] Dr. Sonido Bejarano Hematocrit (Bld) [Volume fraction] 31.5 % Critically low 42.0-54.0 [facility] Comment on above: Performed By: #### C BC #### [facility] [address] [place] [address] Dr. Sonido Bejarano Hemoglobin (Bld) [Mass/Vol] 8.1 g/dL Critically low 14.0-18.0 [facility] Comment on above: Performed By: #### C BC #### [facility] [address] [place] [address] Dr. Sonido Bejarano IG # 0.02 10e3/ul Normal 0.00-0.03 [facility] Comment on above: Performed By: #### C BC #### [facility] [address] [place] [address] Dr. Sonido Bejarano IG % 0.3 % Normal 0.0-0.5 [facility] Comment on above: Performed By: #### C BC #### [facility] [address] [place] [address] Dr. Sonido Bejarano LYMPH # 1.3 103/ul Normal 1.2-3.8 [facility] Comment on above: Performed By: #### C BC #### [facility] [address] [place] [address] Dr. Sonido Bejarano Lymphocytes/100 WBC (Bld) 19.4 % Critically low 20.5-60.0 [facility] Comment on above: Performed By: #### C BC #### [facility] [address] [place] [address] Dr. Sonido Bejarano MANUAL DIFF REQ NO Normal [facility] Comment on above: Performed By: #### C BC #### [facility] [address] [place] [address] Dr. Sonido Bejarano MCH (RBC) [Entitic mass] 15.5 pg Critically low 25.9-34.0 [facility] Comment on above: Performed By: #### C BC #### [facility] [address] [place] [address] Dr. Sonido Bejarano MCHC (RBC) [Mass/Vol] 25.7 g/dL Critically low 29.9-35.2 [facility] Comment on above: Performed By: #### C BC #### [facility] [address] [place] [address] Dr. Sonido Bejarano MCV (RBC) [Entitic vol] 60.2 fL Critically low 80.0-94.0 [facility] Comment on above: Performed By: #### C BC #### [facility] [address] [place] [address] Dr. Sonido Bejarano MONO # 0.9 103/ul Critically high 0.3-0.8 [facility] Comment on above: Performed By: #### C BC #### [facility] [address] [place] [address] Dr. Sonido Bejarano Monocytes/100 WBC (Bld) 12.9 % Critically high 1.7-12.0 [facility] Comment on above: Performed By: #### C BC #### [facility] [address] [place] [address] Dr. Sonido Bejarano NEUT # 4.5 103/ul Normal 1.4-6.5 [facility] Comment on above: Performed By: #### C BC #### [facility] [address] [place] [address] Dr. Sonido Bejarano Neutrophils/100 WBC (Bld) 66.7 % Normal 43.0-75.0 [facility] Comment on above: Performed By: #### C BC #### [facility] [address] [place] [address] Dr. Sonido Bejarano Platelet mean volume (Bld) [Entitic vol] 9.2 fL Critically low 9.5-13.5 [facility] Comment on above: Performed By: #### C BC #### [facility] [address] [place] [address] Dr. Sonido Bejarano PLT 356 103/ul Normal 150-450 [facility] Comment on above: Performed By: #### C BC #### [facility] [address] [place] [address] Dr. Sonido Bejarano RBC 5.23 106/ul Normal 4.70-6.10 [facility] Comment on above: Result Comment: 2+ P OIKILOCYTOSIS 2+ ANISOCYTOSIS 2+ OVALOCYTE 1+ TEAR DROP CELL 2+ ACANTHOCYTE Performed By: #### C BC #### [facility] [address] [place] [address] Dr. Sonido Bejarano WBC 6.8 103/ul Normal 4.0-11.0 [facility] Comment on above: Performed By: #### C BC #### [facility] [address] [address] [address] Sonido Bejarano CBC AUTO DIFFon 12-20-2022 BASO # 0.0 103/ul Normal 0.0-0.1 [facility] Comment on above: Performed By: #### C BC #### [facility] [address] [place] [address] Dr. Sonido Bejarano Basophils/100 WBC (Bld) 0.5 % Normal 0.2-2.0 [facility] Comment on above: Performed By: #### C BC #### [facility] [address] [place] [address] Dr. Sonido Bejarano EO # 0.1 103/ul Normal 0.0-0.7 [facility] Comment on above: Performed By: #### C BC #### [facility] [address] [place] [address] Dr. Sonido Bejarano Eosinophils/100 WBC (Bld) 1.3 % Normal 0.9-7.0 [facility] Comment on above: Performed By: #### C BC #### [facility] [address] [place] [address] Dr. Sonido Bejarano Erythrocyte distribution width (RBC) [Ratio] 22.8 % Critically high 11.0-15.0 [facility] Comment on above: Performed By: #### C BC #### [facility] [address] [place] [address] Dr. Sonido Bejarano Hematocrit (Bld) [Volume fraction] 34.5 % Critically low 42.0-54.0 [facility] Comment on above: Performed By: #### C BC #### [facility] [address] [address] [address] Sonido Bejarano Hemoglobin (Bld) [Mass/Vol] 8.9 g/dL Critically low 14.0-18.0 [facility] Comment on above: Performed By: #### C BC #### [facility] [address] [address] [address] Sonido Bejarano IG # 0.01 10e3/ul Normal 0.00-0.03 [facility] Comment on above: Performed By: #### C BC #### [facility] [address] [place] [address] Dr. Sonido Bejarano IG % 0.2 % Normal 0.0-0.5 [facility] Comment on above: Performed By: #### C BC #### [facility] [address] [place] [address] Dr. Sonido Bejarano LYMPH # 1.0 103/ul Critically low 1.2-3.8 [facility] Comment on above: Performed By: #### C BC #### [facility] [address] [place] [address] Dr. Sonido Bejarano Lymphocytes/100 WBC (Bld) 18.3 % Critically low 20.5-60.0 [facility] Comment on above: Performed By: #### C BC #### [facility] [address] [place] [address] Dr. Sonido Bejarano MANUAL DIFF REQ NO Normal [facility] Comment on above: Performed By: #### C BC #### [facility] [address] [address] [address] Sonido Bejarano MCH (RBC) [Entitic mass] 15.6 pg Critically low 25.9-34.0 [facility] Comment on above: Performed By: #### C BC #### [facility] [address] [place] [address] Dr. Sonido Bejarano MCHC (RBC) [Mass/Vol] 25.8 g/dL Critically low 29.9-35.2 [facility] Comment on above: Performed By: #### C BC #### [facility] [address] [address] [address] Sonido Bejarano MCV (RBC) [Entitic vol] 60.6 fL Critically low 80.0-94.0 [facility] Comment on above: Performed By: #### C BC #### [facility] [address] [place] [address] Dr. Sonido Bejarano MONO # 0.7 103/ul Normal 0.3-0.8 [facility] Comment on above: Performed By: #### C BC #### [facility] [address] [place] [address] Dr. Sonido Bejarano Monocytes/100 WBC (Bld) 13.2 % Critically high 1.7-12.0 [facility] Comment on above: Performed By: #### C BC #### [facility] [address] [place] [address] Dr. Sonido Bejarano NEUT # 3.7 103/ul Normal 1.4-6.5 [facility] Comment on above: Performed By: #### C BC #### [facility] [address] [place] [address] Dr. Sonido Bejarano Neutrophils/100 WBC (Bld) 66.5 % Normal 43.0-75.0 [facility] Comment on above: Performed By: #### C BC #### [facility] [address] [place] [address] Dr. Sonido Bejarano Platelet mean volume (Bld) [Entitic vol] 9.6 fL Normal 9.5-13.5 [facility] Comment on above: Performed By: #### C BC #### [facility] [address] [place] [address] Dr. Sonido Bejarano PLT 441 103/ul Normal 150-450 [facility] Comment on above: Performed By: #### C BC #### [facility] [address] [place], [place] [id number] Dr. Sonido Bejarano RBC 5.69 106/ul Normal 4.70-6.10 [facility] Comment on above: Result Comment: Anis ocytosis 2+ Hypochromasia 2+ Poikilocytosis 2+ Ovalocytes 1+ Tear drop cells 1+ Acanthocytes 1+ Performed By: #### C BC #### [facility] [address] [place] [address] Dr. Sonido Bejarano WBC 5.5 103/ul Normal 4.0-11.0 [facility] Comment on above: Performed By: #### C BC #### [facility] [address] [place] [address] Dr. Sonido Bejarano CBC AUTO DIFFon 11-20-2022 BASO # 0.1 103/ul Normal 0.0-0.1 [facility] Comment on above: Performed By: #### C BC #### [facility] [address] [place] [address] Dr. Sonido Bejarano Basophils/100 WBC (Bld) 1.0 % Normal 0.2-2.0 [facility] Comment on above: Performed By: #### C BC #### [facility] [address] [place] [address] Dr. Sonido Bejarano EO # 0.1 103/ul Normal 0.0-0.7 [facility] Comment on above: Performed By: #### C BC #### [facility] [address] [place] [address] Dr. Sonido Bejarano Eosinophils/100 WBC (Bld) 2.1 % Normal 0.9-7.0 [facility] Comment on above: Performed By: #### C BC #### [facility] [address] [place] [address] Dr. Sonido Bejarano Erythrocyte distribution width (RBC) [Ratio] 23.0 % Critically high 11.0-15.0 [facility] Comment on above: Performed By: #### C BC #### [facility] [address] [place] [address] Dr. Sonido Bejarano Hematocrit (Bld) [Volume fraction] 32.6 % Critically low 42.0-54.0 [facility] Comment on above: Performed By: #### C BC #### [facility] [address] [place] [address] Dr. Sonido Bejarano Hemoglobin (Bld) [Mass/Vol] 8.0 g/dL Critically low 14.0-18.0 [facility] Comment on above: Performed By: #### C BC #### [facility] [address] [address] [address] Sonido Bejarano IG # 0.01 10e3/ul Normal 0.00-0.03 [facility] Comment on above: Performed By: #### C BC #### [facility] [address] [address] [address] Sonido Bejarano IG % 0.2 % Normal 0.0-0.5 [facility] Comment on above: Performed By: #### C BC #### [facility] [address] [place] [address] Dr. Sonido Bejarano LYMPH # 1.1 103/ul Critically low 1.2-3.8 [facility] Comment on above: Performed By: #### C BC #### [facility] [address] [place] [address] Dr. Sonido Bejarano Lymphocytes/100 WBC (Bld) 22.0 % Normal 20.5-60.0 [facility] Comment on above: Performed By: #### C BC #### [facility] [address] [place] [address] Dr. Sonido Bejarano MANUAL DIFF REQ NO Normal [facility] Comment on above: Performed By: #### C BC #### [facility] [address] [place] [address] Dr. Sonido Bejarano MCH (RBC) [Entitic mass] 15.6 pg Critically low 25.9-34.0 [facility] Comment on above: Performed By: #### C BC #### [facility] [address] [place] [address] Dr. Sonido Bejarano MCHC (RBC) [Mass/Vol] 24.5 g/dL Critically low 29.9-35.2 [facility] Comment on above: Performed By: #### C BC #### [facility] [address] [place] [address] Dr. Sonido Bejarano MCV (RBC) [Entitic vol] 63.4 fL Critically low 80.0-94.0 [facility] Comment on above: Performed By: #### C BC #### [facility] [address] [place] [address] Dr. Sonido Bejarano MONO # 0.6 103/ul Normal 0.3-0.8 [facility] Comment on above: Performed By: #### C BC #### [facility] [address] [place] [address] Dr. Sonido Bejarano Monocytes/100 WBC (Bld) 13.0 % Critically high 1.7-12.0 [facility] Comment on above: Performed By: #### C BC #### [facility] [address] [place] [address] Dr. Sonido Bejarano NEUT # 3.0 103/ul Normal 1.4-6.5 [facility] Comment on above: Performed By: #### C BC #### [facility] [address] [place] [address] Dr. Sonido Bjearano Neutrophils/100 WBC (Bld) 61.7 % Normal 43.0-75.0 [facility] Comment on above: Performed By: #### C BC #### [facility] [address] [place] [address] Dr. Sonido Bejarano Platelet mean volume (Bld) [Entitic vol] 8.6 fL Critically low 9.5-13.5 [facility] Comment on above: Performed By: #### C BC #### [facility] [address] [place] [address] Dr. Sonido Bejarano PLT 333 103/ul Normal 150-450 [facility] Comment on above: Performed By: #### C BC #### [facility] [address] [place] [address] Dr. Sonido Bejarano RBC 5.14 106/ul Normal 4.70-6.10 [facility] Comment on above: Performed By: #### C BC #### [facility] [address] [place] [address] Dr. Sonido Bejarano WBC 4.9 103/ul Normal 4.0-11.0 [facility] Comment on above: Performed By: #### C BC #### [facility] [address] [place] [address] Dr. Sonido Bejarano CBC AUTO DIFFon 10-11-2022 BASO # 0.0 103/ul Normal 0.0-0.1 [facility] Comment on above: Performed By: #### C BC #### [facility] [address] [place] [address] Dr. Sonido Bejarano Basophils/100 WBC (Bld) 0.8 % Normal 0.2-2.0 [facility] Comment on above: Performed By: #### C BC #### [facility] [address] [place] [address] Dr. Sonido Bejarano EO # 0.1 103/ul Normal 0.0-0.7 [facility] Comment on above: Performed By: #### C BC #### [facility] [address] [place] [address] Dr. Sonido Bejarano Eosinophils/100 WBC (Bld) 1.5 % Normal 0.9-7.0 [facility] Comment on above: Performed By: #### C BC #### [facility] [address] [place] [address] Dr. Sonido Bejarano Erythrocyte distribution width (RBC) [Ratio] 22.4 % Critically high 11.0-15.0 [facility] Comment on above: Performed By: #### C BC #### [facility] [address] [place] [address] Dr. Sonido Bejarano Hematocrit (Bld) [Volume fraction] 32.3 % Critically low 42.0-54.0 [facility] Comment on above: Performed By: #### C BC #### [facility] [address] [place] [address] Dr. Sonido Bejarano Hemoglobin (Bld) [Mass/Vol] 8.1 g/dL Critically low 14.0-18.0 [facility] Comment on above: Performed By: #### C BC #### [facility] [address] [place] [address] Dr. Sonido Bejarano IG # 0.01 10e3/ul Normal 0.00-0.03 [facility] Comment on above: Performed By: #### C BC #### [facility] [address] [place] [address] Dr. Sonido Bejarano IG % 0.2 % Normal 0.0-0.5 [facility] Comment on above: Performed By: #### C BC #### [facility] [address] [place] [address] Dr. Sonido Bejarano LYMPH # 1.2 103/ul Normal 1.2-3.8 [facility] Comment on above: Performed By: #### C BC #### [facility] [address] [place] [address] Dr. Sonido Bejarano Lymphocytes/100 WBC (Bld) 22.8 % Normal 20.5-60.0 [facility] Comment on above: Performed By: #### C BC #### [facility] [address] [place] [address] Dr. Sonido Bejarano MANUAL DIFF REQ NO Normal [facility] Comment on above: Performed By: #### C BC #### [facility] [address] [place] [address] Dr. Sonido Bejarano MCH (RBC) [Entitic mass] 15.1 pg Critically low 25.9-34.0 [facility] Comment on above: Performed By: #### C BC #### [facility] [address] [place] [address] Dr. Sonido Bejarano MCHC (RBC) [Mass/Vol] 25.1 g/dL Critically low 29.9-35.2 [facility] Comment on above: Performed By: #### C BC #### [facility] [address] [place] [address] Dr. Sonido Bejarano MCV (RBC) [Entitic vol] 60.0 fL Critically low 80.0-94.0 [facility] Comment on above: Performed By: #### C BC #### [facility] [address] [place] [address] Dr. Sonido Bejarano MONO # 0.7 103/ul Normal 0.3-0.8 [facility] Comment on above: Performed By: #### C BC #### [facility] [address] [place] [address] Dr. Sonido Bejarano Monocytes/100 WBC (Bld) 12.5 % Critically high 1.7-12.0 [facility] Comment on above: Performed By: #### C BC #### [facility] [address] [place] [address] Dr. Sonido Bejarano NEUT # 3.2 103/ul Normal 1.4-6.5 [facility] Comment on above: Performed By: #### C BC #### [facility] [address] [place] [address] Dr. Sonido Bejarano Neutrophils/100 WBC (Bld) 62.2 % Normal 43.0-75.0 [facility] Comment on above: Performed By: #### C BC #### [facility] [address] [place] [address] Dr. Sonido Bejarano Platelet mean volume (Bld) [Entitic vol] 8.6 fL Critically low 9.5-13.5 [facility] Comment on above: Performed By: #### C BC #### [facility] [address] [place] [address] Dr. Sonido Bejarano PLT 345 103/ul Normal 150-450 [facility] Comment on above: Performed By: #### C BC #### [facility] [address] [place] [address] Dr. Sonido Bejarano RBC 5.38 106/ul Normal 4.70-6.10 [facility] Comment on above: Performed By: #### C BC #### [facility] [address] [place] [address] Dr. Sondio Bejarano WBC 5.2 103/ul Normal 4.0-11.0 [facility] Comment on above: Performed By: #### C BC #### [facility] [address] [place] [address] Dr. Sonido Bejarano CBC W MANUAL DIFFon 09-18-20 22 ANISOCYTOSIS 3+ Normal [facility] Comment on above: Performed By: #### C BCMAN #### [facility] [address] [place] [address] Dr. Sonido Bejarano ATYPICAL LYMPH # Normal [facility] Comment on above: Performed By: #### C BCMAN #### [facility] [address] [place] [address] Dr. Sonido Bejarano ATYPICAL LYMPH % Normal [facility] Comment on above: Performed By: #### C BCMAN #### [facility] [address] [place] [address] Dr. Sonido Bejarano BAND # Normal 0.0-0.3 [facility] Comment on above: Performed By: #### C BCMAN #### [facility] [address] [place] [address] Dr. Sonido Bejarano BAND % Normal 0-5 [facility] Comment on above: Performed By: #### C BCMAN #### [facility] [address] [place] [address] Dr. Sonido Bejarano BASOM # 0.00 103/ul Normal 0.00-0.10 [facility] Comment on above: Performed By: #### C BCKATHERINE #### [facility] [address] [place] [address] Dr. Sonido Bejarano BASOM % 0.0 % Critically low 0.2-2.0 [facility] Comment on above: Performed By: #### C BCKATHERINE #### [facility] [address] [place] [address] Dr. Sonido Bejarano BLAST # Normal [facility] Comment on above: Performed By: #### C RAMILA #### [facility] [address] [place] [address] Dr. Sonido Bejarano BLAST % Normal [facility] Comment on above: Performed By: #### C BCKATHERINE #### [facility] [address] [place] [address] Dr. Sonido Bejarano CORRECTED WBC Normal 4.0-11.0 [facility] Comment on above: Performed By: #### C BCKATHERINE #### [facility] [address] [place] [address] Dr. Sonido Bejarano EOS # 0.08 103/ul Normal 0.00-0.70 [facility] Comment on above: Performed By: #### C BCKATHERINE #### [facility] [address] [address] [address] Sonido Bejarano EOS% 2.0 % Normal 0.9-7.0 [facility] Comment on above: Performed By: #### C RAMILA #### [facility] [address] [address] [address] Sonido Bejarano HCT 31.1 % Critically low 42.0-54.0 [facility] Comment on above: Performed By: #### C RAMILA #### [facility] [address] [address] [address] Sonido Bejarano HGB 8.3 g/dl Critically low 14.0-18.0 [facility] Comment on above: Performed By: #### C RAMILA #### [facility] [address] [place] [address] Dr. Sonido Bejarano HYPOCHROMASIA SLIGHT Normal [facility] Comment on above: Performed By: #### C RAMILA #### [facility] [address] [place] [address] Dr. Sonido Bejarano LYMPHM # 1.13 103/ul Critically low 1.20-3.80 [facility] Comment on above: Performed By: #### C RAMILA #### [facility] [address] [place] [address] Dr. Sonido Bejarano LYMPHM% 27.0 % Normal 20.5-60.0 [facility] Comment on above: Performed By: #### C RAMILA #### [facility] [address] [place] [address] Dr. Sonido Bejarano MCH 15.9 pg Critically low 25.9-34.0 [facility] Comment on above: Performed By: #### C RAMILA #### [facility] [address] [place] [address] Dr. Sonido Bejarano MCHC 26.7 g/dl Critically low 29.9-35.2 [facility] Comment on above: Performed By: #### C RAMILA #### [facility] [facility] [address] [place] [address] Dr. Sonido Bejarano MCV 59.5 fL Critically low 80.0-94.0 [facility] Comment on above: Performed By: #### C RAMILA #### [facility] [address] [place] [address] Dr. Sonido Bejarano METAMYELOCYTE # Normal [facility] Comment on above: Performed By: #### C RAMILA #### [facility] [address] [place] [address] Dr. Sonido Bejarano METAMYELOCYTE % Normal [facility] Comment on above: Performed By: #### C RAMILA #### [facility] [address] [place] [address] Dr. Sonido Bejarano MICROCYTOSIS 3+ Normal [facility] Comment on above: Performed By: #### C RAMILA #### [facility] [address] [place] [address] Dr. Sonido Bejarano MONOM# 0.55 103/ul Normal 0.30-0.80 [facility] Comment on above: Performed By: #### C RAMILA #### [facility] [address] [place] [address] Dr. Sonido Bejarano MONOM% 13.0 % Critically high 1.7-12.0 [facility] Comment on above: Performed By: #### C RAMILA #### [facility] [address] [place] [address] Dr. Sonido Bejarano MPV 9.7 fL Normal 9.5-13.5 [facility] Comment on above: Performed By: #### C RAMILA #### [facility] [address] [place] [address] Dr. Sonido Bejarano MYELOCYTE # Normal [facility] Comment on above: Performed By: #### C RAMILA #### [facility] [address] [place] [address] Dr. Sonido Bejarano MYELOCYTE % Normal [facility] Comment on above: Performed By: #### C RAMILA #### [facility] [address] [place] [address] Dr. Sonido Bejarano NRBC Normal [facility] Comment on above: Performed By: #### C RAMILA #### [facility] [address] [address] [address] Sonido Bejarano PLT 421 103/ul Normal 150-450 [facility] Comment on above: Performed By: #### C RAMILA #### [facility] [address] [address] [address] Sonido Bejarano RBC 5.23 106/ul Normal 4.70-6.10 [facility] Comment on above: Performed By: #### C RAMILA #### [facility] [address] [place] [address] Dr. Sonido Bejarano RDW 22.2 % Critically high 11.0-15.0 [facility] Comment on above: Performed By: #### C RAMILA #### [facility] [address] [place] [address] Dr. Sonido Bejarano SEG # 2.44 103/ul Normal 1.40-6.50 [facility] Comment on above: Performed By: #### C RAMILA #### [facility] [address] [place] [address] Dr. Sonido Bejarano SEG % 58.0 % Normal 43.0-75.0 [facility] Comment on above: Performed By: #### C RAMILA #### [facility] [address] [place] [address] Dr. Sonido Bejarano WBC 4.2 103/ul Normal 4.0-11.0 [facility] Comment on above: Performed By: #### C RAMILA #### [facility] [address] [place] [address] Dr. Sonido Bejarano CBC AUTO DIFFon 08-21-2022 BASO # 0.0 103/ul Normal 0.0-0.1 [facility] Comment on above: Performed By: #### C BC #### [facility] [address] [place] [address] Dr. Sonido Bejarano Basophils/100 WBC (Bld) 0.6 % Normal 0.2-2.0 [facility] Comment on above: Performed By: #### C BC #### [facility] [address] [place] [address] Dr. Sonido Bejarano EO # 0.1 103/ul Normal 0.0-0.7 [facility] Comment on above: Performed By: #### C BC #### [facility] [address] [place] [address] Dr. Sonido Bejarano Eosinophils/100 WBC (Bld) 1.0 % Normal 0.9-7.0 [facility] Comment on above: Performed By: #### C BC #### [facility] [address] [place] [address] Dr. Sonido Bejarano Erythrocyte distribution width (RBC) [Ratio] 21.9 % Critically high 11.0-15.0 [facility] Comment on above: Result Comment: anis ocytosis 2+ Performed By: #### C BC #### [facility] [address] [place] [address] Dr. Sonido Bejarano Hematocrit (Bld) [Volume fraction] 32.7 % Critically low 42.0-54.0 [facility] Comment on above: Performed By: #### C BC #### [facility] [address] [place] [address] Dr. Sonido Bejarano Hemoglobin (Bld) [Mass/Vol] 8.4 g/dL Critically low 14.0-18.0 [facility] Comment on above: Performed By: #### C BC #### [facility] [address] [place] [address] Dr. Sonido Bejarano IG # 0.01 10e3/ul Normal 0.00-0.03 [facility] Comment on above: Performed By: #### C BC #### [facility] [address] [place] [address] Dr. Sonido Bejarano IG % 0.2 % Normal 0.0-0.5 [facility] Comment on above: Performed By: #### C BC #### [facility] [address] [place] [address] Dr. Sonido Bejarano LYMPH # 1.1 103/ul Critically low 1.2-3.8 [facility] Comment on above: Performed By: #### C BC #### [facility] [address] [place] [address] Dr. Sonido Bejarano Lymphocytes/100 WBC (Bld) 22.3 % Normal 20.5-60.0 [facility] Comment on above: Performed By: #### C BC #### [facility] [address] [place] [address] Dr. Sonido Bejarano MANUAL DIFF REQ NO Normal [facility] Comment on above: Performed By: #### C BC #### [facility] [address] [place] [address] Dr. Sonido Bejarano MCH (RBC) [Entitic mass] 15.3 pg Critically low 25.9-34.0 [facility] Comment on above: Performed By: #### C BC #### [facility] [address] [place] [address] Dr. Sonido Bejarano MCHC (RBC) [Mass/Vol] 25.7 g/dL Critically low 29.9-35.2 [facility] Comment on above: Result Comment: hypo chromasia 2+ Performed By: #### C BC #### [facility] [address] [place] [address] Dr. Sonido Bejarano MCV (RBC) [Entitic vol] 59.6 fL Critically low 80.0-94.0 [facility] Comment on above: Result Comment: micr ocytosis 3+ Performed By: #### C BC #### [facility] [address] [place] [address] Dr. Sonido Bejarano MONO # 0.5 103/ul Normal 0.3-0.8 [facility] Comment on above: Performed By: #### C BC #### [facility] [address] [place] [address] Dr. Sonido Bejarano Monocytes/100 WBC (Bld) 10.8 % Normal 1.7-12.0 [facility] Comment on above: Performed By: #### C BC #### [facility] [address] [place] [address] Dr. Sonido Bejarano NEUT # 3.2 103/ul Normal 1.4-6.5 [facility] Comment on above: Performed By: #### C BC #### [facility] [address] [place] [address] Dr. Sonido Bejarano Neutrophils/100 WBC (Bld) 65.1 % Normal 43.0-75.0 [facility] Comment on above: Performed By: #### C BC #### [facility] [address] [place] [address] Dr. Sonido Bejarano Platelet mean volume (Bld) [Entitic vol] 9.5 fL Normal 9.5-13.5 [facility] Comment on above: Performed By: #### C BC #### [facility] [address] [place] [address] Dr. Sonido Bejarano PLT 415 103/ul Normal 150-450 [facility] Comment on above: Performed By: #### C BC #### [facility] [address] [place] [address] Dr. Sonido Bejarano RBC 5.49 106/ul Normal 4.70-6.10 [facility] Comment on above: Performed By: #### C BC #### [facility] [address] [place] [address] Dr. Sonido Bejarano WBC 5.0 103/ul Normal 4.0-11.0 [facility] Comment on above: Performed By: #### C BC #### [facility] [address] [place] [address] Dr. Sonido Bejarano CBC AUTO DIFFon 08-02-2022 BASO # 0.0 103/ul Normal 0.0-0.1 [facility] Comment on above: Performed By: #### C BC #### [facility] [address] [place] [address] Dr. Sonido Bejarano Basophils/100 WBC (Bld) 0.3 % Normal 0.2-2.0 [facility] Comment on above: Performed By: #### C BC #### [facility] [address] [place] [address] Dr. Sonido Bejarano EO # 0.0 103/ul Normal 0.0-0.7 [facility] Comment on above: Performed By: #### C BC #### [facility] [address] [place] [address] Dr. Sonido Bejarano Eosinophils/100 WBC (Bld) 0.7 % Critically low 0.9-7.0 [facility] Comment on above: Performed By: #### C BC #### [facility] [address] [place] [address] Dr. Sonido Bejarano Erythrocyte distribution width (RBC) [Ratio] 21.9 % Critically high 11.0-15.0 [facility] Comment on above: Performed By: #### C BC #### [facility] [address] [place] [address] Dr. Sonido Bejarano Hematocrit (Bld) [Volume fraction] 30.0 % Critically low 42.0-54.0 [facility] Comment on above: Performed By: #### C BC #### [facility] [address] [place] [address] Dr. Sonido Bejarano Hemoglobin (Bld) [Mass/Vol] 7.8 g/dL Critically low 14.0-18.0 [facility] Comment on above: Performed By: #### C BC #### [facility] [address] [place] [address] Dr. Sonido Bejarano IG # 0.01 10e3/ul Normal 0.00-0.03 [facility] Comment on above: Performed By: #### C BC #### [facility] [address] [place] [address] Dr. Sonido Bejarano IG % 0.2 % Normal 0.0-0.5 [facility] Comment on above: Performed By: #### C BC #### [facility] [address] [place] [address] Dr. Sonido Bejarano LYMPH # 1.0 103/ul Critically low 1.2-3.8 [facility] Comment on above: Performed By: #### C BC #### [facility] [address] [place] [address] Dr. Sonido Bejarano Lymphocytes/100 WBC (Bld) 18.0 % Critically low 20.5-60.0 [facility] Comment on above: Performed By: #### C BC #### [facility] [address] [place] [address] Dr. Sonido Bejarano MANUAL DIFF REQ NO Normal [facility] Comment on above: Performed By: #### C BC #### [facility] [address] [place] [address] Dr. Sonido Bejarano MCH (RBC) [Entitic mass] 15.9 pg Critically low 25.9-34.0 [facility] Comment on above: Performed By: #### C BC #### [facility] [address] [place] [address] Dr. Sonido Bejarano MCHC (RBC) [Mass/Vol] 26.0 g/dL Critically low 29.9-35.2 [facility] Comment on above: Performed By: #### C BC #### [facility] [address] [place] [address] Dr. Sonido Bejarano MCV (RBC) [Entitic vol] 61.2 fL Critically low 80.0-94.0 [facility] Comment on above: Performed By: #### C BC #### [facility] [address] [place] [address] Dr. Sonido Bejarano MONO # 0.5 103/ul Normal 0.3-0.8 [facility] Comment on above: Performed By: #### C BC #### [facility] [address] [place] [address] Dr. Sonido Bejarano Monocytes/100 WBC (Bld) 8.7 % Normal 1.7-12.0 [facility] Comment on above: Performed By: #### C BC #### [facility] [address] [place] [address] Dr. Sonido Bejarano NEUT # 4.1 103/ul Normal 1.4-6.5 [facility] Comment on above: Performed By: #### C BC #### [facility] [address] [place] [address] Dr. Sonido Bejarano Neutrophils/100 WBC (Bld) 72.1 % Normal 43.0-75.0 [facility] Comment on above: Performed By: #### C BC #### [facility] [address] [place] [address] Dr. Sonido Bejarano Platelet mean volume (Bld) [Entitic vol] 9.3 fL Critically low 9.5-13.5 [facility] Comment on above: Performed By: #### C BC #### [facility] [address] [place] [address] Dr. Sonido Bejarano PLT 339 103/ul Normal 150-450 [facility] Comment on above: Performed By: #### C BC #### [facility] [address] [place] [address] Dr. Sonido Bejarano RBC 4.90 106/ul Normal 4.70-6.10 [facility] Comment on above: Performed By: #### C BC #### [facility] [address] [place] [address] Dr. Sonido Bejarano WBC 5.7 103/ul Normal 4.0-11.0 [facility] Comment on above: Performed By: #### C BC #### [facility] [address] [place] [address] Dr. Sonido Bejarano CBC AUTO DIFFon 06-17-2022 BASO # 0.0 103/ul Normal 0.0-0.1 [facility] Comment on above: Performed By: #### C BC #### [facility] [address] [place] [address] Dr. Sonido Bejarano Basophils/100 WBC (Bld) 0.7 % Normal 0.2-2.0 [facility] Comment on above: Performed By: #### C BC #### [facility] [address] [place] [address] Dr. Sonido Bejarano EO # 0.3 103/ul Normal 0.0-0.7 [facility] Comment on above: Performed By: #### C BC #### [facility] [address] [place] [address] Dr. Sonido Bejarano Eosinophils/100 WBC (Bld) 5.3 % Normal 0.9-7.0 [facility] Comment on above: Performed By: #### C BC #### [facility] [address] [place] [address] Dr. Sonido Bejarano Erythrocyte distribution width (RBC) [Ratio] 22.1 % Critically high 11.0-15.0 [facility] Comment on above: Performed By: #### C BC #### [facility] [address] [place] [address] Dr. Sonido Bejarano Hematocrit (Bld) [Volume fraction] 32.2 % Critically low 42.0-54.0 [facility] Comment on above: Performed By: #### C BC #### [facility] [address] [place] [address] Dr. Sonido Bejarano Hemoglobin (Bld) [Mass/Vol] 8.2 g/dL Critically low 14.0-18.0 [facility] Comment on above: Performed By: #### C BC #### [facility] [address] [place] [address] Dr. Sonido Bejarano IG # 0.01 10e3/ul Normal 0.00-0.03 [facility] Comment on above: Performed By: #### C BC #### [facility] [address] [place] [address] Dr. Sonido Bejarano IG % 0.2 % Normal 0.0-0.5 [facility] Comment on above: Performed By: #### C BC #### [facility] [address] [place] [address] Dr. Sonido Bejarano LYMPH # 1.1 103/ul Critically low 1.2-3.8 [facility] Comment on above: Performed By: #### C BC #### [facility] [address] [place] [address] Dr. Sonido Bejarano Lymphocytes/100 WBC (Bld) 19.3 % Critically low 20.5-60.0 [facility] Comment on above: Performed By: #### C BC #### [facility] [address] [place] [address] Dr. Sonido Bejarano MANUAL DIFF REQ NO Normal [facility] Comment on above: Performed By: #### C BC #### [facility] [address] [place] [address] Dr. Sonido Bejarano MCH (RBC) [Entitic mass] 15.8 pg Critically low 25.9-34.0 [facility] Comment on above: Performed By: #### C BC #### [facility] [address] [place] [address] Dr. Sonido Bejarano MCHC (RBC) [Mass/Vol] 25.5 g/dL Critically low 29.9-35.2 [facility] Comment on above: Performed By: #### C BC #### [facility] [address] [address] [address] Sonido Bejarano MCV (RBC) [Entitic vol] 62.0 fL Critically low 80.0-94.0 [facility] Comment on above: Performed By: #### C BC #### [facility] [address] [place] [address] Dr. Sonido Bejarano MONO # 0.9 103/ul Critically high 0.3-0.8 [facility] Comment on above: Performed By: #### C BC #### [facility] [address] [place] [address] Dr. Sonido Bejarano Monocytes/100 WBC (Bld) 16.0 % Critically high 1.7-12.0 [facility] Comment on above: Performed By: #### C BC #### [facility] [address] [place] [address] Dr. Sonido Bejarano NEUT # 3.2 103/ul Normal 1.4-6.5 [facility] Comment on above: Performed By: #### C BC #### [facility] [address] [place] [address] Dr. Sonido Bejarano Neutrophils/100 WBC (Bld) 58.5 % Normal 43.0-75.0 [facility] Comment on above: Performed By: #### C BC #### [facility] [address] [place] [address] Dr. Sonido Bejarano Platelet mean volume (Bld) [Entitic vol] 9.3 fL Critically low 9.5-13.5 [facility] Comment on above: Performed By: #### C BC #### [facility] [address] [place] [address] Dr. Sonido Bejarano PLT 335 103/ul Normal 150-450 [facility] Comment on above: Performed By: #### C BC #### [facility] [address] [place] [address] Dr. Sonido Bejarano RBC 5.19 106/ul Normal 4.70-6.10 [facility] Comment on above: Performed By: #### C BC #### [facility] [address] [place] [address] Dr. Sonido Bejarano WBC 5.5 103/ul Normal 4.0-11.0 [facility] Comment on above: Performed By: #### C BC #### [facility] [address] [place] [address] Dr. Sonido Bejarano CBC AUTO DIFFon 05-15-2022 BASO # 0.0 103/ul Normal 0.0-0.1 [facility] Comment on above: Performed By: #### C BC #### [facility] [address] [place] [address] Dr. Sonido Bejarano Basophils/100 WBC (Bld) 0.8 % Normal 0.2-2.0 [facility] Comment on above: Performed By: #### C BC #### [facility] [address] [place] [address] Dr. Sonido Bejarano EO # 0.1 103/ul Normal 0.0-0.7 [facility] Comment on above: Performed By: #### C BC #### [facility] [address] [place] [address] Dr. Sonido Bejarano Eosinophils/100 WBC (Bld) 2.3 % Normal 0.9-7.0 [facility] Comment on above: Performed By: #### C BC #### [facility] [address] [place] [address] Dr. Sonido Bejarano Erythrocyte distribution width (RBC) [Ratio] 21.5 % Critically high 11.0-15.0 [facility] Comment on above: Performed By: #### C BC #### [facility] [address] [place] [address] Dr. Sonido Bejarano Hematocrit (Bld) [Volume fraction] 30.5 % Critically low 42.0-54.0 [facility] Comment on above: Performed By: #### C BC #### [facility] [address] [place] [address] Dr. Sonido Bejarano Hemoglobin (Bld) [Mass/Vol] 7.9 g/dL Critically low 14.0-18.0 [facility] Comment on above: Performed By: #### C BC #### [facility] [address] [place] [address] Dr. Sonido Bejarano IG # 0.01 10e3/ul Normal 0.00-0.03 [facility] Comment on above: Performed By: #### C BC #### [facility] [address] [place] [address] Dr. Sonido Bejarano IG % 0.2 % Normal 0.0-0.5 [facility] Comment on above: Performed By: #### C BC #### [facility] [address] [place] [address] Dr. Sonido Bejarano LYMPH # 1.3 103/ul Normal 1.2-3.8 [facility] Comment on above: Performed By: #### C BC #### [facility] [address] [place] [address] Dr. Sonido Bejarano Lymphocytes/100 WBC (Bld) 24.6 % Normal 20.5-60.0 [facility] Comment on above: Performed By: #### C BC #### [facility] [address] [place] [address] Dr. Sonido Bejarano MANUAL DIFF REQ NO Normal [facility] Comment on above: Performed By: #### C BC #### [facility] [address] [place] [address] Dr. Sonido Bejarano MCH (RBC) [Entitic mass] 15.6 pg Critically low 25.9-34.0 [facility] Comment on above: Performed By: #### C BC #### [facility] [address] [place] [address] Dr. Sonido Bejarano MCHC (RBC) [Mass/Vol] 25.9 g/dL Critically low 29.9-35.2 [facility] Comment on above: Performed By: #### C BC #### [facility] [address] [place] [address] Dr. Sonido Bejarano MCV (RBC) [Entitic vol] 60.4 fL Critically low 80.0-94.0 [facility] Comment on above: Performed By: #### C BC #### [facility] [address] [place] [address] Dr. Sonido Bejarano MONO # 0.6 103/ul Normal 0.3-0.8 [facility] Comment on above: Performed By: #### C BC #### [facility] [address] [place] [address] Dr. Sonido Bejarano Monocytes/100 WBC (Bld) 12.1 % Critically high 1.7-12.0 [facility] Comment on above: Performed By: #### C BC #### [facility] [address] [place] [address] Dr. Sonido Bejarano NEUT # 3.1 103/ul Normal 1.4-6.5 [facility] Comment on above: Performed By: #### C BC #### [facility] [address] [place] [address] Dr. Sonido Bejarano Neutrophils/100 WBC (Bld) 60.0 % Normal 43.0-75.0 [facility] Comment on above: Performed By: #### C BC #### [facility] [address] [place] [address] Dr. Sonido Bejarano Platelet mean volume (Bld) [Entitic vol] 9.6 fL Normal 9.5-13.5 [facility] Comment on above: Performed By: #### C BC #### [facility] [address] [place] [address] Dr. Sonido Bejarano PLT 399 103/ul Normal 150-450 [facility] Comment on above: Performed By: #### C BC #### [facility] [address] [place] [address] Dr. Sonido Bejarano RBC 5.05 106/ul Normal 4.70-6.10 [facility] Comment on above: Performed By: #### C BC #### [facility] [address] [address] [address] Sonido Bejarano WBC 5.1 103/ul Normal 4.0-11.0 [facility] Comment on above: Performed By: #### C BC #### [facility] [address] [place] [address] Dr. Sonido Bejarano CBC AUTO DIFFon 04-15-2022 BASO # 0.0 103/ul Normal 0.0-0.1 [facility] Comment on above: Performed By: #### C BC #### [facility] [address] [address] [address] Sonido Bejarano Basophils/100 WBC (Bld) 0.3 % Normal 0.2-2.0 [facility] Comment on above: Performed By: #### C BC #### [facility] [address] [place] [address] Dr. Sonido Bejarano EO # 0.1 103/ul Normal 0.0-0.7 [facility] Comment on above: Performed By: #### C BC #### [facility] [address] [place] [address] Dr. Sonido Bejarano Eosinophils/100 WBC (Bld) 1.0 % Normal 0.9-7.0 [facility] Comment on above: Performed By: #### C BC #### [facility] [address] [place] [address] Dr. Sonido Bejarano Erythrocyte distribution width (RBC) [Ratio] 21.2 % Critically high 11.0-15.0 [facility] Comment on above: Performed By: #### C BC #### [facility] [address] [place] [address] Dr. Sonido Bejarano Hematocrit (Bld) [Volume fraction] 32.2 % Critically low 42.0-54.0 [facility] Comment on above: Performed By: #### C BC #### [facility] [address] [place] [address] Dr. Sonido Bejarano Hemoglobin (Bld) [Mass/Vol] 8.3 g/dL Critically low 14.0-18.0 [facility] Comment on above: Performed By: #### C BC #### [facility] [address] [place] [address] Dr. Sonido Bejarano IG # 0.03 10e3/ul Normal 0.00-0.03 [facility] Comment on above: Performed By: #### C BC #### [facility] [address] [address] [address] Sonido Bejarano IG % 0.4 % Normal 0.0-0.5 [facility] Comment on above: Performed By: #### C BC #### [facility] [address] [place] [address] Dr. Sonido Bejarnao LYMPH # 1.0 103/ul Critically low 1.2-3.8 [facility] Comment on above: Performed By: #### C BC #### [facility] [address] [place] [address] Dr. Sonido Bejarano Lymphocytes/100 WBC (Bld) 15.2 % Critically low 20.5-60.0 [facility] Comment on above: Performed By: #### C BC #### [facility] [address] [place] [address] Dr. Sonido Bejarano MANUAL DIFF REQ NO Normal [facility] Comment on above: Performed By: #### C BC #### [facility] [address] [place] [address] Dr. Sonido Bejarano MCH (RBC) [Entitic mass] 16.1 pg Critically low 25.9-34.0 [facility] Comment on above: Performed By: #### C BC #### [facility] [address] [place] [address] Dr. Sonido Bejarano MCHC (RBC) [Mass/Vol] 25.8 g/dL Critically low 29.9-35.2 [facility] Comment on above: Performed By: #### C BC #### [facility] [address] [place] [address] Dr. Sonido Bejarano MCV (RBC) [Entitic vol] 62.4 fL Critically low 80.0-94.0 [facility] Comment on above: Performed By: #### C BC #### [facility] [address] [address] [address] Sonido Bejarano MONO # 0.6 103/ul Normal 0.3-0.8 [facility] Comment on above: Performed By: #### C BC #### [facility] [address] [address] [address] Sonido Bejarano Monocytes/100 WBC (Bld) 8.5 % Normal 1.7-12.0 [facility] Comment on above: Performed By: #### C BC #### [facility] [address] [address] [address] Sonido Bejarano NEUT # 5.0 103/ul Normal 1.4-6.5 [facility] Comment on above: Performed By: #### C BC #### [facility] [address] [place] [address] Dr. Sonido Bejarano Neutrophils/100 WBC (Bld) 74.6 % Normal 43.0-75.0 [facility] Comment on above: Performed By: #### C BC #### [facility] [address] [place] [address] Dr. Sonido Bejarano Platelet mean volume (Bld) [Entitic vol] 9.9 fL Normal 9.5-13.5 [facility] Comment on above: Performed By: #### C BC #### [facility] [address] [place] [address] Dr. Sonido Bejarano PLT 355 103/ul Normal 150-450 [facility] Comment on above: Performed By: #### C BC #### [facility] [address] [place] [address] Dr. Sonido Bejarano RBC 5.16 106/ul Normal 4.70-6.10 [facility] Comment on above: Result Comment: 1+ o valocytes slight hypochromic slight microchromic Performed By: #### C BC #### [facility] [address] [place] [address] Dr. Sonido Bejarano WBC 6.7 103/ul Normal 4.0-11.0 [facility] Comment on above: Performed By: #### C #### [facility] [address] [address] [address] Sonido Diana 03-28-2022 CNOV Office Visit ([facility] ) RJ COLBERT ([id number]) 2000 [place] [place]* Date Time Provider Department 03/28/22 11:20 AM ARNOLD GENAO [facility] During your visit today, [...] seen in the office on 11/16/21 with Cristla Nava SPORTS DEVELOPMENT OFFICER for follow up visit after he underwent [...] exam Anorectal: External exam reveals: see below Director Geothermal Operations present: yes Assessment Assessment and Plan: Rj [...] Assessed Reason for Visit: Established Patient Follow-Up [15902000] Rectal Bleeding [202] Primary Visit Diagnosis:Hematochezia [K92.1] [...] benztropine (C (more content not included)... Normal [facility] Telephone ([facility]) RJ COLBERT ([id number]) 2000 [address]ia Joseph Date Time Provider Department 03/28/22 ARNOLD GENAO [facility] During your visit today, we recorded the following information about you: Essie Pickard Pss 03/28/2022 1:41 PM Signed Patient called and left message regarding prescription from today's visit return call to [phone] Charley Mcclelland RN 03/28/2022 2:49 PM Signed [...] Fully Assessed Reason for Visit: Patient Question [2158] Prescriptions as of 03/28/2022 - acetaminophen (TYLENOL) [...] Encounter Status:Closed by CHARLEY [facility]CC[facility]LLAND [id number] RJ COLBERT ([id number]) 2000 [address]ia Leigh Dereje* Date Time Provider Department 03/28/22 ARNOLD GENAO [id number] During your visit today, we recorded the following information about you: Sara Gregory Milton ADM 03/28/2022 3:45 PM Signed Pharmacy, [facility], [facility], phone , any pharmacist to clarify [...] [facility] CNOVon 11-16-2021 CNOV Office Visit ([facility] ) RJ COLBERT ([id number]) 2000 [address]ia Joseph Date Time Provider Department 11/16/21 1:30 PM CRISTAL NAVA During your visit today, we recorded the following information about you: Pulse Blood pressure Weight Height 60/minute 136/80 96.2 kg 1.803 m Cristal Nava APRN.K 9 POLICE OFFICER 11/16/2021 12:59 PM Signed COLORECTAL SURGERY November [...] results with patient and POA. Cristal Nava APRN.[facility] Colorectal Surgery Referring Provider: ARNOLD GENAO [[id number]] Allergies As of Date: 11/16/2021 (No Known Allergies) Date Reviewed: 11/16/2021 Reviewed by: Cristal Nava APRN.K 9 POLICE OFFICER - Fully Assessed Reason for Visit: Post [...] 07/10/2021 Hemorrho (more content not included)... Normal [facility] ANES POSTPROC EVALon 021 ANES POSTPROC EVAL HNO ID: [id number] Author: Michael Martínez MD Service: Anesthesiology Author Type: Anesthesiologist Type: Anesthesia Postprocedure Evaluation Filed: 10/17/2021 10:23 AM Note Text: POST ANESTHESIA EVALUATION NOTE : 2000 Procedure Summary Date: 10/17/21 Room / Location: [address] / [facility] Anesthesia Start: 841 Anesthesia Stop: 913 Procedure: [...] 16 10/17/21 0955 SpO2 100 % 10/17/21 09 Post Anesthesia Patient Status Patient Evaluation: PACU. [...] October 17, 2021 TIME: 10:23 AM CSN: [id number] [facility] ANES PRE-OPon 10-17-2021 ANES PRE-OP HNO ID: [id number] Author: Michael Martínez MD Service: Anesthesiology Author Type: Anesthesiologist Type: Anesthesia Preprocedure Evaluation Filed: 10/17/2021 8:32 AM Note Text: ANESTHESIOLOGY DAY OF SURGERY NOTE : 2000 Procedure Information Date/Time: 10/17/21729 Procedure: HEMORRHOIDECTOMY EXTERNAL > 2 COLUMNS/GROUPS (N/A ) Location: [address] / [facility] Surgeons: Arnold Genao MD Estimated body mass [...] October 17, 2021 TIME: 8:27 AM CSN: [id number] [facility] BRIEF OP NOTon 10-17-2021 BRIEF OP NOT HNO ID: [id number] Author: Jared Rowe MD Service: Colorectal Author Type: Resident Type: Brief Op Note Filed: 10/17/2021 9:15 AM Note Text: BRIEF OPERATIVE / PROCEDURE NOTE LOG ID: [id number] SURGERY/PROCEDURE DATE: 10/17/2021 INCISION/PROCEDURE START TIME: 8:55 AM INCISION CLOSE/PROCEDURE END TIME: 9:02 AM SURGEON(S)/PROCEDURALIS T(S) AND PROFESSOR OF ENGLISH(S): Surgeon(s) and Role: * Arnold Genao MD [...] DATE: October 17, 2021 TIME: 9:13 AM [facility] HISTORY PHYSICALon HISTORY PHYSICAL HNO ID: [id number] Author: Jared Rowe MD Service: Colorectal Author Type: Resident Type: HANDP Filed: 10/17/2021 7:22 AM Note Text: Attestation signed by Arnold Genao MD at 10/30/2021 11:18 AM UPDATED HISTORY AND PHYSICAL EXAMINATION SERVICE DATE: [...] October 17, 2021 TIME: 7:22 AM Normal [facility] OPERATIVE NOon 10-17-2021 OPERATIVE NO HNO ID: [id number] Author: Arnold Genao MD Service: Colorectal Author Type: Physician Type: Operative Report Filed: 10/30/2021 11:21 AM Note Text: [facility] - Operative Report RJ COLBERT : 2000 AGE: 21. SEX: M PATIENT TYPE: A [facility] [place] [facility] ATTENDING PHYSICIAN: Arnold Genao M.D. CSN NUMBER: [id number] DATE OF SURGERY/PROCEDURE: 10/17/2021 INCISION/PROCEDURE START TIME: 8:55 AM INCISION CLOSE/PROCEDURE END TIME: 9:02 AM PREOPERATIVE DIAGNOSIS: Hemorrhoids. POSTOPERATIVE DIAGNOSIS: Hemorrhoids. SURGEON: Arnold Genao M.D. PROFESSOR OF ENGLISH: Jared. SURGERY/PROCEDURE: Ablation. ANESTHESIA: General ESTIMATED BLOOD [...] was overall very minor. Arnold Genao M.D. BC:[id number] /[id number] [facility] HISTORY PHYSICALon HISTORY PHYSICAL HNO ID: [id number] Author: Zahira Heath APRN.K 9 POLICE OFFICER Service: ? Author Type: Nurse Practitioner Type: [...] fevers. Neuro: No history of TIA's, stroke, MANAGEMENT TRAINEE tumor, impaired sensorium, hemiplegia, paraplegia or quadraplegia. [...] skills. Pulse (more content not included)... Normal [facility] CNOVon 08-31-2021 CNOV Office Visit ([facility] ) RJ COLBERT ([id number]) 2000 Genia Reyez* Date Time Provider Department 08/31/21 1:30 PM ARNOLD GENAO [facility] During your visit today, we [...] Anorectal: External exam reveals : see below Director Geothermal Operations present: yes Assessment Assessment and Plan: Rj Colbert is a 21 year old male who is doing relatively well after his recent rubber band ligation. He still has some rectal bleeding and it is difficult to assess the exact amount. If the bleeding persists we will consider internal hemorrhoidectomy. Arnold Genao MD Colorectal Surgery Referring Provider: ELHAM VAN [[id number]] Allergies As of Date: 08/31/2021 (No Known [...] OPERATIVE NOon 07-17-2021 OPERATIVE NO HNO ID: [id number] Author: Arnold Genao MD Service: Colorectal Author Type: Physician Type: Operative Report Filed: 08/01/2021 1:12 PM Note Text: [facility] - Operative Report RJ COLBERT : 2000 AGE: 21. SEX: M PATIENT TYPE: A [facility] [place] [facility] LOCATION: [facility] ATTENDING PHYSICIAN: Arnold Genao M.D. CSN NUMBER: [id number] DATE OF SURGERY/PROCEDURE: 07/12/2021 INCISION/PROCEDURE START TIME: 10:55 AM INCISION CLOSE/PROCEDURE END TIME: 10:58 AM PREOPERATIVE DIAGNOSIS: Rectal bleeding. POSTOPERATIVE DIAGNOSIS: Rectal bleeding. SURGEON: Arnold Genao M.D. PROFESSOR OF ENGLISH: None. SURGERY/PROCEDURE: Rubber-band ligation hemorrhoidectomy. ANESTHESIA: General [...] room in good condition. Arnold Genao M.D. BC:[id number] /[id number] [facility] 07-13-2021 [facility] Telephone ([facility]) RJ COLBERT ([id number]) 2000 [address]ia Leigh Ma* Date Time Provider Department 07/13/21 ARNOLD GENAO [facility] During your visit today, we recorded the following information about you: Essie Pickard Pss 07/13/2021 3:27 PM Signed Patient's caregiver called with post operative hemorrhoidectomy questions and concerns of bands falling off return call to [phone] Sara Rose [facility] 07/16/2021 12:22 PM Signed Kasia, caregiver called. Patient banding undone. Called last Friday, waiting to talk to nurse about care. [phone] Nona Banks RN 07/16/2021 4:56 PM Signed [...] EVALon 021 ANES POSTPROC EVAL HNO ID: [id number] Author: Jared Arriaga MD Service: Anesthesiology Author Type: Anesthesiologist Type: Anesthesia Postprocedure Evaluation Filed: 07/12/2021 12:05 PM Note Text: POST ANESTHESIA EVALUATION NOTE : 2000 Procedure Summary Date: 07/12/21 Room / Location: [address] / [facility] Anesthesia Start: 1044 Anesthesia Stop: 1110 Procedures: [...] July 12, 2021 TIME: 12:05 PM CSN: [id number] [facility] ANES PRE-OPon 07-12-2021 ANES PRE-OP HNO ID: [id number] Author: Jared Arriaga MD Service: Anesthesiology Author [...] July 12, 2021 TIME: 9:18 AM CSN: [id number] [facility] HISTORY PHYSICALon HISTORY PHYSICAL HNO ID: [id number] Author: Arnold Genao MD Service: Colorectal Author [...] DATE: July 12, 2021 TIME: 10:39 AM [facility] HISTORY PHYSICALon HISTORY PHYSICAL HNO ID: [id number] Author: Zahira Ivy PA-C Service: ? Author Type: Physician Sales Negotiator Type: HANDP Filed: 07/10/2021 2:28 PM Note [...] fevers. Neuro: No history of TIA's, stroke, MANAGEMENT TRAINEE tumor, impaired sensorium, hemiplegia, paraplegia or quadraplegia. [...] found for: (more content not included)... Normal [facility] 07-05-2021 [facility] Telephone ([id number]) RJ COLBERT ([id number]) 2000 M Date Time Provider Department 07/05/21 ARNOLD GENAO [id number] During your visit today, we recorded the following information about you: Sara Rose [facility] 07/05/2021 3:26 PM Signed Kasia Nurse Home School Liaison Officer at retirement where patient resides called to discuss procedure information and date. Call to discuss [phone] Sara Rose [facility] 07/06/2021 11:12 AM Signed Kasia nurse aware of 07/12 procedure date. Would like the nurse to call to advise any prep instructions other than fasting after midnight. Call Nurse Kasia mgr [phone] Cristal Nava APRN.[facility] 07/06/2021 12:27 PM Signed Call returned. Reviewed NPO after midnight and scheduled PACCs appointment. Allergies As of Date: 07/05/2021 (No Known Allergies) Date Reviewed: 06/29/2021 Reviewed by: Arnold Genao MD - Fully Assessed Reason for Visit: procedure info [Other] Cmt: discuss plan Primary Visit Diagnosis:Hemorrhoids, internal, with bleeding [K64.8] Order(s):VIRTUAL CONSULT TO PACC [3156666] Order #: [id number]: 1 FUTURE Prescriptions as of 07/06/2021 - [...] CNOV Office Visit ([facility] ) RJ COLBERT ([id number]) 2000 M Date Time Provider Department 06/29/21 [...] (222 lb 4.8 oz) BMI 31.90 kg/m? Director Geothermal Operations present: Yes Rj Colbert is a 21 year old male presents with complaint of rectal bleeding with prolapsing Grade 3 internal hemorrhoids on exam. Our plan is to perform an EUA and rubber band ligation of internal hemorrhoids at the [facility]. Medical Decision Making: Arnold Genao MD Colorectal Surgery Referring Provider: ELHAM VAN [[id number]] Allergies As of Date: 06/29/2021 (No Known [...] Encounter Status:Closed by ARNOLD GENAO on 06/29/21 [facility] 05-22-2021 [facility] Telephone ([facility]) RJ COLBERT ([id number]) 2000 Date Time Provider Department 05/22/21 ARNOLD GENAO [facility] During your visit today, we recorded the following information about you: Tamiko Sweeney 05/22/2021 3:28 PM Signed Ph. [phone] Alivia, who works for [employer] Provider Service, was transferred to Dr. 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 CODING DATE: FINAL [facility] STATUS: Home (Routine DC) PAYOR: [...] PROC EA STAT DESCRIPTION DOCTOR NAME DATE 64831 0149 Colonoscopy, flexible; Colin Shirley MD 04/17/2018 with biopsy, single or multiple 74 Discontinued [facility] Procedure After Administration of Anesthe 16657 Anesthesia for lower Colin Shirley MD 04/17/2018 intestinal endoscopic procedures, endoscope introduced distal to duodenum; not otherwise specified NOTE: The code number assigned matches the documented diagnosis and / or procedure in the patient's chart. However, the narrative phrase printed from the coding software may appear abbreviated, or result in slightly different terminology. Coded By: Sary Little Date Saved: 05/01/2018 08:02 am Normal [facility] Coding Summary. CODING DATE: FINAL [facility] STATUS: Home (Routine DC) PAYOR: [...] PROC EAPG STAT DESCRIPTION DOCTOR NAME DATE 32097 0149 Colonoscopy, flexible; Colin Shirley MD 04/17/2018 with biopsy, single or multiple 74 Discontinued [facility] Procedure After Administration of Anesthe 54004 Anesthesia for lower Colin Shirley MD 04/17/2018 intestinal endoscopic procedures, endoscope introduced distal to duodenum; not otherwise specified NOTE: The code number assigned matches the documented diagnosis and / or procedure in the patient's chart. However, the narrative phrase printed from the coding software may appear abbreviated, or result in slightly different terminology. Coded By: Sary Little Date Saved: 04/23/2018 11:46 am Normal [facility] Progress Note-Physicianon Progress Note-Physician Patient: RJ OCLBERT Age: 17 years Sex: Male : 2000 [...] minutes, Patient educated on smoking cesstation). Normal [facility] Comment on above: Result Comment: Elec tronically Signed By: Quincy Ojeda Jr, DO\.br\Date and Time Signed: 04/28/18 08:15 EDT Main OR Intraoperative Recor don 04-20-2018 Main OR Intraoperative Record IntraOp Document Type FT Summary Primary Physician: Colin Shirley MD Finalized Date/Time: 04/20/18 09:38:35 Pt. Name: RJ COLBERT/Sex: 2000 Male Med Rec #: [id number] Physician: Colin Shirley MD Financial #: [id number] Pt. Type: O Room/Bed: / Admit/Disch: 04/17/18 09:21:54 - 04/17/18 23:59:59 Institution: Case Times FT Entry 1 Patient Times In Room 04/17/18 13:14:00 Out Room 04/17/18 13:32:00 Procedure Times Start 04/17/18 13:18:00 Stop 04/17/18 13:29:00 Anesthesia Times Start 04/17/18 13:14:00 Stop 04/17/18 13:32:00 Last Modified By: Addie Oreilly CST 04/17/18 13:32:23 General Comments: 04/20/2018 Chart opened to review and send charges Marika Pineda SOLVENT PLANT OPERATOR Case Attendance FT Entry 1 Entry 2 Entry 3 Case Attendee Casper GAUTAM, Colin Rene RN, Ashlee Boyd SOLVENT PLANT OPERATOR, Tori Role Performed Surgeon - Primary Legal Records Manager - Primary Scrub - Primary Time In 04/17/18 13:14:00 04/17/18 13:14:00 04/17/18 13:14:00 Time Out 04/17/18 13:32:00 04/17/18 13:32:00 04/17/18 13:32:00 Procedure COLONOSCOPY(.) COLONOSCOPY(.) COLONOSCOPY(.) Comments Last Modified By: Anju RN, Ashlee eRne RN, Ashlee Rene RN, Ashlee 04/17/18 13:32:29 04/17/18 13:32:29 04/17/18 13:32:29 Entry 4 Entry 5 Entry 6 Case Attendee Stas Palomares, Zenaida Mortensen CAA, Yvonne Hammond, Magi Briggs Role Performed Scrub - Other Scrub - Other Anesthesiologist Sales Negotiator Time In 04/17/18 13:14:00 04/17/18 13:14:00 04/17/18 [...] Festus DEVLIN, Oliver Krishna CST, Stas [facility], Jelani Bess Kirstyn K Time Out Complete [...] and tissue Entry 1 Skin Integrity Intact, [place], Warm, and Skin Abnormality No Dry Outcomes [...] RN Patient Status Stable Skin. Condition Intact, [place], Warm, and Dry Airway Maintenance Oxygen in Use? No Airway Device N/A Outcomes Met? Yes Last Modified By: Ashlee Rene RN 04/17/18 07:23:58 Post-Care Text: The patient is free from signs and symptoms of injury related to transfer/transport General Comments: REPORT GIVEN TO AUTO BODY MECHANIC APPRENTICE/ AW demolitionist Administration FT Pre-Care Text: Verifies allergies, administers prescribed medications and solutions, administers prescribed antibiotic therapy and immunizing agents as ordered, evaluates response to medications Administers prescribed medications and solutions Entry 1 Expiration Date Yes Outcomes Met? Yes Verified Last Modified By: Ashlee Rene RN 04/17/18 07:24:05 Post-Care Text: The patient received appropriate medication(s) safely administered during the perioperative period For [facility] please see scanned medication reconcilliation form [...] 13:32 Addie Oreilly CST 04/20/18 09:38 Normal [facility] History and Physicalon 04-17 History and Physical Date: 03/10/2018 2:15 PMPatient Name: Rj Lepe #: [id number]: MaleDOB (age): 2000 (17)Provider: Annie Benton Complaint: [...] stool incontinence, stomachPrinted on 04/10/2018 Rj Colbert, 32144, 2000 Page 1 of 4Printed on 04/10/2018 Rj Colbert, 08660, 2000cramps, straining. Denies abdominal pain, abdominal swelling, [...] up blood.Vital Signs:BP(mmHg)Pulse(ppm )Rhythm Weight (lbs/oz) Resp/min Hzgt943/68 82 Regular 191 / 12 98.3 (F)Physical [...] hemorrhageConstipationP brian: Colonoscopy will be performed at [facility] .Printed on 04/10/2018 Rj Colbert, 65323, 2000 Page 2 of 4Printed on 04/10/2018 Rj Colbert, 30959, 2000Risk & Medical Necessity: Diagnosis and management options are Extensive. The amount of data reviewedand/or ordered is Moderate. The level of risk is Moderate.Colin Shirley MD Rj Colbert, 68030, 2000 Page 3 of 4Printed on 04/10/2018 Rj Colbert, 34439, 1998Printed on 04/10/2018 Rj Colbert, 23963, 2000 Page 4 of 4Printed on 04/10/2018 Rj Colbert, 41435, 1998no change Normal [facility] Comment on above: Result Comment: Elec tronically Signed By: Colin Shirley MD\.br\Date and Time Signed: 04/17/18 13:15 EDT Inpatient Patient Summaryon 04-17-2018 [facility] InstructionsPERSON INFORMATION Name: RJ COLBERT PHYSICIANS Admitting Physician: Javier Shirley MD Physician: Colin Shirley MD PCP: Murphy WEISS MD Diagnosis: Rectal prolapse Comment: PATIENT EDUCATION INFORMATIONInstructions :Medication Leaflets:Follow up:With: Address: When: Colin Shirley [facility], [address] [place] [address] [place] [address] Business (1) Within 1 to 2 weeks MEDICATION LISTComment: Normal [facility] Main OR PACU I Recordon 03-28 Main OR PACU I Record PACU Phase I Document Type FT Summary Primary Physician: Colin Shirley MD Finalized Date/Time: 04/17/18 14:14:33 Pt. Name: RJ COLBERT /Sex: 2000 Male Med Rec #: [id number] Physician: Colin Shirley MD Financial #: [id number] Pt. Type: O Room/Bed: / Admit/Disch: 04/17/18 [...] By: Essie Guzman RN 04/17/18 14:14 Normal [facility] Main OR Preoperative Recordo n 04-17-2018 Main OR Preoperative Record Holding Area Document Type FT Summary Primary Physician: Colin Shirley MD Finalized Date/Time: 04/17/18 09:56:12 Pt. Name: RJ COLBERT /Sex: 2000 Male Med Rec #: [id number] Physician: Colin Shirley MD Financial #: [id number] Pt. Type: O Room/Bed: / Admit/Disch: 04/17/18 [...] [place] [address] to [facility], informed dr ojeda, placed at the Finalized By: Viki James RN Document Signatures Signed By: Viki James RN 04/17/18 09:56 [facility] Patient Education - Texton 0 04-17-2018 Patient Education - Text [facility] Coding Summary.on 04-02-2018 Coding Summary. CODING DATE: 018 FINAL [facility] STATUS: Home (Routine DC) PAYOR: [...] PROC EAPG STAT DESCRIPTION DOCTOR NAME DATE 40270 0133 Sigmoidoscopy, flexible; Colin Shirley MD 03/30/2018 with biopsy, single or multiple 74 Discontinued [facility] ([facility] Procedure After Administration of Anesthe 74856 Anesthesia for lower Colin Shirley MD 03/30/2018 intestinal endoscopic procedures, endoscope introduced distal to duodenum; not otherwise specified NOTE: The code number assigned matches the documented diagnosis and / or procedure in the patient's chart. However, the narrative phrase printed from the coding software may appear abbreviated, or result in slightly different terminology. Coded By: Sary Little Date Saved: 04/02/2018 04:16 pm [facility] Progress Note-Physicianon Progress Note-Physician Patient: RJ [...] minutes, Patient educated on smoking cesstation). Normal [facility] Comment on above: Result Comment: Elec tronically Signed By: Quincy Ojeda Jr, DO\.karen\Date and Time Signed: 04/01/18 07:53 EDT History and Physicalon 03-30 History and Physical Date: 03/10/2018 2:15 PMPatient Name: Rj ColbertAccount #: [id number]: MaleDOB (age): 2000 (17)Provider: Annie Benton Complaint: [...] rectal urgency, stool incontinence, stomachPrinted on 03/26/2018 Brittaney Coto03, 2000 Page 1 of 4Printed on 03/26/2018 Brittaney Coto03, 1998cramps, straining. Denies abdominal pain, abdominal swelling, [...] up blood.Vital Signs:BP(mmHg)Pulse(ppm )Rhythm Weight (lbs/oz) Resp/min Fqdo926/68 82 Regular 191 / 12 98.3 (F)Physical [...] hemorrhageConstipationP brian: Colonoscopy will be performed at [facility] .Printed on 03/26/2018 Rj Colbert, [id number], 2000 Page 2 of 4Printed on 03/26/2018 Rj Colbert, [id number], 2000Risk & Medical Necessity: Diagnosis and management options are Extensive. The amount of data reviewedand/or ordered is Moderate. The level of risk is Moderate.Colin Shirley MD Rj Colbert, [id number], 2000 Page 3 of 4Printed on 03/26/2018 Rj Colbert, [id number], 1998Printed on 03/26/2018 Rj Colbert, [id number], 2000 Page 4 of 4Printed on 03/26/2018 Rj Colbert, [id number], 2000No change Normal [facility] Comment on above: Result Comment: Elec tronically Signed By: Casper GAUTAM, Colin\.br\Date and Time Signed: 03/30/18 10:52 EDT Inpatient Patient Summaryon 03-30-2018 [facility] Instructions[facility]ERSON INFORMATION Name: RJ COLBERT PHYSICIANS Admitting Physician: Ronnell Shirley MDttending Physician: Colin Shirley MD PCP: Murphy WEISS MD Diagnosis: Internal hemorrhoids Comment: PATIENT EDUCATION INFORMATIONInstructions :Medication Leaflets:Follow up:With: Address: When: [facility], [address], [facility] [place] [address] Business (1) Within 1 to 2 weeks MEDICATION LISTComment: Normal [facility] Main OR Intraoperative Recor don 03-30-2018 Main OR Intraoperative Record IntraOp Document Type FT Summary Primary Physician: Colin Shirley MD Finalized Date/Time: 03/30/18 11:37:17 Pt. Name: RJ COLBERT /Sex: 2000 Male Med Rec #: [id number] Physician: Colin Shirley MD Financial #: [id number] Pt. Type: O Room/Bed: / Admit/Disch: 03/30/18 [...] Tori Capellan CST Role Performed Anesthesiologist of Legal Records Manager - Primary Scrub - Primary Record Time In 03/30/18 10:56:00 03/30/18 10:56:00 03/30/18 10:56:00 Time Out 03/30/18 11:13:00 06/04/18 11:13:00 03/30/18 11:13:00 Procedure COLONOSCOPY(.) COLONOSCOPY(.) COLONOSCOPY(.) Comments Last Modified By: Francy Miller RN, RN, Trisha A Ebel RN, Trisha A 03/30/18 11:14:48 03/30/18 11:14:48 03/30/18 11:14:48 Entry 4 Entry 5 Case Attendee Casper GAUTAM, Colin [facility] Role Performed Surgeon - Primary Scrub - [...] Out Quincy Ojeda Jr, DO, Given Participants Francy Miller RN, Salam MD, [facility] Hospital[facility]agi Rice CST, Molly Time Out Complete 03/30/18 10:57:00 [...] and tissue Entry 1 Skin Integrity Intact, [place], Warm, and Skin Abnormality No Dry Outcomes [...] RN Patient Status Stable Skin. Condition Intact, [place], Warm, and Dry Airway Maintenance Oxygen in Use? No Airway Device N/A Outcomes Met? Yes Last Modified By: Francy Miller RN 03/30/18 07:37:17 Post-Care Text: The patient is free from signs and symptoms of injury related to transfer/transport General Comments: Report given to PACU,RN./RICHARDdemolitionist Administration FT Pre-Care Text: Verifies allergies, administers prescribed medications and solutions, administers prescribed antibiotic therapy and immunizing agents as ordered, evaluates response to medications Administers prescribed medications and solutions Entry 1 Expiration Date Yes Outcomes Met? Yes Verified Last Modified By: Francy Miller RN 03/30/18 07:37:26 Post-Care Text: The patient received appropriate medication(s) safely administered during the perioperative period For [place] please see scanned medication reconcilliation form for [...] 11:14 Addie Oreilly CST 03/30/18 11:37 Normal [facility] Main OR PACU I Recordon Main OR PACU I Record PACU Phase I Document Type FT Summary Primary Physician: Colin Shirley MD Finalized Date/Time: 03/30/18 11:29:28 Pt. Name: RJ COLBERTO.B./Sex: 2000 Male Med Rec #: [id number] Physician: Colin Shirley MD Financial #: [id number] Pt. Type: O Room/Bed: / Admit/Disch: 03/30/18 [...] By: Essie Guzman RN 03/30/18 11:29 Normal [facility] Main OR Preoperative Recordo n 03-30-2018 Main OR Preoperative Record Holding Area Document Type FT Summary Primary Physician: Colin Shirley MD Finalized Date/Time: 03/30/18 10:16:59 Pt. Name: FILEMONRJO.B./Sex: 2000 Male Med Rec #: [id number] Physician: Colin Shirley MD Financial #: [id number] Pt. Type: O Room/Bed: / Admit/Disch: 03/30/18 [...] No Patient states Yes Comment - Adult [facility]- care provider postop adult Supervision supervision available Case Cancelled in No Holding Area see comments below for reason Last Modified By: Kathleen Gómez RN 03/30/18 09:54:58 General Comments: Pt completed prep at 0540 and remained NPO/JANET,RN Finalized By: Kathleen Gómez RN Document Signatures Signed By: Kathleen Gómez RN 03/30/18 10:16 Normal [facility] Patient Education - Texton 0 03-30-2018 Patient Education - Text [facility] Progress Note-Physicianon Progress Note-Physician Patient: RJ [...] MaximumTemp 36.5 (MAR 30 11:15) 36.3 (MAR 30:05) 36.5 (MAR 30:15)Heart Rate 72 (MAR 30 11:30) 67 (MAR [...] vomiting. Plan Transfer/ Discharge: Condition stable. Normal [facility] Comment on above: Result Comment: Elec tronically Signed By: Quincy Ojeda Jr, DO\.karen\Date and Time Signed: 03/30/18 11:55 EDT Vital Signs Date Time Vital Sign Value Performing Clinician Facility 07-14-2024 09:040 Body height 177.8 cm Benson Weiss MD Work Phone: [facility] 07-14-2024 09:26-0400 Body mass index (BMI) [Ratio] 28.84 kg/m2 Benson Weiss MD Work Phone: [facility] 07-14-2024 09:26-0400 Body temperature 97.5 [degF] Benson Weiss MD Work Phone: [facility] 07-14-2024 09:26-0400 Body weight 91.17 kg Benson Weiss MD Work Phone: [facility] 07-14-2024 09:26-0400 Diastolic blood pressure 70 mm[Hg] Benson Weiss MD Work Phone: [facility] 07-14-2024 09:26-0400 Heart rate 88 /min Benson Weiss MD Work Phone: [facility] 07-14-2024 09:26-0400 Respiratory rate 20 /min Benson Weiss MD Work Phone: [facility] 07-14-2024 09:26-0400 SaO2% (BldA) [Mass fraction] 99 % Benson Weiss MD Work Phone: [facility] 07-14-2024 09:26-0400 Systolic blood pressure 118 mm[Hg] Benson Weiss MD Work Phone: [facility] 01-26-2024 14:24-0400 Body height 177.8 cm Reynold Kuo MD Work Phone: [facility] 01-26-2024 14:24-0400 Body mass index (BMI) [Ratio] 25.75 kg/m2 Reynold Kuo MD Work Phone: [facility] 01-26-2024 14:24-0400 Body weight 81.4 kg Reynold Kuo MD Work Phone: [facility] 03-28-2022 11:11-0400 Body height 180.3 cm Arnold Genao MD Work Phone: [facility] 03-28-2022 11:11-0400 Body weight 90.27 kg Arnold Genao MD Work Phone: [facility] 03-28-2022 11:11-0400 Diastolic blood pressure 65 mm[Hg] Arnold Genao MD Work Phone: [facility] 03-28-2022 11:11-0400 Heart rate 80 /min Arnold Genao MD Work Phone: [facility] 03-28-2022 11:11-0400 SaO2% (BldA) [Mass fraction] 100 % Arnold Genao MD Work Phone: [facility] 03-28-2022 11:11-0400 Systolic blood pressure 108 mm[Hg] Arnold Genao MD Work Phone: [facility] Encounters Encounter Date Encounter Type Care Provider Facility Start: 11-08-2024 End: 11-08-2024 Clinisync Result Encounter Generic External Data Provider [facility] Unsolicited Start: 11-08-2024 End: 11-08-2024 Clinisync Result Encounter Generic External Data Provider [facility] External [facility] Unsolicited Start: 10-14-2024 End: 10-14-2024 Clinisync Result Encounter Generic External Data Provider [facility] External [facility] Unsolicited Start: 10-14-2024 End: 10-14-2024 Clinisync Result Encounter Generic External Data Provider [facility] External [facility] Unsolicited Start: 09-13-2024 End: 09-13-2024 Clinisync Result Encounter Generic External Data Provider [facility] External [facility] Unsolicited Start: 09-13-2024 End: 09-13-2024 Clinisync Result Encounter Generic External Data Provider [facility] External [facility] Unsolicited Start: 09-09-2024 ambulatory Jean Carlos Boudreaux acility:[facility] Start: 08-18-2024 End: 08-19-2024 Clinisync Result Encounter Generic External Data Provider [facility] External [facility] Unsolicited Start: 08-18-2024 End: 08-19-2024 Clinisync Result Encounter Generic External Data Provider [facility] External [facility] Unsolicited Start: 07-23-2024 End: 07-26-2024 Clinisync Result Encounter Generic External Data Provider [facility] External [facility] Unsolicited Start: 07-23-2024 End: 07-26-2024 Clinisync Result Encounter Generic External Data Provider [facility] External [facility] Unsolicited Start: 07-14-2024 End: 07-14-2024 Bamboo flowsheet Benson Weiss MD Work Phone: [facility] Start: 07-14-2024 End: 07-14-2024 Bamboo flowsheet Benson Weiss MD Work Phone: [facility] Start: 07-14-2024 End: 07-14-2024 Office outpatient visit 15 minutes Benson Weiss MD Work Phone: [facility] Comment on above: Seasonal allergic rh initis due to pollen (Primary Dx); Chronic constipation; Chronic schizophrenia (CMS/HCC) Start: 07-14-2024 End: 07-14-2024 ambulatory BENSON WEISS Not Available Start: 01-26-2024 End: 01-26-2024 ambulatory REYNOLD KUO [facility] Start: 01-26-2024 End: 01-26-2024 Postop follow up visit related to original px Reynold Kuo MD Work Phone: [facility] Comment on above: Rectal prolapse (Charlee hortensia Dx) Start: 01-10-2024 End: 01-10-2024 Evaluation and management of inpatient [facility] Start: 01-09-2024 End: 01-10-2024 Evaluation and management of inpatient [facility] Start: 01-08-2024 End: 01-08-2024 Emergency department patient visit [facility] Start: 01-07-2024 End: 01-07-2024 ambulatory BENSON WEISS Not Available Start: 03-26-[address] DOCTOR NEGRON Facility :[facility] Start: 02-19-2023 End: 02-20-[address] DOCTOR NEGRON Facility:[facility] Start: 01-15-2023 End: 01-16-[address] DOCTOR NEGRON Facility:[facility] Start: 12-20-2022 End: 12-21-[address] DOCTOR NEGRON Facility:[facility] Start: 11-20-2022 End: 11-21-[address] [...] (Primar y Dx) Start: 04-17-2018 End: [facility]-18-[facility] Start: 03-30-2018 End: 03-31-2018 [facility] Facility:[facility] Procedures Date Procedure Procedure Detail Performing Clinician Start: 11-08-2024 ALL CBC WITH AUTO DIFF Generic External Data Provider Start: 10-14-2024 ALL CBC WITH AUTO DIFF Generic External Data Provider Start: 09-13-2024 ALL CBC WITH AUTO DIFF Generic External Data Provider Start: 08-18-2024 ALL CBC WITH AUTO DIFF Generic External Data Provider Start: 07-23-2024 ALL CBC WITH AUTO DIFF Generic External Data Provider Plan of Treatment Date Care Activity Detail Author Start: 08-05-2029 DTaP,Tdap and Td Vaccines (8 - Td or Tdap) DTaP,Tdap and Td Vaccines (8 - Td or Tdap) [facility] Start: 01-25-2025 Adult BMI Screening Adult BMI Screen ing [facility] Start: 01-25-2025 Tobacco Screening Tobacco Screening [facility] Start: 01-12-2025 End: 01-12-2025 Patient encounter procedure 01/12/2025 9:30 AM EDT Office Visit [facility] [address] [place] [id number] Benson Weiss MD [address] [place] [id number] [facility] Start: 07-14-2024 End: 07-14-2024 Patient encounter procedure 07/14/2024 9:30 AM EDT Office Visit [facility] [address] [place] [address] Benson Weiss MD [address] [place] [address] Arrived [facility] Comment on above: Arrived Start: 06-27-2024 Influenza vaccination [facility] Start: 06-27-2023 COVID-19 Vaccine ( season) COVID-19 Vaccine ( season) [facility] Start: 2017 Urine microalbumin profile DTAP,TDAP,TD (1 - Tdap) [facility] Start: 2016 Adult BMI Follow Up Plan Adult BMI Follow Up Plan [facility] Start: 2016 HEPATITIS C SCREENING HEPATITIS C SC REENING [facility] Start: 2016 HIV SCREENING HIV SCREENING [facility] Start: 2012 PEDS TO ADULT TRANSI TION ANNUAL ASSESSMENT PEDS TO ADULT TRANSITION ANNUAL ASSESSMENT [facility] Start: 2010 Adult depression screening assessment DEPRESSION SCREENING [facility] Start: 2010 PEDS TO ADULT TRANSI TION INITIAL DISCUSSION PEDS TO ADULT TRANSITION INITIAL DISCUSSION [facility] Start: 2009 HPV VACCINE (1 - Mal e 2-dose series) HPV VACCINE (1 - Male 2-dose series) [facility] Start: 2008 MENINGOCOCCAL B: Consider based on risk (1 of 2 - Risk Bexsero 2-dose series) MENINGOCOCCAL B: Consider based on risk (1 of 2 - Risk Bexsero 2-dose series) [facility] Start: 1998 Medicare Annual Well ness (AWV) Medicare Annual Wellness (AWV) [facility] Immunizations Immunization Date Immunization Notes Care Provider [facility] 12-08-2020 COVID-19, mRNA, LNP- S, PF, 30mcg/0.3mL Dose Reynold Kuo MD Work Phone: [facility] 11-17-2020 COVID-19, mRNA, LNP- S, PF, 30mcg/0.3mL Dose Reynold Kuo MD Work Phone: [facility] 08-31-2020 influenza, injectabl e, quadrivalent, preservative free Reynold Kuo MD Work Phone: [facility] 08-31-2020 influenza virus vacc ine, unspecified formulation Reynold Kuo MD Work Phone: [facility] 08-18-2019 influenza, injectabl e, quadrivalent, preservative free Reynold Kuo MD Work Phone: [facility] 08-05-2019 tetanus toxoid, redu diamond diphtheria toxoid, and acellular pertussis vaccine, adsorbed Reynold Kuo MD Work Phone: [facility] 12-02-2017 tetanus toxoid, redu diamond diphtheria toxoid, and acellular pertussis vaccine, adsorbed Reynold Kuo MD Work Phone: [facility] 08-21-2017 influenza, injectabl e, quadrivalent, preservative free Reynold Kuo MD Work Phone: [facility] 08-28-2016 influenza, injectable,quadrivalent, preservative free, pediatric Reynold Kuo MD Work Phone: [facility] 08-28-2016 meningococcal polysaccharide (groups A, C, Y and W-135) diphtheria toxoid conjugate vaccine (MCV4P) Reynold Kuo MD Work Phone: [facility] 08-16-2015 influenza, seasonal, injectable Reynold Kuo MD Work Phone: [facility] 08-07-2011 tetanus toxoid, redu diamond diphtheria toxoid, and acellular pertussis vaccine, adsorbed Reynold Kuo MD Work Phone: [facility] 08-17-2008 hepatitis A vaccine, pediatric/adolescent dosage, 2 dose schedule Reynold Kuo MD Work Phone: [facility] 02-02-2008 hepatitis A vaccine, pediatric/adolescent dosage, 2 dose schedule Reynold Kuo MD Work Phone: [facility] 02-02-2008 varicella virus vaccine Edwin Kuo MD Work Phone: [facility] 01-18-2005 diphtheria, tetanus toxoids and acellular pertussis vaccine Reynold Kuo MD Work Phone: [facility] 07-18-2004 DTaP-hepatitis B and poliovirus vaccine Reynold Kuo MD Work Phone: [facility] 07-17-2004 measles, mumps and rubella virus vaccine Reynold Kuo MD Work Phone: [facility] 02-08-2003 diphtheria, tetanus toxoids and acellular pertussis vaccine, unspecified formulation Reynold Kuo MD Work Phone: [facility] 02-08-2003 haemophilus influenz ae type b vaccine, conjugate unspecified formulation Reynold Kuo MD Work Phone: [facility] 02-08-2003 hepatitis B vaccine, pediatric or pediatric/adolescent dosage Reynold Kuo MD Work Phone: [facility] 02-08-2003 measles, mumps and rubella virus vaccine Reynold Kuo MD Work Phone: [facility] 02-08-2003 poliovirus vaccine, unspecified formulation Reynold Kuo MD Work Phone: [facility] 02-08-2003 varicella virus vaccine Edwin Kuo MD Work Phone: [facility] 2000 diphtheria, tetanus toxoids and acellular pertussis vaccine, unspecified formulation Reynold Kuo MD [facility] Phone: [facility] 1998 haemophilus influenz ae type b vaccine, conjugate unspecified formulation Reynold Kuo MD Work Phone[facility] 1998 poliovirus vaccine, unspecified formulation Reynold Kuo MD [facility] Phone[facility] 1998 hepatitis B vaccine, pediatric or pediatric/adolescent dosage Reynold Kuo MD Work Phone: [facility] 1998 hepatitis B vaccine, pediatric or pediatric/adolescent dosage Reynold Kuo MD Work Phone: [facility] Payers Date Payer Category Payer Medicaid [id number] 2023 Self-pay 2021 Medicaid [place] [id number] 2021-Present [phone] [address] [place] [address] Medicaid [id number] 2018 Medicare MEDICARE MEDICAR E A AND B [id number] 2018-Present [phone] [address] [address] [place] [address] Medicare [id number] 2018 Medicare [id number] 2018 Medicaid [id number] 1998 Unknown [id number] 2.16.840.1.624668.3.579.2.593 1998 Unknown [id number] 2.16.840.1.639461.3.579.2.593 1998 Unknown [id number] 2.16.840.1.456343.3.579.2.593 1998 Unknown [id number] 2.16.840.1.509976.3.579.2.593 1998 Unknown [id number] 2.16.840.1.750819.3.579.2.593 1998 Unknown [id number] 2.16.840.1.127915.3.579.2.593 1998 Unknown [id number] 2.16.840.1.288047.3.579.2.593 1998 Unknown [id number] 2.16.840.1.394067.3.579.2.593 1998 Unknown [id number] 2.16.840.1.982463.3.579.2.593 1998 Unknown [id number] 2.16.840.1.504183.3.579.2.593 1998 Unknown [id number] 2.16.840.1.708382.3.579.2.593 1998 Unknown [id number] 2.16.840.1.461957.3.579.2.593 1998 Unknown [id number] 2.16.840.1.065314.3.579.2.1286 1998 Unknown [id number] 2.16.840.1.485744.3.579.2.1286 1998 Unknown [id number] 2.16.840.1.690255.3.579.2.1286 1998 Unknown [id number] 2.16.840.1.315949.3.579.2.1286 1998 Unknown [id number] 2.16.840.1.714715.3.579.2.1286 1998 Unknown [id number] 2.16.840.1.488128.3.579.2.1259 1998 Unknown [id number] 2.16.840.1.382852.3.579.2.1259 1959 Medicaid [id number] 1961 Medicare [id number] Social History Date Type Detail Facility Start: 03-01-2015 End: 05-12-2023 Tobacco smoking status NHIS Never smoked tobacco [facility] Start: 03-01-2015 End: 01-26-2024 Tobacco use and exposure Smokeless tobacco non-user [facility] Start: 03-28-2022 Alcohol intake Current non-dr inspector salvage of alcohol (finding) [facility] Start: 2000 Sex Assigned At Not on file C [facility] Start: 03-18-2022 End: 03-28-2022 Exposure to SARS-CoV-2 (event) Not sure [facility] Start: 01-26-2024 Alcohol intake Lifetime non-d juan (finding) [employer] Start: 01-09-2024 End: 07-14-2024 History of Social function [employer] [facility] Start: 01-09-2024 End: 07-14-2024 [facility] [employer] Has the [employer], or [employer] threatened to shut off services in your home in past 12Mo No [employer] How often to you hav e a drink containing alcohol? Never [employer] How many standard drinks containing alcohol do you have on a typical day? Patient does not drink [employer] Start: 01-07-2024 End: 07-14-2024 Alcoholic beverage intake Ex-drinker (finding) [facility] Goals Date Patient Goal Desired Activity /State Personal health goal Comment on above: Formatting of this n ote might be different from the original. Evaluation of progress towards goal: Soren Conner, states back to retirement. Clinical Notes 06-29-2021 to 07-14-2024 Benson Weiss [...] schizophrenia. History of MR and lives in retirement, accompanied by caregiver. Patient doing well today. [...] medication and continue. documented in this encounter [facility] 01-26-2024 History of Presen t illness Narrative Images from the original note were not included. [facility] [address] [id number] Patient: Rj Colbert Date of : 2000 Encounter Date: 01/26/2024 History of Present Illness: The patient is 23 y.o. male and presents for postoperative follow-up s/p repair of rectal prolapse. Patient presented with incarcerated prolapse. He underwent Altemeier procedure. Patient now follows up. Patient is accompanied by heel edge inker machine. He is doing well. He denies any [...] Reynold Kuo MD documented in this encounter [facility] 03-28-2022 Miscellaneous Notes Spoke with the pharmacist and she states that she does not provide food items. She will speak with the nurse at the retirement. Pharmacy, [facility], [facility], phone , any pharmacist to clarify about carbonate? CALM is retirement able to order as food item? Please call to discuss. documented in this encounter [facility] 03-28-2022 Miscellaneous Notes Opened in error documented in this encounter [facility] 03-28-2022 Miscellaneous Notes Addended by: ARNOLD GENAO on: 03/28/2022 03:11 PM Modules accepted: Orders Addended by: CHARLEY MCCLELLAND on: 03/28/2022 02:47 PM Modules accepted: Orders documented in this encounter [facility] 03-28-2022 Note HNO ID: [id number] Author: Arnold Genao MD Service: ? Author Type: Physician Type: Progress Notes Filed: 03/28/2022 11:58 AM Note Text: COLORECTAL SURGERY March 28, 2022 Rj Colbert 21 year old Chief Complaint: hematochezia History of Present Illness: Rj Colbert is a 21 year old male presents to the office for evaluation of hematochezia. Last seen in the office on 11/16/21 with Cristal Nava SPORTS DEVELOPMENT OFFICER for follow up visit after he underwent [...] exam Anorectal: External exam reveals: see below Director [employer] present: yes Assessment Assessment and Plan: Rj Colbert is a 21 year old male with straining and occasional rectal bleeding. Today, we talked about adding a magnesium supplement CALM to his regimen to decrease straining. I am of the opinion that more surgery is not the best option at this time. Arnold Genao MD Colorectal Surgery [facility] 03-28-2022 Nurse Note Calm education given for constipation. What is the reason for your visit today? Established patient presents for hematochezia. Who is your referring physician? Are you having poor oral intake? NO Have you had unintentional weight loss of 15 lbs/7 Kg in the last 3-6 months? NO Bowels: regular Wound: None Temperature: No Drains: No documented in this encounter [facility] 03-28-2022 History of Presen t illness Narrative COLORECTAL SURGERY March 28, 2022 Rj Colbert 21 year old Chief Complaint: hematochezia History of Present Illness: Rj Colbert is a 21 year old male presents to the office for evaluation of hematochezia. Last seen in the office on 11/16/21 with Cristal Nava SPORTS DEVELOPMENT OFFICER for follow up visit after he underwent [...] exam Anorectal: External exam reveals: see below Director Geothermal Operations present: yes Assessment Assessment and Plan: Rj Colbert is a 21 year old male with straining and occasional rectal bleeding. Today, we talked about adding a magnesium supplement CALM to his regimen to decrease straining. I am of the opinion that more surgery is not the best option at this time. Arnold Genao MD Colorectal Surgery documented in this encounter [facility] 11-16-2021 Note HNO ID: [id number] Author: Cristal Nava APRN.K 9 POLICE OFFICER Service: ? Author Type: Nurse Practitioner Type: [...] results with patient and POA. 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 Anesthesiologist: Michael Martínez MD PRINCIPAL CLERK TYPIST: Hunter Massey APRN.PRINCIPAL CLERK TYPIST Performed by: SAMAN Indications and Patient Condition Preoxygenated: yes Patient position: sniffing Manual In-Line Stabilization: No Difficult Mask: No Indications for airway management: anesthesia anesthesia circuit Method: asleep Cricoid Pressure: No Final Airway Details Final airway type: supraglottic airway Number of attempts at approach: 1 Final Supraglottic Airway: i-gel Size 4 Seal Adequate: yes Airway not difficult SIGNATURE: Hunter Massey APRN.PRINCIPAL CLERK TYPIST PATIENT NAME: Rj Colbert DATE: October 17, 2021 TIME: 8:54 AM CSN: [id number] [facility] 08-31-2021 Note HNO ID: [id number] Author: Arnold Genao MD Service: ? Author [...] Anorectal: External exam reveals : see below Director Geothermal Operations present: yes Assessment Assessment and Plan: Rj Colbert is a 21 year old male who is doing relatively well after his recent rubber band ligation. He still has some rectal bleeding and it is difficult to assess the exact amount. If the bleeding persists we will consider internal hemorrhoidectomy. 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 Author [...] (222 lb 4.8 oz) BMI 31.90 kg/m? Director Geothermal Operations present: Yes Rj Colbert is a 21 year old male presents with complaint of rectal bleeding with prolapsing Grade 3 internal hemorrhoids on exam. Our plan is to perform an EUA and rubber band ligation of internal hemorrhoids at the [facility]. Medical Decision Making: Arnold Genao MD Colorectal Surgery [facility] Evaluation note Diagnosis Hematochezia- Primary Blood in stool [facility]- Primary [facility] Seasonal allergic rhinitis due to pollen- Primary Chronic constipation Unspecified constipation Chronic schizophrenia (CMS/HCC) Unspecified schizophrenia, chronic condition documented [facility] Family History No Family History Records FoundNo Family History Records FoundNo Family History Records FoundNo Family History Records FoundNo Family History Records FoundNo Family History Records FoundNo Family History Records FoundNo Family History Records Found Advance Directives Documents on File Type Date Recorded 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 DATE CREATED AUTHOR AUTHOR'S ORGANIZ ATION 10/31/2021 [facility] DATE CREATED AUTHOR AUTHOR'S ORGANIZ ATION 03/29/2022 [facility] DATE CREATED AUTHOR AUTHOR'S ORGANIZ ATION 04/04/2023 [facility] DATE CREATED AUTHOR AUTHOR'S ORGANIZ ATION 01/10/2024 [facility] DATE CREATED AUTHOR AUTHOR'S ORGANIZ ATION 01/27/2024 [facility] DATE CREATED AUTHOR AUTHOR'S ORGANIZ ATION 07/16/2024 [facility] dicri Specialists [facility] DATE CREATED AUTHOR AUTHOR'S ORGANIZ ATION 09/11/2024 [facility] Source Comments (unrecognize d section and content) In the event this informatio n is protected by the Federal Confidentiality of Alcohol and Drug Abuse Patient Records regulations: The Federal rules restrict any use of the information to criminally investigate or prosecute any alcohol or drug abuse patient.[facility] the event this information is protected by the Federal Confidentiality of Alcohol and Drug Abuse Patient Records regulations: The Federal rules restrict any use of the information to criminally investigate or prosecute any alcohol or drug abuse patient.[facility] the event this information is protected by the Federal Confidentiality of Alcohol and Drug Abuse Patient Records regulations: The Federal rules restrict any use of the information to criminally investigate or prosecute any alcohol or drug abuse patient.[facility] Reason for Visit (unrecogniz ed section and content) Reason Comments Established Patient Follow-Up Rectal Bleeding Reason Comments Opened In Error no documentation-err or Reason Comments Medication Problem magnesium carbonate? vs? CALM Reason Comments Post-op 2 week Reason Comments Follow-up 6m f/up Care Teams (unrecognized sec tion and content) Grinder Setup Operator Relationship Specialty Start Date End Date Benson Weiss MD [address] [facility] [address] [facility] 01/08/24 Grinder Setup Operator Relationship Specialty Start Date End Date Benson Weiss MD [address] [place] [phone] PCP [facility] 01/07/24 Grinder Setup Operator Relationship Specialty Start Date End Date Benson Weiss MD [address] [place] [phone] [facility] 01/07/24 Grinder Setup Operator Relationship Specialty Start Date End Date Benson Weiss MD [address] [place] [phone] [facility] 01/07/24 Grinder Setup Operator Relationship Specialty Start Date End Date Benson Weiss MD [address] [place] [phone] [facility] 01/07/24 Grinder Setup Operator Relationship Specialty Start Date End Date Benson Weiss MD [address] [place] [address] [facility] 01/07/24 FOR RECORDS PERTAINING TO PATIENTS WHO [...] BE BASED ON THE PRIMARY CLINICAL RECORDS. [employer] [facility]. provides no warranty or guarantee of the accuracy or completeness of information in this document.
== END 2024-12-08 15:53 | disposition home or self-care (01) ==
LOC: LAB 15:52
PROVIDERS: PCP Family Medicine; Visit Provider Registered Nurse Psychiatric/Mental Health
DX: Z79.899 Other long term (current) drug therapy (principal)
CPT/HCPCS: 36415; 85025

== ENCOUNTER 2025-01-04 15:01 | Outpatient (OUT) | payer MEDICARE, MEDICAID, SELFPAY ==
--- OUTSIDE RECORDS SUMMARY | 2025-01-04 15:24 | XMS_ITS | CCD ---
Author Organization [facility] Care Team Providers Care Adjuster And Inspector Name Role Phone Salam, Shaw Unavailable Unavailable Salam, Shaw Unavailable Unavailable Salam, Shaw Unavailable Unavailable NADERER, [phone] UNKNOWN Unavailable Unavailable Salam, Shaw Unavailable Unavailable Salam, Shaw Unavailable Unavailable Salam, Shaw Unavailable Unavailable NADERER, BENSON~[phone] UNKNOWN Unavailable Unavailable Unavailable Primary Care Provider [...] MISC, DR VALDOVINOS Consulting Unavailable NADERERoxana, DR BENSON Gregory Primary Care Unavailable NADERERoxana, BENSON Primary Care Unavailable ZOË POOL Attending Unavailable NADERERoxana, BENSON Primary Care Unavailable TABITHA MERINO Attending Unavailable DARLING, PUSHPA Kong Admitting Unavailable PAUL, JOHN DEL ROSARIO Attending Unavailable ISELA, BENSON Primary Care Unavailable ERYNOLD KUO Attending Unavailable BENSON WEISS Referring Unavailable ISELA, BENSON Primary Care Unavailable ISELA, BENSON Attending Unavailable ISELA, BENSON Attending Unavailable Benson Weiss MD Primary Care Provider Jean Carlos Hdez Attending Unavailab Jean Carlos Powell Admitting Unavailab karen [facility]EDENO [facility], PHYSICIAN Primary Care Unavailable Benson Weiss MD Unavailable Benson Weiss MD Primary Care Provider [phone] Allergies Allergy Classification Reported Allergen(s) Allergy Type Date of Onset Reaction(s) Facility (1 source) No Known Medication Allergies; Translations: [No Known Medication Allergies] Propensity to adverse reactions (disorder) [facility] Medications Current Medications Medication Drug Class(es) Dates Sig (Normalized) Sig (Original) acetaminophen 500 mg oral tablet (13 sources) Start: 01-10-2024 End: 01-12-2025 take 2 tablets by mouth every six hours as needed for pain and fever and fever acetaminophen (Tylenol) 500 MG tablet Indications: Fever, unspecified fever cause Take 2 tablets (1,000 mg) by mouth every 6 (six) hours if needed for mild pain 30 tablet 11 01/13/2024 01/12/2025 Active Start: 10-17-2021 take 2 tablets by mo uth every six hours acetaminophen (TYLENOL) 325 mg tablet Take 2 tablets by mouth every 6 hours. 0 10/17/2021 Active Comment on above: Take 2 tablets by mo uth every 6 hours. benztropine mesylate 2 mg oral tablet (13 sources) Anticholinergic, Antihistamine take 1 tablet by mouth in the morning benztropine (Cogentin) 2 MG tablet Take 2 mg by mouth in the morning and 2 mg in the evening. Active Comment on above: Take 2 mg by mouth t wice daily. calcium polycarbophil 625 mg oral tablet (13 sources) Start: 09-01-20 take 1 tablet by mouth once daily polycarbophil (Fiber-Lax) 625 MG tablet Indications: Chronic constipation Take 1 tablet (625 mg) by mouth Daily 30 tablet 5 09/01/2024 Active Start: 04-07-2024 take 1 tablet by claribel th once daily polycarbophil (Fiber-Lax) 625 MG tablet Indications: Chronic constipation Take 1 tablet (625 mg) by mouth Daily 30 tablet 04/07/2024 Active take 1 tablet by claribel th in the morning, then take 1 tablet by mouth at bedtime polycarbophil (FIBERCON) 625 mg tablet Take 1 tablet (625 mg total) by mouth in the morning and 1 tablet (625 mg total) before bedtime. 0 Active Comment on above: Take 625 mg by mouth . clonazePAM 0.5 mg oral tablet (13 sources) Benzodiazepine take 1 tablet by mouth [...] needed. docusate sodium 100 mg oral capsule (13 sources) Start: 09-28-2024 take 1 capsule by mouth in the morning Docusate Sodium (DSS) 100 MG capsule Indications: Chronic constipation Take 1 capsule (100 mg) by mouth in the morning. 60 capsule 5 09/28/2024 Active Start: 11-04-2023 take 1 capsule by mo [facility] in the morning Docusate Sodium (DSS) 100 MG capsule Indications: Chronic constipation Take 1 capsule (100 mg) by mouth in the morning. 60 capsule 5 11/04/2023 Active Comment on above: Take 100 mg by mouth twice daily. FLUoxetine 40 mg oral capsule (13 sources) Serotonin Reuptake Inhibitor take 1 capsule by mouth in the morning FLUoxetine (PROzac) 40 MG capsule Take 40 mg by mouth in the morning and 40 mg in the evening. Active take 1 capsule by mouth twice da [place] FLUoxetine (PROzac) 40 MG capsule Take 40 mg by mouth 2 (two) times a day. 0 Active Comment on above: Take 40 mg by mouth once daily. haloperidol 10 mg oral tablet (13 sources) Typical Antipsychotic take 1 tablet by mouth in the morning haloperidol (Haldol) 10 MG tablet Take 10 mg by mouth in the morning and 10 mg in the evening. Active take 1 tablet by mouth twice cathy ly haloperidol (HALDOL) 10 mg tablet Take 10 mg by mouth 2 (two) times a day. 0 Active Comment on above: Take 10 [...] for pain. loratadine 10 mg oral tablet (13 sources) Start: 12-18-19 End: 12-17-19 take 1 [...] mouth nightly. 0 Active polyethylene glycol 3350 65545 mg powder for oral solution (4 sources) [...] Episodic Attention-deficit, conduct, and disruptive behavior disorders (9 sources) Oppositional defiant disorder; Translations: [Oppositional defiant disorder] Onset: 01-07-2024 01-07-2024 Chronic Developmental disorders (9 sources) Mild intellectual disability; Translations: [Mild intellectual disabilities] Onset: 01-07-2024 01-07-2024 Chronic Disorders usually diagnosed in infancy, childhood, or adolescence (9 sources) Tic disorder; Translations: [Tic disorder, unspecified] Onset: 01-07-2024 01-07-2024 Chronic Gastrointestinal hemorrhage (1 source) Blood-tinged feces; Translations: [Melena] Episodic Other aftercare (4 sources) 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; Translations: [OTH [employer] PERSON CURRENT DRUG THERAPY] Onset: 02-19-2023 Episodic Other upper respiratory disease (11 sources) Allergic rhinitis due to pollen; Translations: [Allergic rhinitis due to pollen] Onset: 01-07-2024 01-07-2024 Chronic Schizophrenia and other psychotic disorders (14 sources) Schizophrenia; Translations: [Schizophrenia, unspecified] Onset: 07-10-2021 07-10-2021 Chronic Unclassified (1 source) Bowel Issue Onset: 01-08-2024 Unclassified (1 source) Post-op Onset: 01-26-2024 Unclassified (1 source) Medical Problem Onset: 01-09-2024 Unclassified (1 source) [place] [facility] Onset: 01-09-2024 Past or Other Problems Problem Classification Problem Date Documented Da te Episodic/Chronic Hemorrhoids (3 sources) Hemorrhoids; Translations: [Unspecified hemorrhoids] Onset: 10-17-2021 10-17-2021 Episodic Malaise and fatigue (9 sources) Fatigue; Translations: [Other fatigue] Onset: 01-07-2024 01-07-2024 Episodic Other gastrointestinal disorders (11 sources) Chronic constipation; Translations: [Other constipation] Onset: 01-07-2024 01-07-2024 Episodic Other nutritional; endocrine; and metabolic disorders (12 sources) Developmental delay; Translations: [Unspecified lack of expected normal physiological development in childhood] Onset: 07-10-2021 07-10-2021 Episodic Results Test Name Value Interpretation Reference Range Facility ALL CBC WITH AUTO DIFFon BASOPHILS ABSOLUTE AUTO 0 [facility] Basophils/100 WBC (Bld) 0.5 % 0.2 - 2.0 % [facility] Eosinophils/100 WBC (Bld) 1.5 % 0.9 - 7.0 % [facility] Erythrocyte distribution width (RBC) [Ratio] 20.7 % High 11.0 - 15.0 % [facility] Hematocrit (Bld) [Volume fraction] 40.5 % Low 42.0 - 54.0 % [facility] Hemoglobin (Bld) [Mass/Vol] 11.3 g/dL Low 14.0 - 18.0 g/dL [facility] IMMATURE GRANULOCYTES ABS AUTO 0.02 [facility] Immature granulocytes/100 WBC (Bld) 0.3 % 0.0 - 0.5 % [facility] Interpretation and review of laboratory results Abnormal [facility]TES [facility] WBC (Bld) 26.4 % 20.5 - 60.0 % [facility] MCH (RBC) [Entitic mass] 18.8 pg Low 25.9 - 34.0 pg [facility] MCHC (RBC) [Mass/Vol] 27.9 g/dL Low 29.9 - 35.2 g/dL [facility] MCV (RBC) [Entitic vol] 67.5 fL Low 80.0 - 94.0 fL [facility] MONOCYTES ABSOLUTE AUTO 0.8 [facility] Monocytes/100 WBC (Bld) 10.6 % 1.7 - 12.0 % [facility] NEUTROPHILS ABSOLUTE AUTO 4.5 [facility] Neutrophils/100 WBC (Bld) 60.7 % 43.0 - 75.0 % [facility] Platelet mean volume (Bld) [Entitic vol] 9.9 fL 9.5 - 13.5 [facility] PLT 284 [facility] RBC 6 [facility] WBC 7.4 [facility] ALL CBC WITH AUTO DIFFon BASOPHILS ABSOLUTE AUTO 0 [facility] Basophils/100 WBC (Bld) 0.7 % 0.2 - 2.0 % [facility] Eosinophils/100 WBC (Bld) 0.5 % Low 0.9 - 7.0 % [facility] Erythrocyte distribution width (RBC) [Ratio] 20.8 % High 11.0 - 15.0 % [facility] Hematocrit (Bld) [Volume fraction] 40.4 % Low 42.0 - 54.0 % [facility] Hemoglobin (Bld) [Mass/Vol] 11.3 g/dL Low 14.0 - 18.0 g/dL [facility] IMMATURE GRANULOCYTES ABS AUTO 0.02 [facility] Immature granulocytes/100 WBC (Bld) 0.3 % 0.0 - 0.5 % [facility] Interpretation and review of laboratory results Abnormal [facility] LYMPHOCYTES ABSOLUTE AUTO 1.6 [facility] Lymphocytes/100 WBC (Bld) 26.3 % 20.5 - 60.0 % [facility] MCH (RBC) [Entitic mass] 18.8 pg Low 25.9 - 34.0 pg [facility] MCHC (RBC) [Mass/Vol] 28 g/dL Low 29.9 - 35.2 g/dL [facility] MCV (RBC) [Entitic vol] 67.1 fL Low 80.0 - 94.0 fL [facility] MONOCYTES ABSOLUTE AUTO 1 High [facility] Monocytes/100 WBC (Bld) 16 % High 1.7 - 12.0 % [facility] NEUTROPHILS ABSOLUTE AUTO 3.5 [facility] Neutrophils/100 WBC (Bld) 56.2 % 43.0 - 75.0 % [facility] Platelet mean volume (Bld) [Entitic vol] 10.3 fL 9.5 - 13.5 fL [facility] EO # 0 [facility] PLT 291 [facility] RBC 6.02 [facility] Comment on above: 2+ OVALOCYTES [facility] WBC 6.1 [facility] ALL CBC WITH AUTO DIFFon Erythrocyte distribution width (RBC) [Ratio] 21.2 % High 11.0 - 15.0 % [facility] Hematocrit (Bld) [Volume fraction] 40.1 % Low 42.0 - 54.0 % [facility] Hemoglobin (Bld) [Mass/Vol] 11.1 g/dL Low 14.0 - 18.0 g/dL [facility] Interpretation and review of laboratory results Abnormal [facility] MCH (RBC) [Entitic mass] 18.6 pg Low 25.9 - 34.0 pg [facility] MCHC (RBC) [Mass/Vol] 27.7 g/dL Low 29.9 - 35.2 g/dL [facility] MCV (RBC) [Entitic vol] 67.1 fL Low 80.0 - 94.0 fL [facility] Platelet mean volume (Bld) [Entitic vol] 9.5 fL 9.5 - 13.5 fL [facility] PLT 269 [facility] RBC 5.98 [facility] WBC 6.3 [facility] ALL CBC WITH AUTO DIFFon BASOPHILS ABSOLUTE AUTO 0 [facility] Basophils/100 WBC (Bld) 0.8 % 0.2 - 2.0 % [facility] Eosinophils/100 WBC (Bld) 1 % 0.9 - 7.0 % [facility] Erythrocyte distribution width (RBC) [Ratio] 21.2 % High 11.0 - 15.0 % [facility] Hematocrit (Bld) [Volume fraction] 38.6 % Low 42.0 - 54.0 % [facility] Hemoglobin (Bld) [Mass/Vol] 10.5 g/dL Low 14.0 - 18.0 g/dL [facility] IMMATURE GRANULOCYTES ABS AUTO 0.01 [facility] Immature granulocytes/100 WBC (Bld) 0.2 % 0.0 - 0.5 % [facility] Interpretation and review of laboratory results Abnormal [facility] LYMPHOCYTES ABSOLUTE AUTO 1.3 [facility] Lymphocytes/100 WBC (Bld) 25.9 % 20.5 - 60.0 % [facility] MCH (RBC) [Entitic mass] 18.1 pg Low 25.9 - 34.0 pg [facility] MCHC (RBC) [Mass/Vol] 27.2 g/dL Low 29.9 - 35.2 g/dL [facility] MCV (RBC) [Entitic vol] 66.4 fL Low 80.0 - 94.0 fL [facility] MONOCYTES ABSOLUTE AUTO 0.7 [facility] Monocytes/100 WBC (Bld) 13.7 % High 1.7 - 12.0 % [facility] NEUTROPHILS ABSOLUTE AUTO 2.9 [facility] Neutrophils/100 WBC (Bld) 58.4 % 43.0 - 75.0 % [facility] EO # 0.1 [facility] PLT 269 [facility] TB RBC 5.81 [facility] Comment on above: HYPOCHROMASIA 2+ OVALOCYTOSIS 2+ ANISOCYTOSIS 2+ [facility] WBC 4.9 [facility] ALL CBC WITH AUTO DIFFon BASOPHILS ABSOLUTE AUTO 0 [facility] Basophils/100 WBC (Bld) 0.3 % 0.2 - 2.0 % [facility] Eosinophils/100 WBC (Bld) 0.6 % Low 0.9 - 7.0 % [facility] Erythrocyte distribution width (RBC) [Ratio] 21.9 % High 11.0 - 15.0 % [facility] Hematocrit (Bld) [Volume fraction] 39.7 % Low 42.0 - 54.0 % [facility] Hemoglobin (Bld) [Mass/Vol] 10.7 g/dL Low 14.0 - 18.0 g/dL [facility] IMMATURE GRANULOCYTES ABS AUTO 0.01 [facility] Immature granulocytes/100 WBC (Bld) 0.1 % 0.0 - 0.5 % [facility] Interpretation and review of laboratory results Abnormal [facility] LYMPHOCYTES ABSOLUTE AUTO 1.8 [facility] Lymphocytes/100 WBC (Bld) 27.6 % 20.5 - 60.0 % [facility] MCH (RBC) [Entitic mass] 17.5 pg Low 25.9 - 34.0 pg [facility] MCHC (RBC) [Mass/Vol] 27 g/dL Low 29.9 - 35.2 g/dL [facility] MCV (RBC) [Entitic vol] 64.8 fL Low 80.0 - 94.0 fL [facility] MONOCYTES ABSOLUTE AUTO 0.9 High [facility] Monocytes/100 WBC (Bld) 13.8 % High 1.7 - 12.0 % [facility] NEUTROPHILS ABSOLUTE AUTO 3.8 [facility] Neutrophils/100 WBC (Bld) 57.6 % 43.0 - 75.0 % [facility] Platelet mean volume (Bld) [Entitic vol] 9.6 fL 9.5 - 13.5 fL [facility] EO # 0 [facility] PLT 316 [facility] TB RBC 6.13 High [facility] Comment on above: HYPOCHROMASIA 1+ MICROCYTOSIS 2+ ANISOCYTOSIS 2+ OVALOCYTES 1+ [facility] WBC 6.7 [facility] ALL CBC WITH AUTO DIFFon BASOPHILS ABSOLUTE AUTO 0.0 [facility] Basophils/100 WBC (Bld) 0.4 % 0.2 - 2.0 % [facility] Eosinophils/100 WBC (Bld) 0.4 % Low 0.9 - 7.0 % [facility] Erythrocyte distribution width (RBC) [Ratio] 22.1 % High 11.0 - 15.0 % [facility] Hematocrit (Bld) [Volume fraction] 38.7 % Low 42.0 - 54.0 % [facility] Hemoglobin (Bld) [Mass/Vol] 10.5 g/dL Low 14.0 - 18.0 g/dL [facility] IMMATURE GRANULOCYTES ABS AUTO 0.01 [facility] Immature granulocytes/100 WBC (Bld) 0.2 % 0.0 - 0.5 % [facility] Interpretation and review of laboratory results Abnormal [facility] LYMPHOCYTES ABSOLUTE AUTO 1.8 [facility] Lymphocytes/100 WBC (Bld) 31.6 % 20.5 - 60.0 % [facility] MCH (RBC) [Entitic mass] 17.5 pg Low 25.9 - 34.0 pg [facility] MCHC (RBC) [Mass/Vol] 27.1 g/dL Low 29.9 - 35.2 g/dL [facility] MCV (RBC) [Entitic vol] 64.4 fL Low 80.0 - 94.0 fL [facility] MONOCYTES ABSOLUTE AUTO 0.7 [facility] Monocytes/100 WBC (Bld) 11.5 % 1.7 - 12.0 % [facility] NEUTROPHILS ABSOLUTE AUTO 3.2 [facility] Neutrophils/100 WBC (Bld) 55.9 % 43.0 - 75.0 % [facility] Platelet mean volume (Bld) [Entitic vol] 9.2 fL Low 9.5 - 13.5 fL [facility] EO # 0.0 [facility] TB PLT 284 [facility] TB RBC 6.01 [facility] WBC 5.7 [facility] BASIC METABOLIC PANLon 01-09 Anion gap [Moles/Vol] 8 mmol/L Normal 5-15 [facility] Comment on above: Performed By: #### Brigitte BRYANT [facility], #### [facility] ([id number]) [address], [address] [place] [address] Calcium [Mass/Vol] 8.5 mg/dL Normal 8.5-10.5 [facility] Comment on above: Performed By: #### ANDRES Briggs [facility], #### [facility] ([id number]) [address], [address] [place] [address] Chloride [Moles/Vol] 106 mmol/L Normal 98-109 [facility] Comment on above: Performed By: #### ANDRES Briggs BCA, #### [facility] ([id number]) [address], [address] [place] [address] CO2 [Moles/Vol] 28 mmol/L Normal 22-32 [facility] Comment on above: Performed By: #### ANDRES Briggs BCA, #### [facility] ([id number]) [address], [address] [place] [address] Creatinine [Mass/Vol] 0.93 mg/dL Normal 0.60-1.30 [facility] Comment on above: Result Comment: METH OD TRACEABLE TO IDMS STANDARD Performed By: #### C MANNY [facility], #### [facility] ([id number]) [address] [address] [place] [address] eGFR (CKD-EPI) NON-RACE DEPENDENT >90 Normal >59 [facility] Comment on above: Result Comment: Reported eGFR is based on the CKD-EPI 2020 equation that does not use a race coefficient. Performed By: #### C ANDRES BRYANT, #### [facility] ([id number]) [address] [address] [place] [address] Glucose [Mass/Vol] 87 mg/dL Normal 65-99 [facility] Comment on above: Performed By: #### C ANDRES BRYANT, #### [facility] ([id number]) [address] [address] Potassium [Moles/Vol] 3.9 mmol/L Normal 3.5-5.0 [facility] Comment on above: Performed By: #### C ANDRES BRYANT, #### [facility] ([id number]) [address] [address] Sodium [Moles/Vol] 142 mmol/L Normal 134-146 [facility] Comment on above: Performed By: #### ANDRES Briggs BCA, #### [facility] ([id number]) [address] [address] Urea nitrogen [Mass/Vol] 13 mg/dL Normal 5-23 [facility] Comment on above: Performed By: #### C ANDRES BRYANT, #### [facility] ([id number]) [address] [address] [place] [address] CBC AND AUTO DIFFon 1620 24 ABSOLUTE BASOPHIL 0.0 X10E9/L Normal 0.0-0.2 [facility] Comment on above: Performed By: #### ANDRES Briggs BCA, #### [facility] ([id number]) [address], [address] [place] [address] ABSOLUTE NEUTROPHIL 7.9 X10E9/L High 1.5-6.6 [facility] Comment on above: Performed By: #### ANDRES Briggs BCA, #### [facility] ([id number]) [address] [place] [address] Basophils/100 WBC (Bld) 0.2 % Normal [facility] Comment on above: Performed By: #### ANDRES Briggs BCA, #### [facility] ([id number]) [address], [address] [place] [address] Eosinophils (Bld) [#/Vol] 0.0 10*3/uL Normal 0.0-0.4 [facility] Comment on above: Performed By: #### ANDRES Briggs BCA, #### [facility] ([id number]) [address] [place] [address] Eosinophils/100 WBC (Bld) 0.2 % Normal [facility] Comment on above: Performed By: #### ANDRES Briggs BCA, #### [facility] ([id number]) [address] [place] [address] Erythrocyte distribution width (RBC) [Ratio] 20.7 % High 11.5-15.0 [facility] Comment on above: Performed By: #### ANDRES Briggs BCA, #### [facility] ([id number]) [address], [address] [place] [address] FRAGMENT 1+ Abnormal NONE [facility] Comment on above: Performed By: #### ANDRES Briggs BCA, #### [facility] ([id number]) [address], [address] [place] [address] Hematocrit (Bld) [Volume fraction] 30.0 % Low 39-49 [facility] Comment on above: Performed By: #### ANDRES Briggs BCA, #### [facility] ([id number]) [address], [address] [place] [address] Hemoglobin (Bld) [Mass/Vol] 8.7 g/dL Low 13.0-17.0 [facility] Comment on above: Performed By: #### ANDRES Briggs BCA, #### [facility] ([id number]) [address] [place] [address] HYPOCHROMIA 2+ Abnormal NONE [facility] Comment on above: Performed By: #### ANDRES Briggs BCA, #### [facility] ([id number]) [address] [place] [address] Lymphocytes (Bld) [#/Vol] 2.6 10*3/uL Normal 1.0-3.5 [facility] Comment on above: Performed By: #### ANDRES rBiggs BCA, #### [facility] ([id number]) [address], [facility] [address] [place] [address] Lymphocytes/100 WBC (Bld) 22.1 % Normal [facility] Comment on above: Performed By: #### ANDRES Briggs BCA, #### [facility] ([id number]) [address], [address] [place] [address] MCH (RBC) [Entitic mass] 16.7 pg Low 27-34 [facility] Comment on above: Performed By: #### ANDRES Briggs BCA, #### [facility] ([id number]) [address], [address] [place] [address] MCHC (RBC) [Mass/Vol] 29.1 g/dL Low 32-36 [facility] Comment on above: Performed By: #### ANDRES Briggs BCA, #### [facility] ([id number]) [address], [address] [place] [address] MCV (RBC) [Entitic vol] 58 fL Low 80-100 [facility] Comment on above: Performed By: #### ANDRES Briggs BCA, #### [facility] ([id number]) [address] [place] [address] Monocytes (Bld) [#/Vol] 1.3 10*3/uL High 0-0.9 [facility] Comment on above: Performed By: #### ANDRES Briggs BCA, #### [facility] ([id number]) [address] [place] [address] Monocytes/100 WBC (Bld) 11.2 % Normal [facility] Comment on above: Performed By: #### ANDRES Briggs BCA, #### [facility] ([id number]) [address] [place] [address] Neutrophils/100 WBC (Bld) 66.3 % Normal [facility] Comment on above: Performed By: #### ANDRES Briggs BCA, #### [facility] ([id number]) [address], [address] [place] [address] OVALOCYTE 2+ Abnormal NONE [facility] Comment on above: Performed By: #### ANDRES Briggs BCA, #### [facility] ([id number]) [address], [address] [place] [address] Platelet mean volume (Bld) [Entitic vol] 8.7 fL Normal 7-12 [facility] Comment on above: Performed By: #### ANDRES Briggs BCA, #### [facility] ([id number]) [address], [address] [place] [address] Platelets (Bld) [#/Vol] 326 10*3/uL Normal 150-450 [facility] Comment on above: Performed By: #### ANDRES Briggs BCA, #### [facility] ([id number]) [address], [address] [place] [address] RBC COUNT 5.21 X10E12/L Normal 4.10-5.70 [facility] Comment on above: Performed By: #### ANDRES Briggs BCA, #### [facility] ([id number]) [address], [facility] [address] [place] [address] WBC (Bld) [#/Vol] 11.9 10*3/uL High 4.0-11.0 [facility] Comment on above: Performed By: #### ANDRES Briggs BCA, #### [facility] ([id number]) [address] [place] [address] MAGNESIUMon 01-10-2024 Magnesium [Mass/Vol] 2.0 mg/dL Normal 1.8-2.6 [facility] Comment on above: Performed By: #### ANDRES Briggs BCA, #### [facility] ([id number]) [address] [place] [address] BASIC METABOLIC PANLon 01-08 Anion gap [Moles/Vol] 9 mmol/L Normal 5-15 [facility] Comment on above: Performed By: #### ANDRES Briggs BCA, #### [facility] ([id number]) [address], [address] [place] [address] Calcium [Mass/Vol] 8.8 mg/dL Normal 8.5-10.5 [facility] Comment on above: Performed By: #### ANDRES Briggs BCA, #### [facility] ([id number]) [address], [address] [place] [address] Chloride [Moles/Vol] 107 mmol/L Normal 98-109 [facility] Comment on above: Performed By: #### C MANNY [facility], #### [facility] ([id number]) [address] [address] [place] [address] CO2 [Moles/Vol] 25 mmol/L Normal 22-32 [facility] Comment on above: Performed By: #### C MANNY [facility], #### [facility] ([id number]) [address] [place] [address] Creatinine [Mass/Vol] 0.96 mg/dL Normal 0.60-1.30 [facility] Comment on above: Result Comment: METH OD TRACEABLE TO IDMS STANDARD Performed By: #### C MANNY [facility], #### [facility] ([id number]) [address] [place] [address] eGFR (CKD-EPI) NON-RACE DEPENDENT >90 Normal >59 [facility] Comment on above: Result Comment: Reported eGFR is based on the CKD-EPI 1 equation that does not use a race coefficient. Performed By: #### C ANDRES BRYANT, #### [facility] ([id number]) [address] [place] [address] Glucose [Mass/Vol] 117 mg/dL High 65-99 [facility] Comment on above: Performed By: #### C ANDRES BRYANT, #### [facility] ([id number]) [address] [place] [address] Potassium [Moles/Vol] 4.5 mmol/L Normal 3.5-5.0 [facility] Comment on above: Performed By: #### C ANDRES BRYANT, #### [facility] ([id number]) [address] [place] [address] Sodium [Moles/Vol] 141 mmol/L Normal 134-146 [facility] Comment on above: Performed By: #### ANDRES Briggs [facility], #### [facility] ([id number]) [address] [place] [address] Urea nitrogen [Mass/Vol] 19 mg/dL Normal 5-23 [facility] Comment on above: Performed By: #### ANDRES Briggs BCA, #### [facility] ([id number]) [address] [facility] [address] [place] [address] CBC AND AUTO DIFFon 01-09-20 24 ACANTHOCYTE 2+ Abnormal NONE [facility] Comment on above: Performed By: #### ANDRES Briggs BCA, #### [facility] ([id number]) [address] [place] [address] Erythrocyte distribution width (RBC) [Ratio] 21.0 % High 11.5-15.0 [facility] Comment on above: Performed By: #### ANDRES Briggs BCA, #### [facility] ([id number]) [address] [place] [address] FRAGMENT 1+ Abnormal NONE [facility] Comment on above: Performed By: #### ANDRES Briggs BCA, #### [facility] ([id number]) [address] [place] [address] Hematocrit (Bld) [Volume fraction] 32.9 % Low 39-49 [facility] Comment on above: Performed By: #### ANDRES Briggs BCA, #### [facility] ([id number]) [address] [place] [address] Hemoglobin (Bld) [Mass/Vol] 9.4 g/dL Low 13.0-17.0 [facility] Comment on above: Performed By: #### ANDRES Briggs BCA, #### [facility] ([id number]) [address] [place] [address] HYPOCHROMIA 2+ Abnormal NONE [facility] Comment on above: Performed By: #### ANDRES Briggs BCA, #### [facility] ([id number]) [address] [place] [address] Lymphocytes (Bld) [#/Vol] 0.6 10*3/uL Low 1.0-3.5 [facility] Comment on above: Performed By: #### ANDRES Briggs BCA, #### [facility] ([id number]) [address] [place] [address] Lymphocytes/100 WBC (Bld) 4.0 % Normal [facility] Comment on above: Performed By: #### ANDRES Briggs BCA, #### [facility] ([id number]) [address] [place] [address] MCH (RBC) [Entitic mass] 16.4 pg Low 27-34 [facility] Comment on above: Performed By: #### ANDRES Briggs BCA, #### [facility] ([id number]) [address] [place] [address] MCHC (RBC) [Mass/Vol] 28.6 g/dL Low 32-36 [facility] Comment on above: Performed By: #### ANDRES Briggs BCA, #### [facility] ([id number]) [address] [place] [address] MCV (RBC) [Entitic vol] 57 fL Low 80-100 [facility] Comment on above: Performed By: #### C MANNY BMP, #### [facility] ([id number]) [address] [place] [address] Monocytes (Bld) [#/Vol] 0.5 10*3/uL Normal 0-0.9 [facility] Comment on above: Performed By: #### Brigitte BRYANT, BMP, #### [facility] ([id number]) [address] [place] [address] Monocytes/100 WBC (Bld) 3.0 % Normal [facility] Comment on above: Performed By: #### Brigitte BRYANT, BMP, #### [facility] ([id number]) [address] [place] [address] Neutrophils (Bld) [#/Vol] 14.5 10*3/uL High 1.5-6.6 [facility] Comment on above: Performed By: #### Brigitte BRYANT, BMP, #### [facility] ([id number]) [address] [place] [address] OVALOCYTE 2+ Abnormal NONE [facility] Comment on above: Performed By: #### ANDRES Briggs BCA, #### [facility] ([id number]) [address] [place] [address] Platelet mean volume (Bld) [Entitic vol] 8.7 fL Normal 7-12 [facility] Comment on above: Performed By: #### Brigitte BRYANT, BMP, #### [facility] ([id number]) [address] [place] [address] Platelets (Bld) [#/Vol] 347 10*3/uL Normal 150-450 [facility] Comment on above: Performed By: #### Brigitte BRYANT, BMP, #### [facility] ([id number]) [address] [place] [address] POLYCHROMASIA 1+ Abnormal NONE [facility] Comment on above: Performed By: #### ANDRES Briggs BCA, #### [facility] ([id number]) [address] [place] [address] RBC COUNT 5.76 X10E12/L High 4.10-5.70 [facility] Comment on above: Performed By: #### ANDRES Briggs BCA, #### [facility] ([id number]) [address] [place] [address] SEG NEUTROPHIL 93.0 % Normal [facility] Comment on above: Performed By: #### ANDRES Briggs BCA, #### [facility] ([id number]) [address] [place] [address] TEARDROP 1+ Abnormal NONE [facility] Comment on above: Performed By: #### ANDRES Briggs BCA, #### [facility] ([id number]) [address] [place] [address] WBC (Bld) [#/Vol] 15.6 10*3/uL High 4.0-11.0 [facility] Comment on above: Performed By: #### ANDRES Briggs BCA, #### [facility] ([id number]) [address] [place] [address] MAGNESIUMon 01-09-2024 Magnesium [Mass/Vol] 2.0 mg/dL Normal 1.8-2.6 [facility] Comment on above: Performed By: #### ANDRES Briggs BCA, #### [facility] ([id number]) [address] [place] [address] Surgical Pathologyon 024 Surgical Pathology Normal [facility] Comment on above: Result Comment: [place] [address] [place] [address] Surgical Pathology Consultation Patient Name:ADDIE COLBERTOB:2000 (Age: 23)Gender:MTaken:4Reported:4Physician(s):Pushpa Silva MD ([phone])Copy To: Rec. #:[id number]: #[id number] Final Pathologic Diagnosis Rectosigmoidectomy: Mucosal ischemic change with superficial mucosal necrosis, acute inflammation, hyalinization of lamina propria and atrophic crypts. Strands of smooth muscle extending into lamina propria with surface erosion compatible with prolapse changes. No malignancy identified. Report Electronically Signed Out [facility]/01/13/2024Suangelita Cortez M.D. Interpretation performed at [facility], [address] [place] [address], License number: [id number]. Clinical History Rectal prolapse, ischemic rectum. Gross [...] sections of proximal margin G edematous wall (7,ss,A12-59497, m1) . /01/09/2024GP Specimen(s) Received Rectum and sigmoid Fee Codes(s): 1; 18306 CBC AND AUTO DIFFon 01-08-20 24 ABSOLUTE BASOPHIL 0.1 X10E9/L Normal 0.0-0.2 [facility] Comment on above: Performed By: #### P INR, 17399-8, CMP, CBCA #### [facility] ([id number]) [address] [place] [address] ABSOLUTE NEUTROPHIL 14.8 X10E9/L High 1.5-6.6 [facility] Comment on above: Performed By: #### P INR, 51588-9, CMP, CBCA #### [facility] ([id number]) [address] [place] [address] Basophils/100 WBC (Bld) 0.3 % Normal [facility] Comment on above: Performed By: #### P INR, 29075-6, CMP, CBCA #### [facility] ([id number]) [address] [place] [address] Eosinophils (Bld) [#/Vol] 0.0 10*3/uL Normal 0.0-0.4 [facility] Comment on above: Performed By: #### P INR, 12345-0, CMP, CBCA #### [facility] ([id number]) [address] [place] [address] Eosinophils/100 WBC (Bld) 0.0 % Normal [facility] Comment on above: Performed By: #### P INR, 13776-7, CMP, CBCA #### [facility] ([id number]) [address] [place] [address] Erythrocyte distribution width (RBC) [Ratio] 20.9 % High 11.5-15.0 [facility] Comment on above: Performed By: #### P INR, 56576-6, CMP, CBCA #### [facility] ([id number]) [address] [place] [address] Hematocrit (Bld) [Volume fraction] 33.4 % Low 39-49 [facility] Comment on above: Performed By: #### P INR, 66793-2, CMP, CBCA #### [facility] ([id number]) [address] [place] [address] Hemoglobin (Bld) [Mass/Vol] 9.5 g/dL Low 13.0-17.0 [facility] Comment on above: Performed By: #### P INR, 49691-5, CMP, CBCA #### [facility] ([id number]) [address] [place] [address] Lymphocytes (Bld) [#/Vol] 0.4 10*3/uL Low 1.0-3.5 [facility] Comment on above: Performed By: #### P INR, 99229-2, CMP, CBCA #### [facility] ([id number]) [address] [place] [address] Lymphocytes/100 WBC (Bld) 2.6 % Normal [facility] Comment on above: Performed By: #### P INR, 39107-0, CMP, CBCA #### [facility] ([id number]) [address] [place] [address] MCH (RBC) [Entitic mass] 16.4 pg Low 27-34 [facility] Comment on above: Performed By: #### P INR, 79759-5, CMP, CBCA #### [facility] ([id number]) [address] [place] [address] MCHC (RBC) [Mass/Vol] 28.6 g/dL Low 32-36 [facility] Comment on above: Performed By: #### P INR, 09276-9, CMP, CBCA #### [facility] ([id number]) [address] [place] [address] MCV (RBC) [Entitic vol] 58 fL Low 80-100 [facility] Comment on above: Performed By: #### P INR, 29265-9, CMP, CBCA #### [facility] ([id number]) [address] [place] [address] Monocytes (Bld) [#/Vol] 1.4 10*3/uL High 0-0.9 [facility] Comment on above: Performed By: #### P INR, 23917-9, CMP, CBCA #### [facility] ([id number]) [address] [place] [address] Monocytes/100 WBC (Bld) 8.5 % Normal [facility] Comment on above: Performed By: #### P INR, 60630-0, CMP, CBCA #### [facility] ([id number]) [address] [place] [address] Neutrophils/100 WBC (Bld) 88.6 % Normal [facility] Comment on above: Performed By: #### P INR, 61407-8, CMP, CBCA #### [facility] ([id number]) [address] [place] [address] Platelet mean volume (Bld) [Entitic vol] 8.7 fL Normal 7-12 [facility] Comment on above: Performed By: #### P INR, 83684-3, CMP, CBCA #### [facility] ([id number]) [address] [place] [address] Platelets (Bld) [#/Vol] 366 10*3/uL Normal 150-450 [facility] Comment on above: Performed By: #### P INR, 60691-7, CMP, CBCA #### [facility] ([id number]) [address] [place] [address] RBC COUNT 5.81 X10E12/L High 4.10-5.70 [facility] Comment on above: Performed By: #### P INR, 07398-4, CMP, CBCA #### [facility] ([id number]) [address] [place] [address] WBC (Bld) [#/Vol] 16.7 10*3/uL High 4.0-11.0 [facility] Comment on above: Performed By: #### P INR, 63375-6, CMP, CBCA #### [facility] ([id number]) [address] [place] [address] COMPREHENSIVE METABOLIC PANE Angel 01-08-2024 Albumin [Mass/Vol] 4.3 g/dL Normal 3.2-5.3 [facility] Comment on above: Performed By: #### P INR, 68277-8, CMP, CBCA #### [facility] ([id number]) [address] [place] [address] ALP [Catalytic activity/Vol] 67 U/L Normal 39-130 [facility] Comment on above: Performed By: #### P INR, 76947-0, CMP, CBCA #### [facility] ([id number]) [address] [place] [address] ALT [Catalytic activity/Vol] 19 U/L Normal 0-40 [facility] Comment on above: Performed By: #### P INR, 25647-3, CMP, CBCA #### [facility] ([id number]) [address] [place] [address] Anion gap [Moles/Vol] 6 mmol/L Normal 5-15 [facility] Comment on above: Performed By: #### P INR, 47270-2, CMP, CBCA #### [facility] ([id number]) [address] [place] [address] AST [Catalytic activity/Vol] 26 U/L Normal 0-41 [facility] Comment on above: Performed By: #### P INR, 46761-3, CMP, CBCA #### [facility] ([id number]) [address] [place] [address] Bilirubin [Mass/Vol] 0.5 mg/dL Normal 0.3-1.2 [facility] Comment on above: Performed By: #### P INR, 80013-7, CMP, CBCA #### [facility] ([id number]) [address] [place] [address] Calcium [Mass/Vol] 8.8 mg/dL Normal 8.5-10.5 [facility] Comment on above: Performed By: #### P INR, 61958-5, CMP, CBCA #### [facility] ([id number]) [address] [place] [address] Chloride [Moles/Vol] 102 mmol/L Normal 98-109 [facility] Comment on above: Performed By: #### P INR, 85277-8, CMP, CBCA #### [facility] ([id number]) [address] [place] [address] CO2 [Moles/Vol] 23 mmol/L Normal 22-32 [facility] Comment on above: Performed By: #### P INR, 61904-0, CMP, CBCA #### [facility] ([id number]) [address] [place] [address] Creatinine [Mass/Vol] 1.03 mg/dL Normal 0.70-1.20 [facility] Comment on above: Result Comment: METH OD TRACEABLE TO IDMS STANDARD Performed By: #### P INR, 16702-8, CMP, CBCA #### [facility] ([id number]) [address] [place] [address] eGFR (CKD-EPI) NON-RACE DEPENDENT >90 Normal >59 [facility] Comment on above: Result Comment: Reported eGFR is based on the CKD-EPI 2020 equation that does not use a race coefficient. Performed By: #### P INR, 14505-4, CMP, CBCA #### [facility] ([id number]) [address] [place] [address] Glucose [Mass/Vol] 114 mg/dL High 65-99 [facility] Comment on above: Performed By: #### P INR, 60576-2, CMP, CBCA #### [facility] ([id number]) [address] [place] [address] Potassium [Moles/Vol] 4.0 mmol/L Normal 3.5-5.0 [facility] Comment on above: Performed By: #### P INR, 43161-9, CMP, CBCA #### [facility] ([id number]) [address] [place] [address]2652 Protein [Mass/Vol] 6.9 g/dL Normal 6.0-8.0 [facility] Comment on above: Performed By: #### P INR, 68438-1, CMP, CBCA #### [facility] ([id number]) [address] [place] [address] Sodium [Moles/Vol] 131 mmol/L Low 134-146 [facility] Comment on above: Performed By: #### P INR, 55156-6, CMP, CBCA #### [facility] ([id number]) [address] [place] [address] Urea nitrogen [Mass/Vol] 17 mg/dL Normal 5-23 [facility] Comment on above: Performed By: #### P INR, 92729-4, CMP, CBCA #### [facility] ([id number]) [address] [place] [address] PROTIME AND INRon 01-08-2024 INR Coag (PPP) [Relative time] 1.0 {INR} Normal 0.8-1.1 [facility] Comment on above: Performed By: #### P INR, 62408-8, CMP, CBCA #### [facility] ([id number]) [address] [place] [address]777 PT Coag (PPP) [Time] 12.0 s Normal 9.8-13.2 [facility] Comment on above: Result Comment: NEW REFERENCE RANGE Performed By: #### P INR, 47704-4, CMP, CBCA #### [facility] ([id number]) [address] [place] [address] aPTT Coag (PPP) [Time]on aPTT Coag (Bld) [Time] 37 s Normal 26-37 [facility] Comment on above: Result Comment: NEW REFERENCE RANGE Performed By: #### P INR, 38479-4, CMP, CBCA #### [facility] ([id number]) [address] [place] [address] CBC AUTO DIFFon 03-26-2023 BASO # 0.0 103/ul Normal 0.0-0.[address] [facility] Comment on above: Performed By: #### C BC #### [facility] [address] [place] [address] Dr. Sonido Bejarano Basophils/100 WBC (Bld) 0.7 % Normal 0.2-2.[address] [facility] Comment on above: Performed By: #### C BC #### [facility] [address] [place] [address] Dr. Sonido Bejarano EO # 0.1 103/ul Normal 0.0-0.[address] [facility] Comment on above: Performed By: #### C BC #### [facility] [address] [place] [address] Dr. Sonido Bejarano Eosinophils/100 WBC (Bld) 1.0 % Normal 0.9-7.[address] [facility] Comment on above: Performed By: #### C BC #### [facility] [address] [place] [address] Dr. Sonido Bejarano Erythrocyte distribution width (RBC) [Ratio] 22.3 % Critically high 11.0-15.[address] [facility] Comment on above: Performed By: #### C BC #### [facility] [address] [place] [address] Dr. Sonido Bejarano Hematocrit (Bld) [Volume fraction] 32.0 % Critically low 42.0-54.[address] [facility] Comment on above: Performed By: #### C BC #### [facility] [address] [place] [address] Dr. Sonido Bejarano Hemoglobin (Bld) [Mass/Vol] 8.3 g/dL Critically low 14.0-18.[address] [facility] Comment on above: Performed By: #### C BC #### [facility] [address] [place] [address] Dr. Sonido Bejarano IG # 0.01 10e3/ul Normal 0.00-0.[address] [facility] Comment on above: Performed By: #### C BC #### [facility] [address] [place] [address] Dr. Sonido Bejarano IG % 0.2 % Normal 0.0-0.[address] [facility] Comment on above: Performed By: #### C BC #### [facility] [address] [place] [address] Dr. Sonido Bejarano LYMPH # 1.2 103/ul Normal 1.2-3.[address] [facility] Comment on above: Performed By: #### C BC #### [facility] [address] [place] [address] Dr. Sonido Bejarano Lymphocytes/100 WBC (Bld) 20.1 % Critically low 20.5-60.[address] [facility] Comment on above: Performed By: #### C BC #### [facility] [address] [place] [address] Dr. Sonido Bejarano MANUAL DIFF REQ NO Normal [facility] Comment on above: Performed By: #### C BC #### [facility] [address] [address] [address] Sonido Bejarano MCH (RBC) [Entitic mass] 15.7 pg Critically low 25.9-34.[address] [facility] Comment on above: Performed By: #### C BC #### [facility] [address] [address] [address] Sonido Bejarano MCHC (RBC) [Mass/Vol] 25.9 g/dL Critically low 29.9-35.[address] [facility] Comment on above: Performed By: #### C BC #### [facility] [address] [place] [address] Dr. Sonido Bejarano MCV (RBC) [Entitic vol] 60.6 fL Critically low 80.0-94.[address] [facility] Comment on above: Performed By: #### C BC #### [facility] [address] [place] [address] Dr. Sonido Bejarano MONO # 0.7 103/ul Normal 0.3-0.[address] [facility] Comment on above: Performed By: #### C BC #### [facility] [address] [place] [address] Dr. Sonido Bejarano Monocytes/100 WBC (Bld) 12.2 % Critically high 1.7-12.[address] [facility] Comment on above: Performed By: #### C BC #### [facility] [address] [place] [address] Dr. Sonido Bejarano NEUT # 3.8 103/ul Normal 1.4-6.[address] [facility] Comment on above: Performed By: #### C BC #### [facility] [address] [place] [address] Dr. Sonido Bejarano Neutrophils/100 WBC (Bld) 65.8 % Normal 43.0-75.[address] [facility] Comment on above: Performed By: #### C BC #### [facility] [address] [place] [address] Dr. Sonido Bejarano Platelet mean volume (Bld) [Entitic vol] 9.2 fL Critically low 9.5-13.[address] [facility] Comment on above: Performed By: #### C BC #### [facility] [address] [place] [address] Dr. Sonido Bejarano PLT 369 103/ul Normal 150-450 [facility] Comment on above: Performed By: #### C BC #### [facility] [address] [place] [address] Dr. Sonido Bejarano RBC 5.28 106/ul Normal 4.70-6.[address] [facility] Comment on above: Performed By: #### C BC #### [facility] [address] [place] [address] Dr. Sonido Bejarano WBC 5.8 103/ul Normal 4.0-11.[address] [facility] Comment on above: Performed By: #### C BC #### [facility] [address] [place] [address] Dr. Sonido Bejarano CBC AUTO DIFFon 02-19-2023 BASO # 0.0 103/ul Normal 0.0-0.[address] [facility] Comment on above: Performed By: #### C BC #### [facility] [address] [place] [address] Dr. Sonido Bejarano Basophils/100 WBC (Bld) 0.7 % Normal 0.2-2.[address] [facility] Comment on above: Performed By: #### C BC #### [facility] [address] [place] [address] Dr. Sonido Bejarano EO # 0.1 103/ul Normal 0.0-0.7 [facility] Comment on above: Performed By: #### C BC #### [facility] [address] [place] [address] Dr. Sonido Bejarano Eosinophils/100 WBC (Bld) 1.1 % Normal 0.9-7.[address] [facility] Comment on above: Performed By: #### C BC #### [facility] [address] [place] [address] Dr. Sonido Bejarano Erythrocyte distribution width (RBC) [Ratio] 22.7 % Critically high 11.0-15.[address] [facility] Comment on above: Performed By: #### C BC #### [facility] [address] [address] [address] Sonido Bejarano Hematocrit (Bld) [Volume fraction] 32.9 % Critically low 42.0-54.[address] [facility] Comment on above: Performed By: #### C BC #### [facility] [address] [place] [address] Dr. Sonido Bejarano Hemoglobin (Bld) [Mass/Vol] 8.2 g/dL Critically low 14.0-18.[address] [facility] Comment on above: Performed By: #### C BC #### [facility] [address] [place] [address] Dr. Sonido Bejarano IG # 0.02 10e3/ul Normal 0.00-0.[address] [facility] Comment on above: Performed By: #### C BC #### [facility] [address] [place] [address] Dr. Sonido Bejarano IG % 0.3 % Normal 0.0-0.[address] [facility] Comment on above: Performed By: #### C BC #### [facility] [address] [place] [address] Dr. Sonido Bejarano LYMPH # 1.4 103/ul Normal 1.2-3.[address] [facility] Comment on above: Performed By: #### C BC #### [facility] [address] [place] [address] Dr. Sonido Bejarano Lymphocytes/100 WBC (Bld) 22.8 % Normal 20.5-60.[address] [facility] Comment on above: Performed By: #### C BC #### [facility] [address] [place] [address] Dr. Sonido Bejarano MANUAL DIFF REQ NO Normal [facility] Comment on above: Performed By: #### C BC #### [facility] [address] [place] [address] Dr. Sonido Bejarano MCH (RBC) [Entitic mass] 15.3 pg Critically low 25.9-34.[address] [facility] Comment on above: Performed By: #### C BC #### [facility] [address] [address] [address] Sonido Bejarano MCHC (RBC) [Mass/Vol] 24.9 g/dL Critically low 29.9-35.[address] [facility] Comment on above: Performed By: #### C BC #### [facility] [address] [address] [address] Sonido Bejarnao MCV (RBC) [Entitic vol] 61.3 fL Critically low 80.0-94.[address] [facility] Comment on above: Performed By: #### C BC #### [facility] [address] [place] [address] Dr. Sonido Bjearano MONO # 0.7 103/ul Normal 0.3-0.[address] [facility] Comment on above: Performed By: #### C BC #### [facility] [address] [place] [address] Dr. Sonido Bejarano Monocytes/100 WBC (Bld) 11.6 % Normal 1.7-12.[address] [facility] Comment on above: Performed By: #### C BC #### [facility] [address] [place] [address] Dr. Sonido Bejarano NEUT # 3.9 103/ul Normal 1.4-6.[address] [facility] Comment on above: Performed By: #### C BC #### [facility] [address] [place] [address] Dr. Sonido Bejarano Neutrophils/100 WBC (Bld) 63.5 % Normal 43.0-75.0 [facility] Comment on above: Performed By: #### C BC #### [facility] [address] [place] [address] Dr. Sonido Bejarano Platelet mean volume (Bld) [Entitic vol] 9.3 fL Critically low 9.5-13.5 [facility] Comment on above: Performed By: #### C BC #### [facility] [address] [place] [address] Dr. Sonido Bejarano PLT 394 103/ul Normal 150-450 [facility] Comment on above: Performed By: #### C BC #### [facility] [address] [place] [address] Dr. Sonido Bejarano RBC 5.37 106/ul Normal 4.70-6.10 [facility] Comment on above: Performed By: #### C BC #### [facility] [address] [place] [address] Dr. Sonido Bejarano WBC 6.1 103/ul Normal 4.0-11.0 [facility] Comment on above: Performed By: #### C BC #### [facility] [address] [place] [address] Dr. Sonido Bejarano CBC AUTO DIFFon 01-15-2023 BASO # 0.0 103/ul Normal 0.0-0.1 [facility] Comment on above: Performed By: #### C BC #### [facility] [address] [place] [address] Dr. Sonido Bejarano Basophils/100 WBC (Bld) 0.3 % Normal 0.2-2.0 [facility] Comment on above: Performed By: #### C BC #### [facility] [address] [place] [address] Dr. Sonido Bejarano EO # 0.0 103/ul Normal 0.0-0.7 [facility] Comment on above: Performed By: #### C BC #### [facility] [address] [place] [address] Dr. Sonido Bejarano Eosinophils/100 WBC (Bld) 0.4 % Critically low 0.9-7.0 [facility] Comment on above: Performed By: #### C BC #### [facility] [address] [place] [address] Dr. Sonido Bejarano Erythrocyte distribution width (RBC) [Ratio] 22.4 % Critically high 11.0-15.0 [facility] Comment on above: Performed By: #### C BC #### [facility] [address] [place] [address] Dr. Sonido Bejarano Hematocrit (Bld) [Volume fraction] 31.5 % Critically low 42.0-54.0 [facility] Comment on above: Performed By: #### C BC #### [facility] [address] [address] [address] Sonido Bejarano Hemoglobin (Bld) [Mass/Vol] 8.1 g/dL Critically low 14.0-18.[address] [facility] Comment on above: Performed By: #### C BC #### [facility] [address] [address] [address] Sonido Bejarano IG # 0.02 10e3/ul Normal 0.00-0.[address] [facility] Comment on above: Performed By: #### C BC #### [facility] [address] [address] [address] Sonido Bejarano IG % 0.3 % Normal 0.0-0.[address] [facility] Comment on above: Performed By: #### C BC #### [facility] [address] [place] [address] Dr. Sonido Bejarano LYMPH # 1.3 103/ul Normal 1.2-3.8 [facility] Comment on above: Performed By: #### C BC #### [facility] [address] [place] [address] Dr. Sonido Bejarano Lymphocytes/100 WBC (Bld) 19.4 % Critically low 20.5-60.[address] [facility] Comment on above: Performed By: #### C BC #### [facility] [address] [place] [address] Dr. Sonido Bejarano MANUAL DIFF REQ NO Normal [facility] Comment on above: Performed By: #### C BC #### [facility] [address] [address] [address] Sonido Bejarano MCH (RBC) [Entitic mass] 15.5 pg Critically low 25.9-34.[address] [facility] Comment on above: Performed By: #### C BC #### [facility] [address] [place] [address] Dr. Sonido Bejarano MCHC (RBC) [Mass/Vol] 25.7 g/dL Critically low 29.9-35.2 [facility] Comment on above: Performed By: #### C BC #### [facility] [address] [address] [address] Sonido Bejarano MCV (RBC) [Entitic vol] 60.2 fL Critically low 80.0-94.[address] [facility] Comment on above: Performed By: #### C BC #### [facility] [address] [place] [address] Dr. Sonido Bejarano MONO # 0.9 103/ul Critically high 0.3-0.8 [facility] Comment on above: Performed By: #### C BC #### [facility] [address] [place] [address] Dr. Sonido Bejarano Monocytes/100 WBC (Bld) 12.9 % Critically high 1.7-12.[address] [facility] Comment on above: Performed By: #### C BC #### [facility] [address] [place] [address] Dr. Sonido Bejarano NEUT # 4.5 103/ul Normal 1.4-6.[address] [facility] Comment on above: Performed By: #### C BC #### [facility] [address] [place] [address] Dr. Sonido Bejarano Neutrophils/100 WBC (Bld) 66.7 % Normal 43.0-75.[address] [facility] Comment on above: Performed By: #### C BC #### [facility] [address] [place] [address] Dr. Sonido Bejarano Platelet mean volume (Bld) [Entitic vol] 9.2 fL Critically low 9.5-13.5 [facility] Comment on above: Performed By: #### C BC #### [facility] [address] [place] [address] Dr. Sonido Bejarano PLT 356 103/ul Normal 150-450 [facility] Comment on above: Performed By: #### C BC #### [facility] [address] [place] [address] Dr. Sonido Bejarano RBC 5.23 106/ul Normal 4.70-6.10 [facility] Comment on above: Result Comment: 2+ P OIKILOCYTOSIS 2+ ANISOCYTOSIS 2+ OVALOCYTE 1+ TEAR DROP CELL 2+ ACANTHOCYTE Performed By: #### C BC #### [facility] [address] [address] [address] Sonido Bejarano WBC 6.8 103/ul Normal 4.0-11.0 [facility] Comment on above: Performed By: #### C BC #### [facility] [address] [place] [address] Dr. Sonido Bejarano CBC AUTO DIFFon 12-20-2022 BASO # 0.0 103/ul Normal 0.0-0.[address] [facility] Comment on above: Performed By: #### C BC #### [facility] [address] [place] [address] Dr. Sonido Bejarano Basophils/100 WBC (Bld) 0.5 % Normal 0.2-2.[address] [facility] Comment on above: Performed By: #### C BC #### [facility] [address] [place] [address] Dr. Sonido Bejarano EO # 0.1 103/ul Normal 0.0-0.7 [facility] Comment on above: Performed By: #### C BC #### [facility] [address] [place] [address] Dr. Sonido Bejarano Eosinophils/100 WBC (Bld) 1.3 % Normal 0.9-7.[address] [facility] Comment on above: Performed By: #### C BC #### [facility] [address] [place] [address] Dr. Sonido Bejarano Erythrocyte distribution width (RBC) [Ratio] 22.8 % Critically high 11.0-15.0 [facility] Comment on above: Performed By: #### C BC #### [facility] [address] [place] [address] Dr. Sonido Bejarano Hematocrit (Bld) [Volume fraction] 34.5 % Critically low 42.0-54.0 [facility] Comment on above: Performed By: #### C BC #### [facility] [address] [place] [address] Dr. Sonido Bejarano Hemoglobin (Bld) [Mass/Vol] 8.9 g/dL Critically low 14.0-18.0 [facility] Comment on above: Performed By: #### C BC #### [facility] [address] [address] [address] Sonido Bejarano IG # 0.01 10e3/ul Normal 0.00-0.[address] [facility] Comment on above: Performed By: #### C BC #### [facility] [address] [address] [address] Sonido Bejarano IG % 0.2 % Normal 0.0-0.[address] [facility] Comment on above: Performed By: #### C BC #### [facility] [address] [place] [address] Dr. Sonido Bejarano LYMPH # 1.0 103/ul Critically low 1.2-3.8 [facility] Comment on above: Performed By: #### C BC #### [facility] [address] [place] [address] Dr. Sonido Bejarano Lymphocytes/100 WBC (Bld) 18.3 % Critically low 20.5-60.[address] [facility] Comment on above: Performed By: #### C BC #### [facility] [address] [place] [address] Dr. Sonido Bejarano MANUAL DIFF REQ NO Normal [facility] Comment on above: Performed By: #### C BC #### [facility] [address] [place] [address] Dr. Sonido Bejarano MCH (RBC) [Entitic mass] 15.6 pg Critically low 25.9-34.[address] [facility] Comment on above: Performed By: #### C BC #### [facility] [address] [place] [address] Dr. Sonido Bejarano MCHC (RBC) [Mass/Vol] 25.8 g/dL Critically low 29.9-35.[address] [facility] Comment on above: Performed By: #### C BC #### [facility] [address] [place] [address] Dr. Sonido Bejarano MCV (RBC) [Entitic vol] 60.6 fL Critically low 80.0-94.[address] [facility] Comment on above: Performed By: #### C BC #### [facility] [address] [address] [address] Sonido Bejarano MONO # 0.7 103/ul Normal 0.3-0.[address] [facility] Comment on above: Performed By: #### C BC #### [facility] [address] [address] [address] Sonido Bejarano Monocytes/100 WBC (Bld) 13.2 % Critically high 1.7-12.[address] [facility] Comment on above: Performed By: #### C BC #### [facility] [address] [place] [address] Dr. Sonido Bejarano NEUT # 3.7 103/ul Normal 1.4-6.[address] [facility] Comment on above: Performed By: #### C BC #### [facility] [address] [place] [address] Dr. Sonido Bejarano Neutrophils/100 WBC (Bld) 66.5 % Normal 43.0-75.[address] [facility] Comment on above: Performed By: #### C BC #### [facility] [address] [place] [address] Dr. Sonido Bejarano Platelet mean volume (Bld) [Entitic vol] 9.6 fL Normal 9.5-13.5 [facility] Comment on above: Performed By: #### C BC #### [facility] [address] [place] [address] Dr. Sonido Bejarano PLT 441 103/ul Normal 150-450 [facility] Comment on above: Performed By: #### C BC #### [facility] [address] [place] [address] Dr. Sonido Bejarano RBC 5.69 106/ul Normal 4.70-6.10 [facility] Comment on above: Result Comment: Anis ocytosis 2+ Hypochromasia 2+ Poikilocytosis 2+ Ovalocytes 1+ Tear drop cells 1+ Acanthocytes 1+ Performed By: #### C BC #### [facility] [address] [place] [address] Dr. Sonido Bejarano WBC 5.5 103/ul Normal 4.0-11.0 [facility] Comment on above: Performed By: #### C BC #### [facility] [address] [place] [address] Dr. Sonido Bejarano CBC AUTO DIFFon 11-20-2022 BASO # 0.1 103/ul Normal 0.0-0.[address] [facility] Comment on above: Performed By: #### C BC #### [facility] [address] [place] [address] Dr. Sonido Bejarano Basophils/100 WBC (Bld) 1.0 % Normal 0.2-2.[address] [facility] Comment on above: Performed By: #### C BC #### [facility] [address] [place] [address] Dr. Sonido Bejarano EO # 0.1 103/ul Normal 0.0-0.[address] [facility] Comment on above: Performed By: #### C BC #### [facility] [address] [place] [address] Dr. Sonido Bejarano Eosinophils/100 WBC (Bld) 2.1 % Normal 0.9-7.[address] [facility] Comment on above: Performed By: #### C BC #### [facility] [address] [place] [address] Dr. Sonido Bejarano Erythrocyte distribution width (RBC) [Ratio] 23.0 % Critically high 11.0-15.[address] [facility] Comment on above: Performed By: #### C BC #### [facility] [address] [place] [address] Dr. Sonido Bejarano Hematocrit (Bld) [Volume fraction] 32.6 % Critically low 42.0-54.[address] [facility] Comment on above: Performed By: #### C BC #### [facility] [address] [place] [address] Dr. Sonido Bejarano Hemoglobin (Bld) [Mass/Vol] 8.0 g/dL Critically low 14.0-18.[address] [facility] Comment on above: Performed By: #### C BC #### [facility] [address] [place] [address] Dr. Sonido Bejarano IG # 0.01 10e3/ul Normal 0.00-0.[address] [facility] Comment on above: Performed By: #### C BC #### [facility] [address] [place] [address] Dr. Sonido Bejarano IG % 0.2 % Normal 0.0-0.[address] [facility] Comment on above: Performed By: #### C BC #### [facility] [address] [place] [address] Dr. Sonido Bejarano LYMPH # 1.1 103/ul Critically low 1.2-3.8 [facility] Comment on above: Performed By: #### C BC #### [facility] [address] [place] [address] Dr. Sonido Bejarano Lymphocytes/100 WBC (Bld) 22.0 % Normal 20.5-60.[address] [facility] Comment on above: Performed By: #### C BC #### [facility] [address] [place] [address] Dr. Sonido Bejarano MANUAL DIFF REQ NO Normal [facility] Comment on above: Performed By: #### C BC #### [facility] [address] [place] [address] Dr. Sonido Bejarano MCH (RBC) [Entitic mass] 15.6 pg Critically low 25.9-34.[address] [facility] Comment on above: Performed By: #### C BC #### [facility] [address] [place] [address] Dr. Sonido Bejarano MCHC (RBC) [Mass/Vol] 24.5 g/dL Critically low 29.9-35.[address] [facility] Comment on above: Performed By: #### C BC #### [facility] [address] [place] [address] Dr. Sonido Bejarano MCV (RBC) [Entitic vol] 63.4 fL Critically low 80.0-94.[address] [facility] Comment on above: Performed By: #### C BC #### [facility] [address] [place] [address] Dr. Sonido Bejarano MONO # 0.6 103/ul Normal 0.3-0.[address] [facility] Comment on above: Performed By: #### C BC #### [facility] [address] [place] [address] Dr. Sonido Bejarano Monocytes/100 WBC (Bld) 13.0 % Critically high 1.7-12.[address] [facility] Comment on above: Performed By: #### C BC #### [facility] [address] [place] [address] Dr. Sonido Bejarano NEUT # 3.0 103/ul Normal 1.4-6.[address] [facility] Comment on above: Performed By: #### C BC #### [facility] [address] [place] [address] Dr. Sonido Bejarano Neutrophils/100 WBC (Bld) 61.7 % Normal 43.0-75.[address] [facility] Comment on above: Performed By: #### C BC #### [facility] [address] [place] [address] Dr. Sonido Bejarano Platelet mean volume (Bld) [Entitic vol] 8.6 fL Critically low 9.5-13.[address] [facility] Comment on above: Performed By: #### C BC #### [facility] [address] [place] [address] Dr. Sonido Bejarano PLT 333 103/ul Normal 150-[address] [facility] Comment on above: Performed By: #### C BC #### [facility] [address] [place] [address] Dr. Sonido Bejarano RBC 5.14 106/ul Normal 4.70-6.10 [facility] Comment on above: Performed By: #### C BC #### [facility] [address] [place] [address] Dr. Sonido Bejarano WBC 4.9 103/ul Normal 4.0-11.[address] [facility] Comment on above: Performed By: #### C BC #### [facility] [address] [place] [address] Dr. Sonido Bejarano CBC AUTO DIFFon 10-11-2022 BASO # 0.0 103/ul Normal 0.0-0.[address] [facility] Comment on above: Performed By: #### C BC #### [facility] [address] [address] [address] Sonido Bejarano Basophils/100 WBC (Bld) 0.8 % Normal 0.2-2.[address] [facility] Comment on above: Performed By: #### C BC #### [facility] [address] [address] [address] Sonido Bejarano EO # 0.1 103/ul Normal 0.0-0.7 [facility] Comment on above: Performed By: #### C BC #### [facility] [address] [address] [address] Sonido Bejarano Eosinophils/100 WBC (Bld) 1.5 % Normal 0.9-7.[address] [facility] Comment on above: Performed By: #### C BC #### [facility] [address] [place] [address] Dr. Sonido Bejarano Erythrocyte distribution width (RBC) [Ratio] 22.4 % Critically high 11.0-15.[address] [facility] Comment on above: Performed By: #### C BC #### [facility] [address] [place] [address] Dr. Sonido Bejarano Hematocrit (Bld) [Volume fraction] 32.3 % Critically low 42.0-54.[address] [facility] Comment on above: Performed By: #### C BC #### [facility] [address] [place] [address] Dr. Sonido Bejarano Hemoglobin (Bld) [Mass/Vol] 8.1 g/dL Critically low 14.0-18.[address] [facility] Comment on above: Performed By: #### C BC #### [facility] [address] [place] [address] Dr. Sonido Bejarano IG # 0.01 10e3/ul Normal 0.00-0.[address] [facility] Comment on above: Performed By: #### C BC #### [facility] [address] [place] [address] Dr. Sonido Bejarano IG % 0.2 % Normal 0.0-0.5 [facility] Comment on above: Performed By: #### C BC #### [facility] [address] [address] [address] Sonido Bejarano LYMPH # 1.2 103/ul Normal 1.2-3.[address] [facility] Comment on above: Performed By: #### C BC #### [facility] [address] [place] [address] Dr. Sonido Bejarano Lymphocytes/100 WBC (Bld) 22.8 % Normal 20.5-60.[address] [facility] Comment on above: Performed By: #### C BC #### [facility] [address] [place] [address] Dr. Sonido Bejarano MANUAL DIFF REQ NO Normal [facility] Comment on above: Performed By: #### C BC #### [facility] [address] [place] [address] Dr. Sonido Bejarano MCH (RBC) [Entitic mass] 15.1 pg Critically low 25.9-34.[address] [facility] Comment on above: Performed By: #### C BC #### [facility] [address] [place] [address] Dr. Sonido Bejarano MCHC (RBC) [Mass/Vol] 25.1 g/dL Critically low 29.9-35.[address] [facility] Comment on above: Performed By: #### C BC #### [facility] [address] [place] [address] Dr. Sonido Bejarano MCV (RBC) [Entitic vol] 60.0 fL Critically low 80.0-94.[address] [facility] Comment on above: Performed By: #### C BC #### [facility] [address] [place] [address] Dr. Sonido Bejarano MONO # 0.7 103/ul Normal 0.3-0.[address] [facility] Comment on above: Performed By: #### C BC #### [facility] [address] [place] [address] Dr. Sonido Bejarano Monocytes/100 WBC (Bld) 12.5 % Critically high 1.7-12.[address] [facility] Comment on above: Performed By: #### C BC #### [facility] [address] [place] [address] Dr. Sonido Bejarano NEUT # 3.2 103/ul Normal 1.4-6.[address] [facility] Comment on above: Performed By: #### C BC #### [facility] [address] [place] [address] Dr. Sonido Bejarano Neutrophils/100 WBC (Bld) 62.2 % Normal 43.0-75.0 [facility] Comment on above: Performed By: #### C BC #### [facility] [address] [place] [address] Dr. Sonido Bejarano Platelet mean volume (Bld) [Entitic vol] 8.6 fL Critically low 9.5-13.5 [facility] Comment on above: Performed By: #### C BC #### [facility] [address] [place] [address] Dr. Sonido Bejarano PLT 345 103/ul Normal 150-450 [facility] Comment on above: Performed By: #### C BC #### [facility] [address] [place] [address] Dr. Sonido Bejarano RBC 5.38 106/ul Normal 4.70-6.10 [facility] Comment on above: Performed By: #### C BC #### [facility] [address] [place] [address] Dr. Sonido Bejarano WBC 5.2 103/ul Normal 4.0-11.0 [facility] Comment on above: Performed By: #### C BC #### [facility] [address] [place] [address] Dr. Sonido Bejarano CBC W MANUAL DIFFon 09-18-20 ANISOCYTOSIS 3+ Normal [facility] Comment on above: Performed By: #### C BCMAN #### [facility] [address] [place] [address] Dr. Sonido Bejarano ATYPICAL LYMPH # Normal [facility] Comment on above: Performed By: #### C BCMAN #### [facility] [address] [place] [address] Dr. Sonido Bejarano ATYPICAL LYMPH % Normal [facility] Comment on above: Performed By: #### C BCMAN #### [facility] [address] [address] [address] Sonido Bejarano BAND # Normal 0.0-0.[address] [facility] Comment on above: Performed By: #### C BCMAN #### [facility] [address] [place] [address] Dr. Sonido Bejarano BAND % Normal 0-5 [facility] Comment on above: Performed By: #### C BCMAN #### [facility] [address] [place] [address] Dr. Sonido Bejarano BASOM # 0.00 103/ul Normal 0.00-0.[address] [facility] Comment on above: Performed By: #### C BCMAN #### [facility] [address] [place] [address] Dr. Sonido Bejarano BASOM % 0.0 % Critically low 0.2-2.0 [facility] Comment on above: Performed By: #### C BCMAN #### [facility] [address] [place] [address] Dr. Sonido Bejarano BLAST # Normal [facility] Comment on above: Performed By: #### C BCMAN #### [facility] [address] [place] [address] Dr. Sonido Bejarano BLAST % Normal [facility] Comment on above: Performed By: #### C BCKATHERINE #### [facility] [address] [place] [address] Dr. Sonido Bejarano CORRECTED WBC Normal 4.0-11.0 [facility] Comment on above: Performed By: #### C BCMAN #### [facility] [address] [place] [address] Dr. Sonido Bejarano EOS # 0.08 103/ul Normal 0.00-0.[address] [facility] Comment on above: Performed By: #### C BCMAN #### [facility] [address] [place] [address] Dr. Sonido Bejarano EOS% 2.0 % Normal 0.9-7.[address] [facility] Comment on above: Performed By: #### C RAMILA #### [facility] [address] [address] [address] Sonido Bejarano HCT 31.1 % Critically low 42.0-54.0 [facility] Comment on above: Performed By: #### C RAMILA #### [facility] [address] [address] [address] Sonido Bejarano HGB 8.3 g/dl Critically low 14.0-18.0 [facility] Comment on above: Performed By: #### C RAMILA #### [facility] [address] [address] [address] Sonido Bejarano HYPOCHROMASIA SLIGHT Normal [facility] Comment on above: Performed By: #### C RAMILA #### [facility] [address] [address] [address] Sonido Bejarano LYMPHM # 1.13 103/ul Critically low 1.20-3.80 [facility] Comment on above: Performed By: #### C RAMILA #### [facility] [address] [address] [address] Sonido Bejarano LYMPHM% 27.0 % Normal 20.5-60.[address] [facility] Comment on above: Performed By: #### C RAMILA #### [facility] [address] [address] [address] Sonido Bejarano MCH 15.9 pg Critically low 25.9-34.[address] [facility] Comment on above: Performed By: #### C RAMILA #### [facility] [address] [place] [address] Dr. Sonido Bejarano MCHC 26.7 g/dl Critically low 29.9-35.[address] [facility] Comment on above: Performed By: #### C RAMILA #### [facility] [address] [place] [address] Dr. Sonido Bejarano MCV 59.5 fL Critically low 80.0-94.[address] [facility] Comment on above: Performed By: #### C RAMILA #### [facility] [address] [address] [address] Sonido Bejarano METAMYELOCYTE # Normal [facility] Comment on above: Performed By: #### C RAMILA #### [facility] [address] [place] [address] Dr. Sonido Bejarano METAMYELOCYTE % Normal [facility] Comment on above: Performed By: #### C RAMILA #### [facility] [address] [place] [address] Dr. Sonido Bejarano MICROCYTOSIS 3+ Normal [facility] Comment on above: Performed By: #### C RAMILA #### [facility] [address] [place] [address] Dr. Sonido Bejarano MONOM# 0.55 103/ul Normal 0.30-0.[address] [facility] Comment on above: Performed By: #### C RAMILA #### [facility] [address] [place] [address] Dr. Sonido Bejarano MONOM% 13.0 % Critically high 1.7-12.0 [facility] Comment on above: Performed By: #### C RAMILA #### [facility] [address] [place] [address] Dr. Sonido Bejarano MPV 9.7 fL Normal 9.5-13.[address] [facility] Comment on above: Performed By: #### C RAMILA #### [facility] [address] [place] [address] Dr. Sonido Bejarano MYELOCYTE # Normal [facility] Comment on above: Performed By: #### C RAMILA #### [facility] [address] [place] [address] Dr. Sonido Bejarano MYELOCYTE % Normal [facility] Comment on above: Performed By: #### C RAMILA #### [facility] [address] [place] [address] Dr. Sonido Bejarano NRBC Normal [facility] Comment on above: Performed By: #### C RAMILA #### [facility] [address] [place] [address] Dr. Sonido Bejarano PLT 421 103/ul Normal 150-450 [facility] Comment on above: Performed By: #### C RAMILA #### [facility] [address] [address] [address] Sonido Bejarano RBC 5.23 106/ul Normal 4.70-6.10 [facility] Comment on above: Performed By: #### C OSWALDOMAN #### [facility] [address] [place] [address] Dr. Sonido Bejarano RDW 22.2 % Critically high 11.0-15.0 [facility] Comment on above: Performed By: #### C OSWALDOMAN #### [facility] [address] [place] [address] Dr. Sonido Bejarano SEG # 2.44 103/ul Normal 1.40-6.[address] [facility] Comment on above: Performed By: #### C RAMILA #### [facility] [address] [place] [address] Dr. Sonido Bejarano SEG % 58.0 % Normal 43.0-75.[address] [facility] Comment on above: Performed By: #### C OSWALDOMAN #### [facility] [address] [place] [address] Dr. Sonido Bejarano WBC 4.2 103/ul Normal 4.0-11.[address] [facility] Comment on above: Performed By: #### C OSWALDOMAN #### [facility] [address] [place] [address] Dr. Sonido Bejarano CBC AUTO DIFFon 08-21-2022 BASO # 0.0 103/ul Normal 0.0-0.[address] [facility] Comment on above: Performed By: #### C BC #### [facility] [address] [place] [address] Dr. Sonido Bejarano Basophils/100 WBC (Bld) 0.6 % Normal 0.2-2.0 [facility] Comment on above: Performed By: #### C BC #### [facility] [address] [place] [address] Dr. Sonido Bejarano EO # 0.1 103/ul Normal 0.0-0.7 [facility] Comment on above: Performed By: #### C BC #### [facility] [address] [place] [address] Dr. Sonido Bejarano Eosinophils/100 WBC (Bld) 1.0 % Normal 0.9-7.[address] [facility] Comment on above: Performed By: #### C BC #### [facility] [address] [place] [address] Dr. Sonido Bejarano Erythrocyte distribution width (RBC) [Ratio] 21.9 % Critically high 11.0-15.[address] [facility] Comment on above: Result Comment: anis ocytosis 2+ Performed By: #### C BC #### [facility] [address] [place] [address] Dr. Sonido Bejarano Hematocrit (Bld) [Volume fraction] 32.7 % Critically low 42.0-54.[address] [facility] Comment on above: Performed By: #### C BC #### [facility] [address] [place] [address] Dr. Sonido Bejarano Hemoglobin (Bld) [Mass/Vol] 8.4 g/dL Critically low 14.0-18.[address] [facility] Comment on above: Performed By: #### C BC #### [facility] [address] [place] [address] Dr. Sonido Bejarano IG # 0.01 10e3/ul Normal 0.00-0.[address] [facility] Comment on above: Performed By: #### C BC #### [facility] [address] [place] [address] Dr. Sonido Bejarano IG % 0.2 % Normal 0.0-0.5 [facility] Comment on above: Performed By: #### C BC #### [facility] [address] [place] [address] Dr. Sonido Bejarano LYMPH # 1.1 103/ul Critically low 1.2-3.8 [facility] Comment on above: Performed By: #### C BC #### [facility] [address] [place] [address] Dr. Sonido Bejarano Lymphocytes/100 WBC (Bld) 22.3 % Normal 20.5-60.[address] [facility] Comment on above: Performed By: #### C BC #### [facility] [address] [place] [address] Dr. Sonido Bejarano MANUAL DIFF REQ NO Normal [facility] Comment on above: Performed By: #### C BC #### [facility] [address] [place] [address] Dr. Sonido Bejarano MCH (RBC) [Entitic mass] 15.3 pg Critically low 25.9-34.[address] [facility] Comment on above: Performed By: #### C BC #### [facility] [address] [place] [address] Dr. Sonido Bejarano MCHC (RBC) [Mass/Vol] 25.7 g/dL Critically low 29.9-35.2 [facility] Comment on above: Result Comment: hypo chromasia 2+ Performed By: #### C BC #### [facility] [address] [place] [address] Dr. Sonido Bejarano MCV (RBC) [Entitic vol] 59.6 fL Critically low 80.0-94.[address] [facility] Comment on above: Result Comment: micr ocytosis 3+ Performed By: #### C BC #### [facility] [address] [place] [address] Dr. Sonido Bejarano MONO # 0.5 103/ul Normal 0.3-0.8 [facility] Comment on above: Performed By: #### C BC #### [facility] [address] [place] [address] Dr. Sonido Bejarano Monocytes/100 WBC (Bld) 10.8 % Normal 1.7-12.0 [facility] Comment on above: Performed By: #### C BC #### [facility] [address] [place] [address] Dr. Sonido Bejarano NEUT # 3.2 103/ul Normal 1.4-6.[address] [facility] Comment on above: Performed By: #### C BC #### [facility] [address] [place] [address] Dr. Sonido Bejarano Neutrophils/100 WBC (Bld) 65.1 % Normal 43.0-75.[address] [facility] Comment on above: Performed By: #### C BC #### [facility] [address] [place] [address] Dr. Sonido Bejarano Platelet mean volume (Bld) [Entitic vol] 9.5 fL Normal 9.5-13.[address] [facility] Comment on above: Performed By: #### C BC #### [facility] [address] [place] [address] Dr. Sonido Bejarano PLT 415 103/ul Normal 150-450 [facility] Comment on above: Performed By: #### C BC #### [facility] [address] [place] [address] Dr. Sonido Bejarano RBC 5.49 106/ul Normal 4.70-6.[address] [facility] Comment on above: Performed By: #### C BC #### [facility] [address] [place] [address] Dr. Sonido Bejarano WBC 5.0 103/ul Normal 4.0-11.[address] [facility] Comment on above: Performed By: #### C BC #### [facility] [address] [place] [address] Dr. Sonido Bejarano CBC AUTO DIFFon 08-02-2022 BASO # 0.0 103/ul Normal 0.0-0.[address] [facility] Comment on above: Performed By: #### C BC #### [facility] [address] [place] [address] Dr. Sonido Bejarano Basophils/100 WBC (Bld) 0.3 % Normal 0.2-2.0 [facility] Comment on above: Performed By: #### C BC #### [facility] [address] [place] [address] Dr. Sonido Bejarano EO # 0.0 103/ul Normal 0.0-0.7 [facility] Comment on above: Performed By: #### C BC #### [facility] [address] [place] [address] Dr. Sonido Bejarano Eosinophils/100 WBC (Bld) 0.7 % Critically low 0.9-7.0 [facility] Comment on above: Performed By: #### C BC #### [facility] [address] [place] [address] Dr. Sonido Bejarano Erythrocyte distribution width (RBC) [Ratio] 21.9 % Critically high 11.0-15.[address] [facility] Comment on above: Performed By: #### C BC #### [facility] [address] [place] [address] Dr. Sonido Bejarano Hematocrit (Bld) [Volume fraction] 30.0 % Critically low 42.0-54.[address] [facility] Comment on above: Performed By: #### C BC #### [facility] [address] [place] [address] Dr. Sonido Bejarano Hemoglobin (Bld) [Mass/Vol] 7.8 g/dL Critically low 14.0-18.[address] [facility] Comment on above: Performed By: #### C BC #### [facility] [address] [place] [address] Dr. Sonido Bejarano IG # 0.01 10e3/ul Normal 0.00-0.[address] [facility] Comment on above: Performed By: #### C BC #### [facility] [address] [place] [address] Dr. Sonido Bejarano IG % 0.2 % Normal 0.0-0.[address] [facility] Comment on above: Performed By: #### C BC #### [facility] [address] [place] [address] Dr. Sonido Bejarano LYMPH # 1.0 103/ul Critically low 1.2-3.8 [facility] Comment on above: Performed By: #### C BC #### [facility] [address] [place] [address] Dr. Sonido Bejarano Lymphocytes/100 WBC (Bld) 18.0 % Critically low 20.5-60.[address] [facility] Comment on above: Performed By: #### C BC #### [facility] [address] [place] [address] Dr. Sonido Bejarano MANUAL DIFF REQ NO Normal [facility] Comment on above: Performed By: #### C BC #### [facility] [address] [place] [address] Dr. Sonido Bejarano MCH (RBC) [Entitic mass] 15.9 pg Critically low 25.9-34.0 [facility] Comment on above: Performed By: #### C BC #### [facility] [address] [place] [address] Dr. Sonido Bejarano MCHC (RBC) [Mass/Vol] 26.0 g/dL Critically low 29.9-35.2 [facility] Comment on above: Performed By: #### C BC #### [facility] [address] [place] [address] Dr. Sonido Bejarano MCV (RBC) [Entitic vol] 61.2 fL Critically low 80.0-94.[address] [facility] Comment on above: Performed By: #### C BC #### [facility] [address] [place] [address] Dr. Sonido Bejarano MONO # 0.5 103/ul Normal 0.3-0.8 [facility] Comment on above: Performed By: #### C BC #### [facility] [address] [place] [address] Dr. Sonido Bejarano Monocytes/100 WBC (Bld) 8.7 % Normal 1.7-12.[address] [facility] Comment on above: Performed By: #### C BC #### [facility] [address] [place] [address] Dr. Sonido Bejarano NEUT # 4.1 103/ul Normal 1.4-6.5 [facility] Comment on above: Performed By: #### C BC #### [facility] [address] [place] [address] Dr. Sonido Bejarano Neutrophils/100 WBC (Bld) 72.1 % Normal 43.0-75.0 [facility] Comment on above: Performed By: #### C BC #### [facility] [address] [place] [address] Dr. Sonido Bejarano Platelet mean volume (Bld) [Entitic vol] 9.3 fL Critically low 9.5-13.5 [facility] Comment on above: Performed By: #### C BC #### [facility] [address] [place] [address] Dr. Sonido Bejarano PLT 339 103/ul Normal 150-450 [facility] Comment on above: Performed By: #### C BC #### [facility] [address] [place] [address] Dr. Sonido Bejarano RBC 4.90 106/ul Normal 4.70-6.10 [facility] Comment on above: Performed By: #### C BC #### [facility] [address] [place] [address] Dr. Sonido Bejarano WBC 5.7 103/ul Normal 4.0-11.0 [facility] Comment on above: Performed By: #### C BC #### [facility] [address] [place] [address] Dr. Sonido Bejarano CBC AUTO DIFFon 06-17-2022 BASO # 0.0 103/ul Normal 0.0-0.[address] [facility] Comment on above: Performed By: #### C BC #### [facility] [address] [place] [address] Dr. Sonido Bejarano Basophils/100 WBC (Bld) 0.7 % Normal 0.2-2.[address] [facility] Comment on above: Performed By: #### C BC #### [facility] [address] [place] [address] Dr. Sonido Bejarano EO # 0.3 103/ul Normal 0.0-0.7 [facility] Comment on above: Performed By: #### C BC #### [facility] [address] [place] [address] Dr. Sonido Bejarano Eosinophils/100 WBC (Bld) 5.3 % Normal 0.9-7.0 [facility] Comment on above: Performed By: #### C BC #### [facility] [address] [place] [address] Dr. Sonido Bejarano Erythrocyte distribution width (RBC) [Ratio] 22.1 % Critically high 11.0-15.[address] [facility] Comment on above: Performed By: #### C BC #### [facility] [address] [address] [address] Sonido Bejarano Hematocrit (Bld) [Volume fraction] 32.2 % Critically low 42.0-54.[address] [facility] Comment on above: Performed By: #### C BC #### [facility] [address] [address] [address] Sonido Bejarano Hemoglobin (Bld) [Mass/Vol] 8.2 g/dL Critically low 14.0-18.[address] [facility] Comment on above: Performed By: #### C BC #### [facility] [address] [place] [address] Dr. Sonido Bejarano IG # 0.01 10e3/ul Normal 0.00-0.[address] [facility] Comment on above: Performed By: #### C BC #### [facility] [address] [place] [address] Dr. Sonido Bejarano IG % 0.2 % Normal 0.0-0.[address] [facility] Comment on above: Performed By: #### C BC #### [facility] [address] [place] [address] Dr. Sonido Bejarano LYMPH # 1.1 103/ul Critically low 1.2-3.8 [facility] Comment on above: Performed By: #### C BC #### [facility] [address] [place] [address] Dr. Sonido Bejarano Lymphocytes/100 WBC (Bld) 19.3 % Critically low 20.5-60.[address] [facility] Comment on above: Performed By: #### C BC #### [facility] [address] [place] [address] Dr. Sonido Bejarano MANUAL DIFF REQ NO Normal [facility] Comment on above: Performed By: #### C BC #### [facility] [address] [place] [address] Dr. Sonido Bejarano MCH (RBC) [Entitic mass] 15.8 pg Critically low 25.9-34.[address] [facility] Comment on above: Performed By: #### C BC #### [facility] [address] [address] [address] Sonido Bejarano MCHC (RBC) [Mass/Vol] 25.5 g/dL Critically low 29.9-35.[address] [facility] Comment on above: Performed By: #### C BC #### [facility] [address] [address] [address] Sonido Bejarano MCV (RBC) [Entitic vol] 62.0 fL Critically low 80.0-94.[address] [facility] Comment on above: Performed By: #### C BC #### [facility] [address] [address] [address] Sonido Bejarano MONO # 0.9 103/ul Critically high 0.3-0.8 [facility] Comment on above: Performed By: #### C BC #### [facility] [address] [place] [address] Dr. Sonido Bejarano Monocytes/100 WBC (Bld) 16.0 % Critically high 1.7-12.[address] [facility] Comment on above: Performed By: #### C BC #### [facility] [address] [address] [address] Sonido Bejarano NEUT # 3.2 103/ul Normal 1.4-6.[address] [facility] Comment on above: Performed By: #### C BC #### [facility] [address] [place] [address] Dr. Sonido Bejarano Neutrophils/100 WBC (Bld) 58.5 % Normal 43.0-75.0 [facility] Comment on above: Performed By: #### C BC #### [facility] [address] [address] [address] Sonido Bejarano Platelet mean volume (Bld) [Entitic vol] 9.3 fL Critically low 9.5-13.[address] [facility] Comment on above: Performed By: #### C BC #### [facility] [address] [address] [address] Sonido Bejarano PLT 335 103/ul Normal 150-450 [facility] Comment on above: Performed By: #### C BC #### [facility] [address] [address] [address] Sonido Bejarano RBC 5.19 106/ul Normal 4.70-6.10 [facility] Comment on above: Performed By: #### C BC #### [facility] [address] [place] [address] Dr. Sonido Bejarano WBC 5.5 103/ul Normal 4.0-11.0 [facility] [facility] Comment on above: Performed By: #### C BC #### [facility] [address] [place] [address] Dr. Sonido Bejarano CBC AUTO DIFFon 05-15-2022 BASO # 0.0 103/ul Normal 0.0-0.1 [facility] Comment on above: Performed By: #### C BC #### [facility] [address] [place] [address] Dr. Sonido Bejarano Basophils/100 WBC (Bld) 0.8 % Normal 0.2-2.0 [facility] Comment on above: Performed By: #### C BC #### [facility] [address] [place] [address] Dr. Sonido Bejarano EO # 0.1 103/ul Normal 0.0-0.7 [facility] Comment on above: Performed By: #### C BC #### [facility] [address] [place] [address] Dr. Sonido Bejarano Eosinophils/100 WBC (Bld) 2.3 % Normal 0.9-7.0 [facility] Comment on above: Performed By: #### C BC #### [facility] [address] [place] [address] Dr. Sonido Bejarano Erythrocyte distribution width (RBC) [Ratio] 21.5 % Critically high 11.0-15.0 [facility] Comment on above: Performed By: #### C BC #### [facility] [address] [place] [address] Dr. Sonido Bejarano Hematocrit (Bld) [Volume fraction] 30.5 % Critically low 42.0-54.0 [facility] Comment on above: Performed By: #### C BC #### [facility] [address] [place] [address] Dr. Sonido Bejarano Hemoglobin (Bld) [Mass/Vol] 7.9 g/dL Critically low 14.0-18.[address] [facility] Comment on above: Performed By: #### C BC #### [facility] [address] [place] [address] Dr. Sonido Bejarano IG # 0.01 10e3/ul Normal 0.00-0.[address] [facility] Comment on above: Performed By: #### C BC #### [facility] [address] [place] [address] Dr. Sonido Bejarano IG % 0.2 % Normal 0.0-0.[address] [facility] Comment on above: Performed By: #### C BC #### [facility] [address] [place] [address] Dr. Sonido Bejarano LYMPH # 1.3 103/ul Normal 1.2-3.8 [facility] Comment on above: Performed By: #### C BC #### [facility] [address] [place] [address] Dr. Sonido Bejarano Lymphocytes/100 WBC (Bld) 24.6 % Normal 20.5-60.[address] [facility] Comment on above: Performed By: #### C BC #### [facility] [address] [place] [address] Dr. Sonido Bejarano MANUAL DIFF REQ NO Normal [facility] Comment on above: Performed By: #### C BC #### [facility] [address] [place] [address] Dr. Sonido Bejarano MCH (RBC) [Entitic mass] 15.6 pg Critically low 25.9-34.0 [facility] Comment on above: Performed By: #### C BC #### [facility] [address] [place] [address] Dr. Sonido Bejarano MCHC (RBC) [Mass/Vol] 25.9 g/dL Critically low 29.9-35.2 [facility] Comment on above: Performed By: #### C BC #### [facility] [address] [place] [address] Dr. Sonido Bejarano MCV (RBC) [Entitic vol] 60.4 fL Critically low 80.0-94.[address] [facility] Comment on above: Performed By: #### C BC #### [facility] [address] [place] [address] Dr. Sonido Bejarano MONO # 0.6 103/ul Normal 0.3-0.8 [facility] Comment on above: Performed By: #### C BC #### [facility] [address] [place] [address] Dr. Sonido Bejarano Monocytes/100 WBC (Bld) 12.1 % Critically high 1.7-12.[address] [facility] Comment on above: Performed By: #### C BC #### [facility] [address] [place] [address] Dr. Sonido Bejarano NEUT # 3.1 103/ul Normal 1.4-6.[address] [facility] Comment on above: Performed By: #### C BC #### [facility] [address] [place] [address] Dr. Sonido Bejarano Neutrophils/100 WBC (Bld) 60.0 % Normal 43.0-75.[address] [facility] Comment on above: Performed By: #### C BC #### [facility] [address] [place] [address] Dr. Sonido Bejarano Platelet mean volume (Bld) [Entitic vol] 9.6 fL Normal 9.5-13.5 [facility] Comment on above: Performed By: #### C BC #### [facility] [address] [place] [address] Dr. Sonido Bejarano PLT 399 103/ul Normal 150-450 [facility] Comment on above: Performed By: #### C BC #### [facility] [address] [place] [address] Dr. Sonido Bejarano RBC 5.05 106/ul Normal 4.70-6.10 [facility] Comment on above: Performed By: #### C BC #### [facility] [address] [place] [address] Dr. Sonido Bejarano WBC 5.1 103/ul Normal 4.0-11.[address] [facility] Comment on above: Performed By: #### C BC #### [facility] [address] [place] [address] Dr. Sonido Bejarano CBC AUTO DIFFon 04-15-2022 BASO # 0.0 103/ul Normal 0.0-0.[address] [facility] Comment on above: Performed By: #### C BC #### [facility] [address] [place] [address] Dr. Sonido Bejarano Basophils/100 WBC (Bld) 0.3 % Normal 0.2-2.[address] [facility] Comment on above: Performed By: #### C BC #### [facility] [address] [place] [address] Dr. Sonido Bejarano EO # 0.1 103/ul Normal 0.0-0.[address] [facility] Comment on above: Performed By: #### C BC #### [facility] [address] [place] [address] Dr. Sonido Bejarano Eosinophils/100 WBC (Bld) 1.0 % Normal 0.9-7.[address] [facility] Comment on above: Performed By: #### C BC #### [facility] [address] [place] [address] Dr. Sonido Bejarano Erythrocyte distribution width (RBC) [Ratio] 21.2 % Critically high 11.0-15.[address] [facility] Comment on above: Performed By: #### C BC #### [facility] [address] [place] [address] Dr. Sonido Bejarano Hematocrit (Bld) [Volume fraction] 32.2 % Critically low 42.0-54.[address] [facility] Comment on above: Performed By: #### C BC #### [facility] [address] [place] [address] Dr. Sonido Bejarano Hemoglobin (Bld) [Mass/Vol] 8.3 g/dL Critically low 14.0-18.[address] [facility] Comment on above: Performed By: #### C BC #### [facility] [address] [place] [address] Dr. Sonido Bejarano IG # 0.03 10e3/ul Normal 0.00-0.[address] [facility] Comment on above: Performed By: #### C BC #### [facility] [address] [place] [address] Dr. Sonido Bejarano IG % 0.4 % Normal 0.0-0.[address] [facility] Comment on above: Performed By: #### C BC #### [facility] [address] [place] [address] Dr. Sonido Bejarano LYMPH # 1.0 103/ul Critically low 1.2-3.8 [facility] Comment on above: Performed By: #### C BC #### [facility] [address] [place] [address] Dr. Sonido Bejarano Lymphocytes/100 WBC (Bld) 15.2 % Critically low 20.5-60.[address] [facility] Comment on above: Performed By: #### C BC #### [facility] [address] [place] [address] Dr. Sonido Bejarano MANUAL DIFF REQ NO Normal [facility] Comment on above: Performed By: #### C BC #### [facility] [address] [place] [address] Dr. Sonido Bejarano MCH (RBC) [Entitic mass] 16.1 pg Critically low 25.9-34.[address] [facility] Comment on above: Performed By: #### C BC #### [facility] [address] [place] [address] Dr. Sonido Bejarano MCHC (RBC) [Mass/Vol] 25.8 g/dL Critically low 29.9-35.[address] [facility] Comment on above: Performed By: #### C BC #### [facility] [address] [place] [address] Dr. Sonido Bejarano MCV (RBC) [Entitic vol] 62.4 fL Critically low 80.0-94.[address] [facility] Comment on above: Performed By: #### C BC #### [facility] [address] [place] [address] Dr. Sonido Bejarano MONO # 0.6 103/ul Normal 0.3-0.[address] [facility] Comment on above: Performed By: #### C BC #### [facility] [address] [place] [address] Dr. Sonido Bejarano Monocytes/100 WBC (Bld) 8.5 % Normal 1.7-12.[address] [facility] Comment on above: Performed By: #### C BC #### [facility] [address] [place] [address] Dr. Sonido Bejarano NEUT # 5.0 103/ul Normal 1.4-6.[address] [facility] Comment on above: Performed By: #### C BC #### [facility] [address] [place] [address] Dr. Sonido Bejarano Neutrophils/100 WBC (Bld) 74.6 % Normal 43.0-75.[address] [facility] Comment on above: Performed By: #### C BC #### [facility] [address] [place] [address] Dr. Sonido Bejarano Platelet mean volume (Bld) [Entitic vol] 9.9 fL Normal 9.5-13.[address] [facility] Comment on above: Performed By: #### C BC #### [facility] [address] [place] [address] Dr. Sonido Bejarano PLT 355 103/ul Normal 150-450 [facility] Comment on above: Performed By: #### C BC #### [facility] [address] [place] [address] Dr. Sonido Bejarano RBC 5.16 106/ul Normal 4.70-6.10 [facility] Comment on above: Result Comment: 1+ o valocytes slight hypochromic slight microchromic Performed By: #### C BC #### [facility] [address] [place] [address] Dr. Sonido Bejarano WBC 6.7 103/ul Normal 4.0-11.0 [facility] Comment on above: Performed By: #### C BC #### [facility] [address] [place] [address] Dr. Sonido Bejarano CNOVon 03-28-2022 CNOV Office Visit ([facility] ) RJ COLBERT ([id number]) 2000 [place] Date Time Provider Department 03/28/22 11:20 AM ARNOLD GENAO [facility] During your visit today, we recorded the [...] the office on 11/16/21 with Cristal Nava CHAIRMAN AND CHIEF EXECUTIVE OFFICER for follow up visit after he underwent an ablation of internal hemorrhoids in 2 columns on 10/17/21. PAST MEDICAL HISTORY Diagnosis Date - Attention deficit hyperactivity disorder - MR (mental retardation) - Schizophrenia (HCC) - Tic disorder PAST SURGICAL HISTORY Procedure Laterality Date - ABDOMINAL SURGERY HX - HEMORRHOID;BAND LIGAT, JENNIFER/YASSINE 07/12/2021 Current Outpatient Medications Medication Sig [...] exam Anorectal: External exam reveals: see below Faculty Support Coordinator present: yes Assessment Assessment and Plan: Rj [...] 03/28/2022 02:47 PM Modules accepted: Orders Arnold Geano MD 03/28/2022 3:11 PM Signed Addended by: ARNOLD GENAO on: 03/28/2022 03:11 PM Modules accepted: Orders Referring Provider: SELF [[id number]] Allergies As of Date: 03/28/2022 (No Known Allergies) Date Reviewed: 03/28/2022 Reviewed by: Yamile Berrios MA - Fully Assessed Reason for Visit: Established Patient Follow-Up [[id number]] Rectal Bleeding [202] Primary Visit Diagnosis:Hematochezia [K92.1] [...] (more content not included)... Normal [facility]) RJ COLBERT ([id number]) 2000 [place]* Date Time Provider Department 03/28/22 ARNOLD GENAO [facility] During your visit today, we recorded the following information about you: Essie Pickard Pss 03/28/2022 1:41 PM Signed Patient called and left message regarding prescription from today's visit return call to [phone] Charley Mcclelland, BELINDA 03/28/2022 2:49 PM Signed [...] Fully Assessed Reason for Visit: Patient Question [2199] Prescriptions as of 03/28/2022 - acetaminophen (TYLENOL) [...] Encounter Status:Closed by CHARLEY MCCLELLAND on 03/28/22 [facility] Telephone ([id number]) RJ COLBERT ([id number]) 2000 [place] Date Time Provider Department 03/28/22 VICTOR MANUELARNOLD FINNEGAN [id number] During your visit today, we recorded the following information about you: Sara Rose ADM 03/28/2022 3:45 PM Signed Pharmacy, [facility], [facility], phone , any pharmacist to clarify about carbonate? CALM is [facility] able to order as food item? Please call to discuss. Charley Mcclelland, RN 03/28/2022 4:14 PM Signed Spoke with the pharmacist and she states that she does not provide food items. She will speak with the nurse at the [facility]. Allergies As of Date: 03/28/2022 (No Known [...] Encounter Status:Closed by CHARLEY MCCLELLAND on 03/28/22 [facility] CNOVon 11-16-2021 CNOV Office Visit ([facility] ) RJ COLBERT ([id number]) 2000 [place] Date Time Provider Department 11/16/21 1:30 PM CRISTAL NAVA During your visit today, we recorded the following information about you: Pulse Blood pressure Weight Height 60/minute 136/80 96.2 kg 1.803 m Cristal Nava APRN.[employer] CUTTER MACHINE 11/16/2021 12:59 PM Signed COLORECTAL SURGERY November [...] results with patient and POA. Cristal Nava APRN.[employer] CUTTER MACHINE Colorectal Surgery Referring Provider: ARNOLD GENAO [[id number]] Allergies As of Date: 11/16/2021 (No Known Allergies) Date Reviewed: 11/16/2021 Reviewed by: Cristal Nava APRN.[facility] - Fully Assessed Reason for Visit: Post [...] (more content not included)... Normal [facility] ANES POSTPROC EVALon 021 ANES POSTPROC EVAL HNO ID: [id number] Author: Michael Martínez MD Service: Anesthesiology Author Type: Anesthesiologist Type: Anesthesia Postprocedure Evaluation Filed: 10/17/2021 10:23 AM Note Text: POST ANESTHESIA EVALUATION NOTE : 2000 Procedure Summary Date: 10/17/21 Room / Location: [address] / [facility] Anesthesia Start: 841 Anesthesia Stop: [...] October 17, 2021 TIME: 10:23 AM CSN: [id number] [facility] ANES PRE-OPon 10-17-2021 ANES PRE-OP HNO ID: [id number] Author: Michael Martínez MD Service: Anesthesiology Author Type: Anesthesiologist Type: Anesthesia Preprocedure Evaluation Filed: 10/17/2021 8:32 AM Note Text: ANESTHESIOLOGY DAY OF SURGERY NOTE : 2000 Procedure Information Date/Time: 10/17/21729 Procedure: HEMORRHOIDECTOMY EXTERNAL > 2 COLUMNS/GROUPS (N/A ) Location: [address] Surgeons: Arnold Genao MD Estimated body [...] October 17, 2021 TIME: 8:27 AM CSN: [id number] [facility] BRIEF OP NOTon 10-17-2021 BRIEF OP NOT HNO ID: [id number] Author: Jared Rowe MD Service: Colorectal Author Type: Resident Type: Brief Op Note Filed: 10/17/2021 9:15 AM Note Text: BRIEF OPERATIVE / PROCEDURE NOTE LOG ID: [id number] SURGERY/PROCEDURE DATE: 10/17/2021 INCISION/PROCEDURE START TIME: 8:55 AM INCISION CLOSE/PROCEDURE END TIME: 9:02 AM SURGEON(S)/PROCEDURALIS T(S) AND BUNDLE COLLECTOR(S): Surgeon(s) and Role: * Arnold Genao MD [...] DATE: October 17, 2021 TIME: 9:13 AM [facility] HISTORY PHYSICALon HISTORY PHYSICAL HNO ID: [id number] Author: Jared Rowe MD Service: Colorectal Author [...] October 17, 2021 TIME: 7:22 AM Normal [facility] OPERATIVE NOon 10-17-2021 OPERATIVE NO HNO ID: [id number] Author: Arnold Genao MD Service: Colorectal Author Type: Physician Type: Operative Report Filed: 10/30/2021 11:21 AM Note Text: [facility] - Operative Report RJ COLBERT : 2000 AGE: 21. SEX: M PATIENT TYPE: A [facility] [facility] LOCATION: [facility] ATTENDING PHYSICIAN: Arnold Genao M.D. CSN NUMBER: [id number] DATE OF SURGERY/PROCEDURE: 10/17/2021 INCISION/PROCEDURE START TIME: 8:55 AM INCISION CLOSE/PROCEDURE END TIME: 9:02 AM PREOPERATIVE DIAGNOSIS: Hemorrhoids. POSTOPERATIVE DIAGNOSIS: Hemorrhoids. SURGEON: Arnold Genao M.D. BUNDLE COLLECTOR: Jared. SURGERY/PROCEDURE: Ablation. ANESTHESIA: General ESTIMATED BLOOD [...] was overall very minor. Arnold Genao M.D. BC:[id number] /[id number] Normal [facility] HISTORY PHYSICALon 1 HISTORY PHYSICAL HNO ID: [id number] Author: Zahira Heath APRN.[employer] MACH[employer] Service: ? Author Type: Nurse Practitioner Type: [...] PAT today with a caregiver from his [facility]. States he is having around 5 bowel [...] fevers. Neuro: No history of TIA's, stroke, HAULING CONTRACTOR tumor, impaired sensorium, hemiplegia, paraplegia or quadraplegia. No neurological symptoms or problems. Respiratory: No history of current cough or dyspnea, or pneumonia in the past 6 weeks. No history of respiratory/pulmonary symptoms or problems. Cardiovascular: No history of HTN requiring medication, no history of angina, CHF, NM, cardiac surgery or stents. Denies rest pain, [...] (more content not included)... Normal [facility] CNOVon 08-31-2021 CNOV Office Visit ([facility] ) RJ COLBERT ([id number]) 2000 [place]* Date Time Provider Department 08/31/21 1:30 PM ARNOLD GENAO [facility] During your visit today, we recorded the [...] Anorectal: External exam reveals : see below Faculty Support Coordinator present: yes Assessment Assessment and Plan: Rj Colbert is a 21 year old male who is doing relatively well after his recent rubber band ligation. He still has some rectal bleeding and it is difficult to assess the exact amount. If the bleeding persists we will consider internal hemorrhoidectomy. Arnold Genao MD Colorectal Surgery Referring Provider: ELHAM VAN [[id number]] Allergies As of Date: 08/31/2021 (No Known [...] Encounter Status:Closed by ARNOLD GENAO on 09/02/21 [facility] OPERATIVE NOon 07-17-2021 OPERATIVE NO HNO ID: [id number] Author: Arnold Genao MD Service: Colorectal Author Type: Physician Type: Operative Report Filed: 08/01/2021 1:12 PM Note Text: [facility] - Operative Report RJ COLBERT : 2000 AGE: 21. SEX: M PATIENT TYPE: A [facility] [place] [facility] LOCATION: [facility] ATTENDING PHYSICIAN: Arnold Genao M.D. CSN NUMBER: [id number] DATE OF SURGERY/PROCEDURE: 07/12/2021 INCISION/PROCEDURE START TIME: 10:55 AM INCISION CLOSE/PROCEDURE END TIME: 10:58 AM PREOPERATIVE DIAGNOSIS: Rectal bleeding. POSTOPERATIVE DIAGNOSIS: Rectal bleeding. SURGEON: Arnold Genao M.D. BUNDLE COLLECTOR: None. SURGERY/PROCEDURE: Rubber-band ligation hemorrhoidectomy. ANESTHESIA: General [...] room in good condition. Arnold Genao M.D. BC:[id number] /[id number] [facility] 07-13-2021 CNPN Telephone ([facility]) RJ COLBERT ([id number]) 2000 [place]* Date Time Provider Department 07/13/21 ARNOLD GENAO [facility] During your visit today, we recorded the following information about you: Essie Pickard Pss 07/13/2021 3:27 PM Signed Patient's caregiver called with post operative hemorrhoidectomy questions and concerns of bands falling off return call to [phone] Sara Rose [facility] 07/16/2021 12:22 PM Signed Kasia, caregiver called. Patient banding undone. Called last Friday, waiting to talk to nurse about care. [phone] Nona Banks RN 07/16/2021 4:56 PM Signed [...] Encounter Status:Closed by NONA BANKS on 07/16/21 [facility] ANES POSTPROC EVALon 021 ANES POSTPROC EVAL HNO ID: [id number] Author: Jared Arriaga MD Service: Anesthesiology Author Type: Anesthesiologist Type: Anesthesia Postprocedure Evaluation Filed: 07/12/2021 12:05 PM Note Text: POST ANESTHESIA EVALUATION NOTE : 2000 Procedure Summary Date: 07/12/21 Room / Location: [address] / [facility] Anesthesia Start: 1044 Anesthesia Stop: [...] July 12, 2021 TIME: 12:05 PM CSN: [id number] [facility] ANES PRE-OPon 07-12-2021 ANES PRE-OP HNO ID: [id number] Author: Jared Arriaga MD Service: Anesthesiology Author [...] July 12, 2021 TIME: 9:18 AM CSN: [id number] Normal [facility] HISTORY PHYSICALon HISTORY PHYSICAL HNO ID: [id number] Author: Arnold Genao MD Service: Colorectal Author [...] DATE: July 12, 2021 TIME: 10:39 AM [facility] HISTORY PHYSICALon HISTORY PHYSICAL HNO ID: [id number] Author: Zahira Ivy PA-C Service: ? Author Type: Physician Bailing Machine Operator Type: HANDP Filed: 07/10/2021 2:28 PM [...] PAT today with a caregiver from his [facility]. States he is having around 5 bowel [...] fevers. Neuro: No history of TIA's, stroke, HAULING CONTRACTOR tumor, impaired sensorium, hemiplegia, paraplegia or quadraplegia. No neurological symptoms or problems. + MR / DD Respiratory: No history of current cough or dyspnea, or pneumonia in the past 6 weeks. No history of respiratory/pulmonary symptoms or problems. Cardiovascular: No history of HTN requiring medication, no history of angina, CHF, NM, cardiac surgery or stents. Denies rest pain, [...] found for: (more content not included)... Normal [facility] 07-05-2021 [facility] Telephone ([id number]) RJ COLBERT ([id number]) 2000 M Date Time Provider Department 07/05/21 ARNOLD GENAO [id number] During your visit today, we recorded the following information about you: Sara Rose [facility] 07/05/2021 3:26 PM Signed Kasia Nurse Character Impersonator at [facility] where [facility] called to discuss procedure information and date. Call to discuss [phone] Sara Rose [facility] 07/06/2021 11:12 AM Signed Kasia nurse aware of 07/12 procedure date. Would like the nurse to call to advise any prep instructions other than fasting after midnight. Call Nurse Kasia mgr [phone] Cristal Nava APRN.[facility] 07/06/2021 12:27 PM Signed Call returned. Reviewed NPO after midnight and scheduled PACCs appointment. Allergies As of Date: 07/05/2021 (No Known Allergies) Date Reviewed: 06/29/2021 Reviewed by: Arnold Genao MD - Fully Assessed Reason for Visit: procedure info [Other] Cmt: discuss plan Primary Visit Diagnosis:Hemorrhoids, internal, with bleeding [K64.8] Order(s):VIRTUAL CONSULT TO PACC [[id number]] Order #: [id number]: 1 FUTURE Prescriptions as of 07/06/2021 - [...] Encounter Status:Closed by CRISTAL NAVA on 07/06/21 [facility] CNOVon 06-29-2021 CNOV Office Visit ([facility] ) RJ COLBERT ([id number]) 2000 M Date Time Provider Department 06/29/21 [...] clinic today with a caregiver from his [facility]. They relate that he is having around [...] (222 lb 4.8 oz) BMI 31.90 kg/m? Faculty Support Coordinator present: Yes Rj Colbert is a 21 year old male presents with complaint of rectal bleeding with prolapsing Grade 3 internal hemorrhoids on exam. Our plan is to perform an EUA and rubber band ligation [facility] internal hemorrhoids at the [facility]. Medical Decision Making: Arnold Genao MD Colorectal Surgery Referring Provider: ELHAM VAN [[id number]] Allergies As of Date: 06/29/2021 (No Known [...] Encounter Status:Closed by ARNOLD GENAO on 06/29/[address] [facility] 05-22-2021 CNPN Telephone ([facility]) RJ COLBERT ([id number]) 2000 M Date Time Provider Department 05/22/21 ARNOLD GENAO [facility] During your visit today, we recorded the following information about you: Tamiko Sweeney 05/22/2021 3:28 PM Signed Ph. [phone] Alivia, who works for [employer], was transferred to Dr. Van's office from the appt line. Alivia needs to schedule Ryanjalim for rectal prolapse. Upon speaking with Alivia, [...] Genao - Fully Assessed Reason for Visit: Cheese Maker - Other [0259] Cmt: appointment Prescriptions as of 05/23/2021 - [...] NONA BANKS on 05/23/21 Normal [facility] Coding Summary.on 05-01-2018 Coding Summary. CODING DATE: FINAL [facility] STATUS: Home (Routine DC) PAYOR: Medicaid [...] PROC EAPG STAT DESCRIPTION DOCTOR NAME DATE 52991 0149 Colonoscopy, flexible; Colin Shirley MD 04/17/2018 with biopsy, single or multiple 74 Discontinued [facility]Patient [facility] Procedure After Administration of Anesthe 31793 Anesthesia for lower Colin hSirley MD 04/17/2018 intestinal endoscopic procedures, endoscope introduced distal to duodenum; not otherwise specified NOTE: The code number assigned matches the documented diagnosis and / or procedure in the patient's chart. However, the narrative phrase printed from the coding software may appear abbreviated, or result in slightly different terminology. Coded By: Sary Little Date Saved: 05/01/2018 08:02 am Normal [facility] Coding Summary. CODING DATE: FINAL [facility] STATUS: Home (Routine DC) PAYOR: Medicaid [...] PROC EA STAT DESCRIPTION DOCTOR NAME DATE 04437 0149 Colonoscopy, flexible; Colin Shirley MD 04/17/2018 with biopsy, single or multiple 74 Discontinued Out[facility] ([facility]) Procedure After Administration of Anesthe 44823 Anesthesia for lower Colin Shirley MD 04/17/2018 intestinal endoscopic procedures, endoscope introduced distal to duodenum; not otherwise specified NOTE: The code number assigned matches the documented diagnosis and / or procedure in the patient's chart. However, the narrative phrase printed from the coding software may appear abbreviated, or result in slightly different terminology. Coded By: Sary Little Date Saved: 04/23/2018 11:46 am Normal [facility] Progress Note-Physicianon Progress Note-Physician Patient: RJ COLBERT [...] Cardiovascular: Regular rhythm. Neurologic: Alert, Oriented. Plan [place] [employer] Anesthesiologists (ASA) physical status classification: Class II. Anesthetic Preoperative Plan Anesthesia: General. . Anesthetic plan, risks, benefits, and alternatives discussed with the patient and/or family. Communication: face to face with (patient 5 minutes, Patient educated on smoking cesstation). Normal [facility] Comment on above: Result Comment: Elec tronically Signed By: Rusty Fagan DO, Quincy Gregory\.br\Date and Time Signed: 04/28/18 08:15 EDT Main OR Intraoperative Recor don 04-20-2018 Main OR Intraoperative Record IntraOp Document Type FT Summary Primary Physician: Colin Shirley MD Finalized Date/Time: 04/20/18 09:38:35 Pt. Name: RJ COLBERTO.B./Sex: 2000 Male Med Rec #: [id number] Physician: Colin Shirley MD Financial #: [id number] Pt. Type: O Room/Bed: / Admit/Disch: 04/17/18 [...] Felix CST Role Performed Surgeon - Primary Adjunct Professor - Primary Scrub - Primary Time In 04/17/18 13:14:00 04/17/18 13:14:00 04/17/18 13:14:00 Time Out 04/17/18 13:32:00 04/17/18 13:32:00 04/17/18 13:32:00 Procedure COLONOSCOPY(.) COLONOSCOPY(.) COLONOSCOPY(.) Comments Last Modified By: Anju RN, Ashlee Rene RN, Ashlee Rene RN, Ashlee 04/17/18 13:32:29 04/17/18 13:32:29 04/17/18 13:32:29 Entry 4 Entry 5 Entry 6 Case Attendee [place] Zenaida Joshi Carly C Tech, Amy C Role Performed Scrub - Other Scrub - Other Anesthesiologist Bailing Machine Operator Time In 04/17/18 13:14:00 04/17/18 13:14:00 [...] Participants Anju TREVINO, Festus Rosado Carly C, Rice CST, Tori [facility] Magi Hammond Miles, Kirstyn K Time [...] and tissue Entry 1 Skin Integrity Intact, [place], Warm, and Skin Abnormality No Dry Outcomes [...] RN Patient Status Stable Skin. Condition Intact, [place], Warm, and Dry Airway Maintenance Oxygen in Use? No Airway Device N/A Outcomes Met? Yes Last Modified By: Ashlee Rene RN 04/17/18 07:23:58 Post-Care Text: The patient is free from signs and symptoms of injury related to transfer/transport General Comments: REPORT GIVEN TO BARLEY STEEPER/ AW electron beam operator Administration FT Pre-Care Text: Verifies allergies, administers prescribed medications and solutions, administers prescribed antibiotic therapy and immunizing agents as ordered, evaluates response to medications Administers prescribed medications and solutions Entry 1 Expiration Date Yes Outcomes Met? Yes Verified Last Modified By: Ashlee Rene RN 04/17/18 07:24:05 Post-Care Text: The patient received appropriate medication(s) safely administered during the perioperative period [facility] please see scanned medication reconcilliation form for [...] 13:32 Addie Oreilly CST 04/20/18 09:38 Normal [facility] History and Physicalon 04-17 History and Physical Date: 03/10/2018 2:15 PMPatient Name: Rj Lepe #: [id number]: MaleDOB (age): 2000 (17)Provider: Annie Benton Complaint: Change in Bowel habits Blood in StoolHistory of Present Illness:17 years old -[place] male with multiple psychiatric problems, lives in a [facility], referred to me to be evaluatedfor rectal [...] stool incontinence, stomachPrinted on 04/10/2018 Rj Colbert, 12394, 2000 Page 1 of 4Printed on 04/10/2018 Rj Colbert, 39654, 1998cramps, straining. Denies abdominal pain, abdominal swelling, [...] up blood.Vital Signs:BP(mmHg)Pulse(ppm )Rhythm Weight (lbs/oz) Resp/min Gltl769/68 82 Regular 191 / 12 98.3 (F)Physical [...] hemorrhageConstipationP brian: Colonoscopy will be performed at [facility] .Printed on 04/10/2018 Rj Colbert, 56298, 2000 Page 2 of 4Printed on 04/10/2018 Rj Colbert, 87095, 2000Risk & Medical Necessity: Diagnosis and management options are Extensive. The amount of data reviewedand/or ordered is Moderate. The level of risk is Moderate.Colin Shirley MD Rj Colbert, 84467, 2000 Page 3 of 4Printed on 04/10/2018 Rj Colbert, 41317, 1998Printed on 04/10/2018 Rj Colbert, 71279, 2000 Page 4 of 4Printed on 04/10/2018 Rj Colbert, 75091, 1998no change Normal [facility] Comment on above: Result Comment: Elec tronically Signed By: Colin Shirley MD\.br\Date and Time Signed: 04/17/18 13:15 EDT Inpatient Patient Summaryon 04-17-2018 [facility] Instructions[facility]ERSON INFORMATION Name: RJ COLBERT PHYSICIANS Admitting Physician: Debbi Shirley MDrandolph health Physician: Colin Shirley MD PCP: Murphy WEISS MD Diagnosis: Rectal prolapse Comment: PATIENT EDUCATION INFORMATIONInstructions :Medication Leaflets:Follow up:With: Address: When: Colin Shirley [facility], [address] [place] [address] Business (1) Within 1 to 2 weeks MEDICATION LISTComment: Normal [facility] Main OR PACU I Recordon 03-28 Main OR PACU I Record PACU Phase I Document Type FT Summary Primary Physician: Colin Shirley MD Finalized Date/Time: 04/17/18 14:14:33 Pt. Name: RJ COLBERT Bonnie/Sex: 2000 Male Med Rec #: [id number] Physician: Colin Shirley MD Financial #: [id number] Pt. Type: O Room/Bed: / Admit/Disch: 04/17/18 [...] Signed By: Essie Guzman RN 04/17/18 14:14 [facility] Main OR Preoperative Recordo n 04-17-2018 Main OR Preoperative Record Holding Area Document Type FT Summary Primary Physician: Colin Shirley MD Finalized Date/Time: 04/17/18 09:56:12 Pt. Name: RJ COLBERT /Sex: 2000 Male Med Rec #: [id number] Physician: Colin Shirley MD Financial #: [id number] Pt. Type: O Room/Bed: / Admit/Disch: 04/17/18 [...] 04/17/18 09:56:10 General Comments: munir [address] to hospital, informed dr ojeda, placed at the Finalized By: Viki James RN Document Signatures Signed By: Viki James RN 04/17/18 09:56 [facility] Patient Education - Texton 0 04-17-2018 Patient Education - Text [facility] Coding Summary.on 04-02-2018 Coding Summary. CODING DATE: 018 FINAL [facility] STATUS: Home (Routine DC) PAYOR: Medicaid [...] PROC EAPG STAT DESCRIPTION DOCTOR NAME DATE 66773 132 Sigmoidoscopy, flexible; Colin Shirley MD 03/30/2018 with biopsy, single or multiple 74 Discontinued Out[facility]Patient [facility] ([facility]) Procedure After Administration of Anesthe 92151 Anesthesia for lower Colin Shirley MD 03/30/2018 intestinal endoscopic procedures, endoscope introduced distal to duodenum; not otherwise specified NOTE: The code number assigned matches the documented diagnosis and / or procedure in the patient's chart. However, the narrative phrase printed from the coding software may appear abbreviated, or result in slightly different terminology. Coded By: Sary Little Date Saved: 04/02/2018 04:16 pm [facility] Progress Note-Physicianon Progress Note-Physician Patient: RJ [...] Cardiovascular: Regular rhythm. Neurologic: Alert, Oriented. Plan [place] [employer] Anesthesiologists (ASA) physical status classification: Class II. Anesthetic Preoperative Plan Anesthesia: General. . Anesthetic plan, risks, benefits, and alternatives discussed with the patient and/or family. Communication: face to face with (patient 5 minutes, Patient educated on smoking cesstation). Normal [facility] Comment on above: Result Comment: Elec tronically Signed By: Quincy Ojeda Jr, DO\.br\Date and Time Signed: 04/01/18 07:53 EDT History and Physicalon 03-30 History and Physical Date: 03/10/2018 2:15 PMPatient Name: Rj ColbertAccount #: [id number]: MaleDOB (age): 2000 (17)Provider: BREANNE Bentonmicesar Complaint: Change in Bowel habits Blood in StoolHistory of Present Illness:17 years old -[place] male with multiple psychiatric problems, lives in a [facility], referred to me to be evaluatedfor rectal [...] stool incontinence, stomachPrinted on 03/26/2018 Rj Colbert, 89815, 2000 Page 1 of 4Printed on 03/26/2018 Rj Colbert, 61141, 1998cramps, straining. Denies abdominal pain, abdominal swelling, [...] up blood.Vital Signs:BP(mmHg)Pulse(ppm )Rhythm Weight (lbs/oz) Resp/min Njij015/68 82 Regular 191 / 12 98.3 (F)Physical [...] hemorrhageConstipationP brian: Colonoscopy will be performed at [facility] .Printed on 03/26/2018 Brittaney Coto03, 2000 Page 2 of 4Printed on 03/26/2018 Brittaney Coto03, 2000Risk & Medical Necessity: Diagnosis and management options are Extensive. The amount of data reviewedand/or ordered is Moderate. The level of risk is Moderate.Colin Shirley MD Rj Colbert, 00656, 2000 Page 3 of 4Printed on 03/26/2018 Brittaney Coto03, 1998Printed on 03/26/2018 Brittaney Coto03, 2000 Page 4 of 4Printed on 03/26/2018 Rj Colbert 38994, 2000No change Normal [facility] Comment on above: Result Comment: Elec tronically Signed By: Casper GAUTAM, Colin\.br\Date and Time Signed: 03/30/18 10:52 EDT Inpatient Patient Summaryon 03-30-2018 In[facility] InstructionsPERSON INFORMATION Name: RJ COLBERT PHYSICIANS Admitting Physician: Steve Shirley MDerAttending Physician: Colin Shirley MD PCP: Murphy WEISS MD Diagnosis: Internal hemorrhoids Comment: PATIENT EDUCATION INFORMATIONInstructions :Medication Leaflets:Follow up:With: Address: When: Colin Shirley [facility], [address], [place] [address] Business (1) Within 1 to 2 weeks MEDICATION LISTComment: Normal [facility] Main OR Intraoperative Recor don 03-30-2018 Main OR Intraoperative Record IntraOp Document Type FT Summary Primary Physician: Colin Shirley MD Finalized Date/Time: 03/30/18 11:37:17 Pt. Name: RJ COLBERT /Sex: 2000 Male Med Rec #: [id number] Physician: Colin Shirley MD Financial #: [id number] Pt. Type: O Room/Bed: / Admit/Disch: 03/30/18 09:32:43 - Institution: Case Times FT Entry 1 Patient Times In Room 03/30/18 10:56:00 Out Room 03/30/18 11:13:00 Procedure Times Start 03/30/18 10:59:00 Stop 03/30/18 11:09:00 Anesthesia Times Start 03/30/18 10:56:00 Stop 03/30/18 11:13:00 Last Modified By: Addie Oreilly CST 03/30/18 11:14:43 General Comments: 03/30/2018 Chart opened to review and send charges Marika Pineda TEACHER VISUALLY IMPAIRED Case Attendance FT Entry 1 Entry 2 Entry 3 Case Attendee Rusty Fagan DO, Quincy Miller RN, Tori Capellan CST Role Performed Anesthesiologist of Adjunct Professor - Primary Scrub - Primary Record Time In 03/30/18 10:56:00 03/30/18 10:56:00 03/30/18 10:56:00 Time Out 03/30/18 11:13:00 03/30/18 11:13:00 03/30/18 11:13:00 Procedure COLONOSCOPY(.) COLONOSCOPY(.) COLONOSCOPY(.) Comments Last Modified By: Francy Miller RN, RN, Francy Clinton RN 03/30/18 11:14:48 03/30/18 11:14:48 03/30/18 11:14:48 Entry 4 Entry 5 Case Attendee Casper GAUTAM, Colin [place] Customer Care Agent, Magi Briggs Role Performed Surgeon - Primary [...] Jr, DO, Given Participants Francy Miller RN, Colin Shirley MD [place] Customer Care Agent, Magi Briggs, Tori Boyd CST Time Out Complete 03/30/18 10:57:00 Outcomes Met? [...] and tissue Entry 1 Skin Integrity Intact, [place], Warm, and Skin Abnormality No Dry Outcomes [...] RN Patient Status Stable Skin. Condition Intact, [place], Warm, and Dry Airway Maintenance Oxygen in Use? No Airway Device N/A Outcomes Met? Yes Last Modified By: Francy Miller RN 03/30/18 07:37:17 Post-Care Text: The patient is free from signs and symptoms of injury related to transfer/transport General Comments: Report given to PACU,RN./RICHARDelectron beam operator Administration FT Pre-Care Text: Verifies allergies, [...] 11:14 Addie Oreilly CST 03/30/18 11:37 Normal [facility] Main OR PACU I Recordon Main OR PACU I Record PACU Phase I Document Type FT Summary Primary Physician: Colin Shirley MD Finalized Date/Time: 03/30/18 11:29:28 Pt. Name: RJ COLBERT /Sex: 2000 Male Med Rec #: [id number] Physician: Colin Shirley MD Financial #: [id number] Pt. Type: O Room/Bed: / Admit/Disch: 03/30/18 [...] By: Essie Guzman RN 03/30/18 11:29 Normal [facility] Main OR Preoperative Recordo n 03-30-2018 Main OR Preoperative Record Holding Area Document Type FT Summary Primary Physician: Colin Shirley MD Finalized Date/Time: 03/30/18 10:16:59 Pt. Name: NUNU COLBERTMARGARET SchererO.B./Sex: 2000 Male Med Rec #: [id number] Physician: Colin Shirley MD Financial #: [id number] Pt. Type: O Room/Bed: / Admit/Disch: 03/30/18 [...] No Patient states Yes Comment - Adult [facility]- care provider postop adult Supervision supervision available Case Cancelled in No Holding Area see comments below for reason Last Modified By: Kathleen Gómez RN 03/30/18 09:54:58 General Comments: Pt completed prep at 0540 and remained NPO/KS,RN Finalized By: Kathleen Gómez RN Document Signatures Signed By: Kathleen Gómez RN 03/30/18 10:16 Normal [facility] Patient Education - Texton 0 03-30-2018 Patient Education - Text [facility] Progress Note-Physicianon Progress Note-Physician Patient: RJ [...] hrs) Last Charted Minimum MaximumTemp 36.5 (MAR 30:15) 36.3 (MAR 30:05) 36.5 (MAR 30:15)Heart Rate 72 (MAR 30:30) 67 (MAR 30 11:15) 76 (MAR 30 10:05)Resp Rate 16 (MAR 30:30) 9 (MAR 30 11:20) 20 (MAR 30:05)SBP 122 (MAR 30:25) 109 (MAR 30 11:00) 127 (MAR 30:05)DBP 83 (MAR 30:25) 71 (MAR 30:00) 83 (MAR 30:05)SpO2 99 (MAR 30:30) 97 (MAR 30:) 100 (MAR 30 11:00) Documented vital signs General: Alert and oriented, No acute distress. Respiratory: Lungs are clear to auscultation. Cardiovascular: Normal rate, Regular rhythm. Neurologic: Normal sensory. Review / Management Condition: Stable. Assessment Anesthetic outcome No anesthetic complications noted. Adequate pain relief. TOLERATING PO INTAKE. voiding w/o diff.. No Complaint of nausea and vomiting. Plan Transfer/ Discharge: Condition stable. Normal [facility] Comment on above: Result Comment: Elec tronically Signed By: Quincy Ojeda Jr, DO\alin\Date and Time Signed: 03/30/18 11:55 EDT Vital Signs Date Time Vital Sign Value Performing Clinician Facility 07-14-2024 09:-040 Body height 177.8 cm Benson Weiss MD Work Phone: [facility] 07-14-2024 09:26-0400 Body mass index (BMI) [Ratio] 28.84 kg/m2 Benson Weiss MD Work Phone: [facility] 07-14-2024 09:26-0400 Body temperature 97.5 [degF] Benson Weiss MD Work Phone: [facility] 07-14-2024 09:26-0400 Body weight 91.17 kg Benson Weiss MD Work Phone: [facility] 07-14-2024 09:26-0400 Diastolic blood pressure 70 mm[Hg] Benson Weiss MD Work Phone: [facility] 07-14-2024 09:26-0400 Heart rate 88 /min Benson Weiss MD Work Phone: [facility] 07-14-2024 09:26-0400 Respiratory rate 20 /min Benson Weiss MD Work Phone: [facility] 07-14-2024 09:26-0400 SaO2% (BldA) [Mass fraction] 99 % Benson Weiss MD Work Phone: [facility] 07-14-2024 09:26-0400 Systolic blood pressure 118 mm[Hg] Benson Weiss MD Work Phone: [facility] 01-26-2024 14:24-0400 Body height 177.8 cm Reynold Kuo MD Work Phone: [facility] 01-26-2024 14:24-0400 Body mass index (BMI) [Ratio] 25.75 kg/m2 Reynold Kuo MD Work Phone: [facility] 01-26-2024 14:24-0400 Body weight 81.4 kg Reynold Kuo MD Work Phone: [facility] 03-28-2022 11:11-0400 Body height 180.3 cm Arnold Genao MD Work Phone: 03-28-2022 11:110400 Body weight 90.27 kg Arnold Genao MD Work Phone: 03-28-2022 11:11-0400 Diastolic blood pressure 65 mm[Hg] Arnold Genao MD Work Phone: 03-28-2022 11:11-0400 Heart rate 80 /min Arnold Genao MD Work Phone: 03-28-2022 11:110400 SaO2% (BldA) [Mass fraction] 100 % Arnold Genao MD Work Phone: 03-28-2022 11:110400 Systolic blood pressure 108 mm[Hg] Arnold Genao MD Work Phone: Encounters Encounter Date Encounter Type Care Provider Facility Start: 12-08-2024 End: 12-08-2024 Clinisync Result Encounter Generic External Data Provider [facility] External Department Unsolicited Start: 12-08-2024 End: 12-08-2024 Clinisync Result Encounter Generic External Data Provider [...] Unsolicited Start: 09-09-2024 ambulatory Jean Carlos Boudreaux acility:[facility] Start: 08-18-2024 End: 08-19-2024 Clinisync Result [...] Start: 01-26-2024 End: 01-26-2024 ambulatory REYNOLD KUO [facility] Start: 01-26-2024 End: 01-26-2024 Postop follow up visit related to original px Reynold Kuo MD Work Phone: [facility] Comment on above: Rectal prolapse (Charlee hortensia Dx) Start: 01-10-2024 End: 01-10-2024 Evaluation and management of inpatient JOHN MIGUEL ÁNGEL [facility] Start: 01-09-2024 End: 01-10-2024 Evaluation and management of inpatient BENSON [facility] Start: 01-08-2024 End: 01-08-2024 Emergency department patient visit BENSON WEISS [facility] Start: 01-07-2024 End: 01-07-2024 ambulatory BENSON [...] y Dx) Start: 04-17-2018 End: 04-18-2018 Ambulatory [facility] Facility:[facility] Start: 03-30-2018 End: 03-31-2018 [facility] Facility:[facility] Procedures Date Procedure Procedure Detail Performing Clinician Start: 12-08-2024 ALL CBC WITH AUTO DIFF Generic External Data Provider Start: 11-08-2024 ALL CBC WITH AUTO DIFF [...] Td Vaccines (8 - Td or Tdap) [facility] Start: 01-25-2025 Adult BMI Screening Adult BMI Screen ing [facility] Start: 01-25-2025 Tobacco Screening Tobacco Screening [facility] Start: 01-12-2025 End: 01-12-2025 Patient encounter procedure 01/12/2025 9:30 AM EDT Office Visit [facility] [address] [place] [phone] Benson Weiss MD [address] [place] [phone] [facility] Start: 07-14-2024 End: 07-14-2024 Patient encounter procedure 07/14/2024 9:30 AM EDT Office Visit [facility] [address] [place] [phone] Benson Weiss MD [address] [place] [phone] Arrived [facility] Comment on above: Arrived Start: 06-27-2024 Influenza vaccination [facility] Start: 06-27-2023 COVID-19 Vaccine ( season) COVID-19 Vaccine ( season) [facility] Start: 2017 Urine microalbumin profile DTAP,TDAP,TD (1 - Tdap) Start: 2016 Adult BMI Follow Up Plan Adult BMI Follow Up Plan [facility] Start: 2016 HEPATITIS C SCREENING HEPATITIS C SC REENING Start: 2016 HIV SCREENING HIV SCREENING [facility] Start: 2012 PEDS TO ADULT TRANSI TION ANNUAL ASSESSMENT PEDS TO ADULT TRANSITION ANNUAL ASSESSMENT Start: 2010 Adult depression screening assessment DEPRESSION SCREENING Start: 2010 PEDS TO ADULT TRANSI TION INITIAL DISCUSSION PEDS TO ADULT TRANSITION INITIAL DISCUSSION Start: 08-15-2009 HPV VACCINE (1 - Mal e 2-dose series) HPV VACCINE (1 - Male 2-dose series) Start: 2008 MENINGOCOCCAL B: Consider based on risk (1 of 2 - Risk Bexsero 2-dose series) MENINGOCOCCAL B: Consider based on risk (1 of 2 - Risk Bexsero 2-dose series) Start: 1998 Medicare Annual Well ness (AWV) Medicare Annual Wellness (AWV) [facility] Immunizations Immunization Date Immunization Notes Care Provider Fa cility 12-08-2020 COVID-19, mRNA, LNP- S, PF, 30mcg/0.3mL Dose Reynold Kuo MD Work Phone: [facility] 11-17-2020 COVID-19, mRNA, LNP- S, PF, 30mcg/0.3mL Dose Reynold Kuo MD Work Phone: [facility] 08-31-2020 influenza, injectabl e, quadrivalent, preservative free Reynold Kuo MD Work Phone: [facility] 08-31-2020 influenza virus vacc ine, unspecified formulation Reynold Kuo MD Work Phone: [facility] 08-18-2019 influenza, injectabl e, quadrivalent, preservative free Reynold Kuo MD Work Phone: [facility] 08-05-2019 tetanus toxoid, redu diamond diphtheria toxoid, and acellular pertussis vaccine, adsorbed Reynold Kuo MD Work Phone: [facility] 12-02-2017 tetanus toxoid, redu diamond diphtheria toxoid, and acellular pertussis vaccine, adsorbed Reynold Kuo MD Work Phone: [facility] 08-21-2017 influenza, injectabl e, quadrivalent, preservative free Reynold Kuo MD Work Phone: [facility] 08-28-2016 influenza, injectable,quadrivalent, preservative free, pediatric Reynold Kuo MD Work Phone: [facility] 08-28-2016 meningococcal polysaccharide (groups A, C, Y and W-135) diphtheria toxoid conjugate vaccine (MCV4P) Reynold Kuo MD Work Phone: [facility] 08-16-2015 influenza, seasonal, injectable Reynold Kuo MD Work Phone: [facility] 08-07-2011 tetanus toxoid, redu diamond diphtheria toxoid, and acellular pertussis vaccine, adsorbed Reynold Kuo MD Work Phone: [facility] 08-17-2008 hepatitis A vaccine, pediatric/adolescent dosage, 2 dose schedule Reynold Kuo MD Work Phone: [facility] 02-02-2008 hepatitis A vaccine, pediatric/adolescent dosage, 2 dose schedule Reynold Kuo MD Work Phone: [facility] 02-02-2008 varicella virus vaccine Edwin Kuo MD Work Phone: [facility] 01-18-2005 diphtheria, tetanus toxoids and acellular pertussis vaccine Reynold Kuo MD Work Phone: [facility] 07-18-2004 DTaP-hepatitis B and poliovirus vaccine Reynold Kuo MD Work Phone: [facility] 07-17-2004 measles, mumps and rubella virus vaccine Reynold Kuo MD Work Phone: [facility] 02-08-2003 diphtheria, tetanus toxoids and acellular pertussis vaccine, unspecified formulation Reynold Kuo MD Work Phone: [facility] 02-08-2003 haemophilus influenz ae type b vaccine, conjugate unspecified formulation Reynold Kuo MD Work Phone: [facility] 02-08-2003 hepatitis B vaccine, pediatric or pediatric/adolescent dosage Reynold Kuo MD Work Phone: [facility] 02-08-2003 measles, mumps and rubella virus vaccine Reynold Kuo MD Work Phone: [facility] 02-08-2003 poliovirus vaccine, unspecified formulation Reynold Kuo MD Work Phone: [facility] 02-08-2003 varicella virus vaccine Edwin Kuo MD Work Phone: [facility] 2000 diphtheria, tetanus toxoids and acellular pertussis vaccine, unspecified formulation Reynold Kuo MD Work Phone: [facility] 2000 haemophilus influenz ae type b vaccine, conjugate unspecified formulation Reynold Kuo MD Work Phone: [facility] 2000 poliovirus vaccine, unspecified formulation Reynold Kuo MD Work Phone: [facility] 2000 hepatitis B vaccine, pediatric or pediatric/adolescent dosage Reynold Kuo MD Work Phone: [facility] 2000 hepatitis B vaccine, pediatric or pediatric/adolescent dosage Reynold Kuo MD Work Phone: [facility] Payers Date Payer Category Payer Medicaid [id number] 2023 Self-pay 2021 [place] [id number] 2021-Present [phone] [address] [place] [address] Medicaid [id number] 2018 Medicare MEDICARE MEDICAR E A AND B [id number] 2018-Present [phone] [address] [address] [place] [address] Medicare [id number] 2018 Medicare [id number] 2018 Medicaid [id number] 1.13.693.2.7.9.69 [id number] 1998 Unknown [id number] 2.16.840.1.516673.3.579.2.593 1998 Unknown [id number] 2.16.840.1.932638.3.579.2.593 1998 Unknown [id number] 2.16.840.1.165915.3.579.2.593 1998 Unknown [id number] 2.16.840.1.509295.3.579.2.593 1998 Unknown [id number] 2.16.840.1.337351.3.579.2.593 1998 Unknown [id number] 2.16.840.1.870196.3.579.2.593 1998 Unknown [id number] 2.16.840.1.261652.3.579.2.593 1998 Unknown [id number] 2.16.840.1.256426.3.579.2.593 1998 Unknown [id number] 2.16.840.1.937003.3.579.2.593 1998 Unknown [id number] 2.16.840.1.739938.3.579.2.593 1998 Unknown [id number] 2.16.840.1.563904.3.579.2.593 1998 Unknown [id number] 2.16.840.1.310519.3.579.2.593 1998 Unknown [id number] 2.16.840.1.999754.3.579.2.1286 1998 Unknown [id number] 2.16.840.1.161902.3.579.2.128 1998 Unknown [id number] 2.16.840.1.833776.3.579.2.128 1998 Unknown [id number] 2.16.840.1.016264.3.579.2.128 1998 Unknown [id number] 2.16.840.1.433473.3.579.2.1286 1998 Unknown [id number] 2.16.840.1.945408.3.579.2.1259 1998 Unknown [id number] 2.16.840.1.070330.3.579.2.1259 1959 Medicaid [id number] 1961 Medicare [id number] Social History Date Type Detail Facility Start: 03-01-2015 End: 01-26-2024 Tobacco smoking status NHIS Never smoked tobacco Start: 03-01-2015 End: 01-26-2024 Tobacco use and exposure Smokeless tobacco non-user Start: 03-28-2022 Alcohol intake Current non-dr technical illustrations map inker of alcohol (finding) Start: 2000 Sex Assigned At Not on file [facility] Start: 03-18-2022 End: 03-28-2022 Exposure to SARS-CoV-2 (event) Not sure Start: 01-07-2024 End: 07-14-2024 Alcoholic beverage intake Ex-drinker (finding) [facility] Start: 11-20-2020 End: 07-14-2024 History of Social function [facility] Start: 11-20-2020 End: 07-14-2024 Tobacco use panel [facility] Start: 01-26-2024 Alcohol intake Lifetime non-d juan (finding) [facility] Has the [employer], [employer], [employer], or water [employer] threatened to shut off services in your home in past 12Mo No [employer] [facility] How often to you hav e a drink containing alcohol? Never [facility] How many standard drinks containing alcohol do you have on a typical day? Patient does not drink [facility] Goals Date Patient Goal Desired Activity /State Personal health goal Comment on above: Formatting of this n ote might be different from the original. Evaluation of progress towards goal: Soren Conner, back to [facility]. Clinical Notes 06-29-2021 to 07-14-2024 Benson Weiss [...] schizophrenia. History of MR and lives in [facility], accompanied by caregiver. Patient doing well today. [...] and continue. documented in this encounter [facility] 01-26-2024 History of Presen t illness Narrative Images from the original note were not included. [facility] [address] [address] Patient: Rj Colbert Date of : 2000 Encounter Date: 01/26/2024 History of Present Illness: The patient is 23 y.o. male and presents for postoperative follow-up s/p repair of rectal prolapse. Patient presented with incarcerated prolapse. He underwent Altemeier procedure. Patient now follows up. Patient is accompanied by gag writer. He is doing well. He denies any [...] Reynold Kuo MD documented in this encounter [facility] 03-28-2022 Miscellaneous Notes Spoke with the pharmacist and she states that she does not provide food items. She will speak with the nurse at the [facility], phone , any pharmacist to clarify about carbonate? CALM is [facility] able to order as food item? Please call to discuss. documented in this encounter 03-28-2022 Miscellaneous Notes Opened in error documented in this encounter 03-28-2022 Miscellaneous Notes Addended by: ARNOLD GENAO on: 03/28/2022 03:11 PM Modules accepted: Orders Addended by: CHARLEY MCCLELLAND on: 03/28/2022 02:47 PM Modules accepted: Orders documented in this encounter 03-28-2022 Note HNO ID: [id number] Author: Arnold Genao MD Service: ? Author Type: Physician Type: Progress Notes Filed: 03/28/2022 11:58 AM Note Text: COLORECTAL SURGERY March 28, 2022 Rj Colbert 21 year old Chief Complaint: hematochezia History of Present Illness: Rj Colbert is a 21 year old male presents to the office for evaluation of hematochezia. Last seen in the office on 11/16/21 with Cristal Nava CHAIRMAN AND CHIEF EXECUTIVE OFFICER for follow up visit after he [...] exam Anorectal: External exam reveals: see below Faculty Support Coordinator present: yes Assessment Assessment and Plan: Rj Colbert is a 21 year old male with straining and occasional rectal bleeding. Today, we talked about adding a magnesium supplement CALM to his regimen to decrease straining. I am of the opinion that more surgery is not the best option at this time. Arnold Genao MD Colorectal Surgery [facility] 03-28-2022 Nurse Note Calm education given for constipation. What is the reason for your visit today? Established patient presents for hematochezia. Who is your referring physician? Are you having poor oral intake? NO Have you had unintentional weight loss of 15 lbs/7 Kg in the last 3-6 months? NO Bowels: regular Wound: None Temperature: No Drains: No documented in this encounter 03-28-2022 History of Presen t illness Narrative COLORECTAL SURGERY March 28, 2022 Rj Colebrt 21 year old Chief Complaint: hematochezia History of Present Illness: Rj Colbert is a 21 year old male presents to the office for evaluation of hematochezia. Last seen in the office on 11/16/21 with Cristal Nava CHAIRMAN AND CHIEF EXECUTIVE OFFICER for follow up visit after he [...] exam Anorectal: External exam reveals: see below Faculty Support Coordinator present: yes Assessment Assessment and Plan: Rj Colbert is a 21 year old male with straining and occasional rectal bleeding. Today, we talked about adding a magnesium supplement CALM to his regimen to decrease straining. I am of the opinion that more surgery is not the best option at this time. Arnold Genao MD Colorectal Surgery documented in this encounter 11-16-2021 Note HNO ID: [id number] Author: Cristal Nava APRN.[employer] Service: ? Author Type: Nurse Practitioner Type: [...] results with patient and POA. Cristal Nava APRN.[facility] Colorectal Surgery [facility] 10-17-2021 Note HNO ID: [id number] Author: Hunter Massey APRN.ENVIRONMENTAL COORDINATOR Service: Anesthesiology Author Type: Nurse Executive Director Of Nursing Type: Anesthesia Procedure Notes Filed: 10/17/2021 8:55 AM Note Text: ANESTHESIOLOGY PROCEDURE NOTE Airway General Information Procedure Start Time/Medication Administration: 10/17/2021 8:49 AM Patient location during procedure: OR Timeout Performed Pre-procedure: timeout performed Consent Obtained: Yes Patient identity confirmed: arm band, care executive team leader and patient Staffing Anesthesiologist: Michael Martínez MD ENVIRONMENTAL COORDINATOR: Hunter Massey APRN.ENVIRONMENTAL COORDINATOR Performed by: SAMAN Indications and Patient Condition [...] October 17, 2021 TIME: 8:54 AM CSN: [id number] [facility] 08-31-2021 Note HNO ID: [id number] Author: Arnold Genao MD Service: ? Author [...] Anorectal: External exam reveals : see below Faculty Support Coordinator present: yes Assessment Assessment and Plan: Rj Colbert is a 21 year old male who is doing relatively well after his recent rubber band ligation. He still has some rectal bleeding and it is difficult to assess the exact amount. If the bleeding persists we will consider internal hemorrhoidectomy. Arnold Genao MD Colorectal Surgery [facility] 07-12-2021 Note HNO ID: [id number] Author: Shanthi Chapman APRN.ENVIRONMENTAL COORDINATOR Service: Anesthesiology Author Type: Nurse Executive Director Of Nursing Type: Anesthesia Procedure Notes Filed: 07/12/2021 10:54 AM Note Text: ANESTHESIOLOGY PROCEDURE NOTE Airway General Information Procedure Start Time/Medication Administration: 07/12/2021 10:48 AM Patient location during procedure: OR Patient identity confirmed: arm band, care executive team leader and patient Staffing ENVIRONMENTAL COORDINATOR: Shanthi Chapman APRN.ENVIRONMENTAL COORDINATOR Performed by: ENVIRONMENTAL COORDINATOR Indications and Patient Condition Preoxygenated: yes Patient [...] July 12, 2021 TIME: 10:53 AM CSN: [id number] [facility] 06-29-2021 Note HNO ID: [id number] Author: Arnold Genao MD Service: ? Author Type: Physician Type: Progress Notes Filed: 06/29/2021 1:29 PM Note Text: COLORECTAL SURGERY June 29, 2021 Rj Colbert is a 21 year old male presents with complaint of rectal bleeding Previously seen 2018 for solitary rectal ulcer syndrome Patient is MR/DD, schizophrenia Pt returns to clinic today with a caregiver from his [facility]. They relate that he is having around [...] (222 lb 4.8 oz) BMI 31.90 kg/m? Faculty Support Coordinator present: Yes Rj Colbert is a 21 year old male presents with complaint of rectal bleeding with prolapsing Grade 3 internal hemorrhoids on exam. Our plan is to perform an EUA and rubber band ligation of internal hemorrhoids at the [facility]. Medical Decision Making: Arnold Genao MD Colorectal Surgery [facility] Evaluation note Diagnosis Hematochezia- Primary Blood in stool [facility] Seasonal allergic rhinitis due to pollen- Primary Chronic constipation Unspecified constipation Chronic schizophrenia (CMS/HCC) Unspecified schizophrenia, chronic condition documented in this encounter [facility]* Diagnosis Rectal prolapse- Primary [facility] Summary Purpose Family History No Family History Records FoundNo Family History Records FoundNo Family History Records FoundNo Family History Records FoundNo Family History Records FoundNo Family History Records FoundNo Family History Records FoundNo Family History Records Found Advance Directives Documents on File Type Date Recorded 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 Advance Directive(s) 07/09/2021 9:04 AM [...] section and content) DATE CREATED AUTHOR 05/01/2018 [facility] DATE CREATED AUTHOR AUTHOR'S ORGANIZ ATION 10/31/2021 [facility] DATE CREATED AUTHOR AUTHOR'S ORGANIZ ATION 03/29/2022 [facility] DATE CREATED AUTHOR AUTHOR'S ORGANIZ ATION 04/04/2023 [facility] DATE CREATED AUTHOR AUTHOR'S ORGANIZ ATION 01/10/2024 [facility] DATE CREATED AUTHOR AUTHOR'S ORGANIZ ATION 01/27/2024 [facility] DATE CREATED AUTHOR AUTHOR'S ORGANIZ ATION 07/16/2024 [facility] d[facility] Specialists [facility] DATE CREATED AUTHOR AUTHOR'S ORGANIZ ATION 09/11/2024 [facility] Source Comments (unrecognize d section and content) In the event this informatio n is protected by the Federal Confidentiality of Alcohol and Drug Abuse Patient Records regulations: The Federal rules restrict any use of the information to criminally investigate or prosecute any alcohol or drug abuse patient.In the event this information is protected by the Federal Confidentiality of Alcohol and Drug Abuse Patient Records regulations: The Federal rules restrict any use of the information to criminally investigate or prosecute any alcohol or drug abuse patient.In the event this information is protected by the Federal Confidentiality of Alcohol and Drug Abuse Patient Records regulations: The Federal rules restrict any use of the information to criminally investigate or prosecute any alcohol or drug abuse patient. Reason for Visit (unrecogniz ed section and content) Reason Comments Established Patient Follow-Up Rectal Bleeding Reason Comments Opened In Error no documentation-err or Reason Comments Medication Problem magnesium carbonate? vs? CALM Reason Comments Follow-up 6m f/up Reason Comments Post-op 2 week Care Teams (unrecognized sec tion and content) Adjuster And Inspector Relationship Specialty Start Date End Date Benson Weiss MD [address] [place] [phone] PCP - General Family Medicine 01/07/24 Adjuster And Inspector Relationship Specialty Start Date End Date Benson Weiss MD [address] [place] [address] PCP - General Family Medicine 01/07/24 Adjuster And Inspector Relationship Specialty Start Date End Date Benson Weiss MD [address] [place] [address] PCP - General Family Medicine 01/07/24 Adjuster And Inspector Relationship Specialty Start Date End Date Benson Wiess MD [address] [place] [address] PCP - General Family Medicine 01/07/24 Adjuster And Inspector Relationship Specialty Start Date End Date Benson Weiss MD [address] [place] [address] PCP - General Family Medicine 01/07/24 Adjuster And Inspector Relationship Specialty Start Date End Date Benson Weiss MD [address] [place] [address] PCP - General Family Medicine 01/07/24 Benson Weiss MD [address] [place] [address] PCP - ACO Reach 12/03/24 Adjuster And Inspector Relationship Specialty Start Date End Date Benson Weiss MD [address] [id number] PCP - General Family Medicine 01/08/24 FOR [...] BE BASED ON THE PRIMARY CLINICAL RECORDS. [facility]. provides no warranty or guarantee of the accuracy or completeness of information in this document.
[2025-01-04 15:39] LABS: Basophils Percent Auto 0.5 % (0.2-2.0); Eosinophils Percent Auto 0.7 % (0.9-7.0); Hematocrit 40.7 % (42.0-54.0); Hemoglobin 11.5 g/dL (14.0-18.0); Immature Granulocytes Abs Auto 0.01 10^3/uL (0.00-0.03); Immature Granulocytes Pct Auto 0.2 % (0.0-0.5); Lymphocytes Absolute Auto 1.2 10^3/uL (1.2-3.8); Lymphocytes Percent Auto 20.4 % (20.5-60.0); Mean Corpuscular HGB Conc 28.3 g/dL (29.9-35.2); Mean Corpuscular Hemoglobin 19.5 pg (25.9-34.0); Mean Corpuscular Volume 69.1 fL (80.0-94.0); Mean Platelet Volume 10.3 fL (9.5-13.5); Monocytes Absolute Auto 0.8 10^3/uL (0.3-0.8); Monocytes Percent Auto 12.7 % (1.7-12.0); Neutrophils Percent Auto 65.5 % (43.0-75.0); Platelet Count 256 10^3/uL (150-450); Red Cell Distribution Width 20.9 % (11.0-15.0); White Blood Count 6.1 10^3/uL (4.0-11.0)
[2025-01-04 16:02] LABS: Red Blood Count 5.89 10^6/uL (4.70-6.10)
== END 2025-01-04 15:02 | disposition home or self-care (01) ==
LOC: LAB 15:03
PROVIDERS: PCP Family Medicine; Visit Provider Registered Nurse Psychiatric/Mental Health
DX: Z79.899 Other long term (current) drug therapy (principal)
CPT/HCPCS: 36415; 85025

== ENCOUNTER 2025-02-02 15:43 | Outpatient (OUT) | payer MEDICARE, MEDICAID, SELFPAY ==
[2025-02-02 16:18] LABS: Basophils Absolute Auto 0.1 10^3/uL (0.0-0.1); Basophils Percent Auto 0.7 % (0.2-2.0); Eosinophils Absolute Auto 0.1 10^3/uL (0.0-0.7); Eosinophils Percent Auto 1.9 % (0.9-7.0); Hematocrit 42.1 % (42.0-54.0); Immature Granulocytes Abs Auto 0.01 10^3/uL (0.00-0.03); Immature Granulocytes Pct Auto 0.1 % (0.0-0.5); Lymphocytes Absolute Auto 1.5 10^3/uL (1.2-3.8); Lymphocytes Percent Auto 21.4 % (20.5-60.0); Mean Corpuscular HGB Conc 28.5 g/dL (29.9-35.2); Mean Corpuscular Hemoglobin 19.8 pg (25.9-34.0); Mean Corpuscular Volume 69.4 fL (80.0-94.0); Monocytes Absolute Auto 0.7 10^3/uL (0.3-0.8); Monocytes Percent Auto 9.5 % (1.7-12.0); Neutrophils Absolute Auto 4.6 10^3/uL (1.4-6.5); Neutrophils Percent Auto 66.4 % (43.0-75.0); Platelet Count 274 10^3/uL (150-450); Red Cell Distribution Width 21.2 % (11.0-15.0); White Blood Count 6.9 10^3/uL (4.0-11.0)
[2025-02-02 16:51] LABS: Red Blood Count 6.07 10^6/uL (4.70-6.10)
== END 2025-02-02 15:44 | disposition home or self-care (01) ==
LOC: LAB 15:45
PROVIDERS: PCP Family Medicine; Visit Provider Registered Nurse Psychiatric/Mental Health
DX: Z79.899 Other long term (current) drug therapy (principal)
CPT/HCPCS: 36415; 85025

== ENCOUNTER 2025-03-01 15:26 | Outpatient (OUT) | payer MEDICARE, MEDICAID, SELFPAY ==
[2025-03-01 15:58] LABS: Basophils Percent Auto 0.7 % (0.2-2.0); Eosinophils Absolute Auto 0.2 10^3/uL (0.0-0.7); Eosinophils Percent Auto 3.3 % (0.9-7.0); Hematocrit 43.3 % (42.0-54.0); Hemoglobin 12.4 g/dL (14.0-18.0); Immature Granulocytes Abs Auto 0.01 10^3/uL (0.00-0.03); Immature Granulocytes Pct Auto 0.2 % (0.0-0.5); Lymphocytes Absolute Auto 1.6 10^3/uL (1.2-3.8); Lymphocytes Percent Auto 28.8 % (20.5-60.0); Mean Corpuscular HGB Conc 28.6 g/dL (29.9-35.2); Mean Corpuscular Hemoglobin 20.2 pg (25.9-34.0); Mean Corpuscular Volume 70.4 fL (80.0-94.0); Mean Platelet Volume 9.7 fL (9.5-13.5); Monocytes Absolute Auto 0.5 10^3/uL (0.3-0.8); Monocytes Percent Auto 8.9 % (1.7-12.0); Neutrophils Absolute Auto 3.1 10^3/uL (1.4-6.5); Neutrophils Percent Auto 58.1 % (43.0-75.0); Platelet Count 295 10^3/uL (150-450); Red Cell Distribution Width 20.8 % (11.0-15.0); White Blood Count 5.4 10^3/uL (4.0-11.0)
[2025-03-01 16:29] LABS: Red Blood Count 6.15 10^6/uL (4.70-6.10)
== END 2025-03-01 15:27 | disposition home or self-care (01) ==
PROVIDERS: PCP Family Medicine
DX: Z79.899 Other long term (current) drug therapy (principal)
CPT/HCPCS: 36415; 85025

== ENCOUNTER 2025-03-30 15:35 | Outpatient (OUT) | payer MEDICARE, MEDICAID, SELFPAY ==
--- OUTSIDE RECORDS SUMMARY | 2025-03-17 14:10 | XMS_ITS | Encounter Summary ---
Author Organization [facility] Address [id number] [address] [place] [address] Care Team Providers Care Exhibit Artist Name Role Phone Benson Yun MD Primary Care Provider [phone] Encounter Details Date Type Department Care Team (Late st Contact Info) Description 03/17/2025 2:10 PM EDT Support Visit [facility] - Pre Admit [address] [place] [phone] Social History Tobacco Use Types Packs/Day Years Used Date Smoking Tobacco: Never Smokeless Tobacco: Never Alcohol Use Standard Drinks/Week Comments Never 0 (1 standard drink = 0.6 oz pur e alcohol) [facility] Utilities Answer Date Recorded In the past 12 months has e [employer], gas, oil, or water company threatened to shut off services in your home? No 01/09/2024 AUDIT-C Answer Date Recorded Q1: How often do you have a drink containing alcohol? Never 01/09/2024 Q2: How many drinks containi ng alcohol do you have on a typical day when you are drinking? Patient does not drink Q3: How often do you have si x or more drinks on one occasion? Never 01/09/2024 PRAPARE - Transportation Answer Date Re corded In the past 12 months, has l ack of transportation kept you from medical appointments or from getting medications? No 12/25 In the past 12 months, has l ack of transportation kept you from meetings, work, or from getting things needed for daily living? No 01/09/2024 Housing Instability Answer Date Recorde d Are you worried or concerned that in the next two months you may not have stable housing that you own, rent or stay in as a part of a household? No 01/09/2024 Childcare Answer Date Recorded Childcare Unknown 04/01/2019 Employment Answer Date Recorded Employment Unknown 04/01/2019 Hunger Screening Answer Date Recorded Within the past 12 months we worried whether our food would run out before we got money to buy more. Never True 01/09/2024 Within the past 12 months th e food we bought just didn't last and we didn't have money to get more. Never True 01/09/2024 Purpose - Life Answer Date Recorded Purpose and direction in life Unknown Sex and Gender Information Value Date Recorded Sex Assigned at Not on file Legal Sex Male 11:54 AM EDT Gender Identity Not on file Sexual Orientation Not on file documented as of this encounter Miscellaneous Notes * Perioperative Nursing Note - Danielle Tsang RN - 03/17/2025 2:10 PM EDT Preoperative Education Checklist- General Surgery date: 03/24/25 Surgery time: 0900 Arrival time: 0700 1. Bring a photo ID and your insurance card with you the day of surgery. You will check in at the main lobby of the [facility]- registration desk is straight ahead as soon as you walk in. Tell them you are here for surgery. 2. If you have a Living Will/Durable Power of Aquarium Specialist for Health Care that is not on file here, please bring a copy the day of surgery. 3. Please shower/bathe the night before surgery with the provided soap or wipes. Do not shower the morning of surgery- you will do use wipes when you arrive here at the hospital before getting into your surgical gown. Do not shave the area of your procedure for 2 days prior to your surgery. 4. NO powder, lotion, perfume/cologne, aftershave, make-up, deodorant, or hair products after you have bathed. 5. NO nail maldivian/acrylic on at least one finger. If you are having a hand, wrist or foot surgery then all nail maldivian and artificial/acrylic nails must be removed from that hand or foot. 6. Avoid ALL Aspirin and non-steroidal anti-inflammatory drugs and certain vitamins (Ibuprofen, Advil, Aleve, Excedrin, Meloxicam, Celebrex, fish/krill oil, etc.) for 7 days prior to surgery as instructed by your surgeon and/or your prescribing doctor. Tylenol IS ALLOWED. If you are on Ticlid, Xarelto, Eliquis, Pradaxa, Plavix or Coumadin, please check with your prescribing doctor for instructions for when to stop them. 7. If you use an inhaler, continue to use it routinely. 8. Nothing to eat or drink (not even water, gum, mints, or hard candy!) AFTER midnight prior to your surgery. 9. Take only medications that you are instructed to on the morning of surgery with a TINY SIP OF WATER. 10. Choose a responsible adult that will be able to drive you home when you are discharged from your hospital stay for your surgery and can stay with you in your home for 24 hours after your procedure. You must NOT drive any vehicle or operate any machinery for 24 hours after surgery. 11. When you dress for your appointment, please wear loose fitting clothing that is appropriate to accommodate your surgical area procedure. BRING WITH YOU ANY DEVICES YOU MAY NEED: DUDLEY hose, ice machine, sling/swath, brace or special shoe, oversized zip-up or button up shirt, CPAP machine if staying overnight. 12. Do NOT wear jewelry, watches, or any piercings or metal for surgery- leave these valuables and money at home. 13. Do NOT wear contact lenses for surgery- glasses are okay if needed. 14. The anesthesiologist will talk with you the day of surgery and will ask you to sign a Consent Form. 15. Refrain from smoking or any type of tobacco use for at least 8 hours and marijuana for 24 hoursprior to arrival for your surgery. 16. Notify your surgeon if you develop any illness before your surgery. 17. If you are staying overnight, please DO NOT BRING your home medications with you. 18. If you have any questions prior to surgery, please call the Preadmission Testing office at [phone], Mon.-Fri. 7 a.m.-3 p.m. Leave a voicemail if needed. Pre-Surgery Instructions: Medication Instructions acetaminophen (TYLENOL EXTRA STRENGTH) 500 mg tablet Stop taking 0 days prior to procedure benztropine (COGENTIN) 2 mg tablet Stop taking 0 days prior to procedure clonazePAM (KlonoPIN) 0.5 mg tablet Stop taking 0 days prior to procedure cloZAPine (CLOZARIL) 100 mg tablet Stop taking 0 days prior to procedure cloZAPine (CLOZARIL) 200 mg tablet Stop taking 0 days prior to procedure docusate sodium (COLACE) 100 mg capsule Stop taking 0 days prior to procedure FLUoxetine (PROzac) 40 MG capsule Stop taking 0 days prior to procedure haloperidol (HALDOL) 10 mg tablet Stop taking 0 days prior to procedure ibuprofen (MOTRIN) 800 mg tablet Stop taking 1 week prior to procedure loratadine (CLARITIN) 10 mg tablet Stop taking 0 days prior to procedure polycarbophil (FIBERCON) 625 mg tablet Stop taking 0 days prior to procedure polyethylene glycol (GLYCOLAX) 17 gram packet Stop taking 0 days prior to procedure risperiDONE (RisperDAL) 1 mg tablet Stop taking 0 days prior to procedure documented in this encounter Plan of Treatment Upcoming Encounters Date Type Department Care Team (Latest Contact Info) Description 04/26/2025 11:30 AM EDT Office Visit [facility] General Surgery [address] [place] [address] Laila Gonzalez, TIRE ASSEMBLER-MARKETING COMMUNICATIONS ASSISTANT [address] [place], [place] [phone] 04/26/2025 4:20 PM EDT Support Visit [facility] - Pre Admit [address] [place] [phone] 05/02/2025 7:30 AM EDT Hospital Encounter [facility] - Surgery [address] [place] [phone] Gold Malloy DO [address] [place] [address] 05/02/2025 7:30 AM EDT - 05/02/2025 8:00 AM EDT Surgery [facility] - Surgery [address] [place] [phone] Gold Malloy, [address] [place], [place] [id number] COLONOSCOPY DIAGNOSTIC / SCREENING [54410 (CPT )] Scheduled Procedures Name Priority Associated Diagnoses Date/Ti me COLONOSCOPY DIAGNOSTIC / SCREENING rectal bleeding-poor prep with first attempt 05/02/2025 7:30 AM EDT documented as of this encounter Goals Goal Patient Goal Type Associated Problems Recent Progress Patient-Stated? Author home General Yes Stefania Armijo, RN Note: Evaluation of progress towards goal: Soren Conner, states back to half-way. documented as of this encounter Visit Diagnoses Not on filedocumented in this encounter Care Teams Exhibit Artist Relationship Specialty Start Date End Date Benson Yun MD [address] [place] [address] PCP - General Family Medicine 03/14/25 documented as of this encounter
--- OUTSIDE RECORDS SUMMARY | 2025-03-24 06:40 | XMS_ITS | Encounter Summary ---
Author Organization [facility] Address [id number] [address] [place] [address] Care Team Providers Care Coat Check Attendant Name Role Phone Benson Yun MD Primary Care Provider [phone] Reason for Referral * Misc (Routine) - Authorized Specialty Diagnoses / Procedures Referred By Contac t Referred To Contact Procedures Discharge Follow-Up - Specify Details in Comments Gold Malloy DO [address] [place] [address] Phone: tel: fax: Referral ID Status Reason Start Date Expiration Date V isits Requested Visits Authorized [id number] Authorized 03/24/2025 03/24/2026 1 1 * Misc (Routine) - Authorized Specialty Diagnoses / Procedures Referred By Contac t Referred To Contact Diagnoses Proctitis Rectal bleeding Procedures What to Expect after Endoscopy Gold Malloy DO [address] [place] [address] Phone: tel: fax: Referral ID Status Reason Start Date Expiration Date V isits Requested Visits Authorized [id number] Authorized 03/24/2025 03/24/2026 1 1 Reason for Visit * Auth/Cert Specialty Diagnoses / Procedures Referred By Contac t Referred To Contact Diagnoses rectal bleeding Procedures CA COLONOSCOPY FLX DX W/COLLJ SPEC WHEN PFRMD COLONOSCOPY DIAGNOSTIC / SCREENING Gold Malloy DO [address] [place] [address] Phone: tel: fax: Referral ID Status Reason Start Date Expiration Date Visits Re quested Visits Authorized [id number] Encounter Details Date Type Department Care Team (Latest Contact Info) Description 03/24/2025 6:40 AM EDT - 03/24/2025 10:27 AM EDT Hospital Encounter [facility] - Surgery [address] [place] [id number] Gold Malloy DO [address] [place] [address] Proctitis (Primary Dx); Rectal bleeding Discharge Disposition: Home Social History Tobacco Use Types Packs/Day Years Used Date Smoking Tobacco: Never Smokeless Tobacco: Never Alcohol Use Standard Drinks/Week Comments Never 0 (1 standard drink = 0.6 oz pur e alcohol) [facility] Utilities Answer Date Recorded In the past 12 months has [employer], gas, oil, or water [employer] threatened to shut off services in your [...] on file documented as of this encounter Last Filed Vital Signs Vital Sign Reading Time Taken Comments Blood Pressure 119/81 03/24/2025 10:10 AM EDT Pulse 76 03/24/2025 10:10 AM EDT Temperature 36.3 C (97.3 F) 03/24/2025 9:00 AM EDT Respiratory Rate 14 03/24/2025 10:10 AM EDT Oxygen Saturation 100% 03/24/2025 9:55 AM EDT Inhaled Oxygen Concentration - - Weight 95.3 kg (210 lb) 03/24/2025 9:00 AM EDT Height 177.8 cm (5' 10 ) 03/24/2025 9:00 AM EDT Body Mass Index 30.13 03/24/2025 9:00 AM EDT documented in this encounter Discharge Instructions * Discharge Instructions* Michelle De La Vega RN - 03/24/2025 9:55 AM EDT POST LOWER ENDOSCOPY INSTRUCTIONS Normal expectations after this procedure include: Abnormal discomfort due to the air put in during the examination, and this will not last long. You may notice a small amount of blood in your first bowel movements if a biopsy or polyp was taken. It is rare that you will experience any serious side effects from this procedure. Over the next 24 hours observe for any of the following and notify your physician if they develop. Increase in rectal bleeding or black tarry stools Temperature over 100 ?? F. Abdominal discomfort that continues or increases Persistent vomiting If Soreness develops at your intravenous site, Apply warm, moist compresses for 20 minutes, 4 timesa day. If there is no improvement after 24 hours, please call your physician. GENERAL ACTIVITY You have been given sedative medications. Normal responses to these medications include drowsiness,altered perception, or forgetfulness. For the Next 24 hours: Do not drive, work, or operate machinery Do not consume alcohol, tranquilizers, or sleeping medications unless advised by your physician. Do not make important personal or business decisions Any questions regarding your care, please contact [facility] [phone] documented in this encounter Medications at Time of Discharge acetaminophen (TYLENOL EXTRA STRENGTH) 500 mg tablet Take 2 tablets (1,000 mg total) by mouth every 6 (six) hours as needed for pain. 30 tablet 01/10/2024 benztropine (COGENTIN) 2 mg tablet Take 1 tablet (2 mg total) by mouth in the morning and 1 tablet (2 mg total) before bedtime. clonazePAM (KlonoPIN) 0.5 mg tablet Take 1 tablet (0.5 mg total) by mouth in the morning and 1 tablet (0.5 mg total) at noon and 1 tablet (0.5 mg total) before bedtime. cloZAPine (CLOZARIL) 100 mg tablet Take 1 tablet (100 mg total) by mouth in the morning and 1 tablet (100 mg total) at noon and 1 tablet (100 mg total) before bedtime. 01/04/2025 cloZAPine (CLOZARIL) 200 mg tablet Take 1.5 tablets (300 mg total) by mouth nightly. docusate sodium (COLACE) 100 mg capsule Take 1 capsule (100 mg total) by mouth in the morning. FLUoxetine (PROzac) 40 MG capsule Take 1 capsule (40 mg total) by mouth in the morning and 1 capsule (40 mg total) before bedtime. haloperidol (HALDOL) 10 mg tablet Take 1 tablet (10 mg total) by mouth in the morning and 1 tablet (10 mg total) before bedtime. ibuprofen (MOTRIN) 800 mg tablet Take 1 tablet (800 mg total) by mouth every 8 (eight) hours as needed for pain. 30 tablet 01/16/2023 polycarbophil (FIBERCON) 625 mg tablet Take 1 tablet (625 mg total) by mouth in the morning and 1 tablet (625 mg total) before bedtime. polyethylene glycol (GLYCOLAX) 17 gram packetIndications: Chronic constipation Take 17 g by mouth 2 (two) times a day as needed (1-2 times daily as needed). 60 packet 1 01/07/2025 risperiDONE (RisperDAL) 1 mg tablet Take 1 tablet (1 mg total) by mouth in the morning and 1 tablet (1 mg total) before bedtime. hydrocortisone-pra moxine (PROCTOFOAM-HS) rectal foamIndications:Pr octitis Insert 1 applicator into the rectum in the morning and 1 applicator before bedtime. 10 g 03/24/2025 loratadine (CLARITIN) 10 mg tablet Take 1 tablet (10 mg total) by mouth in the morning. documented as of this encounter H&P Notes * Gold Malloy DO - 03/24/2025 8:37 AM EDT HISTORY AND PHYSICAL INTERVAL NOTE: Rj Gonzales 2000 [id number] H&P reviewed. The patient was examined and there are no changes to the H&P. Gold Malloy DO Source Note - Laila Gonzalez APRN-RESIN COATER - 03/14/2025 11:30 AM EDT Images from the original note were not included. Chief Complaint: Rectal bleeding History of Present Illness Rj Gonzales is a 24 y.o. male who presents to the office today for rectal bleeding. He lives in [facility] and staff member is present with him. Symptoms started 1 month ago. He reports bright red blood on the toilet paper and in the toilet bowl. He has chronic constipation and tends to strain and push a lot. Staff member with him states he will grunt in the bathroom. Feels like he has to have a bowel movement but can not go. He admits that he could drink more water daily. He does like to drink crystal light. No abdominal or rectal pain. He has a history of hemorrhoids and severe rectal prolapse with perineal rectosigmoidectomy and coloanal anastomosis 12/2023. He does point in between his buttocks saying when he sits down he tears something there and this iswhat bleeds. Nothing visible on physical exam. Interval update 03/14/2025: Patient continues to struggle with constipation and rectal bleeding. He is taking MiraLax once daily. He states he constantly feels like he has to have a bowel movement, but when he goes to the bathroom nothing comes out. He denies any tissue prolapse. MEJIA completed at last appointment unrevealing.Would like to proceed with colonoscopy. Review of Systems Constitutional: Negative for fever and unexpected weight change. HENT: Negative for trouble swallowing. Respiratory: Negative for shortness of breath. Cardiovascular: Negative for chest pain. Gastrointestinal: Positive for constipation and blood in stool. Negative for abdominal pain, diarrhea and rectal pain. Genitourinary: Negative for dysuria and difficulty urinating. Musculoskeletal: Negative for gait problem. Skin: Negative for rash and wound. Neurological: Negative for dizziness, weakness and light-headedness. Hematological: Does not bruise/bleed easily. Psychiatric/Behavioral: Negative for confusion. Past Medical History: Diagnosis Date Anxiety Cognitive impairment Panic disorder Schizophrenia (CMS-HCC) Past Surgical History: Procedure Laterality Date ABDOMINAL SURGERY RECTOSIGMOIDECTOMY PERINEAL N/A 01/09/2024 Performed by Yessenia Silva MD at [facility] No Known Allergies Current Outpatient Medications: acetaminophen (TYLENOL EXTRA STRENGTH) 500 mg tablet, Take 2 tablets (1,000 mg total) by mouth every 6 (six) hours as needed for pain., Disp: 30 tablet, Rfl: 0 benztropine (COGENTIN) 2 mg tablet, Take 1 tablet (2 mg total) by mouth in the morning and 1 tablet(2 mg total) before bedtime., Disp: , Rfl: clonazePAM (KlonoPIN) 0.5 mg tablet, Take 1 tablet (0.5 mg total) by mouth in the morning and 1 tablet (0.5 mg total) at noon and 1 tablet (0.5 mg total) before bedtime., Disp: , Rfl: cloZAPine (CLOZARIL) 100 mg tablet, Take 1 tablet (100 mg total) by mouth in the morning and 1 tablet (100 mg total) at noon and 1 tablet (100 mg total) before bedtime., Disp: , Rfl: cloZAPine (CLOZARIL) 200 mg tablet, Take 1.5 tablets (300 mg total) by mouth nightly., Disp: , Rfl: docusate sodium (COLACE) 100 mg capsule, Take 1 capsule (100 mg total) by mouth in the morning., Disp: , Rfl: FLUoxetine (PROzac) 40 MG capsule, Take 1 capsule (40 mg total) by mouth in the morning and 1 capsule (40 mg total) before bedtime., Disp: , Rfl: haloperidol (HALDOL) 10 mg tablet, Take 1 tablet (10 mg total) by mouth in the morning and 1 tablet(10 mg total) before bedtime., Disp: , Rfl: ibuprofen (MOTRIN) 800 mg tablet, Take 1 tablet (800 mg total) by mouth every 8 (eight) hours as needed for pain., Disp: 30 tablet, Rfl: 0 loratadine (CLARITIN) 10 mg tablet, Take 1 tablet (10 mg total) by mouth in the morning., Disp: , Rfl: polycarbophil (FIBERCON) 625 mg tablet, Take 1 tablet (625 mg total) by mouth in the morning and 1 tablet (625 mg total) before bedtime., Disp: , Rfl: polyethylene glycol (GLYCOLAX) 17 gram packet, Take 17 g by mouth 2 (two) times a day as needed (1-2 times daily as needed)., Disp: 60 packet, Rfl: 1 risperiDONE (RisperDAL) 1 mg tablet, Take 1 tablet (1 mg total) by mouth in the morning and 1 tablet (1 mg total) before bedtime., Disp: , Rfl: peg 3350-sod sulf,hquv-blt-bdc 178.7-7.3-0.5 gram recon soln, Take 1 kit by mouth in the morning for 1 dose. Please see instructional sheet given by physicians office., Disp: 1 each, Rfl: 0 Social History Socioeconomic History Marital status: Single Spouse name: Not on file Number of children: Not on file Years of education: Not on file Highest education level: Not on file Occupational History Not on file Tobacco Use Smoking status: Never Smokeless tobacco: Never Vaping Use Vaping status: Never Used Substance and Sexual Activity Alcohol use: Never Drug use: Never Sexual activity: Defer Other Topics Concern Not on file Social History Narrative Not on file Social Drivers of Health Financial Resource Strain: Not on file Food Insecurity: No Food Insecurity (01/09/2024) Hunger Screening Food Insecurity - Worry: Never True Food Insecurity - Inability: Never True Transportation Needs: No Transportation Needs (01/09/2024) PRAPARE - Transportation Lack of Transportation (Medical): No Lack of Transportation (Non-Medical): No Physical Activity: Not on file Stress: Not on file Social Connections: Not on file Interpersonal Safety: Patient Unable To Answer (01/09/2024) Humiliation, Afraid, Rape, and Kick questionnaire Fear of Current or Ex-Partner: Patient unable to answer Emotionally Abused: Patient unable to answer Physically Abused: Patient unable to answer Sexually Abused: Patient unable to answer Housing Instability: Low Risk (01/09/2024) Housing Instability Housing Instability: No History reviewed. No pertinent family history. Objective Physical Exam Constitutional: General: He is not in acute distress. Appearance: Normal appearance. He is not ill-appearing. HENT: Head: Normocephalic and atraumatic. Mouth/Throat: Mouth: Mucous membranes are moist. Eyes: Pupils: Pupils are equal, round, and reactive to light. Cardiovascular: Rate and Rhythm: Normal rate. Pulmonary: Effort: Pulmonary effort is normal. No respiratory distress. Abdominal: General: There is no distension. Musculoskeletal: General: Normal range of motion. Skin: General: Skin is warm and dry. Neurological: Mental Status: He is alert and oriented to person, place, and time. Mental status is at baseline. Vital Signs: Height 177.8 cm (5' 10 ), weight 96.2 kg (212 lb). Respiratory Source: No data recorded Admission Weight: Weight: 96.2 kg (212 lb) Labs Lab Results Component Value Date WBC 11.9 (H) 01/10/2024 HGB 8.7 (L) 01/10/2024 HCT 30.0 (L) 01/10/2024 MCV 58 (L) 01/10/2024 PLT 326 01/10/2024 Lab Results Component Value Date GLU 87 01/10/2024 CALCIUM 8.5 01/10/2024 K 3.9 01/10/2024 CO2 28 01/10/2024 CL 106 01/10/2024 BUN 13 01/10/2024 CREATININE 0.93 01/10/2024 No results found for: AMYLASE No results found for: LIPASE Lab Results Component Value Date ALT 19 01/08/2024 AST 26 01/08/2024 ALKPHOS 67 01/08/2024 Lab Results Component Value Date INR 1.0 01/08/2024 PROTIME 12.0 01/08/2024 Assessment Rectal bleeding Chronic constipation History of severe rectal prolapse with perineal rectosigmoidectomy and coloanal anastomosis 12/[address] Silva Plan Continue adequate water, fiber, MiraLax. Avoid straining. Schedule colonoscopy. Needs good bowel regimen - referral to GI. Evaluation included: Preparing to see the patient (e.g., review of tests) Obtaining and/or reviewing separately obtained history Performing a medically appropriate examination and/or evaluation Counseling and educating the patient/family/caregiver Referring and communicating with other health child caregiver Rectal bleeding [K62.5] YAN GRIGSBY [facility] General [facility] This note was created with the assistance of a speech recognition program. While intending to generate a timely document that accurately reflects the content of the visit, no guarantee can be provided that every grammatical or spelling mistake has been or will be identified or corrected. Thank you for your understanding. YAN Grigsby 03/14/25 1158 YAN Grigsby 03/24/25 0837 documented in this encounter Plan of Treatment Upcoming Encounters Date Type Department Care Team (Latest Contact Info) Description 04/26/2025 11:30 AM EDT Office Visit [facility] Surgery [address] [place] [phone] Laila Gonazlez APRN-CNP [address] [place], [place] [address] 04/26/2025 4:20 PM EDT Support Visit [facility] - Pre Admit [address] [place] [phone] 05/02/2025 7:30 AM EDT Hospital Encounter [facility] [address] [place] [address] Gold Malloy, DO [address] [place] [address] 05/02/2025 7:30 AM EDT - 05/02/2025 8:00 AM EDT Surgery [facility] [address] [place] [address] [phone] Gold Malloy, DO [address] [place], [place] [address] COLONOSCOPY DIAGNOSTIC / SCREENING [44646 (CPT )] Pending Results Name Type Priority Associated Diagnoses Date /Time Surgical Pathology Pathology and Cytology Routine 03/24/2025 9:27 AM EDT Scheduled Orders Name Type Priority Associated Diagnoses Order Schedule Surgical Pathology Pathology and Cytology Routine Release Upon Ordering for 1 Occurrences starting 03/24/2025, 1 completed Scheduled Procedures Name Priority Associated Diagnoses Date/Ti me COLONOSCOPY DIAGNOSTIC / SCREENING rectal bleeding-poor prep with first attempt 05/02/2025 7:30 AM EDT documented as of this encounter Goals Goal Patient Goal Type Associated Problems Recent Progress Patient-Stated? Author home General Yes Stfeania Armijo, RN Note: Evaluation of progress towards goal: GuardianSoren, states back to long term. documented as of this encounter Procedures Procedure Name Priority Date/Time Associated Diagnosis Comments CA COLONOSCOPY FLX DX W/COLLJ SPEC WHEN PFRMD 03/24/2025 9:16 AM EDT rectal bleeding COLONOSCOPY 03/24/2025 9:14 AM EDT PROVATION COLONOSCOPY Routine 03/24/2025 8:41 AM EDT documented in this encounter Results * Colonoscopy (03/24/2025 9:14 AM EDT) 03/24/2025 9:14 AM EDT Narrative PM CARDIOVASCULAR - 03/24/2025 9:41 AM EDT [facility] Patient Name: Rj Gonzales Procedure Date No Time: 03/24/2025 CSN : [id number] Date of : 2000 Admit Type: Outpatient Age: 24 Room: [place] [address] Gender: Male Note Status: Finalized Attending MD: Gold Malloy DO, Procedure: Colonoscopy Indications: Rectal bleeding Providers: Gold Malloy DO Referring MD: Gold Malloy DO Medicines: Propofol per Anesthesia Complications: No immediate complications. Procedure: After I obtained informed consent, the scope was passed under direct vision. Throughout the procedure, the patient's blood pressure, pulse, and oxygen saturations were monitored continuously. The [facility] [id number] # [id number] PEDIATRIC COLONOSCOPE was introduced through the anus and advanced to the splenic flexure for evaluation. This was the intended extent. The colonoscopy was performed without difficulty. The patient tolerated the procedure well. The quality of the bowel preparation was inadequate. Findings: The perianal and digital rectal examinations were normal. A localized area of mildly nodular mucosa was found in the descending colon. Biopsies were taken with a cold forceps for histology. A localized area of moderately hemorrhagic and inflamed mucosa was found in the rectum. Biopsies were taken with a cold forceps for histology. Estimated Blood Loss: Estimated blood loss: none. Impression: - Preparation of the colon was inadequate. - Nodular mucosa in the descending colon. Biopsied. - Hemorrhagic and inflamed mucosa in the rectum. Biopsied. Recommendation: - Discharge patient to home. - Patient has a contact number available for emergencies. The signs and symptoms of potential delayed complications were discussed with the patient. Return to normal activities tomorrow. Written discharge instructions were provided to the patient. - Repeat colonoscopy in 1 month because the bowel preparation was poor. - Return to my office PRN. Procedure Code(s): --- Professional --- 94793, 52, Colonoscopy, flexible; with biopsy, single or multiple Diagnosis Code(s): --- Professional --- K63.89, Other specified diseases of intestine K62.5, Hemorrhage of anus and rectum K62.89, Other specified diseases of anus and rectum CPT copyright 2022 [employer]. All rights reserved. The codes documented in this report are preliminary and upon communication equipment repairer review may be revised to meet current compliance requirements. DO Gold Cui DO 03/24/2025 9:40:37 AM Number of Addenda: 0 Note Initiated On: 03/24/2025 9:14 AM Procedure Note Gold Malloy DO - 03/24/2025 [facility] Patient Name: Rj Gonzales Procedure Date No Time: 03/24/2025 CSN : [id number] Date of : 2000 Admit Type: Outpatient Age: 24 Room: [place] [address] Gender: Male Note Status: Finalized Attending MD: Gold Malloy DO, Procedure: Colonoscopy Indications: Rectal bleeding Providers: Gold Malloy DO Referring MD: Gold Malloy DO Medicines: Propofol per Anesthesia Complications: No immediate complications. Procedure: After I obtained informed consent, the scope was passed under direct vision. Throughout theprocedure, the patient's blood pressure, pulse, and oxygen saturations were monitored continuously. [id number] # [id number] PEDIATRIC COLONOSCOPE was introduced through the anus and advanced to the splenic flexure for evaluation. This was theintended extent. The colonoscopy was performed without difficulty. The patient tolerated the procedurewell. The quality of the bowel preparation wasinadequate. Findings: The perianal and digital rectal examinations were normal. A localized area of mildly nodular mucosa was found in the descending colon. Biopsies were taken with a cold forceps for histology. A localized area of moderately hemorrhagic and inflamed mucosa wasfound in the rectum. Biopsies were taken with a cold forceps forhistology. Estimated Blood Loss: Estimated blood loss: none. Impression: - Preparation of the colon was inadequate. - Nodular mucosa in the descending colon.Biopsied. - Hemorrhagic and inflamed mucosa in the rectum. Biopsied. Recommendation: - Discharge patient to home. - Patient has a contact number available for emergencies. The signs and symptoms of potential delayed complications were discussed with thepatient. Return to normal activities tomorrow. Written discharge instructions were provided to thepatient. - Repeat colonoscopy in 1 month because the bowel preparation was poor. - Return to my office PRN. Procedure Code(s): --- Professional --- 79694, 52, Colonoscopy, flexible; with biopsy,single or multiple Diagnosis Code(s): --- Professional --- K63.89, Other specified diseases of intestine K62.5, Hemorrhage of anus and rectum K62.89, Other specified diseases of anus and rectum CPT copyright 2022 [employer]. All rights reserved. The codes documented in this report are preliminary and upon communication equipment repairer reviewmay be revised to meet current compliance requirements. DO Glod Cui DO 03/24/2025 9:40:37 AM Number of Addenda: 0 Note Initiated On: 03/24/2025 9:14 AM Gold Malloy DO GI PROCEDURE ORDERABLES Fin al Result PM CARDIOVASCULAR * Colonoscopy Report (03/24/2025 8:41 AM EDT) Narrative SYSTEMGENERATED, DOCUMENTATION - 03/24/2025 8:41 AM EDT This order has been auto-finalized for image and report archival in PACs. *For full report details, please reach out to your physician. This image is visible to you in MyChart.* Gold Malloy DO IMG OR IMG ORDERABLES Final Result documented in this encounter Visit Diagnoses Diagnosis Proctitis- Primary Other specified disorder of rectum and anus Rectal bleeding Hemorrhage of rectum and anus documented in this encounter Active and Recently Administered Medications Care Teams Coat Check Attendant Relationship Specialty Start Date End Date Benson Yun MD [address] [place] [address] PCP - General Family Medicine 03/14/25 documented as of this encounter
--- OUTSIDE RECORDS SUMMARY | 2025-03-24 09:00 | XMS_ITS | Encounter Summary ---
Author Organization [facility] Address [id number] [address] [place] [address] Care Team Providers Care Boiler Erector Name Role Phone Benson Yun MD Primary Care Provider [phone] Reason for Visit * Auth/Cert Specialty Diagnoses / Procedures Referred By Marcie maxwell Referred To Contact Diagnoses rectal bleeding Procedures NV COLONOSCOPY FLX DX W/COLLJ SPEC WHEN PFRMD COLONOSCOPY DIAGNOSTIC / SCREENING Gold Malloy DO [address] [place] [address] Phone: tel: fax: Referral ID Status Reason Start Date Expiration Date Visits Re quested Visits Authorized [id number] Encounter Details Date Type Department Care Team (Late st Contact Info) Description 03/24/2025 9:00 AM EDT - 03/24/2025 9:30 AM EDT Surgery [facility] - Surgery [address] [place] [address] Gold Malloy DO [address] [place] [address] COLONOSCOPY DIAGNOSTIC / SCREENING [46140 (CPT )] Surgery Details Date/Time Status Location OR Service Patient Class Case Cl ass Case Type Trauma Case? 03/24/2025 9:00 AM Posted [facility] OR [address] [place] [address] Outpatient Surgery Elective Panel 1 Procedure LRB Anes Op Region Wound Class Comments COLONOSCOPY DIAGNOSTIC / SCREENING N/A Monitored Anesthesia Care Clean Contaminated poor prep-unable to make it to cecum , proctitis, biopsies Surgeon Surgeon Role Service Panel Gold Malloy, DO Primary General 1 documented in this encounter Social History Tobacco Use Types Packs/Day Years Used Date Smoking Tobacco: Never Smokeless Tobacco: Never Alcohol Use Standard Drinks/Week Comments Never 0 (1 standard drink = 0.6 oz pur e alcohol) [facility] Utilities Answer Date Recorded In the past 12 months has th e electric, gas, oil, or water company threatened to [...] Sign Reading Time Taken Comments Blood Pressure 120/78 03/24/2025 9:00 AM EDT Pulse 83 03/24/2025 9:00 AM EDT Temperature 36.3 C (97.3 F) 03/24/2025 9:00 AM EDT Respiratory Rate 15 03/24/2025 9:00 AM EDT Oxygen Saturation 99% 03/24/2025 9:00 AM EDT Inhaled Oxygen Concentration - - [...] Any questions regarding your care, please contact [facility] [phone] documented in this encounter Medications at Time [...] AND PHYSICAL INTERVAL NOTE: Rj Gonzales 2000 [id number] H&P reviewed. The patient was examined and there are no changes to the H&P. Gold Malloy DO Source Note - Jan Gonzalez APRN-AOC OPERATIONS INTELLIGENCE OFFICER - 03/14/2025 11:30 AM EDT Images from the original note were not included. Chief Complaint: Rectal bleeding History of Present Illness Rj Gonzales is a 24 y.o. male who presents to the office today for rectal bleeding. He lives in [facility] and staff member is present with [...] 01/09/2024 Performed by Yessenia Silva MD at [facility] No Known Allergies Current Outpatient Medications: acetaminophen [...] before bedtime., Disp: , Rfl: peg 3350-sod sulf,yixq-nzv-cnc 178.7-7.3-0.5 gram recon soln, Take 1 kit [...] patient/family/caregiver Referring and communicating with other health health care law specialist Rectal bleeding [K62.5] JANYAN BLANK [facility] This note was created with the assistance of a speech recognition program. While intending to generate a timely document that accurately reflects the content of the visit, no guarantee can be provided that every grammatical or spelling mistake has been or will be identified or corrected. Thank you for your understanding. YAN Smith 03/14/25 1158 YAN Smith 03/24/25 0837 documented in this encounter Plan of Treatment Upcoming Encounters Date Type Department Care Team (Latest Contact Info) Description 04/26/2025 11:30 AM EDT Office Visit [facility] [address] [place] [address] Jan Gonzalez APRN-CNP [address] [place] [address] 04/26/2025 4:20 PM EDT Support Visit [facility] - Pre Admit [address] [place] [address] 05/02/2025 7:30 AM EDT Hospital Encounter [facility] - Surgery [address] [place] [address] Gold Malloy, DO [address] [place] [address] 05/02/2025 7:30 AM EDT - 05/02/2025 8:00 AM EDT Surgery [facility] - Surgery [address] [place] [address] Gold Malloy, DO [address] [place] [address] COLONOSCOPY DIAGNOSTIC / SCREENING [19234 (CPT )] Pending Results Name Type Priority [...] goal: Soren Conner, states back to intermediate. documented as of this encounter Procedures Procedure Name Priority Date/Time Associated Diagnosis Comments NV COLONOSCOPY FLX DX W/COLLJ SPEC WHEN PFRMD 03/24/2025 9:16 AM EDT rectal bleeding COLONOSCOPY 03/24/2025 9:14 AM EDT PROVATION COLONOSCOPY Routine 03/24/2025 8:41 AM EDT documented in this encounter Results * Colonoscopy (03/24/2025 9:14 AM EDT) 03/24/2025 9:14 AM EDT Narrative PM CARDIOVASCULAR - 03/24/2025 9:41 AM EDT [facility] Patient Name: Rj Gonzales Procedure Date No Time: 03/24/2025 CSN : [id number] Date of : 2000 Admit Type: Outpatient Age: 24 Room: [place] [address] Gender: Male Note Status: Finalized Attending MD: Gold Malloy DO, Procedure: Colonoscopy Indications: Rectal bleeding Providers: Gold Malloy DO Referring MD: Gold Malloy DO Medicines: Propofol per Anesthesia Complications: No immediate complications. Procedure: After I obtained informed consent, the scope was passed under direct vision. Throughout the procedure, the patient's blood pressure, pulse, and oxygen saturations were monitored continuously. The [id number] # [id number] PEDIATRIC COLONOSCOPE was introduced through the anus [...] office PRN. Procedure Code(s): --- Professional --- 58163, 52, Colonoscopy, flexible; with biopsy, single or multiple Diagnosis Code(s): --- Professional --- K63.89, Other specified diseases of intestine K62.5, Hemorrhage of anus and rectum K62.89, Other specified diseases of anus and rectum CPT copyright 2022 [employer]. All rights reserved. The codes documented in this report are preliminary and upon filtrose crusher review may be revised to meet current compliance requirements. DO Gold Cui DO 03/24/2025 9:40:37 AM Number of Addenda: 0 Note Initiated On: 03/24/2025 9:14 AM Procedure Note Gold Malloy DO - 03/24/2025 [facility] Patient Name: Rj Gonzales Procedure Date No Time: 03/24/2025 CSN : [id number] Date of : 2000 Admit Type: Outpatient Age: 24 Room: [place] [address] Gender: Male Note Status: Finalized Attending MD: Gold Malloy DO, Procedure: Colonoscopy Indications: Rectal bleeding Providers: Gold Malloy DO Referring MD: Gold Malloy DO Medicines: Propofol per Anesthesia Complications: No immediate complications. Procedure: After I obtained informed consent, the scope was passed under direct vision. Throughout theprocedure, the patient's blood pressure, pulse, and oxygen saturations were monitored continuously. [id number] [id number] PEDIATRIC COLONOSCOPE was introduced through the anus [...] office PRN. Procedure Code(s): --- Professional --- 93940, 52, Colonoscopy, flexible; with biopsy,single or multiple Diagnosis Code(s): --- Professional --- K63.89, Other specified diseases of intestine K62.5, Hemorrhage of anus and rectum K62.89, Other specified diseases of anus and rectum CPT copyright 2022 [employer]. All rights reserved. The codes documented in this report are preliminary and upon filtrose crusher reviewmay be revised to meet current compliance requirements. DO Gold Cui DO 03/24/2025 9:40:37 AM Number of Addenda: 0 Note Initiated On: 03/24/2025 9:14 AM Gold Malloy DO GI PROCEDURE ORDERABLES Fin al Result [facility] * Colonoscopy Report (03/24/2025 8:41 AM EDT) Narrative SYSTEMGENERATED, DOCUMENTATION - 03/24/2025 8:41 AM EDT This order has been auto-finalized for image and report archival in PACs. *For full report details, please reach out to your physician. This image is visible to you in MyChart.* us Gold Malloy DO IMG OR IMG ORDERABLES Final Result documented in this encounter Visit Diagnoses Not on filedocumented in this encounter Active and Recently Administered Medications Care Teams Boiler Erector Relationship Specialty Start Date End Date Benson Yun MD [address] [place] [address] PCP - General Family Medicine 03/14/25 documented as of this encounter
--- OUTSIDE RECORDS SUMMARY | 2025-03-24 09:15 | XMS_ITS | Encounter Summary ---
Author Organization [employer] [facility] Address [id number] [address] [place] [address] Care Team Providers Care Sports Administrator Name Role Phone Benson Yun MD Primary Care Provider [phone] Reason for Visit * Auth/Cert Specialty Diagnoses / Procedures Referred By Marcie maxwell Referred To Contact Diagnoses rectal bleeding Procedures [place] COLONOSCOPY FLX DX W/COLLJ SPEC WHEN PFRMD COLONOSCOPY DIAGNOSTIC / SCREENING Gold Malloy, DO [address] [place] [address] Phone: tel: fax: Referral ID Status Reason Start Date Expiration Date Visits Re quested Visits Authorized [id number] Encounter Details Date Type Department Care Team (Late st Contact Info) Description 03/24/2025 9:15 AM EDT Anesthesia Event [facility] - Surgery [address] [place] [address] Yandel Mayfield MD [address] [place] [address] Anesthesia Record Procedure Summary Procedure Name Responsible Anesthesiologist Anesthesia Start Time Anesthesia Stop Time COLONOSCOPY DIAGNOSTIC / SCREENING Yandel Mayfield MD 03/24/25 0915 03/24/25 0936 Events Date Time Event Comment 03/24/2025 0900 0915 An Start 0915 An Induction The patient was reevaluated immediately before moderate or deep sedation use and before anesthesia induction. 0916 Patient Ready for Surgeon 0916 Position 0919 An Start Data 0935 an stop data 0935 Transport/Transfer From the OR 0935 Handoff to RN Transported to :Phase II, Spontaneous Ventilation, O2 per Room Air, Pt. Tolerated procedure well, vital signs stable and document on nursing record Care transferred to receiving RN 0936 An Stop Meds Name Total propofol (DIPRIVAN) injection 200 mg lidocaine (XYLOCAINE) injection 2% 60 mg lactated ringers infusion 0 mL * Agents No agents on file. * Blood No blood administrations on file. Lines, Drains, and Airways Type Details Placement Removal Wound 01/09/24; 0433; Inci margarito; Buttocks; N/A; SPONGE FLF 4X4IN BLK2 CTTN ABS 12 PLY LF STRL, PAD ABD 9X5IN ABS NWVN HDRPHB BCK SL EDG CLU STRL LF RPL [id number] 01/09/24 0433 by Zahira Carson RN Peripheral IV Placement Date: 02/25 07/21; Placement Time: 0910; Catheter Size: 22 G; Orientation: Right; Location: Antecubital; Site Prep: Chlorhexadine and isopropyl alcohol; Inserted by: BELINDA Randle; Insertion Attempts: 1; Patient Tolerance: Tolerated well; Removal Date: 03/24/25; Removal Time: 1016 03/24/25 0910 by Razia Dueñas RN 03/24/25 1016 by Michelle De La Vega RN documented in this encounter Social History Tobacco Use Types Packs/Day Years Used Date Smoking Tobacco: Never Smokeless Tobacco: Never Alcohol Use Standard Drinks/Week Comments Never 0 (1 standard drink = 0.6 oz pur e alcohol) [facility] Utilities Answer Date Recorded In the past 12 months has [employer], or water [employer] threatened to shut off services in your [...] on file documented as of this encounter OR Notes * Anesthesia Postprocedure Evaluation - Yandel Mayfield MD - 03/24/2025 2:25 PM EDT ANESTHESIA POST-EVALUATION [facility] Procedure Summary Date: 03/24/25 Room / Location: [facility] OR [address] [place] [address] SURGERY Anesthesia Start: 914 Anesthesia Stop: 935 Procedure: COLONOSCOPY DIAGNOSTIC / SCREENING Diagnosis: (rectal bleeding) Surgeons: Gold Malloy DO Responsible Provider: Yandel Mayfield MD Anesthesia Type: MAC ASA Status: 3 Vitals: 03/24/25 1010 BP: 119/81 Pulse: 76 Resp: 14 Temp: SpO2: Patient Evaluated: PACU Patient Participation: Complete - patient participated Patient Level of Consciousness: Awake Pain Score: 1 Pain Management: Adequate Airway Patency: Patent Anesthetic Complications: No Cardiovascular Status: Hemodynamically Stable Respiratory Status: Stable/Baseline, Nonlabored Ventilation and Room Air Post-op Hydration: Euvolemic Final Anesthesia Type: MAC Does patient meet criteria to D/C from PACU?: Yes Is patient sedated pharmacologically at PACU D/C?: No No notable events documented. * Anesthesia Preprocedure Evaluation - Yandel Mayfield MD - 03/24/2025 9:00 AM EDT Images from the original note were not included. ANESTHESIA PRE-PROCEDURE EVALUATION [facility] Procedure(s): COLONOSCOPY DIAGNOSTIC / SCREENING ANESTHESIA PHYSICAL EXAM Patient summary reviewed and nursing notes reviewed. Airway Mallampati: II TM distance: >3 FB Neck ROM: full Patient is not intubated Patient does not have tracheostomy Dental : exam normal Pulmonary : exam normal Cardiovascular : exam normal Abdominal : exam normal Other Findings ANESTHESIA PLAN ASA 3 Anesthesia Type: MAC Induction: Intravenous Anesthetic risks, plan and alternatives discussed with Patient and Spouse. Use of blood products discussed with Patient and Spouse who consented to blood products. Plan discussed with Attending and HEAD ATHLETIC TRAINER/STRENGTH COACH. Airway Management: Nasal Cannula and Awake/Sedated Post op Pain Management: IV Analgesics Transfer to Phase II PONV: Low Risk Total Score: 1 Non-smoker Criteria that do not apply: Female patient History of PONV and/or Motion Sickness Intended opioid administration RCRI: Low Risk: Score of 0 = 3.9% (2.8-5.4%) Risk of major cardiac event Score of 1 = 6.0% (4.9-7.4%) Risk of major cardiac event Total Score: 0 Criteria that do not apply: Cerebrovascular Disease Ischemic Heart Disease Congestive Heart Failure Elevated Risk Surgery Pre-operative Treatment with Insulin Pre-operative Creatinine >2 mg/dL / 176.8 mol/L Patient Active Problem List Diagnosis Rectal prolapse documented in this encounter Plan of Treatment Upcoming Encounters Date Type Department Care Team (Latest Contact Info) Description 04/26/2025 11:30 AM EDT Office Visit [facility] [address] [place] [address] Laila Gonzalez, WIND FARM ELECTRICAL SYSTEMS DESIGNER-INFORMATION SYSTEMS AUDIT MANAGER [address] [place] [address] 04/26/2025 4:20 PM EDT Support Visit [facility] - Pre Admit [address] [place] [address] 05/02/2025 7:30 AM EDT Hospital Encounter [facility] - Surgery [address] [place] [address] Gold Malloy, DO [address] [place], [place] [id number] 05/02/2025 7:30 AM EDT - 05/02/2025 8:00 AM EDT Surgery [facility] - Surgery [address] [facility] [place] [id number] Gold Malloy, DO [address] [place], [place] [id number] COLONOSCOPY DIAGNOSTIC / SCREENING [97936 (CPT )] Scheduled Procedures Name Priority Associated Diagnoses Date/Ti co COLONOSCOPY DIAGNOSTIC / SCREENING rectal bleeding-poor prep with first attempt 05/02/2025 7:30 AM EDT documented as of this encounter Goals Goal Patient Goal Type Associated Problems Recent Progress Patient-Stated? Author home General Yes Stefania Armijo, RN Note: Evaluation of progress towards goal: Soren Conner, states back to fpc. documented as of this encounter Visit Diagnoses Not on filedocumented in this encounter Administered Medications Inactive Administered Medications - up to 3 most recent administrations Medication Order MAR Action Action Date Dose Rate Site lidocaine (XYLOCAINE) 20 mg/mL (2 %) injection intravenous, As needed, Starting on Patty 03/24/25 at 0917, Anesthesia Intra-op Given 03/24/2025 9:17 AM EDT 60 mg propofoL (DIPRIVAN) infusion intravenous, As needed, Starting on Patty 03/24/25 at 0916, Anesthesia Intra-op Given 03/24/2025 9:19 AM EDT 100 mg Given 03/24/2025 9:16 AM EDT 100 mg documented in this encounter Care Teams Sports Administrator Relationship Specialty Start Date End Date Benson Yun MD [address] [place] [address] PCP - General Family Medicine 03/14/25 documented as of this encounter
--- OUTSIDE RECORDS SUMMARY | 2025-03-30 15:38 | XMS_ITS | Clinical Summary ---
Author Organization [employer] [facility] Address [id number] [address] [place] [address] Care Team Providers Care Motion Picture Critic Name Role Phone Benson Yun MD Primary Care Provider [phone] Allergies No known active allergies Medications benztropine (COGENTIN) 2 mg tablet Take 1 tablet (2 mg total) by mouth in the morning and 1 tablet (2 mg total) before bedtime. Active clonazePAM (KlonoPIN) 0.5 mg tablet Take 1 tablet (0.5 mg total) by mouth in the morning and 1 tablet (0.5 mg total) at noon and 1 tablet (0.5 mg total) before bedtime. Active cloZAPine (CLOZARIL) 200 mg tablet Take 1.5 tablets (300 mg total) by mouth nightly. Active polycarbophil (FIBERCON) 625 mg tablet Take 1 tablet (625 mg total) by mouth in the morning and 1 tablet (625 mg total) before bedtime. Active FLUoxetine (PROzac) 40 MG capsule Take 1 capsule (40 mg total) by mouth in the morning and 1 capsule (40 mg total) before bedtime. Active haloperidol (HALDOL) 10 mg tablet Take 1 tablet (10 mg total) by mouth in the morning and 1 tablet (10 mg total) before bedtime. Active loratadine (CLARITIN) 10 mg tablet Take 1 tablet (10 mg total) by mouth in the morning. Active risperiDONE (RisperDAL) 1 mg tablet Take 1 tablet (1 mg total) by mouth in the morning and 1 tablet (1 mg total) before bedtime. Active docusate sodium (COLACE) 100 mg capsule Take 1 capsule (100 mg total) by mouth in the morning. Active ibuprofen (MOTRIN) 800 mg tablet Take 1 tablet (800 mg total) by mouth every 8 (eight) hours as needed for pain. 30 tablet 01/17/20 23 Active acetaminophen (TYLENOL EXTRA STRENGTH) 500 mg tablet Take 2 tablets (1,000 mg total) by mouth every 6 (six) hours as needed for pain. 30 tablet 01/10/20 24 Active cloZAPine (CLOZARIL) 100 mg tablet Take 1 tablet (100 mg total) by mouth in the morning and 1 tablet (100 mg total) at noon and 1 tablet (100 mg total) before bedtime. 01/05/20 25 Active polyethylene glycol (GLYCOLAX) 17 gram packetIndication s:Chronic constipation Take 17 g by mouth 2 (two) times a day as needed (1-2 times daily as needed). 60 packet 1 01/08/20 25 Active hydrocortisone-p ramoxine (PROCTOFOAM-HS) rectal foamIndications: Proctitis Insert 1 applicator into the rectum in the morning and 1 applicator before bedtime. 10 g 03/24/20 25 Active peg 3350-sod sulf,chlr-pot-ma g 178.7-7.3-0.5 gram recon solnIndications: Rectal bleeding,Chronic constipation Take 1 kit by mouth in the morning for 1 dose. Please see instructional sheet given by physicians office. 1 each 03/14/20 25 025 Active Problems Problem Noted Date Diagnosed Date Rectal prolapse 01/09/2024 Encounters Date Type Department Care Team Description 03/29/2025 Telephone [facility] General Surgery [address] [place] [address] Gold Malloy DO 03/24/2025 9:15 AM EDT Anesthesia Event [facility] - Surgery [address] [place] [address] Yandel Mayfield MD 03/24/2025 9:00 AM EDT - 03/24/2025 9:30 AM EDT Surgery [facility] - Surgery [address] [place] [address] Gold Malloy, DO COLONOSCOPY DIAGNOSTIC / SCREENING [14255 (CPT )] 03/24/2025 6:40 AM EDT - 03/24/2025 10:27 AM EDT Hospital Encounter [facility] - Surgery [address] [place] [address] Gold Malloy, DO Proctitis (Primary Dx); Rectal bleeding Discharge Disposition: Home 03/24/2025 Travel 03/17/2025 2:10 PM EDT Support Visit [facility] - Pre Admit [address] [place] [address] 03/14/2025 11:30 AM EDT Office Visit [facility] [address] [place] [address] Laila Gonzalez, JAVA ORACLE DEVELOPER-SNOWBOARDING INSTRUCTOR Rectal bleeding (Primary Dx); Chronic constipation; Straining during bowel movements 03/14/2025 Travel 01/07/2025 10:30 AM EDT Office Visit [facility] [address] [place] [address] Laila Gonzalez, JAVA ORACLE DEVELOPER-SNOWBOARDING INSTRUCTOR Rectal bleeding (Primary Dx); Chronic constipation; Straining during bowel movements 01/07/2025 Travel from Last 3 Months Immunizations Immunization Administration Dates Next Due COVID-19, mRNA, LNP-S, PF, 30mcg/0.3mL Dose 11/27,11/17/2020 DTaP 01/18/2005 DTaP / Hep B / IPV 07/18/2004 DTaP, Unspecified 02/08/2003,1998 Hep A, 2 Dose 08/17/2008,02/02/2008 Hep B, Adolescent or Pediatric 02/08/2003,1997,1998 HiB 02/08/2003,1998 Influenza, Im Pediatric (Pf) 08/28/2016 Influenza, Im Trivalent Preservative 08/16/2015 Influenza, Injectable, quadrivalent (PF) 020,08/18/2019,08/21/2017 MMR 07/17/2004,02/08/2003 Meningococcal MCV4P 08/28/2016 Polio, Unspecified 02/08/2003,1998 Tdap 08/05/2019,12/02/2017,08/07/2011 Varicella 02/02/2008,02/08/2003 Family History Medical History Relation Name Comments No Known Problems Father No Known Problems Mother Relation Name Status Comments Father Alive Mother Alive Social History Tobacco Use Types Packs/Day Years Used Date Smoking Tobacco: Never Smokeless Tobacco: Never Tobacco Cessation:Counseling Given: No Alcohol Use Standard Drinks/Week Comments Never 0 (1 standard drink = 0.6 oz pur e alcohol) [facility] Utilities Answer Date Recorded In the [...] on file Sexual Orientation Not on file Last Filed Vital Signs Vital Sign Reading [...] Mass Index 30.13 03/24/2025 9:00 AM EDT Plan of Treatment Upcoming Encounters Date Type Department Care Team (Latest Contact Info) Description 04/26/2025 11:30 AM EDT Office Visit [facility] General Surgery [address] [place] [address] Laila Gonzalez, JAVA ORACLE DEVELOPER-SNOWBOARDING INSTRUCTOR [address] [place], [place] [id number] 04/26/2025 4:20 PM EDT Support Visit [facility] - Pre Admit [address] [place] [address] 05/02/2025 7:30 AM EDT Hospital Encounter [facility] - Surgery [address] [place] [address] Gold Malloy DO [address] [place], [place] [id number] 05/02/2025 7:30 AM EDT - 05/02/2025 8:00 AM EDT Surgery [facility] - Surgery [address] [place] [address] Gold Malloy, DO [address] [id number] COLONOSCOPY DIAGNOSTIC / SCREENING [08658 (CPT )] Scheduled Procedures Name Priority Associated Diagnoses Date/Ti me COLONOSCOPY DIAGNOSTIC / SCREENING rectal bleeding-poor prep with first attempt 05/02/2025 7:30 AM EDT Health Maintenance Due Date Last Done Comments Depression Screening 2010 Adult BMI Follow Up Plan 2016 COVID-19 Vaccine (3 - 2023-2 5 season) 2024 12/08/2020, 11/17/2020 Influenza Vaccine 06/27/2025 08/31/2020, , 08/21/2017, Additional history exists Adult BMI Screening 03/24/2026 03/24/2025 Tobacco Screening 03/24/2026 03/24/2025 DTaP,Tdap and Td Vaccines (8 - Td or Tdap) 08/05/2029 08/05/2019, 12/02/2017, 08/07/2011, Additional history exists Goals Goal Patient Goal Type Associated Problems Recent Progress Patient-Stated? Author home General Yes Stefania Armijo, RN Note: Evaluation of progress towards goal: Soren Conner, states back to [facility]. Autogenerated Goal Care Plan Autogenerated Problem No Freeman, [employer] Not on file Procedures Procedure Name Priority Date/Time Associated Diagnosis Comments [place] COLONOSCOPY FLX DX W/COLLJ SPEC WHEN PFRMD 03/24/2025 9:16 AM EDT rectal bleeding COLONOSCOPY 03/24/2025 9:14 AM EDT PROVATION COLONOSCOPY Routine 03/24/2025 8:41 AM EDT from Last 3 Months Results * Colonoscopy (03/24/2025 9:14 AM EDT) 03/24/2025 9:14 AM EDT Narrative PM CARDIOVASCULAR - 03/24/2025 9:41 AM EDT [facility] Patient Name: Rj Gonzales Procedure Date No Time: 03/24/2025 CSN : [id number] Date of : 2000 Admit Type: Outpatient Age: 24 Room: [place] [address] Gender: Male Note Status: Finalized Attending MD: Gold Malloy DO, Procedure: Colonoscopy Indications: Rectal bleeding Providers: Gold Malloy DO Referring MD: Gold Malloy DO Medicines: Propofol per Anesthesia Complications: No immediate complications. Procedure: After I obtained informed consent, the scope was passed under direct vision. Throughout the procedure, the patient's blood pressure, pulse, and oxygen saturations were monitored continuously. The [facility] [id number]-[id number] # [id number] PEDIATRIC COLONOSCOPE was introduced through the anus [...] office PRN. Procedure Code(s): --- Professional --- 01683, 52, Colonoscopy, flexible; with biopsy, single or multiple Diagnosis Code(s): --- Professional --- K63.89, Other specified diseases of intestine K62.5, Hemorrhage of anus and rectum K62.89, Other specified diseases of anus and rectum CPT copyright 2022 [employer]. All rights reserved. The codes documented in this report are preliminary and upon insurance coder review may be revised to meet current compliance requirements. DO Gold Cui DO 03/24/2025 9:40:37 AM Number of Addenda: 0 Note Initiated On: 03/24/2025 9:14 AM Procedure Note Gold Malloy DO - 03/24/2025 [facility] Patient Name: Rj Gonzales Procedure Date No Time: 03/24/2025 CSN : [id number] Date of : 2000 Admit Type: Outpatient Age: 24 Room: [place] [address] Gender: Male Note Status: Finalized Attending MD: Gold Malloy DO, Procedure: Colonoscopy Indications: Rectal bleeding Providers: Gold Malloy DO Referring MD: Gold Malloy DO Medicines: Propofol per Anesthesia Complications: No immediate complications. Procedure: After I obtained informed consent, the scope was passed under direct vision. Throughout theprocedure, the patient's blood pressure, pulse, and oxygen saturations were monitored continuously. [id number] # [id number] PEDIATRIC COLONOSCOPE was introduced through the anus [...] office PRN. Procedure Code(s): --- Professional --- 87767, 52, Colonoscopy, flexible; with biopsy,single or multiple Diagnosis Code(s): --- Professional --- K63.89, Other specified diseases of intestine K62.5, Hemorrhage of anus and rectum K62.89, Other specified diseases of anus and rectum CPT copyright 2022 [employer]. All rights reserved. The codes documented in this report are preliminary and upon insurance coder reviewmay be revised to meet current compliance requirements. DO Gold Cui DO 03/24/2025 9:40:37 AM Number of Addenda: 0 Note Initiated On: 03/24/2025 9:14 AM us Gold Malloy DO GI PROCEDURE ORDERABLES Fin [...] DO IMG OR IMG ORDERABLES Final Result from Last 3 Months Additional Health Concerns Active Problems Noted Date Diagnosed Date Autogenerated Problem 03/30/2025 Insurance [place] Advance Directives * Full Code (Latest Code Status on File) Date Activated Date Inactivated Comments 01/09/2024 4:52 AM 01/10/2024 3:12 PM Care Teams Motion Picture Critic Relationship Specialty Start Date End Date Benson Yun MD [address] [place] [address] PCP - General Family Medicine 03/14/25
--- OUTSIDE RECORDS SUMMARY | 2025-03-30 15:38 | XMS_ITS | Encounter Summary ---
Author Organization [facility] Address [id number] [address] [place] [address] Care Team Providers Care Pet Technologist Name Role Phone Benson Yun MD Primary Care Provider [phone] Encounter Details Date Type Department Care Team (Latest Contact Info) Description 03/24/2025 Travel Social History Tobacco Use Types Packs/Day Years Used Date Smoking Tobacco: Never Smokeless Tobacco: Never Alcohol Use Standard Drinks/Week Comments Never 0 (1 standard drink = 0.6 oz pur e alcohol) [facility] Utilities Answer Date Recorded In the past 12 months has e [employer], gas, oil, or water company threatened to [...] on file documented as of this encounter Plan of Treatment Upcoming Encounters Date Type Department Care Team (Latest Contact Info) Description 04/26/2025 11:30 AM EDT Office Visit [facility] General Surgery [address] [place] [address] Laila Gonzalez, BEND SORTER-CUSTOMER SUCCESS REPRESENTATIVE [address] [place] [address] 04/26/2025 4:20 PM EDT Support Visit [facility] - Pre Admit [address] [place] [address] 05/02/2025 7:30 AM EDT Hospital Encounter [facility] - Surgery [address] [place] [address] Gold Malloy, DO [address] [place] [address] 05/02/2025 7:30 AM EDT - 05/02/2025 8:00 AM EDT Surgery [facility] - Surgery [address] [place] [address] Gold Malloy, DO [address] [place] [address] COLONOSCOPY DIAGNOSTIC / SCREENING [74986 (CPT )] Scheduled Procedures Name Priority Associated Diagnoses Date/Ti me COLONOSCOPY DIAGNOSTIC / SCREENING rectal bleeding-poor prep with first attempt 05/02/2025 7:30 AM EDT documented as of this encounter Goals Goal Patient Goal Type Associated Problems Recent Progress Patient-Stated? Author home General Yes Stefania Armijo RN Note: Evaluation of progress towards goal: ArleenanSoren, states back to senior living. documented as of this encounter Visit Diagnoses Not on filedocumented in this encounter Care Teams Pet Technologist Relationship Specialty Start Date End Date Benson Yun MD [address] [place] [address] PCP - General Family Medicine 03/14/25 documented as of this encounter
--- OUTSIDE RECORDS SUMMARY | 2025-03-30 15:38 | XMS_ITS | Encounter Summary ---
Author Organization [facility] Address [address] [place] [address] Care Team Providers Care Director Fixed Income Name Role Phone Benson Yun MD Primary Care Provider [phone] Benson Yun MD Primary Care Provider [phone] Benson Yun MD Unavailable Encounter Details Date Type Department Care Team (Late st Contact Info) Description 05/12/2023 Abstract [facility] [address] [place] [address] Caroline Martínez NP Social History Tobacco Use Types Packs/Day Years Used Date Smoking Tobacco: Never Tobacco Cessation:Counseling Given: Not Answered Alcohol Use Standard Drinks/Week Comments Not Currently 0 (1 standard drink = 0.6 oz pur e alcohol) Sex and Gender Information Value Date Recorded Sex Assigned at Not on file Legal Sex Male 12:16 PM EDT Gender Identity Not on file Sexual Orientation Not on file documented as of this encounter Plan of Treatment Upcoming Encounters Date Type Department Care Team (Late st Contact Info) Description 07/15/2025 10:00 AM EDT Office Visit [facility] [address] [place] [address] Benson Yun MD [address] [place] [address] documented as of this encounter Visit Diagnoses Not on filedocumented in this encounter Care Teams Director Fixed Income Relationship Specialty Start Date End Date Benson Yun MD PCP - General Cardiology 04/02/23 01/06/24 Benson Yun MD [address] [place] [address] PCP - General Family Medicine 01/07/24 Benson Yun MD [address] [place] [address] PCP - ACO Reach 12/03/24 documented as of this encounter
--- OUTSIDE RECORDS SUMMARY | 2025-03-30 15:38 | XMS_ITS | Encounter Summary ---
Author Organization [employer] [facility] tem Address [facility] [id number] [address] [place] [address] Care Team Providers Care Dynamite Packing Machine Operator Name Role Phone Benson Yun MD Primary Care Provider [phone] Encounter Details Date Type Department Care Team ([facility] st Contact Info) Description 03/29/2025 Telephone [facility] [address] [address] Gold Malloy DO [address] [place] [address] Social History Tobacco Use Types Packs/Day Years Used Date Smoking Tobacco: Never Smokeless Tobacco: Never Alcohol Use Standard Drinks/Week Comments Never 0 (1 standard drink = 0.6 oz pur e alcohol) [facility] Utilities Answer Date Recorded In the past 12 months has [employer], [employer], oil, or water [employer] threatened to shut off services in your [...] as of this encounter Miscellaneous Notes * Telephone Encounter - Cristina Shaffer - 03/29/2025 11:[address] Malloy's operative report dated 03/24/2025: Repeat colonoscopy in 1 month because the bowelpreparation was poor. * Telephone Encounter - HILARY Villegas - 03/29/2025 11:27 AM EDT Janet was called and spoke with child care / Alivia and we scheduled his H & P office visit and scheduled a repeat colonoscopy per Dr. Malloy. documented in this encounter Plan of Treatment Upcoming Encounters Date Type Department Care Team (Latest Contact Info) Description 04/26/2025 11:30 AM EDT Office Visit [facility] [address] [place] [address] Laila Gonzalez, INSULATION WORKER-PILOT MANAGER [address] [place], [place] [phone] 04/26/2025 4:20 PM EDT Support Visit [facility] - Pre Admit [address] [place] [address] 05/02/2025 7:30 AM EDT Hospital Encounter [facility] - Surgery [address] [facility] [place] [address] Gold Malloy, DO [address] [place], [place] [phone] 05/02/2025 7:30 AM EDT - 05/02/2025 8:00 AM EDT Surgery [facility] - Surgery [address] [facility] [place] [address] Gold Malloy, DO [address] [place] [address] COLONOSCOPY DIAGNOSTIC / SCREENING [44284 (CPT )] Scheduled Procedures Name Priority Associated Diagnoses Date/Ti me COLONOSCOPY DIAGNOSTIC / SCREENING rectal bleeding-poor prep with first attempt 05/02/2025 7:30 AM EDT documented as of this encounter Goals Goal Patient Goal Type Associated Problems Recent Progress Patient-Stated? Author home General Yes Stefania Armijo, RN Note: Evaluation of progress towards goal: Soren Conner, states back to prison. documented as of this encounter Visit Diagnoses Not on filedocumented in this encounter Care Teams Dynamite Packing Machine Operator Relationship Specialty Start Date End Date Benson Yun MD [address] [place] [address] PCP - General Family Medicine 03/14/25 documented as of this encounter
--- OUTSIDE RECORDS SUMMARY | 2025-03-30 15:38 | XMS_ITS | Encounter Summary ---
Author Organization [employer] [facility] tem Address [id number] [address] [place] [address] Care Team Providers Care Crime Scene Investigator Name Role Phone Benson Yun MD Primary Care Provider [phone] Encounter Details Date Type Department Care Team (Late st Contact Info) Description 01/12/2024 Telephone [facility] [address] [address] Brothers, Ligai Bridges Social History Tobacco Use Types Packs/Day Years Used Date Smoking Tobacco: Never Smokeless Tobacco: Never Alcohol Use Standard Drinks/Week Comments Never 0 (1 standard drink = 0.6 oz pur e alcohol) [facility] Utilities Answer Date Recorded In the past 12 months has e electric, gas, oil, or water company [...] Description 04/26/2025 11:30 AM EDT Office Visit [facility] General Surgery [address] [place] [address] Laila Gonzalez, COMPUTER COMPOSITOR-AIRBORNE OPERATIONS MANAGER [address] [place] [address] 04/26/2025 4:20 PM EDT Support Visit [facility] - Pre Admit [address] [place] [address] 05/02/2025 7:30 AM EDT Hospital Encounter [facility] - Surgery [address] [place] [address] Gold Malloy DO [address] [place] [address] 05/02/2025 7:30 AM EDT - 05/02/2025 8:00 AM EDT Surgery [facility] - Surgery [address] [place] [address] Gold Malloy, [address] [place], [place] [phone] COLONOSCOPY DIAGNOSTIC / SCREENING [58518 (CPT )] Scheduled Procedures Name Priority Associated Diagnoses Date/Ti me COLONOSCOPY DIAGNOSTIC / SCREENING rectal bleeding-poor prep with first attempt 05/02/2025 7:30 AM EDT documented as of this encounter Goals Goal Patient Goal Type Associated Problems Recent Progress Patient-Stated? Author home General Yes Stefania Armijo, RN Note: Evaluation of progress towards goal: ArleenanSoren, states back to [facility]. documented as of this encounter Visit Diagnoses Not on filedocumented in this encounter Care Teams Crime Scene Investigator Relationship Specialty Start Date End Date Benson Yun MD [address] [place] [address] PCP - General Family Medicine 03/14/25 documented as of this encounter
--- OUTSIDE RECORDS SUMMARY | 2025-03-30 15:38 | XMS_ITS | Clinical Summary ---
Author Organization [facility] Address [address] [place] [address] Care Team Providers Care Recyclable Products Sorter Name Role Phone Benson Yun MD Primary Care Provider [phone] Benson Yun MD Unavailable Allergies No known active allergies Medications clonazePAM (KlonoPIN) 0.5 MG tablet Take 0.5 mg by mouth in the morning and 0.5 mg in the evening. Active benztropine (Cogentin) 2 MG tablet Take 2 mg by mouth in the morning and 2 mg in the evening. Active haloperidol (Haldol) 10 MG tablet Take 10 mg by mouth in the morning and 10 mg in the evening. Active FLUoxetine (PROzac) 40 MG capsule Take 40 mg by mouth in the morning and 40 mg in the evening. Active Docusate Sodium (DSS) 100 MG capsuleIndication s:Chronic constipation Take 1 capsule (100 mg) by mouth in the morning. 60 capsule 5 4 Active loratadine (Claritin) 10 MG tabletIndications :Seasonal allergic rhinitis due to pollen Take 1 tablet (10 mg) by mouth in the morning. 30 tablet 11 5 12/21/19 26 Active polycarbophil (Fiber-Lax) 625 MG tabletIndications :Chronic constipation Take 1 tablet (625 mg) by mouth Daily 30 tablet 5 5 Active Active Problems Problem Noted Date Diagnosed Date Personal care impairment 01/12/2025 Chronic constipation 01/07/2024 Assessment & Plan (01/12/2025 10:05 AM EDT): Recent bleeding and worsening constipation. Surgeon added miralax and continue. Avoid straining and monitor. Assessment & Plan (07/14/2024 10:07 AM EDT): BM every few days and resume daily fiber supplement. Assessment & Plan (01/07/2024 10:51 AM EDT): Regular BM and continue medication. Increase dietary fiber and water intake. Fatigue 01/07/2024 Mild intellectual disabilities 01/07/2024 Assessment & Plan (01/07/2024 10:52 AM EDT): No behavior problems and monitor. Oppositional defiant disorder 01/07/2024 Chronic schizophrenia 01/07/2024 Assessment & Plan (01/12/2025 10:05 AM EDT): No behavior problems and follow up with psychiatry. Assessment & Plan (07/14/2024 10:07 AM EDT): No behavior problems and follow up with psychiatry. Assessment & Plan (01/07/2024 10:51 AM EDT): No behavior problems and follow up with psychiatry. Tic disorder, unspecified 01/07/2024 Seasonal allergic rhinitis due to pollen 024 Assessment & Plan (01/12/2025 10:05 AM EDT): Symptoms controlled with medication and continue. Assessment & Plan (07/14/2024 10:07 AM EDT): Symptoms controlled with medication and continue. Assessment & Plan (01/07/2024 10:51 AM EDT): Symptoms controlled with medication and continue. Developmental delay 07/10/2021 Overview (01/07/2024): Last Assessment & Plan: Assessment: patient is verbal, cooperative, and ambulatory Assessment & Plan (01/07/2024 10:52 AM EDT): No behavior problems and monitor. Encounters Date Type Department Care Team Description 03/24/[address] [facility] [facility] [address] [place] [address] Gold Malloy DO 03/01/2025 Clinisync Result Encounter [facility] External Department Unsolicited Provider, Generic External Data 02/02/2025 Clinisync Result Encounter [facility] External Department Unsolicited Provider, Generic External Data 02/02/[address] [facility] [address] [place] [address] Benson Yun MD Chronic constipation 01/12/2025 9:30 AM EDT Office Visit [facility] [address] [place] [address] Benson Yun MD Seasonal allergic rhinitis due to pollen (Primary Dx); Chronic constipation; Chronic schizophrenia (CMS/HCC); Mild intellectual disabilities (CMS/[facility]) ; Personal care impairment 01/12/[address] [facility] [address] [place] [id number] Benson Yun MD 01/04/2025 Clinisync Result Encounter [facility] External Department Unsolicited Provider, Generic External Data from Last 3 Months Family History Relation Name Status Comments Father Alive Mother [...] Sign Reading Time Taken Comments Blood Pressure 124/66 01/12/2025 9:42 AM EDT Pulse 111 01/12/2025 9:42 AM EDT Temperature 36.3 C (97.3 F) 01/12/2025 9:42 AM EDT Respiratory Rate 20 01/12/2025 9:42 AM EDT Oxygen Saturation 98% 01/12/2025 9:42 AM EDT Inhaled Oxygen Concentration - - Weight 93.9 kg (207 lb) 01/12/2025 9:42 AM EDT Height 177.8 cm (5' 10 ) 01/12/2025 9:42 AM EDT Body Mass Index 29.7 01/12/2025 9:42 AM EDT Plan of Treatment Upcoming Encounters Date Type Department Care Team (Late st Contact Info) Description 07/15/2025 10:00 AM EDT Office Visit [facility] [address] [place] [address] Benson Yun MD [address] [place] [address] Health Maintenance Due Date Last Done Comments Influenza Vaccine (Season Ended) 2025 08/31/2020, 08/18/2019, 08/21/2017, Additional history exists Medicare Annual Wellness (AWV) 01/12/2026 01/12/2025 (Patient Refused) Procedures Procedure Name Priority Date/Time Associated Diagnosis Comments COLONOSCOPY Routine 03/24/2025 9:55 AM EDT ALL CBC WITH AUTO DIFF Routine 03/01/2025 3:37 PM EDT ALL CBC WITH AUTO DIFF Routine 02/02/2025 4:00 PM EDT ALL CBC WITH AUTO DIFF Routine 01/04/2025 3:12 PM EDT from Last 3 Months Results * Colonoscopy (03/24/2025 9:55 AM EDT) Anatomical Region Laterality Modality Endoscopy Gold Malloy DO ENDOSCOPY PROCEDURE ORDERABLE S Final Result * (ABNORMAL) ALL CBC WITH AUTO DIFF (03/01/2025 3:37 PM EDT) Only the most recent of3 resultswithin the time period is included. Pathologist [facility] WBC 5.4 4.0 - 11.0 10 3/uL TBH TBH RBC 6.15(H) 4.70 - 6.10 10 6/uL TBH Comment: 1+ HYPO 1+ OVAL TBH HGB 12.4(L) 14.0 - 18.0 g/dL TBH TBH HCT 43.3 42.0 - 54.0 % TBH TBH MCV 70.4(L) 80.0 - 94.0 fL TBH TBH MCH 20.2(L) 25.9 - 34.0 pg TBH TBH MCHC 28.6(L) 29.9 - 35.2 g/dL TBH TBH RDW 20.8(H) 11.0 - 15.0 % TBH TBH PLT 295 150 - 450 10 3/uL TBH TBH MPV 9.7 9.5 - 13.5 fL TBH NEUTROPHILS PERCENT AUTO 58.1 43.0 - 75.0 % TBH LYMPHOCYTES PERCENT AUTO 28.8 20.5 - 60.0 % TBH MONOCYTES PERCENT AUTO 8.9 1.7 - 12.0 % TBH TBH EO % 3.3 0.9 - 7.0 % TBH BASOPHILS PERCENT AUTO 0.7 0.2 - 2.0 % TBH IMMATURE GRANULOCYTES PCT AUTO 0.2 0.0 - 0.5 % TBH NEUTROPHILS ABSOLUTE AUTO 3.1 1.4 - 6.5 10 3/uL TBH LYMPHOCYTES ABSOLUTE AUTO 1.6 1.2 - 3.8 10 3/uL TBH MONOCYTES ABSOLUTE AUTO 0.5 0.3 - 0.8 10 3/uL TBH TBH EO # 0.2 0.0 - 0.7 10 3/uL TBH BASOPHILS ABSOLUTE AUTO 0.0 0.0 - 0.1 10 3/uL TBH IMMATURE GRANULOCYTES ABS AUTO 0.01 0.00 - 0.03 10 3/uL TBH 03/01/2025 3:37 PM EDT 03/01/2025 3:39 PM EDT Narrative [facility] - 03/01/2025 4:30 PM EDT us Generic External Data Provider [facility] F inal Result [facility] from Last 3 Months Insurance MEDICARE MEDICAID [place] Care Teams Recyclable Products Sorter Relationship Specialty Start Date End Date Benson Yun MD [address] [place] [address] PCP - General Family Medicine 01/07/24 Benson Yun MD [address] [place] [address] PCP - ACO Reach 12/03/24
--- OUTSIDE RECORDS SUMMARY | 2025-03-30 15:38 | XMS_ITS | Clinical Summary ---
Author Organization [facility] Address [address] [place], [place] [id number] Care Team Providers Care Bench Precision Assembler Name Role Phone Unavailable Primary Care Provider Unavailabl e Allergies No known active allergies Medications benztropine (COGENTIN) 2 mg tablet Take 2 mg by mouth twice daily. Active clonazePAM (KLONOPIN) 1 mg tablet Take 1 mg by mouth twice daily as needed. Active FLUoxetine HCl (PROZAC) 40 mg capsule Take 40 mg by mouth once daily. Active haloperidol (HALDOL) 10 mg tablet Take 10 mg by mouth four times daily. Active polyethylene glycol 3350 (MIRALAX) 17 gram packetIndications :Rectal ulcer Take 1 Packet by mouth once daily. 30 Packet 5 06/02/20 18 Active docusate sodium (COLACE) 100 mg capsule Take 100 mg by mouth twice daily. Active cloZAPine (CLOZARIL) 100 mg tablet 06/07/20 21 Active risperiDONE (RISPERDAL) 1 mg tablet Take 1 mg by mouth. Active loratadine (CLARITIN) 10 mg tablet Take 10 mg by mouth. Active calcium polycarbophil (FIBERCON) 625 mg tablet Take 625 mg by mouth. Active acetaminophen (TYLENOL) 325 mg tablet Take 2 tablets by mouth every 6 hours. 10/17/20 21 Active ibuprofen (MOTRIN) 200 mg tablet Take 2 tablets by mouth every 4 hours as needed for pain. 10/17/20 21 Active Magnesium Carbonate powd 4 g daily at bedtime. Used for constipation 28 g 3 03/28/20 22 Active Active Problems Problem Noted Date Diagnosed Date Hemorrhoids 10/17/2021 Developmental delay 07/10/2021 Assessment & Plan (07/10/2021 2:27 PM EDT): Assessment: patient is verbal, cooperative, and ambulatory Schizophrenia 07/10/2021 Assessment & Plan (07/10/2021 2:27 PM EDT): Assessment: controlled on meds Social History Tobacco Use Types Packs/Day Years Used Date Smoking Tobacco: Never Smokeless Tobacco: Never Alcohol Use Standard Drinks/Week Comments No 0 (1 standard drink = 0.6 oz pur e alcohol) Area Deprivation Index Answer Date Zeus rded National Score (1-100), lower number is lower ri sk 86 11/23/2022 State Score (1-10), lower number is lower risk N ot on file 11/23/2022 Data from: https://www.neighborhoodatlas.medicine.[employer] [facility].edu/. Last address used for calculation [address] 11/23/2022 Sex and Gender Information Value Date Recorded Sex Assigned at Not on file Legal Sex Male 12:29 PM EDT Gender Identity Not on file Sexual Orientation Not on file Last Filed Vital Signs Vital Sign Reading Time Taken Comments Blood Pressure 108/65 03/28/2022 11:11 AM EDT Pulse 80 03/28/2022 11:11 AM EDT Temperature 36.2 C (97.2 F) 10/17/2021 9:45 AM EST Respiratory Rate 16 10/17/2021 9:55 AM EST Oxygen Saturation 100% 03/28/2022 11:11 AM EDT Inhaled Oxygen Concentration - - Weight 90.3 kg (199 lb) 03/28/2022 11:11 AM EDT Height 180.3 cm (5' 11 ) 03/28/2022 11:11 AM EDT Body Mass Index 27.75 03/28/2022 11:11 AM EDT Plan of Treatment Health Maintenance Due Date Last Done Comments Peds To Adult Transition Ini tial Discussion 2010 Peds To Adult Transition Praveena ual Assessment 2012 HPV Vaccine (1 - Male 3-dose series) 2013 Anxiety Screening 2016 Depression Screening 2016 HIV Screening 2016 Hepatitis C Screening 2016 Covid-19 Vaccine (4 - 2023-2 5 season) 2024 11/03/2021, 12/08/2020, 11/17/2020 Influenza Vaccine (Season Ended) 2025 07/23/2021, 08/31/2020, 08/18/2019, Additional history exists DTaP,Tdap,Td Vaccine (8 - Td or Tdap) 08/05/2029 08/05/2019, 12/02/2017, 08/07/2011, Additional history exists Hepatitis B Vaccine Completed 07/18/2004, 02/08/2003, 1998, Additional history exists Insurance MEDICARE [place]ICAID [place]
--- OUTSIDE RECORDS SUMMARY | 2025-03-30 15:38 | XMS_ITS | Encounter Summary ---
Author Organization [facility] Address [address] [place] [address] Care Team Providers Care Byproducts Extractor Name Role Phone Benson Yun MD Primary Care Provider [phone] Benson Yun MD Primary Care Provider [phone] Benson Yun MD Unavailable Encounter Details Date Type Department Care Team (Late st Contact Info) Description 12/29/2023 Abstract [facility] [address] [place] [phone] Benson Yun MD [address] [place] [address] Social History Tobacco Use Types Packs/Day Years Used Date Smoking Tobacco: Never Alcohol Use Standard Drinks/Week Comments Not Currently 0 (1 standard drink = 0.6 oz pur e alcohol) Sex and Gender Information Value Date Recorded Sex Assigned at Not on file Legal Sex Male 12:16 PM EDT Gender Identity Not on file Sexual Orientation Not on file documented as of this encounter Plan of Treatment Upcoming Encounters Date Type Department Care Team (Late Contact Info) Description 07/15/2025 10:00 AM EDT Office Visit [facility] [address] [place] [phone] Benson Yun MD [address] [place] [address] documented as of this encounter Visit Diagnoses Not on filedocumented in this encounter Care Teams Byproducts Extractor Relationship Specialty Start Date End Date Benson Yun MD PCP - General Cardiology 04/02/23 01/06/24 Benson Yun MD [address] [place] [address] PCP - General Family Medicine 01/07/24 Benson Yun MD [address] [place] [address] PCP - ACO Reach 12/03/24 documented as of this encounter
[2025-03-30 16:40] LABS: Basophils Absolute Auto 0.1 10^3/uL (0.0-0.1); Eosinophils Absolute Auto 0.3 10^3/uL (0.0-0.7); Eosinophils Percent Auto 5.4 % (0.9-7.0); Hematocrit 39.2 % (42.0-54.0); Hemoglobin 11.6 g/dL (14.0-18.0); Immature Granulocytes Abs Auto 0.02 10^3/uL (0.00-0.03); Immature Granulocytes Pct Auto 0.3 % (0.0-0.5); Lymphocytes Absolute Auto 1.6 10^3/uL (1.2-3.8); Lymphocytes Percent Auto 26.2 % (20.5-60.0); Mean Corpuscular HGB Conc 29.6 g/dL (29.9-35.2); Mean Corpuscular Hemoglobin 21.2 pg (25.9-34.0); Mean Corpuscular Volume 71.7 fL (80.0-94.0); Mean Platelet Volume 10.7 fL (9.5-13.5); Monocytes Absolute Auto 0.7 10^3/uL (0.3-0.8); Monocytes Percent Auto 11.8 % (1.7-12.0); Neutrophils Absolute Auto 3.5 10^3/uL (1.4-6.5); Neutrophils Percent Auto 55.3 % (43.0-75.0); Platelet Count 304 10^3/uL (150-450); Red Blood Count 5.47 10^6/uL (4.70-6.10); Red Cell Distribution Width 19.3 % (11.0-15.0); White Blood Count 6.3 10^3/uL (4.0-11.0)
== END 2025-03-30 15:36 | disposition home or self-care (01) ==
LOC: LAB 15:36
PROVIDERS: PCP Family Medicine; Visit Provider Registered Nurse Psychiatric/Mental Health
DX: Z79.899 Other long term (current) drug therapy (principal)
CPT/HCPCS: 36415; 85025

== ENCOUNTER 2025-05-11 15:41 | Outpatient (OUT) | payer MEDICARE, MEDICAID, SELFPAY ==
--- OUTSIDE RECORDS SUMMARY | 2025-05-02 06:15 | XMS_ITS | Encounter Summary ---
Author Organization [facility] Address [id number] [address] [place] [address] Care Team Providers Care Dry Cell Sealer Name Role Phone Benson Yun MD Primary Care Provider [phone] Reason for Referral * Misc (Routine) - Authorized Specialty Diagnoses / Procedures Referred By Contac t Referred To Contact Procedures Discharge Follow-Up - Specify Details in Comments Gold Malloy DO [address] [place] [address] Phone: tel: fax: Referral ID Status Reason Start Date Expiration Date V isits Requested Visits Authorized [id number] Authorized 05/02/2025 05/02/2026 1 1 * Misc (Routine) - Authorized Specialty Diagnoses / Procedures Referred By Contac t Referred To Contact Diagnoses Proctitis Rectal bleeding Procedures What to Expect after Endoscopy Gold Malloy DO [address] [place] [address] Phone: tel: fax: Referral ID Status Reason Start Date Expiration Date V isits Requested Visits Authorized [id number] Authorized 05/02/2025 05/02/2026 1 1 Reason for Visit * Auth/Cert Specialty Diagnoses / Procedures Referred By Contac t Referred To Contact Diagnoses rectal bleeding-poor prep with first attempt Procedures WV COLONOSCOPY FLX DX W/COLLJ SPEC WHEN PFRMD COLONOSCOPY DIAGNOSTIC / SCREENING Gold Malloy DO [address] [place] [address] Phone: tel: fax: Referral ID Status Reason Start Date Expiration Date Visits Re quested Visits Authorized [id number] Encounter Details Date Type Department Care Team (Latest Contact Info) Description 05/02/2025 6:15 AM EDT - 05/02/2025 8:25 AM EDT Hospital Encounter [facility] - Surgery [address] [place] [phone] Gold Malloy DO [address] [place] [address] Proctitis (Primary Dx); Rectal bleeding Discharge Disposition: Home Social History Tobacco Use Types Packs/Day Years Used Date Smoking Tobacco: Never Smokeless Tobacco: Never Alcohol Use Standard Drinks/Week Comments Never 0 (1 standard drink = 0.6 oz pur e alcohol) [facility] Utilities Answer Date Recorded In the past 12 months has [employer], gas, oil, or water [employer] threatened to shut off services in your [...] Sign Reading Time Taken Comments Blood Pressure 110/73 05/02/2025 8:15 AM EDT Pulse 70 05/02/2025 8:15 AM EDT Temperature 36.2 C (97.2 F) 05/02/2025 6:34 AM EDT Respiratory Rate 16 05/02/2025 8:00 AM EDT Oxygen Saturation 100% 05/02/2025 8:15 AM EDT Inhaled Oxygen Concentration - - Weight 92.5 kg (204 lb) 05/02/2025 6:34 AM EDT Height 177.8 cm (5' 10 ) 05/02/2025 6:34 AM EDT Body Mass Index 29.27 05/02/2025 6:34 AM EDT documented in this encounter Discharge Instructions * Discharge Instructions* Bethanie Hernandez RN - 05/02/2025 7:45 AM EDT POST LOWER ENDOSCOPY INSTRUCTIONS Normal [...] or black tarry stools Temperature over 100 ° F. Abdominal discomfort that continues or increases [...] not make important personal or business decisions DIET Advance diet as tolerated Any questions regarding your care, please contact [facility] [phone] documented in this encounter Medications at Time [...] as needed for pain. 30 tablet 01/16/2023 loratadine (CLARITIN) 10 mg tablet Take 1 tablet (10 mg total) by mouth in the morning. polycarbophil (FIBERCON) 625 mg tablet Take 1 [...] 1 applicator before bedtime. 10 g 03/24/2025 documented as of this encounter H&P Notes * Gold Malloy DO - 05/02/2025 6:25 AM EDT HISTORY AND PHYSICAL INTERVAL NOTE: Rj Gonzales 2000 [id number] H&P updated. The patient was examined and this is a repeat colonoscopy due to poor bowel prep in Feb, 2025 Gold Malloy DO Source Note - Laila Gonzalez APRN-CONSULTING ACTUARY - 04/26/2025 11:30 AM EDT Images from the original note were not included. Chief Complaint: Rectal bleeding History of Present Illness Rj Gonzales is a 24 y.o. male who presents to the office today for rectal bleeding. He lives in [facility] and staff member is present with [...] appointment unrevealing.Would like to proceed with colonoscopy. Interval update 04/26/2025: He underwent colonoscopy on 03/24/2025. Nodular mucosa was found in the descending colon and hemorrhagic/inflamed mucosa was found in the rectum. Biopsies were negative. He is here to schedule repeat colonoscopy due to poor preparation. He continues to have rectal bleeding. Review of Systems Constitutional: Negative for fever [...] confusion. Past Medical History: Diagnosis Date Anxiety Bipolar disorder ([facility]) Cognitive impairment Panic disorder Schizoaffective disorder ([facility]) Schizophrenia ([facility]) Past Surgical History: Procedure Laterality Date ABDOMINAL SURGERY COLONOSCOPY DIAGNOSTIC / SCREENING N/A 03/24/2025 Performed by Gold Malloy DO at [facility] RECTOSIGMOIDECTOMY PERINEAL N/A 01/09/2024 Performed by Yessenia Silva MD at [facility] No Known Allergies Current Outpatient Medications: acetaminophen [...] mg total) before bedtime., Disp: , Rfl: hydrocortisone-pramoxine (PROCTOFOAM-HS) rectal foam, Insert 1 applicator into the rectum in the morning and 1 applicator before bedtime., Disp: 10 g, Rfl: 0 ibuprofen (MOTRIN) 800 mg tablet, Take 1 [...] before bedtime., Disp: , Rfl: peg 3350-sod sulf,nvda-wwm-sdj 178.7-7.3-0.5 gram recon soln, Take 1 kit [...] Risk (01/09/2024) Housing Instability Housing Instability: No Family History Problem Relation Age of Onset No Known Problems Mother No Known Problems Father Objective Physical Exam Constitutional: General: He is [...] Height 177.8 cm (5' 10 ), weight 94.3 kg (208 lb). Respiratory Source: No data recorded Admission Weight: Weight: 94.3 kg (208 lb) Labs Lab Results Component Value Date [...] water, fiber, MiraLax. Avoid straining. Schedule colonoscopy. 2 days of clear liquids. Evaluation included: Preparing to see the patient (e.g., review of tests) Obtaining and/or reviewing separately obtained history Performing a medically appropriate examination and/or evaluation Counseling and educating the patient/family/caregiver Referring and communicating with other health md do resident urgent care Rectal bleeding [K62.5] [facility] This note was created with the assistance of a speech recognition program. While intending to generate a timely document that accurately reflects the content of the visit, no guarantee can be provided that every grammatical or spelling mistake has been or will be identified or corrected. Thank you for your understanding. YAN Grigsby 04/26/25 1202 YAN Grigsby 05/02/25 0625 * Gold MalloyDO - 05/02/2025 6:24 AM EDT HISTORY AND PHYSICAL INTERVAL NOTE: Rj Gonzales 2000 [id number] H&P updated. The patient was examined and he had an attempted colonoscopy in February but had an inadequate bowel prep therefore this is a repeat scope hoping that the bowel prep is better. Gold Malloy DO Source Note - Laila Gonzalez APRN-CONSULTING ACTUARY - 04/26/2025 11:30 AM EDT Images from the original note were not included. Chief Complaint: Rectal bleeding History of Present Illness Rj Gonzales is a 24 y.o. male who presents to the office today for rectal bleeding. He lives in [facility] and staff member is present with [...] appointment unrevealing.Would like to proceed with colonoscopy. Interval update 04/26/2025: He underwent colonoscopy on 03/24/2025. Nodular mucosa was found in the descending colon and hemorrhagic/inflamed mucosa was found in the rectum. Biopsies were negative. He is here to schedule repeat colonoscopy due to poor preparation. He continues to have rectal bleeding. Review of Systems Constitutional: Negative for fever [...] confusion. Past Medical History: Diagnosis Date Anxiety Bipolar disorder ([facility]) Cognitive impairment Panic disorder Schizoaffective disorder ([facility]) [place] Past Surgical History: Procedure Laterality Date ABDOMINAL SURGERY COLONOSCOPY DIAGNOSTIC / SCREENING N/A 03/24/2025 Performed by Gold Malloy DO at [facility] RECTOSIGMOIDECTOMY PERINEAL N/A 01/09/2024 Performed by Yessenia Silva MD at [facility] No Known Allergies Current Outpatient Medications: acetaminophen [...] mg total) before bedtime., Disp: , Rfl: hydrocortisone-pramoxine (PROCTOFOAM-HS) rectal foam, Insert 1 applicator into the rectum in the morning and 1 applicator before bedtime., Disp: 10 g, Rfl: 0 ibuprofen (MOTRIN) 800 mg tablet, Take 1 [...] before bedtime., Disp: , Rfl: peg 3350-sod sulf,dafz-zpc-dmd 178.7-7.3-0.5 gram recon soln, Take 1 kit [...] Risk (01/09/2024) Housing Instability Housing Instability: No Family History Problem Relation Age of Onset No Known Problems Mother No Known Problems Father Objective Physical Exam Constitutional: General: He is [...] Height 177.8 cm (5' 10 ), weight 94.3 kg (208 lb). Respiratory Source: No data recorded Admission Weight: Weight: 94.3 kg (208 lb) Labs Lab Results Component Value Date [...] water, fiber, MiraLax. Avoid straining. Schedule colonoscopy. 2 days of clear liquids. Evaluation included: Preparing to see the patient (e.g., review of tests) Obtaining and/or reviewing separately obtained history Performing a medically appropriate examination and/or evaluation Counseling and educating the patient/family/caregiver Referring and communicating with other health md do resident urgent care Rectal bleeding [K62.5] YAN GRIGSBY [facility] General Surgery [facility] This note was created with the assistance of a speech recognition program. While intending to generate a timely document that accurately reflects the content of the visit, no guarantee can be provided that every grammatical or spelling mistake has been or will be identified or corrected. Thank you for your understanding. YAN Grigsby 04/26/25 1202 YAN Grigsby 05/02/25 0625 documented in this encounter Plan of Treatment Not on file documented as of this encounter Goals Goal Patient Goal Type Associated Problems Recent Progress Patient-Stated? Author home General Yes Stefania Armijo, RN Note: Evaluation of progress towards goal: Soren Conner, states back to [facility]. documented as of this encounter Procedures Procedure Name Priority Date/Time Associated Diagnosis Comments SURGICAL PATHOLOGY Routine 05/02/2025 7: 37 AM EDT WV COLONOSCOPY FLX DX W/COLLJ SPEC WHEN PFRMD 05/02/2025 7:29 AM EDT rectal bleeding-poor prep with first attempt COLONOSCOPY 05/02/2025 7:08 AM EDT PROVATION COLONOSCOPY Routine 05/02/2025 6:24 AM EDT documented in this encounter Results * Surgical Pathology (05/02/2025 7:37 AM EDT) Case Report Surgical Pathology Report Case: [id number] Authorizing Provider: Gold Malloy DO Collected: 05/02/2025 0737 Ordering Location: [facility] Received: 05/02/[address] [place] [address] - Surgery Pathologist: Bruce Maya MD Specimen: Rectum, Rectum Biopsy X4 05/10/2025 5:28 PM EDT [facility] Final Diagnosis Rectum, biopsy: Acute inflammation with extensive ulceration. GMS special stain is negative for fungal organisms. CMV immunostain is negative. HSV immunostain is negative. 05/10/2025 5:28 PM EDT [facility] at 1728 EDT Gross Description Received in formalin labeled FILEMON, rectum biopsy x 4 are multiple encarnacion feathery tissue bits mixed with scant vegetative material, 0.9 x 1.1 x 0.1 cm in aggregate. The specimen is filtered and submitted entirely in one cassette. (1,ns,[id number] , m1) SW 05/10/2025 5:28 PM EDT [facility] Embedded Images 05/10/2025 5:28 PM EDT [facility] Tissue Rectum structure / Unknown 05/02/2025 7:37 AM EDT 05/02/2025 12:00 PM EDT Comment:Pre-op diagnosis: rectal bleeding-poor prep with first attempt us Gold Malloy DO PATHOLOGY/CYTOLOGY ORDERABL ES Final Result [facility] [address] [place] [address], * Colonoscopy (05/02/2025 7:08 AM EDT) 05/02/2025 7:08 AM EDT Narrative PM CARDIOVASCULAR - 05/02/2025 7:45 AM EDT [facility] Patient Name: Rj Gonzales Procedure Date No Time: 05/02/2025 CSN : [id number] Date of : 2000 Admit Type: Outpatient Age: 24 Room: [place] [address] Gender: Male Note Status: Finalized Attending MD: Gold Malloy DO, Procedure: Colonoscopy Indications: Rectal bleeding Providers: Gold Malloy DO Referring MD: Gold Malloy DO Medicines: Propofol per Anesthesia Complications: No immediate complications. Procedure: After I obtained informed consent, the scope was passed under direct vision. Throughout the procedure, the patient's blood pressure, pulse, and oxygen saturations were monitored continuously. The [place] [id number] #[id number] ADULT COLONOSCOPE was introduced through the anus with the intention of advancing to the cecum. The scope was advanced to the splenic flexure before the procedure was aborted. Medications were given. The colonoscopy was performed without difficulty. The patient tolerated the procedure well. The quality of the bowel preparation was unsatisfactory. Findings: The digital exam findings include Lax anal sphincter tone. Pertinent negatives include no palpable rectal lesions. A localized area of moderately congested, erythematous, eroded, friable (with contact bleeding), inflamed and ulcerated mucosa was found in the mid rectum. Biopsies were taken with a cold forceps for histology. The exam was otherwise without abnormality. Estimated Blood Loss: Estimated blood loss was minimal. Impression: - Preparation of the colon was unsatisfactory. - Lax anal sphincter tone found on digital exam. - Congested, erythematous, eroded, friable (with contact bleeding), inflamed and ulcerated mucosa in the mid rectum. Biopsied. - The examination was otherwise normal. Recommendation: - Discharge patient to home. - High fiber diet for the rest of the patient's life. - Repeat colonoscopy in 3 months because the bowel preparation was poor. - Return to my office PRN. Procedure Code(s): --- Professional --- 53164, 52, Colonoscopy, flexible; with biopsy, single or multiple Diagnosis Code(s): --- Professional --- K62.5, Hemorrhage of anus and rectum K62.89, Other specified diseases of anus and rectum K62.6, Ulcer of anus and rectum CPT copyright 2022 [employer]. All rights reserved. The codes documented in this report are preliminary and upon film developer review may be revised to meet current compliance requirements. DO Gold Cui DO 05/02/2025 7:45:03 AM Number of Addenda: 0 Note Initiated On: 05/02/2025 7:08 AM Procedure Note Gold Malloy DO - 05/02/2025 [facility] Patient Name: Rj Gonzales Procedure Date No Time: 05/02/2025 CSN : [id number] Date of : 2000 Admit Type: Outpatient Age: 24 Room: [place] [address] Gender: Male Note Status: Finalized Attending MD: Gold Malloy DO, Procedure: Colonoscopy Indications: Rectal bleeding Providers: Gold Malloy DO Referring MD: Gold Malloy DO Medicines: Propofol per Anesthesia Complications: No immediate complications. Procedure: After I obtained informed consent, the scope was passed under direct vision. Throughout theprocedure, the patient's blood pressure, pulse, and oxygen saturations were monitored continuously. The[employer]ngroo [id number] #[id number] ADULT COLONOSCOPE was introduced through the anus with the intention of advancing to the cecum. The scope was advanced to the splenic flexure before the procedure was aborted.Medications were given. The colonoscopy was performed without difficulty. The patient tolerated the procedurewell. The quality of the bowel preparation was unsatisfactory. Findings: The digital exam findings include Lax anal sphincter tone. Pertinent negatives include no palpable rectal lesions. A localized area of moderately congested, erythematous, eroded,friable (with contact bleeding), inflamed and ulcerated mucosa was found inthe mid rectum. Biopsies were taken with a cold forceps for histology. The exam was otherwise without abnormality. Estimated Blood Loss: Estimated blood loss was minimal. Impression: - Preparation of the colon was unsatisfactory. - Lax anal sphincter tone found on digital exam. - Congested, erythematous, eroded, friable (with contact bleeding), inflamed and ulcerated mucosa in the mid rectum. Biopsied. - The examination was otherwise normal. Recommendation: - Discharge patient to home. - High fiber diet for the rest of the patient'slife. - Repeat colonoscopy in 3 months because the bowel preparation was poor. - Return to my office PRN. Procedure Code(s): --- Professional --- 67089, 52, Colonoscopy, flexible; with biopsy,single or multiple Diagnosis Code(s): --- Professional --- K62.5, Hemorrhage of anus and rectum K62.89, Other specified diseases of anus and rectum K62.6, Ulcer of anus and rectum CPT copyright 2022 [employer]. All rights reserved. The codes documented in this report are preliminary and upon film developer reviewmay be revised to meet current compliance requirements. DO Gold Cui DO 05/02/2025 7:45:03 AM Number of Addenda: 0 Note Initiated On: 05/02/2025 7:08 AM Gold Malloy DO GI PROCEDURE ORDERABLES Fin al Result PM CARDIOVASCULAR * Colonoscopy Report (05/02/2025 6:24 AM EDT) Narrative SYSTEMGENERATED, DOCUMENTATION - 05/02/2025 6:24 AM EDT This order has been auto-finalized [...] rectum and anus documented in this encounter Administered Medications Inactive Administered Medications - up to 3 most recent administrations Medication Order MAR Action Action Date Dose Rate Site lactated ringers infusion 100 mL/hr, intravenous, Continuous, Starting on Fri05/02/25 at 0630, For 1 day, Pre-op, If fluid restriction is not indicated, infuse at a rate up to 5 mL/kg/hr not to exceed the total replacement volume (2 ml/kg/hr) from the time NPO status was initiated. Continued by Anesthesia 05/02/2025 7:29 AM EDT 100 mL/hr New Bag 05/02/2025 6:44 AM EDT 100 mL/hr 100 mL/hr documented in this encounter Active and Recently Administered Medications Times are shown in EDT. Continuous Medication Order 04/30/2025 05/01/2025 05/02/2025 lactated ringers infusion (CANCELED) 100 mL/hr, intravenous, Continuous, Starting on Fri05/02/25 at 0630, For 1 day, Pre-op, If fluid restriction is not indicated, infuse at a rate up to 5 mL/kg/hr not to exceed the total replacement volume (2 ml/kg/hr) from the time NPO status was initiated. 0644 (New Bag - Prov ider: Bethanie Hernandez RN)0729 (Continued by Anesthesia - Provider: Caren Rivera APRN-SAMAN)0824 (Due: Order Ending - Provider: Automatic Transfer Provider - Comment: [Order ends at this time. Document the following action when infusion is complete: Stop Bag]) documented in this encounter Care Teams Dry Cell Sealer Relationship Specialty Start Date End Date Benson Yun MD PCP - General Family Medicine 03/14/25 documented as of this encounter
--- OUTSIDE RECORDS SUMMARY | 2025-05-02 07:29 | XMS_ITS | Encounter Summary ---
Author Organization [facility] Address [facility]-[id number] [address] [place] [address] Care Team Providers Care Forest Economist Name Role Phone Benson Yun MD Primary Care Provider [phone] Reason for Visit * Auth/Cert Specialty Diagnoses / Procedures Referred By Marcie maxwell Referred To Contact Diagnoses rectal bleeding-poor prep with first attempt Procedures [place] COLONOSCOPY FLX DX W/COLLJ SPEC WHEN PFRMD COLONOSCOPY DIAGNOSTIC / SCREENING Gold Malloy DO [address] [place] [address] Phone: tel: fax: Referral ID Status Reason Start Date Expiration Date Visits Re quested Visits Authorized [id number] Encounter Details Date Type Department Care Team (Late st Contact Info) Description 05/02/2025 7:29 AM EDT Anesthesia Event [facility] - Surgery [address] [place] [address] Timbo Ceballos DO [address] [place] [address] Anesthesia Record Procedure Summary Procedure Name Responsible Anesthesiologist Anesthesia Start Time Anesthesia Stop Time COLONOSCOPY DIAGNOSTIC / SCREENING (Anus) Timbo Ceballos DO 05/02/25 0729 05/02/25 0741 Events Date Time Event Comment 05/02/2025 0700 0729 An Start 0729 An Start Data 0730 An Induction The patient was reevaluated immediately before moderate or deep sedation use and before anesthesia induction. 0730 Patient Ready for Surgeon 0730 Position 0740 an stop data 0740 Transport/Transfer From the OR 0740 Handoff to RN Transported to :Phase II, Spontaneous Ventilation, O2 per Room Air, 0 LPM Pt. Tolerated procedure well, vital signs stable and document on nursing record Care transferred to receiving RN 0741 An Stop Meds Name Total propofol (DIPRIVAN) injection 300 mg lidocaine (XYLOCAINE) injection 2% 100 m g lactated ringers infusion 0 mL * Agents No agents on file. * Blood No blood administrations on file. Lines, Drains, and Airways Type Details Placement Removal Wound 01/09/24; 0433; Inci margarito; Buttocks; N/A; SPONGE FLF 4X4IN BLK2 CTTN ABS 12 PLY LF STRL, PAD ABD 9X5IN ABS NWVN HDRPHB BCK SL EDG CLU STRL LF RPL [id number] 01/09/24 0433 by Zahira Carson RN Peripheral IV Placement Date: 05/20; Placement Time: 643; Catheter Size: 22 G; Orientation: Posterior, Right; Location: Hand; Site Prep: Chlorhexadine and isopropyl alcohol; Inserted by: Bethanie Hernandez RN; Insertion Attempts: 1; Patient Tolerance: Tolerated well; Removal Date: 05/02/25; Removal Time: 81905/02/25 0644 by Bethanie Hernandez RN 05/02/25 08 by Razia Dueñas RN documented in this encounter Social History Tobacco Use Types Packs/Day Years Used Date Smoking Tobacco: Never Smokeless Tobacco: Never Alcohol Use Standard Drinks/Week Comments Never 0 (1 standard drink = 0.6 oz pur e alcohol) [facility] Utilities Answer Date Recorded In the past 12 months has [employer], [employer], oil, or water [employer] threatened to shut off services in your [...] OR Notes * Anesthesia Postprocedure Evaluation - Timbo Ceballos DO - 05/02/2025 8:00 AM EDT ANESTHESIA POST-EVALUATION [facility] Procedure Summary Date: 05/02/25 Room / Location: [facility] OR [address] [place] [address] SURGERY Anesthesia Start: 728 Anesthesia Stop: 740 Procedure: COLONOSCOPY DIAGNOSTIC / SCREENING (Anus) Diagnosis: (rectal bleeding-poor prep with first attempt) Surgeons: Gold Malloy DO Responsible Provider: Timbo Ceballos DO Anesthesia Type: MAC ASA Status: 3 Vitals: 05/02/25 0654 BP: 117/74 Pulse: 75 Resp: 13 Temp: SpO2: 100% Patient Evaluated: Phase II Patient Participation: Complete - patient participated Patient Level of Consciousness: Awake and Alert Pain Score: 2 Pain Management: Adequate Airway Patency: Patent Anesthetic Complications: No Cardiovascular Status: Hemodynamically Stable Respiratory Status: Stable/Baseline Post-op Hydration: Euvolemic Final Anesthesia Type: MAC No notable events documented. * Anesthesia Preprocedure Evaluation - Timbo Ceballos DO - 04/11/2025 7:27 AM EDT Images from the original note were not included. ANESTHESIA PRE-PROCEDURE EVALUATION [facility] Procedure(s): COLONOSCOPY DIAGNOSTIC / SCREENING ANESTHESIA [...] Anesthetic risks, plan and alternatives discussed with Patient. Plan discussed with SUPERVISOR HARD CANDY. Airway Management: Nasal Cannula Transfer to Phase II PONV: Low Risk [...] 176.8 mol/L Patient Active Problem List Diagnosis • Rectal prolapse documented in this encounter Plan [...] 6:44 AM EDT 100 mL/hr 100 mL/hr lidocaine (XYLOCAINE) 20 mg/mL (2 %) injection intravenous, As needed, Starting on Fri05/02/25 at 0730, Anesthesia Intra-op Given 05/02/2025 7:32 AM EDT 50 mg Given 05/02/2025 7:30 AM EDT 50 mg propofoL (DIPRIVAN) infusion intravenous, As needed, Starting on Fri05/02/25 at 0730, Anesthesia Intra-op Given 05/02/2025 7:38 AM EDT 50 mg Given 05/02/2025 7:36 AM EDT 50 mg Given 05/02/2025 7:34 AM EDT 50 mg documented in this encounter Care Teams Forest Economist Relationship Specialty Start Date End Date Benson Yun MD PCP - General Family Medicine 03/14/25 documented as of this encounter
--- OUTSIDE RECORDS SUMMARY | 2025-05-02 07:30 | XMS_ITS | Encounter Summary ---
Author Organization [facility] tem Address [facility]-[id number] [address] [place] [address] Care Team Providers Care Freight Checker Name Role Phone Benson Yun MD Primary Care Provider [phone] Reason for Visit * Auth/Cert Specialty Diagnoses / Procedures Referred By Marcie maxwell Referred To Contact Diagnoses rectal bleeding-poor prep with first attempt Procedures [place] COLONOSCOPY FLX DX W/COLLJ SPEC WHEN PFRMD COLONOSCOPY DIAGNOSTIC / SCREENING Gold Malloy DO [address] [place] [address] Phone: tel: fax: Referral ID Status Reason Start Date Expiration Date Visits Re quested Visits Authorized [id number] Encounter Details Date Type Department Care Team (Late st Contact Info) Description 05/02/2025 7:30 AM EDT - 05/02/2025 8:00 AM EDT Surgery [facility] - Surgery [address] [place] [address] Gold Malloy DO [address] [place] [address] COLONOSCOPY DIAGNOSTIC / SCREENING [34517 (CPT )] Surgery Details Date/Time Status Location OR Service Patient Class Case Cl ass Case Type Trauma Case? 05/02/2025 7:30 AM Posted [facility] OR [address] [place] [address] Outpatient Surgery Elective Panel 1 Procedure LRB Anes Op Region Wound Class Comments COLONOSCOPY DIAGNOSTIC / SCREENING N/A Monitored Anesthesia Care Anus Clean Contaminated Surgeon Surgeon Role Service Panel Gold Malloy, DO Primary General 1 documented in this encounter Social History Tobacco Use Types Packs/Day Years Used Date Smoking Tobacco: Never Smokeless Tobacco: Never Alcohol Use Standard Drinks/Week Comments Never 0 (1 standard drink = 0.6 oz pur e alcohol) [facility] Utilities Answer Date Recorded In the past [...] Sign Reading Time Taken Comments Blood Pressure 121/81 05/02/2025 8:00 AM EDT Pulse 63 05/02/2025 8:00 AM EDT Temperature 36.2 C (97.2 F) 05/02/2025 6:34 AM EDT Respiratory Rate 16 05/02/2025 8:00 AM EDT Oxygen Saturation 100% 05/02/2025 8:00 AM EDT Inhaled Oxygen Concentration - - [...] Any questions regarding your care, please contact [facility] [phone] documented in this encounter Medications at Time [...] AND PHYSICAL INTERVAL NOTE: Rj Gonzales 2000 [id number] H&P updated. The patient was examined and this is a repeat colonoscopy due to poor bowel prep in Feb, 2025 Gold Malloy DO Source Note - Jan Carmona APRN-HUSAM - 04/26/2025 11:30 AM EDT Images from the original note were not included. Chief Complaint: Rectal bleeding History of Present Illness Rj Gonzales is a 24 y.o. male who presents to the office today for rectal bleeding. He lives in [facility] and staff member is present with [...] Medical History: Diagnosis Date Anxiety Bipolar disorder ([facility]) Cognitive impairment Panic disorder Schizoaffective disorder ([facility]) Schizophrenia ([facility]) Past Surgical History: Procedure Laterality Date ABDOMINAL SURGERY COLONOSCOPY DIAGNOSTIC / SCREENING N/A 03/24/2025 Performed by Gold Malloy DO at [facility] RECTOSIGMOIDECTOMY PERINEAL N/A 01/09/2024 Performed by Yessenia Silva MD at [facility] No Known Allergies Current Outpatient [...] before bedtime., Disp: , Rfl: peg 3350-sod sulf,vbph-wqs-rxe 178.7-7.3-0.5 gram recon soln, Take 1 kit [...] Referring and communicating with other health child care attendant school Rectal bleeding [K62.5] YAN GRIGSBY [facility] General Surgery [place]erkimer This note was created with the assistance of a speech recognition program. While intending to generate a timely document that accurately reflects the content of the visit, no guarantee can be provided that every grammatical or spelling mistake has been or will be identified or corrected. Thank you for your understanding. YAN Grigsby 04/26/25 1202 YAN Grigsby 05/02/25 0625 * Gold Malloy DO - 05/02/2025 6:24 AM EDT HISTORY AND PHYSICAL INTERVAL NOTE: Rj Gonzales 2000 [id number] H&P updated. The patient was examined and he had an attempted colonoscopy in February but had an inadequate bowel prep therefore this is a repeat scope hoping that the bowel prep is better. Gold Malloy DO Source Note - YAN Grigsby - 04/26/2025 11:30 AM EDT Images from the original note were not included. Chief Complaint: Rectal bleeding History of Present Illness Rj Gonzales is a 24 y.o. male who presents to the office today for rectal bleeding. He lives in [place] [facility] [place] [facility] and staff member is present with [...] Medical History: Diagnosis Date Anxiety Bipolar disorder ([facility]) Cognitive impairment Panic disorder Schizoaffective disorder ([facility]) Schizophrenia ([facility]) Past Surgical History: Procedure Laterality Date ABDOMINAL SURGERY COLONOSCOPY DIAGNOSTIC / SCREENING N/A 03/24/2025 Performed by Gold Malloy DO at [facility] RECTOSIGMOIDECTOMY PERINEAL N/A 01/09/2024 Performed by Yessenia Silva MD at [facility] No Known Allergies Current Outpatient [...] before bedtime., Disp: , Rfl: peg 3350-sod sulf,akfy-hhb-rsf 178.7-7.3-0.5 gram recon soln, Take 1 kit [...] Referring and communicating with other health child care attendant school Rectal bleeding [K62.5] JAN CARMONA, ORE DIGGER-ASSISTANT IMPORT MANAGER [facility] [place] This note was created with the assistance [...] to fpc. documented as of this encounter Procedures Procedure [...] EDT) Case Report Surgical Pathology Report Case: [id number] Authorizing Provider: Gold Malloy DO Collected: 05/02/2025 0737 Ordering Location: [facility] Received: 05/02/[address] [place] [address] - Surgery Pathologist: Bruce Maya MD Specimen: Rectum, Rectum Biopsy X4 05/10/2025 5:28 PM EDT [facility] Final Diagnosis Rectum, biopsy: Acute inflammation with extensive ulceration. GMS special stain is negative for fungal organisms. CMV immunostain is negative. HSV immunostain is negative. 05/10/2025 5:28 PM EDT [facility] at 1728 EDT Gross Description Received in formalin labeled FILEMON, rectum biopsy x 4 are multiple encarnacion feathery tissue bits mixed with scant vegetative material, 0.9 x 1.1 x 0.1 cm in aggregate. The specimen is filtered and submitted entirely in one cassette. (1,ns,[id number] , m1) SW 05/10/2025 5:28 PM EDT [facility] Embedded Images 05/10/2025 5:28 PM EDT [facility] Tissue Rectum structure / Unknown 05/02/2025 7:37 AM EDT 05/02/2025 12:00 PM EDT Comment:Pre-op diagnosis: rectal bleeding-poor prep with first attempt Gold Malloy DO PATHOLOGY/CYTOLOGY ORDERABL ES Final Result [facility] [address] [place] [address], [place] [phone] * Colonoscopy (05/02/2025 7:08 AM EDT) 05/02/2025 7:08 AM EDT Narrative PM CARDIOVASCULAR - 05/02/2025 7:45 AM EDT [facility] Patient Name: Rj Gonzales Procedure Date No Time: 05/02/2025 CSN : [id number] Date of : 2000 Admit Type: Outpatient Age: 24 Room: [place] [address] Gender: Male Note Status: Finalized Attending MD: Gold Malloy DO, Procedure: Colonoscopy Indications: Rectal bleeding Providers: Gold Malloy DO Referring MD: Gold Malloy DO Medicines: Propofol per Anesthesia Complications: No immediate complications. Procedure: After I obtained informed consent, the scope was passed under direct vision. Throughout the procedure, the patient's blood pressure, pulse, and oxygen saturations were monitored continuously. [facility] [id number] #[id number] ADULT COLONOSCOPE was introduced through the anus [...] office PRN. Procedure Code(s): --- Professional --- 53624, 52, Colonoscopy, flexible; with biopsy, single or multiple Diagnosis Code(s): --- Professional --- K62.5, Hemorrhage of anus and rectum K62.89, Other specified diseases of anus and rectum K62.6, Ulcer of anus and rectum CPT copyright 2022 [employer]. All rights reserved. The codes documented in this report are preliminary and upon parts designer review may be revised to meet current compliance requirements. DO Gold Cui DO 05/02/2025 7:45:03 AM Number of Addenda: 0 Note Initiated On: 05/02/2025 7:08 AM Procedure Note Gold Malloy DO - 05/02/2025 [facility] Patient Name: Rj Gonzales Procedure Date No Time: 05/02/2025 CSN : [id number] Date of : 2000 Admit Type: Outpatient Age: 24 Room: [place] [address] Gender: Male Note Status: Finalized Attending MD: Gold Malloy DO, Procedure: Colonoscopy Indications: Rectal bleeding Providers: Gold Malloy DO Referring MD: Gold Malloy DO Medicines: Propofol per Anesthesia Complications: No immediate complications. Procedure: After I obtained informed consent, the scope was passed under direct vision. Throughout theprocedure, the patient's blood pressure, pulse, and oxygen saturations were monitored continuously. [employer] [id number] #[id number] ADULT COLONOSCOPE was introduced through the anus [...] office PRN. Procedure Code(s): --- Professional --- 52595, 52, Colonoscopy, flexible; with biopsy,single or multiple Diagnosis Code(s): --- Professional --- K62.5, Hemorrhage of anus and rectum K62.89, Other specified diseases of anus and rectum K62.6, Ulcer of anus and rectum CPT copyright 2022 [employer]. All rights reserved. The codes documented in this report are preliminary and upon parts designer reviewmay be revised to meet current compliance requirements. DO Gold Cui DO 05/02/2025 7:45:03 AM Number of Addenda: 0 Note Initiated On: 05/02/2025 7:08 AM Gold E Grillis DO GI PROCEDURE ORDERABLES Fin al Result [...] Bag]) documented in this encounter Care Teams Freight Checker Relationship Specialty Start Date End Date Benson Yun MD PCP - General Family Medicine 03/14/25 documented as of this encounter
--- OUTSIDE RECORDS SUMMARY | 2025-05-11 15:44 | XMS_ITS | Encounter Summary ---
Author Organization [facility] Address [facility]-[id number] [address] [place] [address] Care Team Providers Care Infantry Senior Sergeant Name Role Phone Benson Yun MD Primary Care Provider [phone] Encounter Details Date Type Department Care Team (Latest Contact Info) Description 05/02/2025 Travel Social History Tobacco Use Types Packs/Day Years Used Date Smoking Tobacco: Never Smokeless Tobacco: Never Alcohol Use Standard Drinks/Week Comments Never 0 (1 standard drink = 0.6 oz pur e alcohol) [facility] Utilities Answer Date Recorded In the past 12 months has e [employer], gas, oil, or water company threatened to [...] as of this encounter Plan of Treatment Not on file documented as of this encounter Goals Goal Patient Goal Type Associated Problems Recent Progress Patient-Stated? Author home General Yes Stefania Armijo RN Note: Evaluation of progress towards goal: Guardian, Soren, states back to senior care. documented as of this encounter Visit Diagnoses Not on filedocumented in this encounter Care Teams Infantry Senior Sergeant Relationship Specialty Start Date End Date Benson Yun MD PCP - General Family Medicine 03/14/25 documented as of this encounter
--- OUTSIDE RECORDS SUMMARY | 2025-05-11 15:44 | XMS_ITS | Encounter Summary ---
Author Organization [facility] [employer] [facility] Address [facility]-[id number] [address] [place] [address] Care Team Providers Care Laboratory Tester Name Role Phone Benson Yun MD Primary Care Provider [phone] Encounter Details Date Type Department Care Team (Late st Contact Info) Description 05/11/2025 Results Follow-Up [facility] - Surgery [address] [place] [address] Gold Malloy, DO [facility] [place], [place] [id number] Surgical Pathology Social History Tobacco Use Types Packs/Day Years Used Date Smoking Tobacco: Never Smokeless Tobacco: Never Alcohol Use Standard Drinks/Week Comments Never 0 (1 standard drink = 0.6 oz pur e alcohol) [facility] Utilities Answer Date Recorded In the past 12 months has [employer], gas, oil, or water [employer] threatened to shut off services in your [...] encounter Miscellaneous Notes * Telephone Encounter - Audrey Huntley CMA - 05/11/2025 7:20 AM EDT ----- Message from Gold Malloy DO sent at 05/11/2025 7:20 AM EDT ----- Please call detention attendants and let him know that he has a acute inflammation of the extensive ulceration and he should continue the Proctofoam HC as prescribed. Thanks, Dr. Wheeler ----- Message ----- From: Lab, Background User Sent: 05/10/2025 5:28 PM EDT To: Gold Malloy DO * Telephone Encounter - Audrey Huntley CMA - 05/11/2025 7:20 AM EDT Spoke with patient's menagerie caretaker Alivia regarding pathology results. Alivia verbally understood and questions were answered to the best of my ability. Alivia would like to know what is causing this inflammation. I informed Alivia I would send Dr. Malloy her question and call her back as soon as I received results. Will have Laila our MORTGAGE FIELD INSPECTOR send another prescription of Proctofoam. Informed Alivia that any refills will need to go through Dr. Yun's office. documented in this encounter Plan of Treatment Not on file documented as of this encounter Goals Goal Patient Goal Type Associated Problems Recent Progress Patient-Stated? Author home General Yes Stefania Armijo, RN Note: Evaluation of progress towards goal: Soren Conner, states back to detention. documented as of this encounter Visit Diagnoses Not on filedocumented in this encounter Care Teams Laboratory Tester Relationship Specialty Start Date End Date Benson Yun MD PCP - General Family Medicine 03/14/25 documented as of this encounter
--- OUTSIDE RECORDS SUMMARY | 2025-05-11 15:44 | XMS_ITS | Encounter Summary ---
Author Organization [facility] Address [address] [place] [address] Care Team Providers Care Roller Name Role Phone Benson Yun MD Primary Care Provider [phone] Benson Yun MD Primary Care Provider [phone] Benson Yun MD Unavailable Encounter Details Date Type Department Care Team (Late st Contact Info) Description 05/12/2023 Abstract [facility] [address] [place] [address] Caroline Martínez NP Social History Tobacco Use [...] Visit [facility] [address] [place] [phone] Benson Yun MD [address] [place] [address] documented as of this encounter Visit Diagnoses Not on filedocumented in this encounter Care Teams Roller Relationship Specialty Start Date End Date Benson Yun MD PCP - General Cardiology 04/02/23 01/06/24 Benson Yun MD [address] [place] [address] PCP - General Family Medicine 01/07/24 Benson Yun MD [address] [place] [address] PCP - ACO Reach 12/03/24 documented as of this encounter
--- OUTSIDE RECORDS SUMMARY | 2025-05-11 15:44 | XMS_ITS | Encounter Summary ---
Author Organization [facility] tem Address [facility]-[id number] [address] [place] [address] Care Team Providers Care Campus Administrator Name Role Phone Benson Yun MD Primary Care Provider [phone] Reason for Referral * Medication Prior Authorization - Pending Review Specialty Diagnoses / Procedures Referred By Marcie maxwell Referred To Contact Diagnoses Proctitis Laila Gonzalez APRN-CNP [address] [place] [address] Phone: tel: fax: Referral ID Status Reason Start Date Expiration Date V isits Requested Visits Authorized [id number] Pending Review 1 1 Encounter Details Date Type Department Care Team (Late st Contact Info) Description 05/11/2025 Orders Only [facility] General Surgery [address] [place] [address] Laila Gonzalez APRN-CNP [address] [place] [address] Proctitis Social History Tobacco Use Types Packs/Day Years Used Date Smoking Tobacco: Never Smokeless Tobacco: Never Alcohol Use Standard Drinks/Week Comments Never 0 (1 standard drink = 0.6 oz pur e alcohol) [facility] Utilities Answer Date Recorded In the past 12 months has [employer], gas, oil, or water company threatened to [...] RN Note: Evaluation of progress towards goal: ArleenanSoren states back to intermediate. documented as of this encounter Visit Diagnoses Diagnosis Proctitis Other specified disorder of rectum and anus documented in this encounter Care Teams Campus Administrator Relationship Specialty Start Date End Date Benson Yun MD PCP - General Family Medicine 03/14/25 documented as of this encounter
--- OUTSIDE RECORDS SUMMARY | 2025-05-11 15:44 | XMS_ITS | Encounter Summary ---
Author Organization [facility] [facility] tem Address [id number] [address] [place] [address] Care Team Providers Care Evaluator Transfer Students Name Role Phone Benson Yun MD Primary Care Provider [phone] Encounter Details Date Type Department Care Team (Late st Contact Info) Description 01/12/[address] [facility] [address] [address] Brothers, Ligia Bridges Social History Tobacco Use Types Packs/Day Years Used Date Smoking Tobacco: Never Smokeless Tobacco: Never Alcohol Use Standard Drinks/Week Comments Never 0 (1 standard drink = 0.6 oz pur e alcohol) [facility] Utilities Answer Date Recorded In [...] towards goal: Guardian, Soren, states back to fdc. documented as of this encounter Visit Diagnoses Not on filedocumented in this encounter Care Teams Evaluator Transfer Students Relationship Specialty Start Date End Date Benson Yun MD PCP - General Family Medicine 03/14/25 documented as of this encounter
--- OUTSIDE RECORDS SUMMARY | 2025-05-11 15:44 | XMS_ITS | Encounter Summary ---
Author Organization [employer] [facility] tem Address [id number] [address] [place] [address] Care Team Providers Care Vice President Of Brand Management Name Role Phone Benson Yun MD Primary Care Provider [phone] Encounter Details Date Type Department Care Team ([facility] st Contact Info) Description 03/29/2025 Telephone [facility] [address] [phone] Gold Malloy DO [address] [place] [address] Social History Tobacco Use Types Packs/Day Years Used Date Smoking Tobacco: Never Smokeless Tobacco: Never Alcohol Use Standard Drinks/Week Comments Never 0 (1 standard drink = 0.6 oz pur e alcohol) [facility] Utilities Answer Date Recorded In the past 12 months has [employer], [employer], oil, or water [employer] threatened to shut off services in your [...] EDT Janet was called and spoke with day care director / Alivia and we scheduled his H & P office visit and scheduled a repeat colonoscopy per Dr. Malloy. documented in this encounter Plan of Treatment Not on file documented as of this encounter Goals Goal Patient Goal Type Associated Problems Recent Progress Patient-Stated? Author home General Yes Stefania Armijo RN Note: Evaluation of progress towards goal: Guardian, Soren, states back to usp. documented as of this encounter Visit Diagnoses Not on filedocumented in this encounter Care Teams Vice President Of Brand Management Relationship Specialty Start Date End Date Benson Yun MD PCP - General Family Medicine 03/14/25 documented as of this encounter
--- OUTSIDE RECORDS SUMMARY | 2025-05-11 15:44 | XMS_ITS | Clinical Summary ---
Author Organization [facility] Address [id number] [address] [place] [address] Care Team Providers Care Health Counselor Name Role Phone Benson Yun MD Primary Care Provider [phone] Allergies No known active allergies Medications benztropine [...] and 1 applicator before bedtime. 10 g 1 05/11/20 25 Active hydrocortisone-p ramoxine (PROCTOFOAM-HS) rectal foamIndications: Proctitis Insert 1 applicator into the rectum in the morning and 1 applicator before bedtime. 10 g 03/24/20 25 025 Discontinu ed(Reorder ) peg 3350-sod sulf,chlr-pot-ma g 178.7-7.3-0.5 gram recon solnIndications: Rectal bleeding Take 1 kit by mouth in the morning for 1 dose. Please see instructional sheet given by physicians office. 1 each 04/26/20 25 025 Active Problems Problem Noted Date Diagnosed Date Rectal prolapse 01/09/2024 Encounters Date Type Department Care Team Description 05/11/2025 [facility] [address] [place] [address] Laila Gonzalez, INTERIOR BLOCK WIRER-OPERATIONS RESEARCH MANAGER Proctitis 05/11/2025 Results Follow-Up [facility] - Surgery [address] [place] [address] Gold Malloy, DO Surgical Pathology 05/02/2025 7:30 AM EDT - 05/02/2025 8:00 AM EDT Surgery [facility] - Surgery [address] [place] [address] Gold Malloy, DO COLONOSCOPY DIAGNOSTIC / SCREENING [95858 (CPT )] 05/02/2025 7:29 AM EDT Anesthesia Event [facility] - Surgery [address] [place] [address] Timbo Ceballos, DO 05/02/2025 6:15 AM EDT - 05/02/2025 8:25 AM EDT Hospital Encounter [facility] - Surgery [address] [place] [address] Gold Malloy, DO Proctitis (Primary Dx); Rectal bleeding Discharge Disposition: Home 05/02/2025 Travel 04/26/2025 4:20 PM EDT Support Visit [facility] - Pre Admit [address] [place] [address] 04/26/2025 11:30 AM EDT Office Visit [facility] [address] [place] [address] Laila Gonzalez, INTERIOR BLOCK WIRER-OPERATIONS RESEARCH MANAGER Rectal bleeding (Primary Dx); Chronic constipation; Straining during bowel movements 04/26/2025 Travel 04/04/2025 Telephone [facility] [address] [place] [address] Audrey Huntley CMA 03/29/2025 Telephone [facility] [address] [place] [address] Gold Malloy DO 03/24/2025 9:15 AM EDT Anesthesia Event [facility] - Surgery [address] [place] [address] Yandel Mayfield MD 03/24/2025 9:00 AM EDT - 03/24/2025 9:30 AM EDT Surgery [facility] - Surgery [address] [place] [address] Gold Malloy, DO COLONOSCOPY DIAGNOSTIC / SCREENING [08332 (CPT )] 03/24/2025 6:40 AM EDT - 03/24/2025 10:27 AM EDT Hospital Encounter [facility] - Surgery [address] [place] [address] Gold Malloy, DO Proctitis (Primary Dx); Rectal bleeding Discharge Disposition: Home 03/24/2025 Travel 03/17/2025 2:10 PM EDT Support Visit [facility] - Pre Admit [address] [place] [address] 03/14/2025 11:30 AM EDT Office Visit [facility] General Surgery [address] [place] [address] Laila Gonzalez APRN-HUSAM Rectal bleeding (Primary Dx); Chronic constipation; Straining during bowel movements 03/14/2025 Travel from Last 3 Months Immunizations Immunization [...] drink = 0.6 oz pur e alcohol) [facility] Utilities Answer Date Recorded In the past [...] Mass Index 29.27 05/02/2025 6:34 AM EDT Plan of Treatment Health Maintenance Due Date Last Done Comments Depression Screening 2010 Adult BMI Follow Up Plan 2016 COVID-19 Vaccine (2023-2 5 season) 2024 12/08/2020, 11/17/2020 Influenza Vaccine 06/27/2025 08/31/2020, , 08/21/2017, Additional history exists Adult BMI Screening 05/02/2026 05/02/2025 Tobacco Screening 05/02/2026 05/02/2025 DTaP,Tdap and Td Vaccines (8 - Td or Tdap) 08/05/2029 08/05/2019, 12/02/2017, 08/07/2011, Additional history exists Goals Goal Patient Goal Type Associated Problems Recent Progress Patient-Stated? Author home General Yes Stefania Armijo, RN Note: Evaluation of progress towards goal: ArleenanSoren, states back to alf. Medical Devices Not on file Procedures Procedure Name Priority Date/Time Associated Diagnosis Comments SURGICAL PATHOLOGY Routine 05/02/2025 7: 37 AM EDT IN COLONOSCOPY FLX DX W/COLLJ SPEC WHEN PFRMD 05/02/2025 7:29 AM EDT rectal bleeding-poor prep with first attempt COLONOSCOPY 05/02/2025 7:08 AM EDT [facility] COLONOSCOPY Routine 05/02/2025 6:24 AM EDT SURGICAL PATHOLOGY Routine 03/24/2025 9: 27 AM EDT IN COLONOSCOPY FLX DX W/COLLJ SPEC WHEN PFRMD 03/24/2025 9:16 AM EDT rectal bleeding COLONOSCOPY 03/24/2025 9:14 AM EDT PR[facility]ATION COLONOSCOPY Routine 03/24/2025 8:41 AM EDT from Last 3 Months Results * Surgical Pathology (05/02/2025 7:37 AM EDT) Only the most recent of2 resultswithin the time period is included. Case Report Surgical Pathology Report Case: [id number] Authorizing Provider: Gold Malloy DO Collected: 05/02/2025 0737 Ordering Location: [facility] Received: 05/02/[address] [place] [address] - Surgery Pathologist: Bruce Maya MD Specimen: Rectum, Rectum Biopsy X4 05/10/2025 5:28 PM EDT [facility] Final Diagnosis Rectum, biopsy: Acute inflammation with extensive ulceration. GMS special stain is negative for fungal organisms. CMV immunostain is negative. HSV immunostain is negative. 05/10/2025 5:28 PM EDT [facility] at 1728 EDT Gross Description Received in formalin labeled FILEMON, rectum biopsy x 4 are multiple encarnacion feathery tissue bits mixed with scant vegetative material, 0.9 x 1.1 x 0.1 cm in aggregate. The specimen is filtered and submitted entirely in one cassette. (1,ns,[id number] , m1) SW 05/10/2025 5:28 PM EDT [facility] Embedded Images 05/10/2025 5:28 PM EDT [facility] Tissue Rectum structure / Unknown 05/02/2025 7:37 AM EDT 05/02/2025 12:00 PM EDT Comment:Pre-op diagnosis: rectal bleeding-poor prep with first attempt Gold Malloy DO PATHOLOGY/CYTOLOGY ORDERABL ES Final Result [facility] [address] [place] [address], [place] [phone] * Colonoscopy (05/02/2025 7:08 AM EDT) 05/02/2025 7:08 AM EDT Narrative PM CARDIOVASCULAR - 05/02/2025 7:45 AM EDT [facility] Patient Name: Rj Gonzales Procedure Date No Time: 05/02/2025 CSN : [id number] Date of : 2000 Admit Type: Outpatient Age: 24 Room: [address] [address] Gender: Male Note Status: Finalized Attending MD: Gold Malloy DO, Procedure: Colonoscopy Indications: Rectal bleeding Providers: Gold Malloy DO Referring MD: Gold Malloy DO Medicines: Propofol per Anesthesia Complications: No immediate complications. Procedure: After I obtained informed consent, the scope was passed under direct vision. Throughout the procedure, the patient's blood pressure, pulse, and oxygen saturations were monitored continuously. The [employer] [id number] #[id number] ADULT COLONOSCOPE was introduced through the anus [...] office PRN. Procedure Code(s): --- Professional --- 91057, 52, Colonoscopy, flexible; with biopsy, single or multiple Diagnosis Code(s): --- Professional --- K62.5, Hemorrhage of anus and rectum K62.89, Other specified diseases of anus and rectum K62.6, Ulcer of anus and rectum CPT copyright 2022 [employer]. All rights reserved. The codes documented in this report are preliminary and upon geology instructor review may be revised to meet current compliance requirements. DO Gold Cui DO 05/02/2025 7:45:03 AM Number of Addenda: 0 Note Initiated On: 05/02/2025 7:08 AM Procedure Note Gold Malloy DO - 05/02/2025 [facility] Patient Name: Rj Gonzales Procedure Date No Time: 05/02/2025 CSN : [id number] Date of : 2000 Admit Type: Outpatient Age: 24 Room: [address] [address] Gender: Male Note Status: Finalized Attending MD: Gold Malloy DO, Procedure: Colonoscopy Indications: Rectal bleeding Providers: Gold Malloy DO Referring MD: Gold Malloy DO Medicines: Propofol per Anesthesia Complications: No immediate complications. Procedure: After I obtained informed consent, the scope was passed under direct vision. Throughout theprocedure, the patient's blood pressure, pulse, and oxygen saturations were monitored continuously. [facility] [id number] #[id number] ADULT COLONOSCOPE was introduced through the anus [...] office PRN. Procedure Code(s): --- Professional --- 09264, 52, Colonoscopy, flexible; with biopsy,single or multiple Diagnosis Code(s): --- Professional --- K62.5, Hemorrhage of anus and rectum K62.89, Other specified diseases of anus and rectum K62.6, Ulcer of anus and rectum CPT copyright 2022 [employer]. All rights reserved. The codes documented in this report are preliminary and upon geology instructor reviewmay be revised to meet current compliance requirements. DO Gold Cui DO 05/02/2025 7:45:03 AM Number of Addenda: 0 Note Initiated On: 05/02/2025 7:08 AM Gold Malloy DO GI PROCEDURE ORDERABLES Fin al Result CARDIOVASCULAR * Colonoscopy Report (05/02/2025 6:24 AM EDT) Only the most recent of2 resultswithin the time period is included. Narrative SYSTEMGENERATED, DOCUMENTATION - 05/02/2025 6:24 AM EDT This order has been auto-finalized for image and report archival in PACs. *For full report details, please reach out to your physician. This image is visible to you in MyChart.* Gold Malloy DO IMG OR IMG ORDERABLES Final Result * Colonoscopy (03/24/2025 9:14 AM EDT) 03/24/2025 9:14 AM EDT Narrative PM CARDIOVASCULAR - 03/24/2025 9:41 AM EDT [facility] Patient Name: Rj Gonzales Procedure Date No Time: 03/24/2025 CSN : [id number] Date of : 2000 Admit Type: Outpatient Age: 24 Room: [address] [address] Gender: Male Note Status: Finalized Attending MD: Gold Malloy DO, Procedure: Colonoscopy Indications: Rectal bleeding Providers: Gold Malloy DO Referring MD: Gold Malloy DO Medicines: Propofol per Anesthesia Complications: No immediate complications. Procedure: After I obtained informed consent, the scope was passed under direct vision. Throughout the procedure, the patient's blood pressure, pulse, and oxygen saturations were monitored continuously. The [employer] [id number] # [id number] PEDIATRIC COLONOSCOPE was introduced through the anus [...] office PRN. Procedure Code(s): --- Professional --- 11496, 52, Colonoscopy, flexible; with biopsy, single or multiple Diagnosis Code(s): --- Professional --- K63.89, Other specified diseases of intestine K62.5, Hemorrhage of anus and rectum K62.89, Other specified diseases of anus and rectum CPT copyright 2022 [employer]. All rights reserved. The codes documented in this report are preliminary and upon geology instructor review may be revised to meet current compliance requirements. DO Gold Cui DO 03/24/2025 9:40:37 AM Number of Addenda: 0 Note Initiated On: 03/24/2025 9:14 AM Procedure Note Gold Malloy DO - 03/24/2025 [facility] Patient Name: Rj Gonzales Procedure Date No Time: 03/24/2025 CSN : [id number] Date of : 2000 Admit Type: Outpatient Age: 24 Room: [address] [address] Gender: Male Note Status: Finalized Attending MD: Gold Malloy DO, Procedure: Colonoscopy Indications: Rectal bleeding Providers: Gold Malloy DO Referring MD: Gold Malloy DO Medicines: Propofol per Anesthesia Complications: No immediate complications. Procedure: After I obtained informed consent, the scope was passed under direct vision. Throughout theprocedure, the patient's blood pressure, pulse, and oxygen saturations were monitored continuously. The[id number] # [id number] PEDIATRIC COLONOSCOPE was introduced through the anus [...] office PRN. Procedure Code(s): --- Professional --- 70945, 52, Colonoscopy, flexible; with biopsy,single or multiple Diagnosis Code(s): --- Professional --- K63.89, Other specified diseases of intestine K62.5, Hemorrhage of anus and rectum K62.89, Other specified diseases of anus and rectum CPT copyright 2022 [employer]. All rights reserved. The codes documented in this report are preliminary and upon geology instructor reviewmay be revised to meet current compliance requirements. DO Gold Cui DO 03/24/2025 9:40:37 AM Number of Addenda: 0 Note Initiated On: 03/24/2025 9:14 AM Gold Malloy DO GI PROCEDURE ORDERABLES Fin al Result PM CARDIOVASCULAR from Last 3 Months Insurance MEDICAID [place] MEDICARE Advance Directives * Full Code (Latest Code Status on File) Date Activated Date Inactivated Comments 01/09/2024 4:52 AM 01/10/2024 3:12 PM Care Teams Health Counselor Relationship Specialty Start Date End Date Benson Yun MD PCP - General Family Medicine 03/14/25
--- OUTSIDE RECORDS SUMMARY | 2025-05-11 15:45 | XMS_ITS | Encounter Summary ---
Author Organization [facility] Address [address] [place] [address] Care Team Providers Care Auto Vinyl Top Installer Name Role Phone Benson Yun MD Primary Care Provider [phone] Benson Yun MD Unavailable Encounter Details Date Type Department Care Team (Late st Contact Info) Description 03/24/2025 Orders Only [facility] [address] [place] [address] Gold Malloy DO [address] [place] [phone] Social History Tobacco Use Types Packs/Day Years [...] 07/15/2025 10:00 AM EDT Office Visit [facility] [address] [place] [address] Benson Yun MD [address] [place] [address] documented as of this encounter Procedures Procedure Name Priority Date/Time Associated Diagnosis Comments COLONOSCOPY Routine 03/24/2025 9:55 AM EDT documented in this encounter Results * Colonoscopy (03/24/2025 9:55 AM EDT) Anatomical Region Laterality Modality Endoscopy Gold Malloy DO ENDOSCOPY PROCEDURE ORDERABLE S Final Result documented in this encounter Visit Diagnoses Not on filedocumented in this encounter Care Teams Auto Vinyl Top Installer Relationship Specialty Start Date End Date Benson Yun MD [address] [place] [address] PCP - General Family Medicine 01/07/24 Benson Yun MD [address] [place] [address] PCP - ACO Reach 12/03/24 documented as of this encounter
--- OUTSIDE RECORDS SUMMARY | 2025-05-11 15:45 | XMS_ITS | Encounter Summary ---
Author Organization [facility] Address [address] [place] [address] Care Team Providers Care Judicial Reporter Name Role Phone Benson Yun MD Primary Care Provider [phone] Benson Yun MD Unavailable Reason for Visit * Reason Onset Date Comments Med Refill 04/27/2025 Error (VOID this visit) 04/27/2025 Encounter Details Date Type Department Care Team (Late Contact Info) Description 04/27/2025 Refill [facility] [address] [place] [address] Benson Yun MD [address] [place] [address] Social History Tobacco Use Types Packs/Day Years [...] 07/15/2025 10:00 AM EDT Office Visit [facility] [address] [place] [address] Benson Yun MD [address] [place] [address] documented as of this encounter Visit Diagnoses Not on filedocumented in this encounter Care Teams Judicial Reporter Relationship Specialty Start Date End Date Benson Yun MD [address] [place] [address] PCP - General Family Medicine 01/07/24 Besnon Yun MD [address] [place] [address] PCP - ACO Reach 12/03/24 documented as of this encounter
--- OUTSIDE RECORDS SUMMARY | 2025-05-11 15:45 | XMS_ITS | Clinical Summary ---
Author Organization [facility] Address [address] [place] [address] Care Team Providers Care Smoking Pipe Mounter Name Role Phone Benson Yun MD Primary Care Provider [phone] Benson Yun MD Unavailable Allergies No known [...] Encounters Date Type Department Care Team Description 04/27/2025 Refill [facility] [address] [place] [address] Benson Yun MD 03/30/2025 Clinisync Result Encounter [facility] External Department Unsolicited Provider, Generic External Data 03/24/2025 Orders Only [facility] [address] [place] [address] Gold Malloy DO 03/01/2025 Clinisync Result Encounter [...] 07/15/2025 10:00 AM EDT Office Visit [facility] [address] [facility] [place] [address] Benson Yun MD [address] [place] [address] Health Maintenance Due Date Last Done Comments Influenza Vaccine (#1) 2025 0, 08/18/2019, 08/21/2017, Additional history exists Medicare Annual Wellness (AWV) 01/12/2026 01/12/2025 (Patient Refused) Procedures Procedure Name Priority Date/Time Associated Diagnosis Comments ALL CBC WITH AUTO DIFF Routine 03/30/2025 3:46 PM EDT COLONOSCOPY Routine 03/24/2025 9:55 AM EDT ALL CBC WITH AUTO DIFF Routine 03/01/2025 3:37 PM EDT from Last 3 Months Results * (ABNORMAL) ALL CBC WITH AUTO DIFF (03/30/2025 3:46 PM EDT) Only the most recent of2 resultswithin the time period is included. [facility] WBC 6.3 4.0 - 11.0 10 3/uL TBH TBH RBC 5.47 4.70 - 6.10 10 6/uL TBH TBH HGB 11.6(L) 14.0 - 18.0 g/dL TBH TBH HCT 39.2(L) 42.0 - 54.0 % TBH TBH MCV 71.7(L) 80.0 - 94.0 fL TBH TBH MCH 21.2(L) 25.9 - 34.0 pg TBH TBH MCHC 29.6(L) 29.9 - 35.2 g/dL TBH TBH RDW 19.3(H) 11.0 - 15.0 % TBH TBH PLT 304 150 - 450 10 3/uL TBH TBH MPV 10.7 9.5 - 13.5 fL TBH NEUTROPHILS PERCENT AUTO 55.3 43.0 - 75.0 % TBH LYMPHOCYTES PERCENT AUTO 26.2 20.5 - 60.0 % TBH MONOCYTES PERCENT AUTO 11.8 1.7 - 12.0 % TBH TBH EO % 5.4 0.9 - 7.0 % TBH BASOPHILS PERCENT AUTO 1.0 0.2 - 2.0 % TBH IMMATURE GRANULOCYTES PCT AUTO 0.3 0.0 - 0.5 % TBH NEUTROPHILS ABSOLUTE AUTO 3.5 1.4 - 6.5 10 3/uL TBH LYMPHOCYTES ABSOLUTE AUTO 1.6 1.2 - 3.8 10 3/uL TBH MONOCYTES ABSOLUTE AUTO 0.7 0.3 - 0.8 10 3/uL TBH TBH EO # 0.3 0.0 - 0.7 10 3/uL TBH BASOPHILS ABSOLUTE AUTO 0.1 0.0 - 0.1 10 3/uL TBH IMMATURE GRANULOCYTES ABS AUTO 0.02 0.00 - 0.03 10 3/uL TBH 03/30/2025 3:46 PM EDT 03/30/2025 3:47 PM EDT Narrative [facility] - 03/30/2025 4:44 PM EDT Generic External Data Provider [facility] F inal Result [facility] * Colonoscopy (03/24/2025 9:55 AM EDT) Anatomical Region Laterality Modality Endoscopy Gold Malloy DO ENDOSCOPY PROCEDURE ORDERABLE S Final Result from Last 3 Months Insurance MEDICARE MEDICAID [place] Care Teams Smoking Pipe Mounter Relationship Specialty Start Date End Date Benson Yun MD [address] [place] [phone] PCP - General Family Medicine 01/07/24 Benson Yun MD [address] [place] [address] PCP - ACO Reach 12/03/24
--- OUTSIDE RECORDS SUMMARY | 2025-05-11 15:45 | XMS_ITS | Clinical Summary ---
Author Organization [facility] Address [address] [place], [place] [id number] Care Team Providers Care Preschool Director Name Role Phone Unavailable Primary Care Provider [...] N ot on file 11/23/2022 Data from: [email or web address] Last address used for calculation [address] [facility] 11/23/2022 Sex and Gender Information Value Date [...] season) 2024 11/03/2021, 12/08/2020, 11/17/2020 Influenza Vaccine (#1) 2025 , 08/31/2020, 08/18/2019, Additional history exists DTaP,Tdap,Td Vaccine (8 - Td or Tdap) 08/05/2029 08/05/2019, 12/02/2017, 08/07/2011, Additional history exists Hepatitis B Vaccine Completed 07/18/2004, 02/08/2003, 2000, Additional history exists Insurance MEDICARE [place]ICAID [place]
[2025-05-11 16:10] LABS: Hematocrit 43.6 % (42.0-54.0); Hemoglobin 12.5 g/dL (14.0-18.0); Immature Granulocytes Abs Auto 0.01 10^3/uL (0.00-0.03); Immature Granulocytes Pct Auto 0.2 % (0.0-0.5); Lymphocytes Absolute Auto 1.4 10^3/uL (1.2-3.8); Mean Corpuscular HGB Conc 28.7 g/dL (29.9-35.2); Mean Corpuscular Hemoglobin 21.0 pg (25.9-34.0); Mean Corpuscular Volume 73.3 fL (80.0-94.0); Platelet Count 295 10^3/uL (150-450); Red Blood Count 5.95 10^6/uL (4.70-6.10); White Blood Count 6.5 10^3/uL (4.0-11.0)
== END 2025-05-11 15:42 | disposition home or self-care (01) ==
LOC: LAB 15:43
PROVIDERS: PCP Family Medicine; Visit Provider Registered Nurse Psychiatric/Mental Health
DX: Z79.899 Other long term (current) drug therapy (principal)
CPT/HCPCS: 36415; 85025

== ENCOUNTER 2025-06-09 16:21 | Outpatient (OUT) | payer MEDICARE, MEDICAID, SELFPAY ==
--- OUTSIDE RECORDS SUMMARY | 2025-06-09 16:24 | XMS_ITS | Encounter Summary ---
Author Organization [facility] Address [address] [place] [address] Care Team Providers Care Ibm Mainframe Developer Name Role Phone Benson Yun MD Primary Care Provider [phone] Benson Yun MD Unavailable Encounter Details Date Type Department Care Team (Late st Contact Info) Description 03/24/2025 Orders Only [facility] [address] [place] [address] Gold Malloy DO [address] [place] [address] [phone] Social History Tobacco Use Types Packs/Day Years [...] 07/15/2025 10:00 AM EDT Office Visit [facility] [address] [place] [address] Benson Yun MD [address] [place] [address] documented as of this encounter Procedures Procedure Name Priority Date/Time Associated Diagnosis Comments COLONOSCOPY Routine 03/24/2025 9:55 AM EDT documented in this encounter Results * Colonoscopy (03/24/2025 9:55 AM EDT) Anatomical Region Laterality Modality Endoscopy Gold Malloy DO ENDOSCOPY PROCEDURE ORDERABLE S Final Result documented in this encounter Visit Diagnoses Not on filedocumented in this encounter Care Teams Ibm Mainframe Developer Relationship Specialty Start Date End Date Benson Yun MD [address] [place] [address] PCP - General Family Medicine 01/07/24 Benson Yun MD [address] [place] [address] PCP - ACO Reach 12/03/24 documented as of this encounter
--- OUTSIDE RECORDS SUMMARY | 2025-06-09 16:24 | XMS_ITS | Encounter Summary ---
Author Organization [facility] Address [address] [place] [address] Care Team Providers Care Grid Inspector Name Role Phone Benson Yun MD Primary Care Provider [phone] Benson Yun MD Primary Care Provider [phone] Benson Yun MD Unavailable Encounter Details Date Type Department Care Team (Late st Contact Info) Description 05/12/2023 Abstract [facility] [address] [place] [address] Caroline Martínez NP Social History Tobacco Use [...] 07/15/2025 10:00 AM EDT Office Visit [facility] [address] [place] [address] Benson Yun MD [address] [place] [address] documented as of this encounter Visit Diagnoses Not on filedocumented in this encounter Care Teams Grid Inspector Relationship Specialty Start Date End Date Benson Yun MD PCP - General Cardiology 04/02/23 01/06/24 Benson Yun MD [address] [place] [address] PCP - General Family Medicine 01/07/24 Benson Yun MD [address] [place] [address] PCP - ACO Reach 12/03/24 documented as of this encounter
--- OUTSIDE RECORDS SUMMARY | 2025-06-09 16:24 | XMS_ITS | Clinical Summary ---
Author Organization [facility] Address [id number] [address] [place] [address] Care Team Providers Care Historiography Professor Name Role Phone Benson Yun MD Primary Care Provider [phone] Allergies No known active allergies Medications benztropine [...] hours as needed for pain. 30 tablet 3 Active acetaminophen (TYLENOL EXTRA STRENGTH) 500 mg tablet Take 2 tablets (1,000 mg total) by mouth every 6 (six) hours as needed for pain. 30 tablet 4 Active cloZAPine (CLOZARIL) 100 mg tablet Take 1 tablet (100 mg total) by mouth in the morning and 1 tablet (100 mg total) at noon and 1 tablet (100 mg total) before bedtime. 5 Active polyethylene glycol (GLYCOLAX) 17 gram packetIndication s:Chronic constipation Take 17 g by mouth 2 (two) times a day as needed (1-2 times daily as needed). 60 packet 1 5 Active hydrocortisone-p ramoxine (PROCTOFOAM-HS) rectal foamIndications: Proctitis Insert 1 applicator into the rectum in the morning and 1 applicator before bedtime. 10 g 1 5 Active hydrocortisone-p ramoxine (PROCTOFOAM-HS) rectal foamIndications: Proctitis Insert 1 applicator into the rectum in the morning and 1 applicator before bedtime. 10 g 5 025 Discontin ued(Reord er) Active Problems Problem Noted Date Diagnosed Date Rectal prolapse 01/09/2024 Encounters Date Type Department Care Team Description 05/11/2025 Orders Only [facility] General Surgery [address] [place] [address] Laila Gonzalez, APIGEE DEVELOPER-LMSW Proctitis 05/11/2025 Results Follow-Up [facility] - Surgery [address] [place] [address] Gold Malloy, DO Surgical Pathology 05/02/2025 7:30 AM EDT - 05/02/2025 8:00 AM EDT Surgery [facility] - Surgery [address] [place] [address] Gold Malloy, COLONOSCOPY DIAGNOSTIC / SCREENING [71530 (CPT )] 05/02/2025 7:29 AM EDT Anesthesia Event [facility] - Surgery [address] [place] [address] Timbo Ceballos, DO 05/02/2025 6:15 AM EDT - 05/02/2025 8:25 AM EDT Hospital Encounter [facility] - Surgery [address] [place] [address] Gold Malloy, Proctitis (Primary Dx); Rectal bleeding Discharge Disposition: Home 05/02/2025 Travel 04/26/2025 4:20 PM EDT Support Visit [facility] - Pre Admit [address] [place] [address] 04/26/2025 11:30 AM EDT Office Visit [facility] [address] [place] [address] Laila Gonzalez, APIGEE DEVELOPER-LMSW Rectal bleeding (Primary Dx); Chronic constipation; Straining during bowel movements 04/26/2025 Travel 04/04/2025 Telephone [facility] [address] [place] [address] Audrey Huntley CMA 03/29/2025 [facility] [address] [place] [address] Gold Malloy, 03/24/2025 9:15 AM EDT Anesthesia Event [facility] - Surgery [address] [place] [address] Yandel Mayfield MD 03/24/2025 9:00 AM EDT - 03/24/2025 9:30 AM EDT Surgery [facility] - Surgery [address] [place] [address] Gold Malloy, DO COLONOSCOPY DIAGNOSTIC / SCREENING [80818 (CPT )] 03/24/2025 6:40 AM EDT - 03/24/2025 10:27 AM EDT Hospital Encounter [facility] - Surgery [address] [place] [address] Gold Malloy, DO Proctitis (Primary Dx); Rectal bleeding Discharge Disposition: Home 03/24/2025 Travel 03/17/2025 2:10 PM EDT Support Visit [facility] - Pre Admit [address] [facility] [address] 03/14/2025 11:30 AM EDT Office Visit [facility] General Surgery [address] [address] Laila Gonzalez, APIGEE DEVELOPER-HUSAM Rectal bleeding (Primary Dx); Chronic constipation; Straining [...] drink = 0.6 oz pur e alcohol) [facility] Utilities Answer Date Recorded In the [...] RN Note: Evaluation of progress towards goal: Arleenan, Soren, states back to intermediate. Medical Devices Not on file Procedures Procedure Name Priority Date/Time Associated Diagnosis Comments SURGICAL PATHOLOGY Routine 05/02/2025 7: 37 AM EDT SC COLONOSCOPY FLX DX W/COLLJ SPEC WHEN PFRMD 05/02/2025 7:29 AM EDT rectal bleeding-poor prep with first attempt COLONOSCOPY 05/02/2025 7:08 AM EDT [employer] COLONOSCOPY Routine 05/02/2025 6:24 AM EDT SURGICAL PATHOLOGY Routine 03/24/2025 9: 27 AM EDT SC COLONOSCOPY FLX DX W/COLLJ SPEC WHEN PFRMD 03/24/2025 9:16 AM EDT rectal bleeding COLONOSCOPY 03/24/2025 9:14 AM EDT PROVATION COLONOSCOPY Routine 03/24/2025 8:41 AM EDT from Last 3 Months Results * Surgical Pathology (05/02/2025 7:37 AM EDT) Only the most recent of2 resultswithin the time period is included. Case Report Surgical Pathology Report Case: [id number] Authorizing Provider: Gold Malloy DO Collected: 05/02/2025 0737 Ordering Location: [facility] Received: 05/02/[address] [place] [address] - Surgery Pathologist: Bruce Maya MD Specimen: Rectum, Rectum Biopsy X4 05/10/2025 5:28 PM EDT [facility] Final Diagnosis Rectum, biopsy: Acute inflammation with extensive ulceration. GMS special stain is negative for fungal organisms. CMV immunostain is negative. HSV immunostain is negative. 05/10/2025 5:28 PM EDT [facility] at 1728 EDT Gross Description Received in formalin labeled FILEMON, rectum biopsy x 4 are multiple encarnacion feathery tissue bits mixed with scant vegetative material, 0.9 x 1.1 x 0.1 cm in aggregate. The specimen is filtered and submitted entirely in one cassette. (1,ns,[id number] , m1) SW 05/10/2025 5:28 PM EDT [facility] Embedded Images 05/10/2025 5:28 PM EDT [facility] Tissue Rectum structure / Unknown 05/02/2025 7:37 AM EDT 05/02/2025 12:00 PM EDT Comment:Pre-op diagnosis: rectal bleeding-poor prep with first attempt us Gold Malloy DO PATHOLOGY/CYTOLOGY ORDERABL ES Final Result [facility] [address] [place] [address], * Colonoscopy (05/02/2025 7:08 AM EDT) 05/02/2025 7:08 AM EDT Narrative PM CARDIOVASCULAR - 05/02/2025 7:45 AM EDT [facility] Patient Name: Rj Gonzales Procedure Date No Time: 05/02/2025 CSN : [id number] Date of : 2000 Admit Type: Outpatient Age: 24 Room: [place] [address] Gender: Male Note Status: Finalized Attending MD: Gold Malloy DO, Procedure: Colonoscopy Indications: Rectal bleeding Providers: Gold Malloy DO Referring MD: Gold Malloy DO Medicines: Propofol per Anesthesia Complications: No immediate complications. Procedure: After I obtained informed consent, the scope was passed under direct vision. Throughout the procedure, the patient's blood pressure, pulse, and oxygen saturations were monitored continuously. The [employer] [id number] #[id number] ADULT COLONOSCOPE was introduced through the anus [...] office PRN. Procedure Code(s): --- Professional --- 86657, 52, Colonoscopy, flexible; with biopsy, single or multiple Diagnosis Code(s): --- Professional --- K62.5, Hemorrhage of anus and rectum K62.89, Other specified diseases of anus and rectum K62.6, Ulcer of anus and rectum CPT copyright 2022 [employer]. All rights reserved. The codes documented in this report are preliminary and upon marketing executive review may be revised to meet current compliance requirements. DO Gold Cui DO 05/02/2025 7:45:03 AM Number of Addenda: 0 Note Initiated On: 05/02/2025 7:08 AM Procedure Note Gold Malloy DO - 05/02/[address] [facility] Patient Name: Rj Gonzales Procedure Date No Time: 05/02/2025 CSN : [id number] Date of : 2000 Admit Type: Outpatient Age: 24 Room: [place] [address] Gender: Male Note Status: Finalized Attending MD: Gold Malloy DO, Procedure: Colonoscopy Indications: Rectal bleeding Providers: Gold Malloy DO Referring MD: Gold Malloy DO Medicines: Propofol per Anesthesia Complications: No immediate complications. Procedure: After I obtained informed consent, the scope was passed under direct vision. Throughout theprocedure, the patient's blood pressure, pulse, and oxygen saturations were monitored continuously. [facility] [id number] #[id number] ADULT COLONOSCOPE was introduced through the anus [...] office PRN. Procedure Code(s): --- Professional --- 08751, 52, Colonoscopy, flexible; with biopsy,single or multiple Diagnosis Code(s): --- Professional --- K62.5, Hemorrhage of anus and rectum K62.89, Other specified diseases of anus and rectum K62.6, Ulcer of anus and rectum CPT copyright 2022 [employer]. All rights reserved. The codes documented in this report are preliminary and upon marketing executive reviewmay be revised to meet current compliance requirements. DO Gold Cui DO 05/02/2025 7:45:03 AM Number of Addenda: 0 Note Initiated On: 05/02/2025 7:08 AM us Gold Malloy DO GI PROCEDURE [...] PM CARDIOVASCULAR - 03/24/2025 9:41 AM EDT [facility] Patient Name: Rj Gonzales Procedure Date No Time: 03/24/2025 CSN : [id number] Date of : 2000 Admit Type: Outpatient Age: 24 Room: [place] [address] Gender: Male Note Status: Finalized Attending MD: Gold Malloy DO, Procedure: Colonoscopy Indications: Rectal bleeding Providers: Gold Malloy DO Referring MD: Gold Malloy DO Medicines: Propofol per Anesthesia Complications: No immediate complications. Procedure: After I obtained informed consent, the scope was passed under direct vision. Throughout the procedure, the patient's blood pressure, pulse, and oxygen saturations were monitored continuously. The [employer] [id number] # [id number] PEDIATRIC COLONOSCOPE was introduced through the anus [...] office PRN. Procedure Code(s): --- Professional --- 12381, 52, Colonoscopy, flexible; with biopsy, single or multiple Diagnosis Code(s): --- Professional --- K63.89, Other specified diseases of intestine K62.5, Hemorrhage of anus and rectum K62.89, Other specified diseases of anus and rectum CPT copyright 2022 [employer]. All rights reserved. The codes documented in this report are preliminary and upon marketing executive review may be revised to meet current compliance requirements. DO Gold Cui DO 03/24/2025 9:40:37 AM Number of Addenda: 0 Note Initiated On: 03/24/2025 9:14 AM Procedure Note Gold Malloy DO - 03/24/[address] [facility] Patient Name: Rj Gonzales Procedure Date No Time: 03/24/2025 CSN : [id number] Date of : 2000 Admit Type: Outpatient Age: 24 Room: [place] [address] Gender: Male Note Status: Finalized Attending MD: Gold Malloy DO, Procedure: Colonoscopy Indications: Rectal bleeding Providers: Gold Malloy DO Referring MD: Gold Malloy DO Medicines: Propofol per Anesthesia Complications: No immediate complications. Procedure: After I obtained informed consent, the scope was passed under direct vision. Throughout theprocedure, the patient's blood pressure, pulse, and oxygen saturations were monitored continuously. [facility] [id number] # [id number] PEDIATRIC COLONOSCOPE was introduced through the anus [...] office PRN. Procedure Code(s): --- Professional --- 27826, 52, Colonoscopy, flexible; with biopsy,single or multiple Diagnosis Code(s): --- Professional --- K63.89, Other specified diseases of intestine K62.5, Hemorrhage of anus and rectum K62.89, Other specified diseases of anus and rectum CPT copyright 2022 [employer]. All rights reserved. The codes documented in this report are preliminary and upon marketing executive reviewmay be revised to meet current compliance [...] 4:52 AM 01/10/2024 3:12 PM Care Teams Historiography Professor Relationship Specialty Start Date End Date Benson Yun MD PCP - General Family Medicine 03/14/25
--- OUTSIDE RECORDS SUMMARY | 2025-06-09 16:24 | XMS_ITS | Encounter Summary ---
Author Organization [employer] [facility] tem Address [facility] [id number] [address] [place] [address] Care Team Providers Care Fire Tender Name Role Phone Benson Yun MD Primary Care Provider [phone] Encounter Details Date Type Department Care Team ([facility] st Contact Info) Description 03/29/2025 Telephone [facility] [address] [address] Gold Malloy DO [address] [place] [address] Social History Tobacco Use Types Packs/Day Years Used Date Smoking Tobacco: Never Smokeless Tobacco: Never Alcohol Use Standard Drinks/Week Comments Never 0 (1 standard drink = 0.6 oz pur e alcohol) [facility] Utilities Answer Date Recorded In the past 12 months has [employer], [employer], oil, or water [employer] threatened to shut off services in your [...] towards goal: Guardian, Soren, states back to penitentiary. documented as of this encounter Visit Diagnoses Not on filedocumented in this encounter Care Teams Fire Tender Relationship Specialty Start Date End Date Benson Yun MD PCP - General Family Medicine 03/14/25 documented as of this encounter
--- OUTSIDE RECORDS SUMMARY | 2025-06-09 16:24 | XMS_ITS | Clinical Summary ---
Author Organization [facility] Address [address] [place], [place] [address] Care Team Providers Care Network Administrator Name Role Phone Unavailable Primary Care Provider [...] N ot on file 11/23/2022 Data from: [email or web address] Last address used for calculation [address] 11/23/2022 Sex and Gender Information Value [...] HIV Screening 2016 Hepatitis C Screening 2016 Influenza Vaccine (#1) 2025 , 08/31/2020, 08/18/2019, Additional history exists DTaP,Tdap,Td Vaccine (8 - Td or Tdap) 08/05/2029 08/05/2019, 12/02/2017, 08/07/2011, Additional history exists Hepatitis B Vaccine Completed 07/18/2004, 02/08/2003, 2000, Additional history exists Insurance MEDICARE Member Subscriber Plan / Payer (Ef fective 2018-Present) Name:Rj Gonzales Member ID:[id number] Relation to Subscriber:Self Name:Rj Gonzales Subscriber ID:[id number] Payer ID:Not on file Group ID:Not on file Type:Medicare Address: [facility] [place] [id number] [place]ICA[place]
--- OUTSIDE RECORDS SUMMARY | 2025-06-09 16:24 | XMS_ITS | Clinical Summary ---
Author Organization [facility] Address [address] [place] [address] Care Team Providers Care Structured Cabling Technician Name Role Phone Benson Yun MD Primary Care Provider [phone] Benson Yun MD Unavailable Allergies No known [...] evening. Active Docusate Sodium (DSS) 100 MG capsuleIndicatio ns:Chronic constipation Take 1 capsule (100 mg) by mouth in the morning. 60 capsule 5 4 Active loratadine (Claritin) 10 MG tabletIndication s:Seasonal allergic rhinitis due to pollen Take 1 tablet (10 mg) by mouth in the morning. 30 tablet 11 5 026 Active polycarbophil (Fiber-Lax) 625 MG tabletIndication s:Chronic constipation Take 1 tablet (625 mg) by mouth Daily 30 tablet 5 5 Active Hydrocort-Pramox ine, Perianal, 1-1 % foamIndications: Rectal inflammation Insert 1 applicator into the rectum in the morning and 1 applicator before bedtime. 10 g 11 5 Active Hydrocort-Pramox ine, Perianal, 1-1 % foam Insert 1 applicator into the rectum in the morning and 1 applicator in the evening. 5 025 Discontin ued(Reord er) Active Problems Problem Noted Date Diagnosed Date Rectal inflammation 05/19/2025 Personal care impairment 01/12/2025 Chronic constipation 01/07/2024 [...] Encounters Date Type Department Care Team Description 05/19/2025 Telephone [facility] [address] [place] [address] Benson Yun MD Med Refill 05/11/2025 Clinisync Result Encounter [facility] External Department Unsolicited Provider, Generic External Data 04/27/2025 Refill [facility] [address] [place] [address] Benson Yun MD 03/30/2025 Clinisync Result Encounter [facility] External Department Unsolicited Provider, Generic External Data 03/24/2025 Orders Only [facility] [address] [place] [address] Gold Malloy DO from Last 3 Months Family History Relation [...] 10:00 AM EDT Office Visit [facility] [address] [place] [address] Benson Yun MD [address] [place] [address] Health Maintenance Due Date Last Done Comments Influenza Vaccine (#1) 2025 0, 08/18/2019, 08/21/2017, Additional history exists Medicare Annual Wellness (AWV) 01/12/2026 01/12/2025 (Patient Refused) Procedures Procedure Name Priority Date/Time Associated Diagnosis Comments ALL CBC WITH AUTO DIFF Routine 05/11/2025 3:53 PM EDT ALL CBC WITH AUTO DIFF Routine 03/30/2025 3:46 PM EDT COLONOSCOPY Routine 03/24/2025 9:55 AM EDT from Last 3 Months Results * (ABNORMAL) ALL CBC WITH AUTO DIFF (05/11/2025 3:53 PM EDT) Only the most recent of2 resultswithin the time period is included. [facility] WBC 6.5 4.0 - 11.0 10 3/uL [facility] RBC 5.95 4.70 - 6.10 10 6/uL [facility] HGB 12.5(L) 14.0 - 18.0 g/dL TBH TBH HCT 43.6 42.0 - 54.0 % [facility] MCV 73.3(L) 80.0 - 94.0 fL TBH TBH MCH 21.0(L) 25.9 - 34.0 pg TBH TBH MCHC 28.7(L) 29.9 - 35.2 g/dL TBH TBH RDW 17.9(H) 11.0 - 15.0 % TBH TBH PLT 295 150 - 450 10 3/uL TBH TBH MPV 10.4 9.5 - 13.5 fL [facility]H NEUTROPHILS PERCENT AUTO 64.7 43.0 - 75.0 % TBH LYMPHOCYTES PERCENT AUTO 21.7 20.5 - 60.0 % TB[facility] MONOCYTES PERCENT AUTO 10.7 1.7 - 12.0 % TBH TBH EO % 2.1 0.9 - 7.0 % [facility] BASOPHILS PERCENT AUTO 0.6 0.2 - 2.0 % [facility] IMMATURE GRANULOCYTES PCT AUTO 0.2 0.0 - 0.5 % TBH NEUTROPHILS ABSOLUTE AUTO 4.2 1.4 - 6.5 10 3/uL TB[facility] LYMPHOCYTES ABSOLUTE AUTO 1.4 1.2 - 3.8 10 3/uL TB[facility] MONOCYTES ABSOLUTE AUTO 0.7 0.3 - 0.8 10 3/uL TBH TBH EO # 0.1 0.0 - 0.7 10 3/uL TBH BASOPHILS ABSOLUTE AUTO 0.0 0.0 - 0.1 10 3/uL TB[facility] IMMATURE GRANULOCYTES ABS AUTO 0.01 0.00 - 0.03 10 3/uL [facility] 05/11/2025 3:53 PM EDT 05/11/2025 3:54 PM EDT Narrative [facility] - 05/11/2025 4:25 PM EDT Generic External Data Provider [facility] F inal Result [facility] * Colonoscopy (03/24/2025 9:55 AM EDT) Anatomical Region Laterality Modality Endoscopy Gold Malloy DO ENDOSCOPY PROCEDURE ORDERABLE S Final Result from Last 3 Months Insurance MEDICARE MEDICAID [place] Care Teams Structured Cabling Technician Relationship Specialty Start Date End Date Benson Yun MD [address] [place] [address] PCP - General Family Medicine 01/07/24 Benson Yun MD [address] [place] [address] PCP - ACO Reach 12/03/24
--- OUTSIDE RECORDS SUMMARY | 2025-06-09 16:24 | XMS_ITS | Encounter Summary ---
Author Organization [employer] [facility] tem Address [facility] [id number] [address] [place] [address] Care Team Providers Care Pharmaceutical Botanist Name Role Phone Benson Yun MD Primary Care Provider [phone] Encounter Details Date Type Department Care Team (Late st Contact Info) Description [facility] [address] [address] Brothers, Ligia Bridges Social History Tobacco Use Types Packs/Day Years Used Date Smoking Tobacco: Never Smokeless Tobacco: Never Alcohol Use Standard Drinks/Week Comments Never 0 (1 standard drink = 0.6 oz pur e alcohol) [facility] Utilities Answer Date Recorded In [...] towards goal: Guardian, Soren, states back to retirement. documented as of this encounter Visit Diagnoses Not on filedocumented in this encounter Care Teams Pharmaceutical Botanist Relationship Specialty Start Date End Date Benson Yun MD PCP - General Family Medicine 03/14/25 documented as of this encounter
--- OUTSIDE RECORDS SUMMARY | 2025-06-09 16:31 | XMS_ITS | CCD ---
Author Organization [facility] Care Team Providers Care Risk Assessment Analyst Name Role Phone Salam, Shaw Unavailable Unavailable Salam, Shaw Unavailable Unavailable Salam, Shaw Unavailable Unavailable NADERER, BENSON~[phone] UNKNOWN Unavailable Unavailable Salam, Shaw Unavailable Unavailable Salam, Shaw Unavailable Unavailable Salam, Shaw Unavailable Unavailable NADERER, BENSON~[phone] UNKNOWN Unavailable Unavailable Unavailable Primary Care Provider [...] Attending Unavailable MISC, DOCTOR Attending Unavailable MISC, DR VALDOVINOS Admitting Unavailable MISC, DR VALDOVINOS Consulting Unavailable NADERER, DR BENSON Gregory Primary Care Unavailable NADERER, BENSON Primary Care Unavailable TABITHA MERINO Attending Unavailable DARLING, PUSHPA Kong Admitting Unavailable PAUL, JOHN DEL ROSARIO Attending Unavailable NADMALIHA, BENSON Primary Care Unavailable REYNOLD KUO Attending Unavailable KENANEREBENSON Schmidt Referring Unavailable NADERERoxana, BENSON Primary Care Unavailable Isela GAUATM, Benson Primary Care Provider [phone] Benson Weiss MD Unavailable Benson Weiss MD Primary Care Provider Benson Weiss MD Primary Care Provider BENSON WEISS Attending Unavailable NADEREBENSON Schmidt Attending Unavailable KettyJean Carlos abbasi Attending Unavailab le Jean Carlos Hdez Admitting Unavailab le NO FAMILY, PHYSICIAN Primary Care Unavailable Benson Weiss MD Primary Care Provider Benson Weiss MD Primary Care Provider LAILA GONZALEZ Attending Unavailable BENSON WEISS Referring Unavailable BENSON WEISS Primary Care Unavailable LAILA GONZALEZ Attending Unavailable BENSON WEISS Referring Unavailable NADERERoxana, BENSON Primary Care Unavailable LAILA GONZALEZ Attending Unavailable BENSON WEISS Referring Unavailable NADEREBENSON Schmidt Primary Care Unavailable NADBENSON JETT Referring Unavailable NADERER, BENSON Primary Care Unavailable GRILLIS, VERONICA E Admitting Unavailable GRILLIS, VERONICA E Attending Unavailable TAMIKAILLIS, VERONICA E Referring Unavailable BENSON WEISS Primary Care Unavailable ISELA, BENSON Referring Unavailable NADERER, BENSON Primary Care Unavailable GRILLIS, VERONICA E Admitting Unavailable GRILLIS, VERONICA E Attending Unavailable GRILLIS, VERONICA E Referring Unavailable KENANERER, BENSON Primary Care Unavailable Allergies Allergy Classification Reported Allergen(s) Allergy Type Date of Onset Reaction(s) Facility (1 source) No Known Medication Allergies; Translations: [No Known Medication Allergies] Propensity to adverse reactions (disorder) [facility] Repository Medications Current Medications Medication Drug Class(es) Dates Sig (Normalized) Sig (Original) acetaminophen 500 mg oral tablet (20 sources) Start: 01-10-2024 End: 01-12-2025 take 2 tablets by mouth every six hours as needed for pain acetaminophen (TYLENOL EXTRA STRENGTH) 500 mg tablet Take 2 tablets (1,000 mg total) by mouth every 6 (six) hours as needed for pain. 30 tablet 01/10/2024 Active Start: 10-17-2021 take 2 tablets by mo [facility] every six hours acetaminophen (TYLENOL) 325 mg tablet Take 2 tablets by mouth every 6 hours. 0 10/17/2021 Active Comment on above: Take 2 tablets by mo [facility] every 6 hours. benztropine mesylate 2 mg oral tablet (20 sources) Anticholinergic, Antihistamine take 1 tablet by mouth in the morning benztropine (Cogentin) 2 MG tablet Take 2 mg by mouth in the morning and 2 mg in the evening. Active Comment on above: Take 2 mg by mouth t wice daily. calcium polycarbophil 625 mg oral tablet (20 sources) Start: 04-07-20 take 1 tablet by mouth once daily polycarbophil (Fiber-Lax) 625 MG tablet Indications: Chronic constipation Take 1 tablet (625 mg) by mouth Daily 30 tablet 5 02/02/2025 Active Comment on above: Take 625 mg by mouth . clonazePAM 0.5 mg oral tablet (20 sources) Benzodiazepine take 1 tablet by mouth in the morning clonazePAM (KlonoPIN) 0.5 MG tablet Take 0.5 mg by mouth in the morning and 0.5 mg in the evening. Active [facility] as needed clonazePAM (KLONOPIN) 1 mg tablet Take 1 mg by mouth twice daily as needed. 0 Active Comment on above: Take 1 mg by mouth t wice daily as needed. cloZAPine 100 mg oral tablet (18 sources) Atypical Antipsychotic Start: 01-04-2025 cloZAPine (CLOZARIL) 100 mg tablet Take 1 tablet (100 mg total) by mouth in the morning and 1 tablet (100 mg total) at noon and 1 tablet (100 mg total) before bedtime. 01/04/2025 Active Start: 06-07-2021 cloZAPine (OLAF ZARIL) 100 mg tablet take 1.5 tablets by mouth once daily cloZAPine (CLOZARIL) 200 mg tablet Take 1.5 tablets (300 mg total) by mouth nightly. Active docusate sodium 100 mg oral capsule (20 sources) Start: 11-04-2023 take 1 capsule by mouth in the morning Docusate Sodium (DSS) 100 MG capsule Indications: Chronic constipation Take 1 capsule (100 mg) by mouth in the morning. 60 capsule 5 09/28/2024 Active Comment on above: Take 100 mg by mouth twice daily. FLUoxetine 40 mg oral capsule (20 sources) Serotonin Reuptake Inhibitor take 1 capsule [...] once daily. haloperidol 10 mg oral tablet (20 sources) Typical Antipsychotic take 1 tablet by [...] 10 mg by mouth four times daily. hydrocortisone acetate 10 mg/ml / pramoxine hydrochloride 10 mg/ml topical foam (8 sources) Corticosteroid Start: 05-19-2025 Hydrocort-Pramoxine, Perianal, 1-1 % foam Indications: Rectal inflammation Insert 1 applicator into the rectum in the morning and 1 applicator before bedtime. 10 g 11 05/19/2025 Active Start: 05-11-2025 End: 05-19-2025 Hydrocort-Pramoxine, Periana l, 1-1 % foam Insert 1 applicator into the rectum in the morning and 1 applicator in the evening. 05/11/2025 05/19/2025 Discontinued (Reorder) Start: 03-24-2025 End: 05-11-2025 hydrocortisone-pramoxine (AL OCTOFOAM-HS) rectal foam Indications: Proctitis Insert 1 applicator into the rectum in the morning and 1 applicator before bedtime. 10 g 1 05/11/2025 Active ibuprofen 800 mg oral tablet (11 sources) Nonsteroidal Anti-inflammatory Drug Start: 01-16-2023 take 1 tablet by mouth every eight hours as needed for pain ibuprofen (MOTRIN) 800 mg tablet Take 1 tablet (800 mg total) by mouth every 8 (eight) hours as needed for pain. 30 tablet 01/16/2023 Active Start: 10-17-2021 take 2 tablets by mo [facility] every four hours as needed ibuprofen (MOTRIN) 200 mg tablet Take 2 tablets by mouth every 4 hours as needed for pain. 0 10/17/2021 Active Comment on above: Take 2 tablets by mo [facility] every 4 hours as needed for pain. loratadine 10 mg oral tablet (20 sources) Start: 12-21-2024 End: 12-21-2025 take 1 tablet by mouth in the morning loratadine (Claritin) 10 MG tablet Indications: Seasonal allergic rhinitis due to pollen Take 1 tablet (10 mg) by mouth in the morning. 30 tablet 11 12/21/2024 12/21/2025 Active Start: 12-18-2023 End: 12-17-2024 take 1 tablet by mouth in the morning loratadine (Claritin) 10 MG tablet Indications: Seasonal allergic rhinitis due to pollen Take 1 tablet (10 mg) by mouth in the morning. 30 tablet 11 12/18/2023 12/17/2024 Active Comment on above: Take 10 mg by mouth. Magnesium Carbonate powd (3 sources) Start: 03-28-2022 End: 06-26-2022 Magnesium Carbonate powd 4 g daily at bedtime. Used for constipation 28 g 3 03/28/2022 06/26/2022 Active Comment on above: 4 g daily at bedtime . Used for constipation peg 3350-sod sulf,xsrs-rxf-net 178.7-7.3-0.5 gram recon soln (2 sources) Start: 04-26-2025 End: 04-27-2025 peg 3350-sod sulf,mwfq-qcn-zus 178.7-7.3-0.5 gram recon soln Indications: Rectal bleeding Take 1 kit by mouth in the morning for 1 dose. Please see instructional sheet given by physicians office. 1 each 04/26/2025 04/27/2025 Active Start: 03-14-2025 End: 03-15-2025 peg 3350-sod sulf,chlr-pot-m ag 178.7-7.3-0.5 gram recon soln Indications: Rectal bleeding , Chronic constipation Take 1 kit by mouth in the morning for 1 dose. Please see instructional sheet given by physicians office. 1 each 03/14/2025 03/15/2025 Active polyethylene glycol 3350 63703 mg powder for oral solution (12 sources) Osmotic Laxative Start: 01-07-2025 End: 01-07-2025 polyethylene glycol (GLYCOLAX) 17 gram packet Indications: Chronic constipation Take 17 g by mouth 2 (two) times a day as needed (1-2 times daily as needed). 60 packet 1 01/07/2025 Active Start: 06-02-2018 take 1 dose by mouth once daily polyethylene glycol 3350 (MIRALAX) 17 gram packet Indications: Rectal ulcer Take 1 Packet by mouth once daily. 30 Packet 5 06/02/2018 Active Comment on above: Take 1 Packet by [facility] once daily. risperiDONE 1 mg oral tablet (11 sources) Atypical Antipsychotic take 1 tablet by mouth in the morning, then take 1 tablet by mouth at bedtime risperiDONE (RisperDAL) 1 mg tablet Take 1 tablet (1 mg total) by mouth in the morning and 1 tablet (1 mg total) before bedtime. Active Comment on above: Take 1 mg by mouth. Problems Active Problems Problem Classification Problem Date Documented Da te Episodic/Chronic Anal and rectal conditions (16 sources) Rectal prolapse; Translations: [Rectal pain] Onset: 01-09-2024 01-26-2024 Episodic Attention-deficit, conduct, and disruptive behavior disorders (14 sources) Oppositional defiant disorder; Translations: [Oppositional defiant disorder] Onset: 01-07-2024 01-07-2024 Chronic Developmental disorders (14 sources) Mild intellectual disability; Translations: [Mild intellectual disabilities] Onset: 01-07-2024 01-07-2024 Chronic Disorders usually diagnosed in infancy, childhood, or adolescence (14 sources) Tic disorder; Translations: [Tic disorder, unspecified] Onset: 01-07-2024 01-07-2024 Chronic Gastrointestinal hemorrhage (9 sources) Blood-tinged feces; Translations: [Melena] Onset: 01-07-2025 Episodic Other aftercare (4 sources) Other residential (current) drug therapy; Translations: [OTH LONGTERM CURRENT DRUG THERAPY] Onset: 02-19-2023 Episodic Other gastrointestinal disorders (3 sources) Defecation straining; Translations: [Other specified symptoms and signs involving the digestive system and abdomen] 01-07-2025 Episodic Other gastrointestinal disorders (1 source) Other specified symptoms and signs involving the digestive system and abdomen; Translations: [Other specified symptoms and signs involving the digestive system and abdomen] Onset: 03-14-2025 Episodic Other upper respiratory disease (16 sources) Allergic rhinitis due to pollen; Translations: [Allergic rhinitis due to pollen] Onset: 01-07-2024 01-07-2024 Chronic Schizophrenia and other psychotic disorders (19 sources) Schizophrenia; Translations: [Schizophrenia, unspecified] Onset: 07-10-2021 07-10-2021 Chronic Unclassified (1 source) Post-op Onset: 01-26-2024 Unclassified (1 source) Medical Problem Onset: 01-09-2024 Unclassified (1 source) [place] [facility] Onset: 01-09-2024 Unclassified (4 sources) Autogenerated Problem Onset: 03-14-2025 03-14-2025 Past or Other Problems Problem Classification Problem Date Documented Da te Episodic/Chronic Administrative/social admission (5 sources) Personal care impairment; Translations: [Need for assistance with personal care] Onset: 01-12-2025 01-12-2025 Episodic Hemorrhoids (3 sources) Hemorrhoids; Translations: [Unspecified hemorrhoids] Onset: 10-17-2021 10-17-2021 Episodic Malaise and fatigue (14 sources) Fatigue; Translations: [Other fatigue] Onset: 01-07-2024 01-07-2024 Episodic Other gastrointestinal disorders (20 sources) Chronic constipation; Translations: [Other constipation] Onset: 01-07-2024 01-07-2024 Episodic Other gastrointestinal disorders (1 source) Other constipation; Translations: [Other constipation] Onset: 01-07-2025 Episodic Other nutritional; endocrine; and metabolic disorders (17 sources) Developmental delay; Translations: [Unspecified lack of expected normal physiological development in childhood] Onset: 07-10-2021 07-10-2021 Episodic Results Test Name Value Interpretation Reference Range Facility ALL CBC WITH AUTO DIFFon BASOPHILS ABSOLUTE AUTO 0 [facility] Basophils/100 WBC (Bld) 0.6 % 0.2 - 2.0 % [facility] Eosinophils/100 WBC (Bld) 2.1 % 0.9 - 7.0 % [facility] Erythrocyte distribution width (RBC) [Ratio] 17.9 % High 11.0 - 15.0 % [facility] Hematocrit (Bld) [Volume fraction] 43.6 % 42.0 - 54.0 % [facility] Hemoglobin (Bld) [Mass/Vol] 12.5 g/dL Low 14.0 - 18.0 g/dL [facility] IMMATURE GRANULOCYTES ABS AUTO 0.01 [facility] Immature granulocytes/100 WBC (Bld) 0.2 % 0.0 - 0.5 % [facility] Interpretation and review of laboratory results Abnormal [facility] LYMPHOCYTES ABSOLUTE AUTO 1.4 [facility] Lymphocytes/100 WBC (Bld) 21.7 % 20.5 - 60.0 % [facility] MCH (RBC) [Entitic mass] 21 pg Low 25.9 - 34.0 pg [facility] MCHC (RBC) [Mass/Vol] 28.7 g/dL Low 29.9 - 35.2 g/dL [facility] MCV (RBC) [Entitic vol] 73.3 fL Low 80.0 - 94.0 fL [facility] MONOCYTES ABSOLUTE AUTO 0.7 [facility] Monocytes/100 WBC (Bld) 10.7 % 1.7 - 12.0 % [facility] NEUTROPHILS ABSOLUTE AUTO 4.2 [facility] Neutrophils/100 WBC (Bld) 64.7 % 43.0 - 75.0 % [facility] Platelet mean volume (Bld) [Entitic vol] 10.4 fL 9.5 - 13.5 [facility]L [facility] TB PLT 295 [facility] RBC 5.95 [facility] WBC 6.5 [facility] ALL CBC WITH AUTO DIFFon BASOPHILS ABSOLUTE AUTO 0.1 [facility] Basophils/100 WBC (Bld) 1 % 0.2 - 2.0 % [facility] Eosinophils/100 WBC (Bld) 5.4 % 0.9 - 7.0 % [facility] Erythrocyte distribution width (RBC) [Ratio] 19.3 % High 11.0 - 15.0 % [facility] Hematocrit (Bld) [Volume fraction] 39.2 % Low 42.0 - 54.0 % [facility] Hemoglobin (Bld) [Mass/Vol] 11.6 g/dL Low 14.0 - 18.0 g/dL [facility] IMMATURE GRANULOCYTES ABS AUTO 0.02 [facility] Immature granulocytes/100 WBC (Bld) 0.3 % 0.0 - 0.5 % [facility] Interpretation and review of laboratory results Abnormal [facility] LYMPHOCYTES ABSOLUTE AUTO 1.6 [facility] Lymphocytes/100 WBC (Bld) 26.2 % 20.5 - 60.0 % [facility] MCH (RBC) [Entitic mass] 21.2 pg Low 25.9 - 34.0 pg [facility] MCHC (RBC) [Mass/Vol] 29.6 g/dL Low 29.9 - 35.2 g/dL [facility] MCV (RBC) [Entitic vol] 71.7 fL Low 80.0 - 94.0 fL [facility] MONOCYTES ABSOLUTE AUTO 0.7 [facility] Monocytes/100 WBC (Bld) 11.8 % 1.7 - 12.0 % [facility] NEUTROPHILS ABSOLUTE AUTO 3.5 [facility] Neutrophils/100 WBC (Bld) 55.3 % 43.0 - 75.0 % [facility] Platelet mean volume (Bld) [Entitic vol] 10.7 fL 9.5 - 13.5 fL [facility] EO # 0.3 [facility] PLT 304 [facility] RBC 5.47 [facility] WBC 6.3 [facility] ALL CBC WITH AUTO DIFFon BASOPHILS ABSOLUTE AUTO 0 [facility] Basophils/100 WBC (Bld) 0.7 % 0.2 - 2.0 % [facility] Eosinophils/100 WBC (Bld) 3.3 % 0.9 - 7.0 % [facility] Erythrocyte distribution width (RBC) [Ratio] 20.8 % High 11.0 - 15.0 % [facility] Hematocrit (Bld) [Volume fraction] 43.3 % 42.0 - 54.0 % [facility] Hemoglobin (Bld) [Mass/Vol] 12.4 g/dL Low 14.0 - 18.0 g/dL [facility] IMMATURE GRANULOCYTES ABS AUTO 0.01 [facility] Immature granulocytes/100 WBC (Bld) 0.2 % 0.0 - 0.5 % [facility] Interpretation and review of laboratory results Abnormal [facility] LYMPHOCYTES ABSOLUTE AUTO 1.6 [facility] Lymphocytes/100 WBC (Bld) 28.8 % 20.5 - 60.0 % [facility] MCH (RBC) [Entitic mass] 20.2 pg Low 25.9 - 34.0 pg [facility] MCHC (RBC) [Mass/Vol] 28.6 g/dL Low 29.9 - 35.2 g/dL [facility] MCV (RBC) [Entitic vol] 70.4 fL Low 80.0 - 94.0 fL [facility] MONOCYTES ABSOLUTE AUTO 0.5 [facility] Monocytes/100 WBC (Bld) 8.9 % 1.7 - 12.0 % [facility] NEUTROPHILS ABSOLUTE AUTO 3.1 [facility] Neutrophils/100 WBC (Bld) 58.1 % 43.0 - 75.0 % [facility] Platelet mean volume (Bld) [Entitic vol] 9.7 fL 9.5 - 13.5 fL [facility] EO # 0.2 [facility] PLT 295 [facility] RBC 6.15 High [facility] Comment on above: 1+ HYPO 1+ OVAL TBH WBC 5.4 [facility] ALL CBC WITH AUTO DIFFon BASOPHILS ABSOLUTE AUTO 0.1 [facility] Basophils/100 WBC (Bld) 0.7 % 0.2 - 2.0 % [facility] Eosinophils/100 WBC (Bld) 1.9 % 0.9 - 7.0 % [facility] Erythrocyte distribution width (RBC) [Ratio] 21.2 % High 11.0 - 15.0 % [facility] Hematocrit (Bld) [Volume fraction] 42.1 % 42.0 - 54.0 % [facility] Hemoglobin (Bld) [Mass/Vol] 12 g/dL Low 14.0 - 18.0 g/dL [facility] IMMATURE GRANULOCYTES ABS AUTO 0.01 [facility] Immature granulocytes/100 WBC (Bld) 0.1 % 0.0 - 0.5 % [facility] Interpretation and review of laboratory results Abnormal [facility] LYMPHOCYTES ABSOLUTE AUTO 1.5 [facility] Lymphocytes/100 WBC (Bld) 21.4 % 20.5 - 60.0 % [facility] MCH (RBC) [Entitic mass] 19.8 pg Low 25.9 - 34.0 pg [facility] MCHC (RBC) [Mass/Vol] 28.5 g/dL Low 29.9 - 35.2 g/dL [facility] MCV (RBC) [Entitic vol] 69.4 fL Low 80.0 - 94.0 fL [facility] MONOCYTES ABSOLUTE AUTO 0.7 [facility] Monocytes/100 WBC (Bld) 9.5 % 1.7 - 12.0 % [facility] NEUTROPHILS ABSOLUTE AUTO 4.6 [facility] Neutrophils/100 WBC (Bld) 66.4 % 43.0 - 75.0 % [facility] TBH EO # 0.1 [facility] TB PLT 274 [facility] TB RBC 6.07 [facility] Comment on above: HYPOCHROMASIA 1+ ANISOCYTOSIS 2+ OVALOCYTOSIS 1+ BE CELLS 1+ TBH WBC 6.9 [facility] ALL CBC WITH AUTO DIFFon BASOPHILS ABSOLUTE AUTO 0 [facility] Basophils/100 WBC (Bld) 0.5 % 0.2 - 2.0 % [facility] Eosinophils/100 WBC (Bld) 1.5 % 0.9 - 7.0 % [facility] Erythrocyte distribution width (RBC) [Ratio] 20.7 % High 11.0 - 15.0 % [facility] Hematocrit (Bld) [Volume fraction] 40.5 % Low 42.0 - 54.0 % [facility] Hemoglobin (Bld) [Mass/Vol] 11.3 g/dL Low 14.0 - 18.0 g/dL [facility] IMMATURE GRANULOCYTES ABS AUTO 0.02 [facility] Immature granulocytes/100 WBC (Bld) 0.3 % 0.0 - 0.5 % [facility] Interpretation and review of laboratory results Abnormal [facility] LYMPHOCYTES ABSOLUTE AUTO 2 [facility] Lymphocytes/100 WBC (Bld) 26.4 % 20.5 - 60.0 % [facility] MCH (RBC) [Entitic mass] 18.8 pg Low 25.9 - 34.0 pg [facility] MCHC (RBC) [Mass/Vol] 27.9 g/dL Low 29.9 - 35.2 g/dL [facility] MCV (RBC) [Entitic vol] 67.5 fL Low 80.0 - 94.0 fL [facility] MONOCYTES ABSOLUTE AUTO 0.8 [facility] Monocytes/100 WBC (Bld) 10.6 % 1.7 - 12.0 % [facility] NEUTROPHILS ABSOLUTE AUTO 4.5 [facility] Neutrophils/100 WBC (Bld) 60.7 % 43.0 - 75.0 % [facility] Platelet mean volume (Bld) [Entitic vol] 9.9 fL 9.5 - 13.5 fL [facility] PLT 284 [facility] RBC 6 [facility] WBC 7.4 [facility] ALL CBC WITH AUTO DIFFon BASOPHILS ABSOLUTE AUTO 0 [facility] Basophils/100 WBC (Bld) 0.7 % 0.2 - 2.0 % [facility] Eosinophils/100 WBC (Bld) 0.5 % Low 0.9 - 7.0 % [facility] Erythrocyte distribution width (RBC) [Ratio] 20.8 % High 11.0 - 15.0 % [facility] Hematocrit (Bld) [Volume fraction] 40.4 % Low 42.0 - 54.0 % [facility] Hemoglobin (Bld) [Mass/Vol] 11.3 g/dL Low 14.0 - 18.0 g/dL [facility] IMMATURE GRANULOCYTES ABS AUTO 0.02 [facility] Immature granulocytes/100 WBC (Bld) 0.3 % 0.0 - 0.5 % [facility] Interpretation and review of laboratory results Abnormal [facility] LYMPHOCYTES ABSOLUTE AUTO 1.6 [facility] Lymphocytes/100 WBC (Bld) 26.3 % 20.5 - 60.0 % [facility] MCH (RBC) [Entitic mass] 18.8 pg Low 25.9 - 34.0 pg [facility] MCHC (RBC) [Mass/Vol] 28 g/dL Low 29.9 - 35.2 g/dL [facility] MCV (RBC) [Entitic vol] 67.1 fL Low 80.0 - 94.0 fL [facility] MONOCYTES ABSOLUTE AUTO 1 High [facility] Monocytes/100 WBC (Bld) 16 % High 1.7 - 12.0 % [facility] NEUTROPHILS ABSOLUTE AUTO 3.5 [facility] Neutrophils/100 WBC (Bld) 56.2 % 43.0 - 75.0 % [facility] Platelet mean volume (Bld) [Entitic vol] 10.3 fL 9.5 - 13.5 fL [facility] EO # 0 [facility] PLT 291 [facility] RBC 6.02 [facility] Comment on above: 2+ OVALOCYTES [facility] WBC 6.1 [facility] ALL CBC WITH AUTO DIFFon Erythrocyte distribution width (RBC) [Ratio] 21.2 % High 11.0 - 15.0 % [facility] Hematocrit (Bld) [Volume fraction] 40.1 % Low 42.0 - 54.0 % [facility] Hemoglobin (Bld) [Mass/Vol] 11.1 g/dL Low 14.0 - 18.0 g/dL [facility] Interpretation and review of laboratory results Abnormal [facility] MCH (RBC) [Entitic mass] 18.6 pg Low 25.9 - 34.0 pg [facility] MCHC (RBC) [Mass/Vol] 27.7 g/dL Low 29.9 - 35.2 g/dL [facility] MCV (RBC) [Entitic vol] 67.1 fL Low 80.0 - 94.0 fL [facility] Platelet mean volume (Bld) [Entitic vol] 9.5 fL 9.5 - 13.5 fL [facility] PLT 269 [facility] RBC 5.98 [facility] WBC 6.3 [facility] ALL CBC WITH AUTO DIFFon BASOPHILS ABSOLUTE AUTO 0 [facility] Basophils/100 WBC (Bld) 0.8 % 0.2 - 2.0 % [facility] Eosinophils/100 WBC (Bld) 1 % 0.9 - 7.0 % [facility] Erythrocyte distribution width (RBC) [Ratio] 21.2 % High 11.0 - 15.0 % [facility] Hematocrit (Bld) [Volume fraction] 38.6 % Low 42.0 - 54.0 % [facility] Hemoglobin (Bld) [Mass/Vol] 10.5 g/dL Low 14.0 - 18.0 g/dL [facility] IMMATURE GRANULOCYTES ABS AUTO 0.01 [facility] Immature granulocytes/100 WBC (Bld) 0.2 % 0.0 - 0.5 % [facility] Interpretation and review of laboratory results Abnormal [facility] LYMPHOCYTES ABSOLUTE AUTO 1.3 [facility] Lymphocytes/100 WBC (Bld) 25.9 % 20.5 - 60.0 % [facility] MCH (RBC) [Entitic mass] 18.1 pg Low 25.9 - 34.0 pg [facility] MCHC (RBC) [Mass/Vol] 27.2 g/dL Low 29.9 - 35.2 g/dL [facility] MCV (RBC) [Entitic vol] 66.4 fL Low 80.0 - 94.0 fL [facility] MONOCYTES ABSOLUTE AUTO 0.7 [facility] Monocytes/100 WBC (Bld) 13.7 % High 1.7 - 12.0 % [facility] NEUTROPHILS ABSOLUTE AUTO 2.9 [facility] Neutrophils/100 WBC (Bld) 58.4 % 43.0 - 75.0 % [facility] TBH EO # 0.1 [facility] TBH PLT 269 [facility] TBH RBC 5.81 [facility] Comment on above: HYPOCHROMASIA 2+ OVALOCYTOSIS 2+ ANISOCYTOSIS 2+ TBH WBC 4.9 [facility]INISYNC [facility] ALL CBC WITH AUTO DIFFon BASOPHILS ABSOLUTE AUTO 0 [facility] Basophils/100 WBC (Bld) 0.3 % 0.2 - 2.0 % [facility] Eosinophils/100 WBC (Bld) 0.6 % Low 0.9 - 7.0 % [facility] Erythrocyte distribution width (RBC) [Ratio] 21.9 % High 11.0 - 15.0 % [facility] Hematocrit (Bld) [Volume fraction] 39.7 % Low 42.0 - 54.0 % [facility] Hemoglobin (Bld) [Mass/Vol] 10.7 g/dL Low 14.0 - 18.0 g/dL [facility] IMMATURE GRANULOCYTES ABS AUTO 0.01 [facility] Immature granulocytes/100 WBC (Bld) 0.1 % 0.0 - 0.5 % [facility] Interpretation and review of laboratory results Abnormal [facility] LYMPHOCYTES ABSOLUTE AUTO 1.8 [facility] Lymphocytes/100 WBC (Bld) 27.6 % 20.5 - 60.0 % [facility] MCH (RBC) [Entitic mass] 17.5 pg Low 25.9 - 34.0 pg [facility] MCHC (RBC) [Mass/Vol] 27 g/dL Low 29.9 - 35.2 g/dL [facility] MCV (RBC) [Entitic vol] 64.8 fL Low 80.0 - 94.0 fL [facility] MONOCYTES ABSOLUTE AUTO 0.9 High [facility] Monocytes/100 WBC (Bld) 13.8 % High 1.7 - 12.0 % [facility] NEUTROPHILS ABSOLUTE AUTO 3.8 [facility] Neutrophils/100 WBC (Bld) 57.6 % 43.0 - 75.0 % [facility] Platelet mean volume (Bld) [Entitic vol] 9.6 fL 9.5 - 13.5 fL [facility] TBH EO # 0 [facility] TBH PLT 316 [facility] TB RBC 6.13 High [facility] Comment on above: HYPOCHROMASIA 1+ MICROCYTOSIS 2+ ANISOCYTOSIS 2+ OVALOCYTES 1+ TBH WBC 6.7 [facility] ALL CBC WITH AUTO DIFFon BASOPHILS ABSOLUTE AUTO 0.0 [facility] Basophils/100 WBC (Bld) 0.4 % 0.2 - 2.0 % [facility] Eosinophils/100 WBC (Bld) 0.4 % Low 0.9 - 7.0 % [facility] Erythrocyte distribution width (RBC) [Ratio] 22.1 % High 11.0 - 15.0 % [facility] Hematocrit (Bld) [Volume fraction] 38.7 % Low 42.0 - 54.0 % [facility] Hemoglobin (Bld) [Mass/Vol] 10.5 g/dL Low 14.0 - 18.0 g/dL [facility] IMMATURE GRANULOCYTES ABS AUTO 0.01 [facility] Immature granulocytes/100 WBC (Bld) 0.2 % 0.0 - 0.5 % [facility] Interpretation and review of laboratory results Abnormal [facility] LYMPHOCYTES ABSOLUTE AUTO 1.8 [facility] Lymphocytes/100 WBC (Bld) 31.6 % 20.5 - 60.0 % [facility] MCH (RBC) [Entitic mass] 17.5 pg Low 25.9 - 34.0 pg [facility] MCHC (RBC) [Mass/Vol] 27.1 g/dL Low 29.9 - 35.2 g/dL [facility] MCV (RBC) [Entitic vol] 64.4 fL Low 80.0 - 94.0 fL [facility] MONOCYTES ABSOLUTE AUTO 0.7 [facility] Monocytes/100 WBC (Bld) 11.5 % 1.7 - 12.0 % [facility] NEUTROPHILS ABSOLUTE AUTO 3.2 [facility] Neutrophils/100 WBC (Bld) 55.9 % 43.0 - 75.0 % [facility] Platelet mean volume (Bld) [Entitic vol] 9.2 fL Low 9.5 - 13.5 fL [facility] EO # 0.0 [facility] PLT 284 [facility] RBC 6.01 [facility] WBC 5.7 [facility] BASIC METABOLIC PANLon 01-09 Anion gap [Moles/Vol] 8 mmol/L Normal 5-15 [facility] Comment on above: Performed By: #### C ANDRES BRYANT, #### [facility] ([id number]) [address], [address] [place] [address] Calcium [Mass/Vol] 8.5 mg/dL Normal 8.5-10.5 [facility] Comment on above: Performed By: #### ANDRES Briggs BCA, #### [facility] ([id number]) [address], [address] [place] [address] Chloride [Moles/Vol] 106 mmol/L Normal 98-109 [facility] Comment on above: Performed By: #### ANDRES Briggs BCA, #### [facility] ([id number]) [address], [address] [place] [address] CO2 [Moles/Vol] 28 mmol/L Normal 22-32 [facility] Comment on above: Performed By: #### ANDRES Briggs BCA, #### [facility] ([id number]) [address], [address] [place] [address] Creatinine [Mass/Vol] 0.93 mg/dL Normal 0.60-1.30 [facility] Comment on above: Result Comment: METH OD TRACEABLE TO IDMS STANDARD Performed By: #### C ANDRES BRYANT, #### [facility] ([id number]) [address], [address] [place] [address] eGFR (CKD-EPI) NON-RACE DEPENDENT >90 Normal >59 [facility] Comment on above: Result Comment: Reported eGFR is based on the CKD-EPI 2020 equation that does not use a race coefficient. Performed By: #### C ANDRES BRYANT, #### [facility] ([id number]) [address], [address] [place] [address] Glucose [Mass/Vol] 87 mg/dL Normal 65-99 [facility] Comment on above: Performed By: #### ANDRES Briggs BCA, #### [facility] ([id number]) [address], [address] [place] [address] Potassium [Moles/Vol] 3.9 mmol/L Normal 3.5-5.0 [facility] Comment on above: Performed By: #### ANDRES Briggs BCA, #### [facility] ([id number]) [address], [address] [place] [address] Sodium [Moles/Vol] 142 mmol/L Normal 134-146 [facility] Comment on above: Performed By: #### ANDRES Briggs BCA, #### [facility] ([id number]) [address], [address] [place] [address] Urea nitrogen [Mass/Vol] 13 mg/dL Normal 5-23 [facility] Comment on above: Performed By: #### ANDRES Briggs BCA, #### [facility] ([id number]) [address], [facility] [address] [place] [address] CBC AND AUTO DIFFon 01-10-20 24 ABSOLUTE BASOPHIL 0.0 X10E9/L Normal 0.0-0.2 [facility] Comment on above: Performed By: #### C ANDRES BRYANT, #### [facility] ([id number]) [address], [address] [place] [address] ABSOLUTE NEUTROPHIL 7.9 X10E9/L High 1.5-6.6 [facility] Comment on above: Performed By: #### ANDRES Briggs BCA, #### [facility] ([id number]) [address], [address] [place] [address] Basophils/100 WBC (Bld) 0.2 % Normal [facility] Comment on above: Performed By: #### ANDRES Briggs BCA, #### [facility] ([id number]) [address], [address] [place] [address] Eosinophils (Bld) [#/Vol] 0.0 10*3/uL Normal 0.0-0.4 [facility] Comment on above: Performed By: #### ANDRES Briggs BCA, #### [facility] ([id number]) [address], [address] [place] [address] Eosinophils/100 WBC (Bld) 0.2 % Normal [facility] Comment on above: Performed By: #### ANDRES Briggs BCA, #### [facility] ([id number]) [address], [address] [place] [address] Erythrocyte distribution width (RBC) [Ratio] 20.7 % High 11.5-15.0 [facility] Comment on above: Performed By: #### ANDRES Briggs BCA, #### [facility] ([id number]) [address], [address] [place] [address] FRAGMENT 1+ Abnormal NONE [facility] Comment on above: Performed By: #### ANDRES Briggs BCA, #### [facility] ([id number]) [address], [address] [place] [address] Hematocrit (Bld) [Volume fraction] 30.0 % Low 39-49 [facility] Comment on above: Performed By: #### C ANDRES BRYANT, #### [facility] ([id number]) [address], [address] [place] [address] Hemoglobin (Bld) [Mass/Vol] 8.7 g/dL Low 13.0-17.0 [facility] Comment on above: Performed By: #### ANDRES Briggs BCA, #### [facility] ([id number]) [address], [facility] [address] [place] [address] HYPOCHROMIA 2+ Abnormal NONE [facility] Comment on above: Performed By: #### Brigitte BRYANT [facility], #### [facility] ([id number]) [address], [address] [place] [address] Lymphocytes (Bld) [#/Vol] 2.6 10*3/uL Normal 1.0-3.5 [facility] Comment on above: Performed By: #### Brigitte BRYANT [facility], #### [facility] ([id number]) [address] [place] [address] Lymphocytes/100 WBC (Bld) 22.1 % Normal [facility] Comment on above: Performed By: #### ANDRES Briggs BCA, #### [facility] ([id number]) [address], [address] [place] [address] MCH (RBC) [Entitic mass] 16.7 pg Low 27-34 [facility] Comment on above: Performed By: #### ANDRES Briggs BCA, #### [facility] ([id number]) [address], [address] [place] [address] MCHC (RBC) [Mass/Vol] 29.1 g/dL Low 32-36 [facility] Comment on above: Performed By: #### ANDRES Briggs BCA, #### [facility] ([id number]) [address], [address] [place] [address] MCV (RBC) [Entitic vol] 58 fL Low 80-100 [facility] Comment on above: Performed By: #### ANDRES Briggs BCA, #### [facility] ([id number]) [address] [place] [address] Monocytes (Bld) [#/Vol] 1.3 10*3/uL High 0-0.9 [facility] Comment on above: Performed By: #### ANDRES Briggs BCA, #### [facility] ([id number]) [address] [place] [address] Monocytes/100 WBC (Bld) 11.2 % Normal [facility] Comment on above: Performed By: #### ANDRES Briggs BCA, #### [facility] ([id number]) [address] [place] [address] Neutrophils/100 WBC (Bld) 66.3 % Normal [facility] Comment on above: Performed By: #### ANDRES Briggs BCA, #### [facility] ([id number]) [address] [place] [address] OVALOCYTE 2+ Abnormal NONE [facility] Comment on above: Performed By: #### ANDRES Briggs BCA, #### [facility] ([id number]) [address], [address] [place] [address] Platelet mean volume (Bld) [Entitic vol] 8.7 fL Normal 7-12 [facility] Comment on above: Performed By: #### ANDRES Briggs BCA, #### [facility] ([id number]) [address], [address] [place] [address] Platelets (Bld) [#/Vol] 326 10*3/uL Normal 150-450 [facility] Comment on above: Performed By: #### C ANDRES BRYANT, #### [facility] ([id number]) [address], [address] [place] [address] RBC COUNT 5.21 X10E12/L Normal 4.10-5.70 [facility] Comment on above: Performed By: #### C ANDRES BRYANT, #### [facility] ([id number]) [address] [place] [address] WBC (Bld) [#/Vol] 11.9 10*3/uL High 4.0-11.0 [facility] Comment on above: Performed By: #### ANDRES Briggs BCA, #### [facility] ([id number]) [address], [address] [place] [address] MAGNESIUMon 01-10-2024 Magnesium [Mass/Vol] 2.0 mg/dL Normal 1.8-2.6 [facility] Comment on above: Performed By: #### ANDRES Briggs BCA, #### [facility] ([id number]) [address] [place] [address] BASIC METABOLIC PANLon 01-08 Anion gap [Moles/Vol] 9 mmol/L Normal 5-15 [facility] Comment on above: Performed By: #### C ANDRES BRYANT, #### [facility] ([id number]) [address] [place] [address] Calcium [Mass/Vol] 8.8 mg/dL Normal 8.5-10.5 [facility] Comment on above: Performed By: #### C MANNY [facility], #### [facility] ([id number]) [address], [address] [place] [address] Chloride [Moles/Vol] 107 mmol/L Normal 98-109 [facility] Comment on above: Performed By: #### C MANNY [facility], #### [facility] ([id number]) [address] [place] [address] CO2 [Moles/Vol] 25 mmol/L Normal 22-32 [facility] Comment on above: Performed By: #### C MANNY [facility], #### [facility] ([id number]) [address] [place] [address] Creatinine [Mass/Vol] 0.96 mg/dL Normal 0.60-1.30 [facility] Comment on above: Result Comment: METH OD TRACEABLE TO IDMS STANDARD Performed By: #### C MANNY [facility], #### [facility] ([id number]) [address] [facility] [address] [place] [address] eGFR (CKD-EPI) NON-RACE DEPENDENT >90 Normal >59 [facility] Comment on above: Result Comment: Reported eGFR is based on the CKD-EPI 2020 equation that does not use a race coefficient. Performed By: #### C MANNY [facility], #### [facility] ([id number]) [address] [place] [address] Glucose [Mass/Vol] 117 mg/dL High 65-99 [facility] Comment on above: Performed By: #### C MANNY [facility], #### [facility] ([id number]) [address], [address] [place] [address] Potassium [Moles/Vol] 4.5 mmol/L Normal 3.5-5.0 [facility] Comment on above: Performed By: #### C ANDRES BRYANT, #### [facility] ([id number]) [address] [place] [address] Sodium [Moles/Vol] 141 mmol/L Normal 134-146 [facility] Comment on above: Performed By: #### ANDRES Briggs BCA, #### [facility] ([id number]) [address], [address] [place] [address] Urea nitrogen [Mass/Vol] 19 mg/dL Normal 5-23 [facility] Comment on above: Performed By: #### ANDRES Briggs BCA, #### [facility] ([id number]) [address], [address] [place] [address] CBC AND AUTO DIFFon 01-09-20 24 ACANTHOCYTE 2+ Abnormal NONE [facility] Comment on above: Performed By: #### ANDRES Briggs BCA, #### [facility] ([id number]) [address], [address] [place] [address] Erythrocyte distribution width (RBC) [Ratio] 21.0 % High 11.5-15.0 [facility] Comment on above: Performed By: #### ANDRES Briggs BCA, #### [facility] ([id number]) [address], [address] [place] [address] FRAGMENT 1+ Abnormal NONE [facility] Comment on above: Performed By: #### ANDRES Briggs BCA, #### [facility] ([id number]) [address] [place] [address] Hematocrit (Bld) [Volume fraction] 32.9 % Low 39-49 [facility] Comment on above: Performed By: #### ANDRES Briggs BCA, #### [facility] ([id number]) [address], [address] [place] [address] Hemoglobin (Bld) [Mass/Vol] 9.4 g/dL Low 13.0-17.0 [facility] Comment on above: Performed By: #### ANDRES Briggs BCA, #### [facility] ([id number]) [address], [address] [place] [address] HYPOCHROMIA 2+ Abnormal NONE [facility] Comment on above: Performed By: #### ANDRES Briggs BCA, #### [facility] ([id number]) [address], [facility] [address] [place] [address] Lymphocytes (Bld) [#/Vol] 0.6 10*3/uL Low 1.0-3.5 [facility] Comment on above: Performed By: #### ANDRES Briggs BCA, #### [facility] ([id number]) [address] [place] [address] Lymphocytes/100 WBC (Bld) 4.0 % Normal [facility] Comment on above: Performed By: #### ANDRES Briggs BCA, #### [facility] ([id number]) [address], [address] [place] [address] MCH (RBC) [Entitic mass] 16.4 pg Low 27-34 [facility] Comment on above: Performed By: #### ANDRES Briggs BCA, #### [facility] ([id number]) [address] [place] [address] MCHC (RBC) [Mass/Vol] 28.6 g/dL Low 32-36 [facility] Comment on above: Performed By: #### ANDRES Briggs BCA, #### [facility] ([id number]) [address], [address] [place] [address] MCV (RBC) [Entitic vol] 57 fL Low 80-100 [facility] Comment on above: Performed By: #### C ANDRES BRYANT, #### [facility] ([id number]) [address] [place] [address] Monocytes (Bld) [#/Vol] 0.5 10*3/uL Normal 0-0.9 [facility] Comment on above: Performed By: #### ANDRES Briggs BCA, #### [facility] ([id number]) [address] [place] [address] Monocytes/100 WBC (Bld) 3.0 % Normal [facility] Comment on above: Performed By: #### ANDRES Briggs BCA, #### [facility] ([id number]) [address], [address] [place] [address] Neutrophils (Bld) [#/Vol] 14.5 10*3/uL High 1.5-6.6 [facility] Comment on above: Performed By: #### ANDRES Briggs BCA, #### [facility] ([id number]) [address] [place] [address] OVALOCYTE 2+ Abnormal NONE [facility] Comment on above: Performed By: #### ANDRES Briggs BCA, #### [facility] ([id number]) [address] [place] [address] Platelet mean volume (Bld) [Entitic vol] 8.7 fL Normal 7-12 [facility] Comment on above: Performed By: #### ANDERS Briggs BCA, #### [facility] ([id number]) [address] [place] [address] Platelets (Bld) [#/Vol] 347 10*3/uL Normal 150-450 [facility] Comment on above: Performed By: #### Brigitte BRYANT, ANDRES, #### [facility] ([id number]) [address] [place] [address] POLYCHROMASIA 1+ Abnormal NONE [facility] Comment on above: Performed By: #### ANDRES Briggs BCA, #### [facility] ([id number]) [address] [place] [address] RBC COUNT 5.76 X10E12/L High 4.10-5.70 [facility] Comment on above: Performed By: #### ANDRES Briggs BCA, #### [facility] ([id number]) [address] [place] [address] SEG NEUTROPHIL 93.0 % Normal [facility] Comment on above: Performed By: #### ANDRES Briggs BCA, #### [facility] ([id number]) [address] [place] [address] TEARDROP 1+ Abnormal NONE [facility] Comment on above: Performed By: #### ANDRES Briggs BCA, #### [facility] ([id number]) [address] [place] [address] WBC (Bld) [#/Vol] 15.6 10*3/uL High 4.0-11.0 [facility] Comment on above: Performed By: #### ANDRES Briggs BCA, #### [facility] ([id number]) [address] [place] [address] MAGNESIUMon 01-09-2024 Magnesium [Mass/Vol] 2.0 mg/dL Normal 1.8-2.6 [facility] Comment on above: Performed By: #### ANDRES Briggs BCA, #### [facility] ([id number]) [address] [place] [address] Surgical Pathologyon 024 Surgical Pathology Normal [facility] Comment on above: Result Comment: [facility] [address] [place] [address] Surgical Pathology Consultation Patient Name:ADDIE COLBERTOB:2000 (Age: 23)Gender:MTaken:4Reported:4Physician(s):Pushpa Silva MD ([phone])Copy To: Rec. #:[id number]: #[id number] Final Pathologic Diagnosis Rectosigmoidectomy: Mucosal ischemic change with superficial mucosal necrosis, acute inflammation, hyalinization of lamina propria and atrophic crypts. Strands of smooth muscle extending into lamina propria with surface erosion compatible with prolapse changes. No malignancy identified. Report Electronically Signed Out ssi/01/13/2024Suangelita Cortez M.D. Interpretation performed at [facility], [address] [place] [address], License number: [id number]. Clinical History Rectal prolapse, ischemic rectum. Gross [...] sections of proximal margin G edematous wall (7,ss,[id number], m1) MD. pacheco/01/09/2024GP Specimen(s) Received Rectum and sigmoid Fee Codes(s): 1; 16790 CBC AUTO DIFFon 03-26-2023 BASO # 0.0 103/ul Normal 0.0-0.1 [facility] Comment on above: Performed By: #### C BC #### [facility] [address] [address] [address] Sonido Bejarano Basophils/100 WBC (Bld) 0.7 % Normal 0.2-2.0 [facility] Comment on above: Performed By: #### C BC #### [facility] [address] [address] [address] Sonido Bejarano EO # 0.1 103/ul Normal 0.0-0.7 [facility] Comment on above: Performed By: #### C BC #### [facility] [address] [address] [address] Sonido Bejarano Eosinophils/100 WBC (Bld) 1.0 % Normal 0.9-7.0 [facility] Comment on above: Performed By: #### C BC #### [facility] [address] [address] [address] Sonido Bejarano Erythrocyte distribution width (RBC) [Ratio] 22.3 % Critically high 11.0-15.0 [facility] Comment on above: Performed By: #### C BC #### [facility] [address] [address] [address] Sonido Bejarano Hematocrit (Bld) [Volume fraction] 32.0 % Critically low 42.0-54.0 [facility] Comment on above: Performed By: #### C BC #### [facility] [address] [address] [address] Sonido Bejarano Hemoglobin (Bld) [Mass/Vol] 8.3 g/dL Critically low 14.0-18.0 [facility] Comment on above: Performed By: #### C BC #### [facility] [address] [address] [address] Sonido Bejarano IG # 0.01 10e3/ul Normal 0.00-0.03 [facility] Comment on above: Performed By: #### C BC #### [facility] [address] [place] [address] Dr. Sonido Bejarano IG % 0.2 % Normal 0.0-0.5 [facility] Comment on above: Performed By: #### C BC #### [facility] [address] [place] [address] Dr. Sonido Bejarano LYMPH # 1.2 103/ul Normal 1.2-3.8 [facility] Comment on above: Performed By: #### C BC #### [facility] [address] [place] [address] Dr. Sonido Bejarano Lymphocytes/100 WBC (Bld) 20.1 % Critically low 20.5-60.0 [facility] Comment on above: Performed By: #### C BC #### [facility] [address] [place] [address] Dr. Sonido Bejarano MANUAL DIFF REQ NO Normal [facility] Comment on above: Performed By: #### C BC #### [facility] [address] [place] [address] Dr. Sonido Bejarano MCH (RBC) [Entitic mass] 15.7 pg Critically low 25.9-34.0 [facility] Comment on above: Performed By: #### C BC #### [facility] [address] [place] [address] Dr. Sonido Bejarano MCHC (RBC) [Mass/Vol] 25.9 g/dL Critically low 29.9-35.2 [facility] [facility] Comment on above: Performed By: #### C BC #### [facility] [address] [place] [address] Dr. Sonido Bejarano MCV (RBC) [Entitic vol] 60.6 fL Critically low 80.0-94.0 [facility] Comment on above: Performed By: #### C BC #### [facility] [address] [place] [address] Dr. Sonido Bejarano MONO # 0.7 103/ul Normal 0.3-0.8 [facility] Comment on above: Performed By: #### C BC #### [facility] [address] [place] [address] Dr. Sonido Bejarano Monocytes/100 WBC (Bld) 12.2 % Critically high 1.7-12.0 [facility] Comment on above: Performed By: #### C BC #### [facility] [address] [place] [address] Dr. Sonido Bejarano NEUT # 3.8 103/ul Normal 1.4-6.5 [facility] Comment on above: Performed By: #### C BC #### [facility] [address] [place] [address] Dr. Sonido Bejarano Neutrophils/100 WBC (Bld) 65.8 % Normal 43.0-75.0 [facility] Comment on above: Performed By: #### C BC #### [facility] [address] [place] [address] Dr. Sonido Bejarano Platelet mean volume (Bld) [Entitic vol] 9.2 fL Critically low 9.5-13.5 [facility] Comment on above: Performed By: #### C BC #### [facility] [address] [place] [address] Dr. Sonido Bejarano PLT 369 103/ul Normal 150-450 [facility] Comment on above: Performed By: #### C BC #### [facility] [address] [place] [address] Dr. Sonido Bejarano RBC 5.28 106/ul Normal 4.70-6.10 [facility] Comment on above: Performed By: #### C BC #### [facility] [address] [place] [address] Dr. Sonido Bejarano WBC 5.8 103/ul Normal 4.0-11.0 [facility] Comment on above: Performed By: #### C BC #### [facility] [address] [place] [address] Dr. Sonido Bejarano CBC AUTO DIFFon 02-19-2023 BASO # 0.0 103/ul Normal 0.0-0.1 [facility] Comment on above: Performed By: #### C BC #### [facility] [address] [place] [address] Dr. Sonido Bejarano Basophils/100 WBC (Bld) 0.7 % Normal 0.2-2.0 [facility] Comment on above: Performed By: #### C BC #### [facility] [address] [place] [address] Dr. Sonido Bejarano EO # 0.1 103/ul Normal 0.0-0.7 [facility] Comment on above: Performed By: #### C BC #### [facility] [address] [place] [address] Dr. Sonido Bejarano Eosinophils/100 WBC (Bld) 1.1 % Normal 0.9-7.0 [facility] Comment on above: Performed By: #### C BC #### [facility] [address] [place] [address] Dr. Sonido Bejarano Erythrocyte distribution width (RBC) [Ratio] 22.7 % Critically high 11.0-15.0 [facility] Comment on above: Performed By: #### C BC #### [facility] [address] [place] [address] Dr. Sonido Bejarano Hematocrit (Bld) [Volume fraction] 32.9 % Critically low 42.0-54.0 [facility] Comment on above: Performed By: #### C BC #### [facility] [address] [place] [address] Dr. Sonido Bejarano Hemoglobin (Bld) [Mass/Vol] 8.2 g/dL Critically low 14.0-18.0 [facility] Comment on above: Performed By: #### C BC #### [facility] [address] [place] [address] Dr. Sonido Bejarano IG # 0.02 10e3/ul Normal 0.00-0.03 [facility] Comment on above: Performed By: #### C BC #### [facility] [address] [place] [address] Dr. Sonido Bejarano IG % 0.3 % Normal 0.0-0.5 [facility] Comment on above: Performed By: #### C BC #### [facility] [address] [address] [address] Sonido Bejarano LYMPH # 1.4 103/ul Normal 1.2-3.8 [facility] Comment on above: Performed By: #### C BC #### [facility] [address] [address] [address] Sonido Bejarano Lymphocytes/100 WBC (Bld) 22.8 % Normal 20.5-60.0 [facility] Comment on above: Performed By: #### C BC #### [facility] [address] [place] [address] Dr. Sonido Bejarano MANUAL DIFF REQ NO Normal [facility] Comment on above: Performed By: #### C BC #### [facility] [address] [place] [address] Dr. Sonido Bejarano MCH (RBC) [Entitic mass] 15.3 pg Critically low 25.9-34.0 [facility] Comment on above: Performed By: #### C BC #### [facility] [address] [place] [address] Dr. Sonido Bejarano MCHC (RBC) [Mass/Vol] 24.9 g/dL Critically low 29.9-35.2 [facility] Comment on above: Performed By: #### C BC #### [facility] [address] [place] [address] Dr. Sonido Bejarano MCV (RBC) [Entitic vol] 61.3 fL Critically low 80.0-94.0 [facility] Comment on above: Performed By: #### C BC #### [facility] [address] [place] [address] Dr. oSnido Bejarano MONO # 0.7 103/ul Normal 0.3-0.8 [facility] Comment on above: Performed By: #### C BC #### [facility] [address] [place] [address] Dr. Sonido Bejarano Monocytes/100 WBC (Bld) 11.6 % Normal 1.7-12.0 [facility] Comment on above: Performed By: #### C BC #### [facility] [address] [place] [address] Dr. Sonido Bejarano NEUT # 3.9 103/ul Normal 1.4-6.5 [facility] Comment on above: Performed By: #### C BC #### [facility] [address] [place] [address] Dr. Sonido Bejarano Neutrophils/100 WBC (Bld) 63.5 % Normal 43.0-75.0 [facility] Comment on above: Performed By: #### C BC #### [facility] [address] [place] [address] Dr. Sonido Bejarano Platelet mean volume (Bld) [Entitic vol] 9.3 fL Critically low 9.5-13.5 [facility] Comment on above: Performed By: #### C BC #### [facility] [address] [place] [address] Dr. Sonido Bejarano PLT 394 103/ul Normal 150-450 [facility] Comment on above: Performed By: #### C BC #### [facility] [address] [place] [address] Dr. Sonido Bejarano RBC 5.37 106/ul Normal 4.70-6.10 [facility] Comment on above: Performed By: #### C BC #### [facility] [address] [place] [address] Dr. Sonido Bejarano WBC 6.1 103/ul Normal 4.0-11.0 [facility] Comment on above: Performed By: #### C BC #### [facility] [address] [place] [address] Dr. Sonido Bejarano CBC AUTO DIFFon 01-15-2023 BASO # 0.0 103/ul Normal 0.0-0.1 [facility] Comment on above: Performed By: #### C BC #### [facility] [address] [place] [address] Dr. Sonido Bejarano Basophils/100 WBC (Bld) 0.3 % Normal 0.2-2.0 [facility] Comment on above: Performed By: #### C BC #### [facility] [address] [place] [address] Dr. Sonido Bejarano EO # 0.0 103/ul Normal 0.0-0.7 [facility] Comment on above: Performed By: #### C BC #### [facility] [address] [place] [address] Dr. Sonido Bejarano Eosinophils/100 WBC (Bld) 0.4 % Critically low 0.9-7.0 [facility] Comment on above: Performed By: #### C BC #### [facility] [address] [place] [address] Dr. Sonido Bejarano Erythrocyte distribution width (RBC) [Ratio] 22.4 % Critically high 11.0-15.0 [facility] Comment on above: Performed By: #### C BC #### [facility] [address] [place] [address] Dr. Sonido Bejarano Hematocrit (Bld) [Volume fraction] 31.5 % Critically low 42.0-54.0 [facility] Comment on above: Performed By: #### C BC #### [facility] [address] [place] [address] Dr. Sonido Bejarano Hemoglobin (Bld) [Mass/Vol] 8.1 g/dL Critically low 14.0-18.0 [facility] Comment on above: Performed By: #### C BC #### [facility] [address] [place] [address] Dr. Sonido Bejarano IG # 0.02 10e3/ul Normal 0.00-0.03 [facility] Comment on above: Performed By: #### C BC #### [facility] [address] [place] [address] Dr. Sonido Bejarano IG % 0.3 % Normal 0.0-0.5 [facility] Comment on above: Performed By: #### C BC #### [facility] [address] [place] [address] Dr. Sonido Bejarano LYMPH # 1.3 103/ul Normal 1.2-3.8 [facility] Comment on above: Performed By: #### C BC #### [facility] [address] [place] [address] Dr. Sonido Bejaraon Lymphocytes/100 WBC (Bld) 19.4 % Critically low 20.5-60.0 [facility] Comment on above: Performed By: #### C BC #### [facility] [address] [place] [address] Dr. Sonido Bejarano MANUAL DIFF REQ NO Normal [facility] Comment on above: Performed By: #### C BC #### [facility] [address] [place] [address] Dr. Sonido Bejarano MCH (RBC) [Entitic mass] 15.5 pg Critically low 25.9-34.0 [facility] Comment on above: Performed By: #### C BC #### [facility] [address] [place] [address] Dr. Sonido Bejarano MCHC (RBC) [Mass/Vol] 25.7 g/dL Critically low 29.9-35.2 [facility] Comment on above: Performed By: #### C BC #### [facility] [address] [place] [address] Dr. Sonido Bejarano MCV (RBC) [Entitic vol] 60.2 fL Critically low 80.0-94.0 [facility] Comment on above: Performed By: #### C BC #### [facility] [address] [place] [address] Dr. Sonido Bejarano MONO # 0.9 103/ul Critically high 0.3-0.8 [facility] Comment on above: Performed By: #### C BC #### [facility] [address] [place] [address] Dr. Sonido Bejarano Monocytes/100 WBC (Bld) 12.9 % Critically high 1.7-12.0 [facility] Comment on above: Performed By: #### C BC #### [facility] [address] [place] [address] Dr. Sonido Bejarano NEUT # 4.5 103/ul Normal 1.4-6.5 [facility] Comment on above: Performed By: #### C BC #### [facility] [address] [place] [address] Dr. Sonido Bejarano Neutrophils/100 WBC (Bld) 66.7 % Normal 43.0-75.0 [facility] Comment on above: Performed By: #### C BC #### [facility] [address] [place] [address] Dr. Sonido Bejarano Platelet mean volume (Bld) [Entitic vol] 9.2 fL Critically low 9.5-13.5 [facility] Comment on above: Performed By: #### C BC #### [facility] [address] [place] [address] Dr. Sonido Bejarano PLT 356 103/ul Normal 150-450 [facility] Comment on above: Performed By: #### C BC #### [facility] [address] [place] [address] Dr. Sonido Bejarano RBC 5.23 106/ul Normal 4.70-6.10 [facility] Comment on above: Result Comment: 2+ P OIKILOCYTOSIS 2+ ANISOCYTOSIS 2+ OVALOCYTE 1+ TEAR DROP CELL 2+ ACANTHOCYTE Performed By: #### C BC #### [facility] [address] [place] [address] Dr. Sonido Bejarano WBC 6.8 103/ul Normal 4.0-11.0 [facility] Comment on above: Performed By: #### C BC #### [facility] [address] [place] [address] Dr. Sonido Bejarano CBC AUTO DIFFon 12-20-2022 BASO # 0.0 103/ul Normal 0.0-0.1 [facility] Comment on above: Performed By: #### C BC #### [facility] [address] [place] [address] Dr. Sonido Bejarano Basophils/100 WBC (Bld) 0.5 % Normal 0.2-2.0 [facility] Comment on above: Performed By: #### C BC #### [facility] [address] [place] [address] Dr. Sonido Bejarano EO # 0.1 103/ul Normal 0.0-0.7 [facility] Comment on above: Performed By: #### C BC #### [facility] [address] [place] [address] Dr. Sonido Bejarano Eosinophils/100 WBC (Bld) 1.3 % Normal 0.9-7.0 [facility] Comment on above: Performed By: #### C BC #### [facility] [address] [place] [address] Dr. Sonido Bejarano Erythrocyte distribution width (RBC) [Ratio] 22.8 % Critically high 11.0-15.0 [facility] Comment on above: Performed By: #### C BC #### [facility] [address] [place] [address] Dr. Sonido Bejarano Hematocrit (Bld) [Volume fraction] 34.5 % Critically low 42.0-54.0 [facility] Comment on above: Performed By: #### C BC #### [facility] [address] [place] [address] Dr. Sonido Bejarano Hemoglobin (Bld) [Mass/Vol] 8.9 g/dL Critically low 14.0-18.0 [facility] Comment on above: Performed By: #### C BC #### [facility] [address] [place] [address] Dr. Sonido Bejarano IG # 0.01 10e3/ul Normal 0.00-0.03 [facility] Comment on above: Performed By: #### C BC #### [facility] [address] [place] [address] Dr. Sonido Bejarano IG % 0.2 % Normal 0.0-0.5 [facility] Comment on above: Performed By: #### C BC #### [facility] [address] [place] [address] Dr. Sonido Bejarano LYMPH # 1.0 103/ul Critically low 1.2-3.8 [facility] Comment on above: Performed By: #### C BC #### [facility] [address] [place] [address] Dr. Sonido Bejarano Lymphocytes/100 WBC (Bld) 18.3 % Critically low 20.5-60.0 [facility] Comment on above: Performed By: #### C BC #### [facility] [address] [address] [address] Sonido Bejarano MANUAL DIFF REQ NO Normal [facility] Comment on above: Performed By: #### C BC #### [facility] [address] [place] [address] Dr. Sonido Bejarano MCH (RBC) [Entitic mass] 15.6 pg Critically low 25.9-34.0 [facility] Comment on above: Performed By: #### C BC #### [facility] [address] [place] [address] Dr. Sonido Bejarano MCHC (RBC) [Mass/Vol] 25.8 g/dL Critically low 29.9-35.2 [facility] Comment on above: Performed By: #### C BC #### [facility] [address] [place] [address] Dr. Sonido Bejarano MCV (RBC) [Entitic vol] 60.6 fL Critically low 80.0-94.0 [facility] Comment on above: Performed By: #### C BC #### [facility] [address] [place] [address] Dr. Sonido Bejarano MONO # 0.7 103/ul Normal 0.3-0.8 [facility] Comment on above: Performed By: #### C BC #### [facility] [address] [place] [address] Dr. Sonido Bejarano Monocytes/100 WBC (Bld) 13.2 % Critically high 1.7-12.0 [facility] Comment on above: Performed By: #### C BC #### [facility] [address] [place] [address] Dr. Sonido Bejarano NEUT # 3.7 103/ul Normal 1.4-6.5 [facility] Comment on above: Performed By: #### C BC #### [facility] [address] [place] [address] Dr. Sonido Bejarano Neutrophils/100 WBC (Bld) 66.5 % Normal 43.0-75.0 [facility] Comment on above: Performed By: #### C BC #### [facility] [address] [place] [address] Dr. Sonido Bejarano Platelet mean volume (Bld) [Entitic vol] 9.6 fL Normal 9.5-13.5 [facility] Comment on above: Performed By: #### C BC #### [facility] [address] [place] [address] Dr. Sonido Bejarano PLT 441 103/ul Normal 150-450 [facility] Comment on above: Performed By: #### C BC #### [facility] [address] [place] [address] Dr. Sonido Bejarano RBC 5.69 106/ul Normal 4.70-6.10 [facility] Comment on above: Result Comment: Anis ocytosis 2+ Hypochromasia 2+ Poikilocytosis 2+ Ovalocytes 1+ Tear drop cells 1+ Acanthocytes 1+ Performed By: #### C BC #### [facility] [address] [place] [address] Dr. Sonido Bejarano WBC 5.5 103/ul Normal 4.0-11.0 [facility] Comment on above: Performed By: #### C BC #### [facility] [address] [place] [address] Dr. Sonido Bejarano CBC AUTO DIFFon 11-20-2022 BASO # 0.1 103/ul Normal 0.0-0.1 [facility] Comment on above: Performed By: #### C BC #### [facility] [address] [place] [address] Dr. Sonido Bejarano Basophils/100 WBC (Bld) 1.0 % Normal 0.2-2.0 [facility] Comment on above: Performed By: #### C BC #### [facility] [address] [place] [address] Dr. Sonido Bejarano EO # 0.1 103/ul Normal 0.0-0.7 [facility] Comment on above: Performed By: #### C BC #### [facility] [address] [place] [address] Dr. Sonido Bejarano Eosinophils/100 WBC (Bld) 2.1 % Normal 0.9-7.0 [facility] Comment on above: Performed By: #### C BC #### [facility] [address] [place] [address] Dr. Sonido Bejarano Erythrocyte distribution width (RBC) [Ratio] 23.0 % Critically high 11.0-15.0 [facility] Comment on above: Performed By: #### C BC #### [facility] [address] [place] [address] Dr. Sonido Bejarano Hematocrit (Bld) [Volume fraction] 32.6 % Critically low 42.0-54.0 [facility] Comment on above: Performed By: #### C BC #### [facility] [address] [place] [address] Dr. Sonido Bejarano Hemoglobin (Bld) [Mass/Vol] 8.0 g/dL Critically low 14.0-18.0 [facility] Comment on above: Performed By: #### C BC #### [facility] [address] [place] [address] Dr. Sonido Bejarano IG # 0.01 10e3/ul Normal 0.00-0.03 [facility] Comment on above: Performed By: #### C BC #### [facility] [address] [place] [address] Dr. Sonido Bejarano IG % 0.2 % Normal 0.0-0.5 [facility] Comment on above: Performed By: #### C BC #### [facility] [address] [place] [address] Dr. Sonido Bejarano LYMPH # 1.1 103/ul Critically low 1.2-3.8 [facility] Comment on above: Performed By: #### C BC #### [facility] [address] [place] [address] Dr. Sonido Bejarano Lymphocytes/100 WBC (Bld) 22.0 % Normal 20.5-60.0 [facility] Comment on above: Performed By: #### C BC #### [facility] [address] [place] [address] Dr. Sonido Bejarano MANUAL DIFF REQ NO Normal [facility] Comment on above: Performed By: #### C BC #### [facility] [address] [address] [address] Sonido Bejarano MCH (RBC) [Entitic mass] 15.6 pg Critically low 25.9-34.0 [facility] Comment on above: Performed By: #### C BC #### [facility] [address] [place] [address] Dr. Sonido Bejarano MCHC (RBC) [Mass/Vol] 24.5 g/dL Critically low 29.9-35.2 [facility] Comment on above: Performed By: #### C BC #### [facility] [address] [place] [address] Dr. Sonido Bejarano MCV (RBC) [Entitic vol] 63.4 fL Critically low 80.0-94.0 [facility] Comment on above: Performed By: #### C BC #### [facility] [address] [place] [address] Dr. Sonido Bejarano MONO # 0.6 103/ul Normal 0.3-0.8 [facility] Comment on above: Performed By: #### C BC #### [facility] [address] [place] [address] Dr. Sonido Bejarano Monocytes/100 WBC (Bld) 13.0 % Critically high 1.7-12.0 [facility] Comment on above: Performed By: #### C BC #### [facility] [address] [place] [address] Dr. Sonido Bejarano NEUT # 3.0 103/ul Normal 1.4-6.5 [facility] Comment on above: Performed By: #### C BC #### [facility] [address] [place] [address] Dr. Sonido Bejarano Neutrophils/100 WBC (Bld) 61.7 % Normal 43.0-75.0 [facility] Comment on above: Performed By: #### C BC #### [facility] [address] [place] [address] Dr. Sonido Bejarano Platelet mean volume (Bld) [Entitic vol] 8.6 fL Critically low 9.5-13.5 [facility] Comment on above: Performed By: #### C BC #### [facility] [address] [place] [address] Dr. Sonido Bejarano PLT 333 103/ul Normal 150-450 [facility] Comment on above: Performed By: #### C BC #### [facility] [address] [place] [address] Dr. Sonido Bejarano RBC 5.14 106/ul Normal 4.70-6.10 [facility] Comment on above: Performed By: #### C BC #### [facility] [address] [place] [address] Dr. Sonido Bejaarno WBC 4.9 103/ul Normal 4.0-11.0 [facility] Comment on above: Performed By: #### C BC #### [facility] [address] [place] [address] Dr. Sonido Bejarano CBC AUTO DIFFon 10-11-2022 BASO # 0.0 103/ul Normal 0.0-0.1 [facility] Comment on above: Performed By: #### C BC #### [facility] [address] [place] [address] Dr. Sonido Bejarano Basophils/100 WBC (Bld) 0.8 % Normal 0.2-2.0 [facility] Comment on above: Performed By: #### C BC #### [facility] [address] [place] [address] Dr. Sonido Bejarano EO # 0.1 103/ul Normal 0.0-0.7 [facility] Comment on above: Performed By: #### C BC #### [facility] [address] [place] [address] Dr. Sonido Bejarano Eosinophils/100 WBC (Bld) 1.5 % Normal 0.9-7.0 [facility] Comment on above: Performed By: #### C BC #### [facility] [address] [place] [address] Dr. Sonido Bejarano Erythrocyte distribution width (RBC) [Ratio] 22.4 % Critically high 11.0-15.0 [facility] Comment on above: Performed By: #### C BC #### [facility] [address] [address] [address] Sonido Bejarano Hematocrit (Bld) [Volume fraction] 32.3 % Critically low 42.0-54.0 [facility] Comment on above: Performed By: #### C BC #### [facility] [address] [address] [address] Sonido Bejarano Hemoglobin (Bld) [Mass/Vol] 8.1 g/dL Critically low 14.0-18.0 [facility] Comment on above: Performed By: #### C BC #### [facility] [address] [address] [address] Sonido Bejarano IG # 0.01 10e3/ul Normal 0.00-0.03 [facility] Comment on above: Performed By: #### C BC #### [facility] [address] [place] [address] Dr. Sonido Bejarano IG % 0.2 % Normal 0.0-0.5 [facility] Comment on above: Performed By: #### C BC #### [facility] [address] [place] [address] Dr. Sonido Bejarano LYMPH # 1.2 103/ul Normal 1.2-3.8 [facility] Comment on above: Performed By: #### C BC #### [facility] [address] [place] [address] Dr. Sonido Bejarano Lymphocytes/100 WBC (Bld) 22.8 % Normal 20.5-60.0 [facility] Comment on above: Performed By: #### C BC #### [facility] [address] [place] [address] Dr. Sonido Bejarano MANUAL DIFF REQ NO Normal [facility] Comment on above: Performed By: #### C BC #### [facility] [address] [place] [address] Dr. Sonido Bejarano MCH (RBC) [Entitic mass] 15.1 pg Critically low 25.9-34.0 [facility] Comment on above: Performed By: #### C BC #### [facility] [address] [address] [address] Sonido Bejarano MCHC (RBC) [Mass/Vol] 25.1 g/dL Critically low 29.9-35.2 [facility] Comment on above: Performed By: #### C BC #### [facility] [address] [address] [address] Sonido Bejarano MCV (RBC) [Entitic vol] 60.0 fL Critically low 80.0-94.0 [facility] Comment on above: Performed By: #### C BC #### [facility] [address] [address] [address] Sonido Bejarano MONO # 0.7 103/ul Normal 0.3-0.8 [facility] Comment on above: Performed By: #### C BC #### [facility] [address] [place] [address] Dr. Sonido Bejarano Monocytes/100 WBC (Bld) 12.5 % Critically high 1.7-12.0 [facility] Comment on above: Performed By: #### C BC #### [facility] [address] [place] [address] Dr. Sonido Bejarano NEUT # 3.2 103/ul Normal 1.4-6.5 [facility] Comment on above: Performed By: #### C BC #### [facility] [address] [place] [address] Dr. Sonido Bejarano Neutrophils/100 WBC (Bld) 62.2 % Normal 43.0-75.0 [facility] Comment on above: Performed By: #### C BC #### [facility] [address] [place] [address] Dr. Sonido Bejarano Platelet mean volume (Bld) [Entitic vol] 8.6 fL Critically low 9.5-13.5 [facility] Comment on above: Performed By: #### C BC #### [facility] [address] [place] [address] Dr. Sonido Bejarano PLT 345 103/ul Normal 150-450 [facility] Comment on above: Performed By: #### C BC #### [facility] [address] [place] [address] Dr. Sonido Bejarano RBC 5.38 106/ul Normal 4.70-6.10 [facility] Comment on above: Performed By: #### C BC #### [facility] [address] [place] [address] Dr. Sonido Bejarano WBC 5.2 103/ul Normal 4.0-11.0 [facility] Comment on above: Performed By: #### C BC #### [facility] [address] [place] [address] Dr. Sonido Bejarano CBC W MANUAL DIFFon 09-18-20 ANISOCYTOSIS 3+ Normal [facility] Comment on above: Performed By: #### C BCMAN #### [facility] [address] [place] [address] Dr. Sonido Bejarano ATYPICAL LYMPH # Normal [facility] Comment on above: Performed By: #### C RAMILA #### [facility] [address] [place] [address] Dr. Sonido Bejarano ATYPICAL LYMPH % Normal [facility] Comment on above: Performed By: #### C RAMILA #### [facility] [address] [place] [address] Dr. Sonido Bejarano BAND # Normal 0.0-0.3 [facility] Comment on above: Performed By: #### C ARMILA #### [facility] [address] [place] [address] Dr. Sonido Bejarano BAND % Normal 0-5 [facility] Comment on above: Performed By: #### C BCMAN #### [facility] [address] [place] [address] Dr. Sonido Bejarano BASOM # 0.00 103/ul Normal 0.00-0.10 [facility] Comment on above: Performed By: #### C BCMAN #### [facility] [address] [place] [address] Dr. Sonido Bejarano BASOM % 0.0 % Critically low 0.2-2.0 [facility] Comment on above: Performed By: #### C BCMAN #### [facility] [address] [address] [address] Sonido Bejarano BLAST # Normal [facility] Comment on above: Performed By: #### C BCKATHERINE #### [facility] [address] [address] [address] Sonido Bejarano BLAST % Normal [facility] Comment on above: Performed By: #### C BCMAN #### [facility] [address] [address] [address] Sonido Bejarano CORRECTED WBC Normal 4.0-11.0 [facility] Comment on above: Performed By: #### C BCKATHERINE #### [facility] [address] [address] [address] Sonido Bejarano EOS # 0.08 103/ul Normal 0.00-0.70 [facility] Comment on above: Performed By: #### C BCKATHERINE #### [facility] [address] [place] [address] Dr. Sonido Bejarano EOS% 2.0 % Normal 0.9-7.0 [facility] Comment on above: Performed By: #### C RAMILA #### [facility] [address] [address] [address] Sonido Bejarano HCT 31.1 % Critically low 42.0-54.0 [facility] Comment on above: Performed By: #### C RAMILA #### [facility] [address] [place] [address] Dr. Sonido Bejarano HGB 8.3 g/dl Critically low 14.0-18.0 [facility] Comment on above: Performed By: #### C BCKATHERINE #### [facility] [address] [place] [address] Dr. Sonido Bejarano HYPOCHROMASIA SLIGHT Normal [facility] Comment on above: Performed By: #### C BCMAN #### [facility] [address] [place] [address] Dr. Sonido Bejarano LYMPHM # 1.13 103/ul Critically low 1.20-3.80 [facility] Comment on above: Performed By: #### C BCMAN #### [facility] [address] [address] [address] Sonido Bejarano LYMPHM% 27.0 % Normal 20.5-60.0 [facility] Comment on above: Performed By: #### C RAMILA #### [facility] [address] [place] [address] Dr. Sonido Bejarano MCH 15.9 pg Critically low 25.9-34.0 [facility] Comment on above: Performed By: #### C RAMILA #### [facility] [address] [place] [address] Dr. Sonido Bejarano MCHC 26.7 g/dl Critically low 29.9-35.2 [facility] Comment on above: Performed By: #### C RAMILA #### [facility] [address] [place] [address] Dr. Sonido Bejarano MCV 59.5 fL Critically low 80.0-94.0 [facility] Comment on above: Performed By: #### C RAMILA #### [facility] [address] [place] [address] Dr. Sonido Bejarano METAMYELOCYTE # Normal [facility] Comment on above: Performed By: #### C RAMILA #### [facility] [address] [place] [address] Dr. Sonido Bejarano METAMYELOCYTE % Normal [facility] Comment on above: Performed By: #### C RAMILA #### [facility] [address] [place] [address] Dr. Sonido Bejarano MICROCYTOSIS 3+ Normal [facility] Comment on above: Performed By: #### C RAMILA #### [facility] [address] [place] [address] Dr. Sonido Bejarano MONOM# 0.55 103/ul Normal 0.30-0.80 [facility] Comment on above: Performed By: #### C RAMILA #### [facility] [address] [place] [address] Dr. Sonido Bejarano MONOM% 13.0 % Critically high 1.7-12.0 [facility] Comment on above: Performed By: #### C RAMILA #### [facility] [address] [address] [address] Sonido Bejarano MPV 9.7 fL Normal 9.5-13.5 [facility] Comment on above: Performed By: #### C RAMILA #### [facility] [address] [address] [address] Sonido Bejarano MYELOCYTE # Normal [facility] Comment on above: Performed By: #### C RAMILA #### [facility] [address] [address] [address] Sonido Bejarano MYELOCYTE % Normal [facility] Comment on above: Performed By: #### C RAMILA #### [facility] [address] [address] [address] Sonido Bejarano NRBC Normal [facility] Comment on above: Performed By: #### C RAMILA #### [facility] [address] [address] [address] Sonido Bejarano PLT 421 103/ul Normal 150-450 [facility] Comment on above: Performed By: #### C RAMILA #### [facility] [address] [address] [address] Sonido Bejarano RBC 5.23 106/ul Normal 4.70-6.10 [facility] Comment on above: Performed By: #### C RAMILA #### [facility] [address] [address] [address] Sonido Bejarano RDW 22.2 % Critically high 11.0-15.0 [facility] Comment on above: Performed By: #### C RAMILA #### [facility] [address] [address] [address] Sonido Bejarano SEG # 2.44 103/ul Normal 1.40-6.50 [facility] Comment on above: Performed By: #### C RAMILA #### [facility] [address] [address] [address] Sonido Bejarano SEG % 58.0 % Normal 43.0-75.0 [facility] Comment on above: Performed By: #### C RAMILA #### [facility] [address] [address] [address] Sonido Bejarano WBC 4.2 103/ul Normal 4.0-11.0 [facility] Comment on above: Performed By: #### C BCMAN #### [facility] [address] [place] [address] Dr. Sonido Bejarano CBC AUTO DIFFon 08-21-2022 BASO # 0.0 103/ul Normal 0.0-0.1 [facility] Comment on above: Performed By: #### C BC #### [facility] [address] [place] [address] Dr. Sonido Bejarano Basophils/100 WBC (Bld) 0.6 % Normal 0.2-2.0 [facility] Comment on above: Performed By: #### C BC #### [facility] [address] [place] [address] Dr. Sonido Bejarano EO # 0.1 103/ul Normal 0.0-0.7 [facility] Comment on above: Performed By: #### C BC #### [facility] [address] [place] [address] Dr. Sonido Bejarano Eosinophils/100 WBC (Bld) 1.0 % Normal 0.9-7.0 [facility] Comment on above: Performed By: #### C BC #### [facility] [address] [place] [address] Dr. Sonido Bejarano Erythrocyte distribution width (RBC) [Ratio] 21.9 % Critically high 11.0-15.0 [facility] Comment on above: Result Comment: anis ocytosis 2+ Performed By: #### C BC #### [facility] [address] [place] [address] Dr. Sonido Bejarano Hematocrit (Bld) [Volume fraction] 32.7 % Critically low 42.0-54.0 [facility] Comment on above: Performed By: #### C BC #### [facility] [address] [place] [address] Dr. Sonido Bejarano Hemoglobin (Bld) [Mass/Vol] 8.4 g/dL Critically low 14.0-18.0 [facility] Comment on above: Performed By: #### C BC #### [facility] [address] [address] [address] Sonido Bejarano IG # 0.01 10e3/ul Normal 0.00-0.03 [facility] Comment on above: Performed By: #### C BC #### [facility] [address] [address] [address] Sonido Bejarano IG % 0.2 % Normal 0.0-0.5 [facility] Comment on above: Performed By: #### C BC #### [facility] [address] [address] [address] Sondio Bejarano LYMPH # 1.1 103/ul Critically low 1.2-3.8 [facility] Comment on above: Performed By: #### C BC #### [facility] [address] [place] [address] Dr. Sonido Bejarano Lymphocytes/100 WBC (Bld) 22.3 % Normal 20.5-60.0 [facility] Comment on above: Performed By: #### C BC #### [facility] [address] [place] [address] Dr. Sonido Bejarano MANUAL DIFF REQ NO Normal [facility] Comment on above: Performed By: #### C BC #### [facility] [address] [place] [address] Dr. Sonido Bejarano MCH (RBC) [Entitic mass] 15.3 pg Critically low 25.9-34.0 [facility] Comment on above: Performed By: #### C BC #### [facility] [address] [place] [address] Dr. Sonido Bejarano MCHC (RBC) [Mass/Vol] 25.7 g/dL Critically low 29.9-35.2 [facility] Comment on above: Result Comment: hypo chromasia 2+ Performed By: #### C BC #### [facility] [address] [place] [address] Dr. Sonido Bejarano MCV (RBC) [Entitic vol] 59.6 fL Critically low 80.0-94.0 [facility] Comment on above: Result Comment: micr ocytosis 3+ Performed By: #### C BC #### [facility] [address] [place] [address] Dr. Sonido Bejarano MONO # 0.5 103/ul Normal 0.3-0.8 [facility] Comment on above: Performed By: #### C BC #### [facility] [address] [address] [address] Sonido Bejarano Monocytes/100 WBC (Bld) 10.8 % Normal 1.7-12.0 [facility] Comment on above: Performed By: #### C BC #### [facility] [address] [place] [address] Dr. Sonido Bejarano NEUT # 3.2 103/ul Normal 1.4-6.5 [facility] Comment on above: Performed By: #### C BC #### [facility] [address] [place] [address] Dr. Sonido Bejarano Neutrophils/100 WBC (Bld) 65.1 % Normal 43.0-75.0 [facility] Comment on above: Performed By: #### C BC #### [facility] [address] [place] [address] Dr. Sonido Bejarano Platelet mean volume (Bld) [Entitic vol] 9.5 fL Normal 9.5-13.5 [facility] Comment on above: Performed By: #### C BC #### [facility] [address] [place] [address] Dr. Sonido Bejarano PLT 415 103/ul Normal 150-450 [facility] Comment on above: Performed By: #### C BC #### [facility] [address] [place] [address] Dr. Sonido Bejarano RBC 5.49 106/ul Normal 4.70-6.10 [facility] Comment on above: Performed By: #### C BC #### [facility] [address] [place] [address] Dr. Sonido Bejarano WBC 5.0 103/ul Normal 4.0-11.0 [facility] Comment on above: Performed By: #### C BC #### [facility] [address] [address] [address] Sonido Bejarano CBC AUTO DIFFon 08-02-2022 BASO # 0.0 103/ul Normal 0.0-0.1 [facility] Comment on above: Performed By: #### C BC #### [facility] [address] [place] [address] Dr. Sonido Bejarano Basophils/100 WBC (Bld) 0.3 % Normal 0.2-2.0 [facility] Comment on above: Performed By: #### C BC #### [facility] [address] [place] [address] Dr. Sonido Bejarano EO # 0.0 103/ul Normal 0.0-0.7 [facility] Comment on above: Performed By: #### C BC #### [facility] [address] [place] [address] Dr. Sonido Bejarano Eosinophils/100 WBC (Bld) 0.7 % Critically low 0.9-7.0 [facility] Comment on above: Performed By: #### C BC #### [facility] [address] [place] [address] Dr. Sonido Bejarano Erythrocyte distribution width (RBC) [Ratio] 21.9 % Critically high 11.0-15.0 [facility] Comment on above: Performed By: #### C BC #### [facility] [address] [place] [address] Dr. Sonido Bejarano Hematocrit (Bld) [Volume fraction] 30.0 % Critically low 42.0-54.0 [facility] Comment on above: Performed By: #### C BC #### [facility] [address] [place] [address] Dr. Sonido Bejarano Hemoglobin (Bld) [Mass/Vol] 7.8 g/dL Critically low 14.0-18.0 [facility] Comment on above: Performed By: #### C BC #### [facility] [address] [place] [address] Dr. Sonido Bejarano IG # 0.01 10e3/ul Normal 0.00-0.03 [facility] Comment on above: Performed By: #### C BC #### [facility] [address] [address] [address] Sonido Bejarano IG % 0.2 % Normal 0.0-0.5 [facility] Comment on above: Performed By: #### C BC #### [facility] [address] [place] [address] Dr. Sonido Bejarano LYMPH # 1.0 103/ul Critically low 1.2-3.8 [facility] Comment on above: Performed By: #### C BC #### [facility] [address] [place] [address] Dr. Sonido Bejarano Lymphocytes/100 WBC (Bld) 18.0 % Critically low 20.5-60.0 [facility] Comment on above: Performed By: #### C BC #### [facility] [address] [place] [address] Dr. Sonido Bejarano MANUAL DIFF REQ NO Normal [facility] Comment on above: Performed By: #### C BC #### [facility] [address] [place] [address] Dr. Sonido Bejarano MCH (RBC) [Entitic mass] 15.9 pg Critically low 25.9-34.0 [facility] Comment on above: Performed By: #### C BC #### [facility] [address] [place] [address] Dr. Sonido Bejarano MCHC (RBC) [Mass/Vol] 26.0 g/dL Critically low 29.9-35.2 [facility] Comment on above: Performed By: #### C BC #### [facility] [address] [place] [address] Dr. Sonido Bejarano MCV (RBC) [Entitic vol] 61.2 fL Critically low 80.0-94.0 [facility] Comment on above: Performed By: #### C BC #### [facility] [address] [place] [address] Dr. Sonido Bejarano MONO # 0.5 103/ul Normal 0.3-0.8 [facility] Comment on above: Performed By: #### C BC #### [facility] [address] [place] [address] Dr. Sonido Bejarano Monocytes/100 WBC (Bld) 8.7 % Normal 1.7-12.0 [facility] Comment on above: Performed By: #### C BC #### [facility] [address] [place] [address] Dr. Sonido Bejarano NEUT # 4.1 103/ul Normal 1.4-6.5 [facility] Comment on above: Performed By: #### C BC #### [facility] [address] [place] [address] Dr. Sonido Bejarano Neutrophils/100 WBC (Bld) 72.1 % Normal 43.0-75.0 [facility] Comment on above: Performed By: #### C BC #### [facility] [address] [place] [address] Dr. Sonido Bejarano Platelet mean volume (Bld) [Entitic vol] 9.3 fL Critically low 9.5-13.5 [facility] Comment on above: Performed By: #### C BC #### [facility] [address] [place] [address] Dr. Sonido Bejarano PLT 339 103/ul Normal 150-450 [facility] Comment on above: Performed By: #### C BC #### [facility] [address] [place] [address] Dr. Sonido Bejarano RBC 4.90 106/ul Normal 4.70-6.10 [facility] Comment on above: Performed By: #### C BC #### [facility] [address] [place] [address] Dr. Sonido Bejarano WBC 5.7 103/ul Normal 4.0-11.0 [facility] Comment on above: Performed By: #### C BC #### [facility] [address] [place] [address] Dr. Sonido Bejarano CBC AUTO DIFFon 06-17-2022 BASO # 0.0 103/ul Normal 0.0-0.1 [facility] Comment on above: Performed By: #### C BC #### [facility] [address] [address] [address] Sonido Bejarano Basophils/100 WBC (Bld) 0.7 % Normal 0.2-2.0 [facility] Comment on above: Performed By: #### C BC #### [facility] [address] [address] [address] Sonido Bejarano EO # 0.3 103/ul Normal 0.0-0.7 [facility] Comment on above: Performed By: #### C BC #### [facility] [address] [address] [address] Sonido Bejarano Eosinophils/100 WBC (Bld) 5.3 % Normal 0.9-7.0 [facility] [facility] Comment on above: Performed By: #### C BC #### [facility] [address] [place] [address] Dr. Sonido Bejarano Erythrocyte distribution width (RBC) [Ratio] 22.1 % Critically high 11.0-15.0 [facility] Comment on above: Performed By: #### C BC #### [facility] [address] [place] [address] Dr. Sonido Bejarano Hematocrit (Bld) [Volume fraction] 32.2 % Critically low 42.0-54.0 [facility] Comment on above: Performed By: #### C BC #### [facility] [address] [place] [address] Dr. Sonido Bejarano Hemoglobin (Bld) [Mass/Vol] 8.2 g/dL Critically low 14.0-18.0 [facility] Comment on above: Performed By: #### C BC #### [facility] [address] [place] [address] Dr. Sonido Bejarano IG # 0.01 10e3/ul Normal 0.00-0.03 [facility] Comment on above: Performed By: #### C BC #### [facility] [address] [place] [address] Dr. Sonido Bejarano IG % 0.2 % Normal 0.0-0.5 [facility] Comment on above: Performed By: #### C BC #### [facility] [address] [address] [address] Sonido Bejarano LYMPH # 1.1 103/ul Critically low 1.2-3.8 [facility] Comment on above: Performed By: #### C BC #### [facility] [address] [address] [address] Sonido Bejarano Lymphocytes/100 WBC (Bld) 19.3 % Critically low 20.5-60.0 [facility] Comment on above: Performed By: #### C BC #### [facility] [address] [address] [address] Sonido Bejarano MANUAL DIFF REQ NO Normal [facility] Comment on above: Performed By: #### C BC #### [facility] [address] [address] [address] Sonido Bejarano MCH (RBC) [Entitic mass] 15.8 pg Critically low 25.9-34.0 [facility] Comment on above: Performed By: #### C BC #### [facility] [address] [address] [address] Sonido Bejarano MCHC (RBC) [Mass/Vol] 25.5 g/dL Critically low 29.9-35.2 [facility] Comment on above: Performed By: #### C BC #### [facility] [address] [address] [address] Sonido Bejarano MCV (RBC) [Entitic vol] 62.0 fL Critically low 80.0-94.0 [facility] Comment on above: Performed By: #### C BC #### [facility] [address] [address] [address] Sonido Bejarano MONO # 0.9 103/ul Critically high 0.3-0.8 [facility] Comment on above: Performed By: #### C BC #### [facility] [address] [address] [address] Sonido Bejarano Monocytes/100 WBC (Bld) 16.0 % Critically high 1.7-12.0 [facility] Comment on above: Performed By: #### C BC #### [facility] [address] [address] [address] Sonido Bejarano NEUT # 3.2 103/ul Normal 1.4-6.5 [facility] Comment on above: Performed By: #### C BC #### [facility] [address] [place] [address] Dr. Sonido Bejarano Neutrophils/100 WBC (Bld) 58.5 % Normal 43.0-75.0 [facility] Comment on above: Performed By: #### C BC #### [facility] [address] [place] [address] Dr. Sonido Bejarano Platelet mean volume (Bld) [Entitic vol] 9.3 fL Critically low 9.5-13.5 [facility] Comment on above: Performed By: #### C BC #### [facility] [address] [place] [address] Dr. Sonido Bejarano PLT 335 103/ul Normal 150-450 [facility] Comment on above: Performed By: #### C BC #### [facility] [address] [place] [address] Dr. Sonido Bejarano RBC 5.19 106/ul Normal 4.70-6.10 [facility] Comment on above: Performed By: #### C BC #### [facility] [address] [place] [address] Dr. Sonido Bejarano WBC 5.5 103/ul Normal 4.0-11.0 [facility] Comment on above: Performed By: #### C BC #### [facility] [address] [place] [address] Dr. Sonido Bejarano CBC AUTO DIFFon 05-15-2022 BASO # 0.0 103/ul Normal 0.0-0.1 [facility] Comment on above: Performed By: #### C BC #### [facility] [address] [place] [address] Dr. Sonido Bejarano Basophils/100 WBC (Bld) 0.8 % Normal 0.2-2.0 [facility] Comment on above: Performed By: #### C BC #### [facility] [address] [place] [address] Dr. Sonido Bejarano EO # 0.1 103/ul Normal 0.0-0.7 [facility] Comment on above: Performed By: #### C BC #### [facility] [address] [place] [address] Dr. Sonido Bejarano Eosinophils/100 WBC (Bld) 2.3 % Normal 0.9-7.0 [facility] Comment on above: Performed By: #### C BC #### [facility] [address] [place] [address] Dr. Sonido Bejarano Erythrocyte distribution width (RBC) [Ratio] 21.5 % Critically high 11.0-15.0 [facility] Comment on above: Performed By: #### C BC #### [facility] [address] [place] [address] Dr. Sonido Bejarano Hematocrit (Bld) [Volume fraction] 30.5 % Critically low 42.0-54.0 [facility] Comment on above: Performed By: #### C BC #### [facility] [address] [place] [address] Dr. Sonido Bejarano Hemoglobin (Bld) [Mass/Vol] 7.9 g/dL Critically low 14.0-18.0 [facility] Comment on above: Performed By: #### C BC #### [facility] [address] [place] [address] Dr. Sonido Bejarano IG # 0.01 10e3/ul Normal 0.00-0.03 [facility] Comment on above: Performed By: #### C BC #### [facility] [address] [place] [address] Dr. Sonido Bejarano IG % 0.2 % Normal 0.0-0.5 [facility] Comment on above: Performed By: #### C BC #### [facility] [address] [place] [address] Dr. Sonido Bejarano LYMPH # 1.3 103/ul Normal 1.2-3.8 [facility] Comment on above: Performed By: #### C BC #### [facility] [address] [place] [address] Dr. Sonido Bejarano Lymphocytes/100 WBC (Bld) 24.6 % Normal 20.5-60.0 [facility] Comment on above: Performed By: #### C BC #### [facility] [address] [place] [address] Dr. Sonido Bejarano MANUAL DIFF REQ NO Normal [facility] Comment on above: Performed By: #### C BC #### [facility] [address] [place] [address] Dr. Sonido Bejarano MCH (RBC) [Entitic mass] 15.6 pg Critically low 25.9-34.0 [facility] Comment on above: Performed By: #### C BC #### [facility] [address] [place] [address] Dr. Sonido Bejarano MCHC (RBC) [Mass/Vol] 25.9 g/dL Critically low 29.9-35.2 [facility] Comment on above: Performed By: #### C BC #### [facility] [address] [place] [address] Dr. Sonido Bejarano MCV (RBC) [Entitic vol] 60.4 fL Critically low 80.0-94.0 [facility] Comment on above: Performed By: #### C BC #### [facility] [address] [place] [address] Dr. Sonido Bejarano MONO # 0.6 103/ul Normal 0.3-0.8 [facility] Comment on above: Performed By: #### C BC #### [facility] [address] [place] [address] Dr. Sonido Bejarano Monocytes/100 WBC (Bld) 12.1 % Critically high 1.7-12.0 [facility] Comment on above: Performed By: #### C BC #### [facility] [address] [place] [address] Dr. Sonido Bejarano NEUT # 3.1 103/ul Normal 1.4-6.5 [facility] Comment on above: Performed By: #### C BC #### [facility] [address] [place] [address] Dr. Sonido Bejarano Neutrophils/100 WBC (Bld) 60.0 % Normal 43.0-75.0 [facility] Comment on above: Performed By: #### C BC #### [facility] [address] [place] [address] Dr. Sonido Bejarano Platelet mean volume (Bld) [Entitic vol] 9.6 fL Normal 9.5-13.5 [facility] Comment on above: Performed By: #### C BC #### [facility] [address] [place] [address] Dr. Sonido Bejarano PLT 399 103/ul Normal 150-450 [facility] Comment on above: Performed By: #### C BC #### [facility] [address] [place] [address] Dr. Sonido Bejarano RBC 5.05 106/ul Normal 4.70-6.10 [facility] Comment on above: Performed By: #### C BC #### [facility] [address] [place] [address] Dr. Sonido Bejarano WBC 5.1 103/ul Normal 4.0-11.0 [facility] Comment on above: Performed By: #### C BC #### [facility] [address] [place] [address] Dr. Sonido Bejarano CBC AUTO DIFFon 04-15-2022 BASO # 0.0 103/ul Normal 0.0-0.1 [facility] Comment on above: Performed By: #### C BC #### [facility] [address] [place] [address] Dr. Sonido Bejarano Basophils/100 WBC (Bld) 0.3 % Normal 0.2-2.0 [facility] Comment on above: Performed By: #### C BC #### [facility] [address] [place] [address] Dr. Sonido Bejarano EO # 0.1 103/ul Normal 0.0-0.7 [facility] Comment on above: Performed By: #### C BC #### [facility] [address] [place] [address] Dr. Sonido Bejarano Eosinophils/100 WBC (Bld) 1.0 % Normal 0.9-7.0 [facility] Comment on above: Performed By: #### C BC #### [facility] [address] [place] [address] Dr. Sonido Bejarano Erythrocyte distribution width (RBC) [Ratio] 21.2 % Critically high 11.0-15.0 [facility] Comment on above: Performed By: #### C BC #### [facility] [address] [place] [address] Dr. Sonido Bejarano Hematocrit (Bld) [Volume fraction] 32.2 % Critically low 42.0-54.0 [facility] Comment on above: Performed By: #### C BC #### [facility] [address] [place] [address] Dr. Sonido Bejarano Hemoglobin (Bld) [Mass/Vol] 8.3 g/dL Critically low 14.0-18.0 [facility] Comment on above: Performed By: #### C BC #### [facility] [address] [place] [address] Dr. Sonido Bejarano IG # 0.03 10e3/ul Normal 0.00-0.03 [facility] Comment on above: Performed By: #### C BC #### [facility] [address] [place] [address] Dr. Sonido Bejarano IG % 0.4 % Normal 0.0-0.5 [facility] Comment on above: Performed By: #### C BC #### [facility] [address] [place] [address] Dr. Sonido Bejarano LYMPH # 1.0 103/ul Critically low 1.2-3.8 [facility] Comment on above: Performed By: #### C BC #### [facility] [address] [place] [address] Dr. Sonido Bejarano Lymphocytes/100 WBC (Bld) 15.2 % Critically low 20.5-60.0 [facility] Comment on above: Performed By: #### C BC #### [facility] [address] [place] [address] Dr. Sonido Bejarano MANUAL DIFF REQ NO Normal [facility] Comment on above: Performed By: #### C BC #### [facility] [address] [address] [address] Sonido Bejarano MCH (RBC) [Entitic mass] 16.1 pg Critically low 25.9-34.0 [facility] Comment on above: Performed By: #### C BC #### [facility] [address] [place] [address] Dr. Sonido Bejarano MCHC (RBC) [Mass/Vol] 25.8 g/dL Critically low 29.9-35.2 [facility] Comment on above: Performed By: #### C BC #### [facility] [address] [place] [address] Dr. Sonido Bejarano MCV (RBC) [Entitic vol] 62.4 fL Critically low 80.0-94.0 [facility] Comment on above: Performed By: #### C BC #### [facility] [address] [place] [address] Dr. Sonido Bejarano MONO # 0.6 103/ul Normal 0.3-0.8 [facility] Comment on above: Performed By: #### C BC #### [facility] [address] [place] [address] Dr. Sonido Bejarano Monocytes/100 WBC (Bld) 8.5 % Normal 1.7-12.0 [facility] Comment on above: Performed By: #### C BC #### [facility] [address] [place] [address] Dr. Sonido Bejarano NEUT # 5.0 103/ul Normal 1.4-6.5 [facility] Comment on above: Performed By: #### C BC #### [facility] [address] [place] [address] Dr. Sonido Bejarano Neutrophils/100 WBC (Bld) 74.6 % Normal 43.0-75.0 [facility] Comment on above: Performed By: #### C BC #### [facility] [address] [place] [address] Dr. Sonido Bejarano Platelet mean volume (Bld) [Entitic vol] 9.9 fL Normal 9.5-13.5 [facility] Comment on above: Performed By: #### C BC #### [facility] [address] [address] [address] Sonido Bejarano PLT 355 103/ul Normal 150-450 [facility] Comment on above: Performed By: #### C BC #### [facility] [address] [address] [address] Sonido Bejarano RBC 5.16 106/ul Normal 4.70-6.10 [facility] Comment on above: Result Comment: 1+ o valocytes slight hypochromic slight microchromic Performed By: #### C BC #### [facility] [address] [address] [address] Sonido Bejarano WBC 6.7 103/ul Normal 4.0-11.0 [facility] Comment on above: Performed By: #### C BC #### [facility] [address] [address] [address] Sonido Diana 03-28-2022 CNOV Office Visit ([facility] ) RJ COLBERT ([id number]) 2000 [place] [facility] [place] Department 03/28/22 11:20 AM ARNOLD GENAO [facility] During your visit today, we recorded [...] the office on 11/16/21 with Cristal Nava PRODUCTION GEAR CUTTER for follow up visit after he underwent [...] exam Anorectal: External exam reveals: see below Junior Accountant present: yes Assessment Assessment and Plan: Rj [...] Assessed Reason for Visit: Established Patient Follow-Up [17923359] Rectal Bleeding [202] Primary Visit Diagnosis:Hematochezia [K92.1] [...] benztropine (C (more content not included)... Normal [facility] Lisa 03-28-2022 CNPN Telephone ([facility]) RJ CLOBERT ([id number]) 2000 Tima Reyez* Date Time Provider Department 03/28/22 ARNOLD GENAO [facility] During your visit today, we recorded the following information about you: Essie Skinner 03/28/2022 1:41 PM Signed Patient called and left message regarding prescription from today's visit return call to [phone] Charley Mcclelland RN 03/28/2022 2:49 PM Signed [...] Fully Assessed Reason for Visit: Patient Question [3127] Prescriptions as of 03/28/2022 - acetaminophen (TYLENOL) [...] Encounter Status:Closed by CHARLEY MCCLELLAND on 03/28/22 [facility] Telephone ([id number]) RJ COLBERT ([id number]) 2000 [address] Joseph Date Time Provider Department 03/28/22 ARNOLD GENAO [id number] During your visit today, we recorded the following information about you: Sara Rose ADM 03/28/2022 3:45 PM Signed Pharmacy, [facility], [facility], phone , any pharmacist to clarify [...] by CHARLEY MCCLELLAND on 03/28/22 [facility] CNOVon 11-16-2021 CNOV Office Visit ([facility] ) RJ COLBERT ([id number]) 2000 Tima Joseph Date Time Provider Department 11/16/21 1:30 PM CRISTAL NAVA During your visit today, we recorded the following information about you: Pulse Blood pressure Weight Height 60/minute 136/80 96.2 kg 1.803 m Cristal Naav APRN.FIRE LOSS PREVENTION ENGINEER 11/16/2021 12:59 PM Signed COLORECTAL SURGERY November [...] results with patient and POA. Cristal Nava APRN.FIRE LOSS PREVENTION ENGINEER Colorectal Surgery Referring Provider: ARNOLD GENAO [[id number]] Allergies As of Date: 11/16/2021 (No Known Allergies) Date Reviewed: 11/16/2021 Reviewed by: Cristal Nava APRN.[facility] - Fully Assessed Reason for Visit: [...] 07/10/2021 Hemorrho (more content not included)... Normal [facility] ANES POSTPROC EVALon 021 ANES POSTPROC EVAL HNO ID: [id number] Author: Michael Martínez MD Service: Anesthesiology Author Type: Anesthesiologist Type: Anesthesia Postprocedure Evaluation Filed: 10/17/2021 10:23 AM Note Text: POST ANESTHESIA EVALUATION NOTE : 2000 Procedure Summary Date: 10/17/21 Room / Location: [address] / [facility] Anesthesia Start: 841 Anesthesia Stop: 913 [...] October 17, 2021 TIME: 10:23 AM CSN: [id number] [facility] ANES PRE-OPon 10-17-2021 ANES PRE-OP HNO ID: [id number] Author: Michael Martínez MD Service: Anesthesiology Author Type: Anesthesiologist Type: Anesthesia Preprocedure Evaluation Filed: 10/17/2021 8:32 AM Note Text: ANESTHESIOLOGY DAY OF SURGERY NOTE : 2000 Procedure Information Date/Time: 10/17/21729 Procedure: HEMORRHOIDECTOMY EXTERNAL > 2 COLUMNS/GROUPS (N/A ) Location: [address] Surgeons: Arnold Genao MD Estimated body [...] obtained phone consent from patient's POA, Soren Pinedaeugene. I placed a phone call to Mr. [...] Time BP 120/80 10/17/21 0655 Pulse 80 10/17/21654 Resp 16 10/17/21 06 Temp 36.2 ?C [...] October 17, 2021 TIME: 8:27 AM CSN: [id number] [facility] BRIEF OP NOTon 10-17-2021 BRIEF OP NOT HNO ID: [id number] Author: Jared Rowe MD Service: Colorectal Author Type: Resident Type: Brief Op Note Filed: 10/17/2021 9:15 AM Note Text: BRIEF OPERATIVE / PROCEDURE NOTE LOG ID: [id number] SURGERY/PROCEDURE DATE: 10/17/2021 INCISION/PROCEDURE START TIME: 8:55 AM INCISION CLOSE/PROCEDURE END TIME: 9:02 AM SURGEON(S)/PROCEDURALIS T(S) AND METER ENGINEER(S): Surgeon(s) and Role: * Arnold Genao MD [...] DATE: October 17, 2021 TIME: 9:13 AM [facility] HISTORY PHYSICALon HISTORY PHYSICAL HNO ID: [id number] Author: Jared Rowe MD Service: Colorectal Author [...] DATE: October 17, 2021 TIME: 7:22 AM [facility] OPERATIVE NOon 10-17-2021 OPERATIVE NO HNO ID: [id number] Author: Arnold Genao MD Service: Colorectal Author Type: Physician Type: Operative Report Filed: 10/30/2021 11:21 AM Note Text: [facility] - Operative Report RJ COLBERT : 2000 AGE: 21. SEX: M PATIENT TYPE: A HOSP SVC: [facility] LOCATION: [facility] ATTENDING PHYSICIAN: Anrold Genao M.D. [facility] NUMBER: [id number] DATE OF SURGERY/PROCEDURE: 10/17/2021 INCISION/PROCEDURE START TIME: 8:55 AM INCISION CLOSE/PROCEDURE END TIME: 9:02 AM PREOPERATIVE DIAGNOSIS: Hemorrhoids. POSTOPERATIVE DIAGNOSIS: Hemorrhoids. SURGEON: Arnold Genao M.D. METER ENGINEER: Jared. SURGERY/PROCEDURE: Ablation. ANESTHESIA: General ESTIMATED BLOOD [...] was overall very minor. Arnold Genao M.D. BC:[id number] /[id number] Normal [facility] HISTORY PHYSICALon HISTORY PHYSICAL HNO ID: [id number] Author: Zahira Heath APRN.FIRE LOSS PREVENTION ENGINEER Service: ? Author Type: Nurse Practitioner Type: [...] fevers. Neuro: No history of TIA's, stroke, THIN FILM TECHNICIAN tumor, impaired sensorium, hemiplegia, paraplegia or quadraplegia. [...] skills. Pulse (more content not included)... Normal [facility] CNOVon 08-31-2021 CNOV Office Visit ([facility] ) RJ COLBERT ([id number]) 2000 T[address] [place]* Date Time Provider Department 08/31/21 [...] Anorectal: External exam reveals : see below Junior Accountant present: yes Assessment Assessment and Plan: Rj Colbert is a 21 year old male who is doing relatively well after his recent rubber band ligation. He still has some rectal bleeding and it is difficult to assess the exact amount. If the bleeding persists we will consider internal hemorrhoidectomy. Arnold Genao MD Colorectal Surgery Referring Provider: ELHAM VAN [[id number]] Allergies As of Date: 08/31/2021 (No Known [...] Status:Closed by ARNOLD GENAO on 09/02/21 Normal [facility] OPERATIVE NOon 07-17-2021 OPERATIVE NO HNO ID: [id number] Author: Arnold Genao MD Service: Colorectal Author Type: Physician Type: Operative Report Filed: 08/01/2021 1:12 PM Note Text: [facility] - Operative Report RJ COLBERT : 2000 AGE: 21. SEX: M PATIENT TYPE: A HOSP SVC: [facility] LOCATION: [facility] [place] ATTENDING PHYSICIAN: Arnold Genao M.D. CSN NUMBER: [id number] DATE OF SURGERY/PROCEDURE: 07/12/2021 INCISION/PROCEDURE START TIME: 10:55 AM INCISION CLOSE/PROCEDURE END TIME: 10:58 AM PREOPERATIVE DIAGNOSIS: Rectal bleeding. POSTOPERATIVE DIAGNOSIS: Rectal bleeding. SURGEON: Arnold Genao M.D. METER ENGINEER: None. SURGERY/PROCEDURE: Rubber-band ligation hemorrhoidectomy. ANESTHESIA: General [...] room in good condition. Arnold Genao M.D. BC:[id number] /[id number] [facility] 07-13-2021 [facility] Telephone ([facility]) RJ COLBERT ([id number]) 2000 Tima Joseph Date Time Provider Department 07/13/21 ARNOLD GENAO [facility] During your visit today, we recorded the following information about you: Essie Pickard [facility] 07/13/2021 3:27 PM Signed Patient's caregiver called with post operative hemorrhoidectomy questions and concerns of bands falling off return call to [phone] Sara Bri Milton ADM 07/16/2021 12:22 PM Signed Kasia, caregiver called. Patient banding undone. Called last Friday, waiting to talk to nurse about care. [phone] Nona Banks RN 07/16/2021 4:56 PM Signed [...] Encounter Status:Closed by NONA BANKS on 07/16/21 [facility] ANES POSTPROC EVALon 021 ANES POSTPROC EVAL HNO ID: [id number] Author: Jared Arriaga MD Service: Anesthesiology Author Type: Anesthesiologist Type: Anesthesia Postprocedure Evaluation Filed: 07/12/2021 12:05 PM Note Text: POST ANESTHESIA EVALUATION NOTE : 2000 Procedure Summary Date: 07/12/21 Room / Location: [address] Anesthesia Start: 1044 Anesthesia Stop: 1110 [...] July 12, 2021 TIME: 12:05 PM CSN: [id number] [facility] ANES PRE-OPon 07-12-2021 ANES PRE-OP HNO ID: [id number] Author: Jared Arriaga MD Service: Anesthesiology Author [...] July 12, 2021 TIME: 9:18 AM CSN: [id number] [facility] HISTORY PHYSICALon HISTORY PHYSICAL HNO ID: [id number] Author: Arnold Genao MD Service: Colorectal Author [...] DATE: July 12, 2021 TIME: 10:39 AM [facility] HISTORY PHYSICALon HISTORY PHYSICAL HNO ID: [id number] Author: Zahira Ivy PA-C Service: ? Author Type: Physician Manager Of Drilling Type: HANDP Filed: 07/10/2021 2:28 PM Note [...] fevers. Neuro: No history of TIA's, stroke, THIN FILM TECHNICIAN tumor, impaired sensorium, hemiplegia, paraplegia or quadraplegia. [...] found for: (more content not included)... Normal [facility] 07-05-2021 [facility] Telephone ([id number]) RJ COLBERT ([id number]) 2000 M Date Time Provider Department 07/05/21 ARNOLD GENAO [id number] During your visit today, we recorded the following information about you: Sara Rose ADM 07/05/2021 3:26 PM Signed Kasia Nurse Shield Cleaner at [facility] where patient resides called to discuss procedure information and date. Call to discuss [phone] Sara Delacruzihan [facility] 07/06/2021 11:12 AM Signed Kasia nurse aware of 07/12 procedure date. Would like the nurse to call to advise any prep instructions other than fasting after midnight. Call Nurse Kasia mgr [phone] Cristal Nava APRN.FIRE LOSS PREVENTION ENGINEER 07/06/2021 12:27 PM Signed Call returned. Reviewed NPO after midnight and scheduled PACCs appointment. Allergies As of Date: 07/05/2021 (No Known Allergies) Date Reviewed: 06/29/2021 Reviewed by: Arnold Genao MD - Fully Assessed Reason for Visit: procedure info [Other] Cmt: discuss plan Primary Visit Diagnosis:Hemorrhoids, internal, with bleeding [K64.8] Order(s):VIRTUAL CONSULT TO PACC [[id number]] Order #: [id number]: 1 FUTURE Prescriptions as of 07/06/2021 - [...] by CRISTAL NAVA on 07/06/21 [facility] CNOVon 06-29-2021 CNOV Office Visit (COFHAM ) RJ COLBERT ([id number]) 2000 M Date Time Provider Department 06/29/21 [...] (222 lb 4.8 oz) BMI 31.90 kg/m? Junior Accountant present: Yes Rj Colbert is a 21 year old male presents with complaint of rectal bleeding with prolapsing Grade 3 internal hemorrhoids on exam. Our plan is to perform an EUA and rubber band ligation of internal hemorrhoids at the [facility]. Medical Decision Making: Arnold Genao MD Colorectal Surgery Referring Provider: ELHAM VAN [[id number]] Allergies As of Date: 06/29/2021 (No Known [...] Encounter Status:Closed by ARNOLD GENAO on 06/29/21 [facility] RJ COLBERT ([id number]) 2000 M Date Time Provider Department 05/22/21 ARNOLD GENAO [facility] During your visit today, we recorded the following information about you: Tamiko Sweeney 05/22/2021 3:28 PM Signed Ph. [phone] Santi, who works for [employer], was transferred to Dr. Van's office from the appt line. Santi needs to schedule Ryheam for rectal prolapse. 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 CODING DATE: 018 FINAL [facility] STATUS: Home (Routine DC) PAYOR: Medicaid [...] PROC EAPG STAT DESCRIPTION DOCTOR NAME DATE 29482 0149 Colonoscopy, flexible; Colin Shirley MD 04/17/2018 with biopsy, single or multiple 74 Discontinued [facility]Patient [facility] Procedure After Administration of Anesthe 90122 Anesthesia for ne Colin Shirley MD 04/17/2018 intestinal endoscopic procedures, endoscope introduced distal to duodenum; not otherwise specified NOTE: The code number assigned matches the documented diagnosis and / or procedure in the patient's chart. However, the narrative phrase printed from the coding software may appear abbreviated, or result in slightly different terminology. Coded By: Sary Little Date Saved: 05/01/2018 08:02 am Normal [facility] Coding Summary. CODING DATE: 018 [facility] STATUS: Home (Routine DC) PAYOR: [...] PROC EAPG STAT DESCRIPTION DOCTOR NAME DATE 31631 0149 Colonoscopy, flexible; Colin Shirley MD 04/17/2018 with biopsy, single or multiple 74 Discontinued Out[facility]Patient [facility] ([facility]) Procedure After Administration of Anesthe 05849 Anesthesia for ne Colin Shirley MD 04/17/2018 intestinal endoscopic procedures, endoscope introduced distal to duodenum; not otherwise specified NOTE: The code number assigned matches the documented diagnosis and / or procedure in the patient's chart. However, the narrative phrase printed from the coding software may appear abbreviated, or result in slightly different terminology. Coded By: Sary Little Date Saved: 04/23/2018 11:46 am Normal [facility] Progress Note-Physicianon Progress Note-Physician Patient: RJ [...] Cardiovascular: Regular rhythm. Neurologic: Alert, Oriented. Plan [place] Society of Anesthesiologists (ASA) physical status classification: Class II. Anesthetic Preoperative Plan Anesthesia: General. . Anesthetic plan, risks, benefits, and alternatives discussed with the patient and/or family. Communication: face to face with (patient 5 minutes, Patient educated on smoking cesstation). Normal [facility] Comment on above: Result Comment: Elec tronically Signed By: Quincy Ojeda Jr, DO\.karen\Date and Time Signed: 04/28/18 08:15 EDT Main OR Intraoperative Recor don 04-20-2018 Main OR Intraoperative Record IntraOp Document Type FT Summary Primary Physician: Colin Shirley MD Finalized Date/Time: 04/20/18 09:38:35 Pt. Name: RJ COLBERT /Sex: 2000 Male Med Rec #: [id number] Physician: Colin Shirley MD Financial #: [id number] Pt. Type: O Room/Bed: / Admit/Disch: 04/17/18 [...] Felix CST Role Performed Surgeon - Primary Production Crew Supervisor - Primary Scrub - Primary Time In 04/17/18 13:14:00 04/17/18 13:14:00 04/17/18 13:14:00 Time Out 04/17/18 13:32:00 04/17/18 13:32:00 04/17/18 13:32:00 Procedure COLONOSCOPY(.) COLONOSCOPY(.) COLONOSCOPY(.) Comments Last Modified By: Anju RN, Ashlee Rene RN, Ashlee Jeffers RN 04/17/18 13:32:29 04/17/18 13:32:29 04/17/18 13:32:29 Entry 4 Entry 5 Entry 6 Case Attendee Stas [place], Zenaida Mortensen CAA, Magi Garrett Role Performed Scrub - Other Scrub - Other Anesthesiologist Manager Of Drilling Time In 04/17/18 13:14:00 04/17/18 13:14:00 04/17/18 [...] Given Participants Anju TREVINO, Ashlee, Festus DEVLIN, Yvonne Briggs, Oliver ZARATE, Tori [facility] Controlled [employer], Jelani Bess Kirstyn K Time Out Complete [...] right side of colon. Last Modified By: Denilson ZARATE Addie 04/20/18 09:38:33 Post-Care Text: The patient is free from signs and symptoms of infection Skin Assessment (Pre Procedure) FT Pre-Care Text: Implements protective measures to prevent skin/ tissue injury due to thermal or mechanical sources Evaluates for signs and symptoms of physical injury to skin and tissue Entry 1 Skin Integrity Intact, [place], Warm, and Skin Abnormality No Dry Outcomes [...] Rails Up PostOp Destination PACU Transported By sAhlee Rene RN Patient Status Stable Skin. Condition Intact, [place], Warm, and Dry Airway Maintenance Oxygen in Use? No Airway Device N/A Outcomes Met? Yes Last Modified By: Ashlee Rene RN 04/17/18 07:23:58 Post-Care Text: The patient is free from signs and symptoms of injury related to transfer/transport General Comments: REPORT GIVEN TO CITY MAGISTRATE/ AW customs and border protection inspector Administration FT Pre-Care Text: Verifies allergies, administers prescribed medications and solutions, administers prescribed antibiotic therapy and immunizing agents as ordered, evaluates response to medications Administers prescribed medications and solutions Entry 1 Expiration Date Yes Outcomes Met? Yes Verified Last Modified By: Ashlee Rene RN 04/17/18 07:24:05 Post-Care Text: The patient received appropriate medication(s) safely administered during the perioperative period For [facility] please see scanned medication reconcilliation form [...] 13:32 Addie Oreilly CST 04/20/18 09:38 Normal [facility] History and Physicalon 04-17 History and Physical Date: 03/10/2018 2:15 PMPatient Name: Rj ColbertAccount #: [id number]: MaleDOB (age): 2000 (17)Provider: Annie Benton Complaint: Change in Bowel habits Blood in StoolHistory of Present Illness:17 years old -Niue[place] male with multiple psychiatric problems, lives in [...] stool incontinence, stomachPrinted on 04/10/2018 Rj Colbert, 03581, 2000 Page 1 of 4Printed on 04/10/2018 Rj Colbert, 84836, 1998cramps, straining. Denies abdominal pain, abdominal swelling, [...] up blood.Vital Signs:BP(mmHg)Pulse(ppm )Rhythm Weight (lbs/oz) Resp/min Rgtw120/68 82 Regular 191 / 12 98.3 (F)Physical [...] hemorrhageConstipationP brian: Colonoscopy will be performed at [facility] .Printed on 04/10/2018 Jamieanjalitima HeWarne, 76779, 2000 Page 2 of 4Printed on 04/10/2018 Rj Colbert, 88226, 2000Risk & Medical Necessity: Diagnosis and management options are Extensive. The amount of data reviewedand/or ordered is Moderate. The level of risk is Moderate.Colin Shirley MD Rj Colbert, 42737, 2000 Page 3 of 4Printed on 04/10/2018 Rj Colbert, 38385, 2000Printed on 04/10/2018 Rj Colbert, 42411, 2000 Page 4 of 4Printed on 04/10/2018 Rj Colbert, 94559, 2000no change Normal [facility] Comment on above: Result Comment: Elec tronically Signed By: Colin Shirley MD\.br\Date and Time Signed: 04/17/18 13:15 EDT Inpatient Patient Summaryon 04-17-2018 [facility] Instructions[facility] INFORMATION Name: RJ COLBERT PHYSICIANS Admitting Physician: Ronnell Shirley MDttending Physician: Colin Shirley MD PCP: Murphy WEISS MD Diagnosis: Rectal prolapse Comment: PATIENT EDUCATION INFORMATIONInstructions :Medication Leaflets:Follow up:With: Address: When: Colin Shirley [facility], [address], [place] [id number] Business (1) Within 1 to 2 weeks MEDICATION LISTComment: Normal [facility] Main OR PACU I Recordon 03-28 Main OR PACU I Record PACU Phase I Document Type FT Summary Primary Physician: Colin Shirley MD Finalized Date/Time: 04/17/18 14:14:33 Pt. Name: RJ COLBERT /Sex: 2000 Male Med Rec #: [id number] Physician: Colin Shirley MD Financial #: [id number] Pt. Type: O Room/Bed: / Admit/Disch: 04/17/18 [...] By: Essie Guzman RN 04/17/18 14:14 Normal [facility] Main OR Preoperative Recordo n 04-17-2018 Main OR Preoperative Record Holding Area Document Type FT Summary Primary Physician: Colin Shirley MD Finalized Date/Time: 04/17/18 09:56:12 Pt. Name: JR COLBERT/Sex: 2000 Male Med Rec #: [id number] Physician: Colin Shirley MD Financial #: [id number] Pt. Type: O Room/Bed: / Admit/Disch: 04/17/18 [...] By: Viki James RN 04/17/18 09:56 Normal [facility] Patient Education - Texton 0 04-17-2018 Patient Education - Text [facility] Coding Summary.on 04-02-2018 Coding Summary. CODING DATE: 018 [facility] STATUS: Home (Routine DC) PAYOR: [...] PROC EAPG STAT DESCRIPTION DOCTOR NAME DATE 27556 0133 Sigmoidoscopy, flexible; Colin Shirley MD 03/30/2018 with biopsy, single or multiple 74 Discontinued Out[facility]Patient [facility] ([facility]) Procedure After Administration of Anesthe 10271 Anesthesia for lower Colin Shirley MD 03/30/2018 intestinal endoscopic procedures, endoscope introduced distal to duodenum; not otherwise specified NOTE: The code number assigned matches the documented diagnosis and / or procedure in the patient's chart. However, the narrative phrase printed from the coding software may appear abbreviated, or result in slightly different terminology. Coded By: Sary Little Date Saved: 04/02/2018 04:16 pm [facility] Progress Note-Physicianon Progress Note-Physician Patient: RJ COLBERT [...] Cardiovascular: Regular rhythm. Neurologic: Alert, Oriented. Plan [place] Society of Anesthesiologists (ASA) physical status classification: Class II. Anesthetic Preoperative Plan Anesthesia: General. . Anesthetic plan, risks, benefits, and alternatives discussed with the patient and/or family. Communication: face to face with (patient 5 minutes, Patient educated on smoking cesstation). Normal [facility] Comment on above: Result Comment: Elec tronically Signed By: Quincy Ojeda Jr, DO\.karen\Date and Time Signed: 04/01/18 07:53 EDT History and Physicalon 03-30 History and Physical Date: 03/10/2018 2:15 PMPatient Name: Rj ColbertAccount #: [id number]: MaleDOB (age): 2000 (17)Provider: Annie Benton Complaint: Change in Bowel habits Blood in StoolHistory of Present Illness:17 years old -Niuean male with multiple psychiatric problems, lives in [...] stool incontinence, stomachPrinted on 03/26/2018 Rj Colbert, 04273, 2000 Page 1 of 4Printed on 03/26/2018 Rj Colbert, 39476, 1998cramps, straining. Denies abdominal pain, abdominal swelling, [...] up blood.Vital Signs:BP(mmHg)Pulse(ppm )Rhythm Weight (lbs/oz) Resp/min Reet345/68 82 Regular 191 / 12 98.3 (F)Physical [...] hemorrhageConstipationP brian: Colonoscopy will be performed at [facility] .Printed on 03/26/2018 Brittaney Coto03, 2000 Page 2 of 4Printed on 03/26/2018 Brittaney Coto03, 2000Risk & Medical Necessity: Diagnosis and management options are Extensive. The amount of data reviewedand/or ordered is Moderate. The level of risk is Moderate.Colin Shirley MD Rj Colbert, 39325, 2000 Page 3 of 4Printed on 03/26/2018 Rj Colbert, 95335, 1998Printed on 03/26/2018 Rj Colbert, 90290, 2000 Page 4 of 4Printed on 03/26/2018 Rj Colbert, 25433, 2000No change Normal [facility] Comment on above: Result Comment: Elec tronically Signed By: Colin Shirley MD\.br\Date and Time Signed: 03/30/18 10:52 EDT Inpatient Patient Summaryon 03-30-2018 Inpatient Patient Summary [facility] InstructionsPERSON INFORMATION Name: RJ COLBERT PHYSICIANS Admitting Physician: Debbi Shirley MDending Physician: Colin Shirley MD PCP: Murphy WEISS MD Diagnosis: Internal hemorrhoids Comment: PATIENT EDUCATION INFORMATIONInstructions :Medication Leaflets:Follow up:With: Address: When: [facility], [address] [place], [place] [id number] [facility] (1) Within 1 to 2 weeks MEDICATION LISTComment: Normal [facility] Main OR Intraoperative Recor don 03-30-2018 Main OR Intraoperative Record IntraOp Document Type FT Summary Primary Physician: Colin Shirley MD Finalized Date/Time: 03/30/18 11:37:17 Pt. Name: RJ COLBERT /Sex: 2000 Male Med Rec #: [id number] Physician: Colin Shirley MD Financial #: [id number] Pt. Type: O Room/Bed: / Admit/Disch: 03/30/18 09:32:43 - Institution: Case Times FT Entry 1 Patient Times In Room 03/30/18 10:56:00 Out Room 03/30/18 11:13:00 Procedure Times Start 03/30/18 10:59:00 Stop 03/30/18 11:09:00 Anesthesia Times Start 03/30/18 10:56:00 Stop 03/30/18 11:13:00 Last Modified By: Addie Oreilly CST 03/30/18 11:14:43 General Comments: 03/30/2018 Chart opened to review and send charges Marika Pineda BUILDINGS AND GROUNDS SUPERVISOR Case Attendance FT Entry 1 Entry 2 Entry 3 Case Attendee Rusty Fagan DO, Quincy Miller RN, Francy Boyd CST, Tori Role Performed Anesthesiologist of Production Crew Supervisor - Primary Scrub - Primary Record Time In 03/30/18 10:56:00 03/30/18 10:56:00 03/30/18 10:56:00 Time Out 03/30/18 11:13:00 03/30/18 11:13:00 03/30/18 11:13:00 Procedure COLONOSCOPY(.) COLONOSCOPY(.) COLONOSCOPY(.) Comments Last Modified By: Paul RN, Francy Miller RN, Francy Miller RN, Francy Gregory 03/30/18 11:14:48 03/30/18 11:14:48 03/30/18 11:14:48 Entry 4 Entry 5 Case Attendee Casper GAUTAM, [facility] Role Performed Surgeon - Primary Scrub [...] Quincy Gregory, Given Participants Francy Miller RN, Casper GAUTAM, Colin, [facility], Oliver Bess CST, Tori Time Out [...] and tissue Entry 1 Skin Integrity Intact, [place], Warm, and Skin Abnormality No Dry Outcomes [...] RN Patient Status Stable Skin. Condition Intact, [place], Warm, and Dry Airway Maintenance Oxygen in Use? No Airway Device N/A Outcomes Met? Yes Last Modified By: Francy Miller RN 03/30/18 07:37:17 Post-Care Text: The patient is free from signs and symptoms of injury related to transfer/transport General Comments: Report given to PACU,RN./RICHARD,customs and border protection inspector Administration FT Pre-Care Text: Verifies allergies, administers prescribed medications and solutions, administers prescribed antibiotic therapy and immunizing agents as ordered, evaluates response to medications Administers prescribed medications and solutions Entry 1 Expiration Date Yes Outcomes Met? Yes Verified Last Modified By: Francy Miller RN 03/30/18 07:37:26 Post-Care Text: The patient received appropriate medication(s) safely administered during the perioperative period For [facility] please see scanned medication reconcilliation form [...] 11:14 Addie Oreilly CST 03/30/18 11:37 Normal [facility] Main OR PACU I Recordon Main OR PACU I Record PACU Phase I Document Type FT Summary Primary Physician: Colin Shirley MD Finalized Date/Time: 03/30/18 11:29:28 Pt. Name: RJ COLBERT/Sex: 2000 Male Med Rec #: [id number] Physician: Colin Shirley MD Financial #: [id number] Pt. Type: O Room/Bed: / Admit/Disch: 03/30/18 [...] By: Essie Guzman RN 03/30/18 11:29 Normal [facility] Main OR Preoperative Recordo n 03-30-2018 Main OR Preoperative Record Holding Area Document Type FT Summary Primary Physician: Colin Shirley MD Finalized Date/Time: 03/30/18 10:16:59 Pt. Name: RJ COLBERT D.O.B./Sex: 2000 Male Med Rec #: [id number] Physician: Colin Shirley MD Financial #: [id number] Pt. Type: O Room/Bed: / Admit/Disch: 03/30/18 [...] No Patient states Yes Comment - Adult [facility]- care provider postop adult Supervision supervision available Case Cancelled in No Holding Area see comments below for reason Last Modified By: Kathleen Gómez RN 03/30/18 09:54:58 General Comments: Pt completed prep at 0540 and remained NPO/KS,RN Finalized By: Kathleen Gómez RN Document Signatures Signed By: Kathleen Gómez RN 03/30/18 10:16 Normal [facility] Patient Education - Texton 0 03-30-2018 Patient Education - Text [facility] Progress Note-Physicianon Progress Note-Physician Patient: RJ COLBERT [...] 36.5 (MAR 30 11:15)Heart Rate 72 (MAR 04 11:30) 67 (MAR 04 11:15) 76 (MAR 04 10:05)Resp Rate 16 (MAR 30 11:30) 9 (MAR 30 11:20) 20 (MAR 04 10:05)SBP 122 (MAR 04 11:25) 109 (MAR 04 11:00) 127 (MAR 04 10:05)DBP 83 (MAR 30 11:25) 71 (MAR 04 11:00) 83 (MAR 04 10:05)SpO2 99 (MAR 30 11:30) 97 (MAR [...] vomiting. Plan Transfer/ Discharge: Condition stable. Normal [facility] Comment on above: Result Comment: Elec tronically Signed By: Rusty Fagan DO, Quincy Davis.karen\Date and Time Signed: 03/30/18 11:55 EDT Vital Signs Date Time Vital Sign Value Performing Clinician Facility 04-26-2025 11:31-0400 Body height 177.8 cm Laila Gonzalez TAILINGS MAN-FIRE LOSS PREVENTION ENGINEER Work Phone: [facility] 04-26-2025 11:31-0400 Body mass index (BMI) [Ratio] 29.84 kg/m2 Laila Gonzalez TAILINGS MAN-FIRE LOSS PREVENTION ENGINEER Work Phone: [facility] 04-26-2025 11:31-0400 Body weight 94.35 kg Laila Gonzalez TAILINGS MAN-FIRE LOSS PREVENTION ENGINEER Work Phone: [facility] 03-14-2025 11:14-0400 Body height 177.8 cm Laila Gonzalez TAILINGS MAN-FIRE LOSS PREVENTION ENGINEER Work Phone: [facility] 03-14-2025 11:14-0400 Body mass index (BMI) [Ratio] 30.42 kg/m2 Laila Gonzalez TAILINGS MAN-FIRE LOSS PREVENTION ENGINEER Work Phone: [facility] 03-14-2025 11:14-0400 Body weight 96.16 kg Laila Gonzalez TAILINGS MAN-FIRE LOSS PREVENTION ENGINEER Work Phone: [facility] 01-07-2025 10:22-0400 Body height 177.8 cm Laila Gonzalez TAILINGS MAN-FIRE LOSS PREVENTION ENGINEER Work Phone: [facility] 01-07-2025 10:22-0400 Body mass index (BMI) [Ratio] 30.13 kg/m2 Laila Gonzalez TAILINGS MAN-FIRE LOSS PREVENTION ENGINEER Work Phone: [facility] 01-07-2025 10:22-0400 Body weight 95.25 kg Laila Gonzalez YAN Work Phone: [facility] 07-14-2024 09:26-0400 Body height 177.8 cm Benson Weiss MD Work Phone: [facility] 07-14-2024 09:26-0400 Body mass index (BMI) [Ratio] 28.84 kg/m2 Benson Weiss MD Work Phone: [facility] 07-14-2024 09:26-0400 Body temperature 97.5 [degF] Benson Weiss MD Work Phone: [facility] 07-14-2024 09:26-0400 Body weight 91.17 kg Benson Weiss MD Work Phone: [facility] 07-14-2024 09:26-0400 Diastolic blood pressure 70 mm[Hg] Benson Weiss MD Work Phone: [facility] 07-14-2024 09:26-0400 Heart rate 88 /min Benson Weiss MD Work Phone: [facility] 07-14-2024 09:26-0400 Respiratory rate 20 /min Benson Weiss MD Work Phone: [facility] 07-14-2024 09:26-0400 SaO2% (BldA) [Mass fraction] 99 % Benson Weiss MD Work Phone: [facility] 07-14-2024 09:26-0400 Systolic blood pressure 118 mm[Hg] Benson Weiss MD Work Phone: [facility] 01-26-2024 14:24-0400 Body height 177.8 cm Reynold Kuo MD Work Phone: [facility] 01-26-2024 14:24-0400 Body mass index (BMI) [Ratio] 25.75 kg/m2 Reynold Kuo MD Work Phone: [facility] 01-26-2024 14:24-0400 Body weight 81.4 kg Reynold Kuo MD Work Phone: [facility] 03-28-2022 11:11-0400 Body height 180.3 cm Arnold Genao MD Work Phone: [facility] 03-28-2022 11:11-0400 Body weight 90.27 kg Arnold Genao MD Work Phone: [facility] 03-28-2022 11:11-0400 Diastolic blood pressure 65 mm[Hg] Arnold Genao MD Work Phone: [facility] 03-28-2022 11:11-0400 Heart rate 80 /min Arnold Genao MD Work Phone: [facility] 03-28-2022 11:11-0400 SaO2% (BldA) [Mass fraction] 100 % Arnold Genao MD Work Phone: [facility] 03-28-2022 11:11-0400 Systolic blood pressure 108 mm[Hg] Arnold Genao MD Work Phone: [facility] Encounters Encounter Date Encounter Type Care Provider Facility Start: 05-19-2025 End: 05-19-2025 Telephone encounter Benson Weiss MD Work Phone: [facility] Comment on above: Med Refill Start: 05-11-2025 End: 05-11-2025 Clinisync Result Encounter Generic External Data Provider [facility] External Department Unsolicited Start: 05-11-2025 End: 05-11-2025 Clinisync Result Encounter Generic External Data Provider [facility] External Department Unsolicited Start: 05-11-2025 End: 05-11-2025 Follow-up encounter Veronica Galo DO Work Phone: [facility] Comment on above: Surgical Pathology Proctitis Start: 05-02-2025 End: 05-02-2025 Evaluation and management of inpatient VERONICA GALO [facility] Start: 04-26-2025 End: 04-26-2025 ambulatory [facility] Phone Call Provider 1 [facility] - Pre Admit Start: 04-26-2025 End: 04-26-2025 Office outpatient visit 15 minutes Laila Gonzalez TAILINGS MAN-FIRE LOSS PREVENTION ENGINEER Work Phone: [facility] Comment on above: Rectal bleeding (Charlee hortensia Dx); Chronic constipation; Straining during bowel movements Start: 04-26-2025 End: 04-26-2025 ambulatory [facility] Start: 04-04-2025 End: 04-04-2025 Telephone encounter Audrey Maldonado [facility] General Surgery Start: 03-30-2025 End: 03-31-2025 Clinisync Result Encounter Generic External Data Provider [facility] External Department Unsolicited Start: 03-30-2025 End: 03-31-2025 [facility] Result Encounter Generic External Data Provider [facility] External Department Unsolicited Start: 03-24-2025 End: 03-24-2025 Evaluation and management of inpatient VERONICA GALO [facility] Start: 03-17-2025 End: 03-17-2025 [facility] Start: 03-14-2025 End: 03-14-2025 Office outpatient visit 15 minutes Laila Gonzalez APRN-FIRE LOSS PREVENTION ENGINEER Work Phone: [facility] Comment on above: Rectal bleeding (Charlee hortensia Dx); Chronic constipation; Straining during bowel movements Start: 03-14-2025 End: 03-14-2025 ambulatory [facility] Start: 03-01-2025 End: 03-02-2025 Clinisync Result Encounter Generic External Data Provider [facility] External Department Unsolicited Start: 03-01-2025 End: 03-02-2025 Clinisync Result Encounter Generic External Data Provider [facility]S External Department Unsolicited Start: 02-02-2025 End: 02-03-2025 Clinisync Result Encounter Generic External Data Provider [facility] External Department Unsolicited Start: 02-02-2025 End: 02-03-2025 Clinisync Result Encounter Generic External Data Provider [facility]S External Department Unsolicited Start: 01-13-2025 ambulatory Jean Carlos Boudreaux acility:[facility] Start: 01-12-2025 End: 01-12-2025 ambulatory BENSON WEISS Not Available Start: 01-07-2025 End: 01-07-2025 Office outpatient new 30 minutes Laila Gonzalez TAILINGS MAN-FIRE LOSS PREVENTION ENGINEER Work Phone: [facility] Comment on above: Rectal bleeding (Charlee hortensia Dx); Chronic constipation; Straining during bowel movements Start: 01-07-2025 End: 01-07-2025 ambulatory LAILA A KRISTINE [facility] Start: 12-08-2024 End: 12-08-2024 Clinisync Result Encounter [...] Start: 01-26-2024 End: 01-26-2024 ambulatory REYNOLD KUO [facility] Start: 01-26-2024 End: 01-26-2024 Postop follow up visit related to original px Reynold Kuo MD Work Phone: [facility] Comment on above: Rectal prolapse (Charlee hortensia Dx) Start: 01-10-2024 End: 01-10-2024 Evaluation and management of inpatient JOHN MIGUEL ÁNGEL [facility] Start: 01-09-2024 End: 01-10-2024 Evaluation and management of inpatient BENSON WEISS [facility] Start: 03-26-[address] DOCTOR NEGRON Facility :[facility]1 Start: 02-19-2023 End: 02-20-[address] DOCTOR NEGRON Facility:[facility] Start: 01-15-2023 End: 01-16-[address] DOCTOR NEGRON Facility:[facility]1 Start: 12-20-2022 End: 12-21-[address] DOCTOR NEGRON Facility:[facility] Start: 11-20-2022 End: 11-21-[address] DOCTOR NEGRON Facility:[facility] Start: 10-11-2022 End: 10-12-[address] DOCTOR NEGRON Facility:[facility] Start: 09-18-2022 End: 09-19-[address] [...] (Primar y Dx) Start: 04-17-2018 End: 04-18-2018 [facility] Start: 03-30-2018 End: 03-31-2018 [facility] Procedures Date Procedure Procedure Detail Performing Clinician Start: 05-11-2025 ALL CBC WITH AUTO DIFF Generic External Data Provider Start: 03-30-2025 ALL CBC WITH AUTO DIFF Generic External Data Provider Start: 03-14-2025 Follow-up visit Follow-up LAILA GONZALEZ Start: 03-01-2025 ALL CBC WITH AUTO DIFF Generic External Data Provider Start: 02-02-2025 ALL CBC WITH AUTO DIFF Generic External Data Provider Start: 12-08-2024 ALL CBC WITH AUTO DIFF [...] Td Vaccines (8 - Td or Tdap) [facility] Start: 05-02-2026 Adult BMI Screening Adult BMI Screen ing [facility] Start: 05-02-2026 Tobacco Screening Tobacco Screening [facility] Start: 04-26-2026 Adult BMI Screening Adult BMI Screen ing [facility] Start: 04-26-2026 Tobacco Screening Tobacco Screening [facility] Start: 03-24-2026 Adult BMI Screening Adult BMI Screen ing [facility] Start: 03-24-2026 Tobacco Screening Tobacco Screening [facility] Start: 03-14-2026 Adult BMI Screening Adult BMI Screen ing [facility] Start: 03-14-2026 Tobacco Screening Tobacco Screening [facility] Start: 01-12-2026 Medicare Annual Well ness (AWV) Medicare Annual Wellness (AWV) [facility] Start: 01-07-2026 Adult BMI Screening Adult BMI Screen ing [facility] Start: 01-07-2026 Tobacco Screening Tobacco Screening [facility] Start: 07-15-2025 End: 07-15-2025 Patient encounter procedure 07/15/2025 10:00 AM EDT Office Visit [facility] [address] [place] [address] Benson Weiss MD [address] [place] [address] [facility] Start: 06-27-2025 Influenza vaccination N [facility] Start: 05-02-2025 End: 05-02-2025 Admission to same day surgery center 05/02/2025 7:30 AM EDT - 05/02/2025 8:00 AM EDT Surgery [facility] - Surgery [address] [place] [phone] Veronica Galo, [address] [place] [address] COLONOSCOPY DIAGNOSTIC / SCREENING [61822 (CPT )] [facility] Comment on above: COLONOSCOPY DIAGNOST IC / SCREENING [68132 (CPT )] Start: 05-02-2025 End: 05-02-2025 Anesthesia consultation 05/02/2025 7:30 AM EDT Anesthesia Event [facility] [address] [place] [phone] Timbo Ceballos, DO [address] [facility], [place] [id number] [facility] Start: 05-02-2025 End: 05-02-2025 Colonoscopy flx dx w/collj spec when pfrmd COLONOSCOPY DIAGNOSTIC / SCREENING rectal bleeding-poor prep with first attempt 05/02/2025 7:30 AM EDT [facility] Start: 05-02-2025 Subsequent hospital visit by physician 05/02/2025 7:30 AM EDT Hospital Encounter [facility] [address] [place] [phone] Veronica Galo DO [address] [place], [place] [phone] [facility] Start: 04-26-2025 End: 04-26-2025 ambulatory 04/26/2025 4:20 PM EDT Support Visit [facility] Admit [address] [place] [address] [facility] Pre Admit Start: 04-26-2025 End: 04-26-2025 Patient encounter procedure 04/26/2025 11:30 AM EDT Office Visit [facility] Surgery [address] [place] [phone] Laila Gonzalez, TAILINGS MAN-FIRE LOSS PREVENTION ENGINEER [address] [place], [place] [phone] [facility] Start: 03-24-2025 End: 03-24-2025 Admission to same day surgery center 03/24/2025 9:00 AM EDT - 03/24/2025 9:30 AM EDT Surgery [facility] [address] [facility] [place] [phone] Veronica Galo, DO [address] [place], [place] [phone] COLONOSCOPY DIAGNOSTIC / SCREENING [96824 (CPT )] [facility] Comment on above: COLONOSCOPY DIAGNOST IC / SCREENING [99268 (CPT )] Start: 03-24-2025 End: 03-24-2025 Colonoscopy flx dx w/collj spec when pfrmd COLONOSCOPY DIAGNOSTIC / SCREENING rectal bleeding 03/24/2025 9:00 AM EDT [facility] Start: 03-24-2025 Subsequent hospital visit by physician 03/24/2025 9:00 AM EDT Hospital Encounter [facility] [address] [place] [phone] Veronica Galo, DO [address], [place] [phone] [facility] Start: 03-17-2025 End: 03-17-2025 ambulatory 03/17/2025 2:10 PM EDT Support Visit [facility] - Pre Admit [address] [place] [phone] [facility] Pre Admit Start: 01-25-2025 Adult BMI Screening Adult BMI Screen ing [facility] Start: 01-25-2025 Tobacco Screening Tobacco Screening [facility] Start: 01-12-2025 End: 01-12-2025 Patient encounter procedure 01/12/2025 9:30 AM EDT Office Visit [facility] [address] [place] [address] Benson Weiss MD [address] [place] [phone] [facility] Start: 07-14-2024 End: 07-14-2024 Patient encounter procedure 07/14/2024 9:30 AM EDT Office Visit [facility] [address] [place] [address] Benson Weiss MD [address] [place] [phone] Arrived [facility] Comment on above: Arrived Start: 06-27-2024 COVID-19 Vaccine ( season) COVID-19 Vaccine ( season) [facility] Start: 06-27-[address] [facility] Start: 06-27-2023 COVID-19 Vaccine ( season) COVID-19 Vaccine ( season) [facility] Start: 2017 Urine microalbumin profile DTAP,TDAP,TD (1 - Tdap) [facility] Start: 2016 Adult BMI Follow Up Plan Adult BMI Follow Up Plan [facility] Start: 2016 HEPATITIS C SCREENING HEPATITIS C SC REENING [facility] Start: 2016 HIV SCREENING HIV SCREENING [facility] Start: 2012 PEDS TO ADULT TRANSI TION ANNUAL ASSESSMENT PEDS TO ADULT TRANSITION ANNUAL ASSESSMENT [facility] Start: 2010 Adult depression screening assessment DEPRESSION SCREENING [facility] Start: 2010 PEDS TO ADULT TRANSI TION INITIAL DISCUSSION PEDS TO ADULT TRANSITION INITIAL DISCUSSION [facility] Start: 2009 HPV VACCINE (1 - Mal e 2-dose series) HPV VACCINE (1 - Male 2-dose series) [facility] Start: 2008 MENINGOCOCCAL B: Consider based on risk (1 of 2 - Risk Bexsero 2-dose series) MENINGOCOCCAL B: Consider based on risk (1 of 2 - Risk Bexsero 2-dose series) [facility] Start: 1998 Medicare Annual Well ness (AWV) Medicare Annual Wellness (AWV) [facility] End: 03-14-2026 Colonoscopy Colonoscopy GI Routine Rectal bleeding 1 Occurrences starting 03/14/2025 until 03/14/2026 [facility] Work Phone: Comment on above: 1 Occurrences starti ng 03/14/2025 until 03/14/2026 Immunizations Immunization Date Immunization Notes Care Provider Fa cili 12-08-2020 COVID-19, mRNA, LNP- S, PF, 30mcg/0.3mL Dose Reynold Kuo MD Work Phone: [facility] 11-17-2020 COVID-19, mRNA, LNP- S, PF, 30mcg/0.3mL Dose Reynold Kuo MD Work Phone: [facility] 08-31-2020 influenza, injectabl e, quadrivalent, preservative free Reynold Kuo MD Work Phone: [facility] 08-31-2020 influenza virus vacc ine, unspecified formulation Reynold Kuo MD Work Phone: [facility] 08-18-2019 influenza, injectabl e, quadrivalent, preservative free Reynold Kuo MD Work Phone: [facility] 08-05-2019 tetanus toxoid, redu diamond diphtheria toxoid, and acellular pertussis vaccine, adsorbed Reynold Kuo MD Work Phone: [facility] 12-02-2017 tetanus toxoid, redu diamond diphtheria toxoid, and acellular pertussis vaccine, adsorbed Reynold Kuo MD Work Phone: [facility] 08-21-2017 influenza, injectabl e, quadrivalent, preservative free Reynold Kuo MD Work Phone: [facility] 08-28-2016 influenza, injectable,quadrivalent, preservative free, pediatric Reynold Kuo MD Work Phone: [facility] 08-28-2016 meningococcal polysaccharide (groups A, C, Y and W-135) diphtheria toxoid conjugate vaccine (MCV4P) Reynold Kuo MD Work Phone: [facility] 08-16-2015 influenza, seasonal, injectable Reynold Kuo MD Work Phone: [facility] 08-07-2011 tetanus toxoid, redu diamond diphtheria toxoid, and acellular pertussis vaccine, adsorbed Reynold Kuo MD Work Phone: [facility] 08-17-2008 hepatitis A vaccine, pediatric/adolescent dosage, 2 dose schedule Reynold Kuo MD Work Phone: [facility] 02-02-2008 hepatitis A vaccine, pediatric/adolescent dosage, 2 dose schedule Reynold Kuo MD Work Phone: [facility] 02-02-2008 varicella virus vaccine Edwin Kuo MD Work Phone: [facility] 01-18-2005 diphtheria, tetanus toxoids and acellular pertussis vaccine Reynold Kuo MD Work Phone: [facility] 07-18-2004 DTaP-hepatitis B and poliovirus vaccine Reynold Kuo MD Work Phone: [facility] 07-17-2004 measles, mumps and rubella virus vaccine Reynold Kuo MD Work Phone: [facility] 02-08-2003 diphtheria, tetanus toxoids and acellular pertussis vaccine, unspecified formulation Reynold Kuo MD Work Phone: [facility] 02-08-2003 haemophilus influenz ae type b vaccine, conjugate unspecified formulation Reynold Kuo MD Work Phone: [facility] 02-08-2003 hepatitis B vaccine, pediatric or pediatric/adolescent dosage Reynold Kuo MD Work Phone: [facility] 02-08-2003 measles, mumps and rubella virus vaccine Reynold Kuo MD Work Phone: [facility] 02-08-2003 poliovirus vaccine, unspecified formulation Reynold Kuo MD Work Phone: [facility] 02-08-2003 varicella virus vaccine Edwin Kuo MD Work Phone: [facility] 1998 diphtheria, tetanus toxoids and acellular pertussis vaccine, unspecified formulation Reynold Kuo MD Work Phone: [facility] 1998 haemophilus influenz ae type b vaccine, conjugate unspecified formulation Reynold Kuo MD Work Phone: [facility] 1998 poliovirus vaccine, unspecified formulation Reynold Kuo MD Work Phone: [facility] 1998 hepatitis B vaccine, pediatric or pediatric/adolescent dosage Reynold Kuo MD Work Phone: [facility] 1998 hepatitis B vaccine, pediatric or pediatric/adolescent dosage Reynold Kuo MD Work Phone: [facility] Payers Date Payer Category Payer Self-pay 2021 Medicaid MEDICAID [facility] MEDICAID [id number] 2021-Present [phone] [address] [place] [address] Medicaid [id number] 2018 Medicare MEDICARE MEDICAR E A AND B [id number] 2018-Present [phone] [address] [address] [place] [address] Medicare [id number] 2018 Medicare [id number] [id number] 2018 Medicaid [id number] [id number] [id number] 1998 Unknown [id number] 2.16.840.1.392604.3.579.2.593 1998 Unknown [id number] 2.16.840.1.397025.3.579.2.593 1998 Unknown [id number] 2.16.840.1.608004.3.579.2.593 1998 Unknown [id number] 2.16.840.1.157284.3.579.2.593 1998 Unknown [id number] 2.16.840.1.811493.3.579.2.593 1998 Unknown [id number] 2.16.840.1.982863.3.579.2.593 1998 Unknown [id number] 2.16.840.1.148246.3.579.2.593 1998 Unknown [id number] 2.16.840.1.825479.3.579.2.593 1998 Unknown [id number] 2.16.840.1.364613.3.579.2.593 1998 Unknown [id number] 2.16840.1.763958.3.579.2.593 1998 Unknown [id number] 2.16.840.1.378791.3.579.2.593 1998 Unknown [id number] 2.16.840.1.883269.3.579.2.593 1998 Unknown [id number] 2.16.840.1.404962.3.579.2.1286 1998 Unknown [id number] 2.16.840.1.472316.3.579.2.1286 1998 Unknown [id number] 2.16.840.1.371143.3.579.2.1286 1998 Unknown [id number] 2.16.840.1.049489.3.579.2.1286 1998 Unknown [id number] 2.16.840.1.740132.3.579.2.1259 1998 Unknown [id number] 2.16.840.1.851018.3.579.2.1259 1998 Unknown [id number] 2.16.840.1.056660.3.579.2.1286 1998 Unknown [id number] 2.16.840.1.699182.3.579.2.1286 1998 Unknown [id number] 2.16.840.1.332052.3.579.2.1286 1998 Unknown [id number] 2.16.840.1.423166.3.579.2.1286 1998 Unknown [id number] 2.16.840.1.251161.3.579.2.1286 1998 Unknown [id number] 2.16.840.1.925205.3.579.2.1286 1998 Unknown [id number] 2.16.840.1.791029.3.579.2.1286 1959 Medicaid [id number] 1961 Medicare [id number] Social History Date Type Detail Facility Start: 03-01-2015 End: 05-12-2023 Tobacco smoking status NHIS Never smoked tobacco [facility] Start: 03-01-2015 End: 01-26-2024 Tobacco use and exposure Smokeless tobacco non-user [facility] Start: 03-28-2022 Alcohol intake 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 non-dr 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 commander of alcohol (finding) [facility] Start: 1998 Sex Assigned At Not on file [facility] Start: 03-18-2022 End: 03-28-2022 Exposure to SARS-CoV-2 (event) Not sure [facility] Start: 01-07-2024 End: 07-14-2024 Alcoholic beverage intake Ex-drinker (finding) [facility] Start: 11-20-2020 End: 07-14-2024 History of Social function [facility] Start: 11-20-2020 End: 07-14-2024 Tobacco use panel [facility] Start: 01-26-2024 End: 05-04-2025 Alcohol intake Lifetime non-drinker (finding) [facility] Has the Remotium, PrizeBox™, or water Xtal[employer] threatened to shut off services in your home in past 12Mo No [facility] How often to you hav e a drink containing alcohol? Never [facility] How many standard drinks containing alcohol do you have on a typical day? Patient does not drink [facility] Start: 06-01-2015 Sex Male (finding) [facility] Goals Date Patient Goal Desired Activity /State Personal health goal Comment on above: Formatting of this n ote might be different from the original. Evaluation of progress towards goal: Guardian, Soren, states back to retirement. Personal health goal Personal health goal Clinical Notes 06-29-2021 to 05-19-2025 Telephone Encounter - Benson Weiss MD - 05/19/2025 6:16 PM EDTTelephone Encounter - Benson Weiss MD - 05/19/2025 6:16 PM EDTTelephone Encounter - TARIK DICKERSON - 05/19/2025 3:53 PM EDT Note Date & Type Note Facility 05-19-2025 Telephone encounter Note Sent [facility] 05-19-2025 Miscellaneous Notes Sent Patient is looking for a script for proctofoam. Patient is using 2 times daily in rectum. Was originally ordered by Dr Galo, but he states it now needs to come from [email or web address] documented in this encounter [facility] 05-19-2025 Telephone encounter Note Patient is looking for a script for proctofoam. Patient is using 2 times daily in rectum. Was originally ordered by Dr Galo, but he states it now needs to come from [email or web address] [facility] 05-11-2025 Miscellaneous Notes ----- Message from Veronica Galo DO sent at 05/11/2025 7:20 AM EDT ----- Please call retirement attendants and let him know that he has a acute inflammation of the extensive ulceration and he should continue the Proctofoam HC as prescribed. Thanks, Dr. Wheeler ----- Message ----- From: Lab, Background User Sent: 05/10/2025 5:28 PM EDT To: Veronica Galo DO Spoke with patient's healthcare or medical Santi regarding pathology results. Santi verbally understood and questions were answered to the best of my ability. Santi would like to know what is causing this inflammation. I informed Santi I would send Dr. Galo her question and call her back as soon as I received results. Will have Laila aracelis FIRE LOSS PREVENTION ENGINEER send another prescription of Proctofoam. Informed Santi that any refills will need to go through Dr. Weiss's office. [facility] 05-11-2025 Telephone encounter Note ----- Message from Veronica Galo DO sent at 05/11/2025 7:20 AM EDT ----- Please call retirement attendants and let him know that he has a acute inflammation of the extensive ulceration and he should continue the Proctofoam HC as prescribed. Thanks, Dr. Wheeler ----- Message ----- From: Raquel, Background User Sent: 05/10/2025 5:28 PM EDT To: Veronica [facility] DO [email or web address] 05-11-2025 Telephone encounter Note Spoke with patient's healthcare or medical Santi regarding pathology results. Santi verbally understood and questions were answered to the best of my ability. Santi would like to know what is causing this inflammation. I informed Santi I would send Dr. Galo her question and call her back as soon as I received results. Will have Laila our FIRE LOSS PREVENTION ENGINEER send another prescription of Proctofoam. Informed Santi that any refills will need to go through Dr. Weiss's office. [facility] 04-26-2025 History of Present illness Narrative Images from the original note were not included. Chief Complaint: Rectal bleeding History of Present Illness Rj Colbert is a 24 y.o. male who presents to the office today for rectal bleeding. He lives in a retirement and staff member is present with him. [...] down he tears something there and this is what bleeds. Nothing visible on physical exam. Interval update 03/14/2025: Patient continues to struggle with constipation and rectal bleeding. He is taking MiraLax once daily. He states he constantly feels like he has to have a bowel movement, but when he goes to the bathroom nothing comes out. He denies any tissue prolapse. MEJIA completed at last appointment unrevealing. Would like to proceed with colonoscopy. Interval update [...] Medical History: Diagnosis Date Anxiety Bipolar disorder ([facility]) Cognitive impairment Panic disorder Schizoaffective disorder ([facility]) Schizophrenia ([facility]) Past Surgical History: Procedure Laterality Date ABDOMINAL SURGERY COLONOSCOPY DIAGNOSTIC / SCREENING N/A 03/24/2025 Performed by Veronica Galo DO at [facility] RECTOSIGMOIDECTOMY PERINEAL N/A 01/09/2024 Performed by Pushpa Silva MD at [facility] No Known Allergies Current Outpatient Medications: acetaminophen (TYLENOL EXTRA STRENGTH) 500 mg tablet, Take 2 tablets (1,000 mg total) by mouth every 6 (six) hours as needed for pain., Disp: 30 tablet, Rfl: 0 benztropine (COGENTIN) 2 mg tablet, Take 1 tablet (2 mg total) by mouth in the morning and 1 tablet (2 mg total) before bedtime., Disp: , Rfl: [...] and 1 tablet (10 mg total) before bedtime., Disp: , Rfl: [...] before bedtime., Disp: , Rfl: peg 3350-sod sulf,feud-ikz-zut 178.7-7.3-0.5 gram recon soln, Take 1 kit [...] patient/family/caregiver Referring and communicating with other health foster care therapist Rectal bleeding [K62.5] YAN GRIGSBY [facility] General Surgery [place] This note was created with the assistance of a speech recognition program. While intending to generate a timely document that accurately reflects the content of the visit, no guarantee can be provided that every grammatical or spelling mistake has been or will be identified or corrected. Thank you for your understanding. YAN Grigsby 04/26/25 1202 documented in this encounter [facility] 04-26-2025 Nurse Note Preoperative Education Checklist- General Surgery date: 05/02/25 Surgery time: 730a Arrival time: 610a 1. Bring a photo ID and your insurance card with you the day of surgery. You will check in at the main lobby of the [facility]- registration desk is straight ahead as soon as you walk in. Tell them you are here for surgery. 2. If you have a Living Will/Durable Power of Java J2Ee Architect for Health Care that is not on [...] after you have bathed. 5. NO nail latvian/acrylic on at least one finger. If you are having a hand, wrist or foot surgery then all nail latvian and artificial/acrylic nails must be removed from [...] least 8 hours and marijuana for 24 hours prior to arrival for your surgery. 16. Notify your surgeon if you develop any illness before your surgery. 17. If you are staying overnight, please DO NOT BRING your home medications with you. 18. If you have any questions prior to surgery, please call the Preadmission Testing office at [phone], Mon.-Fri. 7 a.m.-3 p.m. Leave a voicemail if needed. Pre-Surgery Instructions: Medication Instructions acetaminophen (TYLENOL EXTRA STRENGTH) 500 mg tablet Continue as prescribed, take morning of procedure benztropine (COGENTIN) 2 mg tablet Continue as prescribed, take morning of procedure clonazePAM (KlonoPIN) 0.5 mg tablet Continue as prescribed, DO NOT take morning of procedure cloZAPine (CLOZARIL) 100 mg tablet Continue as prescribed, take morning of procedure cloZAPine (CLOZARIL) 200 mg tablet Continue as prescribed, take morning of procedure docusate sodium (COLACE) 100 mg capsule Continue as prescribed, DO NOT take morning of procedure FLUoxetine (PROzac) 40 MG capsule Continue as prescribed, DO NOT take morning of procedure haloperidol (HALDOL) 10 mg tablet Continue as prescribed, DO NOT take morning of procedure hydrocortisone-pramoxine (PROCTOFOAM-HS) rectal foam Per Surgeon's instructions ibuprofen (MOTRIN) 800 mg tablet Stop taking 1 week prior to procedure loratadine (CLARITIN) 10 mg tablet Continue as prescribed, DO NOT take morning of procedure polycarbophil (FIBERCON) 625 mg tablet Continue as prescribed, DO NOT take morning of procedure polyethylene glycol (GLYCOLAX) 17 gram packet Per Surgeon's instructions risperiDONE (RisperDAL) 1 mg tablet Continue as prescribed, DO NOT take morning of procedure [facility] 04-26-2025 Miscellaneous Notes Preoperative Education Checklist- General Surgery date: 05/02/25 Surgery time: 730a Arrival time: 610a 1. Bring a photo ID and your insurance card with you the day of surgery. You will check in at the main lobby of the [facility]- registration desk is straight ahead as soon as you walk in. Tell them you are here for surgery. 2. If you have a Living Will/Durable Power of Java J2Ee Architect for Health Care that is not on [...] after you have bathed. 5. NO nail latvian/acrylic on at least one finger. If you are having a hand, wrist or foot surgery then all nail latvian and artificial/acrylic nails must be removed from [...] least 8 hours and marijuana for 24 hours prior to arrival for your surgery. 16. Notify your surgeon if you develop any illness before your surgery. 17. If you are staying overnight, please DO NOT BRING your home medications with you. 18. If you have any questions prior to surgery, please call the Preadmission Testing office at [phone], Mon.-Fri. 7 a.m.-3 p.m. Leave a voicemail if needed. Pre-Surgery Instructions: Medication Instructions acetaminophen (TYLENOL EXTRA STRENGTH) 500 mg tablet Continue as prescribed, take morning of procedure benztropine (COGENTIN) 2 mg tablet Continue as prescribed, take morning of procedure clonazePAM (KlonoPIN) 0.5 mg tablet Continue as prescribed, DO NOT take morning of procedure cloZAPine (CLOZARIL) 100 mg tablet Continue as prescribed, take morning of procedure cloZAPine (CLOZARIL) 200 mg tablet Continue as prescribed, take morning of procedure docusate sodium (COLACE) 100 mg capsule Continue as prescribed, DO NOT take morning of procedure FLUoxetine (PROzac) 40 MG capsule Continue as prescribed, DO NOT take morning of procedure haloperidol (HALDOL) 10 mg tablet Continue as prescribed, DO NOT take morning of procedure hydrocortisone-pramoxine (PROCTOFOAM-HS) rectal foam Per Surgeon's instructions ibuprofen (MOTRIN) 800 mg tablet Stop taking 1 week prior to procedure loratadine (CLARITIN) 10 mg tablet Continue as prescribed, DO NOT take morning of procedure polycarbophil (FIBERCON) 625 mg tablet Continue as prescribed, DO NOT take morning of procedure polyethylene glycol (GLYCOLAX) 17 gram packet Per Surgeon's instructions risperiDONE (RisperDAL) 1 mg tablet Continue as prescribed, DO NOT take morning of procedure documented in this encounter [facility] 04-04-2025 Miscellaneous Notes ----- Message from Veronica Galo DO sent at 04/04/2025 8:14 AM EDT ----- Please let patient know that all biopsies were negative. Thanks, Dr. Wheeler ----- Message ----- From: Lab, Background User Sent: 04/02/2025 1:09 PM EDT To: Veronica Galo DO Spoke with patient's healthcare or medical Santi regarding pathology results. Santi verbally understood with no further questions. documented in this encounter [facility] 04-04-2025 Telephone encounter Note ----- Message from Veronica Galo DO sent at 04/04/2025 8:14 AM EDT ----- Please let patient know that all biopsies were negative. Thanks, Dr. Wheeler ----- Message ----- From: Raquel, Background User Sent: 04/02/2025 1:09 PM EDT To: Veronica Galo DO [facility] 04-04-2025 Telephone encounter Note Spoke with patient's healthcare or medical Santi regarding pathology results. Santi verbally understood with no further questions. [facility] 03-14-2025 History of Present illness Narrative Images from the original note were not included. Chief Complaint: Rectal bleeding History of Present Illness Rj Colbert is a 24 y.o. male who presents to the office today for rectal bleeding. He lives in a retirement and staff member is present with him. [...] down he tears something there and this is what bleeds. Nothing visible on physical exam. Interval update 03/14/2025: Patient continues to struggle with constipation and rectal bleeding. He is taking MiraLax once daily. He states he constantly feels like he has to have a bowel movement, but when he goes to the bathroom nothing comes out. He denies any tissue prolapse. MEJIA completed at last appointment unrevealing. Would like to proceed with colonoscopy. Review of [...] SURGERY RECTOSIGMOIDECTOMY PERINEAL N/A 01/09/2024 Performed by Pushpa Silva MD at [facility] No Known Allergies Current Outpatient Medications: acetaminophen (TYLENOL EXTRA STRENGTH) 500 mg tablet, Take 2 tablets (1,000 mg total) by mouth every 6 (six) hours as needed for pain., Disp: 30 tablet, Rfl: 0 benztropine (COGENTIN) 2 mg tablet, Take 1 tablet (2 mg total) by mouth in the morning and 1 tablet (2 mg total) before bedtime., Disp: , Rfl: [...] and 1 tablet (10 mg total) before bedtime., Disp: , Rfl: [...] before bedtime., Disp: , Rfl: peg 3350-sod sulf,vnck-mrz-awe 178.7-7.3-0.5 gram recon soln, Take 1 kit [...] patient/family/caregiver Referring and communicating with other health foster care therapist Rectal bleeding [K62.5] YAN GRIGSBY [facility] General Surgery [place] This note was created with the assistance of a speech recognition program. While intending to generate a timely document that accurately reflects the content of the visit, no guarantee can be provided that every grammatical or spelling mistake has been or will be identified or corrected. Thank you for your understanding. YAN Grigsby 03/14/25 1158 documented in this encounter [facility] 01-07-2025 History of Present illness Narrative Images from the original note were not included. Chief Complaint: Rectal bleeding History of Present Illness Rj Colbert is a 24 y.o. male who presents to the office today for rectal bleeding. He lives in a retirement and staff member is present with him. [...] down he tears something there and this is what bleeds. Nothing visible on physical exam. Review of Systems Constitutional: Negative for fever and unexpected weight change. HENT: Negative for trouble swallowing. Respiratory: Negative for shortness of breath. Cardiovascular: Negative for chest pain. Gastrointestinal: Positive for constipation and blood in stool. Negative for nausea, vomiting, abdominal pain and diarrhea. Genitourinary: Negative for dysuria and difficulty urinating. Musculoskeletal: Negative for gait problem. Skin: Negative for rash and wound. Neurological: Negative for dizziness, weakness and light-headedness. Hematological: Does not bruise/bleed easily. Psychiatric/Behavioral: Negative for confusion. Past Medical History: Diagnosis Date Anxiety Cognitive impairment Panic disorder Schizophrenia (CMS-HCC) Past Surgical History: Procedure Laterality Date ABDOMINAL SURGERY RECTOSIGMOIDECTOMY PERINEAL N/A 01/09/2024 Performed by Pushpa Silva MD at [facility] No Known Allergies Current Outpatient Medications: acetaminophen (TYLENOL EXTRA STRENGTH) 500 mg tablet, Take 2 tablets (1,000 mg total) by mouth every 6 (six) hours as needed for pain., Disp: 30 tablet, Rfl: 0 benztropine (COGENTIN) 2 mg tablet, Take 1 tablet (2 mg total) by mouth in the morning and 1 tablet (2 mg total) before bedtime., Disp: , Rfl: clonazePAM (KlonoPIN) 0.5 mg tablet, Take 1 tablet (0.5 mg total) by mouth 3 (three) times a day., Disp: , Rfl: cloZAPine (CLOZARIL) 100 mg tablet, Take 1 tablet (100 mg total) by mouth 3 (three) times a day., Disp: , Rfl: cloZAPine (CLOZARIL) 200 mg [...] and 1 tablet (10 mg total) before bedtime., Disp: , Rfl: [...] gram packet, Take 17 g by mouth in the morning., Disp: , Rfl: risperiDONE (RisperDAL) 1 mg tablet, Take 1 tablet (1 mg total) by mouth in the morning and 1 tablet (1 mg total) before bedtime., Disp: , Rfl: polyethylene glycol (GLYCOLAX) 17 gram packet, Take 17 g by mouth 2 (two) times a day as needed (1-2 times daily as needed)., Disp: 60 packet, Rfl: 1 Social History Socioeconomic History Marital status: Single [...] No pertinent family history. Objective Physical Exam Exam conducted with a carbide die maker present. Constitutional: General: He is not in acute distress. Appearance: Normal appearance. He is not ill-appearing. HENT: Head: Normocephalic and atraumatic. Mouth/Throat: Mouth: Mucous membranes are moist. Eyes: Pupils: Pupils are equal, round, and reactive to light. Cardiovascular: Rate and Rhythm: Normal rate. Pulmonary: Effort: Pulmonary effort is normal. No respiratory distress. Abdominal: General: There is no distension. Genitourinary: Rectum: No mass, tenderness or external hemorrhoid. Normal anal tone. Comments: No external hemorrhoids, no prolapse upon asking patient to bear down, no gross blood, stool in vault Musculoskeletal: General: Normal range of motion. Cervical back: Normal range of motion. Skin: General: Skin is warm and dry. Neurological: Mental Status: He is alert and oriented to person, place, and time. Mental status is at baseline. Vital Signs: Height 177.8 cm (5' 10 ), weight 95.3 kg (210 lb). Respiratory Source: No data recorded Admission Weight: Weight: 95.3 kg (210 lb) Labs Lab Results Component Value Date [...] 12.0 01/08/2024 Assessment Rectal bleeding Chronic constipation Plan 64 oz of water daily, high-fiber diet, and MiraLax 1-2 times daily as needed. Do not sit on the toilet for long periods of time or strain. Offered colonoscopy, they would like to hold off at this time and will reconsider after trying dietary and lifestyle modifications. Follow up in 2-3 months if bleeding persist. Evaluation included: Preparing to see the patient (e.g., review of tests) Obtaining and/or reviewing separately obtained history Performing a medically appropriate examination and/or evaluation Counseling and educating the patient/family/caregiver Referring and communicating with other health foster care therapist Rectal bleeding [K62.5] YAN GRIGSBY [facility] General Surgery [place] This note was created with the assistance of a speech recognition program. While intending to generate a timely document that accurately reflects the content of the visit, no guarantee can be provided that every grammatical or spelling mistake has been or will be identified or corrected. Thank you for your understanding. YAN Grigsby 01/07/25 1105 documented in this encounter [facility] 01-07-2025 Miscellaneous Notes Addended by: LAILA GONZALEZ on: 01/07/2025 11:05 AM Modules accepted: Orders documented in this encounter [facility] 01-07-2025 Note Addended by: LAILA GONZALEZ on: 01/07/2025 11:05 AM Modules accepted: Orders [facility] 07-14-2024 History of Present illness Narrative Associated Problem(s): Seasonal allergic rhinitis [...] medication and continue. documented in this encounter [facility] 01-26-2024 History of Present illness Narrative Images from the original note were not included. [facility] Colorectal Surgery [address] [address] Patient: Rj Colbert Date of : 2000 Encounter Date: 01/26/2024 History of Present Illness: The patient is 23 y.o. male and presents for postoperative follow-up s/p repair of rectal prolapse. Patient presented with incarcerated prolapse. He underwent Altemeier procedure. Patient now follows up. Patient is accompanied by netsuite consultant. He is doing well. He denies any [...] Reynold Kuo MD documented in this encounter [facility] 03-28-2022 Miscellaneous Notes Spoke with the pharmacist and she states that she does not provide food items. She will speak with the nurse at the retirement. Pharmacy, [facility], [facility], phone , any pharmacist to clarify about carbonate? CALM is retirement able to order as food item? Please call to discuss. documented in this encounter [facility] 03-28-2022 Miscellaneous Notes Opened in error documented in this encounter [facility] 03-28-2022 Miscellaneous Notes Addended by: ARNOLD GENAO on: 03/28/2022 03:11 PM Modules accepted: Orders Addended by: CHARLEY MCCLELLAND on: 03/28/2022 02:47 PM Modules accepted: Orders documented in this encounter [facility] 03-28-2022 Note HNO ID: [id number] Author: Arnold Genao MD Service: ? Author Type: Physician Type: Progress Notes Filed: 03/28/2022 11:58 AM Note Text: COLORECTAL SURGERY March 28, 2022 Rj Colbert 21 year old Chief Complaint: hematochezia History of Present Illness: Rj Colbert is a 21 year old male presents to the office for evaluation of hematochezia. Last seen in the office on 11/16/21 with Cristal Nava PRODUCTION GEAR CUTTER for follow up visit after he underwent [...] exam Anorectal: External exam reveals: see below Junior Accountant present: yes Assessment Assessment and Plan: Rj Colbert is a 21 year old male with straining and occasional rectal bleeding. Today, we talked about adding a magnesium supplement CALM to his regimen to decrease straining. I am of the opinion that more surgery is not the best option at this time. Arnold Genao MD Colorectal Surgery [facility] 03-28-2022 Nurse Note Calm education given for constipation. What is the reason for your visit today? Established patient presents for hematochezia. Who is your referring physician? Are you having poor oral intake? NO Have you had unintentional weight loss of 15 lbs/7 Kg in the last 3-6 months? NO Bowels: regular Wound: None Temperature: No Drains: No documented in this encounter [facility] 03-28-2022 History of Present illness Narrative COLORECTAL SURGERY March 28, 2022 Rj Colbert 21 year old Chief Complaint: hematochezia History of Present Illness: Rj Colbert is a 21 year old male presents to the office for evaluation of hematochezia. Last seen in the office on 11/16/21 with Cristal Nava PRODUCTION GEAR CUTTER for follow up visit after he underwent [...] exam Anorectal: External exam reveals: see below Junior Accountant present: yes Assessment Assessment and Plan: Rj Colbert is a 21 year old male with straining and occasional rectal bleeding. Today, we talked about adding a magnesium supplement CALM to his regimen to decrease straining. I am of the opinion that more surgery is not the best option at this time. Arnold Genao MD Colorectal Surgery documented in this encounter [facility] 11-16-2021 Note HNO ID: [id number] Author: Cristal Nava APRN.FIRE LOSS PREVENTION ENGINEER Service: ? Author Type: Nurse Practitioner Type: [...] results with patient and POA. Cristal Nava APRN.FIRE LOSS PREVENTION ENGINEER Colorectal Surgery [facility] 10-17-2021 Note HNO ID: [id number] Author: Hunter Massey APRN.NETWORK OPERATIONS TECHNICIAN Service: Anesthesiology Author Type: Nurse Impregnator Operator Type: Anesthesia Procedure Notes Filed: 10/17/2021 8:55 AM Note Text: ANESTHESIOLOGY PROCEDURE NOTE Airway General Information Procedure Start Time/Medication Administration: 10/17/2021 8:49 AM Patient location during procedure: OR Timeout Performed Pre-procedure: timeout performed Consent Obtained: Yes Patient identity confirmed: arm band, care team primary care physician and patient Staffing Anesthesiologist: Michael Martínez MD NETWORK OPERATIONS TECHNICIAN: Hunter Massey APRN.NETWORK OPERATIONS TECHNICIAN Performed by: SAMAN Indications and Patient Condition Preoxygenated: yes Patient position: sniffing Manual In-Line Stabilization: No Difficult Mask: No Indications for airway management: anesthesia anesthesia circuit Method: asleep Cricoid Pressure: No Final Airway Details Final airway type: supraglottic airway Number of attempts at approach: 1 Final Supraglottic Airway: i-gel Size 4 Seal Adequate: yes Airway not difficult SIGNATURE: Hunter Massey APRN.NETWORK OPERATIONS TECHNICIAN PATIENT NAME: Rj Colbert DATE: October 17, 2021 TIME: 8:54 AM CSN: [id number] [facility] 08-31-2021 Note HNO ID: [id number] Author: Arnold Genao MD Service: ? Author [...] Anorectal: External exam reveals : see below Junior Accountant present: yes Assessment Assessment and Plan: Rj Colbert is a 21 year old male who is doing relatively well after his recent rubber band ligation. He still has some rectal bleeding and it is difficult to assess the exact amount. If the bleeding persists we will consider internal hemorrhoidectomy. Arnold Genao MD Colorectal Surgery [facility] 07-12-2021 Note HNO ID: [id number] Author: Shanthi Chapman APRN.NETWORK OPERATIONS TECHNICIAN Service: Anesthesiology Author Type: Nurse Impregnator Operator Type: Anesthesia Procedure Notes Filed: 07/12/2021 10:54 AM Note Text: ANESTHESIOLOGY PROCEDURE NOTE Airway General Information Procedure Start Time/Medication Administration: 07/12/2021 10:48 AM Patient location during procedure: OR Patient identity confirmed: arm band, care team primary care physician and patient Staffing NETWORK OPERATIONS TECHNICIAN: Shanthi Chapman APRN.NETWORK OPERATIONS TECHNICIAN Performed by: SAMAN Indications and Patient Condition [...] no Airway not difficult SIGNATURE: Shanthi Chapman APRN.NETWORK OPERATIONS TECHNICIAN PATIENT NAME: Rj Colbert DATE: July 12, 2021 TIME: 10:53 AM CSN: [id number] [facility] 06-29-2021 Note HNO ID: [id number] Author: Arnold Genao MD Service: ? Author [...] (222 lb 4.8 oz) BMI 31.90 kg/m? Junior Accountant present: Yes Rj Colbert is a 21 year old male presents with complaint of rectal bleeding with prolapsing Grade 3 internal hemorrhoids on exam. Our plan is to perform an EUA and rubber band ligation of internal hemorrhoids at the [facility]. Medical Decision Making: Arnold [facility]ao [facility] Diagnosis Hematochezia- Primary Blood in stool [facility] Diagnosis Seasonal allergic rhinitis due to pollen- Primary Chronic constipation Unspecified constipation Chronic schizophrenia (CMS/HCC) Unspecified schizophrenia, chronic condition [facility] Rectal prolapse- Primary [facility] Rectal bleeding- Primary Hemorrhage of rectum and anus Chronic constipation Unspecified constipation Straining during bowel movements Other symptoms involving digestive system [facility] Diagnosis Rectal bleeding- Primary Hemorrhage of rectum and anus Chronic constipation Unspecified constipation Straining during bowel movements Other symptoms involving digestive system [facility] Diagnosis Rectal bleeding- Primary Hemorrhage of rectum and anus Chronic constipation Unspecified constipation Straining during bowel movements Other symptoms involving digestive system [facility] Diagnosis Proctitis Other specified disorder of rectum and anus [facility] Diagnosis Chronic constipation- Primary Unspecified constipation Seasonal allergic rhinitis due to pollen Chronic schizophrenia (HCC) Unspecified schizophrenia, chronic condition Mild intellectual disabilities Mild intellectual disabilities Developmental delay Unspecified delay in development Seasonal allergic rhinitis due to pollen- Primary Chronic constipation Unspecified constipation Chronic schizophrenia (HCC) Unspecified schizophrenia, chronic condition Seasonal allergic rhinitis due to pollen- Primary Chronic constipation Unspecified constipation Chronic schizophrenia (HCC) Unspecified schizophrenia, chronic condition Mild intellectual disabilities Mild intellectual disabilities Personal care impairment Rectal inflammation- Primary Other specified disorder of rectum and anus [facility]ructionsNot on filedocumented in this encounterPro[facility]* Attachments The following attachments cannot be sent through Care Everywhere. * Constipation in adults (Polish) documented in this encounterPro[facility] SystemInstructionsNot on file documented in this encounterProMedica Health SystemInstructionsNot on file documented in this encounterProMedica Health SystemInstructionsNot on file documented in this encounterProMedica Health SystemInstructionsNot on file documented in this encounterPro[facility] SystemInstructionsNot on file documented in this encounterProUniversity [facility] Summary Purpose Family History No Family History Records FoundNo Family History Records FoundNo Family History Records FoundNo Family History Records FoundNo Family History Records FoundNo Family History Records FoundNo Family History Records FoundNo Family History Records FoundNo Family History Records Found Advance Directives Documents on File Type Date Recorded 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 Advance Directive(s) 07/09/2021 9:04 AM Latest Code Status on File Code Status Date Activated Date Inactivated Comments Full Code 01/09/2024 4:52 AM 01/10/2024 3:12 PM Date Activated Date Inactivated Comments 01/09/2024 4:52 AM 01/10/2024 3:12 PM Date Activated Date Inactivated Comments 01/09/2024 4:52 AM 01/10/2024 3:12 PM Additional Source Comments (unrecognized sect ion and content) No Status Records FoundNo Status Records FoundNo Status Records FoundNo Status Records FoundNo Status Records FoundNo Status Records FoundNo Status Records FoundNo Status Records FoundNo Status Records Found INFORMATION SOURCE (unrecogn ized section and content) DATE CREATED AUTHOR 05/01/2018 [facility] DATE CREATED AUTHOR AUTHOR'S ORGANIZ ATION 10/31/2021 [facility] DATE CREATED AUTHOR AUTHOR'S ORGANIZ ATION 03/29/2022 [facility] DATE CREATED AUTHOR AUTHOR'S ORGANIZ ATION 04/04/2023 [facility] DATE CREATED AUTHOR AUTHOR'S ORGANIZ ATION 01/27/2024 [facility] DATE CREATED AUTHOR AUTHOR'S ORGANIZ ATION 01/14/2025 [facility] DATE CREATED AUTHOR AUTHOR'S ORGANIZ ATION 01/15/2025 [facility] DATE CREATED AUTHOR AUTHOR'S ORGANIZ ATION [facility]20[facility] DATE CREATED AUTHOR AUTHOR'S ORGANIZ ATION 05/14/[address] [facility] Source Comments (unrecognize d section and content) In the event this informatio n is protected by the Federal Confidentiality of Alcohol and Drug Abuse Patient Records regulations: The Federal rules restrict any use of the information to criminally investigate or prosecute any alcohol or drug abuse patient.[facility] Hospital[facility] the event this information is protected by the Federal Confidentiality of Alcohol and Drug Abuse Patient Records regulations: The Federal rules restrict any use of the information to criminally investigate or prosecute any alcohol or drug abuse patient.[facility] HospitalIn the event this information is protected by the Federal Confidentiality of Alcohol and Drug Abuse Patient Records regulations: The Federal rules restrict any use of the information to criminally investigate or prosecute any alcohol or drug abuse patient.[facility] Reason for Visit (unrecogniz ed section and content) Reason Comments Established Patient Follow-Up Rectal Bleeding Reason Comments Opened In Error no documentation-err or Reason Comments Medication Problem magnesium carbonate? vs? CALM Reason Comments Follow-up 6m f/up Reason Comments Post-op 2 week Reason Comments Rectal Bleeding RECTAL BLEEDING & HI STORY OF HEMORRHOIDS, CAREGIVER/SANTI KNOWS WE NEED TO HAVE GUARDIAN TO SIGN CONSENT Specialty Diagnoses / Procedures Referred By Contac t Referred To Contact General Surgery Diagnoses Rectal bleeding History of hemorrhoids Procedures AL OFFICE OUTPATIENT VISIT 60-74 MINS HIGH MDM [id number] (SNOMED CT) - AMB REFERRAL TO GENERAL SURGERY Benson Weiss MD [address] [place] [address] Phone: tel: fax: Megan Ahn MD [address] [place] [address] Phone: tel: fax: Referral ID Status Reason Start Date Expiration Date Visits Re quested Visits Authorized [id number] Closed 12/23/2024 06/21/2025 1 1 Reason Comments Follow-up PATIENT WAS SEEN ON 01/07/25 - MERY SAID TO FOLLOW UP IN 2 MONTHS - SYMPTOMS ARE ESCALUATING - RECTAL BLEEDING, ETC - NEEDS COLONOSCOPY Reason Comments Follow-up H & P update repeat colonoscopy on 05/02/[address] Galo - CAREGIVER - SANTI Reason Onset Date Comments Med Refill 05/19/2025 Care Teams (unrecognized sec tion and content) Risk Assessment Analyst Relationship Specialty Start Date End Date Benson Weiss MD [address] [place] [phone] PCP - General Family Medicine 01/07/24 Risk Assessment Analyst Relationship Specialty Start Date End Date Benson Weiss MD [address] [place] [phone] PCP - General Family Medicine 01/07/24 Risk Assessment Analyst Relationship Specialty Start Date End Date Benson Weiss MD [address] [place] [phone] PCP - General Family Medicine 01/07/24 Risk Assessment Analyst Relationship Specialty Start Date End Date Benson Weiss MD [address] [place] [phone] PCP - General Family Medicine 01/07/24 Risk Assessment Analyst Relationship Specialty Start Date End Date Benson Weiss MD [address] [place] [phone] PCP - General Family Medicine 01/07/24 Risk Assessment Analyst Relationship Specialty Start Date End Date Benson Weiss MD [address] [place] [phone] PCP - General Family Medicine 01/07/24 Benson Weiss MD [address] [place] [phone] PCP - [facility] Reach 12/03/24 Risk Assessment Analyst Relationship Specialty Start Date End Date Benson Weiss MD [address] [place], [place] [phone] PCP - General Family Medicine 01/08/24 Risk Assessment Analyst Relationship Specialty Start Date End Date Benson Weiss MD PCP - General Family Medicine 01/08/24 Risk Assessment Analyst Relationship Specialty Start Date End Date Benson Weiss MD [address] [place] [phone] PCP - General Family Medicine 01/07/24 Benson Weiss MD [address] [place] [phone] PCP - [facility] Re[facility] 12/03/24 Risk Assessment Analyst Relationship Specialty Start Date End Date Benson Weiss MD [address] [place] [phone] PCP - General Family Medicine 03/14/25 Risk Assessment Analyst Relationship Specialty Start Date End Date Benson Weiss MD [address] [place] [phone] PCP - [facility] 03/14/25 Risk Assessment Analyst Relationship Specialty Start Date End Date Benson Weiss MD PCP - [facility] 03/14/25 Risk Assessment Analyst Relationship Specialty Start Date End Date Benson Weiss MD PCP [facility] 03/14/25 Risk Assessment Analyst Relationship Specialty Start Date End Date Benson Weiss MD [facility] 03/14/25 Risk Assessment Analyst Relationship Specialty Start Date End Date Benson Weiss MD PCP [facility] 03/14/25 Risk Assessment Analyst Relationship Specialty Start Date End Date Benson Weiss MD [address] [place] [phone] PCP [facility] 01/07/24 Benson Weiss MD [address] [place] [phone] PCP - [facility] Reach 12/03/24 FOR RECORDS PERTAINING TO PATIENTS WHO ARE [...] BE BASED ON THE PRIMARY CLINICAL RECORDS. [facility] [employer] [facility]. provides no warranty or guarantee of the accuracy or completeness of information in this document.
[2025-06-09 16:36] LABS: Hematocrit 40.2 % (42.0-54.0); Hemoglobin 11.9 g/dL (14.0-18.0); Immature Granulocytes Abs Auto 0.01 10^3/uL (0.00-0.03); Immature Granulocytes Pct Auto 0.2 % (0.0-0.5); Lymphocytes Absolute Auto 1.6 10^3/uL (1.2-3.8); Mean Corpuscular HGB Conc 29.6 g/dL (29.9-35.2); Mean Corpuscular Hemoglobin 21.5 pg (25.9-34.0); Mean Corpuscular Volume 72.7 fL (80.0-94.0); Platelet Count 271 10^3/uL (150-450); Red Blood Count 5.53 10^6/uL (4.70-6.10); White Blood Count 5.2 10^3/uL (4.0-11.0)
== END 2025-06-09 16:22 | disposition home or self-care (01) ==
LOC: LAB 16:22
PROVIDERS: PCP Family Medicine
DX: Z79.899 Other long term (current) drug therapy (principal)
CPT/HCPCS: 36415; 85025

== ENCOUNTER 2025-07-09 08:51 | Outpatient (OUT) | payer MEDICARE, MEDICAID, SELFPAY ==
--- OUTSIDE RECORDS SUMMARY | 2025-07-09 08:57 | XMS_ITS | CCD ---
Author Organization [facility] Care Team Providers Care Literary Agent Name Role Phone Salam, Shaw Unavailable Unavailable Salam, Shaw Unavailable Unavailable Salam, Shaw Unavailable Unavailable NADERER, [phone] UNKNOWN Unavailable Unavailable Salam, Shaw Unavailable Unavailable Salam, Shaw Unavailable Unavailable Salam, Shaw Unavailable Unavailable NADERER, BENSON~[phone] UNKNOWN Unavailable Unavailable Unavailable Primary Care Provider [...] PAUL, JOHN DEL ROSARIO Attending Unavailable NADMALIHA, BNESON Primary Care Unavailable REYNOLD KUO Attending Unavailable KENANEREBENSON Schmidt Referring Unavailable NADERERoxana, BENSON Primary Care Unavailable Isela GAUTAM, Benson Primary Care Provider Benson Weiss MD Unavailable Benson Weiss MD Primary Care Provider Benson Weiss MD Primary Care Provider BENSON WEISS Attending Unavailable NADEREBENSON Schmidt Attending Unavailable KettyJean Carlos abbasi Attending Unavailab le Jean Carlos Hdez Admitting Unavailab le NO FAMILY, PHYSICIAN Primary Care Unavailable Benson Weiss MD Primary Care Provider [phone] Benson Weiss MD Primary Care Provider LAILA [...] Allergies] Propensity to adverse reactions (disorder) [facility] Repository Medications Current Medications Medication Drug Class(es) [...] Start: 10-17-2021 take 2 tablets by mo [facility] every six hours acetaminophen (TYLENOL) 325 mg tablet Take 2 tablets by mouth every 6 hours. 0 10/17/2021 Active Comment on above: Take 2 tablets by mo [facility] every 6 hours. benztropine mesylate 2 [...] the evening. Active [facility] hours as needed clonazePAM [...] / pramoxine hydrochloride 10 mg/ml topical foam (10 sources) Corticosteroid Start: 05-19-2025 Hydrocort-Pramoxine, Perianal, 1-1 [...] Discontinued (Reorder) Start: 03-24-2025 End: 05-11-2025 hydrocortisone-pramoxine (DC OCTOFOAM-HS) rectal foam Indications: Proctitis Insert 1 [...] bedtime . Used for constipation peg 3350-sod sulf,ouvg-sbx-qcz 178.7-7.3-0.5 gram recon soln (2 sources) Start: 04-26-2025 End: 04-27-2025 peg 3350-sod sulf,ctem-hpx-gus 178.7-7.3-0.5 gram recon soln Indications: Rectal bleeding [...] each 03/14/2025 03/15/2025 Active polyethylene glycol 3350 45838 mg powder for oral solution (12 sources) [...] Comment on above: Take 1 Packet by [facility] once daily. risperiDONE 1 mg [...] Da te Episodic/Chronic Anal and rectal conditions (20 sources) Rectal prolapse; Translations: [Rectal pain] Onset: 01-09-2024 01-26-2024 Episodic Attention-deficit, conduct, and disruptive behavior disorders (16 sources) Oppositional defiant disorder; Translations: [Oppositional defiant disorder] Onset: 01-07-2024 01-07-2024 Chronic Developmental disorders (16 sources) Mild intellectual disability; Translations: [Mild intellectual disabilities] Onset: 01-07-2024 01-07-2024 Chronic Disorders usually diagnosed in infancy, childhood, or adolescence (16 sources) Tic disorder; Translations: [Tic disorder, unspecified] Onset: 01-07-2024 01-07-2024 Chronic Gastrointestinal hemorrhage (9 sources) Blood-tinged feces; Translations: [Melena] Onset: 01-07-2025 Episodic Other aftercare (4 sources) Other long term care social worker (current) drug therapy; Translations: [OTH IT SECURITY ANALYST CURRENT DRUG THERAPY] Onset: 02-19-2023 Episodic Other gastrointestinal disorders (20 sources) Chronic constipation; Translations: [Other constipation] Onset: 01-07-2024 01-07-2024 Episodic Other gastrointestinal disorders (3 sources) Defecation straining; Translations: [Other specified symptoms and signs involving the digestive system and abdomen] 01-07-2025 Episodic Other gastrointestinal disorders (1 source) Other specified symptoms and signs involving the digestive system and abdomen; Translations: [Other specified symptoms and signs involving the digestive system and abdomen] Onset: 03-14-2025 Episodic Other nutritional; endocrine; and metabolic disorders (20 sources) Developmental delay; Translations: [Unspecified lack of expected normal physiological development in childhood] Onset: 07-10-2021 07-10-2021 Episodic Other upper respiratory disease (18 sources) Allergic rhinitis due to pollen; Translations: [Allergic rhinitis due to pollen] Onset: 01-07-2024 01-07-2024 Chronic Schizophrenia and other psychotic disorders (20 sources) Schizophrenia; Translations: [Schizophrenia, unspecified] Onset: 07-10-2021 07-10-2021 Chronic Unclassified (1 source) Post-op Onset: 01-26-2024 Unclassified (1 source) Medical Problem Onset: 01-09-2024 Unclassified (1 source) [place] transfer Onset: 01-09-2024 Unclassified (4 sources) Autogenerated Problem Onset: 03-14-2025 03-14-2025 Past or Other Problems Problem Classification Problem Date Documented Da te Episodic/Chronic Administrative/social admission (7 sources) Personal care impairment; Translations: [Need for assistance with personal care] Onset: 01-12-2025 01-12-2025 Episodic Hemorrhoids (3 sources) Hemorrhoids; Translations: [Unspecified hemorrhoids] Onset: 10-17-2021 10-17-2021 Episodic Malaise and fatigue (16 sources) Fatigue; Translations: [Other fatigue] Onset: 01-07-2024 01-07-2024 Episodic Other gastrointestinal disorders (1 source) Other constipation; Translations: [Other constipation] Onset: 01-07-2025 Episodic Results Test Name Value Interpretation Reference Range Facility ALL CBC WITH AUTO DIFFon BASOPHILS ABSOLUTE AUTO [address] [facility] Basophils/100 WBC (Bld) 0.8 % 0.2 - 2.0 % [facility] Eosinophils/100 WBC (Bld) 2.9 % 0.9 - 7.0 % [facility] Erythrocyte distribution width (RBC) [Ratio] 16.8 % High 11.0 - 15.0 % [facility] Hematocrit (Bld) [Volume fraction] 40.2 % Low 42.0 - 54.0 % [facility] Hemoglobin (Bld) [Mass/Vol] 11.9 g/dL Low 14.0 - 18.0 g/dL [facility] IMMATURE GRANULOCYTES ABS AUTO 0.[address] [facility] Immature granulocytes/100 WBC (Bld) 0.2 % 0.0 - 0.5 % [facility] Interpretation and review of laboratory results Abnormal [facility] LYMPHOCYTES ABSOLUTE AUTO 1.[address] [facility] Lymphocytes/100 WBC (Bld) 31 % 20.5 - 60.0 % [facility] MCH (RBC) [Entitic mass] 21.5 pg Low 25.9 - 34.[address] [facility] MCHC (RBC) [Mass/Vol] 29.6 g/dL Low 29.9 - 35.2 g/dL [facility] MCV (RBC) [Entitic vol] 72.7 fL Low 80.0 - 94.[address] [facility] MONOCYTES ABSOLUTE AUTO 0.[address] [facility] Monocytes/100 WBC (Bld) 9.9 % 1.7 - 12.0 % [facility] NEUTROPHILS ABSOLUTE AUTO 2.[address] [facility] Neutrophils/100 WBC (Bld) 55.2 % 43.0 - 75.0 % [facility] Platelet mean volume (Bld) [Entitic vol] 10.3 fL 9.5 - 13.5 [facility] PLT 271 [facility] RBC 5.53 [facility] WBC 5.[address] [facility] ALL CBC WITH AUTO DIFFon BASOPHILS ABSOLUTE AUTO [address] [facility] Basophils/100 WBC (Bld) 0.6 % 0.2 - 2.0 % [facility] Eosinophils/100 WBC (Bld) 2.1 % 0.9 - 7.0 % [facility] Erythrocyte distribution width (RBC) [Ratio] 17.9 % High 11.0 - 15.0 % [facility] Hematocrit (Bld) [Volume fraction] 43.6 % 42.0 - 54.0 % [facility] Hemoglobin (Bld) [Mass/Vol] 12.5 g/dL Low 14.0 - 18.0 g/dL [facility] IMMATURE GRANULOCYTES ABS AUTO 0.[address] [facility] Immature granulocytes/100 WBC (Bld) 0.2 % 0.0 - 0.5 % [facility] Interpretation and review of laboratory results Abnormal [facility] LYMPHOCYTES ABSOLUTE AUTO 1.[address] [facility] Lymphocytes/100 WBC (Bld) 21.7 % 20.5 - 60.0 % [facility] MCH (RBC) [Entitic mass] 21 pg Low 25.9 - 34.[address] [facility] MCHC (RBC) [Mass/Vol] 28.7 g/dL Low 29.9 - 35.2 g/dL [facility] MCV (RBC) [Entitic vol] 73.3 fL Low 80.0 - 94.[address] [facility] MONOCYTES ABSOLUTE AUTO 0.[address] [facility] Monocytes/100 WBC (Bld) 10.7 % 1.7 - 12.0 % [facility] NEUTROPHILS ABSOLUTE AUTO 4.[address] [facility] Neutrophils/100 WBC (Bld) 64.7 % 43.0 - 75.0 % [facility] Platelet mean volume (Bld) [Entitic vol] 10.4 fL 9.5 - 13.5 [facility]L [facility] 0.1 [facility] PLT 295 [facility] RBC 5.95 [facility] WBC 6.[address] [facility] ALL CBC WITH AUTO DIFFon BASOPHILS ABSOLUTE AUTO 0.[address] [facility] Basophils/100 WBC (Bld) 1 % 0.2 - 2.0 % [facility] Eosinophils/100 WBC (Bld) 5.4 % 0.9 - 7.0 % [facility] Erythrocyte distribution width (RBC) [Ratio] 19.3 % High 11.0 - 15.0 % [facility] Hematocrit (Bld) [Volume fraction] 39.2 % Low 42.0 - 54.0 % [facility] Hemoglobin (Bld) [Mass/Vol] 11.6 g/dL Low 14.0 - 18.0 g/dL [facility] IMMATURE GRANULOCYTES ABS AUTO 0.[address] [facility] Immature granulocytes/100 WBC (Bld) 0.3 % 0.0 - 0.5 % [facility] Interpretation and review of laboratory results Abnormal [facility] LYMPHOCYTES ABSOLUTE AUTO 1.[address] [facility] Lymphocytes/100 WBC (Bld) 26.2 % 20.5 - 60.0 % [facility] MCH (RBC) [Entitic mass] 21.2 pg Low 25.9 - 34.[address] [facility] MCHC (RBC) [Mass/Vol] 29.6 g/dL Low 29.9 - 35.2 g/dL [facility] MCV (RBC) [Entitic vol] 71.7 fL Low 80.0 - 94.[address] [facility] MONOCYTES ABSOLUTE AUTO 0.[address] [facility] Monocytes/100 WBC (Bld) 11.8 % 1.7 - 12.0 % [facility] NEUTROPHILS ABSOLUTE AUTO 3.[address] [facility] Neutrophils/100 WBC (Bld) 55.3 % 43.0 - 75.0 % [facility] Platelet mean volume (Bld) [Entitic vol] 10.7 fL 9.5 - 13.[address] [facility] EO # 0.3 [facility] PLT 304 [facility] RBC 5.47 [facility] WBC 6.[address] [facility] ALL CBC WITH AUTO DIFFon BASOPHILS ABSOLUTE AUTO [address] [facility] Basophils/100 WBC (Bld) 0.7 % 0.2 - 2.0 % [facility] Eosinophils/100 WBC (Bld) 3.3 % 0.9 - 7.0 % [facility] Erythrocyte distribution width (RBC) [Ratio] 20.8 % High 11.0 - 15.0 % [facility] Hematocrit (Bld) [Volume fraction] 43.3 % 42.0 - 54.0 % [facility] Hemoglobin (Bld) [Mass/Vol] 12.4 g/dL Low 14.0 - 18.0 g/dL [facility] IMMATURE GRANULOCYTES ABS AUTO 0.[address] [facility] Immature granulocytes/100 WBC (Bld) 0.2 % 0.0 - 0.5 % [facility] Interpretation and review of laboratory results Abnormal [facility] LYMPHOCYTES ABSOLUTE AUTO 1.[address] [facility] Lymphocytes/100 WBC (Bld) 28.8 % 20.5 - 60.0 % [facility] MCH (RBC) [Entitic mass] 20.2 pg Low 25.9 - 34.[address] [facility] MCHC (RBC) [Mass/Vol] 28.6 g/dL Low 29.9 - 35.2 g/dL [facility] MCV (RBC) [Entitic vol] 70.4 fL Low 80.0 - 94.[address] [facility] MONOCYTES ABSOLUTE AUTO 0.[address] [facility] Monocytes/100 WBC (Bld) 8.9 % 1.7 - 12.0 % [facility] NEUTROPHILS ABSOLUTE AUTO 3.[address] [facility] Neutrophils/100 WBC (Bld) 58.1 % 43.0 - 75.0 % [facility] Platelet mean volume (Bld) [Entitic vol] 9.7 fL 9.5 - 13.[address] [facility]H EO # 0.[address] [facility] TB PLT [address] [facility] TB RBC 6.[address] [facility] Comment on above: 1+ HYPO 1+ OVAL TBH WBC 5.[address] [facility] ALL CBC WITH AUTO DIFFon BASOPHILS ABSOLUTE AUTO 0.[address] [facility] Basophils/100 WBC (Bld) 0.7 % 0.2 - 2.0 % [facility] Eosinophils/100 WBC (Bld) 1.9 % 0.9 - 7.0 % [facility] Erythrocyte distribution width (RBC) [Ratio] 21.2 % High 11.0 - 15.0 % [facility] Hematocrit (Bld) [Volume fraction] 42.1 % 42.0 - 54.0 % [facility] Hemoglobin (Bld) [Mass/Vol] 12 g/dL Low 14.0 - 18.0 g/dL [facility] IMMATURE GRANULOCYTES ABS AUTO 0.[address] [facility] Immature granulocytes/100 WBC (Bld) 0.1 % 0.0 - 0.5 % [facility] Interpretation and review of laboratory results Abnormal [facility] LYMPHOCYTES ABSOLUTE AUTO 1.[address] [facility] Lymphocytes/100 WBC (Bld) 21.4 % 20.5 - 60.0 % [facility] MCH (RBC) [Entitic mass] 19.8 pg Low 25.9 - 34.[address] [facility] MCHC (RBC) [Mass/Vol] 28.5 g/dL Low 29.9 - 35.2 g/dL [facility] MCV (RBC) [Entitic vol] 69.4 fL Low 80.0 - 94.[address] [facility] MONOCYTES ABSOLUTE AUTO 0.[address] [facility] Monocytes/100 WBC (Bld) 9.5 % 1.7 - 12.0 % [facility] NEUTROPHILS ABSOLUTE AUTO 4.[address] [facility] Neutrophils/100 WBC (Bld) 66.4 % 43.0 - 75.0 % [facility] EO # 0.[address] [facility] PLT 274 [facility] RBC 6.[address] [facility] Comment on above: HYPOCHROMASIA 1+ ANISOCYTOSIS 2+ OVALOCYTOSIS 1+ BE CELLS 1+ TBH WBC 6.[address] [facility] ALL CBC WITH AUTO DIFFon BASOPHILS ABSOLUTE AUTO [address] [facility] Basophils/100 WBC (Bld) 0.5 % 0.2 - 2.0 % [facility] Eosinophils/100 WBC (Bld) 1.5 % 0.9 - 7.0 % [facility] Erythrocyte distribution width (RBC) [Ratio] 20.7 % High 11.0 - 15.0 % [facility] Hematocrit (Bld) [Volume fraction] 40.5 % Low 42.0 - 54.0 % [facility] Hemoglobin (Bld) [Mass/Vol] 11.3 g/dL Low 14.0 - 18.0 g/dL [facility] IMMATURE GRANULOCYTES ABS AUTO 0.[address] [facility] Immature granulocytes/100 WBC (Bld) 0.3 % 0.0 - 0.5 % [facility] Interpretation and review of laboratory results Abnormal [facility] LYMPHOCYTES ABSOLUTE AUTO [address] [facility] Lymphocytes/100 WBC (Bld) 26.4 % 20.5 - 60.0 % [facility] MCH (RBC) [Entitic mass] 18.8 pg Low 25.9 - 34.[address] [facility] MCHC (RBC) [Mass/Vol] 27.9 g/dL Low 29.9 - 35.2 g/dL [facility] MCV (RBC) [Entitic vol] 67.5 fL Low 80.0 - 94.[address] [facility] MONOCYTES ABSOLUTE AUTO 0.[address] [facility] Monocytes/100 WBC (Bld) 10.6 % 1.7 - 12.0 % [facility] NEUTROPHILS ABSOLUTE AUTO 4.[address] [facility] Neutrophils/100 WBC (Bld) 60.7 % 43.0 - 75.0 % [facility] Platelet mean volume (Bld) [Entitic vol] 9.9 fL 9.5 - 13.[address] [facility] EO # 0.1 [facility] WBC 7.[address] [facility] ALL CBC WITH AUTO DIFFon BASOPHILS ABSOLUTE AUTO [address] [facility] Basophils/100 WBC (Bld) 0.7 % 0.2 - 2.0 % [facility] Eosinophils/100 WBC (Bld) 0.5 % Low 0.9 - 7.0 % [facility] Erythrocyte distribution width (RBC) [Ratio] 20.8 % High 11.0 - 15.0 % [facility] Hematocrit (Bld) [Volume fraction] 40.4 % Low 42.0 - 54.0 % [facility] Hemoglobin (Bld) [Mass/Vol] 11.3 g/dL Low 14.0 - 18.0 g/dL [facility] IMMATURE GRANULOCYTES ABS AUTO 0.[address] [facility] Immature granulocytes/100 WBC (Bld) 0.3 % 0.0 - 0.5 % [facility] Interpretation and review of laboratory results Abnormal [facility] LYMPHOCYTES ABSOLUTE AUTO 1.[address] [facility] Lymphocytes/100 WBC (Bld) 26.3 % 20.5 - 60.0 % [facility] MCH (RBC) [Entitic mass] 18.8 pg Low 25.9 - 34.[address] [facility] MCHC (RBC) [Mass/Vol] 28 g/dL Low 29.9 - 35.2 g/dL [facility] MCV (RBC) [Entitic vol] 67.1 fL Low 80.0 - 94.[address] [facility] MONOCYTES ABSOLUTE AUTO [address] [facility] Monocytes/100 WBC (Bld) 16 % High 1.7 - 12.0 % [facility] NEUTROPHILS ABSOLUTE AUTO 3.[address] [facility] Neutrophils/100 WBC (Bld) 56.2 % 43.0 - 75.0 % [facility] Platelet mean volume (Bld) [Entitic vol] 10.3 fL 9.5 - 13.[address] [facility] EO # 0 [facility] PLT 291 [facility] RBC 6.[address] [facility] Comment on above: 2+ OVALOCYTES [facility] WBC 6.1 [facility] ALL CBC WITH AUTO DIFFon Erythrocyte distribution width (RBC) [Ratio] 21.2 % High 11.0 - 15.0 % [facility] Hematocrit (Bld) [Volume fraction] 40.1 % Low 42.0 - 54.0 % [facility] Hemoglobin (Bld) [Mass/Vol] 11.1 g/dL Low 14.0 - 18.0 g/dL [facility] Interpretation and review of laboratory results Abnormal [facility] MCH (RBC) [Entitic mass] 18.6 pg Low 25.9 - 34.[address] [facility] MCHC (RBC) [Mass/Vol] 27.7 g/dL Low 29.9 - 35.2 g/dL [facility] MCV (RBC) [Entitic vol] 67.1 fL Low 80.0 - 94.[address] [facility] Platelet mean volume (Bld) [Entitic vol] 9.5 fL 9.5 - 13.[address] [facility] PLT 269 [facility] RBC [address].98 [facility] WBC 6.3 [facility] ALL CBC WITH AUTO DIFFon BASOPHILS ABSOLUTE AUTO [address] [facility] Basophils/100 WBC (Bld) 0.8 % 0.2 - 2.0 % [facility] Eosinophils/100 WBC (Bld) 1 % 0.9 - 7.0 % [facility] Erythrocyte distribution width (RBC) [Ratio] 21.2 % High 11.0 - 15.0 % [facility] Hematocrit (Bld) [Volume fraction] 38.6 % Low 42.0 - 54.0 % [facility] Hemoglobin (Bld) [Mass/Vol] 10.5 g/dL Low 14.0 - 18.0 g/dL [facility] IMMATURE GRANULOCYTES ABS AUTO 0.[address] [facility] Immature granulocytes/100 WBC (Bld) 0.2 % 0.0 - 0.5 % [facility] Interpretation and review of laboratory results Abnormal [facility] LYMPHOCYTES ABSOLUTE AUTO 1.[address] [facility] Lymphocytes/100 WBC (Bld) 25.9 % 20.5 - 60.0 % [facility] MCH (RBC) [Entitic mass] 18.1 pg Low 25.9 - 34.[address] [facility] MCHC (RBC) [Mass/Vol] 27.2 g/dL Low 29.9 - 35.2 g/dL [facility] MCV (RBC) [Entitic vol] 66.4 fL Low 80.0 - 94.[address] [facility] MONOCYTES ABSOLUTE AUTO 0.[address] [facility] Monocytes/100 WBC (Bld) 13.7 % High 1.7 - 12.0 % [facility] NEUTROPHILS ABSOLUTE AUTO 2.[address] [facility] Neutrophils/100 WBC (Bld) 58.4 % 43.0 - 75.0 % [facility] EO # 0.[address] [facility] PLT [address] [facility] TB RBC 5.[address] [facility] Comment on above: HYPOCHROMASIA 2+ OVALOCYTOSIS 2+ ANISOCYTOSIS 2+ TBH WBC 4.[address] [facility] ALL CBC WITH AUTO DIFFon BASOPHILS ABSOLUTE AUTO [address] [facility] Basophils/100 WBC (Bld) 0.3 % 0.2 - 2.0 % [facility] Eosinophils/100 WBC (Bld) 0.6 % Low 0.9 - 7.0 % [facility] Erythrocyte distribution width (RBC) [Ratio] 21.9 % High 11.0 - 15.0 % [facility] Hematocrit (Bld) [Volume fraction] 39.7 % Low 42.0 - 54.0 % [facility] Hemoglobin (Bld) [Mass/Vol] 10.7 g/dL Low 14.0 - 18.0 g/dL [facility] IMMATURE GRANULOCYTES ABS AUTO 0.[address] [facility] Immature granulocytes/100 WBC (Bld) 0.1 % 0.0 - 0.5 % [facility] Interpretation and review of laboratory results Abnormal [facility] LYMPHOCYTES ABSOLUTE AUTO 1.[address] [facility] Lymphocytes/100 WBC (Bld) 27.6 % 20.5 - 60.0 % [facility] MCH (RBC) [Entitic mass] 17.5 pg Low 25.9 - 34.[address] [facility] MCHC (RBC) [Mass/Vol] 27 g/dL Low 29.9 - 35.2 g/dL [facility] MCV (RBC) [Entitic vol] 64.8 fL Low 80.0 - 94.[address] [facility] MONOCYTES ABSOLUTE AUTO 0.[address] [facility] Monocytes/100 WBC (Bld) 13.8 % High 1.7 - 12.0 % [facility] NEUTROPHILS ABSOLUTE AUTO 3.[address] [facility] Neutrophils/100 WBC (Bld) 57.6 % 43.0 - 75.0 % [facility] Platelet mean volume (Bld) [Entitic vol] 9.6 fL 9.5 - 13.[address] [facility] EO # [address] [facility] PLT [address] [facility] RBC 6.[address] [facility] Comment on above: HYPOCHROMASIA 1+ MICROCYTOSIS 2+ ANISOCYTOSIS 2+ OVALOCYTES 1+ TBH WBC 6.[address] [facility] ALL CBC WITH AUTO DIFFon BASOPHILS ABSOLUTE AUTO 0.[address] [facility] Basophils/100 WBC (Bld) 0.4 % 0.2 - 2.0 % [facility] Eosinophils/100 WBC (Bld) 0.4 % Low 0.9 - 7.0 % [facility] Erythrocyte distribution width (RBC) [Ratio] 22.1 % High 11.0 - 15.0 % [facility] Hematocrit (Bld) [Volume fraction] 38.7 % Low 42.0 - 54.0 % [facility] Hemoglobin (Bld) [Mass/Vol] 10.5 g/dL Low 14.0 - 18.0 g/dL [facility] IMMATURE GRANULOCYTES ABS AUTO 0.[address] [facility] Immature granulocytes/100 WBC (Bld) 0.2 % 0.0 - 0.5 % [facility] Interpretation and review of laboratory results Abnormal [facility] LYMPHOCYTES ABSOLUTE AUTO 1.[address] [facility] Lymphocytes/100 WBC (Bld) 31.6 % 20.5 - 60.0 % [facility] MCH (RBC) [Entitic mass] 17.5 pg Low 25.9 - 34.[address] [facility] MCHC (RBC) [Mass/Vol] 27.1 g/dL Low 29.9 - 35.2 g/dL [facility] MCV (RBC) [Entitic vol] 64.4 fL Low 80.0 - 94.[address] [facility] MONOCYTES ABSOLUTE AUTO 0.[address] [facility] Monocytes/100 WBC (Bld) 11.5 % 1.7 - 12.0 % [facility] NEUTROPHILS ABSOLUTE AUTO 3.[address] [facility] Neutrophils/100 WBC (Bld) 55.9 % 43.0 - 75.0 % [facility] Platelet mean volume (Bld) [Entitic vol] 9.2 fL Low 9.5 - 13.[address] [facility] EO # 0.[address] [facility] TB PLT 284 [facility] RBC 6.01 [facility] WBC 5.[address] [facility] BASIC METABOLIC PANLon 01-09 Anion gap [Moles/Vol] 8 mmol/L Normal 5-15 [facility] Comment on above: Performed By: #### C ANDRES BRYANT, #### [facility] ([id number]) [address], [address] [place] [address] Calcium [Mass/Vol] 8.5 mg/dL Normal 8.5-10.5 [facility] Comment on above: Performed By: #### C ANDRES BRYANT, #### [facility] ([id number]) [address], [address] [place] [address] Chloride [Moles/Vol] 106 mmol/L Normal 98-109 [facility] Comment on above: Performed By: #### ANDRES Briggs BCA, #### [facility] ([id number]) [address], [address] [place] [address] CO2 [Moles/Vol] 28 mmol/L Normal 22-32 [facility] Comment on above: Performed By: #### ANDRES Briggs BCA, #### [facility] ([id number]) [address], [address] [place] [address] Creatinine [Mass/Vol] 0.93 mg/dL Normal 0.60-1.30 [facility] Comment on above: Result Comment: METH OD TRACEABLE TO IDMS STANDARD Performed By: #### C ANDRES BRYANT, #### [facility] ([id number]) [address], [address] [place] [address] eGFR (CKD-EPI) NON-RACE DEPENDENT >90 Normal >59 [facility] Comment on above: Result Comment: Reported eGFR is based on the CKD-EPI 2020 equation that does not use a race coefficient. Performed By: #### C ANDRES BRYANT, #### [facility] ([id number]) [address], [address] [place] [address] Glucose [Mass/Vol] 87 mg/dL Normal 65-99 [facility] Comment on above: Performed By: #### C ANDRES BRYANT, #### [facility] LAB ([id number]) [address], [facility] [address] [place] [address] Potassium [Moles/Vol] 3.9 mmol/L Normal 3.5-5.0 [facility] Comment on above: Performed By: #### ANDRES Briggs BCA, #### [facility] ([id number]) [address], [address] [place] [address] Sodium [Moles/Vol] 142 mmol/L Normal 134-146 [facility] Comment on above: Performed By: #### Brigitte BRYANT [facility], #### [facility] ([id number]) [address], [address] [place] [address] Urea nitrogen [Mass/Vol] 13 mg/dL Normal 5-23 [facility] Comment on above: Performed By: #### Brigitte BRYANT [facility], #### [facility] ([id number]) [address] [address] [place] [address] CBC AND AUTO DIFFon 16-20 24 ABSOLUTE BASOPHIL 0.0 X10E9/L Normal 0.0-0.2 [facility] Comment on above: Performed By: #### ANDRES Briggs BCA, #### [facility] ([id number]) [address], [address] [place] [address] ABSOLUTE NEUTROPHIL 7.9 X10E9/L High 1.5-6.6 [facility] Comment on above: Performed By: #### C ANDRES BRYANT, #### [facility] ([id number]) [address], [address] [place] [address] Basophils/100 WBC (Bld) 0.2 % Normal [facility] Comment on above: Performed By: #### ANDRES Briggs BCA, #### [facility] ([id number]) [address], [address] [place] [address] Eosinophils (Bld) [#/Vol] 0.0 10*3/uL Normal 0.0-0.4 [facility] Comment on above: Performed By: #### ANDRES Briggs BCA, #### [facility] ([id number]) [address], [address] [place] [address] Eosinophils/100 WBC (Bld) 0.2 % Normal [facility] Comment on above: Performed By: #### ANDRES Briggs BCA, #### [facility] ([id number]) [address], [address] [place] [address] Erythrocyte distribution width (RBC) [Ratio] 20.7 % High 11.5-15.0 [facility] Comment on above: Performed By: #### ANDRES Briggs BCA, #### [facility] ([id number]) [address], [address] [place] [address] FRAGMENT 1+ Abnormal NONE [facility] Comment on above: Performed By: #### ANDRES Briggs BCA, #### [facility] ([id number]) [address], [address] [place] [address] Hematocrit (Bld) [Volume fraction] 30.0 % Low 39-49 [facility] Comment on above: Performed By: #### ANDRES Briggs BCA, #### [facility] ([id number]) [address] [place] [address] Hemoglobin (Bld) [Mass/Vol] 8.7 g/dL Low 13.0-17.0 [facility] Comment on above: Performed By: #### Brigitte BRYANT, BMP, #### [facility] ([id number]) [address] [place] [address] HYPOCHROMIA 2+ Abnormal NONE [facility] Comment on above: Performed By: #### Brigitte BRYANT, BMP, #### [facility] ([id number]) [address], [address] [place] [address] Lymphocytes (Bld) [#/Vol] 2.6 10*3/uL Normal 1.0-3.5 [facility] Comment on above: Performed By: #### Brigitte BRYANT BMP, #### [facility] ([id number]) [address], [address] [place] [address] Lymphocytes/100 WBC (Bld) 22.1 % Normal [facility] Comment on above: Performed By: #### Brigitte BRYANT BMP, #### [facility] ([id number]) [address] [place] [address] MCH (RBC) [Entitic mass] 16.7 pg Low 27-34 [facility] Comment on above: Performed By: #### Brigitte BRYANT, BMP, #### [facility] ([id number]) [address] [place] [address] MCHC (RBC) [Mass/Vol] 29.1 g/dL Low 32-36 [facility] Comment on above: Performed By: #### Brigitte BRYANT, BMP, #### [facility] ([id number]) [address], [address] [place] [address] MCV (RBC) [Entitic vol] 58 fL Low 80-100 [facility] Comment on above: Performed By: #### ANDRES Briggs BCA, #### [facility] ([id number]) [address] [place] [address] Monocytes (Bld) [#/Vol] 1.3 10*3/uL High 0-0.9 [facility] Comment on above: Performed By: #### ANDRES Briggs BCA, #### [facility] ([id number]) [address], [address] [place] [address] Monocytes/100 WBC (Bld) 11.2 % Normal [facility] Comment on above: Performed By: #### ANDRES Briggs BCA, #### [facility] ([id number]) [address], [address] [place] [address] Neutrophils/100 WBC (Bld) 66.3 % Normal [facility] Comment on above: Performed By: #### ANDRES Briggs BCA, #### [facility] ([id number]) [address], [address] [place] [address] OVALOCYTE 2+ Abnormal NONE [facility] Comment on above: Performed By: #### ANDRES Briggs BCA, #### [facility] ([id number]) [address], [address] [place] [address] Platelet mean volume (Bld) [Entitic vol] 8.7 fL Normal 7-12 [facility] Comment on above: Performed By: #### ANDRES Briggs BCA, #### [facility] ([id number]) [address], [address] [place] [address] Platelets (Bld) [#/Vol] 326 10*3/uL Normal 150-450 [facility] Comment on above: Performed By: #### C ANDRES BRYANT, #### [facility] ([id number]) [address], [address] [place] [address] RBC COUNT 5.21 X10E12/L Normal 4.10-5.70 [facility] Comment on above: Performed By: #### ANDRES Briggs BCA, #### [facility] ([id number]) [address] [place] [address] WBC (Bld) [#/Vol] 11.9 10*3/uL High 4.0-11.0 [facility] Comment on above: Performed By: #### ANDRES Briggs BCA, #### [facility] ([id number]) [address], [address] [place] [address] MAGNESIUMon 01-10-2024 Magnesium [Mass/Vol] 2.0 mg/dL Normal 1.8-2.6 [facility] Comment on above: Performed By: #### ANDRES Briggs BCA, #### [facility] ([id number]) [address], [address] [place] [address] BASIC METABOLIC PANLon 01-08 Anion gap [Moles/Vol] 9 mmol/L Normal 5-15 [facility] Comment on above: Performed By: #### ANDRES Briggs BCA, #### [facility] ([id number]) [address], [address] [place] [address] Calcium [Mass/Vol] 8.8 mg/dL Normal 8.5-10.5 [facility] Comment on above: Performed By: #### ANDRES Briggs BCA, #### [facility] ([id number]) [address] [place] [address] Chloride [Moles/Vol] 107 mmol/L Normal 98-109 [facility] Comment on above: Performed By: #### C MANNY [facility], #### [facility] ([id number]) [address] [address] [place] [address] CO2 [Moles/Vol] 25 mmol/L Normal 22-32 [facility] Comment on above: Performed By: #### C MANNY [facility], #### [facility] ([id number]) [address] [place] [address] Creatinine [Mass/Vol] 0.96 mg/dL Normal 0.60-1.30 [facility] Comment on above: Result Comment: METH OD TRACEABLE TO IDMS STANDARD Performed By: #### C ANDRES BRYANT, #### [facility] ([id number]) [address] [facility] [address] [place] [address] eGFR (CKD-EPI) NON-RACE DEPENDENT >90 Normal >59 [facility] Comment on above: Result Comment: Reported eGFR is based on the CKD-EPI 2020 equation that does not use a race coefficient. Performed By: #### C MANNY [facility], #### [facility] ([id number]) [address] [place] [address] Glucose [Mass/Vol] 117 mg/dL High 65-99 [facility] Comment on above: Performed By: #### C MANNY [facility], #### [facility] ([id number]) [address] [place] [address] Potassium [Moles/Vol] 4.5 mmol/L Normal 3.5-5.0 [facility] Comment on above: Performed By: #### C MANNY [facility], #### [facility] ([id number]) [address] [place] [address] Sodium [Moles/Vol] 141 mmol/L Normal 134-146 [facility] Comment on above: Performed By: #### C ANDRES BRYANT, #### [facility] ([id number]) [address] [place] [address] Urea nitrogen [Mass/Vol] 19 mg/dL Normal 5-23 [facility] Comment on above: Performed By: #### ANDRES Briggs BCA, #### [facility] ([id number]) [address] [place] [address] CBC AND AUTO DIFFon 01-09-20 24 ACANTHOCYTE 2+ Abnormal NONE [facility] Comment on above: Performed By: #### ANDRES Briggs BCA, #### [facility] ([id number]) [address] [place] [address] Erythrocyte distribution width (RBC) [Ratio] 21.0 % High 11.5-15.0 [facility] Comment on above: Performed By: #### ANDRES Briggs BCA, #### [facility] ([id number]) [address] [place] [address] FRAGMENT 1+ Abnormal NONE [facility] Comment on above: Performed By: #### ANDRES Briggs BCA, #### [facility] ([id number]) [address] [place] [address] Hematocrit (Bld) [Volume fraction] 32.9 % Low 39-49 [facility] Comment on above: Performed By: #### ANDRES Briggs BCA, #### [facility] ([id number]) [address], [address] [place] [address] Hemoglobin (Bld) [Mass/Vol] 9.4 g/dL Low 13.0-17.0 [facility] Comment on above: Performed By: #### Brigitte BRYANT BMP, #### [facility] ([id number]) [address] [place] [address] HYPOCHROMIA 2+ Abnormal NONE [facility] Comment on above: Performed By: #### ANDRES Briggs BCA, #### [facility] ([id number]) [address] [place] [address] Lymphocytes (Bld) [#/Vol] 0.6 10*3/uL Low 1.0-3.5 [facility] Comment on above: Performed By: #### ANDRES Briggs BCA, #### [facility] ([id number]) [address] [place] [address] Lymphocytes/100 WBC (Bld) 4.0 % Normal [facility] Comment on above: Performed By: #### ANDRES Briggs BCA, #### [facility] ([id number]) [address] [place] [address] MCH (RBC) [Entitic mass] 16.4 pg Low 27-34 [facility] Comment on above: Performed By: #### ANDRES Briggs BCA, #### [facility] ([id number]) [address] [place] [address] MCHC (RBC) [Mass/Vol] 28.6 g/dL Low 32-36 [facility] Comment on above: Performed By: #### ANDRES Briggs BCA, #### [facility] ([id number]) [address] [place] [address] MCV (RBC) [Entitic vol] 57 fL Low 80-100 [facility] Comment on above: Performed By: #### ANDRES Briggs BCA, #### [facility] ([id number]) [address] [place] [address] Monocytes (Bld) [#/Vol] 0.5 10*3/uL Normal 0-0.9 [facility] Comment on above: Performed By: #### ANDRES Briggs BCA, #### [facility] ([id number]) [address] [place] [address] Monocytes/100 WBC (Bld) 3.0 % Normal [facility] Comment on above: Performed By: #### ANDRES Briggs BCA, #### [facility] ([id number]) [address] [place] [address] Neutrophils (Bld) [#/Vol] 14.5 10*3/uL High 1.5-6.6 [facility] Comment on above: Performed By: #### ANDRES Briggs BCA, #### [facility] ([id number]) [address] [place] [address] OVALOCYTE 2+ Abnormal NONE [facility] Comment on above: Performed By: #### ANDRES Briggs BCA, #### [facility] ([id number]) [address] [place] [address] Platelet mean volume (Bld) [Entitic vol] 8.7 fL Normal 7-12 [facility] Comment on above: Performed By: #### ANDRES Briggs BCA, #### [facility] ([id number]) [address] [place] [address] Platelets (Bld) [#/Vol] 347 10*3/uL Normal 150-450 [facility] Comment on above: Performed By: #### ANDRES Briggs BCA, #### [facility] ([id number]) [address] [place] [address] POLYCHROMASIA 1+ Abnormal NONE [facility] Comment on above: Performed By: #### ANDRES Briggs BCA, #### [facility] ([id number]) [address] [place] [address] RBC COUNT 5.76 X10E12/L High 4.10-5.70 [facility] Comment on above: Performed By: #### Brigitte BRYANT, BMP, [address]-7 #### [facility] ([id number]) [address] [place] [address] SEG NEUTROPHIL 93.0 % Normal [facility] Comment on above: Performed By: #### Brigitte BRYANT, BMP, [address]-6 #### [facility] ([id number]) [address] [place] [address] TEARDROP 1+ Abnormal NONE [facility] Comment on above: Performed By: #### Brigitte BRYANT BMP, [address]-5 #### [facility] ([id number]) [address] [place] [address] WBC (Bld) [#/Vol] 15.6 10*3/uL High 4.0-11.0 [facility] Comment on above: Performed By: #### Brigitte BRYANT, BMP, [address]67-8 #### [facility] ([id number]) [address] [place] [address] MAGNESIUMon 01-09-2024 Magnesium [Mass/Vol] 2.0 mg/dL Normal 1.8-2.6 [facility] Comment on above: Performed By: #### Brigitte BRYANT, BMP, #### [facility] ([id number]) [address] [place] [address] Surgical Pathologyon 024 Surgical Pathology Normal [facility] Comment on above: Result Comment: [facility] [address] [place] [id number] Surgical Pathology Consultation Patient Name:ADDIE COLBERTOB:2000 (Age: 23)Gender:MTaken:01/09/2024eported:01/13/2024hysician(s):Pushpa Silva MD ([phone])Copy To: Rec. #:[id number]: #[id number] Final Pathologic Diagnosis Rectosigmoidectomy: Mucosal ischemic change with superficial mucosal necrosis, acute inflammation, hyalinization of lamina propria and atrophic crypts. Strands of smooth muscle extending into lamina propria with surface erosion compatible with prolapse changes. No malignancy identified. Report Electronically Signed [facility]/01/13/2024Suangelita Cortez [place] [address], License number: [id number]. Clinical History Rectal prolapse, ischemic rectum. Gross [...] sections of proximal margin G edematous wall (7,ss,[id number], m1) . /01/09/2024 Specimen(s) Received Rectum and sigmoid Fee Codes(s): 1; 15999 CBC AUTO DIFFon 03-26-2023 BASO # 0.0 103/ul Normal 0.0-0.1 [facility] Comment on above: Performed By: #### C BC #### [facility] [address] [address] [address] Sonido Bejarano Basophils/100 WBC (Bld) 0.7 % Normal 0.2-2.0 [facility] Comment on above: Performed By: #### C BC #### [facility] [address] [address] [address] Sonido Bejarano EO # 0.1 103/ul Normal 0.0-0.7 [facility] Comment on above: Performed By: #### C BC #### [facility] [address] [address] [address] Sonido Bejarano Eosinophils/100 WBC (Bld) 1.0 % Normal 0.9-7.0 [facility] Comment on above: Performed By: #### C BC #### [facility] [address] [place] [address] Dr. Sonido Bejarano Erythrocyte distribution width (RBC) [Ratio] 22.3 % Critically high 11.0-15.0 [facility] Comment on above: Performed By: #### C BC #### [facility] [address] [place] [address] Dr. Sonido Bejarano Hematocrit (Bld) [Volume fraction] 32.0 % Critically low 42.0-54.0 [facility] Comment on above: Performed By: #### C BC #### [facility] [address] [place] [address] Dr. Sonido Bejarano Hemoglobin (Bld) [Mass/Vol] 8.3 g/dL Critically low 14.0-18.0 [facility] Comment on above: Performed By: #### C BC #### [facility] [address] [place] [address] Dr. Sonido Bejarano IG # 0.01 10e3/ul Normal 0.00-0.03 [facility] Comment on above: Performed By: #### C BC #### [facility] [address] [place] [address] Dr. Sonido Bejarano IG % 0.2 % Normal 0.0-0.5 [facility] Comment on above: Performed By: #### C BC #### [facility] [address] [address] [address] Sonido Bejaraon LYMPH # 1.2 103/ul Normal 1.2-3.8 [facility] Comment on above: Performed By: #### C BC #### [facility] [address] [place] [address] Dr. Sonido Bejarano Lymphocytes/100 WBC (Bld) 20.1 % Critically low 20.5-60.0 [facility] Comment on above: Performed By: #### C BC #### [facility] [address] [place] [address] Dr. Sonido Bejarano MANUAL DIFF REQ NO Normal [facility] Comment on above: Performed By: #### C BC #### [facility] [address] [place] [address] Dr. Sonido Bejarano MCH (RBC) [Entitic mass] 15.7 pg Critically low 25.9-34.0 [facility] Comment on above: Performed By: #### C BC #### [facility] [address] [place] [address] Dr. Sonido Bejarano MCHC (RBC) [Mass/Vol] 25.9 g/dL Critically low 29.9-35.2 [facility] Comment on above: Performed By: #### C BC #### [facility] [address] [place] [address] Dr. Sonido Bejarano MCV (RBC) [Entitic vol] 60.6 fL Critically low 80.0-94.0 [facility] Comment on above: Performed By: #### C BC #### [facility] [address] [place] [address] Dr. Sonido Bejarano MONO # 0.7 103/ul Normal 0.3-0.8 [facility] Comment on above: Performed By: #### C BC #### [facility] [address] [place] [address] Dr. Sonido Bejarano Monocytes/100 WBC (Bld) 12.2 % Critically high 1.7-12.0 [facility] Comment on above: Performed By: #### C BC #### [facility] [address] [place] [address] Dr. Sonido Bejarano NEUT # 3.8 103/ul Normal 1.4-6.5 [facility] Comment on above: Performed By: #### C BC #### [facility] [address] [place] [address] Dr. Sonido Bejarano Neutrophils/100 WBC (Bld) 65.8 % Normal 43.0-75.0 [facility] Comment on above: Performed By: #### C BC #### [facility] [address] [place] [address] Dr. Sonido Bejarano Platelet mean volume (Bld) [Entitic vol] 9.2 fL Critically low 9.5-13.5 [facility] Comment on above: Performed By: #### C BC #### [facility] [address] [place] [address] Dr. Sonido Bejarano PLT 369 103/ul Normal 150-450 [facility] Comment on above: Performed By: #### C BC #### [facility] [address] [place] [address] Dr. Sonido Bejarano RBC 5.28 106/ul Normal 4.70-6.10 [facility] Comment on above: Performed By: #### C BC #### [facility] [address] [place] [address] Dr. Sonido Bejarano WBC 5.8 103/ul Normal 4.0-11.0 [facility] Comment on above: Performed By: #### C BC #### [facility] [address] [place] [address] Dr. Sonido Bejarano CBC AUTO DIFFon 02-19-2023 BASO # 0.0 103/ul Normal 0.0-0.1 [facility] Comment on above: Performed By: #### C BC #### [facility] [address] [place] [address] Dr. Sonido Bejarano Basophils/100 WBC (Bld) 0.7 % Normal 0.2-2.0 [facility] Comment on above: Performed By: #### C BC #### [facility] [address] [place] [address] Dr. Sonido Bejarano EO # 0.1 103/ul Normal 0.0-0.7 [facility] Comment on above: Performed By: #### C BC #### [facility] [address] [place] [address] Dr. Sonido Bejarano Eosinophils/100 WBC (Bld) 1.1 % Normal 0.9-7.0 [facility] Comment on above: Performed By: #### C BC #### [facility] [address] [place] [address] Dr. Sonido Bejarano Erythrocyte distribution width (RBC) [Ratio] 22.7 % Critically high 11.0-15.0 [facility] Comment on above: Performed By: #### C BC #### [facility] [address] [place] [address] Dr. Sonido Bejarano Hematocrit (Bld) [Volume fraction] 32.9 % Critically low 42.0-54.0 [facility] Comment on above: Performed By: #### C BC #### [facility] [address] [place] [address] Dr. Sonido Bejarano Hemoglobin (Bld) [Mass/Vol] 8.2 g/dL Critically low 14.0-18.0 [facility] Comment on above: Performed By: #### C BC #### [facility] [address] [place] [address] Dr. Sonido Bejarano IG # 0.02 10e3/ul Normal 0.00-0.03 [facility] Comment on above: Performed By: #### C BC #### [facility] [address] [place] [address] Dr. Sonido Bejarano IG % 0.3 % Normal 0.0-0.5 [facility] Comment on above: Performed By: #### C BC #### [facility] [address] [place] [address] Dr. Sonido Bejarano LYMPH # 1.4 103/ul Normal 1.2-3.8 [facility] Comment on above: Performed By: #### C BC #### [facility] [address] [address] [address] Sonido Bejarano Lymphocytes/100 WBC (Bld) 22.8 % Normal 20.5-60.0 [facility] Comment on above: Performed By: #### C BC #### [facility] [address] [place] [address] Dr. Sonido Bejarano MANUAL DIFF REQ NO Normal [facility] Comment on above: Performed By: #### C BC #### [facility] [address] [address] [address] Sonido Bejarano MCH (RBC) [Entitic mass] 15.3 pg Critically low 25.9-34.0 [facility] Comment on above: Performed By: #### C BC #### [facility] [address] [place] [address] Dr. Sonido Bejarano MCHC (RBC) [Mass/Vol] 24.9 g/dL Critically low 29.9-35.2 [facility] Comment on above: Performed By: #### C BC #### [facility] [address] [place] [address] Dr. Sonido Bejarano MCV (RBC) [Entitic vol] 61.3 fL Critically low 80.0-94.0 [facility] Comment on above: Performed By: #### C BC #### [facility] [address] [place] [address] Dr. Sonido Bejarano MONO # 0.7 103/ul Normal 0.3-0.8 [facility] Comment on above: Performed By: #### C BC #### [facility] [address] [place] [address] Dr. Sonido Bejarano Monocytes/100 WBC (Bld) 11.6 % Normal 1.7-12.0 [facility] Comment on above: Performed By: #### C BC #### [facility] [address] [place] [address] Dr. Sonido Bejarano NEUT # 3.9 103/ul Normal 1.4-6.5 [facility] Comment on above: Performed By: #### C BC #### [facility] [address] [place] [address] Dr. Sonido Bejarano Neutrophils/100 WBC (Bld) 63.5 % Normal 43.0-75.0 [facility] Comment on above: Performed By: #### C BC #### [facility] [address] [place] [address] Dr. Sonido Bejarano Platelet mean volume (Bld) [Entitic vol] 9.3 fL Critically low 9.5-13.5 [facility] Comment on above: Performed By: #### C BC #### [facility] [address] [place] [address] Dr. Sonido Bejarano PLT 394 103/ul Normal 150-450 [facility] Comment on above: Performed By: #### C BC #### [facility] [address] [place] [address] Dr. Sonido Bejarano RBC 5.37 106/ul Normal 4.70-6.10 [facility] Comment on above: Performed By: #### C BC #### [facility] [address] [place] [address] Dr. Sonido Bejarano WBC 6.1 103/ul Normal 4.0-11.0 [facility] Comment on above: Performed By: #### C BC #### [facility] [address] [place] [address] Dr. Sonido Bejarano CBC AUTO DIFFon 01-15-2023 BASO # 0.0 103/ul Normal 0.0-0.1 [facility] Comment on above: Performed By: #### C BC #### [facility] [address] [place] [address] Dr. Sonido Bejarano Basophils/100 WBC (Bld) 0.3 % Normal 0.2-2.0 [facility] Comment on above: Performed By: #### C BC #### [facility] [address] [place] [address] Dr. Sonido Bejarano EO # 0.0 103/ul Normal 0.0-0.7 [facility] Comment on above: Performed By: #### C BC #### [facility] [address] [place] [address] Dr. Sonido Bejarano Eosinophils/100 WBC (Bld) 0.4 % Critically low 0.9-7.0 [facility] Comment on above: Performed By: #### C BC #### [facility] [address] [place] [address] Dr. Sonido Bejarano Erythrocyte distribution width (RBC) [Ratio] 22.4 % Critically high 11.0-15.0 [facility] Comment on above: Performed By: #### C BC #### [facility] [address] [place] [address] Dr. Sonido Bejarano Hematocrit (Bld) [Volume fraction] 31.5 % Critically low 42.0-54.0 [facility] Comment on above: Performed By: #### C BC #### [facility] [address] [place] [address] Dr. Sonido Bejarano Hemoglobin (Bld) [Mass/Vol] 8.1 g/dL Critically low 14.0-18.0 [facility] Comment on above: Performed By: #### C BC #### [facility] [address] [place] [address] Dr. Sonido Bejarano IG # 0.02 10e3/ul Normal 0.00-0.03 [facility] Comment on above: Performed By: #### C BC #### [facility] [address] [place] [address] Dr. Sonido Bejarano IG % 0.3 % Normal 0.0-0.5 [facility] Comment on above: Performed By: #### C BC #### [facility] [address] [place] [address] Dr. Sonido Bejarano LYMPH # 1.3 103/ul Normal 1.2-3.8 [facility] Comment on above: Performed By: #### C BC #### [facility] [address] [place] [address] Dr. Sonido Bejarano Lymphocytes/100 WBC (Bld) 19.4 % Critically low 20.5-60.0 [facility] Comment on above: Performed By: #### C BC #### [facility] [address] [place] [address] Dr. Sonido Bejarano MANUAL DIFF REQ NO Normal [facility] Comment on above: Performed By: #### C BC #### [facility] [address] [place] [address] Dr. Sonido Bejarano MCH (RBC) [Entitic mass] 15.5 pg Critically low 25.9-34.0 [facility] Comment on above: Performed By: #### C BC #### [facility] [address] [place] [address] Dr. Sonido Bejarano MCHC (RBC) [Mass/Vol] 25.7 g/dL Critically low 29.9-35.2 [facility] Comment on above: Performed By: #### C BC #### [facility] [address] [place] [address] Dr. Sonido Bejarano MCV (RBC) [Entitic vol] 60.2 fL Critically low 80.0-94.0 [facility] Comment on above: Performed By: #### C BC #### [facility] [address] [place] [address] Dr. Sonido Bejarano MONO # 0.9 103/ul Critically high 0.3-0.8 [facility] Comment on above: Performed By: #### C BC #### [facility] [address] [place] [address] Dr. Sonido Bejarano Monocytes/100 WBC (Bld) 12.9 % Critically high 1.7-12.0 [facility] Comment on above: Performed By: #### C BC #### [facility] [address] [place] [address] Dr. Sonido Bejarano NEUT # 4.5 103/ul Normal 1.4-6.5 [facility] Comment on above: Performed By: #### C BC #### [facility] [address] [place] [address] Dr. Sonido Bejarano Neutrophils/100 WBC (Bld) 66.7 % Normal 43.0-75.0 [facility] Comment on above: Performed By: #### C BC #### [facility] [address] [place] [address] Dr. Sonido Bejarano Platelet mean volume (Bld) [Entitic vol] 9.2 fL Critically low 9.5-13.5 [facility] Comment on above: Performed By: #### C BC #### [facility] [address] [place] [address] Dr. Sonido Bejarano PLT 356 103/ul Normal 150-450 [facility] Comment on above: Performed By: #### C BC #### [facility] [address] [place] [address] Dr. Sonido Bejarano RBC 5.23 106/ul Normal 4.70-6.10 [facility] Comment on above: Result Comment: 2+ P OIKILOCYTOSIS 2+ ANISOCYTOSIS 2+ OVALOCYTE 1+ TEAR DROP CELL 2+ ACANTHOCYTE Performed By: #### C BC #### [facility] [address] [place] [address] Dr. Sonido Bejarano WBC 6.8 103/ul Normal 4.0-11.0 [facility] Comment on above: Performed By: #### C BC #### [facility] [address] [place] [address] Dr. Sonido Bejarano CBC AUTO DIFFon 12-20-2022 BASO # 0.0 103/ul Normal 0.0-0.1 [facility] Comment on above: Performed By: #### C BC #### [facility] [address] [place] [address] Dr. Sonido Bejarano Basophils/100 WBC (Bld) 0.5 % Normal 0.2-2.0 [facility] Comment on above: Performed By: #### C BC #### [facility] [address] [place] [address] Dr. Sonido Bejarano EO # 0.1 103/ul Normal 0.0-0.7 [facility] Comment on above: Performed By: #### C BC #### [facility] [address] [place] [address] Dr. Sonido Bejarano Eosinophils/100 WBC (Bld) 1.3 % Normal 0.9-7.0 [facility] Comment on above: Performed By: #### C BC #### [facility] [address] [place] [address] Dr. Sonido Bejarano Erythrocyte distribution width (RBC) [Ratio] 22.8 % Critically high 11.0-15.0 [facility] Comment on above: Performed By: #### C BC #### [facility] [address] [place] [address] Dr. Sonido Bejarano Hematocrit (Bld) [Volume fraction] 34.5 % Critically low 42.0-54.0 [facility] Comment on above: Performed By: #### C BC #### [facility] [address] [place] [address] Dr. Sonido Bejarano Hemoglobin (Bld) [Mass/Vol] 8.9 g/dL Critically low 14.0-18.0 [facility] Comment on above: Performed By: #### C BC #### [facility] [address] [place] [address] Dr. Sonido Bejarano IG # 0.01 10e3/ul Normal 0.00-0.03 [facility] Comment on above: Performed By: #### C BC #### [facility] [address] [place] [address] Dr. Sonido Bejarano IG % 0.2 % Normal 0.0-0.5 [facility] Comment on above: Performed By: #### C BC #### [facility] [address] [place] [address] Dr. Sonido Bejarano LYMPH # 1.0 103/ul Critically low 1.2-3.8 [facility] Comment on above: Performed By: #### C BC #### [facility] [address] [place] [address] Dr. Sonido Bejarano Lymphocytes/100 WBC (Bld) 18.3 % Critically low 20.5-60.0 [facility] Comment on above: Performed By: #### C BC #### [facility] [address] [place] [address] Dr. Sonido Bejarano MANUAL DIFF REQ NO Normal [facility] Comment on above: Performed By: #### C BC #### [facility] [address] [place] [address] Dr. Sonido Bejarano MCH (RBC) [Entitic mass] 15.6 pg Critically low 25.9-34.0 [facility] Comment on above: Performed By: #### C BC #### [facility] [address] [place] [address] Dr. Sonido Bejarano MCHC (RBC) [Mass/Vol] 25.8 g/dL Critically low 29.9-35.2 [facility] Comment on above: Performed By: #### C BC #### [facility] [address] [place] [address] Dr. Sonido Bejarano MCV (RBC) [Entitic vol] 60.6 fL Critically low 80.0-94.0 [facility] Comment on above: Performed By: #### C BC #### [facility] [address] [place] [address] Dr. Sonido Bejarano MONO # 0.7 103/ul Normal 0.3-0.8 [facility] Comment on above: Performed By: #### C BC #### [facility] [address] [place] [address] Dr. Sonido Bejarano Monocytes/100 WBC (Bld) 13.2 % Critically high 1.7-12.0 [facility] Comment on above: Performed By: #### C BC #### [facility] [address] [place] [address] Dr. Sonido Bejarano NEUT # 3.7 103/ul Normal 1.4-6.5 [facility] Comment on above: Performed By: #### C BC #### [facility] [address] [place] [address] Dr. Sonido Bejarano Neutrophils/100 WBC (Bld) 66.5 % Normal 43.0-75.0 [facility] Comment on above: Performed By: #### C BC #### [facility] [address] [place] [address] Dr. Sonido Bejarano Platelet mean volume (Bld) [Entitic vol] 9.6 fL Normal 9.5-13.5 [facility] Comment on above: Performed By: #### C BC #### [facility] [address] [address] [address] Sonido Bejarano PLT 441 103/ul Normal 150-450 [facility] Comment on above: Performed By: #### C BC #### [facility] [address] [place] [address] Dr. Sonido Bejarano RBC 5.69 106/ul Normal 4.70-6.10 [facility] Comment on above: Result Comment: Anis ocytosis 2+ Hypochromasia 2+ Poikilocytosis 2+ Ovalocytes 1+ Tear drop cells 1+ Acanthocytes 1+ Performed By: #### C BC #### [facility] [address] [place] [address] Dr. Sonido Bejarano WBC 5.5 103/ul Normal 4.0-11.0 [facility] Comment on above: Performed By: #### C BC #### [facility] [address] [place] [address] Dr. Sonido Bejarano CBC AUTO DIFFon 11-20-2022 BASO # 0.1 103/ul Normal 0.0-0.1 [facility] Comment on above: Performed By: #### C BC #### [facility] [address] [place] [address] Dr. Sonido Bejarano Basophils/100 WBC (Bld) 1.0 % Normal 0.2-2.0 [facility] Comment on above: Performed By: #### C BC #### [facility] [address] [place] [address] Dr. Sonido Bejarano EO # 0.1 103/ul Normal 0.0-0.7 [facility] Comment on above: Performed By: #### C BC #### [facility] [address] [place] [address] Dr. Sonido Bejarano Eosinophils/100 WBC (Bld) 2.1 % Normal 0.9-7.0 [facility] Comment on above: Performed By: #### C BC #### [facility] [address] [place] [address] Dr. Sonido Bejarano Erythrocyte distribution width (RBC) [Ratio] 23.0 % Critically high 11.0-15.0 [facility] Comment on above: Performed By: #### C BC #### [facility] [address] [place] [address] Dr. Sonido Bejarano Hematocrit (Bld) [Volume fraction] 32.6 % Critically low 42.0-54.0 [facility] Comment on above: Performed By: #### C BC #### [facility] [address] [address] [address] Sonido Bejarano Hemoglobin (Bld) [Mass/Vol] 8.0 g/dL Critically low 14.0-18.0 [facility] Comment on above: Performed By: #### C BC #### [facility] [address] [place] [address] Dr. Sonido Bejarano IG # 0.01 10e3/ul Normal 0.00-0.03 [facility] Comment on above: Performed By: #### C BC #### [facility] [address] [place] [address] Dr. Sonido Bejarano IG % 0.2 % Normal 0.0-0.5 [facility] Comment on above: Performed By: #### C BC #### [facility] [address] [place] [address] Dr. Sonido Bejarano LYMPH # 1.1 103/ul Critically low 1.2-3.8 [facility] Comment on above: Performed By: #### C BC #### [facility] [address] [place] [address] Dr. Sonido Bejarano Lymphocytes/100 WBC (Bld) 22.0 % Normal 20.5-60.0 [facility] Comment on above: Performed By: #### C BC #### [facility] [address] [place] [address] Dr. Sonido Bejarano MANUAL DIFF REQ NO Normal [facility] Comment on above: Performed By: #### C BC #### [facility] [address] [place] [address] Dr. Sonido Bejarano MCH (RBC) [Entitic mass] 15.6 pg Critically low 25.9-34.0 [facility] Comment on above: Performed By: #### C BC #### [facility] [address] [address] [address] Sonido Bejarano MCHC (RBC) [Mass/Vol] 24.5 g/dL Critically low 29.9-35.2 [facility] Comment on above: Performed By: #### C BC #### [facility] [address] [place] [address] Dr. Sonido Bejarano MCV (RBC) [Entitic vol] 63.4 fL Critically low 80.0-94.0 [facility] Comment on above: Performed By: #### C BC #### [facility] [address] [place] [address] Dr. Sonido Bejarano MONO # 0.6 103/ul Normal 0.3-0.8 [facility] Comment on above: Performed By: #### C BC #### [facility] [address] [place] [address] Dr. Sonido Bejarano Monocytes/100 WBC (Bld) 13.0 % Critically high 1.7-12.0 [facility] Comment on above: Performed By: #### C BC #### [facility] [address] [place] [address] Dr. Sonido Bejarano NEUT # 3.0 103/ul Normal 1.4-6.5 [facility] Comment on above: Performed By: #### C BC #### [facility] [address] [place] [address] Dr. Sonido Bejarano Neutrophils/100 WBC (Bld) 61.7 % Normal 43.0-75.0 [facility] Comment on above: Performed By: #### C BC #### [facility] [address] [place] [address] Dr. Sonido Bejarano Platelet mean volume (Bld) [Entitic vol] 8.6 fL Critically low 9.5-13.5 [facility] Comment on above: Performed By: #### C BC #### [facility] [address] [place] [address] Dr. Sonido Bejarano PLT 333 103/ul Normal 150-450 [facility] Comment on above: Performed By: #### C BC #### [facility] [address] [place] [address] Dr. Sonido Bejarano RBC 5.14 106/ul Normal 4.70-6.10 [facility] Comment on above: Performed By: #### C BC #### [facility] [address] [place] [address] Dr. Sonido Bejarano WBC 4.9 103/ul Normal 4.0-11.0 [facility] Comment on above: Performed By: #### C BC #### [facility] [address] [place] [address] Dr. Sonido Bejarano CBC AUTO DIFFon 10-11-2022 BASO # 0.0 103/ul Normal 0.0-0.1 [facility] Comment on above: Performed By: #### C BC #### [facility] [address] [place] [address] Dr. Sonido Bejarano Basophils/100 WBC (Bld) 0.8 % Normal 0.2-2.0 [facility] Comment on above: Performed By: #### C BC #### [facility] [address] [place] [address] Dr. Sonido Bejarano EO # 0.1 103/ul Normal 0.0-0.7 [facility] Comment on above: Performed By: #### C BC #### [facility] [address] [place] [address] Dr. Sonido Bejarano Eosinophils/100 WBC (Bld) 1.5 % Normal 0.9-7.0 [facility] Comment on above: Performed By: #### C BC #### [facility] [address] [place] [address] Dr. Sonido Bejarano Erythrocyte distribution width (RBC) [Ratio] 22.4 % Critically high 11.0-15.0 [facility] Comment on above: Performed By: #### C BC #### [facility] [address] [place] [address] Dr. Sonido Bejarano Hematocrit (Bld) [Volume fraction] 32.3 % Critically low 42.0-54.0 [facility] Comment on above: Performed By: #### C BC #### [facility] [address] [place] [address] Dr. Sonido Bejarano Hemoglobin (Bld) [Mass/Vol] 8.1 g/dL Critically low 14.0-18.0 [facility] Comment on above: Performed By: #### C BC #### [facility] [address] [place] [address] Dr. Sonido Bejarano IG # 0.01 10e3/ul Normal 0.00-0.03 [facility] Comment on above: Performed By: #### C BC #### [facility] [address] [place] [address] Dr. Sonido Bejarano IG % 0.2 % Normal 0.0-0.5 [facility] Comment on above: Performed By: #### C BC #### [facility] [address] [place] [address] Dr. Sonido Bejarano LYMPH # 1.2 103/ul Normal 1.2-3.8 [facility] Comment on above: Performed By: #### C BC #### [facility] [address] [place] [address] Dr. Sonido Bejarano Lymphocytes/100 WBC (Bld) 22.8 % Normal 20.5-60.0 [facility] Comment on above: Performed By: #### C BC #### [facility] [address] [place] [address] Dr. Sonido Bejarano MANUAL DIFF REQ NO Normal [facility] Comment on above: Performed By: #### C BC #### [facility] [address] [place] [address] Dr. Sonido Bejarano MCH (RBC) [Entitic mass] 15.1 pg Critically low 25.9-34.0 [facility] Comment on above: Performed By: #### C BC #### [facility] [address] [place] [address] Dr. Sonido Bejarano MCHC (RBC) [Mass/Vol] 25.1 g/dL Critically low 29.9-35.2 [facility] Comment on above: Performed By: #### C BC #### [facility] [address] [id number] Sonido Bejarano MCV (RBC) [Entitic vol] 60.0 fL Critically low 80.0-94.0 [facility] Comment on above: Performed By: #### C BC #### [facility] [address] [address] [address] Sonido Bejarano MONO # 0.7 103/ul Normal 0.3-0.8 [facility] Comment on above: Performed By: #### C BC #### [facility] [address] [address] [address] Sonido Bejarano Monocytes/100 WBC (Bld) 12.5 % Critically high 1.7-12.0 [facility] Comment on above: Performed By: #### C BC #### [facility] [address] [place] [address] Dr. Sonido Bejarano NEUT # 3.2 103/ul Normal 1.4-6.5 [facility] Comment on above: Performed By: #### C BC #### [facility] [address] [place] [address] Dr. Sonido Bejarano Neutrophils/100 WBC (Bld) 62.2 % Normal 43.0-75.0 [facility] Comment on above: Performed By: #### C BC #### [facility] [address] [place] [address] Dr. Sonido Bejarano Platelet mean volume (Bld) [Entitic vol] 8.6 fL Critically low 9.5-13.5 [facility] Comment on above: Performed By: #### C BC #### [facility] [address] [place] [address] Dr. Sonido Bejarano PLT 345 103/ul Normal 150-450 [facility] Comment on above: Performed By: #### C BC #### [facility] [address] [place] [address] Dr. Sonido Bejarano RBC 5.38 106/ul Normal 4.70-6.10 [facility] Comment on above: Performed By: #### C BC #### [facility] [address] [place] [address] Dr. Sonido Bejarano WBC 5.2 103/ul Normal 4.0-11.0 [facility] Comment on above: Performed By: #### C BC #### [facility] [address] [place] [address] Dr. Sonido Bejarano CBC W MANUAL DIFFon 09-18-20 ANISOCYTOSIS 3+ Normal [facility] Comment on above: Performed By: #### C BCMAN #### [facility] [address] [place] [address] Dr. Sonido Bejarano ATYPICAL LYMPH # Normal [facility] Comment on above: Performed By: #### C BCMAN #### [facility] [address] [place] [address] Dr. Sonido Bejarano ATYPICAL LYMPH % Normal [facility] Comment on above: Performed By: #### C BCMAN #### [facility] [address] [place] [address] Dr. Sonido Bejarano BAND # Normal 0.0-0.3 [facility] Comment on above: Performed By: #### C BCMAN #### [facility] [address] [place] [address] Dr. Sonido Bejarano BAND % Normal 0-5 [facility] Comment on above: Performed By: #### C BCMAN #### [facility] [address] [place] [address] Dr. Sonido Bejarano BASOM # 0.00 103/ul Normal 0.00-0.10 [facility] Comment on above: Performed By: #### C BCMAN #### [facility] [address] [place] [address] Dr. Sonido Bejarano BASOM % 0.0 % Critically low 0.2-2.0 [facility] Comment on above: Performed By: #### C BCMAN #### [facility] [address] [place] [address] Dr. Sonido Bejarano BLAST # Normal [facility] Comment on above: Performed By: #### C BCMAN #### [facility] [address] [place] [address] Dr. Sonido Bejarano BLAST % Normal [facility] Comment on above: Performed By: #### C RAMILA #### [facility] [address] [address] [address] Sonido Bejarano CORRECTED WBC Normal 4.0-11.0 [facility] Comment on above: Performed By: #### C RAMILA #### [facility] [address] [address] [address] Sonido Bejarano EOS # 0.08 103/ul Normal 0.00-0.70 [facility] Comment on above: Performed By: #### C RAMILA #### [facility] [address] [address] [address] Sonido Bejarano EOS% 2.0 % Normal 0.9-7.0 [facility] Comment on above: Performed By: #### C RAMILA #### [facility] [address] [place] [address] Dr. Sonido Bejarano HCT 31.1 % Critically low 42.0-54.0 [facility] Comment on above: Performed By: #### C RAMILA #### [facility] [address] [place] [address] Dr. Sonido Bejarano HGB 8.3 g/dl Critically low 14.0-18.0 [facility] Comment on above: Performed By: #### C RAMILA #### [facility] [address] [place] [address] Dr. Sonido Bejarano HYPOCHROMASIA SLIGHT Normal [facility] Comment on above: Performed By: #### C RAMILA #### [facility] [address] [place] [address] Dr. Sonido Bejarano LYMPHM # 1.13 103/ul Critically low 1.20-3.80 [facility] Comment on above: Performed By: #### C RAMILA #### [facility] [address] [place] [address] Dr. Sonido Bejarano LYMPHM% 27.0 % Normal 20.5-60.0 [facility] Comment on above: Performed By: #### C RAMILA #### [facility] [address] [place] [address] Dr. Sonido Bejarano MCH 15.9 pg Critically low 25.9-34.0 [facility] Comment on above: Performed By: #### C RAMILA #### [facility] [address] [address] [address] Sonido Bejarano MCHC 26.7 g/dl Critically low 29.9-35.2 [facility] Comment on above: Performed By: #### C BCKATHERINE #### [facility] [address] [address] [address] Sonido Bejarano MCV 59.5 fL Critically low 80.0-94.0 [facility] Comment on above: Performed By: #### C BCKATHERINE #### [facility] [address] [place] [address] Dr. Sonido Bejarano METAMYELOCYTE # Normal [facility] Comment on above: Performed By: #### C RAMILA #### [facility] [address] [place] [address] Dr. Sonido Bejarano METAMYELOCYTE % Normal [facility] Comment on above: Performed By: #### C RAMILA #### [facility] [address] [place] [address] Dr. Sonido Bejarano MICROCYTOSIS 3+ Normal [facility] Comment on above: Performed By: #### C RAMILA #### [facility] [address] [place] [address] Dr. Sonido Bejarano MONOM# 0.55 103/ul Normal 0.30-0.80 [facility] Comment on above: Performed By: #### C BCKATHERINE #### [facility] [address] [place] [address] Dr. Sonido Bejarano MONOM% 13.0 % Critically high 1.7-12.0 [facility] Comment on above: Performed By: #### C RAMILA #### [facility] [address] [place] [address] Dr. Sonido Bejarano MPV 9.7 fL Normal 9.5-13.5 [facility] Comment on above: Performed By: #### C BCKATHERINE #### [facility] [address] [address] [address] Sonido Bejarano MYELOCYTE # Normal [facility] Comment on above: Performed By: #### C RAMILA #### [facility] [address] [address] [address] Sonido Bejarano MYELOCYTE % Normal [facility] Comment on above: Performed By: #### C RAMILA #### [facility] [address] [id number] [address] Sonido Bejarano NRBC Normal [facility] Comment on above: Performed By: #### C RAMILA #### [facility] [address] [address] [address] Sonido Bejarano PLT 421 103/ul Normal 150-450 [facility] Comment on above: Performed By: #### C RAMILA #### [facility] [address] [place] [address] Dr. Sonido Bejarano RBC 5.23 106/ul Normal 4.70-6.10 [facility] Comment on above: Performed By: #### C RAMILA #### [facility] [address] [place] [address] Dr. Sonido Bejarano RDW 22.2 % Critically high 11.0-15.0 [facility] Comment on above: Performed By: #### C RAMILA #### [facility] [address] [place] [address] Dr. Sonido Bejarano SEG # 2.44 103/ul Normal 1.40-6.50 [facility] Comment on above: Performed By: #### C RAMILA #### [facility] [address] [place] [address] Dr. Sonido Bejarano SEG % 58.0 % Normal 43.0-75.0 [facility] Comment on above: Performed By: #### C RAMILA #### [facility] [address] [place] [address] Dr. Sonido Bejarano WBC 4.2 103/ul Normal 4.0-11.0 [facility] Comment on above: Performed By: #### C RAMILA #### [facility] [address] [place] [address] Dr. Sonido Bejarano CBC AUTO DIFFon 08-21-2022 BASO # 0.0 103/ul Normal 0.0-0.1 [facility] Comment on above: Performed By: #### C BC #### [facility] [address] [address] [address] Sonido Bejarano Basophils/100 WBC (Bld) 0.6 % Normal 0.2-2.0 [facility] Comment on above: Performed By: #### C BC #### [facility] [address] [address] [address] Sonido Bejarano EO # 0.1 103/ul Normal 0.0-0.7 [facility] Comment on above: Performed By: #### C BC #### [facility] [address] [place] [address] Dr. Sonido Bejarano Eosinophils/100 WBC (Bld) 1.0 % Normal 0.9-7.0 [facility] Comment on above: Performed By: #### C BC #### [facility] [address] [place] [address] Dr. Sonido Bejarano Erythrocyte distribution width (RBC) [Ratio] 21.9 % Critically high 11.0-15.0 [facility] Comment on above: Result Comment: anis ocytosis 2+ Performed By: #### C BC #### [facility] [address] [place] [address] Dr. Sonido Bejarano Hematocrit (Bld) [Volume fraction] 32.7 % Critically low 42.0-54.0 [facility] Comment on above: Performed By: #### C BC #### [facility] [address] [place] [address] Dr. Sonido Bejarano Hemoglobin (Bld) [Mass/Vol] 8.4 g/dL Critically low 14.0-18.0 [facility] Comment on above: Performed By: #### C BC #### [facility] [address] [place] [address] Dr. Sonido Bejarano IG # 0.01 10e3/ul Normal 0.00-0.03 [facility] Comment on above: Performed By: #### C BC #### [facility] [address] [address] [address] Sonido Bejarano IG % 0.2 % Normal 0.0-0.5 [facility] Comment on above: Performed By: #### C BC #### [facility] [address] [address] [address] Sonido Bejarano LYMPH # 1.1 103/ul Critically low 1.2-3.8 [facility] Comment on above: Performed By: #### C BC #### [facility] [address] [place] [address] Dr. Sonido Bejarano Lymphocytes/100 WBC (Bld) 22.3 % Normal 20.5-60.0 [facility] Comment on above: Performed By: #### C BC #### [facility] [address] [place] [address] Dr. Sonido Bejarano MANUAL DIFF REQ NO Normal [facility] Comment on above: Performed By: #### C BC #### [facility] [address] [place] [address] Dr. Sonido Bejarano MCH (RBC) [Entitic mass] 15.3 pg Critically low 25.9-34.0 [facility] Comment on above: Performed By: #### C BC #### [facility] [address] [place] [address] Dr. Sonido Bejarano MCHC (RBC) [Mass/Vol] 25.7 g/dL Critically low 29.9-35.2 [facility] Comment on above: Result Comment: hypo chromasia 2+ Performed By: #### C BC #### [facility] [address] [place] [address] Dr. Sonido Bejarano MCV (RBC) [Entitic vol] 59.6 fL Critically low 80.0-94.0 [facility] Comment on above: Result Comment: micr ocytosis 3+ Performed By: #### C BC #### [facility] [address] [place] [address] Dr. Sonido Bejarano MONO # 0.5 103/ul Normal 0.3-0.8 [facility] Comment on above: Performed By: #### C BC #### [facility] [address] [place] [address] Dr. Sonido Bejarano Monocytes/100 WBC (Bld) 10.8 % Normal 1.7-12.0 [facility] Comment on above: Performed By: #### C BC #### [facility] [address] [place] [address] Dr. Sonido Bejarano NEUT # 3.2 103/ul Normal 1.4-6.5 [facility] Comment on above: Performed By: #### C BC #### [facility] [address] [place] [address] Dr. Sonido Bejarano Neutrophils/100 WBC (Bld) 65.1 % Normal 43.0-75.0 [facility] Comment on above: Performed By: #### C BC #### [facility] [address] [place] [address] Dr. Sonido Bejarano Platelet mean volume (Bld) [Entitic vol] 9.5 fL Normal 9.5-13.5 [facility] Comment on above: Performed By: #### C BC #### [facility] [address] [place] [address] Dr. Sonido Bejarano PLT 415 103/ul Normal 150-450 [facility] Comment on above: Performed By: #### C BC #### [facility] [address] [place] [address] Dr. Sonido Bejarano RBC 5.49 106/ul Normal 4.70-6.10 [facility] Comment on above: Performed By: #### C BC #### [facility] [address] [place] [address] Dr. Sonido Bejarano WBC 5.0 103/ul Normal 4.0-11.0 [facility] Comment on above: Performed By: #### C BC #### [facility] [address] [place] [address] Dr. Sonido Bejarano CBC AUTO DIFFon 08-02-2022 BASO # 0.0 103/ul Normal 0.0-0.1 [facility] Comment on above: Performed By: #### C BC #### [facility] [address] [place] [address] Dr. Sonido Bejarano Basophils/100 WBC (Bld) 0.3 % Normal 0.2-2.0 [facility] Comment on above: Performed By: #### C BC #### [facility] [address] [place] [address] Dr. Sonido Bejarano EO # 0.0 103/ul Normal 0.0-0.7 [facility] Comment on above: Performed By: #### C BC #### [facility] [address] [place] [address] Dr. Sonido Bejarano Eosinophils/100 WBC (Bld) 0.7 % Critically low 0.9-7.0 [facility] Comment on above: Performed By: #### C BC #### [facility] [address] [place] [address] Dr. Sonido Bejarano Erythrocyte distribution width (RBC) [Ratio] 21.9 % Critically high 11.0-15.0 [facility] Comment on above: Performed By: #### C BC #### [facility] [address] [place] [address] Dr. Sonido Bejarano Hematocrit (Bld) [Volume fraction] 30.0 % Critically low 42.0-54.0 [facility] Comment on above: Performed By: #### C BC #### [facility] [address] [place] [address] Dr. Sonido Bejarano Hemoglobin (Bld) [Mass/Vol] 7.8 g/dL Critically low 14.0-18.0 [facility] Comment on above: Performed By: #### C BC #### [facility] [address] [place] [address] Dr. Sonido Bejarano IG # 0.01 10e3/ul Normal 0.00-0.03 [facility] Comment on above: Performed By: #### C BC #### [facility] [address] [place] [address] Dr. Sonido Bejarano IG % 0.2 % Normal 0.0-0.5 [facility] Comment on above: Performed By: #### C BC #### [facility] [address] [address] [address] Sonido Bejarano LYMPH # 1.0 103/ul Critically low 1.2-3.8 [facility] Comment on above: Performed By: #### C BC #### [facility] [address] [address] [address] Sonido Bejraano Lymphocytes/100 WBC (Bld) 18.0 % Critically low 20.5-60.0 [facility] Comment on above: Performed By: #### C BC #### [facility] [address] [address] [address] Sonido Bejarano MANUAL DIFF REQ NO Normal [facility] Comment on above: Performed By: #### C BC #### [facility] [address] [place] [address] Dr. Sonido Bejarano MCH (RBC) [Entitic mass] 15.9 pg Critically low 25.9-34.0 [facility] Comment on above: Performed By: #### C BC #### [facility] [address] [place] [address] Dr. Sonido Bejarano MCHC (RBC) [Mass/Vol] 26.0 g/dL Critically low 29.9-35.2 [facility] Comment on above: Performed By: #### C BC #### [facility] [address] [place] [address] Dr. Sonido Bejarano MCV (RBC) [Entitic vol] 61.2 fL Critically low 80.0-94.0 [facility] Comment on above: Performed By: #### C BC #### [facility] [address] [place] [address] Dr. Sonido Bejarano MONO # 0.5 103/ul Normal 0.3-0.8 [facility] Comment on above: Performed By: #### C BC #### [facility] [address] [place] [address] Dr. Sonido Bejarano Monocytes/100 WBC (Bld) 8.7 % Normal 1.7-12.0 [facility] Comment on above: Performed By: #### C BC #### [facility] [address] [address] [address] Sonido Bejarano NEUT # 4.1 103/ul Normal 1.4-6.5 [facility] Comment on above: Performed By: #### C BC #### [facility] [address] [address] [address] Sonido Bejarano Neutrophils/100 WBC (Bld) 72.1 % Normal 43.0-75.0 [facility] Comment on above: Performed By: #### C BC #### [facility] [address] [place] [address] Dr. Sonido Bejarano Platelet mean volume (Bld) [Entitic vol] 9.3 fL Critically low 9.5-13.5 [facility] Comment on above: Performed By: #### C BC #### [facility] [address] [place] [address] Dr. Sonido Bejarano PLT 339 103/ul Normal 150-450 [facility] Comment on above: Performed By: #### C BC #### [facility] [address] [place] [address] Dr. Sonido Bejarano RBC 4.90 106/ul Normal 4.70-6.10 [facility] Comment on above: Performed By: #### C BC #### [facility] [address] [place] [address] Dr. Sonido Bejarano WBC 5.7 103/ul Normal 4.0-11.0 [facility] Comment on above: Performed By: #### C BC #### [facility] [address] [place] [address] Dr. Sonido Bejarano CBC AUTO DIFFon 06-17-2022 BASO # 0.0 103/ul Normal 0.0-0.1 [facility] Comment on above: Performed By: #### C BC #### [facility] [address] [place] [address] Dr. Sonido Bejarano Basophils/100 WBC (Bld) 0.7 % Normal 0.2-2.0 [facility] Comment on above: Performed By: #### C BC #### [facility] [address] [place] [address] Dr. Sonido Bejarano EO # 0.3 103/ul Normal 0.0-0.7 [facility] Comment on above: Performed By: #### C BC #### [facility] [address] [place] [address] Dr. Sonido Bejarano Eosinophils/100 WBC (Bld) 5.3 % Normal 0.9-7.0 [facility] Comment on above: Performed By: #### C BC #### [facility] [address] [place] [address] Dr. Sonido Bejarano Erythrocyte distribution width (RBC) [Ratio] 22.1 % Critically high 11.0-15.0 [facility] Comment on above: Performed By: #### C BC #### [facility] [address] [place] [address] Dr. Sonido Bejarano Hematocrit (Bld) [Volume fraction] 32.2 % Critically low 42.0-54.0 [facility] Comment on above: Performed By: #### C BC #### [facility] [address] [place] [address] Dr. Sonido Bejarano Hemoglobin (Bld) [Mass/Vol] 8.2 g/dL Critically low 14.0-18.0 [facility] Comment on above: Performed By: #### C BC #### [facility] [address] [place] [address] Dr. Sonido Bejarano IG # 0.01 10e3/ul Normal 0.00-0.03 [facility] Comment on above: Performed By: #### C BC #### [facility] [address] [place] [address] Dr. Sonido Bejarano IG % 0.2 % Normal 0.0-0.5 [facility] Comment on above: Performed By: #### C BC #### [facility] [address] [place] [address] Dr. Sonido Bejarano LYMPH # 1.1 103/ul Critically low 1.2-3.8 [facility] Comment on above: Performed By: #### C BC #### [facility] [address] [address] [address] Sonido Bejarano Lymphocytes/100 WBC (Bld) 19.3 % Critically low 20.5-60.0 [facility] Comment on above: Performed By: #### C BC #### [facility] [address] [place] [address] Dr. Sonido Bejarano MANUAL DIFF REQ NO Normal [facility] Comment on above: Performed By: #### C BC #### [facility] [address] [place] [address] Dr. Sonido Bejarano MCH (RBC) [Entitic mass] 15.8 pg Critically low 25.9-34.0 [facility] Comment on above: Performed By: #### C BC #### [facility] [address] [place] [address] Dr. Sonido Bejarano MCHC (RBC) [Mass/Vol] 25.5 g/dL Critically low 29.9-35.2 [facility] Comment on above: Performed By: #### C BC #### [facility] [address] [place] [address] Dr. Sonido Bejarano MCV (RBC) [Entitic vol] 62.0 fL Critically low 80.0-94.0 [facility] Comment on above: Performed By: #### C BC #### [facility] [address] [place] [address] Dr. Sonido Bejarano MONO # 0.9 103/ul Critically high 0.3-0.8 [facility] Comment on above: Performed By: #### C BC #### [facility] [address] [place] [address] Dr. Sonido Bejarano Monocytes/100 WBC (Bld) 16.0 % Critically high 1.7-12.0 [facility] Comment on above: Performed By: #### C BC #### [facility] [address] [place] [address] Dr. Sonido Bejarano NEUT # 3.2 103/ul Normal 1.4-6.5 [facility] Comment on above: Performed By: #### C BC #### [facility] [address] [place] [address] Dr. Sonido Bejarano Neutrophils/100 WBC (Bld) 58.5 % Normal 43.0-75.0 [facility] Comment on above: Performed By: #### C BC #### [facility] [address] [place] [address] Dr. Sonido Bejarano Platelet mean volume (Bld) [Entitic vol] 9.3 fL Critically low 9.5-13.5 [facility] Comment on above: Performed By: #### C BC #### [facility] [address] [place] [address] Dr. Sonido Bejarano PLT 335 103/ul Normal 150-450 [facility] Comment on above: Performed By: #### C BC #### [facility] [address] [place] [address] Dr. Sonido Bejarano RBC 5.19 106/ul Normal 4.70-6.10 [facility] Comment on above: Performed By: #### C BC #### [facility] [address] [place] [address] Dr. Sonido Bejarano WBC 5.5 103/ul Normal 4.0-11.0 [facility] Comment on above: Performed By: #### C BC #### [facility] [address] [place] [address] Dr. Sonido Bejarano CBC AUTO DIFFon 05-15-2022 BASO # 0.0 103/ul Normal 0.0-0.1 [facility] Comment on above: Performed By: #### C BC #### [facility] [address] [place] [address] Dr. Sonido Bejarano Basophils/100 WBC (Bld) 0.8 % Normal 0.2-2.0 [facility] Comment on above: Performed By: #### C BC #### [facility] [address] [place] [address] Dr. Sonido Bejarano EO # 0.1 103/ul Normal 0.0-0.7 [facility] Comment on above: Performed By: #### C BC #### [facility] [address] [place] [address] Dr. Sonido Bejarano Eosinophils/100 WBC (Bld) 2.3 % Normal 0.9-7.0 [facility] Comment on above: Performed By: #### C BC #### [facility] [address] [place] [address] Dr. Sonido Bejarano Erythrocyte distribution width (RBC) [Ratio] 21.5 % Critically high 11.0-15.0 [facility] Comment on above: Performed By: #### C BC #### [facility] [address] [place] [address] Dr. Sonido Bejarano Hematocrit (Bld) [Volume fraction] 30.5 % Critically low 42.0-54.0 [facility] Comment on above: Performed By: #### C BC #### [facility] [address] [place] [address] Dr. Sonido Bejarano Hemoglobin (Bld) [Mass/Vol] 7.9 g/dL Critically low 14.0-18.0 [facility] Comment on above: Performed By: #### C BC #### [facility] [address] [place] [address] Dr. Sonido Bejarano IG # 0.01 10e3/ul Normal 0.00-0.03 [facility] Comment on above: Performed By: #### C BC #### [facility] [address] [place] [address] Dr. Sonido Bejarano IG % 0.2 % Normal 0.0-0.5 [facility] Comment on above: Performed By: #### C BC #### [facility] [address] [place] [address] Dr. Sonido Bejarano LYMPH # 1.3 103/ul Normal 1.2-3.8 [facility] Comment on above: Performed By: #### C BC #### [facility] [address] [place] [address] Dr. Sonido Bejarano Lymphocytes/100 WBC (Bld) 24.6 % Normal 20.5-60.0 [facility] Comment on above: Performed By: #### C BC #### [facility] [address] [place] [address] Dr. Sonido Bejarano MANUAL DIFF REQ NO Normal [facility] Comment on above: Performed By: #### C BC #### [facility] [address] [place] [address] Dr. Sonido Bejarano MCH (RBC) [Entitic mass] 15.6 pg Critically low 25.9-34.0 [facility] Comment on above: Performed By: #### C BC #### [facility] [address] [place] [address] Dr. Sonido Bejarano MCHC (RBC) [Mass/Vol] 25.9 g/dL Critically low 29.9-35.2 [facility] Comment on above: Performed By: #### C BC #### [facility] [address] [place] [address] Dr. Sonido Bejarano MCV (RBC) [Entitic vol] 60.4 fL Critically low 80.0-94.0 [facility] Comment on above: Performed By: #### C BC #### [facility] [address] [place] [address] Dr. Sonido Bejarano MONO # 0.6 103/ul Normal 0.3-0.8 [facility] Comment on above: Performed By: #### C BC #### [facility] [address] [place] [address] Dr. Sonido Bejarano Monocytes/100 WBC (Bld) 12.1 % Critically high 1.7-12.0 [facility] Comment on above: Performed By: #### C BC #### [facility] [address] [place] [address] Dr. Sonido Bejarano NEUT # 3.1 103/ul Normal 1.4-6.5 [facility] Comment on above: Performed By: #### C BC #### [facility] [address] [place] [address] Dr. Sonido Bejarano Neutrophils/100 WBC (Bld) 60.0 % Normal 43.0-75.0 [facility] Comment on above: Performed By: #### C BC #### [facility] [address] [place] [address] Dr. Sonido Bejarano Platelet mean volume (Bld) [Entitic vol] 9.6 fL Normal 9.5-13.5 [facility] Comment on above: Performed By: #### C BC #### [facility] [address] [place] [address] Dr. Sonido Bejarano PLT 399 103/ul Normal 150-450 [facility] Comment on above: Performed By: #### C BC #### [facility] [address] [place] [address] Dr. Sonido Bejarano RBC 5.05 106/ul Normal 4.70-6.10 [facility] Comment on above: Performed By: #### C BC #### [facility] [address] [place] [address] Dr. Sonido Bejarano WBC 5.1 103/ul Normal 4.0-11.0 [facility] Comment on above: Performed By: #### C BC #### [facility] [address] [place] [address] Dr. Sonido Bejarano CBC AUTO DIFFon 04-15-2022 BASO # 0.0 103/ul Normal 0.0-0.1 [facility] Comment on above: Performed By: #### C BC #### [facility] [address] [place] [address] Dr. Sonido Bejarano Basophils/100 WBC (Bld) 0.3 % Normal 0.2-2.0 [facility] Comment on above: Performed By: #### C BC #### [facility] [address] [place] [address] Dr. Sonido Bejarano EO # 0.1 103/ul Normal 0.0-0.7 [facility] Comment on above: Performed By: #### C BC #### [facility] [address] [place] [address] Dr. Sonido Bejarano Eosinophils/100 WBC (Bld) 1.0 % Normal 0.9-7.0 [facility] Comment on above: Performed By: #### C BC #### [facility] [address] [place] [address] Dr. Sonido Bejarano Erythrocyte distribution width (RBC) [Ratio] 21.2 % Critically high 11.0-15.0 [facility] Comment on above: Performed By: #### C BC #### [facility] [address] [place] [address] Dr. Sonido Bejarano Hematocrit (Bld) [Volume fraction] 32.2 % Critically low 42.0-54.0 [facility] Comment on above: Performed By: #### C BC #### [facility] [address] [place] [address] Dr. Sonido Bejarano Hemoglobin (Bld) [Mass/Vol] 8.3 g/dL Critically low 14.0-18.0 [facility] Comment on above: Performed By: #### C BC #### [facility] [address] [place] [address] Dr. Sonido Bejarano IG # 0.03 10e3/ul Normal 0.00-0.03 [facility] Comment on above: Performed By: #### C BC #### [facility] [address] [place] [address] Dr. Sonido Bejarano IG % 0.4 % Normal 0.0-0.5 [facility] Comment on above: Performed By: #### C BC #### [facility] [address] [place] [address] Dr. Sonido Bejarano LYMPH # 1.0 103/ul Critically low 1.2-3.8 [facility] Comment on above: Performed By: #### C BC #### [facility] [address] [place] [address] Dr. Sonido Bejarano Lymphocytes/100 WBC (Bld) 15.2 % Critically low 20.5-60.0 [facility] Comment on above: Performed By: #### C BC #### [facility] [address] [place] [address] Dr. Sonido Bejarano MANUAL DIFF REQ NO Normal [facility] Comment on above: Performed By: #### C BC #### [facility] [address] [place] [address] Dr. Sonido Bejarano MCH (RBC) [Entitic mass] 16.1 pg Critically low 25.9-34.0 [facility] Comment on above: Performed By: #### C BC #### [facility] [address] [address] [address] Sonido Bejarano MCHC (RBC) [Mass/Vol] 25.8 g/dL Critically low 29.9-35.2 [facility] Comment on above: Performed By: #### C BC #### [facility] [address] [address] [address] Sonido Bejarano MCV (RBC) [Entitic vol] 62.4 fL Critically low 80.0-94.0 [facility] Comment on above: Performed By: #### C BC #### [facility] [address] [place] [address] Dr. Sonido Bejarano MONO # 0.6 103/ul Normal 0.3-0.8 [facility] Comment on above: Performed By: #### C BC #### [facility] [address] [place] [address] Dr. Sonido Bejarano Monocytes/100 WBC (Bld) 8.5 % Normal 1.7-12.0 [facility] Comment on above: Performed By: #### C BC #### [facility] [address] [place] [address] Dr. Sonido Bejarano NEUT # 5.0 103/ul Normal 1.4-6.5 [facility] Comment on above: Performed By: #### C BC #### [facility] [address] [place] [address] Dr. Sonido Bejarano Neutrophils/100 WBC (Bld) 74.6 % Normal 43.0-75.0 [facility] Comment on above: Performed By: #### C BC #### [facility] [address] [address] [address] Sonido Bejarano Platelet mean volume (Bld) [Entitic vol] 9.9 fL Normal 9.5-13.5 [facility] Comment on above: Performed By: #### C BC #### [facility] [address] [place] [address] Dr. Sonido Bejarano PLT 355 103/ul Normal 150-450 [facility] Comment on above: Performed By: #### C BC #### [facility] [address] [place], [place] [address] Dr. Sonido Bejarano RBC 5.16 106/ul Normal 4.70-6.10 [facility] Comment on above: Result Comment: 1+ o valocytes slight hypochromic slight microchromic Performed By: #### C BC #### [facility] [address] [place], [place] [address] Dr. Sonido Bejarano WBC 6.7 103/ul Normal 4.0-11.0 [facility] Comment on above: Performed By: #### C BC #### [facility] [address] [place], [place] [address] Dr. Sonido Diana 03-28-2022 CNOV Office Visit ([facility] ) RJ COLBERT ([id number]) 2000 [place]* Date Time Provider Department 03/28/22 11:20 AM ARNOLD GENAO [facility] During your visit today, we [...] the office on 11/16/21 with Cristal Nava ETHICS MANAGER for follow up visit after he underwent [...] exam Anorectal: External exam reveals: see below Grocery Worker present: yes Assessment Assessment and Plan: [...] Assessed Reason for Visit: Established Patient Follow-Up [[id number]] Rectal Bleeding [202] Primary Visit Diagnosis:Hematochezia [K92.1] [...] benztropine (C (more content not included)... Normal [facility] CNPLesley 03-28-2022 CNPN Telephone ([facility]) RJ COLBERT ([id number]) 2000 Genia Reyez* Date Time Provider Department 03/28/22 ARNOLD GENAO [facility] During your visit today, we recorded the following information about you: Essie Skinner 03/28/2022 1:41 PM Signed Patient called and left message regarding prescription from today's visit return call to [phone] Charley Mcclelland RN 03/28/2022 2:49 PM Signed [...] Fully Assessed Reason for Visit: Patient Question [4447] Prescriptions as of 03/28/2022 - acetaminophen (TYLENOL) [...] Encounter Status:Closed by CHARLEY MCCLELLAND on 03/28/22 [facility] Telephone ([id number]) RJ COLBERT ([id number]) 2000 Genia Joseph Date Time Provider Department 03/28/22 ARNOLD GENAO [id number] During your visit today, we recorded the following information about you: Sara Rose [facility] 03/28/2022 3:45 PM Signed Pharmacy, [facility], [facility], phone , any pharmacist to clarify about carbonate? [facility] is halfway able to order as food item? Please call to discuss. Charley Mcclelland, RN 03/28/2022 4:14 PM Signed Spoke with the pharmacist and she states that she does not provide food items. She will speak with the nurse at the halfway. Allergies As of Date: 03/28/2022 (No Known [...] by CHARLEY MCCLELLAND on 03/28/22 [facility] CNOVon 11-16-2021 CNOV Office Visit ([facility] ) RJ COLBERT ([id number]) 2000 Genia Joseph Date Time Provider Department 11/16/21 1:30 PM CRISTAL NAVA During your visit today, we recorded the following information about you: Pulse Blood pressure Weight Height 60/minute 136/80 96.2 kg 1.803 m Cristal Nava APRN.RECEIVING TANK OPERATOR 11/16/2021 12:59 PM Signed COLORECTAL SURGERY [...] - ABDOMINAL SURGERY HX - HEMORRHOID;BAND LIGMARCELL, JENNIFER/MUL 07/12/2021 Current Outpatient Medications Medication Sig [...] results with patient and POA. Cristal Nava APRN.RECEIVING TANK OPERATOR Colorectal Surgery Referring Provider: ARNOLD GENAO [[id number]] Allergies As of Date: 11/16/2021 (No Known Allergies) Date Reviewed: 11/16/2021 Reviewed by: Cristal Nava APRN.[facility] - Fully Assessed Reason for [...] 07/10/2021 Hemorrho (more content not included)... Normal [facility] ANES POSTPROC EVALon 10-17- 021 ANES POSTPROC EVAL HNO ID: [id number] Author: Michael Martínez MD Service: Anesthesiology Author Type: Anesthesiologist Type: Anesthesia Postprocedure Evaluation Filed: 10/17/2021 10:23 AM Note Text: POST ANESTHESIA EVALUATION NOTE : 2000 Procedure Summary Date: 10/17/21 Room / Location: [address] Anesthesia Start: 08 Anesthesia Stop: 913 Procedure: HEMORRHOIDECTOMY EXTERNAL > [...] October 17, 2021 TIME: 10:23 AM CSN: [id number] [facility] ANES PRE-OPon 10-17-2021 ANES PRE-OP HNO ID: [id number] Author: Michael Martínez MD Service: Anesthesiology Author Type: Anesthesiologist Type: Anesthesia Preprocedure Evaluation Filed: 10/17/2021 8:32 AM Note Text: ANESTHESIOLOGY DAY OF SURGERY NOTE : 2000 Procedure Information Date/Time: 10/17/21 0730 Procedure: HEMORRHOIDECTOMY EXTERNAL > 2 COLUMNS/GROUPS (N/A ) Location: [address] / [facility] Surgeons: Arnold Genao MD Estimated [...] October 17, 2021 TIME: 8:27 AM CSN: [id number] [facility] BRIEF OP NOTon 10-17-2021 BRIEF OP NOT HNO ID: [id number] Author: Jared Rowe MD Service: Colorectal Author Type: Resident Type: Brief Op Note Filed: 10/17/2021 9:15 AM Note Text: BRIEF OPERATIVE / PROCEDURE NOTE LOG ID: [id number] SURGERY/PROCEDURE DATE: 10/17/2021 INCISION/PROCEDURE START TIME: 8:55 AM INCISION CLOSE/PROCEDURE END TIME: 9:02 AM SURGEON(S)/PROCEDURALIS T(S) AND NATURAL RESOURCES TECHNICIAN(S): Surgeon(s) and Role: * Arnold Genao MD [...] October 17, 2021 TIME: 9:13 AM Normal [facility] HISTORY PHYSICALon HISTORY PHYSICAL HNO ID: [id number] Author: Jared Rowe MD Service: Colorectal Author [...] October 17, 2021 TIME: 7:22 AM Normal [facility] OPERATIVE NOon 10-17-2021 OPERATIVE NO HNO ID: [id number] Author: Arnold Genao MD Service: Colorectal Author Type: Physician Type: Operative Report Filed: 10/30/2021 11:21 AM Note Text: [facility] - Operative Report RJ COLBERT : 2000 AGE: 21. SEX: M PATIENT TYPE: A HOSP SVC: CORS LOCATION: [facility] ATTENDING PHYSICIAN: Arnold Genao M.D. [facility] NUMBER: [id number] DATE OF SURGERY/PROCEDURE: 10/17/2021 INCISION/PROCEDURE START TIME: 8:55 AM INCISION CLOSE/PROCEDURE END TIME: 9:02 AM PREOPERATIVE DIAGNOSIS: Hemorrhoids. POSTOPERATIVE DIAGNOSIS: Hemorrhoids. SURGEON: Arnold Genao M.D. NATURAL RESOURCES TECHNICIAN: Jared. SURGERY/PROCEDURE: Ablation. ANESTHESIA: General ESTIMATED BLOOD [...] was overall very minor. Arnold Genao M.D. BC:[id number] Normal [facility] HISTORY PHYSICALon HISTORY PHYSICAL HNO ID: [id number] Author: Zahira Heath APRN.RECEIVING TANK OPERATOR Service: ? Author Type: Nurse Practitioner [...] PAT today with a caregiver from his halfway. States he is having around 5 bowel [...] fevers. Neuro: No history of TIA's, stroke, CLIENT ADVOCATE tumor, impaired sensorium, hemiplegia, paraplegia or quadraplegia. No neurological symptoms or problems. Respiratory: No history of current cough or dyspnea, or pneumonia in the past 6 weeks. No history of respiratory/pulmonary symptoms or problems. Cardiovascular: No history of HTN requiring medication, no history of angina, CHF, FL, cardiac surgery or stents. Denies rest pain, [...] skills. Pulse (more content not included)... Normal [facility] CNOVon 08-31-2021 CNOV Office Visit ([facility] ) RJ COLBERT ([id number]) 2000 Genia Joseph Date Time Provider Department 08/31/21 1:30 PM ARNOLD GENAO [facility] During your visit today, we recorded the [...] Anorectal: External exam reveals : see below Grocery Worker present: yes Assessment Assessment and Plan: Rj Colbert is a 21 year old male who is doing relatively well after his recent rubber band ligation. He still has some rectal bleeding and it is difficult to assess the exact amount. If the bleeding persists we will consider internal hemorrhoidectomy. Arnold Genao MD Colorectal Surgery Referring Provider: CARLOTA ELHAM [[id number]] Allergies As of Date: 08/31/2021 (No Known [...] Status:Closed by ARNOLD GENAO on 09/02/21 Normal [facility] OPERATIVE NOon 07-17-2021 OPERATIVE NO HNO ID: [id number] Author: Arnold Genao MD Service: Colorectal Author Type: Physician Type: Operative Report Filed: 08/01/2021 1:12 PM Note Text: [facility] - Operative Report RJ COLBERT : 2000 AGE: 21. SEX: M PATIENT TYPE: A HOSP SVC: CORS LOCATION: [facility] ATTENDING PHYSICIAN: Arnold Genao M.D. CSN NUMBER: [id number] DATE OF SURGERY/PROCEDURE: 07/12/2021 INCISION/PROCEDURE START TIME: 10:55 AM INCISION CLOSE/PROCEDURE END TIME: 10:58 AM PREOPERATIVE DIAGNOSIS: Rectal bleeding. POSTOPERATIVE DIAGNOSIS: Rectal bleeding. SURGEON: Arnold Genao M.D. NATURAL RESOURCES TECHNICIAN: None. SURGERY/PROCEDURE: Rubber-band ligation hemorrhoidectomy. ANESTHESIA: General [...] room in good condition. Arnold Genao M.D. BC:[id number] /[id number] [facility] RJ COLBERT ([id number]) 2000 [place] Date Time Provider Department 07/13/21 ARNOLD GENAO [facility] During your visit today, we recorded the following information about you: Essie Pickard Pss 07/13/2021 3:27 PM Signed Patient's caregiver called with post operative hemorrhoidectomy questions and concerns of bands falling off return call to [phone] Sara Rose ADM 07/16/2021 12:22 PM Signed Kasia, caregiver called. Patient banding undone. Called last Friday, waiting to talk to nurse about care. [phone] Nona Banks RN 07/16/2021 4:56 PM Signed [...] Status:Closed by NONA BANKS on 07/16/21 Normal [facility] ANES POSTPROC EVALon 021 ANES POSTPROC EVAL HNO ID: [id number] Author: Jared Arriaga MD Service: Anesthesiology Author Type: Anesthesiologist Type: Anesthesia Postprocedure Evaluation Filed: 07/12/2021 12:05 PM Note Text: POST ANESTHESIA EVALUATION NOTE : 2000 Procedure Summary Date: 07/12/21 Room / Location: [address] Anesthesia Start: 1044 Anesthesia Stop: 1110 [...] July 12, 2021 TIME: 12:05 PM CSN: [id number] [facility] ANES PRE-OPon 07-12-2021 ANES PRE-OP HNO ID: [id number] Author: Jared Arriaga MD Service: Anesthesiology Author [...] July 12, 2021 TIME: 9:18 AM CSN: [id number] [facility] HISTORY PHYSICALon HISTORY PHYSICAL HNO ID: [id number] Author: Arnold Genao MD Service: Colorectal Author [...] July 12, 2021 TIME: 10:39 AM Normal [facility] HISTORY PHYSICALon HISTORY PHYSICAL HNO ID: [id number] Author: Zahira Ivy PA-C Service: ? Author Type: Physician Electronic Field Service Engineer Type: HANDP Filed: 07/10/2021 2:28 PM Note [...] PAT today with a caregiver from his halfway. States he is having around 5 bowel [...] fevers. Neuro: No history of TIA's, stroke, CLIENT ADVOCATE tumor, impaired sensorium, hemiplegia, paraplegia or quadraplegia. No neurological symptoms or problems. + MR / DD Respiratory: No history of current cough or dyspnea, or pneumonia in the past 6 weeks. No history of respiratory/pulmonary symptoms or problems. Cardiovascular: No history of HTN requiring medication, no history of angina, CHF, FL, cardiac surgery or stents. Denies rest pain, [...] found for: (more content not included)... Normal [facility] 07-05-2021 [facility] Telephone ([id number]) RJ COLBERT ([id number]) 2000 Date Time Provider Department 07/05/21 ARNOLD GENAO [id number] During your visit today, we recorded the following information about you: Sara Rose ADM 07/05/2021 3:26 PM Signed Nurse Kasia [employer] Architect at halfway where patient resides called to discuss procedure information and date. Call to discuss [phone] Sara Rose ADM 07/06/2021 11:12 AM Signed Kasia nurse aware of 07/12 procedure date. Would like the nurse to call to advise any prep instructions other than fasting after midnight. Call Nurse Kasia mgr [phone] Cristal Nava APRN.RECEIVING TANK OPERATOR 07/06/2021 12:27 PM Signed Call returned. Reviewed NPO after midnight and scheduled PACCs appointment. Allergies As of Date: 07/05/2021 (No Known Allergies) Date Reviewed: 06/29/2021 Reviewed by: Arnold Genao MD - Fully Assessed Reason for Visit: procedure info [Other] Cmt: discuss plan Primary Visit Diagnosis:Hemorrhoids, internal, with bleeding [K64.8] Order(s):VIRTUAL CONSULT TO PACC [[id number]] Order #: [id number]: 1 FUTURE Prescriptions as of 07/06/2021 - [...] by CRISTAL NAVA on 07/06/21 [facility] CNOVon 06-29-2021 CNOV Office Visit ([facility] ) RJ COLBERT ([id number]) 2000 M Date Time Provider Department 06/29/21 [...] clinic today with a caregiver from his halfway. They relate that he is having around [...] (222 lb 4.8 oz) BMI 31.90 kg/m? Grocery Worker present: Yes Rj Colbert is a 21 year old male presents with complaint of rectal bleeding with prolapsing Grade 3 internal hemorrhoids on exam. Our plan is to perform an EUA and rubber band ligation of internal hemorrhoids at the [facility]. Medical Decision Making: Arnold Genao MD Colorectal Surgery Referring Provider: ELHAM VAN [[id number]] Allergies As of Date: 06/29/2021 (No Known [...] Encounter Status:Closed by ARNOLD GENAO on 06/29/21 [facility]22[facility] RJ COLBERT ([id number]) 2000 M Date Time Provider Department 05/22/21 ARNOLD GENAO [facility] During your visit today, we recorded the following information about you: Tamiko Sweeney 05/22/2021 3:28 PM Signed Ph. [phone] Santi, who works for [employer], was transferred to Dr. Van's office from the [facility]. 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 CODING DATE: 018 FINAL [facility] STATUS: Home (Routine DC) PAYOR: Medicaid [...] PROC EAPG STAT DESCRIPTION DOCTOR NAME DATE 90238 0149 Colonoscopy, flexible; Colin Shirley MD 04/17/2018 with biopsy, single or multiple 74 Discontinued [facility]Patient [facility] ([facility] Procedure After Administration of Anesthe 86196 Anesthesia for lower Colin Shirley MD 04/17/2018 intestinal endoscopic procedures, endoscope introduced distal to duodenum; not otherwise specified NOTE: The code number assigned matches the documented diagnosis and / or procedure in the patient's chart. However, the narrative phrase printed from the coding software may appear abbreviated, or result in slightly different terminology. Coded By: Sary Little Date Saved: 05/01/2018 08:02 am [facility] Coding Summary. CODING DATE: 018 FINAL [facility] STATUS: Home (Routine DC) PAYOR: Medicaid EA DESCRIPTION 0390 LEVEL I PATHOLOGY 0149 SCREENING COLORECTAL SERVICES 0380 ANESTHESIA ADMIT DX: REASON FOR VISIT DX: K62.5 Hemorrhage of anus and rectum FINAL DX: PRINCIPAL: K62.5 Hemorrhage of anus and rectum SECONDARY: K62.3 Rectal prolapse K62.89 Other specified diseases of anus and rectum K59.00 Constipation, unspecified F99 Mental disorder, not otherwise specified PYMT PROC [facility] STAT DESCRIPTION DOCTOR NAME DATE 16601 0149 Colonoscopy, flexible; Colin Shirley MD 04/17/2018 with biopsy, single or multiple 74 Discontinued [facility] ([facility]) Procedure After Administration of Anesthe 54463 Anesthesia for lower Colin Shirley MD 04/17/2018 [...] Date Saved: 04/23/2018 11:46 am [facility] Progress Note-Physicianon Progress Note-Physician Patient: RJ [...] Cardiovascular: Regular rhythm. Neurologic: Alert, Oriented. Plan [place] [employer] Anesthesiologists (ASA) physical status classification: Class II. Anesthetic Preoperative Plan Anesthesia: General. . Anesthetic plan, risks, benefits, and alternatives discussed with the patient and/or family. Communication: face to face with (patient 5 minutes, Patient educated on smoking cesstation). Normal [facility] Comment on above: Result Comment: Elec tronically Signed By: Quincy Ojeda Jr, DO\.karen\Date and Time Signed: 04/28/18 08:15 EDT Main OR Intraoperative Recor don 04-20-2018 Main OR Intraoperative Record IntraOp Document Type FT Summary Primary Physician: Colin Shirley MD Finalized Date/Time: 04/20/18 09:38:35 Pt. Name: RJ COLBERT D.O.B./Sex: 2000 Male Med Rec #: [id number] Physician: Colin Shirley MD Financial #: [id number] Pt. Type: O Room/Bed: / Admit/Disch: 04/17/18 [...] CST, Tori Role Performed Surgeon - Primary Wood Drilling Machine Operator - Primary Scrub - Primary Time In [...] Scrub - Other Scrub - Other Anesthesiologist Electronic Field Service Engineer Time In 04/17/18 13:14:00 04/17/18 13:14:00 04/17/18 [...] Festus DEVLIN, Oliver Krishna CST, Stas Valle Roller Helper, Jelani Bess Kirstyn K Time Out Complete [...] and tissue Entry 1 Skin Integrity Intact, [place], Warm, and Skin Abnormality No Dry Outcomes [...] RN Patient Status Stable Skin. Condition Intact, [place], Warm, and Dry Airway Maintenance Oxygen in Use? No Airway Device N/A Outcomes Met? Yes Last Modified By: Ashlee Rene RN 04/17/18 07:23:58 Post-Care Text: The patient is free from signs and symptoms of injury related to transfer/transport General Comments: REPORT GIVEN TO THERAPY TECHNICIAN/ AW sewing demonstrator Administration FT Pre-Care Text: Verifies allergies, administers prescribed medications and solutions, administers prescribed antibiotic therapy and immunizing agents as ordered, evaluates response to medications Administers prescribed medications and solutions Entry 1 Expiration Date Yes Outcomes Met? Yes Verified Last Modified By: Ashlee Rene RN 04/17/18 07:24:05 Post-Care Text: The patient received appropriate medication(s) safely administered during the perioperative period For [facility] please see scanned medication reconcilliation form [...] Addie Oreilly CST 04/20/18 09:38 Normal [facility] History and Physicalon 04-17 History and Physical Date: 03/10/2018 2:15 PMPatient Name: Rj Lepe #: [id number]: MaleDOB (age): 2000 (17)Provider: Colin Shirley [facility] Complaint: Change in Bowel habits Blood in StoolHistory of Present Illness:17 years old -[place] male with multiple psychiatric problems, lives in a halfway, referred to me to be evaluatedfor rectal [...] stool incontinence, stomachPrinted on 04/10/2018 Rj Colbert, 41021, 2000 Page 1 of 4Printed on 04/10/2018 Rj Colbert, 75083, 1998cramps, straining. Denies abdominal pain, abdominal swelling, [...] up blood.Vital Signs:BP(mmHg)Pulse(ppm )Rhythm Weight (lbs/oz) Resp/min Hjhr073/68 82 Regular 191 / 12 98.3 (F)Physical [...] hemorrhageConstipationP brian: Colonoscopy will be performed at [facility] .Printed on 04/10/2018 Rj Colbert 66425, 2000 Page 2 of 4Printed on 04/10/2018 Rj Colbert, 69414, 2000Risk & Medical Necessity: Diagnosis and management options are Extensive. The amount of data reviewedand/or ordered is Moderate. The level of risk is Moderate.Colin Shirley MD Rj Colbert, 93298, 2000 Page 3 of 4Printed on 04/10/2018 Rj Colbert, 65060, 1998Printed on 04/10/2018 Rj Colbert, 80519, 2000 Page 4 of 4Printed on 04/10/2018 Rj Colbert, 48877, 1998no change Normal [facility] Comment on above: Result Comment: Elec tronically Signed By: Casper GAUTAM, Colin\.br\Date and Time Signed: 04/17/18 13:15 EDT Inpatient Patient Summaryon 04-17-2018 Inpatient Patient [facility] Dis[facility] InstructionsPERSON INFORMATION Name: RJ COLBERT PHYSICIANS Admitting Physician: Ronnell Shirley MDttending Physician: Colin Shirley MD PCP: Murphy WEISS MD Diagnosis: Rectal prolapse Comment: PATIENT EDUCATION INFORMATIONInstructions :Medication Leaflets:Follow up:With: Address: When: [facility], [address] [place] [address] Business (1) Within 1 to 2 weeks MEDICATION LISTComment: Normal [facility] Main OR PACU I Recordon 03-28 Main OR PACU I Record PACU Phase I Document Type FT Summary Primary Physician: Colin Shirley MD Finalized Date/Time: 04/17/18 14:14:33 Pt. Name: RJ COLBERT /Sex: 2000 Male Med Rec #: [id number] Physician: Colin Shirley MD Financial #: [id number] Pt. Type: O Room/Bed: / Admit/Disch: 04/17/18 [...] Essie Guzman RN 04/17/18 14:14 Normal [facility] Main OR Preoperative Recordo n 04-17-2018 Main OR Preoperative Record Holding Area Document Type FT Summary Primary Physician: Colin Shirley MD Finalized Date/Time: 04/17/18 09:56:12 Pt. Name: RJ COLBERT /Sex: 2000 Male Med Rec #: [id number] Physician: Colin Shirley MD Financial #: [id number] Pt. Type: O Room/Bed: / Admit/Disch: 04/17/18 [...] Viki James RN 04/17/18 09:56 [facility] Patient Education - Texton 0 04-17-2018 Patient Education - Text [facility] Coding Summary.on 04-02-2018 Coding Summary. CODING DATE: 018 FINAL [facility] STATUS: Home (Routine [place]) PAYOR: Medicaid EAPG DESCRIPTION 0390 LEVEL I [...] PROC EAPG STAT DESCRIPTION DOCTOR NAME DATE 64055 0133 Sigmoidoscopy, flexible; Colin Shirley MD 03/30/2018 with biopsy, single or multiple 74 Discontinued Out-Patient [facility] ([facility]) Procedure After Administration of Anesthe 58957 Anesthesia for lower Colin Shirley MD 03/30/2018 intestinal endoscopic procedures, endoscope introduced distal to duodenum; not otherwise specified NOTE: The code number assigned matches the documented diagnosis and / or procedure in the patient's chart. However, the narrative phrase printed from the coding software may appear abbreviated, or result in slightly different terminology. Coded By: Sary Little Date Saved: 04/02/2018 04:16 pm Normal [facility] Progress Note-Physicianon Progress Note-Physician Patient: RJ COLBERT [...] Cardiovascular: Regular rhythm. Neurologic: Alert, Oriented. Plan [place] [employer] Anesthesiologists (ASA) physical status classification: Class II. Anesthetic Preoperative Plan Anesthesia: General. . Anesthetic plan, risks, benefits, and alternatives discussed with the patient and/or family. Communication: face to face with (patient 5 minutes, Patient educated on smoking cesstation). Normal [facility] Comment on above: Result Comment: Elec tronically Signed By: Quincy Ojeda Jr, DO\.karen\Date and Time Signed: 04/01/18 07:53 EDT History and Physicalon 03-30 History and Physical Date: 03/10/2018 2:15 PMPatient Name: Rj Lepe #: [id number]: MaleDOB (age): 2000 (17)Provider: Annie Benton Complaint: Change in Bowel habits Blood in StoolHistory of Present Illness:17 years old -[place]uban male with multiple psychiatric problems, lives in a halfway, referred to me to be evaluatedfor rectal [...] stool incontinence, stomachPrinted on 03/26/2018 Rj Colbert, 03946, 2000 Page 1 of 4Printed on 03/26/2018 Rj Colbert, 47504, 1998cramps, straining. Denies abdominal pain, abdominal swelling, [...] up blood.Vital Signs:BP(mmHg)Pulse(ppm )Rhythm Weight (lbs/oz) Resp/min Pkmr320/68 82 Regular 191 / 12 98.3 (F)Physical [...] hemorrhageConstipationP brian: Colonoscopy will be performed at [facility] .Printed on 03/26/2018 Rj Colbert 88408, 2000 Page 2 of 4Printed on 03/26/2018 Brittaney Coto03, 2000Risk & Medical Necessity: Diagnosis and management options are Extensive. The amount of data reviewedand/or ordered is Moderate. The level of risk is Moderate.Colin Shirley MD Rj Colbert, 82486, 2000 Page 3 of 4Printed on 03/26/2018 Rj Colbert 40182, 1998Printed on 03/26/2018 Rj Colbert 73120, 2000 Page 4 of 4Printed on 03/26/2018 Rj Colbert, 22278, 2000No change [facility] Comment on above: Result Comment: Elec tronically Signed By: Colin Shirley MD\.br\Date and Time Signed: 03/30/18 10:52 EDT Inpatient Patient Summaryon 03-30-2018 Inpatient Patient Summary [facility] Dis[facility] InstructionsPERSON INFORMATION Name: RJ COLBERT PHYSICIANS Admitting Phys[facility] Physician: Colin Shirley MD PCP: Murphy WEISS MD Diagnosis: Internal hemorrhoids Comment: PATIENT EDUCATION INFORMATIONInstructions :Medication Leaflets:Follow up:With: Address: When: [facility], [address], [place] [phone] Business (2) Within 1 to 2 weeks MEDICATION LISTComment: [facility] Main OR Intraoperative Recor don 03-30-2018 Main OR Intraoperative Record IntraOp Document Type FT Summary Primary Physician: Colin Shirley MD Finalized Date/Time: 03/30/18 11:37:17 Pt. Name: RJ COLBERT /Sex: 2000 Male Med Rec #: [id number] Physician: Colin Shirley MD Financial #: [id number] Pt. Type: O Room/Bed: / Admit/Disch: 03/30/18 09:32:43 - Institution: Case Times FT Entry 1 Patient Times In Room 03/30/18 10:56:00 Out Room 03/30/18 11:13:00 Procedure Times Start 03/30/18 10:59:00 Stop 03/30/18 11:09:00 Anesthesia Times Start 03/30/18 10:56:00 Stop 03/30/18 11:13:00 Last Modified By: Addie Oreilly CST 03/30/18 11:14:43 General Comments: 03/30/2018 Chart opened to review and send charges Marika Pineda MARINE ENGINEER Case Attendance FT Entry 1 Entry 2 Entry 3 Case Attendee Rusty Fagan DO, Quincy Miller RN, Francy Boyd CST, Tori Role Performed Anesthesiologist of Wood Drilling Machine Operator - Primary Scrub - Primary Record Time In 03/30/18 10:56:00 03/30/18 10:56:00 03/30/18 10:56:00 Time Out 03/30/18 11:13:00 03/30/18 11:13:00 03/30/18 11:13:00 Procedure COLONOSCOPY(.) COLONOSCOPY(.) COLONOSCOPY(.) Comments Last Modified By: Paul RN, Francy Miller RN, Francy Miller RN, Francy Gregory 03/30/18 11:14:48 03/30/18 11:14:48 03/30/18 11:14:48 Entry 4 Entry 5 Case Attendee Colin Shirley MD [place], Magi Briggs Role Performed Surgeon - Primary [...] Given Participants Paul TREVINO, Casper Toussaint MD, [facility] Rol[facility] Helper, Oliver Bess MARINE ENGINEER, Tori Time Out Complete 03/30/18 10:57:00 Outcomes [...] and tissue Entry 1 Skin Integrity Intact, [place], Warm, and Skin Abnormality No Dry Outcomes [...] RN Patient Status Stable Skin. Condition Intact, [place], Warm, and Dry Airway Maintenance Oxygen in Use? No Airway Device N/A Outcomes Met? Yes Last Modified By: Francy Miller RN 03/30/18 07:37:17 Post-Care Text: The patient is free from signs and symptoms of injury related to transfer/transport General Comments: Report given to PACU,RN./TE,sewing demonstrator Administration FT Pre-Care Text: Verifies allergies, administers prescribed medications and solutions, administers prescribed antibiotic therapy and immunizing agents as ordered, evaluates response to medications Administers prescribed medications and solutions Entry 1 Expiration Date Yes Outcomes Met? Yes Verified Last Modified By: Francy Miller RN 03/30/18 07:37:26 Post-Care Text: The patient received appropriate medication(s) safely administered during the perioperative period For Adriel please see scanned medication reconcilliation form for [...] Addie Oreilly CST 03/30/18 11:37 Normal [facility] Main OR PACU I Recordon Main OR PACU I Record PACU Phase I Document Type FT Summary Primary Physician: Colin Shirley MD Finalized Date/Time: 03/30/18 11:29:28 Pt. Name: RJ COLBERT/Sex: 2000 Male Med Rec #: [id number] Physician: Colin Shirley MD Financial #: [id number] Pt. Type: O Room/Bed: / Admit/Disch: 03/30/18 [...] Essie Guzman RN 03/30/18 11:29 Normal [facility] Main OR Preoperative Recordo n 03-30-2018 Main OR Preoperative Record Holding Area Document Type FT Summary Primary Physician: Colin Shirley MD Finalized Date/Time: 03/30/18 10:16:59 Pt. Name: RJ COLBERT/Sex: 2000 Male Med Rec #: [id number] Physician: Colin Shirley MD Financial #: [id number] Pt. Type: O Room/Bed: / Admit/Disch: 03/30/18 [...] Kathleen Gómez RN 03/30/18 10:16 Normal [facility] Patient Education - Texton 0 03-30-2018 Patient Education - Text [facility] Progress Note-Physicianon Progress Note-Physician Patient: RJ [...] 10:05)SBP 122 (MAR 30 11:25) 109 (MAR 04 11:00) 127 (MAR 04 10:05)DBP 83 (MAR 04 11:25) 71 (MAR 04 11:00) 83 (MAR [...] Plan Transfer/ Discharge: Condition stable. Normal [facility] Comment on above: Result Comment: Elec tronically Signed By: Rusty Fagan DO, Quincy Gregory\.karen\Date and Time Signed: 03/30/18 11:55 EDT Vital Signs Date Time Vital Sign Value Performing Clinician Facility 04-26-2025 11:31-0400 Body height 177.8 cm Laila Gonzalez RECRUITER ACCOUNT MANAGER-RECEIVING TANK OPERATOR Work Phone: [facility] 04-26-2025 11:31-0400 Body mass index (BMI) [Ratio] 29.84 kg/m2 Laila Gonzalez RECRUITER ACCOUNT MANAGER-RECEIVING TANK OPERATOR Work Phone: [facility] 04-26-2025 11:31-0400 Body weight 94.35 kg Laila Gonzalez RECRUITER ACCOUNT MANAGER-RECEIVING TANK OPERATOR Work Phone: [facility] 03-14-2025 11:14-0400 Body height 177.8 cm Laila Gonzalez RECRUITER ACCOUNT MANAGER-RECEIVING TANK OPERATOR Work Phone: [facility] 03-14-2025 11:14-0400 Body mass index (BMI) [Ratio] 30.42 kg/m2 Laila Gonzalez RECRUITER ACCOUNT MANAGER-RECEIVING TANK OPERATOR Work Phone: [facility] 03-14-2025 11:14-0400 Body weight 96.16 kg Laila Gonzalez RECRUITER ACCOUNT MANAGER-RECEIVING TANK OPERATOR Work Phone: [facility] 01-07-2025 10:22-0400 Body height 177.8 cm Laila Gonzalez RECRUITER ACCOUNT MANAGER-RECEIVING TANK OPERATOR Work Phone: [facility] 01-07-2025 10:22-0400 Body mass index (BMI) [Ratio] 30.13 kg/m2 Laila Gonzalez RECRUITER ACCOUNT MANAGER-RECEIVING TANK OPERATOR Work Phone: [facility] 01-07-2025 10:22-0400 Body weight 95.25 kg Laila Gonzalez RECRUITER ACCOUNT MANAGER-RECEIVING TANK OPERATOR Work Phone: [facility] 07-14-2024 09:26-0400 Body height 177.8 cm Benson Weiss MD Work Phone: [facility] 07-14-2024 09:26-0400 Body mass index (BMI) [Ratio] 28.84 kg/m2 Benson Weiss MD Work Phone: [facility] 07-14-2024 09:26-0400 Body temperature 97.5 [degF] Benson Weiss MD Work Phone: [facility] 07-14-2024 09:26-0400 Body weight 91.17 kg Benson Weiss MD Work Phone: [facility] 07-14-2024 09:26-0400 Diastolic blood pressure 70 mm[Hg] Benson Weiss MD Work Phone: [facility] 07-14-2024 09:26-0400 Heart rate 88 /min Benson Wesis MD Work Phone: [facility] 07-14-2024 09:26-0400 Respiratory rate 20 /min Benson Weiss MD Work Phone: [facility] 07-14-2024 09:26-0400 SaO2% (BldA) [Mass fraction] 99 % Benson Weiss MD Work Phone: [facility] 07-14-2024 09:26-0400 Systolic blood pressure 118 mm[Hg] Benson Weiss MD Work Phone: [facility] 01-26-2024 14:24-0400 Body height 177.8 cm Reynold Kuo MD Work Phone: [facility] 01-26-2024 14:24-0400 Body mass index (BMI) [Ratio] 25.75 kg/m2 Reynold Kuo MD Work Phone: [facility] 01-26-2024 14:24-0400 Body weight 81.4 kg Reynold Kuo MD Work Phone: [facility] 03-28-2022 11:11-0400 Body height 180.3 cm Arnold Genao MD Work Phone: [facility] 03-28-2022 11:11-0400 Body weight 90.27 kg Arnold Genao MD Work Phone: [facility] 03-28-2022 11:11-0400 Diastolic blood pressure 65 mm[Hg] Arnold Genao MD Work Phone: [facility] 03-28-2022 11:11-0400 Heart rate 80 /min Arnold Genao MD Work Phone: [facility] 03-28-2022 11:11-0400 SaO2% (BldA) [Mass fraction] 100 % Arnold Genao MD Work Phone: [facility] 03-28-2022 11:11-0400 Systolic blood pressure 108 mm[Hg] Arnold Genao MD Work Phone: [facility] Encounters Encounter Date Encounter Type Care Provider Facility Start: 06-15-2025 End: 06-28-2025 Telephone encounter Benson Weiss MD Work Phone: [facility] Start: 06-09-2025 End: 2025 Clinisync Result Encounter Generic External Data Provider [facility] External Department Unsolicited Start: 06-09-2025 End: 2025 Clinisync Result Encounter Generic External Data Provider [facility] External Department Unsolicited Start: 05-19-2025 End: 05-19-2025 Telephone encounter Benson Weiss MD Work Phone: [facility] Comment on above: Med Refill Start: 05-11-2025 End: 05-11-2025 Clinisync Result Encounter Generic External Data Provider [facility] External Department Unsolicited Start: 05-11-2025 End: 05-11-2025 Clinisync Result Encounter Generic External Data Provider [facility] External Department Unsolicited Start: 05-11-2025 End: 05-11-2025 Follow-up encounter Veronica Malloy DO Work Phone: [facility] Comment on above: Surgical Pathology Proctitis Start: 05-02-2025 End: 05-02-2025 [facility] Start: 04-26-2025 End: 04-26-2025 ambulatory [facility] Phone Call Provider 1 [facility] - Pre Admit Start: 04-26-2025 End: 04-26-2025 Office outpatient visit 15 minutes Laila Gregory Gonzalez RECRUITER ACCOUNT MANAGER-RECEIVING TANK OPERATOR Work Phone: [facility] General Surgery Comment on above: Rectal bleeding (Charlee hortensia Dx); Chronic constipation; Straining during bowel movements Start: 04-26-2025 End: 04-26-2025 ambulatory [facility] Start: 04-04-2025 End: 04-04-2025 Telephone encounter Audrey Maldonado [facility] Start: 03-30-2025 End: 03-31-2025 Clinisync Result Encounter Generic External Data Provider [facility] External Department Unsolicited Start: 03-30-2025 End: 03-31-2025 Clinisync Result Encounter Generic External Data Provider [facility] External Department Unsolicited Start: 03-24-2025 End: 03-24-2025 [facility] Start: 03-17-2025 End: 03-17-2025 ambulatory BENSON WEISS [facility] Start: 03-14-2025 End: 03-14-2025 Office outpatient visit 15 minutes Laila Bermanoll RECRUITER ACCOUNT MANAGER-RECEIVING TANK OPERATOR Work Phone: [facility] Comment on above: Rectal bleeding (Charlee hortensia Dx); Chronic constipation; Straining during bowel movements Start: 03-14-2025 End: 03-14-2025 ambulatory [facility] Start: 03-01-2025 End: 03-02-2025 Clinisync [...] Unsolicited Start: 01-13-2025 ambulatory Jean Carlos Boudreaux acility:[facility] Start: 01-12-2025 End: 01-12-2025 ambulatory BENSON WEISS Not Available Start: 01-07-2025 End: 01-07-2025 Office outpatient new 30 minutes Laila Gonzalez RECRUITER ACCOUNT MANAGER-RECEIVING TANK OPERATOR Work Phone: [facility] Comment on above: Rectal bleeding (Charlee hortensia Dx); Chronic constipation; Straining during bowel movements Start: 01-07-2025 End: 01-07-2025 ambulatory LAILA GONZALEZ [facility] Start: 12-08-2024 End: 12-08-2024 Clinisync [...] Start: 01-26-2024 End: 01-26-2024 ambulatory REYNOLD KUO [facility] Start: 01-26-2024 End: 01-26-2024 Postop follow up visit related to original px Reynold Kuo MD Work Phone: [facility] Comment on above: Rectal prolapse (Charlee hortensia Dx) Start: 01-10-2024 End: 01-10-2024 Evaluation and management of inpatient JOHN DEL ROSARIO [facility] Start: 01-09-2024 End: 01-10-2024 Evaluation and management of inpatient BENSON WEISS [facility] Start: 03-26-[address] DOCTOR NEGRON Facility [...] y Dx) Start: 04-17-2018 End: 04-18-2018 Ambulatory [facility] Facility:[facility] Start: 03-30-2018 End: 03-31-2018 [facility] Facility:[facility] Procedures Date Procedure Procedure Detail Performing Clinician Start: 06-09-2025 ALL CBC WITH AUTO DIFF Generic External Data Provider Start: 05-11-2025 ALL CBC WITH AUTO DIFF [...] AUTO DIFF Generic External Data Provider Start: 11-18-2024 ALL CBC WITH AUTO DIFF Generic External Data Provider Start: 08-18-2024 ALL CBC WITH AUTO DIFF Generic External Data Provider Start: 07-23-2024 ALL CBC WITH AUTO DIFF Generic External Data Provider Plan of Treatment Date Care Activity Detail Author Start: 08-05-2029 DTaP,Tdap and Td Vaccines (8 - Td or Tdap) DTaP,Tdap and Td Vaccines (8 - Td or Tdap) [facility] Start: 05-02-2026 Adult BMI Screening Adult BMI Screen ing [facility] Start: 05-02-2026 Tobacco Screening Tobacco Screening [facility] Start: 04-26-2026 Adult BMI Screening Adult BMI Screen ing [facility] Start: 04-26-2026 Tobacco Screening Tobacco Screening [facility] Start: 03-24-2026 Adult BMI Screening Adult BMI Screen ing [facility] Start: 03-24-2026 Tobacco Screening Tobacco Screening [facility] Start: 03-14-2026 Adult BMI Screening Adult BMI Screen ing [facility] Start: 03-14-2026 Tobacco Screening Tobacco Screening [facility] Start: 01-12-2026 Medicare Annual Well ness (AWV) Medicare Annual Wellness (AWV) [facility] Start: 01-07-2026 Adult BMI Screening Adult BMI Screen ing [facility] Start: 01-07-2026 Tobacco Screening Tobacco Screening [facility] Start: 07-15-2025 End: 07-15-2025 Patient encounter procedure 07/15/2025 10:00 AM EDT [facility] [address] [place] [phone] Benson Weiss MD [address] [place] [address] [facility] Start: 06-27-2025 Influenza vaccination [facility] Start: 05-02-2025 End: 05-02-2025 Admission to same day surgery center 05/02/2025 7:30 AM EDT - 05/02/2025 8:00 AM EDT Surgery [facility] - Surgery [address] [place] [address] Veronica Malloy, DO [address] [place], [place] [id number] COLONOSCOPY DIAGNOSTIC / SCREENING [82658 (CPT )] [facility] Comment on above: COLONOSCOPY DIAGNOST IC / SCREENING [69820 (CPT )] Start: 05-02-2025 End: 05-02-2025 Anesthesia consultation 05/02/2025 7:30 AM EDT Anesthesia Event [facility] [address] [place] [address] Timbo Ceballos, DO [address] [facility], [place] [id number] [facility] Start: 05-02-2025 End: 05-02-2025 Colonoscopy flx dx w/collj spec when pfrmd COLONOSCOPY DIAGNOSTIC / SCREENING rectal bleeding-poor prep with first attempt 05/02/2025 7:30 AM EDT [facility] Start: 05-02-2025 Subsequent hospital visit by physician 05/02/2025 7:30 AM EDT Hospital Encounter [facility] [address] [place] [phone] Veronica Malloy, DO [address] [place], [place] [id number] [facility] Start: 04-26-2025 End: 04-26-2025 ambulatory 04/26/2025 4:20 PM EDT Support Visit [facility] - Pre Admit [address] [place] [address] [facility] Pre Admit Start: 04-26-2025 End: 04-26-2025 Patient encounter procedure 04/26/2025 11:30 AM EDT Office Visit [facility] General Surgery [address] [place] [address] Laila Gonzalez, RECRUITER ACCOUNT MANAGER-RECEIVING TANK OPERATOR [address] [place], [place] [id number] [facility] Surgery Start: 03-24-2025 End: 03-24-2025 Admission to same day surgery center 03/24/2025 9:00 AM EDT - 03/24/2025 9:30 AM EDT Surgery [facility] Surgery [address] [place] [phone] Veronica Malloy, DO [address] [place], [place] [id number] COLONOSCOPY DIAGNOSTIC / SCREENING [98623 (CPT )] [facility] Comment on above: COLONOSCOPY DIAGNOST IC / SCREENING [16994 (CPT )] Start: 03-24-2025 End: 03-24-2025 Colonoscopy flx dx w/collj spec when pfrmd COLONOSCOPY DIAGNOSTIC / SCREENING rectal bleeding 03/24/2025 9:00 AM EDT [facility] Start: 03-24-2025 Subsequent hospital visit by physician 03/24/2025 9:00 AM EDT Hospital Encounter [facility] - Surgery [address] [place] [phone] Veronica Malloy, DO [address] [place], [place] [phone] [facility] Start: 03-17-2025 End: 03-17-2025 ambulatory 03/17/2025 2:10 PM EDT Support Visit [facility] - Pre Admit [address] [place] [address] [facility] Pre Admit Start: 01-25-2025 Adult BMI Screening Adult BMI Screen ing [facility] Start: 01-25-2025 Tobacco Screening Tobacco Screening [facility] Start: 01-12-2025 End: 01-12-2025 Patient encounter procedure 01/12/2025 9:30 AM EDT Office Visit [facility] [address] [place] [phone] Benson Weiss MD [address] [place] [phone] [facility] Start: 07-14-2024 End: 07-14-2024 Patient encounter procedure 07/14/2024 9:30 AM EDT Office Visit [facility] [address] [place] [address] Benson Weiss MD [address] [place] [address] Arrived [facility] Comment on above: Arrived Start: 06-27-2024 COVID-19 Vaccine ( season) COVID-19 Vaccine ( season) [facility] Start: 06-27-2024 Influenza vaccination [facility] Start: 06-27-2023 COVID-19 Vaccine ( season) COVID-19 Vaccine ( season) [facility] Start: 2017 Urine microalbumin profile DTAP,TDAP,TD (1 - Tdap) [facility] Start: 2016 Adult BMI Follow Up Plan Adult BMI Follow Up Plan [facility] Start: 2016 HEPATITIS C SCREENING HEPATITIS C SC REENING [facility] Start: 2016 HIV SCREENING HIV SCREENING [facility] Start: 2012 PEDS TO ADULT TRANSI TION ANNUAL ASSESSMENT PEDS TO ADULT TRANSITION ANNUAL ASSESSMENT [facility] Start: 2010 Adult depression screening assessment DEPRESSION SCREENING [facility] Start: 2010 PEDS TO ADULT TRANSI TION INITIAL DISCUSSION PEDS TO ADULT TRANSITION INITIAL DISCUSSION [facility] Start: 2009 HPV VACCINE (1 - Mal e 2-dose series) HPV VACCINE (1 - Male 2-dose series) [facility] Start: 2008 MENINGOCOCCAL B: Consider based on risk (1 of 2 - Risk Bexsero 2-dose series) MENINGOCOCCAL B: Consider based on risk (1 of 2 - Risk Bexsero 2-dose series) [facility] Start: 1998 Medicare Annual Well ness (AWV) Medicare Annual Wellness (AWV) [facility] End: 03-14-2026 Colonoscopy Colonoscopy GI Routine Rectal bleeding 1 Occurrences starting 03/14/2025 until 03/14/2026 [facility] Work Phone: Comment on above: 1 Occurrences starti ng 03/14/2025 until 03/14/2026 Immunizations Immunization Date Immunization Notes Care Provider Fa cility 12-08-2020 COVID-19, mRNA, LNP- S, PF, 30mcg/0.3mL Dose Reynold Kuo MD Work Phone: [facility] 11-17-2020 COVID-19, mRNA, LNP- S, PF, 30mcg/0.3mL Dose Reynold Kuo MD Work Phone: [facility] 08-31-2020 influenza, injectabl e, quadrivalent, preservative free Reynold Kuo MD Work Phone: [facility] 08-31-2020 influenza virus vacc ine, unspecified formulation Reynold Kuo MD Work Phone: [facility] 08-18-2019 influenza, injectabl e, quadrivalent, preservative free Reynold Kuo MD Work Phone: [facility] 08-05-2019 tetanus toxoid, redu diamond diphtheria toxoid, and acellular pertussis vaccine, adsorbed Reynold Kuo MD Work Phone: [facility] 12-02-2017 tetanus toxoid, redu diamond diphtheria toxoid, and acellular pertussis vaccine, adsorbed Reynold Kuo MD Work Phone: [facility] 08-21-2017 influenza, injectabl e, quadrivalent, preservative free Reynold Kuo MD Work Phone: [facility] 08-28-2016 influenza, injectable,quadrivalent, preservative free, pediatric Reynold Kuo MD Work Phone: [facility] 08-28-2016 meningococcal polysaccharide (groups A, C, Y and W-135) diphtheria toxoid conjugate vaccine (MCV4P) Reynold Kuo MD Work Phone: [facility] 08-16-2015 influenza, seasonal, injectable Reynold Kuo MD Work Phone: [facility] 08-07-2011 tetanus toxoid, redu diamond diphtheria toxoid, and acellular pertussis vaccine, adsorbed Reynold Kuo MD Work Phone: [facility] 08-17-2008 hepatitis A vaccine, pediatric/adolescent dosage, 2 dose schedule Reynold Kuo MD Work Phone: [facility] 02-02-2008 hepatitis A vaccine, pediatric/adolescent dosage, 2 dose schedule Reynold Kuo MD Work Phone: [facility] 02-02-2008 varicella virus vaccine Edwin Kuo MD Work Phone: [facility] 01-18-2005 diphtheria, tetanus toxoids and acellular pertussis vaccine Reynold Kuo MD Work Phone: [facility] 07-18-2004 DTaP-hepatitis B and poliovirus vaccine Reynold Kuo MD Work Phone: [facility] 07-17-2004 measles, mumps and rubella virus vaccine Reynold Kuo MD Work Phone: [facility] 02-08-2003 diphtheria, tetanus toxoids and acellular pertussis vaccine, unspecified formulation Reynold Kuo MD Work Phone: [facility] 02-08-2003 haemophilus influenz ae type b vaccine, conjugate unspecified formulation Reynold Kuo MD Work Phone: [facility] 02-08-2003 hepatitis B vaccine, pediatric or pediatric/adolescent dosage Reynold Kuo MD Work Phone: [facility] 02-08-2003 measles, mumps and rubella virus vaccine Reynold Kuo MD Work Phone: [facility] 02-08-2003 poliovirus vaccine, unspecified formulation Reynold Kuo MD Work Phone: [facility] 02-08-2003 varicella virus vaccine Edwin Kuo MD Work Phone: [facility] 1998 diphtheria, tetanus toxoids and acellular pertussis vaccine, unspecified formulation Reynold Kuo MD Work Phone: [facility] 1998 haemophilus influenz ae type b vaccine, conjugate unspecified formulation Reynold Kuo MD Work Phone: [facility] 1998 poliovirus vaccine, unspecified formulation Reynold Kuo MD Work Phone: [facility] 1998 hepatitis B vaccine, pediatric or pediatric/adolescent dosage Reynold Kuo MD Work Phone: [facility] 1998 hepatitis B vaccine, pediatric or pediatric/adolescent dosage Reynold Kuo MD Work Phone: [facility] Payers Date Payer Category Payer Self-pay 2021 [place] [id number] 2021-Present [phone] [address] [place] [address] Medicaid [id number] 2018 Medicare MEDICARE MEDICAR E A AND B [id number] 2018-Present [phone] [address] [address] [place] [address] Medicare [id number] 2018 Medicare [id number] [id number] 2018 Medicaid [id number] [id number] [id number] 1998 Unknown [id number] 2.16.840.1.256368.3.579.2.593 1998 Unknown [id number] 2.16.840.1.220066.3.579.2.593 1998 Unknown [id number] 2.16.840.1.250117.3.579.2.593 1998 Unknown [id number] 2.16.840.1.888912.3.579.2.593 1998 Unknown [id number] 2.16.840.1.234416.3.579.2.593 1998 Unknown [id number] 2.16.840.1.799136.3.579.2.593 1998 Unknown [id number] 2.16.840.1.151342.3.579.2.593 1998 Unknown [id number] 2.16.840.1.809738.3.579.2.593 1998 Unknown [id number] 2.16.840.1.208547.3.579.2.593 1998 Unknown [id number] 2.16.840.1.382161.3.579.2.593 1998 Unknown [id number] 2.16.840.1.934102.3.579.2.593 1998 Unknown [id number] 2.16.840.1.974870.3.579.2.593 1998 Unknown [id number] 2.16.840.1.614016.3.579.2.1286 1998 Unknown [id number] 2.16.840.1.862822.3.579.2.1286 1998 Unknown [id number] 2.16.840.1.980560.3.579.2.1286 1998 Unknown [id number] 2.16.840.1.808250.3.579.2.1286 1998 Unknown [id number] 2.16.840.1.278326.3.579.2.1259 1998 Unknown [id number] 2.16.840.1.119987.3.579.2.1259 1998 Unknown [id number] 2.16.840.1.404834.3.579.2.1286 1998 Unknown [id number] 2.16.840.1.391828.3.579.2.1286 1998 Unknown [id number] 2.16.840.1.955772.3.579.2.1286 1998 Unknown [id number] 2.16.840.1.095528.3.579.2.1286 1998 Unknown [id number] 2.16.840.1.394315.3.579.2.1286 1998 Unknown [id number] 2.16.840.1.641340.3.579.2.1286 1998 Unknown [id number] 2.16.840.1.028335.3.579.2.1286 1961 Medicaid [id number] 1961 Medicare [id number] Social History Date Type Detail Facility Start: 03-01-2015 End: 05-12-2023 Tobacco smoking status PAIS Never smoked tobacco [facility] Start: 03-01-2015 End: 01-26-2024 Tobacco use and exposure Smokeless tobacco non-user [facility] Start: 03-28-2022 Alcohol intake 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 Start: 11-20-2020 End: 07-14-2024 History of Social function [facility] Start: 11-20-2020 End: 07-14-2024 Tobacco use panel [facility] Start: 01-26-2024 End: 05-04-2025 Alcohol intake Lifetime non-drinker (finding) [facility] Has the [employer], [employer], or [employer] threatened to shut off services in your home in past 12Mo No [facility] How often to you hav e a drink containing alcohol? Never [facility] How many standard drinks containing alcohol do you have on a typical day? Patient does not drink [facility] Start: 06-01-2015 Sex [facility] (finding[facility] Goals Date Patient Goal Desired Activity /State Personal health goal Comment on above: Formatting of this n ote might be different from the original. Evaluation of progress towards goal: Soren Conner, back to halfway. Personal health goal Personal health goal Clinical Notes 06-29-2021 to 06-16-2025 Telephone Encounter - Benson Weiss MD - 06/16/2025 8:03 AM EDTTelephone Encounter - Benson Weiss MD - 06/16/2025 8:03 AM EDTTelephone Encounter - Katty Samaniego - 06/15/2025 10:18 AM EDT Note Date & Type Note Facility 06-16-2025 Telephone encounter Note New referral in chart. [facility] 06-16-2025 Miscellaneous Notes New referral in chart. Rj Antunez's manager data warehouse called. She is requesting a referral to [facility] for a colonoscopy. Rj is working with Dr. Malloy but has not been successful preparing properly for the last 2 colonoscopy procedures they have done. He is having bleeding issues. documented in this encounter [facility] 06-15-2025 Telephone encounter Note Rj Antunez's manager data warehouse called. She is requesting a referral to [facility] for a colonoscopy. Rj is working with Dr. Malloy but has not been successful preparing properly for the last 2 colonoscopy procedures they have done. He is having bleeding issues. [facility] 05-19-2025 Telephone encounter Note Sent [facility] 05-19-2025 Miscellaneous Notes Sent Patient is looking for a script for proctofoam. Patient is using 2 times daily in rectum. Was originally ordered by Dr Malloy, but he states it now needs to come from [email or web address] documented in this encounter [facility] 05-19-2025 Telephone encounter Note Patient is looking for a script for proctofoam. Patient is using 2 times daily in rectum. Was originally ordered by Dr Malloy, but he states it now needs to come from PCP.clm [facility] 05-11-2025 Miscellaneous Notes ----- Message from Veronica Malloy DO sent at 05/11/2025 7:20 AM EDT ----- Please call halfway attendants and let him know that he has a acute inflammation of the extensive ulceration and he should continue the Proctofoam HC as prescribed. Thanks, Dr. Wheeler ----- Message ----- From: Lab, Background User Sent: 05/10/2025 5:28 PM EDT To: Veronica Malloy DO Spoke with patient's critical care technician Santi regarding pathology results. Santi verbally understood and questions were answered to the best of my ability. Santi would like to know what is causing this inflammation. I informed Santi I would send Dr. Malloy her question and call her back as soon as I received results. Will have Lailameet hsu RECEIVING TANK OPERATOR send another prescription of Proctofoam. Informed Santi that any refills will need to go through Dr. Weiss's office. documented in this encounter [facility] 05-11-2025 Telephone encounter Note ----- Message from Veronica Malloy DO sent at 05/11/2025 7:20 AM EDT ----- Please call halfway attendants and let him know that he has a acute inflammation of the extensive ulceration and he should continue the Proctofoam HC as prescribed. Thanks, Dr. Wheeler ----- Message ----- From: Raquel, Background User Sent: 05/10/2025 5:28 PM EDT To: Veronica Malloy DO [facility] 05-11-2025 Telephone encounter Note Spoke with patient's critical care technician Santi regarding pathology results. Santi verbally understood and questions were answered to the best of my ability. Santi would like to know what is causing this inflammation. I informed Santi I would send Dr. Malloy her question and call her back as soon as I received results. Will have Laila hsu RECEIVING TANK OPERATOR send another prescription of Proctofoam. Informed Santi that any refills will need to go through Dr. Weiss's office. [facility] 04-26-2025 History of Present illness Narrative Images from the original note were not included. Chief Complaint: Rectal bleeding History of Present Illness Rj Colbert is a 24 y.o. male who presents to the office today for rectal bleeding. He lives in a halfway and staff member is present with him. [...] Medical History: Diagnosis Date Anxiety Bipolar disorder ([facility]) Cognitive impairment Panic disorder Schizoaffective disorder ([facility]) Schizophrenia ([facility]) Past Surgical History: Procedure Laterality Date ABDOMINAL SURGERY COLONOSCOPY DIAGNOSTIC / SCREENING N/A 03/24/2025 Performed by Veronica Malloy DO at [facility] RECTOSIGMOIDECTOMY PERINEAL N/A 01/09/2024 Performed by Pushpa [...] before bedtime., Disp: , Rfl: peg 3350-sod sulf,ruka-khk-wee 178.7-7.3-0.5 gram recon soln, Take 1 kit [...] patient/family/caregiver Referring and communicating with other health critical care nurse practitioner Rectal bleeding [K62.5] LAILA GONZALEZ, RECRUITER ACCOUNT MANAGER-RECEIVING TANK OPERATOR [facility] [place] This note was created with the assistance of a speech recognition program. While intending to generate a timely document that accurately reflects the content of the visit, no guarantee can be provided that every grammatical or spelling mistake has been or will be identified or corrected. Thank you for your understanding. YAN Grigsby 04/26/25 1202 documented in this encounter [facility] 04-26-2025 Nurse Note Preoperative Education Checklist- General Surgery date: 05/02/25 Surgery time: 730a Arrival time: 610a 1. Bring a photo ID and your insurance card with you the day of surgery. You will check in at the main lobby of the [facility]- registration desk is straight ahead as soon as you walk in. Tell them you are here for surgery. 2. If you have a Living Will/Durable Power of Bookkeeping Machine Operator for Health Care that is not on [...] after you have bathed. 5. NO nail kuwaiti/acrylic on at least one finger. If you are having a hand, wrist or foot surgery then all nail kuwaiti and artificial/acrylic nails must be removed from [...] please call the Preadmission Testing office at [phone], Mon.-Fri. 7 a.m.-3 p.m. Leave a voicemail [...] prescribed, DO NOT take morning of procedure [facility] 04-26-2025 Miscellaneous Notes Preoperative Education Checklist- General Surgery date: 05/02/25 Surgery time: 730a Arrival time: 610a 1. Bring a photo ID and your insurance card with you the day of surgery. You will check in at the main lobby of the [facility]- registration desk is straight ahead as soon as you walk in. Tell them you are here for surgery. 2. If you have a Living Will/Durable Power of Bookkeeping Machine Operator for Health Care that is not on [...] after you have bathed. 5. NO nail kuwaiti/acrylic on at least one finger. If you are having a hand, wrist or foot surgery then all nail kuwaiti and artificial/acrylic nails must be removed from [...] please call the Preadmission Testing office at [phone], Mon.-Fri. 7 a.m.-3 p.m. Leave a voicemail [...] morning of procedure documented in this encounter [facility] 04-04-2025 Miscellaneous Notes ----- Message from Veronica Malloy DO sent at 04/04/2025 8:14 AM EDT ----- Please let patient know that all biopsies were negative. Thanks, Dr. Wheeler ----- Message ----- From: Lab, Background User Sent: 04/02/2025 1:09 PM EDT To: Veronica Malloy DO Spoke with patient's critical care technician Santi regarding pathology results. Santi verbally understood with no further questions. documented in this encounter [facility] 04-04-2025 Telephone encounter Note ----- Message from Veronica Malloy DO sent at 04/04/2025 8:14 AM EDT ----- Please let patient know that all biopsies were negative. Thanks, Dr. Wheeler ----- Message ----- From: Lab, Background User Sent: 04/02/2025 1:09 PM EDT To: Veronica Malloy DO [facility] 04-04-2025 Telephone encounter Note Spoke with patient's critical care technician Santi regarding pathology results. Santi verbally understood with no further questions. [facility] [email or web address] 03-14-2025 History of Present illness Narrative Images from the original note were not included. Chief Complaint: Rectal bleeding History of Present Illness Rj Colbert is a 24 y.o. male who presents to the office today for rectal bleeding. He lives in a halfway and staff member is present with him. [...] before bedtime., Disp: , Rfl: peg 3350-sod sulf,xlvm-rmn-lhi 178.7-7.3-0.5 gram recon soln, Take 1 kit [...] patient/family/caregiver Referring and communicating with other health critical care nurse practitioner Rectal bleeding [K62.5] YAN GRIGSBY [facility] [place] This note was created with the assistance of a speech recognition program. While intending to generate a timely document that accurately reflects the content of the visit, no guarantee can be provided that every grammatical or spelling mistake has been or will be identified or corrected. Thank you for your understanding. YAN Grigsby 03/14/25 1158 documented in this encounter [facility] 01-07-2025 History of Present illness Narrative Images from the original note were not included. Chief Complaint: Rectal bleeding History of Present Illness Rj Colbert is a 24 y.o. male who presents to the office today for rectal bleeding. He lives in a halfway and staff member is present with him. [...] Objective Physical Exam Exam conducted with a humidifier operator present. Constitutional: General: He is not in [...] patient/family/caregiver Referring and communicating with other health critical care nurse practitioner Rectal bleeding [K62.5] YAN GRIGSBY [facility] [place] This note was created with the assistance of a speech recognition program. While intending to generate a timely document that accurately reflects the content of the visit, no guarantee can be provided that every grammatical or spelling mistake has been or will be identified or corrected. Thank you for your understanding. YAN Grigsby 01/07/25 1105 documented in this encounter [facility] 01-07-2025 Miscellaneous Notes Addended by: LAILA GONZALEZ on: 01/07/2025 11:05 AM Modules accepted: Orders documented in this encounter [facility] 01-07-2025 Note Addended by: LAILA GONZALEZ on: 01/07/2025 11:05 AM Modules accepted: Orders [facility] 07-14-2024 History of Present illness Narrative Associated [...] schizophrenia. History of MR and lives in halfway, accompanied by caregiver. Patient doing well today. [...] medication and continue. documented in this encounter [facility] 01-26-2024 History of Present illness Narrative Images from the original note were not included. [facility] [address] [id number] Patient: Rj Colbert Date of : 2000 Encounter Date: 01/26/2024 History of Present Illness: The patient is 23 y.o. male and presents for postoperative follow-up s/p repair of rectal prolapse. Patient presented with incarcerated prolapse. He underwent Altemeier procedure. Patient now follows up. Patient is accompanied by bone worker. He is doing well. He denies any [...] Reynold Kuo MD documented in this encounter [facility] 03-28-2022 Miscellaneous Notes Spoke with the pharmacist and she states that she does not provide food items. She will speak with the nurse at the halfway. Pharmacy, [facility], [facility], phone , any pharmacist to clarify about carbonate? [facility] is halfway able to order as food item? Please call to discuss. documented in this encounter [facility] 03-28-2022 Miscellaneous Notes Opened in error documented in this encounter [facility] 03-28-2022 Miscellaneous Notes Addended by: ARNOLD GENAO on: 03/28/2022 03:11 PM Modules accepted: Orders Addended by: CHARLEY MCCLELLAND on: 03/28/2022 02:47 PM Modules accepted: Orders documented in this encounter [facility] 03-28-2022 Note HNO ID: [id number] Author: Arnold Genao MD Service: ? Author Type: Physician Type: Progress Notes Filed: 03/28/2022 11:58 AM Note Text: COLORECTAL SURGERY March 28, 2022 Rj Colbert 21 year old Chief Complaint: hematochezia History of Present Illness: Rj Colbert is a 21 year old male presents to the office for evaluation of hematochezia. Last seen in the office on 11/16/21 with Cristal Nava ETHICS MANAGER for follow up visit after he underwent [...] exam Anorectal: External exam reveals: see below Grocery Worker present: yes Assessment Assessment and Plan: Rj Colbert is a 21 year old male with straining and occasional rectal bleeding. Today, we talked about adding a magnesium supplement CALM to his regimen to decrease straining. I am of the opinion that more surgery is not the best option at this time. Arnold Genao MD Colorectal Surgery [facility] 03-28-2022 Nurse Note Calm education given for constipation. What is the reason for your visit today? Established patient presents for hematochezia. Who is your referring physician? Are you having poor oral intake? NO Have you had unintentional weight loss of 15 lbs/7 Kg in the last 3-6 months? NO Bowels: regular Wound: None Temperature: No Drains: No documented in this encounter [facility] 03-28-2022 History of Present illness Narrative COLORECTAL [...] of internal hemorrhoids in 2 columns on 12/22/21. PAST MEDICAL HISTORY Diagnosis Date Attention deficit [...] exam Anorectal: External exam reveals: see below Grocery Worker present: yes Assessment Assessment and Plan: Rj Colbert is a 21 year old male with straining and occasional rectal bleeding. Today, we talked about adding a magnesium supplement CALM to his regimen to decrease straining. I am of the opinion that more surgery is not the best option at this time. Arnold Genao MD Colorectal Surgery documented in this encounter [facility] 11-16-2021 Note HNO ID: [id number] Author: Cristal Nava APRN.RECEIVING TANK OPERATOR Service: ? Author Type: Nurse Practitioner [...] results with patient and POA. Cristal Nava APRN.RECEIVING TANK OPERATOR Colorectal Surgery [facility] 10-17-2021 Note HNO ID: [id number] Author: Hunter Massey APRN.SAMAN Service: Anesthesiology Author Type: Nurse Technology Recruiter Type: Anesthesia Procedure Notes Filed: 10/17/2021 8:55 AM Note Text: ANESTHESIOLOGY PROCEDURE NOTE Airway General Information Procedure Start Time/Medication Administration: 10/17/2021 8:49 AM Patient location during procedure: OR Timeout Performed Pre-procedure: timeout performed Consent Obtained: Yes Patient identity confirmed: arm band, care customer care team coach and patient Staffing Anesthesiologist: Michael Martínez MD DIRECTOR OF ORTHOPEDICS: Hunter Massey APRN.DIRECTOR OF ORTHOPEDICS Performed by: SAMAN Indications and Patient Condition [...] October 17, 2021 TIME: 8:54 AM CSN: [id number] [facility] 08-31-2021 Note HNO ID: [id number] Author: Arnold Genao MD Service: ? Author [...] Anorectal: External exam reveals : see below Grocery Worker present: yes Assessment Assessment and Plan: Rj Colbert is a 21 year old male who is doing relatively well after his recent rubber band ligation. He still has some rectal bleeding and it is difficult to assess the exact amount. If the bleeding persists we will consider internal hemorrhoidectomy. Arnold Genao MD Colorectal Surgery [facility] 07-12-2021 Note HNO ID: [id number] Author: Shanthi Chapman APRN.DIRECTOR OF ORTHOPEDICS Service: Anesthesiology Author Type: Nurse Technology Recruiter Type: Anesthesia Procedure Notes Filed: 07/12/2021 10:54 AM Note Text: ANESTHESIOLOGY PROCEDURE NOTE Airway General Information Procedure Start Time/Medication Administration: 07/12/2021 10:48 AM Patient location during procedure: OR Patient identity confirmed: arm band, care customer care team coach and patient Staffing DIRECTOR OF ORTHOPEDICS: Shanthi Chapman APRN.DIRECTOR OF ORTHOPEDICS Performed by: DIRECTOR OF ORTHOPEDICS Indications and Patient Condition Preoxygenated: yes Patient [...] no Airway not difficult SIGNATURE: Shanthi Chapman APRN.DIRECTOR OF ORTHOPEDICS PATIENT NAME: Rj Colbert DATE: July 12, 2021 TIME: 10:53 AM CSN: [id number] [facility] 06-29-2021 Note HNO ID: [id number] Author: Arnold Genao MD Service: ? 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 They relate that he is having around [...] (222 lb 4.8 oz) BMI 31.90 kg/m? Grocery Worker present: Yes Rj Colbert is a 21 year old male presents with complaint of rectal bleeding with prolapsing Grade 3 internal hemorrhoids on exam. Our plan is to perform an EUA and rubber band ligation of internal hemorrhoids at the [facility]. Medical Decision Making: Arnold Genao MD Colorectal Surgery [facility] Evaluation note Diagnosis Hematochezia- Primary Blood in stool [facility] Seasonal allergic rhinitis due to pollen- Primary Chronic constipation Unspecified constipation Chronic schizophrenia (CMS/HCC) Unspecified schizophrenia, chronic condition documented in this encounter [facility]* Diagnosis Rectal prolapse- Primary [...] rectum and anus [facility] Diagnosis Chronic constipation- Primary [...] and anus documented [facility]* Diagnosis Chronic constipation- Primary Unspecified constipation [...] disabilities Mild intellectual disabilities Personal care impairment RP (rectal prolapse)- Primary Rectal prolapse Chronic constipation Unspecified constipation Rectal inflammation Other specified disorder of rectum and anus Developmental delay Unspecified delay in development documented in this encounter [facility] HealthcareInstructionsNot on filedocumented in this encounterProSt. [facility] SystemInstructions* Attachments The following attachments cannot be sent through Care Everywhere. * Constipation in adults (Burmese) documented in this encounterProMedia[facility] SystemInstructionsNot on file documented in this encounterProSt. [facility] SystemInstructionsNot on file documented in this encounterProSt. [facility] SystemInstructionsNot on file documented in this encounterProSt. 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 Expl anation Advance Directive(s) 07/09/2021 9:04 AM [...] section and content) DATE CREATED AUTHOR 05/01/2018 [facility] DATE CREATED AUTHOR AUTHOR'S ORGANIZ ATION 10/31/2021 [facility] DATE CREATED AUTHOR AUTHOR'S ORGANIZ ATION 03/29/2022 [facility] DATE CREATED AUTHOR AUTHOR'S ORGANIZ ATION 04/04/2023 [facility] DATE CREATED AUTHOR AUTHOR'S ORGANIZ ATION 01/27/2024 [facility] DATE CREATED AUTHOR AUTHOR'S ORGANIZ ATION 01/14/2025 [facility] DATE CREATED AUTHOR AUTHOR'S ORGANIZ ATION 01/15/2025 [facility] DATE CREATED AUTHOR AUTHOR'S ORGANIZ ATION 04/28/2025 [facility] DATE CREATED AUTHOR AUTHOR'S ORGANIZ ATION 05/14/2025 [facility] Source Comments (unrecognize d section and content) In the event this informatio n is protected by the Federal Confidentiality of Alcohol and Drug Abuse Patient Records regulations: The Federal rules restrict any use of the information to criminally investigate or prosecute any alcohol or drug abuse patient.[facility] the event this information is protected by the Federal Confidentiality of Alcohol and Drug Abuse Patient Records regulations: The Federal rules restrict any use of the information to criminally investigate or prosecute any alcohol or drug abuse patient.[facility] Center[facility] the event this information is protected by the Federal Confidentiality of Alcohol and Drug Abuse Patient Records regulations: The Federal rules restrict any use of the information to criminally investigate or prosecute any alcohol or drug abuse patient.[facility] Reason for Visit (unrecogniz ed [...] Diagnoses Rectal bleeding History of hemorrhoids Procedures DC OFFICE OUTPATIENT VISIT 60-74 MINS HIGH MDM [id number] (SNOMED CT) - AMB REFERRAL TO GENERAL SURGERY Benson Weiss MD [address] [place] [address] Phone: tel: fax: Megan Ahn MD [address] [place] [address] Phone: tel: fax: Referral ID Status Reason Start Date Expiration Date Visits Re quested Visits Authorized [id number] Closed 12/23/2024 06/21/2025 1 1 Reason Comments Follow-up PATIENT WAS SEEN ON 01/07/25 - MERY SAID TO FOLLOW UP IN 2 MONTHS - SYMPTOMS ARE ESCALUATING - RECTAL BLEEDING, ETC - NEEDS COLONOSCOPY Reason Comments Follow-up H & P update repeat colonoscopy on 05/02/[address] Malloy - CAREGIVER - SANTI Reason Onset Date Comments Med Refill 05/19/2025 Care Teams (unrecognized sec tion and content) Literary Agent Relationship Specialty Start Date End Date Benson Weiss MD [address] [place] [phone] PCP - General Family Medicine 01/07/24 Literary Agent Relationship Specialty Start Date End Date Benson Weiss MD [address] [place] [phone] PCP - General Family Medicine 01/07/24 Literary Agent Relationship Specialty Start Date End Date Benson Weiss MD [address] [place] [address] PCP - General Family Medicine 01/07/24 Literary Agent Relationship Specialty Start Date End Date Benson Weiss MD [address] [place] [phone] PCP - General Family Medicine 01/07/24 Literary Agent Relationship Specialty Start Date End Date Benson Weiss MD [address] [place] [phone] PCP - General Family Medicine 01/07/24 Literary Agent Relationship Specialty Start Date End Date Benson Weiss MD [address] [place] [phone] PCP - General Family Medicine 01/07/24 Benson Weiss MD [address] [place] [phone] PCP - ACO Reach 12/03/24 Literary Agent Relationship Specialty Start Date End Date Benson Weiss MD [address] [place], [place] [phone] PCP - General Family Medicine 01/08/24 Literary Agent Relationship Specialty Start Date End Date Benson Weiss MD PCP - General Family Medicine 01/08/24 Literary Agent Relationship Specialty Start Date End Date Benson Weiss MD [address] [place] [phone] PCP - General Family Medicine 01/07/24 Benson Weiss MD [address] [place] [phone] PCP - ACO Reach 12/03/24 Literary Agent Relationship Specialty Start Date End Date Benson Weiss MD [address] [place] [phone] PCP - General Family Medicine 03/14/25 Literary Agent Relationship Specialty Start Date End Date Benson Weiss MD [address] [place] [phone] PCP - General Family Medicine 03/14/25 Literary Agent Relationship Specialty Start Date End Date Benson Weiss MD PCP - General Family Medicine 03/14/25 Literary Agent Relationship Specialty Start Date End Date Benson Weiss MD PCP - General Family Medicine 03/14/25 Literary Agent Relationship Specialty Start Date End Date Benson Weiss MD PCP - General Family Medicine 03/14/25 Literary Agent Relationship Specialty Start Date End Date Benson Weiss MD PCP - General Family Medicine 03/14/25 Literary Agent Relationship Specialty Start Date End Date Benson Weiss MD [address] [place] [phone] PCP - General Family Medicine 01/07/24 Benson Weiss MD [address] [place] [phone] PCP - ACO Reach 12/03/24 Literary Agent Relationship Specialty Start Date End Date Benson Weiss MD [address] [place] [phone] PCP - General Family Medicine 01/07/24 Benson Weiss MD [address] [place] [phone] PCP - ACO Reach 12/03/24 Literary Agent Relationship Specialty Start Date End Date Benson Weiss MD [address] [place] [phone] PCP - General Family Medicine 01/07/24 Benson Weiss MD [address] [place] [phone] PCP - ACO Reach 12/03/24 FOR RECORDS PERTAINING TO PATIENTS [...] BE BASED ON THE PRIMARY CLINICAL RECORDS. [employer] provides no warranty or guarantee of the accuracy or completeness of information in this document.
[2025-07-09 09:21] LABS: Hematocrit 40.7 % (42.0-54.0); Hemoglobin 12.1 g/dL (14.0-18.0); Immature Granulocytes Abs Auto 0.01 10^3/uL (0.00-0.03); Immature Granulocytes Pct Auto 0.2 % (0.0-0.5); Lymphocytes Absolute Auto 1.7 10^3/uL (1.2-3.8); Mean Corpuscular HGB Conc 29.7 g/dL (29.9-35.2); Mean Corpuscular Hemoglobin 21.6 pg (25.9-34.0); Mean Corpuscular Volume 72.5 fL (80.0-94.0); Platelet Count 254 10^3/uL (150-450); Red Blood Count 5.61 10^6/uL (4.70-6.10); White Blood Count 4.9 10^3/uL (4.0-11.0)
== END 2025-07-09 08:52 | disposition home or self-care (01) ==
PROVIDERS: PCP Family Medicine
DX: Z79.899 Other long term (current) drug therapy (principal)
CPT/HCPCS: 36415; 85025

== ENCOUNTER 2025-08-05 15:53 | Outpatient (OUT) | payer MEDICARE, MEDICAID, SELFPAY ==
--- OUTSIDE RECORDS SUMMARY | 2025-08-05 16:08 | XMS_ITS | CCD ---
Author Organization [facility] Care Team Providers Care Superintendent Construction Name Role Phone Salam, Shaw Unavailable Unavailable Salam, Shaw Unavailable Unavailable Salam, Shaw Unavailable Unavailable NADERERBENSON~[phone] UNKNOWN Unavailable Unavailable Salam, Shaw Unavailable Unavailable Salam, Shaw Unavailable Unavailable Salam, Shaw Unavailable Unavailable NADERERBENSON~[id number] UNKNOWN Unavailable Unavailable Unavailable Primary Care Provider Unavailabl e MISC, DOCTOR Attending Unavailable MISC, DOCTOR Admitting [...] Care Unavailable MISC, DOCTOR Attending Unavailable MISC, DR VALDOVINOS Admitting Unavailable MISC, DOCTOR Consulting Unavailable NADERER, [...] Unavailable MISC, DOCTOR Attending Unavailable MISC, DR DOCTOR Consulting [...] Primary Care Unavailable REYNOLD KUO Attending Unavailable BENSON WEISS Referring Unavailable ISELA, BENSON Primary Care Unavailable Isela GAUTAM, Benson Primary Care Provider Benson Weiss MD Unavailable Benson Weiss MD Primary Care Provider Benson Weiss MD Primary Care Provider BENSON WEISS Attending Unavailable BENSON WEISS Attending Unavailable Jean Carlos Hdez Attending Unavailab le Jean Carlos Hdez Admitting Unavailab le NO FAMILY, PHYSICIAN Primary Care Unavailable Benson Weiss MD Primary Care Provider Benson Weiss MD Primary Care Provider LALIA GONZALEZ Attending Unavailable BENSON WEISS Referring Unavailable BENSON WEISS Primary Care Unavailable LAILA GONZALEZ Attending Unavailable BENSON WEISS Referring Unavailable BENSON WEISS Primary Care Unavailable LAILA GONZALEZ Attending Unavailable BENSON WEISS Referring Unavailable BENSON WEISS Primary Care Unavailable BENSON WEISS Referring Unavailable ISELA, BENSON Primary Care Unavailable VERONICA GALO Admitting Unavailable VERONICA GALO Attending Unavailable VERONICA GALO Referring Unavailable BENSON WEISS Primary Care Unavailable BENSON WEISS Referring Unavailable ISELA, BENSON Primary Care Unavailable VERONICA GALO Admitting Unavailable VERONICA GALO Attending Unavailable VERONICA GALO Referring Unavailable BENSON WEISS Primary Care Unavailable NO FAMILY, PHYSICIAN Primary Care Provider Unava ilable Provider, Outside Attending Provider Unavailable Benson Weiss MD Primary Care Provider Benson Weiss MD Attending Provider KEYONA JUANA Attending Unavailable BENSON WEISS Referring Unavailable Allergies Allergy Classification Reported Allergen(s) Allergy Type Date of Onset Reaction(s) Facility (1 source) No Known Medication Allergies; Translations: [No Known Medication Allergies] Propensity to adverse reactions (disorder) [facility] Repository Medications Current Medications Medication [...] mg oral tablet (20 sources) Anticholinergic, Antihistamine Start: take 1 tablet by mouth twice daily Benztropine 2 mg tablet Active 2 MG PO Twice daily July 14, 2025 12:00am Complies with drug therapy take 1 tablet by mouth in the mo rning benztropine (Cogentin) 2 MG tablet Take 2 mg by mouth in the morning and 2 mg in the evening. Active Comment on above: Take 2 mg by mouth t wice daily. calcium polycarbophil 625 mg oral tablet (20 sources) Start: 07-14-2025 Calcium Polycarbophil 625 mg tablet Active 1250 MG PO Daily July 14, 2025 12:00am Complies with drug therapy Start: 07-04-2025 take 1 tablet by claribel th once daily Calcium Polycarbophil (Fiber-Lax) 625 mg tablet Active 625 MG PO Daily July 04, 2025 12:00am Complies with drug therapy Start: 06-12-2024 take 1 tablet by claribel th once daily polycarbophil (Fiber-Lax) 625 MG tablet Indications: Chronic constipation Take 1 tablet (625 mg) by mouth Daily 30 tablet 5 02/02/2025 Active Comment on above: Take 625 mg by mouth . clonazePAM 0.5 mg oral tablet (20 sources) Benzodiazepine Start: take 1 tablet by mouth twice daily Clonazepam 0.5 mg tablet Active 0.5 MG PO Twice daily July 14, 2025 12:00am Complies with drug therapy take 1 tablet by mouth in the mo rning clonazePAM (KlonoPIN) 0.5 MG tablet Take 0.5 [...] 100 mg oral capsule (20 sources) Start: 07-14-2025 take 1 capsule by mouth once daily Docusate Sodium 100 mg capsule Active 100 MG PO Daily July 14, 2025 12:00am Complies with drug therapy Start: 11-04-2023 take 1 capsule by mo [facility] in the morning Docusate Sodium (DSS) 100 MG capsule Indications: Chronic constipation Take 1 capsule (100 mg) by mouth in the morning. 60 capsule 5 09/28/2024 Active Comment on above: Take 100 mg by mouth twice daily. FLUoxetine 40 mg oral capsule (20 sources) Serotonin Reuptake Inhibitor Start: 07-14-2025 take 1 capsule by mouth twice daily in the morning Fluoxetine 40 mg capsule Active 40 MG PO Twice daily July 14, 2025 12:00am administer in the morning and at noon/midday Complies with drug therapy take 1 capsule by mouth in the m orning FLUoxetine (PROzac) 40 MG capsule Take 40 [...] mg oral tablet (20 sources) Typical Antipsychotic Start: take 1 tablet by mouth twice daily Haloperidol 10 mg tablet Active 10 MG PO Twice daily July 14, 2025 12:00am Complies with drug therapy take 1 tablet by mouth in the mo rning haloperidol (Haldol) 10 MG tablet Take 10 [...] / pramoxine hydrochloride 10 mg/ml topical foam (11 sources) Corticosteroid Start: 07-14-2025 Hydrocortisone-Pramoxi ne 1-1 % foam Active 1 APPLIC TOPICAL Twice daily as needed July 14, 2025 12:00am allow at least 3 hours between applications Complies with drug therapy Start: 05-19-2025 Hydrocort-Pram oxine, Perianal, 1-1 % foam Indications: Rectal inflammation Insert 1 applicator into the rectum in the morning and 1 applicator before bedtime. 10 g 11 05/19/2025 Active Start: 05-11-2025 End: 05-19-2025 Hydrocort-Pramoxine, Periana l, 1-1 % foam Insert 1 applicator into the rectum in the morning and 1 applicator in the evening. 05/11/2025 05/19/2025 Discontinued (Reorder) Start: 03-24-2025 End: 05-11-2025 hydrocortisone-pramoxine (OH OCTOFOAM-HS) rectal foam Indications: Proctitis Insert 1 [...] End: 12-21-2025 take 1 tablet by mouth once daily Loratadine (Allergy Relief (Loratadine)) 10 mg tablet Active 10 MG PO Daily July 14, 2025 12:00am Complies with drug therapy Start: 12-18-2023 End: 12-17-2024 take 1 tablet [...] bedtime . Used for constipation peg 3350-sod sulf,[id number] 178.7-7.3-0.5 gram recon soln (2 sources) Start: 04-26-2025 End: 04-27-2025 peg 3350-sod sulf,[id number] 178.7-7.3-0.5 gram recon soln Indications: Rectal bleeding [...] each 03/14/2025 03/15/2025 Active polyethylene glycol 3350 46119 mg powder for oral solution (12 sources) [...] Date Documented Da te Episodic/Chronic Administrative/social admission (8 sources) Personal care impairment; Translations: [Need for assistance with personal care] Onset: 01-12-2025 01-12-2025 Episodic Anal and rectal conditions (20 sources) Rectal prolapse; Translations: [Rectal pain] Onset: 01-09-2024 01-26-2024 Episodic Attention-deficit, conduct, and disruptive behavior disorders (17 sources) Oppositional defiant disorder; Translations: [Oppositional defiant disorder] Onset: 01-07-2024 01-07-2024 Chronic Developmental disorders (17 sources) Mild intellectual disability; Translations: [Mild intellectual disabilities] Onset: 01-07-2024 01-07-2024 Chronic Disorders usually diagnosed in infancy, childhood, or adolescence (17 sources) Tic disorder; Translations: [Tic disorder, unspecified] Onset: 01-07-2024 01-07-2024 Chronic Gastrointestinal hemorrhage (9 sources) Blood-tinged feces; Translations: [Melena] Onset: 01-07-2025 Episodic Malaise and fatigue (17 sources) Fatigue; Translations: [Other fatigue] Onset: 01-07-2024 01-07-2024 Episodic Other aftercare (4 sources) Other nursing home (current) drug therapy; Translations: [OTH CHANGE ATTENDANT CURRENT DRUG THERAPY] Onset: 02-19-2023 Episodic Other [...] 07-10-2021 07-10-2021 Episodic Other upper respiratory disease (20 sources) Allergic rhinitis due to pollen; Translations: [...] [Unspecified hemorrhoids] Onset: 10-17-2021 10-17-2021 Episodic Other gastrointestinal disorders (1 source) Other constipation; Translations: [Other constipation] Onset: 01-07-2025 Episodic Results Test Name Value Interpretation Reference Range Facility [facility] 07-26-2025 CNOV Office Visit ([facility] ) RJ COLBERT ([id number]) 2000 M Date Time Provider Department 07/26/25 10:40 AM JUANA HARPER [facility] During your visit today, we recorded the following information about you: Temperature Pulse Blood pressure Weight 97.3 degrees 78/minute 119/82 94.8 kg Height 1.803 m Juana Harper MD 07/26/2025 2:23 PM Signed COLORECTAL SURGERY July 26, 2025 Rj Heden This consult was requested by Dr. Benson Weiss and my final recommendations will be communicated to the requesting health care provider by way of the shared medical record for internal providers or letter via the [employer] Postal Service for external providers. Recording using [employer] software for draft documentation of the visit was discussed with the patient/authorized telephone services sales representative; all questions welcomed and answered. Patient/authorized telephone services sales representative agreed to proceed Chief Complaint: rectal prolapse History of Present Illness: The patient is a 25-year-old male with chronic constipation and recurrent rectal prolapse, presenting for evaluation of ongoing rectal prolapse and constipation. He is accompanied by his fiber optic assembler, who provides additional history. He reports a history of rectal prolapse, for which he underwent surgical resection approximately 2 years ago in [place] by Dr. Laila Nunez. He experienced significant improvement for about a year postoperatively, but the prolapse has since recurred. He describes a burning sensation with defecation and the passage of tissue from the rectum that protrudes externally during bowel movements, which he manually reduces. He denies fecal incontinence or urinary symptoms. Bowel movements are infrequent and require prolonged straining, often spending hours on the toilet with minimal or no stool passage. He reports that stool is only passed with the use of Smooth Move Tea, and is described as brown and formed, without diarrhea. He denies regular use of the tea due to a busy schedule. He is currently taking docusate 100 mg and Fiber-Lax 625 mg, but acknowledges inadequate water intake. He has also used Proctofoam for hemorrhoidal symptoms. He denies current tobacco use. Rectal prolapse: yes Fecal incontinence: no Frequency: n/a Severity: n/a Urinary incontinence: n/a Constipation: yes, spends hours on the toilet per caregiver and has to push and strain. Only moves his bowels with tea which he does not take every day If yes, prior meds: smooth move tea, docusate, fiber Primary GI: Dr. Galo Stool consistency: he was unable to say what the consistency is. + hematochezia. Time in bathroom: hours PMH: developmental delay, presents with his fiber optic assembler PSH: Rubber band ligation on 07/12/21 and Hemorrhoid Ablation on 10/17/21. Had a rectal prolapse surgery in [place] 2 years ago (Dr. Nunez [facility]) Current smoker: no Prior pelvic floor PT: no Prior testing: Manometry: n/a Defecography: n/a He has undergone 2 colonoscopies in the past [address] hCapin, both of which were limited by inadequate bowel preparation. There is no known family history of colorectal cancer. PAST MEDICAL HISTORY Diagnosis Date Attention deficit hyperactivity disorder MR (mental retardation) Schizophrenia (HCC) Tic disorder PAST SURGICAL HISTORY Procedure Laterality Date ABDOMINAL SURGERY HX HEMORRHOID;BAND LIGAT, SNGL/MUL 07/12/2021 Current Outpatient Medications Medication Sig Dispense Refill pramoxine-hydrocortiso ne (PROCTOFOAM HC) rectal foam 1 applicator by RECTAL route two times a day. acetaminophen (TYLENOL) 325 mg tablet Take 2 tablets by mouth every 6 hours. ibuprofen (MOTRIN) 200 mg tablet Take 2 tablets by mouth every 4 hours as needed for pain. risperiDONE (RISPERDAL) 1 mg tablet Take 1 mg by mouth three times a day. loratadine (CLARITIN) 10 mg tablet Take 10 mg by mouth. calcium polycarbophil (FIBERCON) 625 mg tablet Take 625 mg by mouth. docusate sodium (COLACE) 100 mg capsule Take 100 mg by mouth twice daily. cloZAPine (CLOZARIL) 100 mg tablet once daily. 100 mg three times daily and 200 mg one tablet daily at bedtime. polyethylene glycol 3350 (MIRALAX) 17 gram packet Take 1 Packet by mouth once daily. 30 Packet 5 benztropine (COGENTIN) 2 mg tablet Take 2 mg by mouth twice daily. clonazePAM (KLONOPIN) 1 mg tablet Take 0.5 mg by mouth two times a day as needed. FLUoxetine HCl (PROZAC) 40 mg capsule Take 40 mg by mouth once daily. haloperidol (HALDOL) 10 mg tablet Take 10 mg by mouth two times a day. Magnesium Carbonate powd 4 g daily at bedtime. Used for constipation 28 g 3 No current facility-administered medications for this visit. ALLERGIES No Known Allergies History reviewed. No pertinent family history. SOCIAL HISTORY[1] Physical Exam: BP 119/82 (BP Site: Right Arm, BP Position: Sitting) Pulse 78 Temp 36. (more content not included)... Normal [facility] 07-26-2025 [place] Telephone ([facility]) RJ COLBERT ([id number]) 2000 M Date Time Provider Department 07/26/25 CORNELIUS GREWAL JR [facility] During your visit today, we recorded the following information about you: Addie Cain RN 07/26/2025 4:36 PM Signed Patient needs office visit for constipation. Add on Aug 26 at 3:20 pm. Cornelius Grewal Jr., DO Please add for office visit. Thank you. Addie Cain RN Flor Burroughs 07/26/2025 6:28 PM Signed Added Allergies As of Date: 07/26/2025 (No Known Allergies) Date Reviewed: 07/26/2025 Reviewed by: Juana Harper MD - Fully Assessed Reason for Visit: Results [95] Prescriptions as of 07/26/2025 - pramoxine-hydrocortiso ne (PROCTOFOAM HC) rectal foam 1 applicator by RECTAL route two times a day. - Magnesium Carbonate powd 4 g daily at bedtime. Used for constipation - acetaminophen (TYLENOL) 325 mg tablet Take 2 tablets by mouth every 6 hours. - ibuprofen (MOTRIN) 200 mg tablet Take 2 tablets by mouth every 4 hours as needed for pain. - risperiDONE (RISPERDAL) 1 mg tablet Take 1 mg by mouth three times a day. - loratadine (CLARITIN) 10 mg tablet Take 10 mg by mouth. - calcium polycarbophil (FIBERCON) 625 mg tablet Take 625 mg by mouth. - docusate sodium (COLACE) 100 mg capsule Take 100 mg by mouth twice daily. - cloZAPine (CLOZARIL) 100 mg tablet once daily. 100 mg three times daily and 200 mg one tablet daily at bedtime. - polyethylene glycol 3350 (MIRALAX) 17 gram packet Take 1 Packet by mouth once daily. - benztropine (COGENTIN) 2 mg tablet Take 2 mg by mouth twice daily. - clonazePAM (KLONOPIN) 1 mg tablet Take 0.5 mg by mouth two times a day as needed. - FLUoxetine HCl (PROZAC) 40 mg capsule Take 40 mg by mouth once daily. - haloperidol (HALDOL) 10 mg tablet Take 10 mg by mouth two times a day. Problem List As Of Date 07/26/2025 Noted Resolved Developmental delay [R62.50] 07/10/2021 Schizophrenia (HCC) [F20.9] 07/10/2021 Hemorrhoids [K64.9] 10/17/2021 Encounter Status:Closed by CORNELIUS GREWAL JR. on 07/26/25 Normal [facility] Basophils Auto (Bld) [#/Vol] Ordered By: Outside Provider on 07-09-2025 Basophils (Bld) [#/Vol] 0.0 10 3/uL 0.0-0.1 [facility] Basophils/100 WBC Auto (Bld) Ordered By: Outside Provider on 07-09-2025 Basophils/100 WBC (Bld) 0.8 % 0.2-2.0 [facility] Eosinophils/100 WBC Auto (Bl d)Ordered By: Outside Provider on 07-09-2025 Eosinophils/100 WBC (Bld) 4.1 % 0.9-7.0 [facility] Erythrocyte distribution wid th Auto (RBC) [Ratio]Ordered By: Outside Provider on 07-09-2025 Erythrocyte distribution width (RBC) [Ratio] 17.1 % High 11.0-15.0 [facility] Hematocrit Auto (Bld) [Volum e fraction]Ordered By: Outside Provider on 07-09-2025 Hematocrit (Bld) [Volume fraction] 40.7 % Low 42.0-54.0 [facility] Hemoglobin [Mass/volume] in BloodOrdered By: Outside Provider on 07-09-2025 Hemoglobin (Bld) [Mass/Vol] 12.1 g/dL Low 14.0-18.0 [facility] Laboratory - Hematology and Cell countsOrdered By: Outside Provider on 07-09-2025 Immature granulocytes/100 WBC (Bld) 0.2 % 0.0-0.5 [facility] Leukocytes [#/volume] correc nikole for nucleated erythrocytes in Blood by Automated counOrdered By: Outside Provider on 07-09-2025 WBC corrected for nucl RBC Auto (Bld) [#/Vol] 4.9 10 3/uL 4.0-11.0 [facility] Lymphocytes Auto (Bld) [#/Vo l]Ordered By: Outside Provider on 07-09-2025 Lymphocytes (Bld) [#/Vol] 1.7 10 3/uL 1.2-3.8 [facility] Lymphocytes/100 WBC Auto (Bl d)Ordered By: Outside Provider on 07-09-2025 Lymphocytes/100 WBC (Bld) 34.1 % 20.5-60.0 [facility] MCH Auto (RBC) [Entitic mass ]Ordered By: Outside Provider on 07-09-2025 MCH (RBC) [Entitic mass] 21.6 pg Low 25.9-34.0 [facility] MCHC Auto (RBC) [Mass/Vol]Or dered By: Outside Provider on 07-09-2025 MCHC (RBC) [Mass/Vol] 29.7 g/dL Low 29.9-35.2 [facility] MCV Auto (RBC) [Entitic vol] Ordered By: Outside Provider on 07-09-2025 MCV (RBC) [Entitic vol] 72.5 fL Low 80.0-94.0 [facility] Monocytes Auto (Bld) [#/Vol] Ordered By: Outside Provider on 07-09-2025 Monocytes (Bld) [#/Vol] 0.6 10 3/uL 0.3-0.8 [facility] Monocytes/100 WBC Auto (Bld) Ordered By: Outside Provider on 09-13-2025 Monocytes/100 WBC (Bld) 12.6 % High 1.7-12.0 [facility] Neutrophils Auto (Bld) [#/Vo l]Ordered By: Outside Provider on 07-09-2025 Neutrophils (Bld) [#/Vol] 2.4 10 3/uL 1.4-6.5 [facility] Neutrophils/100 WBC Auto (Bl d)Ordered By: Outside Provider on 07-09-2025 Neutrophils/100 WBC (Bld) 48.2 % 43.0-75.0 [facility] No Panel InformationOrdered By: Outside Provider on 07-09-2025 Eosinophils # (Auto) 0.2 10 3/uL 0.0-0.7 [facility] Immature Granulocyte # (Auto) 0.01 10 3/uL 0.00-0.03 [facility] Platelet mean volume Auto (B ld) [Entitic vol]Ordered By: Outside Provider on 07-09-2025 Platelet mean volume (Bld) [Entitic vol] 10.4 fL 9.5-13.5 [facility] Platelets Auto (Bld) [#/Vol] Ordered By: Outside Provider on 07-09-2025 Platelets (Bld) [#/Vol] 254 10 3/uL 150-450 [facility] RBC Auto (Bld) [#/Vol]Ordere d By: Outside Provider on 07-09-2025 RBC (Bld) [#/Vol] 5.61 10 6/uL 4.70-6.10 [facility] ALL CBC WITH AUTO DIFFon BASOPHILS ABSOLUTE AUTO 0 [facility] Basophils/100 WBC (Bld) 0.8 % 0.2 - 2.0 % [facility] Eosinophils/100 WBC (Bld) 2.9 % 0.9 - 7.0 % [facility] Erythrocyte distribution width (RBC) [Ratio] 16.8 % High 11.0 - 15.0 % [facility] Hematocrit (Bld) [Volume fraction] 40.2 % Low 42.0 - 54.0 % [facility] Hemoglobin (Bld) [Mass/Vol] 11.9 g/dL Low 14.0 - 18.0 g/dL [facility] IMMATURE GRANULOCYTES ABS [facility]O [facility]ocytes/100 WBC (Bld) 0.2 % 0.0 - 0.5 % [facility] Interpretation and review of laboratory results Abnormal [facility] LYMPHOCYTES ABSOLUTE AUTO 1.6 [facility] Lymphocytes/100 WBC (Bld) 31 % 20.5 - 60.0 % [facility] MCH (RBC) [Entitic mass] 21.5 pg Low 25.9 - 34.0 pg [facility] MCHC (RBC) [Mass/Vol] 29.6 g/dL Low 29.9 - 35.2 g/dL [facility] MCV (RBC) [Entitic vol] 72.7 fL Low 80.0 - 94.0 fL [facility] MONOCYTES ABSOLUTE AUTO 0.5 [facility] Monocytes/100 WBC (Bld) 9.9 % 1.7 - 12.0 % [facility] NEUTROPHILS ABSOLUTE AUTO 2.9 [facility] Neutrophils/100 WBC (Bld) 55.2 % 43.0 - 75.0 % [facility] Platelet mean volume (Bld) [Entitic vol] 10.3 fL 9.5 - 13.5 [facility]L [facility] PLT 271 [facility] RBC 5.53 [facility] WBC 5.2 [facility] ALL CBC WITH AUTO DIFFon BASOPHILS ABSOLUTE AUTO 0 [facility] Basophils/100 WBC (Bld) 0.6 % 0.2 - 2.0 % [facility] Eosinophils/100 WBC (Bld) 2.1 % 0.9 - 7.0 % [facility] Erythrocyte distribution width (RBC) [Ratio] 17.9 % High 11.0 - 15.0 % [facility] Hematocrit (Bld) [Volume fraction] 43.6 % 42.0 - 54.0 % [facility] Hemoglobin (Bld) [Mass/Vol] 12.5 g/dL Low 14.0 - 18.0 g/dL [facility] IMMATURE GRANULOCYTES ABS AUTO 0.01 [facility] Immature granulocytes/100 WBC (Bld) 0.2 % 0.0 - 0.5 % [facility] Interpretation and review of laboratory results Abnormal [facility] LYMPHOCYTES ABSOLUTE AUTO 1.4 [facility] Lymphocytes/100 WBC (Bld) 21.7 % 20.5 - 60.0 % [facility] MCH (RBC) [Entitic mass] 21 pg Low 25.9 - 34.0 pg [facility] MCHC (RBC) [Mass/Vol] 28.7 g/dL Low 29.9 - 35.2 g/dL [facility] MCV (RBC) [Entitic vol] 73.3 fL Low 80.0 - 94.0 fL [facility] MONOCYTES ABSOLUTE AUTO 0.7 [facility] Monocytes/100 WBC (Bld) 10.7 % 1.7 - 12.0 % [facility] NEUTROPHILS ABSOLUTE AUTO 4.2 [facility] Neutrophils/100 WBC (Bld) 64.7 % 43.0 - 75.0 % [facility] Platelet mean volume (Bld) [Entitic vol] 10.4 fL 9.5 - 13.5 fL [facility] EO # 0.1 [facility] PLT 295 [facility] RBC 5.95 [facility] WBC 6.5 [facility] ALL CBC WITH AUTO DIFFon BASOPHILS ABSOLUTE AUTO 0.1 [facility] Basophils/100 WBC (Bld) 1 % 0.2 - 2.0 % [facility] Eosinophils/100 WBC (Bld) 5.4 % 0.9 - 7.0 % [facility] Erythrocyte distribution width (RBC) [Ratio] 19.3 % High 11.0 - 15.0 % [facility] Hematocrit (Bld) [Volume fraction] 39.2 % Low 42.0 - 54.0 % [facility] Hemoglobin (Bld) [Mass/Vol] 11.6 g/dL Low 14.0 - 18.0 g/dL [facility] IMMATURE GRANULOCYTES ABS AUTO 0.02 [facility] Immature granulocytes/100 WBC (Bld) 0.3 % 0.0 - 0.5 % [facility] Interpretation and review of laboratory results Abnormal [facility] LYMPHOCYTES ABSOLUTE AUTO 1.6 [facility] Lymphocytes/100 WBC (Bld) 26.2 % 20.5 - 60.0 % [facility] MCH (RBC) [Entitic mass] 21.2 pg Low 25.9 - 34.0 pg [facility] MCHC (RBC) [Mass/Vol] 29.6 g/dL Low 29.9 - 35.2 g/dL [facility] MCV (RBC) [Entitic vol] 71.7 fL Low 80.0 - 94.0 fL [facility] MONOCYTES ABSOLUTE AUTO 0.7 [facility] Monocytes/100 WBC (Bld) 11.8 % 1.7 - 12.0 % [facility] NEUTROPHILS ABSOLUTE AUTO 3.5 [facility] Neutrophils/100 WBC (Bld) 55.3 % 43.0 - 75.0 % [facility] Platelet mean volume (Bld) [Entitic vol] 10.7 fL 9.5 - 13.5 fL [facility] EO # 0.3 [facility] PLT 304 [facility] RBC 5.47 [facility] WBC 6.3 [facility] ALL CBC WITH AUTO DIFFon BASOPHILS ABSOLUTE AUTO 0 [facility] Basophils/100 WBC (Bld) 0.7 % 0.2 - 2.0 % [facility] Eosinophils/100 WBC (Bld) 3.3 % 0.9 - 7.0 % [facility] Erythrocyte distribution width (RBC) [Ratio] 20.8 % High 11.0 - 15.0 % [facility] Hematocrit (Bld) [Volume fraction] 43.3 % 42.0 - 54.0 % [facility] Hemoglobin (Bld) [Mass/Vol] 12.4 g/dL Low 14.0 - 18.0 g/dL [facility] IMMATURE GRANULOCYTES ABS AUTO 0.01 [facility] Immature granulocytes/100 WBC (Bld) 0.2 % 0.0 - 0.5 % [facility] Interpretation and review of laboratory results Abnormal [facility] LYMPHOCYTES ABSOLUTE AUTO 1.6 [facility] Lymphocytes/100 WBC (Bld) 28.8 % 20.5 - 60.0 % [facility] MCH (RBC) [Entitic mass] 20.2 pg Low 25.9 - 34.0 pg [facility] MCHC (RBC) [Mass/Vol] 28.6 g/dL Low 29.9 - 35.2 g/dL [facility] [facility] MCV (RBC) [Entitic vol] 70.4 fL Low 80.0 - 94.0 fL [facility] MONOCYTES ABSOLUTE AUTO 0.5 [facility] Monocytes/100 WBC (Bld) 8.9 % 1.7 - 12.0 % [facility] NEUTROPHILS ABSOLUTE AUTO 3.1 [facility] Neutrophils/100 WBC (Bld) 58.1 % 43.0 - 75.0 % [facility] Platelet mean volume (Bld) [Entitic vol] 9.7 fL 9.5 - 13.5 fL [facility] TBH EO # 0.2 [facility] High [facility] Comment on above: 1+ HYPO 1+ OVAL TBH WBC 5.4 [facility] WITH AUTO DIFFon BASOPHILS ABSOLUTE AUTO 0.1 [facility] Basophils/100 WBC (Bld) 0.7 % 0.2 - 2.0 % [facility] Eosinophils/100 WBC (Bld) 1.9 % 0.9 - 7.0 % [facility] Erythrocyte distribution width (RBC) [Ratio] 21.2 % High 11.0 - 15.0 % [facility] Hematocrit (Bld) [Volume fraction] 42.1 % 42.0 - 54.0 % [facility] Hemoglobin (Bld) [Mass/Vol] 12 g/dL Low 14.0 - 18.0 g/dL [facility] IMMATURE GRANULOCYTES ABS AUTO 0.01 [facility] Immature granulocytes/100 WBC (Bld) 0.1 % 0.0 - 0.5 % [facility] Interpretation and review of laboratory results Abnormal [facility] LYMPHOCYTES ABSOLUTE AUTO 1.5 [facility] Lymphocytes/100 WBC (Bld) 21.4 % 20.5 - 60.0 % [facility] MCH (RBC) [Entitic mass] 19.8 pg Low 25.9 - 34.0 pg [facility] MCHC (RBC) [Mass/Vol] 28.5 g/dL Low 29.9 - 35.2 g/dL [facility] MCV (RBC) [Entitic vol] 69.4 fL Low 80.0 - 94.0 fL [facility] MONOCYTES ABSOLUTE AUTO 0.7 [facility] Monocytes/100 WBC (Bld) 9.5 % 1.7 - 12.0 % [facility] NEUTROPHILS ABSOLUTE AUTO 4.6 [facility] Neutrophils/100 WBC (Bld) 66.4 % 43.0 - 75.0 % [facility] RBC 6.07 [facility] Comment on above: HYPOCHROMASIA 1+ ANISOCYTOSIS 2+ OVALOCYTOSIS 1+ BE CELLS 1+ TBH WBC 6.9 [facility] ALL CBC WITH AUTO DIFFon BASOPHILS ABSOLUTE AUTO 0 [facility] Basophils/100 WBC (Bld) 0.5 % 0.2 - 2.0 % [facility] Eosinophils/100 WBC (Bld) 1.5 % 0.9 - 7.0 % [facility] Erythrocyte distribution width (RBC) [Ratio] 20.7 % High 11.0 - 15.0 % [facility] Hematocrit (Bld) [Volume fraction] 40.5 % Low 42.0 - 54.0 % [facility] Hemoglobin (Bld) [Mass/Vol] 11.3 g/dL Low 14.0 - 18.0 g/dL [facility] IMMATURE GRANULOCYTES ABS AUTO 0.02 [facility] Immature granulocytes/100 WBC (Bld) 0.3 % 0.0 - 0.5 % [facility] Interpretation and review of laboratory results Abnormal [facility] LYMPHOCYTES ABSOLUTE AUTO 2 [facility] Lymphocytes/100 WBC (Bld) 26.4 % 20.5 - 60.0 % [facility] MCH (RBC) [Entitic mass] 18.8 pg Low 25.9 - 34.0 pg [facility] MCHC (RBC) [Mass/Vol] 27.9 g/dL Low 29.9 - 35.2 g/dL [facility] MCV (RBC) [Entitic vol] 67.5 fL Low 80.0 - 94.0 fL [facility] MONOCYTES ABSOLUTE AUTO 0.8 [facility] Monocytes/100 WBC (Bld) 10.6 % 1.7 - 12.0 % [facility] NEUTROPHILS ABSOLUTE AUTO 4.5 [facility] Neutrophils/100 WBC (Bld) 60.7 % 43.0 - 75.0 % [facility] Platelet mean volume (Bld) [Entitic vol] 9.9 fL 9.5 - 13.5 fL [facility] TBH EO # 0.1 [facility] PLT 284 [facility] RBC 6 [facility] WBC 7.4 [facility] ALL CBC WITH AUTO DIFFon BASOPHILS ABSOLUTE AUTO 0 [facility] Basophils/100 WBC (Bld) 0.7 % 0.2 - 2.0 % [facility] Eosinophils/100 WBC (Bld) 0.5 % Low 0.9 - 7.0 % [facility] Erythrocyte distribution width (RBC) [Ratio] 20.8 % High 11.0 - 15.0 % [facility] Hematocrit (Bld) [Volume fraction] 40.4 % Low 42.0 - 54.0 % [facility] Hemoglobin (Bld) [Mass/Vol] 11.3 g/dL Low 14.0 - 18.0 g/dL [facility] IMMATURE GRANULOCYTES ABS AUTO 0.02 [facility] Immature granulocytes/100 WBC (Bld) 0.3 % 0.0 - 0.5 % [facility] Interpretation and review of laboratory results Abnormal [facility] LYMPHOCYTES ABSOLUTE AUTO 1.6 [facility] Lymphocytes/100 WBC (Bld) 26.3 % 20.5 - 60.0 % [facility] MCH (RBC) [Entitic mass] 18.8 pg Low 25.9 - 34.0 pg [facility] MCHC (RBC) [Mass/Vol] 28 g/dL Low 29.9 - 35.2 g/dL [facility] MCV (RBC) [Entitic vol] 67.1 fL Low 80.0 - 94.0 fL [facility] MONOCYTES ABSOLUTE AUTO 1 High [facility] Monocytes/100 WBC (Bld) 16 % High 1.7 - 12.0 % [facility] NEUTROPHILS ABSOLUTE AUTO 3.5 [facility] Neutrophils/100 WBC (Bld) 56.2 % 43.0 - 75.0 % [facility] Platelet mean volume (Bld) [Entitic vol] 10.3 fL 9.5 - 13.5 fL [facility] TBH EO # 0 [facility] TBH PLT 291 [facility] RBC 6.02 [facility] Comment on above: 2+ OVALOCYTES [facility] WBC 6.1 [facility] ALL CBC WITH AUTO DIFFon Erythrocyte distribution width (RBC) [Ratio] 21.2 % High 11.0 - 15.0 % [facility] Hematocrit (Bld) [Volume fraction] 40.1 % Low 42.0 - 54.0 % [facility] Hemoglobin (Bld) [Mass/Vol] 11.1 g/dL Low 14.0 - 18.0 g/dL [facility] Interpretation and review of laboratory results Abnormal [facility] MCH (RBC) [Entitic mass] 18.6 pg Low 25.9 - 34.0 pg [facility] MCHC (RBC) [Mass/Vol] 27.7 g/dL Low 29.9 - 35.2 g/dL [facility] MCV (RBC) [Entitic vol] 67.1 fL Low 80.0 - 94.0 fL [facility] Platelet mean volume (Bld) [Entitic vol] 9.5 fL 9.5 - 13.5 fL [facility] PLT 269 [facility] TBH RBC 5.98 [facility] WBC 6.3 [facility] ALL CBC WITH AUTO DIFFon BASOPHILS ABSOLUTE AUTO 0 [facility] Basophils/100 WBC (Bld) 0.8 % 0.2 - 2.0 % [facility] Eosinophils/100 WBC (Bld) 1 % 0.9 - 7.0 % [facility] Erythrocyte distribution width (RBC) [Ratio] 21.2 % High 11.0 - 15.0 % [facility] Hematocrit (Bld) [Volume fraction] 38.6 % Low 42.0 - 54.0 % [facility] Hemoglobin (Bld) [Mass/Vol] 10.5 g/dL Low 14.0 - 18.0 g/dL [facility] IMMATURE GRANULOCYTES ABS AUTO 0.01 [facility] Immature granulocytes/100 WBC (Bld) 0.2 % 0.0 - 0.5 % [facility] Interpretation and review of laboratory results Abnormal [facility] LYMPHOCYTES ABSOLUTE AUTO 1.3 [facility] Lymphocytes/100 WBC (Bld) 25.9 % 20.5 - 60.0 % [facility] MCH (RBC) [Entitic mass] 18.1 pg Low 25.9 - 34.0 pg [facility] MCHC (RBC) [Mass/Vol] 27.2 g/dL Low 29.9 - 35.2 g/dL [facility] MCV (RBC) [Entitic vol] 66.4 fL Low 80.0 - 94.0 fL [facility] MONOCYTES ABSOLUTE AUTO 0.7 [facility] Monocytes/100 WBC (Bld) 13.7 % High 1.7 - 12.0 % [facility] NEUTROPHILS ABSOLUTE AUTO 2.9 [facility] Neutrophils/100 WBC (Bld) 58.4 % 43.0 - 75.0 % [facility] TBH EO # 0.1 [facility] PLT 269 [facility] RBC 5.81 [facility] Comment on above: HYPOCHROMASIA 2+ OVALOCYTOSIS 2+ ANISOCYTOSIS 2+ TBH WBC 4.9 [facility] ALL CBC WITH AUTO DIFFon BASOPHILS ABSOLUTE AUTO 0 [facility] Basophils/100 WBC (Bld) 0.3 % 0.2 - 2.0 % [facility] Eosinophils/100 WBC (Bld) 0.6 % Low 0.9 - 7.0 % [facility] Erythrocyte distribution width (RBC) [Ratio] 21.9 % High 11.0 - 15.0 % [facility] Hematocrit (Bld) [Volume fraction] 39.7 % Low 42.0 - 54.0 % [facility] Hemoglobin (Bld) [Mass/Vol] 10.7 g/dL Low 14.0 - 18.0 g/dL [facility] IMMATURE GRANULOCYTES ABS AUTO 0.01 [facility] Immature granulocytes/100 WBC (Bld) 0.1 % 0.0 - 0.5 % [facility] Interpretation and review of laboratory results Abnormal [facility] LYMPHOCYTES ABSOLUTE AUTO 1.8 [facility] Lymphocytes/100 WBC (Bld) 27.6 % 20.5 - 60.0 % [facility] MCH (RBC) [Entitic mass] 17.5 pg Low 25.9 - 34.0 pg [facility] MCHC (RBC) [Mass/Vol] 27 g/dL Low 29.9 - 35.2 g/dL [facility] MCV (RBC) [Entitic vol] 64.8 fL Low 80.0 - 94.0 fL [facility] MONOCYTES ABSOLUTE AUTO 0.9 High [facility] Monocytes/100 WBC (Bld) 13.8 % High 1.7 - 12.0 % [facility] NEUTROPHILS ABSOLUTE AUTO 3.8 [facility] Neutrophils/100 WBC (Bld) 57.6 % 43.0 - 75.0 % [facility] Platelet mean volume (Bld) [Entitic vol] 9.6 fL 9.5 - 13.5 fL [facility] TBH EO # 0 [facility] TBH PLT 316 [facility] TB RBC 6.13 High [facility] Comment on above: HYPOCHROMASIA 1+ MICROCYTOSIS 2+ ANISOCYTOSIS 2+ OVALOCYTES 1+ TBH WBC 6.7 [facility] WITH AUTO DIFFon BASOPHILS ABSOLUTE AUTO 0.0 [facility] Basophils/100 WBC (Bld) 0.4 % 0.2 - 2.0 % [facility] Eosinophils/100 WBC (Bld) 0.4 % Low 0.9 - 7.0 % [facility] Erythrocyte distribution width (RBC) [Ratio] 22.1 % High 11.0 - 15.0 % [facility] Hematocrit (Bld) [Volume fraction] 38.7 % Low 42.0 - 54.0 % [facility] Hemoglobin (Bld) [Mass/Vol] 10.5 g/dL Low 14.0 - 18.0 g/dL [facility] IMMATURE GRANULOCYTES ABS AUTO 0.01 [facility] Immature granulocytes/100 WBC (Bld) 0.2 % 0.0 - 0.5 % [facility] Interpretation and review of laboratory results Abnormal [facility] LYMPHOCYTES ABSOLUTE AUTO 1.8 [facility] Lymphocytes/100 WBC (Bld) 31.6 % 20.5 - 60.0 % [facility] MCH (RBC) [Entitic mass] 17.5 pg Low 25.9 - 34.0 pg [facility] MCHC (RBC) [Mass/Vol] 27.1 g/dL Low 29.9 - 35.2 g/dL [facility] MCV (RBC) [Entitic vol] 64.4 fL Low 80.0 - 94.0 fL [facility] MONOCYTES ABSOLUTE AUTO 0.7 [facility] Monocytes/100 WBC (Bld) 11.5 % 1.7 - 12.0 % [facility] NEUTROPHILS ABSOLUTE AUTO 3.2 [facility] Neutrophils/100 WBC (Bld) 55.9 % 43.0 - 75.0 % [facility] Platelet mean volume (Bld) [Entitic vol] 9.2 fL Low 9.5 - 13.5 fL [facility] TBH EO # 0.0 [facility] TBH PLT 284 [facility] TB RBC 6.01 [facility] TB WBC 5.7 [facility] BASIC METABOLIC PANLon 01-09 Anion gap [Moles/Vol] 8 mmol/L Normal 5-15 [facility] Comment on above: Performed By: #### C MANNY, BMP, [id number] #### [facility] ([id number]) [address], [address] [place] [address] Calcium [Mass/Vol] 8.5 mg/dL Normal 8.5-10.5 [facility] Comment on above: Performed By: #### C ANDRES BRYANT, #### [facility] ([id number]) [address], [facility] [address] [place] [address] Chloride [Moles/Vol] 106 mmol/L Normal 98-109 [facility] Comment on above: Performed By: #### C MANNY, BMP, #### [facility] ([id number]) [address] [address] [place] [address] CO2 [Moles/Vol] 28 mmol/L Normal 22-32 [facility] Comment on above: Performed By: #### C MANNY BMP, #### [facility] ([id number]) [address], [address] [place] [address] Creatinine [Mass/Vol] 0.93 mg/dL Normal 0.60-1.30 [facility] Comment on above: Result Comment: METH OD TRACEABLE TO IDMS STANDARD Performed By: #### C ANDRES BRYANT, #### [facility] ([id number]) [address] [address] [place] [address] eGFR (CKD-EPI) NON-RACE DEPENDENT >90 Normal >59 [facility] Comment on above: Result Comment: Reported eGFR is based on the CKD-EPI 2020 equation that does not use a race coefficient. Performed By: #### C BCA, BMP, #### [facility] ([id number]) [address] [address] [place] [address] Glucose [Mass/Vol] 87 mg/dL Normal 65-99 [facility] Comment on above: Performed By: #### C BCA, BMP, #### [facility] ([id number]) [address] [address] [place] [address] Potassium [Moles/Vol] 3.9 mmol/L Normal 3.5-5.0 [facility] Comment on above: Performed By: #### ANDRES Briggs BCA, #### [facility] ([id number]) [address], [address] [place] [address] Sodium [Moles/Vol] 142 mmol/L Normal 134-146 [facility] Comment on above: Performed By: #### ANDRES Briggs BCA, #### [facility] ([id number]) [address], [address] [place] [address] Urea nitrogen [Mass/Vol] 13 mg/dL Normal 5-23 [facility] Comment on above: Performed By: #### ANDRES Briggs BCA, #### [facility] ([id number]) [address], [address] [place] [address] CBC AND AUTO DIFFon 01-10-20 24 ABSOLUTE BASOPHIL 0.0 X10E9/L Normal 0.0-0.2 [facility] Comment on above: Performed By: #### ANDRES Briggs BCA, #### [facility] ([id number]) [address], [address] [place] [address] ABSOLUTE NEUTROPHIL 7.9 X10E9/L High 1.5-6.6 [facility] Comment on above: Performed By: #### ANDRES Briggs BCA, #### [facility] ([id number]) [address], [address] [place] [address] Basophils/100 WBC (Bld) 0.2 % Normal [facility] Comment on above: Performed By: #### ANDRES Briggs BCA, #### [facility] ([id number]) [address], [address] [place] [address] Eosinophils (Bld) [#/Vol] 0.0 10*3/uL Normal 0.0-0.4 [facility] Comment on above: Performed By: #### C ANDRES BRYANT, #### [facility] ([id number]) [address], [address] [place] [address] Eosinophils/100 WBC (Bld) 0.2 % Normal [facility] Comment on above: Performed By: #### ANDRES Briggs BCA, #### [facility] ([id number]) [address], [facility] [address] [place] [address] Erythrocyte distribution width (RBC) [Ratio] 20.7 % High 11.5-15.0 [facility] Comment on above: Performed By: #### ANDRES Briggs BCA, #### [facility] ([id number]) [address], [address] [place] [address] FRAGMENT 1+ Abnormal NONE [facility] Comment on above: Performed By: #### ANDRES Briggs BCA, #### [facility] ([id number]) [address], [address] [place] [address] Hematocrit (Bld) [Volume fraction] 30.0 % Low 39-49 [facility] Comment on above: Performed By: #### ANDRES Briggs BCA, #### [facility] ([id number]) [address], [address] [place] [address] Hemoglobin (Bld) [Mass/Vol] 8.7 g/dL Low 13.0-17.0 [facility] Comment on above: Performed By: #### ANDRES Briggs BCA, #### [facility] ([id number]) [address], [address] [place] [address] HYPOCHROMIA 2+ Abnormal NONE [facility] Comment on above: Performed By: #### ANDRES Briggs BCA, #### [facility] ([id number]) [address], [address] [place] [address] Lymphocytes (Bld) [#/Vol] 2.6 10*3/uL Normal 1.0-3.5 [facility] Comment on above: Performed By: #### C ANDRES BRYANT, #### [facility] ([id number]) [address], [address] [place] [address] Lymphocytes/100 WBC (Bld) 22.1 % Normal [facility] Comment on above: Performed By: #### ANDRES Briggs BCA, #### [facility] ([id number]) [address], [facility] [address] [place] [address] MCH (RBC) [Entitic mass] 16.7 pg Low 27-34 [facility] Comment on above: Performed By: #### ANDRES Briggs BCA, #### [facility] ([id number]) [address], [address] [place] [address] MCHC (RBC) [Mass/Vol] 29.1 g/dL Low 32-36 [facility] Comment on above: Performed By: #### ANDRES Briggs BCA, #### [facility] ([id number]) [address], [address] [place] [address] MCV (RBC) [Entitic vol] 58 fL Low 80-100 [facility] Comment on above: Performed By: #### ANDRES Briggs BCA, #### [facility] ([id number]) [address], [address] [place] [address] Monocytes (Bld) [#/Vol] 1.3 10*3/uL High 0-0.9 [facility] Comment on above: Performed By: #### Brigitte BRYANT BMP, #### [facility] ([id number]) [address], [address] [place] [address] Monocytes/100 WBC (Bld) 11.2 % Normal [facility] Comment on above: Performed By: #### ANDRES Briggs BCA, #### [facility] ([id number]) [address], [address] [place] [address] Neutrophils/100 WBC (Bld) 66.3 % Normal [facility] Comment on above: Performed By: #### ANDRES Briggs BCA, #### [facility] ([id number]) [address], [address] [place] [address] OVALOCYTE 2+ Abnormal NONE [facility] Comment on above: Performed By: #### ANDRES Briggs BCA, #### [facility] ([id number]) [address], [address] [place] [address] Platelet mean volume (Bld) [Entitic vol] 8.7 fL Normal 7-12 [facility] Comment on above: Performed By: #### ANDRES Briggs BCA, #### [facility] ([id number]) [address], [address] [place] [address] Platelets (Bld) [#/Vol] 326 10*3/uL Normal 150-450 [facility] Comment on above: Performed By: #### ANDRES Briggs BCA, #### [facility] ([id number]) [address], [address] [place] [address] RBC COUNT 5.21 X10E12/L Normal 4.10-5.70 [facility] Comment on above: Performed By: #### ANDRES Briggs BCA, #### [facility] ([id number]) [address], [address] [place] [address] WBC (Bld) [#/Vol] 11.9 10*3/uL High 4.0-11.[address] [facility] Comment on above: Performed By: #### C ANDRES BRYANT, #### [facility] ([id number]) [address], [address] [place] [address] MAGNESIUMon 01-10-2024 Magnesium [Mass/Vol] 2.0 mg/dL Normal 1.8-2.6 [facility] Comment on above: Performed By: #### C ANDRES BRYANT, #### [facility] ([id number]) [address] [place] [address] BASIC METABOLIC PANLon 01-08 Anion gap [Moles/Vol] 9 mmol/L Normal 5-15 [facility] Comment on above: Performed By: #### ANDRES Briggs BCA, #### [facility] ([id number]) [address], [address] [place] [address] Calcium [Mass/Vol] 8.8 mg/dL Normal 8.5-10.5 [facility] Comment on above: Performed By: #### ANDRES Briggs BCA, #### [facility] ([id number]) [address], [address] [place] [address] Chloride [Moles/Vol] 107 mmol/L Normal 98-109 [facility] Comment on above: Performed By: #### ANDRES Briggs BCA, #### [facility] ([id number]) [address], [address] [place] [address] CO2 [Moles/Vol] 25 mmol/L Normal 22-32 [facility] Comment on above: Performed By: #### ANDRES Briggs BCA, #### [facility] ([id number]) [address], [address] [place] [address] Creatinine [Mass/Vol] 0.96 mg/dL Normal 0.60-1.30 [facility] Comment on above: Result Comment: METH OD TRACEABLE TO IDMS STANDARD Performed By: #### C MANNY [facility], #### [facility] ([id number]) [address] [address] [place] [address] eGFR (CKD-EPI) NON-RACE DEPENDENT >90 Normal >59 [facility] Comment on above: Result Comment: Reported eGFR is based on the CKD-EPI 2020 equation that does not use a race coefficient. Performed By: #### C MANNY [facility], #### [facility] ([id number]) [address] [address] [place] [address] Glucose [Mass/Vol] 117 mg/dL High 65-99 [facility] Comment on above: Performed By: #### C ANDRES BRYANT, #### [facility] ([id number]) [address] [address] [place] [address] Potassium [Moles/Vol] 4.5 mmol/L Normal 3.5-5.0 [facility] Comment on above: Performed By: #### C MANNY [facility], #### [facility] ([id number]) [address] [address] [place] [address] Sodium [Moles/Vol] 141 mmol/L Normal 134-146 [facility] Comment on above: Performed By: #### C MANNY [facility], #### [facility] ([id number]) [address] [address] [place] [address] Urea nitrogen [Mass/Vol] 19 mg/dL Normal 5-23 [facility] Comment on above: Performed By: #### C ANDRES BRYANT, #### [facility] ([id number]) [address] [address] [place] [address] CBC AND AUTO DIFFon 15-20 24 ACANTHOCYTE 2+ Abnormal NONE [facility] Comment on above: Performed By: #### C ANDRES BRYANT, #### [facility] ([id number]) [address] [place] [address] Erythrocyte distribution width (RBC) [Ratio] 21.0 % High 11.5-15.0 [facility] Comment on above: Performed By: #### ANDRES Briggs BCA, #### [facility] ([id number]) [address] [place] [address] FRAGMENT 1+ Abnormal NONE [facility] Comment on above: Performed By: #### ANDRES Briggs BCA, #### [facility] ([id number]) [address], [facility] [address] [place] [address] Hematocrit (Bld) [Volume fraction] 32.9 % Low 39-49 [facility] Comment on above: Performed By: #### ANDRES Briggs BCA, #### [facility] ([id number]) [address], [address] [place] [address] Hemoglobin (Bld) [Mass/Vol] 9.4 g/dL Low 13.0-17.0 [facility] Comment on above: Performed By: #### ANDRES Briggs BCA, #### [facility] ([id number]) [address] [place] [address] HYPOCHROMIA 2+ Abnormal NONE [facility] Comment on above: Performed By: #### ANDRES Briggs BCA, #### [facility] ([id number]) [address] [place] [address] Lymphocytes (Bld) [#/Vol] 0.6 10*3/uL Low 1.0-3.5 [facility] Comment on above: Performed By: #### Brigitte BRYANT BMP, #### [facility] ([id number]) 0 [address] [place] [address] Lymphocytes/100 WBC (Bld) 4.0 % Normal [facility] Comment on above: Performed By: #### ANDRES Briggs BCA, #### [facility] ([id number]) [address] [place] [address] MCH (RBC) [Entitic mass] 16.4 pg Low 27-34 [facility] Comment on above: Performed By: #### ANDRES Briggs BCA, #### [facility] ([id number]) [address], [address] [place] [address] MCHC (RBC) [Mass/Vol] 28.6 g/dL Low 32-36 [facility] Comment on above: Performed By: #### ANDRES Briggs BCA, #### [facility] ([id number]) [address] [place] [address] MCV (RBC) [Entitic vol] 57 fL Low 80-100 [facility] Comment on above: Performed By: #### ANDRES Briggs BCA, #### [facility] ([id number]) [address], [address] [place] [address] Monocytes (Bld) [#/Vol] 0.5 10*3/uL Normal 0-0.9 [facility] Comment on above: Performed By: #### ANDRES Briggs BCA, #### [facility] ([id number]) [address] [place] [address] Monocytes/100 WBC (Bld) 3.0 % Normal [facility] Comment on above: Performed By: #### ANDRES Briggs BCA, #### [facility] ([id number]) [address], [address] [place] [address] Neutrophils (Bld) [#/Vol] 14.5 10*3/uL High 1.5-6.6 [facility] Comment on above: Performed By: #### ANDRES Briggs BCA, #### [facility] ([id number]) [address] [place] [address] OVALOCYTE 2+ Abnormal NONE [facility] Comment on above: Performed By: #### ANDRES Briggs BCA, #### [facility] ([id number]) [address] [place] [address] Platelet mean volume (Bld) [Entitic vol] 8.7 fL Normal 7-12 [facility] Comment on above: Performed By: #### ANDRES Briggs BCA, #### [facility] ([id number]) [address] [facility] [address] [place] [address] Platelets (Bld) [#/Vol] 347 10*3/uL Normal 150-450 [facility] Comment on above: Performed By: #### ANDRES Briggs BCA, #### [facility] ([id number]) [address] [place] [address] POLYCHROMASIA 1+ Abnormal NONE [facility] Comment on above: Performed By: #### ANDRES Briggs BCA, #### [facility] ([id number]) [address] [place] [address] RBC COUNT 5.76 X10E12/L High 4.10-5.70 [facility] Comment on above: Performed By: #### ANDRES Briggs BCA, #### [facility] ([id number]) [address] [place] [address] SEG NEUTROPHIL 93.0 % Normal [facility] Comment on above: Performed By: #### ANDRES Briggs BCA, #### [facility] ([id number]) [address] [place] [address], [address] [place] [address] TEARDROP 1+ Abnormal NONE [facility] Comment on above: Performed By: #### C ANDRES BRYANT, 85761-3 #### [facility] ([id number]) [address] [facility], [address] [place] [address] WBC (Bld) [#/Vol] 15.6 10*3/uL High 4.0-11.[address] [facility] Comment on above: Performed By: #### C MANNY, ANDRES, 11686-8 #### [facility] ([id number]) [address] [place] [address], [address] [place] [address] MAGNESIUMon 01-09-2024 Magnesium [Mass/Vol] 2.0 mg/dL Normal 1.8-2.6 [facility] Comment on above: Performed By: #### C ANDRES BRYANT, 60152-4 #### [facility] ([id number]) [address] [place] [address], [address] [place] [address] Surgical Pathologyon 024 Surgical Pathology Normal [facility] Comment on above: Result Comment: [facility] [address] [place] [address] Surgical Pathology Consultation Patient Name:SASCHA COLBERTMDOB:2000 (Age: 23)Gender:MTaken:4Reported:01/13/2024hysician(s):Pushpa Silva MD ([phone])Copy To: Rec. #:[id number]: #[id number] Final Pathologic Diagnosis Rectosigmoidectomy: Mucosal ischemic change with superficial mucosal necrosis, acute inflammation, hyalinization of lamina propria and atrophic crypts. Strands of smooth muscle extending into lamina propria with surface erosion compatible with prolapse changes. No malignancy identified. Report Electronically Signed Out ssi/01/13/2024Surendra P. Cortez, M.D. Interpretation performed at [facility], [address] [place] [address], License number: [id number]. Clinical History Rectal prolapse, ischemic rectum. Gross [...] sections of proximal margin G edematous wall (7,ss,[id number], m1) /01/09/2024GP Specimen(s) Received Rectum and sigmoid Fee Codes(s): 1; 66048 CBC AUTO DIFFon 03-26-2023 BASO # 0.0 103/ul Normal 0.0-0.1 [facility] Comment on above: Performed By: #### C BC #### [facility] [address] [place] [address] Dr. Sonido Bejarano Basophils/100 WBC (Bld) 0.7 % Normal 0.2-2.0 [facility] Comment on above: Performed By: #### C BC #### [facility] [address] [place] [address] Dr. Sonido Bejarano EO # 0.1 103/ul Normal 0.0-0.7 [facility] Comment on above: Performed By: #### C BC #### [facility] [address] [place] [address] Dr. Sonido Bejarano Eosinophils/100 WBC (Bld) 1.0 % Normal 0.9-7.0 [facility] Comment on above: Performed By: #### C BC #### [facility] [address] [place] [address] Dr. Sonido Bejarano Erythrocyte distribution width (RBC) [Ratio] 22.3 % Critically high 11.0-15.0 [facility] Comment on above: Performed By: #### C BC #### [facility] [address] [place] [address] Dr. Sonido Bejarano Hematocrit (Bld) [Volume fraction] 32.0 % Critically low 42.0-54.0 [facility] Comment on above: Performed By: #### C BC #### [facility] [address] [place] [address] Dr. Sonido Bejarano Hemoglobin (Bld) [Mass/Vol] 8.3 g/dL Critically low 14.0-18.0 [facility] Comment on above: Performed By: #### C BC #### [facility] [address] [place] [address] Dr. Sonido Bejarano IG # 0.01 10e3/ul Normal 0.00-0.03 [facility] Comment on above: Performed By: #### C BC #### [facility] [address] [place] [address] Dr. Sonido Bejarano IG % 0.2 % Normal 0.0-0.5 [facility] Comment on above: Performed By: #### C BC #### [facility] [address] [place] [address] Dr. Sonido Bejarano LYMPH # 1.2 103/ul Normal 1.2-3.8 [facility] Comment on above: Performed By: #### C BC #### [facility] [address] [place] [address] Dr. Sonido Bejarano Lymphocytes/100 WBC (Bld) 20.1 % Critically low 20.5-60.0 [facility] Comment on above: Performed By: #### C BC #### [facility] [address] [place] [address] Dr. Sonido Bejarano MANUAL DIFF REQ NO Normal [facility] Comment on above: Performed By: #### C BC #### [facility] [address] [place] [address] Dr. Sonido Bejarano MCH (RBC) [Entitic mass] 15.7 pg Critically low 25.9-34.0 [facility] Comment on above: Performed By: #### C BC #### [facility] [address] [place] [address] Dr. Sonido Bejarano MCHC (RBC) [Mass/Vol] 25.9 g/dL Critically low 29.9-35.2 [facility] Comment on above: Performed By: #### C BC #### [facility] [address] [place] [address] Dr. Sonido Bejarano MCV (RBC) [Entitic vol] 60.6 fL Critically low 80.0-94.0 [facility] Comment on above: Performed By: #### C BC #### [facility] [address] [place] [address] Dr. Sonido Bejarano MONO # 0.7 103/ul Normal 0.3-0.8 [facility] Comment on above: Performed By: #### C BC #### [facility] [address] [place] [address] Dr. Sonido Bejarano Monocytes/100 WBC (Bld) 12.2 % Critically high 1.7-12.0 [facility] Comment on above: Performed By: #### C BC #### [facility] [address] [place] [address] Dr. Sonido Bejarano NEUT # 3.8 103/ul Normal 1.4-6.5 [facility] Comment on above: Performed By: #### C BC #### [facility] [address] [place] [address] Dr. Sonido Bejarano Neutrophils/100 WBC (Bld) 65.8 % Normal 43.0-75.0 [facility] Comment on above: Performed By: #### C BC #### [facility] [address] [place] [address] Dr. Sonido Bejarano Platelet mean volume (Bld) [Entitic vol] 9.2 fL Critically low 9.5-13.5 [facility] Comment on above: Performed By: #### C BC #### [facility] [address] [place] [address] Dr. Sonido Bejarano PLT 369 103/ul Normal 150-450 [facility] Comment on above: Performed By: #### C BC #### [facility] [address] [place] [address] Dr. Sonido Bejarano RBC 5.28 106/ul Normal 4.70-6.10 [facility] Comment on above: Performed By: #### C BC #### [facility] [address] [place] [address] Dr. Sonido Bejarano WBC 5.8 103/ul Normal 4.0-11.0 [facility] Comment on above: Performed By: #### C BC #### [facility] [address] [place] [address] Dr. Sonido Bejarano CBC AUTO DIFFon 02-19-2023 BASO # 0.0 103/ul Normal 0.0-0.1 [facility] Comment on above: Performed By: #### C BC #### [facility] [address] [place] [address] Dr. Sonido Bejarano Basophils/100 WBC (Bld) 0.7 % Normal 0.2-2.0 [facility] Comment on above: Performed By: #### C BC #### [facility] [address] [place] [address] Dr. Sonido Bejarano EO # 0.1 103/ul Normal 0.0-0.7 [facility] Comment on above: Performed By: #### C BC #### [facility] [address] [place] [address] Dr. Sonido Bejarano Eosinophils/100 WBC (Bld) 1.1 % Normal 0.9-7.0 [facility] Comment on above: Performed By: #### C BC #### [facility] [address] [place] [address] Dr. Sonido Bejarano Erythrocyte distribution width (RBC) [Ratio] 22.7 % Critically high 11.0-15.0 [facility] Comment on above: Performed By: #### C BC #### [facility] [address] [place] [address] Dr. Sonido Bejarano Hematocrit (Bld) [Volume fraction] 32.9 % Critically low 42.0-54.0 [facility] Comment on above: Performed By: #### C BC #### [facility] [address] [place] [address] Dr. Sonido Bejarano Hemoglobin (Bld) [Mass/Vol] 8.2 g/dL Critically low 14.0-18.0 [facility] Comment on above: Performed By: #### C BC #### [facility] [address] [place] [address] Dr. Sonido Bejarano IG # 0.02 10e3/ul Normal 0.00-0.03 [facility] Comment on above: Performed By: #### C BC #### [facility] [address] [place] [address] Dr. Sonido Bejarano IG % 0.3 % Normal 0.0-0.5 [facility] Comment on above: Performed By: #### C BC #### [facility] [address] [place] [address] Dr. Sonido Bejarano LYMPH # 1.4 103/ul Normal 1.2-3.8 [facility] Comment on above: Performed By: #### C BC #### [facility] [address] [place] [address] Dr. Sonido Bejarano Lymphocytes/100 WBC (Bld) 22.8 % Normal 20.5-60.0 [facility] Comment on above: Performed By: #### C BC #### [facility] [address] [place] [address] Dr. Sonido Bejarano MANUAL DIFF REQ NO Normal [facility] Comment on above: Performed By: #### C BC #### [facility] [address] [place] [address] Dr. Sonido Bejarano MCH (RBC) [Entitic mass] 15.3 pg Critically low 25.9-34.0 [facility] Comment on above: Performed By: #### C BC #### [facility] [address] [address] [address] Sonido Bejarano MCHC (RBC) [Mass/Vol] 24.9 g/dL Critically low 29.9-35.2 [facility] Comment on above: Performed By: #### C BC #### [facility] [address] [address] [address] Sonido Bejarano MCV (RBC) [Entitic vol] 61.3 fL Critically low 80.0-94.0 [facility] Comment on above: Performed By: #### C BC #### [facility] [address] [address] [address] Sonido Bejarano MONO # 0.7 103/ul Normal 0.3-0.8 [facility] Comment on above: Performed By: #### C BC #### [facility] [address] [place] [address] Dr. Sonido Bejarano Monocytes/100 WBC (Bld) 11.6 % Normal 1.7-12.0 [facility] Comment on above: Performed By: #### C BC #### [facility] [address] [place] [address] Dr. Sonido Bejarano NEUT # 3.9 103/ul Normal 1.4-6.5 [facility] Comment on above: Performed By: #### C BC #### [facility] [address] [place] [address] Dr. Sonido Bejarano Neutrophils/100 WBC (Bld) 63.5 % Normal 43.0-75.0 [facility] Comment on above: Performed By: #### C BC #### [facility] [address] [address] [address] Sonido Bejarano Platelet mean volume (Bld) [Entitic vol] 9.3 fL Critically low 9.5-13.5 [facility] Comment on above: Performed By: #### C BC #### [facility] [address] [place] [address] Dr. Sonido Bejarano PLT 394 103/ul Normal 150-450 [facility] Comment on above: Performed By: #### C BC #### [facility] [address] [place] [address] Dr. Sonido Bejarano RBC 5.37 106/ul Normal 4.70-6.10 [facility] Comment on above: Performed By: #### C BC #### [facility] [address] [place] [address] Dr. Sonido Bejarano WBC 6.1 103/ul Normal 4.0-11.0 [facility] Comment on above: Performed By: #### C BC #### [facility] [address] [place] [address] Dr. Sonido Bejarano CBC AUTO DIFFon 01-15-2023 BASO # 0.0 103/ul Normal 0.0-0.1 [facility] Comment on above: Performed By: #### C BC #### [facility] [address] [place] [address] Dr. Sonido Bejarano Basophils/100 WBC (Bld) 0.3 % Normal 0.2-2.0 [facility] Comment on above: Performed By: #### C BC #### [facility] [address] [place] [address] Dr. Sonido Bejarano EO # 0.0 103/ul Normal 0.0-0.7 [facility] Comment on above: Performed By: #### C BC #### [facility] [address] [place] [address] Dr. Sonido Bejarano Eosinophils/100 WBC (Bld) 0.4 % Critically low 0.9-7.0 [facility] Comment on above: Performed By: #### C BC #### [facility] [address] [place] [address] Dr. Sonido Bejarano Erythrocyte distribution width (RBC) [Ratio] 22.4 % Critically high 11.0-15.0 [facility] Comment on above: Performed By: #### C BC #### [facility] [address] [place] [address] Dr. Sonido Bejarano Hematocrit (Bld) [Volume fraction] 31.5 % Critically low 42.0-54.0 [facility] Comment on above: Performed By: #### C BC #### [facility] [address] [place] [address] Dr. Sonido Bejarano Hemoglobin (Bld) [Mass/Vol] 8.1 g/dL Critically low 14.0-18.0 [facility] Comment on above: Performed By: #### C BC #### [facility] [address] [place] [address] Dr. Sonido Bejarano IG # 0.02 10e3/ul Normal 0.00-0.03 [facility] Comment on above: Performed By: #### C BC #### [facility] [address] [place] [address] Dr. Sonido Bejarano IG % 0.3 % Normal 0.0-0.5 [facility] Comment on above: Performed By: #### C BC #### [facility] [address] [place] [address] Dr. Sonido Bejarano LYMPH # 1.3 103/ul Normal 1.2-3.8 [facility] Comment on above: Performed By: #### C BC #### [facility] [address] [place] [address] Dr. Sonido Bejarano Lymphocytes/100 WBC (Bld) 19.4 % Critically low 20.5-60.0 [facility] Comment on above: Performed By: #### C BC #### [facility] [address] [place] [address] Dr. Sonido Bejarano MANUAL DIFF REQ NO Normal [facility] Comment on above: Performed By: #### C BC #### [facility] [address] [place] [address] Dr. Sonido Bejarano MCH (RBC) [Entitic mass] 15.5 pg Critically low 25.9-34.0 [facility] Comment on above: Performed By: #### C BC #### [facility] [address] [place] [address] Dr. Sonido Bejarano MCHC (RBC) [Mass/Vol] 25.7 g/dL Critically low 29.9-35.2 [facility] Comment on above: Performed By: #### C BC #### [facility] [address] [address] [address] Soindo Bejarano MCV (RBC) [Entitic vol] 60.2 fL Critically low 80.0-94.0 [facility] Comment on above: Performed By: #### C BC #### [facility] [address] [address] [address] Sonido Bejarano MONO # 0.9 103/ul Critically high 0.3-0.8 [facility] Comment on above: Performed By: #### C BC #### [facility] [address] [address] [address] Sonido Bejarano Monocytes/100 WBC (Bld) 12.9 % Critically high 1.7-12.0 [facility] Comment on above: Performed By: #### C BC #### [facility] [address] [place] [address] Dr. Sonido Bejarano NEUT # 4.5 103/ul Normal 1.4-6.5 [facility] Comment on above: Performed By: #### C BC #### [facility] [address] [address] [address] Sonido Bejarano Neutrophils/100 WBC (Bld) 66.7 % Normal 43.0-75.0 [facility] Comment on above: Performed By: #### C BC #### [facility] [address] [address] [address] Sonido Bejarano Platelet mean volume (Bld) [Entitic vol] 9.2 fL Critically low 9.5-13.5 [facility] Comment on above: Performed By: #### C BC #### [facility] [address] [place] [address] Dr. Sonido Bejarano PLT 356 103/ul Normal 150-450 [facility] Comment on above: Performed By: #### C BC #### [facility] [address] [place] [address] Dr. Sonido Bejarano RBC 5.23 106/ul Normal 4.70-6.10 [facility] Comment on above: Result Comment: 2+ P OIKILOCYTOSIS 2+ ANISOCYTOSIS 2+ OVALOCYTE 1+ TEAR DROP CELL 2+ ACANTHOCYTE Performed By: #### C BC #### [facility] [address] [address] [address] Sonido Bejarano WBC 6.8 103/ul Normal 4.0-11.0 [facility] Comment on above: Performed By: #### C BC #### [facility] [address] [place] [address] Dr. Sonido Bejarano CBC AUTO DIFFon 12-20-2022 BASO # 0.0 103/ul Normal 0.0-0.1 [facility] Comment on above: Performed By: #### C BC #### [facility] [address] [place] [address] Dr. Sonido Bejarano Basophils/100 WBC (Bld) 0.5 % Normal 0.2-2.0 [facility] Comment on above: Performed By: #### C BC #### [facility] [address] [place] [address] Dr. Sonido Bejarano EO # 0.1 103/ul Normal 0.0-0.7 [facility] Comment on above: Performed By: #### C BC #### [facility] [address] [place] [address] Dr. Sonido Bejarano Eosinophils/100 WBC (Bld) 1.3 % Normal 0.9-7.0 [facility] Comment on above: Performed By: #### C BC #### [facility] [address] [place] [address] Dr. Sonido Bejarano Erythrocyte distribution width (RBC) [Ratio] 22.8 % Critically high 11.0-15.0 [facility] Comment on above: Performed By: #### C BC #### [facility] [address] [place] [address] Dr. Sonido Bejarano Hematocrit (Bld) [Volume fraction] 34.5 % Critically low 42.0-54.0 [facility] Comment on above: Performed By: #### C BC #### [facility] [address] [place] [address] Dr. Sonido Bejarano Hemoglobin (Bld) [Mass/Vol] 8.9 g/dL Critically low 14.0-18.0 [facility] Comment on above: Performed By: #### C BC #### [facility] [address] [place] [address] Dr. Sonido Bejarano IG # 0.01 10e3/ul Normal 0.00-0.03 [facility] Comment on above: Performed By: #### C BC #### [facility] [address] [place] [address] Dr. Sonido Bejarano IG % 0.2 % Normal 0.0-0.5 [facility] Comment on above: Performed By: #### C BC #### [facility] [address] [place] [address] Dr. Sonido Bejarano LYMPH # 1.0 103/ul Critically low 1.2-3.8 [facility] Comment on above: Performed By: #### C BC #### [facility] [address] [place] [address] Dr. Sonido Bejarano Lymphocytes/100 WBC (Bld) 18.3 % Critically low 20.5-60.0 [facility] Comment on above: Performed By: #### C BC #### [facility] [address] [place] [address] Dr. Sonido Bejarano MANUAL DIFF REQ NO Normal [facility] Comment on above: Performed By: #### C BC #### [facility] [address] [place] [address] Dr. Sonido Bejarano MCH (RBC) [Entitic mass] 15.6 pg Critically low 25.9-34.0 [facility] Comment on above: Performed By: #### C BC #### [facility] [address] [place] [address] Dr. Sonido Bejarano MCHC (RBC) [Mass/Vol] 25.8 g/dL Critically low 29.9-35.2 [facility] Comment on above: Performed By: #### C BC #### [facility] [address] [place] [address] Dr. Sonido Bejarano MCV (RBC) [Entitic vol] 60.6 fL Critically low 80.0-94.0 [facility] Comment on above: Performed By: #### C BC #### [facility] [address] [address] [address] Sonido Bejarano MONO # 0.7 103/ul Normal 0.3-0.8 [facility] Comment on above: Performed By: #### C BC #### [facility] [address] [place] [address] Dr. Sonido Bejarano Monocytes/100 WBC (Bld) 13.2 % Critically high 1.7-12.0 [facility] Comment on above: Performed By: #### C BC #### [facility] [address] [place] [address] Dr. Sonido Bejarano NEUT # 3.7 103/ul Normal 1.4-6.5 [facility] Comment on above: Performed By: #### C BC #### [facility] [address] [place] [address] Dr. Sonido Bejarano Neutrophils/100 WBC (Bld) 66.5 % Normal 43.0-75.0 [facility] Comment on above: Performed By: #### C BC #### [facility] [address] [place] [address] Dr. Sonido Bejarano Platelet mean volume (Bld) [Entitic vol] 9.6 fL Normal 9.5-13.5 [facility] Comment on above: Performed By: #### C BC #### [facility] [address] [place] [address] Dr. Sonido Bejarano PLT 441 103/ul Normal 150-450 [facility] Comment on above: Performed By: #### C BC #### [facility] [address] [place] [address] Dr. Soniod Bejarano RBC 5.69 106/ul Normal 4.70-6.10 [facility] Comment on above: Result Comment: Anis ocytosis 2+ Hypochromasia 2+ Poikilocytosis 2+ Ovalocytes 1+ Tear drop cells 1+ Acanthocytes 1+ Performed By: #### C BC #### [facility] [address] [place] [address] Dr. Sonido Bejarano WBC 5.5 103/ul Normal 4.0-11.0 [facility] Comment on above: Performed By: #### C BC #### [facility] [address] [place] [address] Dr. Sonido Bejarano CBC AUTO DIFFon 11-20-2022 BASO # 0.1 103/ul Normal 0.0-0.1 [facility] Comment on above: Performed By: #### C BC #### [facility] [address] [place] [address] Dr. Sonido Bejarano Basophils/100 WBC (Bld) 1.0 % Normal 0.2-2.0 [facility] Comment on above: Performed By: #### C BC #### [facility] [address] [place] [address] Dr. Sonido Bejarano EO # 0.1 103/ul Normal 0.0-0.7 [facility] Comment on above: Performed By: #### C BC #### [facility] [address] [place] [address] Dr. Sonido Bejarano Eosinophils/100 WBC (Bld) 2.1 % Normal 0.9-7.0 [facility] Comment on above: Performed By: #### C BC #### [facility] [address] [place] [address] Dr. Sonido Bejarano Erythrocyte distribution width (RBC) [Ratio] 23.0 % Critically high 11.0-15.0 [facility] Comment on above: Performed By: #### C BC #### [facility] [address] [place] [address] Dr. Sonido Bejarano Hematocrit (Bld) [Volume fraction] 32.6 % Critically low 42.0-54.0 [facility] Comment on above: Performed By: #### C BC #### [facility] [address] [place] [address] Dr. Sonido Bejarano Hemoglobin (Bld) [Mass/Vol] 8.0 g/dL Critically low 14.0-18.0 [facility] Comment on above: Performed By: #### C BC #### [facility] [address] [place] [address] Dr. Sonido Bejarano IG # 0.01 10e3/ul Normal 0.00-0.03 [facility] Comment on above: Performed By: #### C BC #### [facility] [address] [place] [address] Dr. Sonido Bejarano IG % 0.2 % Normal 0.0-0.5 [facility] Comment on above: Performed By: #### C BC #### [facility] [address] [place] [address] Dr. Sonido Bejarano LYMPH # 1.1 103/ul Critically low 1.2-3.8 [facility] Comment on above: Performed By: #### C BC #### [facility] [address] [place] [address] Dr. Sonido Bejarano Lymphocytes/100 WBC (Bld) 22.0 % Normal 20.5-60.0 [facility] Comment on above: Performed By: #### C BC #### [facility] [address] [place] [address] Dr. Sonido Bejarano MANUAL DIFF REQ NO Normal [facility] Comment on above: Performed By: #### C BC #### [facility] [address] [place] [address] Dr. Sonido Bejarano MCH (RBC) [Entitic mass] 15.6 pg Critically low 25.9-34.0 [facility] Comment on above: Performed By: #### C BC #### [facility] [address] [place] [address] Dr. Sonido Bejarano MCHC (RBC) [Mass/Vol] 24.5 g/dL Critically low 29.9-35.2 [facility] Comment on above: Performed By: #### C BC #### [facility] [address] [place] [address] Dr. Sonido Bejarano MCV (RBC) [Entitic vol] 63.4 fL Critically low 80.0-94.0 [facility] Comment on above: Performed By: #### C BC #### [facility] [address] [place] [address] Dr. Sonido Bejarano MONO # 0.6 103/ul Normal 0.3-0.8 [facility] Comment on above: Performed By: #### C BC #### [facility] [address] [place] [address] Dr. Sonido Bejarano Monocytes/100 WBC (Bld) 13.0 % Critically high 1.7-12.0 [facility] Comment on above: Performed By: #### C BC #### [facility] [address] [place] [address] Dr. Sonido Bejarano NEUT # 3.0 103/ul Normal 1.4-6.5 [facility] Comment on above: Performed By: #### C BC #### [facility] [address] [place] [address] Dr. Sonido Bejarano Neutrophils/100 WBC (Bld) 61.7 % Normal 43.0-75.0 [facility] Comment on above: Performed By: #### C BC #### [facility] [address] [place] [address] Dr. Sonido Bejarano Platelet mean volume (Bld) [Entitic vol] 8.6 fL Critically low 9.5-13.5 [facility] Comment on above: Performed By: #### C BC #### [facility] [address] [place] [address] Dr. Sonido Bejarano PLT 333 103/ul Normal 150-450 [facility] Comment on above: Performed By: #### C BC #### [facility] [address] [place] [address] Dr. Sonido Bejarano RBC 5.14 106/ul Normal 4.70-6.10 [facility] Comment on above: Performed By: #### C BC #### [facility] [address] [place] [address] Dr. Sonido Bejarano WBC 4.9 103/ul Normal 4.0-11.0 [facility] Comment on above: Performed By: #### C BC #### [facility] [address] [place] [address] Dr. Sonido Bejarano CBC AUTO DIFFon 10-11-2022 BASO # 0.0 103/ul Normal 0.0-0.1 [facility] Comment on above: Performed By: #### C BC #### [facility] [address] [place] [address] Dr. Sonido Bejarano Basophils/100 WBC (Bld) 0.8 % Normal 0.2-2.0 [facility] Comment on above: Performed By: #### C BC #### [facility] [address] [place] [address] Dr. Sonido Bejarano EO # 0.1 103/ul Normal 0.0-0.7 [facility] Comment on above: Performed By: #### C BC #### [facility] [address] [place] [address] Dr. Sonido Bejarano Eosinophils/100 WBC (Bld) 1.5 % Normal 0.9-7.0 [facility] Comment on above: Performed By: #### C BC #### [facility] [address] [place] [address] Dr. Sonido Bejarano Erythrocyte distribution width (RBC) [Ratio] 22.4 % Critically high 11.0-15.0 [facility] Comment on above: Performed By: #### C BC #### [facility] [address] [place] [address] Dr. Sonido Bejarano Hematocrit (Bld) [Volume fraction] 32.3 % Critically low 42.0-54.0 [facility] Comment on above: Performed By: #### C BC #### [facility] [address] [place] [address] Dr. Sonido Bejarano Hemoglobin (Bld) [Mass/Vol] 8.1 g/dL Critically low 14.0-18.0 [facility] Comment on above: Performed By: #### C BC #### [facility] [address] [place] [address] Dr. Sonido Bejarano IG # 0.01 10e3/ul Normal 0.00-0.03 [facility] Comment on above: Performed By: #### C BC #### [facility] [address] [place] [address] Dr. Sonido Bejarano IG % 0.2 % Normal 0.0-0.5 [facility] Comment on above: Performed By: #### C BC #### [facility] [address] [place] [address] Dr. Sonido Bejarano LYMPH # 1.2 103/ul Normal 1.2-3.8 [facility] Comment on above: Performed By: #### C BC #### [facility] [address] [place] [address] Dr. Sonido Bejarano Lymphocytes/100 WBC (Bld) 22.8 % Normal 20.5-60.0 [facility] Comment on above: Performed By: #### C BC #### [facility] [address] [place] [address] Dr. Sonido Bejarano MANUAL DIFF REQ NO Normal [facility] Comment on above: Performed By: #### C BC #### [facility] [address] [place] [address] Dr. Sonido Bejarano MCH (RBC) [Entitic mass] 15.1 pg Critically low 25.9-34.0 [facility] Comment on above: Performed By: #### C BC #### [facility] [address] [place] [address] Dr. Sonido Bejarano MCHC (RBC) [Mass/Vol] 25.1 g/dL Critically low 29.9-35.2 [facility] Comment on above: Performed By: #### C BC #### [facility] [address] [place] [address] Dr. Sonido Bejarano MCV (RBC) [Entitic vol] 60.0 fL Critically low 80.0-94.0 [facility] Comment on above: Performed By: #### C BC #### [facility] [address] [place] [address] Dr. Sonido Bejarano MONO # 0.7 103/ul Normal 0.3-0.8 [facility] Comment on above: Performed By: #### C BC #### [facility] [address] [place] [address] Dr. Sonido Bejarano Monocytes/100 WBC (Bld) 12.5 % Critically high 1.7-12.0 [facility] Comment on above: Performed By: #### C BC #### [facility] [address] [place] [address] [address] Sonido Bejarano NEUT # 3.2 103/ul Normal 1.4-6.5 [facility] Comment on above: Performed By: #### C BC #### [facility] [address] [place] [address] [address] Sonido Bejarano Neutrophils/100 WBC (Bld) 62.2 % Normal 43.0-75.0 [facility] Comment on above: Performed By: #### C BC #### [facility] [address] [place] [address] Dr. Sonido Bejarano Platelet mean volume (Bld) [Entitic vol] 8.6 fL Critically low 9.5-13.5 [facility] Comment on above: Performed By: #### C BC #### [facility] [address] [place] [address] Dr. Sonido Bejarano PLT 345 103/ul Normal 150-450 [facility] Comment on above: Performed By: #### C BC #### [facility] [address] [place] [address] Dr. Soniod Bejarano RBC 5.38 106/ul Normal 4.70-6.10 [facility] Comment on above: Performed By: #### C BC #### [facility] [address] [place] [address] Dr. Sonido Bejarano WBC 5.2 103/ul Normal 4.0-11.0 [facility] Comment on above: Performed By: #### C BC #### [facility] [address] [place] [address] Dr. Sonido Bejarano CBC W MANUAL DIFFon 09-18-20 22 ANISOCYTOSIS 3+ Normal [facility] Comment on above: Performed By: #### C BCMAN #### [facility] [address] [place] [address] Dr. Sonido Bejarano ATYPICAL LYMPH # Normal [facility] Comment on above: Performed By: #### C BCMAN #### [facility] [address] [place], [place] [id number] Dr. Sonido Bejarano ATYPICAL LYMPH % Normal [facility] Comment on above: Performed By: #### C BCMAN #### [facility] [address] [place] [address] Dr. Sonido Bejarano BAND # Normal 0.0-0.3 [facility] Comment on above: Performed By: #### C BCMAN #### [facility] [address] [place] [address] Dr. Sonido Bejarano BAND % Normal 0-5 [facility] Comment on above: Performed By: #### C BCMAN #### [facility] [address] [place] [address] Dr. Sonido Bejarano BASOM # 0.00 103/ul Normal 0.00-0.10 [facility] Comment on above: Performed By: #### C BCMAN #### [facility] [address] [place] [address] Dr. Sonido Bejarano BASOM % 0.0 % Critically low 0.2-2.0 [facility] Comment on above: Performed By: #### C BCKATHERINE #### [facility] [address] [place] [address] Dr. Sonido Bejarano BLAST # Normal [facility] Comment on above: Performed By: #### C BCKATHERINE #### [facility] [address] [place] [address] Dr. Sonido Bejarano BLAST % Normal [facility] Comment on above: Performed By: #### C BCMAN #### [facility] [address] [place] [address] Dr. Sonido Bejarano CORRECTED WBC Normal 4.0-11.0 [facility] Comment on above: Performed By: #### C BCKATHERINE #### [facility] [address] [place] [address] Dr. Sonido Bejarano EOS # 0.08 103/ul Normal 0.00-0.70 [facility] Comment on above: Performed By: #### C BCMAN #### [facility] [address] [place] [address] Dr. Sonido Bejarano EOS% 2.0 % Normal 0.9-7.0 [facility] Comment on above: Performed By: #### C BCKATHERINE #### [facility] [address] [place] [address] [address] Sonido Bejarano HCT 31.1 % Critically low 42.0-54.0 [facility] Comment on above: Performed By: #### C BCMAN #### [facility] [address] [place] [address] [address] Sonido Bejarano HGB 8.3 g/dl Critically low 14.0-18.0 [facility] Comment on above: Performed By: #### C BCKATHERINE #### [facility] [address] [place] [address] [address] Sonido Bejarano HYPOCHROMASIA SLIGHT Normal [facility] Comment on above: Performed By: #### C BCKATHERINE #### [facility] [address] [place] [address] Dr. Sonido Bejarano LYMPHM # 1.13 103/ul Critically low 1.20-3.80 [facility] Comment on above: Performed By: #### C BCKATHERINE #### [facility] [address] [place] [address] [address] Sonido Bejarano LYMPHM% 27.0 % Normal 20.5-60.0 [facility] Comment on above: Performed By: #### C RAMILA #### [facility] [address] [place] [address] [address] Sonido Bejarano MCH 15.9 pg Critically low 25.9-34.0 [facility] Comment on above: Performed By: #### C BCKATHERINE #### [facility] [address] [place] [address] [address] Sonido Bejarano MCHC 26.7 g/dl Critically low 29.9-35.2 [facility] Comment on above: Performed By: #### C BCKATHERINE #### [facility] [address] [place] [address] [address] Sonido Bejarano MCV 59.5 fL Critically low 80.0-94.0 [facility] Comment on above: Performed By: #### C RAMILA #### [facility] [address] [place] [address] Dr. Sonido Bejarano METAMYELOCYTE # Normal [facility] Comment on above: Performed By: #### C RAMILA #### [facility] [address] [place] [address] Dr. Sonido Bejarano METAMYELOCYTE % Normal [facility] Comment on above: Performed By: #### C RAMILA #### [facility] [address] [place] [address] Dr. Sonido Bejarano MICROCYTOSIS 3+ Normal [facility] Comment on above: Performed By: #### C RAMILA #### [facility] [address] [place] [address] Dr. Sonido Bejarano MONOM# 0.55 103/ul Normal 0.30-0.80 [facility] Comment on above: Performed By: #### C RAMILA #### [facility] [address] [place] [address] Dr. Sonido Bejarano MONOM% 13.0 % Critically high 1.7-12.0 [facility] Comment on above: Performed By: #### C RAMILA #### [facility] [address] [place] [address] Dr. Sonido Bejarano MPV 9.7 fL Normal 9.5-13.5 [facility] Comment on above: Performed By: #### C RAMILA #### [facility] [address] [place] [address] Dr. Sonido Bejarano MYELOCYTE # Normal [facility] Comment on above: Performed By: #### C RAMILA #### [facility] [address] [place] [address] Dr. Sonido Bejarano MYELOCYTE % Normal [facility] Comment on above: Performed By: #### C RAMILA #### [facility] [address] [place] [address] Dr. Sonido Bejarano NRBC Normal [facility] Comment on above: Performed By: #### C RAMILA #### [facility] [address] [place] [address] Dr. Sonido Bejarano PLT 421 103/ul Normal 150-450 [facility] Comment on above: Performed By: #### C RAMILA #### [facility] [address] [place] [address] Dr. Sonido Bejarano RBC 5.23 106/ul Normal 4.70-6.10 [facility] Comment on above: Performed By: #### C OSWALDOMAN #### [facility] [address] [place] [address] Dr. Sonido Bejarano RDW 22.2 % Critically high 11.0-15.0 [facility] Comment on above: Performed By: #### C OSWALDOMAN #### [facility] [address] [place] [address] Dr. Sonido Bejarano SEG # 2.44 103/ul Normal 1.40-6.50 [facility] Comment on above: Performed By: #### C OSWALDOMAN #### [facility] [address] [place] [address] Dr. Sonido Bejarano SEG % 58.0 % Normal 43.0-75.0 [facility] Comment on above: Performed By: #### C OSWALDOMAN #### [facility] [address] [place] [address] Dr. Sonido Bejarano WBC 4.2 103/ul Normal 4.0-11.0 [facility] Comment on above: Performed By: #### C RAMILA #### [facility] [address] [place] [address] Dr. Sonido Bejarano CBC AUTO DIFFon 08-21-2022 BASO # 0.0 103/ul Normal 0.0-0.1 [facility] Comment on above: Performed By: #### C BC #### [facility] [address] [place] [address] Dr. Sonido Bejarano Basophils/100 WBC (Bld) 0.6 % Normal 0.2-2.0 [facility] Comment on above: Performed By: #### C BC #### [facility] [address] [place] [address] Dr. Sonido Bejarano EO # 0.1 103/ul Normal 0.0-0.7 [facility] Comment on above: Performed By: #### C BC #### [facility] [address] [place] [address] Dr. Sonido Bejarano Eosinophils/100 WBC (Bld) 1.0 % Normal 0.9-7.0 [facility] Comment on above: Performed By: #### C BC #### [facility] [address] [place] [address] Dr. Sonido Bejarano Erythrocyte distribution width (RBC) [Ratio] 21.9 % Critically high 11.0-15.0 [facility] Comment on above: Result Comment: anis ocytosis 2+ Performed By: #### C BC #### [facility] [address] [place] [address] Dr. Sonido Bejarano Hematocrit (Bld) [Volume fraction] 32.7 % Critically low 42.0-54.0 [facility] Comment on above: Performed By: #### C BC #### [facility] [address] [place] [address] Dr. Sonido Bejarano Hemoglobin (Bld) [Mass/Vol] 8.4 g/dL Critically low 14.0-18.0 [facility] Comment on above: Performed By: #### C BC #### [facility] [address] [place] [address] Dr. Sonido Bejarano IG # 0.01 10e3/ul Normal 0.00-0.03 [facility] Comment on above: Performed By: #### C BC #### [facility] [address] [place] [address] Dr. Sonido Bejarano IG % 0.2 % Normal 0.0-0.5 [facility] Comment on above: Performed By: #### C BC #### [facility] [address] [place] [address] Dr. Sonido Bejarano LYMPH # 1.1 103/ul Critically low 1.2-3.8 [facility] Comment on above: Performed By: #### C BC #### [facility] [address] [place] [address] Dr. Sonido Bejarano Lymphocytes/100 WBC (Bld) 22.3 % Normal 20.5-60.0 [facility] Comment on above: Performed By: #### C BC #### [facility] [address] [place] [address] Dr. Sonido Bejarano MANUAL DIFF REQ NO Normal [facility] Comment on above: Performed By: #### C BC #### [facility] [address] [place] [address] Dr. Sonido Bejarano MCH (RBC) [Entitic mass] 15.3 pg Critically low 25.9-34.0 [facility] Comment on above: Performed By: #### C BC #### [facility] [address] [place] [address] Dr. Sonido Bejarano MCHC (RBC) [Mass/Vol] 25.7 g/dL Critically low 29.9-35.2 [facility] Comment on above: Result Comment: hypo chromasia 2+ Performed By: #### C BC #### [facility] [address] [place] [address] Dr. Sonido Bejarano MCV (RBC) [Entitic vol] 59.6 fL Critically low 80.0-94.0 [facility] Comment on above: Result Comment: micr ocytosis 3+ Performed By: #### C BC #### [facility] [address] [place] [address] Dr. Sonido Bejarano MONO # 0.5 103/ul Normal 0.3-0.8 [facility] Comment on above: Performed By: #### C BC #### [facility] [address] [place] [address] Dr. Sonido Bejarano Monocytes/100 WBC (Bld) 10.8 % Normal 1.7-12.0 [facility] Comment on above: Performed By: #### C BC #### [facility] [address] [place] [address] Dr. Sonido Bejarano NEUT # 3.2 103/ul Normal 1.4-6.5 [facility] Comment on above: Performed By: #### C BC #### [facility] [address] [place] [address] Dr. Sonido Bejarano Neutrophils/100 WBC (Bld) 65.1 % Normal 43.0-75.0 [facility] Comment on above: Performed By: #### C BC #### [facility] [address] [place] [address] Dr. Sonido Bejarano Platelet mean volume (Bld) [Entitic vol] 9.5 fL Normal 9.5-13.5 [facility] Comment on above: Performed By: #### C BC #### [facility] [address] [place] [address] Dr. Sonido Bejarano PLT 415 103/ul Normal 150-450 [facility] Comment on above: Performed By: #### C BC #### [facility] [address] [place] [address] Dr. Sonido Bejarano RBC 5.49 106/ul Normal 4.70-6.10 [facility] Comment on above: Performed By: #### C BC #### [facility] [facility] [address] [place] [address] Dr. Sonido Bejarano WBC 5.0 103/ul Normal 4.0-11.0 [facility] Comment on above: Performed By: #### C BC #### [facility] [address] [place] [address] Dr. Sonido Bejarano CBC AUTO DIFFon 08-02-2022 BASO # 0.0 103/ul Normal 0.0-0.1 [facility] Comment on above: Performed By: #### C BC #### [facility] [address] [place] [address] Dr. Sonido Bejarano Basophils/100 WBC (Bld) 0.3 % Normal 0.2-2.0 [facility] Comment on above: Performed By: #### C BC #### [facility] [address] [place] [address] Dr. Sonido Bejarano EO # 0.0 103/ul Normal 0.0-0.7 [facility] Comment on above: Performed By: #### C BC #### [facility] [address] [place] [address] Dr. Sonido Bejarano Eosinophils/100 WBC (Bld) 0.7 % Critically low 0.9-7.0 [facility] Comment on above: Performed By: #### C BC #### [facility] [address] [place] [address] Dr. Sonido Bejarano Erythrocyte distribution width (RBC) [Ratio] 21.9 % Critically high 11.0-15.0 [facility] Comment on above: Performed By: #### C BC #### [facility] [address] [place] [address] Dr. Sonido Bejarano Hematocrit (Bld) [Volume fraction] 30.0 % Critically low 42.0-54.0 [facility] Comment on above: Performed By: #### C BC #### [facility] [address] [place] [address] Dr. Sonido Bejarano Hemoglobin (Bld) [Mass/Vol] 7.8 g/dL Critically low 14.0-18.0 [facility] Comment on above: Performed By: #### C BC #### [facility] [address] [place] [address] Dr. Sonido Bejarano IG # 0.01 10e3/ul Normal 0.00-0.03 [facility] Comment on above: Performed By: #### C BC #### [facility] [address] [place] [address] Dr. Sonido Bejarano IG % 0.2 % Normal 0.0-0.5 [facility] Comment on above: Performed By: #### C BC #### [facility] [address] [place] [address] Dr. Sonido Bejarano LYMPH # 1.0 103/ul Critically low 1.2-3.8 [facility] Comment on above: Performed By: #### C BC #### [facility] [address] [place] [address] Dr. Sonido Bejarano Lymphocytes/100 WBC (Bld) 18.0 % Critically low 20.5-60.0 [facility] Comment on above: Performed By: #### C BC #### [facility] [address] [place] [address] Dr. Sonido Bejarano MANUAL DIFF REQ NO Normal [facility] Comment on above: Performed By: #### C BC #### [facility] [address] [address] [address] Sonido Bejarano MCH (RBC) [Entitic mass] 15.9 pg Critically low 25.9-34.0 [facility] Comment on above: Performed By: #### C BC #### [facility] [address] [place] [address] Dr. Sonido Bejarano MCHC (RBC) [Mass/Vol] 26.0 g/dL Critically low 29.9-35.2 [facility] Comment on above: Performed By: #### C BC #### [facility] [address] [place] [address] Dr. Sonido Bejarano MCV (RBC) [Entitic vol] 61.2 fL Critically low 80.0-94.0 [facility] Comment on above: Performed By: #### C BC #### [facility] [address] [place] [address] Dr. Sonido Bejarano MONO # 0.5 103/ul Normal 0.3-0.8 [facility] Comment on above: Performed By: #### C BC #### [facility] [address] [place] [address] Dr. Sonido Bejarano Monocytes/100 WBC (Bld) 8.7 % Normal 1.7-12.0 [facility] Comment on above: Performed By: #### C BC #### [facility] [address] [place] [address] Dr. Sonido Bejarano NEUT # 4.1 103/ul Normal 1.4-6.5 [facility] Comment on above: Performed By: #### C BC #### [facility] [address] [place] [address] Dr. Sonido Bejarano Neutrophils/100 WBC (Bld) 72.1 % Normal 43.0-75.0 [facility] Comment on above: Performed By: #### C BC #### [facility] [address] [place] [address] Dr. Sonido Bejarano Platelet mean volume (Bld) [Entitic vol] 9.3 fL Critically low 9.5-13.5 [facility] Comment on above: Performed By: #### C BC #### [facility] [address] [place] [address] Dr. Sonido Bejarano PLT 339 103/ul Normal 150-450 [facility] Comment on above: Performed By: #### C BC #### [facility] [address] [place] [address] Dr. Sonido Bejarano RBC 4.90 106/ul Normal 4.70-6.10 [facility] Comment on above: Performed By: #### C BC #### [facility] [address] [place] [address] Dr. Sonido Bejarano WBC 5.7 103/ul Normal 4.0-11.0 [facility] Comment on above: Performed By: #### C BC #### [facility] [address] [place] [address] Dr. Sonido Bejarano CBC AUTO DIFFon 06-17-2022 BASO # 0.0 103/ul Normal 0.0-0.1 [facility] Comment on above: Performed By: #### C BC #### [facility] [address] [place] [address] Dr. Sonido Bejarano Basophils/100 WBC (Bld) 0.7 % Normal 0.2-2.0 [facility] Comment on above: Performed By: #### C BC #### [facility] [address] [place] [address] Dr. Sonido Bejarano EO # 0.3 103/ul Normal 0.0-0.7 [facility] Comment on above: Performed By: #### C BC #### [facility] [address] [place] [address] Dr. Sonido Bejarano Eosinophils/100 WBC (Bld) 5.3 % Normal 0.9-7.0 [facility] Comment on above: Performed By: #### C BC #### [facility] [address] [place] [address] Dr. Sonido Bejarano Erythrocyte distribution width (RBC) [Ratio] 22.1 % Critically high 11.0-15.0 [facility] Comment on above: Performed By: #### C BC #### [facility] [address] [address] [address] Sonido Bejarano Hematocrit (Bld) [Volume fraction] 32.2 % Critically low 42.0-54.0 [facility] Comment on above: Performed By: #### C BC #### [facility] [address] [address] [address] Sonido Bejarano Hemoglobin (Bld) [Mass/Vol] 8.2 g/dL Critically low 14.0-18.0 [facility] Comment on above: Performed By: #### C BC #### [facility] [address] [address] [address] Sonido Bejarano IG # 0.01 10e3/ul Normal 0.00-0.03 [facility] Comment on above: Performed By: #### C BC #### [facility] [address] [place] [address] Dr. Sonido Bejarano IG % 0.2 % Normal 0.0-0.5 [facility] Comment on above: Performed By: #### C BC #### [facility] [address] [address] [address] Sonido Bejarano LYMPH # 1.1 103/ul Critically low 1.2-3.8 [facility] Comment on above: Performed By: #### C BC #### [facility] [address] [address] [address] Sonido Bejarano Lymphocytes/100 WBC (Bld) 19.3 % Critically low 20.5-60.0 [facility] Comment on above: Performed By: #### C BC #### [facility] [address] [address] [address] Sonido Bejarano MANUAL DIFF REQ NO Normal [facility] Comment on above: Performed By: #### C BC #### [facility] [address] [place] [address] Dr. Sonido Bejarano MCH (RBC) [Entitic mass] 15.8 pg Critically low 25.9-34.0 [facility] Comment on above: Performed By: #### C BC #### [facility] [address] [address] [address] Sonido Bejarano MCHC (RBC) [Mass/Vol] 25.5 g/dL Critically low 29.9-35.2 [facility] Comment on above: Performed By: #### C BC #### [facility] [address] [address] [address] Sonido Bejarano MCV (RBC) [Entitic vol] 62.0 fL Critically low 80.0-94.0 [facility] Comment on above: Performed By: #### C BC #### [facility] [address] [address] [address] Sonido Bejarano MONO # 0.9 103/ul Critically high 0.3-0.8 [facility] Comment on above: Performed By: #### C BC #### [facility] [address] [place] [address] Dr. Sonido Bejarano Monocytes/100 WBC (Bld) 16.0 % Critically high 1.7-12.0 [facility] Comment on above: Performed By: #### C BC #### [facility] [address] [address] [address] Sonido Bejarano NEUT # 3.2 103/ul Normal 1.4-6.5 [facility] Comment on above: Performed By: #### C BC #### [facility] [address] [place] [address] Dr. Sonido Bejarano Neutrophils/100 WBC (Bld) 58.5 % Normal 43.0-75.0 [facility] Comment on above: Performed By: #### C BC #### [facility] [address] [address] [address] Sonido Bejarano Platelet mean volume (Bld) [Entitic vol] 9.3 fL Critically low 9.5-13.5 [facility] Comment on above: Performed By: #### C BC #### [facility] [address] [place] [address] Dr. Sonido Bejarano PLT 335 103/ul Normal 150-450 [facility] Comment on above: Performed By: #### C BC #### [facility] [address] [place] [address] Dr. Sonido Bejarano RBC 5.19 106/ul Normal 4.70-6.10 [facility] Comment on above: Performed By: #### C BC #### [facility] [address] [place] [address] Dr. Sonido Bejarano WBC 5.5 103/ul Normal 4.0-11.0 [facility] Comment on above: Performed By: #### C BC #### [facility] [address] [place] [address] Dr. Sonido Bejarano CBC AUTO DIFFon 05-15-2022 BASO # 0.0 103/ul Normal 0.0-0.1 [facility] Comment on above: Performed By: #### C BC #### [facility] [address] [place] [address] Dr. Sonido Bejarano Basophils/100 WBC (Bld) 0.8 % Normal 0.2-2.0 [facility] Comment on above: Performed By: #### C BC #### [facility] [address] [place] [address] Dr. Sonido Bejarano EO # 0.1 103/ul Normal 0.0-0.7 [facility] Comment on above: Performed By: #### C BC #### [facility] [address] [place] [address] Dr. Sonido Bejarano Eosinophils/100 WBC (Bld) 2.3 % Normal 0.9-7.0 [facility] Comment on above: Performed By: #### C BC #### [facility] [address] [place] [address] Dr. Sonido Bejarano Erythrocyte distribution width (RBC) [Ratio] 21.5 % Critically high 11.0-15.0 [facility] Comment on above: Performed By: #### C BC #### [facility] [address] [place] [address] Dr. Sonido Bejarano Hematocrit (Bld) [Volume fraction] 30.5 % Critically low 42.0-54.0 [facility] Comment on above: Performed By: #### C BC #### [facility] [address] [address] [address] Sonido Bejarano Hemoglobin (Bld) [Mass/Vol] 7.9 g/dL Critically low 14.0-18.0 [facility] Comment on above: Performed By: #### C BC #### [facility] [address] [place] [address] Dr. Sonido Bejarano IG # 0.01 10e3/ul Normal 0.00-0.03 [facility] Comment on above: Performed By: #### C BC #### [facility] [address] [place] [address] Dr. Sonido Bejarano IG % 0.2 % Normal 0.0-0.5 [facility] Comment on above: Performed By: #### C BC #### [facility] [address] [place] [address] Dr. Sonido Bejarano LYMPH # 1.3 103/ul Normal 1.2-3.8 [facility] Comment on above: Performed By: #### C BC #### [facility] [address] [place] [address] Dr. Sonido Bejarano Lymphocytes/100 WBC (Bld) 24.6 % Normal 20.5-60.0 [facility] Comment on above: Performed By: #### C BC #### [facility] [address] [place] [address] Dr. Sonido Bejarano MANUAL DIFF REQ NO Normal [facility] Comment on above: Performed By: #### C BC #### [facility] [address] [place] [address] Dr. Sonido Bejarano MCH (RBC) [Entitic mass] 15.6 pg Critically low 25.9-34.0 [facility] Comment on above: Performed By: #### C BC #### [facility] [address] [place] [address] Dr. Sonido Bejarano MCHC (RBC) [Mass/Vol] 25.9 g/dL Critically low 29.9-35.2 [facility] Comment on above: Performed By: #### C BC #### [facility] [address] [address] [address] Sonido Bejarano MCV (RBC) [Entitic vol] 60.4 fL Critically low 80.0-94.0 [facility] Comment on above: Performed By: #### C BC #### [facility] [address] [address] [address] Sonido Bejarano MONO # 0.6 103/ul Normal 0.3-0.8 [facility] Comment on above: Performed By: #### C BC #### [facility] [address] [address] [address] Sonido Bejarano Monocytes/100 WBC (Bld) 12.1 % Critically high 1.7-12.0 [facility] Comment on above: Performed By: #### C BC #### [facility] [address] [place] [address] Dr. Sonido Bejarano NEUT # 3.1 103/ul Normal 1.4-6.5 [facility] Comment on above: Performed By: #### C BC #### [facility] [address] [place] [address] Dr. Sonido Bejarano Neutrophils/100 WBC (Bld) 60.0 % Normal 43.0-75.0 [facility] Comment on above: Performed By: #### C BC #### [facility] [address] [place] [address] Dr. Sonido Bejarano Platelet mean volume (Bld) [Entitic vol] 9.6 fL Normal 9.5-13.5 [facility] Comment on above: Performed By: #### C BC #### [facility] [address] [place] [address] Dr. Sonido Bejarano PLT 399 103/ul Normal 150-450 [facility] Comment on above: Performed By: #### C BC #### [facility] [address] [place] [address] Dr. Sonido Bejarano RBC 5.05 106/ul Normal 4.70-6.10 [facility] Comment on above: Performed By: #### C BC #### [facility] [address] [place] [address] Dr. Sonido Bejarano WBC 5.1 103/ul Normal 4.0-11.0 [facility] Comment on above: Performed By: #### C BC #### [facility] [address] [place] [address] Dr. Sonido Bejarano CBC AUTO DIFFon 04-15-2022 BASO # 0.0 103/ul Normal 0.0-0.1 [facility] Comment on above: Performed By: #### C BC #### [facility] [address] [place] [address] Dr. Sonido Bejarano Basophils/100 WBC (Bld) 0.3 % Normal 0.2-2.0 [facility] Comment on above: Performed By: #### C BC #### [facility] [address] [place] [address] Dr. Sonido Bejarano EO # 0.1 103/ul Normal 0.0-0.7 [facility] Comment on above: Performed By: #### C BC #### [facility] [address] [place] [address] Dr. Sonido Bejarano Eosinophils/100 WBC (Bld) 1.0 % Normal 0.9-7.0 [facility] Comment on above: Performed By: #### C BC #### [facility] [address] [place] [address] Dr. Sonido Bejarano Erythrocyte distribution width (RBC) [Ratio] 21.2 % Critically high 11.0-15.0 [facility] Comment on above: Performed By: #### C BC #### [facility] [address] [place] [address] Dr. Sonido Bejarano Hematocrit (Bld) [Volume fraction] 32.2 % Critically low 42.0-54.0 [facility] Comment on above: Performed By: #### C BC #### [facility] [address] [place] [address] Dr. Sonido Bejarano Hemoglobin (Bld) [Mass/Vol] 8.3 g/dL Critically low 14.0-18.0 [facility] Comment on above: Performed By: #### C BC #### [facility] [address] [address] [address] Sonido Bejarano IG # 0.03 10e3/ul Normal 0.00-0.03 [facility] Comment on above: Performed By: #### C BC #### [facility] [address] [place] [address] Dr. Sonido Bejarano IG % 0.4 % Normal 0.0-0.5 [facility] Comment on above: Performed By: #### C BC #### [facility] [address] [place] [address] Dr. Sonido Bejarano LYMPH # 1.0 103/ul Critically low 1.2-3.8 [facility] Comment on above: Performed By: #### C BC #### [facility] [address] [place] [address] Dr. Sonido Bejarano Lymphocytes/100 WBC (Bld) 15.2 % Critically low 20.5-60.0 [facility] Comment on above: Performed By: #### C BC #### [facility] [address] [place] [address] Dr. Sonido Bejarano MANUAL DIFF REQ NO Normal [facility] Comment on above: Performed By: #### C BC #### [facility] [address] [place] [address] Dr. Sonido Bejarano MCH (RBC) [Entitic mass] 16.1 pg Critically low 25.9-34.0 [facility] Comment on above: Performed By: #### C BC #### [facility] [address] [place] [address] Dr. Sonido Bejarano MCHC (RBC) [Mass/Vol] 25.8 g/dL Critically low 29.9-35.2 [facility] Comment on above: Performed By: #### C BC #### [facility] [address] [place] [address] Dr. Sonido Bejarano MCV (RBC) [Entitic vol] 62.4 fL Critically low 80.0-94.0 [facility] Comment on above: Performed By: #### C BC #### [facility] [address] [place] [address] Dr. Sonido Bejarano MONO # 0.6 103/ul Normal 0.3-0.8 [facility] Comment on above: Performed By: #### C BC #### [facility] [address] [place] [address] Dr. Sonido Bejarano Monocytes/100 WBC (Bld) 8.5 % Normal 1.7-12.0 [facility] Comment on above: Performed By: #### C BC #### [facility] [address] [place] [address] Dr. Sonido Bejarano NEUT # 5.0 103/ul Normal 1.4-6.5 [facility] Comment on above: Performed By: #### C BC #### [facility] [address] [place] [address] Dr. Sonido Bejarano Neutrophils/100 WBC (Bld) 74.6 % Normal 43.0-75.0 [facility] Comment on above: Performed By: #### C BC #### [facility] [address] [place] [address] Dr. Sonido Bejarano Platelet mean volume (Bld) [Entitic vol] 9.9 fL Normal 9.5-13.5 [facility] Comment on above: Performed By: #### C BC #### [facility] [address] [place] [address] Dr. Sonido Bejarano PLT 355 103/ul Normal 150-450 [facility] Comment on above: Performed By: #### C BC #### [facility] [address] [place] [address] Dr. Sonido Bejarano RBC 5.16 106/ul Normal 4.70-6.10 [facility] Comment on above: Result Comment: 1+ o valocytes slight hypochromic slight microchromic Performed By: #### C BC #### [facility] [address] [place] [address] Dr. Sonido Bejarano WBC 6.7 103/ul Normal 4.0-11.0 [facility] Comment on above: Performed By: #### C BC #### [facility] [address] [place] [address] Dr. Sonido Bejarano ANES POSTPROC EVALon 021 ANES POSTPROC EVAL HNO ID: [id number] Author: Michael Martínez MD Service: Anesthesiology Author Type: Anesthesiologist Type: Anesthesia Postprocedure Evaluation Filed: 10/17/2021 10:23 AM Note Text: POST ANESTHESIA EVALUATION NOTE : 2000 Procedure Summary Date: 10/17/21 Room / Location: [address] Anesthesia Start: 841 Anesthesia Stop: 913 [...] October 17, 2021 TIME: 10:23 AM CSN: [id number] [facility] ANES PRE-OPon 10-17-2021 ANES PRE-OP HNO ID: [id number] Author: Michael Martínez MD Service: Anesthesiology Author Type: Anesthesiologist Type: Anesthesia Preprocedure Evaluation Filed: 10/17/2021 8:32 AM Note Text: ANESTHESIOLOGY DAY OF SURGERY NOTE : 2000 Procedure Information Date/Time: 10/17/21729 Procedure: HEMORRHOIDECTOMY EXTERNAL > 2 COLUMNS/GROUPS (N/A ) Location: [address] Surgeons: Arnold Genao MD Estimated body [...] (97.2 ?F) 10/17/21 06 SpO2 100 % 10/17/21654 Facility-Administered Medications as [...] October 17, 2021 TIME: 8:27 AM CSN: [id number] [facility] BRIEF OP NOTon 10-17-2021 BRIEF OP NOT HNO ID: [id number] Author: Jared Rowe MD Service: Colorectal Author Type: Resident Type: Brief Op Note Filed: 10/17/2021 9:15 AM Note Text: BRIEF OPERATIVE / PROCEDURE NOTE LOG ID: [id number] SURGERY/PROCEDURE DATE: 10/17/2021 INCISION/PROCEDURE START TIME: 8:55 AM INCISION CLOSE/PROCEDURE END TIME: 9:02 AM SURGEON(S)/PROCEDURALI ST(S) AND COMPUTER SYSTEMS ENGINEER(S): Surgeon(s) and Role: * Arnold Genao [...] October 17, 2021 TIME: 9:13 AM Normal [facility] HISTORY PHYSICALon HISTORY PHYSICAL HNO ID: [id number] Author: Jared Rowe MD Service: Colorectal Author [...] 17, 2021 TIME: 7:22 AM Normal [facility] OPERATIVE NOon 10-17-2021 OPERATIVE NO HNO ID: [id number] Author: Arnold Genao MD Service: Colorectal Author Type: Physician Type: Operative Report Filed: 10/30/2021 11:21 AM Note Text: [facility] - Operative Report RJ COLBERT : 2000 AGE: 21. SEX: M PATIENT TYPE[facility]: [facility] LOCATION: [facility] ATTENDING PHYSICIAN: Arnold Genao M.D. CSN NUMBER: [id number] DATE OF SURGERY/PROCEDURE: 10/17/2021 INCISION/PROCEDURE START TIME: 8:55 AM INCISION CLOSE/PROCEDURE END TIME: 9:02 AM PREOPERATIVE DIAGNOSIS: Hemorrhoids. POSTOPERATIVE DIAGNOSIS: Hemorrhoids. SURGEON: Arnold Genao M.D. COMPUTER SYSTEMS ENGINEER: Jared. SURGERY/PROCEDURE: Ablation. ANESTHESIA: General ESTIMATED [...] was overall very minor. Arnold Genao M.D. BC:[id number] /[id number] Normal [facility] OPERATIVE NOon 07-17-2021 OPERATIVE NO HNO ID: [id number] Author: Arnold Genao MD Service: Colorectal Author Type: Physician Type: Operative Report Filed: 08/01/2021 1:12 PM Note Text: [facility] - Operative Report RJ COLBERT : 2000 AGE: 21. SEX: M PATIENT TYPE: [facility]: [facility] LOCATION: [facility] ATTENDING PHYSICIAN: Arnold Genao M.D. CSN NUMBER: [id number] DATE OF SURGERY/PROCEDURE: 07/12/2021 INCISION/PROCEDURE START TIME: 10:55 AM INCISION CLOSE/PROCEDURE END TIME: 10:58 AM PREOPERATIVE DIAGNOSIS: Rectal bleeding. POSTOPERATIVE DIAGNOSIS: Rectal bleeding. SURGEON: Arnold Genao M.D. COMPUTER SYSTEMS ENGINEER: None. SURGERY/PROCEDURE: Rubber-band ligation hemorrhoidectomy. ANESTHESIA: General DESCRIPTION OF PROCEDURE: The patient was brought to the operating room, this was actually done on Janis 16. He was brought to the operating room [...] room in good condition. Arnold Genao M.D. BC:[id number] /[id number] Normal [facility] ANES POSTPROC EVALon 021 ANES POSTPROC EVAL HNO ID: [id number] Author: Jared Arriaga MD Service: Anesthesiology Author Type: Anesthesiologist Type: Anesthesia Postprocedure Evaluation Filed: 07/12/2021 12:05 PM Note Text: POST ANESTHESIA EVALUATION NOTE : 2000 Procedure Summary Date: 07/12/21 Room / Location: [address] Anesthesia Start: 1044 Anesthesia Stop: 1110 [...] July 12, 2021 TIME: 12:05 PM CSN: [id number] [facility] ANES PRE-OPon 07-12-2021 ANES PRE-OP HNO ID: [id number] Author: Jared Arriaga MD Service: Anesthesiology Author [...] July 12, 2021 TIME: 9:18 AM CSN: [id number] [facility] HISTORY PHYSICALon HISTORY PHYSICAL HNO ID: [id number] Author: Arnold Genao MD Service: Colorectal Author [...] July 12, 2021 TIME: 10:39 AM Normal [facility] Coding Summary.on 05-01-2018 Coding Summary. CODING DATE: 05/01/2018 FINAL [facility] STATUS: Home (Routine DC) PAYOR: Medicaid EA [...] PROC EAPG STAT DESCRIPTION DOCTOR NAME DATE 41470 0149 Colonoscopy, flexible; Colin Shirley MD 04/17/2018 with biopsy, single or multiple 74 Discontinued [facility] Procedure After Administration of Anesthe 38363 Anesthesia for lower Colin Shirley MD 04/17/2018 intestinal endoscopic procedures, endoscope introduced distal to duodenum; not otherwise specified NOTE: The code number assigned matches the documented diagnosis and / or procedure in the patient's chart. However, the narrative phrase printed from the coding software may appear abbreviated, or result in slightly different terminology. Coded By: Sary Little Date Saved: 05/01/2018 08:02 am Normal [facility] Coding Summary. CODING DATE: 04/23/2018 FINAL [facility] STATUS: Home (Routine DC) PAYOR: Medicaid EAPG [...] PROC EAPG STAT DESCRIPTION DOCTOR NAME DATE 72867 0149 Colonoscopy, flexible; Colin Shirley MD 04/17/2018 with biopsy, single or multiple 74 Discontinued [facility] Procedure After Administration of Anesthe 22970 Anesthesia for Colin Peñaloza MD 04/17/2018 intestinal endoscopic procedures, endoscope introduced distal to duodenum; not otherwise specified NOTE: The code number assigned matches the documented diagnosis and / or procedure in the patient's chart. However, the narrative phrase printed from the coding software may appear abbreviated, or result in slightly different terminology. Coded By: Sary Little Date Saved: 04/23/2018 11:46 am Normal [facility] Progress Note-Physicianon Progress Note-Physician Patient: RJ COLBERT Age: 17 years Sex: Male : 2000 Associated Diagnoses: None Author: Quincy Ojeda Jr, DO Preoperative Information Anesthesia results Review of Systems Cardiovascular: Negative. Respiratory: Negative. Health Status Allergies: Allergic Reactions (Selected)No Known Medication Allergies Current medications: (Selected) Documented MedicationsDocumentedC olace: 100 mg, Oral, Daily, Refills(s) 0, Constipationbenztropin e: 2 mg, Oral, BID, Refills(s) 0, Spasmclonazepam: [...] Cardiovascular: Regular rhythm. Neurologic: Alert, Oriented. Plan [place] [employer]esthesiologists (ASA) physical status classification: Class II. Anesthetic Preoperative Plan Anesthesia: General. . Anesthetic plan, risks, benefits, and alternatives discussed with the patient and/or family. Communication: face to face with (patient 5 minutes, Patient educated on smoking cesstation). Normal [facility] Comment on above: Result Comment: Elec tronically Signed By: Quincy Ojeda Jr, DO\\.br\\Date and Time Signed: 04/28/18 08:15 EDT Main OR Intraoperative Recor don 04-20-2018 Main OR Intraoperative Record IntraOp Document Type FT Summary Primary Physician: Colin Shirley MD Finalized Date/Time: 04/20/18 09:38:35 Pt. Name: RJ COLBERT /Sex: 2000 Male Med Rec #: [id number] Physician: Colin Shirley MD Financial #: [id number] Pt. Type: O Room/Bed: / Admit/Disch: 04/17/18 09:21:54 - 04/17/18 23:59:59 Institution: Case Times FT Entry 1 Patient Times In Room 04/17/18 13:14:00 Out Room 04/17/18 13:32:00 Procedure Times Start 04/17/18 13:18:00 Stop 04/17/18 13:29:00 Anesthesia Times Start 04/17/18 13:14:00 Stop 04/17/18 13:32:00 Last Modified By: Addie Oreilly CST 04/17/18 13:32:23 General Comments: 04/20/2018 Chart opened to review and send charges Marika Pineda [employer] Case Attendance FT Entry 1 Entry 2 Entry 3 Case Attendee Casper GAUTAM, Colin Rene RN, Tori Felix CST Role Performed Surgeon - Primary Tobacco Wetter - Primary Scrub - Primary Time In 04/17/18 13:14:00 04/17/18 13:14:00 04/17/18 13:14:00 Time Out 04/17/18 13:32:00 04/17/18 13:32:00 04/17/18 13:32:00 Procedure COLONOSCOPY(.) COLONOSCOPY(.) COLONOSCOPY(.) Comments Last Modified By: Anju RN, Ashlee Rene RN, Ashlee Jeffers RN 04/17/18 13:32:29 04/17/18 13:32:29 04/17/18 13:32:29 Entry 4 Entry 5 Entry 6 Case Attendee Mascotte Henry [place], Zenaida Mortensen CAA, Magi Garrett Role Performed Scrub - Other Scrub - Other Anesthesiologist Photographic Process Worker Time In 04/17/18 13:14:00 04/17/18 13:14:00 04/17/18 [...] Shirley MD, Given Participants Anju TREVINO, Ashlee, Fsetus CAA, Yvonne Briggs, Oliver ZARATE, Tori [facility], Jelani Bess Kirstyn K Time Out [...] and tissue Entry 1 Skin Integrity Intact, Kildeer, Warm, and Skin Abnormality No Dry Outcomes [...] RN Patient Status Stable Skin. Condition Intact, [place], Warm, and Dry Airway Maintenance Oxygen in Use? No Airway Device N/A Outcomes Met? Yes Last Modified By: Ashlee Rene RN 04/17/18 07:23:58 Post-Care Text: The patient is free from signs and symptoms of injury related to transfer/transport General Comments: REPORT GIVEN TO PROGRAM SUPERVISOR/ AW frame coverer Administration FT Pre-Care Text: Verifies allergies, administers prescribed medications and solutions, administers prescribed antibiotic therapy and immunizing agents as ordered, evaluates response to medications Administers prescribed medications and solutions Entry 1 Expiration Date Yes Outcomes Met? Yes Verified Last Modified By: Ashlee Rene RN 04/17/18 07:24:05 Post-Care Text: The patient received appropriate medication(s) safely administered during the perioperative period For [facility] please see scanned medication reconcilliation form for [...] 13:32 Addie Oreilly CST 04/20/18 09:38 Normal [facility] History and Physicalon 04-17 History and Physical Date: 03/10/2018 2:1 5 PMPatient Name: Rj ColbertAccount #: [id number]: MaleDOB (age): 2000 (17)Provider: Annie Benton Complaint: Change in Bowel habits Blood in StoolHistory of Present Illness:17 years old -[place] male with multiple psychiatric problems, lives in [...] twice a dayAllergies: Patient has no known allergiesImmunizations : No ImmunizationsSocial HistoryAlcohol: NoneTobacco: Never smokerDrugs: NoneExercise: NoneCaffeine: NoneMarital Status: SingleFamily History No Knowledge Of Family HistoryReview of Systems:Allergic/Immun ologic: Denies strong allergic reactions or urticaria, HIV exposure, Immune Deficiency, persistentinfections.C ardiovascular: Denies chest pain, dyspnea with exercise, irregular heart beat, orthopnea, palpitations,periphera l edema, syncope.Constitutional : Denies fatigue, fever, loss of appetite, malaise, sweats, weight gain, Arthritis, weight loss,exhaustion, chills.ENMT: Denies difficulty swallowing, dizziness, ear pain, nasal obstruction, nose bleeds, sore throat, eardischarge, frequent infections, hearing loss, high pitched ringing, hoarseness, nasal discharge.Endocrine: Denies cold intolerance, excessive eating, excessive thirst, excessive urination, hair loss, heatintolerance.Eyes: Denies double vision, loss of vision, photophobia, blurred vision, pain, wearing glasses/contacts.Gastr ointestinal: Complains of black stools, bloating, blood in stools, change in bowel habits,constipation, diarrhea, rectal bleeding, rectal urgency, stool incontinence, stomachPrinted on 04/10/2018 Rj Colbert, [id number], 2000 Page 1 of 4Printed on 04/10/2018 Rj Colbert, [id number], 1998cramps, straining. Denies abdominal pain, abdominal swelling, gas, heartburn, jaundice,nausea, vomiting.Genitourinary : Denies dark urine, decrease in urine flow, dysuria, frequent urinary infections, frequenturination, hematuria, impotence, nocturia, urethral discharge or incontinence, sexual difficulty,sexual transmitted diseases, kidney disease, kidney stones, pain with urination.Hematologic/ Lymphatic: Denies bleeding gums or palpable lymph nodes, easy bruising, prolonged bleeding, swollenglands.Integume ntary: Denies allergies, dryness, hives, itching, jaundice, lesions, rashes.Musculoskeletal : Denies arthritis, back pain, gout, joint deformity, joint pain, muscle weakness, stiffness, jointswelling, muscle pain.Neurological: Denies dizziness, fainting, frequent headaches, migraine, numbness or tingling, seizures,tremors, vertigo, memory disturbance.Psychiatri c: Denies anxiety, depression, difficulty sleeping, hallucinations, nervousness, panic attacks,paranoia, abnormal stress, inability to concentrate, suicidal ideation.Respiratory: Denies asthma, cough, dyspnea, excessive sputum, hemoptisis, shortness of breath withexercise, wheezing, coughing up blood.Vital Signs:BP(mmHg)Pulse(pp m)Rhythm Weight (lbs/oz) Resp/min Ybor595/68 82 Regular 191 / 12 98.3 (F)Physical Exam:Constitutional:Ap pearance: well developed, well nourished, normal habitus, no deformities, in no acute distress..Skin:Inspect ion: no rashes, ulcers, icterus or other lesions; no clubbing or telangiectasias..Palpa tion: no induration or subcutaneos nodules..Eyes:Conjunct ivae/lids: normal conjunctivae and lids..Pupils/irises: symmetrical, normoreactive to light, normal accommodation and size..ENMT:Hearing: within normal limits.Lips/teeth/gums : normal oral mucosa,lips and gums; good dentition.Neck:Neck: normal motion, central trachea.Respiratory:Pe rcussion: thorax normoresonant.Ausculta tion: normal breath sounds; no rubs, wheezes, rale or ronchi.Cardiovascular: Auscultation: normal rhythm, S1 and S2; no rubs, murmurs or gallop.Peripheral: no edema, varicocities or cyanosis..Gastrointest inal/Abdomen:Abdomen: normal consistency and bowel sounds; no tenderness or masses..Liver/Spleen: normal size and consistency, not palpable.Hernias: no hernias appreciated.Rectal: deferred.Musculoskelet al:Gait/station: normal gait and station.Digits/nails: no clubbing, cyanosis, petechiae or other inflammatory conditions.Psychiatric :Judgment/insight: within normal limits.Orientation: oriented to time, space and person.Memory: within normal limits for recent and remote events.Mood and affect: no evidence of depression, anxiety or agitation.Impressions: Rectal hemorrhageConstipation Plan: Colonoscopy will be performed at [facility] .Printed on 04/10/2018 Rj Colbert, , 2000 Page 2 of 4Printed on 04/10/2018 Rj Colbert, [id number], 2000Risk & Medical Necessity: Diagnosis and management options are Extensive. The amount of data reviewedand/or ordered is Moderate. The level of risk is Moderate.Colin Shirley MD Rj Colbert, , 2000 Page 3 of 4Printed on 04/10/2018 Rj Colbert , 2000Printed on 04/10/2018 Rj Colbert, 21991, 2000 Page 4 of 4Printed on 04/10/2018 Rj Colbert, , 1998no change Normal [facility] Comment on above: Result Comment: Elec tronically Signed By: Colin Shirley MD\\.br\\Date and Time Signed: 04/17/18 13:15 EDT Inpatient Patient Summaryon 04-17-2018 In[facility] Dis[facility] InstructionsPERSON INFORMATION Name: RJ COLBERT PHYSICIANS Admitting Physician: Ronnell Shirley MDttending Physician: Colin Shirley MD PCP: Murphy WEISS MD Diagnosis: Rectal prolapse Comment: PATIENT EDUCATION INFORMATIONInstruction s:Medication Leaflets:Follow up:With: Address: When: Colin Shirley [facility], [address], [place] [id number] Business (1) Within 1 to 2 weeks MEDICATION LISTComment: Normal [facility] Main OR PACU I Recordon 03-28 Main OR PACU I Record PACU Phase I Docum ent Type FT Summary Primary Physician: Colin Shirley MD Finalized Date/Time: 04/17/18 14:14:33 Pt. Name: RJ COLBERT /Sex: 2000 Male Med Rec #: [id number] Physician: Colin Shirley MD Financial #: [id number] Pt. Type: O Room/Bed: / Admit/Disch: 04/17/18 [...] Signed By: Essie Guzman RN 04/17/18 14:14 [facility] Main OR Preoperative Recordo n 04-17-2018 Main OR Preoperative Record Holding Area Document Type FT Summary Primary Physician: Colin Shirley MD Finalized Date/Time: 04/17/18 09:56:12 Pt. Name: RJ COLBERT D.O.B./Sex: 2000 Male Med Rec #: [id number] Physician: Colin Shirley MD Financial #: [id number] Pt. Type: O Room/Bed: / Admit/Disch: 04/17/18 [...] 04/17/18 09:56:10 General Comments: [place] [address] to hospital, informed dr ojeda, placed at the Finalized By: Viki James RN Document Signatures Signed By: Viki James RN 04/17/18 09:56 Normal [facility] Patient Education - Texton 0 04-17-2018 Patient Education - Text [facility] Coding Summary.on 04-02-2018 Coding Summary. CODING DATE: 04/02/2018 FINAL [facility] STATUS: Home (Routine DC) PAYOR: Medicaid EAPG [...] PROC EAPG STAT DESCRIPTION DOCTOR NAME DATE 21348 0133 Sigmoidoscopy, flexible; Colin Shirley MD 03/30/2018 with biopsy, single or multiple 74 Discontinued [facility] Procedure After Administration of Anesthe 47010 Anesthesia for lower Colin Shirley MD 03/30/2018 intestinal endoscopic procedures, endoscope introduced distal to duodenum; not otherwise specified NOTE: The code number assigned matches the documented diagnosis and / or procedure in the patient's chart. However, the narrative phrase printed from the coding software may appear abbreviated, or result in slightly different terminology. Coded By: Sary Little Date Saved: 04/02/2018 04:16 pm Normal [facility] Progress Note-Physicianon Progress Note-Physician Patient: RJ COLBERT Age: 17 years Sex: Male : 2000 Associated Diagnoses: None Author: Quincy Ojeda Jr, DO Preoperative Information Anesthesia results Review of Systems Cardiovascular: Negative. Respiratory: Negative. Health Status Allergies: Allergic Reactions (Selected)No Known Medication Allergies Current medications: (Selected) Inpatient MedicationsOrderedSodi um Chloride 0.9% IV Madonna 1000 mL 1,000 mL: 1,000 mL, IV, 20 mL/hr, Routine, Start date 03/30/18 9:43:00 EDT, 50 hour(s), Total volume (mL): 1,000Documented MedicationsDocumentedC olace: 100 mg, Oral, Daily, Refills(s) 0, Constipationbenztropin e: 2 mg, Oral, BID, Refills(s) 0, Spasmclonazepam: [...] Cardiovascular: Regular rhythm. Neurologic: Alert, Oriented. Plan [place] [employer] Anesthesiologists (ASA) physical status classification: Class II. Anesthetic Preoperative Plan Anesthesia: General. . Anesthetic plan, risks, benefits, and alternatives discussed with the patient and/or family. Communication: face to face with (patient 5 minutes, Patient educated on smoking cesstation). Normal [facility] Comment on above: Result Comment: Elec tronically Signed By: Rusty Fagan DO, Quincy Gregory\\.br\\Date and Time Signed: 04/01/18 07:53 EDT History and Physicalon 03-30 History and Physical Date: 03/10/2018 2:1 5 PMPatient Name: Rj Lepe #: [id number]: MaleDOB (age): 2000 (17)Provider: Annie Benton Complaint: Change in Bowel habits Blood in StoolHistory of Present Illness:17 years old -[place] male with multiple psychiatric problems, lives in [...] twice a dayAllergies: Patient has no known allergiesImmunizations : No ImmunizationsSocial HistoryAlcohol: NoneTobacco: Never smokerDrugs: NoneExercise: NoneCaffeine: NoneMarital Status: SingleFamily History No Knowledge Of Family HistoryReview of Systems:Allergic/Immun ologic: Denies strong allergic reactions or urticaria, HIV exposure, Immune Deficiency, persistentinfections.C ardiovascular: Denies chest pain, dyspnea with exercise, irregular heart beat, orthopnea, palpitations,periphera l edema, syncope.Constitutional : Denies fatigue, fever, loss of appetite, malaise, sweats, weight gain, Arthritis, weight loss,exhaustion, chills.ENMT: Denies difficulty swallowing, dizziness, ear pain, nasal obstruction, nose bleeds, sore throat, eardischarge, frequent infections, hearing loss, high pitched ringing, hoarseness, nasal discharge.Endocrine: Denies cold intolerance, excessive eating, excessive thirst, excessive urination, hair loss, heatintolerance.Eyes: Denies double vision, loss of vision, photophobia, blurred vision, pain, wearing glasses/contacts.Gastr ointestinal: Complains of black stools, bloating, blood in stools, change in bowel habits,constipation, diarrhea, rectal bleeding, rectal urgency, stool incontinence, stomachPrinted on 03/26/2018 Rj Colbert, 25916, 2000 Page 1 of 4Printed on 03/26/2018 Rj Colbert, 67746, 1998cramps, straining. Denies abdominal pain, abdominal swelling, gas, heartburn, jaundice,nausea, vomiting.Genitourinary : Denies dark urine, decrease in urine flow, dysuria, frequent urinary infections, frequenturination, hematuria, impotence, nocturia, urethral discharge or incontinence, sexual difficulty,sexual transmitted diseases, kidney disease, kidney stones, pain with urination.Hematologic/ Lymphatic: Denies bleeding gums or palpable lymph nodes, easy bruising, prolonged bleeding, swollenglands.Integume ntary: Denies allergies, dryness, hives, itching, jaundice, lesions, rashes.Musculoskeletal : Denies arthritis, back pain, gout, joint deformity, joint pain, muscle weakness, stiffness, jointswelling, muscle pain.Neurological: Denies dizziness, fainting, frequent headaches, migraine, numbness or tingling, seizures,tremors, vertigo, memory disturbance.Psychiatri c: Denies anxiety, depression, difficulty sleeping, hallucinations, nervousness, panic attacks,paranoia, abnormal stress, inability to concentrate, suicidal ideation.Respiratory: Denies asthma, cough, dyspnea, excessive sputum, hemoptisis, shortness of breath withexercise, wheezing, coughing up blood.Vital Signs:BP(mmHg)Pulse(pp m)Rhythm Weight (lbs/oz) Resp/min Ctsu659/68 82 Regular 191 / 12 98.3 (F)Physical Exam:Constitutional:Ap pearance: well developed, well nourished, normal habitus, no deformities, in no acute distress..Skin:Inspect ion: no rashes, ulcers, icterus or other lesions; no clubbing or telangiectasias..Palpa tion: no induration or subcutaneos nodules..Eyes:Conjunct ivae/lids: normal conjunctivae and lids..Pupils/irises: symmetrical, normoreactive to light, normal accommodation and size..ENMT:Hearing: within normal limits.Lips/teeth/gums : normal oral mucosa,lips and gums; good dentition.Neck:Neck: normal motion, central trachea.Respiratory:Pe rcussion: thorax normoresonant.Ausculta tion: normal breath sounds; no rubs, wheezes, rale or ronchi.Cardiovascular: Auscultation: normal rhythm, S1 and S2; no rubs, murmurs or gallop.Peripheral: no edema, varicocities or cyanosis..Gastrointest inal/Abdomen:Abdomen: normal consistency and bowel sounds; no tenderness or masses..Liver/Spleen: normal size and consistency, not palpable.Hernias: no hernias appreciated.Rectal: deferred.Musculoskelet al:Gait/station: normal gait and station.Digits/nails: no clubbing, cyanosis, petechiae or other inflammatory conditions.Psychiatric :Judgment/insight: within normal limits.Orientation: oriented to time, space and person.Memory: within normal limits for recent and remote events.Mood and affect: no evidence of depression, anxiety or agitation.Impressions: Rectal hemorrhageConstipation Plan: Colonoscopy will be performed at [facility] .Printed on 03/26/2018 Rj Colbert 53578, 2000 Page 2 of 4Printed on 03/26/2018 Rj Colbert, 82639, 2000Risk & Medical Necessity: Diagnosis and management options are Extensive. The amount of data reviewedand/or ordered is Moderate. The level of risk is Moderate.Colin Shirley MD jR Colbert, 85193, 2000 Page 3 of 4Printed on 03/26/2018 Rj Colbert, 02905, 1998Printed on 03/26/2018 Rj Colbert, 29932, 2000 Page 4 of 4Printed on 03/26/2018 Rj Colbert, 27598, 1998No change [facility] Comment on above: Result Comment: Elec tronically Signed By: Colin Shirley MD\\.br\\Date and Time Signed: 03/30/18 10:52 EDT Inpatient Patient Summaryon 03-30-2018 Inpatient [facility] Dis[facility] InstructionsPERSON INFORMATION Name: RJ COLBERT PHYSICIANS Admitting Physician[facility] Phys[facility]: Colin Shirley MD PCP: Murphy WEISS MD Diagnosis: Internal hemorrhoids Comment: PATIENT EDUCATION INFORMATIONInstruction s:Medication Leaflets:Follow up:With: Address: When: Colin Shirley [facility], [address] [place], [place] [id number] Business (1) Within 1 to 2 weeks MEDICATION LISTComment: [facility] Main OR Intraoperative Recor don 03-30-2018 Main OR Intraoperative Record IntraOp Document Type FT Summary Primary Physician: Colin Shirley MD Finalized Date/Time: 03/30/18 11:37:17 Pt. Name: RJ COLBERT /Sex: 2000 Male Med Rec #: [id number] Physician: Colin Shirley MD Financial #: [id number] Pt. Type: O Room/Bed: / Admit/Disch: 03/30/18 09:32:43 - Institution: Case Times FT Entry 1 Patient Times In Room 03/30/18 10:56:00 Out Room 03/30/18 11:13:00 Procedure Times Start 03/30/18 10:59:00 Stop 03/30/18 11:09:00 Anesthesia Times Start 03/30/18 10:56:00 Stop 03/30/18 11:13:00 Last Modified By: Addie Oreilly CST 03/30/18 11:14:43 General Comments: 03/30/2018 Chart opened to review and send charges Marika Pineda B[employer]ER AND WRAPPER PACKER Case Attendance FT Entry 1 Entry 2 Entry 3 Case Attendee Rusty Fagan DO, Quincy Miller RN, Francy Boyd CST, Tori Role Performed Anesthesiologist of Tobacco Wetter - Primary Scrub - Primary Record Time In 03/30/18 10:56:00 03/30/18 10:56:00 03/30/18 10:56:00 Time Out 03/30/18 11:13:00 03/30/18 11:13:00 03/30/18 11:13:00 Procedure COLONOSCOPY(.) COLONOSCOPY(.) COLONOSCOPY(.) Comments Last Modified By: Paul RN, Francy Miller RN, Francy Miller RN, Francy Gregory 03/30/18 11:14:48 03/30/18 11:14:48 03/30/18 11:14:48 Entry 4 Entry 5 Case Attendee Casper GAUTAM, [facility] Role Performed Surgeon - Primary [...] Given Participants Francy Miller RN, Colin Shirley MD, [facility], Oliver Bess CST, Tori Time Out [...] and tissue Entry 1 Skin Integrity Intact, [place]ildeer, Warm, and Skin Abnormality No Dry Outcomes [...] RN Patient Status Stable Skin. Condition Intact, [place], Warm, and Dry Airway Maintenance Oxygen in Use? No Airway Device N/A Outcomes Met? Yes Last Modified By: Francy Miller RN 03/30/18 07:37:17 Post-Care Text: The patient is free from signs and symptoms of injury related to transfer/transport General Comments: Report given to PACU,RN./TE,frame coverer Administration FT Pre-Care Text: Verifies allergies, administers prescribed medications and solutions, administers prescribed antibiotic therapy and immunizing agents as ordered, evaluates response to medications Administers prescribed medications and solutions Entry 1 Expiration Date Yes Outcomes Met? Yes Verified Last Modified By: Francy Milelr RN 03/30/18 07:37:26 Post-Care Text: The patient received appropriate medication(s) safely administered during the perioperative period For [facility] please see scanned medication reconcilliation form for [...] 11:14 Addie Oreilly CST 03/30/18 11:37 Normal [facility] Main OR PACU I Recordon Main OR PACU I Record PACU Phase I Docum ent Type FT Summary Primary Physician: Colin Shirley MD Finalized Date/Time: 03/30/18 11:29:28 Pt. Name: RJ COLBERT/Sex: 2000 Male Med Rec #: [id number] Physician: Colin Shirley MD Financial #: [id number] Pt. Type: O Room/Bed: / Admit/Disch: 03/30/18 [...] By: Essie Guzman RN 03/30/18 11:29 Normal [facility] Main OR Preoperative Recordo n 03-30-2018 Main OR Preoperative Record Holding Area Document Type FT Summary Primary Physician: Colin Shirley MD Finalized Date/Time: 03/30/18 10:16:59 Pt. Name: RJ COLBERT /Sex: 2000 Male Med Rec #: [id number] Physician: Colin Shirley MD Financial #: [id number] Pt. Type: O Room/Bed: / Admit/Disch: 03/30/18 [...] No Patient states Yes Comment - Adult [facility]- care provider postop adult Supervision supervision available Case Cancelled in No Holding Area see comments below for reason Last Modified By: Kathleen Gómez RN 03/30/18 09:54:58 General Comments: Pt completed prep at 0540 and remained NPO/JANET,RN Finalized By: Kathleen Gómez RN Document Signatures Signed By: Kathleen Gómez RN 03/30/18 10:16 Normal [facility] Patient Education - Texton 0 03-30-2018 Patient Education - Text [facility] Progress Note-Physicianon Progress Note-Physician Patient: [...] 24 hrs) Last Charted Minimum MaximumTemp 36.5 (DAYNA 04 11:15) 36.3 (MAR 04 10:05) 36.5 (MAR 04 11:15)Heart Rate 72 (MAR 04 11:30) 67 (MAR 04 11:15) 76 (DAYNA 04 10:05)Resp Rate 16 (MAR 04 11:30) 9 (DAYNA 04 11:20) 20 (DAYNA 04 10:05)SBP 122 (DAYNA 04 11:25) 109 (DAYNA 04 11:00) 127 (DAYNA 04 10:05)DBP 83 (MAR 04 11:25) 71 (MAR 04 11:00) 83 (DAYNA 04 10:05)SpO2 99 (DAYNA 04 11:30) 97 (MAR 30 11:25) 100 (MAR [...] vomiting. Plan Transfer/ Discharge: Condition stable. Normal [facility] Comment on above: Result Comment: Elec tronically Signed By: Rusty Fagan DO, Quincy Gregory\\.karen\\Date and Time Signed: 03/30/18 11:55 EDT Vital Signs Date Time Vital Sign Value Performing Clinician Facility 07-15-2025 10:12-0400 Body height 177.8 cm PHYSICIAN NO [facility] 07-15-2025 10:12-0400 Body mass index (BMI) [Ratio] 29.9 kg/m2 PHYSICIAN NO [facility] 07-15-2025 10:12-0400 Body temperature 98.3 [degF] PHYSICIAN NO [facility] 07-15-2025 10:12-0400 Body weight 94.85 kg PHYSICIAN NO [facility] 07-15-2025 10:12-0400 Diastolic blood pressure 90 mm[Hg] PHYSICIAN NO [facility] 07-15-2025 10:12-0400 Heart rate 89 /min PHYSICIAN NO [facility] 07-15-2025 10:12-0400 Respiratory rate 16 /min PHYSICIAN NO [facility] 07-15-2025 10:12-0400 SaO2% (BldA) [Mass fraction] 99 % PHYSICIAN NO [facility] 07-15-2025 10:12-0400 Systolic blood pressure 118 mm[Hg] PHYSICIAN NO [facility] 04-26-2025 11:31-0400 Body height 177.8 cm Laila HEREDIA Work Phone: [facility] 04-26-2025 11:31-0400 Body mass index (BMI) [Ratio] 29.84 kg/m2 Laila HEREDIA Work Phone: [facility] 04-26-2025 11:31-0400 Body weight 94.35 kg Laila Gonzalez COMPENSATION/BENEFITS SPECIALIST-DOCK SUPERVISOR Work Phone: [facility] 03-14-2025 11:14-0400 Body height 177.8 cm Laila Gonzalez COMPENSATION/BENEFITS SPECIALIST-DOCK SUPERVISOR Work Phone: [facility] 03-14-2025 11:14-0400 Body mass index (BMI) [Ratio] 30.42 kg/m2 Laila Gonzalez COMPENSATION/BENEFITS SPECIALIST-DOCK SUPERVISOR Work Phone: [facility] 03-14-2025 11:14-0400 Body weight 96.16 kg Laila Gonzalez COMPENSATION/BENEFITS SPECIALIST-DOCK SUPERVISOR Work Phone: [facility] 01-07-2025 10:22-0400 Body height 177.8 cm Laila Gonzalez COMPENSATION/BENEFITS SPECIALIST-DOCK SUPERVISOR Work Phone: [facility] 01-07-2025 10:22-0400 Body mass index (BMI) [Ratio] 30.13 kg/m2 Laila Gonzalez COMPENSATION/BENEFITS SPECIALIST-DOCK SUPERVISOR Work Phone: [facility] 01-07-2025 10:22-0400 Body weight 95.25 kg Laila Gonzalez COMPENSATION/BENEFITS SPECIALIST-DOCK SUPERVISOR Work Phone: [facility] 07-14-2024 09:26-0400 Body height 177.8 cm Benson Weiss MD Work Phone: [facility] 07-14-2024 09:26-0400 Body mass index (BMI) [Ratio] 28.84 kg/m2 Benson Weiss MD Work Phone: [facility] 07-14-2024 09:26-0400 Body temperature 97.5 [degF] Benson Weiss MD Work Phone: [facility] 07-14-2024 09:26-0400 Body weight 91.17 kg Benson Weiss MD Work Phone: [facility] 07-14-2024 09:26-0400 Diastolic blood pressure 70 mm[Hg] Benson Weiss MD Work Phone: [facility] 07-14-2024 09:26-0400 Heart rate 88 /min Benson Weiss MD Work Phone: [facility] 07-14-2024 09:26-0400 Respiratory rate 20 /min Benson Weiss MD Work Phone: [facility] 07-14-2024 09:26-0400 SaO2% (BldA) [Mass fraction] 99 % Benson Weiss MD Work Phone: [facility] 07-14-2024 09:26-0400 Systolic blood pressure 118 mm[Hg] Benson Weiss MD Work Phone: [facility] 01-26-2024 14:24-0400 Body height 177.8 cm Reynold Kuo MD Work Phone: [facility] 01-26-2024 14:24-0400 Body mass index (BMI) [Ratio] 25.75 kg/m2 Reynold Kuo MD Work Phone: [facility] 01-26-2024 14:24-0400 Body weight 81.4 kg Reynold Kuo MD Work Phone: [facility] 03-28-2022 11:11-0400 Body height 180.3 cm Arnold Genao MD Work Phone: [facility] 03-28-2022 11:11-0400 Body weight 90.27 kg Arnold Genao MD Work Phone: [facility] 03-28-2022 11:11-0400 Diastolic blood pressure 65 mm[Hg] Arnold Genao MD Work Phone: [facility] 03-28-2022 11:11-0400 Heart rate 80 /min Arnold Genao MD Work Phone: [facility] 03-28-2022 11:11-0400 SaO2% (BldA) [Mass fraction] 100 % Arnold Genao MD Work Phone: [facility] 03-28-2022 11:11-0400 Systolic blood pressure 108 mm[Hg] Arnold Genao MD Work Phone: [facility] Encounters Encounter Date Encounter Type Care Provider Facility Start: 07-26-2025 End: 07-26-2025 ambulatory JUANA BAN Facility:[facility] Start: 07-15-2025 End: 07-15-2025 ambulatory PHYSICIAN NO [facility] Work Phone: Start: 07-15-2025 End: 07-15-2025 Patient encounter procedure Benson Weiss MD -[facility] Work Phone: Start: 07-09-2025 Non-patient / Non-visit Outside [facility] Work Phone: Start: 06-15-2025 End: 06-28-2025 Telephone encounter Benson [...] Follow-up encounter Veronica Galo DO Work Phone: [facility] Comment on above: Surgical Pathology Proctitis Start: 05-02-2025 End: 05-02-2025 Evaluation and management of inpatient VERONICA Eugene [facility] Start: 04-26-2025 End: 04-26-2025 ambulatory [facility] Pat Phone Call Provider 1 [facility] - Pre Admit Start: 04-26-2025 End: 04-26-2025 Office outpatient visit 15 minutes Laila Gregory Gonzalez COMPENSATION/BENEFITS SPECIALIST-DOCK SUPERVISOR Work Phone: [facility] General Surgery Comment on above: Rectal bleeding (Charlee hortensia Dx); Chronic constipation; Straining during bowel movements Start: 04-26-2025 End: 04-26-2025 ambulatory [facility] Start: 04-04-2025 End: 04-04-2025 Telephone encounter Audrey Maldonado [facility] General Surgery Start: 03-30-2025 End: 03-31-2025 Clinisync Result Encounter Generic External Data Provider [facility] External Department Unsolicited Start: 03-30-2025 End: 03-31-2025 Clinisync Result Encounter Generic External Data Provider [facility] External Department Unsolicited Start: 03-24-2025 End: 03-24-2025 Evaluation and management of inpatient FLEMINGTON Eugene [facility] Start: 03-17-2025 End: 03-17-2025 [facility] Start: 03-14-2025 End: 03-14-2025 Office outpatient visit 15 minutes Laila Bri BermanGonzalez COMPENSATION/BENEFITS SPECIALIST-DOCK SUPERVISOR Work Phone: [facility] General Surgery Comment on above: Rectal bleeding (Charlee hortensia Dx); Chronic constipation; Straining during bowel movements Start: 03-14-2025 End: 03-14-2025 ambulatory [facility] Start: 03-01-2025 End: [...] Unsolicited Start: 01-13-2025 ambulatory Jean Carlos Boudreaux acility:[facility] Start: 01-12-2025 End: 01-12-2025 ambulatory BENSON WEISS Not Available Start: 01-07-2025 End: 01-07-2025 Office outpatient new 30 minutes Laila Gonzalez COMPENSATION/BENEFITS SPECIALIST-DOCK SUPERVISOR Work Phone: [facility] General Surgery Comment on above: Rectal bleeding (Charlee hortensia Dx); Chronic constipation; Straining during bowel movements Start: 01-07-2025 End: 01-07-2025 ambulatory LAILA GONZALEZ [facility] Start: 12-08-2024 End: 12-08-2024 [...] Start: 01-26-2024 End: 01-26-2024 ambulatory REYNOLD KUO [facility] Start: 01-26-2024 End: 01-26-2024 Postop follow up visit related to original px Reynold Kuo MD Work Phone: [facility] Colorectal Surgery Comment on above: Rectal prolapse (Charlee hortensia Dx) Start: 01-10-2024 End: 01-10-2024 Evaluation and management of inpatient JOHN MIGUEL ÁNGEL [facility] Start: 01-09-2024 End: 01-10-2024 Evaluation and management of inpatient BENSON WEISS [facility] Start: 03-26-[address] DOCTOR [...] (Primar y Dx) Start: 04-17-2018 End: 04-18-2018 [facility] Facility:[facility] Start: 03-30-2018 End: 03-31-2018 [facility] Facility:[facility] Procedures Date Procedure Procedure Detail Performing Clinician [...] Td Vaccines (8 - Td or Tdap) [facility] Start: 05-02-2026 Adult BMI Screening Adult BMI Screen ing [facility] Start: 05-02-2026 Tobacco Screening Tobacco Screening [facility] Start: 04-26-2026 Adult BMI Screening Adult BMI Screen ing [facility] Start: 04-26-2026 Tobacco Screening Tobacco Screening [facility] Start: 03-24-2026 Adult BMI Screening Adult BMI Screen ing [facility] Start: 03-24-2026 Tobacco Screening Tobacco Screening [facility] Start: 03-14-2026 Adult BMI Screening Adult BMI Screen ing [facility] Start: 03-14-2026 Tobacco Screening Tobacco Screening [facility] Start: 01-12-2026 Medicare Annual Well ness (AWV) Medicare Annual Wellness (AWV) [facility] Start: 01-07-2026 Adult BMI Screening Adult BMI Screen ing [facility] Start: 01-07-2026 Tobacco Screening Tobacco Screening [facility] Start: 07-15-2025 End: 07-15-2025 Patient encounter procedure 07/15/2025 10:00 AM EDT Office Visit [facility] [address] [place] [address] Benson Weiss MD [address] [place] [address] [facility] Start: 06-27-2025 Influenza vaccination [facility] Start: 05-02-2025 End: 05-02-2025 Admission to same day surgery center 05/02/2025 7:30 AM EDT - 05/02/2025 8:00 AM EDT Surgery [facility] [address] [place] [phone] Veronica Galo, DO [address] [place], [place] [id number] COLONOSCOPY DIAGNOSTIC / SCREENING [01212 (CPT )] [facility] Comment on above: COLONOSCOPY DIAGNOST IC / SCREENING [25168 (CPT )] Start: 05-02-2025 End: 05-02-2025 Anesthesia consultation 05/02/2025 7:30 AM EDT Anesthesia Event [facility] [address] [place] [address] Timbo Ceballos, DO [address] [facility], [place] [id number] [facility] Start: 05-02-2025 End: 05-02-2025 Colonoscopy flx dx w/collj spec when pfrmd COLONOSCOPY DIAGNOSTIC / SCREENING rectal bleeding-poor prep with first attempt 05/02/2025 7:30 AM EDT [facility] Start: 05-02-2025 Subsequent hospital visit by physician 05/02/2025 7:30 AM EDT Hospital Encounter [facility] [address] [place] [phone] Veronica Galo, DO [address], [place] [id number] [facility] Start: 04-26-2025 End: 04-26-2025 ambulatory 04/26/2025 4:20 PM EDT Support Visit [facility] Pre Admit [address] [place] [address] [facility] Pre Admit Start: 04-26-2025 End: 04-26-2025 Patient encounter procedure 04/26/2025 11:30 AM EDT Office Visit [facility] General Surgery [address] [facility] [place] [phone] Laila Gonzalez, COMPENSATION/BENEFITS SPECIALIST-DOCK SUPERVISOR [address] [place], [place] [phone] [facility] Start: 03-24-2025 End: 03-24-2025 Admission to same day surgery center 03/24/2025 9:00 AM EDT - 03/24/2025 9:30 AM EDT Surgery [facility] Surgery [address] [facility] [phone] Veronica Galo, DO [address], [place] [phone] COLONOSCOPY DIAGNOSTIC / SCREENING [85251 (CPT )] [facility] Comment on above: COLONOSCOPY DIAGNOST IC / SCREENING [63829 (CPT )] Start: 03-24-2025 End: 03-24-2025 Colonoscopy flx dx w/collj spec when pfrmd COLONOSCOPY DIAGNOSTIC / SCREENING rectal bleeding 03/24/2025 9:00 AM EDT [facility] Start: 03-24-2025 Subsequent hospital visit by physician 03/24/2025 9:00 AM EDT Hospital Encounter [facility] [address] [place] [phone] Veronica Galo, DO [address] [place], [place] [phone] [facility] Start: 03-17-2025 End: 03-17-2025 ambulatory 03/17/2025 2:10 PM EDT Support Visit [facility] - Pre Admit [address] [place] [phone] [facility] Pre Admit Start: 01-25-2025 Adult BMI Screening Adult BMI Screen ing [facility] Start: 01-25-2025 Tobacco Screening Tobacco Screening [facility] Start: 01-12-2025 End: 01-12-2025 Patient encounter procedure 01/12/2025 9:30 AM EDT Office Visit [facility] [address] [place] [phone] Benson Weiss MD [address] [place] [phone] [facility] Start: 07-14-2024 End: 07-14-2024 Patient encounter procedure 07/14/2024 9:30 AM EDT Office Visit [facility] [address] [place] [address] Benson Weiss MD [address] [place] [address] Arrived [facility] Comment on above: Arrived Start: 06-27-2024 COVID-19 Vaccine ( season) COVID-19 Vaccine ( season) [facility] Start: 06-27-2024 Influenza vaccination [facility] Start: 06-27-2023 COVID-19 Vaccine ( season) COVID-19 Vaccine ( season) [facility] Start: 2017 Urine microalbumin profile DTAP,TDAP,TD (1 - Tdap) [facility] Start: 2016 Adult BMI Follow Up Plan Adult BMI Follow Up Plan [facility] Start: 2016 HEPATITIS C SCREENING HEPATITIS C SC REENING [facility] Start: 2016 HIV SCREENING HIV SCREENING [facility] Start: 2012 PEDS TO ADULT TRANSI TION ANNUAL ASSESSMENT PEDS TO ADULT TRANSITION ANNUAL ASSESSMENT [facility] Start: 2010 Adult depression screening assessment DEPRESSION SCREENING [facility] Start: 2010 PEDS TO ADULT TRANSI TION INITIAL DISCUSSION PEDS TO ADULT TRANSITION INITIAL DISCUSSION [facility] Start: 2009 HPV VACCINE (1 - Mal e 2-dose series) HPV VACCINE (1 - Male 2-dose series) [facility] Start: 2008 MENINGOCOCCAL B: Consider based on risk (1 of 2 - Risk Bexsero 2-dose series) MENINGOCOCCAL B: Consider based on risk (1 of 2 - Risk Bexsero 2-dose series) [facility] Start: 1998 Medicare Annual Well ness (AWV) Medicare Annual Wellness (AWV) [facility] End: 03-14-2026 Colonoscopy Colonoscopy GI Routine Rectal bleeding 1 Occurrences starting 03/14/2025 until 03/14/2026 [facility] Comment on above: 1 Occurrences starti ng 03/14/2025 until 03/14/2026 Immunizations Immunization Date Immunization Notes Care Provider Fa cility 12-08-2020 COVID-19, mRNA, LNP- S, PF, 30mcg/0.3mL Dose Reynold Kuo MD Work Phone: [facility] 11-17-2020 COVID-19, mRNA, LNP- S, PF, 30mcg/0.3mL Dose Reynold Kuo MD Work Phone: [facility] 08-31-2020 influenza, injectabl e, quadrivalent, preservative free Reynold Kuo MD Work Phone: [facility] 08-31-2020 influenza virus vacc ine, unspecified formulation Reynold Kuo MD Work Phone: [facility] 08-18-2019 influenza, injectabl e, quadrivalent, preservative free Reynold Kuo MD Work Phone: [facility] 08-05-2019 tetanus toxoid, redu diamond diphtheria toxoid, and acellular pertussis vaccine, adsorbed Reynold Kuo MD Work Phone: [facility] 12-02-2017 tetanus toxoid, redu diamond diphtheria toxoid, and acellular pertussis vaccine, adsorbed Reynold Kuo MD Work Phone: [facility] 08-21-2017 influenza, injectabl e, quadrivalent, preservative free Reynold Kuo MD Work Phone: [facility] 08-28-2016 influenza, injectable,quadrivalent, preservative free, pediatric Reynold Kuo MD Work Phone: [facility] 08-28-2016 meningococcal polysaccharide (groups A, C, Y and W-135) diphtheria toxoid conjugate vaccine (MCV4P) Reynold uKo MD Work Phone: [facility] 08-16-2015 influenza, seasonal, injectable Reynold Kuo MD Work Phone: [facility] 08-07-2011 tetanus toxoid, redu diamond diphtheria toxoid, and acellular pertussis vaccine, adsorbed Reynold Kuo MD Work Phone: [facility] 08-17-2008 hepatitis A vaccine, pediatric/adolescent dosage, 2 dose schedule Reynold Kuo MD Work Phone: [facility] 02-02-2008 hepatitis A vaccine, pediatric/adolescent dosage, 2 dose schedule Reynold Kuo MD Work Phone: [facility] 02-02-2008 varicella virus vaccine Edwin Kuo MD Work Phone: [facility] 01-18-2005 diphtheria, tetanus toxoids and acellular pertussis vaccine Reynold Kuo MD Work Phone: [facility] 07-18-2004 DTaP-hepatitis B and poliovirus vaccine Reynold Kuo MD Work Phone: [facility] 07-17-2004 measles, mumps and rubella virus vaccine Reynold Kuo MD Work Phone: [facility] 02-08-2003 diphtheria, tetanus toxoids and acellular pertussis vaccine, unspecified formulation Reynold Kuo MD Work Phone: [facility] 02-08-2003 haemophilus influenz ae type b vaccine, conjugate unspecified formulation Reynold Kuo MD Work Phone: [facility] 02-08-2003 hepatitis B vaccine, pediatric or pediatric/adolescent dosage Reynold Kuo MD Work Phone: [facility] 02-08-2003 measles, mumps and rubella virus vaccine Reynold Kuo MD Work Phone: [facility] 02-08-2003 poliovirus vaccine, unspecified formulation Reynold Kuo MD Work Phone: [facility] 02-08-2003 varicella virus vaccine Edwin Kuo MD Work Phone: [facility] 2000 diphtheria, tetanus toxoids and acellular pertussis vaccine, unspecified formulation Reynold Kuo MD Work Phone: [facility] 2000 haemophilus influenz ae type b vaccine, conjugate unspecified formulation Reynold Kuo MD Work Phone: [facility] 2000 poliovirus vaccine, unspecified formulation Reynold Kuo MD Work Phone: [facility] 2000 hepatitis B vaccine, pediatric or pediatric/adolescent dosage Reynold Kuo MD Work Phone: [facility] 1998 hepatitis B vaccine, pediatric or pediatric/adolescent dosage Reynold Kuo MD Work Phone: [facility] Payers Date Payer Category Payer Self-pay 2021 [place] [id number] 2021-Present [phone] [address] [place] [address] Medicaid [id number] 2018 Medicare MEDICARE MEDICAR E A AND B [id number] 2018-Present [phone] [address] [address] [place] [address] Medicare [id number] 2018 Medicare [id number] [id number] 2018 Medicaid [id number] [id number] 1998 Unknown [id number] 2.16.840.1.551830.3.579.2.593 1998 Unknown [id number] 2.16.840.1.082892.3.579.2.593 1998 Unknown [id number] 2.16.840.1.935017.3.579.2.593 1998 Unknown [id number] 2.16.840.1.587869.3.579.2.593 1998 Unknown [id number] 2.16.840.1.279331.3.579.2.593 1998 Unknown [id number] 2.16.840.1.425897.3.579.2.593 1998 Unknown [id number] 2.16.840.1.718503.3.579.2.593 1998 Unknown [id number] 2.16.840.1.021490.3.579.2.593 1998 Unknown [id number] 2.16.840.1.940239.3.579.2.593 1998 Unknown [id number] 2.16.840.1.604919.3.579.2.593 1998 Unknown [id number] 2.16.840.1.131048.3.579.2.593 1998 Unknown [id number] 2.16.840.1.625233.3.579.2.593 1998 Unknown [id number] 2.16.840.1.175694.3.579.2.1286 1998 Unknown [id number] 2.16.840.1.807883.3.579.2.128 1998 Unknown [id number] 2.16.840.1.789411.3.579.2.1286 1998 Unknown [id number] 2.16.840.1.002463.3.579.2.1286 1998 Unknown [id number] 2.16.840.1.354787.3.579.2.1259 1998 Unknown [id number] 2.16.840.1.197158.3.579.2.1259 1998 Unknown [id number] 2.16.840.1.268043.3.579.2.1286 1998 Unknown [id number] 2.16.840.1.464181.3.579.2.1286 1998 Unknown [id number] 2.16.840.1.259462.3.579.2.1286 1998 Unknown [id number] 2.16.840.1.273168.3.579.2.1286 1998 Unknown [id number] 2.16.840.1.339368.3.579.2.1286 1998 Unknown [id number] 2.16.840.1.066695.3.579.2.1286 1998 Unknown [id number] 2.16.840.1.188782.3.579.2.1286 1961 Medicaid [id number] 1961 Medicare [id number] Social History Date Type Detail Facility Start: 03-01-2015 End: 07-15-2025 Tobacco smoking status ARIS Never smoked tobacco [facility] Start: 03-01-2015 End: 01-26-2024 Tobacco use and exposure Smokeless tobacco non-user [facility] Start: 03-28-2022 Alcohol intake Current non-dr demurrage agent of alcohol (finding) [facility] Start: 2000 Sex Assigned At Not on file [facility] Start: 03-18-2022 End: 03-28-2022 Exposure to SARS-CoV-2 (event) Not sure [facility] Start: 01-07-2024 End: 07-14-2024 Alcoholic beverage intake Ex-drinker (finding) [facility] Start: 11-20-2020 End: 07-14-2024 History of Social function [facility] Start: 11-20-2020 End: 07-14-2024 Tobacco use panel [facility] Start: 01-26-2024 End: 05-04-2025 Alcohol intake Lifetime non-drinker (finding) [employer] Has the [employer], [employer], [employer], or water company threatened to shut off services in your home in past 12Mo No [employer] How often to you hav e a drink containing alcohol? Never [employer] How many standard drinks containing alcohol do you have on a typical day? Patient does not drink [employer] Start: 06-01-2015 Sex Male (finding) [facility] Start: 2000 Sex Assigned At [facility] Goals Date Patient Goal Desired Activity /State Personal health goal Comment on above: Formatting of this n ote might be different from the original. Evaluation of progress towards goal: Soren Conner states back to [facility]. Personal health goal Personal health goal Clinical Notes 07-12-2021 to 07-26-2025 Telephone Encounter - Benson Weiss MD - 06/16/2025 8:03 AM EDTTelephone Encounter - Benson Weiss MD - 06/16/2025 8:03 AM EDTTelephone Encounter - Katty Samaniego - 06/15/2025 10:18 AM EDT Note Date & Type Note Facility 07-26-2025 Note HNO ID: [id number] Author: CHARLEY MCCLELLAND RN Service: ? Author Type: Registered Nurse Type: Progress Notes Filed: 07/26/2025 11:13 Note Text: AMBULATORY PATIENT EDUCATION NOTE DIAGNOSIS: rectal prolapse/ constipation READINESS TO LEARN COGNITIVE ABILITY: Alert and oriented MOTIVATION TO LEARN: Eager FAMILY SUPPORT: High - Very involved in pt care (in a [facility]) PHYSICAL LIMITATIONS AFFECTING LEARNING: None METHOD OF INSTRUCTION: Verbal and Written instruction - handouts provided SUPPLEMENTAL MATERIAL: -Anorectal Manometry- call office to schedule [phone] -Pelvic floor physical therapy - handout with phone numbers provided to schedule at location of choice - GI consult with Dr Cornelius Grewal for constipation Patient acknowledges and understands. They have contact phone number for further concerns. [phone] TIME SPENT: 15 min Electronically Signed By: Charley Mcclelland RN, BSN [employer]SI [employer] Cartoonist [facility] 07-26-2025 Note HNO ID: [id number] Author: JUANA HARPER MD Service: ? Author Type: Physician Type: Progress Notes Filed: 07/26/2025 14:23 Note Text: COLORECTAL SURGERY July 26, 2025 Rj Colbert This consult was requested by Dr. Benson Weiss and my final recommendations will be communicated to the requesting health care provider by way of the shared medical record for internal providers or letter via the [employer] Postal Service for external providers. Recording using Conjure software for draft documentation of the visit was discussed with the patient/authorized telephone services sales representative; all questions welcomed and answered. Patient/authorized telephone services sales representative agreed to proceed Chief Complaint: rectal prolapse History of Present Illness: The patient is a 25-year-old male with chronic constipation and recurrent rectal prolapse, presenting for evaluation of ongoing rectal prolapse and constipation. He is accompanied by his fiber optic assembler, who provides additional history. He reports a history of rectal prolapse, for which he underwent surgical resection approximately 2 years ago in [place] by Dr. Laila Nunez. He experienced significant improvement for about a year postoperatively, but the prolapse has since recurred. He describes a burning sensation with defecation and the passage of tissue from the rectum that protrudes externally during bowel movements, which he manually reduces. He denies fecal incontinence or urinary symptoms. Bowel movements are infrequent and require prolonged straining, often spending hours on the toilet with minimal or no stool passage. He reports that stool is only passed with the use of Smooth Move Tea, and is described as brown and formed, without diarrhea. He denies regular use of the tea due to a busy schedule. He is currently taking docusate 100 mg and Fiber-Lax 625 mg, but acknowledges inadequate water intake. He has also used Proctofoam for hemorrhoidal symptoms. He denies current tobacco use. Rectal prolapse: yes Fecal incontinence: no Frequency: n/a Severity: n/a Urinary incontinence: n/a Constipation: yes, spends hours on the toilet per caregiver and has to push and strain. Only moves his bowels with tea which he does not take every day If yes, prior meds: smooth move tea, docusate, fiber Primary GI: Dr. Galo Stool consistency: he was unable to say what the consistency is. + hematochezia. Time in bathroom: hours PMH: developmental delay, presents with his fiber optic assembler PSH: Rubber band ligation on 9/16/21 and Hemorrhoid Ablation on 10/17/21. Had a rectal prolapse surgery in [place] 2 years ago (Dr. Nunez [facility]) Current smoker: no Prior pelvic floor PT: no Prior testing: Manometry: n/a Defecography: n/a He has undergone 2 colonoscopies in the past [address] Chapin, both of which were limited by inadequate bowel preparation. There is no known family history of colorectal cancer. PAST MEDICAL HISTORY Diagnosis Date Attention deficit hyperactivity disorder MR (mental retardation) Schizophrenia (HCC) Tic disorder PAST SURGICAL HISTORY Procedure Laterality Date ABDOMINAL SURGERY HX HEMORRHOID;BAND LIGAT, SNGL/MUL 07/12/2021 Current Outpatient Medications Medication Sig Dispense Refill pramoxine-hydrocortisone (PROCTOFOAM HC) rectal foam 1 applicator by RECTAL route two times a day. acetaminophen (TYLENOL) 325 mg tablet Take 2 tablets by mouth every 6 hours. ibuprofen (MOTRIN) 200 mg tablet Take 2 tablets by mouth every 4 hours as needed for pain. risperiDONE (RISPERDAL) 1 mg tablet Take 1 mg by mouth three times a day. loratadine (CLARITIN) 10 mg tablet Take 10 mg by mouth. calcium polycarbophil (FIBERCON) 625 mg tablet Take 625 mg by mouth. docusate sodium (COLACE) 100 mg capsule Take 100 mg by mouth twice daily. cloZAPine (CLOZARIL) 100 mg tablet once daily. 100 mg three times daily and 200 mg one tablet daily at bedtime. polyethylene glycol 3350 (MIRALAX) 17 gram packet Take 1 Packet by mouth once daily. 30 Packet 5 benztropine (COGENTIN) 2 mg tablet Take 2 mg by mouth twice daily. clonazePAM (KLONOPIN) 1 mg tablet Take 0.5 mg by mouth two times a day as needed. FLUoxetine HCl (PROZAC) 40 mg capsule Take 40 mg by mouth once daily. haloperidol (HALDOL) 10 mg tablet Take 10 mg by mouth two times a day. Magnesium Carbonate powd 4 g daily at bedtime. Used for constipation 28 g 3 No current facility-administered medications for this visit. ALLERGIES No Known Allergies History reviewed. No pertinent family history. SOCIAL HISTORY[1] Physical Exam: BP 119/82 (BP Site: Right Arm, BP Position: Sitting) Pulse 78 Temp 36.3 ?C (97.3 ?F) Ht 180.3 cm (5' 11 ) Wt 94.8 kg (209 lb) BMI 29.15 kg/m? General Appearance: Well appearing, alert, in no acute distress, well-hydrated, well nourished. Abdomen: soft ND NT The sensitive examination was discussed with the Patient or Patient's Authorized Repre (more content not included)... [facility] 07-26-2025 Note Education ([facility]) RJ COLBERT ([id number]) 2000 M Date Time Provider Department 07/26/25 CHARLEY MCCLELLAND [facility] Reason for Visit: Rectal Prolapse [1404] During your visit today, we recorded the following information about you: Allergies As of Date: 07/26/2025 (No Known Allergies) Date Reviewed: 07/26/2025 Reviewed by: Yamile Berrios [facility] - Fully Assessed Prescriptions as of 07/26/2025 - pramoxine-hydrocortisone (PROCTOFOAM HC) rectal foam 1 applicator by RECTAL route two times a day. - Magnesium Carbonate powd 4 g daily at bedtime. Used for constipation - acetaminophen (TYLENOL) 325 mg tablet Take 2 tablets by mouth every 6 hours. - ibuprofen (MOTRIN) 200 mg tablet Take 2 tablets by mouth every 4 hours as needed for pain. - risperiDONE (RISPERDAL) 1 mg tablet Take 1 mg by mouth three times a day. - loratadine (CLARITIN) 10 mg tablet Take 10 mg by mouth. - calcium polycarbophil (FIBERCON) 625 mg tablet Take 625 mg by mouth. - docusate sodium (COLACE) 100 mg capsule Take 100 mg by mouth twice daily. - cloZAPine (CLOZARIL) 100 mg tablet once daily. 100 mg three times daily and 200 mg one tablet daily at bedtime. - polyethylene glycol 3350 (MIRALAX) 17 gram packet Take 1 Packet by mouth once daily. - benztropine (COGENTIN) 2 mg tablet Take 2 mg by mouth twice daily. - clonazePAM (KLONOPIN) 1 mg tablet Take 0.5 mg by mouth two times a day as needed. - FLUoxetine HCl (PROZAC) 40 mg capsule Take 40 mg by mouth once daily. - haloperidol (HALDOL) 10 mg tablet Take 10 mg by mouth two times a day. Encounter Status:Closed by CHARLEY MCCLELLAND on 07/26/25 [facility] 06-16-2025 Telephone encounter Note New referral in chart. [facility] 06-16-2025 Miscellaneous Notes New referral in chart. Rj Antunez's manager data warehouse called. She is requesting a referral to [facility] for a colonoscopy. Rj is working with Dr. Galo but has not been successful preparing properly for the last 2 colonoscopy procedures they have done. He is having bleeding issues. documented in this encounter [facility] 06-15-2025 Telephone encounter Note Rj Antunez's manager data warehouse called. She is requesting a referral to [facility] for a colonoscopy. Rj is working with Dr. Galo but has not been successful preparing properly for the last 2 colonoscopy procedures they have done. He is having bleeding issues. [facility] 05-19-2025 Telephone encounter Note Sent [facility] 05-19-2025 Miscellaneous Notes Sent Patient is looking for a script for proctofoam. Patient is using 2 times daily in rectum. Was originally ordered by Dr Galo, but he states it now needs to come from PCP.clm documented in this encounter [facility] 05-19-2025 Telephone encounter Note Patient is looking for a script for proctofoam. Patient is using 2 times daily in rectum. Was originally ordered by Dr Galo, but he states it now needs to come from PCP.clm [facility] 05-11-2025 Miscellaneous Notes ----- Message from Veronica Galo DO sent at 05/11/2025 7:20 AM EDT ----- Please call mcc attendants and let him know that he has a acute inflammation of the extensive ulceration and he should continue the Proctofoam HC as prescribed. Thanks, Dr. Wheeler ----- Message ----- From: Lab, Background User Sent: 05/10/2025 5:28 PM EDT To: Veronica Galo DO Spoke with patient's adult daycare coordinator Santi regarding pathology results. Santi verbally understood and questions were answered to the best of my ability. Santi would like to know what is causing this inflammation. I informed Santi I would send Dr. Galo her question and call her back as soon as I received results. Will have Laila our DOCK SUPERVISOR send another prescription of Proctofoam. Informed Santi that any refills will need to go through Dr. Weiss's office. documented in this encounter [facility] 05-11-2025 Telephone encounter Note ----- Message from Veronica Galo DO sent at 05/11/2025 7:20 AM EDT ----- Please call mcc attendants and let him know that he has a acute inflammation of the extensive ulceration and he should continue the Proctofoam HC as prescribed. Thanks, Dr. Wheeler ----- Message ----- From: Lab, Background User Sent: 05/10/2025 5:28 PM EDT To: Veronica Galo DO [facility] 05-11-2025 Telephone encounter Note Spoke with patient's adult daycare coordinator Santi regarding pathology results. Santi verbally understood and questions were answered to the best of my ability. Santi would like to know what is causing this inflammation. I informed Santi I would send Dr. Galo her question and call her back as soon as I received results. Will have Laila hsu DOCK SUPERVISOR send another prescription of Proctofoam. Informed Santi that any refills will need to go through Dr. Weiss's office. [facility] 04-26-2025 History of Present illness Narrative Images from the original note were not included. Chief Complaint: Rectal bleeding History of Present Illness Rj Colbert is a 24 y.o. male who presents to the office today for rectal bleeding. He lives in a [facility] and staff member is present with him. [...] Medical History: Diagnosis Date Anxiety Bipolar disorder ([facility]) Cognitive impairment Panic disorder Schizoaffective disorder ([facility]) Schizophrenia ([facility]) Past Surgical History: Procedure Laterality Date ABDOMINAL SURGERY COLONOSCOPY DIAGNOSTIC / SCREENING N/A 03/24/2025 Performed by Veronica Galo DO at [facility] EXPRESS RECTOSIGMOIDECTOMY PERINEAL N/A 01/09/2024 Performed by Pushpa Silva MD at [facility] No Known Allergies Current Outpatient Medications: [...] before bedtime., Disp: , Rfl: peg 3350-sod sulf,[id number]-tvv-uot 178.7-7.3-0.5 gram recon soln, Take 1 kit [...] patient/family/caregiver Referring and communicating with other health direct care professional Rectal bleeding [K62.5] YAN GRIGSBY [facility] General Surgery [facility] This note was created with the assistance of a speech recognition program. While intending to generate a timely document that accurately reflects the content of the visit, no guarantee can be provided that every grammatical or spelling mistake has been or will be identified or corrected. Thank you for your understanding. YAN Grigsby 04/26/25 1202 documented in this encounter [facility] 04-26-2025 Nurse Note Preoperative Education Checklist- General Surgery date: 05/02/25 Surgery time: 730a Arrival time: 610a 1. Bring a photo ID and your insurance card with you the day of surgery. You will check in at the main lobby of the [facility]- registration desk is straight ahead as soon as you walk in. Tell them you are here for surgery. 2. If you have a Living Will/Durable Power of Equal Opportunity Counselor for Health Care that is not on [...] after you have bathed. 5. NO nail cameroonian/acrylic on at least one finger. If you are having a hand, wrist or foot surgery then all nail cameroonian and artificial/acrylic nails must be removed from [...] WITH YOU ANY DEVICES YOU MAY NEED: NIKOLE hose, ice machine, sling/swath, brace or special [...] please call the Preadmission Testing office at [phone], Mon.-Fri. 7 a.m.-3 p.m. Leave a voicemail [...] prescribed, DO NOT take morning of procedure [facility] 04-26-2025 Miscellaneous Notes Preoperative Education Checklist- General Surgery date: 05/02/25 Surgery time: 730a Arrival time: 610a 1. Bring a photo ID and your insurance card with you the day of surgery. You will check in at the main lobby of the [facility]- registration desk is straight ahead as soon as you walk in. Tell them you are here for surgery. 2. If you have a Living Will/Durable Power of Equal Opportunity Counselor for Health Care that is not on [...] after you have bathed. 5. NO nail cameroonian/acrylic on at least one finger. If you are having a hand, wrist or foot surgery then all nail cameroonian and artificial/acrylic nails must be removed from [...] WITH YOU ANY DEVICES YOU MAY NEED: NIKOLE hose, ice machine, sling/swath, brace or special [...] please call the Preadmission Testing office at [phone], Mon.-Fri. 7 a.m.-3 p.m. Leave a voicemail [...] morning of procedure documented in this encounter [facility] 04-04-2025 Miscellaneous Notes ----- Message from Veronica Galo DO sent at 04/04/2025 8:14 AM EDT ----- Please let patient know that all biopsies were negative. ThanksDr. Wheeler ----- Message ----- From: Lab, Background User Sent: 04/02/2025 1:09 PM EDT To: Veronica Galo DO Spoke with patient's adult daycare coordinator Santi regarding pathology results. Santi verbally understood with no further questions. documented in this encounter [facility] 04-04-2025 Telephone encounter Note ----- Message from Veronica Galo DO sent at 04/04/2025 8:14 AM EDT ----- Please let patient know that all biopsies were negative. ThanksDr. Wheeler ----- Message ----- From: Lab, Background User Sent: 04/02/2025 1:09 PM EDT To: Veronica Galo DO [facility] 04-04-2025 Telephone encounter Note Spoke with patient's adult daycare coordinator Santi regarding pathology results. Santi verbally understood with no further questions. [facility] 03-14-2025 History of Present illness Narrative Images from the original note were not included. Chief Complaint: Rectal bleeding History of Present Illness Rj Colbert is a 24 y.o. male who presents to the office today for rectal bleeding. He lives in a [facility] and staff member is present with him. [...] 01/09/2024 Performed by Pushpa Silva MD at [facility] No Known Allergies Current Outpatient Medications: [...] before bedtime., Disp: , Rfl: peg 3350-sod sulf,[id number]-dks-wkf 178.7-7.3-0.5 gram recon soln, Take 1 kit [...] patient/family/caregiver Referring and communicating with other health direct care professional Rectal bleeding [K62.5] LAILA GONZALEZ APRN-HUSAM [facility] General Surgery [place] This note was created with the assistance of a speech recognition program. While intending to generate a timely document that accurately reflects the content of the visit, no guarantee can be provided that every grammatical or spelling mistake has been or will be identified or corrected. Thank you for your understanding. YAN Grigsby 03/14/25 1757 documented in this encounter [facility] 01-07-2025 History of Present illness Narrative Images from the original note were not included. Chief Complaint: Rectal bleeding History of Present Illness Rj Colbert is a 24 y.o. male who presents to the office today for rectal bleeding. He lives in a [facility] and staff member is present with him. [...] 01/09/2024 Performed by Pushpa Silva MD at [facility] No Known Allergies Current Outpatient Medications: [...] Objective Physical Exam Exam conducted with a automation qtp tester present. Constitutional: General: He is not in [...] patient/family/caregiver Referring and communicating with other health direct care professional Rectal bleeding [K62.5] YAN GRIGSBY [facility]icians General Surgery [place] This note was created with the assistance of a speech recognition program. While intending to generate a timely document that accurately reflects the content of the visit, no guarantee can be provided that every grammatical or spelling mistake has been or will be identified or corrected. Thank you for your understanding. YAN Grigsby 01/07/25 1105 documented in this encounter [facility] 01-07-2025 Miscellaneous Notes Addended by: LAILA GONZALEZ on: 01/07/2025 11:05 AM Modules accepted: Orders documented in this encounter [facility] 01-07-2025 Note Addended by: LAILA GONZALEZ on: 01/07/2025 11:05 AM Modules accepted: Orders [facility] 07-14-2024 History of Present illness [...] medication and continue. documented in this encounter [facility] 01-26-2024 History of Present illness Narrative Images from the original note were not included. [facility] Colorectal Surgery [address] [address] Patient: Rj Colbert Date of : 2000 Encounter Date: 01/26/2024 History of Present Illness: The patient is 23 y.o. male and presents for postoperative follow-up s/p repair of rectal prolapse. Patient presented with incarcerated prolapse. He underwent Altemeier procedure. Patient now follows up. Patient is accompanied by fiber optic assembler. He is doing well. He denies any [...] Reynold Kuo MD documented in this encounter [facility] 03-28-2022 Miscellaneous Notes Spoke with the pharmacist and she states that she does not provide food items. She will speak with the nurse at the [facility]. Pharmacy, [facility], [facility], phone , any pharmacist to clarify about carbonate? CALM is mcc able to order as food item? Please call to discuss. documented in this encounter [facility] 03-28-2022 Miscellaneous Notes Opened in error documented in this encounter [facility] 03-28-2022 Miscellaneous Notes Addended by: ARNOLD GENAO on: 03/28/2022 03:11 PM Modules accepted: Orders Addended by: CHARLEY MCCLELLAND on: 03/28/2022 02:47 PM Modules accepted: Orders documented in this encounter [facility] 03-28-2022 Nurse Note Calm education given for constipation. What is the reason for your visit today? Established patient presents for hematochezia. Who is your referring physician? Are you having poor oral intake? NO Have you had unintentional weight loss of 15 lbs/7 Kg in the last 3-6 months? NO Bowels: regular Wound: None Temperature: No Drains: No documented in this encounter [facility] 03-28-2022 History of Present illness Narrative COLORECTAL SURGERY March 28, 2022 Rj Colbert 21 year old Chief Complaint: hematochezia History of Present Illness: Rj Colbert is a 21 year old male presents to the office for evaluation of hematochezia. Last seen in the office on 11/16/21 with Cristal Suarez ASSEMBLER GOLD FRAME for follow up visit after he underwent [...] exam Anorectal: External exam reveals: see below Taxation Accountant present: yes Assessment Assessment and Plan: Rj Colbert is a 21 year old male with straining and occasional rectal bleeding. Today, we talked about adding a magnesium supplement CALM to his regimen to decrease straining. I am of the opinion that more surgery is not the best option at this time. Arnold Genao MD Colorectal Surgery documented in this encounter [facility] 10-17-2021 Note HNO ID: [id number] Author: Hunter Massey APRN.PLANT CLERK Service: Anesthesiology Author Type: Nurse Assembler Movement Type: Anesthesia Procedure Notes Filed: 10/17/2021 8:55 AM Note Text: ANESTHESIOLOGY PROCEDURE NOTE Airway General Information Procedure Start Time/Medication Administration: 10/17/2021 8:49 AM Patient location during procedure: OR Timeout Performed Pre-procedure: timeout performed Consent Obtained: Yes Patient identity confirmed: arm band, care manufacturing team leader and patient Staffing Anesthesiologist: Michael Martínez MD PLANT CLERK: Hunter Massey APRN.PLANT CLERK Performed by: SAMAN Indications and Patient Condition [...] October 17, 2021 TIME: 8:54 AM CSN: [id number] [facility] 07-12-2021 Note HNO ID: [id number] Author: Shanthi Chapman APRN.PLANT CLERK Service: Anesthesiology Author Type: Nurse Assembler Movement Type: Anesthesia Procedure Notes Filed: 07/12/2021 10:54 AM Note Text: ANESTHESIOLOGY PROCEDURE NOTE Airway General Information Procedure Start Time/Medication Administration: 07/12/2021 10:48 AM Patient location during procedure: OR Patient identity confirmed: arm band, care manufacturing team leader and patient Staffing PLANT CLERK: Shanthi Chapman APRN.PLANT CLERK Performed by: PLANT CLERK Indications and Patient Condition Preoxygenated: yes Patient [...] no Airway not difficult SIGNATURE: Shanthi Chapman APRN.PLANT CLERK PATIENT NAME: Rj Colbert DATE: July 12, 2021 TIME: 10:53 AM CSN: [id number] [facility] Evaluation note Diagnosis Hematochezia- Primary Blood in stool [facility] Seasonal allergic rhinitis due to pollen- Primary Chronic constipation Unspecified constipation Chronic schizophrenia (CMS/HCC) Unspecified schizophrenia, chronic condition documented in this encounter [facility]* Diagnosis Rectal prolapse- Primary [facility] Rectal bleeding- Primary Hemorrhage of rectum and anus Chronic constipation Unspecified constipation Straining during bowel movements Other symptoms involving digestive system [facility] Diagnosis Rectal bleeding- Primary Hemorrhage of rectum and anus Chronic constipation Unspecified constipation Straining during bowel movements Other symptoms involving digestive system [facility] Diagnosis Rectal bleeding- Primary Hemorrhage of rectum and anus Chronic constipation Unspecified constipation Straining during bowel movements Other symptoms involving digestive system documented in this encounter [facility] Diagnosis Proctitis Other specified disorder of rectum and anus documented in this encounter [facility]* Diagnosis Chronic constipation- Primary Unspecified [...] in development documented [facility] this [facility] Diagnosis Onset Date Resolution Status Admit Date Chronic constipation acute Sept ember 2024 9:28am Chronic schizophrenia acute Sep tember 2024 9:28am Rectal prolapse acute July 15, 2025 9:28am Seasonal allergic rhinitis d ue to pollen acute July 15, 2025 9:28am [facility] Work Phone: InstructionsNot on filedocumented in this encounter [facility]* Attachments The following attachments cannot be sent through Care Everywhere. * Constipation in adults (Emirati) documented in this encounterProMedica Health SystemInstructionsNot on file documented in this encounterProMedica Health SystemInstructionsNot on file documented in this encounterProMedica Health SystemInstructionsNot on file documented in this encounterProMedica Health SystemInstructionsNot on file documented in this encounterProMedica Health SystemInstructionsNot on file documented in this encounterProMedica Health SystemReason for referral (narrative)No reason for referral information availableMccullough-[facility] Work Phone: Summary Purpose Family History No Family History Records FoundNo Family History Records FoundNo Family History Records FoundNo Family History Records FoundNo Family History Records FoundNo Family History Records FoundNo Family History Records FoundNo Family History Records FoundNo Family History Records Found Advance Directives No Advanced Directives Records FoundDocuments on File Type Date Recorded Patient Manager Stars Expl anation Advance Directive(s) 07/09/2021 9:04 AM Latest Code Status on File Code Status Date Activated Date Inactivated Comments Full Code 01/09/2024 4:52 AM 01/10/2024 3:12 PM Date Activated Date Inactivated Comments 01/09/2024 4:52 AM 01/10/2024 3:12 PM Date Activated Date Inactivated Comments 01/09/2024 4:52 AM 01/10/2024 3:12 PM Advance Directive Response Recorded Date/ Time Advance Directives No June 9:25am Chief Complaint and Reason for Visit Chief Complaint Admit Date Established Patient July 15, 2025 9:28am Reason for Visit Admit Date Chronic constipation July 15 9:28am Chronic schizophrenia July 15 9:28am Rectal prolapse July 15, 2025 9:28am Seasonal allergic rhinitis due to pollen July 15, 2025 9:28am Additional Source Comments (unrecognized sect ion and content) No Status Records FoundNo Status Records FoundNo Status Records FoundNo Status Records FoundNo Status Records FoundNo Status Records FoundNo Status Records FoundNo Status Records FoundNo Status Records Found INFORMATION SOURCE (unrecogn ized section and content) DATE CREATED AUTHOR 05/01/2018 [facility] DATE CREATED AUTHOR AUTHOR'S ORGANIZ ATION 10/31/2021 [facility] DATE CREATED AUTHOR AUTHOR'S ORGANIZ ATION 04/04/2023 [facility] DATE CREATED AUTHOR AUTHOR'S ORGANIZ ATION 01/27/2024 [facility] DATE CREATED AUTHOR AUTHOR'S ORGANIZ ATION 01/14/2025 [facility] EPIC DATE CREATED AUTHOR AUTHOR'S ORGANIZ ATION 01/15/2025 [facility] DATE CREATED AUTHOR AUTHOR'S ORGANIZ ATION 04/28/2025 [facility] DATE CREATED AUTHOR AUTHOR'S ORGANIZ ATION 05/14/2025 [facility] DATE CREATED AUTHOR AUTHOR'S ORGANIZ ATION 07/31/2025 [facility] Source Comments (unrecognize d section and content) In the event this informatio n is protected by the Federal Confidentiality of Alcohol and Drug Abuse Patient Records regulations: The Federal rules restrict any use of the information to criminally investigate or prosecute any alcohol or drug abuse patient.[facility] HospitalIn the event this information is protected by the Federal Confidentiality of Alcohol and Drug Abuse Patient Records regulations: The Federal rules restrict any use of the information to criminally investigate or prosecute any alcohol or drug abuse patient.[facility] HospitalIn the event this information is protected by the Federal Confidentiality of Alcohol and Drug Abuse Patient Records regulations: The Federal rules restrict any use of the information to criminally investigate or prosecute any alcohol or drug abuse patient.[facility] Reason for Visit (unrecogniz ed [...] CONSENT Specialty Diagnoses / Procedures Referred By Marcie maxwell Referred To Contact General Surgery Diagnoses Rectal bleeding History of hemorrhoids Procedures [place] OFFICE OUTPATIENT VISIT 60-74 MINS HIGH MDM [id number] (SNOMED CT) - AMB REFERRAL TO GENERAL SURGERY Benson Weiss MD [address] [place] [address] Phone: tel: fax: Megan Ahn MD [address] [place] [address] Phone: tel: fax: Referral ID Status Reason Start Date Expiration Date Visits Re quested Visits Authorized [id number] Closed 12/23/2024 06/21/2025 1 1 Reason Comments [...] Care Teams (unrecognized sec tion and content) Superintendent Construction Relationship Specialty Start Date End Date Benson Weiss MD [address] [place] [phone] PCP - General Family Medicine 01/07/24 Superintendent Construction Relationship Specialty Start Date End Date Benson Weiss MD [address] [place] [address] PCP - General Family Medicine 01/07/24 Superintendent Construction Relationship Specialty Start Date End Date Benson Weiss MD [address] [place] [phone] PCP - General Family Medicine 01/07/24 Superintendent Construction Relationship Specialty Start Date End Date Benson Weiss MD [address] [place] [address] PCP - General Family Medicine 01/07/24 Superintendent Construction Relationship Specialty Start Date End Date Benson Weiss MD [address] [place] [address] PCP - General Family Medicine 01/07/24 Superintendent Construction Relationship Specialty Start Date End Date Benson Weiss MD [address] [place] [address] PCP - General Family Medicine 01/07/24 Benson Weiss MD [address] [place] [address] PCP - ACO Reach 12/03/24 Superintendent Construction Relationship Specialty Start Date End Date Benson Weiss MD [address] [place] [address] PCP - General Family Medicine 01/08/24 Superintendent Construction Relationship Specialty Start Date End Date Benson Weiss MD PCP - General Family Medicine 01/08/24 Superintendent Construction Relationship Specialty Start Date End Date Benson Weiss MD [address] [place] [address] PCP - General Family Medicine 01/07/24 Benson Weiss MD [address] [place] [address] PCP - ACO Reach 12/03/24 Superintendent Construction Relationship Specialty Start Date End Date Benson Weiss MD [address] [place] [address] [place] [phone] PCP - General Family Medicine 03/14/25 Superintendent Construction Relationship Specialty Start Date End Date Benson Weiss MD [address] [place] [place] [phone] PCP - General Family Medicine 03/14/25 Superintendent Construction Relationship Specialty Start Date End Date Benson Weiss MD PCP - General Family Medicine 03/14/25 Superintendent Construction Relationship Specialty Start Date End Date Benson Weiss MD PCP - General Family Medicine 03/14/25 Superintendent Construction Relationship Specialty Start Date End Date Bensno Weiss MD PCP - General Family Medicine 03/14/25 Superintendent Construction Relationship Specialty Start Date End Date Benson Weiss MD PCP - General Family Medicine 03/14/25 Superintendent Construction Relationship Specialty Start Date End Date Benson Weiss MD [address] [place] [phone] PCP - General Family Medicine 01/07/24 Benson Weiss MD [address] [place] [address] PCP - ACO Reach 12/03/24 Superintendent Construction Relationship Specialty Start Date End Date Benson Weiss MD [address] [place] [phone] PCP - General Family Medicine 01/07/24 Benson Weiss MD [address] [place] [phone] PCP - ACO Reach 12/03/24 Superintendent Construction Relationship Specialty Start Date End Date Benson Weiss MD [address] [place] [address] PCP - General Family Medicine 01/07/24 Benson Weiss MD [address] [place] [address] PCP - ACO Reach 12/03/24 Team Status: Active Member Role Status Dates Benson Weiss MD Primary Care Provider Active Team Status: Active Member Role Status Dates PHYSICIAN NO FAMILY Primary Care Provider Active Start: July 09, 2025 Outside Provider Attending Provider Active Start : July 09, 2025 Team Status: Inactive Member Role Status Dates Benson Weiss MD Primary Care Provider Active S tart: July 15, 2025 End: July 15, 2025 Benson Weiss MD Attending Provider Active Star t: July 15, 2025 End: July 15, 2025 Goals (unrecognized section and content) Goals may be documented in a n alternate section FOR RECORDS PERTAINING TO PATIENTS WHO ARE [...] BE BASED ON THE PRIMARY CLINICAL RECORDS. [employer] [facility]. provides no warranty or guarantee of the accuracy or completeness of information in this document."
[2025-08-05 16:30] LABS: Hematocrit 39.5 % (42.0-54.0); Hemoglobin 11.8 g/dL (14.0-18.0); Immature Granulocytes Abs Auto 0.01 10^3/uL (0.00-0.03); Immature Granulocytes Pct Auto 0.2 % (0.0-0.5); Lymphocytes Absolute Auto 1.7 10^3/uL (1.2-3.8); Mean Corpuscular HGB Conc 29.9 g/dL (29.9-35.2); Mean Corpuscular Hemoglobin 21.8 pg (25.9-34.0); Mean Corpuscular Volume 72.9 fL (80.0-94.0); Platelet Count 257 10^3/uL (150-450); Red Blood Count 5.42 10^6/uL (4.70-6.10); White Blood Count 6.5 10^3/uL (4.0-11.0)
== END 2025-08-05 15:54 | disposition home or self-care (01) ==
PROVIDERS: PCP Family Medicine; Visit Provider Registered Nurse Psychiatric/Mental Health
DX: Z79.899 Other long term (current) drug therapy (principal)
CPT/HCPCS: 36415; 85025

== ENCOUNTER 2025-09-06 15:01 | Outpatient (OUT) | payer MEDICARE, MEDICAID, SELFPAY ==
--- OUTSIDE RECORDS SUMMARY | 2025-09-06 15:04 | XMS_ITS | Clinical Summary ---
Author Organization [facility] Address [id number] [address] [place] [address] Care Team Providers Care Master Chef Name Role Phone Benson Yun MD Primary Care Provider [phone] Allergies No known active allergies Medications MedicationSigDispense QuantityRefillsLast FilledStart DateEnd DateStatus benztropine (COGENTIN) 2 mg tablet Take 1 tablet (2 mg total) by mouth in the morning and 1 tablet (2 mg total) before bedtime.Active clonazePAM (KlonoPIN) 0.5 mg tablet Take 1 tablet (0.5 mg total) by mouth in the morning and 1 tablet (0.5 mg total) at noon and 1 tablet (0.5 mg total) before bedtime.Active cloZAPine (CLOZARIL) 200 mg tablet Take 1.5 tablets (300 mg total) by mouth nightly.Active polycarbophil (FIBERCON) 625 mg tablet Take 1 tablet (625 mg total) by mouth in the morning and 1 tablet (625 mg total) before bedtime.Active FLUoxetine (PROzac) 40 MG capsule Take 1 capsule (40 mg total) by mouth in the morning and 1 capsule (40 mg total) before bedtime.Active haloperidol (HALDOL) 10 mg tablet Take 1 tablet (10 mg total) by mouth in the morning and 1 tablet (10 mg total) before bedtime.Active loratadine (CLARITIN) 10 mg tablet Take 1 tablet (10 mg total) by mouth in the morning.Active risperiDONE (RisperDAL) 1 mg tablet Take 1 tablet (1 mg total) by mouth in the morning and 1 tablet (1 mg total) before bedtime.Active docusate sodium (COLACE) 100 mg capsule Take 1 capsule (100 mg total) by mouth in the morning.Active ibuprofen (MOTRIN) 800 mg tablet Take 1 tablet (800 mg total) by mouth every 8 (eight) hours as needed for pain. 30 tablet 3Active acetaminophen (TYLENOL EXTRA STRENGTH) 500 mg tablet Take 2 tablets (1,000 mg total) by mouth every 6 (six) hours as needed for pain. 30 tablet 4Active cloZAPine (CLOZARIL) 100 mg tablet Take 1 tablet (100 mg total) by mouth in the morning and 1 tablet (100 mg total) at noon and 1 tablet (100 mg total) before bedtime.5Active polyethylene glycol (GLYCOLAX) 17 gram packet Indications:Chronic constipationTake 17 g by mouth 2 (two) times a day as needed (1-2 times daily as needed). 60 packet 5Active hydrocortisone-pramoxine (PROCTOFOAM-HS) rectal foam Indications:ProctitisInsert 1 applicator into the rectum in the morning and 1 applicator before bedtime. 10 g 5Active Active Problems ProblemNoted DateDiagnosed DateRectal presgetj97/15/2024 Immunizations ImmunizationAdministration DatesNext DueCOVID-19, mRNA, LNP-S, PF, 30mcg/0.3mL Dose12/08/2020,1231VRgM00/25/2005DTaP / Hep B / IPV07/18/2004DTaP, Nhtljivhgja80/15/2003,1998Hep A, 2 Dose08/17/2008,02/02/2008Hep B, Adolescent or Hvjythoii28/15/2003,1998,1998HiB02/08/2003,1998 Influenza, Im Pediatric (Pf)08/28/2016Influenza, Im Trivalent Preservative 08/16/2015Influenza, Injectable, quadrivalent (PF)08/31/2020,08/18/2019, 08/21/2017MMR07/17/2004,02/08/2003Meningococcal WNY0F7408/28/2016Polio, Axarcpidbfi15/15/2003,1998Tdap1,12/02/2017,08/07/2011Varicella 02/02/2008,02/08/2003 Family History Medical HistoryRelationNameCommentsNo Known ProblemsFatherNo Known Problems MotherRelationNameStatusCommentsFatherAliveMotherAlive Social History Tobacco UseTypesPacks/DayYears UsedDateSmoking Tobacco: NeverSmokeless Tobacco: Never Tobacco Cessation:Counseling Given: No Alcohol UseStandard Drinks/WeekCommentsNever0 (1 standard drink = 0.6 oz pure alcohol)[facility] UtilitiesAnswerDate RecordedIn the past 12 months has the [employer], gas, oil, or water company threatened to shut off services in your home?No 4AUDIT-CAnswerDate RecordedQ1: How often do you have a drink containing alcohol?Never01/09/2024Q2: How many drinks containing alcohol do you have on a typical day when you are drinking?Patient does not drink01/09/2024Q3: How often do you have six or more drinks on one occasion?Never4PRAPARE - TransportationAnswerDate RecordedIn the past 12 months, has lack of transportation kept you from medical appointments or from getting medications?No 01/09/2024In the past 12 months, has lack of transportation kept you from meetings, work, or from getting things needed for daily living?No01/09/2024 Housing InstabilityAnswerDate RecordedAre you worried or concerned that in the next two months you may not have stable housing that you own, rent or stay in as a part of a household?No4ChildcareAnswerDate RecordedChildcareUnknown 04/01/2019EmploymentAnswerDate VhjlepmuLfqgpcxoczPktjdym22/06/2019Hunger ScreeningAnswerDate RecordedWithin the past 12 months we worried whether our food would run out before we got money to buy more.Never True01/09/2024Within the past 12 months the food we bought just didn't last and we didn't have money to get more.Never True4Purpose - LifeAnswerDate RecordedPurpose and direction in sfzbYoiscea67/25/2021ex and Gender InformationValueDate Recorded Sex Assigned at BirthNot on fileLegal NsuIcfq7406/01/2015 11:54 AM EDTGender IdentityNot on fileSexual OrientationNot on file Last Filed Vital Signs Vital SignReadingTime TakenCommentsBlood Iydysngp319/7307 8:15 AM EDT Qdewb216005/02/2025 8:15 AM UHURqtzyokzcre14.2 ??C (97.2 ??F)05/02/2025 6:34 AM EDTRespiratory Zkis904105/02/2025 8:00 AM EDTOxygen Hyrbldgnhb344%05/02/2025 8:15 AM EDTInhaled Oxygen Concentration--Zflnza97.5 kg (204 lb)05/02/2025 6:34 AM EDT Arwoby118.8 cm (5' 10 )05/02/2025 6:34 AM EDTBody Mass Index29.27005/02/2025 6:34 AM EDT Plan of Treatment Health MaintenanceDue DateLast DoneCommentsDepression Wxumaymve37/15/2010dult BMI Follow Up Plan2016COVID-19 Vaccine ( season)2025 12/08/2020, 11/17/2020Influenza Ujidjel29/02/2020, 08/18/2019, 08/21/2017, Additional history existsAdult BMI Jyebeupgf44 Tobacco Zjpsrcsyv90DTaP,Tdap and Td Vaccines (8 - Td or Tdap) , 12/02/2017, 08/07/2011, Additional history exists Goals GoalPatient Goal TypeAssociated ProblemsRecent ProgressPatient-Stated?Author home GeneralYesMStefania dumont RN Note: Evaluation of progress towards goal: Guardian, Soren, states back to nursing home. Medical Devices Not on file Insurance Advance Directives * Full Code (Latest Code Status on File) Date ActivatedDate InactivatedComments01/09/2024 4:52 AM01/10/2024 3:12 PM Care Teams Team MemberRelationshipSpecialtyStart DateEnd Date Benson Yun MD PCP - GeneralFamily Medicine03/14/25
--- OUTSIDE RECORDS SUMMARY | 2025-09-06 15:04 | XMS_ITS | Clinical Summary ---
Author Organization [facility] Address [address] [place] [address] Care Team Providers Care Organisational Psychologist Name Role Phone Benson Yun MD Primary Care Provider [phone] Benson Yun MD Unavailable Allergies No known active allergies Medications MedicationSigDispense QuantityRefillsLast FilledStart DateEnd DateStatus clonazePAM (KlonoPIN) 0.5 MG tablet Take 0.5 mg by mouth in the morning and 0.5 mg in the evening.Active benztropine (Cogentin) 2 MG tablet Take 2 mg by mouth in the morning and 2 mg in the evening.Active haloperidol (Haldol) 10 MG tablet Take 10 mg by mouth in the morning and 10 mg in the evening.Active FLUoxetine (PROzac) 40 MG capsule Take 40 mg by mouth in the morning and 40 mg in the evening.Active Docusate Sodium (DSS) 100 MG capsule Indications:Chronic constipationTake 1 capsule (100 mg) by mouth in the morning. 60 capsule 4Active loratadine (Claritin) 10 MG tablet Indications:Seasonal allergic rhinitis due to pollenTake 1 tablet (10 mg) by mouth in the morning. 30 tablet 11012/21/5707236Active polycarbophil (Fiber-Lax) 625 MG tablet Indications:Chronic constipationTake 1 tablet (625 mg) by mouth Daily 30 tablet 5Active Hydrocort-Pramoxine, Perianal, 1-1 % foam Indications:Rectal inflammationInsert 1 applicator into the rectum in the morning and 1 applicator before bedtime. 10 g 1105Active Active Problems ProblemNoted DateDiagnosed DateRP (rectal prolapse)06/16/2025Rectal inflammation 05/19/2025Personal care ffzvgoytwi06/19/2025Chronic ijcjyytiljdk67/13/2024 Assessment & Plan (01/12/2025 10:05 AM EDT): Recent bleeding and worsening constipation. Surgeon added miralax and continue. Avoid straining andmonitor. Assessment & Plan (07/14/2024 10:07 AM EDT): BM every few days and resume daily fiber supplement. Assessment & Plan (01/07/2024 10:51 AM EDT): Regular BM and continue medication. Increase dietary fiber and water intake. Cpilvsf3601/07/2024Mild intellectual ffmrxbliweon56/13/2024 Assessment & Plan (01/07/2024 10:52 AM EDT): No behavior problems and monitor. Oppositional defiant rotpeylb81/13/2024Chronic dzlklvlfewfam98/13/2024 Assessment & Plan (01/12/2025 10:05 AM EDT): No behavior problems and follow up with psychiatry. Assessment & Plan (07/14/2024 10:07 AM EDT): No behavior problems and follow up with psychiatry. Assessment & Plan (01/07/2024 10:51 AM EDT): No behavior problems and follow up with psychiatry. Tic disorder, fcctqujampo24/13/2024Seasonal allergic rhinitis due to pollen 01/07/2024 Assessment & Plan (01/12/2025 10:05 AM EDT): Symptoms controlled with medication and continue. Assessment & Plan (07/14/2024 10:07 AM EDT): Symptoms controlled with medication and continue. Assessment & Plan (01/07/2024 10:51 AM EDT): Symptoms controlled with medication and continue. Developmental delay07/10/2021 Overview (01/07/2024): Last Assessment & Plan: Assessment: patient is verbal, cooperative, and ambulatory Assessment & Plan (01/07/2024 10:52 AM EDT): No behavior problems and monitor. Encounters DateTypeDepartmentCare TatjGystnbahnxe89/20/2025Telephone [facility] [address] [place] [address] Benson Yun MD 06/09/2025linisync Result Encounter [facility] External Department Unsolicited Provider, Generic External Data from Last 3 Months Family History RelationNameStatusCommentsFatherAliveMotherAlive Social History Tobacco UseTypesPacks/DayYears UsedDateSmoking Tobacco: Never Tobacco Cessation:Counseling Given: Not Answered Alcohol UseStandard Drinks/WeekCommentsNot Currently0 (1 standard drink = 0.6 oz pure alcohol)Sex and Gender InformationValueDate RecordedSex Assigned at Not on fileLegal PtgQisi0402/27/2023 12:16 PM EDTGender IdentityNot on fileSexual OrientationNot on file Last Filed Vital Signs Vital SignReadingTime TakenCommentsBlood Eehktdmh978/66001/12/2025 9:42 AM EDT Zyzrv67895/19/2025 9:42 AM SKZRybbemnrydb12.3 ??C (97.3 ??F)01/12/2025 9:42 AM EDTRespiratory Kpbm377001/12/2025 9:42 AM EDTOxygen Smblwkbwsr54%01/12/2025 9:42 AM EDTInhaled Oxygen Concentration--Wdzeip76.9 kg (207 lb)01/12/2025 9:42 AM EDT Vvmaxw872.8 cm (5' 10 )01/12/2025 9:42 AM EDTBody Mass Index29.7001/12/2025 9:42 AM EDT Plan of Treatment Health MaintenanceDue DateLast DoneCommentsCOVID-19 Vaccine (2024- season) 502/09/2021, 11/17/2020Influenza Vaccine (#1)511/02/2020, 08/18/2019, 08/21/2017, Additional history existsMedicare Annual Wellness (AWV) 603/ (Patient Refused)Pneumococcal Vaccine: Pediatrics (0 to 5 Years) and At-Risk Patients (6 to 64 Years)Aged OutNo longer eligible based on patient's age to complete this topic Procedures Procedure NamePriorityDate/TimeAssociated DiagnosisCommentsALL CBC WITH AUTO WTLHCaedehv01/14/2025 4:29 PM EDT from Last 3 Months Results * (ABNORMAL) ALL CBC WITH AUTO DIFF (06/09/2025 4:29 PM EDT)ComponentValueRef RangeTest MethodAnalysis TimePerformed AtPathologist SignatureTBH WBC5.24.0 - 11.0 10 3/uLTBHTBH RBC5.534.70 - 6.10 10 6/uLTBHTBH HGB11.9(L)14.0 - 18.0 g/dL TBHTBH HCT40.2(L)42.0 - 54.0 %TBHTBH MCV72.7(L)80.0 - 94.0 fLTBHTBH MCH21.5(L) 25.9 - 34.0 pgTBHTBH MCHC29.6(L)29.9 - 35.2 g/dLTBHTBH RDW16.8(H)11.0 - 15.0 % TBHTBH AIP043489 - 450 10 3/uLTBHTBH MPV10.39.5 - 13.5 fLTBHNEUTROPHILS PERCENT AUTO55.243.0 - 75.0 %TBHLYMPHOCYTES PERCENT AUTO31.020.5 - 60.0 %TBH MONOCYTES PERCENT AUTO9.91.7 - 12.0 %TBHTBH EO %2.90.9 - 7.0 %TBHBASOPHILS PERCENT AUTO0.80.2 - 2.0 %TBHIMMATURE GRANULOCYTES PCT AUTO0.20.0 - 0.5 %TBH NEUTROPHILS ABSOLUTE AUTO2.91.4 - 6.5 10 3/uLTBHLYMPHOCYTES ABSOLUTE AUTO1.6 1.2 - 3.8 10 3/uLTBHMONOCYTES ABSOLUTE AUTO0.50.3 - 0.8 10 3/uLTBHTBH EO #0.2 0.0 - 0.7 10 3/uLTBHBASOPHILS ABSOLUTE AUTO0.00.0 - 0.1 10 3/uLTBHIMMATURE GRANULOCYTES ABS AUTO0.010.00 - 0.03 10 3/uLTBHSpecimen (Source)Anatomical Location / LateralityCollection Method / VolumeCollection TimeReceived Time 06/09/2025 4:29 PM EDT06/09/2025 4:29 PM EDT Narrative CLIN[facility]YNC - 06/09/2025 4:37 PM EDT Authorizing ProviderResult TypeResult StatusGeneric External Data Provider CLINISYNCFinal ResultPerforming OrganizationAddressCity/State/ZIP CodePhone Number CLINISYNC [facility] from Last 3 Months Insurance Care Teams Team MemberRelationshipSpecialtyStart DateEnd Date Benson Yun MD [facility]01/07/24 Benson Yun MD [address] [place] [address] [facility]12/03/24
--- OUTSIDE RECORDS SUMMARY | 2025-09-06 15:08 | XMS_ITS | CCD ---
Author Organization [facility] Care Team Providers Care Printer Slotter Feeder Name Role Phone Salam, Shaw Unavailable Unavailable Salam, Shaw Unavailable Unavailable Salam, Shaw Unavailable Unavailable NADERERBENSON~[phone] UNKNOWN Unavailable Unavailable Salam, Shaw Unavailable Unavailable Salam, Shaw Unavailable Unavailable Salam, Shaw Unavailable Unavailable NADERERBENSON~[phone] UNKNOWN Unavailable Unavailable Unavailable Primary Care Provider [...] Unavailable Isela GAUTAM, Benson Primary Care Provider [phone] Benson Weiss MD Unavailable Benson Weiss MD Primary Care Provider Benson Weiss MD Primary Care Provider [phone] BENSON WEISS Attending Unavailable BENSON WEISS Attending Unavailable Jean Carlos Hdez Attending Unavailab le Jean Carlos Hdez Admitting Unavailab le NO FAMILY, PHYSICIAN Primary Care Unavailable Benson Weiss MD Primary Care Provider Benson Weiss MD Primary Care Provider [phone] LAILA GONZALEZ Attending Unavailable BENSON WEISS Referring [...] Unavailable Benson Weiss MD Primary Care Provider [phone] Benson Weiss MD Attending Provider CRISTAL NAVA Attending Unavailable JUANA HARPER Attending Unavailable BENSON WEISS Referring Unavailable CORNELIUS GREWAL JR Attending Unavailable CORNELIUS GREWAL JR Referring Unavailable Allergies Allergy ClassificationReported Allergen(s)Allergy TypeDate of OnsetReaction(s) Facility (1 source)No Known Medication Allergies; Translations: [No Known Medication Allergies]Propensity to adverse reactions (disorder)[facility] Repository Medications Current Medications MedicationDrug Class(es)DatesSig (Normalized)Sig (Original)acetaminophen 500 mg oral tablet (20 sources)Start: 01-10-2024 End: 89-32-3787uara 2 tablets by mouth every six hours as needed for pain acetaminophen (TYLENOL EXTRA STRENGTH) 500 mg tablet Take 2 tablets (1,000 mg total) by mouth every6 (six) hours as needed for pain. 30 tablet 01/10/2024 ActiveStart: 50-32-7429gpjb 2 tablets by mouth every six hoursacetaminophen (TYLENOL) 325 mg tablet Take 2 tablets by mouth every 6 hours. 0 10/17/2021 ActiveComment on above:Take 2 tablets by mouth every 6 hours.benztropine mesylate 2 mg oral tablet (20 sources)Anticholinergic, AntihistamineStart: 49-71-2336proo 1 tablet by mouth twice dailyBenztropine 2 mg tablet Active 2 MG PO Twice daily July 14, 2025 12:00am Complies with drug therapytake 1 tablet by mouth in the morningbenztropine (Cogentin) 2 MG tablet Take 2 mg by mouth in the morning and 2 mg in the evening. ActiveComment on above:Take 2 mg by mouth twice daily. calcium polycarbophil 625 mg oral tablet (20 sources)Start: 92-37-9201Wlzctsz Polycarbophil 625 mg tablet Active 1250 MG PO Daily July 14, 2025 12:00am Complies with drug therapyStart: 13-59-6857nwti 1 tablet by mouth once dailyCalcium Polycarbophil (Fiber-Lax) 625 mg tablet Active 625 MG PO Daily July 04, 2025 12:00am Complies with drug therapyStart: 34-21-9619traf 1 tablet by mouth once dailypolycarbophil (Fiber-Lax) 625 MG tablet Indications: Chronic constipation Take 1 tablet (625 mg) bymouth Daily 30 tablet 5 02/02/2025 ActiveComment on above:Take 625 mg by mouth.clonazePAM 0.5 mg oral tablet (20 sources)BenzodiazepineStart: 65-59-4092rjww 1 tablet by mouth twice daily Clonazepam 0.5 mg tablet Active 0.5 MG PO Twice daily July 14, 2025 12:00am Complies with drug therapytake 1 tablet by mouth in the morning clonazePAM (KlonoPIN) 0.5 MG tablet Take 0.5 mg by mouth in the morning and 0.5 mg in the evening. Activetake 1 tablet by mouth every twelve hours as needed clonazePAM (KLONOPIN) 1 mg tablet Take 1 mg by mouth twice daily as needed. 0 ActiveComment on above:Take 1 mg by mouth twice daily as needed.cloZAPine 100 mg oral tablet (18 sources)Atypical AntipsychoticStart: 83-48-5464uqxPWXrel (CLOZARIL) 100 mg tablet Take 1 tablet (100 mg total) by mouth in the morning and 1 tablet (100 mg total) at noon and 1 tablet (100 mg total) before bedtime. 01/04/2025 Active Start: 01-30-5265mehOGKnnn (CLOZARIL) 100 mg tablettake 1.5 tablets by mouth once dailycloZAPine (CLOZARIL) 200 mg tablet Take 1.5 tablets (300 mg total) by mouth nightly. Activedocusate sodium 100 mg oral capsule (20 sources)Start: 02-25-6564ofua 1 capsule by mouth once dailyDocusate Sodium 100 mg capsule Active 100 MG PO Daily July 14, 2025 12:00am Complies with drug therapyStart: 77-20-7336bchr 1 capsule by mouth in the morningDocusate Sodium (DSS) 100 MG capsule Indications: Chronic constipation Take 1 capsule (100 mg) by mouth in the morning. 60 capsule 5 09/28/2024 ActiveComment on above:Take 100 mg by mouth twice daily.FLUoxetine 40 mg oral capsule (20 sources)Serotonin Reuptake InhibitorStart: 50-87-5360qavx 1 capsule by mouth twice daily in the morningFluoxetine 40 mg capsule Active 40 MG PO Twice daily July 14, 2025 12:00am administer in themorning and at noon/midday Complies with drug therapytake 1 capsule by mouth in the morningFLUoxetine (PROzac) 40 MG capsule Take 40 mg by mouth in the morning and 40 mg in the evening. Activetake 1 capsule by mouth twice dailyFLUoxetine (PROzac) 40 MG capsule Take 40 mg by mouth 2 (two) times a day. 0 ActiveComment on above:Take 40 mg by mouth once daily.haloperidol 10 mg oral tablet (20 sources)Typical AntipsychoticStart: 66-49-4772pffn 1 tablet by mouth twice dailyHaloperidol 10 mg tablet Active 10 MG PO Twice daily July 14, 2025 12:00am Complies with drug therapytake 1 tablet by mouth in the morning haloperidol (Haldol) 10 MG tablet Take 10 mg by mouth in the morning and 10 mg in the evening. Activetake 1 tablet by mouth twice dailyhaloperidol (HALDOL) 10 mg tablet Take 10 mg by mouth 2 (two) times a day. 0 ActiveComment on above:Take 10 mg by mouth four times daily.hydrocortisone acetate 10 mg/ml / pramoxine hydrochloride 10 mg/ml topical foam (11 sources)CorticosteroidStart: 05-83-9194Riekqmylbijnad-Pramoxine 1-1 % foam Active 1 APPLIC TOPICAL Twice daily as needed July 14, 2025 12:00am allow at least 3 hours between applications Complies with drug therapyStart: 91-59-1099Ykxkvpxch-Pramoxine, Perianal, 1-1 % foam Indications: Rectal inflammation Insert 1 applicator intothe rectum in the morning and 1 applicator before bedtime. 10 g 11 05/19/2025 ActiveStart: 05-11-2025 End: 50-38-7340Jtjmvmpam-Pramoxine, Perianal, 1-1 % foam Insert 1 applicator into the rectum in the morning and 1 applicator in the evening. 05/11/2025 05/19/2025 Discontinued (Reorder)Start: 03-24-2025 End: 77-33-9254yvtmdntlbyxwhb-pramoxine (PROCTOFOAM-HS) rectal foam Indications: Proctitis Insert 1 applicator into the rectum in the morning and 1 applicator before bedtime. 10 g 1 05/11/2025 Activeibuprofen 800 mg oral tablet (11 sources)Nonsteroidal Anti-inflammatory DrugStart: 26-77-3806lysa 1 tablet by mouth every eight hours as needed for painibuprofen (MOTRIN) 800 mg tablet Take 1 tablet (800 mg total) by mouth every 8 (eight) hours as needed for pain. 30 tablet 01/16/2023 ActiveStart: 41-38-0348jdcf 2 tablets by mouth every four hours as neededibuprofen (MOTRIN) 200 mg tablet Take 2 tablets by mouth every 4 hours as needed for pain. 0 10/17/2021 ActiveComment on above:Take 2 tablets by mouth every 4 hours as needed for pain.loratadine 10 mg oral tablet (20 sources)Start: 12-21-2024 End: 47-65-7107rzrc 1 tablet by mouth once dailyLoratadine (Allergy Relief (Loratadine)) 10 mg tablet Active 10 MG PO Daily July 14, 2025 12:00am Complies with drug therapyStart: 12-18-2023 End: 03-66-7046nzym 1 tablet by mouth in the morningloratadine (Claritin) 10 MG tablet Indications: Seasonal allergic rhinitis due to pollen Take 1 tablet (10 mg) by mouth in the morning. 30 tablet 11 12/18/2023 12/17/2024 ActiveComment on above:Take 10 mg by mouth.Magnesium Carbonate powd (3 sources)Start: 03-28-2022 End: 14-58-9934Dqcbafhyr Carbonate powd 4 g daily at bedtime. Used for constipation 28 g 3 03/28/2022 06/26/2022 ActiveComment on above:4 g daily at bedtime. Used for constipationpeg 3350-sod sulf,fvrd-zbw-akr 178.7-7.3-0.5 gram recon soln (2 sources)Start: 04-26-2025 End: 38-78-5212ria 3350-sod sulf,ujgv-kjr-clu 178.7-7.3-0.5 gram recon soln Indications: Rectal bleeding Take 1 kit by mouth in the morning for 1 dose. Please see instructional sheet given by physicians office. 1 each 04/26/2025 04/27/2025 ActiveStart: 03-14-2025 End: 45-50-3447oyf 3350-sod sulf,fxgk-lko-rpj 178.7-7.3-0.5 gram recon soln Indications: Rectal bleeding , Chronicconstipation Take 1 kit by mouth in the morning for 1 dose. Please see instructional sheet given byphysicians office. 1 each 03/14/2025 03/15/2025 Activepolyethylene glycol 3350 82846 mg powder for oral solution (12 sources)Osmotic LaxativeStart: 01-07-2025 End: 14-03-3576beyztcybreld glycol (GLYCOLAX) 17 gram packet Indications: Chronic constipation Take 17 g by mouth 2 (two) times a day as needed (1-2 times daily as needed). 60 packet 1 01/07/2025 ActiveStart: 12-88-0861lfwx 1 dose by mouth once dailypolyethylene glycol 3350 (MIRALAX) 17 gram packet Indications: Rectal ulcer Take 1 Packet by mouth once daily. 30 Packet 5 06/02/2018 Active Comment on above:Take 1 Packet by mouth once daily.risperiDONE 1 mg oral tablet (11 sources)Atypical Antipsychotictake 1 tablet by mouth in the morning, then take 1 tablet by mouth at bedtimerisperiDONE (RisperDAL) 1 mg tablet Take 1 tablet (1 mg total) by mouth in the morning and 1 tablet(1 mg total) before bedtime. ActiveComment on above:Take 1 mg by mouth. Problems Active Problems Problem ClassificationProblemDateDocumented DateEpisodic/ChronicAbdominal pain (1 source)Generalized abdominal pain; Translations: [Generalized abdominal pain] Onset: 70-09-1339WachhtbaLlwispnbtegiba/social admission (8 sources)Personal care impairment; Translations: [Need for assistance with personal care]Onset: 114205-88-7654KpnxcntyRobz and rectal conditions (20 sources)Rectal prolapse; Translations: [Rectal pain]Onset: 01-09-2024 67-84-6433LzgphkyiBxwapecpv-deficit, conduct, and disruptive behavior disorders (17 sources)Oppositional defiant disorder; Translations: [Oppositional defiant disorder]Onset: 135012-46-7820HtxnfhyQiftuxnkborfz disorders (17 sources)Mild intellectual disability; Translations: [Mild intellectual disabilities]Onset: 655117-49-7720MmmpzbnLjceyzgym usually diagnosed in infancy, childhood, or adolescence (17 sources)Tic disorder; Translations: [Tic disorder, unspecified]Onset: 747176-04-8572NsidcleTtkhsujoxfitnkeg hemorrhage (9 sources)Blood-tinged feces; Translations: [Melena]Onset: 24-54-3780Tmdjdzsj Malaise and fatigue (17 sources)Fatigue; Translations: [Other fatigue]Onset: EpisodicOther aftercare (4 sources)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; Translations: [OTH JAIL CURRENT DRUG THERAPY]Onset: 77-59-9011MeacejjiCoopf connective tissue disease (1 source)Other specified disorders of muscle; Translations: [Pelvic floor dysfunction]Onset: 83-54-5575XvfeaoflAcwih gastrointestinal disorders (20 sources)Chronic constipation; Translations: [Other constipation]Onset: 795230-58-1016IkrmnitzAbikq gastrointestinal disorders (3 sources)Defecation straining; Translations: [Other specified symptoms and signs involving the digestive system and abdomen]52-81-2916LvagwaslSvavd gastrointestinal disorders (1 source)Other specified symptoms and signs involving the digestive system and abdomen; Translations: [Otherspecified symptoms and signs involving the digestive system and abdomen]Onset: 84-58-2054XvfmcsnxWnmfa gastrointestinal disorders (1 source)Constipation, unspecified; Translations: [Constipation, unspecified constipation type]Onset: 57-77-5804MbqjjiqjQvokx nutritional; endocrine; and metabolic disorders (20 sources)Developmental delay; Translations: [Unspecified lack of expected normal physiological development in childhood]Onset: EpisodicOther upper respiratory disease (20 sources)Allergic rhinitis due to pollen; Translations: [Allergic rhinitis due to pollen]Onset: 392197-28-6852XtsnekfPilpnrabviuea and other psychotic disorders (20 sources)Schizophrenia; Translations: [Schizophrenia, unspecified]Onset: 294494-04-7790LmtirofGkxkqwyronkx (1 source)Post-opOnset: 28-08-8636Vrwayanywtst (1 source)Medical ProblemOnset: 29-43-7723Kepvjshgurzd (1 source)[place] transferOnset: 34-87-8395Srkygknimcot (4 sources)Autogenerated ProblemOnset: Past or Other Problems Problem ClassificationProblemDateDocumented DateEpisodic/ChronicHemorrhoids (3 sources)Hemorrhoids; Translations: [Unspecified hemorrhoids]Onset: 10-17-2021 16-45-9751UkvycbugBdzys gastrointestinal disorders (1 source)Other constipation; Translations: [Other constipation]Onset: 76-02-2525Tkwldvue Results Test NameValueInterpretationReference RangeFacilityCNOVon 93-39-3750YIOAZtrszv Visit ([facility]) RJ COLBERT ([id number]) 2000 Date Time Provider Department 08/26/25 2:20 PM CORNELIUS GREWAL JR [facility] During your visit today, we recorded the following information about you: Temperature Pulse Blood pressure Weight 97.9 degrees 88/minute 119/82 91.7 kg Cornelius Grewal Jr., 08/26/2025 2:37 PM Signed Patient presents with: Constipation Constipation HPI: Rj Colbert, 25 year old male, with a history of rectal prolapse, accompanied by his guardian, who provides additional history. He presents with explosive, liquid diarrhea and fecal incontinence, which have been ongoing since starting twice daily Miralax for chronic constipation. He reports 2-3 episodes of explosive, watery diarrhea per week, often occurring during sleep, resulting in soiling of his bed and clothing. He is typically unaware of these episodes until after they occur. His guardian notes that he is supposed to take Miralax twice daily, but even with once-daily dosing, he experiences frequent, uncontrolled diarrhea. He reports no associated abdominal pain, but does note a mild burning sensation with straining if he skips Miralax. He denies hematochezia. He has undergone two colonoscopies in the past 2 months, both of which were incomplete due to inadequate bowel preparation. He has not had any recent abdominal imaging. - (06/26/2025) Colonoscopy: Inadequate bowel preparation. - Colonoscopy: Inadequate bowel preparation. Past GI workup 07/26/25 office visit notes per TOMAS Quezada, as follows: History of Present Illness: The patient is a 25-year-old male with chronic constipation and recurrent rectal prolapse, presenting for evaluation of ongoing rectal prolapse and constipation. He is accompanied by his business continuity management director, who provides additional history. He reports a history of rectal prolapse, for which he underwent surgical resection approximately 2 years ago in [place] by Dr. Laila Nunez. He experienced significant [...] move tea, docusate, fiber Primary GI: Dr. aGlo Stool consistency: he was unable to say what the consistency is. + hematochezia. Time in bathroom: hours PMH: developmental delay, presents with his business continuity management director PSH: Rubber band ligation on 07/12/21 and Hemorrhoid Ablation on 10/17/21. [facility] [place] [facility]25 Colonoscopy was done for Rectal bleeding, per Veronica Galo, DO - Preparation of the colon was unsatisfactory. - Lax anal sphincter tone found on digital exam. - Congested, erythematous, eroded, friable (with contact bleeding), inflamed and ulcerated mucosa in the mid rectum. Biopsied. - The examination was otherwise normal Path as follows: Rectum, biopsy: Acute inflammation with extensive ulceration. GMS special stain is negative for fungal organisms. CMV immunostain is negative. HSV immunostain is negative. 07/19/21 CT ABD/PEL WO IVCON IMPRESSION: Chronic proctitis. Worsening chronic constipation with large amounts of stool in the proximal, mid: Without evidence for obstruction. Component 06/09/25 05/11/25 03/30/25 03/01/25 02/02/25 01/04/25 [facility] WBC 5.2 6.5 6.3 5.4 6.9 6.1 TBH RBC 5.53 5.95 5.47 6.15 High 6.07 5.89 TBH HGB 11.9 Low 12.5 Low 11.6 Low 12.4 Low 12 Low 11.5 Low TBH HCT 40.2 Low 43.6 39.2 Low 43.3 42.1 40.7 Low TBH MCV 72.7 Low 73.3 Low 71.7 Low 70.4 Low 69.4 Low 69.1 Low TBH MCH 21.5 Low 21 Low 21.2 Low 20.2 Low 19.8 Low 19.5 Low TBH MCHC 29.6 Low 28.7 Low 29.6 Low 28.6 Low 28.5 Low 28.3 Low TBH RDW 16.8 High 17.9 High 19.3 High 20.8 High 21.2 High 20.9 High TBH PLT 271 295 304 295 274 256 TBH MPV 10.3 10.4 10.7 9.7 -- 10.3 NEUTROPHILS PERCENT AUTO 55.2 64.7 55.3 58.1 66.4 65.5 LYMPHOCYTES PERCENT AUTO 31 21.7 26 (more content not included)...Normal [facility] CenterXR ACUTE ABD SERIES 2V ABD+CXRon [id number] ACUTE ABD SERIES 2V ABD+CXR* * *Final Report* * * DATE OF EXAM: Aug 26 2025 2:43PM SVX [id number] - XR ACUTE ABD SERIES 2V ABD+CXR / PROCEDURE REASON: multiple diagnoses * * * * Physician Interpretation * * * * EXAMINATION / TECHNIQUE: XR ACUTE ABD SERIES 2V ABD+CXR PATIENT/TECHNOLOGIST PROVIDED HISTORY: constipation CLINICAL INFORMATION ( PROVIDED BY ORDERING CLINICIAN) : Constipation, unspecified constipation type Generalized abdominal pain COMPARISON: None RESULT: No focal consolidation. No pleural effusion. No pneumothorax. Normal cardiomediastinal silhouette. There appears to be a large amount of colonic stool, although true stool burden is suboptimally evaluated with abdominal radiographs. No dilated, gas-filled small bowel. No evidence of pneumoperitoneum on the upright view. No radiopaque calculus over either kidney. IMPRESSION: No acute abnormality in the chest. Large amount of colonic stool. Network Control Supervisor: PSCB Transcribe Date/Time: Aug 31 2025 4:32P Dictated by : KATHIE DELAROSA MD This examination was interpreted and the report reviewed and electronically signed by: KATHIE DELAROSA MD on Aug 31 2025 4:35PM EST [id number] Medical Center [id number] Office Visit ([facility]) RJ COLBERT ([id number]) 2000 M Date Time Provider Department 07/26/25 10:40 AM JUANA HARPER [facility] During your visit today, we recorded the following information about you: Temperature Pulse Blood pressure Weight 97.3 degrees 78/minute 119/82 94.8 kg Height 1.803 m Juana Harper MD 07/26/2025 2:23 PM Signed COLORECTAL SURGERY July 26, 2025 Rj Colbert This consult was requested by Dr. Benson Weiss and my final recommendations will be communicated to the requesting health care provider by way of the shared medical record for internal providers or letter via the [place] [employer] for external providers. Recording using [employer] software for draft documentation of the visit was discussed with the patient/authorized employee's representative; all questions welcomed and answered. Patient/authorized employee's representative agreed to proceed Chief Complaint: rectal prolapse History of Present Illness: The patient is a 25-year-old male with chronic constipation and recurrent rectal prolapse, presenting for evaluation of ongoing rectal prolapse and constipation. He is accompanied by his business continuity management director, who provides additional history. He reports a history of rectal prolapse, for which he underwent surgical resection approximately 2 years ago in [place] by Dr. Laila Nunez. 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 Had a rectal prolapse surgery in [place] 2 years ago (Laila Frazier) Current smoker: no Prior pelvic floor PT: [...] Pulse 78 Temp 36. (more content not included)...NormalKettering [facility] Soin Medical CenterCNPNon 72-50-8576RQUS Telephone ([facility]) RJ COLBERT ([id number]) 2000 M Date Time Provider Department 07/26/25 CORNELIUS GREWAL JRJanusz During your visit today, we recorded the [...] Results [95] Prescriptions as of 07/26/2025 - pramoxine-hydrocortisone (PROCTOFOAM [...] Encounter Status:Closed by CORNELIUS GREWAL JR. on 07/26/25[facility]Bas[facility] Auto (Bld) [#/Vol]Ordered By: Outside Provider on 07-09-2025 Basophils (Bld) [#/Vol]0.0 10 3/uL0.0-0.1FFayette [facility] Hospital Basophils/100 WBC Auto (Bld)Ordered By: Outside Provider on 07-09-2025 Basophils/100 WBC (Bld)0.8 %0.2-2.0[facility] Eosinophils/100 WBC Auto (Bld)Ordered By: Outside Provider on 07-09-2025 Eosinophils/100 WBC (Bld)4.1 %0.9-7.0[facility] Erythrocyte distribution width Auto (RBC) [Ratio]Ordered By: Outside Provider on 57-45-3307Kthgnvsgjpd distribution width (RBC) [Ratio]17.1 %High11.0-15.[address] [facility] HospitalHematocrit Auto (Bld) [Volume fraction]Ordered By: Outside Provider on 18-74-6111Gpxirodinw (Bld) [Volume fraction]40.7 %Low 42.0-54.0[facility] HospitalHemoglobin [Mass/volume] in Blood Ordered By: Outside Provider on 20-10-4505Wstcpwjobo (Bld) [Mass/Vol]12.1 g/dL Low14.0-18.0[facility] HospitalLaboratory - Hematology and Cell countsOrdered By: Outside Provider on 81-75-7945Ldfjcldt granulocytes/100 WBC (Bld)0.2 %0.0-0.5FFayette County Memorial HospitalLeukocytes [#/volume] corrected for nucleated erythrocytes in Blood by Automated counOrdered By: Outside Provider on 41-67-3400EYJ corrected for nucl RBC Auto (Bld) [#/Vol]4.9 10 3/uL4.0-11.0[facility] HospitalLymphocytes Auto (Bld) [#/Vol] Ordered By: Outside Provider on 89-65-1234Wbktryzgokm (Bld) [#/Vol]1.7 10 3/uL 1.2-3.8[facility] HospitalLymphocytes/100 WBC Auto (Bld)Ordered By: Outside Provider on 60-84-1256Gvpawvkfqwn/100 WBC (Bld)34.1 %20.5-60.0 [facility] Auto (RBC) [Entitic mass]Ordered By: Outside Provider on 14-77-9635OMK (RBC) [Entitic mass]21.6 pgLow25.9-34.0 [facility] HospitalHC Auto (RBC) [Mass/Vol]Ordered By: Outside Provider on 61-99-8360GCVP (RBC) [Mass/Vol]29.7 g/dLLow29.9-35.2FFayette County Memorial HospitalMCV Auto (RBC) [Entitic vol]Ordered By: Outside Provider on 87-36-6813QHS (RBC) [Entitic vol]72.5 fLLow80.0-94.0[facility] HospitalMonocytes Auto (Bld) [#/Vol]Ordered By: Outside Provider on 98-24-1515Njcnaqgel (Bld) [#/Vol]0.6 10 3/uL0.3-0.8[facility] HospitalMonocytes/100 WBC Auto (Bld)Ordered By: Outside Provider on 07-09-2025 Monocytes/100 WBC (Bld)12.6 %High1.7-12.0[facility] Neutrophils Auto (Bld) [#/Vol]Ordered By: Outside Provider on 07-09-2025 Neutrophils (Bld) [#/Vol]2.4 10 3/uL1.4-6.5FFayette County Memorial Hospital Neutrophils/100 WBC Auto (Bld)Ordered By: Outside Provider on 07-09-2025 Neutrophils/100 WBC (Bld)48.2 %43.0-75.0[facility] HospitalNo Panel InformationOrdered By: Outside Provider on 14-33-8043Qspavbcjova # (Auto) 0.2 10 3/uL0.0-0.7FFayette County Memorial HospitalImmature Granulocyte # (Auto) 0.01 10 3/uL0.00-0.03[facility] HospitalPlatelet mean volume Auto (Bld) [Entitic vol]Ordered By: Outside Provider on 27-75-4066Avkyoejn mean volume (Bld) [Entitic vol]10.4 fL9.5-13.5FFayette County Memorial Hospital Platelets Auto (Bld) [#/Vol]Ordered By: Outside Provider on 39-28-6131Oymsammvw (Bld) [#/Vol]254 10 3/yY023-253TebbbiwvcMercy Health St. Elizabeth Boardman HospitalRBC Auto (Bld) [#/Vol]Ordered By: Outside Provider on 42-52-5515XVT (Bld) [#/Vol]5.61 10 6/uL 4.70-6.10[facility] HospitalALL CBC WITH AUTO DIFFon 06-09-2025 BASOPHILS ABSOLUTE BVSP3WOMWBarnes-Jewish Saint Peters HospitalBasophils/100 WBC (Bld)0.8 %0.2 - 2.0 % NOMS HealthcareEosinophils/100 WBC (Bld)2.9 %0.9 - 7.0 %[facility] Erythrocyte distribution width (RBC) [Ratio]16.8 %High11.0 - 15.0 %[facility] HospitalHematocrit (Bld) [Volume fraction]40.2 %Low42.0 - 54.0 %[facility] HospitalHemoglobin (Bld) [Mass/Vol]11.9 g/dLLow14.0 - 18.0 g/dLNOBarnes-[facility] IMMATURE GRANULOCYTES ABS AUTO0.01NOBarnes-Jewish Saint Peters HospitalImmature granulocytes/100 WBC (Bld)0.2 %0.0 - 0.5 %[facility] HealthcareInterpretation and review of laboratory resultsAbnormalNOBarnes-Jewish Saint Peters HospitalLYMPHOCYTES ABSOLUTE AUTO1.6NOMS [facility] Lymphocytes/100 WBC (Bld)31 %20.5 - 60.0 %[facility] HospitalH (RBC) [Entitic mass]21.5 pgLow25.9 - 34.[address] John'sHC (RBC) [Mass/Vol]29.6 g/dLLow 29.9 - 35.2 g/dLKindred HospitalV (RBC) [Entitic vol]72.7 fLLow80.0 - 94.0 fL [facility] HospitalMONOCYTES ABSOLUTE AUTO0.5NOMS HealthcareMonocytes/100 WBC (Bld) 9.9 %1.7 - 12.0 %NOMMissouri Baptist Medical CenterNEUTROPHILS ABSOLUTE AUTO2.9NOMS [facility] Neutrophils/100 WBC (Bld)55.2 %43.0 - 75.0 %[facility] HospitalPlatelet mean volume (Bld) [Entitic vol]10.3 fL9.5 - 13.5 fLNOColumbia Regional Hospital EO #0.2NOMS [facility] TB [id number] [facility] RBC5.53NOMS [facility] WBC5.2NRipley [facility] CLINISYNCWright Memorial HospitalALL CBC WITH AUTO DIFFon [id number] ABSOLUTE QGLX0VEXVBarnes-Jewish Saint Peters HospitalBasophils/100 WBC (Bld)0.6 %0.2 - 2.0 %[facility] Eosinophils/100 WBC (Bld)2.1 %0.9 - 7.0 %[facility] HospitalErythrocyte distribution width (RBC) [Ratio]17.9 %High11.0 - 15.0 %[facility] HospitalHematocrit (Bld) [Volume fraction]43.6 %42.0 - 54.0 %[facility] HospitalHemoglobin (Bld) [Mass/Vol] 12.5 g/dLLow14.0 - 18.0 g/dLWright Memorial HospitalIMMATURE GRANULOCYTES ABS AUTO0.01 [facility] HospitalImmature granulocytes/100 WBC (Bld)0.2 %0.0 - 0.5 %[facility] HospitalInterpretation and review of laboratory resultsAbnormalW[facility] Hospital LYMPHOCYTES ABSOLUTE AUTO1.4NOBarnes-Jewish Saint Peters HospitalLymphocytes/100 WBC (Bld)21.7 %20.5 - 60.0 %[facility]red HospitalH (RBC) [Entitic mass]21 pgLow25.9 - 34.0 pgNOFre[facility] (RBC) [Mass/Vol]28.7 g/dLLow29.9 - 35.2 g/dLKindred HospitalV (RBC) [Entitic vol]73.3 fLLow80.0 - 94.0 fLNOBarnes-Jewish Saint Peters HospitalMONOCYTES ABSOLUTE AUTO0.7NOWA HealthcareMonocytes/100 WBC (Bld)10.7 %1.7 - 12.0 %[facility] NEUTROPHILS ABSOLUTE AUTO4.2NOMS HealthcareNeutrophils/100 WBC (Bld)64.7 %43.0 - 75.0 %[facility] HospitalPlatelet mean volume (Bld) [Entitic vol]10.4 fL9.5 - 13.5 fLWright Memorial HospitalTB EO #0.1NOMS [facility] HospitalTB [id number] [facility] RBC5.95 NOMMissouri Baptist Medical CenterTB WBC6.5NOBarnes-Jewish Saint Peters HospitalCLINISYNCNRipley County Memorial HospitalALL CBC WITH AUTO DIFFon [id number] ABSOLUTE AUTO0.1NOMS [facility] HospitalBasophils/100 WBC (Bld)1 %0.2 - 2.0 %[facility] HospitalEosinophils/100 WBC (Bld)5.4 %0.9 - 7.0 %[facility] HospitalErythrocyte distribution width (RBC) [Ratio]19.3 %High11.0 - 15.0 % [facility] HospitalHematocrit (Bld) [Volume fraction]39.2 %Low42.0 - 54.0 %[facility] HospitalHemoglobin (Bld) [Mass/Vol]11.6 g/dLLow14.0 - 18.0 g/dLWright Memorial Hospital IMMATURE GRANULOCYTES ABS AUTO0.02NOBarnes-Jewish Saint Peters HospitalImmature granulocytes/100 WBC (Bld)0.3 %0.0 - 0.5 %[facility] HospitalInterpretation and review of laboratory resultsAbnormalWright Memorial HospitalLYMPHOCYTES ABSOLUTE AUTO1.6NOBarn[facility] Lymphocytes/100 WBC (Bld)26.2 %20.5 - 60.0 %[facility] HospitalH (RBC) [Entitic mass]21.2 pgLow25.9 - 34.0 pgKindred HospitalHC (RBC) [Mass/Vol]29.6 g/dLLow 29.9 - 35.2 g/dLKindred HospitalV (RBC) [Entitic vol]71.7 fLLow80.0 - 94.0 fL [facility] HospitalMONOCYTES ABSOLUTE AUTO0.7NOBarnes-Jewish Saint Peters HospitalMonocytes/100 WBC (Bld) 11.8 %1.7 - 12.0 %NOMS HealthcareNEUTROPHILS ABSOLUTE AUTO3.5NOMS [facility] Neutrophils/100 WBC (Bld)55.3 %43.0 - 75.0 %[facility] HospitalPlatelet mean volume (Bld) [Entitic vol]10.7 fL9.5 - 13.5 fLWright Memorial HospitalTBH EO #0.3NOMS [facility] [id number] [facility] RBC5.47NOMS [facility] WBC6.3NOBarn[facility] CLINISYNCWright Memorial HospitalALL CBC WITH AUTO DIFFon [id number] ABSOLUTE [id number] [facility] HospitalBasophils/100 WBC (Bld)0.7 %0.2 - 2.0 %NOMMissouri Baptist Medical Center Eosinophils/100 WBC (Bld)3.3 %0.9 - 7.0 %[facility] HospitalErythrocyte distribution width (RBC) [Ratio]20.8 %High11.0 - 15.0 %[facility] HospitalHematocrit (Bld) [Volume fraction]43.3 %42.0 - 54.0 %[facility] HospitalHemoglobin (Bld) [Mass/Vol] 12.4 g/dLLow14.0 - 18.0 g/dLWright Memorial HospitalIMMATURE GRANULOCYTES ABS AUTO0.01 [facility] HospitalImmature granulocytes/100 WBC (Bld)0.2 %0.0 - 0.5 %[facility] HospitalInterpretation and review of laboratory resultsAbnormalW[facility] Hospital LYMPHOCYTES ABSOLUTE AUTO1.6NOBarnes-Jewish Saint Peters HospitalLymphocytes/100 WBC (Bld)28.8 %20.5 - 60.0 %[facility] HospitalH (RBC) [Entitic mass]20.2 pgLow25.9 - 34.[address] John'sHC (RBC) [Mass/Vol]28.6 g/dLLow29.9 - 35.2 g/dLKindred HospitalV (RBC) [Entitic vol]70.4 fLLow80.0 - 94.0 fLWright Memorial HospitalMONOCYTES ABSOLUTE AUTO0.5NOMS HealthcareMonocytes/100 WBC (Bld)8.9 %1.7 - 12.0 %[facility] NEUTROPHILS ABSOLUTE AUTO3.1NOMS HealthcareNeutrophils/100 WBC (Bld)58.1 %43.0 - 75.0 %[facility] HospitalPlatelet mean volume (Bld) [Entitic vol]9.7 fL9.5 - 13.5 fL [facility] HospitalTB EO #0.2NOMS HealthcareTBH [id number] [facility] HospitalTB RBC6.15 HighNOWA HealthcareComment on above:1+ HYPO 1+ OVAL TBH WBC5.4NOBarnes-Jewish Saint Peters HospitalCLINISYNCNHARMON MEMORIAL [facility] HealthcareALL CBC WITH AUTO DIFFon [id number] ABSOLUTE AUTO0.1NOMS HealthcareBasophils/100 WBC (Bld)0.7 % 0.2 - 2.0 %NOM HealthcareEosinophils/100 WBC (Bld)1.9 %0.9 - 7.0 %[facility] HospitalErythrocyte distribution width (RBC) [Ratio]21.2 %High11.0 - 15.0 % [facility] HospitalHematocrit (Bld) [Volume fraction]42.1 %42.0 - 54.0 %[facility] HospitalHemoglobin (Bld) [Mass/Vol]12 g/dLLow14.0 - 18.0 g/dLW[facility] Memorial Hospital IMMATURE GRANULOCYTES ABS AUTO0.01NOBarnes-Jewish Saint Peters HospitalImmature granulocytes/100 WBC (Bld)0.1 %0.0 - 0.5 %[facility] HospitalInterpretation and review of laboratory resultsAbnormalWright Memorial HospitalLYMPHOCYTES ABSOLUTE AUTO1.5NOMS [facility] Lymphocytes/100 WBC (Bld)21.4 %20.5 - 60.0 %[facility]red HospitalH (RBC) [Entitic mass]19.8 pgLow25.9 - 34.0 pgKindred HospitalHC (RBC) [Mass/Vol]28.5 g/dLLow 29.9 - 35.2 g/dLKindred HospitalV (RBC) [Entitic vol]69.4 fLLow80.0 - 94.0 fL [facility] HospitalMONOCYTES ABSOLUTE AUTO0.7NOMS [facility] HospitalMonocytes/100 WBC (Bld) 9.5 %1.7 - 12.0 %[facility] HospitalNEUTROPHILS ABSOLUTE AUTO4.6NOMS [facility] Neutrophils/100 WBC (Bld)66.4 %43.0 - 75.0 %[facility] EO #0.1NOMS HealthcareTBH [id number] [facility] RBC6.07NOWA HealthcareComment on above: HYPOCHROMASIA 1+ ANISOCYTOSIS 2+ OVALOCYTOSIS 1+ BE CELLS 1+ TBH WBC6.9NOBarnes-Jewish Saint Peters HospitalCLINISYNCNOMS HealthcareALL CBC WITH AUTO DIFFon [id number] ABSOLUTE BJNM2ECMB HealthcareBasophils/100 WBC (Bld)0.5 %0.2 - 2.0 %NOMS [facility] HospitalEosinophils/100 WBC (Bld)1.5 %0.9 - 7.0 %[facility] Erythrocyte distribution width (RBC) [Ratio]20.7 %High11.0 - 15.0 %[facility] HospitalHematocrit (Bld) [Volume fraction]40.5 %Low42.0 - 54.0 %[facility] HospitalHemoglobin (Bld) [Mass/Vol]11.3 g/dLLow14.0 - 18.0 g/dLW[facility] Memorial Hospital IMMATURE GRANULOCYTES ABS AUTO0.02NOBarnes-Jewish Saint Peters HospitalImmature granulocytes/100 WBC (Bld)0.3 %0.0 - 0.5 %[facility] HospitalInterpretation and review of laboratory resultsAbnormalWright Memorial HospitalLYMPHOCYTES ABSOLUTE [id number] [facility] Lymphocytes/100 WBC (Bld)26.4 %20.5 - 60.0 %[facility] HospitalH (RBC) [Entitic mass]18.8 pgLow25.9 - 34.[address] John'sHC (RBC) [Mass/Vol]27.9 g/dLLow 29.9 - 35.2 g/dLKindred HospitalV (RBC) [Entitic vol]67.5 fLLow80.0 - 94.0 fL [facility] HospitalMONOCYTES ABSOLUTE AUTO0.8NOBarnes-Jewish Saint Peters HospitalMonocytes/100 WBC (Bld) 10.6 %1.7 - 12.0 %[facility] HospitalNEUTROPHILS ABSOLUTE AUTO4.5NOBarn[facility] Neutrophils/100 WBC (Bld)60.7 %43.0 - 75.0 %[facility] HospitalPlatelet mean volume (Bld) [Entitic vol]9.9 fL9.5 - 13.5 fLWright Memorial HospitalTB EO #0.1NOMS Healthcare TB [id number] [facility] HospitalTB [id number] [facility] HospitalTB WBC7.4NOBarn[facility] CLINISYNCWright Memorial HospitalALL CBC WITH AUTO DIFFon [id number] ABSOLUTE VOZO9XGWK HealthcareBasophils/100 WBC (Bld)0.7 %0.2 - 2.0 %NOM Healthcare Eosinophils/100 WBC (Bld)0.5 %Low0.9 - 7.0 %[facility] HealthcareErythrocyte distribution width (RBC) [Ratio]20.8 %High11.0 - 15.0 %NOM HealthcareHematocrit (Bld) [Volume fraction]40.4 %Low42.0 - 54.0 %NOM HealthcareHemoglobin (Bld) [Mass/Vol]11.3 g/dLLow14.0 - 18.0 g/dLNOWA HealthcareIMMATURE GRANULOCYTES ABS AUTO0.02NOMS HealthcareImmature granulocytes/100 WBC (Bld)0.3 %0.0 - 0.5 %[facility] HealthcareInterpretation and review of laboratory resultsAbnormalWright Memorial Hospital LYMPHOCYTES ABSOLUTE AUTO1.6NOMS [facility] HospitalLymphocytes/100 WBC (Bld)26.3 %20.5 - 60.0 %[facility] HospitalH (RBC) [Entitic mass]18.8 pgLow25.9 - 34.0 pgNOBarnes-Jewish Saint Peters HospitalMCHC (RBC) [Mass/Vol]28 g/dLLow29.9 - 35.2 g/dLWright Memorial HospitalMCV (RBC) [Entitic vol]67.1 fLLow80.0 - 94.0 fLWright Memorial HospitalMONOCYTES ABSOLUTE LGVQ7CqmnKBIM HealthcareMonocytes/100 WBC (Bld)16 %High1.7 - 12.0 %NOM HealthcareNEUTROPHILS ABSOLUTE AUTO3.5NOMS HealthcareNeutrophils/100 WBC (Bld) 56.2 %43.0 - 75.0 %NOM HealthcarePlatelet mean volume (Bld) [Entitic vol]10.3 fL9.5 - 13.5 fLNOBarnes-Jewish Saint Peters HospitalTBH EO #0NOMS [facility] HospitalTB [id number] [facility] RBC6.02NOMS HealthcareComment on above:2+ OVALOCYTESTBH WBC6.1NOMS HealthcareCLINISYNCNOMS HealthcareALL CBC WITH AUTO DIFFon [id number] distribution width (RBC) [Ratio]21.2 %High11.0 - 15.0 %NOM HealthcareHematocrit (Bld) [Volume fraction]40.1 %Low42.0 - 54.0 %[facility] HospitalHemoglobin (Bld) [Mass/Vol]11.1 g/dLLow14.0 - 18.0 g/dLWright Memorial HospitalInterpretation and review of laboratory resultsAbnormalKindred HospitalH (RBC) [Entitic mass]18.6 pgLow 25.9 - 34.0 pgKindred HospitalHC (RBC) [Mass/Vol]27.7 g/dLLow29.9 - 35.2 g/dL [facility]red HospitalV (RBC) [Entitic vol]67.1 fLLow80.0 - 94.0 fLWright Memorial Hospital Platelet mean volume (Bld) [Entitic vol]9.5 fL9.5 - 13.5 fLCox [place]ett RHG690EBOTColumbia Regional Hospital RBC5.98NOColumbia Regional Hospital WBC6.3[facility] CLINISYNCWright Memorial HospitalALL CBC WITH AUTO DIFFon [id number] ABSOLUTE MNLJ0ZPTMWright Memorial HospitalBasophils/100 WBC (Bld)0.8 %0.2 - 2.0 %[facility] Eosinophils/100 WBC (Bld)1 %0.9 - 7.0 %[facility] HospitalErythrocyte distribution width (RBC) [Ratio]21.2 %High11.0 - 15.0 %[facility] HospitalHematocrit (Bld) [Volume fraction]38.6 %Low42.0 - 54.0 %[facility] HospitalHemoglobin (Bld) [Mass/Vol]10.5 g/dLLow14.0 - 18.0 g/dLWright Memorial HospitalIMMATURE GRANULOCYTES ABS AUTO0.01NOBarnes-Jewish Saint Peters HospitalImmature granulocytes/100 WBC (Bld)0.2 %0.0 - 0.5 %[facility] HospitalInterpretation and review of laboratory resultsAbMcLaren Lapeer Region LYMPHOCYTES ABSOLUTE AUTO1.3[facility] HospitalLymphocytes/100 WBC (Bld)25.9 %20.5 - 60.0 %[facility] (RBC) [Entitic mass]18.1 pgLow25.9 - 34.0 pgF[facility] (RBC) [Mass/Vol]27.2 g/dLLow29.9 - 35.2 g/dLKindred HospitalV (RBC) [Entitic vol]66.4 fLLow80.0 - 94.0 fLWright Memorial HospitalMONOCYTES ABSOLUTE AUTO0.7NOMS HealthcareMonocytes/100 WBC (Bld)13.7 %High1.7 - 12.0 %[facility] HospitalNEUTROPHILS ABSOLUTE AUTO2.9NOMS HealthcareNeutrophils/100 WBC (Bld) 58.4 %43.0 - 75.0 %[facility] HospitalTBH EO #0.1NOMS [facility] HospitalTB [id number] [facility] HospitalTB RBC5.81NOMS HealthcareComment on above:HYPOCHROMASIA 2+ OVALOCYTOSIS 2+ ANISOCYTOSIS 2+ TBH WBC4.9NOBarnes-Jewish Saint Peters HospitalCLINISYNCNHARMON MEMORIAL [facility] HealthcareALL CBC WITH AUTO DIFFon [id number] ABSOLUTE WCHO4GKDP [facility] HospitalBasophils/100 WBC (Bld)0.3 %0.2 - 2.0 %NOMMissouri Baptist Medical CenterEosinophils/100 WBC (Bld)0.6 %Low0.9 - 7.0 %[facility] HospitalErythrocyte distribution width (RBC) [Ratio]21.9 %High11.0 - 15.0 % [facility] HospitalHematocrit (Bld) [Volume fraction]39.7 %Low42.0 - 54.0 %[facility] HospitalHemoglobin (Bld) [Mass/Vol]10.7 g/dLLow14.0 - 18.0 g/dLW[facility] Hospital IMMATURE GRANULOCYTES ABS AUTO0.01NOBarnes-Jewish Saint Peters HospitalImmature granulocytes/100 WBC (Bld)0.1 %0.0 - 0.5 %[facility] HospitalInterpretation and review of laboratory resultsAbnormalWright Memorial HospitalLYMPHOCYTES ABSOLUTE AUTO1.8NOMS [facility] Lymphocytes/100 WBC (Bld)27.6 %20.5 - 60.0 %[facility]red HospitalH (RBC) [Entitic mass]17.5 pgLow25.9 - 34.[address] John'sHC (RBC) [Mass/Vol]27 g/dLLow29.9 - 35.2 g/dLKindred HospitalV (RBC) [Entitic vol]64.8 fLLow80.0 - 94.0 fLWright Memorial HospitalMONOCYTES ABSOLUTE AUTO0.9HighNOMS HealthcareMonocytes/100 WBC (Bld) 13.8 %High1.7 - 12.0 %[facility] HospitalNEUTROPHILS ABSOLUTE AUTO3.8NOMS [facility] Neutrophils/100 WBC (Bld)57.6 %43.0 - 75.0 %[facility] HospitalPlatelet mean volume (Bld) [Entitic vol]9.6 fL9.5 - 13.5 fLWright Memorial HospitalTBH EO #0NOMS [facility] HospitalTBH [id number] [facility] RBC6.13HighWright Memorial HospitalComment on above: HYPOCHROMASIA 1+ MICROCYTOSIS 2+ ANISOCYTOSIS 2+ OVALOCYTES 1+ TBH WBC6.7NOBarnes-Jewish Saint Peters HospitalCLINISYNCNOMS HealthcareALL CBC WITH AUTO DIFFon [id number] ABSOLUTE AUTO0.0NOMS [facility] HospitalBasophils/100 WBC (Bld)0.4 % 0.2 - 2.0 %[facility] HospitalEosinophils/100 WBC (Bld)0.4 %Low0.9 - 7.0 %[facility] HospitalErythrocyte distribution width (RBC) [Ratio]22.1 %High11.0 - 15.0 % [facility] HospitalHematocrit (Bld) [Volume fraction]38.7 %Low42.0 - 54.0 %[facility] HospitalHemoglobin (Bld) [Mass/Vol]10.5 g/dLLow14.0 - 18.0 g/dLW[facility] Hospital IMMATURE GRANULOCYTES ABS AUTO0.01NOBarnes-Jewish Saint Peters HospitalImmature granulocytes/100 WBC (Bld)0.2 %0.0 - 0.5 %[facility] HospitalInterpretation and review of laboratory resultsAbnormalWright Memorial HospitalLYMPHOCYTES ABSOLUTE AUTO1.8NOMS [facility] Lymphocytes/100 WBC (Bld)31.6 %20.5 - 60.0 %[facility]red HospitalH (RBC) [Entitic mass]17.5 pgLow25.9 - 34.[address] John'sHC (RBC) [Mass/Vol]27.1 g/dLLow 29.9 - 35.2 g/dLKindred HospitalV (RBC) [Entitic vol]64.4 fLLow80.0 - 94.0 fL [facility] HospitalMONOCYTES ABSOLUTE AUTO0.7NOBarnes-Jewish Saint Peters HospitalMonocytes/100 WBC (Bld) 11.5 %1.7 - 12.0 %NOMS HealthcareNEUTROPHILS ABSOLUTE AUTO3.2NOMS Healthcare Neutrophils/100 WBC (Bld)55.9 %43.0 - 75.0 %NOMS HealthcarePlatelet mean volume (Bld) [Entitic vol]9.2 fLLow9.5 - 13.5 fLNOMS HealthcareTBH EO #0.0NOMS HealthcareTBH [id number] HealthcareTBH RBC6.01NOMS HealthcareTBH WBC5.7NOMS HealthcareCLINISYNCNOMS HealthcareBASIC METABOLIC PANLon 87-64-7193Zgdgl gap [Moles/Vol]8 mmol/LNormal5-15Pro[facility]ell HospitalComment on above:Performed By: #### ANDRES FLORES, #### [facility] ([id number]) [address], [address] [place], [place] [address]Gwosfjk [Mass/Vol]8.5 mg/dLNormal8.5-10.5ProMedAdena Health System HospitalComment on above:Performed By: #### ANDRES FLORES, #### [facility] ([id number]) [address], [address] [place], [place] [address]Etndeuvf [Moles/Vol]106 mmol/CSrqqzh73-133AgcAdosgv [place] HospitalComment on above:Performed By: #### ANDRES FLORES, #### [facility] ([id number]) [address], [address] [place], [place] [address]LZ4 [Moles/Vol]28 mmol/OOdofxy71-37SsnQuelgz [facility] Comment on above:Performed By: #### ANDRES FLORES, #### [facility] ([id number]) [address], [address] [place], [place] [address]Aftikmcqmx [Mass/Vol]0.93 mg/dLNormal0.60-1.30ProAccess Hospital Daytonca [facility] HospitalComment on above:Result Comment: METHOD TRACEABLE TO IDMS STANDARD Performed By: #### ANDRES FLORES, #### [facility] ([id number]) [address] [address] [place], [place] [address]xFWO (CKD-EPI) NON-RACE DEPENDENT>90Normal>59Pro[facility] Daytonca [facility] HospitalComment on above:Result Comment: Reported eGFR is based on the CKD-EPI 2020 equation that does not use a race coefficient.Performed By: #### ANDRES FLORES, #### [facility] ([id number]) [address], [address] [place], [place] [address]Pwydhoz [Mass/Vol]87 mg/hDXarqcb22-72FhiMezlvw [facility] Comment on above:Performed By: #### ANDRES FLORES, #### [facility] ([id number]) [address], [facility] [address] [place], [place] [address]Fzklmtgir [Moles/Vol]3.9 mmol/LNormal3.5-5.0Pro[facility] Daytonca [facility] HospitalComment on above:Performed By: #### ANDRES FLORES, #### [facility] ([id number]) [address] [address] [place], [place] [address]Feowko [Moles/Vol]142 mmol/IAeynhy295-017GxtNueane Hornell HospitalComment on above:Performed By: #### ANDRES FLORES, #### [facility] ([id number]) [address] [place], [place] [address]Xtko nitrogen [Mass/Vol]13 mg/dLNormal5-23Pro[facility] HospitalComment on above:Performed By: #### ANDRES FLORES, #### [facility] ([id number]) [address], [address] [place], [place] [address]GQT AND AUTO DIFFon 32-93-8437RGBOAETT BASOPHIL0.0 X10E9/LNormal 0.0-0.2[facility] HospitalComment on above:Performed By: #### ANDRES FLORES, #### [facility] ([id number]) [address], [address] [place], [place] [address]DILWYIJP NEUTROPHIL7.9 X10E9/LHigh1.5-6.6Pro[facility]ica [facility] HospitalComment on above:Performed By: #### ANDRES FLORES, #### [facility] ([id number]) [address], [address] [place], [place] [address]Buanjrlmb/100 WBC (Bld)0.2 %NormalHolzer Medical Center – [facility] Comment on above:Performed By: #### ANDRES FLORES, #### [facility] ([id number]) [address], [address] [place], [place] [address]Jvorswsqgpv (Bld) [#/Vol]0.0 10*3/uLNormal0.0-0.4Pro[facility] Hospital HospitalComment on above:Performed By: #### ANDRES FLORES, #### [facility] ([id number]) [address], [address] [place], [place] [address]Aucxybquwyd/100 WBC (Bld)0.2 %NormalHolzer Medical Center – [place] Comment on above:Performed By: #### ANDRES FLORES, #### [facility] ([id number]) [address], [address] [place], [place] [address]Bdhouziatuo distribution width (RBC) [Ratio]20.7 %High11.5-15.0 [facility] HospitalComment on above:Performed By: #### ANDRES FLORES, #### [facility] ([id number]) [address], [address] [place], [place] [address]CVDRQQOO1+AbnormalNONEProMedica Hornell HospitalComment on above: Performed By: #### ANDRES FLORES, #### [facility] ([id number]) [address], [address] [place], [place] [address]Nsovrgyiqw (Bld) [Volume fraction]30.0 %Avt48-91YjxCgeatn [place] HospitalComment on above:Performed By: #### ANDRES FLORES, #### [facility] ([id number]) [address], [address] [place], [place] [address]Bdftiddjkg (Bld) [Mass/Vol]8.7 g/dLLow13.0-17.0ProAccess Hospital Daytonca [facility] HospitalComment on above:Performed By: #### ANDRES FLORES, #### [facility] ([id number]) [address], [address] [place], [place] [address]SSXARKSCHSX1+AbnormalNONEProMedica Hornell HospitalComment on above:Performed By: #### ANDRES FLORES, #### [facility] ([id number]) [address], [address] [place], [place] [address]Jqwiwbsgyum (Bld) [#/Vol]2.6 10*3/uLNormal1.0-3.5ProMedica [facility] HospitalComment on above:Performed By: #### ANDRES FLORES, #### [facility] ([id number]) [address], [address] [place], [place] [address]Libmbehwnxz/100 WBC (Bld)22.1 %NormalProPremier Health Miami [facility] Hospital [facility] Comment on above:Performed By: #### ANDRES FLORES, #### [facility] ([id number]) [address], [address] [place], [place] [address]VAX (RBC) [Entitic mass]16.7 edNno46-74WgkSlrnotPremier Health [facility] Comment on above:Performed By: #### CBCA, BMP, #### [facility] ([id number]) [address], [address] [place], [place] [address]UHFC (RBC) [Mass/Vol]29.1 g/uJVuv30-45YjxFhscyxHolzer Medical Center – [place] Comment on above:Performed By: #### CBCA, BMP, #### [facility] ([id number]) [address], [address] [place], [place] [address]TZV (RBC) [Entitic vol]58 iJEsn31-481CwaIaqslnHolzer Medical Center – [place] Comment on above:Performed By: #### CBCA, BMP, #### [facility] ([id number]) [address], [address] [place], [place] [address]Awtcxfups (Bld) [#/Vol]1.3 10*3/uLHigh0-0.9[facility] – JacksonComment on above:Performed By: #### CBCA, BMP, #### [facility] ([id number]) [address] [place], [place] [address]Crnbzhsew/100 WBC (Bld)11.2 %NormalHolzer Medical Center – [place] Comment on above:Performed By: #### CBCA, BMP, #### [facility] ([id number]) [address] [place], [place] [address]Jnvaficxjbg/100 WBC (Bld)66.3 %NormalHolzer Medical Center – [place] Comment on above:Performed By: #### CBCA, BMP, #### [facility] ([id number]) [address], [address] [place], [place] [address]MOFSIHRTL3+AbnormalNONEProMedica Premier Health Miami Valley HospitalComment on above:Performed By: #### CBCA, BMP, #### [facility] ([id number]) [address], [address] [place], [place] [address]Usiikmmi mean volume (Bld) [Entitic vol]8.7 fLNormal7-12 ProMeliza coffee memorial hospitala [place] HospitalComment on above:Performed By: #### ANDRES FLORES, #### [facility] ([id number]) [address], [address] [place], [place] [address]Jdferjudw (Bld) [#/Vol]326 10*3/zRBphajp514-500NrmIvemds Johnson HospitalComment on above:Performed By: #### ANDRES FLORES, #### [facility] ([id number]) [address] [place], [place] [address]XIS COUNT5.21 X10E12/LNormal4.10-5.70[facility] Comment on above:Performed By: #### ANDRES FLORES, #### [facility] ([id number]) [address], [address] [place], [place] [address]FLX (Bld) [#/Vol]11.9 10*3/uLHigh4.0-11.0ProMedica [facility] HospitalComment on above:Performed By: #### ANDRES FLORES, #### [facility] ([id number]) [address] [place], [place] [address]EPSVMRDCBsq [id number] [Mass/Vol]2.0 mg/dLNormal1.8-2.6 ProMSelect Medical Specialty Hospital - Canton HospitalComment on above:Performed By: #### ANDRES FLORES, #### [facility] ([id number]) [address], [address] [place], [place] [address]RMYZF METABOLIC PANLon 61-25-5426Jxngg gap [Moles/Vol]9 mmol/L Normal5-15ProMedica Johnson HospitalComment on above:Performed By: #### ANDRES FLORES, #### [facility] ([id number]) [address], [address] [place], [place] [address]Eppdqlu [Mass/Vol]8.8 mg/dLNormal8.5-10.5POhio State Health SystemComment on above:Performed By: #### ANDRES FLORES, [id number] #### [facility] ([id number]) [address] [place], [place] [address]Bbjjgioj [Moles/Vol]107 mmol/RCpddlb85-321PjmRbggbg Toledo HospitalComment on above:Performed By: #### ANDRES FLORES, #### [facility] ([id number]) [address], [address] [place], [place] [address]TF4 [Moles/Vol]25 mmol/YAyovht81-16AdaGykfzhOhio State Health System Comment on above:Performed By: #### ANDRES FLORES, #### [facility] ([id number]) [address], [address] [place], [place] [address]Ivawdxkhav [Mass/Vol]0.96 mg/dLNormal0.60-1.30ProPremier Health Miami Valley Hospital NorthComment on above:Result Comment: METHOD TRACEABLE TO IDMS STANDARD Performed By: #### ANDRES FLORES, 76725-5 #### [facility] ([id number]) [address], [address] [place], [place] [address]uNHG (CKD-EPI) NON-RACE DEPENDENT>90Normal>59ProPremier Health Miami Valley Hospital NorthComment on above:Result Comment: Reported eGFR is based on the CKD-EPI 2020 equation that does not use a race coefficient.Performed By: #### ANDRES FLORES, #### [facility] ([id number]) [address], [address] [place], [place] [address]Npgyhqu [Mass/Vol]117 mg/lBTyjd68-60UkbLumjyaPremier Health Miami Valley Hospital North Comment on above:Performed By: #### ANDRES FLORES, #### [facility] ([id number]) [address], [address] [place], [place] [address]Cywgazeiu [Moles/Vol]4.5 mmol/LNormal3.5-5.0ProMedica Johnson HospitalComment on above:Performed By: #### ANDRES FLORES, #### [facility] ([id number]) [address], [address] [place], [place] [address]Bzntzg [Moles/Vol]141 mmol/OWyirdf530-376LzfVnhohq Johnson HospitalComment on above:Performed By: #### ANDRES FLORES, #### [facility] ([id number]) [address], [address] [place], [place] [address]Kgwi nitrogen [Mass/Vol]19 mg/dLNormal5-23ProMedica Johnson HospitalComment on above:Performed By: #### ANDRES FLORES, #### [facility] ([id number]) [address], [address] [place], [place] [address]KMV AND AUTO DIFFon 39-56-8752GKINNOOHQYY7+AbnormalNONEProMedica Johnson HospitalComment on above:Performed By: #### ANDRES FLORES, #### [facility] ([id number]) [address], [address] [place], [place] [address]Rnfnstuwsie distribution width (RBC) [Ratio]21.0 %High11.5-15.0 ProMedica Johnson HospitalComment on above:Performed By: #### ANDRES FLORES, #### [facility] ([id number]) [address], [address] [place], [place] [address]RIMRPEGB3+AbnormalNONEProMedica Johnson HospitalComment on above: Performed By: #### ANDRES FLORES, #### [facility] ([id number]) [address], [address] [place], [place] [address]Cakmoshowr (Bld) [Volume fraction]32.9 %Ngb48-98MaqHvxykkPremier Health Miami Valley Hospital NorthComment on above:Performed By: #### CBCBri BMP, #### [facility] ([id number]) [address], [address] [place], [place] [address]Kqvzaagujo (Bld) [Mass/Vol]9.4 g/dLLow13.0-17.0ProPremier Health Miami Valley Hospital NorthComment on above:Performed By: #### CBCBri BMP, #### [facility] ([id number]) [address], [address] [place], [place] [address]BSHATQNXMAG9+AbnormalNONEPSelect Medical [facility] HospitalComment on above:Performed By: #### CBCBri BMP, #### [facility] ([id number]) [address], [address] [place], [place] [address]Xokioyuvrlq (Bld) [#/Vol]0.6 10*3/uLLow1.0-3.5PAssumption General Medical Centerica [facility] Valley HospitalComment on above:Performed By: #### CBCBri, BMP, #### [facility] ([id number]) [address], [address] [place], [place] [address]Axclbzyllcp/100 WBC (Bld)4.0 %NormalHolzer Medical Center – Jackson Comment on above:Performed By: #### CBCBri, BMP, #### [facility] ([id number]) [address], [address] [place], [place] [address]CHU (RBC) [Entitic mass]16.4 zwZpi78-62ShcBvwhloHolzer Medical Center – Jackson Comment on above:Performed By: #### CBCA, BMP, #### [facility] ([id number]) [address], [address] [place], [place] [address]VWTD (RBC) [Mass/Vol]28.6 g/wNCgy47-39BoaJlcawrHolzer Medical Center – Jackson Comment on above:Performed By: #### ANDRES FLORES, #### [facility] ([id number]) [address], [address] [place], [place] [address]TVZ (RBC) [Entitic vol]57 gWJgr75-148RgiKabcuoHolzer Medical Center – Jackson Comment on above:Performed By: #### ANDRES FLORES, #### [facility] ([id number]) [address], [address] [place], [place] [address]Opqelhxdt (Bld) [#/Vol]0.5 10*3/uLNormal0-0.9ProPremier Health Miami Valley Hospital NorthComment on above:Performed By: #### ANDRES FLORES, #### [facility] ([id number]) [address], [address] [place], [place] [address]Pkpuwwtac/100 WBC (Bld)3.0 %NormalHolzer Medical Center – [place] Comment on above:Performed By: #### ANDRES FLORES, #### [facility] ([id number]) [address], [address] [place], [place] [address]Vcxuqtaxjym (Bld) [#/Vol]14.5 10*3/uLHigh1.5-6.6ProPremier Health Miami Valley Hospital NorthComment on above:Performed By: #### ANDRES FLORES, #### [facility] ([id number]) [address], [address] [place], [place] [address]RASAHDHHY7+AbnormalNONEProMedica [facility] Miami Valley HospitalComment on above:Performed By: #### ANDRES FLORES, #### [facility] ([id number]) [address], [address] [place], [place] [address]Imaceqvv mean volume (Bld) [Entitic vol]8.7 fLNormal7-12 ProMedica Johnson HospitalComment on above:Performed By: #### MARK BMP, #### [facility] ([id number]) [address], [address] [place], [place] [address]Unjaotsfg (Bld) [#/Vol]347 10*3/cUJjifwh137-643GjaFpeqqf Johnson HospitalComment on above:Performed By: #### CBCBri BMP, #### [facility] ([id number]) [address], [address] [place], [place] [address]KNDFLYZUOQOTV4+AbnormalNONEProMedica Johnson HospitalComment on above:Performed By: #### CBCBri BMP, #### [facility] ([id number]) [address], [address] [place], [place] [address]KMW COUNT5.76 X10E12/LHigh4.10-5.70[facility] Comment on above:Performed By: #### ANDRES FLORES, #### [facility] ([id number]) [address], [address] [place], [place] [address]EJG ENEJQSCVZX48.0 %NormalProMedica Johnson HospitalComment on above:Performed By: #### CBCBri, BMP, #### [facility] ([id number]) [address], [address] [place], [place] [address]QNRGXRYA2+AbnormalNONEProMedica Johnson HospitalComment on above: Performed By: #### CBCBri, BMP, #### [facility] ([id number]) [address], [address] [place], [place] [address]XXZ (Bld) [#/Vol]15.6 10*3/uLHigh4.0-11.0ProMedica Johnson HospitalComment on above:Performed By: #### CBCA, BMP, #### [facility] ([id number]) [address] [place] [address], [address] [place], [place] [address]EVCUVAQBVfo 92-64-0872Njedcewtp [Mass/Vol]2.0 mg/dLNormal1.8-2.6 [facility] Hospitala [facility] HospitalComment on above:Performed By: #### CBCA, [facility], [address]-3 #### [facility] ([id number]) [address] [place] [address], [address] [place], [place] [address]Dsyxxogw Pathologyon [id number] PathologyNormalProMedica [facility] Miami Valley HospitalComment on above:Result Comment: [facility] [address] [place] [address] Surgical Pathology Consultation Patient Name:SASCHA COLBERTMDOB:2000 (Age: 23)Gender:MTaken:01/09/2024eported:01/13/2024hysician(s):Pushpa Silva MD ([phone])Copy To: Rec. #:[id number]: #[id number] Final Pathologic Diagnosis Rectosigmoidectomy: Mucosal ischemic change with superficial mucosal necrosis, acute inflammation, hyalinization of lamina propria and atrophic crypts. Strands of smooth muscle extending into lamina propria with surface erosion compatible with prolapse changes. No malignancy identified. Report Electronically Signed Out ssi/01/13/2024Calvin Cortez M.D. Interpretation performed at [facility], [address] [place] [address], License number: [id number]. Clinical History Rectal prolapse, ischemic rectum. Gross Description Received in formalin labeled FILEMON, rectum, sigmoid is an unoriented prolapsed segment of colon,received opened at both ends. The specimen is received inverted with red-brown dull and dusky mucosa on the outer aspect. The specimen is then flipped upright to reveal pale pink serosa. The specimenis 22 cm in length ranging from 3 [...] sections of proximal margin G edematous wall (7,ss,[id number], m1) /01/09/2024 Specimen(s) Received Rectum and sigmoid Fee Codes(s): 1; [id number] AUTO DIFFon [id number] #0.0 103/ulNormal0.0-0.1The [facility] HospitalComment on above:Performed By: #### CBC #### [facility] [address] [place] [address] Dr. Sonido BejaranoBasophils/100 WBC (Bld)0.7 %Normal0.2-2.0[facility] Comment on above:Performed By: #### CBC #### [facility] [address] [place] [address] Dr. Sonido Carver #0.1 103/ulNormal0.0-0.7The [facility] HospitalComment on above: Performed By: #### CBC #### [facility] [address] [place] [address] Dr. Sonido Urbanosinophils/100 WBC (Bld)1.0 %Normal0.9-7.0The [facility] Comment on above:Performed By: #### CBC #### [facility] [address] [place] [address] Dr. Sonido Urbanrythrocyte distribution width (RBC) [Ratio]22.3 %Critically high 11.0-15.0The [facility] HospitalComment on above:Performed By: #### CBC #### [facility] [address] [place] [address] Dr. Sonido BejaranoHematocrit (Bld) [Volume fraction]32.0 %Critically low42.0-54.0 The [facility] HospitalComment on above:Performed By: #### CBC #### [facility] [address] [place] [address] Dr. Sonido BejaranoHemoglobin (Bld) [Mass/Vol]8.3 g/dLCritically low14.0-18.0The [facility] HospitalComment on above:Performed By: #### CBC #### [facility] [address] [place] [address] Dr. Sonido Lucero #0.01 10e3/ulNormal0.00-0.03The [facility] HospitalComment on above:Performed By: #### CBC #### [facility] [address] [place] [address] Dr. Sonido Lucero %0.2 %Normal0.0-0.5The [facility] HospitalComment on above: Performed By: #### CBC #### [facility] [address] [place] [address] Dr. Sonido Smart #1.2 103/ulNormal1.2-3.8The [facility] HospitalComment on above:Performed By: #### CBC #### [facility] [address] [place] [address] Dr. Sonido Patmphocytes/100 WBC (Bld)20.1 %Critically low20.5-60.0The [facility] HospitalComment on above:Performed By: #### CBC #### [facility] [address] [place] [address] Dr. Sonido AguilarUAL DIFF REQNONormalThe [facility] HospitalComment on above: Performed By: #### CBC #### [facility] [address] [place] [address] Dr. Sonido Reyes (RBC) [Entitic mass]15.7 pgCritically low25.9-34.0The [facility] HospitalComment on above:Performed By: #### CBC #### [facility] [address] [address] [address] Sonido CorralHC (RBC) [Mass/Vol]25.9 g/dLCritically low29.9-35.2The [facility] HospitalComment on above:Performed By: #### CBC #### [facility] [address] [place] [address] Dr. Sonido CorralV (RBC) [Entitic vol]60.6 fLCritically low80.0-94.0The [facility] HospitalComment on above:Performed By: #### CBC #### [facility] [address] [place] [address] Dr. Sonido Drew #0.7 103/ulNormal0.3-0.8The [facility] HospitalComment on above:Performed By: #### CBC #### [facility] [address] [place] [address] Dr. Sonido Seoocytes/100 WBC (Bld)12.2 %Critically high1.7-12.0The [facility] HospitalComment on above:Performed By: #### CBC #### [facility] [address] [place] [address] Dr. Sonido Turk #3.8 103/ulNormal1.4-6.5The [facility] HospitalComment on above:Performed By: #### CBC #### [facility] [address] [place] [address] Dr. Sonido Aguilarutrophils/100 WBC (Bld)65.8 %Mdvihv01.0-75.0The [facility] HospitalComment on above:Performed By: #### CBC #### [facility] [address] [place] [address] Dr. Sonido Mayalet mean volume (Bld) [Entitic vol]9.2 fLCritically low 9.5-13.5The [facility] HospitalComment on above:Performed By: #### CBC #### [facility] [address] [place] [address] Dr. Sonido BejaranoPLT369 103/oxAodrad355-577Evm [facility] HospitalComment on above: Performed By: #### CBC #### [facility] [address] [place] [address] Dr. Sonido BejaranoRBC5.28 106/ulNormal4.70-6.10The [facility] HospitalComment on above:Performed By: #### CBC #### [facility] [address] [place] [address] Dr. Sonido BejaranoWBC5.8 103/ulNormal4.0-11.0The [facility] HospitalComment on above: Performed By: #### CBC #### [facility] [address] [place] [address] Dr. Sonido Michaels AUTO DIFFon [id number] #0.0 103/ulNormal0.0-0.1The [facility] HospitalComment on above:Performed By: #### CBC #### [facility] [address] [place] [address] Dr. Sonido BejaranoBasophils/100 WBC (Bld)0.7 %Normal0.2-2.0[facility] Comment on above:Performed By: #### CBC #### [facility] [address] [place] [address] Dr. Sonido Carver #0.1 103/ulNormal0.0-0.7The [facility] HospitalComment on above: Performed By: #### CBC #### [facility] [address] [place] [address] Dr. Sonido Urbanosinophils/100 WBC (Bld)1.1 %Normal0.9-7.0The [facility] Comment on above:Performed By: #### CBC #### [facility] [address] [place] [address] Dr. Sonido Urbanrythrocyte distribution width (RBC) [Ratio]22.7 %Critically high 11.0-15.0The [facility] HospitalComment on above:Performed By: #### CBC #### [facility] [address] [place] [address] Dr. Sonido BejaranoHematocrit (Bld) [Volume fraction]32.9 %Critically low42.0-54.0 The [facility] HospitalComment on above:Performed By: #### CBC #### [facility] [address] [place] [address] Dr. Sonido BejaranoHemoglobin (Bld) [Mass/Vol]8.2 g/dLCritically low14.0-18.0The [facility] HospitalComment on above:Performed By: #### CBC #### [facility] [address] [place] [address] Dr. Sonido Lucero #0.02 10e3/ulNormal0.00-0.03The [facility] HospitalComment on above:Performed By: #### CBC #### [facility] [address] [place] [address] Dr. Sonido Lucero %0.3 %Normal0.0-0.5The [facility] HospitalComment on above: Performed By: #### CBC #### [facility] [address] [place] [address] Dr. Sonido Smart #1.4 103/ulNormal1.2-3.8The [facility] HospitalComment on above:Performed By: #### CBC #### [facility] [address] [place] [address] Dr. Sonido Martinezhocytes/100 WBC (Bld)22.8 %Kwfjzj11.5-60.0The [facility] HospitalComment on above:Performed By: #### CBC #### [facility] [address] [place] [address] Dr. Sonido AguilarUAL DIFF REQNONormalThe [facility] HospitalComment on above: Performed By: #### CBC #### [facility] [address] [place] [address] Dr. Sonido Reyes (RBC) [Entitic mass]15.3 pgCritically low25.9-34.0The [facility] HospitalComment on above:Performed By: #### CBC #### [facility] [address] [place] [address] Dr. Sonido Corral (RBC) [Mass/Vol]24.9 g/dLCritically low29.9-35.2The [facility] HospitalComment on above:Performed By: #### CBC #### [facility] [address] [place] [address] Dr. Sonido CorralV (RBC) [Entitic vol]61.3 fLCritically low80.0-94.0The [facility] HospitalComment on above:Performed By: #### CBC #### [facility] [address] [place] [address] Dr. Sonido Drew #0.7 103/ulNormal0.3-0.8The [facility] HospitalComment on above:Performed By: #### CBC #### [facility] [address] [place] [address] Dr. Sonido Seoocytes/100 WBC (Bld)11.6 %Normal1.7-12.0The [facility] Comment on above:Performed By: #### CBC #### [facility] [address] [place] [address] Dr. Sonido Turk #3.9 103/ulNormal1.4-6.5The [facility] HospitalComment on above:Performed By: #### CBC #### [facility] [address] [place] [address] Dr. Sonido Aguilarutrophils/100 WBC (Bld)63.5 %Wovfsg85.0-75.0The [facility] HospitalComment on above:Performed By: #### CBC #### [facility] [address] [place] [address] Dr. Sonido Mayalet mean volume (Bld) [Entitic vol]9.3 fLCritically low 9.5-13.5The [facility] HospitalComment on above:Performed By: #### CBC #### [facility] [address] [place] [address] Dr. Sonido StanfordT394 103/klVolpre724-970Ppu [facility] HospitalComment on above: Performed By: #### CBC #### [facility] [address] [place] [address] Dr. Sonido SosaC5.37 106/ulNormal4.70-6.10The [facility] HospitalComment on above:Performed By: #### CBC #### [facility] [address] [place] [address] Dr. Sonido BejaranoWBC6.1 103/ulNormal4.0-11.0The [facility] HospitalComment on above: Performed By: #### CBC #### [facility] [address] [place] [address] Dr. Sonido Michaels AUTO DIFFon [id number] #0.0 103/ulNormal0.0-0.1The [facility] HospitalComment on above:Performed By: #### CBC #### [facility] [address] [place] [address] Dr. Sonido BejaranoBasophils/100 WBC (Bld)0.3 %Normal0.2-2.0The [facility] Comment on above:Performed By: #### CBC #### [facility] [address] [place] [address] Dr. Sonido Carver #0.0 103/ulNormal0.0-0.7The [facility] HospitalComment on above: Performed By: #### CBC #### [facility] [address] [place] [address] Dr. Sonido Urbanosinophils/100 WBC (Bld)0.4 %Critically low0.9-7.0The [facility] HospitalComment on above:Performed By: #### CBC #### [facility] [address] [place] [address] Dr. Sonido Urbanrythrocyte distribution width (RBC) [Ratio]22.4 %Critically high 11.0-15.0The [facility] HospitalComment on above:Performed By: #### CBC #### [facility] [address] [place] [address] Dr. Sonido BejaranoHematocrit (Bld) [Volume fraction]31.5 %Critically low42.0-54.0 The [facility] HospitalComment on above:Performed By: #### CBC #### [facility] [address] [address] [address] Sonido BejaranoHemoglobin (Bld) [Mass/Vol]8.1 g/dLCritically low14.0-18.0The [facility] Hospitalment on above:Performed By: #### CBC #### [facility] [address] [place] [address] Dr. Sonido Lucero #0.02 10e3/ulNormal0.00-0.03The [facility] HospitalComment on above:Performed By: #### CBC #### [facility] [address] [place] [address] Dr. Sonido Lucero %0.3 %Normal0.0-0.5The [facility] HospitalComcovenant medical center on above: Performed By: #### CBC #### [facility] [address] [place] [address] Dr. Sonido Smart #1.3 103/ulNormal1.2-3.8The [facility] HospitalComment on above:Performed By: #### CBC #### [facility] [address] [place] [address] Dr. Sonido Martinezhocytes/100 WBC (Bld)19.4 %Critically low20.5-60.0The [facility] HospitalComcovenant medical center on above:Performed By: #### CBC #### [facility] [address] [place] [address] Dr. Soindo AguilarUAL DIFF REQNONormalThe [facility] HospitalComment on above: Performed By: #### CBC #### [facility] [address] [place] [address] Dr. Sonido Corral (RBC) [Entitic mass]15.5 pgCritically low25.9-34.0The [facility] HospitalComment on above:Performed By: #### CBC #### [facility] [address] [place] [address] Dr. Sonido Corral (RBC) [Mass/Vol]25.7 g/dLCritically low29.9-35.2The [facility] HospitalComment on above:Performed By: #### CBC #### [facility] [address] [address] [address] Sonido CorralV (RBC) [Entitic vol]60.2 fLCritically low80.0-94.0The [facility] HospitalComment on above:Performed By: #### CBC #### [facility] [address] [address] [address] Sonido Drew #0.9 103/ulCritically high0.3-0.8The [facility] Comment on above:Performed By: #### CBC #### [facility] [address] [place] [address] Dr. Sonido Seoocytes/100 WBC (Bld)12.9 %Critically high1.7-12.0The [facility] HospitalComment on above:Performed By: #### CBC #### [facility] [address] [place] [address] Dr. Sonido Turk #4.5 103/ulNormal1.4-6.5The [facility] HospitalComment on above:Performed By: #### CBC #### [facility] [address] [place] [address] Dr. Sonido Aguilarutrophils/100 WBC (Bld)66.7 %Xhvamp62.0-75.0The [facility] HospitalComment on above:Performed By: #### CBC #### [facility] [address] [place] [address] Dr. Sonido Mayalet mean volume (Bld) [Entitic vol]9.2 fLCritically low 9.5-13.5The [facility] HospitalComment on above:Performed By: #### CBC #### [facility] [address] [place] [address] Dr. Sonido BejaranoPLT356 103/wwIcvzsx491-501Zem [facility] HospitalComment on above: Performed By: #### CBC #### [facility] [address] [place] [address] Dr. Sonido BejaranoRBC5.23 106/ulNormal4.70-6.10The [facility] HospitalComment on above:Result Comment: 2+ POIKILOCYTOSIS 2+ ANISOCYTOSIS 2+ OVALOCYTE 1+ TEAR DROP CELL 2+ ACANTHOCYTEPerformed By: #### CBC #### [facility] [address] [place] [address] Dr. Sonido BejaranoWBC6.8 103/ulNormal4.0-11.0The [facility] HospitalComment on above: Performed By: #### CBC #### [facility] [address] [place] [address] Dr. Sonido Michaels AUTO DIFFon [id number] #0.0 103/ulNormal0.0-0.1The [facility] HospitalComment on above:Performed By: #### CBC #### [facility] [address] [place] [address] Dr. Sonido BejaranoBasophils/100 WBC (Bld)0.5 %Normal0.2-2.0[facility] Comment on above:Performed By: #### CBC #### [facility] [address] [place] [address] Dr. Sonido Carver #0.1 103/ulNormal0.0-0.7The [facility] HospitalComment on above: Performed By: #### CBC #### [facility] [address] [place] [address] Dr. Sonido Urbanosinophils/100 WBC (Bld)1.3 %Normal0.9-7.0[facility] Comment on above:Performed By: #### CBC #### [facility] [address] [place] [address] Dr. Sonido Urbanrythrocyte distribution width (RBC) [Ratio]22.8 %Critically high 11.0-15.0The [facility] HospitalComment on above:Performed By: #### CBC #### [facility] [address] [place] [address] Dr. Sonido BejaranoHematocrit (Bld) [Volume fraction]34.5 %Critically low42.0-54.0 The [facility] HospitalComment on above:Performed By: #### CBC #### [facility] [address] [address] [address] Sonido BejaranoHemoglobin (Bld) [Mass/Vol]8.9 g/dLCritically low14.0-18.0The [facility] HospitalComment on above:Performed By: #### CBC #### [facility] [address] [address] [address] Sonido Lucero #0.01 10e3/ulNormal0.00-0.03The [facility] HospitalComment on above:Performed By: #### CBC #### [facility] [address] [place] [address] Dr. Sonido Lucero %0.2 %Normal0.0-0.5The [facility] HospitalComment on above: Performed By: #### CBC #### [facility] [address] [place] [address] Dr. Sonido Smart #1.0 103/ulCritically low1.2-3.8The [facility] Comment on above:Performed By: #### CBC #### [facility] [address] [place] [address] Dr. Sonido aMrtinezhocytes/100 WBC (Bld)18.3 %Critically low20.5-60.0The [facility] HospitalComment on above:Performed By: #### CBC #### [facility] [address] [place] [address] Dr. Sonido AguilarUAL DIFF REQNONormalThe [facility] HospitalComment on above: Performed By: #### CBC #### [facility] [address] [place] [address] Dr. Sonido Corral (RBC) [Entitic mass]15.6 pgCritically low25.9-34.0The [facility] HospitalComment on above:Performed By: #### CBC #### [facility] [address] [place] [address] Dr. Sonido Corral (RBC) [Mass/Vol]25.8 g/dLCritically low29.9-35.2The [facility] HospitalComment on above:Performed By: #### CBC #### [facility] [address] [address] [address] Sonido CorralV (RBC) [Entitic vol]60.6 fLCritically low80.0-94.0The [facility] HospitalComment on above:Performed By: #### CBC #### [facility] [address] [place] [address] Dr. Sonido Drew #0.7 103/ulNormal0.3-0.8The [facility] HospitalComment on above:Performed By: #### CBC #### [facility] [address] [place] [address] Dr. Sonido Seoocytes/100 WBC (Bld)13.2 %Critically high1.7-12.0The [facility] HospitalComment on above:Performed By: #### CBC #### [facility] [address] [place] [address] Dr. Sonido Turk #3.7 103/ulNormal1.4-6.5The [facility] HospitalComment on above:Performed By: #### CBC #### [facility] [address] [place] [address] Dr. Sonido Aguilarutrophils/100 WBC (Bld)66.5 %Whnskk65.0-75.0The [facility] HospitalComment on above:Performed By: #### CBC #### [facility] [address] [place] [address] Dr. Sonido Mayalet mean volume (Bld) [Entitic vol]9.6 fLNormal9.5-13.5The [facility] HospitalComment on above:Performed By: #### CBC #### [facility] [address] [place] [address] Dr. Sonido BejaranoPLT441 103/[id number] [facility] HospitalComment on above: Performed By: #### CBC #### [facility] [address] [place] [address] Dr. Sonido BejaranoRBC5.69 106/ulNormal4.70-6.10The [facility] HospitalComment on above:Result Comment: Anisocytosis 2+ Hypochromasia 2+ Poikilocytosis 2+ Ovalocytes 1+ Tear drop cells 1+ Acanthocytes 1+Performed By: #### CBC #### [facility] [address] [place] [address] Dr. Sonido BejaranoWBC5.5 103/ulNormal4.0-11.0[facility] GeneralComment on above: Performed By: #### CBC #### [facility] [address] [place] [address] Dr. Sonido Michaels AUTO DIFFon [id number] #0.1 103/ulNormal0.0-0.1The [facility] HospitalComment on above:Performed By: #### CBC #### [facility] [address] [place] [address] Dr. Sonido BejaranoBasophils/100 WBC (Bld)1.0 %Normal0.2-2.0[facility] Comment on above:Performed By: #### CBC #### [facility] [address] [place] [address] Dr. Sonido Carver #0.1 103/ulNormal0.0-0.7The [facility] HospitalComment on above: Performed By: #### CBC #### [facility] [address] [place] [address] Dr. Sonido Urbanosinophils/100 WBC (Bld)2.1 %Normal0.9-7.0[facility] Comment on above:Performed By: #### CBC #### [facility] [address] [place] [address] Dr. Sonido Urbanrythrocyte distribution width (RBC) [Ratio]23.0 %Critically high 11.0-15.0The [facility] HospitalComment on above:Performed By: #### CBC #### [facility] [address] [place] [address] Dr. Sonido BejaranoHematocrit (Bld) [Volume fraction]32.6 %Critically low42.0-54.0 The [facility] HospitalComment on above:Performed By: #### CBC #### [facility] [address] [address] [address] Sonido BejaranoHemoglobin (Bld) [Mass/Vol]8.0 g/dLCritically low14.0-18.0The [facility] HospitalComment on above:Performed By: #### CBC #### [facility] [address] [place] [address] Dr. Sonido Lucero #0.01 10e3/ulNormal0.00-0.03The [facility] HospitalComment on above:Performed By: #### CBC #### [facility] [address] [place] [address] Dr. Sonido Lucero %0.2 %Normal0.0-0.5The [facility] HospitalComment on above: Performed By: #### CBC #### [facility] [address] [place] [address] Dr. Sonido Smart #1.1 103/ulCritically low1.2-3.8The [facility] Comment on above:Performed By: #### CBC #### [facility] [address] [place] [address] Dr. Sonido Martinezhocytes/100 WBC (Bld)22.0 %Whoorc89.5-60.0The [facility] HospitalComment on above:Performed By: #### CBC #### [facility] [address] [place] [address] Dr. Sonido AguilarUAL DIFF REQNONormalThe [facility] HospitalComment on above: Performed By: #### CBC #### [facility] [address] [place] [address] Dr. Sonido Corral (RBC) [Entitic mass]15.6 pgCritically low25.9-34.0The [facility] HospitalComment on above:Performed By: #### CBC #### [facility] [address] [place] [address] Dr. Sonido Corral (RBC) [Mass/Vol]24.5 g/dLCritically low29.9-35.2The [facility] HospitalComment on above:Performed By: #### CBC #### [facility] [address] [address] [address] Sonido CorralV (RBC) [Entitic vol]63.4 fLCritically low80.0-94.0The [facility] Hospitalment on above:Performed By: #### CBC #### [facility] [address] [place] [address] Dr. Sonido Drew #0.6 103/ulNormal0.3-0.8The [facility] HospitalComment on above:Performed By: #### CBC #### [facility] [address] [place] [address] Dr. Sonido Seoocytes/100 WBC (Bld)13.0 %Critically high1.7-12.0The [facility] Hospitalment on above:Performed By: #### CBC #### [facility] [address] [place] [address] Dr. Sonido Turk #3.0 103/ulNormal1.4-6.5The [facility] HospitalComment on above:Performed By: #### CBC #### [facility] [address] [place] [address] Dr. Sonido Aguilarutrophils/100 WBC (Bld)61.7 %Gsuutp85.0-75.0The [facility] HospitalComment on above:Performed By: #### CBC #### [facility] [address] [place] [address] Dr. Sonido Mayalet mean volume (Bld) [Entitic vol]8.6 fLCritically low 9.5-13.5The [facility] HospitalComment on above:Performed By: #### CBC #### [facility] [address] [place] [address] Dr. Sonido BejaranoPLT333 103/[id number] [facility] HospitalComment on above: Performed By: #### CBC #### [facility] [address] [place] [address] Dr. Sonido BejaranoRBC5.14 106/ulNormal4.70-6.10The [facility] HospitalComment on above:Performed By: #### CBC #### [facility] [address] [address] [address] Sonido BejaranoWBC4.9 103/ulNormal4.0-11.0The [facility] HospitalComment on above: Performed By: #### CBC #### [facility] [address] [place] [address] Dr. Sonido Michaels AUTO DIFFon [id number] #0.0 103/ulNormal0.0-0.1The [facility] HospitalComment on above:Performed By: #### CBC #### [facility] [address] [place] [address] Dr. Sonido BejaranoBasophils/100 WBC (Bld)0.8 %Normal0.2-2.0The [facility] Comment on above:Performed By: #### CBC #### [facility] [address] [place] [address] Dr. Sonido Carver #0.1 103/ulNormal0.0-0.7The [facility] HospitalComment on above: Performed By: #### CBC #### [facility] [address] [place] [address] Dr. Sonido Urbanosinophils/100 WBC (Bld)1.5 %Normal0.9-7.0The [facility] Comment on above:Performed By: #### CBC #### [facility] [address] [place] [address] Dr. Sonido Urbanrythrocyte distribution width (RBC) [Ratio]22.4 %Critically high 11.0-15.0The [facility] HospitalComment on above:Performed By: #### CBC #### [facility] [address] [place] [address] Dr. Sonido BejaranoHematocrit (Bld) [Volume fraction]32.3 %Critically low42.0-54.0 The [facility] HospitalComment on above:Performed By: #### CBC #### [facility] [address] [place] [address] Dr. Sonido BejaranoHemoglobin (Bld) [Mass/Vol]8.1 g/dLCritically low14.0-18.0The [facility] HospitalComment on above:Performed By: #### CBC #### [facility] [address] [place] [address] Dr. Sonido Lucero #0.01 10e3/ulNormal0.00-0.03The [facility] HospitalComment on above:Performed By: #### CBC #### [facility] [address] [place] [address] Dr. Sonido Lucero %0.2 %Normal0.0-0.5The [facility] HospitalComment on above: Performed By: #### CBC #### [facility] [address] [place] [address] Dr. Sonido Smart #1.2 103/ulNormal1.2-3.8The [facility] HospitalComment on above:Performed By: #### CBC #### [facility] [address] [place] [address] Dr. Sonido Martinezhocytes/100 WBC (Bld)22.8 %Vcamzt32.5-60.0The [facility] HospitalComment on above:Performed By: #### CBC #### [facility] [address] [place] [address] Dr. Sonido Wooten DIFF REQNONormalThe [facility] HospitalComment on above: Performed By: #### CBC #### [facility] [address] [place] [address] Dr. Sonido Corral (RBC) [Entitic mass]15.1 pgCritically low25.9-34.0The [facility] HospitalComment on above:Performed By: #### CBC #### [facility] [address] [place] [address] Dr. Sonido Corral (RBC) [Mass/Vol]25.1 g/dLCritically low29.9-35.2The [facility] HospitalComment on above:Performed By: #### CBC #### [facility] [address] [place] [address] Dr. Sonido CorralV (RBC) [Entitic vol]60.0 fLCritically low80.0-94.0The [facility] Hospitalment on above:Performed By: #### CBC #### [facility] [address] [place] [address] Dr. Sonido Drew #0.7 103/ulNormal0.3-0.8The [facility] HospitalComment on above:Performed By: #### CBC #### [facility] [address] [place] [address] Dr. Sonido Seoocytes/100 WBC (Bld)12.5 %Critically high1.7-12.0The [facility] HospitalComment on above:Performed By: #### CBC #### [facility] [address] [place] [address] Dr. Soniod Turk #3.2 103/ulNormal1.4-6.5The [facility] HospitalComment on above:Performed By: #### CBC #### [facility] [address] [place] [address] Dr. Sonido Aguilarutrophils/100 WBC (Bld)62.2 %Tutzvs32.0-75.0The [facility] HospitalComment on above:Performed By: #### CBC #### [facility] [address] [place] [address] Dr. Sonido Treviño mean volume (Bld) [Entitic vol]8.6 fLCritically low 9.5-13.5The [facility] HospitalComment on above:Performed By: #### CBC #### [facility] [address] [place] [address] Dr. Sonido BejaranoPLT345 103/[id number] [facility] HospitalComc[facility] on above: Performed By: #### CBC #### [facility] [address] [place] [address] Dr. Sonido BejaranoRBC5.38 106/ulNormal4.70-6.10The [facility] HospitalComment on above:Performed By: #### CBC #### [facility] [address] [place] [address] Dr. Sonido MalikBC5.2 103/ulNormal4.0-11.0The [facility] HospitalComment on above: Performed By: #### CBC #### [facility] [address] [place] [address] Dr. Sonido Michaels W MANUAL DIFFon [id number]+NormalThe [facility] HospitalComment on above:Performed By: #### TREVOR #### [facility] [address] [place] [address] Dr. Sonido Galvan LYMPH #NormalSelect Medical Specialty Hospital [facility] HospitalComment on above: Performed By: #### TREVOR #### [facility] [address] [place] [address] Dr. Sonido Galvan LYMPH %NormalSelect Medical Specialty Hospital - [facility] HospitalComment on above: Performed By: #### TREVOR #### [facility] [address] [place] [address] Dr. Sonido Rosado #Normal0.0-0.3The [facility] HospitalComment on above: Performed By: #### TREVOR #### [facility] [address] [place] [address] Dr. Sonido Rosado %Normal0-5The [facility] HospitalComment on above:Performed By: #### TREVOR #### [facility] [address] [place] [address] Dr. Sonido Mo #0.00 103/ulNormal0.00-0.10The [facility] HospitalComment on above:Performed By: #### TREVOR #### [facility] [address] [place] [address] Dr. Sonido Mo %0.0 %Critically low0.2-2.0The [facility] HospitalComment on above:Performed By: #### TREVOR #### [facility] [address] [place] [address] Dr. Sonido Lopez #NormalSelect Medical Specialty Hospital - [facility] HospitalComment on above:Performed By: #### TREVOR #### [facility] [address] [place] [address] Dr. Sonido Lopez %NormalThe [facility] HospitalComment on above:Performed By: #### CBCKATHERINE #### [facility] [address] [address] [address] Sonido BejaranoCORRECTED WBCNormal4.0-11.0The [facility] HospitalComment on above: Performed By: #### CBCKATHERINE #### [facility] [address] [address] [address] Sonido Marquez #0.08 103/ulNormal0.00-0.70The [facility] HospitalComment on above:Performed By: #### CBCKATHERINE #### [facility] [address] [address] [address] Sonido Marquez%2.0 %Normal0.9-7.0The [facility] HospitalComment on above: Performed By: #### CBCKATHERINE #### [facility] [address] [address] [address] Soniod BejaranoHCT31.1 %Critically low42.0-54.0The [facility] HospitalComment on above:Performed By: #### CBCKATHERINE #### [facility] [address] [address] [address] Sonido BejaranoHGB8.3 g/dlCritically low14.0-18.0The [facility] HospitalComment on above:Performed By: #### CBCKATHERINE #### [facility] [address] [address] [address] Sonido BejaranoHYPOCHROMASIASLIGHTNoalThe [facility] HospitalComment on above: Performed By: #### CBCMAN #### [facility] [address] [address] [address] Sonido Britt #1.13 103/ulCritically low1.20-3.80The [facility] on above:Performed By: #### CBCMAN #### [facility] [address] [address] [address] Sonido Britt%27.0 %Kiceom03.5-60.0The [facility] HospitalComment on above:Performed By: #### CBCMAN #### [facility] [address] [address] [address] Sonido CorralH15.9 pgCritically low25.9-34.0The [facility] HospitalComment on above:Performed By: #### TREVOR #### [facility] [address] [address] [address] Sonido CorralHC26.7 g/dlCritically low29.9-35.2The [facility] HospitalComment on above:Performed By: #### CBCKATHERINE #### [facility] [address] [address] [address] Sonido CorralV59.5 fLCritically low80.0-94.0The [facility] HospitalComment on above:Performed By: #### TREVOR #### [facility] [address] [place] [address] Dr. Sonido MarreroAMYELOCYTE #NormalThe [facility] HospitalComment on above: Performed By: #### TREVOR #### [facility] [address] [place] [address] Dr. Sonido StraussELOCYTE %NormalThe [facility] HospitalComment on above: Performed By: #### TREVOR #### [facility] [address] [place] [address] Dr. Sonido BejaranoMICROCYTOSIS3+NormalThe [facility] HospitalComcovenant medical center on above: Performed By: #### TREVOR #### [facility] [address] [place] [address] Dr. Sonido Pierson#0.55 103/ulNormal0.30-0.80The [facility] HospitalComment on above:Performed By: #### TREVOR #### [facility] [address] [address] [address] Sonido Pierson%13.0 %Critically high1.7-12.0The [facility] HospitalComment on above:Performed By: #### TREVOR #### [facility] [address] [place] [address] Dr. Sonido AlonsoV9.7 fLNormal9.5-13.5The [facility] HospitalComment on above: Performed By: #### CBCKATHERINE #### [facility] [address] [address] [address] Sonido Ramirez #NormalThe [facility] HospitalComment on above:Performed By: #### CBCKATHERINE #### [facility] [address] [address] [address] Sonido ChavezOCYTE %NormalThe [facility] HospitalComment on above:Performed By: #### CBCKATHERINE #### [facility] [address] [place] [address] Dr. Sonido WinBCNormalThe [facility] HospitalComment on above:Performed By: #### TREVOR #### [facility] [address] [place] [address] Dr. Sonido StanfordT421 103/[id number] [facility] HospitalComment on above: Performed By: #### TREVOR #### [facility] [address] [place] [address] Dr. Sonido SosaC5.23 106/ulNormal4.70-6.10The [facility] HospitalComment on above:Performed By: #### TREVOR #### [facility] [address] [place] [address] Dr. Sonido WoodW22.2 %Critically high11.0-15.0The [facility] HospitalComment on above:Performed By: #### TREVOR #### [facility] [address] [place] [address] Dr. Sonido Quiros #2.44 103/ulNormal1.40-6.50The [facility] HospitalComment on above:Performed By: #### TREVOR #### [facility] [address] [place] [address] Dr. Sonido Quiros %58.0 %Bnnaqo69.0-75.0The [facility] HospitalComment on above: Performed By: #### TREVOR #### [facility] [address] [place] [address] Dr. Sonido MalikBC4.2 103/ulNormal4.0-11.0The [facility] HospitalComment on above: Performed By: #### CBCMAN #### [facility] [address] [place] [address] Dr. Sonido Michaels AUTO DIFFon [id number] #0.0 103/ulNormal0.0-0.1The [facility] HospitalComment on above:Performed By: #### CBC #### [facility] [address] [place] [address] Dr. Sonido BejaranoBasophils/100 WBC (Bld)0.6 %Normal0.2-2.0The [facility] Comment on above:Performed By: #### CBC #### [facility] [address] [place] [address] Dr. Sonido Carver #0.1 103/ulNormal0.0-0.7The [facility] HospitalComment on above: Performed By: #### CBC #### [facility] [address] [place] [address] Dr. Sonido Urbanosinophils/100 WBC (Bld)1.0 %Normal0.9-7.0[facility] Comment on above:Performed By: #### CBC #### [facility] [address] [place] [address] Dr. Sonido Urbanrythrocyte distribution width (RBC) [Ratio]21.9 %Critically high 11.0-15.0[facility] GeneralComment on above:Result Comment: anisocytosis 2+ Performed By: #### CBC #### [facility] [address] [place] [address] Dr. Sonido BejaranoHematocrit (Bld) [Volume fraction]32.7 %Critically low42.0-54.0 The [facility] HospitalComment on above:Performed By: #### CBC #### [facility] [address] [place] [address] Dr. Sonido BejaranoHemoglobin (Bld) [Mass/Vol]8.4 g/dLCritically low14.0-18.0The [facility] HospitalComment on above:Performed By: #### CBC #### [facility] [address] [address] [address] Sonido Lucero #0.01 10e3/ulNormal0.00-0.03The [facility] HospitalComment on above:Performed By: #### CBC #### [facility] [address] [address] [address] Sonido Lucero %0.2 %Normal0.0-0.5The [facility] HospitalComment on above: Performed By: #### CBC #### [facility] [address] [place] [address] Dr. Sonido Smart #1.1 103/ulCritically low1.2-3.8The [facility] Comment on above:Performed By: #### CBC #### [facility] [address] [place] [address] Dr. Sonido Martinezhocytes/100 WBC (Bld)22.3 %Esnmgq05.5-60.0The [facility] HospitalComment on above:Performed By: #### CBC #### [facility] [address] [place] [address] Dr. Sonido AguilarUAL DIFF REQNONormalThe [facility] HospitalComment on above: Performed By: #### CBC #### [facility] [address] [place] [address] Dr. Sonido Reyes (RBC) [Entitic mass]15.3 pgCritically low25.9-34.0The [facility] HospitalComment on above:Performed By: #### CBC #### [facility] [address] [place] [address] Dr. Sonido Corral (RBC) [Mass/Vol]25.7 g/dLCritically low29.9-35.2The [facility] HospitalComment on above:Result Comment: hypochromasia 2+Performed By: #### CBC #### [facility] [address] [place] [address] Dr. Sonido CorralV (RBC) [Entitic vol]59.6 fLCritically low80.0-94.0The [facility] HospitalComment on above:Result Comment: microcytosis 3+Performed By: #### CBC #### [facility] [address] [place] [address] Dr. Sonido Drew #0.5 103/ulNormal0.3-0.8The [facility] HospitalComment on above:Performed By: #### CBC #### [facility] [address] [place] [address] Dr. Sonido Seoocytes/100 WBC (Bld)10.8 %Normal1.7-12.0The [facility] Comment on above:Performed By: #### CBC #### [facility] [address] [place] [address] Dr. Sonido Turk #3.2 103/ulNormal1.4-6.5The [facility] HospitalComment on above:Performed By: #### CBC #### [facility] [address] [place] [address] Dr. Sonido Aguilarutrophils/100 WBC (Bld)65.1 %Fkxatl48.0-75.0The [facility] HospitalComment on above:Performed By: #### CBC #### [facility] [address] [place] [address] Dr. Sonido Treviño mean volume (Bld) [Entitic vol]9.5 fLNormal9.5-13.5The [facility] HospitalComment on above:Performed By: #### CBC #### [facility] [address] [place] [address] Dr. Sonido StanfordT415 103/[id number] [facility] HospitalComment on above: Performed By: #### CBC #### [facility] [address] [place] [address] Dr. Sonido BejaranoRBC5.49 106/ulNormal4.70-6.10The [facility] HospitalComment on above:Performed By: #### CBC #### [facility] [address] [place] [address] Dr. Sonido BejaranoWBC5.0 103/ulNormal4.0-11.0The [facility] HospitalComment on above: Performed By: #### CBC #### [facility] [address] [place] [address] Dr. Sonido Michaels AUTO DIFFon [id number] #0.0 103/ulNormal0.0-0.1The [facility]ment on above:Performed By: #### CBC #### [facility] [address] [place] [address] Dr. Sonido BejaranoBasophils/100 WBC (Bld)0.3 %Normal0.2-2.0The [facility] Comment on above:Performed By: #### CBC #### [facility] [address] [place] [address] Dr. Sonido Carver #0.0 103/ulNormal0.0-0.7The [facility] HospitalComment on above: Performed By: #### CBC #### [facility] [address] [place] [address] Dr. Sonido Urbanosinophils/100 WBC (Bld)0.7 %Critically low0.9-7.0The [facility] HospitalComment on above:Performed By: #### CBC #### [facility] [address] [place] [address] Dr. Sonido Urbanrythrocyte distribution width (RBC) [Ratio]21.9 %Critically high 11.0-15.0The [facility]ment on above:Performed By: #### CBC #### [facility] [address] [place] [address] Dr. Sonido BejaranoHematocrit (Bld) [Volume fraction]30.0 %Critically low42.0-54.0 The [facility] HospitalComment on above:Performed By: #### CBC #### [facility] [address] [place] [address] Dr. Sonido BejaranoHemoglobin (Bld) [Mass/Vol]7.8 g/dLCritically low14.0-18.0The [facility] Hospitalment on above:Performed By: #### CBC #### [facility] [address] [place] [address] Dr. Sonido Lucero #0.01 10e3/ulNormal0.00-0.03The [facility] HospitalComment on above:Performed By: #### CBC #### [facility] [address] [address] [address] Sonido Lucero %0.2 %Normal0.0-0.5The [facility] HospitalComment on above: Performed By: #### CBC #### [facility] [address] [address] [address] Sonido Smart #1.0 103/ulCritically low1.2-3.8The [facility] Comment on above:Performed By: #### CBC #### [facility] [address] [place] [address] Dr. Sonido Martinezhocytes/100 WBC (Bld)18.0 %Critically low20.5-60.0The [facility] HospitalComment on above:Performed By: #### CBC #### [facility] [address] [address] [address] Sonido AguilarUAL DIFF REQNONormalThe [facility] HospitalComment on above: Performed By: #### CBC #### [facility] [address] [address] [address] Sonido Reyes (RBC) [Entitic mass]15.9 pgCritically low25.9-34.0The [facility] HospitalComment on above:Performed By: #### CBC #### [facility] [address] [address] [address] Sonido Corral (RBC) [Mass/Vol]26.0 g/dLCritically low29.9-35.2The [facility] HospitalComment on above:Performed By: #### CBC #### [facility] [address] [address] [address] Sonido Corral (RBC) [Entitic vol]61.2 fLCritically low80.0-94.0The [facility] HospitalComment on above:Performed By: #### CBC #### [facility] [address] [address] [address] Sonido Drew #0.5 103/ulNormal0.3-0.8The [facility] HospitalComment on above:Performed By: #### CBC #### [facility] [address] [place] [address] Dr. Sonido Seoocytes/100 WBC (Bld)8.7 %Normal1.7-12.0The [facility] Comment on above:Performed By: #### CBC #### [facility] [address] [place] [address] Dr. Sonido Turk #4.1 103/ulNormal1.4-6.5The [facility] HospitalComment on above:Performed By: #### CBC #### [facility] [address] [place] [address] Dr. Sonido Aguilarutrophils/100 WBC (Bld)72.1 %Vcbibc39.0-75.0The [facility] HospitalComment on above:Performed By: #### CBC #### [facility] [address] [place] [address] Dr. Sonido Mayalet mean volume (Bld) [Entitic vol]9.3 fLCritically low 9.5-13.5The [facility] HospitalComment on above:Performed By: #### CBC #### [facility] [address] [place] [address] Dr. Sonido BejaranoPLT339 103/[id number] [facility] HospitalComment on above: Performed By: #### CBC #### [facility] [address] [place] [address] Dr. Sonido BejaranoRBC4.90 106/ulNormal4.70-6.10The [facility] HospitalComment on above:Performed By: #### CBC #### [facility] [address] [place] [address] Dr. Sonido BejaranoWBC5.7 103/ulNormal4.0-11.0The [facility] HospitalComment on above: Performed By: #### CBC #### [facility] [address] [place] [address] Dr. Sonido Michaels AUTO DIFFon [id number] #0.0 103/ulNormal0.0-0.1The [facility] HospitalComment on above:Performed By: #### CBC #### [facility] [address] [address] [address] Sonido BejaranoBasophils/100 WBC (Bld)0.7 %Normal0.2-2.0The [facility] Comment on above:Performed By: #### CBC #### [facility] [address] [address] [address] Sonido Carver #0.3 103/ulNormal0.0-0.7The [facility] HospitalComment on above: Performed By: #### CBC #### [facility] [address] [address] [address] Sonido Urbanosinophils/100 WBC (Bld)5.3 %Normal0.9-7.0The [facility] Comment on above:Performed By: #### CBC #### [facility] [address] [address] [address] Sonido Urbanrythrocyte distribution width (RBC) [Ratio]22.1 %Critically high 11.0-15.0The [facility] HospitalComment on above:Performed By: #### CBC #### [facility] [address] [address] [address] Sonido BejaranoHematocrit (Bld) [Volume fraction]32.2 %Critically low42.0-54.0 The [facility] HospitalComment on above:Performed By: #### CBC #### [facility] [address] [address] [address] Sonido BejaranoHemoglobin (Bld) [Mass/Vol]8.2 g/dLCritically low14.0-18.0The [facility] HospitalComment on above:Performed By: #### CBC #### [facility] [address] [place] [address] Dr. Sonido Lucero #0.01 10e3/ulNormal0.00-0.03The [facility] HospitalComment on above:Performed By: #### CBC #### [facility] [address] [address] [address] Sonido Lucero %0.2 %Normal0.0-0.5The [facility] HospitalComment on above: Performed By: #### CBC #### [facility] [address] [address] [address] Sonido Smart #1.1 103/ulCritically low1.2-3.8The [facility] Comment on above:Performed By: #### CBC #### [facility] [address] [address] [address] Sonido Martinezhocytes/100 WBC (Bld)19.3 %Critically low20.5-60.0The [facility] HospitalComment on above:Performed By: #### CBC #### [facility] [address] [address] [address] Sonido Wooten DIFF REQNONormalThe [facility] HospitalComment on above: Performed By: #### CBC #### [facility] [address] [address] [address] Sonido Reyes (RBC) [Entitic mass]15.8 pgCritically low25.9-34.0The [facility] HospitalComment on above:Performed By: #### CBC #### [facility] [address] [address] [address] Sonido Corral (RBC) [Mass/Vol]25.5 g/dLCritically low29.9-35.2The [facility] HospitalComment on above:Performed By: #### CBC #### [facility] [address] [address] [address] Sonido Parks (RBC) [Entitic vol]62.0 fLCritically low80.0-94.0The [facility] HospitalComment on above:Performed By: #### CBC #### [facility] [address] [address] [address] Sonido Drew #0.9 103/ulCritically high0.3-0.8The [facility] Comment on above:Performed By: #### CBC #### [facility] [address] [address] [address] Sonido Seoocytes/100 WBC (Bld)16.0 %Critically high1.7-12.0The [facility] HospitalComment on above:Performed By: #### CBC #### [facility] [address] [place] [address] Dr. Sonido AguilarUT #3.2 103/ulNormal1.4-6.5The [facility] HospitalComment on above:Performed By: #### CBC #### [facility] [address] [place] [address] Dr. Sonido Aguilarutrophils/100 WBC (Bld)58.5 %Lkhldt29.0-75.0The [facility] HospitalComment on above:Performed By: #### CBC #### [facility] [address] [place] [address] Dr. Sonido Mayalet mean volume (Bld) [Entitic vol]9.3 fLCritically low 9.5-13.5The [facility] HospitalComment on above:Performed By: #### CBC #### [facility] [address] [place] [address] Dr. Sonido BejaranoPLT335 103/[id number] [facility] HospitalComment on above: Performed By: #### CBC #### [facility] [address] [place] [address] Dr. Sonido BejaranoRBC5.19 106/ulNormal4.70-6.10The [facility] HospitalComment on above:Performed By: #### CBC #### [facility] [address] [place] [address] Dr. Sonido BejaranoWBC5.5 103/ulNormal4.0-11.0The [facility] HospitalComment on above: Performed By: #### CBC #### [facility] [address] [place] [address] Dr. Sonido LangleyC AUTO DIFFon [id number] #0.0 103/ulNormal0.0-0.1The [facility] HospitalComment on above:Performed By: #### CBC #### [facility] [address] [place] [address] Dr. Sonido BejaranoBasophils/100 WBC (Bld)0.8 %Normal0.2-2.0The [facility] Comment on above:Performed By: #### CBC #### [facility] [address] [place] [address] Dr. Sonido Carver #0.1 103/ulNormal0.0-0.7The [facility] HospitalComment on above: Performed By: #### CBC #### [facility] [address] [place] [address] Dr. Sonido Urbanosinophils/100 WBC (Bld)2.3 %Normal0.9-7.0The [facility] Comment on above:Performed By: #### CBC #### [facility] [address] [place] [address] Dr. Sonido Urbanrythrocyte distribution width (RBC) [Ratio]21.5 %Critically high 11.0-15.0The [facility] HospitalComment on above:Performed By: #### CBC #### [facility] [address] [place] [address] Dr. Sonido BejaranoHematocrit (Bld) [Volume fraction]30.5 %Critically low42.0-54.0 The [facility] HospitalComment on above:Performed By: #### CBC #### [facility] [address] [place] [address] Dr. Sonido BejaranoHemoglobin (Bld) [Mass/Vol]7.9 g/dLCritically low14.0-18.0The [facility] HospitalComment on above:Performed By: #### CBC #### [facility] [address] [place] [address] Dr. Sonido Lucero #0.01 10e3/ulNormal0.00-0.03The [facility] HospitalComment on above:Performed By: #### CBC #### [facility] [address] [place] [address] Dr. Sonido Lucero %0.2 %Normal0.0-0.5The [facility] HospitalComment on above: Performed By: #### CBC #### [facility] [address] [place] [address] Dr. Sonido Smart #1.3 103/ulNormal1.2-3.8The [facility] HospitalComment on above:Performed By: #### CBC #### [facility] [address] [place] [address] Dr. Sonido Martinezhocytes/100 WBC (Bld)24.6 %Dmzbqs46.5-60.0The [facility] HospitalComment on above:Performed By: #### CBC #### [facility] [address] [place] [address] Dr. Sonido AguilarUAL DIFF REQNONormalThe [facility] HospitalComment on above: Performed By: #### CBC #### [facility] [address] [place] [address] Dr. Sonido Corral (RBC) [Entitic mass]15.6 pgCritically low25.9-34.0The [facility] HospitalComment on above:Performed By: #### CBC #### [facility] [address] [place] [address] Dr. Sonido Corral (RBC) [Mass/Vol]25.9 g/dLCritically low29.9-35.2The [facility] HospitalComment on above:Performed By: #### CBC #### [facility] [address] [place] [address] Dr. Sonido Corral (RBC) [Entitic vol]60.4 fLCritically low80.0-94.0The [facility] HospitalComment on above:Performed By: #### CBC #### [facility] [address] [place] [address] Dr. Sonido Drew #0.6 103/ulNormal0.3-0.8The [facility] HospitalComment on above:Performed By: #### CBC #### [facility] [address] [place] [address] Dr. Sonido Seoocytes/100 WBC (Bld)12.1 %Critically high1.7-12.0The [facility] HospitalCom[facility] on above:Performed By: #### CBC #### [facility] [address] [place] [address] Dr. Sonido AguilarUT #3.1 103/ulNormal1.4-6.5The [facility] HospitalComment on above:Performed By: #### CBC #### [facility] [address] [place] [address] Dr. Sonido Aguilarutrophils/100 WBC (Bld)60.0 %Rlylma51.0-75.0The [facility] HospitalComment on above:Performed By: #### CBC #### [facility] [address] [place] [address] Dr. Sonido Mayalet mean volume (Bld) [Entitic vol]9.6 fLNormal9.5-13.5The [facility] HospitalComment on above:Performed By: #### CBC #### [facility] [address] [place] [address] Dr. Sonido BejaranoPLT399 103/[id number] [facility] HospitalComment on above: Performed By: #### CBC #### [facility] [address] [place] [address] Dr. Sonido BejaranoRBC5.05 106/ulNormal4.70-6.10The [facility] HospitalComment on above:Performed By: #### CBC #### [facility] [address] [place] [address] Dr. Sonido BejaranoWBC5.1 103/ulNormal4.0-11.0The [facility] HospitalComment on above: Performed By: #### CBC #### [facility] [address] [place] [address] Dr. Sonido LangleyC AUTO DIFFon [id number] #0.0 103/ulNormal0.0-0.1The [facility] Hospitalment on above:Performed By: #### CBC #### [facility] [address] [address] [address] Sonido BejaranoBasophils/100 WBC (Bld)0.3 %Normal0.2-2.0The [facility] Comment on above:Performed By: #### CBC #### [facility] [address] [address] [address] Sonido Carver #0.1 103/ulNormal0.0-0.7The [facility] HospitalComment on above: Performed By: #### CBC #### [facility] [address] [place] [address] Dr. Sonido Urbanosinophils/100 WBC (Bld)1.0 %Normal0.9-7.0The [facility] Comment on above:Performed By: #### CBC #### [facility] [address] [place] [address] Dr. Sonido Urbanrythrocyte distribution width (RBC) [Ratio]21.2 %Critically high 11.0-15.0The [facility] HospitalComment on above:Performed By: #### CBC #### [facility] [address] [place] [address] Dr. Sonido BejaranoHematocrit (Bld) [Volume fraction]32.2 %Critically low42.0-54.0 The [facility] HospitalComment on above:Performed By: #### CBC #### [facility] [address] [place] [address] Dr. Sonido BejaranoHemoglobin (Bld) [Mass/Vol]8.3 g/dLCritically low14.0-18.0[facility] GeneralComment on above:Performed By: #### CBC #### [facility] [address] [place] [address] Dr. Sonido Lucero #0.03 10e3/ulNormal0.00-0.03The [facility] HospitalComment on above:Performed By: #### CBC #### [facility] [address] [place] [address] Dr. Sonido Lucero %0.4 %Normal0.0-0.5The [facility] HospitalComment on above: Performed By: #### CBC #### [facility] [address] [address] [address] Sonido Smart #1.0 103/ulCritically low1.2-3.8The [facility] on above:Performed By: #### CBC #### [facility] [address] [address] [address] Sonido Martinezhocytes/100 WBC (Bld)15.2 %Critically low20.5-60.0The [facility] HospitalComment on above:Performed By: #### CBC #### [facility] [address] [address] [address] Sonido Wooten DIFF REQNONormalThe [facility] HospitalComment on above: Performed By: #### CBC #### [facility] [address] [place] [address] Dr. Sonido Reyes (RBC) [Entitic mass]16.1 pgCritically low25.9-34.0The [facility] HospitalComment on above:Performed By: #### CBC #### [facility] [address] [place] [address] Dr. Sonido Corral (RBC) [Mass/Vol]25.8 g/dLCritically low29.9-35.2The [facility]ment on above:Performed By: #### CBC #### [facility] [address] [place] [address] Dr. Sonido Corral (RBC) [Entitic vol]62.4 fLCritically low80.0-94.0The [facility]ment on above:Performed By: #### CBC #### [facility] [address] [address] [address] Sonido Drew #0.6 103/ulNormal0.3-0.8The [facility] on above:Performed By: #### CBC #### [facility] [address] [place] [address] Dr. Sonido Seoocytes/100 WBC (Bld)8.5 %Normal1.7-12.0The [facility] Comment on above:Performed By: #### CBC #### [facility] [address] [place] [address] Dr. Sonido Turk #5.0 103/ulNormal1.4-6.5The [facility] HospitalComment on above:Performed By: #### CBC #### [facility] [address] [place] [address] Dr. Sonido gAuilarutrophils/100 WBC (Bld)74.6 %Tozldl27.0-75.0The [facility] HospitalComment on above:Performed By: #### CBC #### [facility] [address] [place] [address] Dr. Sonido Mayalet mean volume (Bld) [Entitic vol]9.9 fLNormal9.5-13.5The [facility] HospitalComment on above:Performed By: #### CBC #### [facility] [address] [place] [address] Dr. Sonido BejaranoPLT355 103/[id number] [facility] HospitalComment on above: Performed By: #### CBC #### [facility] [address] [place] [address] Dr. Sonido BejaranoRBC5.16 106/ulNormal4.70-6.10The [facility] HospitalComment on above:Result Comment: 1+ ovalocytes slight hypochromic slight microchromicPerformed By: #### CBC #### [facility] [address] [place] [address] Dr. Sonido BejaranoWBC6.7 103/ulNormal4.0-11.0The [facility] HospitalComment on above: Performed By: #### CBC #### [facility] [address] [place] [address] Dr. Sonido Fisher POSTPROC EVALon [id number] POSTPROC EVALHNO ID: [id number] Author: Michael Martínez MD Service: Anesthesiology Author Type: Anesthesiologist Type: Anesthesia Postprocedure Evaluation Filed: 10/17/2021 10:23 AM Note Text: POST ANESTHESIA EVALUATION NOTE : 2000 Procedure Summary Date: 10/17/21 Room / Location: [address] / [facility] Anesthesia Start: 841 Anesthesia Stop: [...] October 17, 2021 TIME: 10:23 AM CSN: [id number] PRE-OPon [id number] PRE-OPHNO ID: [id number] Author: Michael Martínez MD Service: Anesthesiology Author Type: Anesthesiologist Type: Anesthesia Preprocedure Evaluation Filed: 10/17/2021 8:32 AM Note Text: ANESTHESIOLOGY DAY OF SURGERY NOTE : 2000 Procedure Information Date/Time: 10/17/21729 Procedure: HEMORRHOIDECTOMY EXTERNAL > 2 COLUMNS/GROUPS (N/A ) Location: [address] / [facility] Surgeons: Arnold Genao MD Estimated [...] October 17, 2021 TIME: 8:27 AM CSN: [id number] [facility] OP NOTon 10-17-2021 BRIEF OP NOTHNO ID: [id number] Author: Jared Rowe MD Service: Colorectal Author Type: Resident Type: Brief Op Note Filed: 10/17/2021 9:15 AM Note Text: BRIEF OPERATIVE / PROCEDURE NOTE LOG ID: [id number] SURGERY/PROCEDURE DATE: 10/17/2021 INCISION/PROCEDURE START TIME: 8:55 AM INCISION CLOSE/PROCEDURE END TIME: 9:02 AM SURGEON(S)/PROCEDURALIST(S) AND REFRIGERATION PERSON(S): Surgeon(s) and Role: * Arnold Genao MD [...] Colbert DATE: October 17, 2021 TIME: 9:13 [facility]ICAL[facility] [id number] PHYSICALHNO ID: [id number] Author: Jared Rowe MD Service: Colorectal Author [...] Colbert DATE: October 17, 2021 TIME: 7:22 [facility] [id number] NOHNO ID: [id number] Author: Arnold Gneao MD Service: Colorectal Author Type: Physician Type: Operative Report Filed: 10/30/2021 11:21 AM Note Text: [facility] - Operative Report RJ COLBERT : 2000 AGE: 21. SEX: M PATIENT TYPE: A HOSP SVC: CORS LOCATION: [facility] ATTENDING PHYSICIAN: Arnold Genao M.D. CSN NUMBER: [id number] DATE OF SURGERY/PROCEDURE: 10/17/2021 INCISION/PROCEDURE START TIME: 8:55 AM INCISION CLOSE/PROCEDURE END TIME: 9:02 AM PREOPERATIVE DIAGNOSIS: Hemorrhoids. POSTOPERATIVE DIAGNOSIS: Hemorrhoids. SURGEON: Arnold Genao M.D. REFRIGERATION PERSON: Jared. SURGERY/PROCEDURE: Ablation. ANESTHESIA: General ESTIMATED BLOOD [...] was overall very minor. Arnold Genao M.D. BC:[id number] /[id number] [facility] HospitalOPERATIVE NO on [id number] NOHNO ID: [id number] Author: Arnold Genao MD Service: Colorectal Author Type: Physician Type: Operative Report Filed: 08/01/2021 1:12 PM Note Text: [facility] - Operative Report RJ COLBERT : 2000 AGE: 21. SEX: M [facility] [place] LOCATION: [facility] ATTENDING PHYSICIAN: Arnold Genao M.D. CSN NUMBER: [id number] DATE OF SURGERY/PROCEDURE: 07/12/2021 INCISION/PROCEDURE START TIME: 10:55 AM INCISION CLOSE/PROCEDURE END TIME: 10:58 AM PREOPERATIVE DIAGNOSIS: Rectal bleeding. POSTOPERATIVE DIAGNOSIS: Rectal bleeding. SURGEON: Arnold Genao M.D. REFRIGERATION PERSON: None. SURGERY/PROCEDURE: Rubber-band ligation hemorrhoidectomy. ANESTHESIA: General [...] room in good condition. Arnold Genao M.D. BC:[id number] /[id number] [facility]Ken[facility] HospitalANES POSTPROC EVALon [id number] POSTPROC EVALHNO ID: [id number] Author: Jared Arriaga MD Service: Anesthesiology Author Type: Anesthesiologist Type: Anesthesia Postprocedure Evaluation Filed: 07/12/2021 12:05 PM Note Text: POST ANESTHESIA EVALUATION NOTE : 2000 Procedure Summary Date: 07/12/21 Room / Location: [address] Anesthesia Start: 1044 Anesthesia Stop: 1110 [...] July 12, 2021 TIME: 12:05 PM CSN: [id number] PRE-OPon [id number] PRE-OPHNO ID: [id number] Author: Jared Arriaga MD Service: Anesthesiology Author [...] July 12, 2021 TIME: 9:18 AM CSN: [id number] PH[facility]ICAL[facility]-12-2021 HISTORY PHYSICALHNO ID: [id number] Author: Arnold Genao MD Service: Colorectal Author [...] Colbert DATE: July 12, 2021 TIME: 10:39 [facility] HospitalCoding Summary.on 25-20-2063Xhunjf Summary. CODING DATE: 05/01/2018 FINAL [facility] STATUS: Home (Routine DC) PAYOR: Medicaid [...] PROC EAPG STAT DESCRIPTION DOCTOR NAME DATE 50485 0149 Colonoscopy, flexible; Caspre GAUTAM, Shaw 04/17/2018 with biopsy, single or multiple 74 Discontinued [facility] Procedure After Administration of Anesthe 76623 Anesthesia for Colin Peñaloza MD 04/17/2018 intestinal endoscopic procedures, endoscope introduced distal to duodenum; not otherwise specified NOTE: The code number assigned matches the documented diagnosis and / or procedure in the patient's chart. However, the narrative phrase printed from the coding software may appear abbreviated, or result in slightly different terminology. Coded By: Sary Little Date Saved: 05/01/2018 08:02 [facility] CenterCoding Summary.CODING DATE: 04/23/2018 FINAL [facility] STATUS: Home (Routine DC) PAYOR: Medicaid [...] PROC EA STAT DESCRIPTION DOCTOR NAME DATE 89443 0149 Colonoscopy, flexible; Colin Shirley MD 04/17/2018 with biopsy, single or multiple 74 Discontinued [facility] Procedure After Administration of Anesthe 70147 Anesthesia for Colin Peñaloza MD 04/17/2018 intestinal endoscopic procedures, endoscope introduced distal to duodenum; not otherwise specified NOTE: Thecode number assigned matches the documented diagnosis and / or procedure in the patient's chart. However, the narrative phrase printed from the coding software may appear abbreviated, or result in slightly different terminology. Coded By: Sary Little Date Saved: 04/23/2018 11:46 [facility] CenterProgress Note-Physicianon 07-20-2441Wrcctmql Note-PhysicianPatient: RJ COLBERT Age: 17 years Sex: Male : 2000 Associated Diagnoses: None Author: Quincy Ojeda Jr, DO Preoperative Information Anesthesia results Review of Systems Cardiovascular: Negative. Respiratory: Negative. Health Status Allergies: Allergic Reactions (Selected)No Known Medication Allergies Current medications: (Selected) Documented MedicationsDoc umentedColace: 100 mg, Oral, Daily, Refills(s) 0, Constipationbenztropine: 2 mg, Oral, BID, Refills(s) 0, Spasmclonazepam: 0.5 mg, Oral, BID, Refills(s) 0, Seizureclozapine 100 mg oral tablet: 100 mg= 1 tab(s), Oral, BID, # 21 tab(s), Refills(s) 0, Psychosisfluoxetine: 40 mg, Oral, BID, Refills(s)0, Depressionhaloperidol: 10 mg, Oral, BID, Refills(s) 0, [...] classification: II (soft palate, fauces, uvula visible). R espiratory: Lungs are clear to auscultation. Cardiovascular: Regular rhythm. Neurologic: Alert, Oriented. Plan [place] [employer]esthesiologists (ASA) physical status classification: Class II. Anesthetic Preoperative Plan Anesthesia: General. . Anesthetic plan, risks, benefits, and alternatives discussed with the patient and/or family. Communication: face to face with (patient 5 minutes, Patient educated on smoking cesstation).[facility] HospitalComment on above:Result Comment: Electronically Signed By: Quincy Ojeda Jr, DO\.br\Date and Time Signed: 04/28/18 08:15 EDTMain OR Intraoperative Recordon [id number] OR Intraoperative RecordIntraOp Document Type FT Summary Primary Physician: Colin Shirley MD Finalized Date/Time: 04/20/18 09:38:35 Pt. Name: RJ COLBERT D.O.B./Sex: 2000 Male Med Rec #: [id number] Physician: Colin Shirley MD Financial #: [id number] Pt. Type: O Room/Bed: / Admit/Disch: 04/17/18 09:21:54 - 04/17/18 23:59:59 Institution: Case Times FT Entry 1 Patient Times In Room 04/17/18 13:1 4:00 Out Room 04/17/18 13:32:00 Procedure Times Start 04/17/18 13:18:00 Stop 04/17/18 13:29:00 Anesthesia Times Start 04/17/18 13:14:00 Stop 04/17/18 13:32:00 Last Modified By: Addie Oreilly CST 04/17/18 13:32:23 General Comments: 04/20/2018 Chart opened to review and send charges Marika Pineda MORTGAGE LOAN COUNSELOR Case Attendance FT Entry 1 Entry 2 Entry 3 Case Attendee Casper GAUTAM, Colin Rene RN, Ashlee Boyd CST,Tori Role Performed Surgeon - Primary Powder Mixer - Primary Scrub - Primary Time In 04/17/18 13:14:00 04/17/18 13:14:00 04/17/18 13:14:00 Time Out 04/17/18 13:32:00 04/17/18 13:32:00 04/17/18 13:32:00 Procedure COLONOSCOPY(.) COLONOSCOPY(.) COLONOSCOPY(.) Comments Last Modified By: Anju RN, Ashlee Rene RN, Ashlee Jeffers RN 04/17/18 13:32:29 04/17/18 13:32:29 04/17/18 13:32:29 Entry4 Entry 5 Entry 6 Case Attendee Sumter Henry Epsom, Zenaida Mortensen CAA, Magi Garrett Role Performed Scrub - Other Scrub - Other Anesthesiologist Survey Statistician Time In 04/17/18 13:14:00 04/17 13:14:00 04/17/18 13:14:00 Time Out 04/17/18 13:32:00 04/17/18 13:32:00 04/17/18 13:32:00 Procedure COLONOSCOPY(.) COLONOSCOPY(.) COLONOSCOPY(.) Comments ORIENTING help in room Dr. Pineda supervising Last Modified By: Anju RN, Ashlee WorkAshlee canela RN, RN, Angela 04/17/18 13:32:29 04/17/18 13:32:29 04/17/18 13:32:29 Perioperative Protocols FT Pre-Care Text: Implements protective measures prior to operative or invasive procedure, confirms identity before the operative or invasive procedure, verifies operative procedure, surgical site, and laterality Entry 1 Procedure(s) COLONOSCOPY(.) Patient Identity Birthday, ID Band Verified (select at Check, Patient least 2): ParticipationConsents / H and P Anesthesia Consent, Operative Site N/A Verified HandP, Surgery/Procedure MarkingVerified Consent Surgical Site Yes Laterality Verified n/a Verified Procedure Verified Yes Correct Patient Yes Position Verified Availability Equipment, Medication Prep Dry n/a Verified (If Applicable ) PreOp Antibiotic No Time Out Colin Shirley MD, Given Participants Anju TREVINO, Ashlee, Festus CAA, Yvonne Briggs, Oliver ZARATE, Stas Valle Break And Load Operator, Magi Briggs, Zenaida Palomares Time Out Complete 04/17/1813:16:00 Outcomes Met? Yes Last Modified By: Ashlee Rene RN 04/17/18 13:22:01 Post-Care Text: The patient is free from signs and symptoms of injury caused by extraneous objects Allergy Information FT Pre-Care Text: Verifies allergies Entry 1 Allergies Reviewed? Yes Allergies Reviewed Self/Patient With Outcomes Met? Yes Last Modified By: Ashlee Rene RN 04/17/18 07:22:46 Post-Care Text: Thepatient received appropriate medication(s) safely administered during the perioperative period Surgical Procedures FT Entry 1 Procedure Description Procedure COLONOSCOPY Modifiers . Surgeon Description COLONOSCOPY performed up to ascending colon only d/t poor prep on right side of colon , biopsy ofnodular mucosa in sigmoid colon and rectal biopsy. Primary Procedure Yes Primary Surgeon Colin Shirley MD Start 04/17/18 13:18:00 Stop 04/17/18 13:29:00 Anesthesia Type General Surgical Service Gastroenterology Wound Class 2 - Clean-Contaminated Last Modified By: Ashlee Rene RN 04/17/18 13:31:19General Case Data FT Pre-Care Text: Classifies surgical [...] Last Modified By: Addie Oreilly CST 04/20/18 09: 38:33 Post-Care Text: The patient is free from signs and symptoms of infection Skin Assessment (PreProcedure) FT Pre-Care Text: Implements protective measures to prevent skin/ tissue injury due to thermal or mechanical sources Evaluates for signs and symptoms of physical injury to skin and tissue Entry 1 Skin Integrity Intact, [place], Warm, and Skin Abnormality No Dry Outcomes Met? Yes Last Modified By: Ashlee Rene RN 04/17/18 07:23:14 Post-Care Text: The patient is free from signs and symptoms of injury caused by extraneous objects Patient Positioning FT Pre-Care Text: Identifies physicalalterations that require additional precautions for procedure-specific positioning, [...] Modified By: Ashlee Rene RN 04/17/18 13:22:37 Post- Care Text: The patient is free from signs [...] RN Patient Status Stable Skin. Condition Intact, [place], Warm, and Dry Airway Maintenance Oxygen in Use? No Airway Device N/A Outcomes Met? 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 Yes Verified Last Modified By: Ashlee Rene RN 04/17/18 07:24:05 Post-Care Text: The patient received appropriate medication(s) safely administered during the perioperative period For [facility] please see scanned medication reconcilliation [...] RN 04/17/18 13:32 Addie Oreilly CST 04/20/18 09:38Normal [facility] HospitalHistory and Physicalon 39-81-3371Zawshlb and Physical Date: 03/10/2018 2:15 PMPatient Name: Rj Lepe #: [id number]: MaleDOB (age): 2000 (17)Provider: Annie Benton Complaint: Change in Bowel habits Blood in StoolHistory of Present Illness:17 years old - [place] male with multiple psychiatric problems, lives in a prison, referred to me to be evaluatedfor rectal bleeding, patient reports feeling it to show protrudingout of the anal area after straining for [...] History No Knowledge Of Family HistoryReview of Systems:Allergic/Immunologic: Denies strong allergic reactions or urticaria, HIV exposure, Immune Deficiency, persistentinfections.Cardiovascular: Denies chest pain, dyspnea with exercise, irregular heart beat, orthopnea, palpitations,peripheraledema, syncope.Constitutional: Denies fatigue, fever, loss of appetite, malaise, sweats, weight gain, Arthritis, weight loss,exhaustion, chills.ENMT: Denies difficulty swallowing, dizziness, ear pain, nasal obstruction, nose bleeds, sore throat, eardischarge, frequent infections, hearing loss, highpitched ringing, hoarseness, nasal discharge.Endocrine: Denies cold intolerance, excessive eating, excessive thirst, excessive urination, hair loss, heatintolerance.Eyes: Denies double vision, loss of vision, photophobia, blurred vision, pain, wearing glasses/contacts.Gastrointestinal: Complains ofblack stools, bloating, blood in stools, change in bowel habits,constipation, diarrhea, rectal bleeding, rectal urgency, stool incontinence, stomachPrinted on 04/10/2018 Rj Colbert, 74532, 2000 Page 1 of 4Printed on 04/10/2018 Rj Colbert, 35988, 1998cramps, straining. Denies abdominalpain, abdominal swelling, gas, heartburn, jaundice,nausea, vomiting.Genitourinary: Denies dark urine, decrease in urine flow, dysuria, frequent urinary infections, frequenturination, hematuria, impote nce, nocturia, urethral discharge or incontinence, sexual difficulty,sexual transmitted diseases, kidney disease, kidney stones, pain with urination.Hematologic/Lymphatic: Denies bleeding gums or palpable lymph nodes, easy bruising, prolonged bleeding, swollenglands.Integumentary: Denies allergies,dryness, hives, itching, jaundice, lesions, rashes.Musculoskeletal: Denies arthritis, [...] of breath withexercise, wheezing, coughing up blood.Vital Signs:BP(mmHg)Pulse(ppm)Rhythm Weight (lbs/oz) Resp/min Gabd888/68 82 Regular 191 / 12 98.3 (F)Physical Exam:Constitutional:Appearance: well developed, well nourished, normal habitus, no deformities, in no acute distress..Skin:Inspection: no rashes, ulcers, icterus or other lesions; no clubbing or telangiectasias..Palpation: no induration or subcutaneos nodules..Eyes:Conjunctivae/lids: normal conjunctivae and lids..Pupils/irises: symmetrical, normoreactive to light, normal accommodation and size..ENMT:Hearing: within normal limits.Lips/teeth/gums: normal oral mucosa,lips and gums; good dentition.Neck:Neck: normal motion, central trachea.Respiratory:Percussion: thorax normoresonant.Auscultation: normal breath sounds; no rubs, wheezes, rale or ronchi.Cardiovascular:Auscultation: normal rhythm, S1 and S2; no rubs, murmurs or gallop.Peripheral: no edema, varicocities or cyanosis..Gastrointestinal/Abdomen:Abdomen: normal consistency and bowel jonathan nds; no tenderness or masses..Liver/Spleen: normal size and consistency, not palpable.Hernias: no hernias appreciated.Rectal: deferred.Musculoskeletal:Gait/station: normal gait and station.Digits/nails: no clubbing, cyanosis, petechiae or other inflammatory conditions.Psychiatric:Judgment/insight: within normal limits.Orientation: oriented to time, space and person.Memory: within normal limits for recent and remote events.Mood and affect: no evidence of depression, anxiety or agitation.Impressions: Rectal hemorrhageConstipationPlan: [facility].Printed on 04/10/2018 Rj Colbert, 83494, 2000 Page 2 of 4Printed on 04/10/2018 [facility] Cent[facility] [place], [address], 2000Risk & Medical Necessity: Diagnosis and management options are Extensive. The amount of data reviewedand/or ordered is Moderate. The level of risk is Moderate.Colin Shirley MD Jamieanjalitima [place], 17[address], 2000 Page 3 of 4Printed on 04/10/2018 [facility] Cent[facility] [place], [address], 2000Printed on 04/10/2018 [facility] [place], [address], 2000 Page 4 of 4Printed on 04/10/2018 [facility] [place], [address], 2000no changeNoSouthern Ohio Medical CenterComment on above:Result Comment: Electronically Signed By: Casper GAUTAM, Colin\.br\Date and Time Signed: 04/17/18 13:15 EDTInpatient Patient Summaryon [id number] Patient SummaryUniversity Hospitals Health SystemClinical Discharge InstructionsPERSON INFORMATION Name: ELIN COLBERTN: [birth year] [facility]#:[id number] PHYSICIANS Admitting Physician: [facility]bi [facility] Physician: Colin Shirley MD PCP: Murphy WEISS MD Diagnosis: Rectal prolapse Comment: PATIENT EDUCATION INF ORMATIONInstructions:Medication Leaflets:Follow up:With: Address: When: [facility], [address] [phone] Business (1) Within 1 to 2 weeks MEDICATION LISTComment:[facility]itan HospitalMain OR PACU I Recordon [id number] OR PACU I RecordPACU Phase I Document Type FT Summary Primary Physician: Colin Shirley MD Finalized Date/Time: 04/17/18 14:14:33 Pt. Name: RJ COLBERT /Sex: 2000 Male Med Rec #: [id number] Physician: Colin Shirley MD Financial #: [id number] Pt. Type: O Room/Bed: / Admit/Disch: 04/17/18 [...] plan of care The patient's right to privacyis maintained The patient's value system, lifestyle, ethnicity, [...] Signatures Signed By: Essie Guzman RN 04/17/18 14:14NoSouthern [facility] Medical CenterMain OR Preoperative Recordon [id number] OR Preoperative RecordHolding Area Document Type FT Summary Primary Physician: Colin Shirley MD Finalized Date/Time: 04/17/18 09:56:12 Pt. Name: RJ COLBERT/Sex: 2000 Male Med Rec #: [id number] Physician: Colin Shirley MD Financial #: [id number] Pt. Type: O Room/Bed: / Admit/Disch: 04/17/18 09:21:54 - Institution: Case Times Holding FT Pre-Care Text: Verifies consent for planned procedure, identifies individual values and wishes concerning care, includes family members in perioperative teaching Secures patient's records' belongings, and valuables, maintains patient's dignity andprivacy, and maintains patient confidentiality Entry 1 In Holding 04/17/18 09:30:00 Outcomes Met? Yes Last Modified By: Viki James RN 04/17/18 09:52:43 Post-Care Text: The patient participates in d ecisions affecting his or her perioperative plan of [...] Signatures Signed By: Viki James RN 04/17/18 09:56[facility]itan HospitalPatient Education - Texton 95-52-1796Fsjtgtp Education - [facility] HospitalCoding Summary.on 41-67-9840Hguzht Summary.CODING DATE: 04/02/2018 FINAL [facility] STATUS: Home (Routine DC) PAYOR: Medicaid EAPG DESCRIPTION 0390 LEVEL I PATHOLOGY 0490 INCIDENTAL TO MEDICAL, SIGNIFICANT PROCEDURE OR THERAPY VISIT 0496 MINOR PHARMACOTHERAPY 0133 PROCTOSIGMOIDOSCOPY WITH EXCISION OR BIOPSY 0380 ANESTHESIA ADMIT DX: REASON FOR VISIT DX: K62.5 Hemorrhage of anus and rectum FINAL DX: PRINCIPAL: K62.6Ulcer of anus and rectum SECONDARY: K62.5 Hemorrhage of anus and rectum Z53.8 Procedure and treatment not carried out for other reasons PYMT PROC EAPG STAT DESCRIPTION DOCTOR NAME DATE 76002 0133 Sigmoidoscopy, flexible; Colin Shirley MD 03/30/2018 with biopsy, single or multiple 74 Discontinued [facility] Procedure After Administration of Anesthe 95147 Anesthesia for lower Colin Shirley MD 03/30/2018 intestinal endoscopic procedures, endoscope introduceddistal to duodenum; not otherwise specified NOTE: The code number assigned matches the documented diagnosis and / or procedure in the patient's chart. However, the narrative phrase printed from the coding software may appear abbreviated, or result in slightly different terminology. Coded By: Sary Little Date Saved: 04/02/2018 04:16 [facility] HospitalProgress Note-Physicianon 83-59-1207Vdatfqqv Note-PhysicianPatient: RJ COLBERT Age: 17 years Sex: Male [...] EDT, 50 hour(s), Total volume (mL): 1,000Documented MedicationsDocumentedColace: 100 mg, Oral, Daily, Refills(s) 0, Constipationbenztropine: [...] Cardiovascular: Regular rhythm. Neurologic: Alert, Oriented. Plan [place] [employer] Anesthesiologists (ASA) physical status classification: Class II. Anesthetic Preoperative Plan Anesthesia: General. . Anesthetic plan, risks, benefits, and alternatives discussed with the patient and/or family. Communication: face to face with (patient 5 minutes, Patient educated on smoking cesstation).[facility] HospitalComment on above:Result Comment: Electronically Signed By: Quincy Ojeda Jr, DO\alin\Date and Time Signed: 04/01/18 07:53 EDTHistory and Physical on 23-43-4387Wrqhcij and PhysicalDate: 03/10/2018 2:15 PMPatient Name: Rj ColbertAccount #: [id number]: MaleDOB (age): 2000 (17)Provider: Annie Benton Complaint: Change in Bowel habits Blood in StoolHistory of Present Illness:17 years old -[place] male with multiple psychiatric problems, lives in a prison, referred to me to be evaluatedfor rectal bleeding, patient reports feeling it to show protrudingout of the anal area after straining for bowel movement,typically he pushes it back in, he reports s poradic rectal bleeding, no nausea or vomiting, no [...] History No Knowledge Of Family HistoryReview of Systems:Allergic/Immunologic: Denies strong allergic reactions or urticaria, HIV exposure, Immune Deficiency, persistentinfections.Cardiovascular: Denies chest pain, dyspnea with exercise, irregular heart beat, orthopnea, palpitations,peripheraledema, syncope.Constitutional: Denies fatigue, fever, loss of appetite, malaise, sweats, weight gain, Arthritis, weight loss,exhaustion, chills.ENMT: Denies difficulty swallowing, dizziness, ear pain, nasal obstruction, nose bleeds, sore throat, eardischarge, frequent infections, hearing loss, highpitched ringing, hoarseness, nasal discharge.Endocrine: Denies cold intolerance, excessive eating, excessive thirst, excessive urination, hair loss, heatintolerance.Eyes: Denies double vision, loss of vision, photophobia, blurred vision, pain, wearing glasses/contacts.Gastrointestinal: Complains ofblack stools, bloating, blood in stools, change in bowel habits,constipation, diarrhea, rectal bleeding, rectal urgency, stool incontinence, stomachPrinted on 03/26/2018 Rj Colbert, 99886, 2000 Page 1 of 4Printed on 03/26/2018 Rj Colbert, 00855, 1998cramps, straining. Denies abdominalpain, abdominal swelling, gas, heartburn, jaundice,nausea, vomiting.Genitourinary: Denies dark urine, decrease in urine flow, dysuria, frequent urinary infections, frequenturination, hematuria, impote nce, nocturia, urethral discharge or incontinence, sexual difficulty,sexual transmitted diseases, kidney disease, kidney stones, pain with urination.Hematologic/Lymphatic: Denies bleeding gums or palpable lymph nodes, easy bruising, prolonged bleeding, swollenglands.Integumentary: Denies allergies,dryness, hives, itching, jaundice, lesions, rashes.Musculoskeletal: Denies arthritis, [...] of breath withexercise, wheezing, coughing up blood.Vital Signs:BP(mmHg)Pulse(ppm)Rhythm Weight (lbs/oz) Resp/min Zher154/68 82 Regular 191 / 12 98.3 (F)Physical Exam:Constitutional:Appearance: well developed, well nourished, normal habitus, no deformities, in no acute distress..Skin:Inspection: no rashes, ulcers, icterus or other lesions; no clubbing or telangiectasias..Palpation: no induration or subcutaneos nodules..Eyes:Conjunctivae/lids: normal conjunctivae and lids..Pupils/irises: symmetrical, normoreactive to light, normal accommodation and size..ENMT:Hearing: within normal limits.Lips/teeth/gums: normal oral mucosa,lips and gums; good dentition.Neck:Neck: normal motion, central trachea.Respiratory:Percussion: thorax normoresonant.Auscultation: normal breath sounds; no rubs, wheezes, rale or ronchi.Cardiovascular:Auscultation: normal rhythm, S1 and S2; no rubs, murmurs or gallop.Peripheral: no edema, varicocities or cyanosis..Gastrointestinal/Abdomen:Abdomen: normal consistency and bowel jonathan nds; no tenderness or masses..Liver/Spleen: normal size and consistency, not palpable.Hernias: no hernias appreciated.Rectal: deferred.Musculoskeletal:Gait/station: normal gait and station.Digits/nails: no clubbing, cyanosis, petechiae or other inflammatory conditions.Psychiatric:Judgment/insight: within normal limits.Orientation: oriented to time, space and person.Memory: within normal limits for recent and remote events.Mood and affect: no evidence of depression, anxiety or agitation.Impressions: Rectal hemorrhageConstipationPlan: [facility].Printed on 03/26/2018 Rj Colbert 51959, 2000 Page 2 of 4Printed on 03/26/2018 Rj Colbert 03312, 1998Risk & Medical Necessity: Diagnosis and management options are Extensive. The amount of data reviewedand/or ordered is Moderate. The level of risk is Moderate.Colin Shirley MD Rj Colbert, 48242, 2000 Page 3 of 4Printed on 03/26/2018 Rj Colbert, 93987, 1998Printed on 03/26/2018 Rj Colbert, 89672, 2000 Page 4 of 4Printed on 03/26/2018 Rj Colbert, 12560, 2000No [facility] AdministrationComment on above:Result Comment: Electronically Signed By: Colin Shirley MD\.br\Date and Time Signed: 03/30/18 10:52 EDTInpatient Patient Summaryon [id number] Patient SummaryUniversity Hospitals Health SystemClinical Discharge InstructionsPERSON INFORMATION Name: RACHID COLBERTRN: 30[birth year]16-48 PHYSICIANS Admitting Physician: Debbi Shirley MDending Physician: Colin Shirley MD PCP: Murphy WEISS MD Diagnosis: Internal hemorrhoids Comment: PATIENT EDUCATION INFORMATIONInstructions:Medication Leaflets:Follow up:With: Address: [facility], [address] [place], [place] [phone] [facility] (5) Within 1 to 2 weeks MEDICATION LISTComment:[facility] HospitalMain OR Intraoperative Recordon [id number] OR Intraoperative RecordIntraOp Document Type FT Summary Primary Physician: Colin Shirley MD Finalized Date/Time: 03/30/18 11:37:17 Pt. Name: RJ COLBERT /Sex: 2000 Male Med Rec #: [id number] Physician: Colin Shirley MD Financial #: [id number] Pt. Type: O Room/Bed: / Admit/Disch: 03/30/18 09:32:43 - Institution: Case Times FT Entry 1 Patient Times In Room 03/30/18 10:56:00 Out Room 03/30/18 11:13:00 Procedure Times Start 03/30/18 10:59:00 Stop 03/30/18 11:09:00 Anesthesia Times Start03/30/18 10:56:00 Stop 03/30/18 11:13:00 Last Modified By: Addie Oreilly CST 03/30/18 11:14:43 Ge neral Comments: 03/30/2018 Chart opened to review and send charges Marika Pineda MORTGAGE LOAN COUNSELOR Case Attendance FT Entry 1 Entry 2 Entry 3 Case Attendee Rusty Fagan DO, Quincy Miller RN, Francy Boyd CST, Tori Role Performed Anesthesiologist of Powder Mixer - Primary Scrub - Primary Record Time In 03/30/18 10:56:00 03/30/18 10:56:00 03/30/18 10:56:00 Time Out 03/30/18 11:13:00 03/30/18 11:13:00 03/30/18 11:13:00 Procedure COLONOSCOPY(.) COLONOSCOPY(.) COLONOSCOPY(.) Comments Last Modified By: Paul TREVINO, Francy Knapp, Francy Miller RN, Francy Gregory 03/30/18 11:14:48 03/30/18 11:14:48 03/30/18 11:14:48 Entry 4 Entry 5 Case Attendee Casper GAUTAM, [facility] Role Performed Surgeon - Primary Scrub - Other Time In 03/30/18 10:56:00 03/30/18 10:56:00 Time Out 03/30/18 11:13:00 03/30/18 11:13:00 Procedure COLONOSCOPY(.) COLONOSCOPY(.) Comments Orienting Last Modified By: Paul TREVINO, Francy Miller RN, Francy Gregory 03/30/18 11:14:48 03/30/18 11:14:48 Perioperative Protocols FT Pre-Care Text: Implementsprotective measures prior to operative or invasive procedure, confirms identity before the operative or invasive procedure, verifies operative procedure, surgical site, and laterality Entry 1 Procedure(s) COLONOSCOPY(.) Patient Identity Birthday, ID Band Verified (select at Check, Patient least 2):Participation Consents / H and P Anesthesia Consent, Operative Site N/A Verified HandP, Surgery/Procedure Marking Verified Consent Surgical Site Yes Laterality Verified n/a Verified Procedure Verified Yes Correct Patient Yes Position Verified Availability Equipment, Medication Prep Dry n/a Verified(If Applicable) PreOp Antibiotic No Time Out Rusty Fagan DO, Quincy A, Given Participants Francy Miller RN, Casper GAUTAM, Colin [facility], Oliver Bess CST, Molly Time Out Complete 03/30/18 10:57:00 Outcomes Met? Yes Last Modified By: Francy Miller RN 03/30/18 10:58:28 Post-Care Text: The patient is free from signs and symptoms of injury caused by extraneous objects Allergy Information FTPre-Care Text: Verifies allergies Entry 1 Allergies Reviewed? Yes Allergies Reviewed Self/Patient With Outcomes Met? Yes Last Modified By: Francy Miller RN 03/30/18 07:35:41 Post- Care Text: The patient received appropriate medication(s) safely [...] FT Pre-Care Text: Classifies surgical wound, implements asept ic technique, initiates traffic control Entry 1 Case Information OR ENDO 1 FT Case Level Level 2 Wound Class 2 - Clean-Contaminated Specialty Gastroenterology ASA Class 2 Preop Diagnosis RECTAL HEMORRHAGE, Postop Same As Preop No CONSTIPATION Postop Diagnosis Rectal ulcers, poor Outcomes Met? Yes bowel prep. Last Modified By: Francy Miller RN 03/30/18 11:10:27 Post-Care Text: The patient is freefrom signs and symptoms of infection Skin Assessment (Pre Procedure) FT Pre-Care Text: Implements protective measures to prevent skin/ tissue injury due to thermal or mechanical sources Evaluates forsigns and symptoms of physical injury to skin and tissue Entry 1 Skin Integrity Intact, [place], Warm,and Skin Abnormality No Dry Outcomes Met? Yes Last Modified By: Francy Miller RN 03/30/18 07:36:08Post-Care Text: The patient is free from signs [...] RN Patient Status Stable Skin. Condition Intact, [place], Warm, and Dry Airway Maintenance Oxygen inUse? No Airway Device N/A Outcomes Met? Yes Last Modified By: Francy Miller RN 03/30/18 07:37:17 Post-Care Text: The patient is free from signs and symptoms of injury related to transfer/transport General Comments: Report given to PACU,RN./RICHARD,assembler camper Administration FT Pre-Care Text: Verifiesallergies, administers prescribed medications and solutions, administers prescribed [...] RN 03/30/18 11:14 Addie Oreilly CST 03/30/18 11:37[facility] I Recordon 26-22-5590Wbic OR PACU I RecordPACU Phase I Document Type FT Summary Primary Physician: Colin Shirley MD Finalized Date/Time: 03/30/18 11:29:28 Pt. Name: RJ COLBERT/Sex: 2000 Male Med Rec #: [id number] Physician: Colin Shirley MD Financial #: [id number] Pt. Type: O Room/Bed: / Admit/Disch: 03/30/18 09:32:43 - Institution: Case Times PACU I FT Pre-Care Text: Identifies barriers to communication and implements measures to provide psychological support Develops individualized plan of care, and ensures continuity of care Maintains patient's dignity and privacy, and maintains patient confidentiality Identifies and reports philosophical, cultural, and spiritual beliefs and values Identifiesindividual values and wishes concerning care Implements aseptic [...] RN 03/30/18 11:29:16 Post-Care Text: The patient de monstrates knowledge of the expected response to the operative or invasive procedure The patient's care is consistent with the individualized perioperative plan of care The patient's right to privacyis maintained The patient's value system, lifestyle, ethnicity, [...] Signatures Signed By: Essie Guzman RN 03/30/18 11:29NoSouthern [facility] CenterMain OR Preoperative Recordon 06-12-6498Njff OR Preoperative RecordHolding Area Document Type FT Summary Primary Physician: Colin Shirley MD Finalized Date/Time: 03/30/18 10:16:59 Pt. Name: RJ COLBERT/Sex: 2000 Male Med Rec #: [id number] Physician: Colin Shirley MD Financial #: [id number] Pt. Type: O Room/Bed: / Admit/Disch: 03/30/18 09:32:43 - Institution: Case Times Holding FT Pre-Care Text: Verifies consent for planned procedure, identifies individual values and wishes concerning care, includes family members in perioperative teaching Secures patient's records' belongings, and valuables, maintains patient's dignity andprivacy, and maintains patient confidentiality Entry 1 In [...] Signatures Signed By: Kathleen Gómez RN 03/30/18 10:16NoSouthern [facility] Medical CenterPatient Education - Texton 69-33-3929Obndjoy Education - TextSamaritan HospitalProgress Note-Physicianon 04-51-9686Kqorylnv Note-PhysicianPatient: RJ COLBERT Age: 17 years Sex: Male : 2000 Associated Diagnoses: None Author: Quincy Ojeda Jr, DO Postoperative Information Post Operative Note: PostAnesthesia Care Unit. Anesthetic utilized: Monitored anesthesia care. [...] 109 (MAR 30 11:00) 127 (MAR 30 10:05)DBP83 (MAR 30 11:25) 71 (MAR 30 11:00) 83 (MAR 30 10:05)SpO2 99 (MAR 30 11:30) 97 (MAR 30 11:25) 100 (J UN 04 11:00) Documented vital signs General: Alert and oriented, No acute distress. Respiratory: Lungs are clear to auscultation. Cardiovascular: Normal rate, Regular rhythm. Neurologic: Normal sensory. Review / Management Condition: Stable. Assessment Anesthetic outcome No anesthetic complicationsnoted. Adequate pain relief. TOLERATING PO INTAKE. voiding w/o diff.. No Complaint of nausea and vomiting. Plan Transfer/ Discharge: Condition stable.[facility] HospitalComment on above:Result Comment: Electronically Signed By: Quincy Ojeda Jr, DO.karen\Date and Time Signed: 03/30/18 11:55 EDT Vital Signs Date TimeVital SignValuePerforming GebpnloabTpjtrsbw00-73-4407 10:12-0400Body fznzpy239.8 cmPHYSICIAN [facility]09[facility]19[facility] 10:12-0400Body mass index (BMI) [Ratio]29.9 kg/g8FKNGEWYYC [facility]09-19-2025 10:12-0400Body luluwxchoqg24.3 [degF]PHYSICIAN [facility]09-19-2025 10:12-0400Body nqyxxl24.85 kgPHYSICIAN [facility]09-19-2025 10:12-0400 Diastolic blood mm[Hg]PHYSICIAN [facility]09-19-2025 10:12-0400Heart rate89 /minPHYSICIAN [facility]09-19-2025 10:12-0400Respiratory rate16 /minPHYSICIAN [facility]09-19-2025 10:12-0646CfH1% (BldA) [Mass fraction]99 %PHYSICIAN [facility]09-19-2025 10:12-0400Systolic blood bkeibsck344 mm[Hg]PHYSICIAN [facility]07-01-2025 11:31-0400Body ymkvtm510.8 cmLaila HEREDIA Work Phone: [facility]07-01-2025 11:31-0400Body mass index (BMI) [Ratio]29.84 kg/l9Zdacpei Gonzalez REVERSING MILL ROLLER-DIAGNOSTIC TECHNOLOGIST Work Phone: [facility]07-01-2025 11:31-0400Body fccugr72.35 kgLaila Gonzalez REVERSING MILL ROLLER-DIAGNOSTIC TECHNOLOGIST Work Phone: [facility]05-19-2025 11:14-0400Body .8 cmLaila Gonzalez REVERSING MILL ROLLER-DIAGNOSTIC TECHNOLOGIST Work Phone: [facility]05-19-2025 11:14-0400Body mass index (BMI) [Ratio]30.42 kg/p5GariofeLaila Gonzalez REVERSING MILL ROLLER-DIAGNOSTIC TECHNOLOGIST Work Phone: [facility]05-19-2025 11:14-0400Body .16 kgLaila Gonzalez REVERSING MILL ROLLER-DIAGNOSTIC TECHNOLOGIST Work Phone: [facility]03-14-2025 10:22-0400Body .8 cmLaila Gonzalez REVERSING MILL ROLLER-HUSAM Work Phone: [phone]03-14-2025 10:22-0400Body mass index (BMI) [Ratio]30.13 kg/f4DnbdxavLaila Gonzalez REVERSING MILL ROLLER-HUSAM Work Phone: [facility]03-14-2025 10:22-0400Body tzwbon06.25 kgLaila Gonzalez REVERSING MILL ROLLER-DIAGNOSTIC TECHNOLOGIST Work Phone: [facility]09-18-2024 09:26-0400Body qpzrky006.8 cmBenson Weiss MD Work Phone: [facility] HospitalMclptzmjri77-56-3156 09:26-0400Body mass index (BMI) [Ratio]28.84 kg/m2Benson Weiss MD Work Phone: noBarn[facility] HospitalRntuypftpy22-62-4241 09:26-0400Body temperature 97.5 [degF]Benson Weiss MD Work Phone: noBarn[facility] HospitalBnoppaxbde84-90-8154 09:26-0400Body .17 kgBenson Weiss MD Work Phone: [facility] HospitalYmqrfpopgu03-23-9407 09:26-0400Diastolic blood uadspiyo26 mm[Hg]Benson Weiss MD Work Phone: [facility] HospitalTtgvgfuaos28-87-9606 09:26-0400Heart rate88 /min Benson Weiss MD Work Phone: [facility] HospitalNyghtxyoat56-76-2283 09:26-0400Respiratory rate20 /minBenson Weiss MD Work Phone: [facility] HospitalFjjynypcdb30-13-8859 09:26-3171FhT2% (BldA) [Mass fraction]99 %Benson Weiss MD Work Phone: [facility] HospitalJnahhvclaj30-23-2274 09:26-0400Systolic blood hetksuwo767 mm[Hg]Benson Weiss MD Work Phone: [facility] HospitalWidmxivdsv18-12-0326 14:24-0400Body .8 cmPlory Kuo MD Work Phone: [facility]04-01-2024 14:24-0400Body mass index (BMI) [Ratio]25.75 kg/o6XfljkReynold Kuo MD Work Phone: [facility]04-01-2024 14:24-0400Body ybyroo51.4 kgReynold Kuo MD Work Phone: [facility]06-02-2022 11:11-0400Body .3 cmArnold Genao MD Work Phone: [facility]06-02-2022 11:11-0400Body dwepsm47.27 kgArnold Genao MD Work Phone: [facility]06-02-2022 11:11-0400Diastolic blood bkwojcfr55 mm[Hg]Arnold Genao MD Work Phone: [facility]06-02-2022 11:11-0400Heart rate80 /min Arnold Genao MD Work Phone: [facility]06-02-2022 11:3458QzP6% (BldA) [Mass fraction]100 %Arnold Genao MD Work Phone: [facility]06-02-2022 11:Systolic blood cphodpyh056 mm[Hg]Arnold Genao MD Work Phone: [facility] Encounters Encounter DateEncounter TypeCare ProviderFacilityStart: 08-30-2025 End: 29-47-9534gmdeczxiovRZRZUZKSA ELIJAHFacility:[facility] Start: 08-26-2025 End: 93-35-8991bumqupmrclNZZSA L HYKES JRFacility:[facility] Start: 07-26-2025 End: 83-73-5858ljpmjaccjlDZHBEXL BANFacility:[facility]art: 07-15-2025 End: 05-04-5604ogbzfagngkGYCNARNEH [facility] Work Phone: Start: 07-15-2025 End: 74-03-8054Nsempyh encounter procedureBenson Weiss MD-[facility] Work Phone: Start: 73-56-6870Jtx-patient / Non-visitOutside Provider-[facility] Work Phone: Start: 06-15-2025 End: 25-60-9776Hgcswjohd encounterBenson Weiss MD Work Phone: [facility] FMStart: 06-09-2025 End: 89-39-6109Ddpxfmnfr Result EncounterGeneric External Data ProviderNOMS External Department UnsolicitedStart: 06-09-2025 End: 44-70-4385Ozfjhuqfg Result EncounterGeneric External Data ProviderNOMS External Department UnsolicitedStart: 05-19-2025 End: 76-94-3860Acshtxvrm encounterBenson Weiss MD Work Phone: [facility] FMComment on above:Med RefillStart: 05-11-2025 End: 61-89-5100Nukvuulys Result EncounterGeneric External Data ProviderNOMS External Department UnsolicitedStart: 05-11-2025 End: 02-23-9792Vrhoxdhcb Result EncounterGeneric External Data ProviderNOMS External Department UnsolicitedStart: 05-11-2025 End: 05-85-7670Okojeq-up encounterMicmustapha Galo DO Work Phone: [facility] - SurgeryComment on above:Surgical PathologyProctitisStart: 05-02-2025 End: 09-91-5091Xyahywoxja and management of inpatientVERONICA IYEROhioHealth Marion General Hospitaltart: 04-26-2025 End: 07-54-6345vzuigfyetiPts Pat Phone Call Provider [address] [place] [address] - Pre AdmitStart: 04-26-2025 End: 74-51-9382Axsyou outpatient visit 15 minutesLaila Gonzalez REVERSING MILL ROLLER-DIAGNOSTIC TECHNOLOGIST Work Phone: [facility] SurgeryComment on above: Rectal bleeding (Primary Dx); Chronic constipation; Straining during bowel movementsStart: 04-26-2025 End: 94-59-1216hijnvsdrhnPZNLKSAInland Northwest [facility]al [facility] Start: 04-04-2025 End: 49-20-3445Dnkvyklos encounterLauren Venabelardo [facility] SurgeryStart: 03-30-2025 End: 43-13-8218Ptrpyqhdf Result EncounterGeneric External Data ProviderNOMS External Department UnsolicitedStart: 03-30-2025 End: 88-71-4897Vnjuvqodd Result EncounterGeneric External Data ProviderNOMS External Department UnsolicitedStart: 03-24-2025 End: 42-52-8940Npuytqkwcm and management of inpatientVERONICA WANGSterling Regional MedCenter HospitalStart: 03-17-2025 End: 02-71-1098nbiefaxmsgIKOCKettering Health Main Campustart: 03-14-2025 End: 01-30-9024Ykhtkt outpatient visit 15 minutesLaila Gonzalez REVERSING MILL ROLLER-DIAGNOSTIC TECHNOLOGIST Work Phone: [facility] SurgeryComment on above: Rectal bleeding (Primary Dx); Chronic constipation; Straining during bowel movementsStart: 03-14-2025 End: 57-41-1897dxvqiyzrpeXUJPFLRInland Northwest Behavioral [facility] Start: 03-01-2025 End: 79-83-0536Ejqpjqdpm Result EncounterGeneric External Data ProviderNOMS External Department UnsolicitedStart: 03-01-2025 End: 54-14-2345Zbqrfjavl Result EncounterGeneric External Data ProviderNOMS External Department UnsolicitedStart: 02-02-2025 End: 69-37-8873Vyeogplqr Result EncounterGeneric External Data ProviderNOMS External Department UnsolicitedStart: 02-02-2025 End: 08-93-1321Etzlwfvky Result EncounterGeneric External Data ProviderNOMS External Department UnsolicitedStart: 40-70-9337vnnyrgnaosBdeowmbdijw Abdelaziz [facility]: 01-12-2025 End: 95-48-6568hzkzxvirdjDNYY NADERERNot AvailableStart: 01-07-2025 End: 31-85-8736Bocnmj outpatient new 30 minutesSan[facility] Gonzalez REVERSING MILL ROLLER-DIAGNOSTIC TECHNOLOGIST Work Phone: [facility] SurgeryComment on above: Rectal bleeding (Primary Dx); Chronic constipation; Straining during bowel movementsStart: 01-07-2025 End: 00-70-5879quvhcszxmpAVVAFTJInland Northwest [facility] Start: 12-08-2024 End: 44-05-8093Tltoxhrhw Result EncounterGeneric External Data ProviderNOMS External Department UnsolicitedStart: 12-08-2024 End: 47-58-3586Bscstibhq Result EncounterGeneric External Data ProviderNOMS External Department UnsolicitedStart: 11-08-2024 End: 43-39-5608Wmbvmnbpk Result EncounterGeneric External Data ProviderNOMS External Department UnsolicitedStart: 11-08-2024 End: 98-92-4670Ifhcwttbv Result EncounterGeneric External Data ProviderNOMS External Department UnsolicitedStart: 10-14-2024 End: 90-32-3740Tfjdynewl Result EncounterGeneric External Data ProviderNOMS External Department UnsolicitedStart: 10-14-2024 End: 13-12-7419Cthgxbctr Result EncounterGeneric External Data ProviderNOMS External Department UnsolicitedStart: 09-13-2024 End: 27-47-8797Arpkyozjt Result EncounterGeneric External Data ProviderNOMS External Department UnsolicitedStart: 09-13-2024 End: 84-59-1991Kkzspyock Result EncounterGeneric External Data ProviderNOMS External Department UnsolicitedStart: 08-18-2024 End: 57-77-5789Hflirspzo Result EncounterGeneric External Data ProviderNOMS External Department UnsolicitedStart: 08-18-2024 End: 23-38-0913Khspiqhhg Result EncounterGeneric External Data ProviderNOMS External Department UnsolicitedStart: 07-23-2024 End: 70-78-4422Lnubhgupd Result EncounterGeneric External Data ProviderNOMS External Department UnsolicitedStart: 07-23-2024 End: 37-19-3982Sjidorryb Result EncounterGeneric External Data ProviderNOMS External Department UnsolicitedStart: 07-14-2024 End: 20-38-8157Kuhzrr flowsJosefa Weiss MD Work Phone: [facility] FMStart: 07-14-2024 End: 24-54-7374Cozcld Wesly Weiss MD Work Phone: [facility] FMStart: 07-14-2024 End: 94-88-9461Hfqdih outpatient visit 15 minutesBenson Weiss MD Work Phone: [facility] FMComment on above:Seasonal allergic rhinitis due to pollen (Primary Dx); Chronic constipation; Chronic schizophrenia (CMS/HCC)Start: 07-14-2024 End: 94-65-7564ildwigmrqyEWFO NADERERNot AvailableStart: 01-26-2024 End: 96-53-1227pfhuvsjbulIVLIN F KLEINSelect Medical [facility] Clinic [facility], Beachwoodca [facility] HospitalStart: 01-26-2024 End: 76-42-0133Wicehs follow up visit related to original Stefan Kuo MD Work Phone: [facility] Colorectal SurgeryComment on above:Rectal prolapse (Primary Dx)Start: 01-10-2024 End: 29-15-4928Ttmvrtpbql and management of inpatientAMRITA MIGUEL ÁNGEL PAUL [facility] Hospitaltart: 01-09-2024 End: 51-35-4086Tjrmhyougi and management of inpatientMARC NADERERProMedica Morrow County Hospitaltart: 97-43-2383neplxzdpzmMV DOCTOR MISCFacility:C6Jopnx: 02-19-2023 End: 85-64-3239oacmobtxwuLR DOCTOR MISCFacility:Q1Frlmc: 01-15-2023 End: 74-38-3438rqapzpaxfxYA DOCTOR MISCFacility:N0Kfgiw: 12-20-2022 End: 34-20-7063wgxukrgzwmIT DOCTOR MISCFacility:U1Rfyrc: 11-20-2022 End: 52-49-3884xecrakqqzaBF DOCTOR MISCFacility:R0Lizre: 10-11-2022 End: 06-31-3585tnoczspqdgFX DOCTOR MISCFacility:E0Smefk: 09-18-2022 End: 65-06-7890gjdlrvttkiCJ DOCTOR MISCFacility:Q1Jrdll: 08-21-2022 End: 39-48-3051sbdxeptsytVX DOCTOR MISCFacility:M0Typnd: 08-02-2022 End: 77-00-5488diyfkkifkaOM DOCTOR MISCFacility:P4Hgads: 06-17-2022 End: 48-16-6936dlyficzsjtUR DOCTOR MISCFacility:M4Qrqji: 05-15-2022 End: 38-14-7937ztnlcijbnrUP DOCTOR MISCFacility:N5Elzcj: 04-15-2022 End: 12-70-4932nyhqzhrgxuNG DOCTOR MISCFacility:O4Krqic: 23-62-3791Ufohxgtsp encounterArnold Genao MD Work Phone: Colorectal SurgeryComment on above:Opened In Error (no documentation-error)Medication Problem (magnesium carbonate? vs? CALM)Start: 03-28-2022 End: 64-35-7541Bzcclcw encounter procedureArnold Genao MD Work Phone: Colorectal SurgeryComment on above:Hematochezia (Primary Dx)Start: 04-17-2018 End: 71-46-7729YnwzalczuuOinoj SalamFacility:FTMCStart: 03-30-2018 End: 21-84-7509AlzjpfczxkItxht SalamFacility:[facility] Procedures DateProcedureProcedure DetailPerforming ClinicianStart: 40-84-2144MDU CBC WITH AUTO DIFFGeneric External Data ProviderStart: 74-36-1063TFT CBC WITH AUTO DIFF Generic External Data ProviderStart: 83-35-5166GLB CBC WITH AUTO DIFFGeneric External Data ProviderStart: 92-30-5992Dnjvwu-up visitFollow-upLAILA GONZALEZ Start: 75-52-7307CVF CBC WITH AUTO DIFFGeneric External Data ProviderStart: 71-07-2977IVL CBC WITH AUTO DIFFGeneric External Data ProviderStart: 12-08-2024 ALL CBC WITH AUTO DIFFGeneric External Data ProviderStart: 48-14-5179FBA CBC WITH AUTO DIFFGeneric External Data ProviderStart: 01-94-0379GXK CBC WITH AUTO DIFFGeneric External Data ProviderStart: 71-69-9783UVE CBC WITH AUTO DIFFGeneric External Data ProviderStart: 66-22-6285UJT CBC WITH AUTO DIFFGeneric External Data ProviderStart: 12-63-0263WUH CBC WITH AUTO DIFFGeneric External Data Provider Plan of Treatment DateCare ActivityDetailAuthorStart: 14-61-5745HBzS,Tdap and Td Vaccines (8 - Td or Tdap)DTaP,Tdap and Td Vaccines (8 - Td or Tdap)[facility] SystemStart: 08-91-2985Wflbq BMI ScreeningAdult BMI ScreeningProMedica Health SystemStart: 51-50-2970Lmrxzwg ScreeningTobacco ScreeningProMedica Health SystemStart: 05-91-4683Sufwv BMI ScreeningAdult BMI ScreeningProMedica Health SystemStart: 64-29-2864Numtgwz ScreeningTobacco ScreeningProMedica Health SystemStart: 97-08-9645Kruwd BMI ScreeningAdult BMI ScreeningProMedica Health SystemStart: 15-04-7042Kekoilr ScreeningTobacco ScreeningSelect Medical [facility]ca [facility] SystemStart: 10-74-8475Zkuxl BMI ScreeningAdult BMI ScreeningProAccess Hospital Daytonca [facility] SystemStart: 01-09-9491Dnqcvwe ScreeningTobacco ScreeningProWalker [facility] Health SystemStart: 03-19-2026Medicare Annual Wellness (AWV)Medicare Annual Wellness (AWV)[facility] HealthcareStart: 72-85-9939Oooyi BMI ScreeningAdult BMI ScreeningProAccess Hospital Daytonca Health SystemStart: 83-32-9242Tlkehzy ScreeningTobacco ScreeningSelect Medical [facility], [facility]ca [facility] SystemStart: 07-15-2025 End: 43-90-9548Asxqbwl encounter faukvpljx75/19/2025 10:00 AM EDT Office Visit [facility] [address] [place] [address] Benson Weiss MD [address] [place] [address] [facility] CLARA FMStart: 39-28-6493Xvxfxgdar [facility] HealthcareStart: 05-02-2025 End: 17-92-2678Wyqhfpnul to same day surgery ikpbya9605/02/2025 7:30 AM EDT - 05/02/2025 8:00 AM EDT Surgery [facility] [address] [place] [phone] Veronica Galo DO [address] [place] [address] COLONOSCOPY DIAGNOSTIC / SCREENING [27082 (CPT )][facility] SurgeryComment on above:COLONOSCOPY DIAGNOSTIC / SCREENING [31990 (CPT )]Start: 05-02-2025 End: 89-87-1555Helxlnxbuh hjtcwprsigcl17/07/2025 7:30 AM EDT Anesthesia Event [facility] Surgery [address] [place] [address] Timbo Ceballos, DO [address] [place] [address] [facility]: 05-02-2025 End: 25-36-5657Vaqxeeeenlt flx dx w/collj spec when pfrmdCOLONOSCOPY DIAGNOSTIC / SCREENING rectal bleeding-poor prep with first attempt 05/02/2025 7:30 AM EDT [facility]ERYStart: 74-60-3692Xgrpbwkeaf hospital visit by yucrobswe67/07/2025 7:30 AM EDT Hospital Encounter [facility] Surgery [address] [place] [address] Veronica Galo, [address] [place] [address] [facility]Start: 04-26-2025 End: 99-04-1799ykrtqqobxz73/01/2025 4:20 PM EDT Support Visit [facility] Admit [address] [place] [address] [facility] AdmitStart: 04-26-2025 End: 65-39-8983Dascysr encounter atukwierm27/01/2025 11:30 AM EDT Office Visit [facility] Surgery [address] [place] [phone] Laila Gonzalez, REVERSING MILL ROLLER-DIAGNOSTIC TECHNOLOGIST [address] [place] [address] [facility] SurgeryStart: 03-24-2025 End: 67-23-9166Xdyhnvhzn to same day surgery zruasb0103/24/2025 9:00 AM EDT - 03/24/2025 9:30 AM EDT Surgery [facility] [address] [place] [address] Veronica Galo, DO [address] [place] [address] COLONOSCOPY DIAGNOSTIC / SCREENING [81834 (CPT )][facility] HospitalComment on above:COLONOSCOPY DIAGNOSTIC / SCREENING [60610 (CPT )]Start: 03-24-2025 End: 84-69-3561Srgziujuyty flx dx w/collj spec when pfrmdCOLONOSCOPY DIAGNOSTIC / SCREENING rectal bleeding 03/24/2025 9:00 AM EDTFREMONT SURGERYStart: 07-15-7896Fqcjgsmybf hospital visit by /29/2025 9:00 AM EDT Hospital Encounter [facility] [address] [place] [phone] Veronica Galo, DO [address] [place] [address] [facility] HospitalStart: 03-17-2025 End: 56-82-3484rdfgcltnun32/22/2025 2:10 PM EDT Support Visit [facility] - Pre Admit [address] [phone] [facility] AdmitStart: 07-80-5967Kvqom BMI ScreeningAdult BMI ScreeningProAccess Hospital Daytonca [facility] SystemStart: 99-52-8455Yjsfkue ScreeningTobacco ScreeningProAccess Hospital Daytonca [facility] SystemStart: 01-12-2025 End: 05-85-4510Mffwifk encounter zlhrybeol94/19/2025 9:30 AM EDT Office Visit [facility] [address] [place] [phone] Benson Weiss MD [address] [place] [phone] [facility] FMStart: 07-14-2024 End: 72-15-0705Kxzcvmo encounter xcpkfunno16/18/2024 9:30 AM EDT Office Visit [facility] [address] [place] [phone] Benson Weiss MD [address] [place] [phone] ArrivedNOMS CWM FMComment on above:ArrivedStart: 14-33-4990TECJM-19 Vaccine ( season)COVID-19 Vaccine ( season)[facility] Start: 68-17-9189Iexxenytc vaccinationNOWA HealthcareStart: 10-81-5387GDVYY-19 Vaccine ()COVID-19 Vaccine ( season)[facility]: 06-72-7958Jdray microalbumin profileDTAP,TDAP,TD (1 - Tdap) [facility]: 11-63-0950Wgsvx BMI Follow Up PlanAdult BMI Follow Up PlanCleveland Clinic Avon Hospital SystemStart: 18-29-1599RKSMZAHDI C SCREENINGHEPATITIS C SCREENINGGuernsey Memorial Hospitaltart: 88-46-5506QGZ SCREENINGHIV SCREENINGGuernsey Memorial Hospitaltart: 90-70-8489RHXH TO ADULT TRANSITION ANNUAL ASSESSMENTPEDS TO ADULT TRANSITION ANNUAL ASSESSMENTGuernsey Memorial Hospitaltart: 36-80-5374Fatlr depression screening assessmentDEPRESSION SCREENINGGuernsey Memorial Hospitaltart: 88-29-2273EMMF TO ADULT TRANSITION INITIAL DISCUSSIONPEDS TO ADULT TRANSITION INITIAL DISCUSSION [facility]: 19-40-9939DCK VACCINE (1 - Male 2-dose series)HPV VACCINE (1 - Male 2-dose series)[facility] Hospitaltart: 46-84-9646WTHUJTEKUZMLS B: Consider based on risk (1 of 2 - Risk Bexsero 2-dose series)MENINGOCOCCAL B: Consider based on risk (1 of 2 - Risk Bexsero 2-dose series)[facility] Start: 1998Medicare Annual Wellness (AWV)Medicare Annual Wellness (AWV) [facility] Healthcare End: 87-25-8176SmhyplqokjjZeteoetsucj GI Routine Rectal bleeding 1 Occurrences starting 03/14/2025 until 03/14/2026[facility] Work Phone: Comment on above:1 Occurrences starting 03/14/2025 until 03/14/2026 Immunizations Immunization DateImmunizationNotesCare EcpimfadRqpmhmfb21-01-6071OSLTP-84, mRNA, LNP-S, PF, 30mcg/0.3mL DoseReynold Kuo MD Work Phone: [facility] HospitalIroycj27-32-8620SGNSV-44, mRNA, LNP- S, PF, 30mcg/0.3mL Chase Kuo MD Work Phone: [facility] HospitalKkxnvv78-46-8147jlztlzfmc, injectable, quadrivalent, preservative Debra Kuo MD Work Phone: [facility] HospitalOuntcu97-57-9357qhfnhysqt virus vaccine, unspecified formulationReynold Kuo MD Work Phone: [facility] HospitalSxkxab33-37-0150nagcasggn, injectable, quadrivalent, preservative freeReynold Kuo MD Work Phone: [facility]10-10-2019tetanus toxoid, reduced diphtheria toxoid, and acellular pertussis vaccine, adsorbedReynold Kuo MD Work Phone: [facility]02-06-2018tetanus toxoid, reduced diphtheria toxoid, and acellular pertussis vaccine, adsorbedReynold Kuo MD Work Phone: [facility] HospitalUvtidp18-11-9817bvzerxjnt, injectable, quadrivalent, preservative Debra Kuo MD Work Phone: [facility] HospitalTgkalg06-70-6957yznluzsbl, injectable,quadrivalent, preservative free, pediatricReynold Kuo MD Work Phone: [facility] HospitalPwafit53-61-1937jsxnuanckiolw polysaccharide (groups A, C, Y and W-135) diphtheria toxoid conjugate vaccine (MCV4P)Reynold Kuo MD Work Phone: [facility] HospitalXdrgng22-67-3853amotmdaon, seasonal, injectableReynold Kuo MD Work Phone: [facility] Xjdsgr54-29-4167yryanan toxoid, reduced diphtheria toxoid, and acellular pertussis vaccine, adsorbedReynold Kuo MD Work Phone: [facility] HospitalIsxfmx31-76-6625uahglurfh A vaccine, pediatric/adolescent dosage, 2 dose scheduleReynold Kuo MD Work Phone: [facility] Eoaucs00-46-1304jhclihbnl A vaccine, pediatric/adolescent dosage, 2 dose scheduleReynold Kuo MD Work Phone: [facility] HospitalFnqxrx14-76-3185okvodmctz virus vaccineReynold Kuo MD Work Phone: [facility] Nvbklj88-74-1261lifiefzbkc, tetanus toxoids and acellular pertussis vaccineReynold Kuo MD Work Phone: [facility] Kpkbil53-32-1456KVaQ-ovdsmmsid B and poliovirus vaccineReynold Kuo MD Work Phone: [facility] Nqhoxn86-15-4573aemfeeg, mumps and rubella virus Robyn Kuo MD Work Phone: [facility] Ekwrtd65-01-4337gvbzaobihr, tetanus toxoids and acellular pertussis vaccine, unspecified formulationReynold Kuo MD Work Phone: [facility] Txkrnl55-66-4935eployacvdlc influenzae type b vaccine, conjugate unspecified formulationReynold Kuo MD Work Phone: [facility] Hxxvpu51-80-2439lpqbuqmdv B vaccine, pediatric or pediatric/adolescent dosageReynold Kuo MD Work Phone: [facility]04-15-2003measles, mumps and rubella virus vaccineReynold Kuo MD Work Phone: [facility] Hfgimo09-84-2852hvavnrvgnb vaccine, unspecified formulationReynold Kuo MD Work Phone: [facility] HospitalZwsftd92-57-0972utufmqukg virus Robyn Kuo MD Work Phone: [facility] Ydkktd70-80-5772zznpvwjsvv, tetanus toxoids and acellular pertussis vaccine, unspecified formulationReynold Kuo MD Work Phone: [facility] HospitalDvlioq87-39-9226qjedynpedtj influenzae type b vaccine, conjugate unspecified formulationReynold Kuo MD Work Phone: [facility] HospitalPntvwz18-06-3858ykiilrgjuz vaccine, unspecified formulationReynold Kuo MD Work Phone: [facility] HospitalWslihy44-76-3635wtrfefxps B vaccine, pediatric or pediatric/adolescent dosageReynold Kuo MD Work Phone: [facility] HospitalUbwscq51-13-7535carwnknmd B vaccine, pediatric or pediatric/adolescent dosageReynold Kuo MD Work Phone: [facility] Payers DatePayer CategoryPayerPolicy ID2023Self-pay2021MedicaidMEDICAID [facility] MEDICAID [id number] 2021-Present [phone] [address] [place] [address] [id number]. MedicareMEDICARE MEDICARE A AND B [id number] 2018-Present [phone] [address] [address] [place] [address] [id number] 2018Medicare [id number] 2018Medicaid [id number] 2.16.840.1.659196.3.57[id number] 2.16.840.1.522497.3.57[id number] 2.16.840.1.531751.3.57[id number] 2.16.840.1.632078.3.57[id number] 2.16840.1.695204.3.57[id number] 2.16840.1.852364.3.57[id number] 2.16840.1.589807.3.579.[id number] 2.840.1.415226.3.57[id number] 2.840.1.251785.3.57[id number] 2.840.1.113119.3.57[id number] 2.840.1.836932.3.57[id number] 2.840.1.289205.3.57[id number] 2.840.1.242511.3.579.2.441014-77-7657Bwvnszs17283601 2.840.1.537071.3.57[id number] 2.840.1.156493.3.579.[id number] 2.840.1.683585.3.579.[id number] 2.840.1.245935.3.579.[id number] 2.16.840.1.147322.3.579.[id number] 2.16.840.1.636196.3.57[id number] 2.16.840.1.955104.3.57[id number] 2.16.840.1.958074.3.57[id number] 2.16.840.1.856643.3.57[id number] 2..840.1.331850.3.57[id number] 2.840.1.442555.3.57[id number] 2..840.1.706783.3.579.2.1286 [id number] 1960Medicare [id number] Social History DateTypeDetailFacilityStart: 03-01-2015 End: 25-29-9965Hdocyjf smoking status NHISNever smoked tobaccoCommunity Regional Medical Center Start: 03-01-2015 End: 10-51-0159Ivkausx use and exposureSmokeless tobacco non-userGuernsey Memorial Hospitaltart: 44-24-4013Kcxoexz intakeCurrent non-drinker of alcohol (finding) [facility]tart: 99-96-5854Skm Assigned At BirthNot on fileGuernsey Memorial Hospitaltart: 03-18-2022 End: 47-36-3773Wnaiixcm to SARS-CoV-2 (event)Not sureGuernsey Memorial Hospitaltart: 01-07-2024 End: 90-57-6745Jndyqikfx beverage intakeEx-drinker (finding)[facility] Start: 11-20-2020 End: 20-77-1299Qpjckio of Social functionProMarkLogic SystemStart: 11-20-2020 End: 24-10-0405Fjypvyp use panelWright Memorial HospitalStart: 01-26-2024 End: 21-25-4277Gkphztc intakeLifetime non-drinker (finding)ProMAccelereach SystemHas the electric, gas, oil, or water company threatened to shut off services in your home in past 12MoNoProMedica Health SystemHow often to you have a drink containing alcohol?NeverProMediGemvara.com SystemHow many standard drinks containing alcohol do you have on a typical day?Patient does not drinkProMarkLogic SystemStart: 53-02-4319WuzUkwr (finding)ProMSWIIM Systemtart: 71-94-3566Hse Assigned At [facility] Goals DatePatient GoalDesired Activity/StatePersonal health goalComment on above: Evaluation of progress towards goal: Soren Conner, states back to prison. Personal health goalPersonal health goal Clinical Notes 07-12-2021 to 08-30-2025 Note Date & QmphAtdzNodricbp32-37-3681 NoteHNO ID: [id number] Author: CRISTAL NAVA APRN.DIAGNOSTIC TECHNOLOGIST Service: ? Author Type: Nurse Practitioner Type: Progress Notes Filed: 08/30/2025 15:14 Note Text: Participation of a fellow, resident, medical student, or advanced practice provider student in performing the sensitive examination was discussed with the patient or authorized employee's representative. The patient or authorized employee's representative has agreed to proceed with the sensitive examination.[facility] 08-26-2025 NoteHNO ID: [id number] Author: SHANITA LOPEZ RT(R) Service: ? Author Type: Technologist Type: Progress Notes Filed: 08/26/2025 14:44 Note Text: Radiology Service Progress Note PATIENT NAME: Rj Colbert DATE OF SERVICE: August 26, 2025 TIME: 2:44 PM PATIENT IDENTITY VERIFICATION COMPLETED USING TWO (2) IDENTIFIERS: Name and Date of confirmed by patient verbally. FALL SCREENING: Has the patient had 2 falls in the last year or 1 fall with injury or currently using an Ambulatory Assistive Device (Walker, Cane, Wheelchair, Crutches, etc.)? No PATIENT GENDER DATA: Assigned male at PATIENT RELEVANT IMPLANT DATA REVIEWED: Not Applicable PATIENT PRESENTS WITH AN IMPLANTABLE OR ATTACHED PAPER TWISTER: No RADIOLOGY DEPARTMENT: General X-ray: Exam(s) Completed: Abdomen X-Ray: Acute Abdomen Series PERIPHERAL IV DATA: Not applicable SIGNED BY: Shanita Lopez, RT(R) August 26, 2025 2:44 [facility]10-30-2025 NoteHNO ID: [id number] Author: CORNELIUS GREWAL JR DO Service: ? Author Type: Physician Type: Progress Notes Filed: 08/26/2025 14:37 Note Text: Patient presents with: Constipation Constipation HPI: Rj Colbert, 25 year old male, with a history of rectal prolapse, accompanied by his guardian, who provides additional history. He presents with explosive, liquid diarrhea and fecal incontinence, which have been ongoing since starting twice daily Miralax for chronic constipation. He reports 2-3 episodes of explosive, watery diarrhea per week, often occurring during sleep, resulting in soiling of his bed and clothing. He is typically unaware of these episodes until after they occur. His guardian notes that he is supposed to take Miralax twice daily, but even with once-daily dosing, he experiences frequent, uncontrolled diarrhea. He reports no associated abdominal pain, but does note a mild burning sensation with straining if he skips Miralax. He denies hematochezia. He has undergone two colonoscopies in the past 2 months, both of which were incomplete due to inadequate bowel preparation. He has not had any recent abdominal imaging. - (06/26/2025) Colonoscopy: Inadequate bowel preparation. - Colonoscopy: Inadequate bowel preparation. Past GI workup 07/26/25 office visit notes per TOMAS Quezada, as follows: History of Present Illness: The patient is a 25-year-old male with chronic constipation and recurrent rectal prolapse, presenting for evaluation of ongoing rectal prolapse and constipation. He is accompanied by his business continuity management director, who provides additional history. He reports a history of rectal prolapse, for which he underwent surgical resection approximately 2 years ago in [place] by Dr. Laila Nunez. 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 Had a rectal prolapse surgery in [place] 2 years ago (Dr. Nunez [facility]) 05/02/25 Colonoscopy was done for Rectal bleeding, per Veronica Galo, DO - Preparation of the colon was unsatisfactory. - Lax anal sphincter tone found on digital exam. - Congested, erythematous, eroded, friable (with contact bleeding), inflamed and ulcerated mucosa in the mid rectum. Biopsied. - The examination was otherwise normal Path as follows: Rectum, biopsy: Acute inflammation with extensive ulceration. GMS special stain is negative for fungal organisms. CMV immunostain is negative. HSV immunostain is negative. 07/19/21 CT ABD/PEL WO IVCON IMPRESSION: Chronic proctitis. Worsening chronic constipation with large amounts of stool in the proximal, mid: Without evidence for obstruction. Component 06/09/25 05/11/25 03/30/25 03/01/25 02/02/25 01/04/25 TBH WBC 5.2 6.5 6.3 5.4 6.9 6.1 TBH RBC 5.53 5.95 5.47 6.15 High 6.07 5.89 TBH HGB 11.9 Low 12.5 Low 11.6 Low 12.4 Low 12 Low 11.5 Low TBH HCT 40.2 Low 43.6 39.2 Low 43.3 42.1 40.7 Low TBH MCV 72.7 Low 73.3 Low 71.7 Low 70.4 Low 69.4 Low 69.1 Low TBH MCH 21.5 Low 21 Low 21.2 Low 20.2 Low 19.8 Low 19.5 Low TBH MCHC 29.6 Low 28.7 Low 29.6 Low 28.6 Low 28.5 Low 28.3 Low TBH RDW 16.8 High 17.9 High 19.3 High 20.8 High 21.2 High 20.9 High TBH PLT 271 295 304 295 274 256 TBH MPV 10.3 10.4 10.7 9.7 -- 10.3 NEUTROPHILS PERCENT AUTO 55.2 64.7 55.3 58.1 66.4 65.5 LYMPHOCYTES PERCENT AUTO 31 21.7 26.2 28.8 21.4 20.4 Low MONOCYTES PERCENT AUTO 9.9 10.7 11.8 8.9 9.5 12.7 High TBH EO % 2.9 2.1 5.4 3.3 1.9 0.7 Low BASOPHILS PERCENT AUTO 0.8 0.6 1 0.7 0.7 0.5 IMMATURE GRANULOCYTES PCT AUTO 0.2 0.2 0.3 0.2 0.1 0.2 NEUTROPHILS ABSOLUTE AUTO 2.9 4.2 3.5 3.1 4.6 4 LYMPHOCY (more content not included)...[facility]09-30-2025 Note HNO ID: [id number] Author: CHARLEY MCCLELLAND RN Service: ? Author Type: Registered Nurse Type: Progress Notes Filed: 07/26/2025 11:13 Note Text: AMBULATORY PATIENT EDUCATION NOTE DIAGNOSIS: rectal prolapse/ constipation READINESS TO LEARN COGNITIVE ABILITY: Alert and oriented MOTIVATION TO LEARN: Eager FAMILY SUPPORT: High - Very involved in pt care (in a prison) PHYSICAL LIMITATIONS AFFECTING LEARNING: None METHOD OF INSTRUCTION: Verbal and Written instruction - handouts provided SUPPLEMENTAL MATERIAL: -Anorectal Manometry- call office to schedule [phone] -Pelvic floor physical therapy - handout with phone numbers provided to schedule at location of choice - GI consult with Dr Cornelius Grewal for constipation Patient acknowledges and understands. They have contact phone number for further concerns. [phone] TIME SPENT: 15 min Electronically Signed By: Charley Mcclelland RN, BSN DDSI Specialty Care CoordinatorKettering Health – Soin Medical Center09-30-2025 NoteHNO ID: [id number] Author: JUANA HARPER MD Service: ? Author Type: Physician Type: Progress Notes Filed: 07/26/2025 14:23 Note Text: COLORECTAL SURGERY July 26, 2025 Rj Colbert This consult was requested by Dr. Benson Weiss and my final recommendations will be communicated to the requesting health care provider by way of the shared medical record for internal providers or letter via the [employer] for external providers. Recording using [employer]ela software for draft documentation of the visit was discussed with the patient/authorized employee's representative; all questions welcomed and answered. Patient/authorized employee's representative agreed to proceed Chief Complaint: rectal prolapse History of Present Illness: The patient is a 25-year-old male with chronic constipation and recurrent rectal prolapse, presenting for evaluation of ongoing rectal prolapse and constipation. He is accompanied by his business continuity management director, who provides additional history. He reports a history of rectal prolapse, for which he underwent surgical resection approximately 2 years ago in [place] by Dr. Laila Nunez. 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 Had a rectal prolapse surgery in [place] 2 years ago (Stacie Frazierica) Current smoker: no Prior pelvic floor PT: [...] or Patient's Authorized Repre (more content not included)...[facility]09-30-2025 Note Education ([facility]) RJ COLBERT ([id number]) 2000 M Date Time Provider Department 07/26/25 CHARLEY MCCLELLAND [facility] Reason for Visit: Rectal Prolapse [1404] During [...] day. Encounter Status:Closed by CHARLEY MCCLELLAND on 07/26/25[facility] 06-16-2025 Telephone encounter Note* Telephone Encounter - Benson Weiss MD - 06/16/2025 8:03 AM EDT New referral in chart. [facility] HospitalQhmeotffdr81-75-0220 Miscellaneous Notes* Telephone Encounter - Benson Weiss MD - 06/16/2025 8:03 AM EDT New referral in chart. * Telephone Encounter - Katty Samaniego - 06/15/2025 10:18 AM EDT Rj Antunez's storehouse clerk called. She is requesting a referral to [facility] for a colonoscopy. Rj is working with Dr. Gaol but has not been successful preparing properly for the last 2 colonoscopy procedures they have done. He is having bleeding issues. documented in this encounterWright Memorial HospitalUqeojgfnvs20-51-9046 Telephone encounter Note* Telephone Encounter - Katty Samaniego - 06/15/2025 10:18 AM EDT Santi Hobson Rj's storehouse clerk called. She is requesting a referral to [facility] for a colonoscopy. Rj is working with Dr. Galo but has not been successful preparing properly for the last 2 colonoscopy procedures they have done. He is having bleeding issues. [facility] HospitalLhixjxbpbt48-69-3452 Telephone encounter Note* Telephone Encounter - Benson Weiss MD - 05/19/2025 6:16 PM EDT Sent [facility] HospitalJuvcdenoep26-36-5619 Miscellaneous Notes* Telephone Encounter - Benson Weiss MD - 05/19/2025 6:16 PM EDT Sent * Telephone Encounter - TARIK DICKERSON - 05/19/2025 3:53 PM EDT Patient is looking for a script for proctofoam. Patient is using 2 times daily in rectum. Was originally ordered by Dr Galo, but he states it now needs to come from PCP.clm documented in this encounterWright Memorial HospitalTaqobjwgqf50-40-7595 Telephone encounter Note* Telephone Encounter - TARIK DICKERSON - 05/19/2025 3:53 PM EDT Patient is looking for a script for proctofoam. Patient is using 2 times daily in rectum. Was originally ordered by Dr Galo, but he states it now needs to come from PCP.clm [place] [address]Nppieezfjv11-35-1015 Miscellaneous Notes* Telephone Encounter - Audrey Huntley CMA - 05/11/2025 7:20 AM EDT ----- Message from Veronica Galo DO sent at 05/11/2025 7:20 AM EDT ----- Please call prison attendants and let him know that he has a acute inflammation of the extensive ulceration and he should continue the Proctofoam HC as prescribed. Thanks, Dr. Wheeler ----- Message ----- From: Lab, Background User Sent: 05/10/2025 5:28 PM EDT To: Veronica Galo DO * Telephone Encounter - Audrey Huntley CMA - 05/11/2025 7:20 AM EDT Spoke with patient's physician assistant primary care Santi regarding pathology results. Santi verbally understood and questions were answered to the best of my ability. Santi would like to know what is causing this inflammation. I informed Santi I would send Dr. Galo her question and call her back as soon as I received results. Will have Laila our DIAGNOSTIC TECHNOLOGIST send another prescription of Proctofoam. Informed Santi that any refills will need to go through Dr. Weiss's office. documented in this encounterOhioHealth Van Wert Hospital07-16-2025 Telephone encounter Note* Telephone Encounter - Audrey Huntley CMA - 05/11/2025 7:20 AM EDT ----- Message from Veronica Galo DO sent at 05/11/2025 7:20 AM EDT ----- Please call prison attendants and let him know that he has a acute inflammation of the extensive ulceration and he should continue the Proctofoam HC as prescribed. Thanks, Dr. Wheeler ----- Message ----- From: Lab, Background User Sent: 05/10/2025 5:28 PM EDT To: Veronica Galo DO [facility]07-16-2025 Telephone encounter Note* Telephone Encounter - Audrey Huntley CMA - 05/11/2025 7:20 AM EDT Spoke with patient's physician assistant primary care Santi regarding pathology results. Santi verbally understood and questions were answered to the best of my ability. Santi would like to know what is causing this inflammation. I informed Santi I would send Dr. Galo her question and call her back as soon as I received results. Will have Laila hsu CNP send another prescription of Proctofoam. Informed Santi that any refills will need to go through Dr. Weiss's office. [facility]07-01-2025 History of Present illness Narrative* Laila Gonzalez APRN-HUSAM - 04/26/2025 11:30 AM EDT Images from the original note were not included. Chief Complaint: Rectal bleeding History of Present Illness Rj Colbert is a 24 y.o. male who presents to the office today for rectal bleeding. He [facility] and staff member is present with [...] Medical History: Diagnosis Date Anxiety Bipolar disorder ([facility]) Cognitive impairment Panic disorder Schizoaffective disorder ([facility]) Schizophrenia ([facility]) Past Surgical History: Procedure Laterality Date ABDOMINAL SURGERY COLONOSCOPY DIAGNOSTIC / SCREENING N/A 03/24/2025 Performed by Veronica Galo DO at [facility] RECTOSIGMOIDECTOMY PERINEAL N/A 01/09/2024 Performed by Pushpa Silva MD at [facility] No Known Allergies Current Outpatient Medications: acetaminophen [...] before bedtime., Disp: , Rfl: peg 3350-sod sulf,lglb-htt-itg 178.7-7.3-0.5 gram recon soln, Take 1 kit [...] patient/family/caregiver Referring and communicating with other health medicare contact specialist Rectal bleeding [K62.5] YAN GRIGSBY [facility] Physicians General Surgery [place] This note was created with the assistance of a speech recognition program. While intending to generate a timely document that accurately reflects the content of the visit, no guarantee can be provided that every grammatical or spelling mistake has been or will be identified or corrected. Thank you for your understanding. YAN Grigsby 04/26/25 1202 documented in this encounterOhioHealth Van Wert Hospital07-01-2025 Nurse Note* Perioperative Nursing Note - Joy Pablo RN - 04/26/2025 10:29 AM EDT Preoperative Education Checklist- General Surgery date: 05/02/25 Surgery time: 730a Arrival time: 610a 1. Bring a photo ID and your insurance card with you the day of surgery. You will check in at the main lobby of the [facility]- registration desk is straight ahead as soon as you walk in. Tell them you are here for surgery. 2. If you have a Living Will/Durable Power of Senior Technical Business Analyst for Health Care that is not on [...] after you have bathed. 5. NO nail malagasy/acrylic on at least one finger. If you are having a hand, wrist or foot surgery then all nail malagasy and artificial/acrylic nails must be removed from [...] please call the Preadmission Testing office at [phone], Mon.-Fri. 7 a.m.-3 p.m. Leave a voicemail [...] prescribed, DO NOT take morning of procedure [facility] Quietly [id number] Miscellaneous Notes* Perioperative Nursing Note - Joy Pablo RN - 04/26/2025 10:29 AM EDT Preoperative Education Checklist- General Surgery date: 05/02/25 Surgery time: 730a Arrival time: 610a 1. Bring a photo ID and your insurance card with you the day of surgery. You will check in at the main lobby of the [facility]- registration desk is straight ahead as soon as you walk in. Tell them you are here for surgery. 2. If you have a Living Will/Durable Power of Senior Technical Business Analyst for Health Care that is not on [...] after you have bathed. 5. NO nail malagasy/acrylic on at least one finger. If you are having a hand, wrist or foot surgery then all nail malagasy and artificial/acrylic nails must be removed from [...] please call the Preadmission Testing office at [phone], Mon.-Fri. 7 a.m.-3 p.m. Leave a voicemail [...] take morning of procedure documented in this encounterOhio[facility] Miscellaneous Notes* Telephone Encounter - Audrey Maldonado CMA - 04/04/2025 9:19 AM EDT ----- Message from Veronica Galo DO sent at 04/04/2025 8:14 AM EDT ----- Please let patient know that all biopsies were negative. Thanks, Dr. Wheeler ----- Message ----- From: Lab, Background User Sent: 04/02/2025 1:09 PM EDT To: Veronica Galo DO * Telephone Encounter - Audrey Maldonado CMA - 04/04/2025 9:19 AM EDT Spoke with patient's physician assistant primary care Santi regarding pathology results. Santi verbally understood with no further questions. documented in this encounterOhio[facility]06-09-2025 Telephone encounter Note* Telephone Encounter - Audrey Maldonado CMA - 04/04/2025 9:19 AM EDT ----- Message from Veronica Galo DO sent at 04/04/2025 8:14 AM EDT ----- Please let patient know that all biopsies were negative. ThanksDr. Wheeler ----- Message ----- From: Lab, Background User Sent: 04/02/2025 1:09 PM EDT To: Veronica Galo DO [facility]06-09-[facility] Telephone encounter Note* Telephone Encounter - Audrey Maldonado CMA - 04/04/2025 9:19 AM EDT Spoke with patient's physician assistant primary care Santi regarding pathology results. Santi verbally understood with no further questions. [facility]05-19-[facility] History of Present illness Narrative* Laila Gonzalez, KIKO-HUSAM - 03/14/2025 11:30 AM EDT Images from the original note were not included. Chief Complaint: Rectal bleeding History of Present Illness Rj Colbert is a 24 y.o. male who presents to the office today for rectal bleeding. He [facility] and staff member is present with [...] 01/09/2024 Performed by Pushpa Silva MD at [facility] No Known Allergies Current Outpatient Medications: acetaminophen [...] before bedtime., Disp: , Rfl: peg 3350-sod sulf,cwat-hgj-fti 178.7-7.3-0.5 gram recon soln, Take 1 kit [...] patient/family/caregiver Referring and communicating with other health medicare contact specialist Rectal bleeding [K62.5] YAN GRIGSBY [facility] Physicians General Surgery [place] This note was created with the assistance of a speech recognition program. While intending to generate a timely document that accurately reflects the content of the visit, no guarantee can be provided that every grammatical or spelling mistake has been or will be identified or corrected. Thank you for your understanding. YAN Grigsby 03/14/25 1158 documented in this encounterOhioHealth [facility]03-14-2025 History of Present illness Narrative* YAN Grigsby - 01/07/2025 10:30 AM EDT Images from the original note were not included. Chief Complaint: Rectal bleeding History of Present Illness Rj Colbert is a 24 y.o. male who presents to the office today for rectal bleeding. He lives in [facility] and staff member is present with [...] iswhat bleeds. Nothing visible on physical exam. Review [...] 01/09/2024 Performed by Pushpa Silva MD at [facility] No Known Allergies Current Outpatient Medications: acetaminophen [...] Objective Physical Exam Exam conducted with a asphalt paving foreman present. Constitutional: General: He is not in [...] patient/family/caregiver Referring and communicating with other health medicare contact specialist Rectal bleeding [K62.5] YAN GRIGSBY [facility] Physicians General Surgery [place] This note was created with the assistance of a speech recognition program. While intending to generate a timely document that accurately reflects the content of the visit, no guarantee can be provided that every grammatical or spelling mistake has been or will be identified or corrected. Thank you for your understanding. YAN Grigsby 01/07/25 1105 documented in this [facility]03-14-2025 Miscellaneous Notes* Addendum Note - YAN Grigsby - 01/07/2025 10:30 AM EDT Addended by: LAILA GONZALEZ on: 01/07/2025 11:05 AM Modules accepted: Orders documented in this encounterOhioHealth [facility]03-14-2025 Note* Addendum Note - YAN Grigsby - 01/07/2025 10:30 AM EDTAddended by: LAILA GONZALEZ on: 01/07/2025 11:05 AM Modules accepted: Orders [facility]09-18-[facility] History of Present illness Narrative* Benson Weiss MD - 07/14/2024 10:07 AM EDTAssociated Problem(s): Seasonal allergic rhinitis due to pollen Symptoms controlled with medication and continue. * Benson Weiss MD - 07/14/2024 10:07 AM EDTAssociated Problem(s): Chronic schizophrenia (CMS/HCC) No behavior problems and follow up with psychiatry. * Benson Weiss MD - 07/14/2024 10:07 AM EDTAssociated Problem(s): Chronic constipation BM every few days and resume daily fiber supplement. * Benson Weiss MD - 07/14/2024 9:30 AM EDT Images from the original note were not included. Subjective Patient ID: Rj Colbert is a 24 y.o. male who presents for Follow-up (6m f/up). Follow up allergies, constipation, and schizophrenia. History of MR and [facility], accompanied by caregiver. Patient doing well today. Allergies controlled with medication. No congestion orrhinorrhea. No GREEN or sinus pressure. Ears not [...] with medication and continue. documented in this encounterWright Memorial [id number] History of Present illness Narrative* Reynold Kuo MD - 01/26/2024 3:15 PM EDT Images from the original note were not included. [facility] Colorectal Surgery [address] [address] Patient: Rj Colbert Date of : 2000 Encounter Date: 01/26/2024 History of Present Illness: The patient is 23 y.o. male and presents for postoperative follow-up s/p repair of rectal prolapse.Patient presented with incarcerated prolapse. He underwent Altemeier procedure. Patient now followsup. Patient is accompanied by business continuity management director. He is doing well. He denies any [...] activity Reynold Kuo MD documented in this encounterOhioHealth [facility]06-02-2022 Miscellaneous Notes* Telephone Encounter - Charley Mcclelland RN - 03/28/2022 4:13 PM EDT Spoke with the pharmacist and she states that she does not provide food items. She will speak with the nurse at the prison. * Telephone Encounter - Sara BAEZA - 03/28/2022 3:43 PM EDT Pharmacy, [facility], phone , any pharmacist to clarify about carbonate? CALM is prison able to order as food item? Please call to discuss. documented in this encounterCommunity [facility]06-02-2022 Miscellaneous Notes* Telephone Encounter - Sara BAEZA - 03/28/2022 3:45 PM EDT Opened in error documented in this encounterCommunity Regional Medical Center06-02-2022 Miscellaneous Notes* Addendum Note - Arnold Genao MD - 03/28/2022 3:11 PM EDT Addended by: ARNOLD GENAO on: 03/28/2022 03:11 PM Modules accepted: Orders * Addendum Note - Charley Mcclelland RN - 03/28/2022 2:47 PM EDT Addended by: CHARLEY MCCLELLAND on: 03/28/2022 02:47 PM Modules accepted: Orders documented in this encounterCommunity Regional Medical Center06-02-2022 Nurse Note* Charley Mcclelland RN - 03/28/2022 12:12 PM EDT Calm education given for constipation. * Yamile Berrios MA - 03/28/2022 11:10 AM EDT What is the reason for your visit today? Established patient presents for hematochezia. Who is your referring physician? Are you having poor oral intake? NO Have you had unintentional weight loss of 15 lbs/7 Kg in the last 3-6 months? NO Bowels: regular Wound: None Temperature: No Drains: No documented in this encounterCommunity Regional Medical Center06-02-2022 History of Present illness Narrative* Arnold Genao MD - 03/28/2022 11:20 AM EDT COLORECTAL SURGERY March 28, 2022 Rj Colbret 21 year old Chief Complaint: hematochezia History of Present Illness: Rj Colbert is a 21 year old male presents to the office for evaluation of hematochezia. Last seen in the office on 11/16/21 with Cristal Nava WATCH HAIRSPRING ASSEMBLER for follow up visit after he underwent [...] exam Anorectal: External exam reveals: see below Leather Coater present: yes Assessment Assessment and Plan: Rj Colbert is a 21 year old male with straining and occasional rectal bleeding. Today, we talked about adding a magnesium supplement CALM to his regimen to decrease straining. I am of the opinion that more surgery is not the best option at this time. Arnold Genao MD Colorectal Surgery documented in this encounterCommunity Regional Medical Center12-22-2021 NoteHNO ID: [id number] Author: Hunter Massey APRN.UNDERWATER HUNTER TRAPPER Service: Anesthesiology Author Type: Nurse Director Translational Type: Anesthesia Procedure Notes Filed: 10/17/2021 8:55 AM Note Text: ANESTHESIOLOGY PROCEDURE NOTE Airway General Information Procedure Start Time/Medication Administration: 10/17/2021 8:49 AM Patient location during procedure: OR Timeout Performed Pre-procedure: timeout performed Consent Obtained: Yes Patient identity confirmed: arm band, care body team member and patient Staffing Anesthesiologist: Michael Martínez MD UNDERWATER HUNTER TRAPPER: Hunter Massey APRN.UNDERWATER HUNTER TRAPPER Performed by: UNDERWATER HUNTER TRAPPER Indications and Patient Condition Preoxygenated: yes Patient [...] October 17, 2021 TIME: 8:54 AM CSN: [id number] NoteHNO ID: [id number] Author: Shanthi Chapman APRN.UNDERWATER HUNTER TRAPPER Service: Anesthesiology Author Type: Nurse Director Translational Type: Anesthesia Procedure Notes Filed: 07/12/2021 10:54 AM Note Text: ANESTHESIOLOGY PROCEDURE NOTE Airway General Information Procedure Start Time/Medication Administration: 07/12/2021 10:48 AM Patient location during procedure: OR Patient identity confirmed: arm band, care body team member and patient Staffing UNDERWATER HUNTER TRAPPER: Shanthi Chapman APRN.UNDERWATER HUNTER TRAPPER Performed by: UNDERWATER HUNTER TRAPPER Indications and Patient Condition Preoxygenated: yes Patient [...] no Airway not difficult SIGNATURE: Shanthi Chapman APRN.UNDERWATER HUNTER TRAPPER PATIENT NAME: Rj Colbert DATE: July 12, 2021 TIME: 10:53 AM CSN: [id number] HospitalEvaluation note* Diagnosis Hematochezia- Primary Blood in stool documented in this encounter [facility] CenterEvaluation [facility]* Diagnosis Seasonal allergic rhinitis due to pollen- Primary Chronic constipation Unspecified constipation Chronic schizophrenia (CMS/HCC) Unspecified schizophrenia, chronic condition documented in this encounter [facility]* Diagnosis Rectal prolapse- Primary [facility] Diagnosis Rectal bleeding- Primary Hemorrhage of rectum and anus Chronic constipation Unspecified constipation Straining during bowel movements Other symptoms involving digestive system [facility] Diagnosis Rectal bleeding- Primary Hemorrhage of rectum and anus Chronic constipation Unspecified constipation Straining during bowel movements Other symptoms involving digestive system [facility] Diagnosis Rectal bleeding- Primary Hemorrhage of rectum and anus Chronic constipation Unspecified constipation Straining during bowel movements Other symptoms involving digestive system [facility]* Diagnosis Proctitis Other specified disorder of rectum and anus [facility]* Diagnosis Chronic constipation- Primary Unspecified [...] Date Resolution Status Admit Date Chronic constipation acuteSeptember 2024 9:28amChronic schizophreniaacuteSeptember 2024 9:28amRectal prolapseacuteSeptember 2024 9:28amSeasonal allergic rhinitis due to pollenacuteSept2024 9:28am [facility] Work Phone: InstructionsNot on filedocumented in this encounter [facility] SystemInstructions* Attachments The following attachments cannot be sent through Care Everywhere. * Constipation in adults (Samoan) documented in this encounterProMedica Health SystemInstructionsNot on file documented in this encounterProMedica Health SystemInstructionsNot on file documented in this encounterProMedica Health SystemInstructionsNot on file documented in this encounterProMedica Health SystemInstructionsNot on file documented in this encounterProMedica Health SystemInstructionsNot on file documented in this encounterProMedica Health SystemReason for referral (narrative)No reason for referral information availablePaulding County Hospital Work Phone: Summary Purpose Family History No Family History Records FoundNo Family History Records FoundNo Family History Records FoundNo Family History Records FoundNo Family History Records FoundNo Family History Records FoundNo Family History Records FoundNo Family History Records FoundNo Family History Records Found Advance Directives No Advanced Directives Records FoundDocuments on File TypeDate RecordedPatient RepresentativeExplanationAdvance Directive(s)07/09/2021 9:04 AMCode StatusDate ActivatedDate InactivatedCommentsFull Code01/09/2024 4:52 AM01/10/2024 3:12 PMDate ActivatedDate InactivatedComments01/09/2024 4:52 AM 01/10/2024 3:12 PMDate ActivatedDate InactivatedComments01/09/2024 4:52 AM 01/10/2024 3:12 PM Advance Directive [...] section and content) DATE CREATED AUTHOR 05/01/2018 [facility] DATE CREATED AUTHOR AUTHOR'S ORGANIZ ATION 10/31/2021 [facility] DATE CREATED AUTHOR AUTHOR'S ORGANIZ ATION 04/04/2023 [facility] DATE CREATED AUTHOR AUTHOR'S ORGANIZ ATION 01/27/2024 [facility] DATE CREATED AUTHOR AUTHOR'S ORGANIZ ATION 01/14/2025 [facility] DATE CREATED AUTHOR AUTHOR'S ORGANIZ ATION 01/15/2025 [facility] DATE CREATED AUTHOR AUTHOR'S ORGANIZ ATION 04/28/2025 [facility] DATE CREATED AUTHOR AUTHOR'S ORGANIZ ATION 05/14/2025 [facility] DATE CREATED AUTHOR AUTHOR'S ORGANIZ ATION 09/01/2025 [facility] Source Comments (unrecognize d section and content) In the event this informatio n is protected by the Federal Confidentiality of Alcohol and Drug Abuse Patient Records regulations: The Federal rules restrict any use of the information to criminally investigate or prosecute any alcohol or drug abuse patient.[facility] Medical CenterIn the event this information is protected by the Federal Confidentiality of Alcohol and Drug Abuse Patient Records regulations: The Federal rules restrict any use of the information to criminally investigate or prosecute any alcohol or drug abuse patient.[facility] Medical CenterIn the event this information is protected by the Federal Confidentiality of Alcohol and Drug Abuse Patient Records regulations: The Federal rules restrict any use of the information to criminally investigate or prosecute any alcohol or drug abuse patient.[facility] Reason for Visit (unrecogniz ed section and content) ReasonCommentsEstablished Patient Follow-UpRectal BleedingReasonCommentsOpened In Errorno documentation-errorReasonCommentsMedication Problemmagnesium carbonate? vs? CALMReasonCommentsFollow-up6m f/upReasonCommentsPost-op2 week ReasonCommentsRectal BleedingRECTAL BLEEDING & HISTORY OF HEMORRHOIDS, CAREGIVER/SANTI KNOWS WE NEED TO HAVE GUARDIAN TO SIGNCONSENTSpecialtyDiagnoses / ProceduresReferred By ContactReferred To ContactGeneral Surgery Diagnoses Rectal bleeding History of hemorrhoids Procedures IA OFFICE OUTPATIENT VISIT 60-74 MINS [facility] [id number] (SNOMED CT) - AMB REFERRAL TO GENERAL SURGERY Benson Weiss MD [address] [place] [address] Phone: tel: fax: Megan Ahn MD [address] [place] [address] Phone: tel: fax: Referral IDStatusReasonStart DateExpiration DateVisits RequestedVisits [id number] WAS SEEN ON 01/07/25 - MERY SAID TO FOLLOW UP IN 2 MONTHS - SYMPTOMS ARE ESCALUATING - RECTAL BLEEDING, ETC - NEEDS COLONOSCOPYReasonCommentsFollow-upH & P update repeat colonoscopy on 05/02/[address] Galo - CAREGIVER - GAILReasonOnset Date CommentsMed Rosrki2705/19/2025 Care Teams (unrecognized sec tion and content) Team MemberRelationshipSpecialtyStart DateEnd Date Benson Weiss MD [address] [place] [place] [address] PCP - GeneralFamily Medicine01/07/24Team MemberRelationshipSpecialtyStart DateEnd Date Benson Weiss MD [address] [place] [address] PCP - GeneralFamily Medicine01/07/24Team MemberRelationshipSpecialtyStart DateEnd Date Benson Weiss MD [address] [place] [address] PCP - GeneralFamily Medicine01/07/24Team MemberRelationshipSpecialtyStart DateEnd Date Benson Weiss MD [address] [place] [address] PCP - GeneralFamily Medicine01/07/24Team MemberRelationshipSpecialtyStart DateEnd Date Benson Weiss MD [address] [place] [address] PCP - GeneralFamily Medicine01/07/24Team MemberRelationshipSpecialtyStart DateEnd Date Benson Weiss MD [address] [place] [address] PCP - GeneralFamily Medicine01/07/24 Benson Weiss MD [address] [place] [address] PCP - [facility]12/03/24Team MemberRelationshipSpecialtyStart DateEnd Date Benson Weiss MD [address] [place] [address] PCP - GeneralFamily Medicine01/08/24Team MemberRelationshipSpecialtyStart DateEnd Date Benson Weiss MD PCP - GeneralFamily Medicine01/08/24Team MemberRelationshipSpecialtyStart DateEnd Date Benson eWiss MD [address] [place] [address] PCP - GeneralFamily Medicine01/07/24 Benson Weiss MD [address] [place] [address] PCP - [facility]12/03/24Team MemberRelationshipSpecialtyStart DateEnd Date Benson Weiss MD [address] [place] [address] PCP - GeneralFamily Medicine03/14/25Team MemberRelationshipSpecialtyStart DateEnd Date Benson Weiss MD [address] [place] [address] PCP - GeneralFamily Medicine03/14/25Team MemberRelationshipSpecialtyStart DateEnd Date Benson Weiss MD PCP - GeneralFamily Medicine03/14/25Team MemberRelationshipSpecialtyStart DateEnd Date Benson Weiss MD PCP - GeneralFamily Medicine03/14/25Team MemberRelationshipSpecialtyStart DateEnd Date Benson Weiss MD PCP - GeneralFamily Medicine03/14/25Team MemberRelationshipSpecialtyStart DateEnd Date Benson Weiss MD PCP - GeneralFamily Medicine03/14/25Team MemberRelationshipSpecialtyStart DateEnd Date Benson Weiss MD [address] [place] [address] PCP - [facility]01/07/24 Benson Weiss MD [address] [place] [address] [facility]12/03/24Team MemberRelationshipSpecialtyStart DateEnd Date Benson Weiss MD [address] [place] [address] PCP - [facility]01/07/24 Benson Weiss MD [address] [place] [address] [facility]12/03/24Team MemberRelationshipSpecialtyStart DateEnd Date Benson Weiss MD [address] [place] [address] PCP [facility]01/07/24 Benson Weiss MD [address] [place] [address] [facility]12/03/24 Team Status: Active Member Role Status Dates Benson Weiss MD Primary Care Provider Active Team Status: Active Member Role Status Dates PHYSICIAN NO FAMILY Primary Care Provider Active Start: July 09, 2025 Outside ProviderAttending ProviderActiveStart: July 09, 2025 Team Status: Inactive Member Role Status Dates Benson Weiss MD Primary Care Provider Active S tart: July 15, 2025 End: July 15, 2025[facility] Isela MDAttending ProviderActiveStart: July 15, 2025 End: July 15, 2025 [...] BE BASED ON THE PRIMARY CLINICAL RECORDS. [facility] [facility]. provides no warranty or guarantee of the accuracy or completeness of information in this document.
[2025-09-06 15:43] LABS: Hematocrit 42.0 % (42.0-54.0); Hemoglobin 12.2 g/dL (14.0-18.0); Immature Granulocytes Abs Auto 0.02 10^3/uL (0.00-0.03); Immature Granulocytes Pct Auto 0.3 % (0.0-0.5); Lymphocytes Absolute Auto 1.5 10^3/uL (1.2-3.8); Mean Corpuscular HGB Conc 29.0 g/dL (29.9-35.2); Mean Corpuscular Hemoglobin 21.3 pg (25.9-34.0); Mean Corpuscular Volume 73.4 fL (80.0-94.0); Platelet Count 283 10^3/uL (150-450); Red Blood Count 5.72 10^6/uL (4.70-6.10); White Blood Count 7.4 10^3/uL (4.0-11.0)
== END 2025-09-06 15:02 | disposition home or self-care (01) ==
LOC: LAB 15:02
PROVIDERS: PCP Family Medicine; Visit Provider Registered Nurse Psychiatric/Mental Health
DX: Z79.899 Other long term (current) drug therapy (principal)
CPT/HCPCS: 36415; 85025

== ENCOUNTER 2025-10-10 08:56 | Outpatient (OUT) | payer MEDICARE, MEDICAID, SELFPAY ==
[2025-10-10 09:31] LABS: Hematocrit 42.0 % (42.0-54.0); Immature Granulocytes Abs Auto 0.02 10^3/uL (0.00-0.03); Immature Granulocytes Pct Auto 0.4 % (0.0-0.5); Lymphocytes Absolute Auto 1.0 10^3/uL (1.2-3.8); Mean Corpuscular HGB Conc 28.8 g/dL (29.9-35.2); Mean Corpuscular Hemoglobin 21.6 pg (25.9-34.0); Mean Corpuscular Volume 75.1 fL (80.0-94.0); Platelet Count 249 10^3/uL (150-450); Red Blood Count 5.59 10^6/uL (4.70-6.10); White Blood Count 5.7 10^3/uL (4.0-11.0)
[2025-10-10 11:10] LABS: Hemoglobin 12.1 g/dL (14.0-18.0)
== END 2025-10-10 08:57 | disposition home or self-care (01) ==
PROVIDERS: PCP Family Medicine; Visit Provider Registered Nurse Psychiatric/Mental Health
DX: Z79.899 Other long term (current) drug therapy (principal)
CPT/HCPCS: 36415; 85025